=== PATIENT | female | born 1950 | race Caucasian/White ===

== ENCOUNTER → 2021-01-23 22:08 | Outpatient (CLI) | payer MEDICARE, OTHER, SELFPAY | PROVIDERS: PCP Registered Nurse; Referring Provider Registered Nurse; Visit Provider Registered Nurse | DX: G47.33 Obstructive sleep apnea (adult) (pediatric) (principal) | CPT/HCPCS: 95810 ==

== ENCOUNTER 2023-12-13 10:53 | Emergency (ER) | payer MEDICARE, SELFPAY ==
[2023-12-13 10:53] VITALS: BP 133/72; PULSE 76; RESP 14; TEMP 36.8; O2SAT 98
--- NOTE | 2023-12-13 11:37 | RAD_ITS ---
HISTORY: pain fall. TECHNIQUE: XR Foot Min 3 Views. COMPARISON: None. FINDINGS: BONES : Nondisplaced horizontal fracture of the fifth metatarsal base. Nondisplaced comminuted intra-articular fracture at the base of the fifth proximal phalanx with mild sclerosis. Generalized osteopenia. JOINTS: No dislocation. Mild degenerative change. SOFT TISSUES: Soft tissue swelling. RAD/Foot min 3 Views IMPRESSION: Nondisplaced fractures of the right fifth metatarsal base and proximal phalanx of the fifth toe. Electronically Signed: Maya Johnson MD at 12:22 EDT ,
--- NOTE | 2023-12-13 11:38 | RAD_ITS ---
HISTORY: pain fall. TECHNIQUE: XR Chest 2 Views. COMPARISON: None. FINDINGS: CARDIOMEDIASTINAL BORDERS: Cardiac silhouette within normal limits in size. Mediastinal contour unremarkable with calcification of the aortic knob. LUNGS: Minimal linear atelectasis or scarring in the lung bases. PLEURA: No pleural effusion or pneumothorax seen. OTHER: Mild degenerative changes of the osseous structures. Postoperative changes of the left upper quadrant. RAD/Chest PA and Lateral IMPRESSION: No acute cardiopulmonary process identified. Electronically Signed: Maya Johnson MD at 12:20 EDT ,
[2023-12-13 12:53] VITALS: BP 135/74; PULSE 89; RESP 16; O2SAT 99
--- NOTE | 2023-12-13 13:26 | EKG12_ITS ---
Test Reason : FALL Blood Pressure : / mmHG Vent. Rate : 067 BPM Atrial Rate : 067 BPM P-R Int : 190 ms QRS Dur : 096 ms QT Int : 432 ms P-R-T Axes : 041 004 025 degrees QTc Int : 456 ms Normal sinus rhythm Left ventricular hypertrophy with repolarization abnormality ( [place] product ) Abnormal ECG Confirmed by Wade Hanikns ([id number]), supervising editor trailer MASON FRYE ([id number]) on 12/15/2023 9:28:32 AM Referred By: Confirmed By:Wade Hankins
--- NOTE | 2023-12-13 13:38 | EDS_ITS ---
HPI History of Present Illness Chief Complaint: Lower Extremity Injury Narrative Narrative: Patient is a 73-year-old female with past medical history of hypertension, MARIBEL, hypothyroidism, type 2 diabetes who presented to the emergency department with a chief complaint of left foot pain and right rib pain. Patient states that yesterday she was outside letting her dogs out when she rolled her right ankle noted that she had immediate pain in her right foot and states that she fell and landed on her right ribs as well. She states that she not hit her head did not pass out did not lose consciousness she remembers the entire event. Patient denies any blood thinner medications. She states that she did not have chest pain, shortness of breath, lightheadedness, dizziness prior to her fall. Patient states that it hurts for her to bear weight on her right foot. [facility] Medical History Diabetes type 2, controlled Depression Hypothyroid HTN (hypertension) MARIBEL (obstructive sleep apnea) Home Medications ?Medication ?Instructions ?Recorded ?Last Taken ?Type ondansetron 4 mg disintegrating 4 mg PO Q6H PRN nausea and 12/13/23 Unknown Rx tablet vomiting #14 tabs oxycodone-acetaminophen 5 mg-325 1 tab PO Q6H PRN pain 3 days #12 12/13/23 Unknown Rx mg tablet tabs Allergy/AdvReac Type Severity Reaction Status Date / Time No Known Allergies Allergy Verified 12/13/23 10:54 Social History Smoking Status: Never smoker ROS ROS ED ROS Narrative Constitutional: Denies any fevers, chills, headaches, lightness, dizziness Eyes: Denies change in vision double vision blurry vision Cardiovascular: Denies chest pain or palpitations Respiratory: Denies coughing wheezing shortness of breath Abdomen: Denies abdominal pain nausea vomit diarrhea : Denies any urinary symptoms Neurological: Denies numbness, weakness, tingling Musculoskeletal: Complains of right foot pain as well as right rib pain as noted above Skin: States that she does have some bruising noted to her left elbow from a previous fall denies any or other rashes or lesions EXAM Physical Exam Narrative Exam Narrative: General: Patient lying in bed rest comfortably did not appear to be in acute distress Head: Atraumatic, normocephalic Eyes: PERRL bilateral, EOMI bilateral, no conjunctival injection noted Neck: Soft, supple, trachea midline Cardiovascular: Regular rate and rhythm no murmurs gallops rubs noted Respiratory: Clear to auscultation bilaterally no rales rhonchi or wheeze noted Abdomen: Soft, nondistended, nontender to palpation, bowel sounds present #4 Musculoskeletal: Tenderness to palpation over the right lateral foot and right distal pinky toe. Patient has some tenderness palpation of the right rib cage all other bony prominences palpated and joints taken through full range of motion no pain elicited Extremities: DP pulses +2/4 in the bilateral lower extremities, radial pulses +2/4 in the bilateral upper extremities, no pedal edema noted exam Neurological: Patient was following commands knew that she was at [facility] year is 2023. Sensation grossly intact when compared bilaterally throughout her body Skin: Warm, dry, patient has ecchymosis noted of her lateral left elbow from a previous fall a few days ago she has some ecchymosis noted over the right lateral dorsal aspect of her foot. Const Vital Signs: 12/13/23 10:53 12/13/23 12:53 Temperature 98.3 F Temperature Source Temporal Pulse Rate 76 89 Respiratory Rate 14 16 Blood Pressure 133/72 H 135/74 H Blood Pressure Mean 92 94 Pulse Ox 98 99 Oxygen Delivery Method Room Air Room Air MDM MDM MDM Narrative Medical decision making narrative: Patient is a 73-year-old female who presented to the emerged part with a chief complaint of fall and twisting her right foot with right foot pain. Patient will have workup performed here on the differential diagnose includes but not limited to foot fracture, distal tibia fracture, lateral malleolus fracture, rib fractures. Once workup is obtained reviewed she will be reevaluated. Patient's x-ray of her chest showed no acute cardiopulmonary processes which was reviewed by myself and radiology. Patient's x-ray of her right foot was reviewed by myself and by radiology as well which showed a nondisplaced fracture of the right fifth metatarsal base and proximal phalanx of the fifth toe. Patient's EKG reviewed showed sinus rhythm rate of 67 beats per minutes nonspecific ST changes noted. Did discuss results with the patient and she will be given prescription for Percocet and Zofran. She is advised to use these for severe pain and do not operate anything under influence of these drugs. She was advised to take Tylenol for mild to moderate pain and use the narcotic for breakthrough pain. Patient was offered a walking boot she states that she has several leaves at home and states that she will need crutches which she will be ordered. Patient was given follow-up to podiatry and she was encouraged to follow-up with her family physician outpatient setting. She was advised to return with worsening symptoms or other concerns. She is agreeable this plan she would like to go home all question concerns answered discharged home in stable condition. Radiography Diagnostic Testing: Clinical Impression(s) from Imaging Studies Foot X-Ray 12/13/23 11:37 IMPRESSION: Nondisplaced fractures of the right fifth metatarsal base and proximal phalanx of the fifth toe. Electronically Signed: Maya Johnson MD at 12:22 EDT , Chest X-Ray 12/13/23 11:38 IMPRESSION: No acute cardiopulmonary process identified. Electronically Signed: Maya Johnson MD at 12:20 EDT , Discharge Plan Triage Chief Complaint: Lower Extremity Injury ED Provider: Sotero Lowe Dx/Rx/DC Orders Clinical Impression: Foot fracture, Rib pain on right side Prescriptions: New oxycodone-acetaminophen 5-325 mg tablet 1 tab PO Q6H PRN (Reason: pain) 3 Days Qty: 12 0RF ondansetron 4 mg tablet,disintegrating 4 mg PO Q6H PRN (Reason: nausea and vomiting) Qty: 14 0RF Primary Care Provider: Christine Maria NP Referrals: Christine Maria NP, [employer] ADMINISTRATOR-C [Primary Care Provider] - Tim Coffey DPM [Med Staff - Active Staff] - Activity Restrictions/Additional Instructions: When you get home apply boot that you already have. Use crutches to ambulate tolerated. Use Tylenol for mild to moderate pain and use the narcotic for severe pain take the Zofran with this. Follow-up with the case folder that you referred to as well as your primary care physician in the outpatient setting. Return with worsening symptoms or other concerns. Print Language: Bhutanese Disposition Disposition: Home, Self Care
[2023-12-13] MEDS: Ondansetron ODT 4 MG Tablet PO (13:51)
[2023-12-13] MEDS: HYDROcodone Bitartrate/Apap 5/325 Tablet PO (13:51)
[2023-12-13 14:00] VITALS: BP 128/74; PULSE 64; RESP 16; TEMP 36.6; O2SAT 99
== END 2023-12-13 14:02 | disposition home or self-care (01) ==
PROVIDERS: Emergency Provider Emergency Medicine; PCP Registered Nurse; Visit Provider Emergency Medicine
DX: S92.354A Nondisplaced fracture of fifth metatarsal bone, right foot, initial encounter for closed fracture (principal); E11.9 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s; S92.514A Nondisplaced fracture of proximal phalanx of right lesser toe(s), initial encounter for closed fracture; W18.30XA Fall on same level, unspecified, initial encounter; R07.81 Pleurodynia; I10 Essential (primary) hypertension; E03.9 Hypothyroidism, unspecified; G47.33 Obstructive sleep apnea (adult) (pediatric); F32.A Depression, unspecified; Z79.899 Other long term (current) drug therapy
CPT/HCPCS: 71046; 73630; 93005; 99283

== ENCOUNTER 2023-12-14 14:32 | Emergency (ER) | payer MEDICARE, SELFPAY ==
[2023-12-14 14:35] VITALS: BP 110/80; PULSE 95; RESP 18; TEMP 35.8; O2SAT 100
--- NOTE | 2023-12-14 15:38 | ED.VIS.LOWEX ---
HPI History of Present Illness Chief Complaint: Lower Extremity Injury Narrative Narrative: 73-year-old female seen in the emergency department yesterday, diagnosed with foot fracture status post fall presents with worsening foot pain. She states that she was diagnosed with a fracture of her fifth metatarsal, and of her fifth toe. She has been unable to bear weight on it. She thought she had a walking boot at home, but does not have any. Additionally, she has a walker, but has not been able to use it very well. She presents with worsening foot pain and bilateral rib pain. This was from a fall on both Thursday, and Thursday, 2 and 3 days ago. She states she has been unable to follow-up with podiatry or orthopedics, and states that she tried to arrange for orthopedics follow-up through the [facility], but was unable to until December. [facility] Medical History Diabetes type 2, controlled Depression Hypothyroid HTN (hypertension) MARIBEL (obstructive sleep apnea) Home Medications ?Medication ?Instructions ?Recorded ?Last Taken ?Type ondansetron 4 mg disintegrating 4 mg PO Q6H PRN nausea and 12/13/23 Unknown Rx tablet vomiting #14 tabs oxycodone-acetaminophen 5 mg-325 1 tab PO Q6H PRN pain 3 days #12 12/13/23 Unknown Rx mg tablet tabs Allergy/AdvReac Type Severity Reaction Status Date / Time No Known Allergies Allergy Verified 12/14/23 14:35 Social History Smoking Status: Never smoker ROS ROS ED ROS Narrative Constitutional: No fever, no chills. HEENT: No sore throat. No neck pain. No loss of vision. No rhinorrhea. Cardiovascular: Bilateral rib pain/chest pain. No palpitations. Right pedal edema. Respiratory: No cough, no shortness of breath. Abdominal: No abdominal pain. No nausea. No vomiting. Genitourinary: No dysuria. No hematuria. Musculoskeletal: No myalgias. Positive right foot pain. Unable to bear weight. Neurologic: No headaches. No dizziness. No lightheadedness. Skin: No rash. No change in color. Psychiatric: No depression. No anxiety. EXAM Physical Exam Narrative Exam Narrative: GCS 15. ABCs intact. Focused physical examination demonstrates regular rate and rhythm with no sternal tenderness or crepitance. Lungs are clear to auscultation bilaterally. Abdomen soft nontender with normoactive bowel sounds. Mild swelling right foot. No malleoli tenderness. Const Vital Signs: 12/14/23 14:35 Temperature 96.4 F L Temperature Source Temporal Pulse Rate 95 Respiratory Rate 18 Blood Pressure 110/80 Blood Pressure Mean 90 Pulse Ox 100 Oxygen Delivery Method Room Air MDM MDM MDM Narrative Medical decision making narrative: I reviewed the patient's prior ED visit and imaging. She does have nondisplaced fractures of both the base of the fifth metatarsal, and of the proximal phalanx of the fifth digit on her right foot. I did discuss with her dedicated rib x-rays bilaterally, but she had a chest x-ray yesterday which showed no evidence of pneumothorax or displaced rib fracture. Additionally, EKG was performed yesterday, and I have low concern for cardiac contusion. Patient states that her walker is not helpful, but I am hesitant to give her crutches given her fall risk. I will discuss patient with Dr. Calloway with podiatry to arrange follow-up and see if she should be placed in either a walking boot, postoperative shoe, or Ortho-Glass splint. In discussion with podiatry, patient will be placed in a boot arthrosis. She will be made nonweightbearing on her right foot. He agrees that she should continue use of her walker instead of crutches. She will continue ice and elevation at home. She was told that further narcotic pain medication should come from her primary care provider as she has been written for a few tablets/3 days and was last seen yesterday. I feel she can be discharged safely home with follow-up. Return instructions were reviewed. Disposition is discharged home in stable condition. History & Record Review Discussion w/independent historian: Patient Additional record(s) reviewed:: Prior ED visit Management Discussion w/another healthcare provider: Commercial Lending Vice President (Dr. Calloway) Discharge Plan Triage Chief Complaint: Lower Extremity Injury ED Provider: Benny Carr Dx/Rx/DC Orders Clinical Impression: Foot fracture, Rib pain on right side Instructions: ED Chest Wall Contusion, ED Fracture, Foot Prescriptions: No Action oxycodone-acetaminophen 5-325 mg tablet 1 tab PO Q6H PRN (Reason: pain) 3 Days Qty: 12 0RF ondansetron 4 mg tablet,disintegrating 4 mg PO Q6H PRN (Reason: nausea and vomiting) Qty: 14 0RF Primary Care Provider: Christine Maria NP Referrals: Wade Calloway DPM [Med Staff - Active Staff] - 5-7 Days Christine Maria NP, SENIOR DATA ANALYST-C [Primary Care Provider] - 2 Days Activity Restrictions/Additional Instructions: Follow-up with your primary care provider for more narcotic pain medication. Follow-up with podiatry within the next week. Call the office tomorrow for an appointment. Continue ice and elevation of your right foot. Do not bear weight on your right foot. Continue to use your walker. Print Language: Bangladeshi Disposition Disposition: Home, Self Care
[2023-12-14 16:51] VITALS: BP 122/72; PULSE 83; RESP 17; TEMP 36.7; O2SAT 100
== END 2023-12-14 16:58 | disposition home or self-care (01) ==
PROVIDERS: Emergency Provider Emergency Medicine; PCP Registered Nurse; Visit Provider Emergency Medicine
DX: S92.354A Nondisplaced fracture of fifth metatarsal bone, right foot, initial encounter for closed fracture (principal); E11.9 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s; S92.514A Nondisplaced fracture of proximal phalanx of right lesser toe(s), initial encounter for closed fracture; R07.81 Pleurodynia; W19.XXXA Unspecified fall, initial encounter; I10 Essential (primary) hypertension; E03.9 Hypothyroidism, unspecified; G47.33 Obstructive sleep apnea (adult) (pediatric)
CPT/HCPCS: 99282

== ENCOUNTER 2025-01-28 17:16 | Emergency (ER) | payer MEDICARE, SELFPAY ==
[2025-01-28 17:17] VITALS: BP 131/84; PULSE 90; RESP 18; TEMP 36.6; O2SAT 99
--- OUTSIDE RECORDS SUMMARY | 2025-01-28 17:53 | XMS RPT_ITS | CCD ---
Author Organization [facility] CliniSynh Care Team Providers Care Caustic Room Attendant Name Role Phone Aspen Delgado Unavailable Unavailab le Danny, Aspen Solis Unavailable Unavailab le Li, Alpa Ferraro Unavailable Unavailable DANNY, ASPEN R Unavailable Unavailable DANNY, ASPEN R Unavailable Unavailable Ferraro, Alpa Thersa Unavailable Unavailable DANNY, ASPEN R Unavailable Unavailable DANNY, ASPEN R Unavailable Unavailable Ferraro, Alpa Thersa Unavailable Unavailable ADNNY, ASPEN R Unavailable Unavailable DANNY, ASPEN R Unavailable Unavailable *SELF, REFERRED Unavailable Unavailable Ferraro, Alpa Thersa Unavailable Unavailable DANNY, ASPEN R Unavailable Unavailable DANNY, ASPEN R Unavailable Unavailable Ferraro, Alpa Thersa Unavailable Unavailable DANNY, ASPEN R Unavailable Unavailable *SELF, REFERRED Unavailable Unavailable Ferraro, Alap Thersa Unavailable Unavailable Ferraro, Alpa Thersa Unavailable Unavailable DANNY, ASPEN R Unavailable Unavailable Haagen PHOTOGRAPHIC INTELLIGENCE OFFICER.Christine ROCHA Primary Care Provider Haagen PHOTOGRAPHIC INTELLIGENCE OFFICER.Christine ROCHA Primary Care Provider Kaylen Lindsey DO Marie Unavailable Kurt Eli MD Unavailable Mauricio SAUNDERS, Saniya Unavailable [phone] Andrey Douglas RN, Homa Unavailable Rosalia HAHN Qi Unavailable Kurt Eli MD Unavailable Mauricio SAUNDERS, Saniya Unavailable Andrey Douglas RN, Homa Unavailable Haagen PHOTOGRAPHIC INTELLIGENCE OFFICER.Christine ROCHA Primary Care Provider Haagen PHOTOGRAPHIC INTELLIGENCE OFFICER.Christine ROCHA Primary Care Provider Kaylen Lindsey DO Marie Unavailable Sreedhar MCGRATH, Kurt Unavailable Halderman-Douglas PT, Saniya Unavailable ISABELA , DR. KAYLEN CABELLO Attending Un available HAMIRNA, JULI [facility] Primary Care Unavailable [facility], DR. KAYLEN CABELLO Referring Un available Sissen PSS, Boby Unavailable Unavailable Isabela , Kaylen Cabello Unavailable Sissen PSS, Boby Unavailable Unavailable Donavon Patrciia MD Unavailable Grater PHOTOGRAPHIC INTELLIGENCE OFFICER.CD REACTOR OPERATOR, Rafi Unavailable Halderman-Douglas PT, Saniya Unavailable Sissen PSS, Boby Unavailable Unavailable René RN, Jase Unavailable Donavon Patricia MD Unavailable Grater PHOTOGRAPHIC INTELLIGENCE OFFICER.CD REACTOR OPERATOR, Rafi Unavailable Haljinaman-Douglas PT, Saniya Unavailable René EDWARDS, Jase Unavailable Halderman-Douglas PT, Saniya Unavailable HAAGEN PHOTOGRAPHIC INTELLIGENCE OFFICER-[facility], [facility] Primary Care Physician Isabela , Kaylen Cabello Unavailable Sreedhar MCGRATH, Kurt Unavailable Halderman-Douglas PT, Saniya Unavailable Sissen PSS, Boby Unavailable Unavailable Halderman-Douglas PT, Saniya Unavailable Haagen PHOTOGRAPHIC INTELLIGENCE OFFICER.[facility], [facility] Primary Care Provider WESLY FARMER Attending Unavailable WESLY FARMER Admitting Unavailable CATHY CHRISTINE Primary Care Unavailable YAMILEX SANTOS Referring Unavailable Donavon Patricia MD Unavailable Grater PHOTOGRAPHIC INTELLIGENCE OFFICER.CD REACTOR OPERATOR, Rafi Unavailable Halderman-Douglas PT, Saniya Unavailable Benny Carr Attending Unavailable Haagen, Christine Primary Care Unavailable Haagen, Christine Primary Care Unavailable Sotero Lowe Attending Unavailable René EDWARDS, Jase Schneider Unavailable Haagen PHOTOGRAPHIC INTELLIGENCE OFFICER.CD REACTOR OPERATOR, Christine Primary Care Provider Suppan PHOTOGRAPHIC INTELLIGENCE OFFICER.CD REACTOR OPERATOR, Christine A Unavailable [phone] Dao Caraballo MD Unavailable René EDWARDS, aJse Schneider Unavailable Suppan PHOTOGRAPHIC INTELLIGENCE OFFICER.CD REACTOR OPERATOR, Christine A Unavailable Suppan PHOTOGRAPHIC INTELLIGENCE OFFICER.JOSEFINA, Christine A Unavailable Nba EDWARDS, Lory Unavailable Nba EDWARDS, Lory Unavailable ARIADNE GOMEZ Referring Unavailable HAAGEN, CHRISTINE Primary Care Unavailable HAAGEN, CHRISTINE Referring Unavailable HAAGEN, CHRISTINE Primary Care Unavailable DELFIN KERR Referring Unavailable HAAGEN, CHRISTNIE Primary Care Unavailable SURACE, PETER Referring Unavailable HAAGEN, CHRISTINE Primary Care Unavailable SURACE, PETER Referring Unavailable HAAGEN, CHRISTINE Primary Care Unavailable HAAGEN, CHRISTINE Referring Unavailable HAAGEN, CHRISTINE Primary Care Unavailable GANTA, SNOW Referring Unavailable HAAGEN, CHRISTINE Primary Care Unavailable CURTIS FERGUSON Attending Unavailable HAAGEN, CHRISTINE Primary Care Unavailable HAAGEN, CHRISTINE Primary Care Unavailable ISH HIGGINS Referring Unavailabl e HAAGEN, CHRISTINE Referring Unavailable HAAGEN, CHRISTINE Primary Care Unavailable GANTA, SNOW Attending Unavailable HAAGEN, CHRISTINE Primary Care Unavailable HAAGEN, CHRISTINE Primary Care Unavailable DELFIN KERR Referring Unavailable DELFIN KERR Attending Unavailable HAAGEN, CHRISTINE Primary Care Unavailable MARIMAR WILCOX Attending Unavailable LORETA PANDEY Attending Unavailable HAAGEN, CHRISTINE Primary Care Unavailable HAAGEN, CHRISTINE Primary Care Unavailable JUAN JOSE KEYS Attending Unava ilable HAAGEN, CHRISTINE Referring Unavailable AFSANEH MAHAN Attending Unavailable HAAGEN, CHRISTINE Primary Care Unavailable HAAGEN, CHRISTINE Primary Care Unavailable DELFIN KERR Referring Unavailable DELFIN KERR Attending Unavailable HAAGEN, CHRISTINE Primary Care Unavailable GANTA, SNOW Attending Unavailable HAAGEN, CHRISTINE Primary Care Unavailable GANTA, SNOW Attending Unavailable SELF Referring Unavailable HAAGEN, CHRISTINE Primary Care Unavailable HAAGEN, CHRISTINE Referring Unavailable HAAGEN, CHRISTINE Primary Care Unavailable HAAGEN, CHRISTINE Primary Care Unavailable MARIMAR WILCOX Attending Unavailable HAAGEN, CHRISTINE Primary Care Unavailable HAAGEN, CHRISTINE Referring Unavailable HAAGEN, CHRISTINE Primary Care Unavailable HAAGEN, CHRISTINE Attending Unavailable HAAGEN, CHRISTINE Primary Care Unavailable DELFIN KERR Referring Unavailable HAAGEN, CHRISTINE Primary Care Unavailable DELFIN KERR Attending Unavailable HAAGEN, CHRISTINE Primary Care Unavailable DONAVON PATRICIA Attending Unavailable HAAGEN, CHRISTINE Primary Care Unavailable DELFIN KERR Referring Unavailable HAAGEN, CHRISTINE Primary Care Unavailable ANTHONY ABRAHAM Referring Unavailable HAAGEN, CHRISTINE Primary Care Unavailable HAAGEN, CHRISTINE Primary Care Unavailable HAAGEN, CHRISTINE Primary Care Unavailable ISH HIGGINS Attending Unavailabl e ISH HIGGINS Admitting Unavailabl e ISH HIGGINS Attending Unavailabl e HAAGEN, CHRISTINE Primary Care Unavailable ISH HIGGINS Attending Unavailabl e HAAGEN, CHRISTINE Primary Care Unavailable ISH HIGGINS Attending UnavailDELFIN Silva Referring Unavailable HAAGEN, CHRISTINE Primary Care Unavailable KELSIE-LINDSEY YIRKA Referring Unavailable HAAGEN, CHRISTINE Primary Care Unavailable KELSIE-LINDSEY YIRKA Referring Unavailable HAAGEN, CHRISTINE Primary Care Unavailable ISH HIGGINS Attending Unavailabl e HAAGEN, CHRISTINE Primary Care Unavailable Allergies Allergy Classification Reported Allergen(s) Allergy Type Date of Onset Reaction(s) Facility Acetaminophen / HYDROcodone (4 sources) Acetaminophen / HYDROcodone Drug Allergy 0 Itching [facility] (20 sources) Acetaminophen / HYDROcodone; Translations: [acetaminophen-hyd rocodone] Drug Allergy 0 Itching, Itching (finding) [facility] Medications Current Medications Medication Drug Class(es) Dates Sig (Normalized) Sig (Original) acetaminophen 500 mg oral tablet (20 sources) Start: 10-11-2023 End: 10-25-2023 take 2 tablets by mouth every eight hours as needed for pain acetaminophen (TYLENOL EXTRA STRENGTH) 500 mg tablet Indications: Pain of right hip , Rib pain on right side Take 2 tablets by mouth every 8 hours as needed for pain for up to 14 days. 42 tablet 0 10/11/2023 10/25/2023 Active Start: 07-28-2023 End: 08-12-2023 take 2 tablets by mouth every eight hours acetaminophen (TYLENOL) 500 mg tablet Take 2 tablets by mouth every 8 hours. 30 tablet 0 07/28/2023 08/12/2023 Discontinued (Course of therapy completed) Start: 11-04-2022 Tylenol Extra Strength 500 mg oral tablet Dose : 1,000 mg = 2 tab(s), Oral, q6hr, PRN as needed for pain, 0 Refill(s) Start Date: 11/04/22 Status: Ordered Start: 09-16-2022 End: 02-02-2023 take 2 tablets by mouth every eight hours as needed acetaminophen (TYLENOL) 500 mg tablet Take 2 tablets by mouth every 8 hours as needed for pain. 90 tablet 09/16/2022 02/02/2023 Discontinued Start: 07-08-2022 take 2 tablets by mo uth every eight hours as needed acetaminophen (TYLENOL) 500 mg tablet Take 2 tablets by mouth every 8 hours as needed for pain. 90 tablet 0 07/08/2022 Active Start: 11-19-2021 End: 01-29-2022 take 2 tablets by mouth every eight hours as needed acetaminophen (TYLENOL) 500 mg tablet Take 2 tablets by mouth every 8 hours as needed for pain. 90 tablet 0 11/19/2021 01/29/2022 Discontinued Comment on above: Take 2 tablets by mo uth every 8 hours as needed for pain. acetaminophen 325 mg / oxyCODONE hydrochloride 5 mg oral tablet (13 sources) Opioid Agonist Start: 12-15-2023 End: 12-22-2023 take 1 tablet by mouth every six hours as needed for pain oxyCODONE-acetamino phen (PERCOCET) 5-325 mg tablet Indications: Closed fracture of right foot with routine healing, subsequent encounter Take 1 tablet by mouth every 6 hours as needed for pain for up to 7 days. 28 tablet 12/15/2023 12/22/2023 Active Start: 09-12-2023 End: 09-17-2023 take 1 tablet by mouth every eight hours as needed for pain oxyCODONE-acetaminophen (PERCOCET) 5-325 mg tablet Indications: Closed nondisplaced fracture of proximal phalanx of lesser toe of right foot, initial encounter Take 1 tablet by mouth every 8 hours as needed for pain for up to 5 days. 15 tablet 0 09/12/2023 09/17/2023 Active Start: 12-01-2022 End: 12-06-2022 acetaminophen-oxyCODONE 325 mg-5 mg oral tablet Dose = 1 tab(s), Oral, TID, PRN Pain, scale 4-10, X 5 day(s), # 15 tab(s), 0 Refill(s), [facility]acy: [id number], Postoperative pain, 157.5, cm, 11/28/22 3:25:00 EDT, Height, 63.6, kg, 11/28/22 3:25:00 EDT, Dosing Weight Start Date: 12/01/22 Stop Date: 12/06/22 Status: Ordered Start: 11-26-2022 End: 12-03-2022 take 1 tablet by mouth every six hours as needed for pain Percocet 5 mg-325 mg oral tablet Dose = 1 tab(s), Oral, q6h, PRN Pain, X 7 day(s), # 28 tab(s), 0 Refill(s), Pharmacy: [facility], Postoperative pain, 157.5, cm, 11/26/22 9:24:00 EDT, Height, 64.1, kg, 11/26/22 9:24:00 EDT, Dosing Weight Start Date: 11/26/22 Stop Date: 12/03/22 Status: Ordered Start: 03-05-2021 End: 10-11-2021 take 1 tablet by mouth every eight hours as needed for pain oxyCODONE-acetaminophen (PERCOCET) 5-325 mg tablet Indications: Closed fracture of multiple ribs of left side with routine healing, subsequent encounter Take 1 tablet by mouth every 8 hours as needed for pain. 21 tablet 0 03/05/2021 10/11/2021 Discontinued Comment on above: Take 1 tablet by vanessa every 8 hours as needed for pain. albuterol MDI (90 mcg/inh) CFC free inhalation aerosol (5 sources) Start: 11-12-2022 take 1 puff(s) by inhalation every four hours as needed for wheezing albuterol MDI (90 mcg/inh) CFC free inhalation aerosol 1 puff(s), Inhalation, q4h, PRN as needed for wheezing, # 18 gram(s), 0 Refill(s) Start Date: 11/12/22 Status: Ordered Apple Cider Vinegar (20 sources) Start: 11-21-2021 take 1 capsule by mouth once daily APPLE CIDER VINEGAR ORAL Take 1 capsule by mouth once daily. Combined with the tumeric 11/21/2021 Active Start: 11-21-2021 take 1 capsule by mo uth once daily APPLE CIDER VINEGAR ORAL Take 1 capsule by mouth once daily. Combined with the tumeric 0 11/21/2021 Active Start: 11-21-2021 take 1 capsule by mo uth once daily APPLE CIDER VINEGAR ORAL Take 1 capsule by mouth once daily. 450 mg capsule 0 11/21/2021 Suspended Start: 11-21-2021 take 1 capsule by mo uth once daily APPLE CIDER VINEGAR ORAL Take 1 capsule by mouth once daily. 450 mg capsule 0 11/21/2021 Active Comment on above: Take 1 capsule by mo uth once daily. 450 mg capsule atorvastatin 20 mg oral tablet (20 sources) HMG-CoA Reductase Inhibitor Start: 06-09-19 take 1 tablet by mouth once daily at bedtime for hyperlipidemia atorvastatin (LIPITOR) 20 mg tablet Take 1 tablet by mouth daily at bedtime. For cholesterol. 90 tablet 3 06/08/2024 Active Start: 01-08-2022 End: 03-07-2024 take 1 tablet by mouth once daily at bedtime for hyperlipidemia atorvastatin (LIPITOR) 20 mg tablet Take 1 tablet by mouth daily at bedtime. For cholesterol. 90 tablet 1 03/08/2024 Active Start: 04-15-2021 take 1 tablet by vanessa th once daily at bedtime for hyperlipidemia atorvastatin (LIPITOR) 20 mg tablet Take 1 tablet by mouth daily at bedtime. For cholesterol. 90 tablet 1 04/15/2021 Active Start: 12-28-2020 End: 03-28-2021 take 1 tablet by mouth once daily at bedtime for hyperlipidemia atorvastatin (LIPITOR) 20 mg tablet Take 1 tablet by mouth daily at bedtime. For cholesterol. 90 tablet 1 12/28/2020 03/28/2021 Discontinued Comment on above: Take 1 tablet by vanessa th daily at bedtime. For cholesterol. benzonatate 100 mg oral capsule (1 source) Non-narcotic Antitussive Start: 03-21-20 End: 03-28-19 take 1 capsule by mouth every eight hours as needed benzonatate (TESSALON PERLES) 100 mg capsule Take 1 capsule by mouth three times daily as needed for up to 7 days. 21 capsule 0 03/21/2022 03/28/2022 Active Comment on above: Take 1 capsule by mo uth three times daily as needed for up to 7 days. biotin 5 mg oral tablet (11 sources) Start: 09-22-19 take 1 tablet by mouth once daily biotin 5 mg tab Take 1 tablet by mouth once daily. 09/21/2024 Active Blood-Glucose Sensor (FREESTYLE JAUN 3 PLUS SENSOR) guido (20 sources) Start: 05-11-19 Blood-Glucose Sensor (FREESTYLE JAUN 3 PLUS SENSOR) guido 1 Each every 2 weeks. CHANGE sensor every 15 days. USE FOR CONTINUOUS GLUCOSE MONITORING. Dx: E11.9 RISK FOR HYPOGLYCEMIA. 6 Each 3 05/11/2024 Active 24 hr buPROPion hydrochloride 300 mg extended release oral tablet (20 sources) Aminoketone Start: 06-09-19 take 1 tablet by mouth once daily buPROPion XL (WELLBUTRIN XL) 300 mg 24 hr tablet Indications: major depressive disorder Take 1 tablet by mouth once daily. 90 tablet 3 06/08/2024 Active Start: 09-28-2023 take 1 tablet by vanessa th once daily buPROPion XL (WELLBUTRIN XL) 300 mg 24 hr tablet Indications: major depressive disorder Take 1 tablet by mouth once daily. 90 tablet 1 09/28/2023 Active Start: 05-27-2022 take 1 tablet by vanessa th every hour, then take 1 tablet by mouth every twenty-four hours buPROPion 300 mg/24 hours (XL) oral tablet, extended release Dose : 300 mg = 1 tab(s), Oral, q24h, 0 Refill(s) Start Date: 05/27/22 Status: Ordered Start: 01-14-2021 End: 09-26-2023 take 1 tablet by mouth once daily buPROPion XL (WELLBUTRIN XL) 300 mg 24 hr tablet Indications: major depressive disorder Take 1 tablet by mouth once daily. 90 tablet 1 06/04/2022 03/11/2023 Discontinued Comment on above: Take 1 tablet by vanessa th once daily. calcium citrate 1040 mg oral tablet (20 sources) Start: 11-12-2022 calcium (as calcium citrate) 250 mg oral tablet Dose : 250 mg = 1 tab(s), Oral, qAM, # 60 tab(s), 0 Refill(s) Start Date: 11/12/22 Status: Ordered Start: 11-12-2022 End: 10-05-2024 Calcium Citrate 250 mg calci um tab Take 250 mg by mouth. 11/12/2022 10/05/2024 Discontinued (Other) Comment on above: Take 250 mg by mouth . coffee xt/phosphatidyl serine (NEURIVA ORIGINAL ORAL) (20 sources) Start: 07-11-2022 take 2 tablets by mouth once daily coffee xt/phosphatidyl serine (NEURIVA ORIGINAL ORAL) Take 2 tablets by mouth once daily. 07/11/2022 Active Start: 07-11-2022 take 2 tablets by mo uth once daily coffee xt/phosphatidyl serine (NEURIVA ORIGINAL ORAL) Take 2 tablets by mouth once daily. 0 07/11/2022 Suspended Start: 07-11-2022 take 2 tablets by mo uth once daily coffee xt/phosphatidyl serine (NEURIVA ORIGINAL ORAL) Take 2 tablets by mouth once daily. 0 07/11/2022 Active Comment on above: Take 2 tablets by mo uth once daily. cyclobenzaprine hydrochloride 10 mg oral tablet (14 sources) Muscle Relaxant Start: 10-24-19 End: 11-23-19 take 1 tablet by mouth three times daily as needed for muscle spasms cyclobenzaprine (FLEXERIL) 10 mg tablet Indications: Acute muscle stiffness of neck Take 1 tablet by mouth three times daily as needed for muscle spasm. 30 tablet 0 10/23/2021 11/22/2021 Suspended Start: 07-29-2021 End: 10-23-2021 take 1 tablet by mouth twice daily as needed for muscle spasms cyclobenzaprine (FLEXERIL) 10 mg tablet Indications: Chronic right-sided low back pain without sciatica Take 1 tablet by mouth twice daily as needed for muscle spasm. 30 tablet 0 07/29/2021 10/23/2021 Discontinued Comment on above: Take 1 tablet by vanessa th twice daily as needed for muscle spasm. Take 1 tablet by vanessa th three times daily as needed for muscle spasm. 0.5 ml dulaglutide 1.5 mg/ml auto-injector (20 sources) GLP-1 Receptor Agonist Start: 07-28-19 End: 07-28-19 inject 0.75 mg by subcutaneous injection every week, then inject 0.75 mg by subcutaneous injection every week dulaglutide (TRULICITY) 0.75 mg/0.5 mL pen injector Indications: Controlled type 2 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, without long-term current use of insulin (HCC) Inject 0.75 mg subcutaneously one time a week. Inject 0.75 mg once weekly 6 mL 3 07/27/2024 07/27/2025 Active Start: 10-12-2023 End: 05-11-2024 dulaglutide (TRULICITY) 0.75 mg/0.5 mL pen injector Indications: Controlled type 2 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, without long-term current use of insulin (HCC) Inject 0.75 mg once weekly. PT ASST through [employer] 3 mL 3 05/11/2024 Active Start: 10-23-2020 End: 10-09-2023 inject 0.75 mg by subcutaneous injection every week dulaglutide (TRULICITY) 0.75 mg/0.5 mL pen injector Inject 0.75 mg subcutaneously one time a week. Inject dose once per week. Discard Pen After 12 Each 3 10/23/2020 05/12/2022 Discontinued Comment on above: Inject 0.75 mg subcu taneously one time a week. Inject dose once per week. Discard Pen After esomeprazole 40 mg delayed release oral capsule (20 sources) Proton Pump Inhibitor Start: 09-28-19 End: 08-11-19 take 1 capsule by mouth twice daily esomeprazole (NEXIUM) 40 mg capsule Indications: Generalized postprandial abdominal pain TAKE ONE CAPSULE BY MOUTH twice daily. 180 capsule 1 08/10/2024 Active Start: 01-14-2021 End: 09-26-2023 take 1 capsule by mouth twice daily esomeprazole (NEXIUM) 40 mg capsule Indications: Generalized postprandial abdominal pain TAKE ONE CAPSULE BY MOUTH twice daily. 180 capsule 1 06/04/2022 06/14/2023 Discontinued Comment on above: TAKE ONE CAPSULE BY MOUTH twice daily. famotidine 20 mg oral tablet (20 sources) Histamine-2 Receptor Antagonist Start: take 1 tablet by mouth every twelve hours as needed for gastroesophageal reflux disease and gastroesophageal reflux disease famotidine (PEPCID) 20 mg tablet Indications: Gastroesophageal reflux disease, unspecified whether esophagitis present Take 1 tablet by mouth two times a day as needed (GERD). 180 tablet 3 06/08/2024 Active Start: 04-21-2024 take 1 tablet by vanessa th every twelve hours as needed for gastroesophageal reflux disease and gastroesophageal reflux disease famotidine (PEPCID) 20 mg tablet Indications: Gastroesophageal reflux disease, unspecified whether esophagitis present Take 1 tablet by mouth two times a day as needed (GERD). 180 tablet 1 04/21/2024 Active Start: 07-29-2022 End: 04-19-2024 take 1 tablet by mouth every twelve hours as needed for gastroesophageal reflux disease and gastroesophageal reflux disease famotidine (PEPCID) 20 mg tablet Indications: Gastroesophageal reflux disease, unspecified whether esophagitis present Take 1 tablet by mouth two times a day as needed (GERD). 180 tablet 1 08/27/2023 04/19/2024 Discontinued Comment on above: Take 1 tablet by vanessa th twice daily as needed. [The details of the medication are not available because there are pending changes by a home health clinician.] Take 1 tablet by vanessa th twice daily as needed (GERD). Take 1 tablet by vanessa th two times a day as needed (GERD). ferrous sulfate 325 mg oral tablet (13 sources) Start: 07-09-2022 End: 08-08-2022 take 1 tablet by mouth once daily at lunch ferrous sulfate 325 mg (65 mg iron) tablet Take 1 tablet by mouth daily with lunch. 30 tablet 0 07/09/2022 08/08/2022 Active Comment on above: Take 1 tablet by vanessa th daily with lunch. FLUoxetine 40 mg oral capsule (20 sources) Serotonin Reuptake Inhibitor Start: 08-30-2024 take 1 capsule by mouth twice daily FLUoxetine (PROZAC) 40 mg capsule Indications: Moderate episode of recurrent major depressive disorder (HCC) Take 1 capsule by mouth two times a day. 180 capsule 1 08/30/2024 Active Start: 08-19-2024 take 1 capsule by mo uth twice daily FLUoxetine (PROZAC) 40 mg capsule Indications: Moderate episode of recurrent major depressive disorder (HCC) Take 1 capsule by mouth two times a day. 180 capsule 1 08/19/2024 Active Start: 12-15-2023 End: 08-17-2024 take 1 capsule by mouth twice daily FLUoxetine (PROZAC) 40 mg capsule Indications: Moderate episode of recurrent major depressive disorder (HCC) Take 1 capsule by mouth two times a day. 180 capsule 1 12/15/2023 08/17/2024 Discontinued Start: 05-27-2022 FLUoxetine 20 mg oral capsule Dose : 60 mg = 3 cap(s), Oral, qAM, TAKE THREE (3) CAPSULES BY MOUTH EVERY DAY Start Date: 05/27/22 Status: Ordered Start: 05-12-2022 End: 12-15-2023 take 3 capsules by mouth once daily FLUoxetine (PROZAC) 20 mg capsule Take 3 capsules by mouth once daily. 270 capsule 1 06/04/2022 06/24/2022 Discontinued Start: 09-03-2020 End: 05-12-2022 FLUoxetine (PROZAC) 20 mg ca psule Indications: Moderate episode of recurrent major depressive disorder (HCC) [The details of the medication are not available because there are pending changes by a home health clinician.] 270 capsule 1 09/03/2020 05/12/2022 Discontinued Start: 09-03-2020 take 3 capsules by m outh once daily FLUoxetine (PROZAC) 20 mg capsule Indications: Moderate episode of recurrent major depressive disorder (HCC) Take 3 capsules by mouth once daily. 270 capsule 1 09/03/2020 Active Comment on above: Take 3 capsules by m outh once daily. [The details of the medication are not available because there are pending changes by a home health clinician.] levothyroxine sodium 0.1 mg oral tablet (20 sources) l-Thyroxine Start: 08-31-19 take 1 tablet by mouth once daily levothyroxine (SYNTHROID) 100 mcg tablet Indications: Other specified hypothyroidism Take 1 tablet by mouth once daily. 90 tablet 3 08/30/2024 Active Start: 08-19-2024 take 1 tablet by vanessa th once daily levothyroxine (SYNTHROID) 100 mcg tablet Indications: Other specified hypothyroidism Take 1 tablet by mouth once daily. 90 tablet 3 08/19/2024 Active Start: 05-27-2022 levothyroxine 100 mcg (0.1 mg) oral tablet Dose : 100 mcg = 1 tab(s), Oral, qDay, # 30 tab(s), 0 Refill(s) Start Date: 05/27/22 Status: Ordered Start: 01-25-2021 End: 08-17-2024 take 1 tablet by mouth once daily levothyroxine (SYNTHROID) 100 mcg tablet Indications: Other specified hypothyroidism Take 1 tablet by mouth once daily. 90 tablet 3 07/19/2024 08/17/2024 Discontinued Comment on above: Take 1 tablet by vanessa th once daily. lisdexamfetamine dimesylate 10 mg oral capsule (6 sources) Central Nervous System Stimulant Start: End: take 1 capsule by mouth once daily lisdexamfetamine (VYVANSE) 10 mg capsule Indications: Attention deficit hyperactivity disorder (ADHD), combined type Take 1 capsule by mouth once daily for 30 days. 30 capsule 10/13/2024 Active lisinopril 20 mg oral tablet (20 sources) Angiotensin Converting Enzyme Inhibitor Start: take 1 tablet by mouth once daily lisinopril (ZESTRIL) 20 mg tablet Indications: Essential hypertension Take 1 tablet by mouth once daily. 90 tablet 3 06/08/2024 Active Start: 04-21-2024 take 1 tablet by vanessa th once daily lisinopril (ZESTRIL) 20 mg tablet Indications: Essential hypertension Take 1 tablet by mouth once daily. 90 tablet 1 04/21/2024 Active Start: 03-11-2023 End: 04-19-2024 take 1 tablet by mouth once daily lisinopril (ZESTRIL) 20 mg tablet Indications: Essential hypertension Take 1 tablet by mouth once daily. 90 tablet 1 08/27/2023 04/19/2024 Discontinued Start: 07-29-2021 End: 12-29-2022 take 1 tablet by mouth once daily lisinopril (ZESTRIL, PRINIVIL) 10 mg tablet Indications: Essential hypertension Take 1 tablet by mouth once daily. 90 tablet 3 07/29/2021 07/09/2022 Discontinued Start: 01-14-2021 End: 07-29-2021 take 0.5 tablet by mouth once daily lisinopril (ZESTRIL, PRINIVIL) 20 mg tablet Indications: Essential hypertension Take 0.5 tablets by mouth once daily. 90 tablet 1 04/15/2021 07/29/2021 Discontinued Comment on above: Take 1 tablet by vanessa th once daily. Take 0.5 tablets by mouth once daily. 50/50 release 24 hr methylphenidate hydrochloride 20 mg extended release oral capsule (4 sources) Central Nervous System Stimulant Start: 11-24-19 End: 12-24-19 take 1 capsule by mouth once daily methylphenidate LA (RITALIN LA) 20 mg biphasic capsule Indications: Attention deficit Take 1 capsule by mouth once daily for 30 days. 30 capsule 11/23/2024 12/23/2024 Active Start: 11-02-2024 End: 11-23-2024 take 1 tablet by mouth once daily methylphenidate (RITALIN) 10 mg tablet Indications: Attention deficit hyperactivity disorder (ADHD), unspecified ADHD type Take 1 tablet by mouth once daily for 14 days. 14 tablet 11/02/2024 11/23/2024 Discontinued MULTI-VITAMIN ORAL (20 sources) take 1 tablet by vanessa th once daily MULTI-VITAMIN ORAL Take 1 tablet by mouth once daily. Takes bariatric multivitamin daily (contains extra calcium and iron) Active take 1 tablet by mouth once mike y MULTI-VITAMIN ORAL Take 1 tablet by mouth once daily. Takes bariatric multivitamin daily Active take 1 tablet by mouth once mike y MULTI-VITAMIN ORAL Take 1 tablet by mouth once daily. Takes bariatric multivitamin daily 0 Suspended take 1 tablet by mouth once mike y MULTI-VITAMIN ORAL Take 1 tablet by mouth once daily. Takes bariatric multivitamin daily 0 Active Comment on above: Take 1 tablet by vanessa th once daily. Takes bariatric multivitamin daily Multiple Vitamins oral capsule (5 sources) Start: 3 take 1 capsule by mouth once daily Multiple Vitamins oral capsule Dose = 1 cap(s), Oral, Daily, Bariatric formula, 0 Refill(s) Start Date: 11/12/22 Status: Ordered mupirocin 0.02 mg/mg topical ointment (11 sources) RNA Synthetase Inhibitor Antibacterial Start: 3 mupirocin 2% topical ointment Apply 1 manjinder, Topical, BID, Bilateral intranasal application twice daily for 5 days prior to surgery &/or as many days leading up to surgery as possible due to surgical urgency/scheduling. Send to patient's preferred pharmacy., Apply to: nostril, each, # 22 gram(s), 0 Refill(s), Pharmacy: [id number], Ointment, 155.5, cm, 11/12/22 14:04:00 EDT, Height, 65.2, kg, 11/12/22 14:04:00 EDT, Dosing Weight Start Date: 11/12/22 Status: Ordered Start: 05-29-2022 End: 06-20-2022 mupirocin (BACTROBAN) 2 % oi ntment Indications: Preoperative examination Apply 0.5 inch with cotton swab (Q-tip) to each nostril in the morning and evening for 5 days prior to and including day of surgery. 22 g 05/29/2022 06/20/2022 Comment on above: Apply 0.5 inch with cotton swab (Q-tip) to each nostril in the morning and evening for 5 days prior to and including day of surgery. Neuriva Brain performance Plus (3 sources) Start: 3 take 2 tablets by mouth once daily Neuriva Brain performance Plus 2 tab, Oral, qDay, 0 Refill(s) Start Date: 11/04/22 Status: Ordered predniSONE 10 mg oral tablet (1 source) Start: 2 End: 3 predniSONE (DELTASONE) 10 mg tablet Take 4 tabs daily for 3 days, then 2 tabs daily for 3 days, then 1 tab daily for 3 days with food. 21 tablet 0 03/21/2022 03/30/2022 Active Comment on above: Take 4 tabs daily fo r 3 days, then 2 tabs daily for 3 days, then 1 tab daily for 3 days with food. traMADol hydrochloride 50 mg oral tablet (6 sources) Opioid Agonist Start: 4 End: 4 take 1 tablet by mouth every eight hours as needed traMADol (ULTRAM) 50 mg tablet Indications: Post-op pain Take 1 tablet by mouth every 8 hours as needed for up to 10 days. 15 tablet 0 07/28/2023 08/07/2023 Active traZODone hydrochloride 100 mg oral tablet (20 sources) Serotonin Reuptake Inhibitor Start: take 2 tablets by mouth once daily at bedtime traZODone (DESYREL) 100 mg tablet Take 2 tablets by mouth daily at bedtime. 180 tablet 3 06/08/2024 Active Start: 05-27-2022 End: 03-07-2024 take 2 tablets by mouth once daily at bedtime traZODone (DESYREL) 100 mg tablet Take 2 tablets by mouth daily at bedtime. 180 tablet 1 03/07/2024 Active Start: 11-19-2020 End: 04-09-2022 take 2 tablets by mouth once daily at bedtime traZODone (DESYREL) 100 mg tablet Take 2 tablets by mouth daily at bedtime. 180 tablet 1 10/11/2021 04/09/2022 Comment on above: Take 2 tablets by mo uth daily at bedtime. Take 200 mg by mouth daily at bedtime. turmeric extract 500 mg oral capsule (5 sources) Start: 11-05-19 take 4 capsules by mouth once daily in the morning turmeric 500 mg oral capsule 4 cap(s), Oral, qAM, 0 Refill(s) Start Date: 11/04/22 Status: Ordered 24 hr venlafaxine 150 mg extended release oral capsule (18 sources) Serotonin and Norepinephrine Reuptake Inhibitor Start: 06-26-19 End: 11-30-19 take 1 capsule by mouth once daily venlafaxine ER (EFFEXOR XR) 150 mg 24 hr capsule Take 1 capsule by mouth once daily. 06/26/2011 11/30/2023 Discontinued (Course of therapy completed) Completed/Discontinued Medications Medication Drug Class(es) Dates Sig (Normalized) Sig (Original) [id number] 200 actuat albuterol 0.09 mg/actuat metered dose inhaler (20 sources) beta2-Adrenergic Agonist Start: 03-21-2022 End: 05-13-2022 take 2 puff(s) by inhalation every six hours as needed for wheezing albuterol HFA (PROVENTIL HFA, VENTOLIN HFA) 90 mcg/actuation inhaler Inhale 2 Puffs as instructed every 6 hours as needed for wheezing/shortness of breath. 1 Each 03/21/2022 05/13/2022 Discontinued End: 06-24-2022 albuterol HFA (PROVENTIL HFA , VENTOLIN HFA) 90 mcg/actuation inhaler Inhale 2 Puffs as instructed as needed for wheezing/shortness of breath. 06/24/2022 Discontinued Comment on above: Inhale 2 Puffs as instructed every 6 atif rs as needed for wheezing/shortness of breath. Inhale 2 Puffs as in structed as needed for wheezing/shortness of breath. Apple cider (5 sources) Start: 11-13-19 Apple cider Apple cider, 450 ng, Oral, qAM, 0 Refill(s), 70.5 Start Date: 11/12/22 Status: Ordered ascorbic acid 500 mg oral tablet (20 sources) Vitamin C Start: 09-17-19 End: 11-18-19 take 1 tablet by mouth twice daily at mealtime ascorbic acid, vitamin C, (VITAMIN C) 500 mg tablet Take 1 tablet by mouth twice daily with meals for 28 doses. 28 tablet 09/16/2022 11/17/2022 Discontinued Start: 07-08-2022 End: 07-23-2022 take 1 tablet by mouth twice daily at mealtime ascorbic acid, vitamin C, (VITAMIN C) 500 mg tablet Take 1 tablet by mouth twice daily with meals for 28 doses. 28 tablet 0 07/08/2022 Active Start: 11-19-2021 End: 02-12-2022 take 1 tablet by mouth twice daily at mealtime ascorbic acid, vitamin C, (VITAMIN C) 500 mg tablet Take 1 tablet by mouth twice daily with meals for 25 doses. 25 tablet 0 11/19/2021 02/12/2022 Discontinued End: 11-17-2021 take 1000 mg by mouth once daily Ascorbic Acid 500 mg chew Take 1,000 mg by mouth once daily. 11/17/2021 Discontinued take 1 tablet by vanessa th once daily ascorbic acid, vitamin C, (VITAMIN C) 500 mg tablet Take 500 mg by mouth once daily. 0 Active take 1000 mg by mouth once daily Ascorbic Acid (VITAMIN C) chew Take 1,000 mg by mouth once daily. 0 Active Comment on above: Take 1,000 mg by vanessa th once daily. Take 1 tablet by vanessa th twice daily with meals for 25 doses. Take 1 tablet by vanessa th twice daily with meals for 28 doses. Take 500 mg by mouth once daily. aspirin 81 mg delayed release oral tablet (20 sources) Platelet Aggregation Inhibitor, Nonsteroidal Anti-inflammatory Drug Start: 09-16-2022 End: 02-02-2023 take 1 tablet by mouth twice daily aspirin, enteric coated (ASPIRIN, ENTERIC COATED) 81 mg EC tablet Indications: prevention of transient ischemic attack Take 1 tablet by mouth twice daily for 28 days. 56 tablet 09/16/2022 02/02/2023 Discontinued Start: 07-08-2022 End: 08-06-2022 take 1 tablet by mouth twice daily aspirin, enteric coated (ASPIRIN, ENTERIC COATED) 81 mg EC tablet Take 1 tablet by mouth twice daily for 28 days. 56 tablet 0 07/08/2022 Active Comment on above: Take [address] [facility] twice daily for 28 days. betamethasone 3 mg/ml / betamethasone acetate 3 mg/ml injectable suspension (9 sources) Corticosteroid Start: 04-14-2024 End: 04-14-2024 betamethasone acetate-betamethasone sodium phosphate 6 mg injection (CELESTONE) Start: 04-14-2024 End: 04-14-2024 6 mg, Injection - FOR ORTHO USE ONLY, ONCE, 1 dose, Starting on Thu04/14/24 at 1333, Until Thu04/14/24 at 1333 Start: 03-29-2024 End: 03-29-2024 betamethasone acetate-betame thasone sodium phosphate 6 mg injection (CELESTONE) Start: 03-29-2024 End: 03-29-2024 6 mg, Injection - FOR ORTHO USE ONLY, ONCE, 1 dose, Starting on Thu03/29/24 at 1134, Until Thu03/29/24 at 1134 Start: 10-13-2023 End: 10-13-2023 betamethasone acetate-betame thasone sodium phosphate 6 mg injection (CELESTONE) Start: 07-07-2023 End: 07-07-2023 betamethasone acetate-betame thasone sodium phosphate 3 mg injection (CELESTONE) Start: 02-09-2023 End: 02-09-2023 betamethasone acetate-betame thasone sodium phosphate 3 mg injection (CELESTONE) Blood-Glucose Meter monitori ng kit (3 sources) Start: 07-08-2023 End: 07-08-2023 Blood-Glucose Meter monitori ng kit Indications: Type 2 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 with stage 3 chronic kidney disease, without long-term current use of insulin, unspecified whether stage 3a or 3b CKD (HCC) Glucose Meter of Choice - Kit - Dx: Type 2 DM - Controlled E11.9 1 Each 0 07/08/2023 07/08/2023 Discontinued Start: 07-08-2023 End: 07-09-2023 Blood-Glucose Meter monitori ng kit Indications: Type 2 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 with stage 3 chronic kidney disease, without long-term current use of insulin, unspecified whether stage 3a or 3b CKD (HCC) Glucose Meter of Choice - Kit - Dx: Type 2 DM - Controlled E11.9 1 Each 0 07/08/2023 07/09/2023 Blood-Glucose Meter,Continuo us (FREESTYLE JAUN 3 READER) misc (20 sources) Start: 04-14-2024 End: 05-11-2024 Blood-Glucose Meter,Continuo us (FREESTYLE JAUN 3 READER) misc Dispense one reader kit. E11.9 1 Each 04/14/2024 05/11/2024 Discontinued Start: 04-14-2024 Blood-Glucose Meter,Continuous (FREESTYLE JAUN 3 READER) misc Dispense one reader kit. E11.9 1 Each 04/14/2024 Active Start: 04-14-2024 End: 04-14-2024 Blood-Glucose Meter,Continuo us (FREESTYLE JAUN 3 READER) misc Dispense one reader kit. E11.9 1 Each 04/14/2024 04/14/2024 Discontinued Start: 08-26-2023 End: 04-14-2024 Blood-Glucose Meter,Continuo us (FREESTYLE JAUN 3 READER) misc Dispense one reader kit. E11.9 1 Each 08/26/2023 04/14/2024 Discontinued Start: 08-26-2023 Blood-Glucose Meter,Continuous (FREESTYLE JAUN 3 READER) misc Dispense one reader kit. E11.9 1 Each 08/26/2023 Active Start: 08-26-2023 Blood-Glucose Meter,Continuous (FREESTYLE JAUN 3 READER) misc Dispense one reader kit. E11.9 1 Each 0 08/26/2023 Active Blood-Glucose Sensor (FREEST YLE JAUN 3 SENSOR) guido (20 sources) Start: 05-11-2024 End: 05-11-2024 Blood-Glucose Sensor (FREEST YLE JAUN 3 SENSOR) guido 1 Each every 2 weeks. CHANGE sensor every 14 days. USE FOR CONTINUOUS GLUCOSE MONITORING. Dx: E11.9 RISK FOR HYPOGLYCEMIA. 2 Each 3 05/11/2024 05/11/2024 Discontinued Start: 04-14-2024 End: 05-11-2024 Blood-Glucose Sensor (FREEST YLE JAUN 3 SENSOR) guido 1 Each every 2 weeks. CHANGE sensor every 14 days. USE FOR CONTINUOUS GLUCOSE MONITORING. Dx: E11.9 RISK FOR HYPOGLYCEMIA. 2 Each 3 04/14/2024 05/11/2024 Discontinued Start: 04-14-2024 End: 07-13-2024 Blood-Glucose Sensor (FREEST YLE JAUN 3 SENSOR) guido 1 Each every 2 weeks. CHANGE sensor every 14 days. USE FOR CONTINUOUS GLUCOSE MONITORING. Dx: E11.9 RISK FOR HYPOGLYCEMIA. 2 Each 3 04/14/2024 07/13/2024 Active Start: 04-14-2024 End: 04-14-2024 Blood-Glucose Sensor (FREEST YLE JAUN 3 SENSOR) guido 1 Each every 2 weeks. CHANGE sensor every 14 days. USE FOR CONTINUOUS GLUCOSE MONITORING. Dx: E11.9 RISK FOR HYPOGLYCEMIA. 2 Each 3 04/14/2024 04/14/2024 Discontinued Start: 08-26-2023 End: 04-14-2024 Blood-Glucose Sensor (FREEST YLE JAUN 3 SENSOR) guido CHANGE sensor every 14 days. USE FOR CONTINUOUS GLUCOSE MONITORING. E11.9 RISK FOR HYPOGLYCEMIA. 6 Each 3 08/26/2023 04/14/2024 Discontinued Start: 08-26-2023 Blood-Glucose Sensor (FREESTYLE JAUN 3 SENSOR) guido CHANGE sensor every 14 days. USE FOR CONTINUOUS GLUCOSE MONITORING. E11.9 RISK FOR HYPOGLYCEMIA. 6 Each 3 08/26/2023 Active Start: 08-26-2023 End: 08-26-2023 Blood-Glucose Sensor (FREEST YLE JAUN 3 SENSOR) guido CHANGE sensor every 14 days. USE FOR CONTINUOUS GLUCOSE MONITORING. E11.9 6 Each 3 08/26/2023 08/26/2023 Discontinued Start: 07-29-2022 End: 08-12-2023 Blood-Glucose Sensor (FREEST YLE JAUN 3 SENSOR) guido Indications: Type 2 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 with stage 3 chronic kidney disease, without long-term current use of insulin, unspecified whether stage 3a or 3b CKD (HCC) 1 Each as directed. 10 Each 3 07/29/2022 08/12/2023 Discontinued (Not on Formulary) Start: 07-29-2022 Blood-Glucose Sensor (FREESTYLE JAUN 3 SENSOR) guido Indications: Type 2 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 with stage 3 chronic kidney disease, without long-term current use of insulin, unspecified whether stage 3a or 3b CKD (HCC) 1 Each as directed. 10 Each 07/29/2022 Suspended Start: 07-29-2022 Blood-Glucose Sensor (FREESTYLE JAUN 3 SENSOR) guido Indications: Type 2 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 with stage 3 chronic kidney disease, without long-term current use of insulin, unspecified whether stage 3a or 3b CKD (HCC) 1 Each as directed. 10 Each 07/29/2022 Active Comment on above: 1 Each as directed. calcium citrate/vitamin D3 (CALCIUM CITRATE + D ORAL) (20 sources) End: 09-16-2022 take 1 tablet by mouth twice daily calcium citrate/vitamin D3 (CALCIUM CITRATE + D ORAL) Take 1 tablet by mouth twice daily. 09/16/2022 Discontinued End: 09-16-2022 take 1 tablet by mouth twice daily calcium citrate/vitamin D3 (CALCIUM CITRATE + D ORAL) Take 1 tablet by mouth twice daily. 0 09/16/2022 Discontinued take 1 tablet by vanessa th twice daily calcium citrate/vitamin D3 (CALCIUM CITRATE + D ORAL) Take 1 tablet by mouth twice daily. 0 Suspended take 1 tablet by vanessa th twice daily calcium citrate/vitamin D3 (CALCIUM CITRATE + D ORAL) Take 1 tablet by mouth twice daily. 0 Active Comment on above: Take 1 tablet by vanessa th twice daily. cephalexin 500 mg oral capsule (2 sources) Cephalosporin Antibacterial Start: End: take 1 capsule by mouth twice daily cephALEXin (KEFLEX) 500 mg capsule Take 1 capsule by mouth two times a day for 7 days. 14 capsule 0 08/10/2023 08/12/2023 Discontinued (Course of therapy completed) diclofenac sodium 0.01 mg/mg topical gel (20 sources) Nonsteroidal Anti-inflammatory Drug Start: End: apply 4 g topically four times daily diclofenac (VOLTAREN) 1 % topical gel Apply 4 g to affected area four times daily. 500 g 06/10/2022 08/12/2023 Discontinued (Discontinued by Patient) Comment on above: Apply 4 g to affecte d area four times daily. dicyclomine hydrochloride 20 mg oral tablet (20 sources) Anticholinergic Start: End: take 1 tablet by mouth at bedtime dicyclomine (BENTYL) 20 mg tablet Indications: Irritable bowel syndrome with diarrhea Take 1 tablet by mouth before meals and at bedtime. 360 tablet 1 04/15/2021 08/12/2023 Discontinued (Discontinued by Patient) Comment on above: Take 1 tablet by vanessa before meals and at bedtime. [The details of the medication are not available because there are pending changes by a home health clinician.] docusate sodium 100 mg oral capsule (20 sources) Start: End: take 1 capsule by mouth every twelve hours as needed docusate sodium (COLACE) 100 mg capsule Take 1 capsule by mouth twice daily as needed for constipation. 60 capsule 09/16/2022 10/16/2022 Start: 07-08-2022 End: 08-08-2022 take 1 capsule by mouth every twelve hours as needed docusate sodium (COLACE) 100 mg capsule Take 1 capsule by mouth twice daily as needed for constipation. 60 capsule 0 07/08/2022 08/08/2022 Active Start: 11-19-2021 End: 12-19-2021 take 1 capsule by mouth every twelve hours as needed docusate sodium (COLACE) 100 mg capsule Take 1 capsule by mouth twice daily as needed for constipation. 60 capsule 0 11/19/2021 12/19/2021 Comment on above: Take 1 capsule by mo [facility] twice daily as needed for constipation. docusate sodium 50 mg / sennosides, snf 8.6 mg oral tablet (19 sources) Start: End: 06-06-202 4 take 1 tablet by mouth twice daily senna-docusate (SENNA-S) 8.6-50 mg per tablet Take 1 tablet by mouth two times a day. 60 tablet 0 07/28/2023 08/27/2023 doxycycline hyclate 100 mg oral capsule (20 sources) Tetracycline-class Drug Start: 3 End: 3 doxycycline hyclate 100 mg oral capsule Dose : 100 mg = 1 cap(s), Oral, TID, 0 Refill(s), 70.5 Start Date: 11/04/22 Status: Ordered Start: 09-16-2022 End: 10-27-2022 take 1 capsule by mouth every twelve hours doxycycline hyclate (VIBRAMYCIN) 100 mg capsule Indications: Prevention of infection Take 1 capsule by mouth every 12 hours 6am/6pm for 82 doses. 82 capsule 09/16/2022 10/27/2022 Start: 07-08-2022 End: 07-23-2022 take 1 capsule by mouth every twelve hours doxycycline hyclate (VIBRAMYCIN) 100 mg capsule Take 1 capsule by mouth every 12 hours 6am/6pm for 27 doses. 27 capsule 0 07/08/2022 07/23/2022 Active Comment on above: Take 1 capsule by mo uth every 12 hours 6am/6pm for 27 doses. Take 1 capsule by mo uth every 12 hours 6am/6pm for 82 doses. fluconazole 150 mg oral tablet (1 source) Azole Antifungal Start: 08-05-19 End: 08-05-19 fluconazole (DIFLUCAN) 150 mg tablet Take 1 tablet by mouth one time only for 1 dose. Repeat in 3 days as needed. 2 tablet 0 08/05/2023 08/05/2023 fluticasone (20 sources) Corticosteroid Start: 07-12-19 End: 12-06-19 take 1 spray(s) by inhalation once daily as needed FLUTICASONE PROPIONATE NASAL Inhale 1 Gay as instructed once daily as needed (allergies). 07/11/2022 12/05/2022 Discontinued Start: 07-11-2022 End: 12-05-2022 take 1 spray(s) by inhalation once daily as needed FLUTICASONE PROPIONATE NASAL Inhale 1 Gay as instructed once daily as needed (allergies). 0 07/11/2022 12/05/2022 Discontinued Start: 07-11-2022 take 1 spray(s) by i nhalation once daily as needed FLUTICASONE PROPIONATE NASAL Inhale 1 Gay as instructed once daily as needed (allergies). 0 07/11/2022 Suspended Start: 07-11-2022 take 1 spray(s) by i nhalation once daily as needed FLUTICASONE PROPIONATE NASAL Inhale 1 Gay as instructed once daily as needed (allergies). 0 07/11/2022 Active Comment on above: Inhale 1 Gay as in structed once daily as needed (allergies). gabapentin 300 mg oral capsule (2 sources) Anti-epileptic Agent Start: 10-17-19 End: 11-16-19 take 1 capsule by mouth once daily at bedtime gabapentin (NEURONTIN) 300 mg capsule Indications: Allodynia Take 1 capsule by mouth daily at bedtime for 30 days. 30 capsule 0 10/16/2022 10/22/2022 Discontinued (Side Effects) Comment on above: Take 1 capsule by mo [facility] daily at bedtime for 30 days. glimepiride 1 mg oral tablet (20 sources) Sulfonylurea Start: 12-20-19 End: 08-26-19 take 1 tablet by mouth once daily at breakfast glimepiride (AMARYL) 1 mg tablet Take 1 tablet by mouth daily with breakfast. 90 tablet 0 12/19/2022 08/26/2023 Discontinued Start: 11-03-2022 End: 12-19-2022 take 0.5 tablet by mouth once daily at breakfast glimepiride (AMARYL) 2 mg tablet Take 0.5 tablets by mouth daily with breakfast. 90 tablet 1 11/03/2022 12/19/2022 Discontinued Start: 09-03-2020 End: 12-15-2023 take 1 tablet by mouth once daily at breakfast glimepiride (AMARYL) 2 mg tablet Take 1 tablet by mouth daily with breakfast. 90 tablet 1 06/04/2022 11/03/2022 Discontinued (Adjust Sig - Block E-Cancel) Comment on above: Take 2 tablets by mo uth daily with breakfast. Take 1 tablet by vanessa daily with breakfast. Take 0.5 tablets by mouth daily with breakfast. Inhalational Spacing Device (1 source) Start: End: Inhalational Spacing Device 1 Device one time only for 1 dose. 1 Each 0 03/21/2022 03/21/2022 Comment on above: 1 Device one time on ly for 1 dose. irbesartan 150 mg oral tablet (20 sources) Angiotensin 2 Receptor Manny Start: 012 End: 024 take 1 tablet by mouth once daily in the evening irbesartan (AVAPRO) 150 mg tablet Take 1 tablet by mouth every evening. 06/26/2011 12/15/2023 Discontinued (Other) iv contrast (will be provided with radiology test) (8 sources) Start: 025 End: inject 1 dose intravenously once iv contrast (will be provided with radiology test) Indications: Memory loss CT Brain WO/W - No IV access, insert saline lock prior to the sedation, infusion, injection for imaging exam. Discontinue saline lock post exam. If Pt. has a central line or IVAD, may access for administration according to line specific nursing protocol. Once exam is complete flush line and de-access according to line specific nursing protocol in the CT contrast administration guidelines link. 1 each 10/19/2024 10/20/2024 Start: 10-19-2024 End: 10-20-2024 inject 1 dose intravenously once iv contrast (will be provided with radiology test) Indications: Memory loss CT Brain WO/W - No IV access, insert saline lock prior to the sedation, infusion, injection for imaging exam. Discontinue saline lock post exam. If Pt. has a central line or IVAD, may access for administration according to line specific nursing protocol. Once exam is complete flush line and de-access according to line specific nursing protocol in the CT contrast administration guidelines link. 1 each 10/19/2024 10/20/2024 Active Start: 10-13-2024 End: 10-14-2024 inject 1 dose intravenously once iv contrast (will be provided with radiology test) Indications: Memory loss CT Brain W IVCON-No IV access, insert saline lock prior to the sedation, infusion, injection for imaging exam. Discontinue saline lock post exam. If Pt. has a central line or IVAD, may access for administration according to line specific nursing protocol. Once exam is complete flush line and de-access according to line specific nursing protocol in the CT contrast administration guidelines link. 1 each 10/13/2024 10/14/2024 Active Start: 01-08-2024 End: 01-09-2024 iv contrast (will be provide d with radiology test) CT PANCREAS W Inject, intravenously, once for 1 dose.No IV access, insert saline lock prior to the beginning of sedation, infusion, injection of imaging exam. Discontinue saline lock post exam. If Pt. has a central line or IVAD, may access for administration according to line specific nursing protocol. Once exam is complete flush line and de-access according to line specific nursing protocol in the CT contrast administration guidelines link. 1 Each 01/08/2024 01/09/2024 Active Start: 12-15-2023 End: 12-16-2023 iv contrast (will be provide d with radiology test) Indications: Pancreatic cyst CT PANCREAS W Inject, intravenously, once for 1 dose.No IV access, insert saline lock prior to the beginning of sedation, infusion, injection of imaging exam. Discontinue saline lock post exam. If Pt. has a central line or IVAD, may access for administration according to line specific nursing protocol. Once exam is complete flush line and de-access according to line specific nursing protocol in the CT contrast administration guidelines link. 1 Each 12/15/2023 12/16/2023 Active lactose-reduced food (ADULT NUTRITIONAL SUPPLEMENT ORAL) (5 sources) Start: 11-21-2021 End: 11-22-2021 take 1 capsule by mouth once daily lactose-reduced food (ADULT NUTRITIONAL SUPPLEMENT ORAL) Take 1 capsule by mouth once daily. Tumeric - 2000mg capsule 0 11/21/2021 11/22/2021 Discontinued (Erroneous entry) Comment on above: Take 1 capsule by [facility] once daily. Tumeric - 2000mg capsule 10 ml lidocaine hydrochloride 10 mg/ml injection (9 sources) Antiarrhythmic, Amide Local Anesthetic Start: 04-14-2024 End: 04-14-2024 lidocaine (PF) 10 mg/mL (1 %) 0.5 mL injection (XYLOCAINE) Start: 04-14-2024 End: 04-14-2024 0.5 mL, Injection - FOR ORTH O USE ONLY, ONCE, 1 dose, Starting on Alanis 04/14/24 at 1333, Until Alanis 04/14/24 at 1333 Start: 03-29-2024 End: 03-29-2024 lidocaine (PF) 10 mg/mL (1 % ) 5 mL injection (XYLOCAINE) Start: 03-29-2024 End: 03-29-2024 5 mL, Injection - FOR ORTHO USE ONLY, ONCE, 1 dose, Starting on Thu03/29/24 at 1134, Until Thu03/29/24 at 1134 Start: 10-13-2023 End: 10-13-2023 lidocaine (PF) 10 mg/mL (1 % ) 0.5 mL injection (XYLOCAINE) Start: 07-07-2023 End: 07-07-2023 lidocaine (PF) 10 mg/mL (1 % ) 1 mL injection (XYLOCAINE) Start: 02-09-2023 End: 02-09-2023 lidocaine (PF) 10 mg/mL (1 % ) 0.5 mL injection (XYLOCAINE) melatonin 10 mg oral tablet (20 sources) End: 09-21-2024 take 1 tablet by mouth every twenty-four hours as needed melatonin 10 mg tab Take 1 tablet by mouth at bedtime as needed for insomnia. 09/21/2024 Discontinued (Course of therapy completed) methylPREDNISolone (20 sources) Corticosteroid Start: 11-13-2022 End: 02-02-2023 methylPREDNISolone (MEDROL, KONRAD,) 4 mg Dose-Pack As Instructed per package 21 tablet 11/13/2022 02/02/2023 Discontinued Start: 11-13-2022 methylPREDNISo lone (MEDROL, KONRAD,) 4 mg Dose-Pack As Instructed per package 21 tablet 0 11/13/2022 Active Start: 10-16-2022 End: 11-13-2022 methylPREDNISolone (MEDROL, KONRAD,) 4 mg Dose-Pack As Instructed per package 21 tablet 0 10/16/2022 11/13/2022 Discontinued Start: 10-16-2022 methylPREDNISo lone (MEDROL, KONRAD,) 4 mg Dose-Pack As Instructed per package 21 tablet 0 10/16/2022 Active Start: 04-22-2022 End: 04-27-2022 methylPREDNISolone (MEDROL, KONRAD,) 4 mg Dose-Pack Take 1 tablet by mouth as directed for 5 days. As directed on package 21 tablet 0 04/22/2022 04/27/2022 Start: 12-19-2021 End: 01-29-2022 methylPREDNISolone (MEDROL, KONRAD,) 4 mg Dose-Pack Take 1 tablet by mouth as directed. As directed on package 21 tablet 0 12/19/2021 01/29/2022 Discontinued Comment on above: Take 1 tablet by vanessa th as directed. As directed on package Take 1 tablet by vanessa th as directed for 5 days. As directed on package As Instructed per melo aden nitrofurantoin, macrocrystals 25 mg / nitrofurantoin, monohydrate 75 mg oral capsule (4 sources) Nitrofuran Antibacterial Start: End: take 1 capsule by mouth twice daily at mealtime nitrofurantoin monohydrate and macrocrystal (MACROBID) 100 mg capsule Take 1 capsule by mouth two times a day with meals for 7 days. 14 capsule 0 08/05/2023 08/12/2023 Discontinued (Course of therapy completed) ondansetron 8 mg oral tablet (20 sources) Serotonin-3 Receptor Antagonist Start: 023 End: 025 take 1 tablet by mouth every eight hours as needed ondansetron (ZOFRAN) 8 mg tablet Take 1 tablet by mouth every 8 hours as needed for nausea/vomiting. 20 tablet 1 10/31/2022 05/11/2024 Discontinued Start: 01-22-2021 End: 11-19-2021 take 1 tablet by mouth every eight hours as needed ondansetron (ZOFRAN) 8 mg tablet Take 1 tablet by mouth every 8 hours as needed for nausea/vomiting. 20 tablet 1 01/22/2021 11/19/2021 Discontinued Comment on above: Take 1 tablet by vanessa every 8 hours as needed for nausea/vomiting. OTC NUTRITIONAL SUPPLEMENT (20 sources) Start: 11-22-19 End: 12-15-19 take 1 capsule by mouth once daily OTC NUTRITIONAL SUPPLEMENT Take 1 capsule by mouth once daily. Tumeric - 2000 mg capsule 11/21/2021 12/15/2023 Discontinued Start: 11-21-2021 take 1 capsule by mo [facility] once daily OTC NUTRITIONAL SUPPLEMENT Take 1 capsule by mouth once daily. Tumeric - 2000 mg capsule 11/21/2021 Active Start: 11-21-2021 take 1 capsule by [facility] once daily OTC NUTRITIONAL SUPPLEMENT Take 1 capsule by mouth once daily. Tumeric - 2000 mg capsule 0 11/21/2021 Suspended Start: 11-21-2021 take 1 capsule by [facility] once daily OTC NUTRITIONAL SUPPLEMENT Take 1 capsule by mouth once daily. Tumeric - 2000 mg capsule 0 11/21/2021 Active Comment on above: Take 1 capsule by [facility] once daily. Tumeric - 2000 mg capsule oxyCODONE hydrochloride 5 mg oral tablet (20 sources) Opioid Agonist Start: End: take 1 tablet by mouth every six hours as needed oxyCODONE IR (ROXICODONE) 5 mg immediate release tablet Indications: pain Take 1-2 tablets by mouth every 6 hours as needed for pain. 50 tablet 09/16/2022 09/30/2022 Discontinued Start: 05-27-2022 End: 11-20-2022 take 1 tablet by mouth every eight hours as needed for pain oxyCODONE IR (ROXICODONE) 5 mg immediate release tablet Indications: pain Take 1 tablet by mouth every 8 hours as needed for pain for up to 7 days. 21 tablet 0 11/13/2022 11/20/2022 Active Start: 05-13-2022 End: 05-16-2022 take 1 tablet by mouth every eight hours as needed for pain oxyCODONE IR (ROXICODONE) 5 mg immediate release tablet Indications: Full incontinence of feces Take 1 tablet by mouth every 8 hours as needed for pain for up to 3 days. 10 tablet 0 05/13/2022 05/16/2022 Start: 11-19-2021 End: 01-29-2022 take 1 tablet by mouth every six hours as needed oxyCODONE IR (ROXICODONE) 5 mg immediate release tablet Indications: Hip fracture requiring operative repair, right, closed, initial encounter ([facility]) Take 1-2 tablets by mouth every 6 hours as needed for pain. 30 tablet 0 11/19/2021 01/29/2022 Discontinued Comment on above: Take 1-2 tablets by mouth every 6 hours as needed for pain. Take [address] [facility] every 8 hours as needed for pain for up to 3 days. Take 1-2 tablets by mouth every 6 hours as needed for pain. Do not start before October 23, 2022. Take 1 tablet by vanessa th every 8 hours as needed for pain for up to 7 days. pantoprazole 40 mg delayed release oral tablet (9 sources) Proton Pump Inhibitor Start: 4 End: 4 take 1 tablet by mouth once daily in the morning pantoprazole DR (PROTONIX) 40 mg tablet Take 1 tablet by mouth daily at 6 am. 30 tablet 2 07/29/2023 08/12/2023 Discontinued (Duplicate Entry) polyethylene glycol 3350 25962 mg powder for oral solution (20 sources) Osmotic Laxative Start: 3 End: 3 polyethylene glycol 3350 17 gram packet Take 1 Packet by mouth once daily as needed for constipation for up to 10 days. Dissolve dose in 4 - 8 ounces of liquid and take as directed. 10 Packet 0 09/16/2022 09/26/2022 Start: 07-08-2022 End: 07-23-2022 polyethylene glycol 3350 17 gram/dose powder Take 1 capful (17 grams) by mouth once daily as needed for constipation for up to 10 days. Dissolve dose in 4 - 8 ounces of liquid and take as directed. 238 g 0 07/08/2022 07/23/2022 Active Start: 11-19-2021 End: 11-29-2021 polyethylene glycol 3350 (MD RALAX) 17 gram/dose powder [The details of the medication are not available because there are pending changes by a home health clinician.] 170 g 0 11/19/2021 11/22/2021 Discontinued Comment on above: Take 17 g by mouth o nce daily as needed for constipation for up to 10 days. Dissolve dose in 4 - 8 ounces of liquid and take as directed. [The details of the medication are not available because there are pending changes by a home health clinician.] Take 1 capful (17 gr ams) by mouth once daily as needed for constipation for up to 10 days. Dissolve dose in 4 - 8 ounces of liquid and take as directed. Take 1 Packet by vanessa th once daily as needed for constipation for up to 10 days. Dissolve dose in 4 - 8 ounces of liquid and take as directed. pregabalin 75 mg oral capsule (20 sources) Start: 12-03-19 End: 08-12-19 take 1 capsule by mouth once daily at bedtime pregabalin (LYRICA) 75 mg capsule Indications: Radicular pain Take 1 capsule by mouth daily at bedtime for 90 days. 90 capsule 0 01/27/2023 08/12/2023 Discontinued Comment on above: Take 1 capsule by mo [facility] daily at bedtime for 30 days. Take 1 capsule by mo [facility] daily at bedtime for 90 days. rivaroxaban 10 mg oral tablet (3 sources) Factor Xa Inhibitor Start: 11-21-19 End: 12-31-19 rivaroxaban (XARELTO) 10 mg tablet [The details of the medication are not available because there are pending changes by a home health clinician.] 40 tablet 0 11/20/2021 11/22/2021 Discontinued Comment on above: Take 1 tablet by vanessa once daily. [The details of the medication are not available because there are pending changes by a home health clinician.] 72 hr scopolamine 0.0139 mg/hr transdermal system (20 sources) Anticholinergic Start: 04-11-19 End: 06-25-19 scopolamine (TRANSDERM-SCOP) patch 1.5 mg/72 hr (delivers 1 mg over 3 days) Indications: Nausea Apply 1 Patch as directed every 72 hours. Apply one patch behind the ear every 3 days 3 Patch 04/11/2022 06/24/2022 Discontinued Comment on above: Apply 1 Patch as dir ected every 72 hours. Apply one patch behind the ear every 3 days sodium chloride 1000 mg oral tablet (19 sources) Start: 11-20-19 End: 12-20-19 take 1 tablet by mouth twice daily sodium chloride 1 gram tab Take 1 tablet by mouth twice daily. 60 tablet 0 11/19/2021 12/19/2021 Comment on above: Take 1 tablet by vanessa twice daily. tirzepatide (MOUNJARO) 2.5 mg/0.5 mL pen injector (1 source) Start: 08-26-19 End: 08-26-19 tirzepatide (MOUNJARO) 2.5 mg/0.5 mL pen injector Inject 2.5 mg once weekly 4 Each 5 08/26/2023 08/26/2023 Discontinued tiZANidine 4 mg oral tablet (4 sources) Central alpha-2 Adrenergic Agonist Start: 06-11-19 take 1 tablet by mouth once daily tiZANidine (ZANAFLEX) 4 mg tablet Take 1 tablet by mouth once daily. 20 tablet 0 06/10/2022 Active Comment on above: Take 1 tablet by vanessa th once daily. turmeric root extract 500 mg cap (20 sources) Start: 11-05-19 End: 12-15-19 turmeric root extract 500 mg cap Take by mouth. 11/04/2022 12/15/2023 Discontinued (Other) Start: 11-04-2022 turmeric root extract 500 mg cap Take by mouth. 11/04/2022 Active Start: 11-04-2022 turmeric root extract 500 mg cap Take by mouth. 0 11/04/2022 Active Vit B Cmplx 3-FA-Vit C-Bioti n tablet (10 sources) End: 11-17-2021 Vit B Cmplx 3-FA-Vit C-Bioti n tablet Take 1 tablet by mouth once daily. 11/17/2021 Discontinued Vit B Cmplx 3-FA -Vit C-Biotin tablet Take 1 tablet by mouth once daily. 0 Active Comment on above: Take 1 tablet by vanessa th once daily. Problems Active Problems Problem Classification Problem Date Documented Da te Episodic/Chronic Abdominal hernia (1 source) Intra-abdominal hernia; Translations: [Other specified abdominal hernia without obstruction or gangrene] 08-12-2023 Episodic Acquired foot deformities (20 sources) Hammer toe; Translations: [Other hammer toe(s) (acquired), unspecified foot] Onset: 7 11-27-2016 Chronic Acute and unspecified renal failure (1 source) Acute renal failure syndrome; Translations: [Acute kidney failure, unspecified] Episodic Acute posthemorrhagic anemia (1 source) Acute posthemorrhagic anemia; Translations: [Acute posthemorrhagic anemia] Episodic Asthma (20 sources) Asthma; Translations: [Unspecified asthma, uncomplicated] Onset: 9 08-19-2018 Chronic Attention-deficit, conduct, and disruptive behavior disorders (1 source) Attention deficit hyperactivity disorder, combined type; Translations: [Attention-deficit hyperactivity disorder, combined type] 10-13-2024 Chronic Attention-deficit, conduct, and disruptive behavior disorders (1 source) Attention deficit hyperactivity disorder, predominantly inattentive type; Translations: [Attention-deficit hyperactivity disorder, predominantly inattentive type] 11-15-2024 Chronic Attention-deficit, conduct, and disruptive behavior disorders (1 source) Attention-deficit hyperactivity disorder, predominantly inattentive type; Translations: [Attention-deficit hyperactivity disorder, predominantly inattentive type] Onset: 5 Chronic Attention-deficit, conduct, and disruptive behavior disorders (1 source) Attention-deficit hyperactivity disorder, combined type; Translations: [Attention deficit hyperactivity disorder (ADHD), combined type] Onset: 5 Chronic Chronic kidney disease (20 sources) Chronic kidney disease stage 3; Translations: [Stage 3 chronic kidney disease] Onset: 9 08-30-2020 Chronic Chronic kidney disease (1 source) Chronic kidney disease; Translations: [Stage 3 chronic kidney disease, unspecified whether stage 3a or 3b CKD (HCC)] Onset: 2 Complications of surgical procedures or medical care (1 source) Hematoma of surgical wound of skin due to and following surgical procedure; Translations: [Postprocedural hematoma of skin and subcutaneous tissue following other procedure] Episodic Coronary atherosclerosis and other heart disease (20 sources) Coronary arteriosclerosis; Translations: [Atherosclerotic heart disease of [place] coronary artery without angina pectoris] Onset: 8 Resolved: 3 05-02-2022 Chronic Coronary atherosclerosis and other heart disease (1 source) Coronary atherosclerosis and other heart disease Onset: 8 Deficiency and other anemia (5 sources) Anemia; Translations: [Anemia, unspecified] Episodic Diabetes mellitus with complications (20 sources) Type 2 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; Translations: [Type 2 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 with diabetic chronic kidney disease] Onset: 1 Chronic Diabetes mellitus with complications (1 source) Diabetes mellitus with complications Onset: 8 Diabetes 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 (13 sources) 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; Translations: [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s] Onset: 3 Chronic Diseases of mouth; excluding dental (1 source) Cracked lips; Translations: [Diseases of lips] Episodic Disorders of lipid metabolism (20 sources) Mixed hyperlipidemia; Translations: [Mixed hyperlipidemia] Onset: 3 Chronic E Codes: Fall (4 sources) Fall; Translations: [Unspecified fall, initial encounter] Episodic Esophageal disorders (20 sources) Gastroesophageal reflux disease; Translations: [Gastro-esophageal reflux disease without esophagitis] Onset: 7 Chronic Essential hypertension (20 sources) Essential hypertension; Translations: [Essential (primary) hypertension] Onset: 2 Resolved: 5 Chronic Essential hypertension (1 source) Essential hypertension Onset: 8 Fracture of lower limb (5 sources) Closed fracture proximal phalanx, toe ; Translations: [Nondisplaced fracture of proximal phalanx of right lesser toe(s), initial encounter for closed fracture] 09-12-2023 Episodic Gastritis and duodenitis (2 sources) Gastritis; Translations: [Gastritis, unspecified, without bleeding] Episodic Headache; including migraine (5 sources) Headache; Translations: [Headaches] Onset: 5 11-15-2024 Episodic Hypertension with complications and secondary hypertension (20 sources) Chronic kidney disease stage 3 due to hypertension; Translations: [Hypertensive chronic kidney disease with stage 1 through stage 4 chronic kidney disease, or unspecified chronic kidney disease] Onset: 8 08-30-2020 Chronic Malaise and fatigue (1 source) Fatigue; Translations: [Other fatigue] Episodic Mood disorders (20 sources) Recurrent major depressive episodes, moderate ; Translations: [Major depressive disorder, recurrent, moderate] Onset: 5 08-30-2020 Chronic Mood disorders (1 source) Mood disorders Onset: 8 Nausea and vomiting (7 sources) Nausea; Translations: [Nausea] Onset: 5 Episodic Osteoarthritis (20 sources) Osteoarthritis of foot joint; Translations: [Primary osteoarthritis, unspecified ankle and foot] Onset: 7 Resolved: 3 11-27-2016 Chronic Other and unspecified benign neoplasm (3 sources) History of polyp of colon; Translations: [Personal history of colonic polyps] Episodic Other circulatory disease (1 source) Low blood pressure; Translations: [Hypotension, unspecified] Episodic Other connective tissue disease (4 sources) Hip joint prosthesis present; Translations: [Presence of right artificial hip joint] Chronic Other connective tissue disease (1 source) History of repair of hip joint; Translations: [Presence of right artificial hip joint] Chronic Other connective tissue disease (20 sources) History of total replacement of right hip joint; Translations: [Presence of right artificial hip joint] Onset: 3 08-27-2022 Chronic Other connective tissue disease (20 sources) History of left total knee replacement; Translations: [Presence of left artificial knee joint] Onset: 3 08-27-2022 Chronic Other connective tissue disease (1 source) Presence of right artificial knee joint; Translations: [Status post right knee replacement] Onset: 5 Chronic Other connective tissue disease (3 sources) Pain in left hand; Translations: [Pain in left hand] Onset: 8 Episodic Other connective tissue disease (3 sources) Radial styloid tenosynovitis [de Quervain]; Translations: [Radial styloid tenosynovitis [de Quervain]] Onset: 8 Episodic Other connective tissue disease (1 source) Pain in right hand; Translations: [Pain in right hand] Episodic Other connective tissue disease (1 source) Pain of left hand; Translations: [Pain in left hand] Episodic Other connective tissue disease (2 sources) Pain of right calf; Translations: [Pain in right lower leg] 09-26-2022 Episodic Other connective tissue disease (1 source) Pain of bilateral hands; Translations: [Pain in right hand] 01-15-2024 Episodic Other connective tissue disease (3 sources) Pes anserinus bursitis of right knee; Translations: [Other bursitis of knee, right knee] 08-18-2024 Episodic Other connective tissue disease (4 sources) Impingement syndrome of right shoulder region; Translations: [Impingement syndrome of right shoulder] 08-25-2024 Episodic Other connective tissue disease (1 source) Other symptoms and signs involving the musculoskeletal system; Translations: [Impaired strength of lower extremity] Onset: 5 Episodic Other diseases of kidney and ureters (1 source) Renal impairment; Translations: [Disorder of kidney and ureter, unspecified] 05-01-2023 Episodic Other gastrointestinal disorders (20 sources) Irritable bowel syndrome; Translations: [Irritable bowel syndrome without diarrhea] Onset: 4 09-01-2013 Chronic Other gastrointestinal disorders (2 sources) Irritable bowel syndrome with diarrhea; Translations: [Irritable bowel syndrome with diarrhea] Chronic Other gastrointestinal disorders (1 source) Irritable bowel syndrome with diarrhea; Translations: [Irritable bowel syndrome with diarrhea] Onset: 4 Chronic Other gastrointestinal disorders (1 source) History of gastritis; Translations: [Personal history of other diseases of the digestive system] Episodic Other gastrointestinal disorders (4 sources) Sphincter ani incontinence; Translations: [Full incontinence of feces] Episodic Other gastrointestinal disorders (1 source) Personal history of other diseases of the digestive system; Translations: [Personal history of other diseases of digestive system] 08-12-2023 Episodic Other gastrointestinal disorders (3 sources) Fecal incontinence due to anorectal disorder; Translations: [Full incontinence of feces] Onset: 5 11-15-2024 Episodic Other gastrointestinal disorders (1 source) Full incontinence of feces; Translations: [Loss of control of rectal sphincter] Onset: 5 Episodic Other hematologic conditions (3 sources) History of anemia; Translations: [Personal history of diseases of the blood and blood-forming organs and certain disorders involving the immune mechanism] Episodic Other inflammatory condition of skin (2 sources) Intertrigo; Translations: [Erythema intertrigo] Episodic Other injuries and conditions due to external causes (1 source) Unspecified injury of unspecified lower leg, initial encounter; Translations: [Unspecified injury of unspecified lower leg, initial encounter] Onset: 4 Episodic Other liver diseases (3 sources) Elevated liver enzymes level; Translations: [Abnormal levels of other serum enzymes] Episodic Other lower respiratory disease (1 source) Cough; Translations: [Acute cough] Episodic Other lower respiratory disease (2 sources) Rib pain; Translations: [Pleurodynia] 10-11-2023 Episodic Other lower respiratory disease (1 source) Cough; Translations: [Acute cough] 03-21-2022 Episodic Other nervous system disorders (1 source) Disturbance of attention; Translations: [Attention and concentration deficit] 11-23-2024 Chronic Other nervous system disorders (1 source) Attention and concentration deficit; Translations: [Attention deficit] Onset: 5 Chronic Other nervous system disorders (1 source) Allodynia; Translations: [Other disturbances of skin sensation] 10-16-2022 Episodic Other nervous system disorders (1 source) Other acute postprocedural pain; Translations: [Post-op pain] Onset: Episodic Other nervous system disorders (1 source) Other abnormalities of gait and mobility; Translations: [Balance disorder] Onset: Episodic Other non-traumatic joint disorders (3 sources) Pain in right hip joint; Translations: [Pain in right hip] Episodic Other non-traumatic joint disorders (3 sources) Pain of right wrist; Translations: [Pain in right wrist] 02-04-2023 Episodic Other non-traumatic joint disorders (6 sources) Pain in wrist; Translations: [Pain in unspecified wrist] 02-09-2023 Episodic Other non-traumatic joint disorders (1 source) Distal radioulnar joint instability; Translations: [Other instability, right wrist] 02-09-2023 Episodic Other non-traumatic joint disorders (5 sources) Ulnar impaction syndrome of right wrist; Translations: [Other specified joint disorders, right wrist] 08-16-2023 Episodic Other non-traumatic joint disorders (1 source) Hip pain; Translations: [Pain in right hip] 07-22-2022 Episodic Other non-traumatic joint disorders (1 source) Disorder of shoulder; Translations: [Other specified joint disorders, unspecified shoulder] 03-29-2024 Episodic Other non-traumatic joint disorders (1 source) Chronic pain of right upper limb; Translations: [Pain in right shoulder] 03-29-2024 Episodic Other non-traumatic joint disorders (2 sources) Other specified joint disorders, right wrist; Translations: [Ulnar abutment syndrome of right wrist] Onset: 5 Episodic Other nutritional; endocrine; and metabolic disorders (1 source) Weight decreased; Translations: [Abnormal weight loss] 11-23-2024 Episodic Other nutritional; endocrine; and metabolic disorders (1 source) Decrease in appetite; Translations: [Anorexia] 11-23-2024 Episodic Other nutritional; endocrine; and metabolic disorders (1 source) Abnormal weight loss; Translations: [Weight loss] Onset: 5 Episodic Other nutritional; endocrine; and metabolic disorders (1 source) Anorexia; Translations: [Decreased appetite] Onset: 5 Episodic Other skin disorders (1 source) Skin lesion; Translations: [Disorder of the skin and subcutaneous tissue, unspecified] Episodic Other skin disorders (1 source) Excessive skin and subcutaneous tissue; Translations: [Excessive and redundant skin and subcutaneous tissue] 11-17-2022 Episodic Rehabilitation care; fitting of prostheses; and adjustment of devices (1 source) Encounter for fitting and adjustment of other specified devices; Translations: [Cast removal] Onset: 5 Chronic Residual codes; unclassified (20 sources) Obstructive sleep apnea syndrome; Translations: [Obstructive sleep apnea (adult) (pediatric)] Onset: 6 09-17-2015 Chronic Residual codes; unclassified (1 source) Insomnia; Translations: [Other insomnia] 11-23-2024 Chronic Residual codes; unclassified (1 source) Obstructive sleep apnea (adult) (pediatric); Translations: [MARIBEL (obstructive sleep apnea)] Onset: 2 Chronic Residual codes; unclassified (1 source) History of laparoscopy; Translations: [Other specified postprocedural states] 08-12-2023 Episodic Residual codes; unclassified (2 sources) Postmenopausal state; Translations: [Asymptomatic menopausal state] 05-31-2024 Episodic Residual codes; unclassified (5 sources) Amnesia; Translations: [Other amnesia] 09-21-2024 Episodic Residual codes; unclassified (1 source) Insomnia; Translations: [Insomnia, unspecified] 09-21-2024 Episodic Residual codes; unclassified (3 sources) Other specified postprocedural states; Translations: [Post-operative state] Onset: 5 Episodic Spondylosis; intervertebral disc disorders; other back problems (3 sources) Chronic low back pain; Translations: [Chronic right-sided low back pain without sciatica] Episodic Thyroid disorders (20 sources) Hypothyroidism; Translations: [Hypothyroidism, unspecified] Onset: 3 Chronic Thyroid disorders (5 sources) Thyroid dysfunction 11-03-2022 Episodic Transient cerebral ischemia (1 source) Transient cerebral ischemic attack, unspecified; Translations: [Transient cerebral ischemia, unspecified type] Onset: 5 Chronic Unclassified (5 sources) Primary osteoarthritis, left hand / M19.042(ICD-10) Onset: 8 Unclassified (1 source) Hypothyroidism, unspecified / E03.9(ICD-10) Onset: 8 Unclassified (1 source) retirement (current) use of insulin / Z79.4(ICD-10) Onset: 8 Unclassified (1 source) Personal history of nicotine dependence / Z87.891(ICD-10) Onset: 8 Unclassified (1 source) Anxiety disorder, unspecified / F41.9(ICD-10) Onset: 8 Unclassified (1 source) Rheumatoid arthritis, unspecified / M06.9(ICD-10) Onset: 8 Unclassified (1 source) OPENED IN ERROR 07-03-2023 Unclassified (1 source) Rotator cuff strain, right, subsequent encounter 08-25-2024 Unclassified (1 source) Autogenerated Problem Onset: 5 11-03-2024 Unclassified (1 source) Headaches; Translations: [Headaches] Onset: 5 Past or Other Problems Problem Classification Problem Date Documented Date Episodic/Chronic Abdominal pain (20 sources) Generalized abdominal pain; Translations: [Generalized abdominal pain] Onset: 4 09-01-2013 Episodic Fluid and electrolyte disorders (20 sources) Hyponatremia; Translations: [Hypo-osmolality and hyponatremia] Onset: 2 Episodic Fracture of neck of femur (hip) (20 sources) Closed fracture of neck of femur; Translations: [Fracture of unspecified part of neck of right femur, initial encounter for closed fracture] Onset: 2 11-17-2021 Episodic Immunizations and screening for infectious disease (20 sources) Patient encounter status; Translations: [Encounter for immunization] Onset: 7 Resolved: 1 Episodic Intestinal obstruction without hernia (20 sources) Small bowel obstruction; Translations: [Unspecified intestinal obstruction, unspecified as to partial versus complete obstruction] Onset: 4 07-26-2023 Episodic Other connective tissue disease (20 sources) History of total knee arthroplasty; Translations: [Presence of right artificial knee joint] Onset: 3 Resolved: 3 09-16-2022 Chronic Other connective tissue disease (20 sources) Pain in finger of left hand; Translations: [Pain in left finger(s)] Onset: 9 Episodic Other connective tissue disease (20 sources) Osteophyte of bone; Translations: [Enthesopathy, unspecified] Onset: 7 11-27-2016 Episodic Other connective tissue disease (20 sources) Tenosynovitis of left radial styloid; Translations: [Radial styloid tenosynovitis [de Quervain]] Onset: 8 04-13-2018 Episodic Other connective tissue disease (20 sources) Foot pain; Translations: [Pain in unspecified foot] Onset: 7 Resolved: 1 08-30-2020 Episodic Other connective tissue disease (20 sources) Recurrent falls ; Translations: [Repeated falls] Onset: 4 01-15-2024 Episodic Other connective tissue disease (20 sources) Iliotibial band friction syndrome of right knee; Translations: [Iliotibial band syndrome, right leg] Onset: 5 Resolved: 5 08-18-2024 Episodic Other connective tissue disease (20 sources) Muscle weakness of limb; Translations: [Other symptoms and signs involving the musculoskeletal system] Onset: 5 Resolved: 5 08-25-2024 Episodic Other connective tissue disease (2 sources) Impingement syndrome of right shoulder; Translations: [Impingement syndrome of right shoulder] Onset: 5 Episodic Other connective tissue disease (2 sources) Iliotibial band syndrome, right leg; Translations: [Iliotibial band syndrome of right side] Onset: 5 Episodic Other connective tissue disease (1 source) Repeated falls; Translations: [Falls] Onset: 4 Episodic Other connective tissue disease (1 source) Other bursitis of knee, right knee; Translations: [Pes anserinus bursitis of right knee] Onset: 5 Episodic Other diseases of kidney and ureters (20 sources) Kidney lesion; Translations: [Disorder of kidney and ureter, unspecified] Onset: 5 Episodic Other diseases of kidney and ureters (1 source) Disorder of kidney and ureter, unspecified; Translations: [Renal lesion] Onset: 3 Episodic Other eye disorders (20 sources) Blepharochalasis; Translations: [Blepharochalasis unspecified eye, unspecified eyelid] Onset: 1 08-05-2010 Episodic Other gastrointestinal disorders (20 sources) History of bypass of stomach; Translations: [Bariatric surgery status] Onset: 9 12-23-2018 Episodic Other gastrointestinal disorders (20 sources) Diarrhea; Translations: [Diarrhea, unspecified] Onset: 4 Resolved: 1 08-30-2020 Episodic Other gastrointestinal disorders (1 source) Bariatric surgery status; Translations: [H/O gastric bypass] Onset: 4 Episodic Other liver diseases (1 source) Abnormal levels of other serum enzymes; Translations: [Elevated liver enzymes] Onset: 5 Episodic Other nervous system disorders (20 sources) Difficulty walking; Translations: [Difficulty in walking, not elsewhere classified] Onset: 3 Resolved: 3 10-08-2022 Chronic Other nervous system disorders (20 sources) Impaired cognition; Translations: [Other symptoms and signs involving cognitive functions and awareness] Onset: 6 05-05-2018 Episodic Other nervous system disorders (20 sources) Symbolic dysfunction; Translations: [Other symbolic dysfunctions] Onset: 7 04-22-2016 Episodic Other nervous system disorders (20 sources) Impairment of balance; Translations: [Other abnormalities of gait and mobility] Onset: 5 Resolved: 5 08-25-2024 Episodic Other non-traumatic joint disorders (20 sources) Stiffness of joint of left hand; Translations: [Stiffness of left hand, not elsewhere classified] Onset: 9 06-22-2018 Episodic Other non-traumatic joint disorders (20 sources) Metacarpophalangeal joint pain; Translations: [Pain in joints of left hand] Onset: 9 07-20-2018 Episodic Other non-traumatic joint disorders (20 sources) Pain in right knee; Translations: [Pain in joint, lower leg] Onset: 3 Resolved: 3 Episodic Other non-traumatic joint disorders (20 sources) Stiffness of right knee; Translations: [Stiffness of right knee, not elsewhere classified] Onset: 3 Resolved: 3 09-29-2022 Episodic Other non-traumatic joint disorders (3 sources) Pain in right shoulder; Translations: [Pain in joint, shoulder region] Onset: 5 03-15-2024 Episodic Other non-traumatic joint disorders (1 source) Pain in unspecified wrist; Translations: [Pain of ulnar side of wrist] Onset: 5 Episodic Other nutritional; endocrine; and metabolic disorders (20 sources) Severe obesity; Translations: [Morbid (severe) obesity due to excess calories] Onset: 9 Resolved: 1 08-30-2020 Chronic Other nutritional; endocrine; and metabolic disorders (20 sources) Obesity; Translations: [Obesity, unspecified] Onset: 9 Resolved: 1 08-30-2020 Chronic Other nutritional; endocrine; and metabolic disorders (20 sources) Obese class II; Translations: [Obesity, unspecified] Onset: 9 Resolved: 1 08-30-2020 Chronic Other screening for suspected conditions (not mental disorders or infectious disease) (4 sources) Inconclusive mammography finding; Translations: [Inconclusive mammogram] Onset: 5 Episodic Other skin disorders (20 sources) Multiple actinic keratoses; Translations: [Actinic keratosis] Onset: 7 07-30-2016 Episodic Pancreatic disorders (not diabetes) (20 sources) Cyst of pancreas; Translations: [Cyst of pancreas] Onset: 3 Episodic Residual codes; unclassified (3 sources) Pain; Translations: [Pain, unspecified] Onset: 5 Episodic Residual codes; unclassified (20 sources) Localized edema; Translations: [Localized edema] Onset: 3 Resolved: 3 10-08-2022 Episodic Residual codes; unclassified (20 sources) Postoperative state; Translations: [Other specified postprocedural states] Onset: 9 Resolved: 1 08-30-2020 Episodic Residual codes; unclassified (2 sources) Other amnesia; Translations: [Memory loss] Onset: 5 Episodic Residual codes; unclassified (1 source) Insomnia, unspecified; Translations: [Insomnia, unspecified type] Onset: 5 Episodic Residual codes; unclassified (1 source) Pain, unspecified; Translations: [Pain] Onset: 4 Episodic Screening and history of mental health and substance abuse codes (1 source) Encounter for screening examination for other mental health and behavioral disorders; Translations: [Encounter for screening examination for other mental health and behavioral disorders] Onset: 5 Episodic Sprains and strains (20 sources) Strain of muscle(s) and tendon(s) of the rotator cuff of right shoulder, subsequent encounter; Translations: [Other specified aftercare] Onset: 5 Resolved: 5 08-25-2024 Episodic Superficial injury; contusion (20 sources) Contusion of lower limb; Translations: [Contusion of left lower leg, sequela] Onset: 8 Resolved: 1 08-30-2020 Episodic Unclassified (2 sources) Primary osteoarthritis, left hand; Translations: [Primary osteoarthritis, left hand] Onset: 8 Unclassified (1 source) Patient encounter status 08-03-2024 Urinary tract infections (20 sources) Urinary tract infectious disease; Translations: [Urinary tract infection, site not specified] Onset: 3 09-04-2022 Episodic Results Test Name Value Interpretation Reference [facility]/PT/Speech Visit ( DANAOTB) MARY JANE DE PAZ ([id number]) 1950 F Date Time Provider Department 01/27/25 1:45 PM MARVIN MORELOS Date Time Provider Department Center 01/27/2025 1:45 PM [id number], ANAS*[facility]OT[facility] Reason for Visit: Occupational Therapy [504] Primary Visit Diagnosis:Post-operative state [Z98.890] Allergies As of Date: 01/27/2025 (No Known Allergies) Date Reviewed: 01/27/2025 Reviewed by: Lor Ferrell LPN - Fully Assessed Prescriptions as of 01/27/2025 - methylphenidate LA (RITALIN LA) 20 mg biphasic capsule Take 1 capsule by mouth once daily for 30 days. - methylphenidate LA (RITALIN LA) 20 mg biphasic capsule Take 1 capsule by mouth once daily for 60 days. Patient should start on January 28, 2025. - biotin 5 mg tab Take 1 tablet by mouth once daily. - FLUoxetine (PROZAC) 40 mg capsule Take 1 capsule by mouth two times a day. - levothyroxine (SYNTHROID) 100 mcg tablet Take 1 tablet by mouth once daily. - esomeprazole (NEXIUM) 40 mg capsule TAKE ONE CAPSULE BY MOUTH twice daily. - dulaglutide (TRULICITY) 0.75 mg/0.5 mL pen injector Inject 0.75 mg subcutaneously one time a week. Inject 0.75 mg once weekly - lisinopril (ZESTRIL) 20 mg tablet Take 1 tablet by mouth once daily. - atorvastatin (LIPITOR) 20 mg tablet Take 1 tablet by mouth daily at bedtime. For cholesterol. - famotidine (PEPCID) 20 mg tablet Take 1 tablet by mouth two times a day as needed (GERD). - buPROPion XL (WELLBUTRIN XL) 300 mg 24 hr tablet Take 1 tablet by mouth once daily. - traZODone (DESYREL) 100 mg tablet Take 2 tablets by mouth daily at bedtime. - Blood-Glucose Sensor (FREESTYLE JAUN 3 PLUS SENSOR) guido 1 Each every 2 weeks. CHANGE sensor every 15 days. USE FOR CONTINUOUS GLUCOSE MONITORING. Dx: E11.9 RISK FOR HYPOGLYCEMIA. - coffee xt/phosphatidyl serine (NEURIVA ORIGINAL ORAL) Take 2 tablets by mouth once daily. - APPLE CIDER VINEGAR ORAL Take 1 capsule by mouth once daily. Combined with the tumeric - lactose-reduced food (ADULT NUTRITIONAL SUPPLEMENT ORAL) (Discontinued) Take 1 capsule by mouth once daily. Tumeric - 2000mg capsule - MULTI-VITAMIN ORAL Take 1 tablet by mouth once daily. Takes bariatric multivitamin daily (contains extra calcium and iron) Normal [facility] THERAPY NTon 01-26-2025 THERAPY NT HNO ID: [id number] Author: MARVIN MORELOS OTR/L Service: ? Author Type: Occupational Therapist Type: Therapy (PT/OT/Speech/Resp) Filed: 01/26/2025 19:34 Note Text: Program_ID:[id number] Access Code: [email or web address] URL: [email or web address] Date: 01-26-2025 Prepared By: Marvin Morelos Program Notes Apply heating pad or paraffin wax prior to exercises for 10-15 minutes Exercises - Seated Wrist Extension PROM - 1 x daily - 7 x weekly - 1 sets - 5 reps - 20 hold - Seated Wrist Flexion PROM - 3 x daily - 7 x weekly - 1 sets - 3-5 reps - 20 hold - Seated Wrist Ulnar Deviation PROM - 3 x daily - 7 x weekly - 1 sets - 3- 5 reps - 20 hold - Seated Wrist Radial Deviation Stretch - 3 x daily - 7 x weekly - 1 sets - 3-5 reps - Wrist Prayer Stretch at Table - 3 x daily - 7 x weekly - 1 sets - 5 reps - 20 hold - Wrist Extension AROM - 3 x daily - 7 x weekly - 1 sets - 10 reps - Wrist Flexion Extension AROM - Palms Down - 3 x daily - 7 x weekly - 1 sets - 10 reps - Wrist AROM Radial Ulnar Deviation - 3 x daily - 7 x weekly - 1 sets - 10 reps - Seated Forearm Pronation and Supination AROM - 3 x daily - 7 x weekly - 1 sets - 10 reps - Wrist Circumduction AROM - 3 x daily - 7 x weekly - 1 sets - 10 reps Patient Education - Heat Normal [facility] THERAPY NTon 01-25-2025 THERAPY NT HNO ID: [id number] Author: MARVIN MORELOS OTR/Renny Service: ? Author Type: Occupational Therapist Type: Therapy (PT/OT/Speech/Resp) Filed: 01/25/2025 14:34 Note Text: Program_ID:[id number] Access Code: [email or web address] URL: [email or web address] Date: 01-25-2025 Prepared By: Marvin Morelos Program Notes Apply heating pad or paraffin wax prior to exercises for 10-15 minutes Exercises - Seated Wrist Extension PROM - 1 x daily - 7 x weekly - 1 sets - 5 reps - 20 hold - Seated Wrist Flexion PROM - 3 x daily - 7 x weekly - 1 sets - 3-5 reps - 20 hold - Seated Wrist Ulnar Deviation PROM - 3 x daily - 7 x weekly - 1 sets - 3- 5 reps - 20 hold - Seated Wrist Radial Deviation Stretch - 3 x daily - 7 x weekly - 1 sets - 3-5 reps - Wrist Prayer Stretch at Table - 3 x daily - 7 x weekly - 1 sets - 5 reps - 20 hold - Wrist Extension AROM - 3 x daily - 7 x weekly - 1 sets - 10 reps - Wrist Flexion Extension AROM - [place] - 3 x daily - 7 x weekly - 1 sets - 10 reps - Wrist AROM Radial Ulnar Deviation - 3 x daily - 7 x weekly - 1 sets - 10 reps - Seated Forearm Pronation and Supination AROM - 3 x daily - 7 x weekly - 1 sets - 10 reps - Wrist Circumduction AROM - 3 x daily - 7 x weekly - 1 sets - 10 reps Patient Education - Heat Normal [facility] THERAPY NTon 01-24-2025 THERAPY NT HNO ID: [id number] Author: MARVIN MORELOS OTR/Renny Service: ? Author Type: Occupational Therapist Type: Therapy (PT/OT/Speech/Resp) Filed: 01/24/2025 13:27 Note Text: Program_ID:[id number] Access Code: [email or web address] URL: [email or web address] Date: 01-24-2025 Prepared By: Marvin Morelos Program Notes Exercises - Seated Wrist Extension PROM - 1 x daily - 7 x weekly - 1 sets - 5 reps - 20 hold - Seated Wrist Flexion PROM - 3 x daily - 7 x weekly - 1 sets - 3-5 reps - 20 hold - Seated Wrist Ulnar Deviation PROM - 3 x daily - 7 x weekly - 1 sets - 3- 5 reps - 20 hold - Seated Wrist Radial Deviation Stretch - 3 x daily - 7 x weekly - 1 sets - 3-5 reps - Wrist Prayer Stretch at Table - 3 x daily - 7 x weekly - 1 sets - 5 reps - 20 hold - Wrist Extension AROM - 3 x daily - 7 x weekly - 1 sets - 10 reps - Wrist Flexion Extension AROM - [place] - 3 x daily - 7 x weekly - 1 sets - 10 reps - Wrist AROM Radial Ulnar Deviation - 3 x daily - 7 x weekly - 1 sets - 10 reps - Seated Forearm Pronation and Supination AROM - 3 x daily - 7 x weekly - 1 sets - 10 reps - Wrist Circumduction AROM - 3 x daily - 7 x weekly - 1 sets - 10 reps Normal [facility] CNOVon 01-17-2025 CNOV Office Visit (ORMDRG ) MARY JANE DE PAZ ([id number]) 1950 F Date Time Provider Department 01/17/25 11:45 AM LORETA PANDEY ORINRShirley During your visit today, we recorded the following information about you: Loreta Pandey PA-C 01/17/2025 12:01 PM Signed HAND SURGERY POST-OP NOTE Surgical Hx: Spinal cord stimulator (no MRI) Hx L IF DIP arthrodesis and bilat CTR 2014 bilat 2nd and 3rd MCP pyrocarbon arthroplasties, doing well 2018 Haidet-L DeQR 2022 R DRF Tx nonop R ulnar abutment w/ 3 mm positive ulnar variance, small lunate and ulnar head cysts Keys-multiple ulnocarpal inj, last 04/14/24 12/06/24 R Darrach w/ ECU stabilization 12/10/24 fall, R wrist injury, XRs neg 01/05/2025 cast change Interval Hx: Patient is 6 weeks post op. - Cast was removed today. - Reports pain on the dorsal aspect of the wrist and at the base of the fingers. - Noticed a new issue with the little finger popping up when trying to bring fingers together; denies this occurring before or immediately after surgery. - Able to make a fist and perform some wrist movements, but reports stiffness and mild aching. - Expresses concern about the cost of therapy and prefers to minimize visits. Exam: Right wrist Incision is fully healed No signs of infection Neurovascularly intact Able make a full fist Slight hyperextension of ring finger when extending all fingers Able to retropulse all fingers, struggles with small, couldn't quite feel small extensor firing No extension lag noted at any of the fingers No extensor tendon subluxations Able to flex and extend with no pain Almost dull prono-supination with no pain or instability Imaging: Images taken today were personally reviewed and interpreted, these revealed 3 views of right wrist demonstrating stable ulna resection. Assessment/Plan: (Z98.890) Post-operative state (primary encounter diagnosis) 1. Post-operative state (Z98.890) - Begin occupational therapy to address stiffness and improve range of motion; patient advised to attend initial sessions and request home exercises due to cost concerns. - Provided wrist brace to be worn for heavy activities for the next 1-2 weeks only; instructed not to wear it continuously or beyond this period. - Advised to gradually increase use of the wrist, avoiding heavy lifting initially, and to let pain guide activity levels. - will keep an eye on the ring finger concerns, but per patient this has already slighty inproved since 2 days ago. - Follow-up in 6 weeks. Loreta Pandey PA-C Hand Surgery The above reflects my independent exam and review. I saw and examined the patient myself personally. Parts of the HPI, ROS, exam and impression/plan may have been copied from my personal previous clinical note and remain pertinent. Current changes have been made and documented today. Other parts or date were deleted if not relevant for today. Plan as outlined. *This note was produced using speech recognition software and may contain errors related to that system including but not limited to punctuation, spelling, grammar, gender, and words or phrases that may be inappropriate. Allergies As of Date: 01/17/2025 (No Known Allergies) Date Reviewed: 01/17/2025 Reviewed by: Adelaida sHu MA - Fully Assessed Reason for Visit: Pain [78] Post Op [174] Fracture [4131] Primary Visit Diagnosis:Post-operative state [Z98.890] Order(s):XR WRIST GENERAL 3V PA/LAT/OBL RIGHT [[id number]] Order #: [id number]. #:[id number] CONSULT TO DIRECTOR OF PUBLIC HEALTH [[id number]] Order #: [id number]: 1 FUTURE Prescriptions as of 01/17/2025 - methylphenidate LA (RITALIN LA) 20 mg biphasic capsule Take 1 capsule by mouth once daily for 30 days. - methylphenidate LA (RITALIN LA) 20 mg biphasic capsule Take 1 capsule by mouth once daily for 60 days. Patient should start on January 28, 2025. - biotin 5 mg tab Take 1 tablet by mouth once daily. - FLUoxetine (PROZAC) 40 mg capsule Take 1 capsule by mouth two times a day. - levothyroxine (SYNTHROID) 100 mcg tablet Take 1 tablet by mouth once daily. - esomeprazole (NEXIUM) 40 mg capsule TAKE ONE CAPSULE BY MOUTH twice daily. - dulaglutide (TRULICITY) 0.75 mg/0.5 mL pen injector Inject 0.75 mg subcutaneously one time a week. Inject 0.75 mg once weekly - lisinopril (ZESTRIL) 20 mg tablet Take 1 tablet by mouth once daily. - atorvastatin (LIPITOR) 20 mg tablet Take 1 tablet by mouth daily at bedtime. For cholesterol. - famotidine (PEPCID) 20 mg tablet Take 1 tablet by mouth two times a day as needed (GERD). - buPROPion XL (WELLBUTRIN XL) 300 mg 24 hr tablet Take 1 tablet by mouth once daily. - traZODone (DESYREL) 100 mg tablet Take 2 tablets by mouth daily at bedtime. - Blood-Glucose Sensor (FREESTYLE JAUN 3 PLUS SENSOR) guido 1 Each every 2 weeks. CHANGE sen (more content not included)... Normal [facility] Office Visit (ORMDNA ) MARY JANE DE PAZ ([id number]) 1950 F Date Time Provider Department 01/17/25 11:20 AM CAST TECH [facility] ORMDNA During your visit today, we recorded the following information about you: Peyton Montague Timothy Grullon 01/17/2025 11:57 AM Signed PT ASSESSMENT - CASTING ROOM Mary Jane presents for cast removal and Application of a Titan wrist brace. Peyton Montague Timothy Grullon Allergies As of Date: 01/17/2025 (No Known Allergies) Date Reviewed: 01/17/2025 Reviewed by: Adelaida Hsu MA - Fully Assessed Primary Visit Diagnosis:Cast removal [Z46.89] Prescriptions as of 01/17/2025 - methylphenidate LA (RITALIN LA) 20 mg biphasic capsule Take 1 capsule by mouth once daily for 30 days. - methylphenidate LA (RITALIN LA) 20 mg biphasic capsule Take 1 capsule by mouth once daily for 60 days. Patient should start on January 28, 2025. - biotin 5 mg tab Take 1 tablet by mouth once daily. - FLUoxetine (PROZAC) 40 mg capsule Take 1 capsule by mouth two times a day. - levothyroxine (SYNTHROID) 100 mcg tablet Take 1 tablet by mouth once daily. - esomeprazole (NEXIUM) 40 mg capsule TAKE ONE CAPSULE BY MOUTH twice daily. - dulaglutide (TRULICITY) 0.75 mg/0.5 mL pen injector Inject 0.75 mg subcutaneously one time a week. Inject 0.75 mg once weekly - lisinopril (ZESTRIL) 20 mg tablet Take 1 tablet by mouth once daily. - atorvastatin (LIPITOR) 20 mg tablet Take 1 tablet by mouth daily at bedtime. For cholesterol. - famotidine (PEPCID) 20 mg tablet Take 1 tablet by mouth two times a day as needed (GERD). - buPROPion XL (WELLBUTRIN XL) 300 mg 24 hr tablet Take 1 tablet by mouth once daily. - traZODone (DESYREL) 100 mg tablet Take 2 tablets by mouth daily at bedtime. - Blood-Glucose Sensor (FREESTYLE JAUN 3 PLUS SENSOR) guido 1 Each every 2 weeks. CHANGE sensor every 15 days. USE FOR CONTINUOUS GLUCOSE MONITORING. Dx: E11.9 RISK FOR HYPOGLYCEMIA. - coffee xt/phosphatidyl serine (NEURIVA ORIGINAL ORAL) Take 2 tablets by mouth once daily. - APPLE CIDER VINEGAR ORAL Take 1 capsule by mouth once daily. Combined with the tumeric - lactose-reduced food (ADULT NUTRITIONAL SUPPLEMENT ORAL) (Discontinued) Take 1 capsule by mouth once daily. Tumeric - 2000mg capsule - MULTI-VITAMIN ORAL Take 1 tablet by mouth once daily. 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] 08/05/2010 HTN (hypertension) [I10] 12/05/2011 10/14/2014 Hyperlipidemia [E78.5] 08/04/2012 Hypothyroid [E03.9] 11/28/2012 Generalized postprandial abdominal pain [R10.84]09/01/2013 Diarrhea [R19.7] 09/01/2013 08/30/2020 IBS (irritable bowel syndrome) [K58.9] 09/01/2013 Moderate episode of recurrent major depressive *04/28/2014 Essential hypertension [I10] 10/14/2014 MARIBEL (obstructive sleep apnea) [G47.33] 09/17/2015 Cognitive decline [R41.89] 01/10/2016 Other symbolic dysfunction [R48.8] 04/22/2016 Actinic keratoses [L57.0] 07/30/2016 GERD without esophagitis [K21.9] 10/09/2016 Encounter for screening colonoscopy [Z12.11] 10/09/2016 08/30/2020 Pain of foot [M79.673] 11/27/2016 08/30/2020 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9] 11/27/2016 Hypertensive kidney disease with stage 3 chroni*04/13/2017 Contusion of leg, left, sequela [S80.12XS] 04/30/2017 08/30/2020 De Quervain's tenosynovitis, left [M65.4] 01/09/2018 Post-operative state [Z98.890] 05/26/2018 08/30/2020 Joint stiffness of hand, left [M25.642] 06/22/2018 Metacarpophalangeal joint pain of left hand [M2*07/20/2018 Finger pain, left [M79.645] 07/20/2018 Class 3 severe obesity with serious comorbidity*08/19/2018 08/30/2020 Asthma [J45.909] Stage 3 chronic kidney disease (HCC) [N18.30] 11/01/2018 Obesity [E66.9] 12/14/2018 08/30/2020 Obesity, Class II, BMI 35-39.9 [E66.812] 12/17/2018 08/30/2020 H/O gastric bypass [Z98.84] 12/23/2018 Closed displaced fracture of right femoral neck*11/17/2021 Hyponatremia [E87.1] 11/17/2021 Hip fracture requiring operative repair, right,*11/17/2021 Coronary artery disease [I25.10] 10/28/2017 05/12/2022 Type 2 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 (HCC) [E11.9] Renal lesion [N28.9] 01/15/2015 Osteoarthritis of right hip, unspecified osteoa*07/09/2022 07/09/2022 History of total hip replacement, right [Z96.64*08/27/2022 History of total knee replacement, left [Z96.65*08/27/2022 Coronary artery disease involving blackfeet manley*09/04/2022 UTI (urinary tract infection) [N39.0] 09/04/2022 S/P total knee arthroplasty, right [Z96.651] 09/16/2022 01/21/2023 Stiffness of right knee [M25.661] 10/08/2022 01/21/2023 Acute pain of right knee [M25.561] 10/08/2022 01/21/2023 Difficulty walking [R26.2] 10/08/2022 01/21/2023 (more content not included)... Normal [facility] XR WRIST 3V PA/LAT/OBL RTon 01-17-2025 XR WRIST 3V PA/LAT/OBL RT * * *Final Report* * * DATE OF EXAM: Jan 17 2025 11:46AM FINA [id number] - XR WRIST 3V PA/LAT/OBL RT / PROCEDURE REASON: Z98.451-[id number]-qefiqcezu state * * * * Physician Interpretation * * * * EXAMINATION / TECHNIQUE: XR WRIST 3V PA/LAT/OBL RT HISTORY: DISTAL ULNA RESECTION RIGHT WRIST Post-operative state COMPARISON: 12/21/2024. RESULT: See Impression IMPRESSION: The distal ulna has been resected. There is widening of the scapholunate interval. There is mild triscaphe and moderate first CMC joint osteoarthritis. There are partially imaged index and long finger MCP joint arthroplasties. Senior Laboratory Technician: PSCB Transcribe Date/Time: Jan 24 2025 7:02P Dictated by : MAHSA SOLIS MD This examination was interpreted and the report reviewed and electronically signed by: MAHSA SOLIS MD on Jan 24 2025 7:03PM EST [id number] [facility] 01-16-2025 [facility] Telephone (AGPOB1) MARY JANE DE PAZ ([id number]) 1950 F Date Time Provider Department 01/16/25 ISH HIGGINS AGPOB1 During your visit today, we recorded the following information about you: Cali Zhou 01/16/2025 3:53 PM Signed ----- Message from Saima Jain sent at 01/16/2025 3:17 PM EDT ----- Regarding: [id number] op- canceled per office ? Subject Line Format: Orthopedics / [Provider Name or Open AND Body Part] / [Issue] Patient has been identified by name and Date of (Y/N): y Patient: Mary Jane Lawson Baldev Date of : 1950 Previous Provider Seen: ronaldo Body Part(s) Identified: r hand Diagnosis/Reason For Visit: post op Reason for the call/escalation: patient wants to see dr higgins on Thursday 115pm If reason for call/escalation is discharge from ED/ER or Hospital, which facility was the patient seen at: n/a Was an appointment scheduled (Y/N): n/a Person calling if other than patient: n/a Return call to if other than patient: n/a Best contact number: [phone] Thank you, Saima Huitron January 16, 2025 3:18 PM Cali Zhou 01/16/2025 3:54 PM Signed OB, sw patient. Confirmed appt with Dr. Higgins had been canceled as patient was already scheduled with [facility] earlier in the week for same issue. Allergies As of Date: 01/16/2025 (No Known Allergies) Date Reviewed: 12/22/2024 Reviewed by: Ish Higgins MD - Fully Assessed Prescriptions as of 01/16/2025 - methylphenidate LA (RITALIN LA) 20 mg biphasic capsule Take 1 capsule by mouth once daily for 30 days. - methylphenidate LA (RITALIN LA) 20 mg biphasic capsule Take 1 capsule by mouth once daily for 60 days. Patient should start on January 28, 2025. - biotin 5 mg tab Take 1 tablet by mouth once daily. - FLUoxetine (PROZAC) 40 mg capsule Take 1 capsule by mouth two times a day. - levothyroxine (SYNTHROID) 100 mcg tablet Take 1 tablet by mouth once daily. - esomeprazole (NEXIUM) 40 mg capsule TAKE ONE CAPSULE BY MOUTH twice daily. - dulaglutide (TRULICITY) 0.75 mg/0.5 mL pen injector Inject 0.75 mg subcutaneously one time a week. Inject 0.75 mg once weekly - lisinopril (ZESTRIL) 20 mg tablet Take 1 tablet by mouth once daily. - atorvastatin (LIPITOR) 20 mg tablet Take 1 tablet by mouth daily at bedtime. For cholesterol. - famotidine (PEPCID) 20 mg tablet Take 1 tablet by mouth two times a day as needed (GERD). - buPROPion XL (WELLBUTRIN XL) 300 mg 24 hr tablet Take 1 tablet by mouth once daily. - traZODone (DESYREL) 100 mg tablet Take 2 tablets by mouth daily at bedtime. - Blood-Glucose Sensor (FREESTYLE JAUN 3 PLUS SENSOR) guido 1 Each every 2 weeks. CHANGE sensor every 15 days. USE FOR CONTINUOUS GLUCOSE MONITORING. Dx: E11.9 RISK FOR HYPOGLYCEMIA. - coffee xt/phosphatidyl serine (NEURIVA ORIGINAL ORAL) Take 2 tablets by mouth once daily. - APPLE CIDER VINEGAR ORAL Take 1 capsule by mouth once daily. Combined with the tumeric - lactose-reduced food (ADULT NUTRITIONAL SUPPLEMENT ORAL) (Discontinued) Take 1 capsule by mouth once daily. Tumeric - 2000mg capsule - MULTI-VITAMIN ORAL Take 1 tablet by mouth once daily. 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] 08/05/2010 HTN (hypertension) [I10] 12/05/2011 10/14/2014 Hyperlipidemia [E78.5] 08/04/2012 Hypothyroid [E03.9] 11/28/2012 Generalized postprandial abdominal pain [R10.84]09/01/2013 Diarrhea [R19.7] 09/01/2013 08/30/2020 IBS (irritable bowel syndrome) [K58.9] 09/01/2013 Moderate episode of recurrent major depressive *04/28/2014 Essential hypertension [I10] 10/14/2014 MARIBEL (obstructive sleep apnea) [G47.33] 09/17/2015 Cognitive decline [R41.89] 01/10/2016 Other symbolic dysfunction [R48.8] 04/22/2016 Actinic keratoses [L57.0] 07/30/2016 GERD without esophagitis [K21.9] 10/09/2016 Encounter for screening colonoscopy [Z12.11] 10/09/2016 08/30/2020 Pain of foot [M79.673] 11/27/2016 08/30/2020 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9] 11/27/2016 Hypertensive kidney disease with stage 3 chroni*04/13/2017 Contusion of leg, left, sequela [S80.12XS] 04/30/2017 08/30/2020 De Quervain's tenosynovitis, left [M65.4] 01/09/2018 Post-operative state [Z98.890] 05/26/2018 08/30/2020 Joint stiffness of hand, left [M25.642] 06/22/2018 Metacarpophalangeal joint pain of left hand [M2*07/20/2018 Finger pain, left [M79.645] 07/20/2018 Class 3 severe obesity with serious comorbidity*08/19/2018 08/30/2020 Asthma [J45.909] Stage 3 chronic kidney disease (HCC) [N18.30] 11/01/2018 Obesity [E66.9] 12/14/2018 08/30/2020 Obesity, Class II, BMI 35-39.9 [E66.812] 0 (more content not included)... Normal [facility] CNOVon 01-05-2025 CN Office Visit (ORMDNA ) MARY JANE DE PAZ ([id number]) 1950 F Date Time Provider Department 01/05/25 1:00 PM CAST TECH [facility] During your visit today, we recorded the following information about you: Peyton Montague Cast Tech 01/05/2025 1:18 PM Signed PT ASSESSMENT - CASTING ROOM Mary Jane presents for cast removal and Application of cast. Applied short cast: to Right arm Patient has been instructed in Care of cast.. Timothy Piña Allergies As of Date: 01/05/2025 (No Known Allergies) Date Reviewed: 12/22/2024 Reviewed by: Ish Higgins MD - Fully Assessed Primary Visit Diagnosis:Cast removal [Z46.89] Prescriptions as of 01/05/2025 - methylphenidate LA (RITALIN LA) 20 mg biphasic capsule Take 1 capsule by mouth once daily for 30 days. - methylphenidate LA (RITALIN LA) 20 mg biphasic capsule Take 1 capsule by mouth once daily for 60 days. Patient should start on January 28, 2025. - biotin 5 mg tab Take 1 tablet by mouth once daily. - FLUoxetine (PROZAC) 40 mg capsule Take 1 capsule by mouth two times a day. - levothyroxine (SYNTHROID) 100 mcg tablet Take 1 tablet by mouth once daily. - esomeprazole (NEXIUM) 40 mg capsule TAKE ONE CAPSULE BY MOUTH twice daily. - dulaglutide (TRULICITY) 0.75 mg/0.5 mL pen injector Inject 0.75 mg subcutaneously one time a week. Inject 0.75 mg once weekly - lisinopril (ZESTRIL) 20 mg tablet Take 1 tablet by mouth once daily. - atorvastatin (LIPITOR) 20 mg tablet Take 1 tablet by mouth daily at bedtime. For cholesterol. - famotidine (PEPCID) 20 mg tablet Take 1 tablet by mouth two times a day as needed (GERD). - buPROPion XL (WELLBUTRIN XL) 300 mg 24 hr tablet Take 1 tablet by mouth once daily. - traZODone (DESYREL) 100 mg tablet Take 2 tablets by mouth daily at bedtime. - Blood-Glucose Sensor (MobileVedaSTYLE JAUN 3 PLUS SENSOR) guido 1 Each every 2 weeks. CHANGE sensor every 15 days. USE FOR CONTINUOUS GLUCOSE MONITORING. Dx: E11.9 RISK FOR HYPOGLYCEMIA. - coffee xt/phosphatidyl serine (NEURIVA ORIGINAL ORAL) Take 2 tablets by mouth once daily. - APPLE CIDER VINEGAR ORAL Take 1 capsule by mouth once daily. Combined with the tumeric - lactose-reduced food (ADULT NUTRITIONAL SUPPLEMENT ORAL) (Discontinued) Take 1 capsule by mouth once daily. Tumeric - 2000mg capsule - MULTI-VITAMIN ORAL Take 1 tablet by mouth once daily. 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] 08/05/2010 HTN (hypertension) [I10] 12/05/2011 10/14/2014 Hyperlipidemia [E78.5] 08/04/2012 Hypothyroid [E03.9] 11/28/2012 Generalized postprandial abdominal pain [R10.84]09/01/2013 Diarrhea [R19.7] 09/01/2013 08/30/2020 IBS (irritable bowel syndrome) [K58.9] 09/01/2013 Moderate episode of recurrent major depressive *04/28/2014 Essential hypertension [I10] 10/14/2014 MARIBEL (obstructive sleep apnea) [G47.33] 09/17/2015 Cognitive decline [R41.89] 01/10/2016 Other symbolic dysfunction [R48.8] 04/22/2016 Actinic keratoses [L57.0] 07/30/2016 GERD without esophagitis [K21.9] 10/09/2016 Encounter for screening colonoscopy [Z12.11] 10/09/2016 08/30/2020 Pain of foot [M79.673] 11/27/2016 08/30/2020 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9] 11/27/2016 Hypertensive kidney disease with stage 3 chroni*04/13/2017 Contusion of leg, left, sequela [S80.12XS] 04/30/2017 08/30/2020 De Quervain's tenosynovitis, left [M65.4] 01/09/2018 Post-operative state [Z98.890] 05/26/2018 08/30/2020 Joint stiffness of hand, left [M25.642] 06/22/2018 Metacarpophalangeal joint pain of left hand [M2*07/20/2018 Finger pain, left [M79.645] 07/20/2018 Class 3 severe obesity with serious comorbidity*08/19/2018 08/30/2020 Asthma [J45.909] Stage 3 chronic kidney disease (HCC) [N18.30] 11/01/2018 Obesity [E66.9] 12/14/2018 08/30/2020 Obesity, Class II, BMI 35-39.9 [E66.812] 12/17/2018 08/30/2020 H/O gastric bypass [Z98.84] 12/23/2018 Closed displaced fracture of right femoral neck*11/17/2021 Hyponatremia [E87.1] 11/17/2021 Hip fracture requiring operative repair, right,*11/17/2021 Coronary artery disease [I25.10] 10/28/2017 05/12/2022 Type 2 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 (HCC) [E11.9] Renal lesion [N28.9] 01/15/2015 Osteoarthritis of right hip, unspecified osteoa*07/09/2022 07/09/2022 History of total hip replacement, right [Z96.64*08/27/2022 History of total knee replacement, left [Z96.65*08/27/2022 Coronary artery disease involving blackfeet manley*09/04/2022 UTI (urinary tract infection) [N39.0] 09/04/2022 S/P total knee arthroplasty, right [Z96.651] 09/16/2022 01/21/2023 Stiffness of right knee [M25.661] 10/08/2022 01/21/2023 Acute pain of right knee [M25.561] 07 (more content not included)... Normal [facility] CNOVon 12-21-2024 CNOV Office Visit (AGPOB3 ) MARY JANE DE PAZ ([id number]) 1950 F Date Time Provider Department 12/21/24 3:15 PM ISH HIGGINS AGPOB3 During your visit today, we recorded the following information about you: Respiration Weight Height 18/minute 57.2 kg 1.575 m Kim Lynne Tech 12/22/2024 8:24 AM Marco madera for Application of cast. Applied/Re-applied Short Arm Cast to Right wrist The patient and/or family member have been instructed in the following: Do not get cast wet, or place/stick anything inside the cast. The patient was instructed to be NWB. Care of cast. Patient to keep follow up appointment as scheduled. Yadi Zheng Nicholas P, MD 12/22/2024 8:24 AM Signed Hand Clinic Post-op Note Surgical Hx: Spinal cord stimulator (no MRI) Hx L IF DIP arthrodesis and bilat CTR 2015 bilat 2nd and 3rd MCP pyrocarbon arthroplasties, doing well 2018 TirsoebonyKarena DeQR 2022 R DRF Tx nonop R ulnar abutment w/ 3 mm positive ulnar variance, small lunate and ulnar head cysts Keys-multiple ulnocarpal inj, last 04/14/24 12/06/24 R Darrach w/ ECU stabilization 12/10/24 fall, R wrist injury, XRs neg Interval Hx: The patient is a 74-year-old female presenting for evaluation of right wrist pain and cast management following a fall. Wrist Pain: - Recent fall on 01/09, resulting in increased wrist pain. - Pain radiates to the elbow and is present in areas that were not previously painful. - Requests additional pain medication. - Denies significant pain when making a fist or during specific movements. - Reports cold hands consistently. Exam: - Musculoskeletal: - Right Wrist and Hand: - Well-healed ulnar incision; full sensation around the incision and over the dorsal cutaneous branch of the ulnar nerve. - Full fist formation; full retropulsion of the index, long, ring, and small fingers. - Mild tenderness over the volar scaphoid tubercle; no tenderness in the anatomical snuffbox. - Minimal pronation and supination without crepitus. - FPL and APL firing intact. Imaging: R wrist XRs 3 views, no new frx Assessment/Plan: (Z98.890) Post-operative state (primary encounter diagnosis) New and/or prior imaging was reviewed with the pt 1. Post-operative state (Z98.890) - Recent fall on resulted in increased wrist pain; X-rays from reviewed and compared to prior imaging, no new fractures identified. - Exam: well-healed ulnar incision, full sensation around incision and over dorsal cutaneous branch of ulnar nerve, minimal pronation and supination without crepitus, no tenderness in snuffbox, mild tenderness over volar scaphoid tubercle, full retropulsion of index, long, ring, and small fingers. - Explained that increased pain is likely due to recent trauma to a surgically treated area; no evidence of surgical disruption. - Applied new cast. - Advised no heavy lifting and to continue finger movements as tolerated. - Follow-up in [place] in 2 weeks for cast change, then again in 4 weeks. I also sent some pain meds Ish P Satariano, MD Hand Surgery *The above reflects my independent exam and review. I saw and examined the patient myself personally. Parts of the HPI, ROS, exam, and impression/plan may have been copied from my previous clinical note and remain pertinent. Current changes have been made and documented today. Other parts or date were deleted if not relevant for today. Plan as outlined.* *This note was produced using speech recognition software and may contain errors related to that system including but not limited to punctuation, spelling, grammar, gender, and words or phrases that may be inappropriate.* *The patient consented to the use of ambient Unomy software for draft documentation of the visit consistent with [facility] Notice of Privacy Practices.* Allergies As of Date: 12/21/2024 (No Known Allergies) Date Reviewed: 12/21/2024 Reviewed by: Kim Lynne Tech - Fully Assessed Reason for Visit: Post Op [174] Established Patient [175] Primary Visit Diagnosis:Post-operative state [Z98.890] Order(s):XR WRIST GENERAL 3V PA/LAT/OBL RIGHT [[id number]] Order #: [id number] oxyCODONE-acetaminophen (PERCOCET) 5-325 mg tabletTake 1 tablet by mouth every 6 hours as needed for up to 5 days. One to two tablets every four to six hours as needed for pain.Disp: 10 tabletRfl: 0 Prescriptions as of 12/22/2024 - oxyCODONE-acetaminophen (PERCOCET) 5-325 mg tablet Take 1 tablet by mouth every 6 hours as needed for up to 5 days. One to two tablets every four to six hours as needed for pain. - methylphenidate LA (RITALIN LA) 20 mg biphasic capsule Take 1 capsule by mouth once daily for 30 days. - lisdexamfetamine (VYVANSE) 10 mg capsule Take 1 capsule by mouth once daily for 30 days. - biotin 5 mg tab Take 1 ta (more content not included)... Normal [facility] CNOVon 12-15-2024 CNOV Office Visit (AGPOB3 ) MARY JANE DE PAZ ([id number]) 1950 F Date Time Provider Department 12/15/24 1:45 PM ISH HIGGINS AGPOB3 During your visit today, we recorded the following information about you: Respiration Weight Height 18/minute 57.2 kg 1.575 m Loreta Pandey PA-C 12/15/2024 1:34 PM Signed HAND SURGERY POST-OP NOTE Surgical Hx: Spinal cord stimulator (no MRI) Hx L IF DIP arthrodesis and bilat CTR 2014 bilat 2nd and 3rd MCP pyrocarbon arthroplasties, doing well 2018 DonnatNeema DeQR 2022 R DRF Tx nonop 12/06/2024 right direct with ECU stabilization Interval Hx: Patient is 9 days post op. She is doing well. Admits to experiencing some pain but has been taking Percocet as needed as well as Tylenol. Exam: Right wrist Incision healing nicely, no signs of infection. Sutures intact. Dorsal cutaneous nerve intact, median, ulnar and radial nerve distribution intact. Able to make a fist with no pain. Able to very gently flex and extend at the wrist without major discomfort. No instability noted of the ulna. Able to retropulse all 5 fingers of table. Imaging: Images taken today were personally reviewed and interpreted, these revealed 3 views of right wrist demonstrating stable ulna resection. 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 At this point she will transition into a hide short arm cast. She will be in this for total of 6 weeks postop. She will keep the cast dry and clean at all times. Sutures were removed today, she tolerated well. Will be nonweightbearing. Encouraged to work on motion of her fingers and to make a fist. I advised to feel free to request a refill of her pain medication when needed. She is unable to take NSAIDs . She will come back in 2 weeks for tech visit at [facility]. Follow-up in [address] Higgins at [facility] Patient was also evaluated by Dr Ish Pandey PA-C Hand Surgery The above reflects my independent exam and review. I saw and examined the patient myself personally. Parts of the HPI, ROS, exam and impression/plan may have been copied from my personal previous clinical note and remain pertinent. Current changes have been made and documented today. Other parts or date were deleted if not relevant for today. Plan as outlined. *This note was produced using speech recognition software and may contain errors related to that system including but not limited to punctuation, spelling, grammar, gender, and words or phrases that may be inappropriate. Say Blakely Tech 12/15/2024 2:21 PM Signed The patient presents for a cast. Applied a high short arm cast to the patient's right wrist. The patient has been instructed in the following: Do not get cast wet, or place/stick anything inside the cast. The patient was instructed to be NWB and also in the care of cast.. The patient was instructed to keep their follow up appointment as scheduled. Yadi Paredes December 15, 2024 2:21 PM Allergies As of Date: 12/15/2024 (No Known Allergies) Date Reviewed: 12/15/2024 Reviewed by: Say Blakely Tech - Fully Assessed Reason for Visit: Post Op [174] Primary Visit Diagnosis: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] Other Visit Diagnosis:Post-operative state [Z98.890] Order(s):XR WRIST GENERAL 3V PA/LAT/OBL RIGHT [[id number]] Order #: [id number] Prescriptions as of 12/15/2024 - oxyCODONE-acetaminophen (PERCOCET) 5-325 mg tablet Take 1 tablet by mouth every 6 hours as needed for pain for up to 3 days. - methylphenidate LA (RITALIN LA) 20 mg biphasic capsule Take 1 capsule by mouth once daily for 30 days. - lisdexamfetamine (VYVANSE) 10 mg capsule Take 1 capsule by mouth once daily for 30 days. - biotin 5 mg tab Take 1 tablet by mouth once daily. - FLUoxetine (PROZAC) 40 mg capsule Take 1 capsule by mouth two times a day. - levothyroxine (SYNTHROID) 100 mcg tablet Take 1 tablet by mouth once daily. - esomeprazole (NEXIUM) 40 mg capsule TAKE ONE CAPSULE BY MOUTH twice daily. - dulaglutide (TRULICITY) 0.75 mg/0.5 mL pen injector Inject 0.75 mg subcutaneously one time a week. Inject 0.75 mg once weekly - lisinopril (ZESTRIL) 20 mg tablet Take 1 tablet by mouth once daily. - atorvastatin (LIPITOR) 20 mg tablet Take 1 tablet by mouth daily at bedtime. For cholesterol. - famotidine (PEPCID) 20 mg tablet Take 1 tablet by mouth two times a day as needed (GERD). - buPROPion XL (WELLBUTRIN XL) 300 mg 24 hr tablet Take 1 tablet by mouth once daily. - traZODone (DESYREL) 100 mg tablet Take 2 tablets by mouth daily at bedtime. - Blood-Glucose Sensor (MobileVedaSTYLE JAUN 3 PLUS SENSOR) guido 1 Each every 2 weeks. CHANGE sensor every 15 days. USE FOR CONTINUOUS GLUCOSE MONITORING. Dx: E11.9 RISK FOR HYPOGLYCEMIA. - (more content not included)... Normal [facility]07[facility] MARY JANE DE PAZ ([id number]) 1950 F Date Time Provider Department 12/07/24 ISH HIGGINS AGB1 During your visit today, we recorded the following information about you: Cali Zhou 12/07/2024 4:39 PM Signed OB to patient, returning call regarding pain. Advised per Dr. Higgins: Oxy, ibuprofen, tylenol all staggered she may need to do the pain meds every 4 rather than every 6 today is the worst day, will get better strict elevation Allergies As of Date: 12/07/2024 (No Known Allergies) Date Reviewed: 12/06/2024 Reviewed by: Mary Sheriff, RN - Fully Assessed Prescriptions as of 12/07/2024 - oxyCODONE-acetaminophen (PERCOCET) 5-325 mg tablet Take 1 tablet by mouth every 4 hours as needed for pain for up to 5 days. - methylphenidate LA (RITALIN LA) 20 mg biphasic capsule Take 1 capsule by mouth once daily for 30 days. - lisdexamfetamine (VYVANSE) 10 mg capsule Take 1 capsule by mouth once daily for 30 days. - biotin 5 mg tab Take 1 tablet by mouth once daily. - FLUoxetine (PROZAC) 40 mg capsule Take 1 capsule by mouth two times a day. - levothyroxine (SYNTHROID) 100 mcg tablet Take 1 tablet by mouth once daily. - esomeprazole (NEXIUM) 40 mg capsule TAKE ONE CAPSULE BY MOUTH twice daily. - dulaglutide (TRULICITY) 0.75 mg/0.5 mL pen injector Inject 0.75 mg subcutaneously one time a week. Inject 0.75 mg once weekly - lisinopril (ZESTRIL) 20 mg tablet Take 1 tablet by mouth once daily. - atorvastatin (LIPITOR) 20 mg tablet Take 1 tablet by mouth daily at bedtime. For cholesterol. - famotidine (PEPCID) 20 mg tablet Take 1 tablet by mouth two times a day as needed (GERD). - buPROPion XL (WELLBUTRIN XL) 300 mg 24 hr tablet Take 1 tablet by mouth once daily. - traZODone (DESYREL) 100 mg tablet Take 2 tablets by mouth daily at bedtime. - Blood-Glucose Sensor (FREESTYLE JAUN 3 PLUS SENSOR) guido 1 Each every 2 weeks. CHANGE sensor every 15 days. USE FOR CONTINUOUS GLUCOSE MONITORING. Dx: E11.9 RISK FOR HYPOGLYCEMIA. - coffee xt/phosphatidyl serine (NEURIVA ORIGINAL ORAL) Take 2 tablets by mouth once daily. - APPLE CIDER VINEGAR ORAL Take 1 capsule by mouth once daily. Combined with the tumeric - lactose-reduced food (ADULT NUTRITIONAL SUPPLEMENT ORAL) (Discontinued) Take 1 capsule by mouth once daily. Tumeric - 2000mg capsule - MULTI-VITAMIN ORAL Take 1 tablet by mouth once daily. 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] 08/05/2010 HTN (hypertension) [I10] 12/05/2011 10/14/2014 Hyperlipidemia [E78.5] 08/04/2012 Hypothyroid [E03.9] 11/28/2012 Generalized postprandial abdominal pain [R10.84]09/01/2013 Diarrhea [R19.7] 09/01/2013 08/30/2020 IBS (irritable bowel syndrome) [K58.9] 09/01/2013 Moderate episode of recurrent major depressive *04/28/2014 Essential hypertension [I10] 10/14/2014 MARIBEL (obstructive sleep apnea) [G47.33] 09/17/2015 Cognitive decline [R41.89] 01/10/2016 Other symbolic dysfunction [R48.8] 04/22/2016 Actinic keratoses [L57.0] 07/30/2016 GERD without esophagitis [K21.9] 10/09/2016 Encounter for screening colonoscopy [Z12.11] 10/09/2016 08/30/2020 Pain of foot [M79.673] 11/27/2016 08/30/2020 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9] 11/27/2016 Hypertensive kidney disease with stage 3 chroni*04/13/2017 Contusion of leg, left, sequela [S80.12XS] 04/30/2017 08/30/2020 De Quervain's tenosynovitis, left [M65.4] 01/09/2018 Post-operative state [Z98.890] 05/26/2018 08/30/2020 Joint stiffness of hand, left [M25.642] 06/22/2018 Metacarpophalangeal joint pain of left hand [M2*07/20/2018 Finger pain, left [M79.645] 07/20/2018 Class 3 severe obesity with serious comorbidity*08/19/2018 08/30/2020 Asthma [J45.909] Stage 3 chronic kidney disease (HCC) [N18.30] 11/01/2018 Obesity [E66.9] 12/14/2018 08/30/2020 Obesity, Class II, BMI 35-39.9 [E66.812] 12/17/2018 08/30/2020 H/O gastric bypass [Z98.84] 12/23/2018 Closed displaced fracture of right femoral neck*11/17/2021 Hyponatremia [E87.1] 11/17/2021 Hip fracture requiring operative repair, right,*11/17/2021 Coronary artery disease [I25.10] 10/28/2017 05/12/2022 Type 2 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 (HCC) [E11.9] Renal lesion [N28.9] 01/15/2015 Osteoarthritis of right hip, unspecified osteoa*07/09/2022 07/09/2022 History of total hip replacement, right [Z96.64*08/27/2022 History of total knee replacement, left [Z96.65*08/27/2022 Coronary artery disease involving blackfeet manley*09/04/2022 UTI (urinary tract infection) [N39.0] 09/04/2022 S/P total knee arthroplasty, right [Z96.651] 09/16/2022 01/21/2023 Stiffness of right knee [M25.661] 10/08/2022 01/21/2023 (more content not included)... Normal [facility] ANES POSTPROC EVALon 025 ANES POSTPROC EVAL HNO ID: [id number] Author: ISH BERMEO MD Service: Anesthesiology Author Type: Anesthesiologist Type: Anesthesia Postprocedure Evaluation Filed: 12/06/2024 10:19 Note Text: POST ANESTHESIA EVALUATION NOTE : 1950 Procedure Summary Date: 12/06/24 [facility] / [facility] Anesthesia Start: 747 Anesthesia Stop: 945 Procedures: EXCISION DISTAL ULNA, RIGHT (Right: Wrist) TRANSPLANT OR TRANFER TENDON FLEXOR OR EXTENSOR FOREARM AND/OR WRIST SINGLE (Right: Wrist) Diagnosis: Ulnar abutment syndrome of right wrist (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]) Surgeons: Ish Higgins MD Responsible Provider: Ish Bermeo MD Anesthesia Type: MAC ASA Status: 3 Anesthesia Type: MAC Last Vitals Vitals Value Taken Time BP 173/81 12/06/24 10:15 Temp 36.6 ?C (97.9 ?F) 12/06/24 09:55 Pulse 64 12/06/24 10:17 Resp 15 12/06/24 10:17 SpO2 97 % 12/06/24 10:17 Vitals shown include unfiled device data. Post Anesthesia Patient Status Patient Evaluation: bedside. Anticipated Disposition: phase 2 then home. Neurological Status: aware and responsive. Pulmonary Status: breathing comfortably on room air Airway Control: returned to baseline unsupported. Cardiovascular Status: stable. Pain Management: clinically adequate Postoperative Hydration: acceptable. Intraoperative Events: no significant anesthesia events Post Operative Nausea/Vomiting Status: no significant post operative nausea or vomiting Recommendation: continue current plan of care. Anesthesia Observations No Documentation SIGNATURE: Ish Bermeo MD PATIENT NAME: Mary Jane De Paz DATE: December 06, 2024 TIME: 10:19 AM CSN: [id number] [facility] ANES PRE-OPon 12-06-2024 ANES PRE-OP HNO ID: [id number] Author: ISH BERMEO MD Service: Anesthesiology Author Type: Anesthesiologist Type: Anesthesia Preprocedure Evaluation Filed: 12/06/2024 07:31 Note Text: ANESTHESIOLOGY DAY OF SURGERY NOTE : 1950 Procedure Information Date/Time: 12/06/24 0800 Procedures: EXCISION DISTAL ULNA, RIGHT (Right: Wrist) TRANSPLANT OR TRANFER TENDON FLEXOR OR EXTENSOR FOREARM AND/OR WRIST SINGLE (Right: Wrist) [facility]: [facility] Surgeons: Ish Higgins MD Estimated body mass index is 23.79 kg/m? as calculated from the following: Height as of 11/15/24: 157.5 cm (5' 2). Weight as of 11/23/24: 59 kg (130 lb 1.1 oz). Most recent hematocrit and potassium results: Hematocrit 39.5 09/21/2024 Potassium 4.8 09/21/2024 Relevant Problems ANESTHESIA (+) MARIBEL (obstructive sleep apnea) (+) Post-operative nausea and vomiting CARDIO (+) Coronary artery disease involving blackfeet coronary artery of blackfeet heart without angina pectoris (+) Essential hypertension ENDO (+) Hypothyroid (+) Type 2 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 (HCC) (+) Type 2 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 with stage 3 chronic kidney disease, without long-term current use of insulin (HCC) GI (+) GERD without esophagitis -RENAL (+) Hypertensive kidney disease with stage 3 chronic kidney disease (HCC) (+) Renal lesion (+) Stage 3 chronic kidney disease (HCC) NEURO-PSYCH (+) Headaches PULMONARY (+) Asthma (HCC) (+) MARIBEL (obstructive sleep apnea) Other (+) Osteoarthritis of foot I - PHYSICAL EVALUATION AIRWAY Patient intubated: No. Tracheostomy tube not present Mallampati: II. TM distance: >3 FB. Neck ROM: full ROM without neurological symptoms. Mouth openin FB. Short neck: no. Thick neck: no DENTAL Normal dental observations. Dental findings: missing tooth/teeth. Dentures, upper: partial. II - ANESTHESIA PLAN ASA Score: 3 Anesthetic Plan: MAC The patient is not a current smoker. NPO Status: adequate Monitoring Plan Monitoring plan: standard ASA. Post Procedure Analgesic Plan Postoperative analgesic plan: parenteral or oral opioids, multimodal analgesia and peripheral nerve block. Informed Consent Anesthetic risks, benefits, alternatives, personnel and consent discussed: yes. Patient / Responsible Republican agrees to proceed: yes Patient / Surrogate agrees to blood products: blood products not planned DNR status not reviewed with patient and/or family prior to surgery. Significant changes in the patient condition since the History and Physical, not otherwise documented in primary service progress note: no. Potential Anesthesia issues that may suggest increased risk of complications or contraindication to planned procedure: none. Discussed the possibility of lip / dental damage: yes No vitals data found for the desired time range. Facility-Administered Medications as of 12/06/2024 Medication Dose Route Frequency acetaminophen 1,000 mg tab(s) (TYLENOL) 1,000 mg ORAL Pre-Op Once promethazine 12.5 mg tab(s) (PHENERGAN) 12.5 mg ORAL Pre-Op Once scopolamine (delivers 1 mg over 3 days) 1 patch (TRANSDERM-SCOP) 1 patch TRANSDERMAL ONCE scopolamine - VERIFY patch OTHER q 8 H [START ON 12/07/2024] scopolamine - REMOVE PATCH OTHER ONCE famotidine 20 mg injection (PEPCID) 20 mg INTRAVENOUS Pre-Op Once midazolam (PF) 1-2 mg injection (VERSED) 1-2 mg INTRAVENOUS ONCE metoclopramide HCl 10 mg injection (REGLAN) 10 mg INTRAVENOUS ONCE Outpatient Medications as of 12/06/2024 Medication Sig FLUoxetine (PROZAC) 40 mg capsule Take 1 capsule by mouth two times a day. levothyroxine (SYNTHROID) 100 mcg tablet Take 1 tablet by mouth once daily. esomeprazole (NEXIUM) 40 mg capsule TAKE ONE CAPSULE BY MOUTH twice daily. lisinopril (ZESTRIL) 20 mg tablet Take 1 tablet by mouth once daily. atorvastatin (LIPITOR) 20 mg tablet Take 1 tablet by mouth daily at bedtime. For cholesterol. famotidine (PEPCID) 20 mg tablet Take 1 tablet by mouth two times a day as needed (GERD). (Patient taking differently: Take 20 mg by mouth two times a day.) buPROPion XL (WELLBUTRIN XL) 300 mg 24 hr tablet Take 1 tablet by mouth once daily. traZODone (DESYREL) 100 mg tablet Take 2 tablets by mouth daily at bedtime. dulaglutide (TRULICITY) 0.75 mg/0.5 mL pen injector Inject 0.75 mg subcutaneously one time a week. Inject 0.75 mg once weekly Blood-Glucose Sensor (Secure-NOKYLE JAUN 3 PLUS SENSOR) guido 1 Each every 2 weeks. CHANGE sensor every 15 days. USE FOR CONTINUOUS GLUCOSE MONITORING. Dx: E11.9 RISK FOR HYPOGLYCEMIA. (Patient not taking: Reported on 10/05/2024) coffee xt/phosphatidyl serine (NEURIVA ORIGINAL ORAL) Take 2 tablets by mouth once daily. APPLE CIDER VINEGAR ORAL Take 1 capsule by mouth once daily. Combined with the tumeric MULTI-VITAMIN ORAL Take 1 tablet by mouth once daily. Takes bariatric multivitamin daily (contains extra calcium and iron) I have interviewed and examined th (more content not included)... Normal [facility] HISTORY PHYSICALon 5 HISTORY PHYSICAL HNO ID: [id number] Author: ISH HIGGINS MD Service: Orthopaedic Surgery Author Type: Physician Type: H&P Filed: 12/06/2024 07:20 Note Text: Hand Surgery History and Physical Please refer to my/my PA's prior note for full History. I saw and examined the pt HPI: There is no acute change in the pt's health PMH: PAST MEDICAL HISTORY Diagnosis Date Allergic rhinitis Arthritis [facility], knee Asthma (HCC) CKD (chronic kidney disease) 11/01/2018 Class 3 severe obesity with serious comorbidity and body mass index (BMI) of 40.0 to 44.9 in adult ([facility]) 08/19/2018 Coronary artery disease 10/28/[address] Salazar Fracture of right hip ([facility]) GERD (gastroesophageal reflux disease) History of transfusion HTN (hypertension) Hypothyroidism Mixed hyperlipidemia NIDDM (non-insulin dependent 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) MARIBEL on CPAP CPAP 9Cm Osteoarthritis of hip Renal lesion 01/15/2015 Suggest renal US every 1-2 years per PCP or nephro. Snoring Type 2 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 with hyperglycemia, with long-term current use of insulin ([facility]) 2000 ALLERGIES No Known Allergies PAST SURGICAL HISTORY Procedure Laterality Date ABDOMINAL SURGERY HX COLONOSCOPY 11/05/2016 Tammi- divertiuclosis, internal hemorrhoids, repeat in 5 years COLONOSCOPY 04/02/2022 repeat in 5 years due to reported prior history of polyps COSMETIC ASSESSMENT EGD 11/05/2016 Tammi- gastritis EGD 09/08/2018 /Gastritis EGD 04/02/2020 EGD 04/02/2022 EYE SURGERY HX Bilateral cataract extraction 2009' GASTRECTOMY,PART DISTAL;W/GASTRODUODENOSTO GASTRIC BYPASS HX 12/13/2018 Laparoscopic Samina-en-Y gastric bypass HIP SURGERY HX Screws replaced JOINT REPLACEMENT HX LAPAROSCOPY DIAGNOSTIC 07/26/2023 internal hernias and mesenteric adhesion OOPHORECTOMY PARTIAL OR TOTAL PAST SURGICAL HISTORY OF 2009 hemmroidectomy/sphincterectomy - Dr Nichole PAST SURGICAL HISTORY OF 2008 total left knee replacement PAST SURGICAL HISTORY OF 2003 partial right knee replacement PAST SURGICAL HISTORY OF 1990 total hysterectomy PAST SURGICAL HISTORY OF 2010 lDr Mansoor - [place] elbow fracture - traumatic. radial head replacement PAST SURGICAL HISTORY OF Bilateral 2016 hand surgery PAST SURGICAL HISTORY OF Left RELEASE CONTRACTURE DEQUERVAINS S INSERT PINN METAL NTRL HIP Right 11/17/2021 SKIN BIOPSY HX TOTAL HIP REPLACEMENT Right TOTAL KNEE REPLACEMENT Right 09/15/2022 TUBAL LIGATION HX VAGINAL HYSTERECTOMY 1979' SOCIAL HISTORY[1] Review of Systems: A 10-point review of systems was completed and is otherwise non-contributory Objective: Vitals: Current Range 36.8 ?C (98.2 ?F) Temp Min: 36.8 ?C (98.2 ?F) Max: 36.8 ?C (98.2 ?F) 77 Pulse Min: 77 Max: 77 165/88 BP Min: 165/88 Max: 165/88 18 Resp Min: 18 Max: 18 97 % SpO2 Min: 97 % Max: 97 % Exam: GEN: Calm and comfortable PULM: No increased work of breathing, no audible wheezing, clear to auscultation CARDIO: Ext warm and well perfused, regular rate and rhythm on palpation Extremity: Consistent w/ the most recent note in the chart Assessment/Plan: Proceed w/ OR as scheduled Ish Higgins MD Hand Surgery [1] Social History Tobacco Use Smoking status: Former Current packs/day: 0.00 Average packs/day: 1.5 packs/day for 22.0 years (33.0 ttl pk-yrs) Types: Cigarettes Start date: 1967 Quit date: 1989 Years since quittin.7 Passive exposure: Past Smokeless tobacco: Never Vaping Use Vaping status: Never Used Substance Use Topics Alcohol use: Yes Comment: once or twice a month Drug use: No [facility] NURSING PROGon 12-06-2024 NURSING PROG HNO ID: [id number] Author: STEWART CHANG RN Service: Nursing Author Type: Registered Nurse Type: Nursing Progress Note Filed: 12/06/2024 07:32 Note Text: Dr. Bermeo at bedside for Ultrasound guided Right axillary nerve block. RN at bedside, pt monitored throughout, BP 139/73 Pulse 72 Temp 36.8 ?C (98.2 ?F) (Temporal) Resp 10 Ht 157.5 cm (5' 2) Wt 56.7 kg (125 lb) SpO2 93% BMI 22.86 kg/m? . Pt medicated with 2mg IV versed after sign in. Pt tolerated procedure without difficulty. Family called to bedside at completion of procedure. Report to CONSUMER ANALYST [facility] OPERATIVE NOon 12-06-2024 OPERATIVE NO HNO ID: [id number] Author: ISH HIGGINS MD Service: Orthopaedic Surgery Author Type: Physician Type: Operative Report Filed: 12/09/2024 06:47 Note Text: Hand Surgery Operative Note PATIENT: Mary Jane De Paz [id number] DATE OF SURGERY: 12/06/2024 PREOPERATIVE DIAGNOSES: Right ulnar abutment syndrome POSTOPERATIVE DIAGNOSES: Same OPERATION: Excision distal ulna, partial or comlete eg, Darrach type or matched resection Synovectomy, extensor tendon sheath, wrist, single compartment - 6th dorsal compartment synovectomy Tendon transplantation or transfer, flexor or extensor, forearm and/or wrist, single; each tendon - slip of Extensor Carpi Ulnaris for stabilization of the distal ulna stump Application of static forearm to finger splint (short arm splint) ANESTHESIA: Regional and MAC ATTENDING SURGEON: Ish Higgins MD BOOTH OPERATOR SURGEON: There were no qualified residents available to assist in the case Noreen Castillo PA-C was the certified first assistant Under the supervision of the attending surgeon, they assisted during the entire operation and their involvement included: positioning the patient, prepping the surgical site, draping the surgical field, retraction during the approach, assistance during the critical steps of the procedure, wound closure, and application of the dressing. START/END TIMES: Incision/Procedure Start Time: 8:13 AM Incision Close/Procedure End Time: 9:32 AM TOURNIQUET TIME: 60 min EBL: Minimal SPECIMENS: None IMPLANTS: None COMPLICATIONS: None COUNTS: All counts were noted to be correct prior to skin closure. DISPOSITION: To PACU and then home. CLINICAL INDICATIONS: See office notes for complete details. The alternatives, risks, benefits and indications of surgery were discussed with the patient. The patient verbalized understanding of the risks as well as the alternatives to surgery. The patient wished to proceed with operative intervention. A signed and witnessed informed consent was confirmed to be completed. The site was marked by the surgical team and confirmed by the patient. DESCRIPTION OF PROCEDURE: The patient was placed in the supine position on a regular operating table. Anesthesia was established and all body parts were well padded and protected to make sure there were no pressure points. The surgical area was prepped and draped in the appropriate sterile fashion. A timeout was performed confirming the patient, the laterality, and the procedure being performed. Antibiotics were administered. Esmarch and tourniquet were raised. Direct ulnar approach An approximately 8 to 10 cm incision was made longitudinal directly on the ulnar border of the right ulna. We spread down through the subcu to the ECU FCU fascia. Knife was used to split the interval between the ECU and the FCU. We got down to the bone of the ulna. Knife was used to further expose the ulnar neck. Fluoroscopy was brought in to confirm the osteotomy site. Sagittal saw was used to make the osteotomy cut. Once the cut was complete, knife and towel clip were used to carve out the ulnar head while being sure to protect the TFCC. It came out in its entirety. Rongeur was used to smooth out the distal ulnar stump edges. Fluoroscopy confirmed appropriate removal. ECU stabilization Round bur was used to open the IM canal retrograde at the cut edge of the ulna. Round bur was used to make another bone tunnel into the IM canal approximately 2 cm proximal to the cut edge. Rongeur was used to remove any sharp edges. The ECU tendon was exposed 8 cm proximal to the osteotomy site and a synovectomy was performed of the sixth dorsal compartment with scissors to remove pathologic synovium. A distal based graft of approximately one half of the ECU was harvested. The creep was pulled out of the tendon. The tendon was passed retrograde through the osteotomy site and out the proximal bone tunnel. The ECU slip was tensioned with the forearm in neutral, and it was secured to the intact ECU distal to the osteotomy site with Ethibond horizontal mattress and a running locking stitch. This was a solid tendon transfer. The distal ulnar stump was now more stable. Finishing The wound was irrigated. As much of the capsule the DRUJ was closed as possible. The ECU subsheath was closed. The skin was closed with Monocryl deep dermals and nylon for the skin. The wound was dressed with bacitracin, Adaptic, gauze, and placed in a large high ulnar gutter splint to prevent from rotation. Tourniquet was let down, hand was pink. At the conclusion of the procedure, anesthesia was reversed and the patient was transferred to the PACU in stable condition. POST-OP PLAN: NWB Stay in splint until post-op SURGICAL ATTENDANCE: I, the attending surgeon was present/available throughout the entire procedure. [facility] XR FLUOROSCOPYon 12-06-2024 XR FLUOROSCOPY * * *Final Report* * * DATE OF EXAM: Dec 06 2024 9:46AM [facility] [id number] - XR FLUOROSCOPY / PROCEDURE REASON: EXCISION DISTAL ULNA - RIGHT * * * * Physician Interpretation * * * * INDICATION: EXCISION DISTAL ULNA - RIGHT TECHNIQUE: Fluoroscopy with 11 views of the distal right radius/ulna Fluoroscopic Radiation Summary: Plane A, Air Kerma: 7.5 mGy Dose Area Product (DAP): Fluoro time: 0:18 min:sec FINDINGS/ IMPRESSION: Images were obtained in the operating room during resection of the distal end of the right clavicle. . Please refer to the performing LIP's report. Senior Laboratory Technician: PSCB Transcribe Date/Time: Dec 06 2024 1:41P Dictated by : ASPEN PERALES MD This examination was interpreted and the report reviewed and electronically signed by: ASPEN PERALES MD on Dec 06 2024 1:42PM EST [id number] [facility] CNOVon 11-23-2024 CNOV Office Visit (GERIWR ) MARY JANE DE PAZ ([id number]) 1950 F Date Time Provider Department 11/23/24 11:30 AM SNOW STRATTON During your visit today, we recorded the following information about you: Pulse Respiration Blood pressure Weight 85/minute 16/minute 135/71 59 kg Snow Stratton MD 11/23/2024 6:15 PM Signed [facility] Initial Consult Mary Jane De Paz is a 74 year old year old female who comes for Comprehensive Geriatric Assessment. Pt accompanied by: Self. Caregivers involved in care: HPI: Mary Jane De Paz is a 74-year-old female with a history of essential tremor, depression, and insomnia, and a complex past medical history who is presenting with concerns about worsening memory loss. Mary Jane reports a progressive decline in memory over several years, had her first neuropsychological testing in 2016, which has recently worsened, causing significant concern. She notes difficulty recalling words and maintaining the flow of conversation, often losing her train of thought during pauses. She also experiences challenges with driving, frequently needing to overthink familiar routes and occasionally forgetting the correct medical center to visit. Additionally, she reports a short temper, leading to occasional outbursts at her , who is 87 years old. Mary Jane lives with her and describes their relationship as generally good, despite occasional disagreements. She manages her own medications but sometimes confuses morning and evening doses. She also handles the household finances but has had some late payments due to forgetfulness. Most of her bills are automatically deducted, which she finds helpful. She has not had any recent fender benders or citations and denies any issues with stop signs. She performs her own laundry and has a rug cleaner helper who visits every two weeks. She cooks occasionally but sometimes feels overwhelmed by the task. She is able to bathe and dress herself independently. Mary Jane has a history of essential tremor, which she believes may contribute to her frequent dropping of objects and difficulty with fine motor skills, such as buttoning clothes. She has had several falls in the past two years, resulting in injuries including a broken rib, foot, and hip. She attributes these falls to various causes, including losing control of her feet, tripping on a curb, and an incident involving her . She has not had an MRI of her brain due to a metal stimulator in her back, which was implanted to address incontinence following a sphincter injury during hemorrhoid surgery. She reports that the stimulator is not effective and is considering its removal. She has had neuropsychological evaluations and has been taking Noriva and Prevagen, which she believes have provided some cognitive benefits. Mary Jane has a family history of cancer, including pancreatic and kidney cancer. She has a lesion on her pancreas and a possible spot on her kidney, which are being monitored. She underwent gastric bypass surgery, resulting in a weight loss of nearly 100 pounds, and no longer experiences sleep apnea. She takes trazodone for sleep but reports frequent awakenings and occasional afternoon naps. She is socially active but less so since moving to [place] to be closer to her daughter. She expresses feelings of jealousy and isolation due to her daughter's close relationship with her own daughter. Mary Jane is currently taking Prozac and Wellbutrin for depression and is open to adjusting her medication regimen to improve her symptoms. She denies any history of ADHD or use of ADHD medications. She is interested in exploring potential treatments for her cognitive symptoms and is willing to undergo further testing to determine if she has Alzheimer's disease. November 23, 2024 Mary Jane De Paz is a 74-year-old female with a history of essential tremor, depression, insomnia, and declining memory, presenting for follow-up on Ritalin and evaluation of new onset headaches and nausea. Mary Jane was started on Ritalin for suspected attention deficit and has been off the medication for a couple of weeks due to running out. She reports noticing a slight improvement in her ability to recall words and maintain the flow of conversations, stating that it doesn't take as long to remember what she was saying during interrupted conversations. She also notes a little more intention in her actions. However, she has experienced headaches and nausea, which she does not attribute to the medication as she has not taken it for almost a week. The headaches, described as sharp and stabbing, occurred mostly in the past week, with at least three episodes in one week. She denies a history of frequent headaches. Mary Jane also reports weight loss, decreas (more content not included)... Normal [facility] HISTORY PHYSICALon HISTORY PHYSICAL HNO ID: [id number] Author: AMANDA MCCRACKEN APRN.CD REACTOR OPERATOR Service: ? Author Type: Nurse Practitioner Type: H&P Filed: 11/15/2024 13:59 Note Text: [facility] HISTORY AND PHYSICAL EXAMINATION SERVICE DATE: 11/15/2024 SERVICE TIME: 1:59 PM PRIMARY CARE PHYSICIAN: Christine Morgan APRN.CD REACTOR OPERATOR Assessment Patient has the following medical conditions which may affect lazaro-operative course: 1. Mixed hyperlipidemia (E78.2) - On statin therapy. 2. Essential hypertension (I10) - Well-controlled on current medication regimen. 3. Coronary artery disease involving blackfeet coronary artery of blackfeet heart without angina pectoris (I25.10) - Reviewed history of 20% coronary artery stenosis on prior cardiac catheterization. - Reviewed negative stress test from 2020 and normal echocardiogram. 4. MARIBEL (obstructive sleep apnea) (G47.33) - Resolved following gastric bypass in 2019. 5. Mild intermittent asthma 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 (HCC) (J45.20) - No current symptoms; does not use inhaler. 6. Irritable bowel syndrome with diarrhea (K58.0) 7. 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 - Advised patient to bring stimulator remote to surgery. 8. GERD without esophagitis (K21.9) - Managed with Nexium and famotidine; no current burning sensation, but persistent belching. 9. Renal lesion (N28.9) 10. Stage 3 chronic kidney disease, unspecified whether stage 3a or 3b CKD (HCC) (N18.30) - Reviewed CT scan findings of a stable cyst in the upper pole of the right kidney. - Discussed family history of renal disease. 11. 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, unspecified whether longterm insulin use (HCC) (E11.9) - Well-controlled; last HbA1c 5.9% in September. - Managed with Trulicity; advised to hold Trulicity 7 days prior to surgery to reduce aspiration risk. 12. Pancreatic cyst (HCC) (K86.2) - Reviewed CT scan findings of a stable pancreatic lesion. 13. Hypothyroidism, unspecified type (E03.9) - On Synthroid. 14. Moderate episode of recurrent major depressive disorder (HCC) (F33.1) - Chronic, recurrent depression; managed with Wellbutrin, trazodone, and Prozac. - Denies recent suicidal ideation. 15. H/O gastric bypass (Z98.84) 16. Headaches (R51.9) - Likely secondary to recent initiation of Ritalin. - Advised patient to use Tylenol as needed and to discuss with prescribing provider at next week's appointment. 17. Falls (R29.6) - History of falls, including one resulting in hip fracture. - Advised patient to exercise caution to prevent future falls. 18. Post-operative nausea and vomiting (R11.2) - Reports from prior procedures. Requesting antiemetics for control of N/V. 19. Attention-deficit hyperactivity disorder, predominantly inattentive type (F90.0) - Recent diagnosis; managed with Ritalin. - Advised to hold Ritalin on day of surgery. ANESTHESIA FINDINGS: Intubation History: No history of difficult intubation. No abnormal airway history Significant Anesthesia Considerations: Patient reports low BP after procedures, denies admission for this issue. potential postop nausea/vomiting Airway History: No history of difficult airway No abnormal airway history [place] Activity Status Index: METS: Walk indoors, such as around the house (1.75 METs) Do light work around the house, such as dusting or washing dishes (2.70 METs) Take care of self; that is eating, dressing, bathing, using the toilet (2.75 METs) Walk a block or two on level ground (2.75 METs) Do moderate work around the house, such as vacuuming, sweeping floors, or carrying in groceries (3.50 METs) Climb a flight of stairs or walk up a hill (5.50 METs) DASI Score: 18.95 Patient denies any chest pain or undue shortness of breath with the above physical activity. Clinical Frailty Scale: 3. Well, with treated comorbid disease STOP-Bang Score: Has or is being treated for high blood pressure Patient over 50 years old Denies snoring loudly Denies feeling tired, fatigued, or sleepy during the daytime Has not been observed to stop breathing or choking/gasping during sleep BMI less than or equal to 35 kg/m2 Does not have a large neck Non-male patient STOP-Bang Score: 2 I - PHYSICAL EVALUATION AIRWAY Patient intubated: No. Tracheostomy tube not present Mallampati: II. TM distance: >3 FB. Neck ROM: full ROM without neurological symptoms. Mouth openin FB. Short neck: no. Thick neck: no DENTAL Dental findings: implants and caps/crowns. Additional comments: + bridge with implant on front row, as well as some missing teeth. II - ANESTHESIA PLAN Anesthetic plan additional comments: *PACC/TCI - anesthesia choice. Informed Consent Prepared for Surgery: optimally prepared for surgery. CONSULTS: Patient does not require consu (more content not included)... Normal [facility] CT BRAIN WO/W IVCONon 2024 CT BRAIN WO/W IVCON * * *Final Report* * * DATE OF EXAM: Oct 20 2024 2:25PM [facility] [place] BRAIN WO/W IVCON / PROCEDURE REASON: Memory loss * * * * Physician Interpretation * * * * EXAMINATION: CT BRAIN WO/W IVCON Clinical history: As provided by the ordering clinician via order question entries: Memory loss. Stated history: Dementia, vascular etiology suspected. Pt complains of memory loss for past 10 years, progressively getting worse. Diabetic. High BP. No surgery. No cancer. Former smoker. TECHNIQUE: Serial axial images without and with IV contrast were obtained from the vertex to the foramen magnum. MQ: CTBWOW_1 Contrast: 100 mL Omnipaque [address] Radiation dose: Integrated Dose-Length Product (DLP) for this visit = 1590.81 mGy*cm CT Dose Reduction Employed: Automated exposure control (AEC) and iterative recon Comparison: 11/16/[address] and 06/23/2014 brain MRI without and with contrast RESULT: Post-operative change: None. Acute change: No evidence of an acute intracranial process. Hemorrhage: There is no evidence of acute intracranial hemorrhage. ECASS hemorrhagic transformation score: Not Applicable Mass Lesion / Mass Effect: There is no evidence of an intracranial mass or extraaxial fluid collection. No abnormal parenchymal enhancement is appreciated. No significant mass effect. Chronic change: Atherosclerotic calcifications in the carotid siphons and proximal intracranial vertebral arteries. Parenchyma: No significant volume loss for age. The brain parenchyma is otherwise within normal limits for age. Ventricles: Ventricular calibers are commensurate with the parenchymal volume and normal in configuration. Paranasal sinuses: The visualized paranasal sinuses are grossly clear. Other: Bilateral pseudophakia. Otherwise, unremarkable appearance of the orbits. Moderate opacification of the right mastoid air cells, new from the 2021 exam. Similar minimal opacification in the inferior left mastoid air cells. Clear middle ear cavities. Slight sigmoid curvature of the nasal septum with leftward directed nasal septal spur. Hyperostosis frontalis interna. The skull base and imaged soft tissues are unremarkable. Inspector Ball Points (topogram) images: Noncontributory IMPRESSION: No acute intracranial abnormality. New nonspecific moderate opacification of the right mastoid air cells. Senior Laboratory Technician: SEFERINO Transcribe Date/Time: Oct 20 2024 3:06P Dictated by : TYLOR CAMP MD This examination was interpreted and the report reviewed and electronically signed by: TYLOR CAMP MD on Oct 20 2024 3:12PM EST [id number] Normal [facility] CT Head WO and W contrast IV on 10-20-2024 IMPRESSION: No acute intracranial abnormality. New nonspecific moderate opacification of the right mastoid air cells. Senior Laboratory Technician: SEFERINO Transcribe Date/Time: Oct 20 2024 3:06P Dictated by : TYLOR CAMP MD This examination was interpreted and the report reviewed and electronically signed by: TYLOR CAMP MD on Oct 20 2024 3:12PM EST [facility] * * *Final Report* * * DATE OF EXAM: Oct 20 2024 2:25PM [facility] [place] BRAIN WO/W IVCON / PROCEDURE REASON: Memory loss * * * * Physician Interpretation * * * * EXAMINATION: CT BRAIN WO/W IVCON Clinical history: As provided by the ordering clinician via order question entries: Memory loss. Stated history: Dementia, vascular etiology suspected. Pt complains of memory loss for past 10 years, progressively getting worse. Diabetic. High BP. No surgery. No cancer. Former smoker. TECHNIQUE: Serial axial images without and with IV contrast were obtained from the vertex to the foramen magnum. MQ: CTBWOW_1 Contrast: 100 mL Omnipaque [address] Radiation dose: Integrated Dose-Length Product (DLP) for this visit = 1590.81 mGy*cm CT Dose Reduction Employed: Automated exposure control (AEC) and iterative recon Comparison: 11/16/[address] and 06/23/2014 brain MRI without and with contrast RESULT: Post-operative change: None. Acute change: No evidence of an acute intracranial process. Hemorrhage: There is no evidence of acute intracranial hemorrhage. ECASS hemorrhagic transformation score: Not Applicable Mass Lesion / Mass Effect: There is no evidence of an intracranial mass or extraaxial fluid collection. No abnormal parenchymal enhancement is appreciated. No significant mass effect. Chronic change: Atherosclerotic calcifications in the carotid siphons and proximal intracranial vertebral arteries. Parenchyma: No significant volume loss for age. The brain parenchyma is otherwise within normal limits for age. Ventricles: Ventricular calibers are commensurate with the parenchymal volume and normal in configuration. Paranasal sinuses: The visualized paranasal sinuses are grossly clear. Other: Bilateral pseudophakia. Otherwise, unremarkable appearance of the orbits. Moderate opacification of the right mastoid air cells, new from the 2021 exam. Similar minimal opacification in the inferior left mastoid air cells. Clear middle ear cavities. Slight sigmoid curvature of the nasal septum with leftward directed nasal septal spur. Hyperostosis frontalis interna. The skull base and imaged soft tissues are unremarkable. Inspector Ball Points (topogram) images: Noncontributory [facility] Provider, Evelyn Smith - 10/20/2024 * * *Final Report* * * DATE OF EXAM: Oct 20 2024 2:25PM [facility] [place] - [place] BRAIN WO/W IVCON / PROCEDURE REASON: Memory loss * * * * Physician Interpretation * * * * EXAMINATION: CT BRAIN WO/W IVCON Clinical history: As provided by the ordering clinician via order question entries: Memory loss. Stated history: Dementia, vascular etiology suspected. Pt complains of memory loss for past 10 years, progressively getting worse. Diabetic. High BP. No surgery. No cancer. Former smoker. TECHNIQUE: Serial axial images without and with IV contrast were obtained from the vertex to the foramen magnum. MQ: CTBWOW_1 Contrast: 100 mL Omnipaque [address] Radiation dose: Integrated Dose-Length Product (DLP) for this visit = 1590.81 mGy*cm CT Dose Reduction Employed: Automated exposure control (AEC) and iterative recon Comparison: 11/16/[address] and 06/23/2014 brain MRI without and with contrast RESULT: Post-operative change: None. Acute change: No evidence of an acute intracranial process. Hemorrhage: There is no evidence of acute intracranial hemorrhage. ECASS hemorrhagic transformation score: Not Applicable Mass Lesion / Mass Effect: There is no evidence of an intracranial mass or extraaxial fluid collection. No abnormal parenchymal enhancement is appreciated. No significant mass effect. Chronic change: Atherosclerotic calcifications in the carotid siphons and proximal intracranial vertebral arteries. Parenchyma: No significant volume loss for age. The brain parenchyma is otherwise within normal limits for age. Ventricles: Ventricular calibers are commensurate with the parenchymal volume and normal in configuration. Paranasal sinuses: The visualized paranasal sinuses are grossly clear. Other: Bilateral pseudophakia. Otherwise, unremarkable appearance of the orbits. Moderate opacification of the right mastoid air cells, new from the 2021 exam. Similar minimal opacification in the inferior left mastoid air cells. Clear middle ear cavities. Slight sigmoid curvature of the nasal septum with leftward directed nasal septal spur. Hyperostosis frontalis interna. The skull base and imaged soft tissues are unremarkable. Inspector Ball Points (topogram) images: Noncontributory IMPRESSION IMPRESSION: No acute intracranial abnormality. New nonspecific moderate opacification of the right mastoid air cells. Senior Laboratory Technician: SEFERINO Transcribe Date/Time: Oct 20 2024 3:06P Dictated by : TYLOR CAMP MD This examination was interpreted and the report reviewed and electronically signed by: TYLOR CAMP MD on Oct 20 2024 3:12PM EST [facility] Study observation (narrative) [facility] CT Head WO and W contrast IV Ordered By: [facility] Provider on 10-20-2024 [facility] CNPNon 10-19-2024 CNPN Telephone (INTMWS) MARY JANE DE PAZ ([id number]) 1950 F Date Time Provider Department 10/19/24 SNOW STRATTON INTMWS During your visit today, we recorded the following information about you: Yen Kidd LPN 10/19/2024 9:13 AM Signed Milagro from [place] [facility] calling patient is scheduled for CT Brain tomorrow. Asking to have order changed the protocol is to do CT Brain with and without contrast. Please advise Snow Stratton MD 10/19/2024 1:01 PM Signed It is done Snow Swenson MD Allergies As of Date: 10/19/2024 (No Known Allergies) Date Reviewed: 10/13/2024 Reviewed by: Shaunna Drake MA - Fully Assessed Reason for Visit: Orders [681] need order changed [Other] Prescriptions as of 10/19/2024 - iv contrast (will be provided with radiology test) CT Brain WO/W - No IV access, insert saline lock prior to the sedation, infusion, injection for imaging exam. Discontinue saline lock post exam. If Pt. has a central line or IVAD, may access for administration according to line specific nursing protocol. Once exam is complete flush line and de-access according to line specific nursing protocol in the CT contrast administration guidelines link. - lisdexamfetamine (VYVANSE) 10 mg capsule Take 1 capsule by mouth once daily for 30 days. - biotin 5 mg tab Take 1 tablet by mouth once daily. - FLUoxetine (PROZAC) 40 mg capsule Take 1 capsule by mouth two times a day. - levothyroxine (SYNTHROID) 100 mcg tablet Take 1 tablet by mouth once daily. - esomeprazole (NEXIUM) 40 mg capsule TAKE ONE CAPSULE BY MOUTH twice daily. - dulaglutide (TRULICITY) 0.75 mg/0.5 mL pen injector Inject 0.75 mg subcutaneously one time a week. Inject 0.75 mg once weekly - lisinopril (ZESTRIL) 20 mg tablet Take 1 tablet by mouth once daily. - atorvastatin (LIPITOR) 20 mg tablet Take 1 tablet by mouth daily at bedtime. For cholesterol. - famotidine (PEPCID) 20 mg tablet Take 1 tablet by mouth two times a day as needed (GERD). - buPROPion XL (WELLBUTRIN XL) 300 mg 24 hr tablet Take 1 tablet by mouth once daily. - traZODone (DESYREL) 100 mg tablet Take 2 tablets by mouth daily at bedtime. - Blood-Glucose Sensor (FREESTYLE JAUN 3 PLUS SENSOR) guido 1 Each every 2 weeks. CHANGE sensor every 15 days. USE FOR CONTINUOUS GLUCOSE MONITORING. Dx: E11.9 RISK FOR HYPOGLYCEMIA. - coffee xt/phosphatidyl serine (NEURIVA ORIGINAL ORAL) Take 2 tablets by mouth once daily. - APPLE CIDER VINEGAR ORAL Take 1 capsule by mouth once daily. Combined with the tumeric - lactose-reduced food (ADULT NUTRITIONAL SUPPLEMENT ORAL) (Discontinued) Take 1 capsule by mouth once daily. Tumeric - 2000mg capsule - MULTI-VITAMIN ORAL Take 1 tablet by mouth once daily. 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] 08/05/2010 HTN (hypertension) [I10] 12/05/2011 10/14/2014 Hyperlipidemia [E78.5] 08/04/2012 Hypothyroid [E03.9] 11/28/2012 Generalized postprandial abdominal pain [R10.84]09/01/2013 Diarrhea [R19.7] 09/01/2013 08/30/2020 IBS (irritable bowel syndrome) [K58.9] 09/01/2013 Moderate episode of recurrent major depressive *04/28/2014 Essential hypertension [I10] 10/14/2014 MARIBEL (obstructive sleep apnea) [G47.33] 09/17/2015 Cognitive decline [R41.89] 01/10/2016 Other symbolic dysfunction [R48.8] 04/22/2016 Actinic keratoses [L57.0] 07/30/2016 GERD without esophagitis [K21.9] 10/09/2016 Encounter for screening colonoscopy [Z12.11] 10/09/2016 08/30/2020 Pain of foot [M79.673] 11/27/2016 08/30/2020 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9] 11/27/2016 Hypertensive kidney disease with stage 3 chroni*04/13/2017 Contusion of leg, left, sequela [S80.12XS] 04/30/2017 08/30/2020 De Quervain's tenosynovitis, left [M65.4] 01/09/2018 Post-operative state [Z98.890] 05/26/2018 08/30/2020 Joint stiffness of hand, left [M25.642] 06/22/2018 Metacarpophalangeal joint pain of left hand [M2*07/20/2018 Finger pain, left [M79.645] 07/20/2018 Class 3 severe obesity with serious comorbidity*08/19/2018 08/30/2020 Asthma [J45.909] Stage 3 chronic kidney disease (HCC) [N18.30] 11/01/2018 Obesity [E66.9] 12/14/2018 08/30/2020 Obesity, Class II, BMI 35-39.9 [E66.812] 12/17/2018 08/30/2020 H/O gastric bypass [Z98.84] 12/23/2018 Closed displaced fracture of right femoral neck*11/17/2021 Hyponatremia [E87.1] 11/17/2021 Hip fracture requiring operative repair, right,*11/17/2021 Coronary artery disease [I25.10] 10/28/2017 05/12/2022 Type 2 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 (HCC) [E11.9] Renal lesion [N28.9] 01/15/2015 Osteoarthritis of right hip, unspecified osteoa*07/09/2022 07/09/2022 History of total hip replacement, right [Z96.64 (more content not included)... Normal [facility] CNOVon 10-13-2024 CNOV Office Visit (GERPANKAJR ) MARY JANE DE PAZ ([id number]) 1950 F Date Time Provider Department 10/13/24 10:30 AM SNOW STRATTON During your visit today, we recorded the following information about you: Pulse Respiration Blood pressure Weight Normal [facility] CT PANCREAS W IVCONon 2024 CT PANCREAS W IVCON * * *Final Report* * * DATE OF EXAM: Oct 13 2024 3:13PM [facility] [place] PANCREAS W IVCON / PROCEDURE REASON: Pancreatic cyst (HCC) * * * * Physician Interpretation * * * * EXAMINATION: CT ABDOMEN (PANCREAS) WITH IV CONTRAST CLINICAL HISTORY: Six month surveillance of pancreatic cyst TECHNIQUE: CT of the abdomen was performed using pancreas protocol technique, scanning from just above the dome of the diaphragm to the iliac crest. Images were obtained in arterial and portal venous phase. MQ: CTAbdW_4 Contrast: IV: 100 ml of Omnipaque 350 : ml of CT Radiation dose: Integrated Dose-length product (DLP) for this visit = 443.12 mGy*cm. CT Dose Reduction Employed: Automated exposure control(AEC) and iterative recon COMPARISON: Multiple previous CTs, the most recent a pancreas protocol CT of the abdomen dated 12/28/2023. RESULT: Liver: Unchanged 1.6 cm cyst in segment Giovanni, and unchanged subcentimeter low-attenuation foci which are too small to characterize but likely represent cysts as well. No new liver mass. Biliary: No bile duct dilation. Cholelithiasis. The gallbladder is otherwise unremarkable. Spleen: No mass. No splenomegaly. Pancreas: A 2.8 x 1.9 cm cyst at the pancreatic uncinate process on series 2 image 55 measured 2.9 x 1.8 cm at similar locations on the previous CT performed in December 2023, not significantly changed from that study. No enhancing solid component is seen. There is no dilation of the main pancreatic duct. No new pancreatic mass. Adrenals:No mass. Kidneys: An incidental cyst is noted at the upper pole the right kidney. There are subcentimeter low-attenuation foci in the renal cortices which are too small to characterize, these likely represent cysts as well. No evidence of a solid renal cortical mass. GI tract: Postsurgical changes from gastric bypass. The jejunal anastomosis is appropriately located on the left side of the abdomen. No small or large bowel dilation. A small hiatal hernia is present. Colonic diverticulosis is noted, there are no CT findings of diverticulitis. Lymph nodes: No abdominal lymphadenopathy. Mesentery/Peritoneum: No ascites or mass. Retroperitoneum: No mass. Vasculature: - Abdominal aorta: Atherosclerotic calcifications without aneurysm. - Celiac and SMA: Patent without stenosis. - Portal venous system (SMV, splenic vein, portal vein and branches): Patent. - Hepatic veins: Patent. Bones/Soft Tissues: No destructive skeletal lesion is present. Moderate degenerative disc disease noted L4-L5. Sacral nerve stimulator device in place. Lower thorax: Unremarkable. Localizer images: Postsurgical changes from right hip arthroplasty. IMPRESSION: 1. Unchanged 2.8 cm cystic lesion at the pancreatic uncinate process compared to previous CTs dating back to July 2023. No enhancing solid component is seen and there is no dilation of the main pancreatic duct. This warrants subsequent follow-up pancreas protocol CT or MRCP imaging in six months to show continued stability. Senior Laboratory Technician: [facility] Transcribe Date/Time: Oct 24 2024 2:32P Dictated by : KEN BOOTH MD This examination was interpreted and the report reviewed and electronically signed by: KEN BOOTH MD on Oct 24 2024 2:43PM EST [id number] [facility] CNOVon 10-05-2024 CNOV Office Visit (ENWSTR ) MARY JANE DE PAZ ([id number]) 1950 F Date Time Provider Department 10/05/24 12:45 PM MARIMAR WILCOX During your visit today, we recorded the following information about you: Pulse Respiration Blood pressure Weight 82/minute 17/minute 136/80 60.1 kg Height 1.575 m Marimar Wilcox, [email or web address] 10/05/2024 2:12 PM Signed OFFICE VISIT PROGRESS NOTE CC Mary Jane De Paz is a 74 year old who presents today for blood sugar review, thyroid problem. HPI PATIENT OF DR. LOVE, ENDOCRINE Diagnosed with 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 type 2, ~ 2000 Last endocrine OV 05/11/2024 Some elements copied from my note 05/11/2024 which have been updated where appropriate, and all reflect current medical decision making from date of this visit. Sts is doing well Denies palpitation/tremor Weight is stable, a couple pounds down, smaller portions CURRENT DM MEDS TRULICITY 0.75 weekly injection CURRENT THYROID SYNTHROID 100 mcg daily SMBG Type of Monitor: Other Frequency of Monitorin times a day FREESTYLE JAUN 3+ is out of sensors BG Values: No CGM information, patient ran out of sensors Hypoglycemia: no Diet: No specific diet regimen Exercise: DM REVIEW OF SYSTEMS Last Eye Exam : 01/2024 Last Podiatry Exam: Cardiorespiratory: negative, denies chest pain, pressure Claudication: no Dyslipidemia: Yes, controlled on medication High Blood Pressure: Yes, controlled on medication CURRENT LABS Latest Ref Rng 09/21/2024 Hemoglobin A1C 4.3 - 5.6 % 5.9 (H) Estimated Average Glucose mg/dL 123 TSH 0.270 - 4.200 mIU/L 2.990 Free T4 0.9 - 1.7 ng/dL 1.1 Legend: (H) High Recent Labs 01/24/20 0844 01/24/20 0848 09/05/20 1203 10/19/20 1225 07/29/21 1407 07/29/21 1408 01/29/22 1220 04/22/22 1434 07/29/22 1157 08/27/22 1405 04/28/23 1156 07/07/23 1449 07/26/23 0854 07/26/23 1631 07/27/23 0507 07/28/23 0449 12/28/23 1346 01/15/24 1403 07/18/24 1120 ALT 38 -- 31 < > -- < > 38 -- 39* < > 23 -- 52* -- -- -- -- 37 -- AST 36* -- 32 < > -- < > 39* -- 42* < > 32 -- 35 -- -- -- -- 38* -- UCRR -- < > -- < > -- -- 102.9 -- -- -- 69.8 -- -- -- -- -- -- 144.6 -- UALBR -- < > -- < > -- -- 12.2 -- -- -- 13.2 -- -- -- -- -- -- 23.9 -- UALBCR -- < > -- < > -- -- 12 -- -- -- 19 -- -- -- -- -- -- 17 -- TSH 1.700 -- 2.250 < > -- < > 1.610 < > 1.180 -- 0.595 -- -- -- -- -- -- 1.180 2.771 TPROT 7.2 -- 7.0 < > -- < > 6.4 -- 6.9 < > 6.9 -- 7.8 -- -- -- -- 7.2 -- ALB 4.0 -- 4.1 < > -- < > 4.2 -- 3.7* < > 3.9 -- 4.2 -- -- -- -- 3.9 -- CA 9.5 -- 9.1 < > -- < > 10.0 < > 9.5 < > 9.6 < > 9.9 < > 8.5 8.8 -- 9.2 -- TBILI 0.2 -- 0.3 < > -- < > 0.2 -- 0.2 < > 0.2 -- 0.5 -- -- -- -- 0.3 -- ALKPHOS 101 -- 88 < > -- < > 98 -- 120 < > 93 -- 107 -- -- -- -- 114 -- GLUC 73* -- 113* < > -- < > 109* < > 133* < > 93 < > 212* < > 143* 116* -- 81 -- BUN 20 -- 10 < > -- < > 11 < > 13 < > 12 < > 14 < > 14 11 -- 13 -- CREAT 1.15* -- 1.01* < > -- < > 1.10* < > 1.00* < > 1.10* < > 1.19* < > 1.19* 1.19* 1.06* 1.13* -- NA 139 -- 134* < > -- < > 138 < > 130* < > 140 < > 133* < > 133* 136 -- 139 -- K 4.5 -- 4.5 < > -- < > 4.5 < > 4.7 < > 4.0 < > 4.2 < > 4.2 4.8 -- 3.9 -- CHLOR 103 -- 100 < > -- < > 102 < > 96* < > 102 < > 97 < > 99 99 -- 102 -- CO2 27 -- 24 < > -- < > 26 < > 24 < > 28 < > 26 < > 25 28 -- 26 -- ANION 9 -- 10 < > -- < > 10 < > 10 < > 10 < > 10 < > 9 9 -- 11 -- EGFROTH 47 -- 54 < > -- < > 54* < > 60 < > 53* < > 49* < > 49* 49* 56* 52* -- HBA1C 6.3* 6.3* -- 7.4* < > -- < > 5.8* < > 5.5 -- 5.6 -- -- -- -- -- -- 6.2* -- B12 >2,000* -- >2,000* -- >2,000* -- -- -- -- -- -- -- -- -- -- -- -- -- -- < > = values in this interval not displayed. Recent Labs 04/09/17 0819 04/13/17 1714 04/02/18 1102 07/05/18 1803 01/24/20 0844 09/05/20 1203 10/19/20 1225 07/29/21 1407 07/29/21 1408 01/29/22 1220 04/22/22 1434 07/29/22 1157 04/28/23 1156 01/15/24 1403 TG 183* -- 168* < > 107 187* -- -- < > 134 -- 106 -- 122 CHOL 140 -- 225* < > 138 127 -- -- < > 150 -- 132 -- 149 HDL 55 -- 54 < > 53 51 -- -- < > 64 -- 64 -- 61 VLDL 37* -- 34* < > 21 37* -- -- < > 27 -- 21 -- 24 LDL 48 -- 137* < > 64 39 -- -- < > 59 -- 47 -- 64 FASTTIME Unknown -- 12 -- 10 -- -- -- -- -- -- -- -- -- TCHDL 2.55 -- 4.17 < > 2.60 2.49 -- -- < > 2.34 -- 2.06 -- 2.44 LDLHDL 0.87 -- 2.54* < > 1.21 0.76 -- -- < > 0.92 -- 0.73 -- 1.05 NONHDL 85 -- 171* < > 85 76 -- -- < > 86 -- 68 -- 88 HBA1C -- < > 8.1* < > 6.3* 6.3* 7.4* < > -- < > 5.8* < > 5.5 5.6 6.2* HBA0 -- < > 186 < > 134 134 166 < > -- < > 120 < > 111 114 131 B12 -- -- -- < > >2,000* >2,000* -- >2,000* -- -- -- -- -- -- < > = values in this interval not displayed. PAST MEDICAL HISTORY Diagnosis Date Allergic rhinitis [facility], knee Asthma (HCC) (more content not included)... Normal [facility] [address] 10-05-2024 KIRSTEN Telephone (SHAILA) BALDEVMARY JANE ([id number]) 1950 F Date Time Provider Department 10/05/24 RAFAEL TRAYLOR During your visit today, we recorded the following information about you: Rafael Traylor LSW 10/05/2024 2:49 PM Signed Endocrinology AND Metabolism Social Work Progress Note Provider Action / FYI N/A Mary Jane De Paz [id number] Type of Contact: telephone Endocrine ELEVATOR TENDER Referral Reason: Medication Cost Concerns Contact Made?: YES- concession worker confirmed patient's Name, , and Address, Note/Intervention: ELEVATOR TENDER received referral for patient regarding concern for high CGM cost via [employer]. Care team reports patient had applied for [employer] Patient Assistance Program on 09/07/24. Care team sent ELEVATOR TENDER application for [employer]'s PAP. The application's creation date is May 2008, this program is no longer in existence. ELEVATOR TENDER contacted [employer] student services representative who stated there is no patient assistance program. ELEVATOR TENDER contacted [employer] at [phone]. There was an order that was shipped out on June 03. $144. Patient will need to call to re-order. Therapeutic Riding Instructor did confirm that insurance was paying for part of the cost. ELEVATOR TENDER contacted patient, she stated she found this application online. ELEVATOR TENDER informed her this program is no longer in existence and discussed [employer]'s cost. Patient stated she is still paying off the $144 and cannot keep paying this for sensors. ELEVATOR TENDER explained to patient that there is a special program with [employer] called the Diabetes Management Program. ELEVATOR TENDER encouraged patient to call and see if she qualifies as this will help with medication cost. Unfortunately, there are no other patient assistance programs for CGM cost. ELEVATOR TENDER did state she could get a month's supply for $75, however, this will cost more than going through [employer]. Patient stated when she gets home she will call her insurance. [facility] referral placed: n/a Signature: KHUSHBOO Bridges LSW Patient Name: Mary Jane L [place]on Date: 10/05/2024 Time: 1:04 PM Pager/Contact #: [phone] During this patient contact I spent approximately 50 minutes in reviewing the patient's chart and counseling regarding community resources and coordinating care. Allergies As of Date: 10/05/2024 (No Known Allergies) Date Reviewed: 10/05/2024 Reviewed by: Baljinder Solis RN - Fully Assessed Prescriptions as of 10/19/2024 - lisdexamfetamine (VYVANSE) 10 mg capsule Take 1 capsule by mouth once daily for 30 days. - biotin 5 mg tab Take 1 tablet by mouth once daily. - FLUoxetine (PROZAC) 40 mg capsule Take 1 capsule by mouth two times a day. - levothyroxine (SYNTHROID) 100 mcg tablet Take 1 tablet by mouth once daily. - esomeprazole (NEXIUM) 40 mg capsule TAKE ONE CAPSULE BY MOUTH twice daily. - dulaglutide (TRULICITY) 0.75 mg/0.5 mL pen injector Inject 0.75 mg subcutaneously one time a week. Inject 0.75 mg once weekly - lisinopril (ZESTRIL) 20 mg tablet Take 1 tablet by mouth once daily. - atorvastatin (LIPITOR) 20 mg tablet Take 1 tablet by mouth daily at bedtime. For cholesterol. - famotidine (PEPCID) 20 mg tablet Take 1 tablet by mouth two times a day as needed (GERD). - buPROPion XL (WELLBUTRIN XL) 300 mg 24 hr tablet Take 1 tablet by mouth once daily. - traZODone (DESYREL) 100 mg tablet Take 2 tablets by mouth daily at bedtime. - Blood-Glucose Sensor (FREESTYLE JAUN 3 PLUS SENSOR) guido 1 Each every 2 weeks. CHANGE sensor every 15 days. USE FOR CONTINUOUS GLUCOSE MONITORING. Dx: E11.9 RISK FOR HYPOGLYCEMIA. - coffee xt/phosphatidyl serine (NEURIVA ORIGINAL ORAL) Take 2 tablets by mouth once daily. - APPLE CIDER VINEGAR ORAL Take 1 capsule by mouth once daily. Combined with the tumeric - lactose-reduced food (ADULT NUTRITIONAL SUPPLEMENT ORAL) (Discontinued) Take 1 capsule by mouth once daily. Tumeric - 2000mg capsule - MULTI-VITAMIN ORAL Take 1 tablet by mouth once daily. 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] 08/05/2010 HTN (hypertension) [I10] 12/05/2011 10/14/2014 Hyperlipidemia [E78.5] 08/04/2012 Hypothyroid [E03.9] 11/28/2012 Generalized postprandial abdominal pain [R10.84]09/01/2013 Diarrhea [R19.7] 09/01/2013 08/30/2020 IBS (irritable bowel syndrome) [K58.9] 09/01/2013 Moderate episode of recurrent major depressive *04/28/2014 Essential hypertension [I10] 10/14/2014 MARIBEL (obstructive sleep apnea) [G47.33] 09/17/2015 Cognitive decline [R41.89] 01/10/2016 Other symbolic dysfunction [R48.8] 04/22/2016 Actinic keratoses [L57.0] 07/30/2016 GERD without esophagitis [K21.9] 10/09/2016 Encounter for screening colonoscopy [Z12.11] 10/09/2016 08/30/2020 Pain of foot [M79.673] 11/27/2016 (more content not included)... Normal [facility] Hepatic function 2000 panelo n 10-05-2024 Albumin [Mass/Vol] 3.9 g/dL Normal 3.9-4.9 [facility] Comment on above: Order Comment: Speci men Type: BLOOD SPECIMENOrdering Facility: [facility] Address: [address] [place] [address] Performed By: #### 2 4325-3 ####[facility] [id number] [place] [address] [place] ALP [Catalytic activity/Vol] 137 U/L High 34-123 [facility] Comment on above: Order Comment: Speci men Type: BLOOD SPECIMENOrdering Facility: [facility] Address: [address] [place] [address] Performed By: #### 2 4325-3 ####[facility] [id number] [place] [address] [place] ALT [Catalytic activity/Vol] 50 U/L High 7-38 [facility] Comment on above: Order Comment: Speci men Type: BLOOD SPECIMENOrdering Facility: [facility] Address: [address] [place] [address] Performed By: #### 2 4325-3 ####[facility] [id number] [place] [address] [place] AST [Catalytic activity/Vol] 51 U/L High 13-35 [facility] Comment on above: Order Comment: Speci men Type: BLOOD SPECIMENOrdering Facility: [facility] Address: [address] [place] [address] Performed By: #### 2 4325-3 ####[facility] [id number] [place] [address] [place] Bilirubin [Mass/Vol] 0.3 mg/dL Normal 0.2-1.3 [facility] Comment on above: Order Comment: Speci men Type: BLOOD SPECIMENOrdering Facility: [facility] Address: [address] [place] [address] Performed By: #### 2 4325-3 ####[facility] [id number] [place] [address] [place] Bilirubin.conjugat ed [Mass/Vol] 0.1 mg/dL Normal <0.3 [facility] Comment on above: Order Comment: Speci men Type: BLOOD SPECIMENOrdering Facility: [facility] Address: [address] [place], [place] [id number] Performed By: #### 2 4325-3 ####[facility] [id number] [place] [address] [place] Protein [Mass/Vol] 6.7 g/dL Normal 6.3-8.0 [facility] Comment on above: Order Comment: Speci men Type: BLOOD SPECIMENOrdering Facility: [facility] Address: [address] [place] [address] Performed By: #### 2 4325-3 ####[facility] [id number] [place] [address] [place] Bacteria Ur Culton Bacteria identified Cx Nom (U) ORGANISM ID: 1 10,000 -<50,000 CFU/ml Normal urogenital zoe Normal [facility] Comment on above: Performed By: #### 6 30-4 ####[facility] [id number] [place] [address] [place] CBC W Auto Differential pane l (Bld)on 09-21-2024 Basophils (Bld) [#/Vol] 0.09 10*3/uL [facility] Basophils/100 WBC (Bld) 1 % [facility] Differential cell count method Nom (Bld) Auto [facility] Eosinophils (Bld) [#/Vol] 0.28 10*3/uL [facility] Eosinophils/100 WBC (Bld) 3.1 % [facility] Erythrocyte distribution width (RBC) [Ratio] 12.5 % 11.5 - 15.0 % [facility] Hematocrit (Bld) [Volume fraction] 39.5 % 36.0 - 46.0 % [facility] Hemoglobin (Bld) [Mass/Vol] 12.9 g/dL 11.5 - 15.5 g/dL [facility] Immature granulocytes (Bld) [#/Vol] 0.03 10*3/uL [facility] Immature granulocytes/100 WBC (Bld) 0.3 % [facility] Lymphocytes (Bld) [#/Vol] 2.37 10*3/uL [facility] Lymphocytes/100 WBC (Bld) 26.6 % [facility] MCH (RBC) [Entitic mass] 31.5 pg 26.0 - 34.0 pg [facility] MCHC (RBC) [Mass/Vol] 32.7 g/dL 30.5 - 36.0 g/dL [facility] MCV (RBC) [Entitic vol] 96.3 fL 80.0 - 100.0 fL [facility] Monocytes (Bld) [#/Vol] 0.55 10*3/uL NINF [facility] Monocytes/100 WBC (Bld) 6.2 % [facility] Neutrophils (Bld) [#/Vol] 5.58 10*3/uL [facility] Neutrophils/100 WBC (Bld) 62.8 % [facility] Nucleated RBC (Bld) [#/Vol] NINF [facility] Nucleated RBC/100 WBC (Bld) [Ratio] 0 % /100 WBC [facility] Platelet mean volume (Bld) [Entitic vol] 9.9 fL 9.0 - 12.7 fL [facility] Platelets (Bld) [#/Vol] 379 10*3/uL [facility] RBC (Bld) [#/Vol] 4.1 10*6/uL 3.90 - 5.20 m/uL [facility] WBC (Bld) [#/Vol] 8.9 10*3/uL [facility] Basophils (Bld) [#/Vol] 0.09 10*3/uL Normal <0.11 [facility] Comment on above: Order Comment: Speci men Type: BLOOD SPECIMENOrdering Facility: [facility] Address: [address] [place] [address] Performed By: #### 5 7021-8 ####[facility] LABIA [id number] [place] [address] [place] Basophils/100 WBC (Bld) 1.0 % Normal [facility] Comment on above: Order Comment: Speci men Type: BLOOD SPECIMENOrdering Facility: [facility] Address: [address] [place] [address] Performed By: #### 5 7021-8 ####[facility] LABIA [id number] [place] [address] [place] Differential cell count method Nom (Bld) Auto Normal [facility] Comment on above: Order Comment: Speci men Type: BLOOD SPECIMENOrdering Facility: [facility] Address: [address] [place] [address] Performed By: #### 5 7021-8 ####[facility] LABCL[facility] [id number] [address], [place] [address] [place] Eosinophils (Bld) [#/Vol] 0.28 10*3/uL Normal <0.46 [facility] Comment on above: Order Comment: Speci men Type: BLOOD SPECIMENOrdering Facility: [facility] Address: [address] [place] [address] Performed By: #### 5 7021-8 ####[facility] LABCL[facility] [id number] [address], [place] [address] [place] Eosinophils/100 WBC (Bld) 3.1 % Normal [facility] Comment on above: Order Comment: Speci men Type: BLOOD SPECIMENOrdering Facility: [facility] Address: [address] [place] [address] Performed By: #### 5 7021-8 ####[facility] LABCLIA [id number] [address], [place] [address] [place] Erythrocyte distribution width (RBC) [Ratio] 12.5 % Normal 11.5-15.0 [facility] Comment on above: Order Comment: Speci men Type: BLOOD SPECIMENOrdering Facility: [facility] Address: [address] [place] [address] Performed By: #### 5 7021-8 ####[facility] LABCL[facility] [id number] [place] [address] [place] Hematocrit (Bld) [Volume fraction] 39.5 % Normal 36.0-46.0 [facility] Comment on above: Order Comment: Speci men Type: BLOOD SPECIMENOrdering Facility: [facility] Address: [address] [place] [address] Performed By: #### 5 7021-8 ####[facility] LABCLIA [id number] [address], [facility] [place] Hemoglobin (Bld) [Mass/Vol] 12.9 g/dL Normal 11.5-15.5 [facility] Comment on above: Order Comment: Speci men Type: BLOOD SPECIMENOrdering Facility: [facility] Address: [address] [place] [address] Performed By: #### 5 7021-8 ####[facility] LABCLIA [id number] [facility] [place] [address] [place] Immature granulocytes (Bld) [#/Vol] 0.03 10*3/uL Normal <0.10 [facility] Comment on above: Order Comment: Speci men Type: BLOOD SPECIMENOrdering Facility: [facility] Address: [address] [place] [address] Performed By: #### 5 7021-8 ####[facility] LABCLIA [id number] [place] [address] [place] Immature granulocytes/100 WBC (Bld) 0.3 % Normal [facility] Comment on above: Order Comment: Speci men Type: BLOOD SPECIMENOrdering Facility: [facility] Address: [address] [place] [address] Performed By: #### 5 7021-8 ####[facility] LABCL[facility] [id number] [place] [address] [place] Lymphocytes (Bld) [#/Vol] 2.37 10*3/uL Normal 1.00-4.00 [facility] Comment on above: Order Comment: Speci men Type: BLOOD SPECIMENOrdering Facility: [facility] Address: [address] [place] [address] Performed By: #### 5 7021-8 ####[facility] LABCLIA [id number] [place] [address] [place] Lymphocytes/100 WBC (Bld) 26.6 % Normal [facility] Comment on above: Order Comment: Speci men Type: BLOOD SPECIMENOrdering Facility: [facility] Address: [address] [place] [address] Performed By: #### 5 7021-8 ####[facility] LABIA [id number] [place] [address] [place] [facility] MCH (RBC) [Entitic mass] 31.5 pg Normal 26.0-34.0 [facility] Comment on above: Order Comment: Speci men Type: BLOOD SPECIMENOrdering Facility: [facility] Address: [address] [place] [address] Performed By: #### 5 7021-8 ####[facility] LABIA [id number] [place] [address] [place] MCHC (RBC) [Mass/Vol] 32.7 g/dL Normal 30.5-36.0 [facility] Comment on above: Order Comment: Speci men Type: BLOOD SPECIMENOrdering Facility: [facility] Address: [address] [place] [address] Performed By: #### 5 7021-8 ####[facility] [id number] [place] [address] [place] MCV (RBC) [Entitic vol] 96.3 fL Normal 80.0-100.0 [facility] Comment on above: Order Comment: Speci men Type: BLOOD SPECIMENOrdering Facility: [facility] Address: [address] [place] [address] Performed By: #### 5 7021-8 ####[facility] LABIA [id number] [place] [address] [place] Monocytes (Bld) [#/Vol] 0.55 10*3/uL Normal <0.87 [facility] Comment on above: Order Comment: Speci men Type: BLOOD SPECIMENOrdering Facility: [facility] Address: [address] [place] [address] Performed By: #### 5 7021-8 ####[facility] LABIA [id number] [address] [address] [place] Monocytes/100 WBC (Bld) 6.2 % Normal [facility] Comment on above: Order Comment: Speci men Type: BLOOD SPECIMENOrdering Facility: [facility] Address: [address] [place] [address] Performed By: #### 5 7021-8 ####[facility] LABCLIA [id number] [place] [address] [place] Neutrophils (Bld) [#/Vol] 5.58 10*3/uL Normal 1.45-7.50 [facility] Comment on above: Order Comment: Speci men Type: BLOOD SPECIMENOrdering Facility: [facility] Address: [address] [place] [address] Performed By: #### 5 7021-8 ####[facility] LABCL[facility] [id number] [place] [address] [place] Neutrophils/100 WBC (Bld) 62.8 % Normal [facility] Comment on above: Order Comment: Speci men Type: BLOOD SPECIMENOrdering Facility: [facility] Address: [address] [place] [address] Performed By: #### 5 7021-8 ####[facility] LABCLIA [id number] [place] [address] [place] Nucleated RBC (Bld) [#/Vol] 10*3/uL Normal <0.01 [facility] Comment on above: Order Comment: Speci men Type: BLOOD SPECIMENOrdering Facility: [facility] Address: [address] [place] [address] Performed By: #### 5 7021-8 ####[facility] LABCL[facility] [id number] [place] [id number] [place] Nucleated RBC/100 WBC (Bld) [Ratio] 0.0 /100 WBC Normal [facility] Comment on above: Order Comment: Speci men Type: BLOOD SPECIMENOrdering Facility: [facility] Address: [address] [place] [address] Performed By: #### 5 7021-8 ####[facility] LABCL[facility] [id number] [place] [address] [place] Platelet mean volume (Bld) [Entitic vol] 9.9 fL Normal 9.0-12.7 [facility] Comment on above: Order Comment: Speci men Type: BLOOD SPECIMENOrdering Facility: [facility] Address: [address] [place] [address] Performed By: #### 5 7021-8 ####[facility] LABCL[facility] [id number] [place] [address] [place] Platelets (Bld) [#/Vol] 379 10*3/uL Normal 150-400 [facility] Comment on above: Order Comment: Speci men Type: BLOOD SPECIMENOrdering Facility: [facility] Address: [address] [place] [address] Performed By: #### 5 7021-8 ####[facility] LABIA [id number] [place] [address] [place] RBC (Bld) [#/Vol] 4.10 10*6/uL Normal 3.90-5.20 [facility] Comment on above: Order Comment: Speci men Type: BLOOD SPECIMENOrdering Facility: [facility] Address: [address] [place] [address] Performed By: #### 5 7021-8 ####[facility] LABCLIA [id number] [place] [id number] [place] WBC (Bld) [#/Vol] 8.90 10*3/uL Normal 3.70-11.00 [facility] Comment on above: Order Comment: Speci men Type: BLOOD SPECIMENOrdering Facility: [facility] Address: [address] [place] [address] Performed By: #### 5 7021-8 ####[facility] OLGA [id number] [place] [address] [place] CNOVon 09-21-2024 CNOV Office Visit (FAMPWS ) MARY JANE DE PAZ ([id number]) 1950 F Date Time Provider Department 09/21/24 1:40 PM CHRISTINE MORGAN During your visit today, we recorded the following information about you: Pulse Respiration Blood pressure Weight 74/minute 16/minute 146/88 61.2 kg Christine Morgan APRN.CD REACTOR OPERATOR 09/21/2024 5:51 PM Signed This is a 74 year old female who presents today with: Patient presents with: Follow Up HISTORY OF PRESENT ILLNESS: Mary Jane De Paz is a 74 year old female. Patient presents with: Follow Up Pt is here today with complaint of memory issues and poor sleep. Chronic Shoulder pain, neck pain and wrist -US showed bursitis and mild rotator cuff tear Following w/ ortho. Memory Issues -pt states she gets lost when driving causes her anxiety - can't remember peoples name, places and direction -forgetfulness has advanced in the past several months -Can't find words, droppings things, forgets who she had an conversations with or which person she shared information with - pt is concerned it could be dementia or alzheimer, has a family history of dementia (grandparents) Insomnia - Wakes up during the night, twice a night - pt is on max dose of trazodone and started taking OTC pm tylenol to help her with the sleep HTN - taking lisinopril 20 mg as prescribed -does not monitor BP at home -denies sob, palpitation, chest pain, pt does have mild dizziness Depression and anxiety - Pt is on Wellbutrin and Prozac, states still depressed but not serious thoughts of harming self -worries about the future - controlled for now PAST MEDICAL HISTORY: PAST MEDICAL HISTORY Diagnosis Date Allergic rhinitis Arthritis [facility] orthopedics, knee Asthma ([facility]) CKD (chronic kidney disease) 11/01/2018 Class 3 severe obesity with serious comorbidity and body mass index (BMI) of 40.0 to 44.9 in adult ([facility]) 08/19/2018 Coronary artery disease 10/28/[address] Salazar Fracture of right hip ([facility]) GERD (gastroesophageal reflux disease) History of transfusion HTN (hypertension) Hypothyroidism Mixed hyperlipidemia NIDDM (non-insulin dependent 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) MARIBEL on CPAP CPAP 9Cm Osteoarthritis of hip Renal lesion 01/15/2015 Suggest renal US every 1-2 years per PCP or nephro. Snoring Type 2 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 with hyperglycemia, with long-term current use of insulin ([facility]) 1999 PAST SURGICAL HISTORY Procedure Laterality Date ABDOMINAL SURGERY HX COLONOSCOPY 11/05/2016 Tammi- divertiuclosis, internal hemorrhoids, repeat in 5 years COLONOSCOPY 04/02/2022 repeat in 5 years due to reported prior history of polyps COSMETIC ASSESSMENT EGD 11/05/2016 Tammi- gastritis EGD 09/08/2018 /Gastritis EGD 04/02/2020 EGD 04/02/2022 EYE SURGERY HX Bilateral cataract extraction 2009' GASTRECTOMY,PART DISTAL;W/GASTRODUODENOSTO GASTRIC BYPASS HX 12/13/2018 Laparoscopic Samina-en-Y gastric bypass HIP SURGERY HX Screws replaced JOINT REPLACEMENT HX LAPAROSCOPY DIAGNOSTIC 07/26/2023 internal hernias and mesenteric adhesion OOPHORECTOMY PARTIAL OR TOTAL PAST SURGICAL HISTORY OF 2009 hemmroidectomy/sphincterectomy - Dr Nichole PAST SURGICAL HISTORY OF 2008 total left knee replacement PAST SURGICAL HISTORY OF 2003 partial right knee replacement PAST SURGICAL HISTORY OF 1990 total hysterectomy PAST SURGICAL HISTORY OF 2010 lDr Mansoor - [place] elbow fracture - traumatic. radial head replacement PAST SURGICAL HISTORY OF Bilateral 2016 hand surgery PAST SURGICAL HISTORY OF Left RELEASE CONTRACTURE DEQUERVAINS S INSERT PINN METAL NTRL HIP Right 11/17/2021 SKIN BIOPSY HX TOTAL HIP REPLACEMENT Right TOTAL KNEE REPLACEMENT Right 09/15/2022 TUBAL LIGATION HX VAGINAL HYSTERECTOMY ALLERGIES Patient has no known allergies. MEDICATIONS Current Outpatient Medications Medication Sig FLUoxetine (PROZAC) 40 mg capsule Take 1 capsule by mouth two times a day. levothyroxine (SYNTHROID) 100 mcg tablet Take 1 tablet by mouth once daily. esomeprazole (NEXIUM) 40 mg capsule TAKE ONE CAPSULE BY MOUTH twice daily. dulaglutide (TRULICITY) 0.75 mg/0.5 mL pen injector Inject 0.75 mg subcutaneously one time a week. Inject 0.75 mg once weekly lisinopril (ZESTRIL) 20 mg tablet Take 1 tablet by mouth once daily. atorvastatin (LIPITOR) 20 mg tablet Take 1 tablet by mouth daily at bedtime. For cholesterol. famotidine (PEPCID) 20 mg tablet Take 1 tablet by mouth two times a day as needed (GERD). buPROPion XL (WELLBUTRIN XL) 300 mg 24 hr tablet Take 1 tablet by mouth once daily. traZODone (DESYREL) 100 mg tablet Take 2 tablets by mouth daily at bedtime. Blood-Glucose Sensor (MobileVedaSTYLE JAUN 3 PLUS SENSOR) guido 1 Each every 2 weeks. CHANGE sensor every 15 days. USE FOR CONTINUOUS GLUCOSE MONITORING. Dx: E1 (more content not included)... Normal [facility] Comprehensive metabolic 2000 panelon 09-21-2024 Albumin [Mass/Vol] 4.0 g/dL Normal 3.9-4.9 [facility] Comment on above: Order Comment: Speci men Type: BLOOD SPECIMENOrdering Facility: [facility] Address: [address] [place] [address] Performed By: #### 2 43205-28, 2131-11 ####[facility] LABIA [id number] [place] [address] [place] ALP [Catalytic activity/Vol] 138 U/L High 34-123 [facility] Comment on above: Order Comment: Speci men Type: BLOOD SPECIMENOrdering Facility: [facility] Address: [address] [place] [address] Performed By: #### 2 43205-28, 2131-11 ####[facility]IA [id number] [place] [address] [place] ALT [Catalytic activity/Vol] 51 U/L High 7-38 [facility] Comment on above: Order Comment: Speci men Type: BLOOD SPECIMENOrdering Facility: [facility] Address: [address] [place] [address] Performed By: #### 2 4322-10, 2131-11 ####[facility] LABCLIA [id number] [facility] [address] [place] [address] [place] Anion gap [Moles/Vol] 8 mmol/L Normal 8-15 [facility] Comment on above: Order Comment: Speci men Type: BLOOD SPECIMENOrdering Facility: [facility] Address: [address] [place], [place] [id number] Performed By: #### 2 4322-10, 2131-11 ####[facility] LABCLIA [id number] [facility] [address] [place] [address] [place] AST [Catalytic activity/Vol] 55 U/L High 13-35 [facility] Comment on above: Order Comment: Speci men Type: BLOOD SPECIMENOrdering Facility: [facility] Address: [address] [place], [place] [id number] Performed By: #### 2 4322-10, 2131-11 ####[facility] LABCLIA [id number] [facility] [address] [place] [address] [place] Bilirubin [Mass/Vol] mg/dL Low 0.2-1.3 [facility] Comment on above: Order Comment: Speci men Type: BLOOD SPECIMENOrdering Facility: [facility] Address: [address] [place], [place] [address] Performed By: #### 2 4322-10, 2131-11 ####[facility] LABCLIA [id number] [facility] [address] [place] [address] [place] Calcium [Mass/Vol] 9.2 mg/dL Normal 8.5-10.2 [facility] Comment on above: Order Comment: Speci men Type: BLOOD SPECIMENOrdering Facility: [facility] Address: [address] [place], [place] [id number] Performed By: #### 2 43205-28, 2131-11 ####[facility] LABCLIA [id number] [address] [address] [place] Chloride [Moles/Vol] 104 mmol/L Normal 98-107 [facility] Comment on above: Order Comment: Speci men Type: BLOOD SPECIMENOrdering Facility: [facility] Address: [address] [place] [address] Performed By: #### 2 4323-8, 2131-11 ####[facility] LABIA [id number] [place] [id number] [place] CO2 [Moles/Vol] 26 mmol/L Normal 22-30 [facility] Comment on above: Order Comment: Speci men Type: BLOOD SPECIMENOrdering Facility: [facility] Address: [address] [place] [address] Performed By: #### 2 4323-8, 2131-11 ####[facility] [id number] [place] [id number] [place] Creatinine [Mass/Vol] 1.03 mg/dL High 0.58-0.96 [facility] Comment on above: Order Comment: Speci men Type: BLOOD SPECIMENOrdering Facility: [facility] Address: [address] [place] [address] Performed By: #### 2 4323-8, 2131-11 ####[facility] [id number] [place] [id number] [facility] Creatinine and Glomerular filtration rate.predicted panel (S/P/Bld) 58 mL/min/1.73m??? Low >=60 [facility] Comment on above: Order Comment: Speci men Type: BLOOD SPECIMENOrdering Facility: [facility] Address: [address] [place] [address] Result Comment: Melba mated Glomerular Filtration Rate (eGFR) is calculated using the 2020 CKD-EPI creatinine equation. This equation utilizes serum creatinine, sex, and age as parameters. The creatinine assay has traceable calibration to isotope dilution-mass spectrometry. Refer to KDIGO guidelines for clinical interpretation. In patients with unstable renal function, e.g. those with acute kidney injury, the eGFR may not accurately reflect actual GFR. Performed By: #### 2 4328, 2131-11 ####[facility]IA [id number] [address] [address] [place] Glucose [Mass/Vol] 103 mg/dL High 74-99 [facility] Comment on above: Order Comment: Speci men Type: BLOOD SPECIMENOrdering Facility: [facility] Address: [address] [place] [address] Result Comment: The [place] Diabetes Association (ADA) provides guidance for cutoff values for fasting glucose and random glucose. The ADA defines fasting as no caloric intake for at least 8 hours. Fasting plasma glucose results between 100 to 125 mg/dL indicate increased risk for diabetes (prediabetes). Fasting plasma glucose results greater than or equal to 126 mg/dL meet the criteria for diagnosis of diabetes. In the absence of unequivocal hyperglycemia, results should be confirmed by repeat testing. In a patient with classic symptoms of hyperglycemia or hyperglycemic crisis, random plasma glucose results greater than or equal to 200 mg/dL meet the criteria for diagnosis of diabetes. Reference: Standards of Medical Care in Diabetes 2016, [place] Diabetes Association. Diabetes Care. 2016.39(Suppl 1). Performed By: #### 2 43205-28, 2131-11 ####[facility] LABIA [id number] [address] [address] [place] Potassium [Moles/Vol] 4.8 mmol/L Normal 3.7-5.1 [facility] Comment on above: Order Comment: Darrell men Type: BLOOD SPECIMENOrdering Facility: [facility] Address: [address] [place] [address] Performed By: #### 2 43205-28, 2131-11 ####[facility] [id number] [address] [address] [place] Protein [Mass/Vol] 6.6 g/dL Normal 6.3-8.0 [facility] Comment on above: Order Comment: Brigidi men Type: BLOOD SPECIMENOrdering Facility: [facility] Address: [address] [place], [place] [id number] Performed By: #### 2 4323-8, 2131-11 ####[facility] LABCLIA [id number] [address] [address] [place] Sodium [Moles/Vol] 138 mmol/L Normal 136-144 [facility] Comment on above: Order Comment: Speci men Type: BLOOD SPECIMENOrdering Facility: [facility] Address: [address] [place] [address] Performed By: #### 2 4328, 2131-11 ####[facility]IA [id number] [place] [address] [place] Urea nitrogen [Mass/Vol] 12 mg/dL Normal 7-21 [facility] Comment on above: Order Comment: Speci men Type: BLOOD SPECIMENOrdering Facility: [facility] Address: [address] [place] [address] Performed By: #### 2 4323-8, 2131-11 ####[facility] LABIA [id number] [place] [address] [place] HbA1c (Bld)on 09-21-2024 Average glucose Estimated from glycated hemoglobin (Bld) [Mass/Vol] 123 mg/dL Normal [facility] Comment on above: Order Comment: Speci men Type: BLOOD SPECIMENOrdering Facility: [facility] Address: [address] [place] [address] Result Comment: eAG: (Estimated average glucose) is a calculated value from HgbA1c and is student services representative of the average blood glucose level in the last 2-3 month period. Performed By: #### 5 5454-3 ####[facility] [id number] [place] [address] [place] HbA1c (Bld) [Mass fraction] 5.9 % High 4.3-5.6 [facility] Comment on above: Order Comment: Speci men Type: BLOOD SPECIMENOrdering Facility: [facility] Address: [address] [place] [address] Result Comment: [place] Diabetes Association guidelines indicate that patients with HgbA1c in the range 5.7-6.4% are at increased risk for development of diabetes, and intervention by lifestyle modification may be beneficial. HgbA1c greater or equal to 6.5% is considered diagnostic of diabetes. Performed By: #### 5 5454-3 ####[facility] LABCLIA [id number] [place] [address] [place] [facility] [place] LIPID PANEL, NONFASTINGon Cholesterol [Mass/Vol] 133 mg/dL Normal <200 [facility] Comment on above: Order Comment: Darrell men Type: BLOOD SPECIMENOrdering Facility: [facility] Address: [address] [place] [address] Result Comment: <200 mg/dL, Desirable 200-239 mg/dL, Borderline high >239 mg/dL, High Performed By: #### L IPNF, 3016-3, 50205-0, 7 ####[facility] LABCLIA [id number] [place] [id number] [place] HDL CHOLESTEROL, NF 58 mg/dL Normal >39 [facility] Comment on above: Order Comment: Darrell guajardo Type: BLOOD SPECIMENOrdering Facility: [facility] Address: [address] [place] [address] Result Comment: 40-5 9 mg/dL, Acceptable >59 mg/dL, High: Negative risk factor for coronary heart disease <40 mg/dL, Low: Positive risk factor for coronary heart disease Performed By: #### L IPNF, 3016-3, 96528-2, 3023-7 ####[facility] LABCLIA [id number] [place] [id number] [place] LDL CHOLESTEROL CALCULATED, NF 55 mg/dL Normal <100 [facility] Comment on above: Order Comment: Brigidi men Type: BLOOD SPECIMENOrdering Facility: [facility] Address: [address] [place] [address] Result Comment: <100 mg/dL, Optimal 100-129 mg/dL, Near optimal/above optimal 130-159 mg/dL, Borderline high 160-189 mg/dL, High >189 mg/dL, Very high Secondary prevention optimal LDL Cholesterol levels are recommended to be <70 mg/dL LDL cholesterol is calculated using the Tony-NIH equation. Performed By: #### L JUAN, 3015-3, , 3023-09 ####[facility] LABCLIA [id number] [address] [place] LDL/HDL RATIO, NF 0.95 mg/dL Normal <2.54 [facility] Comment on above: Order Comment: Darrell guajardo Type: BLOOD SPECIMENOrdering Facility: [facility] Address: [address] [place] [address] Result Comment: Refe rence: 1. National Cholesterol Education Program ATP III Guideline At-A-Glance Quick Desk Reference: National Heart, Lung, and Blood [place]. National Institutes of Health. 2001: NIH Publication No. 01-3305. 2. An International Atherosclerosis Society position paper: global recommendations for the management of dyslipidemia: executive summary, Atherosclerosis. 2014: 232(2):410-413. Performed By: #### L JUAN, 3015-, , 3023-09 ####[facility] LABCLIA [id number] [address] [place] NON HDL CHOL, NF 75 mg/dL Normal <130 [facility] Comment on above: Order Comment: Darrell guajardo Type: BLOOD SPECIMENOrdering Facility: [facility] Address: [address] [place] [address] Result Comment: <130 mg/dL, Optimal 130-159 mg/dL, Near optimal/above optimal 160-189 mg/dL, Borderline high 190-219 mg/dL, High >219 mg/dL, Very high Secondary prevention optimal non HDL Cholesterol levels are recommended to be <100 mg/dL Performed By: #### L JUAN, 3015-3, , 3023-09 ####[facility] LABCLIA [id number] [address] [place] [address] [place] T CHOL/HDL RATIO NF 2.29 mg/dL Normal <5.10 [facility] Comment on above: Order Comment: Speci men Type: BLOOD SPECIMENOrdering Facility: [facility] Address: [address] [place] [address] Performed By: #### L IPNF, 6-3, , 7 ####[facility] LABCLIA [id number] [address] [place] [address] [place] TRIGLYCERIDES, NF 110 mg/dL Normal <150 [facility] Comment on above: Order Comment: Speci men Type: BLOOD SPECIMENOrdering Facility: [facility] Address: [address] [place] [address] Result Comment: <150 mg/dL, Normal 150-199 mg/dL, Borderline high 200-499 mg/dL, High >499 mg/dL, Very high Performed By: #### L IPNF, 6-3, , 7 ####[facility] LABCLIA [id number] [place] [id number] [place] VLDL CHOLESTEROL, NF 16 mg/dL Normal <30 [facility] Comment on above: Order Comment: Speci men Type: BLOOD SPECIMENOrdering Facility: [facility] Address: [address] [place] [address] Performed By: #### L IPNF, 6-3, , 7 ####[facility] LABCLIA [id number] [address] [place] [address] [place] Magnesium SerPl-mCncon 09-21 Magnesium [Mass/Vol] 2.1 mg/dL Normal 1.7-2.3 [facility] Comment on above: Order Comment: Speci men Type: BLOOD SPECIMENOrdering Facility: [facility] Address: [address] [place] [address] Performed By: #### L IPNF, 6-3, 01767-7, 7 ####[facility] LABCLIA [id number] [place] [address] [place] T4 Free SerPl-mCncon 025 Free T4 [Mass/Vol] 1.1 ng/dL Normal 0.9-1.7 [facility] Comment on above: Order Comment: Speci men Type: BLOOD SPECIMENOrdering Facility: [facility] Address: [address] [place] [address] Performed By: #### L IPAFSANEH, 6-3, , 3023-09 ####[facility] LABCLIA [id number] [place] [address] [place] TSH SerPl-aCncon 09-21-2024 TSH Qn 2.990 m[IU]/L Normal 0.270-4.20 0 [facility] Comment on above: Order Comment: Speci men Type: BLOOD SPECIMENOrdering Facility: [facility] Address: [address] [place] [address] Performed By: #### L IPAFSANEH, 6-3, , 3023-09 ####[facility] LABCLIA [id number] [address] [place] Urinalysis complete panel (U )on 09-21-2024 Bacteria LM.HPF (Urine sed) [#/Area] Negative Negative /HPF [facility] Bilirubin Ql (U) Negative Negative [facility] Clarity (Unsp spec) Clear Clear [facility] Color (U) Yellow Yellow [facility] Epithelial cells LM.HPF (Urine sed) [#/Area] None Seen /HPF [facility] Glucose Test strip (U) [Mass/Vol] Negative Negative [facility] Hemoglobin Ql (U) Negative Negative [facility] Hyaline casts (Urine sed) [#/Area] 0 /[LPF] 0 /LPF [facility] Ketones Ql (U) Negative Negative [facility] Leukocyte esterase Test strip Ql (U) Negative Negative [facility] Nitrite Ql (U) Negative Negative [facility] pH (U) 6 [pH] NINF - 8.5 [facility] Protein (U) [Mass/Vol] Negative Negative [facility] RBC LM.HPF (Urine sed) [#/Area] 0-2 /HPF 0-2 /HPF [facility] Specific gravity (U) [Rel density] 1.014 1.005 - 1.030 [facility] Urobilinogen Ql (U) 0.2 EU/dL 0.2-1.0 EU/dL [facility] WBC LM.HPF (Urine sed) [#/Area] 0-5 /HPF 0-5 /HPF [facility] This test was develo ped and its performance characteristics determined by [facility]'s [facility] Pathology and Laboratory Medicine [place] ([facility]). It has not been cleared or approved by the FDA. -[facility] is regulated under CLIA as qualified to perform high-complexity testing. This test is used for clinical purposes. It should not be regarded as investigational or for research. [facility] Bacteria LM.HPF (Urine sed) [#/Area] Negative Normal Negative [facility] Comment on above: Order Comment: Speci men Type: URINE SPECIMENOrdering Facility: [facility] Address: [address] [place] [address] Performed By: #### 2 4356-8 ####[facility] [id number] [place] [address] [place] Bilirubin Ql (U) Negative Normal Negative [facility] Comment on above: Order Comment: Speci men Type: URINE SPECIMENOrdering Facility: [facility] Address: [address] [place] [address] Performed By: #### 2 4356-8 ####[facility] [id number] [place] [address] [place] Clarity (Unsp spec) Clear Normal Clear [facility] Comment on above: Order Comment: Speci men Type: URINE SPECIMENOrdering Facility: [facility] Address: [address] [place] [address] Performed By: #### 2 4356-8 ####[facility] LABCLIA [id number] [address], [place] [address] [place] Color (U) Yellow Normal Yellow [facility] Comment on above: Order Comment: Speci men Type: URINE SPECIMENOrdering Facility: [facility] Address: [address] [place] [address] Performed By: #### 2 4356-8 ####[facility] LABCLIA [id number] [address] STATES [facility] Epithelial cells LM.HPF (Urine sed) [#/Area] None Seen Normal [facility] Comment on above: Order Comment: Speci men Type: URINE SPECIMENOrdering Facility: [facility] Address: [address] [place] [address] Performed By: #### 2 4356-8 ####[facility] LABCLIA [id number] [address] [place] Glucose Test strip (U) [Mass/Vol] Negative Normal Negative [facility] Comment on above: Order Comment: Speci men Type: URINE SPECIMENOrdering Facility: [facility] Address: [address] [place] [address] Performed By: #### 2 4356-8 ####[facility] LABCLIA [id number] [place] [address] [place] Hemoglobin Ql (U) Negative Normal Negative [facility] Comment on above: Order Comment: Speci men Type: URINE SPECIMENOrdering Facility: [facility] Address: [address] [place], [place] [address] Performed By: #### 2 4356-8 ####[facility] LABCLIA [id number] [place] [id number] [place] Hyaline casts (Urine sed) [#/Area] 0 /[LPF] Normal 0 /LPF [facility] Comment on above: Order Comment: Speci men Type: URINE SPECIMENOrdering Facility: [facility] Address: [address] [place] [address] Performed By: #### 2 4356-8 ####[facility] LABCLIA [id number] [place] [id number] [place] Ketones Ql (U) Negative Normal Negative [facility] Comment on above: Order Comment: Speci men Type: URINE SPECIMENOrdering Facility: [facility] Address: [address] [place] [address] Performed By: #### 2 4356-8 ####[facility] LABCLIA [id number] [place] [address] [place] Leukocyte esterase Test strip Ql (U) Negative Normal Negative [facility] Comment on above: Order Comment: Speci men Type: URINE SPECIMENOrdering Facility: [facility] Address: [address] [place] [address] Performed By: #### 2 4356-8 ####[facility] LABCLIA [id number] [place] [address] [place] Nitrite Ql (U) Negative Normal Negative [facility] Comment on above: Order Comment: Speci men Type: URINE SPECIMENOrdering Facility: [facility] Address: [address] [place] [address] Performed By: #### 2 4356-8 ####[facility] LABCLIA [id number] [place] [id number] [place] pH (U) 6.0 [pH] Normal <8.5 [facility] Comment on above: Order Comment: Speci men Type: URINE SPECIMENOrdering Facility: [facility] Address: [address] [place] [address] Performed By: #### 2 4356-8 ####[facility] LABCLIA [id number] [place] [id number] [place] Protein (U) [Mass/Vol] Negative Normal Negative [facility] Comment on above: Order Comment: Speci men Type: URINE SPECIMENOrdering Facility: [facility] Address: [address] [place] [address] Performed By: #### 2 4356-8 ####[facility] [id number] [place] [address] [place] RBC LM.HPF (Urine sed) [#/Area] 0-2 /HPF Normal 0-2 /HPF [facility] Comment on above: Order Comment: Speci men Type: URINE SPECIMENOrdering Facility: [facility] Address: [address] [place] [address] Performed By: #### 2 4356-8 ####[facility] [id number] [place] [address] [place] Specific gravity (U) [Rel density] 1.014 Normal 1.005-1.03 0 [facility] Comment on above: Order Comment: Speci men Type: URINE SPECIMENOrdering Facility: [facility] Address: [address] [place] [address] Performed By: #### 2 4356-8 ####[facility] [id number] [address] [place] Urobilinogen Ql (U) 0.2 EU/dL Normal 0.2-1.0 EU/dL [facility] Comment on above: Order Comment: Speci men Type: URINE SPECIMENOrdering Facility: [facility] Address: [address] [place] [address] Performed By: #### 2 4356-8 ####[facility] [id number] [place] [address] [place] WBC LM.HPF (Urine sed) [#/Area] 0-5 /HPF Normal 0-5 /HPF [facility] Comment on above: Order Comment: Speci men Type: URINE SPECIMENOrdering Facility: [facility] Address: [address] [place], [place] [address] Performed By: #### 2 4356-8 ####[facility] LABIA [id number] [address] [place] Vit B12 SerPl-mCncon 02-2 025 Cobalamin (Vitamin B12) [Mass/Vol] pg/mL High 232-1245 [facility] Comment on above: Order Comment: Speci men Type: BLOOD SPECIMENOrdering Facility: [facility] Address: [address] [place] [address] Performed By: #### 2 4323-8, 2132-9 ####[facility] LABIA [id number] [address] OF [facility] CNOVon 09-15-2024 CNOV Office Visit (AGPOB3 ) MARY JANE DE PAZ ([id number]) 1950 F Date Time Provider Department 09/15/24 11:00 AM ISH HIGGINS AGPOB3 During your visit today, we recorded the following information about you: Respiration Weight Height 18/minute 59.9 kg 1.575 m Ish Higgins MD 09/23/2024 2:56 PM Addendum Hand Surgery New Pt Note HPI: Spinal cord stimulator (no MRI) Hx L IF DIP arthrodesis and bilat CTR 2015 bilat 2nd and 3rd MCP pyrocarbon arthroplasties, doing well 2018 Freddie King 2022 R ALFONSO nealop Mary Jane Lawson Baldev is a 74-year-old female with a history of right wrist pain, seen today for evaluation. Right Wrist Pain: - Chronic right wrist pain, worsening over the past few months. - Pain described as sharp and hot. - Pain location confirmed on the ulnar side of the wrist. - Aggravated by lifting heavy objects and certain motions. - Pain occurs approximately 5 out of 7 days per week. - Mary Jane has been wearing a wrist brace intermittently. - Mary Jane has received ultrasound-guided wrist injections in the past, with decreasing efficacy. - Denies numbness in the hands. - No significant pain in the left wrist. - History of carpal tunnel release. - Reports difficulty with fine motor skills, such as buttoning buttons. - Mary Jane has a history of falls, including a recent fall during the winter that resulted in a tibia fracture. - Mary Jane has a spinal stimulator in place, which precludes MRI imaging. PMH: PAST MEDICAL HISTORY Diagnosis Date Allergic rhinitis Arthritis [facility] orthopedics, knee Asthma ([facility]) CKD (chronic kidney disease) 11/01/2018 Class 3 severe obesity with serious comorbidity and body mass index (BMI) of 40.0 to 44.9 in adult ([facility]) 08/19/2018 Coronary artery disease 10/28/[address] Salazar Fracture of right hip ([facility]) GERD (gastroesophageal reflux disease) History of transfusion HTN (hypertension) Hypothyroidism Mixed hyperlipidemia NIDDM (non-insulin dependent 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) MARIBEL on CPAP CPAP 9Cm Osteoarthritis of hip Renal lesion 01/15/2015 Suggest renal US every 1-2 years per PCP or nephro. Snoring Type 2 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 with hyperglycemia, with long-term current use of insulin ([facility]) 1999 ALLERGIES No Known Allergies Social History Tobacco Use Smoking status: Former Current packs/day: 0.00 Average packs/day: 1.5 packs/day for 22.0 years (33.0 ttl pk-yrs) Types: Cigarettes Start date: 1967 Quit date: 1989 Years since quittin.5 Passive exposure: Past Smokeless tobacco: Never Vaping Use Vaping status: Never Used Substance Use Topics Alcohol use: Yes Comment: once or twice a month Drug use: No Review of Systems: 12 point review of systems was performed and found to be non-contributory Exam: - Musculoskeletal: - Right Wrist: - Excellent flexion and extension; full pronation and supination. - Tenderness over the ulnar side with ulnar deviation and wrist flexion; no pain with radial deviation or axial load. - Full sensation across all fingers; able to make a tight fist and open hand without difficulty. - No pain over the ECU tendon; ulnar head not significantly prominent. Imaging: Labs: Imagin views Right and Left Wrist X-ray: - Hardware from prior arthroplasty in the metacarpophalangeal joints - Lucency around implants - Positive ulnar variance with degenerative changes, approximately 3 mm on the right side - No evidence of acute fracture The x-ray of the contralateral side was obtained as a comparison view to check for ulnar variance Assessment/Plan: (M25.831) Ulnar abutment syndrome of right wrist (primary encounter diagnosis) New and/or prior imaging was reviewed with the pt 1. Ulnar abutment syndrome of right wrist (M25.831) - Exam reveals tenderness over the ulnar side of the wrist with ulnar deviation, no pain with radial deviation, and a little bit of ulnar side of wrist pain with wrist flexion. Excellent flexion and extension of the wrist, full pronation and supination. Full sensation across all fingers, able to fire FPL and UPL. - X-rays show ulnar positive variance with the ulna appearing to impinge on the lunate. - Discussed surgical options including ulnar shortening osteotomy and distal ulnar resection (DERA). Explained risks and benefits of each procedure, including potential for non-union and hardware irritation with osteotomy, and potential for instability with DERA. - Recommended DERA given patient's age and overall health status. - Scheduled for distal ulnar resection and extensor tendon stabilization on the thursday in November at [facility]. - Patient will be casted for 6 weeks postoperatively to allow for proper healing and stabilization. - Advised patient to continue using wris (more content not included)... Normal [facility] CNTHERAPYon 09-13-2024 CNTHERAPY OT/PT/Speech Visit ( [facility] MARY JANE ED PAZ ([id number]) 1950 F Date Time Provider Department 09/13/24 10:15 AM SARAHI BARKER [facility] Date Time Provider Department Center 09/13/2024 10:15 AM [id number], SARAHI [facility] Reason for Visit: Physical Therapy [503] PT Discharge [752] Primary Visit Diagnosis:Impaired strength of lower extremity [R29.898] Other Visit Diagnoses:Balance disorder [R26.89] Iliotibial band syndrome of right side [M76.31] Allergies As of Date: 09/13/2024 (No Known Allergies) Date Reviewed: 08/30/2024 Reviewed by: Demetrice Charlton MA - Fully Assessed Prescriptions as of 11/14/2024 - methylphenidate (RITALIN) 10 mg tablet Take 1 tablet by mouth once daily for 14 days. - lisdexamfetamine (VYVANSE) 10 mg capsule Take 1 capsule by mouth once daily for 30 days. - biotin 5 mg tab Take 1 tablet by mouth once daily. - FLUoxetine (PROZAC) 40 mg capsule Take 1 capsule by mouth two times a day. - levothyroxine (SYNTHROID) 100 mcg tablet Take 1 tablet by mouth once daily. - esomeprazole (NEXIUM) 40 mg capsule TAKE ONE CAPSULE BY MOUTH twice daily. - dulaglutide (TRULICITY) 0.75 mg/0.5 mL pen injector Inject 0.75 mg subcutaneously one time a week. Inject 0.75 mg once weekly - lisinopril (ZESTRIL) 20 mg tablet Take 1 tablet by mouth once daily. - atorvastatin (LIPITOR) 20 mg tablet Take 1 tablet by mouth daily at bedtime. For cholesterol. - famotidine (PEPCID) 20 mg tablet Take 1 tablet by mouth two times a day as needed (GERD). - buPROPion XL (WELLBUTRIN XL) 300 mg 24 hr tablet Take 1 tablet by mouth once daily. - traZODone (DESYREL) 100 mg tablet Take 2 tablets by mouth daily at bedtime. - Blood-Glucose Sensor (FREESTYLE JAUN 3 PLUS SENSOR) guido 1 Each every 2 weeks. CHANGE sensor every 15 days. USE FOR CONTINUOUS GLUCOSE MONITORING. Dx: E11.9 RISK FOR HYPOGLYCEMIA. - coffee xt/phosphatidyl serine (NEURIVA ORIGINAL ORAL) Take 2 tablets by mouth once daily. - APPLE CIDER VINEGAR ORAL Take 1 capsule by mouth once daily. Combined with the tumeric - lactose-reduced food (ADULT NUTRITIONAL SUPPLEMENT ORAL) (Discontinued) Take 1 capsule by mouth once daily. Tumeric - 2000mg capsule - MULTI-VITAMIN ORAL Take 1 tablet by mouth once daily. Takes bariatric multivitamin daily (contains extra calcium and iron) Breading Machine Tender: Therapy (PT/OT/Speech/Resp) ID: [id number] 09/13/2024 10:54 AM Author: SARAHI BARKER Signed by SARAHI BARKER PT, DPT on 09/13/2024 at 10:54 AM Document text: Program_ID:[id number] Access Code: [email or web address] URL: [email or web address] Date: 09-13-2024 Prepared By: Apple Bender Program Notes Exercises - Supine Figure 4 Piriformis Stretch - 1 x daily - 7 x weekly - 1 sets - 2 reps - Supine Hip Internal and External Rotation - 1 x daily - 7 x weekly - 1 sets - 10 reps - Seated Table Hamstring Stretch - 1 x daily - 7 x weekly - 3 sets - reps - Hooklying Clamshell with Resistance - 1 x daily - 7 x weekly - 2 sets - 10 reps - Hip Extension with Resistance Loop - 1 x daily - 7 x weekly - 2 sets - 10 reps - Standing Hip Flexion March - 1 x daily - 7 x weekly - 2 sets - 10 reps -------- [facility] THERAPY NTon 09-13-2024 THERAPY NT HNO ID: [id number] Author: SARAHI BARKER, PT, DPT Service: Physical Therapy Author Type: Physical Therapist Type: Therapy (PT/OT/Speech/Resp) Filed: 09/13/2024 10:54 Note Text: Program_ID:[id number] Access Code: [email or web address] URL: [email or web address]/ Date: 09-13-2024 Prepared By: Apple Bender Program Notes Exercises - Supine Figure 4 Piriformis Stretch - 1 x daily - 7 x weekly - 1 sets - 2 reps - Supine Hip Internal and External Rotation - 1 x daily - 7 x weekly - 1 sets - 10 reps - Seated Table Hamstring Stretch - 1 x daily - 7 x weekly - 3 sets - reps - Hooklying Clamshell with Resistance - 1 x daily - 7 x weekly - 2 sets - 10 reps - Hip Extension with Resistance Loop - 1 x daily - 7 x weekly - 2 sets - 10 reps - Standing Hip Flexion May - 1 x daily - 7 x weekly - 2 sets - 10 reps [facility] CNPNon 09-07-2024 CNPN Telephone (ENWSTR) MARY JANE DE PAZ ([id number]) 1950 F Date Time Provider Department 09/07/24 MARIMAR WILCOX ENWSTR During your visit today, we recorded the following information about you: Lima Pandya MA 09/07/2024 10:49 AM Signed Application received by interoffice mail. Provider information completed and signed. Faxed to [employer] at [phone] Confirmation received and placed in file. Lima Pandya MA Allergies As of Date: 09/07/2024 (No Known Allergies) Date Reviewed: 08/30/2024 Reviewed by: Demetrice Charlton MA - Fully Assessed Reason for Visit: Chaperon - Other [1429] Cmt: [employer] Patient Assistance application Prescriptions as of 09/07/2024 - FLUoxetine (PROZAC) 40 mg capsule Take 1 capsule by mouth two times a day. - levothyroxine (SYNTHROID) 100 mcg tablet Take 1 tablet by mouth once daily. - esomeprazole (NEXIUM) 40 mg capsule TAKE ONE CAPSULE BY MOUTH twice daily. - dulaglutide (TRULICITY) 0.75 mg/0.5 mL pen injector Inject 0.75 mg subcutaneously one time a week. Inject 0.75 mg once weekly - lisinopril (ZESTRIL) 20 mg tablet Take 1 tablet by mouth once daily. - atorvastatin (LIPITOR) 20 mg tablet Take 1 tablet by mouth daily at bedtime. For cholesterol. - famotidine (PEPCID) 20 mg tablet Take 1 tablet by mouth two times a day as needed (GERD). - buPROPion XL (WELLBUTRIN XL) 300 mg 24 hr tablet Take 1 tablet by mouth once daily. - traZODone (DESYREL) 100 mg tablet Take 2 tablets by mouth daily at bedtime. - Blood-Glucose Sensor (FREESTYLE JAUN 3 PLUS SENSOR) guido 1 Each every 2 weeks. CHANGE sensor every 15 days. USE FOR CONTINUOUS GLUCOSE MONITORING. Dx: E11.9 RISK FOR HYPOGLYCEMIA. - melatonin 10 mg tab Take 1 tablet by mouth at bedtime as needed for insomnia. - Calcium Citrate 250 mg calcium tab Take 250 mg by mouth. - coffee xt/phosphatidyl serine (NEURIVA ORIGINAL ORAL) Take 2 tablets by mouth once daily. - APPLE CIDER VINEGAR ORAL Take 1 capsule by mouth once daily. Combined with the tumeric - lactose-reduced food (ADULT NUTRITIONAL SUPPLEMENT ORAL) (Discontinued) Take 1 capsule by mouth once daily. Tumeric - 2000mg capsule - MULTI-VITAMIN ORAL Take 1 tablet by mouth once daily. 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] 08/05/2010 HTN (hypertension) [I10] 12/05/2011 10/14/2014 Hyperlipidemia [E78.5] 08/04/2012 Hypothyroid [E03.9] 11/28/2012 Generalized postprandial abdominal pain [R10.84]09/01/2013 Diarrhea [R19.7] 09/01/2013 08/30/2020 IBS (irritable bowel syndrome) [K58.9] 09/01/2013 Moderate episode of recurrent major depressive *04/28/2014 Essential hypertension [I10] 10/14/2014 MARIBEL (obstructive sleep apnea) [G47.33] 09/17/2015 Cognitive decline [R41.89] 01/10/2016 Other symbolic dysfunction [R48.8] 04/22/2016 Actinic keratoses [L57.0] 07/30/2016 GERD without esophagitis [K21.9] 10/09/2016 Encounter for screening colonoscopy [Z12.11] 10/09/2016 08/30/2020 Pain of foot [M79.673] 11/27/2016 08/30/2020 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9] 11/27/2016 Hypertensive kidney disease with stage 3 chroni*04/13/2017 Contusion of leg, left, sequela [S80.12XS] 04/30/2017 08/30/2020 De Quervain's tenosynovitis, left [M65.4] 01/09/2018 Post-operative state [Z98.890] 05/26/2018 08/30/2020 Joint stiffness of hand, left [M25.642] 06/22/2018 Metacarpophalangeal joint pain of left hand [M2*07/20/2018 Finger pain, left [M79.645] 07/20/2018 Class 3 severe obesity with serious comorbidity*08/19/2018 08/30/2020 Asthma [J45.909] Stage 3 chronic kidney disease (HCC) [N18.30] 11/01/2018 Obesity [E66.9] 12/14/2018 08/30/2020 Obesity, Class II, BMI 35-39.9 [E66.812] 12/17/2018 08/30/2020 H/O gastric bypass [Z98.84] 12/23/2018 Closed displaced fracture of right femoral neck*11/17/2021 Hyponatremia [E87.1] 11/17/2021 Hip fracture requiring operative repair, right,*11/17/2021 Coronary artery disease [I25.10] 10/28/2017 05/12/2022 Type 2 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 (HCC) [E11.9] Renal lesion [N28.9] 01/15/2015 Osteoarthritis of right hip, unspecified osteoa*07/09/2022 07/09/2022 History of total hip replacement, right [Z96.64*08/27/2022 History of total knee replacement, left [Z96.65*08/27/2022 Coronary artery disease involving blackfeet manley*09/04/2022 UTI (urinary tract infection) [N39.0] 09/04/2022 S/P total knee arthroplasty, right [Z96.651] 09/16/2022 01/21/2023 Stiffness of right knee [M25.661] 10/08/2022 01/21/2023 Acute pain of right knee [M25.561] 10/08/2022 01/21/2023 Difficulty walking [R26.2] 10/08/2022 01/21/2023 Localized edema [R60.0] 10/08/2022 01/21/2023 Pancreatic cyst [K86.2] 01/16/2023 SBO (small bowel obstruction) ([facility]) [ (more content not included)... Normal [facility] CNTHERAPYon 09-07-2024 CNTHERAPY OT/PT/Speech Visit ( [facility]) MARY JANE DE PAZ ([id number]) 1950 F Date Time Provider Department 09/07/24 10:00 AM SARAHI BARKER [facility] Date Time Provider Department Center 09/07/2024 10:00 AM [id number], ANDREW [facility] Reason for Visit: Physical Therapy [503] Primary Visit Diagnosis:Impaired strength of lower extremity [R29.898] Other Visit Diagnoses:Balance disorder [R26.89] Iliotibial band syndrome of right side [M76.31] Allergies As of Date: 09/07/2024 (No Known Allergies) Date Reviewed: 08/30/2024 Reviewed by: Demetrice Charlton MA - Fully Assessed Prescriptions as of 09/07/2024 - FLUoxetine (PROZAC) 40 mg capsule Take 1 capsule by mouth two times a day. - levothyroxine (SYNTHROID) 100 mcg tablet Take 1 tablet by mouth once daily. - esomeprazole (NEXIUM) 40 mg capsule TAKE ONE CAPSULE BY MOUTH twice daily. - dulaglutide (TRULICITY) 0.75 mg/0.5 mL pen injector Inject 0.75 mg subcutaneously one time a week. Inject 0.75 mg once weekly - lisinopril (ZESTRIL) 20 mg tablet Take 1 tablet by mouth once daily. - atorvastatin (LIPITOR) 20 mg tablet Take 1 tablet by mouth daily at bedtime. For cholesterol. - famotidine (PEPCID) 20 mg tablet Take 1 tablet by mouth two times a day as needed (GERD). - buPROPion XL (WELLBUTRIN XL) 300 mg 24 hr tablet Take 1 tablet by mouth once daily. - traZODone (DESYREL) 100 mg tablet Take 2 tablets by mouth daily at bedtime. - Blood-Glucose Sensor (FREESTYLE JAUN 3 PLUS SENSOR) guido 1 Each every 2 weeks. CHANGE sensor every 15 days. USE FOR CONTINUOUS GLUCOSE MONITORING. Dx: E11.9 RISK FOR HYPOGLYCEMIA. - melatonin 10 mg tab Take 1 tablet by mouth at bedtime as needed for insomnia. - Calcium Citrate 250 mg calcium tab Take 250 mg by mouth. - coffee xt/phosphatidyl serine (NEURIVA ORIGINAL ORAL) Take 2 tablets by mouth once daily. - APPLE CIDER VINEGAR ORAL Take 1 capsule by mouth once daily. Combined with the tumeric - lactose-reduced food (ADULT NUTRITIONAL SUPPLEMENT ORAL) (Discontinued) Take 1 capsule by mouth once daily. Tumeric - 2000mg capsule - MULTI-VITAMIN ORAL Take 1 tablet by mouth once daily. Takes bariatric multivitamin daily Breading Machine Tender: Addendum Therapy (PT/OT/Speech/Resp) ID: [id number] 09/07/2024 10:49 AM Author: SARAHI BARKER Signed by SARAHI BARKER PT, DPT on 09/07/2024 at 10:49 AM * * * This document replaces document [id number] * * * Document text: Program_ID:[id number] Access Code: [email or web address] URL: [email or web address] Date: 09-07-2024 Prepared By: Apple Bender Program Notes Exercises - Supine Figure 4 Piriformis Stretch - 1 x daily - 7 x weekly - 1 sets - 2 reps - Supine Hip Internal and External Rotation - 1 x daily - 7 x weekly - 1 sets - 10 reps - Seated Table Hamstring Stretch - 1 x daily - 7 x weekly - 3 sets - reps - Hooklying Clamshell with Resistance - 1 x daily - 7 x weekly - 2 sets - 10 reps -------- [facility] THERAPY NTon 09-07-2024 THERAPY NT HNO ID: [id number] Author: SARAHI BARKER, PT, DPT Service: Physical Therapy Author Type: Physical Therapist Type: Therapy (PT/OT/Speech/Resp) Filed: 09/07/2024 10:49 Note Text: Program_ID:[id number] Access Code: [email or web address] URL: [email or web address] Date: 09-07-2024 Prepared By: Apple Bender Program Notes Exercises - Supine Figure 4 Piriformis Stretch - 1 x daily - 7 x weekly - 1 sets - 2 reps - Supine Hip Internal and External Rotation - 1 x daily - 7 x weekly - 1 sets - 10 reps - Seated Table Hamstring Stretch - 1 x daily - 7 x weekly - 3 sets - reps - Hooklying Clamshell with Resistance - 1 x daily - 7 x weekly - 2 sets - 10 reps [facility] US SHOULDER RTon 09-05-2024 US SHOULDER RT * * *Final Report* * * DATE OF EXAM: Sep 05 2024 4:18PM [facility] 1132 - US SHOULDER RT / PROCEDURE REASON: multiple diagnoses * * * * Physician Interpretation * * * * MSK_US RIGHT SHOULDER ULTRASOUND: CLINICAL INFORMATION: Impingement syndrome of right shoulder Rotator cuff strain, right, subsequent encounter TECHNIQUE: Mendiola-scale real-time ultrasound of the shoulder with dynamic imaging and power Doppler imaging was performed. Images were saved to the permanent image archive. v2-20. COMPARISON: X-ray 03/29/2024. RESULT: PECTORALIS MAJOR TENDON: Intact. BICEPS TENDON: Intact and normally positioned. Normal dynamic exam. Moderate tenosynovitis with fluid and hyperemia. SUBSCAPULARIS TENDON: Tendinosis: Moderate - Diffusely with some interstitial tearing of the inferior fibers. Tearing: None. SUBACROMIAL SUBDELTOID BURSA: Mild thickening. Mild associated hyperemia. Normal dynamic exam. SUPRASPINATUS TENDON: Tendinosis: Moderate - Diffusely. Tearing: Tearing - less than 50 percent thickness articular side, less than half width of the anterior fibers. INFRASPINATUS TENDON: Tendinosis: Mild - Diffusely. Tearing: None. POSTERIOR JOINT SPACE/LABRUM: No joint effusion seen. Joint space is maintained. SST/IST/TERES MINOR MUSCLES: Muscle bulk is maintained. No muscle fatty change. ACROMIOCLAVICULAR JOINT: Moderate degenerative changes. IMPRESSION: Rotator cuff tendinosis with small articular sided supraspinatus tear. Long head of biceps tenosynovitis. Mild subacromial/subdeltoid bursitis. Senior Laboratory Technician: PSCB Transcribe Date/Time: Sep 05 2024 4:19P Dictated by : MAHSA SOLIS MD This examination was interpreted and the report reviewed and electronically signed by: MAHSA SOLIS MD on Sep 06 2024 8:21AM EST [id number] Normal [facility] CNOVon 08-30-2024 CNOV Office Visit (ORMDNA ) MARY JANE DE PAZ ([id number]) 1950 F Date Time Provider Department 08/30/24 11:30 AM DELFIN KERR During your visit today, we recorded the following information about you: Delfin Kerr MD 10/02/2024 5:42 PM Signed Patient presents with: Right Wrist - Pain, New AMB ROOMING INTAKE FLOWSHEET DATA Pain Pain Level: 8 Pain Location: Wrist-Right Description: Burning, Sharp Duration Units: Hours Frequency: Intermittent Intervention/Comfort measure: Estuardo Kerr MD Department of Orthopaedics Orthopaedics [address] [address] Dept: [phone] August 30, 2024 CHIEF COMPLAINT: Pain and New of the Right Wrist HPI Mary Jane De Paz is a 74-year-old female presenting with persistent right wrist pain. Mary Jane reports a burning pain in the right wrist that persists despite previous cortisone injections and the use of a brace. The pain is described as nasty and can occur even when Mary Jane is sitting still. The last cortisone injection was administered by Dr. Keys at the beginning of the year, which provided temporary relief. Mary Jane has been using Voltaren gel, which is the same as diclofenac, but reports that it has not been effective in alleviating the pain. Mary Jane also notes that applying ice provides only temporary relief. She has a history of multiple surgeries, including procedures on her fingers performed by Dr. Delgado. Mary Jane has an upcoming appointment for an ultrasound at [facility] next week but it appears that it is for her shoulder. Mary Jane inquires about the possibility of additional cortisone injections for her shoulder, which has shown improvement since the last injection. She is concerned about the number of cortisone injections she can receive. ASSESSMENT: M25.539 Pain of ulnar side of wrist (primary encounter diagnosis) 1. Pain of ulnar side of wrist (M25.539) Persistent ulnar-sided wrist pain despite previous corticosteroid injection and use of diclofenac topical gel. Pain is described as burning and occurs even at rest. Physical examination and history suggest ulnar positive variance, likely contributing to the pain. - Referred to Dr. Higgins for evaluation and potential surgical intervention, including wrist arthroscopy and ulnar shortening osteotomy. - Dr. Higgins's office will contact the patient to schedule an appointment. - Continue use of diclofenac gel as needed for pain management. OBJECTIVE: Ms. Mary Jane De Paz is a pleasant 74 year old in no apparent distress. Gen:There were no vitals taken for this visit. nl development, non obese, no deformities ENT: Normocephalic, normal hearing, moist mucosa CV: Pulses:Radial= 2+ and symmetric, capillary refill < 2 secs, no peripheral edema/varicosities Skin: no rash, bruising or lesions. Good turgor. Psych: cooperative and appropriate, alert and oriented x 3, good mood and affect. Musculoskeletal: - Musculoskeletal: - Right Wrist: Point tenderness over the ulnar aspect. Slight prominance, but mild. Imaging: Imaging: - X-ray of bilateral wrists: Positive ulnar variance observed, on the right wrist suggestive of impingement. Supporting Subjective Information Below: Past Medical History: PAST MEDICAL HISTORY Diagnosis Date Allergic rhinitis Arth[facility], knee Asthma ([facility]) CKD (chronic kidney disease) 11/01/2018 Class 3 severe obesity with serious comorbidity and body mass index (BMI) of 40.0 to 44.9 in adult ([facility]) 08/19/2018 Coronary artery disease 10/28/[address] Salazar Fracture of right hip ([facility]) GERD (gastroesophageal reflux disease) History of transfusion HTN (hypertension) Hypothyroidism Mixed hyperlipidemia NIDDM (non-insulin dependent 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) MARIBEL on CPAP CPAP 9Cm Osteoarthritis of hip Renal lesion 01/15/2015 Suggest renal US every 1-2 years per PCP or nephro. Snoring Type 2 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 with hyperglycemia, with long-term current use of insulin ([facility]) 1999 Past Surgical History: PAST SURGICAL HISTORY Procedure Laterality Date ABDOMINAL SURGERY HX COLONOSCOPY 11/05/2016 Tammi- divertiuclosis, internal hemorrhoids, repeat in 5 years COLONOSCOPY 04/02/2022 repeat in 5 years due to reported prior history of polyps COSMETIC ASSESSMENT EGD 11/05/2016 Tammi- gastritis EGD 09/08/2018 /Gastritis EGD 04/02/2020 EGD 04/02/2022 EYE SURGERY HX Bilateral cataract extraction 2010's GASTRECTOMY,PART DISTAL;W/GASTRODUODENOSTO GASTRIC BYPASS HX 12/13/2018 Laparoscopic Samina-en-Y gastric bypass HIP SURGERY HX Screws replaced JOINT REPLACEMENT HX LAPAROSCOPY DIAGNOSTIC 07/26/2023 internal hernias and mesenteric adhesion OOPHORECTOMY PARTIAL OR TOTAL PAST SURGIC (more content not included)... Normal [facility] [id number] 08-25-2024 [id number] HNO ID: [id number] Author: APPLE BENDER, PT, DPT Service: ? Author Type: Physical Therapist Type: [id number] Filed: 08/25/2024 09:22 Note Text: [facility] Physical Therapy Plan of Care Certification Patient Name: Mary Jane De Paz : 1950 F #: [id number] Date: 08/24/2024 To: Delfin Kerr MD From Therapist: Apple Bender, PT, DPT RE: Patient Certification/ Recertification Your review, approval and electronic signature are required in order to comply with Payor: MMO MEDICARE / Plan: [employer]MO MEDADVANTAGE HMO / Product Type: HMO / regulations. The identified Physical Therapy PLAN OF CARE for the patient is as follows: R29.898 Impaired strength of lower extremity (primary encounter diagnosis) M75.41 Impingement syndrome of right shoulder S46.011D Rotator cuff strain, right, subsequent encounter R26.89 Balance disorder M76.31 Iliotibial band syndrome of right side PLAN OF CARE: Assessment: Mary Jane De Paz presents with chief complaint of right knee pain that interferes with stair negotiation, rising from a chair, sleeping (right sidelying) . The patient presents with impairments in ADL's, balance, flexibility, gait, strength, symptom management, and tissue tenderness. PROMIS? (Patient-Reported Outcomes Measurement Information System) scores were reviewed and identified as a rehabilitation concern. Prognosis for therapy is Good due to: current objective clinical presentation, good overall health status, positive past response to therapy, good support system/ coping skills, Prognosis may be limited due to chronic nature of impairments . The patient demonstrates increase tenderness to right IT band and medial aspect of right knee near pes anserine/proximal tibia. She has decrease strength in bilateral hips. The patient will benefit from skilled therapy services to meet the goals established for this plan of care as noted below. Goals for Episode of Care: established 08/24/24 Patient reported outcome of physical function will increase T-score by a minimum 5 points. [place] in home exercise program. Patient will decrease pain to 0/10 at rest and with functional activities to allow patient to improve ambulation. Patient will increase active ROM of Right knee to 0-125 degrees to allow pt to to improve gait mechanics / gait pattern . Patient will demonstrate increase in Bilateral lower extremitiystrength to 4+/5 during manual muscle testing in order to improve function for prior functional tasks. Perform rising from a chair with decreased report of symptoms/pain in 8 weeks. Patient will Improve Timed Up and Go to 11.44 seconds to demonstrate decreased risk of falling. Patient will improve 5 time sit to stand to 12.6 seconds to demonstrate improvement in functional lower extremity strength. Patient will ascend and descend 12 6 steps with rail. with no device with modified independence and safe technique demonstrating step over step pattern. The patient will have an abolishment to right IT band and medial aspect of right knee in 8 weeks. Patient Goals: not to hurt all the time Time Frame for Goals and Treatment : 10/20/24 Planned Interventions, Frequency, and Duration: Current Frequency: 1x/week Duration: 8 weeks Total Number of Visits Planned: 8 Planned Treatment Interventions: Therapeutic exercise (77607), Neuromuscular re-education (20711), Manual therapy (71327), Therapeutic activities (47337), Self-intermediate management (17125), Gait Training (85230), Body Mechanics Training, E-Stim Attended/TENS (57571) PLAN FOR NEXT VISIT: Strengthening and pain reduction. Consider bridge, SLR, clams, lateral walk, monster walk, shuttle DL and SL, calf press, step up, sit to stand (start at 22 or 20 inches), right knee flexion stretch on step. Dry needling to right knee with or without TENS. Patient demonstrates good understanding of plan of care and treatment. The above goals and plan of care were discussed and agreed upon by patient/family. For further details regarding this patient refer to the Physical Therapy electronically documented visit dated 08/24/2024. Provider Attestation I have reviewed the treatment plan for Mary Jane De Paz, [facility]# [id number] for the period of 08/24/24 -- , established on 08/24/2024. Signature certifies the need for therapy services. [facility] THERAPY NTon 08-25-2024 THERAPY NT HNO ID: [id number] Author: APPLE BENDER, PT, DPT Service: ? Author Type: Physical Therapist Type: Therapy (PT/OT/Speech/Resp) Filed: 08/25/2024 09:05 Note Text: Program_ID:[id number] Access Code: [email or web address] URL: [email or web address] Date: 08-25-2024 Prepared By: Apple Olarewaju Program Notes Exercises - Supine Figure 4 Piriformis Stretch - 1 x daily - 7 x weekly - 1 sets - 2 reps - Supine Hip Internal and External Rotation - 1 x daily - 7 x weekly - 1 sets - 10 reps [facility] CNTHERAPYon 08-24-2024 CNTHERAPY OT/PT/Speech Visit ( [facility]) MARY JANE DE PAZ ([id number]) 1950 F Date Time Provider Department 08/24/24 4:30 PM APPLE BENDER [facility] Date Time Provider Department Center 08/24/2024 4:30 PM [id number], MICHEL*[facility] M Reason for Visit: PT Eval [747] Primary Visit Diagnosis:Impaired strength of lower extremity [R29.898] Other Visit Diagnoses:Impingement syndrome of right shoulder [M75.41] Rotator cuff strain, right, subsequent encounter [S46.011D] Balance disorder [R26.89] Iliotibial band syndrome of right side [M76.31] Allergies As of Date: 08/24/2024 (No Known Allergies) Date Reviewed: 08/18/2024 Reviewed by: Danuta Chacon LPN - Fully Assessed Prescriptions as of 08/25/2024 - FLUoxetine (PROZAC) 40 mg capsule Take 1 capsule by mouth two times a day. - levothyroxine (SYNTHROID) 100 mcg tablet Take 1 tablet by mouth once daily. - esomeprazole (NEXIUM) 40 mg capsule TAKE ONE CAPSULE BY MOUTH twice daily. - dulaglutide (TRULICITY) 0.75 mg/0.5 mL pen injector Inject 0.75 mg subcutaneously one time a week. Inject 0.75 mg once weekly - lisinopril (ZESTRIL) 20 mg tablet Take 1 tablet by mouth once daily. - atorvastatin (LIPITOR) 20 mg tablet Take 1 tablet by mouth daily at bedtime. For cholesterol. - famotidine (PEPCID) 20 mg tablet Take 1 tablet by mouth two times a day as needed (GERD). - buPROPion XL (WELLBUTRIN XL) 300 mg 24 hr tablet Take 1 tablet by mouth once daily. - traZODone (DESYREL) 100 mg tablet Take 2 tablets by mouth daily at bedtime. - Blood-Glucose Sensor (FREESTYLE JAUN 3 PLUS SENSOR) guido 1 Each every 2 weeks. CHANGE sensor every 15 days. USE FOR CONTINUOUS GLUCOSE MONITORING. Dx: E11.9 RISK FOR HYPOGLYCEMIA. - melatonin 10 mg tab Take 1 tablet by mouth at bedtime as needed for insomnia. - Calcium Citrate 250 mg calcium tab Take 250 mg by mouth. - coffee xt/phosphatidyl serine (NEURIVA ORIGINAL ORAL) Take 2 tablets by mouth once daily. - APPLE CIDER VINEGAR ORAL Take 1 capsule by mouth once daily. Combined with the tumeric - lactose-reduced food (ADULT NUTRITIONAL SUPPLEMENT ORAL) (Discontinued) Take 1 capsule by mouth once daily. Tumeric - 2000mg capsule - MULTI-VITAMIN ORAL Take 1 tablet by mouth once daily. Takes bariatric multivitamin daily Breading Machine Tender: Therapy (PT/OT/Speech/Resp) ID: [id number] 08/25/2024 9:05 AM Author: APPLE BENDER Signed by APPLE BENDER PT, DPT on 08/25/2024 at 9:05 AM Document text: Program_ID:[id number] Access Code: [email or web address] URL: [email or web address]/ Date: 08-25-2024 Prepared By: Apple Bender Program Notes Exercises - Supine Figure 4 Piriformis Stretch - 1 x daily - 7 x weekly - 1 sets - 2 reps - Supine Hip Internal and External Rotation - 1 x daily - 7 x weekly - 1 sets - 10 reps -------- Therapy (PT/OT/Speech/Resp) ID: [id number] 08/24/2024 5:15 PM Author: APPLE BENDER Signed by APPLE BENDER PT, DPT on 08/24/2024 at 5:15 PM Document text: Program_ID:[id number] Access Code: [email or web address] URL: [email or web address]/ Date: 08-24-2024 Prepared By: Apple Bender Program Notes Exercises - Supine Figure 4 Piriformis Stretch - 1 x daily - 7 x weekly - 1 sets - 2 reps - Supine Hip Internal and External Rotation - 1 x daily - 7 x weekly - 1 sets - 10 reps -------- Letter Text [facility] THERAPY NTon 08-24-2024 THERAPY NT HNO ID: [id number] Author: APPLE BENDER, PT, DPT Service: ? Author Type: Physical Therapist Type: Therapy (PT/OT/Speech/Resp) Filed: 08/24/2024 17:15 Note Text: Program_ID:[id number] Access Code: [email or web address] URL: [email or web address] Date: 08-24-2024 Prepared By: Apple Bender Program Notes Exercises - Supine Figure 4 Piriformis Stretch - 1 x daily - 7 x weekly - 1 sets - 2 reps - Supine Hip Internal and External Rotation - 1 x daily - 7 x weekly - 1 sets - 10 reps [facility] CNOVon 08-18-2024 CNOV Office Visit ([facility] ) MARY JANE DE PAZ ([id number]) 1950 F Date Time Provider Department 08/18/24 1:45 PM DONAVON PATRICIA During your visit today, we recorded the following information about you: Donavon Patricia MD 08/18/2024 2:02 PM Signed Orthopaedic Office Note: August 18, 2024 2:01 PM Mary Jane De Paz 74 year old History: Mary Jane is a very nice 24-year-old woman well-known to me. I did a right hip conversion and a right knee conversion for her. She is here for follow-up on the right knee. She is having some pain in the right knee. Subjective: Right knee pain over the distal IT band and over the pes bursa Updated ROS: No changes Updated Exam: Right lower Extremity Well-healed incision No effusion Excellent range of motion Stable ligamentous exam Patella tracks centrally Tender palpation exquisitely over the iliotibial band distal third as well as the pes bursa Hip range of motion intact preserved with no pain Updated Imaging: Well-appearing knee replacement in appropriate position and alignment with no evidence of loosening Assessment and Plan: From a hip replacement and knee replacement standpoint, Mary Jane is doing well. She has soft tissue diagnosis of iliotibial band syndrome and pes bursitis. I have ordered physical therapy for both. I have also discussed Voltaren gel and a knee sleeve. All questions were answered today. If not improving in 6 weeks I would like her to reach out via [employer]. I spent a total of approximately 25 minutes on the date of the service which included preparing to see the patient, [id number] patient care, completing clinical documentation, obtaining and/or reviewing separately obtained history, performing a medically appropriate examination, counseling and educating the patient/family/caregiver, ordering medications, tests, or procedures, independently interpreting results (not separately reported), communicating results to the patient/family/caregiver, and care coordination (not separately reported). Donavon Patricia MD Orthopaedic Surgery Allergies As of Date: 08/18/2024 (No Known Allergies) Date Reviewed: 08/18/2024 Reviewed by: Danuta Chacon LPN - Fully Assessed Reason for Visit: Post Op [174] Knee Replacement [363] Knee Pain [132] Primary Visit Diagnosis:Pes anserinus bursitis of right knee [M70.51] Other Visit Diagnoses:It band syndrome, right [M76.31] Status post right knee replacement [Z96.651] Order(s):CONSULT TO PHYSICAL THERAPY [0445] Order #: [id number]: 1 FUTURE Prescriptions as of 08/18/2024 - esomeprazole (NEXIUM) 40 mg capsule TAKE ONE CAPSULE BY MOUTH twice daily. - dulaglutide (TRULICITY) 0.75 mg/0.5 mL pen injector Inject 0.75 mg subcutaneously one time a week. Inject 0.75 mg once weekly - levothyroxine (SYNTHROID) 100 mcg tablet Take 1 tablet by mouth once daily. - lisinopril (ZESTRIL) 20 mg tablet Take 1 tablet by mouth once daily. - atorvastatin (LIPITOR) 20 mg tablet Take 1 tablet by mouth daily at bedtime. For cholesterol. - famotidine (PEPCID) 20 mg tablet Take 1 tablet by mouth two times a day as needed (GERD). - buPROPion XL (WELLBUTRIN XL) 300 mg 24 hr tablet Take 1 tablet by mouth once daily. - traZODone (DESYREL) 100 mg tablet Take 2 tablets by mouth daily at bedtime. - Blood-Glucose Sensor (MobileVedaSTYLE JAUN 3 PLUS SENSOR) guido 1 Each every 2 weeks. CHANGE sensor every 15 days. USE FOR CONTINUOUS GLUCOSE MONITORING. Dx: E11.9 RISK FOR HYPOGLYCEMIA. - FLUoxetine (PROZAC) 40 mg capsule Take 1 capsule by mouth two times a day. - melatonin 10 mg tab Take 1 tablet by mouth at bedtime as needed for insomnia. - Calcium Citrate 250 mg calcium tab Take 250 mg by mouth. - coffee xt/phosphatidyl serine (NEURIVA ORIGINAL ORAL) Take 2 tablets by mouth once daily. - APPLE CIDER VINEGAR ORAL Take 1 capsule by mouth once daily. Combined with the tumeric - lactose-reduced food (ADULT NUTRITIONAL SUPPLEMENT ORAL) (Discontinued) Take 1 capsule by mouth once daily. Tumeric - 2000mg capsule - MULTI-VITAMIN ORAL Take 1 tablet by mouth once daily. 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 Normal [facility] XR KNEE 3V AP/LAT/MERCHANT R Ton 08-18-2024 XR KNEE 3V AP/LAT/MERCHANT RT * * *Final Report* * * DATE OF EXAM: Aug 18 2024 1:19PM FINA 5209 - XR KNEE 3V AP/LAT/MERCHANT RT / PROCEDURE REASON: M25.561-Right knee pain, unspecified chronicity * * * * Physician Interpretation * * * * PROCEDURE: Right knee INDICATION: Right knee pain, unspecified chronicity .right knee pain in replacement TECHNIQUE: XR KNEE 3V AP/LAT/MERCHANT RT COMPARISON: 12/02/2022 FINDINGS: The total knee arthroplasty remains in satisfactory position. No periprosthetic lucency or fracture. No significant joint effusion. Left TKA is noted. IMPRESSION: Stable TKA Senior Laboratory Technician: SEFERINO Transcribe Date/Time: Aug 20 2024 8:24A Dictated by : ASPEN PERALES MD This examination was interpreted and the report reviewed and electronically signed by: ASPEN PERALES MD on Aug 20 2024 8:25AM EST [id number] [facility] DBT Breast - bilateral scree asher 08-03-2024 IMPRESSION: There is no mammographic evidence of malignancy in either breast. Routine screening mammogram is recommended. Annual mammogram will be due in 1 year. BI-RADS Category 1: Negative RISK: Based on the Tyrer-Cuzick (TC) risk assessment model, this patient has a 1.8% lifetime risk of developing breast cancer, meaning they are at average risk for developing breast cancer. However, this is only an estimate based on available history provided on the patient's questionnaire. We encourage all patients to talk with their providers about these results, further recommendations for managing breast health, and appropriate supplemental screening options if the patient has dense breast tissue. Interpreting Radiologist: Jean Pierre Talbert M.D. Electronically signed on: 08/03/2024 Senior Laboratory Technician: MAIKOL Transcrisander Date/Time: Aug 03 2024 11:05A Dictated by : JEAN PIERRE TALBERT MD This examination was interpreted and the report reviewed and electronically signed by: JEAN PIERRE TALBERT MD on Aug 03 2024 2:36PM EST [facility] * * *Final Report* * * DATE OF EXAM: Aug 03 2024 11:20AM RMW 0582 - TONY SCREENING W PELON / PROCEDURE REASON: 37457, 31843, Z12.31 BILATERAL SCREENING MAMMOGRAM WITH CAD * * * * Physician Interpretation * * * * [facility] [place] [address] [facility] [place] [address] #[id number] - TONY SCREENING W PELON HISTORY: 74 year-old patient seen for screening. Patient is asymptomatic. COMPARISON STUDIES: The present examination has been compared to prior imaging studies dated 01/12/2020 (mammogram), 01/14/2021 (mammogram), 02/05/2022 (mammogram) and 03/19/2022 (mammogram). MAMMOGRAM TECHNIQUE: The study was acquired using full field digital technology and interpreted from soft copy. Digital Breast Tomosynthesis (DBT) images were obtained and used to assist in the interpretation of this examination. MAMMOGRAM FINDINGS: The breasts are almost entirely fatty. No suspicious masses, calcifications or other abnormalities are seen in either breast. There are no significant interval changes. [facility] Provider, Evelyn Smith - 08/03/2024 * * *Final Report* * * DATE OF EXAM: Aug 03 2024 11:20AM RMW 0582 - TONY SCREENING W PELON / PROCEDURE REASON: 63147, 11462, Z12.31 BILATERAL SCREENING MAMMOGRAM WITH CAD * * * * Physician Interpretation * * * * [facility] [address] [place] [address] #[id number] - TONY SCREENING W PELON HISTORY: 74 year-old patient seen for screening. Patient is asymptomatic. COMPARISON STUDIES: The present examination has been compared to prior imaging studies dated 01/12/2020 (mammogram), 01/14/2021 (mammogram), 02/05/2022 (mammogram) and 03/19/2022 (mammogram). MAMMOGRAM TECHNIQUE: The study was acquired using full field digital technology and interpreted from soft copy. Digital Breast Tomosynthesis (DBT) images were obtained and used to assist in the interpretation of this examination. MAMMOGRAM FINDINGS: The breasts are almost entirely fatty. No suspicious masses, calcifications or other abnormalities are seen in either breast. There are no significant interval changes. IMPRESSION IMPRESSION: There is no mammographic evidence of malignancy in either breast. Routine screening mammogram is recommended. Annual mammogram will be due in 1 year. BI-RADS Category 1: Negative RISK: Based on the Tyrer-Cuzick (TC) risk assessment model, this patient has a 1.8% lifetime risk of developing breast cancer, meaning they are at average risk for developing breast cancer. However, this is only an estimate based on available history provided on the patient's questionnaire. We encourage all patients to talk with their providers about these results, further recommendations for managing breast health, and appropriate supplemental screening options if the patient has dense breast tissue. Interpreting Radiologist: Jean Pierre Talbert M.D. Electronically signed on: 08/03/2024 Senior Laboratory Technician: MAIKOL Transcribe Date/Time: Aug 03 2024 11:05A Dictated by : JEAN PIERRE TALBERT MD This examination was interpreted and the report reviewed and electronically signed by: JEAN PIERRE TALBERT MD on Aug 03 2024 2:36PM EST [facility] Radiology Study observation (narrative) [facility] DBT Breast - bilateral scree ningOrdered By: [facility] Provider on 08-03-2024 [facility] SCREENING W TOMOon 08-03 [facility] SCREENING W PELON * * *Final Report* * * DATE OF EXAM: Aug 03 2024 11:20AM RMW 0582 - TONY SCREENING W PELON / PROCEDURE REASON: 54027, 73738, Z12.31 BILATERAL SCREENING MAMMOGRAM WITH CAD * * * * Physician Interpretation * * * * [facility] [address] [place] [facility] [id number] #[id number] - TONY SCREENING W PELON HISTORY: 74 year-old patient seen for screening. Patient is asymptomatic. COMPARISON STUDIES: The present examination has been compared to prior imaging studies dated 01/12/2020 (mammogram), 01/14/2021 (mammogram), 02/05/2022 (mammogram) and 03/19/2022 (mammogram). MAMMOGRAM TECHNIQUE: The study was acquired using full field digital technology and interpreted from soft copy. Digital Breast Tomosynthesis (DBT) images were obtained and used to assist in the interpretation of this examination. MAMMOGRAM FINDINGS: The breasts are almost entirely fatty. No suspicious masses, calcifications or other abnormalities are seen in either breast. There are no significant interval changes. IMPRESSION: There is no mammographic evidence of malignancy in either breast. Routine screening mammogram is recommended. Annual mammogram will be due in 1 year. BI-RADS Category 1: Negative RISK: Based on the Tyrer-Cuzick (TC) risk assessment model, this patient has a 1.8% lifetime risk of developing breast cancer, meaning they are at average risk for developing breast cancer. However, this is only an estimate based on available history provided on the patient's questionnaire. We encourage all patients to talk with their providers about these results, further recommendations for managing breast health, and appropriate supplemental screening options if the patient has dense breast tissue. Interpreting Radiologist: Jean Pierre Talbert M.D. Electronically signed on: 08/03/2024 Senior Laboratory Technician: MAIKOL Transcribe Date/Time: Aug 03 2024 11:05A Dictated by : JEAN PIERRE TALBERT MD This examination was interpreted and the report reviewed and electronically signed by: JEAN PIERRE TALBERT MD on Aug 03 2024 2:36PM EST [id number] [facility] CNOVon 08-02-2024 CNOV Office Visit (ORMDNA ) MARY JANE DE PAZ ([id number]) 1950 F Date Time Provider Department 08/02/24 10:30 AM DELFIN KERR During your visit today, we recorded the following information about you: Delfin Kerr MD 08/25/2024 5:28 PM Signed Delfin Kerr MD Department of Orthopaedics Orthopaedics [address] [place] [id number] Dept: [phone] August 25, 2024 CHIEF COMPLAINT: Established Patient and Pain of the Right Shoulder Patient presents for a follow up right shoulder pain. She states she has intermittent sharp 8/10 pain with movement. Currently she is not taking any oral medications for pain control. Right hand dominant. Last office visit 03/29/2024, she was given a steroid injection; helped approximately one month. HPI: BARBARA Gray is a 74-year-old female with a history of diabetes, presenting for evaluation of right shoulder pain. Mary Jane reports persistent right shoulder pain since a fall in March, which has been variably described as a sharp, hot pain located near the trapezius and extending to the area of the rotator cuff and biceps tendon. The pain is intermittent, with the sharp pain not felt in the past several days. She received a corticosteroid injection in March, which provided relief for approximately one month. She has been applying Voltaren gel to the shoulder area, but not on the top of the shoulder. She denies any recent imaging studies such as an ultrasound. Mary Jane also reports severe, constant knee pain following a knee replacement performed by Dr. Patricia. She is unable to undergo MRI due to a stent. She has a history of multiple falls and expresses concern about a potential rotator cuff tear. She has not engaged in physical therapy for the shoulder but has therapy bands at home. She denies any recent mendez or electrocution injuries. ASSESSMENT: M75.41 Impingement syndrome of right shoulder (primary encounter diagnosis) S46.011D Rotator cuff strain, right, subsequent encounter 1. Impingement syndrome of right shoulder (M75.41) Rotator cuff strain, right, subsequent encounter (S46.011D) Persistent pain in the right shoulder with varying intensity, including sharp, hot pain near the trapezius and discomfort near the rotator cuff and biceps tendon. Previous injection provided temporary relief. X-rays from March were unremarkable, but do not visualize tendons. Differential includes bursitis versus tendon injury. - Ordered ultrasound of the right shoulder to evaluate the rotator cuff and biceps tendon. - Initiated physical therapy referral for shoulder strengthening exercises. - Patient to continue using Voltaren gel topically on the shoulder. - Follow-up after ultrasound results to discuss further management, including potential repeat injection or surgical referral if a significant tear is identified. Will continue to monitor patient for Impingement syndrome of right shoulder (primary encounter diagnosis) Rotator cuff strain, right, subsequent encounter, patient to schedule visit as per follow up discussed. OBJECTIVE: Ms. Mary Jane De Paz is a pleasant 74 year old in no apparent distress. Gen:There were no vitals taken for this visit. nl development, non obese, no deformities ENT: Normocephalic, normal hearing, moist mucosa CV: Pulses:Radial= 2+ and symmetric, capillary refill < 2 secs, no peripheral edema/varicosities Skin: no rash, bruising or lesions. Good turgor. Psych: cooperative and appropriate, alert and oriented x 3, good mood and affect. Musculoskeletal: - Musculoskeletal: - Right Shoulder: Tenderness over rotator cuff and biceps tendon. Limited motion with 170, 50, upper lumbar. Positive Neer, Mullins and Speed's. Imaging: Labs: - Renal function tests: Mildly elevated Imaging: - (March) Shoulder X-ray: No significant abnormalities noted Impression IMPRESSION: Findings as discussed in results portion of report Senior Laboratory Technician: PSCB Transcribe Date/Time: Mar 29 2024 4:16P Dictated by : DESHAUN WHITAKER DO This examination was interpreted and the report reviewed and electronically signed by: DESHAUN WHITAKER DO on Mar 29 2024 4:17PM EST Results-Findings * * *Final Report* * * DATE OF EXAM: Mar 29 2024 11:08AM FINA 5253 - XR SHLDR >/=3V AP/REGINA AP/OTHR RT / PROCEDURE REASON: M25.511-Right shoulder pain, unspecified chronicity * * * * Physician Interpretation * * * * EXAM(s): XR SHLDR >/=3V AP/REGINA AP/OTHR RT..... HISTORY: 74 years old Clinical information: Right shoulder pain, unspecified chronicity Patient states that she has been having right side shoulder pain for some time. TECHNIQUE: Images: XR SHLDR >/=3V AP/REGINA AP/OTHR RT Comparison: None. RESULT: Moderate bony demineralization. Moderate degenerative changes in the spine Findings: Mode (more content not included)... Normal [facility] 08-02-2024 [facility] Telephone ([facility]) MARY JANE DE PAZ ([id number]) 1950 F Date Time Provider Department 08/02/24 RAFAEL T[address]LOR 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 Total Hold Time 5 Minutes. Program reports patient has been approved through 03/22/2025. Medication will be shipped to patient's home within 10-14 business days. Patient has been informed. KHUSHBOO Bridges LSW August 02, 2024 1:30 PM Allergies As of Date: 08/02/2024 (No Known Allergies) Date Reviewed: 08/02/2024 Reviewed by: Danuta Chacon LPN - Fully Assessed Prescriptions as of 08/02/2024 - dulaglutide (TRULICITY) 0.75 mg/0.5 mL pen injector Inject 0.75 mg subcutaneously one time a week. Inject 0.75 mg once weekly - levothyroxine (SYNTHROID) 100 mcg tablet Take 1 tablet by mouth once daily. - lisinopril (ZESTRIL) 20 mg tablet Take 1 tablet by mouth once daily. - atorvastatin (LIPITOR) 20 mg tablet Take 1 tablet by mouth daily at bedtime. For cholesterol. - famotidine (PEPCID) 20 mg tablet Take 1 tablet by mouth two times a day as needed (GERD). - buPROPion XL (WELLBUTRIN XL) 300 mg 24 hr tablet Take 1 tablet by mouth once daily. - traZODone (DESYREL) 100 mg tablet Take 2 tablets by mouth daily at bedtime. - Blood-Glucose Sensor (MobileVedaSTYLE JAUN 3 PLUS SENSOR) guido 1 Each every 2 weeks. CHANGE sensor every 15 days. USE FOR CONTINUOUS GLUCOSE MONITORING. Dx: E11.9 RISK FOR HYPOGLYCEMIA. - esomeprazole (NEXIUM) 40 mg capsule TAKE ONE CAPSULE BY MOUTH twice daily. - FLUoxetine (PROZAC) 40 mg capsule Take 1 capsule by mouth two times a day. - melatonin 10 mg tab Take 1 tablet by mouth at bedtime as needed for insomnia. - Calcium Citrate 250 mg calcium tab Take 250 mg by mouth. - coffee xt/phosphatidyl serine (NEURIVA ORIGINAL ORAL) Take 2 tablets by mouth once daily. - APPLE CIDER VINEGAR ORAL Take 1 capsule by mouth once daily. Combined with the tumeric - lactose-reduced food (ADULT NUTRITIONAL SUPPLEMENT ORAL) (Discontinued) Take 1 capsule by mouth once daily. Tumeric - 2000mg capsule - MULTI-VITAMIN ORAL Take 1 tablet by mouth once daily. 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] 08/05/2010 HTN (hypertension) [I10] 12/05/2011 10/14/2014 Hyperlipidemia [E78.5] 08/04/2012 Hypothyroid [E03.9] 11/28/2012 Generalized postprandial abdominal pain [R10.84]09/01/2013 Diarrhea [R19.7] 09/01/2013 08/30/2020 IBS (irritable bowel syndrome) [K58.9] 09/01/2013 Moderate episode of recurrent major depressive *04/28/2014 Essential hypertension [I10] 10/14/2014 MARIBEL (obstructive sleep apnea) [G47.33] 09/17/2015 Cognitive decline [R41.89] 01/10/2016 Other symbolic dysfunction [R48.8] 04/22/2016 Actinic keratoses [L57.0] 07/30/2016 GERD without esophagitis [K21.9] 10/09/2016 Encounter for screening colonoscopy [Z12.11] 10/09/2016 08/30/2020 Pain of foot [M79.673] 11/27/2016 08/30/2020 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9] 11/27/2016 Hypertensive kidney disease with stage 3 chroni*04/13/2017 Contusion of leg, left, sequela [S80.12XS] 04/30/2017 08/30/2020 De Quervain's tenosynovitis, left [M65.4] 01/09/2018 Post-operative state [Z98.890] 05/26/2018 08/30/2020 Joint stiffness of hand, left [M25.642] 06/22/2018 Metacarpophalangeal joint pain of left hand [M2*07/20/2018 Finger pain, left [M79.645] 07/20/2018 Class 3 severe obesity with serious comorbidity*08/19/2018 08/30/2020 Asthma [J45.909] Stage 3 chronic kidney disease (HCC) [N18.30] 11/01/2018 Obesity [E66.9] 12/14/2018 08/30/2020 Obesity, Class II, BMI 35-39.9 [E66.812] 12/17/2018 08/30/2020 H/O gastric bypass [Z98.84] 12/23/2018 Closed displaced fracture of right femoral neck*11/17/2021 Hyponatremia [E87.1] 11/17/2021 Hip fracture requiring operative repair, right,*11/17/2021 Coronary artery disease [I25.10] 10/28/2017 05/12/2022 Type 2 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 (HCC) [E11.9] Renal lesion [N28.9] 01/15/2015 Osteoarthritis of right hip, unspecified osteoa*07/09/2022 07/09/2022 History of total hip replacement, right [Z96.64*08/27/2022 History of total knee replacement, left [Z96.65*08/27/2022 Coronary artery disease involving blackfeet manley*09/04/2022 UTI (urinary tract infection) [N39.0] 09/04/2022 S/P total knee arthroplasty, right [Z96.651] 09/16/2022 01/21/2023 Stiffness of right knee [M25.661] 10/08/2022 01/21/2023 Acute pain of right knee [M25.561] 10/08/2022 01/21/2023 Difficulty walking (more content not included)... Normal [facility] CNPN Telephone (RULTTB) MARY JANE DE PAZ ([id number]) 1950 F Date Time Provider Department 08/02/24 SARAHI STYLES RUTB During your visit today, we recorded the following information about you: Russell Hood 08/02/2024 11:58 AM Signed Visit Type: ANY MSK Visit Length: 45, 50 OR 60 MINUTES Order Name/Protocol: US SHOULDER RT; EVAL FOR IMPINGEMENT SYNDROME+RTC STRAIN Preferred Provider: N/A Comment: Please ask if the patient has ever had any prior surgery to their RT shoulder. If so, upgrade the visit type to an MSK1 and notate the surgical hx in the Appointment Note. Location: Depending on the surgical hx, this patient can have this exam performed at any of our four locations. Slot held: N/A Russell Hood 08/02/2024 12:07 PM Signed PT scheduled for MSK US on 09/05/24 at 3:45 PM at [facility] Allergies As of Date: 08/02/2024 (No Known Allergies) Date Reviewed: 08/02/2024 Reviewed by: Danuta Chacon LPN - Fully Assessed Reason for Visit: Appointment [186] Prescriptions as of 08/02/2024 - dulaglutide (TRULICITY) 0.75 mg/0.5 mL pen injector Inject 0.75 mg subcutaneously one time a week. Inject 0.75 mg once weekly - levothyroxine (SYNTHROID) 100 mcg tablet Take 1 tablet by mouth once daily. - lisinopril (ZESTRIL) 20 mg tablet Take 1 tablet by mouth once daily. - atorvastatin (LIPITOR) 20 mg tablet Take 1 tablet by mouth daily at bedtime. For cholesterol. - famotidine (PEPCID) 20 mg tablet Take 1 tablet by mouth two times a day as needed (GERD). - buPROPion XL (WELLBUTRIN XL) 300 mg 24 hr tablet Take 1 tablet by mouth once daily. - traZODone (DESYREL) 100 mg tablet Take 2 tablets by mouth daily at bedtime. - Blood-Glucose Sensor (Secure-NOKYLE JAUN 3 PLUS SENSOR) guido 1 Each every 2 weeks. CHANGE sensor every 15 days. USE FOR CONTINUOUS GLUCOSE MONITORING. Dx: E11.9 RISK FOR HYPOGLYCEMIA. - esomeprazole (NEXIUM) 40 mg capsule TAKE ONE CAPSULE BY MOUTH twice daily. - FLUoxetine (PROZAC) 40 mg capsule Take 1 capsule by mouth two times a day. - melatonin 10 mg tab Take 1 tablet by mouth at bedtime as needed for insomnia. - Calcium Citrate 250 mg calcium tab Take 250 mg by mouth. - coffee xt/phosphatidyl serine (NEURIVA ORIGINAL ORAL) Take 2 tablets by mouth once daily. - APPLE CIDER VINEGAR ORAL Take 1 capsule by mouth once daily. Combined with the tumeric - lactose-reduced food (ADULT NUTRITIONAL SUPPLEMENT ORAL) (Discontinued) Take 1 capsule by mouth once daily. Tumeric - 2000mg capsule - MULTI-VITAMIN ORAL Take 1 tablet by mouth once daily. 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] 08/05/2010 HTN (hypertension) [I10] 12/05/2011 10/14/2014 Hyperlipidemia [E78.5] 08/04/2012 Hypothyroid [E03.9] 11/28/2012 Generalized postprandial abdominal pain [R10.84]09/01/2013 Diarrhea [R19.7] 09/01/2013 08/30/2020 IBS (irritable bowel syndrome) [K58.9] 09/01/2013 Moderate episode of recurrent major depressive *04/28/2014 Essential hypertension [I10] 10/14/2014 MARIBEL (obstructive sleep apnea) [G47.33] 09/17/2015 Cognitive decline [R41.89] 01/10/2016 Other symbolic dysfunction [R48.8] 04/22/2016 Actinic keratoses [L57.0] 07/30/2016 GERD without esophagitis [K21.9] 10/09/2016 Encounter for screening colonoscopy [Z12.11] 10/09/2016 08/30/2020 Pain of foot [M79.673] 11/27/2016 08/30/2020 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9] 11/27/2016 Hypertensive kidney disease with stage 3 chroni*04/13/2017 Contusion of leg, left, sequela [S80.12XS] 04/30/2017 08/30/2020 De Quervain's tenosynovitis, left [M65.4] 01/09/2018 Post-operative state [Z98.890] 05/26/2018 08/30/2020 Joint stiffness of hand, left [M25.642] 06/22/2018 Metacarpophalangeal joint pain of left hand [M2*07/20/2018 Finger pain, left [M79.645] 07/20/2018 Class 3 severe obesity with serious comorbidity*08/19/2018 08/30/2020 Asthma [J45.909] Stage 3 chronic kidney disease (HCC) [N18.30] 11/01/2018 Obesity [E66.9] 12/14/2018 08/30/2020 Obesity, Class II, BMI 35-39.9 [E66.812] 12/17/2018 08/30/2020 H/O gastric bypass [Z98.84] 12/23/2018 Closed displaced fracture of right femoral neck*11/17/2021 Hyponatremia [E87.1] 11/17/2021 Hip fracture requiring operative repair, right,*11/17/2021 Coronary artery disease [I25.10] 10/28/2017 05/12/2022 Type 2 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 (HCC) [E11.9] Renal lesion [N28.9] 01/15/2015 Osteoarthritis of right hip, unspecified osteoa*07/09/2022 07/09/2022 History of total hip replacement, right [Z96.64*08/27/2022 History of total knee replacement, left [Z96.65*08/27/2022 Coronary artery disease involving blackfeet manley*09/04/2022 UTI (urinary tract infection) [N39.0] 09/04/2022 S/P total knee arthroplast (more content not included)... Normal [facility] CNPNon 07-26-2024 CNPN Refill ([facility]) MARY JANE DE PAZ ([id number]) 1950 F Date Time Provider Department 07/26/24 RAFAEL [address]RAYLOR [facility] During your visit today, we recorded the following information about you: Rafael Traylor LSW 07/26/2024 7:55 AM Signed Mary Jane De Paz [id number] Received completed Patient Assistance Application through [employer] for the medication(s) Trulicity. Included Patient's Signature Still Needs: Provider's Signature Faxed to # [phone] for provider's signature. FAX OK. Provider will need to send E-Rx to [facility] [place] [address] - [address] [facility] [phone] KHUSHBOO Tomlinson, DUC July 26, 2024 7:53 AM Baljindre Solis RN 07/27/2024 9:40 AM Addendum [employer] Patient Assistance application was faxed to Marimar Wilcox's [facility]. Will route to that pool for notification and completion. Trulicity Rx pended in encounter to go to [facility] and sent to Marimar Wilcox CNP. Baljinder Solis RN July 27, 2024 9:32 AM Baljinder Solis RN 07/27/2024 9:42 AM Signed Addended by: BALJINDER SOLIS on: 07/27/2024 09:42 AM Modules accepted: Le Lester MA 07/27/2024 10:15 AM Signed Faxed 3 pg's of pap received from DUC Bridges [facility] Flow Machine Operator.to the [place] office for completion.conformation received placed in pend file for 15 days to verify completion. LYNDON Newton Brittney, RN 07/27/2024 4:24 PM Signed Prescriber portion of [facility] Patient Assistance application for Trulicity completed by Marimar Wilcox CNP and faxed back to DUC Snyder. Fax confirmation received. Baljinder Solis RN July 27, 2024 4:23 PM Allergies As of Date: 07/26/2024 (No Known Allergies) Date Reviewed: 05/11/2024 Reviewed by: Baljinder Solis RN - Fully Assessed Reason for Visit: PA Manjinder Faxed to [place] Office [Other] Cmt: [facility] Visit Diagnosis:Controlled type 2 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, without long-term current use of insulin (HCC) [E11.9] Order(s):dulaglutide (TRULICITY) 0.75 mg/0.5 mL pen injectorInject 0.75 mg subcutaneously one time a week. Inject 0.75 mg once weeklyDisp: 6 mLRfl: 3 Prescriptions as of 07/27/2024 - dulaglutide (TRULICITY) 0.75 mg/0.5 mL pen injector Inject 0.75 mg subcutaneously one time a week. Inject 0.75 mg once weekly - levothyroxine (SYNTHROID) 100 mcg tablet Take 1 tablet by mouth once daily. - lisinopril (ZESTRIL) 20 mg tablet Take 1 tablet by mouth once daily. - atorvastatin (LIPITOR) 20 mg tablet Take 1 tablet by mouth daily at bedtime. For cholesterol. - famotidine (PEPCID) 20 mg tablet Take 1 tablet by mouth two times a day as needed (GERD). - buPROPion XL (WELLBUTRIN XL) 300 mg 24 hr tablet Take 1 tablet by mouth once daily. - traZODone (DESYREL) 100 mg tablet Take 2 tablets by mouth daily at bedtime. - Blood-Glucose Sensor (FREESTYLE JAUN 3 PLUS SENSOR) guido 1 Each every 2 weeks. CHANGE sensor every 15 days. USE FOR CONTINUOUS GLUCOSE MONITORING. Dx: E11.9 RISK FOR HYPOGLYCEMIA. - esomeprazole (NEXIUM) 40 mg capsule TAKE ONE CAPSULE BY MOUTH twice daily. - FLUoxetine (PROZAC) 40 mg capsule Take 1 capsule by mouth two times a day. - melatonin 10 mg tab Take 1 tablet by mouth at bedtime as needed for insomnia. - Calcium Citrate 250 mg calcium tab Take 250 mg by mouth. - coffee xt/phosphatidyl serine (NEURIVA ORIGINAL ORAL) Take 2 tablets by mouth once daily. - APPLE CIDER VINEGAR ORAL Take 1 capsule by mouth once daily. Combined with the tumeric - lactose-reduced food (ADULT NUTRITIONAL SUPPLEMENT ORAL) (Discontinued) Take 1 capsule by mouth once daily. Tumeric - 2000mg capsule - MULTI-VITAMIN ORAL Take 1 tablet by mouth once daily. 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] 08/05/2010 HTN (hypertension) [I10] 12/05/2011 10/14/2014 Hyperlipidemia [E78.5] 08/04/2012 Hypothyroid [E03.9] 11/28/2012 Generalized postprandial abdominal pain [R10.84]09/01/2013 Diarrhea [R19.7] 09/01/2013 08/30/2020 IBS (irritable bowel syndrome) [K58.9] 09/01/2013 Moderate episode of recurrent major depressive *04/28/2014 Essential hypertension [I10] 10/14/2014 MARIBEL (obstructive sleep apnea) [G47.33] 09/17/2015 Cognitive decline [R41.89] 01/10/2016 Other symbolic dysfunction [R48.8] 04/22/2016 Actinic keratoses [L57.0] 07/30/2016 GERD without esophagitis [K21.9] 10/09/2016 Encounter for screening colonoscopy [Z12.11] 10/09/2016 08/30/2020 Pain of foot [M79.673] 11/27/2016 08/30/2020 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 Normal [facility] TSH SerPl-aCncon 07-18-2024 TSH Qn 2.771 m[IU]/L Normal 0.358-3.74 0 [facility] Comment on above: Order Comment: Speci men Type: BLOOD SPECIMEN Ordering Facility: [facility] Address: [address] [place] [address] Result Comment: 3rd generation ultra sensitive TSH. Performed By: #### 3 [id number] #### [facility] CLIA [id number] [address] [place] [address] [place] CNPMary 07-[facility] MARY JANE DE PAZ ([id number]) 1950 F Date Time Provider Department 07/15/24 RAFAEL TRAYLOR [facility] During your visit today, we recorded the following information about you: Rafael Traylor LSW 07/15/2024 2:39 PM Signed Endocrinology AND Metabolism Social Work Progress Note Provider Action / FYI N/A Mary Jane De Paz [phone] Type of Contact: telephone Endocrine ELEVATOR TENDER Referral Reason: Medication Cost Concerns Contact Made?: YES- Patient could not talk at this moment, unable to verify information.Will follow up and attempt to reach patient. Note/Intervention: Will call back later today as patient stated she is in a business transaction [employer] referral placed: n/a Signature: DUC Bridges Patient Name: Mary Jane Keysfield Date: 07/15/2024 Time: 2:00 PM Pager/Contact #: [phone] During this patient contact I spent approximately 10 minutes in reviewing the patient's chart and counseling regarding community resources and coordinating care. Rafael Traylor LSW 07/15/2024 3:39 PM Signed Mary Jane De Paz [id number] DUC contacted patient at 3:30 PM and discussed PAP. Patient would like the application emailed to her as it would be easiest. She requests it be sent to [email or web address] DUC Bridges Endocrinology concession worker July 15, 2024 3:34 PM Allergies As of Date: 07/15/2024 (No Known Allergies) Date Reviewed: 05/11/2024 Reviewed by: Baljinder Solis, RN - Fully Assessed Prescriptions as of 07/15/2024 - lisinopril (ZESTRIL) 20 mg tablet Take 1 tablet by mouth once daily. - atorvastatin (LIPITOR) 20 mg tablet Take 1 tablet by mouth daily at bedtime. For cholesterol. - famotidine (PEPCID) 20 mg tablet Take 1 tablet by mouth two times a day as needed (GERD). - buPROPion XL (WELLBUTRIN XL) 300 mg 24 hr tablet Take 1 tablet by mouth once daily. - traZODone (DESYREL) 100 mg tablet Take 2 tablets by mouth daily at bedtime. - Blood-Glucose Sensor (FREESTYLE JAUN 3 PLUS SENSOR) guido 1 Each every 2 weeks. CHANGE sensor every 15 days. USE FOR CONTINUOUS GLUCOSE MONITORING. Dx: E11.9 RISK FOR HYPOGLYCEMIA. - dulaglutide (TRULICITY) 0.75 mg/0.5 mL pen injector Inject 0.75 mg once weekly. PT ASST through [employer] - esomeprazole (NEXIUM) 40 mg capsule TAKE ONE CAPSULE BY MOUTH twice daily. - FLUoxetine (PROZAC) 40 mg capsule Take 1 capsule by mouth two times a day. - levothyroxine (SYNTHROID) 100 mcg tablet Take 1 tablet by mouth once daily. - melatonin 10 mg tab Take 1 tablet by mouth at bedtime as needed for insomnia. - Calcium Citrate 250 mg calcium tab Take 250 mg by mouth. - coffee xt/phosphatidyl serine (NEURIVA ORIGINAL ORAL) Take 2 tablets by mouth once daily. - APPLE CIDER VINEGAR ORAL Take 1 capsule by mouth once daily. Combined with the tumeric - lactose-reduced food (ADULT NUTRITIONAL SUPPLEMENT ORAL) (Discontinued) Take 1 capsule by mouth once daily. Tumeric - 2000mg capsule - MULTI-VITAMIN ORAL Take 1 tablet by mouth once daily. 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] 08/05/2010 HTN (hypertension) [I10] 12/05/2011 10/14/2014 Hyperlipidemia [E78.5] 08/04/2012 Hypothyroid [E03.9] 11/28/2012 Generalized postprandial abdominal pain [R10.84]09/01/2013 Diarrhea [R19.7] 09/01/2013 08/30/2020 IBS (irritable bowel syndrome) [K58.9] 09/01/2013 Moderate episode of recurrent major depressive *04/28/2014 Essential hypertension [I10] 10/14/2014 MARIBEL (obstructive sleep apnea) [G47.33] 09/17/2015 Cognitive decline [R41.89] 01/10/2016 Other symbolic dysfunction [R48.8] 04/22/2016 Actinic keratoses [L57.0] 07/30/2016 GERD without esophagitis [K21.9] 10/09/2016 Encounter for screening colonoscopy [Z12.11] 10/09/2016 08/30/2020 Pain of foot [M79.673] 11/27/2016 08/30/2020 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9] 11/27/2016 Hypertensive kidney disease with stage 3 chroni*04/13/2017 Contusion of leg, left, sequela [S80.12XS] 04/30/2017 08/30/2020 De Quervain's tenosynovitis, left [M65.4] 01/09/2018 Post-operative state [Z98.890] 05/26/2018 08/30/2020 Joint stiffness of hand, left [M25.642] 06/22/2018 Metacarpophalangeal joint pain of left hand [M2*07/20/2018 Finger pain, left [M79.645] 07/20/2018 Class 3 severe obesity with serious comorbidity*08/19/2018 08/30/2020 Asthma [J45.909] Stage 3 chronic kidney disease (HCC) [N18.30] 11/01/2018 Obesity [E66.9] 12/14/2018 08/30/2020 Obesity, Class II, BMI 35-39.9 [E66.812] 12/17/2018 08/30/2020 H/O gastric bypass [Z98.84] 12/23/2018 Closed displaced fracture of right femoral neck*11/17/2021 Hyponatremia [E87.1] 11/17/2021 Hip fracture requiring operat (more content not included)... Normal [facility] CNPNon 06-23-2024 CNPN Telephone (LESIAT) MARY JANE DE PAZ ([id number]) 1950 F Date Time Provider Department 06/23/24 ANANYA SANDY During your visit today, we recorded the following information about you: Ananya Sandy MSW 06/23/2024 3:23 PM Signed Sw spoke with patient in regards to transportation and she will call her member services number on card to see about transportation option to medical appts. Patient and Sw also discussed activities in the community. Sw is aware of the community center offering days for card playing, hikes/walking trails, yoga. Patient notes that she has an interest in bingo and playing cards. Sw checking with Saima, [employer], Senior Outreach to see if she has a resource list with above activity options in the community. Allergies As of Date: 06/23/2024 (No Known Allergies) Date Reviewed: 05/11/2024 Reviewed by: Baljinder Solis, GRACE - Fully Assessed Prescriptions as of 06/27/2024 - lisinopril (ZESTRIL) 20 mg tablet Take 1 tablet by mouth once daily. - atorvastatin (LIPITOR) 20 mg tablet Take 1 tablet by mouth daily at bedtime. For cholesterol. - famotidine (PEPCID) 20 mg tablet Take 1 tablet by mouth two times a day as needed (GERD). - buPROPion XL (WELLBUTRIN XL) 300 mg 24 hr tablet Take 1 tablet by mouth once daily. - traZODone (DESYREL) 100 mg tablet Take 2 tablets by mouth daily at bedtime. - Blood-Glucose Sensor (MobileVedaSTYLE JAUN 3 PLUS SENSOR) guido 1 Each every 2 weeks. CHANGE sensor every 15 days. USE FOR CONTINUOUS GLUCOSE MONITORING. Dx: E11.9 RISK FOR HYPOGLYCEMIA. - dulaglutide (TRULICITY) 0.75 mg/0.5 mL pen injector Inject 0.75 mg once weekly. PT ASST through [employer] - esomeprazole (NEXIUM) 40 mg capsule TAKE ONE CAPSULE BY MOUTH twice daily. - FLUoxetine (PROZAC) 40 mg capsule Take 1 capsule by mouth two times a day. - levothyroxine (SYNTHROID) 100 mcg tablet Take 1 tablet by mouth once daily. - melatonin 10 mg tab Take 1 tablet by mouth at bedtime as needed for insomnia. - Calcium Citrate 250 mg calcium tab Take 250 mg by mouth. - coffee xt/phosphatidyl serine (NEURIVA ORIGINAL ORAL) Take 2 tablets by mouth once daily. - APPLE CIDER VINEGAR ORAL Take 1 capsule by mouth once daily. Combined with the tumeric - lactose-reduced food (ADULT NUTRITIONAL SUPPLEMENT ORAL) (Discontinued) Take 1 capsule by mouth once daily. Tumeric - 2000mg capsule - MULTI-VITAMIN ORAL Take 1 tablet by mouth once daily. 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] 08/05/2010 HTN (hypertension) [I10] 12/05/2011 10/14/2014 Hyperlipidemia [E78.5] 08/04/2012 Hypothyroid [E03.9] 11/28/2012 Generalized postprandial abdominal pain [R10.84]09/01/2013 Diarrhea [R19.7] 09/01/2013 08/30/2020 IBS (irritable bowel syndrome) [K58.9] 09/01/2013 Moderate episode of recurrent major depressive *04/28/2014 Essential hypertension [I10] 10/14/2014 MARIBEL (obstructive sleep apnea) [G47.33] 09/17/2015 Cognitive decline [R41.89] 01/10/2016 Other symbolic dysfunction [R48.8] 04/22/2016 Actinic keratoses [L57.0] 07/30/2016 GERD without esophagitis [K21.9] 10/09/2016 Encounter for screening colonoscopy [Z12.11] 10/09/2016 08/30/2020 Pain of foot [M79.673] 11/27/2016 08/30/2020 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9] 11/27/2016 Hypertensive kidney disease with stage 3 chroni*04/13/2017 Contusion of leg, left, sequela [S80.12XS] 04/30/2017 08/30/2020 De Quervain's tenosynovitis, left [M65.4] 01/09/2018 Post-operative state [Z98.890] 05/26/2018 08/30/2020 Joint stiffness of hand, left [M25.642] 06/22/2018 Metacarpophalangeal joint pain of left hand [M2*07/20/2018 Finger pain, left [M79.645] 07/20/2018 Class 3 severe obesity with serious comorbidity*08/19/2018 08/30/2020 Asthma [J45.909] Stage 3 chronic kidney disease (HCC) [N18.30] 11/01/2018 Obesity [E66.9] 12/14/2018 08/30/2020 Obesity, Class II, BMI 35-39.9 [E66.812] 12/17/2018 08/30/2020 H/O gastric bypass [Z98.84] 12/23/2018 Closed displaced fracture of right femoral neck*11/17/2021 Hyponatremia [E87.1] 11/17/2021 Hip fracture requiring operative repair, right,*11/17/2021 Coronary artery disease [I25.10] 10/28/2017 05/12/2022 Type 2 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 (HCC) [E11.9] Renal lesion [N28.9] 01/15/2015 Osteoarthritis of right hip, unspecified osteoa*07/09/2022 07/09/2022 History of total hip replacement, right [Z96.64*08/27/2022 History of total knee replacement, left [Z96.65*08/27/2022 Coronary artery disease involving blackfeet manley*09/04/2022 UTI (urinary tract infection) [N39.0] 09/04/2022 S/P total knee arthroplasty, right [Z96.651] 09/16/2022 01/21/2023 Stiffness of right knee [M25.661] 10/08/2022 01/21/2023 Acute pain (more content not included)... Normal [facility] CNPNon 05-18-2024 CNPN Telephone (ENWSTR) MARY JANE DE PAZ ([id number]) 1950 F Date Time Provider Department 05/18/24 MARIMAR WILCOX ENWSTR During your visit today, we recorded the following information about you: Baljinder Solis RN 05/18/2024 10:51 AM Signed Most recent OV notes faxed to [facility] for existing CGM order. Fax confirmation received. Baljinder Solis RN May 18, 2024 10:51 AM Sera Richardson MA 05/26/2024 11:25 AM Addendum Received DWO for patient's CGM. Once signed, will fax to [place] office where previously signed OV notes will be sent. Faxed to [place] office. Received confirmation and filed in drawer. LYNDON Rajan Brittney, RN 05/26/2024 3:05 PM Signed Signed DWO for CGM faxed to [facility] for Pt's existing Freestyle Jaun 3 PLUS order. Fax confirmation received. Baljinder Solis RN May 26, 2024 3:05 PM Allergies As of Date: 05/18/2024 (No Known Allergies) Date Reviewed: 05/11/2024 Reviewed by: Baljinder Solis RN - Fully Assessed Reason for Visit: Updated OV Notes to DME [Other] DWO to [facility] [Other] Prescriptions as of 05/26/2024 - Blood-Glucose Sensor (FREESTYLE JAUN 3 PLUS SENSOR) ugido 1 Each every 2 weeks. CHANGE sensor every 15 days. USE FOR CONTINUOUS GLUCOSE MONITORING. Dx: E11.9 RISK FOR HYPOGLYCEMIA. - dulaglutide (TRULICITY) 0.75 mg/0.5 mL pen injector Inject 0.75 mg once weekly. PT ASST through [employer] - famotidine (PEPCID) 20 mg tablet Take 1 tablet by mouth two times a day as needed (GERD). - lisinopril (ZESTRIL) 20 mg tablet Take 1 tablet by mouth once daily. - atorvastatin (LIPITOR) 20 mg tablet Take 1 tablet by mouth daily at bedtime. For cholesterol. - traZODone (DESYREL) 100 mg tablet Take 2 tablets by mouth daily at bedtime. - esomeprazole (NEXIUM) 40 mg capsule TAKE ONE CAPSULE BY MOUTH twice daily. - FLUoxetine (PROZAC) 40 mg capsule Take 1 capsule by mouth two times a day. - buPROPion XL (WELLBUTRIN XL) 300 mg 24 hr tablet Take 1 tablet by mouth once daily. - levothyroxine (SYNTHROID) 100 mcg tablet Take 1 tablet by mouth once daily. - melatonin 10 mg tab Take 1 tablet by mouth at bedtime as needed for insomnia. - Calcium Citrate 250 mg calcium tab Take 250 mg by mouth. - coffee xt/phosphatidyl serine (NEURIVA ORIGINAL ORAL) Take 2 tablets by mouth once daily. - APPLE CIDER VINEGAR ORAL Take 1 capsule by mouth once daily. Combined with the tumeric - lactose-reduced food (ADULT NUTRITIONAL SUPPLEMENT ORAL) (Discontinued) Take 1 capsule by mouth once daily. Tumeric - 2000mg capsule - MULTI-VITAMIN ORAL Take 1 tablet by mouth once daily. 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] 08/05/2010 HTN (hypertension) [I10] 12/05/2011 10/14/2014 Hyperlipidemia [E78.5] 08/04/2012 Hypothyroid [E03.9] 11/28/2012 Generalized postprandial abdominal pain [R10.84]09/01/2013 Diarrhea [R19.7] 09/01/2013 08/30/2020 IBS (irritable bowel syndrome) [K58.9] 09/01/2013 Moderate episode of recurrent major depressive *04/28/2014 Essential hypertension [I10] 10/14/2014 MARIBEL (obstructive sleep apnea) [G47.33] 09/17/2015 Cognitive decline [R41.89] 01/10/2016 Other symbolic dysfunction [R48.8] 04/22/2016 Actinic keratoses [L57.0] 07/30/2016 GERD without esophagitis [K21.9] 10/09/2016 Encounter for screening colonoscopy [Z12.11] 10/09/2016 08/30/2020 Pain of foot [M79.673] 11/27/2016 08/30/2020 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9] 11/27/2016 Hypertensive kidney disease with stage 3 chroni*04/13/2017 Contusion of leg, left, sequela [S80.12XS] 04/30/2017 08/30/2020 De Quervain's tenosynovitis, left [M65.4] 01/09/2018 Post-operative state [Z98.890] 05/26/2018 08/30/2020 Joint stiffness of hand, left [M25.642] 06/22/2018 Metacarpophalangeal joint pain of left hand [M2*07/20/2018 Finger pain, left [M79.645] 07/20/2018 Class 3 severe obesity with serious comorbidity*08/19/2018 08/30/2020 Asthma [J45.909] Stage 3 chronic kidney disease (HCC) [N18.30] 11/01/2018 Obesity [E66.9] 12/14/2018 08/30/2020 Obesity, Class II, BMI 35-39.9 [E66.812] 12/17/2018 08/30/2020 H/O gastric bypass [Z98.84] 12/23/2018 Closed displaced fracture of right femoral neck*11/17/2021 Hyponatremia [E87.1] 11/17/2021 Hip fracture requiring operative repair, right,*11/17/2021 Coronary artery disease [I25.10] 10/28/2017 05/12/2022 Type 2 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 (HCC) [E11.9] Renal lesion [N28.9] 01/15/2015 Osteoarthritis of right hip, unspecified osteoa*07/09/2022 07/09/2022 History of total hip replacement, right [Z96.64*08/27/2022 History of total knee replacement, left [Z96.65*08/27/2022 Coronary artery disease involving blackfeet manley*09/04/2022 UTI (urinary tr (more content not included)... Normal [facility] CNOVon 05-11-2024 CNOV Office Visit (ENWSTR ) MARY JANE DE PAZ ([id number]) 1950 F Date Time Provider Department 05/11/24 11:45 AM MARIMAR WILCOX ENWSTR During your visit today, we recorded the following information about you: Pulse Respiration Blood pressure Weight 73/minute 17/minute 158/92 59.9 kg Height 1.575 m Marimar Wilcox, PHOTOGRAPHIC INTELLIGENCE OFFICER.CD REACTOR OPERATOR 05/11/2024 11:53 AM Signed OFFICE VISIT PROGRESS NOTE CC Mary Jane De Paz is a 73 year old female who presents today for blood sugar review hypoglycemia problem HPI PATIENT OF DR. LOVE, ENDOCRINE Diagnosed with 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 type 2, ~ 2000 Last endocrine OV 08/26/2023 Some elements copied from my note 08/26/2023 which have been updated where appropriate, and all reflect current medical decision making from date of this visit. HPI 08/26/2023 Not seen for several years in ENDO Had moved residences HX of full RnY gastric bypass Patient closely monitors both her weight and her nutritional intake Has been following with her PCP for her DM2 since her move. Recently had 'horrible abdominal pain' I threw up all night' Did not go to the ER until the next day when her symptoms worsened Found to have bowel obstruction (secondary to internal hernias and mesenteric adhesion) with subsequent surgery (07/26/2023) discharged to home 07/28/2023 Developed UTI 08/05/2023. Treated with macrobid Had surgery follow up for Laparoscopic reduction and closure of internal hernia.// Laparoscopic lysis of adhesions on August 12, 2023 - is cleared for regular activity barring lifting anything heavier than 10 pounds for several more weeks. Here today for DM follow up Having blood sugar lows overnight and sometimes during the day Sugars have been as low as 54, patient feels shaky and weak when this happens Had been using FREESTYLE JAUN 3 Patient asst for GLP1 through [employer] Has cont w amaryl 1 mg in addt to the GLP1 Very seldom checks BG, as was using a freestyle HPI 05/11/2024 Having sensor issues with FL 3 system Had several replacements over the last year CURRENT DM MEDS TRULICITY 0.75 weekly injection CURRENT THYROID SYNTHROID 100 mcg daily SMBG Type of Monitor: Other Frequency of Monitorin times a day BG Values: Hypoglycemia: yes at night, at times during the day, can feel low less than 70 Diet: Low carbohydrate and small portion Exercise: walking//housework DM REVIEW OF SYSTEMS Last Eye Exam : 01/2024 - normal and new glasses Last Podiatry Exam: none Cardiorespiratory: negative, denies chest pain, pressure Claudication: no Dyslipidemia: Yes, controlled on medication High Blood Pressure: Yes, controlled on medication CURRENT LABS NONE available for review, most recent DEC 2023. Latest Ref Rng 01/15/2024 Glucose 74 - 99 mg/dL 81 BUN 7 - 21 mg/dL 13 Creatinine 0.58 - 0.96 mg/dL 1.13 (H) Sodium 136 - 144 mmol/L 139 Potassium 3.7 - 5.1 mmol/L 3.9 Chloride 98 - 107 mmol/L 102 CO2 22 - 30 mmol/L 26 Anion Gap 8 - 15 mmol/L 11 eGFR >=60 mL/min/1.73m? 52 (L) Total Cholesterol, Nonfasting <200 mg/dL 149 Triglycerides, Nonfasting <150 mg/dL 122 HDL Cholesterol, Nonfasting >39 mg/dL 61 LDL Cholesterol, Nonfasting <100 mg/dL 64 Non HDL Cholesterol, Nonfasting <130 mg/dL 88 VLDL Cholesterol, Nonfasting <30 mg/dL 24 Total Chol/HDL Ratio, Nonfasting <5.10 mg/dL 2.44 LDL/HDL Ratio, Nonfasting <2.54 mg/dL 1.05 Creatinine, Ur Random (UCRR) 20.0 - 300.0 mg/dL 144.6 Albumin, Urine Random mg/L 23.9 Albumin/Creat Ratio <30 mg/g 17 Hemoglobin A1C 4.3 - 5.6 % 6.2 (H) Estimated Average Glucose mg/dL 131 TSH 0.270 - 4.200 mIU/L 1.180 Latest Ref Rng 04/28/2023 07/28/2023 Glucose 74 - 99 mg/dL 116 (H) BUN 7 - 21 mg/dL 11 Creatinine 0.58 - 0.96 mg/dL 1.19 (H) Sodium 136 - 144 mmol/L 136 Potassium 3.7 - 5.1 mmol/L 4.8 Chloride 97 - 105 mmol/L 99 CO2 22 - 30 mmol/L 28 Anion Gap 9 - 18 mmol/L 9 Calcium 8.5 - 10.2 mg/dL 8.8 eGFR >=60 mL/min/1.73m? 49 (L) Hemoglobin A1C 4.3 - 5.6 % 5.6 Estimated Average Glucose mg/dL 114 TSH 0.270 - 4.200 mIU/L 0.595 Free T4 0.9 - 1.7 ng/dL 1.4 Latest Ref Rng 04/28/2023 07/07/2023 Protein, Total 6.3 - 8.0 g/dL 6.9 Albumin 3.9 - 4.9 g/dL 3.9 Calcium 8.5 - 10.2 mg/dL 9.6 9.3 Bilirubin, Total 0.2 - 1.3 mg/dL 0.2 Alkaline Phosphatase 34 - 123 U/L 93 AST 13 - 35 U/L 32 ALT 7 - 38 U/L 23 Glucose 74 - 99 mg/dL 93 112 (H) BUN 7 - 21 mg/dL 12 11 Creatinine 0.58 - 0.96 mg/dL 1.10 (H) 1.08 (H) Sodium 136 - 144 mmol/L 140 139 Potassium 3.7 - 5.1 mmol/L 4.0 3.9 Chloride 97 - 105 mmol/L 102 101 CO2 22 - 30 mmol/L 28 28 Anion Gap 9 - 18 mmol/L 10 10 eGFR >=60 mL/min/1.73m? 53 (L) 55 (L) Creatinine, Ur Random (UCRR) 20.0 - 300.0 mg/dL 69.8 Albumin, Urine Random mg/L 13.2 Albumin/Creat Ratio <30 mg/g 19 Hemoglobin A1C 4.3 - 5.6 % 5.6 Estimated Average Glucose mg/dL 114 TSH 0.270 - 4.200 mIU/L 0.59 (more content not included)... Normal [facility] CNOVon 04-14-2024 CNOV Office Visit (ORTHBR ) MARY JANE DE PAZ ([id number]) 1950 F CPRE Date Time Provider Department 04/14/24 1:00 PM JUAN JOSE KEYS During your visit today, we recorded the following information about you: Height 1.575 m Juan Jose Keys DO 04/14/2024 1:34 PM Signed CHIEF COMPLAINT: Patient presents with: Right Wrist - Wrist Pain PAIN EVALUATION 04/07/2024 1216 Pain Level: 7 Pain Location: Wrist-Right Description: Burning;Tenderness;Throbbing Duration Amount of Time: 15 Duration Units: Minutes Frequency: Continuous Intervention/Comfort measure: Splinting SUBJECTIVE: Mary Jane De Paz is a 74 year old female here for consideration of USG R ulnocarpal CSI, last had in 09/2023 with me. She has had now 3 injections into the ulnar aspect of her wrist - 2 landmark-guided, last one with me USG. Last injection lasted 5 months with complete pain resolution. Cannot have MRI due to spine stimulator. Has tried Tylenol, bracing, topical medications. Last Hgba1c: Hemoglobin A1C (%) Date Value 01/15/2024 6.2 04/28/2023 5.6 02/27/2021 6.6 10/19/2020 7.5 Past medical, surgical, social and family history were reviewed. Allergies and current medications reviewed. REVIEW OF SYSTEMS: GENERAL: no recent illness, unexplained weight loss or weight gain NEUROLOGIC: no numbness, tingling, or weakness except as mentioned in HPI, no known neuro problems or deficits SKIN: No rash or new skin changes and no chronic skin problems MSK: as mentioned in HPI PHYSICAL EXAMINATION: GENERAL APPEARANCE: Well appearing, in no acute distress, alert and oriented x3. R WRIST Swelling of the ulnar aspect of the right wrist TTP over the ulnocarpal joint, primarily at the TFCC No significant tenderness at the ECU, no subluxation Limited wrist extension, flexion, and ulnar movements 4+/5 strength in ulnar deviation + discomfort with TFCC testing IMAGING: Imaging has been recommended and ordered at today's visit. Imaging has not yet been performed. Patient will be contacted regarding imaging results. CLINICAL IMPRESSION: (M25.539) Pain of ulnar side of wrist (primary encounter diagnosis) Seen by Dr. Kerr and team previously, underwent 2 landmark-guided ulnocarpal injections without significant relief, last done by me with USG with 5 months of relief. + ulnar variance, pain over TFCC and ulnar fossa. PLAN: Today, in detail, through a thorough evaluation, we discussed possible etiologies of pain and plan for further diagnostic and therapeutic interventions. We discussed strategies for decreasing pain and improving strength, stability and motion. Specifically, we discussed symptom monitoring, activity modification, oral medications, topical medications, bracing, and surgical intervention as well as diagnostic/therapeutic ultrasound-guided injections. Patient's questions were answered in detailed. Patient verbalizes understanding and agrees with the treatment plan as discussed. Discussed limitations of repeat CSI in this area as we want to avoid tendon rupture. If pain recurs, names of 2 Hand Surgeons to review to see if any surgical intervention is warranted and/or would provide longer term relief of symptoms. Plan for repeat XR today upon completion of visit. In addition to the comprehensive evaluation as outlined above and as a separate element to the visit today, we have made the determination to proceed with an injection to aid in the treatment of the patient's condition. We discussed risks, benefits, alternatives and expected outcomes of this injection in detail and the patient agreed to proceed. The procedure was performed as detailed below. Medium Joint Arthro/Inj: R ulnocarpal Pain Evaluation: Pain Level: 7 Pain Location: Wrist-Right Description: Burning; Tenderness; Throbbing Duration Amount of Time: 15 Duration Units: Minutes Frequency: Continuous Intervention/Comfort measure: Splinting Informed Consent Consent Obtained: Verbal [place] Protocol A moment to CARE was completed. SIGN IN Personnel directly involved with the procedure wore the appropriate PPE. Patient/Surrogate Stated/Verified: Date of , Patient name, Relevant allergies and Intended procedure TIME OUT Relevant labs, photos, and/or imaging studies have been reviewed. Intended patient and procedure match the source document(s). Correct side/site marked and visible. Medications required for procedure verified.04/14/2024 1:33 PM The procedure site was prepped in the usual sterile fashion. Details:Musculoskeletal ultrasound was utilized to successfully localize placement of the injection needle at the appropriate site. Ultrasound images demonstrating local vasculature and demonstrating injection of solution were saved. Medications: 6 mg betamethasone acetate-bet (more content not included)... Normal [facility] [address] 04-14-2024 JOSEFINAN Telephone ([facility]) MARY JANE DE PAZ ([id number]) 1950 F Date Time Provider Department 04/14/24 RAFAEL TRAYLOR [facility] During your visit today, we recorded the following information about you: Rafael Traylor LSW 04/14/2024 2:08 PM Addendum Endocrinology AND Metabolism Social Work Progress Note Provider Action / FYI N/A Mary Jane De Paz [id number] Type of Contact: telephone Endocrine ELEVATOR TENDER Referral Reason: Medication Cost Concerns Contact Made?: YES- Patient could not talk at this moment, unable to verify information.Will follow up and attempt to reach patient. Note/Intervention: ELEVATOR TENDER called patient 20 minutes after initial phone call per patient request, left VM. Original referral placed for [employer], patient believes she is getting them for free from a company, she knows at one point it was [employer], however they were charging her. Previous OV states they were sent to pharmacy. Once pt calls back ELEVATOR TENDER will attempt to get more information. ELEVATOR TENDER did call [facility] and DME company to see if they were servicing the patient. [facility] has a contract with [facility] Medicare through their diabetes management program for CGMs to be covered at 100%. ELEVATOR TENDER called them and they have not serviced this patient since 2022. ELEVATOR TENDER also contacted [employer] who reports patient is not received CGMs through them. [facility] referral placed: n/a Signature: DUC Tomlinson Patient Name: Mary Jane De Paz Date: 04/14/2024 Time: 1:46 PM Pager/Contact #: [phone] During this patient contact I spent approximately 20 minutes in reviewing the patient's chart and counseling regarding community resources and coordinating care. Baljinder Solis RN 04/14/2024 3:38 PM Signed Rxs Freestyle Janu 3 reader and sensors pended to [employer] and sent to Marimar Wilcox CNP. Please review pended Rxs before sending to [facility]. Baljinder Solis RN April 14, 2024 3:38 PM Baljinder Solis RN 04/14/2024 3:38 PM Signed Addended by: BALJINDER SOLIS on: 04/14/2024 03:38 PM Modules accepted: Orders Marimar Wilcox C, PHOTOGRAPHIC INTELLIGENCE OFFICER.CD REACTOR OPERATOR 04/14/2024 5:24 PM Signed Patient's request for medication is as follows Requested Prescriptions Signed Prescriptions Disp Refills Blood-Glucose Meter,Continuous (FREESTYLE JAUN 3 READER) misc 1 Each 0 Sig: Dispense one reader kit. E11.9 Authorizing Provider: MARIMAR WILCOX Blood-Glucose Sensor (FREESTYLE JAUN 3 SENSOR) guido 2 Each 3 Si Each every 2 weeks. CHANGE sensor every 14 days. USE FOR CONTINUOUS GLUCOSE MONITORING. Dx: E11.9 RISK FOR HYPOGLYCEMIA. Authorizing Provider: MARIMAR WILCOX Order entered - please phone pharmacy and notify patient. OLVIN Fernando Dianne C, APRN.CNP 04/14/2024 5:24 PM Signed Addended by: MARIMAR WILCOX on: 04/14/2024 05:24 PM Modules accepted: Sera Barreto MA 04/21/2024 10:13 AM Addendum [facility] is requesting OV notes and DWO. Will send notes from 08/2023. Patient does not have a future appointment scheduled. Order may not be fulfilled. Faxed electronically signed notes and completed DWO and received confirmation. Filed in drawer. LYNDON Rajan Andrew 04/22/2024 12:38 PM Signed [facility] calling stating they received only 1 page of the DWO and is missing the rest of the fax. Please advise and refax when able to fax to Lima Mckee RN 04/22/2024 1:02 PM Signed [facility]ax[facility] DWO [facility] was only one page received. All above faxed previously (see note from yesterday). Allergies As of Date: 04/14/2024 Noted Allergy Reaction VICODIN (HYDROCODONE-ACETAMINOPHE*07/0 11/2009 9 - Itching Comments: Pt not sure if she has an allergy but states she wants it documented. Date Reviewed: 04/14/2024 Reviewed by: Juan Jose Keys DO - Fully Assessed Reason for Visit: Orders [681] Cmt: [facility]/Jaun Patient Update [1234] Order(s):Blood-Glucose Meter,Continuous (FREESTYLE JAUN 3 READER) miscDispense one reader kit. E11.9Disp: 1 EachRfl: 0 Blood-Glucose Sensor (FREESTYLE JAUN 3 SENSOR) devi1 Each every 2 weeks. CHANGE sensor every 14 days. USE FOR CONTINUOUS GLUCOSE MONITORING. Dx: E11.9 RISK FOR HYPOGLYCEMIA.Disp: 2 EachRfl: 3 Prescriptions as of 04/22/2024 - famotidine (PEPCID) 20 mg tablet Take 1 tablet by mouth two times a day as needed (GERD). - lisinopril (ZESTRIL) 20 mg tablet Take 1 tablet by mouth once daily. - Blood-Glucose Meter,Continuous (FREESTYLE JAUN 3 READER) misc Dispense one reader kit. E11.9 - Blood-Glucose Sensor (FREESTYLE JAUN 3 SENSOR) guido 1 Each every 2 weeks. CHANGE sensor every 14 days. USE FOR CONTINUOUS GLUCOSE MONITORING. Dx: E11.9 RISK FOR HYPOGLYCEMIA. - atorvastatin (LIPITOR) 20 mg tablet Take 1 tablet by mouth daily at bedtime. For cholesterol. - traZODone (DESY (more content not included)... Normal [facility] Medium Joint Arthro/Inj: R u lnocarpalon 04-14-2024 Juan Jose Keys DO 04/14/2024 1:34 PM Medium Joint Arthro/Inj: R ulnocarpal Pain Evaluation: Pain Level: 7 Pain Location: Wrist-Right Description: Burning; Tenderness; Throbbing Duration Amount of Time: 15 Duration Units: Minutes Frequency: Continuous Intervention/Comfort measure: Splinting Informed Consent Consent Obtained: Verbal [place] Protocol A moment to CARE was completed. SIGN IN Personnel directly involved with the procedure wore the appropriate PPE. Patient/Surrogate Stated/Verified: Date of , Patient name, Relevant allergies and Intended procedure TIME OUT Relevant labs, photos, and/or imaging studies have been reviewed. Intended patient and procedure match the source document(s). Correct side/site marked and visible. Medications required for procedure verified.04/14/2024 1:33 PM The procedure site was prepped in the usual sterile fashion. Details:Musculoskeletal ultrasound was utilized to successfully localize placement of the injection needle at the appropriate site. Ultrasound images demonstrating local vasculature and demonstrating injection of solution were saved. Medications: 6 mg betamethasone acetate-betamethasone sodium phosphate 6 mg/mL Anesthetics: 0.5 mL lidocaine (PF) 10 mg/mL (1 %) Outcome: tolerated well, no immediate complications Post-injection instructions were reviewed with the patient and the patient voiced understanding of these instructions. SIGN OUT Post-procedure follow-up management communicated and Plan of Care Visit completed when applicable [facility] US WRIST-INJECTION RT (POC) TY USE ONLYon 04-14-2024 [facility] CNOVon 03-29-2024 CNOV Office Visit (ORMDNA ) MARY JANE DE PAZ ([id number]) 1950 F CPRE Date Time Provider Department 03/29/24 11:00 AM DELFIN KERR During your visit today, we recorded the following information about you: Delfin Kerr MD 04/06/2024 8:05 PM Signed Delfin Kerr MD Department of Orthopaedics Orthopaedics [address] [place] [id number] Dept: [phone] March 29, 2024 CHIEF COMPLAINT: Established Patient and Pain of the Right Shoulder HPI Patient here today for right shoulder pain x 6 months. States that she fell recently and landed on the right shoulder, but was having pain before the fall happened. She is right hand dominant. ASSESSMENT: M25.819 Shoulder impingement (primary encounter diagnosis) M25.511, G89.29 Chronic right shoulder pain PLAN: She would like to try a cortisone injection. Will continue to monitor patient for Shoulder impingement (primary encounter diagnosis) Chronic right shoulder pain, patient to schedule visit as per follow up discussed. OBJECTIVE: Ms. Mary Jane De Paz is a pleasant 74 year old in no apparent distress. Gen:There were no vitals taken for this visit. nl development, non obese, no deformities ENT: Normocephalic, normal hearing, moist mucosa CV: Pulses:Radial= 2+ and symmetric, capillary refill < 2 secs, no peripheral edema/varicosities Skin: no rash, bruising or lesions. Good turgor. Psych: cooperative and appropriate, alert and oriented x 3, good mood and affect. Musculoskeletal: Supple range of motion of the cervical spine without pain. Spurling signs are negative. No atrophy of the deltoid and shoulder musculature. Right shoulder is nontender to palpation over the SC joint, clavicle and AC joint. no tenderness to palpation over the posterior shoulder, positive tenderness over the anterior lateral corner of the shoulder and greater tuberosity. Non-tender at the bicipital groove and coracoid. Active range of motion is 150 of forward elevation, 60 external rotation, and internal rotation to the lumbar spine. Passive range of motion is symmetrical,, respectively. No laxity with anterior and posterior stress. positive Neer and Mullins impingement signs. 4+/5 strength with supraspinatus, infraspinatus and subscapularis. Sensation is intact in the axillary, radial, median and ulnar nerve distribution Large Joint Arthro/Inj: R subacromial bursa Informed Consent Consent Obtained: Verbal [place] Protocol A moment to CARE was completed. SIGN IN Sign in communication not applicable due to emergent procedure. Personnel directly involved with the procedure wore the appropriate PPE. Special Equipment: N/A Patient/Surrogate Stated/Verified: Patient name, Date of , Relevant allergies and Intended procedure TIME OUT Relevant labs, photos, and/or imaging studies have been reviewed. Intended patient and procedure match the source document(s). Consent documented and matches the intended procedure. Correct side/site marked and visible. Medications required for procedure verified. No fire risk assessment and interventions applicable. No implant(s) inserted.03/29/2024 11:34 AM The procedure site was prepped in the usual sterile fashion. Site: R subacromial bursa Medications: 6 mg betamethasone acetate-betamethasone sodium phosphate 6 mg/mL Anesthetics: 5 mL lidocaine (PF) 10 mg/mL (1 %) Outcome: Tolerated well, no immediate complications Post-injection instructions were reviewed with the patient and the patient voiced understanding of these instructions. SIGN OUT No specimen collected. No instruments, equipment or retained foreign bodies applicable. Post-procedure follow-up management communicated and Plan of Care Visit completed when applicable Imaging: Impression IMPRESSION: Findings as discussed in results portion of report Senior Laboratory Technician: SEFERINO Transcribe Date/Time: Mar 29 2024 4:16P Dictated by : DESHAUN WHITAKER DO This examination was interpreted and the report reviewed and electronically signed by: DESHAUN WHITAKER DO on Mar 29 2024 4:17PM EST Results-Findings * * *Final Report* * * DATE OF EXAM: Mar 29 2024 11:08AM FINA 5253 - XR SHLDR >/=3V AP/REGINA AP/OTHR RT / PROCEDURE REASON: M25.511-Right shoulder pain, unspecified chronicity * * * * Physician Interpretation * * * * EXAM(s): XR SHLDR >/=3V AP/REGINA AP/OTHR RT..... HISTORY: 74 years old Clinical information: Right shoulder pain, unspecified chronicity Patient states that she has been having right side shoulder pain for some time. TECHNIQUE: Images: XR SHLDR >/=3V AP/REGINA AP/OTHR RT Comparison: None. RESULT: Moderate bony demineralization. Moderate degenerative changes in the spine Findings: Moderate narrowing of the glenohumeral joint. AC joint is unremarkable. Acromiohumeral interval is pres (more content not included)... Normal [facility] Large Joint Arthro/Inj: R cevallos bacromial bursaon 03-29-2024 Delfin Kerr MD 04/06/2024 8:05 PM Large Joint Arthro/Inj: R subacromial bursa Informed Consent Consent Obtained: Verbal [place] Protocol A moment to CARE was completed. SIGN IN Sign in communication not applicable due to emergent procedure. Personnel directly involved with the procedure wore the appropriate PPE. Special Equipment: N/A Patient/Surrogate Stated/Verified: Patient name, Date of , Relevant allergies and Intended procedure TIME OUT Relevant labs, photos, and/or imaging studies have been reviewed. Intended patient and procedure match the source document(s). Consent documented and matches the intended procedure. Correct side/site marked and visible. Medications required for procedure verified. No fire risk assessment and interventions applicable. No implant(s) inserted.03/29/2024 11:34 AM The procedure site was prepped in the usual sterile fashion. Site: R subacromial bursa Medications: 6 mg betamethasone acetate-betamethasone sodium phosphate 6 mg/mL Anesthetics: 5 mL lidocaine (PF) 10 mg/mL (1 %) Outcome: Tolerated well, no immediate complications Post-injection instructions were reviewed with the patient and the patient voiced understanding of these instructions. SIGN OUT No specimen collected. No instruments, equipment or retained foreign bodies applicable. Post-procedure follow-up management communicated and Plan of Care Visit completed when applicable [facility] XR SHLDR >/=3V AP/REGINA AP/OTH R RTon 03-29-2024 XR SHLDR >/=3V AP/REGINA AP/OTHR RT * * *Final Report* * * DATE OF EXAM: Mar 29 2024 11:08AM FINA 5253 - XR SHLDR >/=3V AP/REGINA AP/OTHR RT / PROCEDURE REASON: M25.511-Right shoulder pain, unspecified chronicity * * * * Physician Interpretation * * * * EXAM(s): XR SHLDR >/=3V AP/REGINA AP/OTHR RT..... HISTORY: 74 years old Clinical information: Right shoulder pain, unspecified chronicity Patient states that she has been having right side shoulder pain for some time. TECHNIQUE: Images: XR SHLDR >/=3V AP/REGINA AP/OTHR RT Comparison: None. RESULT: Moderate bony demineralization. Moderate degenerative changes in the spine Findings: Moderate narrowing of the glenohumeral joint. AC joint is unremarkable. Acromiohumeral interval is preserved. No fractures or dislocations are seen. IMPRESSION: Findings as discussed in results portion of report Senior Laboratory Technician: SEFERINO Transcribe Date/Time: Mar 29 2024 4:16P Dictated by : EDSHAUN WHITAKER DO This examination was interpreted and the report reviewed and electronically signed by: DESHAUN WHITAKER DO on Mar 29 2024 4:17PM EST [id number] [facility] XR Shoulder - right 3 Viewso n 03-29-2024 IMPRESSION: Findings as discussed in results portion of report Senior Laboratory Technician: PSCB Transcribe Date/Time: Mar 29 2024 4:16P Dictated by : DESHAUN WHITAKER DO This examination was interpreted and the report reviewed and electronically signed by: DESHAUN WHITAKER DO on Mar 29 2024 4:17PM [facility] * * *Final Report* * * DATE OF EXAM: Mar 29 2024 11:08AM FINA 5253 - XR SHLDR >/=3V AP/REGINA AP/OTHR RT / PROCEDURE REASON: M25.511-Right shoulder pain, unspecified chronicity * * * * Physician Interpretation * * * * EXAM(s): XR SHLDR >/=3V AP/REGINA AP/OTHR RT..... HISTORY: 74 years old Clinical information: Right shoulder pain, unspecified chronicity Patient states that she has been having right side shoulder pain for some time. TECHNIQUE: Images: XR SHLDR >/=3V AP/REGINA AP/OTHR RT Comparison: None. RESULT: Moderate bony demineralization. Moderate degenerative changes in the spine Findings: Moderate narrowing of the glenohumeral joint. AC joint is unremarkable. Acromiohumeral interval is preserved. No fractures or dislocations are seen. [facility] Provider, [facility] - 03/29/2024 * * *Final Report* * * DATE OF EXAM: Mar 29 2024 11:08AM FINA 5253 - XR SHLDR >/=3V AP/REGINA AP/OTHR RT / PROCEDURE REASON: M25.511-Right shoulder pain, unspecified chronicity * * * * Physician Interpretation * * * * EXAM(s): XR SHLDR >/=3V AP/REGINA AP/OTHR RT..... HISTORY: 74 years old Clinical information: Right shoulder pain, unspecified chronicity Patient states that she has been having right side shoulder pain for some time. TECHNIQUE: Images: XR SHLDR >/=3V AP/REGINA AP/OTHR RT Comparison: None. RESULT: Moderate bony demineralization. Moderate degenerative changes in the spine Findings: Moderate narrowing of the glenohumeral joint. AC joint is unremarkable. Acromiohumeral interval is preserved. No fractures or dislocations are seen. IMPRESSION IMPRESSION: Findings as discussed in results portion of report Senior Laboratory Technician: SEFERINO Transcribe Date/Time: Mar 29 2024 4:16P Dictated by : DESHAUN WHITAKER DO This examination was interpreted and the report reviewed and electronically signed by: DESHAUN WHITAKER DO on Mar 29 2024 4:17PM EST [facility] Study observation (narrative) [facility] XR Shoulder - right 3 ViewsO rdered By: [facility] Provider on 03-29-2024 [facility] [id number] 03-21-2024 [id number] HNO ID: [id number] Author: AFSANEH MAHAN PT Service: ? Author Type: Physical Therapist Type: [id number] Filed: 03/21/2024 14:45 Note Text: [facility] Physical Therapy Plan of Care Certification Patient Name: Mary Jane De Paz : 1950 [facility] #: [id number] Date: 03/21/2024 To: Christine Morgan APRN.C* From Therapist: Afsaneh Mahan PT RE: Patient Certification/ Recertification Your review, approval and electronic signature are required in order to comply with Payor: AET MEDICARE / Plan: [employer]ET[employer] MEDICARE HMO / Product Type: HMO / regulations. The identified Physical Therapy PLAN OF CARE for the patient is as follows: R29.6 Falls (primary encounter diagnosis) PLAN OF CARE: Assessment: Mary Jane De Paz presents with diagnosis of falls that interferes with stair negotiation . The patient presents with impairments in ADL's, balance, overall function, and patient reported outcome measures. PROMIS? (Patient-Reported Outcomes Measurement Information System) scores were reviewed and identified as a rehabilitation concern. Prognosis for therapy is Good due to: good support system/ coping skills, within-session changes, positive past response to therapy, acuteness of condition, good overall health status, current objective clinical presentation . The patient will benefit from skilled therapy services to meet the goals established for this plan of care as noted below. Assessment Fall Risk : Complex at risk Goals for Episode of Care: established 03/21/24 Patient will report no falls. Improve score on Timed Up and Go Test to 7 seconds to reflect decreased fall risk. Improve score on 30 Second Chair Stand to 13 repetitions to reflect decreased fall risk. Patient will demonstrate independent and proper use of assisstive device to allow for improved walking quality and safety therefore reducing the risk of falls. Patient Goals: reduce fall risk Time Frame for Goals and Treatment : 05/02/24 Planned Interventions, Frequency, and Duration: Current Frequency: 1x/week Duration: 6 weeks Total Number of Visits Planned: 6 Planned Treatment Interventions: Therapeutic exercise (80738), Self-intermediate management (75603) PLAN FOR NEXT VISIT: FGA Patient demonstrates good understanding of plan of care and treatment. The above goals and plan of care were discussed and agreed upon by patient/family. For further details regarding this patient refer to the Physical Therapy electronically documented visit dated 03/21/2024. Provider Attestation I have reviewed the treatment plan for Mary Jane De Paz, [facility]# [id number] for the period of 03/21/24 -- 05/02/24, established on 03/21/2024. Signature certifies the need for therapy services. [facility] CNTHERAPYon 03-21-2024 CNTHERAPY OT/PT/Speech Visit ( PTWS) MARY JANE DE PAZ ([id number]) 1950 Izabela BARR Date Time Provider Department 03/21/24 2:00 PM AFSANEH MAHAN PTPALMIRA Date Time Provider Department Center 03/21/2024 2:00 PM [id number]-LAFSANEH MAHAN PTPALMIRA Solomon Reason for Visit: PT Eval [747] Primary Visit Diagnosis:Falls [R29.6] Allergies As of Date: 03/21/2024 Noted Allergy Reaction VICODIN (HYDROCODONE-ACETAMINOPHE*07/0 11/2009 9 - Itching Comments: Pt not sure if she has an allergy but states she wants it documented. Date Reviewed: 12/28/2023 Reviewed by: Sonam Arana, RT(R) - Fully Assessed Prescriptions as of 03/21/2024 - atorvastatin (LIPITOR) 20 mg tablet Take 1 tablet by mouth daily at bedtime. For cholesterol. - traZODone (DESYREL) 100 mg tablet Take 2 tablets by mouth daily at bedtime. - esomeprazole (NEXIUM) 40 mg capsule TAKE ONE CAPSULE BY MOUTH twice daily. - FLUoxetine (PROZAC) 40 mg capsule Take 1 capsule by mouth two times a day. - dulaglutide (TRULICITY) 0.75 mg/0.5 mL pen injector Inject 0.75 mg subcutaneously one time a week. E11.9. - buPROPion XL (WELLBUTRIN XL) 300 mg 24 hr tablet Take 1 tablet by mouth once daily. - levothyroxine (SYNTHROID) 100 mcg tablet Take 1 tablet by mouth once daily. - famotidine (PEPCID) 20 mg tablet Take 1 tablet by mouth two times a day as needed (GERD). - lisinopril (ZESTRIL) 20 mg tablet Take 1 tablet by mouth once daily. - Blood-Glucose Meter,Continuous (FREESTYLE JAUN 3 READER) [facility] Dispense one reader kit. E11.9 - Blood-Glucose Sensor (FREESTYLE JAUN 3 SENSOR) guido CHANGE sensor every 14 days. USE FOR CONTINUOUS GLUCOSE MONITORING. E11.9 RISK FOR HYPOGLYCEMIA. - Lancets Test blood sugar(s) 1 times daily and prn symptoms. Dx: Type 2 DM - Controlled E11.9 Insulin: No - melatonin 10 mg tab Take 1 tablet by mouth at bedtime as needed for insomnia. - Calcium Citrate 250 mg calcium tab Take 250 mg by mouth. - ondansetron (ZOFRAN) 8 mg tablet Take 1 tablet by mouth every 8 hours as needed for nausea/vomiting. - coffee xt/phosphatidyl serine (NEURIVA ORIGINAL ORAL) Take 2 tablets by mouth once daily. - APPLE CIDER VINEGAR ORAL Take 1 capsule by mouth once daily. Combined with the tumeric - lactose-reduced food (ADULT NUTRITIONAL SUPPLEMENT ORAL) (Discontinued) Take 1 capsule by mouth once daily. Tumeric - 2000mg capsule - MULTI-VITAMIN ORAL Take 1 tablet by mouth once daily. Takes bariatric multivitamin daily Meds Comments as of 11/22/2021: Severe Interaction - Trazadone and Prozac [facility] CNOVon 02-03-2024 CNOV Office Visit (ORMDNA ) MARY JANE DE PAZ ([id number]) 1950 F CPRE Date Time Provider Department 02/03/24 1:15 PM CURTIS FERGUSON During your visit today, we recorded the following information about you: Curtis Ferguson MD 03/01/2024 10:00 PM Signed DEPARTMENT OF ORTHOPAEDICS HISTORY OF PRESENT ILLNESS: This is a pleasant 73 year old female, who presents today with a chief complaint of right foot pain. She complains of sharp and aching pain about the lateral aspect of approximately 6 weeks duration. This pain is constant. She reports trauma. She complains that the pain is varies in intensity depending on activity. She denies nocturnal pain. The pain is exacerbated by walking and prolonged standing. Previous treatments have included immobilization, ice, elevation she denies distal radiation. She denies numbness, tingling, or electric shocks. She denies popping, clicking, catching, locking, grinding, instability, buckling, or giving way. The patient's walking tolerance is moderate before resting. She reports swelling and/or warmth. PAST MEDICAL HISTORY Diagnosis Date Allergic rhinitis Arthritis [facility] orthopedics, knee Asthma CKD (chronic kidney disease) 11/01/2018 Class 3 severe obesity with serious comorbidity and body mass index (BMI) of 40.0 to 44.9 in adult ([facility]) 08/19/2018 Coronary artery disease 10/28/[address] Salazar Fracture of right hip ([facility]) GERD (gastroesophageal reflux disease) History of transfusion HTN (hypertension) Hypothyroidism Mixed hyperlipidemia NIDDM (non-insulin dependent 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) MARIBEL on CPAP CPAP 9Cm Osteoarthritis of hip Renal lesion 01/15/2015 Suggest renal US every 1-2 years per PCP or nephro. Snoring Type 2 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 with hyperglycemia, with long-term current use of insulin ([facility]) 1999 PAST SURGICAL HISTORY Procedure Laterality Date ABDOMINAL SURGERY HX COLONOSCOPY 11/05/2016 Tammi- divertiuclosis, internal hemorrhoids, repeat in 5 years COLONOSCOPY 04/02/2022 repeat in 5 years due to reported prior history of polyps COSMETIC ASSESSMENT EGD 11/05/2016 Tammi- gastritis EGD 09/08/2018 /Gastritis EGD 04/02/2020 EGD 04/02/2022 EYE SURGERY HX Bilateral cataract extraction 2009' GASTRECTOMY,PART DISTAL;W/GASTRODUODENOSTO GASTRIC BYPASS HX 12/13/2018 Laparoscopic Samina-en-Y gastric bypass HIP SURGERY HX Screws replaced JOINT REPLACEMENT HX LAPAROSCOPY DIAGNOSTIC 07/26/2023 internal hernias and mesenteric adhesion OOPHORECTOMY PARTIAL OR TOTAL PAST SURGICAL HISTORY OF 2009 hemmroidectomy/sphincterectomy - Dr Nichole PAST SURGICAL HISTORY OF 2008 total left knee replacement PAST SURGICAL HISTORY OF 2003 partial right knee replacement PAST SURGICAL HISTORY OF 1990 total hysterectomy PAST SURGICAL HISTORY OF 2010 lDr Mansoor - [place] elbow fracture - traumatic. radial head replacement PAST SURGICAL HISTORY OF Bilateral 2016 hand surgery PAST SURGICAL HISTORY OF Left RELEASE CONTRACTURE DEQUERVAINS S INSERT PINN METAL NTRL HIP Right 11/17/2021 SKIN BIOPSY HX TOTAL HIP REPLACEMENT Right TOTAL KNEE REPLACEMENT Right 09/15/2022 TUBAL LIGATION HX VAGINAL HYSTERECTOMY 1979' Current Outpatient Medications Medication Sig Dispense Refill FLUoxetine (PROZAC) 40 mg capsule Take 1 capsule by mouth two times a day. 180 capsule 1 dulaglutide (TRULICITY) 0.75 mg/0.5 mL pen injector Inject 0.75 mg subcutaneously one time a week. E11.9. 12 Each 3 buPROPion XL (WELLBUTRIN XL) 300 mg 24 hr tablet Take 1 tablet by mouth once daily. 90 tablet 1 esomeprazole (NEXIUM) 40 mg capsule TAKE ONE CAPSULE BY MOUTH twice daily. 180 capsule 1 traZODone (DESYREL) 100 mg tablet Take 2 tablets by mouth daily at bedtime. 180 tablet 1 levothyroxine (SYNTHROID) 100 mcg tablet Take 1 tablet by mouth once daily. 90 tablet 3 atorvastatin (LIPITOR) 20 mg tablet Take 1 tablet by mouth daily at bedtime. For cholesterol. 90 tablet 1 famotidine (PEPCID) 20 mg tablet Take 1 tablet by mouth two times a day as needed (GERD). 180 tablet 1 lisinopril (ZESTRIL) 20 mg tablet Take 1 tablet by mouth once daily. 90 tablet 1 Blood-Glucose Meter,Continuous (FREESTYLE JAUN 3 READER) [facility] Dispense one reader kit. E11.9 1 Each 0 Blood-Glucose Sensor (FREESTYLE JAUN 3 SENSOR) guido CHANGE sensor every 14 days. USE FOR CONTINUOUS GLUCOSE MONITORING. E11.9 RISK FOR HYPOGLYCEMIA. 6 Each 3 Lancets Test blood sugar(s) 1 times daily and prn symptoms. Dx: Type 2 DM - Controlled E11.9 Insulin: No 100 Each 11 melatonin 10 mg tab Take 1 tablet by mouth at bedtime as needed for insomnia. Calcium Citrate 250 mg calcium tab Take 250 mg by mouth. ondansetron (ZOFRAN) 8 mg tablet Take 1 tablet by mouth every 8 hours as needed for nausea/vomiting. 20 tablet 1 coffee xt/cisco (more content not included)... [facility] XR FOOT 3V AP/LAT/OBL RTon 1 04-04-2023 XR FOOT 3V AP/LAT/OBL RT * * *Final Report* * * DATE OF EXAM: Feb 03 2024 1:18PM FINA 5337 - XR FOOT 3V AP/LAT/OBL RT / PROCEDURE REASON: Q25-Pfbp * * * * Physician Interpretation * * * * PROCEDURE: Right foot INDICATION: Pain .right foot pain TECHNIQUE: XR FOOT 3V AP/LAT/OBL RT COMPARISON: Right 5th toe 09/12/2023 FINDINGS: There is a nondisplaced transverse fracture of the base of the 5th metatarsal. There appears to be some healing suggesting a subacute fracture. There is diffuse bone demineralization. Mild midfoot osteoarthrosis. IMPRESSION: Subacute-appearing 5th metatarsal base fracture Senior Laboratory Technician: SEFERINO Transcribe Date/Time: Feb 07 2024 7:55A Dictated by : ASPEN PERALES MD This examination was interpreted and the report reviewed and electronically signed by: ASPEN PERALES MD on Feb 07 2024 7:57AM EST [id number] [facility] Emergency Department Summary on 12-14-2023 Emergency Department Summary [facility] Medical Records Department [address] [place] [address] Emergency Department Summary 12/14/23 MR#: [id number] Acct: [id number] Name: MARY JANE DE PAZ Rep #: [id number] : 1950 73 From: Benny Carr MD PCP: CHAD Gabriel Status:REG ER Location: ED HPI History of Present Illness Chief Complaint: Lower Extremity Injury Narrative Narrative: 73-year-old female seen in the emergency department yesterday, diagnosed with foot fracture status post fall presents with worsening foot pain. She states that she was diagnosed with a fracture of her fifth metatarsal, and of her fifth toe. She has been unable to bear weight on it. She thought she had a walking boot at home, but does not have any. Additionally, she has a walker, but has not been able to use it very well. She presents with worsening foot pain and bilateral rib pain. This was from a fall on both Thursday, and Thursday, 2 and 3 days ago. She states she has been unable to follow-up with podiatry or orthopedics, and states that she tried to arrange for orthopedics follow- up through the [facility], but was unable to until December. [facility] Medical History Diabetes type 2, controlled Depression Hypothyroid HTN (hypertension) MARIBEL (obstructive sleep apnea) Home Medications ???Medication ???Instructions ???Recorded ???Last Taken ???Type ondansetron 4 mg disintegrating 4 mg PO Q6H PRN nausea and 12/13/23 Unknown Rx tablet vomiting #14 tabs oxycodone-acetaminophen 5 mg-325 1 tab PO Q6H PRN pain 3 days #12 12/13/23 Unknown Rx mg tablet tabs Allergy/AdvReac Type Severity Reaction Status Date / Time No Known Allergies Allergy Verified 12/14/23 14:35 Social History Smoking Status: Never smoker ROS ROS ED ROS Narrative Constitutional: No fever, no chills. HEENT: No sore throat. No neck pain. No loss of vision. No rhinorrhea. Cardiovascular: Bilateral rib pain/chest pain. No palpitations. Right pedal edema. Respiratory: No cough, no shortness of breath. Abdominal: No abdominal pain. No nausea. No vomiting. Genitourinary: No dysuria. No hematuria. Musculoskeletal: No myalgias. Positive right foot pain. Unable to bear weight. Neurologic: No headaches. No dizziness. No lightheadedness. Skin: No rash. No change in color. Psychiatric: No depression. No anxiety. EXAM Physical Exam Narrative Exam Narrative: GCS 15. ABCs intact. Focused physical examination demonstrates regular rate and rhythm with no sternal tenderness or crepitance. Lungs are clear to auscultation bilaterally. Abdomen soft nontender with normoactive bowel sounds. Mild swelling right foot. No malleoli tenderness. Const Vital Signs: 12/14/23 14:35 Temperature 96.4 F L Temperature Source Temporal Pulse Rate 95 Respiratory Rate 18 Blood Pressure 110/80 Blood Pressure Mean 90 Pulse Ox 100 Oxygen Delivery Method Room Air MDM MDM MDM Narrative Medical decision making narrative: I reviewed the patient's prior ED visit and imaging. She does have nondisplaced fractures of both the base of the fifth metatarsal, and of the proximal phalanx of the fifth digit on her right foot. I did discuss with her dedicated rib x-rays bilaterally, but she had a chest x-ray yesterday which showed no evidence of pneumothorax or displaced rib fracture. Additionally, EKG was performed yesterday, and I have low concern for cardiac contusion. Patient states that her walker is not helpful, but I am hesitant to give her crutches given her fall risk. I will discuss patient with Dr. Calloway with podiatry to arrange follow-up and see if she should be placed in either a walking boot, postoperative shoe, or Ortho-Glass splint. In discussion with podiatry, patient will be placed in a boot arthrosis. She will be made nonweightbearing on her right foot. He agrees that she should continue use of her walker instead of crutches. She will continue ice and elevation at home. She was told that further narcotic pain medication should come from her primary care provider as she has been written for a few tablets/3 days and was last seen yesterday. I feel she can be discharged safely home with follow-up. Return instructions were reviewed. Disposition is discharged home in stable condition. History Record Review Discussion w/independent historian: Patient Additional record(s) reviewed:: Prior ED visit Management Discussion w/another healthcare provider: Contract Engineer (Dr. Calloway) Discharge Plan Triage Chief Complaint: Lower Extremity Injury ED Provider: Benny Carr Dx/Rx/DC Orders Clinical Impression: Foot fracture, Rib pain on right side Instructions: ED Chest Wall Contusion, ED Fract (more content not included)... Normal [facility] 12 Lead EKGon 12-13-2023 12 Lead EKG [facility] Cardiovascular Services [address] [place] [address] 12 Lead EKG 12/13/23 1338 MR#: [id number] Acct: [id number] Name: MARY JANE DE PAZ Renny Rep #: [id number] : 1950 73 From: Wade Hankins MD Attending Dr: Status: DEP ER Ordering Dr: Sotero Lowe DO Date: 12/13/23 Location: ED Sex: F C Admitted: Test Reason : FALL Blood Pressure : / mmHG Vent. Rate : 067 BPM Atrial Rate : 067 BPM P-R Int : 190 ms QRS Dur : 096 ms QT Int : 432 ms P-R-T Axes : 041 004 025 degrees QTc Int : 456 ms Normal sinus rhythm Left ventricular hypertrophy with repolarization abnormality ( Ackworth product ) Abnormal ECG Confirmed by Wade Hankins ([id number]), editor greeting card MASON FRYE ([id number]) on 12/15/2023 9:28:32 AM Referred By: Confirmed By:Wade Hankins 12/15/23927 Date Wade Hankins MD CC: ALLERGIST IMMUNOLOGIST-C Christine Morgan; Dr. Sotero Lowe DO Signed [facility] Chest PA and Lateralon 12-12 Chest PA and Lateral [facility] Imaging Services [address] [place] [address] Chest PA and Lateral MR#: [id number] Acct: [id number] Name: TOI DE PAZMARGIE Lawson Rep #: [id number] : 1950 F 73 From: Maya jo MD PCP: CHAD Gabriel Status: PRE ER Study: Chest PA and Lateral Date of Exam: 12/13/23 Exam# [id number] Ordering Dr: Sotero Lowe DO -[id number] HISTORY: pain fall. TECHNIQUE: XR Chest 2 Views. COMPARISON: None. FINDINGS: CARDIOMEDIASTINAL BORDERS: Cardiac silhouette within normal limits in size. Mediastinal contour unremarkable with calcification of the aortic knob. LUNGS: Minimal linear atelectasis or scarring in the lung bases. PLEURA: No pleural effusion or pneumothorax seen. OTHER: Mild degenerative changes of the osseous structures. Postoperative changes of the left upper quadrant. RAD/Chest PA and Lateral IMPRESSION: No acute cardiopulmonary process identified. Electronically Signed: Maya Johnson MD at 12:20 EDT , CC: CHAD Morgan; Dr. Sotero Lowe DO Senior Laboratory Technician: Signed [facility] Emergency Department Summary on 12-13-2023 Emergency Department Summary [facility] Medical Records Department [address] [place] [id number] Emergency Department Summary 12/13/23 MR#: [id number] Acct: [id number] Name: MARY JANE DE PAZ Rep #: [id number] : 1950 73 From: Sotero Lowe DO PCP: CHAD Gabriel Status:REG ER Location: ED HPI History of Present Illness Chief Complaint: Lower Extremity Injury Narrative Narrative: Patient is a 73-year-old female with past medical history of hypertension, MARIBEL, hypothyroidism, type 2 diabetes who presented to the emergency department with a chief complaint of left foot pain and right rib pain. Patient states that yesterday she was outside letting her dogs out when she rolled her right ankle noted that she had immediate pain in her right foot and states that she fell and landed on her right ribs as well. She states that she not hit her head did not pass out did not lose consciousness she remembers the entire event. Patient denies any blood thinner medications. She states that she did not have chest pain, shortness of breath, lightheadedness, dizziness prior to her fall. Patient states that it hurts for her to bear weight on her right foot. [facility] Medical History Diabetes type 2, controlled Depression Hypothyroid HTN (hypertension) MARIBEL (obstructive sleep apnea) Home Medications ???Medication ???Instructions ???Recorded ???Last Taken ???Type ondansetron 4 mg disintegrating 4 mg PO Q6H PRN nausea and 12/13/23 Unknown Rx tablet vomiting #14 tabs oxycodone-acetaminophen 5 mg-325 1 tab PO Q6H PRN pain 3 days #12 12/13/23 Unknown Rx mg tablet tabs Allergy/AdvReac Type Severity Reaction Status Date / Time No Known Allergies Allergy Verified 12/13/23 10:54 Social History Smoking Status: Never smoker ROS ROS ED ROS Narrative Constitutional: Denies any fevers, chills, headaches, lightness, dizziness Eyes: Denies change in vision double vision blurry vision Cardiovascular: Denies chest pain or palpitations Respiratory: Denies coughing wheezing shortness of breath Abdomen: Denies abdominal pain nausea vomit diarrhea : Denies any urinary symptoms Neurological: Denies numbness, weakness, tingling Musculoskeletal: Complains of right foot pain as well as right rib pain as noted above Skin: States that she does have some bruising noted to her left elbow from a previous fall denies any or other rashes or lesions EXAM Physical Exam Narrative Exam Narrative: General: Patient lying in bed rest comfortably did not appear to be in acute distress Head: Atraumatic, normocephalic Eyes: PERRL bilateral, EOMI bilateral, no conjunctival injection noted Neck: Soft, supple, trachea midline Cardiovascular: Regular rate and rhythm no murmurs gallops rubs noted Respiratory: Clear to auscultation bilaterally no rales rhonchi or wheeze noted Abdomen: Soft, nondistended, nontender to palpation, bowel sounds present #4 Musculoskeletal: Tenderness to palpation over the right lateral foot and right distal pinky toe. Patient has some tenderness palpation of the right rib cage all other bony prominences palpated and joints taken through full range of motion no pain elicited Extremities: DP pulses +2/4 in the bilateral lower extremities, radial pulses +2/4 in the bilateral upper extremities, no pedal edema noted exam Neurological: Patient was following commands knew that she was at [facility] year is 2023. Sensation grossly intact when compared bilaterally throughout her body Skin: Warm, dry, patient has ecchymosis noted of her lateral left elbow from a previous fall a few days ago she has some ecchymosis noted over the right lateral dorsal aspect of her foot. Const Vital Signs: 12/13/23 10:53 12/13/23 12:53 Temperature 98.3 F Temperature Source Temporal Pulse Rate 76 89 Respiratory Rate 14 16 Blood Pressure 133/72 H 135/74 H Blood Pressure Mean 92 94 Pulse Ox 98 99 Oxygen Delivery Method Room Air Room Air MDM MDM MDM Narrative Medical decision making narrative: Patient is a 73-year-old female who presented to the emerged part with a chief complaint of fall and twisting her right foot with right foot pain. Patient will have workup performed here on the differential diagnose includes but not limited to foot fracture, distal tibia fracture, lateral malleolus fracture, rib fractures. Once workup is obtained reviewed she will be reevaluated. Patient's x-ray of her chest showed no acute cardiopulmonary processes which was reviewed by myself and radiology. Patient's x-ray of her right foot was reviewed by myself and by radiology as well which showed a nondisplaced fracture of the right fifth metatarsal base and proximal phalanx of t (more content not included)... [facility] Foot min 3 Viewson Foot min 3 Views [facility] Imaging Services [address] [place], [place] [address] Foot min 3 Views MR#: [id number] Acct: [id number] Name: MARY JANE DE PAZ Rep #: [id number] : 1950 F 73 From: Maya jo MD PCP: CHAD Gabriel Status: PRE ER Study: Foot min 3 Views Date of Exam: 12/13/23 Exam# [id number] Ordering Dr: Sotero Lowe DO -[id number] HISTORY: pain fall. TECHNIQUE: XR Foot Min 3 Views. COMPARISON: None. FINDINGS: BONES : Nondisplaced horizontal fracture of the fifth metatarsal base. Nondisplaced comminuted intra-articular fracture at the base of the fifth proximal phalanx with mild sclerosis. Generalized osteopenia. JOINTS: No dislocation. Mild degenerative change. SOFT TISSUES: Soft tissue swelling. RAD/Foot min 3 Views IMPRESSION: Nondisplaced fractures of the right fifth metatarsal base and proximal phalanx of the fifth toe. Electronically Signed: Maya Johnson MD at 12:22 EDT , CC: CHAD Morgan; Dr. Sotero Lowe DO Senior Laboratory Technician: Signed [facility] Medium Joint Arthro/Inj: R u lnocarpalon 10-13-2023 Juan Jose Keys DO 10/13/2023 11:12 AM Medium Joint Arthro/Inj: R ulnocarpal Informed Consent Consent Obtained: Verbal [place] Protocol A moment to CARE was completed. SIGN IN Personnel directly involved with the procedure wore the appropriate PPE. Patient/Surrogate Stated/Verified: Patient name, Date of , Relevant allergies and Intended procedure TIME OUT Intended patient and procedure match the source document(s). Relevant labs, photos, and/or imaging studies have been reviewed. Correct side/site marked and visible. Medications required for procedure verified. 10/13/2023 11:11 AM The procedure site was prepped in the usual sterile fashion. Details:Musculoskeletal ultrasound was utilized to successfully localize placement of the injection needle at the appropriate site. Ultrasound images demonstrating local vasculature and demonstrating injection of solution were saved. Medications: 6 mg betamethasone acetate-betamethasone sodium phosphate 6 mg/mL Anesthetics: 0.5 mL lidocaine (PF) 10 mg/mL (1 %) Outcome: tolerated well, no immediate complications Post-injection instructions were reviewed with the patient and the patient voiced understanding of these instructions. [facility] US WRIST-INJECTION RT (POC) TY USE ONLYon 10-13-2023 [facility] XR Pelvis and Hip - right AP and Lateral frogon 10-12-2023 IMPRESSION: No acute fractures identified. Senior Laboratory Technician: PSCCristobal Transcribe Date/Time: Oct 12 2023 7:28A Dictated by : DAO DENG MD This examination was interpreted and the report reviewed and electronically signed by: DAO DENG MD on Oct 12 2023 7:30AM EST [facility] * * *Final Report* * * DATE OF EXAM: Oct 11 2023 5:38PM [id number] 5352 - XR HIP 3V PELV+ AP/LAT RT / PROCEDURE REASON: multiple diagnoses * * * * Physician Interpretation * * * * XR HIP 3V PELV+ AP/LAT RT Ordering Physician: KATERINE RODAS 10/11/2023 5:38 PM RIGHT HIP AND PELVIS Clinical Statement: Patient fell FINDINGS: 2 images of the right hip were obtained with an additional image of the pelvis. The study was compared to a previous examination dated 523. The bones are osteopenic. There is a right hip prosthesis which appears in good position. No acute fractures are identified. The SI joints, left hip and symphysis appear intact. There is a pelvic stimulator. [facility] Provider, [facility] Tristen Smith - 10/12/2023 * * *Final Report* * * DATE OF EXAM: Oct 11 2023 5:38PM [id number] 5352 - XR HIP 3V PELV+ AP/LAT RT / PROCEDURE REASON: multiple diagnoses * * * * Physician Interpretation * * * * XR HIP 3V PELV+ AP/LAT RT Ordering Physician: KATERINE RODAS 10/11/2023 5:38 PM RIGHT HIP AND PELVIS Clinical Statement: Patient fell FINDINGS: 2 images of the right hip were obtained with an additional image of the pelvis. The study was compared to a previous examination dated 523. The bones are osteopenic. There is a right hip prosthesis which appears in good position. No acute fractures are identified. The SI joints, left hip and symphysis appear intact. There is a pelvic stimulator. IMPRESSION IMPRESSION: No acute fractures identified. Senior Laboratory Technician: SEFERINO Transcribe Date/Time: Oct 12 2023 7:28A Dictated by : DAO DENG MD This examination was interpreted and the report reviewed and electronically signed by: DAO DENG MD on Oct 12 2023 7:30AM EST [facility] No Panel Informationon 10-10 Radiology Study observation (narrative) [facility] XR Ribs - right Views and est PAon 10-11-2023 IMPRESSION: No RIGHT rib fracture or pneumothorax. Senior Laboratory Technician: SEFERINO Transcribe Date/Time: Oct 11 2023 7:40P Dictated by : YAMILEX CHAN MD This examination was interpreted and the report reviewed and electronically signed by: YAMILEX CHAN MD on Oct 11 2023 7:42PM [facility] * * *Final Report* * * DATE OF EXAM: Oct 11 2023 5:38PM [id number] [id number] - XR RIB/CHST 3V AP RIB/OBL/CHST R / PROCEDURE REASON: multiple diagnoses * * * * Physician Interpretation * * * * TECHNIQUE: XR RIB/CHST 3V AP RIB/OBL/CHST R, 6 views EXAM DATE: 10/11/2023 5:38 PM CLINICAL HISTORY: 73 years Female with Fall, initial encounter Rib pain on right side ; POST FALL INJURY RT RIBS AND RT HIP. PAIN LATERAL RIBS AT BREAST LINE. HIP PAIN LATERAL ASPECT. HX OF HIP SURGERY. COMPARISON: None RESULT: No focal pulmonary consolidation, significant pleural effusion or pneumothorax. No rib fracture. No other osseous abnormality noted. Incidental note is made of minimal atelectasis in the right lung base. [facility] Provider, Evelyn Smith - 10/11/2023 * * *Final Report* * * DATE OF EXAM: Oct 11 2023 5:38PM [id number] 5244 - XR RIB/CHST 3V AP RIB/OBL/CHST R / PROCEDURE REASON: multiple diagnoses * * * * Physician Interpretation * * * * TECHNIQUE: XR RIB/CHST 3V AP RIB/OBL/CHST R, 6 views EXAM DATE: 10/11/2023 5:38 PM CLINICAL HISTORY: 73 years Female with Fall, initial encounter Rib pain on right side ; POST FALL INJURY RT RIBS AND RT HIP. PAIN LATERAL RIBS AT BREAST LINE. HIP PAIN LATERAL ASPECT. HX OF HIP SURGERY. COMPARISON: None RESULT: No focal pulmonary consolidation, significant pleural effusion or pneumothorax. No rib fracture. No other osseous abnormality noted. Incidental note is made of minimal atelectasis in the right lung base. IMPRESSION IMPRESSION: No RIGHT rib fracture or pneumothorax. Senior Laboratory Technician: PSCB Transcribe Date/Time: Oct 11 2023 7:40P Dictated by : YAMILEX CHAN MD This examination was interpreted and the report reviewed and electronically signed by: YAMILEX CHAN MD on Oct 11 2023 7:42PM EST [facility] XR Ribs - right Views and Ch est PAOrdered By: Ccf Provider on 10-11-2023 [facility] XR Toes - right 3 Viewson IMPRESSION: Nondisplaced fracture fifth proximal phalanx. Senior Laboratory Technician: PSCB Transcribe Date/Time: Sep 15 2023 6:27A Dictated by : CINDA THACKER MD This examination was interpreted and the report reviewed and electronically signed by: CINDA THACKER MD on Sep 15 2023 6:28AM [facility] * * *Final Report* * * DATE OF EXAM: Sep 12 2023 1:41PM [id number] 5269 - XR TOE 3V AP/LAT/OBL RT / PROCEDURE REASON: Contusion of fifth toe * * * * Physician Interpretation * * * * XR TOE 3V AP/LAT/OBL RT Ordering Physician: GELY SANDOVAL Clinical Statement: Contusion of fifth toe. FINDINGS: Nondisplaced fracture through the base of the fifth proximal phalanx with associated soft tissue swelling. No significant angulation. [facility] Provider, Evelyn Ramon [facility] - 09/15/2023 * * *Final Report* * * DATE OF EXAM: Sep 12 2023 1:41PM RMX 5269 - XR TOE 3V AP/LAT/OBL RT / PROCEDURE REASON: Contusion of fifth toe * * * * Physician Interpretation * * * * XR TOE 3V AP/LAT/OBL RT Ordering Physician: GELY SANDOVAL Clinical Statement: Contusion of fifth toe. FINDINGS: Nondisplaced fracture through the base of the fifth proximal phalanx with associated soft tissue swelling. No significant angulation. IMPRESSION IMPRESSION: Nondisplaced fracture fifth proximal phalanx. Senior Laboratory Technician: SEFERINO Transcribe Date/Time: Sep 15 2023 6:27A Dictated by : CINDA THACKER MD This examination was interpreted and the report reviewed and electronically signed by: CINDA THACKER MD on Sep 15 2023 6:28AM EST [facility] XR Toes - right 3 ViewsOrder ed By: Ccf Provider on [facility] Toes - right 3 Viewson Radiology Study observation (narrative) [facility] Urinalysis complete panel (U )on 08-06-2023 Bacteria uL uL High Negative uL [facility] Bilirubin Ql (U) 1+ Abnormal Negative [facility] Comment on above: Suggest correlation with clinical findings and serum bilirubin if clinically indicated. Clarity (Unsp spec) Cloudy Abnormal Clear [facility] Color (U) Dark Yellow Abnormal Yellow [facility] Epithelial cells LM.HPF (Urine sed) [#/Area] None Seen /HPF [facility] Glucose Test strip (U) [Mass/Vol] Negative Negative [facility] Hemoglobin Ql (U) Trace Abnormal Negative [facility] Hyaline casts (Urine sed) [#/Area] 1-3 /LPF Abnormal 0 /LPF [facility] Interpretation and review of laboratory results Abnormal [facility] Ketones Ql (U) Negative Negative [facility] Leukocyte esterase Test strip Ql (U) 3+ Abnormal Negative [facility] Nitrite Ql (U) Positive Abnormal Negative [facility] pH (U) 6.5 [pH] NINF - 8.5 [facility] Protein (U) [Mass/Vol] 1+ Abnormal Negative [facility] RBC LM.HPF (Urine sed) [#/Area] 0-2 /HPF 0-2 /HPF [facility] Specific gravity (U) [Rel density] 1.019 1.005 - 1.030 [facility] Urobilinogen Ql (U) 1.0 EU/dL 0.2-1.0 EU/dL [facility] WBC LM.HPF (Urine sed) [#/Area] /[HPF] Abnormal 0-5 /HPF [facility] Result rechecked This test was developed and its performance characteristics determined by [facility]'s Will [facility] [place] ([facility]). It has not been cleared or approved by the FDA. [facility] is regulated under CLIA as qualified to perform high-complexity testing. This test is used for clinical purposes. It should not be regarded as investigational or for research. [facility] ANES POSTPROC EVALon 024 ANES POSTPROC EVAL HNO ID: [id number] Author: TSERING YOUNG MD Service: Anesthesiology Author Type: Anesthesiologist Type: Anesthesia Postprocedure Evaluation Filed: 07/29/2023 13:43 Note Text: POST ANESTHESIA EVALUATION NOTE : 1950 Procedure Summary Date: 07/26/23 Room / Location: OR / [facility] OR Anesthesia Start: 1933 Anesthesia Stop: 2115 Procedure: LAPAROSCOPIC REDUCTION INTERNAL HERNIA (Abdomen) Diagnosis: SBO (small bowel obstruction) (HCC) (SBO (small bowel obstruction) (HCC) [K56.609]) Surgeons: Wesly Framer MD Responsible Provider: Tsering Young MD Anesthesia Type: general ASA Status: 3 - Emergent Anesthesia Type: general Airway Type: ETT Last Vitals Vitals Value Taken Time BP 140/82 07/28/23 0712 Temp 36.7 ?C (98.1 ?F) 07/28/23 0712 HR SpO2 75 07/26/23 2203 Resp 18 07/28/23 0712 SpO2 95 % 07/28/23 0712 Vitals shown include unfiled device data. Post Anesthesia Patient Status Patient Evaluation: PACU. PACU/ICU Patient Condition: stable. Anticipated Disposition: inpatient floor planned admission. Neurological Status: aware and responsive. Pulmonary Status: breathing comfortably on room air Airway Control: returned to baseline unsupported. Cardiovascular Status: stable. Pain Management: clinically adequate Postoperative Hydration: acceptable. Intraoperative Events: no significant anesthesia events Post Operative Nausea/Vomiting Status: no significant post operative nausea or vomiting Recommendation: continue current plan of care. Anesthesia Observations No Documentation SIGNATURE: Tsering Young MD PATIENT NAME: Mary Jane De Paz DATE: July 29, 2023 TIME: 1:43 PM CSN: [id number] Normal [facility] Basic metabolic 2000 panelon 07-28-2023 Anion gap [Moles/Vol] 9 mmol/L Normal -18 [facility] Comment on above: Order Comment: Speci men Type: BLOOD SPECIMEN Ordering Facility: [facility] Address: [address] [place] [address] Performed By: #### 1 23-9, 47525-1, 2776-03 #### [facility] CLIA [id number] [address] [place] [address] [place] Calcium [Mass/Vol] 8.8 mg/dL Normal 8.5-10.2 [facility] Comment on above: Order Comment: Speci men Type: BLOOD SPECIMEN Ordering Facility: [facility] Address: [address] [place] [address] Performed By: #### 1 23-9, 36268-8, 2776-03 #### [facility] CLIA [id number] [address] [place] [address] [place] Chloride [Moles/Vol] 99 mmol/L Normal 97-105 [facility] Comment on above: Order Comment: Speci men Type: BLOOD SPECIMEN Ordering Facility: [facility] Address: [address] [place] [address] Performed By: #### 1 239, 89748-7, 2776-03 #### [facility] CLIA [id number] [address] [place] [address] [place] CO2 [Moles/Vol] 28 mmol/L Normal 22-30 [facility] Comment on above: Order Comment: Speci men Type: BLOOD SPECIMEN Ordering Facility: [facility] Address: [address] [place] [address] Performed By: #### 1 23-9, 74443-8, 2776-03 #### [facility] CLIA [id number] [address] [place] [address] [place] Creatinine [Mass/Vol] 1.19 mg/dL High 0.58-0.96 [facility] Comment on above: Order Comment: Speci men Type: BLOOD SPECIMEN Ordering Facility: [facility] Address: [address] [place] [address] Performed By: #### 1 23-9, 34873-5, 2777-1 #### [facility] CLIA [id number] [address] [place] [address] [place] Creatinine and Glomerular filtration rate.predicted panel (S/P/Bld) 49 mL/min/1.73m??? Low >=60 [facility] Comment on above: Order Comment: Darrell guajardo Type: BLOOD SPECIMEN Ordering Facility: [facility] Address: [address] [place] [address] Result Comment: Melba mated Glomerular Filtration Rate (eGFR) is calculated using the 2020 CKD-EPI creatinine equation. This equation utilizes serum creatinine, sex, and age as parameters. The creatinine assay has traceable calibration to isotope dilution-mass spectrometry. Refer to KDIGO guidelines for clinical interpretation. In patients with unstable renal function, e.g. those with acute kidney injury, the eGFR may not accurately reflect actual GFR. Performed By: #### 1 9123-9, 07418-0, 2776- #### [facility] CLIA [id number] [address] [place] [address] [place] Glucose [Mass/Vol] 116 mg/dL High 74-99 [facility] Comment on above: Order Comment: Darrell guajardo Type: BLOOD SPECIMEN Ordering Facility: [facility] Address: [address] [place] [address] Result Comment: The [place] [employer] (ADA) provides guidance for cutoff values for fasting glucose and random glucose. The ADA defines fasting as no caloric intake for at least 8 hours. Fasting plasma glucose results between 100 to 125 mg/dL indicate increased risk for diabetes (prediabetes). Fasting plasma glucose results greater than or equal to 126 mg/dL meet the criteria for diagnosis of diabetes. In the absence of unequivocal hyperglycemia, results should be confirmed by repeat testing. In a patient with classic symptoms of hyperglycemia or hyperglycemic crisis, random plasma glucose results greater than or equal to 200 mg/dL meet the criteria for diagnosis of diabetes. Reference: Standards of Medical Care in Diabetes 2016, [place] [employer]. Diabetes Care. 2016.39(Suppl 1). Performed By: #### 1 9123-9, 64719-1, 277- #### [facility] CLIA [id number] [address] [place] [address] [place] Potassium [Moles/Vol] 4.8 mmol/L Normal 3.7-5.1 [facility] Comment on above: Order Comment: Speci men Type: BLOOD SPECIMEN Ordering Facility: [facility] Address: [address] [place] [address] Performed By: #### 1 9123-9, 56938-2, 2776-03 #### [facility] CLIA [id number] [address] [place] [address] [place] Sodium [Moles/Vol] 136 mmol/L Normal 136-144 [facility] Comment on above: Order Comment: Speci men Type: BLOOD SPECIMEN Ordering Facility: [facility] Address: [address] [place] [address] Performed By: #### 1 9123-9, 80465-4, 2776-03 #### [facility] CLIA [id number] [address] [place] [address] [place] Urea nitrogen [Mass/Vol] 11 mg/dL Normal 7-21 [facility] Comment on above: Order Comment: Speci men Type: BLOOD SPECIMEN Ordering Facility: [facility] Address: [address] [place] [address] Performed By: #### 1 9123-9, 40043-3, 2776-03 #### [facility] CLIA [id number] [address] [place] [address] [place] CBC W Auto Differential pane l (Bld)on 07-28-2023 Basophils (Bld) [#/Vol] 0.07 10*3/uL Normal <0.11 [facility] Comment on above: Order Comment: Speci men Type: BLOOD SPECIMENOrdering Facility: [facility] Address: [address] [place] [address] Performed By: #### 5 7021-8 ####[facility] [id number] [place] [address] [place] Basophils/100 WBC (Bld) 0.9 % Normal [facility] Comment on above: Order Comment: Speci men Type: BLOOD SPECIMENOrdering Facility: [facility] Address: [address] [place] [address] Performed By: #### 5 7021-8 ####[facility] [id number] [place] [address] [place] Differential cell count method Nom (Bld) Auto Normal [facility] Comment on above: Order Comment: Speci men Type: BLOOD SPECIMENOrdering Facility: [facility] Address: [address] [place] [address] Performed By: #### 5 7021-8 ####[facility] LABORATORYCLIA [id number] [place] [address] [place] Eosinophils (Bld) [#/Vol] 0.34 10*3/uL Normal <0.46 [facility] Comment on above: Order Comment: Speci men Type: BLOOD SPECIMENOrdering Facility: [facility] Address: [address] [place] [address] Performed By: #### 5 7021-8 ####[facility] LABORATORYCLIA [id number] [place] [address] [place] Eosinophils/100 WBC (Bld) 4.2 % Normal [facility] Comment on above: Order Comment: Speci men Type: BLOOD SPECIMENOrdering Facility: [facility] Address: [address] [place] [address] Performed By: #### 5 7021-8 ####[facility] LABORATORYCLIA [id number] [address] [place] Erythrocyte distribution width (RBC) [Ratio] 12.5 % Normal 11.5-15.0 [facility] Comment on above: Order Comment: Speci men Type: BLOOD SPECIMENOrdering Facility: [facility] Address: [address] [place] [address] Performed By: #### 5 7021-8 ####[facility] LABORATORYCLIA [id number] [address] [place] Hematocrit (Bld) [Volume fraction] 33.0 % Low 36.0-46.0 [facility] Comment on above: Order Comment: Speci men Type: BLOOD SPECIMENOrdering Facility: [facility] Address: [address] [place], [place] [address] Performed By: #### 5 7021-8 ####[facility] LABORATORYCLIA [id number] [place] [id number] [place] Hemoglobin (Bld) [Mass/Vol] 11.2 g/dL Low 11.5-15.5 [facility] Comment on above: Order Comment: Speci men Type: BLOOD SPECIMENOrdering Facility: [facility] Address: [address] [place] [address] Performed By: #### 5 7021-8 ####[facility] LABORATORYCLIA [id number] [place] [address] [place] Immature granulocytes (Bld) [#/Vol] 0.04 10*3/uL Normal <0.10 [facility] Comment on above: Order Comment: Speci men Type: BLOOD SPECIMENOrdering Facility: [facility] Address: [address] [place] [address] Performed By: #### 5 7021-8 ####[facility] LABORATORYCLIA [id number] [place] [address] [place] Immature granulocytes/100 WBC (Bld) 0.5 % Normal [facility] Comment on above: Order Comment: Speci men Type: BLOOD SPECIMENOrdering Facility: [facility] Address: [address] [place] [address] Performed By: #### 5 7021-8 ####[facility] LABORATORYCLIA [id number] [place] [address] [place] Lymphocytes (Bld) [#/Vol] 2.06 10*3/uL Normal 1.00-4.00 [facility] Comment on above: Order Comment: Speci men Type: BLOOD SPECIMENOrdering Facility: [facility] Address: [address] [place] [address] Performed By: #### 5 7021-8 ####[facility] LABORATORYCLIA [id number] [place] [id number] [place] Lymphocytes/100 WBC (Bld) 25.6 % Normal [facility] Comment on above: Order Comment: Speci men Type: BLOOD SPECIMENOrdering Facility: [facility] Address: [address] [place] [address] Performed By: #### 5 7021-8 ####[facility] LABORATORYCLIA [id number] [address] MCH (RBC) [Entitic mass] 31.8 pg Normal 26.0-34.0 [facility] Comment on above: Order Comment: Speci men Type: BLOOD SPECIMENOrdering Facility: [facility] Address: [address] [place] [address] Performed By: #### 5 7021-8 ####[facility] LABORATORYCLIA [id number] [address] STATES [facility] MCHC (RBC) [Mass/Vol] 33.9 g/dL Normal 30.5-36.0 [facility] Comment on above: Order Comment: Speci men Type: BLOOD SPECIMENOrdering Facility: [facility] Address: [address] [place] [address] Performed By: #### 5 7021-8 ####[facility] LABORATORYCLIA [id number] [address] [place] MCV (RBC) [Entitic vol] 93.8 fL Normal 80.0-100.0 [facility] Comment on above: Order Comment: Speci men Type: BLOOD SPECIMENOrdering Facility: [facility] Address: [address] [place] [address] Performed By: #### 5 7021-8 ####M[facility]DA LABORATORYCLIA [id number] [address] Monocytes (Bld) [#/Vol] 0.56 10*3/uL Normal <0.87 [facility] Comment on above: Order Comment: Speci men Type: BLOOD SPECIMENOrdering Facility: [facility] Address: [address] [place] [address] Performed By: #### 5 7021-8 ####[facility] LABORATORYCLIA [id number] [address] [place] Monocytes/100 WBC (Bld) 6.9 % Normal [facility] Comment on above: Order Comment: Speci men Type: BLOOD SPECIMENOrdering Facility: [facility] Address: [address] [place] [address] Performed By: #### 5 7021-8 ####MALINDA LABORATORYCLIA [id number] [place] [id number] [place] Neutrophils (Bld) [#/Vol] 4.99 10*3/uL Normal 1.45-7.50 [facility] Comment on above: Order Comment: Speci men Type: BLOOD SPECIMENOrdering Facility: [facility] Address: [address] [place] [address] Performed By: #### 5 7021-8 ####MALINDA LABORATORYCLIA [id number] [place] [id number] [place] Neutrophils/100 WBC (Bld) 61.9 % Normal [facility] Comment on above: Order Comment: Speci men Type: BLOOD SPECIMENOrdering Facility: [facility] Address: [address] [place] [address] Performed By: #### 5 7021-8 ####MAL[facility]DA LABORATORYCLIA [id number] [place] [id number] [place] Nucleated RBC (Bld) [#/Vol] 10*3/uL Normal <0.01 [facility] Comment on above: Order Comment: Speci men Type: BLOOD SPECIMENOrdering Facility: [facility] Address: [address] [place] [address] Performed By: #### 5 7021-8 ####MAL[facility] LABORATORYCLIA [id number] [place] [id number] [place] Nucleated RBC/100 WBC (Bld) [Ratio] 0.0 /100 WBC Normal [facility] Comment on above: Order Comment: Speci men Type: BLOOD SPECIMENOrdering Facility: [facility] Address: [address] [place] [address] Performed By: #### 5 7021-8 ####MAL[facility] LABORATORYCLIA [id number] [place] [id number] [place] Platelet mean volume (Bld) [Entitic vol] 9.5 fL Normal 9.0-12.7 [facility] Comment on above: Order Comment: Speci men Type: BLOOD SPECIMENOrdering Facility: [facility] Address: [address] [place] [address] Performed By: #### 5 7021-8 ####[facility]ORATORYCLIA [id number] [place] [id number] [place] Platelets (Bld) [#/Vol] 289 10*3/uL Normal 150-400 [facility] Comment on above: Order Comment: Speci men Type: BLOOD SPECIMENOrdering Facility: [facility] Address: [address] [place] [address] Performed By: #### 5 7021-8 ####[facility]ORATORYCLIA [id number] [place] [address] [place] RBC (Bld) [#/Vol] 3.52 10*6/uL Low 3.90-5.20 [facility] Comment on above: Order Comment: Speci men Type: BLOOD SPECIMENOrdering Facility: [facility] Address: [address] [place] [address] Performed By: #### 5 7021-8 ####[facility]ORATORYCLIA [id number] [place] [id number] [place] WBC (Bld) [#/Vol] 8.06 10*3/uL Normal 3.70-11.00 [facility] Comment on above: Order Comment: Speci men Type: BLOOD SPECIMENOrdering Facility: [facility] Address: [address] [place] [address] Performed By: #### 5 7021-8 ####[facility]ORATORYCLIA [id number] [place] [id number] [facility] [place] CNDSon 07-28-2023 CNDS HNO ID: [id number] Author: WESLY FARMER MD Service: General Surgery Author Type: Physician Type: Discharge Summary Filed: 07/28/2023 12:23 Note Text: GENERAL SURGERY DISCHARGE SUMMARY PATIENT NAME: Mary Jane De Paz ADMISSION DATE: 07/26/2023 DISCHARGE DATE: 07/28/2023 ATTENDING PHYSICIAN: Wesly Farmer MD Code Status: Full Code Highest Readmission Risk Score: 17 The 30 day readmissions risk score is derived from an internally validated risk model which evaluates patient level characteristics, utilization history, medication orders and lab results up until the day of discharge. Patients with a score of 40 or above are considered highest risk for readmission. Specific patient level drivers will be listed at the bottom of the summary. REASON FOR HOSPITALIZATION: Abdominal Pain OPERATIONS DURING HOSPITALIZATION: Procedure(s) (LRB): LAPAROSCOPIC REDUCTION INTERNAL HERNIA (N/A) PROCEDURES DURING HOSPITALIZATION: None HOSPITAL COURSE: Patient presented to the hospital with abdominal pain a/w nausea and vomiting. W/u at [facility] demonstrated obstruction Saimna limb at the level of JJ anastomosis came to the hospital underwent laparoscopic internal hernia reduction identified at pseudo-Connor's defect on 07/26/2023. After surgery, she went to the nursing floor for observation and she was started on oral pain medications and a clear liquid diet. You were tolerating full liquid diet, pain was controlled and you were discharged home. DAY OF EXAM PHYSICAL EXAM: VITALS: BP 140/82 Pulse 64 Temp 36.7 ?C (98.1 ?F) (Oral) Resp 18 Ht 157.5 cm (5' 2) Wt 62 kg (136 lb 11 oz) SpO2 95% BMI 25.00 kg/m? General: Alert and oriented, No acute distress Skin: Normal color, no rash, no lesions. HEENT: EOM, pupils equal, round and reactive. Cardiovascular: Pulse regular. Extremities warm and well perfused Lungs: Nonalbored breathing on RA, symmetric chest rise Abdomen: Soft, approp tenderness, incision c/d/i Extremities: No deformity, no edema or tenderness, no joint swelling or clubbing. Neurological: Normal cognition and motor skills. Active Hospital Problems Diagnosis Date Noted SBO (small bowel obstruction) (HCC) 07/26/2023 H/O gastric bypass 12/23/2018 Resolved Hospital Problems No resolved problems to display. Transitions of Care Critical Issues: NEW BASELINE FOR PATIENT: FLD x1 week and then advance to GIS LABS AND PROCEDURES PENDING AT DISCHARGE: No pending results. CONSULTING TEAMS DURING HOSPITALIZATION: None Treatment Team: Attending Provider: Wesly Farmer MD PATIENT CONDITION AT DISCHARGE: Stable DISCHARGE DISPOSITION: Home with Self Care INFORMATION PROVIDED TO PATIENT: See discharge instructions DIET: Full Liquid Diet: Includes clear liquids plus cream soup, puddings, and milk ACTIVITY: Lifting is restricted to: <10 lbs for 2-4 weeks WOUND/SURGICAL SITE CARE: Skin glue on your incision(s) will come off by itself in 1-2 weeks. It is OK to shower tomorrow, and allow water/soap to run over your incision. Do NOT scrub your incisions , gently pat dry your incisions dry afterwards. ALLERGIES Allergen Reactions Vicodin [Hydrocodon* Itching Pt not sure if she has an allergy but states she wants it documented. DISCHARGE MEDICATION: Medication List START taking these medications acetaminophen 500 mg tablet Commonly known as: TYLENOL Take 2 tablets by mouth every [address] 40 mg tablet Commonly known as: PROTONIX Take 1 tablet by mouth daily at 6 am. Start taking on: July 29, 2023 senna-docusate 8.6-50 mg per tablet Commonly known as: SENNA-S Take 1 tablet by mouth two times a day. traMADol 50 mg tablet Commonly known as: ULTRAM Take 1 tablet by mouth every 8 hours as needed for up to 10 days. CONTINUE taking these medications APPLE CIDER VINEGAR ORAL atorvastatin 20 mg tablet Commonly known as: LIPITOR Take 1 tablet by mouth daily at bedtime. For cholesterol. blood sugar diagnostic test strip Commonly known as: BLOOD GLUCOSE TEST Test blood sugar(s) 1 times daily and as needed for symptoms. Dx: Type 2 DM - Controlled E11.9 Insulin: No buPROPion XL 300 mg 24 hr tablet Commonly known as: WELLBUTRIN XL Take 1 tablet by mouth once daily. calcium citrate 250 mg calcium tablet diclofenac 1 % topical gel Commonly known as: VOLTAREN Apply 4 g to affected area four times daily. dicyclomine 20 mg tablet Commonly known as: BENTYL Take 1 tablet by mouth before meals and at bedtime. esomeprazole 40 mg capsule Commonly known as: NexIUM TAKE ONE CAPSULE BY MOUTH twice daily. famotidine 20 mg tablet Commonly known as: PEPCID Take 1 tablet by mouth two times a day as needed (GERD). FLUoxetine 20 mg capsule Commonly known as: PROzac Take 3 capsules by mouth once daily. FREESTYLE JAUN 3 SENSOR Guido Generic drug: Blood-Glucose Sensor 1 Each as directed. glimepiride 1 mg (more content not included)... Normal [facility] Magnesium SerPl-mCncon 07-27 Magnesium [Mass/Vol] 1.7 mg/dL Normal 1.7-2.3 [facility] Comment on above: Order Comment: Speci men Type: BLOOD SPECIMEN [facility] Address: [address] [place] [address] Performed By: #### 1 9123-9, 93486-9, 2776- #### [facility] CLIA [id number] [address] [place] [address] [place] Phosphate SerPl-ncon 07-27 Phosphate [Mass/Vol] 3.5 mg/dL Normal 2.7-4.8 [facility] Comment on above: Order Comment: Speci men Type: BLOOD SPECIMENOrdering Facility: [facility] Address: [address] [place] [address] Performed By: #### 1 9123-9, 01235-1, 2776-03 ####[facility]ORATORYCLIA [id number] [place] [address] [place] Basic metabolic 2000 panelon 07-27-2023 Anion gap [Moles/Vol] 9 mmol/L Normal 9-18 [facility] Comment on above: Order Comment: Speci men Type: BLOOD SPECIMEN [facility] Address: [address] [place] [address] Performed By: #### 2 777-1, , 94764-1 #### [facility] CLIA [id number] [address] [place] [address] [place] Calcium [Mass/Vol] 8.5 mg/dL Normal 8.5-10.2 [facility] Comment on above: Order Comment: Speci men Type: BLOOD SPECIMEN [facility] Address: [address] [place] [address] Performed By: #### 2 777-1, , 62957-0 #### [facility] CLIA [id number] [address] [place] [address] [place] Chloride [Moles/Vol] 99 mmol/L Normal 97-105 [facility] Comment on above: Order Comment: Speci men Type: BLOOD SPECIMEN [facility] Address: [address] [place] [address] Performed By: #### 2 777-1, , #### [facility] CLIA [id number] [address] [place] [address] [place] CO2 [Moles/Vol] 25 mmol/L Normal 22-30 [facility] Comment on above: Order Comment: Speci men Type: BLOOD SPECIMEN [facility] Address: [address] [place] [address] Performed By: #### 2 777-1, , #### [facility] CLIA [id number] [address] [place] [address] [place] Creatinine [Mass/Vol] 1.19 mg/dL High 0.58-0.96 [facility] Comment on above: Order Comment: Speci men Type: BLOOD SPECIMEN [facility] Address: [address] [place] [address] Performed By: #### 2 777-1, , #### [facility] CLIA [id number] [address] [place] [address] [place] Creatinine and Glomerular filtration rate.predicted panel (S/P/Bld) 49 mL/min/1.73m??? Low >=60 [facility] Comment on above: Order Comment: Speci men Type: BLOOD SPECIMEN [facility] Address: [address] [place] [address] Result Comment: Melba mated Glomerular Filtration Rate (eGFR) is calculated using the 2020 CKD-EPI creatinine equation. This equation utilizes serum creatinine, sex, and age as parameters. The creatinine assay has traceable calibration to isotope dilution-mass spectrometry. Refer to KDIGO guidelines for clinical interpretation. In patients with unstable renal function, e.g. those with acute kidney injury, the eGFR may not accurately reflect actual GFR. Performed By: #### 2 777-1, , #### [facility] CLIA [id number] [place] [id number] [place] Glucose [Mass/Vol] 143 mg/dL High 74-99 [facility] Comment on above: Order Comment: Speci men Type: BLOOD SPECIMEN [facility] Address: [address] [place] [address] Result Comment: The [place] [employer] (ADA) provides guidance for cutoff values for fasting glucose and random glucose. The ADA defines fasting as no caloric intake for at least 8 hours. Fasting plasma glucose results between 100 to 125 mg/dL indicate increased risk for diabetes (prediabetes). Fasting plasma glucose results greater than or equal to 126 mg/dL meet the criteria for diagnosis of diabetes. In the absence of unequivocal hyperglycemia, results should be confirmed by repeat testing. In a patient with classic symptoms of hyperglycemia or hyperglycemic crisis, random plasma glucose results greater than or equal to 200 mg/dL meet the criteria for diagnosis of diabetes. Reference: Standards of Medical Care in Diabetes 2016, [place] [employer]. Diabetes Care. 2016.39(Suppl 1). Performed By: #### 2 777-1, , #### [facility] CLIA [id number] [place] [address] [place] Potassium [Moles/Vol] 4.2 mmol/L Normal 3.7-5.1 [facility] Comment on above: Order Comment: Speci men Type: BLOOD SPECIMEN [facility] Address: [address] [place] [address] Performed By: #### 2 777-1, , #### [facility] CLIA [id number] [address] [place] [id number] [place] Sodium [Moles/Vol] 133 mmol/L Low 136-144 [facility] Comment on above: Order Comment: Speci men Type: BLOOD SPECIMEN [facility] Address: [address] [place] [address] Performed By: #### 2 777-1, , #### [facility] CLIA [id number] [address] [place] [address] [place] Urea nitrogen [Mass/Vol] 14 mg/dL Normal 7-21 [facility] Comment on above: Order Comment: Speci men Type: BLOOD SPECIMEN [facility] Address: [address] [place] [address] Performed By: #### 2 777-1, 36478-8, 57467-0 #### [facility] CLIA [id number] [address] [place] [address] [place] CBC W Auto Differential pane l (Bld)on 07-27-2023 Basophils (Bld) [#/Vol] 0.07 10*3/uL Normal <0.11 [facility] Comment on above: Order Comment: Speci men Type: BLOOD SPECIMENOrdering Facility: [facility] Address: [address] [place] [address] Performed By: #### 5 7021-8 ####[facility]ORATORYCLIA [id number] [place] [address] [place] Basophils/100 WBC (Bld) 0.6 % Normal [facility] Comment on above: Order Comment: Speci men Type: BLOOD SPECIMENOrdering Facility: [facility] Address: [address] [place] [address] Performed By: #### 5 7021-8 ####[facility]ATORYCLIA [id number] [address] [place] Differential cell count method Nom (Bld) Auto Normal [facility] Comment on above: Order Comment: Speci men Type: BLOOD SPECIMENOrdering Facility: [facility] Address: [address] [place] [address] Performed By: #### 5 7021-8 ####[facility]ORATORYCLIA [id number] [place] [address] [place] Eosinophils (Bld) [#/Vol] 0.14 10*3/uL Normal <0.46 [facility] Comment on above: Order Comment: Speci men Type: BLOOD SPECIMENOrdering Facility: [facility] Address: [address] [place], [place] [address] Performed By: #### 5 7021-8 ####[facility] LABORATORYCLIA [id number] [place] [address] [place] Eosinophils/100 WBC (Bld) 1.2 % Normal [facility] Comment on above: Order Comment: Speci men Type: BLOOD SPECIMENOrdering Facility: [facility] Address: [address] [place] [address] Performed By: #### 5 7021-8 ####[facility] LABORATORYCLIA [id number] [place] [address] [place] Erythrocyte distribution width (RBC) [Ratio] 12.5 % Normal 11.5-15.0 [facility] Comment on above: Order Comment: Speci men Type: BLOOD SPECIMENOrdering Facility: [facility] Address: [address] [place] [address] Performed By: #### 5 7021-8 ####[facility] LABORATORYCLIA [id number] [place] [address] [place] Hematocrit (Bld) [Volume fraction] 38.8 % Normal 36.0-46.0 [facility] Comment on above: Order Comment: Speci men Type: BLOOD SPECIMENOrdering Facility: [facility] Address: [address] [place] [address] Performed By: #### 5 7021-8 ####[facility] LABORATORYCLIA [id number] [place] [address] [place] Hemoglobin (Bld) [Mass/Vol] 13.2 g/dL Normal 11.5-15.5 [facility] Comment on above: Order Comment: Speci men Type: BLOOD SPECIMENOrdering Facility: [facility] Address: [address] [place] [address] Performed By: #### 5 7021-8 ####[facility] LABORATORYCLIA [id number] [address] [place] Immature granulocytes (Bld) [#/Vol] 0.06 10*3/uL Normal <0.10 [facility] Comment on above: Order Comment: Speci men Type: BLOOD SPECIMENOrdering Facility: [facility] Address: [facility] [place] [address] Performed By: #### 5 7021-8 ####[facility] LABORATORYCLIA [id number] [place] [id number] [facility] [place] Immature granulocytes/100 WBC (Bld) 0.5 % Normal [facility] Comment on above: Order Comment: Speci men Type: BLOOD SPECIMENOrdering Facility: [facility] Address: [address] [place] [address] Performed By: #### 5 7021-8 ####[facility] LABORATORYCLIA [id number] [place] [address] [place] Lymphocytes (Bld) [#/Vol] 2.55 10*3/uL Normal 1.00-4.00 [facility] Comment on above: Order Comment: Speci men Type: BLOOD SPECIMENOrdering Facility: [facility] Address: [address] [place] [address] Performed By: #### 5 7021-8 ####[facility] LABORATORYCLIA [id number] [address] STATES [facility] Lymphocytes/100 WBC (Bld) 22.3 % Normal [facility] Comment on above: Order Comment: Speci men Type: BLOOD SPECIMENOrdering Facility: [facility] Address: [address] [place] [address] Performed By: #### 5 7021-8 ####[facility] LABORATORYCLIA [id number] [place] [id number] [place] MCH (RBC) [Entitic mass] 32.2 pg Normal 26.0-34.0 [facility] Comment on above: Order Comment: Speci men Type: BLOOD SPECIMENOrdering Facility: [facility] Address: [address] [place] [address] Performed By: #### 5 7021-8 ####[facility] LABORATORYCLIA [id number] [address] [place] MCHC (RBC) [Mass/Vol] 34.0 g/dL Normal 30.5-36.0 [facility] Comment on above: Order Comment: Speci men Type: BLOOD SPECIMENOrdering Facility: [facility] Address: [address] [place] [address] Performed By: #### 5 7021-8 ####[facility] LABORATORYCLIA [id number] [place] [id number] [place] MCV (RBC) [Entitic vol] 94.6 fL Normal 80.0-100.0 [facility] Comment on above: Order Comment: Speci men Type: BLOOD SPECIMENOrdering Facility: [facility] Address: [address] [place] [address] Performed By: #### 5 7021-8 ####[facility] LABORATORYCLIA [id number] [place] [id number] [place] Monocytes (Bld) [#/Vol] 0.64 10*3/uL Normal <0.87 [facility] Comment on above: Order Comment: Speci men Type: BLOOD SPECIMENOrdering Facility: [facility] Address: [address] [place] [address] Performed By: #### 5 7021-8 ####[facility] LABORATORYCLIA [id number] [place] [id number] [place] Monocytes/100 WBC (Bld) 5.6 % Normal [facility] Comment on above: Order Comment: Speci men Type: BLOOD SPECIMENOrdering Facility: [facility] Address: [address] [place] [address] Performed By: #### 5 7021-8 ####[facility] LABORATORYCLIA [id number] [place] [id number] [place] Neutrophils (Bld) [#/Vol] 7.95 10*3/uL High 1.45-7.50 [facility] Comment on above: Order Comment: Speci men Type: BLOOD SPECIMENOrdering Facility: [facility] Address: [address] [place] [address] Performed By: #### 5 7021-8 ####[facility] LABORATORYCLIA [id number] [place] [id number] [place] Neutrophils/100 WBC (Bld) 69.8 % Normal [facility] Comment on above: Order Comment: Speci men Type: BLOOD SPECIMENOrdering Facility: [facility] Address: [address] [place] [address] Performed By: #### 5 7021-8 ####[facility] LABORATORYCLIA [id number] [place] [address] [place] Nucleated RBC (Bld) [#/Vol] 10*3/uL Normal <0.01 [facility] Comment on above: Order Comment: Speci men Type: BLOOD SPECIMENOrdering Facility: [facility] Address: [address] [place] [address] Performed By: #### 5 7021-8 ####[facility] LABORATORYCLIA [id number] [address] STATES [facility] Nucleated RBC/100 WBC (Bld) [Ratio] 0.0 /100 WBC Normal [facility] Comment on above: Order Comment: Speci men Type: BLOOD SPECIMENOrdering Facility: [facility] Address: [address] [place] [address] Performed By: #### 5 7021-8 ####[facility] LABORATORYCLIA [id number] [place] [address] [place] Platelet mean volume (Bld) [Entitic vol] 9.1 fL Normal 9.0-12.7 [facility] Comment on above: Order Comment: Speci men Type: BLOOD SPECIMENOrdering Facility: [facility] Address: [address] [place] [address] Performed By: #### 5 7021-8 ####[facility] LABORATORYCLIA [id number] [place] [address] [place] Platelets (Bld) [#/Vol] 382 10*3/uL Normal 150-400 [facility] Comment on above: Order Comment: Speci men Type: BLOOD SPECIMENOrdering Facility: [facility] Address: [address] [place] [address] Performed By: #### 5 7021-8 ####[facility] LABORATORYCLIA [id number] [place] [address] [place] RBC (Bld) [#/Vol] 4.10 10*6/uL Normal 3.90-5.20 [facility] Comment on above: Order Comment: Speci men Type: BLOOD SPECIMENOrdering Facility: [facility] Address: [address] [place] [address] Performed By: #### 5 7021-8 ####[facility]ATORYCLIA [id number] [place] [id number] [place] WBC (Bld) [#/Vol] 11.41 10*3/uL High 3.70-11.00 [facility] Comment on above: Order Comment: Speci men Type: BLOOD SPECIMENOrdering Facility: [facility] Address: [address] [place] [address] Performed By: #### 5 7021-8 ####[facility]ORATORYCLIA [id number] [place] [address] [place] Magnesium SerPl-mCncon 07-26 Magnesium [Mass/Vol] 1.6 mg/dL Low 1.7-2.3 [facility] Comment on above: Order Comment: Speci men Type: BLOOD SPECIMEN [facility] Address: [address] [place] [address] Performed By: #### 2 777-1, , 81723-3 #### [facility] CLIA [id number] [place] [address] [place] Phosphate SerPl-mCncon 07-26 Phosphate [Mass/Vol] 4.4 mg/dL Normal 2.7-4.8 [facility] Comment on above: Order Comment: Speci men Type: BLOOD SPECIMEN [facility] Address: [address] [place] [address] Performed By: #### 2 777-1, , 69284-1 #### [facility] CLIA [id number] [place] [id number] [place] ANES PRE-OPon 07-26-2023 ANES PRE-OP HNO ID: [id number] Author: TSERING YOUNG MD Service: Anesthesiology Author Type: Anesthesiologist Type: Anesthesia Preprocedure Evaluation Filed: 07/26/2023 18:53 Note Text: ANESTHESIOLOGY DAY OF SURGERY NOTE : 1950 Procedure Information Date/Time: 07/26/231829 Procedure: LAPAROSCOPY DIAGNOSTIC (Abdomen) Location: [facility] OR08 / [facility] Surgeons: Wesly Farmer MD Estimated body mass index is 24.56 kg/m? as calculated from the following: Height as of this encounter: 157.5 cm (5' 2). Weight as of this encounter: 60.9 kg (134 lb 4.2 oz). Most recent hematocrit and potassium results: Hematocrit 42.6 07/26/2023 Potassium 4.4 07/26/2023 DM -- on insulin and trulicity (last took over 1 week ago) CKD -- not on HD Asthma -- well controlled Patient endorsing nausea and small emesis before arriving to PACU. Denies any CP or SOB on exertion Relevant Problems ANESTHESIA (+) MARIBEL (obstructive sleep apnea) CARDIO (+) Coronary artery disease involving blackfeet coronary artery of blackfeet heart without angina pectoris (+) Essential hypertension ENDO (+) Hypothyroid (+) Type 2 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 (HCC) (+) Type 2 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 with stage 3 chronic kidney disease, without long-term current use of insulin (HCC) GI (+) GERD without esophagitis -RENAL (+) Hypertensive kidney disease with stage 3 chronic kidney disease (HCC) (+) Renal lesion (+) Stage 3 chronic kidney disease (HCC) PULMONARY (+) Asthma (+) MARIBEL (obstructive sleep apnea) I - PHYSICAL EVALUATION AIRWAY Patient intubated: No. Tracheostomy tube not present Mallampati: II. TM distance: >3 FB. Neck ROM: full ROM without neurological symptoms. Mouth opening: adequate. Short neck: no. Thick neck: no II - ANESTHESIA PLAN ASA Score: 3; emergent. Anesthetic Plan: general Airway type: ETT The patient is not a current smoker. NPO Status: adequate Beta Manny Monitoring Plan Monitoring plan: standard ASA. Post Procedure Analgesic Plan Postoperative analgesic plan: multimodal analgesia. Informed Consent Anesthetic risks, benefits, alternatives, personnel and consent discussed: yes. Patient / Responsible Republican agrees to proceed: yes Patient / Surrogate agrees to blood products: Yes Vitals Value Taken Time BP 150/77 07/26/231836 Pulse 75 07/26/231836 Resp 16 07/26/231836 Temp 36.4 ?C (97.5 ?F) 07/26/231836 SpO2 96 % 07/26/231836 Facility-Administered Medications as of 07/26/2023 Medication Dose Route Frequency [COMPLETED] ondansetron (PF) 4 mg injection (ZOFRAN) 4 mg INTRAVENOUS ONCE [COMPLETED] fentaNYL 50 mcg/mL 50 mcg injection (SUBLIMAZE) 50 mcg INTRAVENOUS ONCE [COMPLETED] NaCl 0.9% 1,000 mL iv bolus 1,000 mL INTRAVENOUS ONCE [COMPLETED] fentaNYL 50 mcg/mL 50 mcg injection (SUBLIMAZE) 50 mcg INTRAVENOUS ONCE [COMPLETED] ondansetron (PF) 4 mg injection (ZOFRAN) 4 mg INTRAVENOUS ONCE [Held on Transfer] atorvastatin 20 mg tab(s) (LIPITOR) 20 mg ORAL AT BEDTIME [Held on Transfer] buPROPion XL 300 mg tab(s) (WELLBUTRIN XL) 300 mg ORAL DAILY [Held on Transfer] FLUoxetine 60 mg cap(s) (PROzac) 60 mg ORAL DAILY [Held on Transfer] levothyroxine 100 mcg tab(s) (SYNTHROID) 100 mcg ORAL DAILY (6 AM) [Held on Transfer] melatonin 9 mg tab(s) 9 mg ORAL AT BEDTIME PRN [Held on Transfer] traZODone 200 mg tab(s) (DESYREL) 200 mg ORAL AT BEDTIME [Held on Transfer] enoxaparin 40 mg injection (LOVENOX) 40 mg SUBCUTANEOUS q 24 HR [Held on Transfer] NaCl 0.9% iv flush bag 20 mL INTRAVENOUS PRN [Held on Transfer] lactated ringers iv infusion 75 mL/hr INTRAVENOUS CONTINUOUS [COMPLETED] piperacillin-tazobactam iv piggyback 3.375 g in dextrose (iso-osmotic) 50 mL (ZOSYN) 3.375 g INTRAVENOUS Pre-Op Once [Held on Transfer] HYDROmorphone 0.2 mg injection (DILAUDID) 0.2 mg INTRAVENOUS q 4 H PRN [Held on Transfer] acetaminophen 650 mg tab(s) (TYLENOL) 650 mg ORAL q 6 H [Held on Transfer] traMADol 50 mg tab(s) (ULTRAM) 50 mg ORAL q 6 H PRN [Held on Transfer] ondansetron (PF) 4 mg injection (ZOFRAN) 4 mg INTRAVENOUS q 6 H PRN Outpatient Medications as of 07/26/2023 Medication Sig APPLE CIDER VINEGAR ORAL Take 1 capsule by mouth once daily. 450 mg capsule blood sugar diagnostic (BLOOD GLUCOSE TEST) test strip Test blood sugar(s) 1 times daily and as needed for symptoms. Dx: Type 2 DM - Controlled E11.9 Insulin: No Lancets Test blood sugar(s) 1 times daily and prn symptoms. Dx: Type 2 DM - Controlled E11.9 Insulin: No melatonin 10 mg tab Take 1 tablet by mouth at bedtime as needed for insomnia. esomeprazole (NEXIUM) 40 mg capsule TAKE ONE CAPSULE BY MOUTH twice daily. traZODone (DESYREL) 100 mg tablet Take 2 tablets by mouth daily at bedtime. buPROPion XL (WELLBUTRIN XL) 300 mg 24 hr tablet Take 1 tablet by mouth once daily. lisinopril (ZESTRIL) 20 mg tablet Take 1 tablet by mouth once daily. Calcium Citrate 250 mg calcium tab Take 250 mg by mouth. pregabalin (LYRICA) 75 m (more content not included)... [facility] BRIEF OP NOTon 07-26-2023 BRIEF OP NOT HNO ID: [id number] Author: WESLY FARMER MD Service: General Surgery Author Type: Physician Type: Brief Op Note Filed: 07/26/2023 21:06 Note Text: GENERAL SURGERY BRIEF OP NOTE LOG ID: [id number] Surgery/Procedure Date: 07/26/2023 Incision/Procedure Start Time: 8:00 PM Incision Close/Procedure End Time: 8:59 PM Surgeon(s) and Industrial/Organizational Psychologist(s): Surgeon(s) and Role: * Wesly Farmer MD - Primary * King Hunt MD - Resident - Assisting No Additional Staff Procedure(s): Procedure(s): LAPAROSCOPIC REDUCTION INTERNAL HERNIA Anesthesia: * No anesthesia type entered * Findings: - Internal hernia identified at pseudo-Connor's defect - 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 (lysed) - Hernia reduced and defect repaired Tubes/Drains: None Estimated Blood Loss: 5 mls Specimens: * No specimens in log * Implants: * No implants in log * Wound Classification: Class 1, operative wound clean, non-traumatic, with no inflammation encountered, no break in technique, gastrointestinal and genitor-urinary tracts not entered Complications: None Pre-Op/Pre-Procedure Diagnosis: Pre-Op Diagnosis Codes: * SBO (small bowel obstruction) ([facility]) [K56.609] Post-Op/Post-Procedure Diagnosis: Same SIGNATURE: Dao William MD PATIENT NAME: Mary Jane De Paz DATE: July 26, 2023 TIME: 8:59 PM PAGER/CONTACT #: [phone] Wesly Farmer MD Normal [facility] Basic metabolic 2000 panelon 07-26-2023 Anion gap [Moles/Vol] 11 mmol/L Normal 9-18 [facility] Comment on above: Order Comment: Speci men Type: BLOOD SPECIMENOrdering Facility: [facility] Address: [address] [place] [address] Performed By: #### 2 4321-2, , 2776-03 ####[facility]ORATORYCLIA [id number] [place] [id number] [place] Calcium [Mass/Vol] 9.3 mg/dL Normal 8.5-10.2 [facility] Comment on above: Order Comment: Speci men Type: BLOOD SPECIMENOrdering Facility: [facility] Address: [address] [place] [address] Performed By: #### 2 4321-2, , 2776-03 ####[facility]ORATORYCLIA [id number] [place] [id number] [place] Chloride [Moles/Vol] 97 mmol/L Normal 97-105 [facility] Comment on above: Order Comment: Speci men Type: BLOOD SPECIMENOrdering Facility: [facility] Address: [address] [place] [address] Performed By: #### 2 4321-2, , 2776-03 ####[facility]ORATORYCLIA [id number] [place] [id number] [place] CO2 [Moles/Vol] 25 mmol/L Normal 22-30 [facility] Comment on above: Order Comment: Speci men Type: BLOOD SPECIMENOrdering Facility: [facility] Address: [address] [place] [address] Performed By: #### 2 4321-2, , 2776-03 ####[facility]ORATORYCLIA [id number] [place] [id number] [place] Creatinine [Mass/Vol] 1.07 mg/dL High 0.58-0.96 [facility] Comment on above: Order Comment: Brigid men Type: BLOOD SPECIMENOrdering Facility: [facility] Address: [address] [place] [address] Performed By: #### 2 4321-2, , 2776-03 ####[facility]ORATORYCLIA [id number] [place] [id number] [place] Creatinine and Glomerular filtration rate.predicted panel (S/P/Bld) 55 mL/min/1.73m??? Low >=60 [facility] Comment on above: Order Comment: [facility] Type: BLOOD SPECIMENOrdering Facility: [facility] Address: [address] [place] [address] Result Comment: Melba mated Glomerular Filtration Rate (eGFR) is calculated using the 2020 CKD-EPI creatinine equation. This equation utilizes serum creatinine, sex, and age as parameters. The creatinine assay has traceable calibration to isotope dilution-mass spectrometry. Refer to KDIGO guidelines for clinical interpretation. In patients with unstable renal function, e.g. those with acute kidney injury, the eGFR may not accurately reflect actual GFR. Performed By: #### 2 4321-2, , 2776-03 ####[facility]ORATORYCLIA [id number] [place] [id number] [place] Glucose [Mass/Vol] 164 mg/dL High 74-99 [facility] Comment on above: Order Comment: [facility] Type: BLOOD SPECIMENOrdering Facility: [facility] Address: [address] [place] [address] Result Comment: The [place] [employer] (ADA) provides guidance for cutoff values for fasting glucose and random glucose. The ADA defines fasting as no caloric intake for at least 8 hours. Fasting plasma glucose results between 100 to 125 mg/dL indicate increased risk for diabetes (prediabetes). Fasting plasma glucose results greater than or equal to 126 mg/dL meet the criteria for diagnosis of diabetes. In the absence of unequivocal hyperglycemia, results should be confirmed by repeat testing. In a patient with classic symptoms of hyperglycemia or hyperglycemic crisis, random plasma glucose results greater than or equal to 200 mg/dL meet the criteria for diagnosis of diabetes. Reference: Standards of Medical Care in Diabetes 2016, [place] [employer]. Diabetes Care. 2016.39(Suppl 1). Performed By: #### 2 4321-2, , 2776-03 ####[facility]ORATORYCLIA [id number] [place] [id number] [place] Potassium [Moles/Vol] 4.4 mmol/L Normal 3.7-5.1 [facility] Comment on above: Order Comment: Darrell guajardo Type: BLOOD SPECIMENOrdering Facility: [facility] Address: [address] [place] [address] Performed By: #### 2 4321-2, , 2776-03 ####[facility]ORATORYCLIA [id number] [place] [id number] [place] Sodium [Moles/Vol] 133 mmol/L Low 136-144 [facility] Comment on above: Order Comment: Darrell guajardo Type: BLOOD SPECIMENOrdering Facility: [facility] Address: [address] [place] [address] Performed By: #### 2 432-2, , 2776-03 ####[facility]ORATORYCLIA [id number] [place] [id number] [place] Urea nitrogen [Mass/Vol] 12 mg/dL Normal 7-21 [facility] Comment on above: Order Comment: Darrell guajardo Type: BLOOD SPECIMENOrdering Facility: [facility] Address: [address] [place] [address] Performed By: #### 2 4321-2, , 2776-03 ####[facility]ORATORYCLIA [id number] [place] [address] [place] CBC panel Auto (Bld)on 07-25 Erythrocyte distribution width (RBC) [Ratio] 12.5 % Normal 11.5-15.0 [facility] Comment on above: Order Comment: Speci men Type: BLOOD SPECIMENOrdering Facility: [facility] Address: [address] [place] [address] Performed By: #### 5 8410-2 ####[facility] LABORATORYCLIA [id number] [address] Hematocrit (Bld) [Volume fraction] 42.6 % Normal 36.0-46.0 [facility] Comment on above: Order Comment: Speci men Type: BLOOD SPECIMENOrdering Facility: [facility] Address: [address] [place] [address] Performed By: #### 5 8410-2 ####[facility] LABORATORYCLIA [id number] [address] Hemoglobin (Bld) [Mass/Vol] 14.8 g/dL Normal 11.5-15.5 [facility] Comment on above: Order Comment: Speci men Type: BLOOD SPECIMENOrdering Facility: [facility] Address: [address] [place] [address] Performed By: #### 5 8410-2 ####[facility] LABORATORYCLIA [id number] [address] MCH (RBC) [Entitic mass] 32.0 pg Normal 26.0-34.0 [facility] Comment on above: Order Comment: Speci men Type: BLOOD SPECIMENOrdering Facility: [facility] Address: [address] [place] [address] Performed By: #### 5 8410-2 ####[facility] LABORATORYCLIA [id number] [address] MCHC (RBC) [Mass/Vol] 34.7 g/dL Normal 30.5-36.0 [facility] Comment on above: Order Comment: Speci men Type: BLOOD SPECIMENOrdering Facility: [facility] Address: [address] [place] [address] Performed By: #### 5 8410-2 ####[facility]ORATORYCLIA [id number] [place] [id number] [facility] [place] MCV (RBC) [Entitic vol] 92.0 fL Normal 80.0-100.0 [facility] Comment on above: Order Comment: Speci men Type: BLOOD SPECIMENOrdering Facility: [facility] Address: [address] [place] [address] Performed By: #### 5 8410-2 ####[facility]ORATORYCLIA [id number] [address] [place] Nucleated RBC (Bld) [#/Vol] 10*3/uL Normal <0.01 [facility] Comment on above: Order Comment: Speci men Type: BLOOD SPECIMENOrdering Facility: [facility] Address: [address] [place] [address] Performed By: #### 5 8410-2 ####[facility]ORATORYCLIA [id number] [address] [place] Platelet mean volume (Bld) [Entitic vol] 9.0 fL Normal 9.0-12.7 [facility] Comment on above: Order Comment: Speci men Type: BLOOD SPECIMENOrdering Facility: [facility] Address: [address] [place] [address] Performed By: #### 5 8410-2 ####[facility]ORATORYCLIA [id number] [address] [place] Platelets (Bld) [#/Vol] 461 10*3/uL High 150-400 [facility] Comment on above: Order Comment: Speci men Type: BLOOD SPECIMENOrdering Facility: [facility] Address: [address] [place] [address] Performed By: #### 5 8410-2 ####[facility]ORATORYCLIA [id number] [address] [place] RBC (Bld) [#/Vol] 4.63 10*6/uL Normal 3.90-5.20 [facility] Comment on above: Order Comment: Speci men Type: BLOOD SPECIMENOrdering Facility: [facility] Address: [address] [place] [id number] Performed By: #### 5 8410-2 ####[facility] LABORATORYCLIA [id number] [place] [id number] [facility] WBC (Bld) [#/Vol] 16.65 10*3/uL High 3.70-11.00 [facility] Comment on above: Order Comment: Speci men Type: BLOOD SPECIMENOrdering Facility: 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 On arrival, she is afebrile and vital signs are stable. Her abdomen is soft, tender in the periumbilical area without rebound or guarding, and distended. Her labs are notable for WBC 15. CTAP revealed obstructed Samina limb at the level of JJ anastomosis with small bowel measuring 4 cm. - Plan for diagnostic laparoscopy, possible open, possible small bowel resection today - NPO, mIVF - Will obtain consent - Risks and benefits have been discussed Discussed with Dr. Farmer (staff) Wade Chaudhry MD General Surgery PGY-1 Green patients: [place] Patients: Blue Patients: Red Patients: [phone] New patients (AND nights/weekends): [phone] HPI: This is a 73 year old female, with history of allergic rhinitis, asthma, CKD, morbid obesity s/p laparoscopic samina-en-y gastric bypass (), coronary artery disease, depression, diarrhea, right hip fracture, GERD, hypertension, hypothyroidism, T2DM, fecal incontinence s/p SNS placement (most recent exchange 04/2022), panniculectomy (11/2022) who presents with as a transfer from [facility] after 1 day of abdominal pain with nausea and vomiting. She started to have epigastric pain yesterday afternoon with bilious emesis. She also endorses intermittent diarrhea. On arrival, she is afebrile and vital signs are stable. Her abdomen is soft, tender in the periumbilical area without rebound or guarding, and distended. Her labs are notable for WBC 15. CTAP revealed obstructed Samina limb at the level of JJ anastomosis with small bowel measuring 4 cm. PAST MEDICAL HISTORY: PAST MEDICAL HISTORY Diagnosis Date Allergic rhinitis Arthritis [facility] orthopedics, knee Asthma CKD (chronic kidney disease) 11/01/2018 Class 3 severe obesity with serious comorbidity and body mass index (BMI) of 40.0 to 44.9 in adult ([facility]) 08/19/2018 Coronary artery disease 10/28/[address] Salazar Fracture of right hip ([facility]) GERD (gastroesophageal reflux disease) History of transfusion HTN (hypertension) Hypothyroidism Mixed hyperlipidemia NIDDM (non-insulin dependent 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) MARIBEL on CPAP CPAP 9Cm Osteoarthritis of hip Renal lesion 01/15/2015 Suggest renal US every 1-2 years per PCP or nephro. Snoring Type 2 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 with hyperglycemia, with long-term current use of insulin ([facility]) 1999 PAST SURGICAL HISTORY: PAST SURGICAL HISTORY Procedure Laterality Date ABDOMINAL SURGERY HX COLONOSCOPY 11/05/2016 Tammi- divertiuclosis, internal hemorrhoids, repeat in 5 years COLONOSCOPY 04/02/2022 repeat in 5 years due to reported prior history of polyps COSMETIC ASSESSMENT EGD 11/05/2016 Tammi- gastritis EGD 09/08/2018 /Gastritis EGD 04/02/2020 EGD 04/02/2022 EYE SURGERY HX Bilateral cataract extraction 2009's GASTRECTOMY,PART DISTAL;W/GASTRODUODENOSTO GASTRIC BYPASS HX 12/13/2018 Laparoscopic Samina-en-Y gastric bypass HIP SURGERY HX Screws replaced JOINT REPLACEMENT HX OOPHORECTOMY PARTIAL OR TOTAL PAST SURGICAL HISTORY OF 2009 hemmroidectomy/sphincterectomy - Dr Nichole PAST SURGICAL HISTORY OF 2008 total left knee replacement PAST SURGICAL HISTORY OF 2003 partial right knee replacement PAST SURGICAL HISTORY OF 1990 total hysterectomy PAST SURGICAL HISTORY OF 2010 lDr Mansoor - [place] elbow fracture - traumatic. radial head replacement PAST SURGICAL HISTORY OF Bilateral 2016 hand surgery PAST SURGICAL HISTORY OF Left RELEASE CONTRACTURE DEQUERVAINS S INSERT PINN METAL NTRL HIP Right 11/17/2021 SKIN BIOPSY HX TOTAL HIP REPLACEMENT Right TOTAL KNEE REPLACEMENT Right 09/15/2022 TUBAL LIGATION HX VAGINAL HYSTERECTOMY FAMILY HISTORY: FAMILY HISTORY Problem Relation Age of Onset other (polio) Mother Diabetes Father other (Squamous cell ca) Father other (renal cell ca) Father 1999 other (htn) Father other (Thyroid Cancer) Sister other (thyroid disease) Sister ca other (renal cell ca) Brother 2010 Obesity Paternal Grandmother Obesity Daughter Thyroid Daughter Diabetes Daughter Anesthesia Problems No Family History SOCIAL HISTORY: Social History Tobacco Use Smoking status: Former Packs/day: 1.50 (more content not included)... Normal [facility] Magnesium SerPl-mCncon 07-25 Magnesium [Mass/Vol] 1.7 mg/dL Normal 1.7-2.3 [facility] Comment on above: Order Comment: Speci men Type: BLOOD SPECIMENOrdering Facility: [facility] Address: [address] [place] [address] Performed By: #### 2 4321-2, 73249-2, 2777-1 ####[place] [facility]ORYCLIA [id number] [place] [address] [place] NURSING PROGon 07-26-2023 NURSING PROG HNO ID: [id number] Author: MATTEO AGUILAR RN Service: Nursing Author Type: Registered Nurse Type: Nursing Progress Note Filed: 07/26/2023 18:43 Note Text: READINESS TO LEARN COGNITIVE ABILITY: Alert and oriented MOTIVATION TO LEARN: Interested FAMILY SUPPORT: Unable to assess - Family not present INSTRUCTION PROVIDED TO: Patient PATIENT LEARNS BEST BY: Individual Instruction FACTORS AFFECTING LEARNING: None PHYSICAL LIMITATIONS AFFECTING LEARNING: None LEARNING RESPONSE DIAGNOSIS: ADULT: Well Adult PATIENT/FAMILY RESPONSE: Verbalizes understanding of: PRE-OPERATIVE INSTRUCTIONS-Correct action to take to follow pre-operative instructions METHOD OF INSTRUCTION: Individual instruction FOLLOW-UP PLAN: Patient instructed to call with any further issues INSTRUCTIONAL AIDS USED: NA SUPPLEMENTAL MATERIAL PROVIDED TO PATIENT: None REFERRAL (RECOMMENDATION): None Electronically Signed By: Matteo Aguilar [facility] NURSING PROG HNO ID: [id number] Author: AURY LOVE RN Service: Nursing Author Type: Registered Nurse Type: Nursing Progress Note Filed: 07/26/2023 16:19 Note Text: Transfer Note: PATIENT NAME: Mary Jane De Paz Patient Location: [place] [address] [address] Room: [place] [address] Patient transferred into room/unit [place] [address] in stable condition. Actions taken: No futher actions taken at this time. Will continue to monitor and check with patient. [facility] OPERATIVE NOon 07-26-2023 OPERATIVE NO HNO ID: [id number] Author: WESLY FARMER MD Service: General Surgery Author Type: Physician Type: Operative Report Filed: 07/27/2023 15:46 Note Text: [facility] - Operative Report MARY JANE DE PAZ : 1950 AGE: 73. SEX: F PATIENT TYPE: I HOSP SVC: Surgical LOCATION: [facility] ATTENDING PHYSICIAN: Wesly Farmer M.D. CSN NUMBER: [id number] DATE OF SURGERY/PROCEDURE: 07/26/2023 INCISION/PROCEDURE START TIME: 8:00 PM INCISION CLOSE/PROCEDURE END TIME: 8:55 PM PREOPERATIVE DIAGNOSIS: Small-bowel obstruction. POSTOPERATIVE DIAGNOSIS: Small bowel obstruction due to both internal hernias and a mesenteric adhesion. SURGEON: Wesly Farmer M.D. BOOTH OPERATOR: King Hunt M.D. SURGERY/PROCEDURE: 1. Laparoscopic reduction and closure of internal hernia. 2. Laparoscopic lysis of adhesions. ANESTHESIA: General DESCRIPTION OF PROCEDURE: The patient was positioned supine with her arms out. The abdomen was prepped and draped. The abdomen was insufflated with Veress needle in the left subcostal space. The abdomen was entered with a 5 mm 0 degree laparoscope and a 5 mm optical trocar in the left periumbilical space. There was no trauma from the Veress needle and that was removed. After pre-injection with local anesthesia, 5 mm port was placed in the right upper quadrant, 8 mm port in the right periumbilical space, 5 mm port in the left lateral subcostal space. Samina limb was grossly dilated, jejunojejunostomy was identified and it had some multiple omental adhesions to it, which were divided with LigaSure device. The jejunojejunal mesenteric defect was then inspected and was closed. The Samina limb to transverse mesocolic defect was, also pseudo-Oneil defect, was widely open and had small bowel herniated through it. I placed an additional 5 mm port in the left lower quadrant, identified the distal decompressed small bowel and began running it proximally. I came up to an omental adhesion to the base of the mesentery which was trapped in the small intestine, this was divided with the LigaSure and was able to additionally run up to the jejunojejunostomy and this had decompressed the entire pseudo-Oneil space and reduced it. Then, the pseudo-Oneil space was closed with a 3-0 Ethibond suture with a pursestring at the basement and was run up to the Samina limb to completely close this defect. Final inspection was made along the small intestine. Hemostasis was complete. All the small intestine was viable. The abdomen was desufflated, the ports were removed. The skin was injected with local anesthesia. The skin was closed with 4-0 Monocryl. Dressing of Steri-Strips were applied. DRAINS: None. COMPLICATIONS: None. SPECIMENS: None. ESTIMATED BLOOD LOSS: 5 mL ATTESTATION: I performed the procedure with assistance. Wesly Farmer M.D. MARCUS:[id number] /[id number] Normal [facility] Phosphate SerPl-mCncon 07-25 Phosphate [Mass/Vol] 3.2 mg/dL Normal 2.7-4.8 [facility] Comment on above: Order Comment: Speci men Type: BLOOD SPECIMENOrdering Facility: [facility] Address: [address] [place] [address] Performed By: #### 2 4321-2, 79964-1, 2777-1 ####[place] [facility]ORATORYCLIA [id number] [place] [id number] [facility] [place] TYPE + SCREENon 07-26-2023 ABO O [facility] Comment on above: Order Comment: Speci men Type: BLOOD SPECIMENOrdering Facility: [facility] Address: [address] [place] [address] Performed By: #### T SCR ####[place] [facility]ANKCL[facility] [id number] [address] HISTORICAL AB SCR STATUS Negative [facility] Comment on above: Order Comment: Speci men Type: BLOOD SPECIMENOrdering Facility: [facility] Address: [address] [place] [address] Performed By: #### T SCR ####[place] [facility]ANKCLIA [id number] [address] Rh Nom (Bld) Positive [facility] Comment on above: Order Comment: Speci men Type: BLOOD SPECIMENOrdering Facility: [facility] Address: [address] [place] [address] Performed By: #### T SCR ####[place] [facility] BANKCLIA [id number] [place] [id number] [facility] TYPE AND SCREEN EXPIRATION 07/29/2023 23:59 [facility] Comment on above: Order Comment: Speci men Type: BLOOD SPECIMENOrdering Facility: [facility] Address: [address] [place] [address] Performed By: #### T SCR ####[place] [facility]LO[facility] BANKCLIA [id number] [place] [id number] [place] Medium Joint Arthro/Inj: R u lnocarpalon 07-07-2023 Delfin Kerr MD 08/03/2023 11:52 AM Medium Joint Arthro/Inj: R ulnocarpal Informed Consent Consent Obtained: Verbal [place] Protocol A moment to CARE was completed. SIGN IN Personnel directly involved with the procedure wore the appropriate PPE. Special Equipment: Yes Patient/Surrogate Stated/Verified: Patient name, Date of , Relevant allergies and Intended procedure TIME OUT Intended patient and procedure match the source document(s). Consent documented and matches the intended procedure. Relevant labs, photos, and/or imaging studies have been reviewed. Correct side/site marked and visible. Medications required for procedure verified. No fire risk assessment and interventions applicable. No implant(s) inserted. 07/07/2023 4:12 PM The procedure site was prepped in the usual sterile fashion. Medications: 3 mg betamethasone acetate-betamethasone sodium phosphate 6 mg/mL Anesthetics: 1 mL lidocaine (PF) 10 mg/mL (1 %) Outcome: tolerated well, no immediate complications Post-injection instructions were reviewed with the patient and the patient voiced understanding of these instructions. SIGN OUT No specimen collected. All instruments, equipment, possible retained foreign bodies accounted for. Post-procedure follow-up management communicated and Plan of Care Visit completed when applicable [facility] XR Knee AP and Lateral and tye 12-04-2022 IMPRESSION: No acute abnormality Senior Laboratory Technician: SEFERINO Transcribe Date/Time: Dec 04 2022 8:06A Dictated by : ASPEN PERALES MD This examination was interpreted and the report reviewed and electronically signed by: ASPEN PERALES MD on Dec 04 2022 8:10AM EST [facility] * * *Final Report* * * DATE OF EXAM: Dec 02 2022 1:17PM FINA 5209 - XR KNEE 3V AP/LAT/MERCHANT RT / PROCEDURE REASON: multiple diagnoses * * * * Physician Interpretation * * * * PROCEDURE: Right knee INDICATION: Chronic pain of right knee .FOLLOW-UP FOR RIGHT KNEE TECHNIQUE: XR KNEE 3V AP/LAT/MERCHANT RT COMPARISON: 09/30/2022 FINDINGS: The total knee arthroplasty remains in satisfactory position without evidence for loosening. Improving soft tissue swelling. Stable joint effusion. No periprosthetic fracture. Left TKA is evident. [facility] Provider, Evelyn Smith - 12/04/2022 * * *Final Report* * * DATE OF EXAM: Dec 02 2022 1:17PM FINA 5209 - XR KNEE 3V AP/LAT/MERCHANT RT / PROCEDURE REASON: multiple diagnoses * * * * Physician Interpretation * * * * PROCEDURE: Right knee INDICATION: Chronic pain of right knee .FOLLOW-UP FOR RIGHT KNEE TECHNIQUE: XR KNEE 3V AP/LAT/MERCHANT RT COMPARISON: 09/30/2022 FINDINGS: The total knee arthroplasty remains in satisfactory position without evidence for loosening. Improving soft tissue swelling. Stable joint effusion. No periprosthetic fracture. Left TKA is evident. IMPRESSION IMPRESSION: No acute abnormality Senior Laboratory Technician: PSCB Transcribe Date/Time: Dec 04 2022 8:06A Dictated by : ASPEN PERALES MD This examination was interpreted and the report reviewed and electronically signed by: ASPEN PERALES MD on Dec 04 2022 8:10AM EST [facility] XR Knee AP and Lateral and M erchantsOrdered By: Ccf Provider on 12-04-2022 [facility] XR Knee AP and Lateral and M erchantson 12-02-2022 Radiology Study observation (narrative) [facility] LABORATORYOrdered By: Harshal Acosta on 12-01-2022 Blood Glucose Testing Reason Routine (12/01/22 12:03 PM) [facility] Work Phone: Glucose [Mass/Vol] 151 mg/dL Invalid Interpretation Code 82 - 115 mg/dL [facility] Work Phone: LABORATORYOrdered By: Anna Mohan on 12-01-2022 Glucose [Mass/Vol] 251 mg/dL Invalid Interpretation Code 82 - 115 mg/dL [facility] Work Phone: Glucose [Mass/Vol] 110 mg/dL Invalid Interpretation Code 82 - 115 mg/dL [facility] Work Phone: LABORATORYOrdered By: SYSTEM SYSTEM on 12-01-2022 Basophils (Bld) [#/Vol] 0.0 103/mcL Invalid Interpretation Code 0.0 - 0.3 10^3/mcL AH Workflow SS Basophils/100 WBC (Bld) 0.6 % Invalid Interpretation Code 0.0 - 2.5 % AH Workflow SS Calcium [Mass/Vol] 8.1 mg/dL Invalid Interpretation Code 8.7 - 10.4 mg/dL AH ADM SS Chloride [Moles/Vol] 106 mmol/L Invalid Interpretation Code 98 - 110 mEq/L ADM SS CO2 [Moles/Vol] 26 mmol/L Invalid Interpretation Code 22 - 32 mEq/L ADM SS Creatinine [Mass/Vol] 0.86 mg/dL Invalid Interpretation Code 0.50 - 1.20 mg/dL ADM SS Electrolyte Balance 8.0 mEq/L Invalid Interpretation Code 4.0 - 15.0 mEq/L ADM SS Eosinophils (Bld) [#/Vol] 0.3 103/mcL Invalid Interpretation Code 0.0 - 0.7 10^3/mcL Workflow SS Eosinophils/100 WBC (Bld) 4.6 % Invalid Interpretation Code 0.0 - 6.0 % Workflow SS Erythrocyte distribution width (RBC) [Ratio] 14.5 % Invalid Interpretation Code 11.5 - 15.5 % Workflow SS GFR/1.73 sq M.predicted among blacks MDRD (S/P/Bld) [Vol rate/Area] ml/min/1.73sqm Invalid Interpretation Code [employer] S Comment on above: Interpretive Data: GFR Population mean for , Non- Americans Ages 20-29 = 116 mL/min/1.73 sq.m. Ages 30-39 = 107 mL/min/1.73 sq.m. Ages 40-49 = 99 mL/min/1.73 sq.m. Ages 50-59 = 93 mL/min/1.73 sq.m. Ages 60-69 = 85 mL/min/1.73 sq.m. Ages 70+ = 75 mL/min/1.73 sq.m. Chronic Kidney Disease: Less than 60 mL/min/1.73 square meters End Stage Renal Disease: Less than 15 mL/min/1.73 square meters GFR/1.73 sq M.predicted among non-blacks MDRD (S/P/Bld) [Vol rate/Area] ml/min/1.73sqm Invalid Interpretation Code [employer] Chemistry S Comment on above: Interpretive Data: GFR Population mean for , Non- Americans Ages 20-29 = 116 mL/min/1.73 sq.m. Ages 30-39 = 107 mL/min/1.73 sq.m. Ages 40-49 = 99 mL/min/1.73 sq.m. Ages 50-59 = 93 mL/min/1.73 sq.m. Ages 60-69 = 85 mL/min/1.73 sq.m. Ages 70+ = 75 mL/min/1.73 sq.m. Chronic Kidney Disease: Less than 60 mL/min/1.73 square meters End Stage Renal Disease: Less than 15 mL/min/1.73 square meters Glucose [Mass/Vol] 127 mg/dL Invalid Interpretation Code 82 - 115 mg/dL ADM SS Hematocrit (Bld) [Volume fraction] 24.0 % Invalid Interpretation Code 34.0 - 46.0 % AH Workflow SS Hemoglobin (Bld) [Mass/Vol] 8.2 G/dL Invalid Interpretation Code 12.0 - 16.0 G/dL AH Workflow SS Lymphocytes (Bld) [#/Vol] 1.9 103/mcL Invalid Interpretation Code 0.9 - 4.3 10^3/mcL AH Workflow SS Lymphocytes/100 WBC (Bld) 25.8 % Invalid Interpretation Code 20.0 - 40.0 % AH Workflow SS MCH (RBC) [Entitic mass] 31.3 pg Invalid Interpretation Code 27.0 - 33.0 pg AH Workflow SS MCHC 34.3 G/dL Invalid Interpretation Code 32.0 - 36.0 G/dL AH Workflow SS MCV (RBC) [Entitic vol] 91.2 fL Invalid Interpretation Code 80.0 - 99.0 fL AH Workflow SS Monocytes (Bld) [#/Vol] 0.6 103/mcL Invalid Interpretation Code 0.1 - 1.4 10^3/mcL AH Workflow SS Monocytes/100 WBC (Bld) 7.6 % Invalid Interpretation Code 2.0 - 13.0 % AH Workflow SS Neutrophils (Bld) [#/Vol] 4.6 103/mcL Invalid Interpretation Code 2.3 - 8.1 10^3/mcL AH Workflow SS Neutrophils/100 WBC (Bld) 61.4 % Invalid Interpretation Code 50.0 - 75.0 % AH Workflow SS Platelet mean volume (Bld) [Entitic vol] 6.8 fL Invalid Interpretation Code 6.6 - 10.5 fL AH Workflow SS Platelets (Bld) [#/Vol] 310 103/mcL Invalid Interpretation Code 150 - 450 10^3/mcL AH Workflow SS Potassium [Moles/Vol] 4.0 mmol/L Invalid Interpretation Code 3.5 - 5.0 mEq/L ADM SS RBC (Bld) [#/Vol] 2.63 106/mcL Invalid Interpretation Code 4.10 - 5.30 10^6/mcL Workflow SS Sodium [Moles/Vol] 140 mmol/L Invalid Interpretation Code 136 - 145 mEq/L AH ADM SS Urea nitrogen [Mass/Vol] 10.0 mg/dL Invalid Interpretation Code 8.0 - 22.0 mg/dL AH ADM SS Urea nitrogen/Creatinin e [Mass ratio] 11.6 ratio Invalid Interpretation Code 10.0 - 22.0 ratio AH ADM SS WBC (Bld) [#/Vol] 7.5 103/mcL Invalid Interpretation Code 4.5 - 10.8 10^3/mcL Workflow SS LABORATORYOrdered By: Danuta Cedeno on 12-01-2022 Calcium.ionized (Bld) [Mass/Vol] 1.09 mmol/L Invalid Interpretation Code 1.12 - 1.32 mmol/L Auto Chem SS LABORATORYOrdered By: Buzz Drew on 11-30-2022 Blood Glucose Interventions Administered food/juice (11/30/22 4:37 PM) [facility] Work Phone: LABORATORYOrdered By: Arianna Veloz on 11-30-2022 Blood Glucose Testing Reason Routine (11/30/22 4:37 PM) [facility] Work Phone: LABORATORYOrdered By: SYSTEM SYSTEM on 11-30-2022 Basophils (Bld) [#/Vol] 0.0 103/mcL Invalid Interpretation Code 0.0 - 0.3 10^3/mcL Workflow SS Basophils/100 WBC (Bld) 0.4 % Invalid Interpretation Code 0.0 - 2.5 % Workflow SS Calcium [Mass/Vol] 8.1 mg/dL Invalid Interpretation Code 8.7 - 10.4 mg/dL ADM SS Chloride [Moles/Vol] 107 mmol/L Invalid Interpretation Code 98 - 110 mEq/L ADM SS CO2 [Moles/Vol] 28 mmol/L Invalid Interpretation Code 22 - 32 mEq/L ADM SS Creatinine [Mass/Vol] 0.91 mg/dL Invalid Interpretation Code 0.50 - 1.20 mg/dL AH ADM SS Electrolyte Balance 5.0 mEq/L Invalid Interpretation Code 4.0 - 15.0 mEq/L ADM SS Eosinophils (Bld) [#/Vol] 0.4 103/mcL Invalid Interpretation Code 0.0 - 0.7 10^3/mcL Workflow SS Eosinophils/100 WBC (Bld) 4.7 % Invalid Interpretation Code 0.0 - 6.0 % Workflow SS Erythrocyte distribution width (RBC) [Ratio] 14.8 % Invalid Interpretation Code 11.5 - 15.5 % Workflow SS GFR/1.73 sq M.predicted among blacks MDRD (S/P/Bld) [Vol rate/Area] ml/min/1.73sqm Invalid Interpretation Code Chemistry S Comment on above: Interpretive Data: GFR Population mean for , Non- Americans Ages 20-29 = 116 mL/min/1.73 sq.m. Ages 30-39 = 107 mL/min/1.73 sq.m. Ages 40-49 = 99 mL/min/1.73 sq.m. Ages 50-59 = 93 mL/min/1.73 sq.m. Ages 60-69 = 85 mL/min/1.73 sq.m. Ages 70+ = 75 mL/min/1.73 sq.m. Chronic Kidney Disease: Less than 60 mL/min/1.73 square meters End Stage Renal Disease: Less than 15 mL/min/1.73 square meters GFR/1.73 sq M.predicted among non-blacks MDRD (S/P/Bld) [Vol rate/Area] ml/min/1.73sqm Invalid Interpretation Code Chemistry S Comment on above: Interpretive Data: GFR Population mean for , Non- Americans Ages 20-29 = 116 mL/min/1.73 sq.m. Ages 30-39 = 107 mL/min/1.73 sq.m. Ages 40-49 = 99 mL/min/1.73 sq.m. Ages 50-59 = 93 mL/min/1.73 sq.m. Ages 60-69 = 85 mL/min/1.73 sq.m. Ages 70+ = 75 mL/min/1.73 sq.m. Chronic Kidney Disease: Less than 60 mL/min/1.73 square meters End Stage Renal Disease: Less than 15 mL/min/1.73 square meters Glucose [Mass/Vol] 86 mg/dL Invalid Interpretation Code 82 - 115 mg/dL ADM SS Hematocrit (Bld) [Volume fraction] 25.0 % Invalid Interpretation Code 34.0 - 46.0 % AH Workflow SS Hemoglobin (Bld) [Mass/Vol] 8.6 G/dL Invalid Interpretation Code 12.0 - 16.0 G/dL AH Workflow SS Lymphocytes (Bld) [#/Vol] 1.8 103/mcL Invalid Interpretation Code 0.9 - 4.3 10^3/mcL AH Workflow SS Lymphocytes/100 WBC (Bld) 20.6 % Invalid Interpretation Code 20.0 - 40.0 % AH Workflow SS MCH (RBC) [Entitic mass] 31.5 pg Invalid Interpretation Code 27.0 - 33.0 pg AH Workflow SS MCHC 34.4 G/dL Invalid Interpretation Code 32.0 - 36.0 G/dL AH Workflow SS MCV (RBC) [Entitic vol] 91.6 fL Invalid Interpretation Code 80.0 - 99.0 fL AH Workflow SS Monocytes (Bld) [#/Vol] 0.6 103/mcL Invalid Interpretation Code 0.1 - 1.4 10^3/mcL AH Workflow SS Monocytes/100 WBC (Bld) 7.1 % Invalid Interpretation Code 2.0 - 13.0 % AH Workflow SS Neutrophils (Bld) [#/Vol] 5.9 103/mcL Invalid Interpretation Code 2.3 - 8.1 10^3/mcL AH Workflow SS Neutrophils/100 WBC (Bld) 67.2 % Invalid Interpretation Code 50.0 - 75.0 % AH Workflow SS Platelet mean volume (Bld) [Entitic vol] 6.9 fL Invalid Interpretation Code 6.6 - 10.5 fL AH Workflow SS Platelets (Bld) [#/Vol] 271 103/mcL Invalid Interpretation Code 150 - 450 10^3/mcL AH Workflow SS Potassium [Moles/Vol] 4.4 mmol/L Invalid Interpretation Code 3.5 - 5.0 mEq/L AH ADM SS RBC (Bld) [#/Vol] 2.73 106/mcL Invalid Interpretation Code 4.10 - 5.30 10^6/mcL AH Workflow SS Sodium [Moles/Vol] 140 mmol/L Invalid Interpretation Code 136 - 145 mEq/L AH ADM SS Urea nitrogen [Mass/Vol] 11.0 mg/dL Invalid Interpretation Code 8.0 - 22.0 mg/dL AH ADM SS Urea nitrogen/Creatinin e [Mass ratio] 12.1 ratio Invalid Interpretation Code 10.0 - 22.0 ratio ADM SS WBC (Bld) [#/Vol] 8.8 103/mcL Invalid Interpretation Code 4.5 - 10.8 10^3/mcL Workflow SS LABORATORYOrdered By: Cindy Michaels on 11-30-2022 Calcium.ionized (Bld) [Mass/Vol] 1.09 mmol/L Invalid Interpretation Code 1.12 - 1.32 mmol/L Auto Chem SS LABORATORYOrdered By: Charity Shepherd on 11-29-2022 Blood Glucose Testing Reason Routine (11/29/22 4:13 PM) [facility] Work Phone: LABORATORYOrdered By: SYSTEM SYSTEM on 11-29-2022 Basophils (Bld) [#/Vol] 0.0 103/mcL Invalid Interpretation Code 0.0 - 0.3 10^3/mcL Workflow SS Basophils/100 WBC (Bld) 0.2 % Invalid Interpretation Code 0.0 - 2.5 % Workflow SS Calcium [Mass/Vol] 7.6 mg/dL Invalid Interpretation Code 8.7 - 10.4 mg/dL ADM SS Chloride [Moles/Vol] 106 mmol/L Invalid Interpretation Code 98 - 110 mEq/L ADM SS CO2 [Moles/Vol] 26 mmol/L Invalid Interpretation Code 22 - 32 mEq/L ADM SS Creatinine [Mass/Vol] 0.81 mg/dL Invalid Interpretation Code 0.50 - 1.20 mg/dL ADM SS Electrolyte Balance 5.0 mEq/L Invalid Interpretation Code 4.0 - 15.0 mEq/L ADM SS Eosinophils (Bld) [#/Vol] 0.3 103/mcL Invalid Interpretation Code 0.0 - 0.7 10^3/mcL Workflow SS Eosinophils/100 WBC (Bld) 2.9 % Invalid Interpretation Code 0.0 - 6.0 % Workflow SS Erythrocyte distribution width (RBC) [Ratio] 15.3 % Invalid Interpretation Code 11.5 - 15.5 % Workflow SS GFR/1.73 sq M.predicted among blacks MDRD (S/P/Bld) [Vol rate/Area] ml/min/1.73sqm Invalid Interpretation Code Chemistry S Comment on above: Interpretive Data: GFR Population mean for , Non- Americans Ages 20-29 = 116 mL/min/1.73 sq.m. Ages 30-39 = 107 mL/min/1.73 sq.m. Ages 40-49 = 99 mL/min/1.73 sq.m. Ages 50-59 = 93 mL/min/1.73 sq.m. Ages 60-69 = 85 mL/min/1.73 sq.m. Ages 70+ = 75 mL/min/1.73 sq.m. Chronic Kidney Disease: Less than 60 mL/min/1.73 square meters End Stage Renal Disease: Less than 15 mL/min/1.73 square meters GFR/1.73 sq M.predicted among non-blacks MDRD (S/P/Bld) [Vol rate/Area] ml/min/1.73sqm Invalid Interpretation Code Chemistry S Comment on above: Interpretive Data: GFR Population mean for , Non- Americans Ages 20-29 = 116 mL/min/1.73 sq.m. Ages 30-39 = 107 mL/min/1.73 sq.m. Ages 40-49 = 99 mL/min/1.73 sq.m. Ages 50-59 = 93 mL/min/1.73 sq.m. Ages 60-69 = 85 mL/min/1.73 sq.m. Ages 70+ = 75 mL/min/1.73 sq.m. Chronic Kidney Disease: Less than 60 mL/min/1.73 square meters End Stage Renal Disease: Less than 15 mL/min/1.73 square meters Glucose [Mass/Vol] 149 mg/dL Invalid Interpretation Code 82 - 115 mg/dL ADM SS Hematocrit (Bld) [Volume fraction] 24.6 % Invalid Interpretation Code 34.0 - 46.0 % Workflow SS Hemoglobin (Bld) [Mass/Vol] 8.6 G/dL Invalid Interpretation Code 12.0 - 16.0 G/dL Workflow SS Lymphocytes (Bld) [#/Vol] 1.7 103/mcL Invalid Interpretation Code 0.9 - 4.3 10^3/mcL Workflow SS Lymphocytes/100 WBC (Bld) 16.3 % Invalid Interpretation Code 20.0 - 40.0 % Workflow SS MCH (RBC) [Entitic mass] 31.5 pg Invalid Interpretation Code 27.0 - 33.0 pg Workflow SS MCHC 35.0 G/dL Invalid Interpretation Code 32.0 - 36.0 G/dL AH Workflow SS MCV (RBC) [Entitic vol] 90.2 fL Invalid Interpretation Code 80.0 - 99.0 fL AH Workflow SS Monocytes (Bld) [#/Vol] 0.7 103/mcL Invalid Interpretation Code 0.1 - 1.4 10^3/mcL AH Workflow SS Monocytes/100 WBC (Bld) 7.1 % Invalid Interpretation Code 2.0 - 13.0 % AH Workflow SS Neutrophils (Bld) [#/Vol] 7.7 103/mcL Invalid Interpretation Code 2.3 - 8.1 10^3/mcL AH Workflow SS Neutrophils/100 WBC (Bld) 73.5 % Invalid Interpretation Code 50.0 - 75.0 % AH Workflow SS Platelet mean volume (Bld) [Entitic vol] 6.8 fL Invalid Interpretation Code 6.6 - 10.5 fL AH Workflow SS Platelets (Bld) [#/Vol] 235 103/mcL Invalid Interpretation Code 150 - 450 10^3/mcL AH Workflow SS Potassium [Moles/Vol] 4.1 mmol/L Invalid Interpretation Code 3.5 - 5.0 mEq/L ADM SS RBC (Bld) [#/Vol] 2.73 106/mcL Invalid Interpretation Code 4.10 - 5.30 10^6/mcL AH Workflow SS Sodium [Moles/Vol] 137 mmol/L Invalid Interpretation Code 136 - 145 mEq/L ADM SS Troponin I.cardiac DL <= 0.01 ng/mL [Mass/Vol] 12.22 ng/L Invalid Interpretation Code 0.00 - 34.00 ng/L ADM SS Comment on above: Interpretive Data: I f the High Sensitive Troponin result is below the 99th percentile value (<45 ng/L) at the first blood draw, at least two additional blood samples should be drawn before results are interpreted as negative for AMI. Urea nitrogen [Mass/Vol] 12.0 mg/dL Invalid Interpretation Code 8.0 - 22.0 mg/dL ADM SS Urea nitrogen/Creatinin e [Mass ratio] 14.8 ratio Invalid Interpretation Code 10.0 - 22.0 ratio AH ADM SS WBC (Bld) [#/Vol] 10.5 103/mcL Invalid Interpretation Code 4.5 - 10.8 10^3/mcL Workflow SS LABORATORYOrdered By: Gene Goodwin on 11-28-2022 Osmolality (U) [Osmolality] 519 mosm/kg Invalid Interpretation Code 390 - 1090 mOsm/kg AH Manual Chem SS Sodium (U) [Moles/Vol] 140 mmol/L Invalid Interpretation Code AH ADM SS LABORATORYOrdered By: yMrna Woodall on 11-28-2022 RBC Product Ready RBC Ready for Pickup (11/28/22 10:04 AM) Invalid Interpretation Code AH BB Manual SS ABO and Rh group Nom (Bld) Blood group O Rh(D) positive Invalid Interpretation Code AH BB Auto SS Blood group antibody screen Ql Negative ABSC (11/28/22 5:44 AM) Invalid Interpretation Code AH BB Auto SS LABORATORYOrdered By: Shabnam Gonzalez on 11-28-2022 Lactate [Moles/Vol] 0.8 mmol/L Invalid Interpretation Code 0.2 - 2.0 mmol/L AH Auto Chem SS LABORATORYOrdered By: Kati Petit on 11-27-2022 RBC Product Ready RBC Ready for Pickup (11/27/22 7:06 PM) Invalid Interpretation Code AO BB SS aPTT Coag (PPP) [Time] 24.5 s Invalid Interpretation Code 25.0 - 35.0 seconds AO [facility] SS Comment on above: Interpretive Data: F or Heparin anticoagulation therapy, the recommended therapeutic range is: 50.6-87.4 seconds. Patients on heparin therapy may have an extreme result. Fibrin D-dimer DDU (PPP) [Mass/Vol] 607 ng/mL D-DU Invalid Interpretation Code 0 - 230 ng/mL D-DU AO [facility] SS Comment on above: Result Comment: Resu lts reported in D-DU ng/mL. Positive for D-dimer. A positive D-Dimer may occur in the following: DVT, PE, DIC, Trauma, Cancer, Sepsis, , Rheumatoid arthritis, Myocardial infarction and Cirrhosis. The presence of Rheumatoid Factor and HAMA (human mouse antibody) produces an overestimation of test results. Interpretive Data: T he result of the D-Dimer test should be evaluated in the context of all the clinical and laboratory data available. In those instances where the laboratory result does not agree with the clinical evaluation, additional tests should be performed accordingly. If the D-Dimer result is used to exclude DVT or PE, the recommended cutoff value is less than 230 ng/mL. The D-Dimer result should not be used alone to rule in DVT/PE, but should be used in conjunction with a clinical pretest probability (PTP)assessment model to exclude venous thromboembolism (VTE) in outpatients suspected of deep venous thrombosis (DVT) and pulmonary embolism (PE). Heparin dose (APTT) Unknown (11/27/22 1:25 PM) Invalid Interpretation Code AO Coagulation S INR Coag (PPP) [Relative time] 1.2 {INR} Invalid Interpretation Code AO [facility] SS Comment on above: Interpretive Data: Jame rodriguez [employer] (CHEST, 1992, [id number]) recommended therapeutic range for oral anticoagulant therapy is: LOW RISK: Prophylaxis of venous thrombosis INR: 2.0-3.0 Treatment of pulmonary embolism 2.0-3.0 Prevention of systemic embolism 2.0-3.0 HIGH RISK: Mechanical prosthetic valves 2.5-3.5 PT Coag (PPP) [Time] 13.4 s Invalid Interpretation Code 9.0 - 14.2 seconds AO [facility] SS LABORATORYOrdered By: Nilsa Ariza on 11-27-2022 Appearance (U) Clear (11/27/22 6:30 PM) Invalid Interpretation Code Clear AO Auto Urine SS Bilirubin Ql (U) Negative (11/27/22 6:30 PM) Invalid Interpretation Code Negative AO Auto Urine SS Color (U) Yellow (11/27/22 6:30 PM) Invalid Interpretation Code AO Auto Urine SS Glucose Test strip (U) [Mass/Vol] Negative Invalid Interpretation Code Negative AO Auto Urine SS Hemoglobin Auto test strip (U) [Mass/Vol] Negative (11/27/22 6:30 PM) Invalid Interpretation Code Negative AO Auto Urine SS Ketones Ql (U) Negative Invalid Interpretation Code Negative AO Auto Urine SS UA Leuk Est Negative (11/27/22 6:30 PM) Invalid Interpretation Code Negative AO Auto Urine SS UA Nitrite Negative (11/27/22 6:30 PM) Invalid Interpretation Code Negative AO Auto Urine SS UA pH 5.0 (11/27/22 6:30 PM) Invalid Interpretation Code 5.0 - 8.0 AO Auto Urine SS UA Protein Negative Invalid Interpretation Code Negative AO Auto Urine SS UA Spec Grav 1.010 *ABN* (11/27/22 6:30 PM) Invalid Interpretation Code 1.015-1.02 5 AO Auto Urine SS UA Specimen Type Void (11/27/22 6:30 PM) Invalid Interpretation Code AO Auto Urine SS UA Urobilinogen 0.2 E.U./dL Invalid Interpretation Code 0.2-1.0 AO Auto Urine SS LABORATORYOrdered By: SYSTEM SYSTEM on 11-27-2022 Hematocrit (Bld) [Volume fraction] 20.1 % Invalid Interpretation Code 37.0 - 47.0 % AO Workflow SS Hemoglobin (Bld) [Mass/Vol] 6.8 G/dL Invalid Interpretation Code 12.0 - 16.0 G/dL AO Workflow SS Lactate [Moles/Vol] 0.7 mmol/L Invalid Interpretation Code 0.4 - 2.0 mmol/L AO ADM SS Basophil, Absolute 0.0 103/mcL Invalid Interpretation Code 0.0 - 0.2 10^3/mcL AO Workflow SS Basophils/100 WBC (Bld) 0.2 % Invalid Interpretation Code 0.0 - 2.5 % AO Workflow SS Calcium [Mass/Vol] 8.6 mg/dL Invalid Interpretation Code 8.4 - 10.2 mg/dL AO ADM SS Chloride [Moles/Vol] 96 mmol/L Invalid Interpretation Code 98 - 107 mmol/L AO ADM SS CO2 [Moles/Vol] 24 mmol/L Invalid Interpretation Code 23 - 31 mmol/L AO ADM SS Creatinine [Mass/Vol] 1.92 mg/dL Invalid Interpretation Code 0.55 - 1.02 mg/dL AO ADM SS Electrolyte Balance 7.0 mEq/L Invalid Interpretation Code 4.0 - 15.0 mEq/L AO ADM SS Eosinophil, Absolute 0.0 103/mcL Invalid Interpretation Code 0.0 - 0.4 10^3/mcL AO Workflow SS Eosinophils/100 WBC (Bld) 0.0 % Invalid Interpretation Code 0.0 - 7.0 % AO Workflow SS Erythrocyte distribution width (RBC) [Ratio] 14.2 % Invalid Interpretation Code 11.5 - 14.5 % AO Workflow SS GFR/1.73 sq M.predicted among blacks MDRD (S/P/Bld) [Vol rate/Area] 31 ml/min/1.73sqm Invalid Interpretation Code AO Chemistry S Comment on above: Interpretive Data: GFR Population mean for , Non- Americans Ages 20-29 = 116 mL/min/1.73 sq.m. Ages 30-39 = 107 mL/min/1.73 sq.m. Ages 40-49 = 99 mL/min/1.73 sq.m. Ages 50-59 = 93 mL/min/1.73 sq.m. Ages 60-69 = 85 mL/min/1.73 sq.m. Ages 70+ = 75 mL/min/1.73 sq.m. Chronic Kidney Disease: Less than 60 mL/min/1.73 square meters End Stage Renal Disease: Less than 15 mL/min/1.73 square meters GFR/1.73 sq M.predicted among non-blacks MDRD (S/P/Bld) [Vol rate/Area] 26 ml/min/1.73sqm Invalid Interpretation Code AO Chemistry S Comment on above: Interpretive Data: GFR Population mean for , Non- Americans Ages 20-29 = 116 mL/min/1.73 sq.m. Ages 30-39 = 107 mL/min/1.73 sq.m. Ages 40-49 = 99 mL/min/1.73 sq.m. Ages 50-59 = 93 mL/min/1.73 sq.m. Ages 60-69 = 85 mL/min/1.73 sq.m. Ages 70+ = 75 mL/min/1.73 sq.m. Chronic Kidney Disease: Less than 60 mL/min/1.73 square meters End Stage Renal Disease: Less than 15 mL/min/1.73 square meters Glucose [Mass/Vol] 270 mg/dL Invalid Interpretation Code 83 - 110 mg/dL AO ADM SS Hematocrit (Bld) [Volume fraction] 25.4 % Invalid Interpretation Code 37.0 - 47.0 % AO Workflow SS Hemoglobin (Bld) [Mass/Vol] 8.4 G/dL Invalid Interpretation Code 12.0 - 16.0 G/dL AO Workflow SS Lactate [Moles/Vol] 2.1 mmol/L Invalid Interpretation Code 0.4 - 2.0 mmol/L AO ADM SS Lymphocyte, Absolute 2.6 103/mcL Invalid Interpretation Code 0.8 - 3.9 10^3/mcL AO Workflow SS Lymphocytes/100 WBC (Bld) 11.4 % Invalid Interpretation Code 10.0 - 50.0 % AO Workflow SS MCH (RBC) [Entitic mass] 30.6 pg Invalid Interpretation Code 27.0 - 31.2 pg AO Workflow SS MCHC 33.2 G/dL Invalid Interpretation Code 33.0 - 37.0 G/dL AO Workflow SS MCV (RBC) [Entitic vol] 92.0 fL Invalid Interpretation Code 80.0 - 94.0 fL AO Workflow SS Monocyte distribution width Auto (Bld) [Entitic vol] 23.93 1 Invalid Interpretation Code 0.00 - 20.00 AO Workflow SS Comment on above: Result Comment: For adults in ED, MDW>20.0 may be associated with a higher risk of sepsis during the first 12hrs of hospital admission Monocyte, Absolute 1.3 103/mcL Invalid Interpretation Code 0.2 - 1.0 10^3/mcL AO Workflow SS Monocytes/100 WBC (Bld) 5.8 % Invalid Interpretation Code 1.7 - 13.0 % AO Workflow SS Neutrophil, Absolute 18.8 103/mcL Invalid Interpretation Code 2.9 - 6.2 10^3/mcL AO Workflow SS Neutrophils/100 WBC (Bld) 82.6 % Invalid Interpretation Code 37.0 - 80.0 % AO Workflow SS Platelet mean volume (Bld) [Entitic vol] 7.2 fL Invalid Interpretation Code 7.4 - 10.4 fL AO Workflow SS Platelets (Bld) [#/Vol] 457 103/mcL Invalid Interpretation Code 130 - 400 10^3/mcL AO Workflow SS Potassium [Moles/Vol] 4.6 mmol/L Invalid Interpretation Code 3.5 - 5.1 mmol/L AO ADM SS RBC (Bld) [#/Vol] 2.76 106/mcL Invalid Interpretation Code 4.20 - 5.40 10^6/mcL AO Workflow SS Sodium [Moles/Vol] 127 mmol/L Invalid Interpretation Code 136 - 145 mmol/L AO ADM SS Urea nitrogen [Mass/Vol] 37 mg/dL Invalid Interpretation Code 7 - 18 mg/dL AO ADM SS Urea nitrogen/Creatinin e [Mass ratio] 19 ratio Invalid Interpretation Code 7 - 27 ratio AO ADM SS WBC (Bld) [#/Vol] 22.8 103/mcL Invalid Interpretation Code 4.6 - 10.8 10^3/mcL AO Workflow SS LABORATORYOrdered By: Mao Salinas on 11-27-2022 ABO/Rh Interp Positive Invalid Interpretation Code AO BB SS Antibody Screen Gel Negative ABSC (11/27/22 12:26 PM) Invalid Interpretation Code AO BB SS LABORATORYOrdered By: Toi Caicedo on 11-26-2022 Glucose [Mass/Vol] 132 mg/dL Invalid Interpretation Code 82 - 115 mg/dL [facility] Work Phone: LABORATORYOrdered By: SYSTEM SYSTEM on 11-12-2022 Basophils (Bld) [#/Vol] 0.1 103/mcL Invalid Interpretation Code 0.0 - 0.3 10^3/mcL Workflow SS Basophils/100 WBC (Bld) 0.8 % Invalid Interpretation Code 0.0 - 2.5 % Workflow SS Calcium [Mass/Vol] 9.5 mg/dL Invalid Interpretation Code 8.7 - 10.4 mg/dL ADM SS Chloride [Moles/Vol] 102 mmol/L Invalid Interpretation Code 98 - 110 mEq/L ADM SS CO2 [Moles/Vol] 28 mmol/L Invalid Interpretation Code 22 - 32 mEq/L ADM SS Creatinine [Mass/Vol] 0.94 mg/dL Invalid Interpretation Code 0.50 - 1.20 mg/dL ADM SS Electrolyte Balance 5.0 mEq/L Invalid Interpretation Code 4.0 - 15.0 mEq/L ADM SS Eosinophils (Bld) [#/Vol] 0.2 103/mcL Invalid Interpretation Code 0.0 - 0.7 10^3/mcL Workflow SS Eosinophils/100 WBC (Bld) 3.2 % Invalid Interpretation Code 0.0 - 6.0 % Workflow SS Erythrocyte distribution width (RBC) [Ratio] 14.0 % Invalid Interpretation Code 11.5 - 15.5 % Workflow SS GFR/1.73 sq M.predicted among blacks MDRD (S/P/Bld) [Vol rate/Area] ml/min/1.73sqm Invalid Interpretation Code Chemistry S Comment on above: Interpretive Data: GFR Population mean for , Non- Americans Ages 20-29 = 116 mL/min/1.73 sq.m. Ages 30-39 = 107 mL/min/1.73 sq.m. Ages 40-49 = 99 mL/min/1.73 sq.m. Ages 50-59 = 93 mL/min/1.73 sq.m. Ages 60-69 = 85 mL/min/1.73 sq.m. Ages 70+ = 75 mL/min/1.73 sq.m. Chronic Kidney Disease: Less than 60 mL/min/1.73 square meters End Stage Renal Disease: Less than 15 mL/min/1.73 square meters GFR/1.73 sq M.predicted among non-blacks MDRD (S/P/Bld) [Vol rate/Area] 59 ml/min/1.73sqm Invalid Interpretation Code Chemistry S Comment on above: Interpretive Data: GFR Population mean for , Non- Americans Ages 20-29 = 116 mL/min/1.73 sq.m. Ages 30-39 = 107 mL/min/1.73 sq.m. Ages 40-49 = 99 mL/min/1.73 sq.m. Ages 50-59 = 93 mL/min/1.73 sq.m. Ages 60-69 = 85 mL/min/1.73 sq.m. Ages 70+ = 75 mL/min/1.73 sq.m. Chronic Kidney Disease: Less than 60 mL/min/1.73 square meters End Stage Renal Disease: Less than 15 mL/min/1.73 square meters Glucose [Mass/Vol] 76 mg/dL Invalid Interpretation Code 82 - 115 mg/dL ADM SS Hematocrit (Bld) [Volume fraction] 37.6 % Invalid Interpretation Code 34.0 - 46.0 % Workflow SS Hemoglobin (Bld) [Mass/Vol] 12.6 G/dL Invalid Interpretation Code 12.0 - 16.0 G/dL Workflow SS Lymphocytes (Bld) [#/Vol] 2.1 103/mcL Invalid Interpretation Code 0.9 - 4.3 10^3/mcL Workflow SS Lymphocytes/100 WBC (Bld) 27.2 % Invalid Interpretation Code 20.0 - 40.0 % Workflow SS MCH (RBC) [Entitic mass] 31.0 pg Invalid Interpretation Code 27.0 - 33.0 pg Workflow SS MCHC 33.6 G/dL Invalid Interpretation Code 32.0 - 36.0 G/dL Workflow SS MCV (RBC) [Entitic vol] 92.2 fL Invalid Interpretation Code 80.0 - 99.0 fL Workflow SS Monocytes (Bld) [#/Vol] 0.5 103/mcL Invalid Interpretation Code 0.1 - 1.4 10^3/mcL Workflow SS Monocytes/100 WBC (Bld) 6.3 % Invalid Interpretation Code 2.0 - 13.0 % AH Workflow SS Neutrophils (Bld) [#/Vol] 4.8 103/mcL Invalid Interpretation Code 2.3 - 8.1 10^3/mcL AH Workflow SS Neutrophils/100 WBC (Bld) 62.5 % Invalid Interpretation Code 50.0 - 75.0 % AH Workflow SS Platelet mean volume (Bld) [Entitic vol] 6.7 fL Invalid Interpretation Code 6.6 - 10.5 fL AH Workflow SS Platelets (Bld) [#/Vol] 441 103/mcL Invalid Interpretation Code 150 - 450 10^3/mcL AH Workflow SS Potassium [Moles/Vol] 4.4 mmol/L Invalid Interpretation Code 3.5 - 5.0 mEq/L AH ADM SS RBC (Bld) [#/Vol] 4.07 106/mcL Invalid Interpretation Code 4.10 - 5.30 10^6/mcL AH Workflow SS Sodium [Moles/Vol] 135 mmol/L Invalid Interpretation Code 136 - 145 mEq/L AH ADM SS Urea nitrogen [Mass/Vol] 10.0 mg/dL Invalid Interpretation Code 8.0 - 22.0 mg/dL AH ADM SS Urea nitrogen/Creatinin e [Mass ratio] 10.6 ratio Invalid Interpretation Code 10.0 - 22.0 ratio AH ADM SS WBC (Bld) [#/Vol] 7.7 103/mcL Invalid Interpretation Code 4.5 - 10.8 10^3/mcL AH Workflow SS XR Knee [facility] IMPRESSION: Interval right total knee arthroplasty 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. IMPRESSION: Senior Laboratory Technician: SEFERINO Transcribe Date/Time: Oct 03 2022 1:26P Dictated by : ELI WINTERS DO This examination was interpreted and the report reviewed and electronically signed by: ELI WINTERS DO on Oct 03 2022 1:27PM [facility] * * *Final Report* * * DATE OF EXAM: Sep 30 2022 2:11PM FINA [id number] - XR KNEE 3V AP/LAT/MERCHANT RT / PROCEDURE REASON: multiple diagnoses * * * * Physician Interpretation * * * * EXAMINATION: XR KNEE 3V AP/LAT/MERCHANT RT CLINICAL HISTORY: 1ST POST OP FOLLOW-UP FOR RIGHT KNEE ; SURGERY 09/15 Chronic pain of right knee Chronic pain of right knee Technique: XR KNEE 3V AP/LAT/MERCHANT RT -- RIGHT with 3 views on 3 images Comparison: 12/04/2021 RESULT: Interval right total knee arthroplasty with satisfactory alignment. No evidence of hardware failure or loosening. No fracture or dislocation. Moderate knee effusion. Anterior knee soft tissue swelling. [facility] Provider, Evelyn knowles Bostwick - 10/03/2022 * * *Final Report* * * DATE OF EXAM: Sep 30 2022 2:11PM FINA 5209 - XR KNEE 3V AP/LAT/MERCHANT RT / PROCEDURE REASON: multiple diagnoses * * * * Physician Interpretation * * * * EXAMINATION: XR KNEE 3V AP/LAT/MERCHANT RT CLINICAL HISTORY: 1ST POST OP FOLLOW-UP FOR RIGHT KNEE ; SURGERY 09/15 Chronic pain of right knee Chronic pain of right knee Technique: XR KNEE 3V AP/LAT/MERCHANT RT -- RIGHT with 3 views on 3 images Comparison: 12/04/2021 RESULT: Interval right total knee arthroplasty with satisfactory alignment. No evidence of hardware failure or loosening. No fracture or dislocation. Moderate knee effusion. Anterior knee soft tissue swelling. IMPRESSION IMPRESSION: Interval right total knee arthroplasty 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. IMPRESSION: Senior Laboratory Technician: PSCB Transcribe Date/Time: Oct 03 2022 1:26P Dictated by : ELI WINTERS DO This examination was interpreted and the report reviewed and electronically signed by: ELI WINTERS DO on Oct 03 2022 1:27PM EST [facility] XR Knee AP and Lateral and M erchantsOrdered By: Ccf Provider on 10-03-2022 [facility] XR Knee AP and Lateral and M erchantson 09-30-2022 Radiology Study observation (narrative) [facility] No Panel Informationon 09-[address] [facility] [address] KNEE WO IVCON RTon 2022 [facility] CBC W Auto Differential pane l (Bld)on 07-29-2022 Basophils (Bld) [#/Vol] 0.11 10*3/uL High <0.11 k/uL [facility] Basophils/100 WBC (Bld) 1.4 % [facility] Differential cell count method Nom (Bld) Auto [facility] Eosinophils (Bld) [#/Vol] 0.36 10*3/uL <0.46 k/uL [facility] Eosinophils/100 WBC (Bld) 4.5 % [facility] Erythrocyte distribution width (RBC) [Ratio] 13.2 % 11.5 - 15.0 % [facility] Hematocrit (Bld) [Volume fraction] 35.9 % Low 36.0 - 46.0 % [facility] Hemoglobin (Bld) [Mass/Vol] 11.4 g/dL Low 11.5 - 15.5 g/dL [facility] Immature granulocytes (Bld) [#/Vol] 0.05 10*3/uL <0.10 k/uL [facility] Immature granulocytes/100 WBC (Bld) 0.6 % [facility] Lymphocytes (Bld) [#/Vol] 2.24 10*3/uL 1.00 - 4.00 k/uL [facility] Lymphocytes/100 WBC (Bld) 28.0 % [facility] MCH (RBC) [Entitic mass] 31.7 pg 26.0 - 34.0 pg [facility] MCHC (RBC) [Mass/Vol] 31.8 g/dL 30.5 - 36.0 g/dL [facility] MCV (RBC) [Entitic vol] 99.7 fL 80.0 - 100.0 fL [facility] Monocytes (Bld) [#/Vol] 0.62 10*3/uL <0.87 k/uL [facility] Monocytes/100 WBC (Bld) 7.8 % [facility] Neutrophils (Bld) [#/Vol] 4.62 10*3/uL 1.45 - 7.50 k/uL [facility] Neutrophils/100 WBC (Bld) 57.7 % [facility] Nucleated RBC (Bld) [#/Vol] <0.01 k/uL [facility] Nucleated RBC/100 WBC (Bld) [Ratio] 0.0 /100 WBC [facility] Platelet mean volume (Bld) [Entitic vol] 8.4 fL Low 9.0 - 12.7 fL [facility] Platelets (Bld) [#/Vol] 687 10*3/uL High 150 - 400 k/uL [facility] RBC (Bld) [#/Vol] 3.60 10*6/uL Low 3.90 - 5.20 m/uL [facility] WBC (Bld) [#/Vol] 8.00 10*3/uL 3.70 - 11.00 k/uL [facility] HbA1c (Bld)on 07-29-2022 Average glucose Estimated from glycated hemoglobin (Bld) [Mass/Vol] 111 mg/dL [facility] HbA1c (Bld) [Mass fraction] 5.5 % 4.3 - 5.6 % [facility] XR Hip - right AP and Latera jose miguel 07-23-2022 IMPRESSION: Stable right total hip arthroplasty Senior Laboratory Technician: SEFERINO Transcribe Date/Time: Jul 23 2022 8:13A Dictated by : DESHAUN WHITAKER DO This examination was interpreted and the report reviewed and electronically signed by: DESHAUN WHITAKER DO on Jul 23 2022 8:16AM [facility] * * *Final Report* * * DATE OF EXAM: Jul 22 2022 1:47PM FINA 5280 - XR HIP 2V AP/LAT RT / PROCEDURE REASON: M25.551-Pain in right hip * * * * Physician Interpretation * * * * EXAM(s): XR HIP 2V AP/LAT RT EXAM DATE/TIME: 07/22/2022 1:47 PM HISTORY: 72 years old Clinical information: Pain in right hip post op eval AP pelvis, weightbearing when possible, crosstable TECHNIQUE: Images: XR HIP 2V AP/LAT RT Comparison: Portable pelvis 07/07/2022. RESULT: Findings: The components of the RIGHT total hip arthroplasty are in good alignment with the respective bones and each other. There is no evidence of loosening of the components. Generator for an neurostimulator overlies the area medial to the RIGHT acetabulum.. Tip of the neural stimulating lead terminates projecting over the RIGHT side of the sacrum/coccyx Bone density appears well-preserved. No fractures or dislocations are seen. [facility] Provider, Evelyn Smith - 07/23/2022 * * *Final Report* * * DATE OF EXAM: Jul 22 2022 1:47PM FINA 5280 - XR HIP 2V AP/LAT RT / PROCEDURE REASON: M25.551-Pain in right hip * * * * Physician Interpretation * * * * EXAM(s): XR HIP 2V AP/LAT RT EXAM DATE/TIME: 07/22/2022 1:47 PM HISTORY: 72 years old Clinical information: Pain in right hip post op eval AP pelvis, weightbearing when possible, crosstable TECHNIQUE: Images: XR HIP 2V AP/LAT RT Comparison: Portable pelvis 07/07/2022. RESULT: Findings: The components of the RIGHT total hip arthroplasty are in good alignment with the respective bones and each other. There is no evidence of loosening of the components. Generator for an neurostimulator overlies the area medial to the RIGHT acetabulum.. Tip of the neural stimulating lead terminates projecting over the RIGHT side of the sacrum/coccyx Bone density appears well-preserved. No fractures or dislocations are seen. IMPRESSION IMPRESSION: Stable right total hip arthroplasty Senior Laboratory Technician: SEFERINO Transcribe Date/Time: Jul 23 2022 8:13A Dictated by : DESHAUN WHITAKER DO This examination was interpreted and the report reviewed and electronically signed by: DESHAUN WHITAKER DO on Jul 23 2022 8:16AM EST [facility] XR Hip - right AP and Latera lOrdered By: Ccf Provider on 07-23-2022 [facility] XR Hip - right AP and Latera jose miguel 07-22-2022 Radiology Study observation (narrative) [facility] CT HIP WO IVCON RIGHTon 05-22 [facility] XR SHOULDER GENERAL 3V OR MO RE AP/TRUE AP/OTHER RIGHTon 06-09-2022 [facility] XR Shoulder - right 3 Viewso n 06-09-2022 IMPRESSION: Question able subluxation of the acromioclavicular joint. No acute fracture seen. Degenerative changes as described above. Senior Laboratory Technician: [facility]ING[facility]ristobal Transcribe Date/Time: Jun 09 2022 4:55P Dictated by : DONA DOHERTY MD This examination was interpreted and the report reviewed and electronically signed by: DONA DOHERTY MD on Jun 09 2022 4:58PM [facility] * * *Final Report* * * DATE OF EXAM: Jun 09 2022 4:48PM WOX 5253 - XR SHLDR >/=3V AP/REGINA AP/OTHR RT / PROCEDURE REASON: Fall, initial encounter * * * * Physician Interpretation * * * * EXAM TITLE: XR SHLDR >/=3V AP/REGINA AP/OTHR RT EXAM DATE/TIME: 06/09/2022 4:48 PM COMPARISON: None. CLINICAL INDICATION/HISTORY: Fall. TECHNIQUE: AP, true AP and axillary views of the right shoulder are presented FINDINGS: No acute fractures seen. There is questionable subluxation of the acromioclavicular joint, with osteophyte formation. The glenohumeral joint space is maintained, with minimal osteophyte formation. Normal acromiohumeral interval. The mineralization of the bones is normal. There is no significant soft tissue swelling. DIVISION OF RADIOLOGY Provider, [facility] - 06/09/2022 * * *Final Report* * * DATE OF EXAM: Jun 09 2022 4:48PM WOX 5253 - XR SHLDR >/=3V AP/REGINA AP/OTHR RT / PROCEDURE REASON: Fall, initial encounter * * * * Physician Interpretation * * * * EXAM TITLE: XR SHLDR >/=3V AP/REGINA AP/OTHR RT EXAM DATE/TIME: 06/09/2022 4:48 PM COMPARISON: None. CLINICAL INDICATION/HISTORY: Fall. TECHNIQUE: AP, true AP and axillary views of the right shoulder are presented FINDINGS: No acute fractures seen. There is questionable subluxation of the acromioclavicular joint, with osteophyte formation. The glenohumeral joint space is maintained, with minimal osteophyte formation. Normal acromiohumeral interval. The mineralization of the bones is normal. There is no significant soft tissue swelling. IMPRESSION IMPRESSION: Questionable subluxation of the acromioclavicular joint. No acute fracture seen. Degenerative changes as described above. Senior Laboratory Technician: PSCB Transcribe Date/Time: Jun 09 2022 4:55P Dictated by : DONA DOHERTY MD This examination was interpreted and the report reviewed and electronically signed by: DONA DOHERTY MD on Jun 09 2022 4:58PM EST [facility] Radiology Study observation (narrative) [facility] XR Shoulder - right 3 ViewsO rdered By: Ccf Provider on 06-09-2022 [facility] Basic metabolic 2000 panelon 05-29-2022 Anion gap [Moles/Vol] 10 mmol/L 9 - 18 mmol/L [facility] Calcium [Mass/Vol] 9.6 mg/dL 8.5 - 10. 2 mg/dL [facility] Chloride [Moles/Vol] 100 mmol/L 97 - 105 mmol/L [facility] CO2 [Moles/Vol] 26 mmol/L 22 - 30 mmol/L [facility] Creatinine [Mass/Vol] 1.07 mg/dL High 0.58 - 0.96 mg/dL [facility] Estimated Glomerular Filtration Rate 56 mL/min/1.73m Low >=60 mL/min/1.7 3m [facility] Glucose [Mass/Vol] 86 mg/dL 74 - 99 mg/dL [facility] Potassium [Moles/Vol] 4.5 mmol/L 3.7 - 5.1 mmol/L [facility] Sodium [Moles/Vol] 136 mmol/L 136 - 144 mmol/L [facility] Urea nitrogen [Mass/Vol] 12 mg/dL 7 - 21 mg/dL [facility] CBC W Auto Differential pane l (Bld)on 05-29-2022 Basophils (Bld) [#/Vol] 0.10 10*3/uL <0.11 k/uL [facility] Basophils/100 WBC (Bld) 1.2 % [facility] Differential cell count method Nom (Bld) Auto [facility] Eosinophils (Bld) [#/Vol] 0.32 10*3/uL <0.46 k/uL [facility] Eosinophils/100 WBC (Bld) 3.9 % [facility] Erythrocyte distribution width (RBC) [Ratio] 13.3 % 11.5 - 15.0 % [facility] Hematocrit (Bld) [Volume fraction] 38.8 % 36.0 - 46.0 % [facility] Hemoglobin (Bld) [Mass/Vol] 13.0 g/dL 11.5 - 15.5 g/dL [facility] Immature granulocytes (Bld) [#/Vol] <0.10 k/uL [facility] Immature granulocytes/100 WBC (Bld) 0.2 % [facility] Lymphocytes (Bld) [#/Vol] 2.48 10*3/uL 1.00 - 4.00 k/uL [facility] Lymphocytes/100 WBC (Bld) 30.6 % [facility] MCH (RBC) [Entitic mass] 31.9 pg 26.0 - 34.0 pg [facility] MCHC (RBC) [Mass/Vol] 33.5 g/dL 30.5 - 36.0 g/dL [facility] MCV (RBC) [Entitic vol] 95.3 fL 80.0 - 100.0 fL [facility] Monocytes (Bld) [#/Vol] 0.47 10*3/uL <0.87 k/uL [facility] Monocytes/100 WBC (Bld) 5.8 % [facility] Neutrophils (Bld) [#/Vol] 4.72 10*3/uL 1.45 - 7.50 k/uL [facility] Neutrophils/100 WBC (Bld) 58.3 % [facility] Nucleated RBC (Bld) [#/Vol] <0.01 k/uL [facility] Nucleated RBC/100 WBC (Bld) [Ratio] 0.0 /100 WBC [facility] Platelet mean volume (Bld) [Entitic vol] 9.4 fL 9.0 - 12.7 fL [facility] Platelets (Bld) [#/Vol] 413 10*3/uL High 150 - 400 k/uL [facility] RBC (Bld) [#/Vol] 4.07 10*6/uL 3.90 - 5.20 m/uL [facility] WBC (Bld) [#/Vol] 8.11 10*3/uL 3.70 - 11.00 k/uL [facility] No Panel Informationon 05-29 [facility] TYPE AND SCREEN,30 DAYon ABO O [facility] HIstorical Ab Scr Status Negative [facility] Rh Nom (Bld) Positive [facility] XR Pelvis and Hip - right AP and Lateral frogon 04-25-2022 IMPRESSION: Stable i nternally fixated femoral neck fracture. Senior Laboratory Technician: PSCB Transcribe Date/Time: Apr 25 2022 1:15P Dictated by : ASPEN PERALES MD This examination was interpreted and the report reviewed and electronically signed by: ASPEN PERALES MD on Apr 25 2022 1:17PM [facility] * * *Final Report* * * DATE OF EXAM: Apr 22 2022 4:19PM FINA [id number] - XR HIP 3V PELV+ AP/LAT RT / PROCEDURE REASON: S72.001A-Hip fracture requiring operative repair, right, closed, initial encount * * * * Physician Interpretation * * * * PROCEDURE: Pelvis and right hip INDICATION: Hip fracture requiring operative repair, right, closed, initial encounter (HCC) .pain in right hip TECHNIQUE: XR HIP 3V PELV+ AP/LAT RT COMPARISON: 01/02/2022 FINDINGS: Stable 3 partially threaded screws in the right femoral head and neck. Stable near anatomically aligned femoral neck fracture with mild impaction. Fracture line is not clearly evident. Bilateral hip osteoarthrosis, right greater than left and degenerative change in the lower lumbar spine. Spinal stimulator device overlies the right pelvis. No acute fracture. [facility] Provider, [facility] - 04/25/2022 * * *Final Report* * * DATE OF EXAM: Apr 22 2022 4:19PM FINA [id number] - XR HIP 3V PELV+ AP/LAT RT / PROCEDURE REASON: S72.001A-Hip fracture requiring operative repair, right, closed, initial encount * * * * Physician Interpretation * * * * PROCEDURE: Pelvis and right hip INDICATION: Hip fracture requiring operative repair, right, closed, initial encounter (HCC) .pain in right hip TECHNIQUE: XR HIP 3V PELV+ AP/LAT RT COMPARISON: 01/02/2022 FINDINGS: Stable 3 partially threaded screws in the right femoral head and neck. Stable near anatomically aligned femoral neck fracture with mild impaction. Fracture line is not clearly evident. Bilateral hip osteoarthrosis, right greater than left and degenerative change in the lower lumbar spine. Spinal stimulator device overlies the right pelvis. No acute fracture. IMPRESSION IMPRESSION: Stable internally fixated femoral neck fracture. Senior Laboratory Technician: PSCB Transcribe Date/Time: Apr 25 2022 1:15P Dictated by : ASPEN PERALES MD This examination was interpreted and the report reviewed and electronically signed by: ASPEN PERALES MD on Apr 25 2022 1:17PM [facility] XR Pelvis and Hip - right AP and Lateral frogOrdered By: Ccf Provider on 04-25-2022 [facility] XR Pelvis and Hip - right AP and Lateral frogon 04-22-2022 Radiology Study observation (narrative) [facility] SURGICAL PATHOLOGYon 023 Case Report Surgical Pathology R eport Case: [id number] Authorizing Provider: Keke Toscano MD Collected: 04/02/2022 07:45 AM Ordering Location: Ambulatory Surgery Received: 04/02/2022 03:45 PM Pathologist: Michaelle Lewis MD Specimens: A) - ANTRUM (STOMACH) BIOPSY, Stomach pouch bx for h/h B) - ESOPHAGOGASTRIC JUNCTION BIOPSY, GE junction bx [facility] FINAL DIAGNOSIS A. Stomach, antrum, biopsy: - Gastric oxyntic mucosa with changes consistent with proton pump inhibitor effect. - No morphological evidence of Helicobacter pylori organisms. B. Esophagogastric junction, biopsy: - Squamous epithelium with no significant diagnostic alteration. - Inflamed gastric cardia-type mucosa. - No evidence of intestinal metaplasia or dysplasia. [facility] Gross Description A. ANTRUM (STOMACH) BIOPSY Received in formalin is one piece of , soft tissue measuring 0.7 x 0.2 x 0.2 cm. Totally submitted in one cassette. B. ESOPHAGOGASTRIC JUNCTION BIOPSY Received in formalin are two pieces of , soft tissue aggregating to 0.8 x 0.2 x 0.2 cm. Totally submitted in one cassette. Gross examination performed at [facility], [facility] [place] [address] TTN 04/02/2022 10:56 PM [facility] Performing Lab Diagnostic interpret ation performed at [facility], [facility] [place] [id number] CLIA# [id number] Tongue Lining Stitcher: Jorge Stevenson M.D. [facility] COLONOSCOPY (THERAPEUTIC)on 04-02-2022 [facility] EGD DIAGNOSTICon 04-02-2022 [facility] XR CHEST 2V FRONTAL/LATon [facility] XR Chest PA and Lateralon IMPRESSION: No acute radiographic abnormality. Senior Laboratory Technician: PSCB Transcribe Date/Time: Mar 21 2022 9:33A Dictated by : SAIMA BARROSO MD This examination was interpreted and the report reviewed and electronically signed by: SAIMA BARROSO MD on Mar 21 2022 9:36AM [facility] DIVISION OF RADIOLOGY * * *Final Report* * * DATE OF EXAM: Dec 30 2022 9:23AM WOX [id number] - XR CHEST 2V FRONTAL/LAT / PROCEDURE REASON: Acute cough * * * * Physician Interpretation * * * * EXAMINATION: CHEST RADIOGRAPH (2 VIEW FRONTAL & LATERAL) CLINICAL HISTORY: Acute cough MQ: XC2_6 EXAM DATE/TIME: 03/21/2022 9:23 AM COMPARISON: Chest x-ray 11/17/2021 RESULT: Lines, tubes, and devices: None. Lungs and pleura: No consolidation. No lung mass. No pleural effusion. No pneumothorax. Cardiomediastinal silhouette: Normal cardiomediastinal silhouette. Bones and soft tissues: Unremarkable. [facility]OLOG[facility] Provider, [facility] - 03/21/2022 * * *Final Report* * * DATE OF EXAM: Mar 21 2022 9:23AM WOX [id number] - XR CHEST 2V FRONTAL/LAT / PROCEDURE REASON: Acute cough * * * * Physician Interpretation * * * * EXAMINATION: CHEST RADIOGRAPH (2 VIEW FRONTAL & LATERAL) CLINICAL HISTORY: Acute cough MQ: XC2_6 EXAM DATE/TIME: 03/21/2022 9:23 AM COMPARISON: Chest x-ray 11/17/2021 RESULT: Lines, tubes, and devices: None. Lungs and pleura: No consolidation. No lung mass. No pleural effusion. No pneumothorax. Cardiomediastinal silhouette: Normal cardiomediastinal silhouette. Bones and soft tissues: Unremarkable. IMPRESSION IMPRESSION: No acute radiographic abnormality. Senior Laboratory Technician: PSCB Transcribe Date/Time: Mar 21 2022 9:33A Dictated by : SAIMA BARROSO MD This examination was interpreted and the report reviewed and electronically signed by: SAIMA BARROSO MD on Mar 21 2022 9:36AM EST [facility] Radiology Study observation (narrative) [facility] XR Chest PA and LateralOrder ed By: Ccf Provider on 03-21-2022 [facility] TONY DIAG W PELON LTon 022 [facility] TONY SCREENINGon 02-05-2022 [facility] No Panel Informationon 12-04 [facility] XR HIP GENERAL 3V PELV/AP/LA T RIGHTon 12-04-2021 [facility] XR KNEE GENERAL 4V AP BOTH/P A BOTH/LAT/MERC RIGHTon 10-17-2021 [facility] No Panel Informationon 08-01 [facility] CBC W Auto Differential pane l (Bld)on 07-29-2021 Abs Immature Gran 0.04 k/uL <0.10 k/uL [facility] Basophils (Bld) [#/Vol] 0.08 10*3/uL <0.11 k/uL [facility] Basophils/100 WBC (Bld) 0.9 % [facility] Differential cell count method Nom (Bld) Auto [facility] Eosinophils (Bld) [#/Vol] 0.22 10*3/uL <0.46 k/uL [facility] Eosinophils/100 WBC (Bld) 2.6 % [facility] Erythrocyte distribution width (RBC) [Ratio] 12.5 % 11.5 - 15.0 % [facility] Hematocrit (Bld) [Volume fraction] 41.5 % 36.0 - 46.0 % [facility] Hemoglobin (Bld) [Mass/Vol] 13.7 g/dL 11.5 - 15.5 g/dL [facility] Immature Gran % 0.5 % [facility] Lymphocytes (Bld) [#/Vol] 2.55 10*3/uL 1.00 - 4.00 k/uL [facility] Lymphocytes/100 WBC (Bld) 29.7 % [facility] MCH (RBC) [Entitic mass] 31.1 pg 26.0 - 34.0 pg [facility] MCHC (RBC) [Mass/Vol] 33.0 g/dL 30.5 - 36.0 g/dL [facility] MCV (RBC) [Entitic vol] 94.1 fL 80.0 - 100.0 fL [facility] Monocytes (Bld) [#/Vol] 0.61 10*3/uL <0.87 k/uL [facility] Monocytes/100 WBC (Bld) 7.1 % [facility] Neutrophils (Bld) [#/Vol] 5.10 10*3/uL 1.45 - 7.50 k/uL [facility] Neutrophils/100 WBC (Bld) 59.2 % [facility] Nucleated RBC (Bld) [#/Vol] 10*3/uL <0.01 k/uL [facility] Nucleated RBC/100 WBC (Bld) [Ratio] 0.0 /100 WBC [facility] Platelet mean volume (Bld) [Entitic vol] 9.2 fL 9.0 - 12.7 fL [facility] Platelets (Bld) [#/Vol] 418 10*3/uL High 150 - 400 k/uL [facility] RBC (Bld) [#/Vol] 4.41 10*6/uL 3.90 - 5.20 m/uL [facility] WBC (Bld) [#/Vol] 8.60 10*3/uL 3.70 - 11.00 k/uL [facility] XR Ribs - left Views and Sallie st PAon 02-04-2021 IMPRESSION: No acute chest entrance guard: SEFERINO Transcribe Date/Time: Feb 04 2021 1:06P Dictated by : SAIMA BARROSO MD This examination was interpreted and the report reviewed and electronically signed by: SAIMA BARROSO MD on Feb 04 2021 1:09PM [facility] DIVISION OF RADIOLOGY * * *Final Report* * * DATE OF EXAM: Feb 04 2021 1:01PM WOX 5243 - XR RIB/CHST 3V AP RIB/OBL/CHST L / PROCEDURE REASON: multiple diagnoses * * * * Physician Interpretation * * * * X-ray left ribs with PA chest Indication: Left-sided chest pain Comparison: Chest x-ray 08/27/2018 The heart is normal in size. There is no widening of the mediastinum. The lungs are clear and well expanded. No rib fractures are visualized. There are no acute osseous abnormalities. [facility]OLOG[facility] Provider, [facility] - 02/04/2021 * * *Final Report* * * DATE OF EXAM: Feb 04 2021 1:01PM WOX 5243 - XR RIB/CHST 3V AP RIB/OBL/CHST L / PROCEDURE REASON: multiple diagnoses * * * * Physician Interpretation * * * * X-ray left ribs with PA chest Indication: Left-sided chest pain Comparison: Chest x-ray 08/27/2018 The heart is normal in size. There is no widening of the mediastinum. The lungs are clear and well expanded. No rib fractures are visualized. There are no acute osseous abnormalities. IMPRESSION IMPRESSION: No acute chest entrance guard: SEFERINO Transcribe Date/Time: Feb 04 2021 1:06P Dictated by : SAIMA BARROSO MD This examination was interpreted and the report reviewed and electronically signed by: SAIMA BARROSO MD on Feb 04 2021 1:09PM EST [facility] Radiology Study observation (narrative) [facility] XR Ribs - left Views and Sallie st PAOrdered By: Ccf Provider on 02-04-2021 [facility] ED NOTEon 12-22-2018 ED NOTE HNO ID: [id number] Author: Charline Alvarez Service: ? Author Type: Physician Industrial/Organizational Psychologist Type: ED Notes Filed: 12/22/2018 4:15 PM Note Text: Emergency Services: ED Call Back Questionnaire SERVICE DATE: 12/21/2018 Are you feeling better? No patient feels same but just got her antibiotics filled this morning, no fevers, no worse than in ed, has follow up with doctor tomorrow Any questions about discharge instructions and follow-up care? No Were you able to make a follow up appointment? Yes Do you have any further questions? No Is there anything that we could have done differently to improve your ED visit? No SIGNATURE: Charline Alvarez PA-C PATIENT NAME: Mary Jane De Paz DATE: December 22, 2018 TIME: 4:12 PM Normal [facility] ED NOTE HNO ID: [id number] Author: Juana (Rn) GRACE Berkowitz Service: ? Author Type: Registered Nurse Type: ED Notes Filed: 12/21/2018 11:27 PM Note Text: Patient wants to leave; patient able to get into wheelchair with minimal assistance. Patients left to pull car up and they are ready to leave. Normal [facility] CBC and Differentialon 12-21 Abs Baso 0.05 k/uL Normal <0.11 [facility] Abs Bates 1.02 k/uL High <0.87 [facility] Abs Neut 8.71 k/uL High 1.45-7.50 [facility] Absolute nRBC <0.01 Normal <0.01 [facility] Basophils/100 WBC (Bld) 0.4 % Normal [facility] DTYPE Auto Diff Normal [facility] Eosinophils (Bld) [#/Vol] 0.19 10*3/uL Normal <0.46 [facility] Eosinophils/100 WBC (Bld) 1.7 % Normal [facility] Erythrocyte distribution width (RBC) [Ratio] 15.1 % High 11.5-15.0 [facility] Hematocrit (Bld) [Volume fraction] 30.7 % Low 36.0-46.0 [facility] Hemoglobin (Bld) [Mass/Vol] 9.9 g/dL Low 11.5-15.5 [facility] Lymphocytes (Bld) [#/Vol] 1.29 10*3/uL Normal 1.00-4.00 [facility] Lymphocytes/100 WBC (Bld) 11.5 % Normal [facility] MCH (RBC) [Entitic mass] 30.7 pG Normal 26.0-34.0 [facility] MCHC (RBC) [Mass/Vol] 32.2 g/dL Normal 30.5-36.0 [facility] MCV (RBC) [Entitic vol] 95.0 fL Normal 80.0-100.0 [facility] Monocytes/100 WBC (Bld) 9.1 % Normal [facility] Neutrophils/100 WBC (Bld) 77.3 % Normal [facility] NRBCs 0.0 /100 WBC Normal 0 [facility] Platelet mean volume (Bld) [Entitic vol] 8.7 fL Low 9.0-12.7 [facility] Platelets (Bld) [#/Vol] 424 10*3/uL High 150-400 [facility] RBC (Bld) [#/Vol] 3.23 10*6/uL Low 3.90-5.20 [facility] WBC (Bld) [#/Vol] 11.26 10*3/uL High 3.70-11.[address] [facility] [address] ABD/PEL W IVCONon 019 CT ABD/PEL W IVCON * * *Final Report* * * DATE OF EXAM: Dec 21 2018 7:59PM [facility] 0530 - CT ABD/PEL W IVCON / PROCEDURE REASON: Abd pain, unspecified * * * * Physician Interpretation * * * * EXAMINATION: CT ABDOMEN AND PELVIS WITH IV CONTRAST CLINICAL HISTORY: Abd pain, unspecified lt sided lower back pain x2-3 days TECHNIQUE: CT of the abdomen and pelvis was performed using standard technique, scanning from just above the dome of the diaphragm to the symphysis pubis. MQ: CTAP_3 Contrast: IV: 150 ml of Omnipaque 300 : ml of CT Radiation dose: Integrated Dose-length product (DLP) for this visit = 1022 mGy*cm. CT Dose Reduction Employed: Automated exposure control(AEC) and iterative recon COMPARISON: None RESULT: Liver: 1.4 cm hypodense lesion in hepatic segment 4B (image 22, 2) attenuation higher than simple fluid. Few other tiny subcentimeter hypodensities in the liver are too small to characterize. Biliary: Sludge in the gallbladder. No intrahepatic or extrahepatic biliary dilatation. Spleen: No mass. No splenomegaly. Pancreas: No mass or duct dilation. Adrenals: No mass. Kidneys: Kidneys enhance symmetrically without hydronephrosis or renal stones. Chronic appearing stranding surrounding the kidneys bilaterally. Subcentimeter hypodensity in the upper pole of the right kidney likely a cyst. GI tract: Patient status post gastric bypass. Diffuse diverticulosis of the sigmoid and descending colon. Possible minimal inflammation surrounding the mid to distal descending colon (image 82, 2). Appendix is normal. Small bowel is normal in caliber without obstruction. Small bowel anastomosis in the mid abdomen. Possible mild inflammation surrounding a loop of bowel in the midabdomen (image 65, 2). Lymph nodes: No abdominal or pelvic lymphadenopathy. Mesentery/Peritoneum: Small amount of mesenteric stranding. Trace fluid in the pelvis. Retroperitoneum: No mass. Vasculature: The celiac axis and SMA are patent. The portal vein and branches, splenic vein, SMV, and hepatic veins are patent. Arterial atherosclerotic disease without aneurysm. Pelvis: Bladder is unremarkable. Uterus is absent. 3.2 cm right ovarian cyst. No pelvic lymphadenopathy. Bones/Soft Tissues: Stimulator device in the right posterior back. No suspicious osseous lesions. Lower thorax: Atelectasis in the lung bases bilaterally. IMPRESSION: 1. Questionable inflammation surrounding the mid to distal descending colon, could be seen with very mild diverticulitis 2. Mild inflammation surrounding a single loop of small bowel in the midabdomen, could reflect mild enteritis. 3. Trace free fluid in the pelvis. 4. 3.2 cm right ovarian cyst. 5. 1.4 cm hypodensity in the liver, attenuation slightly higher than simple fluid. Indeterminant but could reflect a complex cyst or hemangioma. A nonemergent MRI of the liver could be obtained. Senior Laboratory Technician: SEFERINO Transcribe Date/Time: Dec 21 2018 8:49P Dictated by : DOMINGO PAEZ MD This examination was interpreted and the report reviewed and electronically signed by: DOMINGO PAEZ MD on Dec 21 2018 9:02PM EST [id number] Normal [facility] Comp Metabolic Panelon 12-21 Albumin [Mass/Vol] 3.3 g/dL Low 3.9-4.9 [facility] ALP [Catalytic activity/Vol] 69 U/L Normal 34-123 [facility] ALT [Catalytic activity/Vol] 18 U/L Normal 7-38 [facility] Anion gap [Moles/Vol] 13 mmol/L Normal 9-18 [facility] AST [Catalytic activity/Vol] 23 U/L Normal 13-35 [facility] Bilirubin [Mass/Vol] 0.4 mg/dL Normal 0.2-1.3 [facility] Calcium [Mass/Vol] 8.6 mg/dL Normal 8.5-10.2 [facility] Chloride [Moles/Vol] 91 mmol/L Low 97-105 [facility] CO2 [Moles/Vol] 25 mmol/L Normal 22-30 [facility] Creatinine [Mass/Vol] 1.08 mg/dL High 0.58-0.96 [facility] eGFR- Amer. >60 Normal [facility] GFR/1.73 sq M predicted among non-blacks MDRD (S/P/Bld) [Vol rate/Area] 51 . Normal [facility] Comment on above: Result Comment: eGFR (Estimated GFR) Units of measure: mL/min/1.73 meters squared eGFR is derived from the reexpressed MDRD Study equation using the following parameters: serum creatinine, age, gender and race. The creatinine assay has been calibrated to be traceable to IDMS. An eGFR <60 mL/min/1.73m2 for >3 months is consistent with chronic kidney disease. Refer to KDOQI guidelines for clinical interpretation. In patients with unstable renal function, e.g. those with acute kidney injury, the eGFR may not accurately reflect actual GFR. Glucose [Mass/Vol] 98 mg/dL Normal 74-99 [facility] Comment on above: Result Comment: The [place] [employer] (ADA) provides guidance for cutoff values for fasting glucose and random glucose. The ADA defines fasting as no caloric intake for at least 8 hours. Fasting plasma glucose results between 100 to 125 mg/dL indicate increased risk for diabetes (prediabetes). Fasting plasma glucose results greater than or equal to 126 mg/dL meet the criteria for diagnosis of diabetes. In the absence of unequivocal hyperglycemia, results should be confirmed by repeat testing. In a patient with classic symptoms of hyperglycemia or hyperglycemic crisis, random plasma glucose results greater than or equal to 200 mg/dL meet the criteria for diagnosis of diabetes. Reference: Standards of Medical Care in Diabetes 2016, [place] [employer]. Diabetes Care. 2016.39(Suppl 1). Potassium [Moles/Vol] 4.0 mmol/L Normal 3.7-5.1 [facility] Protein [Mass/Vol] 6.6 g/dL Normal 6.3-8.0 [facility] Sodium [Moles/Vol] 129 mmol/L Low 136-144 [facility] Urea nitrogen [Mass/Vol] 18 mg/dL Normal 7-21 [facility] ED NOTEon 12-21-2018 ED NOTE HNO ID: [id number] Author: Juana (Rn) GRACE Berkowitz Service: ? Author Type: Registered Nurse Type: ED Notes Filed: 12/21/2018 11:30 PM Note Text: Patient discharged per MD orders, RN at bedside to explain and review s/sx of worsening condition and to return to ED if worsening s/sx develop. Follow up care and questions answered with pt and family. [facility] ED NOTE HNO ID: [id number] Author: Juana Calderon) GRACE Berkowitz Service: ? Author Type: Registered Nurse Type: ED Notes Filed: 12/21/2018 11:30 PM Note Text: Patient escorted to restroom in wheelchair. [facility] ED NOTE HNO ID: [id number] Author: Gino (Medic) Alyssa Service: ? Author Type: Housekeeping/Laundry Supervisor and Child Welfare Consultant Type: ED Notes Filed: 12/21/2018 5:04 PM Note Text: PT c/o lt sided lower back pain x2-3 days. Denies any known injury. States the pain radiates up into her waist. Pain increases with movement. Denies any urinary symptoms. [facility] ED PROV NOTEon 12-21-2018 ED PROV NOTE HNO ID: [id number] Author: Julieth Chadwick MD Service: Emergency Medicine Author Type: Physician Type: ED Provider Notes Filed: 12/21/2018 11:51 PM Note Text: ED Provider Note Patient Name: Mary Jane De Paz SERVICE DATE: 12/21/18 History Patient presents with: Back Pain: lt sided lower x2 days 68-year-old female status post gastric bypass one week ago presents to the emergency department with left flank pain that is been ongoing for the past 2 days. She describes the pain as a sharp pain, worse with movement. She has never had pain like this before. She denies any difficulty urinating including dysuria, hematuria, changes in urinary frequency. No nausea or vomiting. She has not had a bowel movement in the past 2 days. She denies any numbness or paresthesias, no saddle anesthesia. No loss of bowel or bladder function. No fevers or chills. No chest pain or shortness of breath. No cough or hemoptysis. PAST MEDICAL HISTORY Diagnosis Date - Allergic rhinitis - Arthritis [facility] orthopedics, knee - Asthma - CKD (chronic kidney disease) 11/01/2018 - Class 3 severe obesity with serious comorbidity and body mass index (BMI) of 40.0 to 44.9 in adult ([facility]) 08/19/2018 - Depression - Diarrhea GI Dr Salazar - Environmental allergies - GERD (gastroesophageal reflux disease) - HTN (hypertension) - Hypothyroidism - Mixed hyperlipidemia - NIDDM (non-insulin dependent 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) - MARIBEL on CPAP CPAP 9Cm - Renal lesion 01/15/15 Suggest renal US every 1-2 years per PCP or nephro. - Snoring PAST SURGICAL HISTORY Procedure Laterality Date - COLONOSCOPY 11/05/2016 Tammi- divertiuclosis, internal hemorrhoids, repeat in 5 years - EGD 11/05/2016 Tammi- gastritis - EGD 09/08/2018 /Bola - GASTRIC BYPASS HX 12/13/2018 - HYSTERECTOMY - OOPHORECTOMY PARTIAL OR TOTAL - PAST SURGICAL HISTORY OF 2009 hemmroidectomy/sphincterectomy - Dr Nichole - PAST SURGICAL HISTORY OF 2008 total left knee replacement - PAST SURGICAL HISTORY OF 2003 partial right knee replacement - PAST SURGICAL HISTORY OF 1990 total hysterectomy - PAST SURGICAL HISTORY OF 2010 lDr Mansoor - [place] elbow fracture - traumatic. radial head replacement - PAST SURGICAL HISTORY OF Bilateral 2016 hand surgery - PAST SURGICAL HISTORY OF Left RELEASE CONTRACTURE DEQUERVAINS - TUBAL LIGATION HX FAMILY HISTORY Problem Relation Age of Onset - other (polio) Mother - Diabetes Father - other (Squamous cell ca) Father - other (renal cell ca) Father 1999 - other (htn) Father - other (renal cell ca) Brother 2010 - other (Thyroid Cancer) Sister - other (thyroid disease) Sister ca - Obesity Paternal Grandmother - Obesity Daughter Social History Tobacco Use - Smoking status: Former Smoker Packs/day: 1.50 Years: 22.00 Pack years: 33.00 Types: Cigarettes Last attempt to quit: 1990 Years since quittin.7 - Smokeless tobacco: Never Used Substance and Sexual Activity - Alcohol use: Yes Comment: few times a year. mixed drinls/marcelino. 3 in sitting. - Drug use: No Comment: denies tx for drug/alcohol abuse in the past. - Sexual activity: Yes Partners: Male ALLERGIES Allergen Reactions - Vicodin [Hydrocodon* Itching Pt not sure if she has an allergy but states she wants it documented. Review of Systems Constitutional: Negative for chills, fatigue and fever. Respiratory: Negative for cough and shortness of breath. Cardiovascular: Negative for chest pain, palpitations and leg swelling. Gastrointestinal: Negative for abdominal pain, constipation, diarrhea, nausea and vomiting. Genitourinary: Negative for decreased urine volume, difficulty urinating, dysuria, flank pain, frequency, hematuria and urgency. Musculoskeletal: Positive for back pain. Skin: Negative for pallor. Allergic/Immunologic: Negative for immunocompromised state. Neurological: Negative for weakness, numbness and headaches. Hematological: Negative for adenopathy. Psychiatric/Behavioral: Negative for confusion. Physical Exam BP 117/47 Pulse 79 Temp (Src) 99.1 (Oral) Resp 18 Ht 5' 2 (1.58m) Wt 210 lb (95.3kg) SpO2 94% BMI 38.40 kg/(m2). O2 Therapy: Room Air Physical Exam Constitutional: She is oriented to person, place, and time. She appears well-developed and well-nourished. No distress. HENT: Head: Normocephalic and atraumatic. Mouth/Throat: Oropharynx is clear and moist. Eyes: Conjunctivae are normal. Neck: Normal range of motion. Cardiovascular: Normal rate, regular rhythm, normal heart sounds and intact distal pulses. Pulmonary/Chest: Effort normal and breath sounds normal. No stridor. No respiratory distress. She has no wheezes. She has no rales. Abdominal: Soft. Normal appearance. She exhibits no distension. There is no tenderness. There is no rigidity, no guarding and no CVA tenderness. Vision sites clean dry and intact with no wound dehiscence or purulent drainage. No erythema or warmth. Musculoskeletal: Right hip: Normal. Left hip: Normal. Thoracic back: Normal. Lumbar back: She exhibits decreased range of motion (pain with movement), tenderness and pain. She exhibits no bony tenderness, no swelling, no edema, no deformity and no spasm. Back: Neurological: She is alert and oriented to person, place, and time. She has normal strength. No sensory deficit. Skin: Skin is warm and dry. She is not diaphoretic. No pallor. Nursing note and vitals reviewed. Diagnostic Testing ED Labs Ordered and Reviewed CBC + AUTO DIFF (AK,AV,EU,FV,HL,NYA,MM,SP) - Abnormal; Notable for the following components: Result Value Ref Range WBC 11.26 (*) 3.70 - 11.00 k/uL RBC 3.23 (*) 3.90 - 5.20 m/uL Hemoglobin 9.9 (*) 11.5 - 15.5 g/dL Hematocrit 30.7 (*) 36.0 - 46.0 % RDW-CV 15.1 (*) 11.5 - 15.0 % Platelet Count 424 (*) 150 - 400 k/uL MPV 8.7 (*) 9.0 - 12.7 fL Abs Neut (ANC) 8.71 (*) 1.45 - 7.50 k/uL Abs Bates 1.02 (*) <0.87 k/uL All other components within normal limits COMPREHENSIVE METABOLIC PANEL (AK,AV,EU,FV,HL,NYA,MM,SP) - Abnormal; Notable for the following components: Albumin 3.3 (*) 3.9 - 4.9 g/dL Creatinine 1.08 (*) 0.58 - 0.96 mg/dL Sodium 129 (*) 136 - 144 mmol/L Chloride 91 (*) 97 - 105 mmol/L All other components within normal limits UA DIP,URINE (ED-POC) - Abnormal; Notable for the following components: KETONE UA (POCT) 15 (*) Negative mg/dL All other components within normal limits CT ABD/PEL W IVCON Final Result IMPRESSION: 1. Questionable inflammation surrounding the mid to distal descending colon, could be seen with very mild diverticulitis 2. Mild inflammation surrounding a single loop of small bowel in the midabdomen, could reflect mild enteritis. 3. Trace free fluid in the pelvis. 4. 3.2 cm right ovarian cyst. 5. 1.4 cm hypodensity in the liver, attenuation slightly higher than simple fluid. Indeterminant but could reflect a complex cyst or hemangioma. A nonemergent MRI of the liver could be obtained. Senior Laboratory Technician: PSCB Transcribe Date/Time: Dec 21 2018 8:49P Dictated by : DOMINGO PAEZ MD This examination was interpreted and the report reviewed and electronically signed by: DOMINGO PAEZ MD on Dec 21 2018 9:02PM EST Procedures ED Course / Clinical Impression Clinical Impressions as of Dec 21 2328 Diverticulitis MDM / Disposition / Plan MDM 68-year-old female presents the emergency department with left flank pain. She is one week postoperative gastric bypass. Abdomen is soft and nontender however she does have left flank tenderness. Medicated with a dose of morphine for pain control. Labs show white count of 11, sodium of 129, chloride of 91. Otherwise normal. Given a normal saline bolus. CT abdomen and pelvis as above which shows questionable diverticulitis as well as some mild enteritis. Discussed above findings with patient's bariatric surgeon Dr. Wong who recommended treatment with oral antibiotics at home. Placed on Omnicef and Flagyl. First dose is given an ENT. A repeat evaluation she reported minimal improvement of pain from morphine. She states that now she does feel as though this is more muscular in nature and is requesting a muscle relaxant. Given a dose of Valium. She then is requesting to go home. I did discuss inpatient hospitalization with her should should her pain not improve however she advised to progressing physician that she would like to go home. She was able to transfer out of bed per nursing staff. She would not like to wait and see if the medications at home prior to discharge. I advised her of signs and symptoms to watch out for reasons to return to ED. I will discharge her home with a prescription for Robaxin to help with any muscular type pain per her request. I advised her of signs and symptoms to watch out for recommended follow-up with surgeon tomorrow. The patient was DISCHARGED: Counseled patient regarding lab results AND radiology results AND suspected diagnosis AND need for follow-up. Discharged home with verbal and written instructions. They were instructed to return as needed for persistent or worsening symptoms or any new concerns. Condition at time of disposition: stable SIGNATURE: DERECK Elizondo (Pa) 12/21/18 4991 Attending Note I have personally performed a face to face assessment of the patient and have reviewed the PA/SUPERVISOR [employer] note. My borges findings include: History is 68 yo F w/ recent gastric bypass here w/ left flank pain. Exam VSS Well-appearing and in no apparent distress Cardiac: RRR, no murmur Pulm: CTA bl Abd: surgical incisions well-healing, soft, nondistended, no significant tenderness Assessment/Plan CT w/ mild diverticulitis Dr. Wong ok for patient to go home w/ PO abx and follow up with him tomorrow She also requested muscle relaxer as she feels that her pain may be musculoskeletal. Offered admission for symptomatic management but patient requested d/c Patient was discharged home in stable condition. Discussed warning signs of when to RTED. They were given opportunity to ask questions. They understood and agreed to the plan. Signature: Julieth Chadwick MD Date: 12/21/2018 Time: 11:49 PM Julieth Chadwick MD 12/21/18 2351 [facility] PROGRESSon 12-21-2018 PROGRESS HNO ID: [id number] Author: ANGELA Atwood (Ct) Service: Radiology Author Type: Child Welfare Consultant Type: Progress Notes Filed: 12/21/2018 7:47 PM Note Text: Radiology Service Progress Note PATIENT NAME: Mary Jane De Paz DATE OF SERVICE: December 21, 2018 TIME: 7:47 PM PATIENT IDENTITY VERIFICATION COMPLETED USING TWO (2) METHODS: Name and Date of confirmed by patient verbally and Name and Date of confirmed by identification band. PATIENT GENDER DATA: Female. status: : No status: NO. PATIENT RELEVANT IMPLANT DATA REVIEWED: Not Applicable RADIOLOGY DEPARTMENT: CT; Exam(s) Completed: Abdomen/Pelvis PERIPHERAL IV DATA: Inpatient: see LDA documentation SIGNED BY: ANGELA Atwood December 21, 2018 7:47 PM [facility] PROGRESSon 08-27-2018 PROGRESS HNO ID: [id number] Author: Noreen Dash Service: Radiology Author Type: Stoker Installation Mechanic Type: Progress Notes Filed: 08/27/2018 12:25 PM Note Text: Radiology Service Progress Note PATIENT NAME: Mary Jane De Paz DATE OF SERVICE: August 27, 2018 TIME: 12:03 PM PATIENT IDENTITY VERIFICATION COMPLETED USING TWO (2) METHODS: Patient confirmed name verbally and Date of . PATIENT GENDER DATA: Male PATIENT RELEVANT IMPLANT DATA REVIEWED: Not Applicable RADIOLOGY DEPARTMENT: Ultrasound PERIPHERAL IV DATA: Not applicable SIGNED BY: NOREEN DASH RDMS Jame August 27, 2018 12:03 PM [facility] PROGRESS HNO ID: [id number] Author: Violet Morse (Rt) Service: Radiology Author Type: Child Welfare Consultant Type: Progress Notes Filed: 08/27/2018 12:00 PM Note Text: Radiology Service Progress Note PATIENT NAME: Mary Jane De Paz DATE OF SERVICE: August 27, 2018 TIME: 11:59 AM PATIENT IDENTITY VERIFICATION COMPLETED USING TWO (2) METHODS: Patient confirmed name verbally and Date of . PATIENT GENDER DATA: Female. status: : No status: NO. PATIENT RELEVANT IMPLANT DATA REVIEWED: Not Applicable RADIOLOGY DEPARTMENT: General X-ray: Exam(s) Completed: Chest X-Ray PERIPHERAL IV DATA: Not applicable SIGNED BY: ERICA Gandara August 27, 2018 11:59 AM [facility] US ABD RIGHT UPPER QUADRANTo n 08-27-2018 US ABD RIGHT UPPER QUADRANT * * *Final Report* * * DATE OF EXAM: Aug 27 2018 12:24PM [facility] 1032 - US ABD RIGHT UPPER QUADRANT / PROCEDURE REASON: multiple diagnoses * * * * Physician Interpretation * * * * EXAMINATION: RIGHT UPPER QUADRANT AND SPLEEN ULTRASOUND CLINICAL HISTORY: Preoperative testing. TECHNIQUE: Sonography of the right upper quadrant and spleen was performed. Images were obtained and stored in a permanent archive. MQ: URUQ_1 COMPARISON: None. RESULT: Pancreas: Normal sonographic appearance. Portions obscured: tail Liver: Echotexture: Normal, homogeneous. Echogenicity: Increased Surface contour: Smooth Lesions: None. Biliary: No intrahepatic biliary duct dilation. CBD: 0.4 cm at the hilum. Gallbladder: Normal caliber -Contents: No cholelithiasis -Wall: Normal -Other: No pericholecystic fluid. Spleen: 10.4 cm in length, normal. Right Kidney: 9.7 cm. No hydronephrosis. Left kidney: 9.2 cm. No hydronephrosis Ascites: None. IMPRESSION: HEPATIC STEATOSIS. Senior Laboratory Technician: SEFERINO Transcribe Date/Time: Aug 27 2018 12:57P Dictated by : JULIETH CHILDERS MD This examination was interpreted and the report reviewed and electronically signed by: JULIETH CHILDERS MD on Aug 27 2018 12:58PM EST [id number] [facility] US ABD SPLEEN -NBon 08-28-19 19 US ABD SPLEEN -NB * * *Final Report* * * DATE OF EXAM: Aug 27 2018 12:24PM [facility] 1232 - US ABD SPLEEN -NB / PROCEDURE REASON: multiple diagnoses * * * * Physician Interpretation * * * * EXAMINATION: RIGHT UPPER QUADRANT AND SPLEEN ULTRASOUND CLINICAL HISTORY: Preoperative testing. TECHNIQUE: Sonography of the right upper quadrant and spleen was performed. Images were obtained and stored in a permanent archive. MQ: URUQ_1 COMPARISON: None. RESULT: Pancreas: Normal sonographic appearance. Portions obscured: tail Liver: Echotexture: Normal, homogeneous. Echogenicity: Increased Surface contour: Smooth Lesions: None. Biliary: No intrahepatic biliary duct dilation. CBD: 0.4 cm at the hilum. Gallbladder: Normal caliber -Contents: No cholelithiasis -Wall: Normal -Other: No pericholecystic fluid. Spleen: 10.4 cm in length, normal. Right Kidney: 9.7 cm. No hydronephrosis. Left kidney: 9.2 cm. No hydronephrosis Ascites: None. IMPRESSION: HEPATIC STEATOSIS. Senior Laboratory Technician: [facility] STERLINGCristobal Transcribe Date/Time: Aug 27 2018 12:57P Dictated by : JULIETH CHLIDERS MD This examination was interpreted and the report reviewed and electronically signed by: JULIETH CHILDERS MD on Aug 27 2018 12:58PM EST [id number] [facility] XR CHEST 2V FRONTAL/LATon XR CHEST 2V FRONTAL/LAT * * *Final Report* * * DATE OF EXAM: Aug 27 2018 12:07PM [facility] [id number] - XR CHEST 2V FRONTAL/LAT / PROCEDURE REASON: multiple diagnoses * * * * Physician Interpretation * * * * EXAMINATION: CHEST RADIOGRAPH (2 VIEW FRONTAL and LATERAL) CLINICAL HISTORY: Class 3 severe obesity with serious comorbidity and body mass index (BMI) of 40.0 to 44.9 in adult, unspecified obesity type (HCC) Class 3 severe obesity with serious comorbidity and body mass index (BMI) of 40.0 to 44.9 in adult, unspecified obesity type (HCC) MQ: XC2_5 Comparison: 05/07/2018 RESULT: Lines, tubes, and devices: None. Lungs and pleura: No consolidation. No lung mass. No pleural effusion. Cardiomediastinal silhouette: Normal cardiomediastinal silhouette. Other: . IMPRESSION: No acute radiographic abnormality. Senior Laboratory Technician: SEFERINO Transcribe Date/Time: Aug 27 2018 12:57P Dictated by : JULIETH CHILDERS MD This examination was interpreted and the report reviewed and electronically signed by: JULITEH CHILDERS MD on Aug 27 2018 3:54PM EST [id number] [facility] ANES Rebekah 06-29-2018 ANES POST HNO ID: [id number] Author: Sebastian Gardner Service: Anesthesiology Author Type: Physician Type: Anesthesia PostOp Filed: 06/29/2018 9:59 AM Note Text: POST ANESTHESIA EVALUATION NOTE SERVICE DATE: 06/29/2018 SERVICE TIME: 09:58 : 1950 Vitals: 06/29/18925 Temp: 36.2 ?C (97.2 ?F) 06/29/1892506/29/1892906/29/18943 BP: 124/50 90/65 129/78 06/29/1892506/29/1892906/29/18943 Pulse: 80 73 71 06/29/1892506/29/1892906/29/18943 Resp: 18 16 16 06/29/1892506/29/1892906/29/18943 SpO2: 99% 95% 96% Validated Vital Signs: Yes POST ANES STATUS: No apparent anesthetic complications. The patient is appropriately hydrated with stable respiratory and cardiovascular status. Patient has safe and adequate airway control. The patient has appropriate pain relief and no significant post operative nausea or vomiting. The patient has achieved baseline mental status. Intra-Operative Events: No Significant Anesthesia Events Further assessment by Anesthesia Service: None Other Remarks: SIGNATURE: Sebastian Gardner MD PATIENT NAME: Mary Jane De Paz DATE: June 29, 2018 TIME: 9:58 AM PAGER/CONTACT #: [facility] ANES PREOPon 06-29-2018 ANES PREOP HNO ID: [id number] Author: Sebastian Gardner Service: Anesthesiology Author Type: Physician Type: Anesthesia PreOp Filed: 06/29/2018 8:08 AM Note Text: ANESTHESIOLOGY DAY OF SURGERY NOTE SERVICE DATE: 06/29/2018 SERVICE TIME: 08:05 : 1950 Procedure(s) (LRB): INSERTION STIMULATOR GENERATOR BLADDER (N/A) ELECTRONIC ANALYSIS IMPLANTED NEUROSTIMULATOR SIMPLE SPINAL CORD OR PERIPHERAL NERVE W/PROGRAMMING (N/A) Surgeon(s): Tylor Mesa Estimated body mass index is 37.92 kg/m? as calculated from the following: Height as of 06/15/18: 160 cm (5' 2.99). Weight as of 06/15/18: 97.1 kg (214 lb). Most recent hematocrit and potassium results: Hematocrit 36.6 04/02/2018 Potassium 4.7 04/02/2018 ANES DOS/PREOP NOTE: Vitals: There were no vitals filed for this visit. 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 - Snoring PAST SURGICAL HISTORY Procedure Laterality Date - COLONOSCOPY 11/05/2016 Tammi- divertiuclosis, internal hemorrhoids, repeat in 5 years - EGD 11/05/2016 Tammi- gastritis - HYSTERECTOMY - OOPHORECTOMY PARTIAL OR TOTAL - PAST SURGICAL HISTORY OF 2009 hemmroidectomy/sphincterectomy - Dr Nichole - PAST SURGICAL HISTORY OF 2008 total left knee replacement - PAST SURGICAL HISTORY OF 2003 partial right knee replacement - PAST SURGICAL HISTORY OF 1990 total hysterectomy - PAST SURGICAL HISTORY OF 2010 lDr Mansoor - [place] elbow fracture - traumatic. radial head replacement - PAST SURGICAL HISTORY OF Bilateral 2016 hand surgery - PAST SURGICAL HISTORY OF Left RELEASE CONTRACTURE DEQUERVAINS - TUBAL LIGATION HX FAMILY HISTORY Problem Relation Age of Onset - other (polio) Mother - Diabetes Father - other (Squamous cell ca) Father - other (renal cell ca) Father 1999 - other (htn) Father - other (renal cell ca) Brother 2010 - other (Thyroid Cancer) Sister - other (thyroid disease) Sister ca Social History: Social History Tobacco Use - Smoking status: Former Smoker Packs/day: 1.50 Years: 22.00 Pack years: 33.00 Types: Cigarettes Last attempt to quit: 1990 Years since quittin.2 - Smokeless tobacco: Never Used Substance Use Topics - Alcohol use: Yes Comment: few times a year. mixed drinls/marcelino. 3 in sitting. - Drug use: No Comment: denies tx for drug/alcohol abuse in the past. No current facility-administered medications on file prior to encounter. Current Outpatient Medications on File Prior to Encounter: esomeprazole (NEXIUM) 40 mg capsule TAKE ONE CAPSULE BY MOUTH TWICE DAILY BEFORE MEALS KLOR-CON M20 20 mEq tablet Take 1 tablet by mouth once daily. verapamil ER 180 mg 24 hr capsule Take 1 capsule by mouth once daily. buPROPion XL (WELLBUTRIN XL) 150 mg 24 hr tablet Take 1 tablet by mouth once daily. In morning FLUoxetine (PROZAC) 20 mg capsule Take 3 capsules by mouth once daily. traZODone (DESYREL) 100 mg tablet Take 1 tablet by mouth daily at bedtime. As needed for sleep folic acid 800 mcg tablet Take 1 tablet by mouth once daily. levothyroxine (SYNTHROID) 100 mcg tablet Take 1 tablet by mouth once daily. lisinopril (ZESTRIL, PRINIVIL) 20 mg tablet Take 1 tablet by mouth once daily. atorvastatin (LIPITOR) 40 mg tablet Take 1 tablet by mouth once daily. pioglitazone (ACTOS) 30 mg tablet Take 1 tablet by mouth once daily. glimepiride (AMARYL) 4 mg tablet Take 1 tablet by mouth twice daily with meals. Cholecalciferol, Vitamin D3, (VITAMIN D) 1,000 unit cap Take 1,000 Units by mouth once daily. turmeric 400 mg cap Take 1 capsule by mouth once daily. Apple Cider Vinegar 300 mg tab Take 300 mg by mouth once daily. albuterol HFA (PROAIR HFA) 90 mcg/actuation inhaler Inhale 2 Puffs as instructed every 6 hours as needed (for cough and wheeze). insulin 70/30 NPH/regular units/mL (NOVOLIN 70/30 U-100 INSULIN) Inject 26 Units subcutaneously before breakfast and 18 Units before dinner. methotrexate 2.5 mg tablet Take 1 tablet by mouth every Thursday. (Patient taking differently: Take 10 mg by mouth every Thursday. ) CPAP Auto CPAP 4-16 CM H2O WITH A 20 MINUTE RAMP, CHIN STRAP, HUMIDITY. LIFETIME SUPPLIES. ascorbic acid (VITAMIN C) 500 mg tablet Take 1 tablet by mouth once daily. cephALEXin (KEFLEX) 500 mg capsule Take 1 capsule by mouth four times daily. guaiFENesin (MUCINEX) 1,200 mg Ta12 Take 1 tablet by mouth as needed. albuterol HFA (PROVENTIL HFA, VENTOLIN HFA) 90 mcg/actuation inhaler Inhale 2 Puffs as instructed every 4 hours as needed for Wheezing/Shortness of Breath. Insulin Syringe-Needle U-100 (BD INSULIN SYRINGE ULTRAFINE) 0.3 mL 31 gauge x 5/16 syrg Inject insulin twice a day naproxen (NAPROSYN) 375 mg tablet Take 1 tablet by mouth twice daily with meals. Current Facility-Administered Medications: lidocaine 10 mg/mL (1 %) 1-2 mg injection (XYLOCAINE) 0.1-0.2 mL INTRADERMAL PRN Tylor Mesa lactated ringers infusion 5-30 mL/hr INTRAVENOUS CONTINUOUS Tylor Mesa meloxicam 7.5 mg tab(s) (MOBIC) 7.5 mg ORAL ONCE Tylor Mesa ceFAZolin iv piggyback 2 g in D5W (iso-osmotic) 100 mL (ANCEF) 2 g INTRAVENOUS ONCE Tylor Mesa Allergies: ALLERGIES No Known Allergies DOS EXAM: Adequate NPO Status: Yes Anesthetic Risks, Benefits, Alternatives, Personnel and Consent Discussed: Yes Patient agrees to proceed: Yes Previous Anesthesia: No history of adverse event Airway Assessment: MP 2; Neck ROM: Full ROM without neurologic symptoms; Airway Evaluation: No significant abnormalities Symptoms of Sleep Apnea: Hypertension and Age over 50 (68 year old) Dentition: Teeth intact Additional Physical Exam: Lungs: Patient health status unchanged since recent history and physical. See history and physical for exam findings. Cardiac: Patient health status unchanged since recent history and physical. See history and physical for exam findings. Additional Pertinent Findings: N/A Blood Products: Not anticipated for this procedure Anesthetic Plan: MAC with general as back up Anesthetic Monitoring: Standard ASA Monitors Pain Management Plan: Parenteral or Oral ASA Class: 3 Other Medical Problems: None Chronic Beta Manny medication administered within 24 hours: N/A I have interviewed and examined the patient. I have reviewed the medical record and/or the pre-anesthesia evaluation, pertinent labs, and test results. Significant changes in the patient's condition since the History and Physical, not otherwise documented in primary service progress notes: No This contains updated information obtained within 48 hours of Surgery/Procedure. SIGNATURE: Sebastian Gardner MD PATIENT NAME: Mary Jane De Paz DATE: June 29, 2018 TIME: 8:07 AM CSN: [id number] [facility] HISTORY PHYSICALon HISTORY PHYSICAL HNO ID: [id number] Author: Ashly June (Fel) Service: Colorectal Author Type: Fellow Type: HANDP Filed: 06/29/2018 8:30 AM Note Text: UPDATED HISTORY AND PHYSICAL EXAMINATION SERVICE DATE: 06/29/2018 SERVICE TIME: 8:30 AM PHYSICAL EXAM MUST BE COMPLETED ON ADMISSION The History and Physical (completed in the past 30 days) has been reviewed and the patient has been examined. The contents accurately reflect the patient's condition with the following additions or revisions since the HANDP was completed. Examination indicates no changes. This HANDP can be found in the Electronic Medical Record dated 06/03/18. SIGNATURE: Ashly June MD PATIENT NAME: Mary Jane De Paz DATE: June 29, 2018 TIME: 8:30 AM PAGER: [facility] OPERATIVE NOon 06-29-2018 OPERATIVE NO HNO ID: [id number] Author: Tylor Mesa Service: Colorectal Author Type: Physician Type: Operative Report Filed: 06/29/2018 9:24 AM Note Text: COLON AND RECTAL SURGERY OPERATIVE REPORT PATIENT NAME: Mary Jane De Paz ADMISSION DATE: 06/29/2018 LOG ID: [id number] SURGERY/PROCEDURE DATE: 06/29/2018 INCISION/PROCEDURE START TIME: 8:55 AM INCISION CLOSE/PROCEDURE END TIME: 9:14 AM AGE: [age] year old SEX: female SURGEON(S)/PROCEDURALIST(S) AND BOOTH OPERATOR(S): Surgeon(s) and Role: * Tylor Mesa - Primary No Additional Staff ANESTHESIA: Monitored Anesthesia Care PREOPERATIVE DIAGNOSIS (ES): Fecal incontinence POSTOPERATIVE DIAGNOSIS (ES): Fecal incontinence NAME OF OPERATION: Sacral nerve stimulator insertion stage 2 INDICATIONS FOR PROCEDURE: Successful sacral nerve stimulator stage 1 for fecal incontinence OPERATIVE FINDINGS: Pocket created, battery inserted DESCRIPTION OF PROCEDURE: The patient was brought to the operating room, placed under MAC anesthesia in the prone position. A surgical time-out was performed. Two grams of IV Ancef were given. The area for incision was prepped and draped in normal sterile fashion and anesthetized with 30 mL of 0.25% Marcaine. The previously created pocket was opened with a scalpel, careful not to damage the underlying boot and lead/wire. Once the pocket was completely opened the percutaneous wire was cut and removed. The boot was then removed and passed off the field. The lead was then secured to the battery and placed within an antibiotic envelope. Hemostasis was assured. The battery and envelope were placed in the pocket and laid nicely without any tension or twists. The incision was then closed in layers with 3-0 Vicryl and 4-0 Monocryl. Skin glue was applied. ESTIMATED BLOOD LOSS: 5 cc SPECIMENS: None INTRAOPERATIVE FLUIDS: See anesthesia record. SPONGE/INSTRUMENT/NEEDLE COUNTS: Correct x2. PRESENCE STATEMENT: I was present for the entire procedure as I have dictated above. Tylor Mesa M.D. Department of Surgery Division of Colon and Rectal Surgery [facility] PT EDon 06-29-2018 PT ED HNO ID: [id number] Author: Maximino Orozco (Rn) Arsen RN Service: Nursing Author Type: Registered Nurse Type: Patient Education Filed: 06/29/2018 7:34 AM Note Text: PRE OP LEARNING ASSESSMENT PROCEDURE/SURGERY: SURGERY: implant stimulater bladder READINESS TO LEARN COGNITIVE ABILITY: Alert and oriented MOTIVATION TO LEARN: Eager FAMILY SUPPORT: High - Very involved in pt care PATIENT LEARNS BEST BY: Individual Instruction Written Instruction - Hand-outs Verbal Instruction FACTORS AFFECTING LEARNING: None PHYSICAL LIMITATIONS AFFECTING LEARNING: None Electronically Signed By: Maximino Leger RN In Department: [facility] Normal [facility] ANES Rebekah 06-15-2018 ANES POST HNO ID: [id number] Author: Reyes Lisa Service: Anesthesiology Author Type: Anesthesiologist Type: Anesthesia PostOp Filed: 06/15/2018 3:52 PM Note Text: POST ANESTHESIA EVALUATION NOTE SERVICE DATE: 06/15/2018 SERVICE TIME: 1300 : 1950 Vitals: 06/15/18 1115 06/15/18 1310 Temp: 36.5 ?C (97.7 ?F) 36.2 ?C (97.1 ?F) 06/15/18 1115 06/15/18 1310 06/15/18 1320 06/15/18 1330 BP: 141/76 (!) 97/38 81/67 139/78 06/15/18 1115 06/15/18 1310 06/15/18 1320 06/15/18 1330 Pulse: 79 78 75 75 06/15/18 1115 06/15/18 1310 06/15/18 1320 06/15/18 1330 Resp: 16 16 13 20 06/15/18 1115 06/15/18 1310 06/15/18 1320 06/15/18 1330 SpO2: 97% 98% 96% 97% Validated Vital Signs: Yes No apparent anesthetic complications. The patient is appropriately hydrated with stable respiratory and cardiovascular status. Patient has safe and adequate airway control. The patient has appropriate pain relief and no significant post operative nausea or vomiting. The patient has achieved baseline mental status. Further assessment by Anesthesia Service: None Other Remarks: SIGNATURE: Reyes Lisa MD PATIENT NAME: Mary Jane De Paz DATE: June 15, 2018 PAGER/CONTACT #: [phone] [facility] ANES PREOPon 06-15-2018 ANES PREOP HNO ID: [id number] Author: Reyes Lisa Service: Anesthesiology Author Type: Anesthesiologist Type: Anesthesia PreOp Filed: 06/15/2018 12:17 PM Note Text: REGIONAL ANESTHESIOLOGY DAY OF SURGERY NOTE PATIENT NAME: Mary Jane De Paz : 1950 Procedure(s) (LRB): TRANSFORAMINAL PLCMNT VIA INCISION NEUROSTIM ELECTRODES SACRAL (N/A) FLUOROSCOPY UP TO 1 HOUR PHYSCIAN OR OTHER QUAL PROF TIME,SEPARATE PROCEDURE (N/A) Surgeon(s): Tylor Limon (Elmer) Slade Estimated body mass index is 37.92 kg/m? as calculated from the following: Height as of this encounter: 160 cm (5' 2.99). Weight as of this encounter: 97.1 kg (214 lb). ASA Class: 3 Adequate NPO status: Yes Allergies: ALLERGIES No Known Allergies Airway Assessment: MP 2; Neck ROM: Full ROM without neurologic symptoms; Airway Evaluation: No significant abnormalities Dentition: Teeth intact Symptoms of Sleep Apnea: Formally diagnosed and compliant with therapy Most recent lab results: Hemoglobin 11.8 04/02/2018 Hematocrit 36.6 04/02/2018 Potassium 4.7 04/02/2018 Platelet Count 417 04/02/2018 PT Sec 9.6 01/06/2013 APTT 25.2 01/06/2013 PT INR 0.9 01/06/2013 Creatinine 1.06 04/02/2018 EKG: Not indicated Vitals: 06/15/18 1115 BP: 141/76 Pulse: 79 Resp: 16 Temp: 36.5 ?C (97.7 ?F) TempSrc: Temporal Artery SpO2: 97% Weight: 97.1 kg (214 lb) Height: 160 cm (5' 2.99) Previous Anesthesia: No history of adverse event Family history of anesthetic problems: None Additional Physical Exam: Lungs: Lungs clear to auscultation. Good diaphragmatic excursion. Cardiac: Normal S1 and S2; no rubs, no murmurs and no gallops Additional pertinent findings: N/A Other Medical Problems/ Important Considerations: Denies chest pain and SOB with exertion. Denies change in functional capacity. Denies GERD. MARIBEL Asthma, controlled Hypothyroid HTN Depression Chronic Beta Manny medication administered within 24 hours: N/A Anesthetic risks, benefits, alternatives, personnel and consent discussed: Yes Patient agrees to proceed: Yes Blood Products: Not anticipated for this procedure Anesthetic Plan: MAC with GA as back up; Standard ASA Monitors Pain Management Plan: Parenteral or Oral EPIC Chart Review ACTIVE PROBLEM LIST Type 2 Diabetes Mellitus With Hyperglycemia, With Long-Term Current Use of Insulin (Hcc) Blepharochalasis Hyperlipidemia Hypothyroid Generalized Postprandial Abdominal Pain Diarrhea Ibs (Irritable Bowel Syndrome) Depression Essential Hypertension Maribel (Obstructive Sleep Apnea) Cognitive Decline Other Symbolic Dysfunction Actinic Keratoses Gerd Without Esophagitis Encounter for Screening Colonoscopy Pain of Foot 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 Hypertension Associated With Diabetes (Hcc) Contusion of Leg, Left, Sequela De Quervain's Tenosynovitis, Left Post-Operative State PAST MEDICAL HISTORY Diagnosis Date - Allergic rhinitis - Arthritis [facility] orthopedics, knee - Asthma - Depression - Diarrhea GI Dr Salazar - Environmental allergies - GERD (gastroesophageal reflux disease) - HTN (hypertension) - Hypothyroidism - Mixed hyperlipidemia - NIDDM (non-insulin dependent 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) - MARIBEL on CPAP CPAP 9Cm - Renal lesion 01/15/15 Suggest renal US every 1-2 years per PCP or nephro. - Snoring PAST SURGICAL HISTORY Procedure Laterality Date - COLONOSCOPY 11/05/2016 Tammi- divertiuclosis, internal hemorrhoids, repeat in 5 years - EGD 11/05/2016 Tammi- gastritis - HYSTERECTOMY - OOPHORECTOMY PARTIAL OR TOTAL - PAST SURGICAL HISTORY OF 2009 hemmroidectomy/sphincterectomy - Dr Nichole - PAST SURGICAL HISTORY OF 2008 total left knee replacement - PAST SURGICAL HISTORY OF 2003 partial right knee replacement - PAST SURGICAL HISTORY OF 1990 total hysterectomy - PAST SURGICAL HISTORY OF 2010 lDr Mansoor - [place] elbow fracture - traumatic. radial head replacement - PAST SURGICAL HISTORY OF Bilateral 2016 hand surgery - PAST SURGICAL HISTORY OF Left RELEASE CONTRACTURE DEQUERVAINS - TUBAL LIGATION HX FAMILY HISTORY Problem Relation Age of Onset - other (polio) Mother - Diabetes Father - other (Squamous cell ca) Father - other (renal cell ca) Father 1999 - other (htn) Father - other (renal cell ca) Brother 2010 - other (Thyroid Cancer) Sister - other (thyroid disease) Sister ca Social History: Social History Tobacco Use - Smoking status: Former Smoker Packs/day: 1.50 Years: 22.00 Pack years: 33.00 Types: Cigarettes Last attempt to quit: 1989 Years since quittin.2 - Smokeless tobacco: Never Used Substance Use Topics - Alcohol use: Yes Comment: few times a year. mixed drinls/marcelino. 3 in sitting. - Drug use: No Comment: denies tx for drug/alcohol abuse in the past. No current facility-administered medications on file prior to encounter. Current Outpatient Medications on File Prior to Encounter: KLOR-CON M20 20 mEq tablet Take 1 tablet by mouth once daily. verapamil ER 180 mg 24 hr capsule Take 1 capsule by mouth once daily. buPROPion XL (WELLBUTRIN XL) 150 mg 24 hr tablet Take 1 tablet by mouth once daily. In morning FLUoxetine (PROZAC) 20 mg capsule Take 3 capsules by mouth once daily. traZODone (DESYREL) 100 mg tablet Take 1 tablet by mouth daily at bedtime. As needed for sleep folic acid 800 mcg tablet Take 1 tablet by mouth once daily. levothyroxine (SYNTHROID) 100 mcg tablet Take 1 tablet by mouth once daily. lisinopril (ZESTRIL, PRINIVIL) 20 mg tablet Take 1 tablet by mouth once daily. atorvastatin (LIPITOR) 40 mg tablet Take 1 tablet by mouth once daily. pioglitazone (ACTOS) 30 mg tablet Take 1 tablet by mouth once daily. glimepiride (AMARYL) 4 mg tablet Take 1 tablet by mouth twice daily with meals. Cholecalciferol, Vitamin D3, (VITAMIN D) 1,000 unit cap Take 1,000 Units by mouth once daily. turmeric 400 mg cap Take 1 capsule by mouth once daily. Apple Cider Vinegar 300 mg tab Take 300 mg by mouth once daily. insulin 70/30 NPH/regular units/mL (NOVOLIN 70/30 U-100 INSULIN) Inject 26 Units subcutaneously before breakfast and 18 Units before dinner. naproxen (NAPROSYN) 375 mg tablet Take 1 tablet by mouth twice daily with meals. ascorbic acid (VITAMIN C) 500 mg tablet Take 1 tablet by mouth once daily. guaiFENesin (MUCINEX) 1,200 mg Ta12 Take 1 tablet by mouth as needed. albuterol HFA (PROVENTIL HFA, VENTOLIN HFA) 90 mcg/actuation inhaler Inhale 2 Puffs as instructed every 4 hours as needed for Wheezing/Shortness of Breath. albuterol HFA (PROAIR HFA) 90 mcg/actuation inhaler Inhale 2 Puffs as instructed every 6 hours as needed (for cough and wheeze). Insulin Syringe-Needle U-100 (BD INSULIN SYRINGE ULTRAFINE) 0.3 mL 31 gauge x 5/16 syrg Inject insulin twice a day methotrexate 2.5 mg tablet Take 1 tablet by mouth every Thursday. (Patient taking differently: Take 10 mg by mouth every Thursday. ) CPAP Auto CPAP 4-16 CM H2O WITH A 20 MINUTE RAMP, CHIN STRAP, HUMIDITY. LIFETIME SUPPLIES. Inpatient medications reviewed in [facility]. I have interviewed and examined the patient. I have reviewed the medical record and/or the pre-anesthesia evaluation, pertinent labs, and test results. Significant changes in the patient's condition since the History and Physical, not otherwise documented in primary service progress notes: No This contains updated information obtained within 48 hours of Surgery/Procedure. SIGNATURE: Reyes Lisa MD PATIENT NAME: Mary Jane De Paz DATE: June 15, 2018 TIME: 1145 PAGER/CONTACT #: [phone] (pager) [facility] HISTORY PHYSICALon 9 HISTORY PHYSICAL HNO ID: [id number] Author: Ashly June (Fel) Service: Colorectal Author Type: Fellow Type: HANDP Filed: 06/15/2018 11:24 AM Note Text: UPDATED HISTORY AND PHYSICAL EXAMINATION SERVICE DATE: 06/15/2018 SERVICE TIME: 11:24 AM PHYSICAL EXAM MUST BE COMPLETED ON ADMISSION The History and Physical (completed in the past 30 days) has been reviewed and the patient has been examined. The contents accurately reflect the patient's condition with the following additions or revisions since the HANDP was completed. Examination indicates no changes. This HANDP can be found in the Electronic Medical Record dated 06/03/2018. SIGNATURE: Ashly June MD PATIENT NAME: Mary Jane De Paz DATE: June 15, 2018 TIME: 11:24 AM PAGER: [facility] OPERATIVE NOon 06-15-2018 OPERATIVE NO HNO ID: [id number] Author: Tylor Mesa Service: Colorectal Author Type: Physician Type: Operative Report Filed: 06/15/2018 1:23 PM Note Text: COLON AND RECTAL SURGERY OPERATIVE REPORT PATIENT NAME: Mary Jane De Paz ADMISSION DATE: 06/15/2018 LOG ID: [id number] SURGERY/PROCEDURE DATE: 06/15/2018 INCISION/PROCEDURE START TIME: 12:20 PM INCISION CLOSE/PROCEDURE END TIME: 1:03 PM AGE: [age] year old SEX: female SURGEON(S)/PROCEDURALIST(S) AND BOOTH OPERATOR(S): Surgeon(s) and Role: * Tylor Mesa - Primary * Ashly June (Fel) - Fellow No Additional Staff ANESTHESIA: Monitored Anesthesia Care PREOPERATIVE DIAGNOSIS (ES): Fecal incontinence POSTOPERATIVE DIAGNOSIS (ES): Fecal incontinence NAME OF OPERATION: Sacral nerve stimulator insertion stage I INDICATIONS FOR PROCEDURE: Fecal incontinence OPERATIVE FINDINGS: Sacral nerve stimulator placed into S3 foramen DESCRIPTION OF PROCEDURE: The patient was brought to the operating room, placed under MAC anesthesia in the prone-jackknife position. A surgical time-out was performed. The lower back was prepped and draped in normal sterile fashion. Preoperative antibiotics were given. Utilizing fluoroscopic guidance, the left and right S3 foramen were accessed with the needle included in the sacral nerve stimulator (SNS) kit. After testing the needle locations, it was found that the right sided needle placement yielded better results. The stimulator wire was threaded into the right sided S3 foramen and subsequently tunneled laterally into the subcutaneous pocket that was created in the superior portion of the gluteus. The stimulator was laid in the pocket and the wire tunneled further laterally out of the skin. The incisions were irrigated and closed in layers with 3-0 Vicryl and 4-0 Monocryl and skin glue. The wire was attached to the external battery. Dressing was applied. ESTIMATED BLOOD LOSS: 5 cc SPECIMENS: None INTRAOPERATIVE FLUIDS: See anesthesia record. SPONGE/INSTRUMENT/NEEDLE COUNTS: Correct x2. PRESENCE STATEMENT: I was present for the entire procedure as I have dictated above. Tylor Mesa M.D. Department of Surgery Division of Colon and Rectal Surgery [facility] PT EDon 06-15-2018 PT ED HNO ID: [id number] Author: Mariana HirschRn) GRACE Simmons Service: Nursing Author Type: Registered Nurse Type: Patient Education Filed: 06/15/2018 2:17 PM Note Text: PATIENT ATTENDANT HOMEGOING INSTRUCTIONS C O N F I D E N T I A L I N F O R M A T I O N The checked information below will help you return to normal function as soon as possible after your surgery. Please read it carefully and save for future reference. PATIENT NAME: Mary Jane De Paz ADMISSION DATE: 06/15/2018 DISCHARGE DATE: ACTIVITY: We recommend not staying alone for [address] before 24 hours or you are no longer taking narcotic pain medication, or when instructed by your doctor. Go home and rest. Resume normal activity after 24 hours or when instructed by your doctor. Do not use power tools or machinery for 24 hours. Do not make important personal or business decisions. DIET: Your stomach may be sensitive: begin slowly by drinking water, then clear liquids, and then a light meal. PAIN CONTROL: Follow your doctor's instruction. If your pain relief is ineffective, contact your doctor. CALL DOCTOR IF: If any signs of infection develops: redness, swelling, pus or drainage from wound, fever, swollen glands or light headedness, fainting, cold and clammy skin, and confusion should also be reported at once. If you have shortness of breath or difficulty swallowing. Your temperature is greater than 101 degrees Farenheit. You are having difficulty voiding. You have questions or concern specific to your procedure or surgery. MISCELLANEOUS INSTRUCTIONS: Please follow any additional instructions given to you. Electronically SIGNED by Mariana Simmons RN June 15, 2018 2:16 PM [facility] PT ED HNO ID: [id number] Author: Julieth HirschRnBowen Ramirez RN Service: ? Author Type: Registered Nurse Type: Patient Education Filed: 06/15/2018 11:06 AM Note Text: PRE OP LEARNING ASSESSMENT PROCEDURE/SURGERY: SURGERY: sacral neurostimulator placement READINESS TO LEARN COGNITIVE ABILITY: Alert and oriented MOTIVATION TO LEARN: Eager FAMILY SUPPORT: High - Very involved in pt care PATIENT LEARNS BEST BY: Individual Instruction FACTORS AFFECTING LEARNING: None PHYSICAL LIMITATIONS AFFECTING LEARNING: None Electronically Signed By: Julieth Ramirez RN In Department: [facility] NURSING PROGon 06-14-2018 NURSING PROG HNO ID: [id number] Author: Gladis Doty RN Service: Neurosurgery Author Type: Registered Nurse Type: Nursing Progress Note Filed: 06/14/2018 9:38 AM Note Text: PACC Nurse Progress Note History AND Physical: PACC Visit Date: 06-03-18 Original HANDP Date: N/A ED visit Date: N/A Outside HANDP Scanned Date: N/A Labs Within Last 6 Months: N/A Imaging Within Last 12 Months: N/A Cardiac Testing: N/A BMI Percentile (PEDS): N/A Risk Assessment: N/A Anesthesia Review: N/A Narrative: N/A Pre-op Considerations: diabetic Chart Check: COMPLETED Gladis Doty RN June 14, 2018 9:37 AM [facility] NURSING PROGon 06-03-2018 NURSING PROG HNO ID: [id number] Author: Chantell (Rn) GRACE Demarco Service: ? Author Type: Registered Nurse Type: Nursing Progress Note Filed: 06/03/2018 2:17 PM Note Text: PACC Nurse Progress Note History AND Physical: PACC Visit Date: 06/03/18 Original HANDP Date: N/A ED visit Date: N/A Outside HANDP Scanned Date: N/A Labs Within Last 6 Months: CBC: Date 04/02/18 BMP/CMP: Date 04/02/18 HBA1C: Date 04/02/18 available in epic Imaging Within Last 12 Months: Chest X-ray Date of test: 05/07/18 Cardiac Testing: N/A Last Menstrual Period: LMP Date: N/A Postmenopausal >1yr: N/A, S/P Hysterectomy: Yes BMI Percentile (PEDS): N/A Risk Assessment: N/A Anesthesia Review: N/A Narrative: N/A Pre-op Considerations: DM IBS Chart Check: COMPLETED Chantell Demarco RN June 03, 2018 2:16 PM [facility] HOSPon 05-28-2018 HOSP Patient:Cristobal De Paz MRN: Height:5' 3(1.6 m) Weight:214 lb (97.07 kg) Outpatient Medications as of 06/29/18: dicyclomine (BENTYL) 20 mg tablet cephALEXin (KEFLEX) 500 mg capsule esomeprazole (NEXIUM) 40 mg capsule KLOR-CON M20 20 mEq tablet verapamil ER 180 mg 24 hr capsule buPROPion XL (WELLBUTRIN XL) 150 mg 24 hr tablet guaiFENesin (MUCINEX) 1,200 mg Ta12 albuterol HFA (PROVENTIL HFA, VENTOLIN HFA) 90 mcg/actuation inhaler FLUoxetine (PROZAC) 20 mg capsule traZODone (DESYREL) 100 mg tablet folic acid 800 mcg tablet levothyroxine (SYNTHROID) 100 mcg tablet lisinopril (ZESTRIL, PRINIVIL) 20 mg tablet atorvastatin (LIPITOR) 40 mg tablet pioglitazone (ACTOS) 30 mg tablet glimepiride (AMARYL) 4 mg tablet Cholecalciferol, Vitamin D3, (VITAMIN D) 1,000 unit cap turmeric 400 mg cap Apple Cider Vinegar 300 mg tab albuterol HFA (PROAIR HFA) 90 mcg/actuation inhaler insulin 70/30 NPH/regular units/mL (NOVOLIN 70/30 U-100 INSULIN) Insulin Syringe-Needle U-100 (BD INSULIN SYRINGE ULTRAFINE) 0.3 mL 31 gauge x 5/16 syrg naproxen (NAPROSYN) 375 mg tablet methotrexate 2.5 mg tablet CPAP ascorbic acid (VITAMIN C) 500 mg tablet Admission/Clinic Administered Medications as of 06/29/18: lidocaine 10 mg/mL (1 %) 1-2 mg injection (XYLOCAINE) lactated ringers infusion ceFAZolin iv piggyback 2 g in D5W (iso-osmotic) 100 mL (ANCEF) Problem List: Type 2 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 with hyperglycemia, with long-term current use of insulin (HCC) [E11.65, Z79.4] 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] Hyperlipidemia [E78.5] Hypothyroid [E03.9] Generalized postprandial abdominal pain [R10.84] Diarrhea [R19.7] IBS (irritable bowel syndrome) [K58.9] Depression [F32.9] Essential hypertension [I10] MARIBEL (obstructive sleep apnea) [G47.33] Cognitive decline [R41.89] Other symbolic dysfunction [R48.8] Actinic keratoses [L57.0] GERD without esophagitis [K21.9] Encounter for screening colonoscopy [Z12.11] Pain of foot [M79.673] 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] Hammer toe [M20.40] Bone spur [M77.9] Hypertension associated with diabetes (HCC) [E11.59, I10] Contusion of leg, left, sequela [S80.12XS] De Quervain's tenosynovitis, left [M65.4] Post-operative state [Z98.890] Joint stiffness of hand, left [M25.642] Allergies: No Known Allergies Date Verified:06/29/18 Lab Values No results within the last 30 days for the following basenames: K,HCT Progress Notes ([facility]): Nazanin Sang Pss 06/23/2018 2:11 PM Signed Reason for call Medical Advice Patient calling with concerns about UTI Symptoms. Patient had surgery,trial a week ago with Colorectal. She was given etcephALEXin (KEFLEX) 500 mg after surgery. Now having UTI symptoms for the past four days, but worsening today. Patient questions if antibiotics can be sent to [facility] in [place] [address]? Patient prefers not to come for a visit today. Patient would like a r capsuleurn call from clinical staff. Please call patient back at [phone] (confirmed best phone number) Best time to call Today anytime Libby Amaya, RN, RN 06/24/2018 9:22 AM Signed Call returned. Advised patient to contact PCP regarding UTI. May need possible urine culture sent. Discussed with patient SNS recovery. Patient stated [employer] rep out to see patient yesterday. Patient reporting great improvement with device until a few days ago. Rep examined device and concluded that leads had broken. Dressing reapplied and patient is anticipating second stage procedure next week due to great results. Patient verbalized understanding and will call office with any additional questions or concerns. Progress Notes ([facility]): Loreta Kennedy PA-C 06/22/2018 1:30 PM Signed OPERATIVE REPORT: PROCEDURE: Left first dorsal compartment release DATE: 05/21/2018 SURGICAL PATHOLOGY: none She is 4 weeks postop. She states that she is feeling great, and she mentions that the pain she used to have prior to the surgery is completely gone. He continues to have slight numbness over the superficial radial nerve distribution. She states that she has not been wearing her brace because she doesn't need to. She does complain of pain at the MP joints she had replaced last year in October; she states that she would like to be seen for this. PHYSICAL EXAM: On examination of the left wrist incision is well-healed with no signs of infection. Sensation on the ulnar, median, radial nerve distributions are intact. Sensation on the superficial radial nerve distribution is slightly decreased. AIN, PIN, ulnar motor are intact. Able to make a full fist. Negative tenderness in the first dorsal compartment. Negative Marci's. Negative tenderness with extension of the thumb against resistance. Able to fully flex and extend at the left index and middle MP joints but with some stiffness due to swelling and pain. There is smooth passive range of motion at the left index and middle MP joints without irritability. There is swelling noted about the MP joints of the middle and index fingers. Sensation on both sides of the fingers as well as a distal ends are intact. PLAN: At this point patient is feeling great and is not wearing the brace. I advised her to wear the brace for heavy activities only. She understood. As far as the numbness on the superficial radial nerve distribution and explained to her that this is not uncommon and he will progressively get better. As far as the pain of her left index and middle MP joints, I advised her to make the next follow-up appointment with Dr. Vinson and then they could discussed this problem. She agreed. Follow up in 4 weeks. Loreta Kennedy PA-C [facility] HOSPon 05-24-2018 HOSP Patient:Cristobal De Paz MRN: Height:5' 3(1.6 m) Weight:214 lb (97.07 kg) Outpatient Medications as of 06/15/18: esomeprazole (NEXIUM) 40 mg capsule KLOR-CON M20 20 mEq tablet verapamil ER 180 mg 24 hr capsule buPROPion XL (WELLBUTRIN XL) 150 mg 24 hr tablet guaiFENesin (MUCINEX) 1,200 mg Ta12 albuterol HFA (PROVENTIL HFA, VENTOLIN HFA) 90 mcg/actuation inhaler FLUoxetine (PROZAC) 20 mg capsule traZODone (DESYREL) 100 mg tablet folic acid 800 mcg tablet levothyroxine (SYNTHROID) 100 mcg tablet lisinopril (ZESTRIL, PRINIVIL) 20 mg tablet atorvastatin (LIPITOR) 40 mg tablet pioglitazone (ACTOS) 30 mg tablet glimepiride (AMARYL) 4 mg tablet Cholecalciferol, Vitamin D3, (VITAMIN D) 1,000 unit cap turmeric 400 mg cap Apple Cider Vinegar 300 mg tab albuterol HFA (PROAIR HFA) 90 mcg/actuation inhaler insulin 70/30 NPH/regular units/mL (NOVOLIN 70/30 U-100 INSULIN) Insulin Syringe-Needle U-100 (BD INSULIN SYRINGE ULTRAFINE) 0.3 mL 31 gauge x 5/16 syrg naproxen (NAPROSYN) 375 mg tablet methotrexate 2.5 mg tablet CPAP ascorbic acid (VITAMIN C) 500 mg tablet Admission/Clinic Administered Medications as of 06/15/18: lidocaine 10 mg/mL (1 %) 1-2 mg injection (XYLOCAINE) lactated ringers infusion cefTRIAXone 2 g in D5W 100 mL MB+ (ROCEPHIN) clindamycin iv piggyback 300 mg in D5W 50 mL (CLEOCIN) Problem List: Type 2 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 with hyperglycemia, with long-term current use of insulin (HCC) [E11.65, Z79.4] 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] Hyperlipidemia [E78.5] Hypothyroid [E03.9] Generalized postprandial abdominal pain [R10.84] Diarrhea [R19.7] IBS (irritable bowel syndrome) [K58.9] Depression [F32.9] Essential hypertension [I10] MARIBEL (obstructive sleep apnea) [G47.33] Cognitive decline [R41.89] Other symbolic dysfunction [R48.8] Actinic keratoses [L57.0] GERD without esophagitis [K21.9] Encounter for screening colonoscopy [Z12.11] Pain of foot [M79.673] 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 She will f/u as scheduled/prn.Chucho Rodrigues,RT,ROT,OBT Progress Notes ([facility] [place]): Loreta Kennedy PA-C 06/04/2018 10:20 AM Signed OPERATIVE REPORT: ? PROCEDURE: Left first dorsal compartment release ? DATE: 05/21/2018 ? SURGICAL PATHOLOGY: none ? Patient is 14 days post op. She states she is feeling better now that the splint has been removed, she has been using the hand lightly and states that the pain she used to have before is completely gone. In addition to this, she complains of some numbness on the fingers with the median nerve distribution. PHYSICAL EXAM: On examination of the left wrist incision is healing well with no signs of infection. Surgical glue is still intact. Sensation in the ulnar and radial, superficial radial nerve distributions are intact. Sensation in the median nerve distribution is slightly decreased when compared to the right hand. Able to make a full fist without difficulty. AIN, PIN, ulnar motor are intact. All carpal tunnel tests were negative. negative ulnar compression. Negative Spurling's. Radial pulse 2+. PLAN: Patient is doing great. At this point she will be placed into a carpal tunnel brace which she will wear for heavy activities for 2 more weeks, after this, she may wear the brace at night only for 4 more weeks. At the 6 week jasmin, she may be activities as tolerated. As far as the numbness and tingling I explained to her that this may be due to the splint and now that she is out of it, it shoulder get better, if this is not the case we will re-evaluate her during her next office visit. Patient agreed with the plan. Follow up in 2 weeks. Loreta Kennedy PA-C [facility] ANES Rebekah 05-21-2018 ANES POST HNO ID: [id number] Author: Reyes Lisa Service: Anesthesiology Author Type: Anesthesiologist Type: Anesthesia PostOp Filed: 05/21/2018 10:47 AM Note Text: POST ANESTHESIA EVALUATION NOTE SERVICE DATE: 05/21/2018 SERVICE TIME: 10:47 AM : 1950 Vitals: 05/21/18 0813 05/21/18 1010 Temp: 36.2 ?C (97.2 ?F) 36.4 ?C (97.6 ?F) 05/21/18 0813 05/21/18 1010 05/21/18 1020 05/21/18 1030 BP: 121/67 140/54 121/66 (!) 112/49 05/21/18 0813 05/21/18 1010 05/21/18 1020 05/21/18 1030 Pulse: 88 89 86 84 05/21/18 0813 05/21/18 1010 05/21/18 1020 05/21/18 1030 Resp: 16 11 10 10 05/21/18 0813 05/21/18 1010 05/21/18 1020 05/21/18 1030 SpO2: 97% 98% 99% 98% Validated Vital Signs: Yes No apparent anesthetic complications. The patient is appropriately hydrated with stable respiratory and cardiovascular status. Patient has safe and adequate airway control. The patient has appropriate pain relief and no significant post operative nausea or vomiting. The patient has achieved baseline mental status. Further assessment by Anesthesia Service: None Other Remarks: SIGNATURE: Reyes Lisa MD PATIENT NAME: Mary Jane De Paz DATE: May 21, 2018 PAGER/CONTACT #: [phone] pager [facility] ANES PREOPon 05-21-2018 ANES PREOP HNO ID: [id number] Author: Reyes Lisa Service: Anesthesiology Author Type: Anesthesiologist Type: Anesthesia PreOp Filed: 05/21/2018 8:47 AM Note Text: REGIONAL ANESTHESIOLOGY DAY OF SURGERY NOTE PATIENT NAME: Mary Jane De Paz : 1950 Procedure(s) (LRB): RELEASE CONTRACTURE DEQUERVAINS (Left) Surgeon(s): Beto Khan Estimated body mass index is 37.38 kg/m? as calculated from the following: Height as of this encounter: 160 cm (5' 3). Weight as of this encounter: 95.7 kg (211 lb). ASA Class: 3 Adequate NPO status: Yes Allergies: ALLERGIES No Known Allergies Airway Assessment: MP 2; Neck ROM: Full ROM without neurologic symptoms; Airway Evaluation: No significant abnormalities Dentition: Teeth intact Symptoms of Sleep Apnea: Formally diagnosed but non-compliant with therapy Most recent lab results: Hemoglobin 11.8 04/02/2018 Hematocrit 36.6 04/02/2018 Potassium 4.7 04/02/2018 Platelet Count 417 04/02/2018 PT Sec 9.6 01/06/2013 APTT 25.2 01/06/2013 PT INR 0.9 01/06/2013 Creatinine 1.06 04/02/2018 EKG: Not indicated Vitals: 05/21/18 0813 BP: 121/67 Pulse: 88 Resp: 16 Temp: 36.2 ?C (97.2 ?F) TempSrc: Temporal Artery SpO2: 97% Weight: 95.7 kg (211 lb) Height: 160 cm (5' 3) Previous Anesthesia: No history of adverse event Family history of anesthetic problems: None Additional Physical Exam: Lungs: Lungs clear to auscultation. Good diaphragmatic excursion. Cardiac: Normal S1 and S2; no rubs, no murmurs and no gallops Additional pertinent findings: N/A Other Medical Problems/ Important Considerations: Denies chest pain and SOB with exertion. Denies change in functional capacity. GERD well controlled with no positional symptoms. Mild CAD Hypothyroid IDDM MARIBEL, no CPAP use Chronic Beta Manny medication administered within 24 hours: N/A Anesthetic risks, benefits, alternatives, personnel and consent discussed: Yes Patient agrees to proceed: Yes Blood Products: Not anticipated for this procedure Anesthetic Plan: General LMA; Standard ASA Monitors Pain Management Plan: Parenteral or Oral EPIC Chart Review ACTIVE PROBLEM LIST Type 2 Diabetes Mellitus With Hyperglycemia, With Long-Term Current Use of Insulin (Hcc) Blepharochalasis Hyperlipidemia Hypothyroid Generalized Postprandial Abdominal Pain Diarrhea Ibs (Irritable Bowel Syndrome) Depression Essential Hypertension Maribel (Obstructive Sleep Apnea) Cognitive Decline Other Symbolic Dysfunction Actinic Keratoses Gerd Without Esophagitis Encounter for Screening Colonoscopy Pain of Foot 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 Hypertension Associated With Diabetes (Hcc) Contusion of Leg, Left, Sequela De Quervain's Tenosynovitis, Left PAST MEDICAL HISTORY Diagnosis Date - Allergic rhinitis - Arthritis [facility] orthopedics, knee - Asthma - Depression - Diarrhea GI Dr Salazar - Environmental allergies - GERD (gastroesophageal reflux disease) - HTN (hypertension) - Hypothyroidism - Mixed hyperlipidemia - NIDDM (non-insulin dependent 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) - MARIBEL on CPAP CPAP 9Cm - Renal lesion 01/15/15 Suggest renal US every 1-2 years per PCP or nephro. - Snoring PAST SURGICAL HISTORY Procedure Laterality Date - COLONOSCOPY 11/05/2016 Tammi- divertiuclosis, internal hemorrhoids, repeat in 5 years - EGD 11/05/2016 Tammi- gastritis - HYSTERECTOMY - OOPHORECTOMY PARTIAL OR TOTAL - PAST SURGICAL HISTORY OF 2009 hemmroidectomy/sphincterectomy - Dr Nichole - PAST SURGICAL HISTORY OF 2008 total left knee replacement - PAST SURGICAL HISTORY OF 2003 partial right knee replacement - PAST SURGICAL HISTORY OF 1990 total hysterectomy - PAST SURGICAL HISTORY OF 2010 lDr Mansoor - [place] elbow fracture - traumatic. radial head replacement - PAST SURGICAL HISTORY OF Bilateral 2016 hand surgery - TUBAL LIGATION HX FAMILY HISTORY Problem Relation Age of Onset - other (polio) Mother - Diabetes Father - other (Squamous cell ca) Father - other (renal cell ca) Father 1999 - other (htn) Father - other (renal cell ca) Brother 2010 - other (Thyroid Cancer) Sister - other (thyroid disease) Sister ca Social History: Social History Substance Use Topics - Smoking status: Former Smoker Packs/day: 1.50 Years: 22.00 Types: Cigarettes Quit date: 1989 - Smokeless tobacco: Never Used - Alcohol use Yes Comment: few times a year. mixed drinls/marcelino. 3 in sitting. No current facility-administered medications on file prior to encounter. Current Outpatient Prescriptions on File Prior to Encounter: FLUoxetine (PROZAC) 20 mg capsule Take 3 capsules by mouth once daily. traZODone (DESYREL) 100 mg tablet Take 1 tablet by mouth daily at bedtime. As needed for sleep levothyroxine (SYNTHROID) 100 mcg tablet Take 1 tablet by mouth once daily. lisinopril (ZESTRIL, PRINIVIL) 20 mg tablet Take 1 tablet by mouth once daily. atorvastatin (LIPITOR) 40 mg tablet Take 1 tablet by mouth once daily. pioglitazone (ACTOS) 30 mg tablet Take 1 tablet by mouth once daily. glimepiride (AMARYL) 4 mg tablet Take 1 tablet by mouth twice daily with meals. albuterol HFA (PROAIR HFA) 90 mcg/actuation inhaler Inhale 2 Puffs as instructed every 6 hours as needed (for cough and wheeze). KLOR-CON M20 20 mEq tablet Take 1 tablet by mouth once daily. insulin 70/30 NPH/regular units/mL (NOVOLIN 70/30 U-100 INSULIN) Inject 26 Units subcutaneously before breakfast and 18 Units before dinner. folic acid 800 mcg tablet Take 1 tablet by mouth once daily. dicyclomine (BENTYL) 20 mg tablet Take 1 tablet by mouth before meals and at bedtime. Cholecalciferol, Vitamin D3, (VITAMIN D) 1,000 unit cap Take 1,000 Units by mouth once daily. turmeric 400 mg cap Take 1 capsule by mouth once daily. Apple Cider Vinegar 300 mg tab Take 300 mg by mouth once daily. esomeprazole (NEXIUM) 40 mg capsule Take 1 capsule by mouth twice daily before meals. Insulin Syringe-Needle U-100 (BD INSULIN SYRINGE ULTRAFINE) 0.3 mL 31 gauge x 5/16 syrg Inject insulin twice a day naproxen (NAPROSYN) 375 mg tablet Take 1 tablet by mouth twice daily with meals. methotrexate 2.5 mg tablet Take 1 tablet by mouth every Thursday. (Patient taking differently: Take 10 mg by mouth every Thursday. ) CPAP Auto CPAP 4-16 CM H2O WITH A 20 MINUTE RAMP, CHIN STRAP, HUMIDITY. LIFETIME SUPPLIES. ascorbic acid (VITAMIN C) 500 mg tablet Take 1 tablet by mouth once daily. Inpatient medications reviewed in [facility]. I have interviewed and examined the patient. I have reviewed the medical record and/or the pre-anesthesia evaluation, pertinent labs, and test results. Significant changes in the patient's condition since the History and Physical, not otherwise documented in primary service progress notes: No This contains updated information obtained within 48 hours of Surgery/Procedure. SIGNATURE: Reyes Lisa MD PATIENT NAME: Mary Jane De Paz DATE: May 21, 2018 TIME: 8:46 AM PAGER/CONTACT #: [phone] (pager) [facility] PT EDon 05-21-2018 PT ED HNO ID: [id number] Author: Mariana (Rn) GRACE Simmons Service: Nursing Author Type: Registered Nurse Type: Patient Education Filed: 05/21/2018 11:15 AM Note Text: PATIENT ATTENDANT HOMEGOING INSTRUCTIONS C O N F I D E N T I A L I N F O R M A T I O N The checked information below will help you return to normal function as soon as possible after your surgery. Please read it carefully and save for future reference. PATIENT NAME: Mary Jane De Paz ADMISSION DATE: 05/21/2018 DISCHARGE DATE: ACTIVITY: We recommend not staying alone for [address] before 24 hours or you are no longer taking narcotic pain medication, or when instructed by your doctor. Go home and rest. Resume normal activity after 24 hours or when instructed by your doctor. Do not use power tools or machinery for 24 hours. Do not make important personal or business decisions. DIET: Your stomach may be sensitive: begin slowly by drinking water, then clear liquids, and then a light meal. PAIN CONTROL: Follow your doctor's instruction. If your pain relief is ineffective, contact your doctor. CALL DOCTOR IF: If any signs of infection develops: redness, swelling, pus or drainage from wound, fever, swollen glands or light headedness, fainting, cold and clammy skin, and confusion should also be reported at once. If you have shortness of breath or difficulty swallowing. Your temperature is greater than 101 degrees Farenheit. You are having difficulty voiding. You have questions or concern specific to your procedure or surgery. MISCELLANEOUS INSTRUCTIONS: Please follow any additional instructions given to you. Electronically SIGNED by Mariana Simmons RN May 21, 2018 11:15 AM [facility] PT ED HNO ID: [id number] Author: Shanita HirschRn) GRACE Mello Service: Nursing Author Type: Registered Nurse Type: Patient Education Filed: 05/21/2018 8:13 AM Note Text: PRE OP LEARNING ASSESSMENT PROCEDURE/SURGERY: SURGERY READINESS TO LEARN COGNITIVE ABILITY: Alert and oriented MOTIVATION TO LEARN: Interested FAMILY SUPPORT: Unable to assess - Family not present PATIENT LEARNS BEST BY: Individual Instruction Verbal Instruction FACTORS AFFECTING LEARNING: None PHYSICAL LIMITATIONS AFFECTING LEARNING: None [facility] NURSING PROGon 05-12-2018 NURSING PROG HNO ID: [id number] Author: Saniya HirschRn) GRACE Roy Service: General Surgery Author Type: Registered Nurse Type: Nursing Progress Note Filed: 05/12/2018 1:40 PM Note Text: PACC Nurse Progress Note History AND Physical: PACC Visit Date: 05-07-18 Original HANDP Date: N/A ED visit Date: N/A Outside HANDP Scanned Date: N/A Labs Within Last 6 Months: CBC: Date 04-02-18 BMP/CMP: Date 04-02-18 HBA1C: Date 04-02-18 Within acceptable limits, results in EPIC Imaging Within Last 12 Months: Chest X-ray 05-07-18 Results in [facility] Cardiac Testing: N/A Last Menstrual Period: LMP Date: Not recorded Postmenopausal >1yr: Yes, S/P Hysterectomy: Yes BMI Percentile (PEDS): N/A Risk Assessment: N/A Anesthesia Review: N/A Narrative: N/A Pre-op Considerations: Per HANDP: Diabetes - Last a1c 8.1 HTN - Well controlled Hyperlipidemia Morbid Obesity MARIBEL - Patient is not able to use CPAP/BIPAP- waiting on equipment/ BMI 37.39 Asthma- PRN inhaler use Diarrhea Recent cold symptoms- coughing, dyspnea with exertion- used inhaler last night. At appointment lungs clear, Sp02- 100%- Advised to call if symptoms get worse - went express care 05/07- viral URI- CXR negative Chart Check: COMPLETED Saniya Roy RN May 12, 2018 1:38 PM [facility] ED NOTEon 04-18-2018 ED NOTE HNO ID: [id number] Author: Ernst Campbell (Medic) Service: (none) Author Type: Housekeeping/Laundry Supervisor and Child Welfare Consultant Type: ED Notes Filed: 04/21/2018 9:35 AM Note Text: Emergency Services: ED Call Back Questionnaire SERVICE DATE: 04/18/2018 Are you feeling better? Yes Any questions about discharge instructions and follow-up care? No Were you able to make a follow up appointment? Yes Do you have any further questions? No Is there anything that we could have done differently to improve your ED visit? No SIGNATURE: Noreen Pavon PATIENT NAME: Mary Jane De Paz DATE: April 21, 2018 TIME: 9:35 AM [facility] ED NOTE HNO ID: [id number] Author: Juana Calderon) GRACE Berkowitz Service: (none) Author Type: Registered Nurse Type: ED Notes Filed: 04/18/2018 1:48 PM Note Text: Patient discharged per MD orders, RN at bedside to explain and review s/sx of worsening condition and to return to ED if worsening s/sx develop. Follow up care and questions answered with pt and family, and [facility] My Chart access code and instructions for use provided and encouraged. Pt ambulatory with steady gait on discharge. [facility] ED NOTE HNO ID: [id number] Author: Juana Calderon) GRACE Berkowitz Service: (none) Author Type: Registered Nurse Type: ED Notes Filed: 04/18/2018 12:50 PM Note Text: Wound cleansed and sterile gauze applied. [facility] ED NOTE HNO ID: [id number] Author: Juana (Rn) GRACE Berkowitz Service: (none) Author Type: Registered Nurse Type: ED Notes Filed: 04/18/2018 12:37 PM Note Text: Patient arrived to ED with complaints of right ankle laceration after crockpot fell and shattered, piece of ceramic liner cut the ankle. Plan of care: -Monitor Patient's Vital Signs for changes in condition -Monitor patient for changes in pain -Maintain patient safety and privacy -Provide comfort measures -Call light in place -Siderails up, bed in locked and low position [facility] ED PROV NOTEon 04-18-2018 ED PROV NOTE HNO ID: [id number] Author: MELO Jacobson Pa-C Service: Emergency Medicine Author Type: Physician Industrial/Organizational Psychologist Type: ED Provider Notes Filed: 04/18/2018 1:59 PM Note Text: ED Provider Note Patient Name: Mary Jane De Paz SERVICE DATE: 04/18/18 History Patient presents with: Laceration: Right ankle Patient is a 68-year-old female history of diabetes, depression, hypertension presents the ED today with concern of right ankle wound. She admits that she dropped a crock pot when the liner shattered and cut the outside of her right ankle. She had difficulty controlling the bleeding and presented here to the ED. She is not on blood thinners. PAST MEDICAL HISTORY Diagnosis Date - Allergic rhinitis - Arthritis [facility] orthopedics, knee - Asthma - Depression - Diarrhea GI Dr Salazar - Environmental allergies - GERD (gastroesophageal reflux disease) - HTN (hypertension) - Hypothyroidism - Mixed hyperlipidemia - NIDDM (non-insulin dependent 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) - MARIBEL on CPAP CPAP 9Cm - Renal lesion 01/15/15 Suggest renal US every 1-2 years per PCP or nephro. - Snoring PAST SURGICAL HISTORY Procedure Laterality Date - COLONOSCOPY 11/05/2016 Tammi- divertiuclosis, internal hemorrhoids, repeat in 5 years - EGD 11/05/2016 Tammi- gastritis - PAST SURGICAL HISTORY OF 2009 hemmroidectomy/sphincterectomy - Dr Nichole - PAST SURGICAL HISTORY OF 2008 total left knee replacement - PAST SURGICAL HISTORY OF 2003 partial right knee replacement - PAST SURGICAL HISTORY OF 1990 total hysterectomy - PAST SURGICAL HISTORY OF 2010 lDr Mansoor - [place] elbow fracture - traumatic. radial head replacement - PAST SURGICAL HISTORY OF Right 2016 hand surgery FAMILY HISTORY Problem Relation Age of Onset - other (polio) Mother - Diabetes Father - other (Squamous cell ca) Father - other (renal cell ca) Father 1999 - other (htn) Father - other (renal cell ca) Brother 2010 - other (Thyroid Cancer) Sister - other (thyroid disease) Sister ca Social History Social History Main Topics - Smoking status: Former Smoker Packs/day: 1.50 Years: 22.00 Types: Cigarettes Quit date: 1989 - Smokeless tobacco: Never Used - Alcohol use Yes Comment: occassionally - Drug use: No - Sexual activity: Yes Partners: Male ALLERGIES No Known Allergies Review of Systems Constitutional: Negative for chills and fever. HENT: Negative for sore throat and voice change. Eyes: Negative for visual disturbance. Respiratory: Negative for cough and shortness of breath. Cardiovascular: Negative for chest pain and palpitations. Gastrointestinal: Negative for abdominal pain, diarrhea, nausea and vomiting. Genitourinary: Negative for dysuria and urgency. Musculoskeletal: Negative for back pain. Skin: Positive for wound. Negative for color change. Neurological: Negative for weakness, light-headedness and headaches. Psychiatric/Behavioral: Negative for agitation. Physical Exam BP 151/62 Pulse 80 Temp (Src) 97.6 (Oral) Resp 16 Ht 5' 3 (1.60m) Wt 211 lb (95.7kg) SpO2 97% BMI 37.39 kg/(m2). Physical Exam Constitutional: She is oriented to person, place, and time. She appears well-developed and well-nourished. No distress. HENT: Head: Normocephalic. Eyes: Pupils are equal, round, and reactive to light. Neck: Normal range of motion. Cardiovascular: Normal rate. Dorsalis pedis 2+ bilaterally Neurological: She is alert and oriented to person, place, and time. Plantar dorsiflexion normal, left ankle Cutaneous sensitivity intact lower extremity bilaterally. Skin: Skin is warm. Capillary refill takes less than 2 seconds. She is not diaphoretic. 2 cm wound noted to the lateral malleolus region, bleedings controlled with direct pressure Nursing note and vitals reviewed. Diagnostic Testing ED Labs Ordered and Reviewed - No data to display LAC REPAIR Date/Time: 04/18/2018 1:57 PM Performed by: DIONNA BRAND) Authorized by: DIONNA BRAND (DERECK) Consent: Consent obtained: Verbal Consent given by: Patient Risks discussed: Pain, infection, need for additional repair, nerve damage, poor cosmetic result and poor wound healing Alternatives discussed: No treatment Anesthesia (see MAR for exact dosages): Anesthesia method: Local infiltration and topical application Topical anesthetic: LET Local anesthetic: Lidocaine 1% w/o epi Laceration details: Location: Leg Leg location: R lower leg Length (cm): 3 Depth (mm): 3 Repair type: Repair type: Simple Pre-procedure details: Preparation: Patient was prepped and draped in usual sterile fashion Exploration: Hemostasis achieved with: Direct pressure Wound extent: no fascia violation noted, no foreign bodies/material noted, no nerve damage noted, no tendon damage noted and no vascular damage noted Contaminated: no Treatment: Area cleansed with: Saline Amount of cleaning: Standard Irrigation solution: Sterile saline Irrigation volume: 250 Irrigation method: Pressure wash Visualized foreign bodies/material removed: no Skin repair: Repair method: Sutures Suture size: 5-0 Suture material: Nylon Suture technique: Simple interrupted Number of sutures: 4 Approximation: Approximation: Close Vermilion border: well-aligned Post-procedure details: Dressing: Non-adherent dressing ED Course / Clinical Impression Clinical Impressions as of Apr 18 1358 Laceration of right lower extremity, initial encounter MDM / Disposition / Plan Patient is a 68-year-old female history of diabetes, depression, hypertension presents the ED today with concern of right ankle wound Vitals: Stable on arrival Labs: None needed Imaging: None needed Please see procedure note above. Tetanus is up-to-date. She was given strict return precautions. Low concern for retained foreign body. Wound was irrigated, visualized in bloodless field through full range of motion. At this time is to discharge home and to have follow-up to remove sutures in one week. She is okay with this plan, all questions answered. SIGNATURE: DERECK Jacobson (Dereck) MELO Brand 04/18/18 1359 [facility] HOSPon 04-13-2018 HOSP Patient:Cristobal De Paz MRN: Height:5' 3(1.6 m) Weight:211 lb (95.709 kg) Outpatient Medications as of 05/21/18: verapamil ER 180 mg 24 hr capsule buPROPion XL (WELLBUTRIN XL) 150 mg 24 hr tablet guaiFENesin (MUCINEX) 1,200 mg Ta12 albuterol HFA (PROVENTIL HFA, VENTOLIN HFA) 90 mcg/actuation inhaler FLUoxetine (PROZAC) 20 mg capsule traZODone (DESYREL) 100 mg tablet folic acid 800 mcg tablet levothyroxine (SYNTHROID) 100 mcg tablet dicyclomine (BENTYL) 20 mg tablet lisinopril (ZESTRIL, PRINIVIL) 20 mg tablet atorvastatin (LIPITOR) 40 mg tablet pioglitazone (ACTOS) 30 mg tablet glimepiride (AMARYL) 4 mg tablet Cholecalciferol, Vitamin D3, (VITAMIN D) 1,000 unit cap turmeric 400 mg cap Apple Cider Vinegar 300 mg tab esomeprazole (NEXIUM) 40 mg capsule albuterol HFA (PROAIR HFA) 90 mcg/actuation inhaler KLOR-CON M20 20 mEq tablet insulin 70/30 NPH/regular units/mL (NOVOLIN 70/30 U-100 INSULIN) Insulin Syringe-Needle U-100 (BD INSULIN SYRINGE ULTRAFINE) 0.3 mL 31 gauge x 5/16 syrg naproxen (NAPROSYN) 375 mg tablet methotrexate 2.5 mg tablet CPAP ascorbic acid (VITAMIN C) 500 mg tablet Admission/Clinic Administered Medications as of 05/21/18: lidocaine 10 mg/mL (1 %) 1-2 mg injection (XYLOCAINE) lactated ringers infusion ceFAZolin iv piggyback 2 g in D5W (iso-osmotic) 100 mL (ANCEF) Problem List: Type 2 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 with hyperglycemia, with long-term current use of insulin (HCC) [E11.65, Z79.4] 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] Hyperlipidemia [E78.5] Hypothyroid [E03.9] Generalized postprandial abdominal pain [R10.84] Diarrhea [R19.7] IBS (irritable bowel syndrome) [K58.9] Depression [F32.9] Essential hypertension [I10] MARIBEL (obstructive sleep apnea) [G47.33] Cognitive decline [R41.89] Other symbolic dysfunction [R48.8] Actinic keratoses [L57.0] GERD without esophagitis [K21.9] Encounter for screening colonoscopy [Z12.11] Pain of foot [M79.673] 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] Hammer toe [M20.40] Bone spur [M77.9] Hypertension associated with diabetes (HCC) [E11.59, I10] Contusion of leg, left, sequela [S80.12XS] De Quervain's tenosynovitis, left [M65.4] Allergies: No Known Allergies Date Verified:05/21/18 Lab Values No results within the last 30 days for the following basenames: K,HCT Progress Notes ([facility] REJ): Tylor Mesa MD 05/20/2018 3:00 PM Signed New Patient Consult REASON FOR VISIT Mary Jane De Paz is a 68 year old female who is scheduled for a consult at the request of Julieth Lemus) Kathy for No chief complaint on file.. My final recommendations will be communicated back to the requesting physician by the way of the shared medical record, fax, or via US Mail History of Present Illness: Complaint of fecal incontinence, chronic diarrhea. Patient reports hemorrhoidectomy in 2009 in [place] and was told anal sphincter was cut. Issues with incontinence and diarrhea since then. Patient has been treated by Dr. Nichole in the past for repair. Patient unsure of details. 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 She had a procedure in [address] Nichole that sounds like a sphincteroplasty. She not have any relief from this. She reports daily leakage as well as one very bad episode every week. She has tried medication such as fiber and Imodium without improvement in symptoms. FUNCTIONAL STATUS: Participate in moderate recreational activities, such as golf, bowling, dancing, doubles tennis, or throwing a baseball or football (6.00 METs) PAST MEDICAL HISTORY Diagnosis Date - Allergic rhinitis - Arthritis [facility], knee - Asthma - Depression - Diarrhea GI Dr Salazar - Environmental allergies - GERD (gastroesophageal reflux disease) - HTN (hypertension) - Hypothyroidism - Mixed hyperlipidemia - NIDDM (non-insulin dependent 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) - MARIBEL on CPAP CPAP 9Cm - Renal lesion 01/15/15 Suggest renal US every 1-2 years per PCP or nephro. - Snoring PAST SURGICAL HISTORY Procedure Laterality Date - COLONOSCOPY 11/05/2016 Tammi- divertiuclosis, internal hemorrhoids, repeat in 5 years - EGD 11/05/2016 Tammi- gastritis - HYSTERECTOMY - OOPHORECTOMY PARTIAL OR TOTAL - PAST SURGICAL HISTORY OF 2009 hemmroidectomy/sphincterectomy - Dr Nichole - PAST SURGICAL HISTORY OF 2008 total left knee replacement - PAST SURGICAL HISTORY OF 2003 partial right knee replacement - PAST SURGICAL HISTORY OF 1990 total hysterectomy - PAST SURGICAL HISTORY OF 2010 lDr Mansoor - [place] elbow fracture - traumatic. radial head replacement - PAST SURGICAL HISTORY OF Bilateral 2016 hand surgery - TUBAL LIGATION HX FAMILY HISTORY Problem Relation Age of Onset - other (polio) Mother - Diabetes Father - other (Squamous cell ca) Father - other (renal cell ca) Father 1999 - other (htn) Father - other (renal cell ca) Brother 2010 - other (Thyroid Cancer) Sister - other (thyroid disease) Sister ca Social History Substance Use Topics - Smoking status: Former Smoker Packs/day: 1.50 Years: 22.00 Types: Cigarettes Quit date: 1989 - Smokeless tobacco: Never Used - Alcohol use Yes Comment: few times a year. mixed drinls/marcelino. 3 in sitting. The patient has the following: Problem List Noted Noted By Resolved Resolved By De Quervain's tenosynovitis, left 01/09/2018 Beto Khan No Contusion of leg, left, sequela 04/30/2017 Anthony Andrews) Connie No Hypertension associated with diabetes (HCC) 04/13/2017 Alpa Hanson No Pain of foot 11/27/2016 Maddie Carla Debarr No Osteoarthritis of foot 11/27/2016 Maddie Carla Debarr No Hammer toe 11/27/2016 Maddie Carla Debarr No Bone spur 11/27/2016 Maddie Carla Saraharr No GERD without esophagitis 10/09/2016 Tarah Fitch No Overview Signed 10/09/2016 10:53 AM by Tarah Fitch Coord Added automatically from request for surgery [id number] Encounter for screening colonoscopy 10/09/2016 Tarah Fitch No Overview Signed 10/09/2016 10:53 AM by Tarah Fitch Coord Added automatically from request for surgery [id number] Actinic keratoses 07/30/2016 Shaunna (Automatic Edger) Nevaeh No Other symbolic dysfunction 04/22/2016 Rosario (Tubing Oiler) SETH Marmolejo/GEODUCK DIVER No Cognitive decline 01/10/2016 Dionna (Ot/L) Andre No MARIBEL (obstructive sleep apnea) 09/17/2015 Alpa Hanson No Essential hypertension 10/14/2014 Alpa Hanson No Depression 04/28/2014 Alpa Hanson No Generalized postprandial abdominal pain 09/01/2013 Sonam (Automatic Edger Folliett Vranic No Diarrhea 09/01/2013 Sonam (Automatic Edger Folliett Vranic No IBS (irritable bowel syndrome) 09/01/2013 Sonam (Automatic Edger Folliett Vranic No Hypothyroid 11/28/2012 Alpa Hanson No Hyperlipidemia 08/04/2012 Adrian Mcfarland (Melo) Bella No Blepharochalasis 08/05/2010 Naty Gill LPN No Type 2 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 with hyperglycemia, with long-term current use of insulin (HCC) 02/27/2001 Donavon Page [facility] No HTN (hypertension) 12/05/2011 Donavon Page [facility] 10/14/2014 Alpa Hanson MEDICATIONS Current Outpatient Prescriptions: verapamil ER 180 mg 24 hr capsule Take 1 capsule by mouth once daily. Disp: 90 capsule Rfl: 3 buPROPion XL (WELLBUTRIN XL) 150 mg 24 hr tablet Take 1 tablet by mouth once daily. In morning Disp: 90 tablet Rfl: 1 guaiFENesin (MUCINEX) 1,200 mg Ta12 Take 1 tablet by mouth as needed. Disp: Rfl: albuterol HFA (PROVENTIL HFA, VENTOLIN HFA) 90 mcg/actuation inhaler Inhale 2 Puffs as instructed every 4 hours as needed for Wheezing/Shortness of Breath. Disp: 1 Inhaler Rfl: 0 FLUoxetine (PROZAC) 20 mg capsule Take 3 capsules by mouth once daily. Disp: 270 capsule Rfl: 3 traZODone (DESYREL) 100 mg tablet Take 1 tablet by mouth daily at bedtime. As needed for sleep Disp: 90 tablet Rfl: 3 folic acid 800 mcg tablet Take 1 tablet by mouth once daily. Disp: 90 tablet Rfl: 3 levothyroxine (SYNTHROID) 100 mcg tablet Take 1 tablet by mouth once daily. Disp: 90 tablet Rfl: 3 dicyclomine (BENTYL) 20 mg tablet Take 1 tablet by mouth before meals and at bedtime. Disp: 360 tablet Rfl: 1 lisinopril (ZESTRIL, PRINIVIL) 20 mg tablet Take 1 tablet by mouth once daily. Disp: 90 tablet Rfl: 3 atorvastatin (LIPITOR) 40 mg tablet Take 1 tablet by mouth once daily. Disp: 90 tablet Rfl: 3 pioglitazone (ACTOS) 30 mg tablet Take 1 tablet by mouth once daily. Disp: 90 tablet Rfl: 2 glimepiride (AMARYL) 4 mg tablet Take 1 tablet by mouth twice daily with meals. Disp: 180 tablet Rfl: 2 Cholecalciferol, Vitamin D3, (VITAMIN D) 1,000 unit cap Take 1,000 Units by mouth once daily. Disp: Rfl: turmeric 400 mg cap Take 1 capsule by mouth once daily. Disp: Rfl: Apple Cider Vinegar 300 mg tab Take 300 mg by mouth once daily. Disp: Rfl: esomeprazole (NEXIUM) 40 mg capsule Take 1 capsule by mouth twice daily before meals. Disp: 180 capsule Rfl: 0 albuterol HFA (PROAIR HFA) 90 mcg/actuation inhaler Inhale 2 Puffs as instructed every 6 hours as needed (for cough and wheeze). Disp: 1 Inhaler Rfl: 0 KLOR-CON M20 20 mEq tablet Take 1 tablet by mouth once daily. Disp: 90 tablet Rfl: 3 insulin 70/30 NPH/regular units/mL (NOVOLIN 70/30 U-100 INSULIN) Inject 26 Units subcutaneously before breakfast and 18 Units before dinner. Disp: 1 Vial Rfl: 3 Insulin Syringe-Needle U-100 (BD INSULIN SYRINGE ULTRAFINE) 0.3 mL 31 gauge x 5/16 syrg Inject insulin twice a day Disp: 100 Syringe Rfl: 3 naproxen (NAPROSYN) 375 mg tablet Take 1 tablet by mouth twice daily with meals. Disp: 60 tablet Rfl: 6 methotrexate 2.5 mg tablet Take 1 tablet by mouth every Thursday. (Patient taking differently: Take 10 mg by mouth every Thursday. ) Disp: 12 tablet Rfl: 1 CPAP Auto CPAP 4-16 CM H2O WITH A 20 MINUTE RAMP, CHIN STRAP, HUMIDITY. LIFETIME SUPPLIES. Disp: 1 Device Rfl: 0 ascorbic acid (VITAMIN C) 500 mg tablet Take 1 tablet by mouth once daily. Disp: Rfl: 0 No current facility-administered medications for this visit. CURRENT ALLERGIES ALLERGIES No Known Allergies REVIEW OF SYSTEMS PAIN ASSESSMENT: General: No weight loss, malaise or fevers. Neuro: negative Respiratory: Asthma, MARIBEL CPAP Cardiovascular: Positive for: HLD, Hypertension GI: See HPI : No history of UTI in past 6 weeks. No history of renal failure. Not currently on or requiring dialysis. No history of symptoms or problems. 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 : N/A Endocrine: Diabetes Mellitus on oral agent Hematology: No history of bleeding or clotting disorder. Pt is not taking anti-coagulation or platelet medications. No history of hematological symptoms or problems. Oncology: No history of CA metastasis, chemo within 30 days, or radiotherapy within 90 days. Has not lost 10% of body wt in 6 months. No history of oncological symptoms or problems. Psych: Depression Musculoskeletal: Negative for joint pain or swelling, back pain or muscle pain. Skin: Negative for lesions, rash and itching. PHYSICAL EXAMINATION BP 102/62 Pulse 85 General Appearance: Well appearing, alert, in no acute distress, well-hydrated, well nourished. Skin: Skin color, texture, turgor normal, no suspicious rashes or lesions Head: Normocephalic, no masses, lesions, tenderness or abnormalities Oropharynx: Lips, mucosa, and tongue normal, teeth and gums normal, oropharynx normal Neck: Supple, no adenopathy; thyroid symmetric, normal size, no bruits Extremities: No deformities, edema, skin discoloration, clubbing or cyanosis. Good capillary refill. Neuro: Gait normal. Reflexes normal and symmetric. Sensation grossly intact. Abdomen: Normal abdominal exam, Negative CVA tenderness Anorectal: External exam reveals anterior scar consistent with sphincteroplasty. Digital rectal exam and bimanual exam reveals very thin rectovaginal septum, weak squeeze Newborn Photographer present: Yes, Lissett Amaya Anoscopy: The patient was placed in chest-knee position. After digital exam with a lubricated finger, the scope was easily inserted. 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 We discussed physical therapy which she is nondistended and. He also discussed sacral nerve stimulation which she is excited to try. We will set this up for the near future. Tylor Mesa MD DATE: 05/20/18 Previous Version Progress Notes ([facility] JENN): Marcela Richard LYNDON 05/14/2018 8:22 AM Signed Order pended please file. Yamilex Whitfield MD, MD 05/14/2018 8:47 AM Signed The following approved medication requests have been filed: Signed Prescriptions Disp Refills verapamil ER 180 mg 24 hr capsule 90 capsule 3 Sig: Take 1 capsule by mouth once daily. BEVERLEY: No Yamilex Whitfield MD Thank you. Any questions/concerns? Normal [facility] Established Visit (Orthopaed ic Surgery)on 03-07-2018 Established Visit (Orthopaedic Surgery) Chief ComplaintPatient returns FUV s/p left index and long MP joint arthroplasties, with index finger DIP fusion. RL History of Present IllnessASSESSMENT + PLAN :Probable synovitis flare at left index and long MP arthroplastiesThe range of motion is good. Clinically there does not appear to be an infection. The x-rays do not show any evidence of loosening. We discussed the options for management. Given that anti-inflammatories are not doing the job, we agreed on a trial of a Medrol Dosepak.I reviewed the risks of oral steroids, including GI upset, adrenal suppression, and bone thinning, though these risks are minimal for a short course like a Dosepak. The transient elevation of blood glucose measurement was also reviewed. A prescription for Medrol Dosepak was electronically transmitted to their pharmacy of choice.Contact my office if there is any clinical worsening, or with any additional concerns. HI STORY :Patient returns 3 months after last visit. She was doing well after the left hand surgery. Over the last week or so she has developed increasing discomfort in both the index and long MP knuckles. She otherwise feels constitutional well. Pain is only with motion, not significant at rest. No change in the range of motion. No numbness or tingling. No squeaking. 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) (M19.042) Primary osteoarthritis of right hand (715.14) (M19.041) Trigger middle finger of right hand (727.03) (M65.331) Family History Family history of 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 (V18.0) (Z83.3) Family history of hypertension (V17.49) (Z82.49) Family history of malignant neoplasm (V16.9) (Z80.9) Social History Non-smoker (V49.89) (Z78.9) Social alcohol use (Z78.9) Allergies No Known Drug Allergies Recorded By: Ruth Driscoll; 10/26/2015 2:33:30 PM Current Meds MethylPREDNISolone 4 MG Oral Tablet Therapy Pack; Take as directed;Therapy: 21Jan2017 to (Last Rx:21Jan2017) Requested for: 24Jan2017 Ordered Rx By: Bruna Delgado; Dispense: 0 Days ; #:1 Tablet Therapy Pack; Refill: 0;For: Pain of left hand, Pain of right hand; BEVERLEY = N; Verified Transmission to [facility] Ciprofloxacin HCl - 500 MG Oral Tablet; TAKE 1 TABLET TWICE DAILY;Therapy: 14Jan2017 to (Evaluate:24Jan2017) Requested for: 14Jan2017; LastRx:14Jan2017 Ordered Rx By: Bruna Delgado; Dispense: 10 Days ; #:20 Tablet; Refill: 0;For: Periprosthetic osteolysis of internal prosthetic joint, sequela; BEVERLEY = N; Verified Transmission to [facility] Oxycodone-Acetaminophen 5-325 MG Oral Tablet; TAKE 1 TABLET EVERY 6 HOURSAS NEEDED FOR PAIN;Therapy: 01Jan2017 to (Evaluate:11Jan2017); Last Rx:01Jan2017 Ordered Rx By: Ham Davis; Dispense: 10 Days ; #:40 Tablet; Refill: 0;For: Periprosthetic osteolysis of internal prosthetic joint, sequela; BEVERLEY = N; Print Rx Oxycodone-Acetaminophen 5-325 MG Oral Tablet; TAKE 2 TABLETS EVERY 6 HOURSAS NEEDED FOR PAIN;Therapy: 06Nov2017 to (Evaluate:30Ias7041); Last Rx:06Nov2017 Ordered Rx By: Bruna Delgado; Dispense: 2 Days ; #:15 Tablet; Refill: 0;For: Primary osteoarthritis of left hand; BEVERLEY = N; Print Rx; Msg to Pharmacy: AT BEDTIME Atorvastatin Calcium 40 MG Oral Tablet;Therapy: 28Oct2016 to Recorded Dispense: 90 Days ; #:90; Refill: 0; BEVERLEY = N; Record; Last Updated By: Carol Anders; 12/17/2016 9:06:23 AM Celecoxib 200 MG Oral Capsule;Therapy: 21May2016 to Recorded Dispense: 28 Days ; #:28; Refill: 0; BEVERLEY = N; Record; Last Updated By: Carol Anders; 12/17/2016 9:06:23 AM Dicyclomine HCl - 20 MG Oral Tablet;Therapy: [id number] to Recorded Dispense: 90 Days ; #:180; Refill: 0; BEVERLEY = N; Record; Last Updated By: Carol Anders; 12/17/2016 9:06:23 AM Glimepiride 4 MG Oral Tablet;Therapy: [id number] to Recorded Dispense: 30 Days ; #:30; Refill: 0; BEVERLEY = N; Record; Last Updated By: Carol Anders; 12/17/2016 9:06:23 AM Hydrocodone-Acetaminophen 5-300 MG Oral Tablet;Therapy: 18Apr2016 to Recorded Dispense: 3 Days ; #:20; Refill: 0; BEVERLEY = N; Record; Last Updated By: Carol Anders; 12/17/2016 9:06:23 AM Hydrocodone-Acetaminophen 5-325 MG Oral Tablet; take 1 tablet by mouth every 6hours if needed for pain;Therapy: 03Dec2015 to Recorded Rx By: MART; Dispense: 7 Days ; #:30; Refill: 0; BEVERLEY = N; Record; Last Updated By: Carol Anders; 12/19/2015 10:33:43 AM Hydrocortisone 2.5 % External Ointment;Therapy: [id number] to Recorded Dispense: 15 Days ; #:28; Refill: 0; BEVERLEY = N; Record; Last Updated By: Carol Anders; 12/17/2016 9:06:23 AM Hydroxychloroquine Sulfate 200 MG Oral Tablet;Therapy: 26Oct2015 to Recorded Rx By: ARTURO; Dispense: 30 Days ; #:45; Refill: 0; BEVERLEY = N; Record; Last Updated By: Carol Anders; 12/19/2015 10:33:43 AM Invokana 100 MG Oral Tablet; take 1 tablet by mouth once daily BEFORE BREAKFAST;Therapy: 19Nov2015 to Recorded Rx By: IVAN; Dispense: 30 Days ; #:30; Refill: 0; BEVERLEY = N; Record; Last Updated By: Carol Anders; 12/19/2015 10:33:43 AM Invokana 300 MG Oral Tablet;Therapy: 21Apr2016 to Recorded Dispense: 28 Days ; #:28; Refill: 0; BEVERLEY = N; Record; Last Updated By: Carol Anders; 12/17/2016 9:06:23 AM Lantus SoloStar 100 UNIT/ML Subcutaneous Solution Pen-injector;Therapy: 08Apr2016 to Recorded Dispense: 30 Days ; #:15; Refill: 0; EBVERLEY = N; Record; Last Updated By: Carol Anders; 12/17/2016 9:06:23 AM Levothyroxine Sodium 100 MCG Oral Tablet;Therapy: 14Jan2017 to Recorded Dispense: 90 Days ; #:90; Refill: 0; BEVERLEY = N; Record; Last Updated By: Gorge Keen; 01/21/2017 12:12:08 PM Levothyroxine Sodium 88 MCG Oral Tablet;Therapy: [id number] to Recorded Dispense: 90 Days ; #:90; Refill: 0; BEVERLEY = N; Record; Last Updated By: Carol Anders; 12/17/2016 9:06:23 AM Lisinopril 20 MG Oral Tablet;Therapy: 66Iza4288 to Recorded Dispense: 90 Days ; #:90; Refill: 0; BEVERLEY = N; Record; Last Updated By: Carol Anders; 12/17/2016 9:06:23 AM Meloxicam 15 MG Oral Tablet;Therapy: [id number] to Recorded Dispense: 30 Days ; #:30; Refill: 0; BEVERLEY = N; Record; Last Updated By: Carol Anders; 12/17/2016 9:06:23 AM MetFORMIN HCl - 500 MG Oral Tablet;Therapy: 60Arm4453 to Recorded Dispense: 30 Days ; #:60; Refill: 0; BEVERLEY = N; Record; Last Updated By: Carol Anders; 12/17/2016 9:06:23 AM MetFORMIN HCl ER 500 MG Oral Tablet Extended Release 24 Hour;Therapy: 66Muv9329 to Recorded Dispense: 90 Days ; #:180; Refill: 0; BEVERLEY = N; Record; Last Updated By: Gorge Keen; 01/21/2017 12:12:08 PM Methotrexate 2.5 MG Oral Tablet;Therapy: [id number] to Recorded Dispense: 28 Days ; #:16; Refill: 0; BEVERLEY = N; Record; Last Updated By: Carol Anders; 12/17/2016 9:06:23 AM PROzac 20 MG Oral Capsule;Therapy: [id number] to Recorded Dispense: 0 Days ; #: Sufficient Capsule; Refill: 0; BEVERLEY = N; Record; Last Updated By: Carol Anders; 12/19/2015 10:40:21 AM PROzac 40 MG Oral Capsule;Therapy: [id number] to Recorded Dispense: 0 Days ; #: Sufficient Capsule; Refill: 0; BEVERLEY = N; Record; Last Updated By: Carol Anders; 12/19/2015 10:40:21 AM SulfaSALAzine 500 MG Oral Tablet;Therapy: [id number] to Recorded Dispense: 30 Days ; #:120; Refill: 0; BEVERLEY = N; Record; Last Updated By: Carol Anders; 12/17/2016 9:06:23 AM Verapamil HCl ER 180 MG Oral Capsule Extended Release 24 Hour;Therapy: 42Mro8009 to Recorded Dispense: 28 Days ; #:28; Refill: 0; BEVERLEY = N; Record; Last Updated By: Carol Anders; 12/17/2016 9:06:23 AM Physical ExamIncisions are well-healed and nontender. There is a little swelling separately around each but no erythema, fluctuance, increased skin temperature, or expressible fluid. MP motion is 0-70 at each, limited by the swelling. The index DIP fusion is stable. PIP motion has normalized at 0-90. No squeak. Sensation intact to light touch in all distributions. Capillary refill less than 2 seconds. Results/DataX-rays left hand ordered and independently interpreted by me today shows maintenance of good seating of both of the implants with no surrounding lucencies. Good bridging at the DIP fusion site. No acute fractures. Normal bone density. Diagnoses/Problems Primary osteoarthritis of left hand (715.14) (M19.042) OrdersDe Quervain's tenosynovitis, left, Pain of left hand Xray Hand Min 3 View; Status:Complete; Done: [id number] 05:39PM Performed:[facility]; Due:01Jun2018;Ordered; For:De Quervain's tenosynovitis, left, Pain of left hand; Ordered By:Bruna Delgado;Reason: Unspecified for Xray Hand Min 3 ViewLaterality : LeftRadiologist to Determine Optimal Study : YWhat are the patient's signs and symptoms? : left knuckle painPain of left hand, Pain of right hand Renew: MethylPREDNISolone 4 MG Oral Tablet Therapy Pack; Take as directed Rx By: Bruna Delgado; Dispense: 0 Days ; #:1 X 21 Tablet Pack; Refill: 0;For: Pain of left hand, Pain of right hand; BEVERLEY = N; [facility] Signatures Electronically signed by : Bruna Delgado MD,; Mar 07 2018 4:36PM EST (Author) Normal [employer] HAND MIN 3 VIEWSon 8 HAND MIN 3 VIEWS Name: MARY JANE DE PAZ STUDY:HAND; MIN 3 VIEWS; 03/03/2018 5:39 pm INDICATION:Signs/Symptoms: left knuckle pain. COMPARISON:November 06 ORDERING CLINICIAN:ASPEN DELGADO FINDINGS:Status post 2nd and 3rd metacarpophalangeal arthroplasty unchanged.2nd left distal interphalangeal joint effusion unchanged. No acute findings. IMPRESSION:Status post 2nd and 3rd metacarpophalangeal arthroplasty, unchangedfrom prior exam.Electronically signed by: DONAVON MARRUFO MD [facility] Post Op (Orthopaedic Surgery )on 12-06-2017 Post Op (Orthopaedic Surgery) Chief ComplaintPatient returns POV #2 s/p left index and long MP arthroplasties, along with an index DIP fusion. RL History of Present IllnessASSESSMENT + PLAN :About 5 weeks postop from left index and long MP pyrocarbon arthroplasties and index DIP fusionThe incisions are healing normally. The motion is good. The fusion appears stable. You may continue to advance activity with no restrictions. Continue to work on the stretching exercises for the index PIP, as there is significant further progress to be made.Follow-up with me with any additional concerns. HI STORY :Patient returns as directed, about 4 weeks after last visit and now almost 6 weeks from left index and long MP pyrocarbon arthroplasties and index DIP fusion. Pain has resolved. A little swelling remains at the index MP. She has been working on range of motion and feels her progress has been a little slower on this side. No interval trauma. No other new concerns. 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) (M19.042) Primary osteoarthritis of right hand (715.14) (M19.041) Trigger middle finger of right hand (727.03) (M65.331) Family History Family history of 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 (V18.0) (Z83.3) Family history of hypertension (V17.49) (Z82.49) Family history of malignant neoplasm (V16.9) (Z80.9) Social History Non-smoker (V49.89) (Z78.9) Social alcohol use (Z78.9) Allergies No Known Drug Allergies Recorded By: Ruth Driscoll; 10/26/2015 2:33:30 PM Current Meds MethylPREDNISolone 4 MG Oral Tablet Therapy Pack; Take as directed;Therapy: 21Jan2017 to (Last Rx:21Jan2017) Requested for: 24Jan2017 Ordered Rx By: Bruna Delgado; Dispense: 0 Days ; #:1 Tablet Therapy Pack; Refill: 0;For: Pain of left hand, Pain of right hand; BEVERLEY = N; Verified Transmission to [facility] Ciprofloxacin HCl - 500 MG Oral Tablet; TAKE 1 TABLET TWICE DAILY;Therapy: 14Jan2017 to (Evaluate:24Jan2017) Requested for: 14Jan2017; LastRx:14Jan2017 Ordered Rx By: Bruna Delgado; Dispense: 10 Days ; #:20 Tablet; Refill: 0;For: Periprosthetic osteolysis of internal prosthetic joint, sequela; BEVERLEY = N; Verified Transmission to [facility] Oxycodone-Acetaminophen 5-325 MG Oral Tablet; TAKE 1 TABLET EVERY 6 HOURSAS NEEDED FOR PAIN;Therapy: 01Jan2017 to (Evaluate:11Jan2017); Last Rx:01Jan2017 Ordered Rx By: Ham Davis; Dispense: 10 Days ; #:40 Tablet; Refill: 0;For: Periprosthetic osteolysis of internal prosthetic joint, sequela; BEVERLEY = N; Print Rx Oxycodone-Acetaminophen 5-325 MG Oral Tablet; TAKE 2 TABLETS EVERY 6 HOURSAS NEEDED FOR PAIN;Therapy: 06Nov2017 to (Evaluate:08Nov2017); Last Rx:06Nov2017 Ordered Rx By: Bruna Delgado; Dispense: 2 Days ; #:15 Tablet; Refill: 0;For: Primary osteoarthritis of left hand; BEVERLEY = N; Print Rx; Msg to Pharmacy: AT BEDTIME Atorvastatin Calcium 40 MG Oral Tablet;Therapy: 52Uqh6697 to Recorded Dispense: 90 Days ; #:90 TABS; Refill: 0; BEVERLEY = N; Record; Last Updated By: Carol Anders; 12/17/2016 9:06:23 AM Celecoxib 200 MG Oral Capsule;Therapy: 21May2016 to Recorded Dispense: 28 Days ; #:28 CAPS; Refill: 0; BEVERLEY = N; Record; Last Updated By: Carol Anders; 12/17/2016 9:06:23 AM Dicyclomine HCl - 20 MG Oral Tablet;Therapy: 08Nau2821 to Recorded Dispense: 90 Days ; #:180 TABS; Refill: 0; BEVERLEY = N; Record; Last Updated By: Carlo Anders; 12/17/2016 9:06:23 AM Glimepiride 4 MG Oral Tablet;Therapy: 73Eoa5862 to Recorded Dispense: 30 Days ; #:30 TABS; Refill: 0; BEVERLEY = N; Record; Last Updated By: Carol Anders; 12/17/2016 9:06:23 AM Hydrocodone-Acetaminophen 5-300 MG Oral Tablet;Therapy: 18Apr2016 to Recorded Dispense: 3 Days ; #:20 TABS; Refill: 0; BEVERLEY = N; Record; Last Updated By: Carol Anders; 12/17/2016 9:06:23 AM Hydrocodone-Acetaminophen 5-325 MG Oral Tablet; take 1 tablet by mouth every 6hours if needed for pain;Therapy: 83Ipf4870 to Recorded Rx By: MART; Dispense: 7 Days ; #:30 TABS; Refill: 0; BEVERLEY = N; Record; Last Updated By: Carol Anders; 12/19/2015 10:33:43 AM Hydrocortisone 2.5 % External Ointment;Therapy: 69Dkm2069 to Recorded Dispense: 15 Days ; #:28 OINT; Refill: 0; BEVERLEY = N; Record; Last Updated By: Carol Anders; 12/17/2016 9:06:23 AM Hydroxychloroquine Sulfate 200 MG Oral Tablet;Therapy: 91Nau1715 to Recorded Rx By: ARTURO; Dispense: 30 Days ; #:45 TABS; Refill: 0; BEVERLEY = N; Record; Last Updated By: Carol Anders; 12/19/2015 10:33:43 AM Invokana 100 MG Oral Tablet; take 1 tablet by mouth once daily BEFORE BREAKFAST;Therapy: 19Nov2015 to Recorded Rx By: IVAN; Dispense: 30 Days ; #:30 TABS; Refill: 0; BEVERLEY = N; Record; Last Updated By: Carol Anders; 12/19/2015 10:33:43 AM Invokana 300 MG Oral Tablet;Therapy: 21Apr2016 to Recorded Dispense: 28 Days ; #:28 TABS; Refill: 0; BEVERLEY = N; Record; Last Updated By: Carol Anders; 12/17/2016 9:06:23 AM Lantus SoloStar 100 UNIT/ML Subcutaneous Solution Pen-injector;Therapy: 08Apr2016 to Recorded Dispense: 30 Days ; #:15 SOPN; Refill: 0; BEVRELEY = N; Record; Last Updated By: Carol Anders; 12/17/2016 9:06:23 AM Levothyroxine Sodium 100 MCG Oral Tablet;Therapy: 14Jan2017 to Recorded Dispense: 90 Days ; #:90 TABS; Refill: 0; BEVERLEY = N; Record; Last Updated By: Gorge Keen; 01/21/2017 12:12:08 PM Levothyroxine Sodium 88 MCG Oral Tablet;Therapy: 07Gdo0599 to Recorded Dispense: 90 Days ; #:90 TABS; Refill: 0; BEVERLEY = N; Record; Last Updated By: Carol Anders; 12/17/2016 9:06:23 AM Lisinopril 20 MG Oral Tablet;Therapy: 92Rqf6541 to Recorded Dispense: 90 Days ; #:90 TABS; Refill: 0; BEVERLEY = N; Record; Last Updated By: Carol Anders; 12/17/2016 9:06:23 AM Meloxicam 15 MG Oral Tablet;Therapy: 02Qii3562 to Recorded Dispense: 30 Days ; #:30 TABS; Refill: 0; BEVERLEY = N; Record; Last Updated By: Carol Anders; 12/17/2016 9:06:23 AM MetFORMIN HCl - 500 MG Oral Tablet;Therapy: 67Fdp5226 to Recorded Dispense: 30 Days ; #:60 TABS; Refill: 0; BEVERLEY = N; Record; Last Updated By: Carol Anders; 12/17/2016 9:06:23 AM MetFORMIN HCl ER 500 MG Oral Tablet Extended Release 24 Hour;Therapy: 50Gzt2241 to Recorded Dispense: 90 Days ; #:180 TB24; Refill: 0; BEVERLEY = N; Record; Last Updated By: Gorge Keen; 01/21/2017 12:12:08 PM Methotrexate 2.5 MG Oral Tablet;Therapy: 84Oeu0056 to Recorded Dispense: 28 Days ; #:16 TABS; Refill: 0; BEVERLEY = N; Record; Last Updated By: Carol Anders; 12/17/2016 9:06:23 AM PROzac 20 MG Oral Capsule;Therapy: 69Hqi4357 to Recorded Dispense: 0 Days ; #: Sufficient Capsule; Refill: 0; BEVERLEY = N; Record; Last Updated By: Carol Anders; 12/19/2015 10:40:21 AM PROzac 40 MG Oral Capsule;Therapy: 44Pav2602 to Recorded Dispense: 0 Days ; #: Sufficient Capsule; Refill: 0; BEVERLEY = N; Record; Last Updated By: Carol Anders; 12/19/2015 10:40:21 AM SulfaSALAzine 500 MG Oral Tablet;Therapy: 66Cbv5593 to Recorded Dispense: 30 Days ; #:120 TABS; Refill: 0; BEVERLEY = N; Record; Last Updated By: Carol Anders; 12/17/2016 9:06:23 AM Verapamil HCl ER 180 MG Oral Capsule Extended Release 24 Hour;Therapy: 49Pbm4644 to Recorded Dispense: 28 Days ; #:28 CP24; Refill: 0; BEVERLEY = N; Record; Last Updated By: Carol Anders; 12/17/2016 9:06:23 AM Physical ExamIncisions are well-healed and nontender. There is a little soft swelling at the index, but no discrete fluctuance. The long is benign. No erythema, expressible fluid, or increased skin temperature to suggest infection. MP motion 0-90 at both digits, with no squeak. One remaining absorbable suture at the index incision was removed. Long finger PIP 0-90 but index just 0-45. DIP fusion is stable in all 4 directions. Sensation intact to light touch in all distributions. Capillary refill less than 2 seconds. Diagnoses/Problems Primary osteoarthritis of left hand (715.14) (M19.042) Signatures Electronically signed by : Bruna Delgado MD,; Dec 06 2017 8:03PM EST (Author) Normal Touchmaryjane Darling 11-09-2017 ALT enzyme act/vol 20 U/L Normal 7 - 45 [facility] Comment on above: Result Comment: Carolina ents treated with Sulfasalazine may generate falsely decreased results for ALT. Performed By: #### E SRWS ####[facility] [place] [address] Isabela 11-09-2017 AST enzyme act/vol 20 U/L Normal 9 - 39 [facility] Comment on above: Performed By: #### E SRWS ####[facility])[address] [place] [address] CBC AND DIFFERENTIALon 11-09 % AUTOMATED IMMATURE GRAN 0.5 % Normal 0.0 - 0.9 [facility] Comment on above: Result Comment: Perc ent differential counts (%) should be interpreted in the context of the absolute cell counts (cells/L). Performed By: #### E SRWS ####[facility])[address] [place] [address] % NEUTROPHIL 71.5 % Normal 40.0 - 80.0 [facility] Comment on above: Performed By: #### E SRWS ####[facility])[address] [place] [address] Basophils/100 WBC Auto (Bld) 0.09 x10E9/L Normal 0.00 - 0.10 [facility] Comment on above: Performed By: #### E SRWS ####[facility])[address] [place] [address] Basophils/100 WBC Auto (Bld) 1.0 % Normal 0.0 - 2.0 [facility] Comment on above: Performed By: #### E SRWS ####[facility])[address] [place] [address] Eosinophils Auto #/vol (Bld) 0.33 10*3/uL Normal 0.00 - 0.70 [facility] Comment on above: Performed By: #### E SRWS ####[facility])[address] [place] [address] Eosinophils/100 WBC Auto (Bld) 3.6 % Normal 0.0 - 6.0 [facility] Comment on above: Performed By: #### E SRWS ####[facility])[address] [place] [address] Erythrocyte distribution width Auto Ratio (RBC) 14.8 % High 11.5 - 14.5 [facility] Comment on above: Performed By: #### E SRWS ####[facility])[address] [place] [address] Hematocrit Auto Volume Fraction (Bld) 35.6 % Low 36.0 - 46.0 [facility] Comment on above: Performed By: #### E SRWS ####[facility])[address] [place] [address] Hemoglobin mass conc (Bld) 11.3 g/dL Low 12.0 - 16.0 [facility] Comment on above: Performed By: #### E SRWS ####[facility])[address] [place] [address] Lymphocytes Auto #/vol (Bld) 1.67 10*3/uL Normal 1.20 - 4.80 [facility] Comment on above: Performed By: #### E SRWS ####[facility])[address] [place] [address] Lymphocytes/100 WBC Auto (Bld) 18.2 % Normal 13.0 - 44.0 [facility] Comment on above: Performed By: #### E SRWS ####[facility])[address] [place] [address] MCHC Auto mass conc (RBC) 31.7 g/dL Low 32.0 - 36.0 [facility] Comment on above: Performed By: #### E SRWS ####[facility])[address] [place] [address] MCV Auto Entitic volume (RBC) 98 fL Normal 80 - 100 [facility] Comment on above: Performed By: #### E SRWS ####[facility])[address] [place] [address] Monocytes Auto #/vol (Bld) 0.48 10*3/uL Normal 0.10 - 1.00 [facility] Comment on above: Performed By: #### E SRWS ####[facility])[address] [place] [address] Monocytes/100 WBC Auto (Bld) 5.2 % Normal 2.0 - 10.0 [facility] Comment on above: Performed By: #### E SRWS ####[facility])[address] [place] [address] Neutrophils Auto #/vol (Bld) 6.55 10*3/uL Normal 1.20 - 7.70 [facility] Comment on above: Performed By: #### E SRWS ####[facility])[address] [place] [address] Nucleated RBC/100 WBC Ratio (Bld) 0.0 /100 WBC Normal 0.0-0.0 [facility] Comment on above: Performed By: #### E SRWS ####[facility] [place] [address] Platelets Auto #/vol (Bld) 446 10*3/uL Normal 150 - 450 [facility] Comment on above: Performed By: #### E SRWS ####[facility] [place] [address] RBC Auto #/vol (Bld) 3.63 x10E12/L Low 4.00 - 5.20 [facility] Comment on above: Performed By: #### E SRWS ####[facility] [place] [address] WBC Auto #/vol (Bld) 9.2 10*3/uL Normal 4.4 - 11.3 [facility] Comment on above: Performed By: #### E SRWS ####[facility] [place] [address] CREATININEon 11-09-2017 Creatinine mass conc 1.04 mg/dL Normal 0.50 - 1.05 [facility] Comment on above: Performed By: #### E SRWS ####[facility] [place] [address] GFR- AM. 64 mL/min/1.73m2 Normal >60 [facility] Comment on above: Result Comment: CALC ULATIONS OF ESTIMATED GFR ARE PERFORMED USING THE MDRD STUDY EQUATION FOR THE IDMS-TRACEABLE CREATININE METHODS. CLIN CHEM 2007;53:766-72 Performed By: #### E SRWS ####[facility] [place] [address] GFR-NON AM. 53 mL/min/1.73m2 Abnormal >60 [facility] Comment on above: Performed By: #### E SRWS ####[facility] [place] [address] SEDIMENTATION RATE, ERYTHROC YTEon 11-09-2017 SEDIMENTATION RATE, ERYTHROCYTE 22 mm/h Normal 0 - 30 [facility] Comment on above: Performed By: #### E SRWS ####[facility] [place] [address] Post Op (Orthopaedic Surgery )on 11-08-2017 Post Op (Orthopaedic Surgery) Chief ComplaintPatient is here today for a clinical check of her left hand.YA History of Present IllnessASSESSMENT + PLAN :Postop day 9 from left index and long MP pyrocarbon arthroplasties and index DIP fusionToday's x-rays look good. The incisions are healing normally. The sutures are absorbable. These may get wet, but should not be soaked for 2 more weeks. You may begin advancing activity as pain allows out of the brace. Work on the stretching exercises from the previous surgeries. Contact my office if you would like a formal occupational therapy referral.A refill of 15 Percocet was given today.Follow up in 3 or 4 weeks for clinical check, or certainly sooner with any concerns. HI STORY :Patient returns early, postop day 9 from pyrocarbon arthroplasty of index and long MP joints and left index DIP fusion. Pain has been decreasing appropriately. No numbness or tingling. No new concerns. 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) (M19.042) Primary osteoarthritis of right hand (715.14) (M19.041) Trigger middle finger of right hand (727.03) (M65.331) Family History Family history of 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 (V18.0) (Z83.3) Family history of hypertension (V17.49) (Z82.49) Family history of malignant neoplasm (V16.9) (Z80.9) Social History Non-smoker (V49.89) (Z78.9) Social alcohol use (Z78.9) Allergies No Known Drug Allergies Recorded By: Ruth Driscoll; 10/26/2015 2:33:30 PM Current Meds MethylPREDNISolone 4 MG Oral Tablet Therapy Pack; Take as directed;Therapy: 21Jan2017 to (Last Rx:21Jan2017) Requested for: 24Jan2017 Ordered Rx By: Bruna Delgado; Dispense: 0 Days ; #:1 Tablet Therapy Pack; Refill: 0;For: Pain of left hand, Pain of right hand; BEVERLEY = N; Verified Transmission to [facility]38 Ciprofloxacin HCl - 500 MG Oral Tablet; TAKE 1 TABLET TWICE DAILY;Therapy: 14Jan2017 to (Evaluate:24Jan2017) Requested for: 14Jan2017; LastRx:14Jan2017 Ordered Rx By: Bruna Delgado; Dispense: 10 Days ; #:20 Tablet; Refill: 0;For: Periprosthetic osteolysis of internal prosthetic joint, sequela; BEVERLEY = N; Verified Transmission to [facility] 183 Oxycodone-Acetaminophen 5-325 MG Oral Tablet; TAKE 1 TABLET EVERY 6 HOURSAS NEEDED FOR PAIN;Therapy: 01Jan2017 to (Evaluate:11Jan2017); Last Rx:01Jan2017 Ordered Rx By: Ham Davis; Dispense: 10 Days ; #:40 Tablet; Refill: 0;For: Periprosthetic osteolysis of internal prosthetic joint, sequela; BEVERLEY = N; Print Rx Atorvastatin Calcium 40 MG Oral Tablet;Therapy: 28Oct2016 to Recorded Dispense: 90 Days ; #:90 TABS; Refill: 0; BEVERLEY = N; Record; Last Updated By: Carol Anders; 12/17/2016 9:06:23 AM Celecoxib 200 MG Oral Capsule;Therapy: 21May2016 to Recorded Dispense: 28 Days ; #:28 CAPS; Refill: 0; BEVERLEY = N; Record; Last Updated By: Carol Anders; 12/17/2016 9:06:23 AM Dicyclomine HCl - 20 MG Oral Tablet;Therapy: 30Sep2016 to Recorded Dispense: 90 Days ; #:180 TABS; Refill: 0; BEVERLEY = N; Record; Last Updated By: Carol Anders; 12/17/2016 9:06:23 AM Glimepiride 4 MG Oral Tablet;Therapy: 26Nhy0338 to Recorded Dispense: 30 Days ; #:30 TABS; Refill: 0; BEVERLEY = N; Record; Last Updated By: Carol Anders; 12/17/2016 9:06:23 AM Hydrocodone-Acetaminophen 5-300 MG Oral Tablet;Therapy: 18Apr2016 to Recorded Dispense: 3 Days ; #:20 TABS; Refill: 0; BEVERLEY = N; Record; Last Updated By: Carol Anders; 12/17/2016 9:06:23 AM Hydrocodone-Acetaminophen 5-325 MG Oral Tablet; take 1 tablet by mouth every 6hours if needed for pain;Therapy: 71Dhv6988 to Recorded Rx By: MART; Dispense: 7 Days ; #:30 TABS; Refill: 0; BEVERLEY = N; Record; Last Updated By: Carol Anders; 12/19/2015 10:33:43 AM Hydrocortisone 2.5 % External Ointment;Therapy: 31Jul2016 to Recorded Dispense: 15 Days ; #:28 OINT; Refill: 0; BEVERLEY = N; Record; Last Updated By: Carol Anders; 12/17/2016 9:06:23 AM Hydroxychloroquine Sulfate 200 MG Oral Tablet;Therapy: 26Oct2015 to Recorded Rx By: ARTURO; Dispense: 30 Days ; #:45 TABS; Refill: 0; BEVERLEY = N; Record; Last Updated By: Carol Anders; 12/19/2015 10:33:43 AM Invokana 100 MG Oral Tablet; take 1 tablet by mouth once daily BEFORE BREAKFAST;Therapy: 19Nov2015 to Recorded Rx By: NYJUANPABLO; Dispense: 30 Days ; #:30 TABS; Refill: 0; BEVERLEY = N; Record; Last Updated By: Carol Anders; 12/19/2015 10:33:43 AM Invokana 300 MG Oral Tablet;Therapy: 21Apr2016 to Recorded Dispense: 28 Days ; #:28 TABS; Refill: 0; BEVERLEY = N; Record; Last Updated By: Carol Anders; 12/17/2016 9:06:23 AM Lantus SoloStar 100 UNIT/ML Subcutaneous Solution Pen-injector;Therapy: 08Apr2016 to Recorded Dispense: 30 Days ; #:15 SOPN; Refill: 0; BEVERLEY = N; Record; Last Updated By: Carol Anders; 12/17/2016 9:06:23 AM Levothyroxine Sodium 100 MCG Oral Tablet;Therapy: 14Jan2017 to Recorded Dispense: 90 Days ; #:90 TABS; Refill: 0; BEVERLEY = N; Record; Last Updated By: Gorge Keen; 01/21/2017 12:12:08 PM Levothyroxine Sodium 88 MCG Oral Tablet;Therapy: 28Oct2016 to Recorded Dispense: 90 Days ; #:90 TABS; Refill: 0; BEVERLEY = N; Record; Last Updated By: Carol Anders; 12/17/2016 9:06:23 AM Lisinopril 20 MG Oral Tablet;Therapy: 74Lbt0050 to Recorded Dispense: 90 Days ; #:90 TABS; Refill: 0; BEVERLEY = N; Record; Last Updated By: Carol Anders; 12/17/2016 9:06:23 AM Meloxicam 15 MG Oral Tablet;Therapy: 30See2838 to Recorded Dispense: 30 Days ; #:30 TABS; Refill: 0; BEVERLEY = N; Record; Last Updated By: Carol Anders; 12/17/2016 9:06:23 AM MetFORMIN HCl - 500 MG Oral Tablet;Therapy: 26Lgr5020 to Recorded Dispense: 30 Days ; #:60 TABS; Refill: 0; BEVERLEY = N; Record; Last Updated By: Carol Anders; 12/17/2016 9:06:23 AM MetFORMIN HCl ER 500 MG Oral Tablet Extended Release 24 Hour;Therapy: 14Jan2017 to Recorded Dispense: 90 Days ; #:180 TB24; Refill: 0; BEVERLEY = N; Record; Last Updated By: Gorge Keen; 01/21/2017 12:12:08 PM Methotrexate 2.5 MG Oral Tablet;Therapy: 64Ojf7461 to Recorded Dispense: 28 Days ; #:16 TABS; Refill: 0; BEVERLEY = N; Record; Last Updated By: Carol Anders; 12/17/2016 9:06:23 AM PROzac 20 MG Oral Capsule;Therapy: 63Inz5037 to Recorded Dispense: 0 Days ; #: Sufficient Capsule; Refill: 0; BEVERLEY = N; Record; Last Updated By: Carol Anders; 12/19/2015 10:40:21 AM PROzac 40 MG Oral Capsule;Therapy: 95Lab5494 to Recorded Dispense: 0 Days ; #: Sufficient Capsule; Refill: 0; BEVERLEY = N; Record; Last Updated By: Carol Anders; 12/19/2015 10:40:21 AM SulfaSALAzine 500 MG Oral Tablet;Therapy: 75Ypd4557 to Recorded Dispense: 30 Days ; #:120 TABS; Refill: 0; BEVERLEY = N; Record; Last Updated By: Carol Anders; 12/17/2016 9:06:23 AM Verapamil HCl ER 180 MG Oral Capsule Extended Release 24 Hour;Therapy: 59Cyg3265 to Recorded Dispense: 28 Days ; #:28 CP24; Refill: 0; BEVERLEY = N; Record; Last Updated By: Carol Anders; 12/17/2016 9:06:23 AM Physical ExamPostop splint and dressing removed. All 3 incisions are clean, dry, intact with Biosyn suture in place. Clinically well aligned. Normal rotation with no scissoring on partial flexion. DIP is stably fixed. Sensation intact to light touch in all distributions. Capillary refill less than 2 seconds. 2+ radial and ulnar pulses. Results/Data Xray Hand Min 3 [id number] 12:00Bruna Cunningham[Nov 06, 2017 11:09AM Bruna Delgado] Reason: Unspecified for Xray Hand Min 3 View Test NameResultFlagReferenceXray Hand Min 3 ViewPlease click on the link to view the study images X-rays left hand ordered and independently interpreted by me today shows proper hardware position and length with good alignment of the pyrocarbon implants, and proper seating of the DIP fusion screw with countersinking. No changes from the intraoperative views. Diagnoses/Problems Primary osteoarthritis of left hand (715.14) (M19.042) OrdersPrimary osteoarthritis of left hand Start: Oxycodone-Acetaminophen 5-325 MG Oral Tablet; TAKE 2 TABLETS EVERY 6HOURS NEEDED FOR PAIN Rx By: Bruna Delgado; Dispense: 2 Days ; #:15 Tablet; Refill: 0;For: Primary osteoarthritis of left hand; BEVERLEY = N; Print Rx; Msg to Pharmacy: AT BEDTIME Occupational Therapy Referral Evaluation and Treatment ROM / Evaluate AND Treat Status:Hold For - Scheduling Requested for: 06Nov2017 Ordered;For: Primary osteoarthritis of left hand; Ordered By: Bruna Delgado Performed: Due: 76Yfv1686 Xray Hand Min 3 View; Status:Resulted - Preliminary,Retrospective Authorization; Done:06Nov2017 12:00AM Due:04Feb2018;Ordered; For:Primary osteoarthritis of left hand; Ordered By:Bruna Delgado;Reason: Unspecified for Xray Hand Min 3 ViewLaterality : LeftRadiologist to Determine Optimal Study : YWhat are the patient's signs and symptoms? : hand pain End of Encounter MedsAtorvastatin Calcium 40 MG Oral Tablet;Therapy: 68Dcx9593 to RecordedCelecoxib 200 MG Oral Capsule;Therapy: 21May2016 to RecordedCiprofloxacin HCl - 500 MG Oral Tablet; TAKE 1 TABLET TWICE DAILY;Therapy: 14Jan2017 to (Evaluate:24Jan2017) Requested for: 14Jan2017; LastRx:14Jan2017 OrderedDicyclomine HCl - 20 MG Oral Tablet;Therapy: 09Xoj8725 to RecordedGlimepiride 4 MG Oral Tablet;Therapy: 91Ycx5587 to RecordedHydrocodone-Acetaminop hen 5-300 MG Oral Tablet;Therapy: 18Apr2016 to RecordedHydrocodone-Acetaminop hen 5-325 MG Oral Tablet; take 1 tablet by mouth every 6hours if needed for pain;Therapy: 85Dxu2113 to RecordedHydrocortisone 2.5 % External Ointment;Therapy: 24Pma5983 to RecordedHydroxychloroquine Sulfate 200 MG Oral Tablet;Therapy: 31Bsm1188 to RecordedInvokana 100 MG Oral Tablet; take 1 tablet by mouth once daily BEFORE BREAKFAST;Therapy: 53Dfq2539 to RecordedInvokana 300 MG Oral Tablet;Therapy: 21Apr2016 to RecordedLantus SoloStar 100 UNIT/ML Subcutaneous Solution Pen-injector;Therapy: 08Apr2016 to RecordedLevothyroxine Sodium 100 MCG Oral Tablet;Therapy: 14Jan2017 to RecordedLevothyroxine Sodium 88 MCG Oral Tablet;Therapy: 44Qru5653 to RecordedLisinopril 20 MG Oral Tablet;Therapy: 28Oct2016 to RecordedMeloxicam 15 MG Oral Tablet;Therapy: 26Sep2016 to RecordedMetFORMIN HCl - 500 MG Oral Tablet;Therapy: 08Ekh5604 to RecordedMetFORMIN HCl ER 500 MG Oral Tablet Extended Release 24 Hour;Therapy: 14Jan2017 to RecordedMethotrexate 2.5 MG Oral Tablet;Therapy: 22Wyg9536 to RecordedMethylPREDNISolone 4 MG Oral Tablet Therapy Pack; Take as directed;Therapy: 21Jan2017 to (Last Rx:21Jan2017) Requested for: 24Jan2017 OrderedOxycodone-Acetaminophen 5-325 MG Oral Tablet (Percocet); TAKE 1 TABLET EVERY 6HOURS NEEDED FOR PAIN;Therapy: 01Jan2017 to (Evaluate:11Jan2017); Last Rx:01Jan2017 OrderedOxycodone-Acetaminophen 5-325 MG Oral Tablet; TAKE 2 TABLETS EVERY 6 HOURSAS NEEDED FOR PAIN;Therapy: 06Nov2017 to (Evaluate:51Nly5435); Last Rx:06Nov2017 OrderedPROzac 20 MG Oral Capsule (FLUoxetine HCl);Therapy: 93Khh3394 to RecordedPROzac 40 MG Oral Capsule (FLUoxetine HCl);Therapy: 41Gdm8518 to RecordedSulfaSALAzine 500 MG Oral Tablet;Therapy: 43Uib7616 to RecordedVerapamil HCl ER 180 MG Oral Capsule Extended Release 24 Hour;Therapy: 77Dqh3902 to Recorded Signatures Electronically signed by : Bruna Delgado MD,; Nov 08 2017 7:38PM EST (Author) Normal [facility] FLUOROSCO PYon 11-06-2017 AMBULATORY SURGERY FLUOROSCOPY Name: MARY JANE DE PAZ STUDY:AMBULATORY SURGERY FLUOROSCOPY; 11/06/2017 11:59 am INDICATION:left hand orif. COMPARISON:None. ORDERING CLINICIAN:ASPEN DELGADO FINDINGS:Intraoperative fluoroscopy was utilized for localization during ORIFwith hardware fixation of the distal interphalangeal joint left indexfinger. Total fluoroscopy time was 21 sec.Multiple intraoperative spot fluoroscopic images were obtained.Recommend correlation with real-time interoperative fluoroscopicfindings and procedure note. IMPRESSION:Intraoperative fluoroscopy for localization. Recommend correlationwith real-time fluoroscopic findings and procedure note.Electronically signed by: MARIZA WASHINGTON MD Normal [facility] HAND; MIN 3 VIEWSon 11-07-19 18 HAND; MIN 3 VIEWS Name: MARY JANE DE PAZ STUDY:BN HAND; MIN 3 VIEWS; 11/06/2017 11:35 am INDICATION:Signs/Symptoms: hand pain. COMPARISON:None. ORDERING CLINICIAN:ASPEN DELGADO FINDINGS:The patient is status post 2nd and 3rd metacarpophalangeal jointsarthroplasties. The patient is status post fusion of the 1st distalinterphalangeal joint. Moderate degenerative changes in the 1stthrough 5th interphalangeal joints present as well, worse at the 1stinterphalangeal and 3rd distal interphalangeal joints. There ispositive ulnar variance. Mild 1st carpometacarpal joint spacenarrowing and osteophytosis present no fracture or dislocation seen.Dorsal soft tissue swelling at the wrist. IMPRESSION:2nd and 3rd MCP arthroplasties. 1st DIP fusion.Moderate multifocal degenerative changes throughout the wrist andhand.Electronically signed by: KAMRYN LAMAS MD Normal [facility] History and Physical - Surgi brandee Update < 30 dayson 10-28-2017 History and Physical - Surgical Update < 30 days History & Physical Reviewed:I have reviewed the History and Physical dated: [id number] and Physical reviewed and relevant findings noted. Patient examined toreview pertinent physical findings.: No significant changes patient presentingfor left index and middle finger MCP pyrocarbon arthroplasty and left indexfinger DIP fusion for long-standing arthritisHome Medications Reviewed: no changes notedAllergies Reviewed: no changes notedThis patient has been seen and discussed with the attending physicianresponsible for performing the procedure: yes Signatures/Attestation/Certifi cation:Attending AttestationI saw and evaluated the patient. I personally obtainedthe borges and critical portions of the history and physical exam or wasphysically present for borges and critical portions performed by theresident/fellow. I reviewed the resident/fellow?s documentation and discussedthe patient with the resident/fellow. I agree with the resident/fellow?smedical decision making as documented in the resident?s note.I personally evaluated the patient (as noted in the above attestation) [id number] Provider ? Inpatient Certification StatementN/A - observationpatient/other outpatient visits Electronic Signatures:Aspen Delgado) (Signed 28-Oct-2017 20:30)Authored: Signatures/Attestation/Certifi cationCo-Signer: History & Physical Reviewed, Signatures/Attestation/Certifi cationJen Machado (Resident)) (Signed 28-Oct-2017 08:47)Authored: History & Physical Reviewed, Signatures/Attestation/Certifi cation Last Updated: 28-Oct-2017 20:30 by Aspen Delgado) [facility] OPERATIVE REPORTon 8 OPERATIVE REPORT [facility] [place], [place] [address]Patient Name: ALISON DE PAZN: [id number]: 1950Encounter Number: [id number] of Service: 10/28/2017Patient Location: Patient Type: OSurgeon: Aspen Delgado MDReport Type: Operative ReportsPREOPERATIVE DIAGNOSIS: 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 Left index metacarpophalangeal pyrocarbon arthroplasty.2. Left long metacarpophalangeal pyrocarbon arthroplasty.3. Left index distal interphalangeal arthrodesis.SURGEON: NIKOS OcampoISTANT(S): Jen Machado MDANESTHESIA: General LMA.INDICATION: Ms. De Paz is a 67-year-old, right-hand dominant woman with pain and intermittent swelling of the MP joints of the left index and long fingers, and significant deforming osteoarthritis of the index DIP. She has failed conservative measures and is here for elective MP arthroplasties and index DIP fusion. She had good success with similar arthroplasty on the right index and long. I reminded her of surgical risks of infection; scarring; damage to nerves, tendons, or vessels; stiffness; wound healing problems; nonunion; malunion; hardware breakage; implant migration; squeaking implants; and need for further surgery. She wished to proceed with all portions.NARRATIVE: Following identification of the patient and confirmation of correct sites of surgery and signed operative consent, she was brought to the operating room and a hand table affixed to the cart. A general anesthetic was administered via LMA along with IV antibiotic dose by Anesthesia. A pneumatic tourniquet was placed high on the left arm, and the limb was prepped from fingertip to cuff with chlorhexidine, and draped free in the usual sterile fashion. Radial sensory, palmar cutaneous, and median nerve blocks were performed at the wrist with a total of 9 mL of a mix of 0.5% Marcaine and 1% lidocaine plain. The limb was exsanguinated with an Esmarch, and the tourniquet inflated.Separate 2 cm longitudinal incisions were made over the index and long MP joints, directly over the extensor tendons. Each was taken down to the extensor mechanism, and the ulnar sagittal band was identified. Each ulnar sagittal band was released from the common extensor, including a small strip of longitudinal fibers. Tendon and bands were elevated from the underlying joint capsule, and longitudinal T-capsulotomies were performed. Both metacarpal heads were quite eburnated. A provisional cut was made in the metacarpal neck just distal to the collateral origins and perpendicular to the long axis of the shaft. The metacarpal heads were extracted. Using the SOL ELIXIRS Pyrocarbon Arthroplasty System, the canal finder was used to open the metacarpal canals. Each was sequentially reamed and broached in turn to accept a #30 implant. Attention was then turned distally in each joint, where the canal finder was used to open the proximal phalanx subchondral plate and canal. These were similarly reamed and broached to accept #30 implants. Trials were placed, and the joints reduced. They had excellent tracking and no squeak. There was good collateral stability. The trials were removed, and joints were copiously irrigated. The actual implants were then press-fit and impacted in standard fashion. The joints were reduced and again, motion and stability were verified and accepted. After copious irrigation, the capsules were repaired with 5-0 Prolene, and the sagittal bands were repaired to the extensor mechanism with interrupted buried 5-0 Prolene.Attention was then turned to the index DIP, where a transverse dorsal incision was made over the joint and taken bluntly down. Crossing veins were treated with bipolar and divided, and the extensor tendon was released. A transverse capsulotomy was made and extended radial and ulnar to release the collateral origins. The joint was shotgunned, and the articular surfaces were in poor condition. Small rongeur was used to remove the remaining cartilage and subchondral plates, taking care to minimally disturb the overall bone architecture. A small stab incision was made at the finger tip, and a guidewire from the Synthes 2.4 headless set was placed percutaneously and advanced under power up the DIP shaft. After verifying proper alignment, joint was held reduced in 15 degrees flexion as the wire was driven up to the isthmus of the middle phalanx canal. After pre-drilling, a 22 mm short-thread Synthes 2.4 headless screw was advanced over the guidewire in standard fashion, compressing the fusion surfaces. This gave excellent, stable construct. Proper hardware position and length was verified with the C-arm.Tourniquet was deflated, and pink color rapidly returned to all digits. Hemostasis was achieved in all 3 incisions with bipolar. After final copious irrigation, each incision was closed with 4-0 Biosyn interrupted skin stitch. Soft dressing was applied, followed by a volar plaster splint maintaining the fingers fully extended and the wrist in neutral. The patient was then awakened, extubated, and transferred to Recovery in stable condition.ESTIMATED BLOOD LOSS: 5 cc.TOTAL FLUIDS: 500 mL LR.TOURNIQUET TIME: 105 minutes at 250 mmHg.INTRAOPERATIVE COMPLICATIONS: None.Aspen Delgado MD ESTTT: 10/29/2017 03:04 AM ESTDICTATION NUMBER: [id number] JOB NUMBER: [id number]:ALPA HANSONEdited by Aspen Delgado 10/30/2017 09:23:[address] S[address] Dr[address] Aspen Delgado 10/30/2017 09:23:17 AM Normal [facility] Patient Profile - Preop v2on 10-28-2017 Protein mass conc Profile:Initial Info :How to be AddressedChrisSpoken Language PreferredEnglishSource of InformationpatientAre you currently using the Personal Electronic Health Record or [facility] Reason for Admissionright-hand surgeryPrimary Contact Name and NumberElaine [phone] on Visitors/Phone CallsnonePatient BelongingsnoneMedications Brought to Hospitalno General Health:Weight in kg86.1 kilogram(s)Weight in dmx879.8 pound(s)Weight MethodstatedPatient or Family Member Reaction to Anesthesiapatient reactionPatient Reaction to AnesthesiahypotensionBlood Avoidance/RestrictionsnonePrev ious Transfusion Reactionno Health Mgmt:Symptoms/Conditions Managed at Homecancer; cardiovascularCancer Symptoms/ConditionsskinCardiov ascular Symptoms/Conditionshypertensio nBarriers to Managing Healthnone Relationship/Environ:Lives WithspouseLiving ArrangementshouseResource/Envi ronmental ConcernsnoneAnticipated Transition TohomeServices Anticipated at Transitionnone Substance:Current or Former Substance Use YES: Alcohol Alcohol Use Statuscurrent alcoholAlcohol Amount1-2 drinksAlcohol Frequencymonthly or less Risk Screens:Advance Directive MedicalyesAdvance Directive typeLiving Will, Durable Power of Scoop Operator for HealthcareLiving Will AvailabilityLiving Will not available nowDurable Power of Scoop Operator AvailabilityDPOA not available nowDuring the past month, have you often been bothered by feeling down, depressedor hopeless?noDuring the past month, have you often had little interest or pleasure in doingthings?noHave you had any thoughts of harming yourself?noHave you had any thoughts of harming anyone else?noPatient is Able to be Assessed for LearningyesFactors Influencing Readiness to LearnnoneFactors that Impact Ability to LearnnoneDevices/Methods Used to CommunicatenoneLearning Preferencesverbal instructionCultural ConsiderationsnoneDevelopmenta l ConsiderationsnoneReligious ConsiderationsnoneOther learner availablenoFalls RiskPatient location auto qualifies him/her for HIGH RISK.Are there any cultural, spiritual, zoroastrianism practices/values/needs that areimportant for us to know?noPain Scalenumerical 0-10Pain Scale Educationteaching providedCurrent Pain Level5 = ModerateAcceptable Pain Level0 = NoneChronic Painno Information Review:? Allergies, Home Meds and Significant Events have been Reviewed and Verifiedwith Patient/Familyyes Allergy, Intolerance, Adverse Event: Allergies:? No Known Allergies: Active Electronic Signatures:Erica Hines (FREEDOM) (Signed 28-Oct-2017 08:32)Authored: Profile, Additional Information Last Updated: 28-Oct-2017 08:32 by Erica Hines (FREEDOM) [facility] Preop Checkliston 10-28-2017 Preop Checklist Preop Checklist:Preo p Checklist:? Arrival [id number]? Arrival Time08:22? Procedure Typeleft index and long MP pyrocarbon arthroplasty, left indexdip fusion? NPO [id number]? ID Band Onyes? Allergy Bandno known allergies? Consent Signedpending? H&P Completepending? Anesthesia Assessment Completedpending? EKG Performednot ordered? Chest X-Ray Performednot ordered? Chlorhexadine Bath Givennot applicable? Soap and water bath with hair shampoo the night before surgerynot applicable? SCD's Appliednot applicable? ANGELICA Hose Appliednot ordered? Denturesnot applicable? Prostheticsnot applicable? Hearing Aidsnot applicable? Valuables Securedunder bed? Glasses / Contactsunder bed? Bowel Prepno Cardiovascular Assessment:? Radial Pulsespalpable? Extremitieswarm Respiratory Assessment:? Respirationsunlabored? Air Exchangegood Neurological Assessment:? Level of Consciousnessalert, oriented? Able to Express Selfyes? Age Appropriateyes? Emotional Statuscalm Preop Education:? Surgical Site Infection Preventionyes? Pain Scales and Managementyes Language / Communication:? Language / CommunicationEnglish Electronic Signatures:Erica Hines (FREEDOM) (Signed 28-Oct-2017 08:36)Authored: Preop Checklist Last Updated: 28-Oct-2017 08:36 by Erica Hines (FREEDOM) Normal [facility] Initial Visit (Orthopaedic S urgery)on 10-20-2017 Initial Visit (Orthopaedic Surgery) Chief ComplaintLeft hand arthritis History of Present IllnessASSESSMENT + PLAN :Left index and long MP osteoarthritisI reviewed this is equivalent to the previous problem in the right hand. The same options of observation, conservative measures, cortisone, or surgical joint replacement are available. You have already scheduled pyrocarbon joint replacement for the coming weeks. I reviewed your rehabilitation questions. Contact my office in the interim with any other concerns.The DIP joint of the left index finger also has significant arthritis. There is no replacement available for this joint. The only option effusion. You were interested in proceeding with that at the same time as the above procedures. HISTORY :8 months after last visit with Jasmin and improvement on her right hand. The index and long pyrocarbon implants are doing well. She is now having significantly more pain from the left index and long MP joints, and is interested in setting up pyrocarbon arthroplasty for those joints as well. Pain is aching at baseline and become sharper with grasp. No popping, catching, or instability. No recalled direct trauma to the joints. No other bothersome MP joints in the hand. She is having difficulty with the left index DIP joint, which is painful with attempted motion despite anti-inflammatories. 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 hand (715.14) (M19.041) Trigger middle finger of right hand (727.03) (M65.331) Family History Family history of 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 (V18.0) (Z83.3) Family history of hypertension (V17.49) (Z82.49) Family history of malignant neoplasm (V16.9) (Z80.9) Social History Non-smoker (V49.89) (Z78.9) Social alcohol use (Z78.9) Allergies No Known Drug Allergies Recorded By: Ruth Driscoll; 10/26/2015 2:33:30 PM Current Meds MethylPREDNISolone 4 MG Oral Tablet Therapy Pack; Take as directed;Therapy: 21Jan2017 to (Last Rx:21Jan2017) Requested for: 24Jan2017 Ordered Rx By: Bruna Delgado; Dispense: 0 Days ; #:1 Tablet Therapy Pack; Refill: 0;For: Pain of left hand, Pain of right hand; BEVERLEY = N; Verified Transmission to [facility] Ciprofloxacin HCl - 500 MG Oral Tablet; TAKE 1 TABLET TWICE DAILY;Therapy: 14Jan2017 to (Evaluate:24Jan2017) Requested for: 14Jan2017; LastRx:14Jan2017 Ordered Rx By: Bruna Delgado; Dispense: 10 Days ; #:20 Tablet; Refill: 0;For: Periprosthetic osteolysis of internal prosthetic joint, sequela; BEVERLEY = N; Verified Transmission to [facility] Oxycodone-Acetaminophen 5-325 MG Oral Tablet; TAKE 1 TABLET EVERY 6 HOURSAS NEEDED FOR PAIN;Therapy: 01Jan2017 to (Evaluate:11Jan2017); Last Rx:01Jan2017 Ordered Rx By: Ham Davis; Dispense: 10 Days ; #:40 Tablet; Refill: 0;For: Periprosthetic osteolysis of internal prosthetic joint, sequela; BEVERLEY = N; Print Rx Atorvastatin Calcium 40 MG Oral Tablet;Therapy: [id number] to Recorded Dispense: 90 Days ; #:90 TABS; Refill: 0; BEVERLEY = N; Record; Last Updated By: Carol Anders; 12/17/2016 9:06:23 AM Celecoxib 200 MG Oral Capsule;Therapy: 21May2016 to Recorded Dispense: 28 Days ; #:28 CAPS; Refill: 0; BEVERLEY = N; Record; Last Updated By: Carol Anders; 12/17/2016 9:06:23 AM Dicyclomine HCl - 20 MG Oral Tablet;Therapy: 30Sep2016 to Recorded Dispense: 90 Days ; #:180 TABS; Refill: 0; BEVERLEY = N; Record; Last Updated By: Carol Anders; 12/17/2016 9:06:23 AM Glimepiride 4 MG Oral Tablet;Therapy: 20Gfk5025 to Recorded Dispense: 30 Days ; #:30 TABS; Refill: 0; BEVERLEY = N; Record; Last Updated By: Carol Anders; 12/17/2016 9:06:23 AM Hydrocodone-Acetaminophen 5-300 MG Oral Tablet;Therapy: 18Apr2016 to Recorded Dispense: 3 Days ; #:20 TABS; Refill: 0; BEVERLEY = N; Record; Last Updated By: Carol Anders; 12/17/2016 9:06:23 AM Hydrocodone-Acetaminophen 5-325 MG Oral Tablet; take 1 tablet by mouth every 6hours if needed for pain;Therapy: 33Srp4513 to Recorded Rx By: CEVALLOS; Dispense: 7 Days ; #:30 TABS; Refill: 0; BEVERLEY = N; Record; Last Updated By: Carol Anders; 12/19/2015 10:33:43 AM Hydrocortisone 2.5 % External Ointment;Therapy: 30Kqg3991 to Recorded Dispense: 15 Days ; #:28 OINT; Refill: 0; BEVERLEY = N; Record; Last Updated By: Carol Anders; 12/17/2016 9:06:23 AM Hydroxychloroquine Sulfate 200 MG Oral Tablet;Therapy: 23Rhm8543 to Recorded Rx By: ARTURO; Dispense: 30 Days ; #:45 TABS; Refill: 0; BEVERLEY = N; Record; Last Updated By: Carol Anders; 12/19/2015 10:33:43 AM Invokana 100 MG Oral Tablet; take 1 tablet by mouth once daily BEFORE BREAKFAST;Therapy: 76Qrf0358 to Recorded Rx By: IVAN; Dispense: 30 Days ; #:30 TABS; Refill: 0; BEVERLEY = N; Record; Last Updated By: Carol Anders; 12/19/2015 10:33:43 AM Invokana 300 MG Oral Tablet;Therapy: 21Apr2016 to Recorded Dispense: 28 Days ; #:28 TABS; Refill: 0; BEVERLEY = N; Record; Last Updated By: Carol Anders; 12/17/2016 9:06:23 AM Lantus SoloStar 100 UNIT/ML Subcutaneous Solution Pen-injector;Therapy: 08Apr2016 to Recorded Dispense: 30 Days ; #:15 SOPN; Refill: 0; BEVERLEY = N; Record; Last Updated By: Carol Anders; 12/17/2016 9:06:23 AM Levothyroxine Sodium 100 MCG Oral Tablet;Therapy: 14Jan2017 to Recorded Dispense: 90 Days ; #:90 TABS; Refill: 0; BEVERLEY = N; Record; Last Updated By: Gorge Keen; 01/21/2017 12:12:08 PM Levothyroxine Sodium 88 MCG Oral Tablet;Therapy: 78Mro3413 to Recorded Dispense: 90 Days ; #:90 TABS; Refill: 0; BEVERLEY = N; Record; Last Updated By: Carol Anders; 12/17/2016 9:06:23 AM Lisinopril 20 MG Oral Tablet;Therapy: 52Jvw2959 to Recorded Dispense: 90 Days ; #:90 TABS; Refill: 0; BEVERLEY = N; Record; Last Updated By: Carol Anders; 12/17/2016 9:06:23 AM Meloxicam 15 MG Oral Tablet;Therapy: 31Gkj1463 to Recorded Dispense: 30 Days ; #:30 TABS; Refill: 0; BEVERLEY = N; Record; Last Updated By: Carol Anders; 12/17/2016 9:06:23 AM MetFORMIN HCl - 500 MG Oral Tablet;Therapy: 78Zfo2436 to Recorded Dispense: 30 Days ; #:60 TABS; Refill: 0; BEVERLEY = N; Record; Last Updated By: Carol Anders; 12/17/2016 9:06:23 AM MetFORMIN HCl ER 500 MG Oral Tablet Extended Release 24 Hour;Therapy: 66Ihe5187 to Recorded Dispense: 90 Days ; #:180 TB24; Refill: 0; BEVERLEY = N; Record; Last Updated By: Gorge Keen; 01/21/2017 12:12:08 PM Methotrexate 2.5 MG Oral Tablet;Therapy: 84Rzn9980 to Recorded Dispense: 28 Days ; #:16 TABS; Refill: 0; BEVERLEY = N; Record; Last Updated By: Carol Anders; 12/17/2016 9:06:23 AM PROzac 20 MG Oral Capsule;Therapy: 81Nzz5839 to Recorded Dispense: 0 Days ; #: Sufficient Capsule; Refill: 0; BEVERLEY = N; Record; Last Updated By: Carol Anders; 12/19/2015 10:40:21 AM PROzac 40 MG Oral Capsule;Therapy: 10Baw1317 to Recorded Dispense: 0 Days ; #: Sufficient Capsule; Refill: 0; BEVERLEY = N; Record; Last Updated By: Carol Anders; 12/19/2015 10:40:21 AM SulfaSALAzine 500 MG Oral Tablet;Therapy: 80Qqb7616 to Recorded Dispense: 30 Days ; #:120 TABS; Refill: 0; BEVERLEY = N; Record; Last Updated By: Carol Anders; 12/17/2016 9:06:23 AM Verapamil HCl ER 180 MG Oral Capsule Extended Release 24 Hour;Therapy: 08Kcg0573 to Recorded Dispense: 28 Days ; #:28 CP24; Refill: 0; BEVERLEY = N; Record; Last Updated By: Carol Anders; 12/17/2016 9:06:23 AM Physical ExamShe remains well-developed, well-nourished white female in no acute distress. She appears her stated age and has a pleasant affect. Skin of the right hand has well-healed incisions with no sign of infection. MP motion is 0-75 at index and long MP full 0-90. No squeak. Good stability.Left hand has mild swelling at index and long MP joints. Motion 0-60 with discomfort through the arc. Full PIP motion. Index DIP has just a 10 arc. Long finger about 50. Normal rotation with no scissoring. Tendons intact by individual testing. MP joints stable to varus and valgus stress. Sensation intact to light touch in all distributions. Capillary refill less than 2 seconds. Diagnoses/Problems Primary osteoarthritis of left hand (715.14) (M19.042) Provider ImpressionsI reviewed the options for further management of this condition and the likely success rates of each. The patient feels that they have maximized the benefits of conservative care, and they do want to go on to surgery.I reviewed the major risks of surgery including infection; scarring; damage to nerves, tendons, or vessels; stiffness; failure to relieve symptoms, recurrent symptoms, nonunion, malunion, hardware issues, replacement joint squeaking, and wound healing problems, as well as anesthesia risks. I answered their questions to their satisfaction. They were given my contact information and will contact the office when they are ready to schedule an exact surgical date. Surgery will be posted as follows :Dx : Left index and long MP osteoarthritis, index DIP osteoarthritisICD-10 : M19.042Procedure : Left index and long MP pyrocarbon arthroplasty, left index DIP fusionCPT : Anesth : GeneralLocation : Patient ChoiceDuration : 2 hoursSpecials : Mini C-arm, Integra pyrocarbon MP system, Synthes 3.0 headless screwsPAT : NoPost-Op Visit : 10-15 days Signatures Electronically signed by : Bruna Delgado MD,; Oct 20 2017 10:54AM EST (Author) Normal [employer] [facility] 05-07-2017 ALT enzyme act/vol 20 U/L Normal 7 - 45 [facility] Comment on above: Result Comment: Carolina ents treated with Sulfasalazine may generate falsely decreased results for ALT. Performed By: #### A LT ####[facility] [place] [address] Isablea 05-07-2017 AST enzyme act/vol 14 U/L Normal 9 - 39 [facility] Comment on above: Performed By: #### A ST ####[facility] [place] [address] CBC AND DIFFERENTIALon 05-07 % AUTOMATED IMMATURE GRAN 0.8 % Normal 0.0 - 0.9 [facility] Comment on above: Result Comment: Perc ent differential counts (%) should be interpreted in the context of the absolute cell counts (cells/L). Performed By: #### C BCDF ####[facility])[address] [place] [address] % NEUTROPHIL 69.1 % Normal 40.0 - 80.0 [facility] Comment on above: Performed By: #### C BCDF ####[facility])[address] [place] [address] Basophils/100 WBC Auto (Bld) 0.10 x10E9/L Normal 0.00 - 0.10 [facility] Comment on above: Performed By: #### C BCDF ####[facility] [place] [address] Basophils/100 WBC Auto (Bld) 1.1 % Normal 0.0 - 2.0 [facility] [facility] Comment on above: Performed By: #### C BCDF ####[facility])[address] [place] [address] Eosinophils Auto #/vol (Bld) 0.32 10*3/uL Normal 0.00 - 0.70 [facility] Comment on above: Performed By: #### C BCDF ####[facility])[address] [place] [address] Eosinophils/100 WBC Auto (Bld) 3.5 % Normal 0.0 - 6.0 [facility] Comment on above: Performed By: #### C BCDF ####[facility])[address] [place] [address] Erythrocyte distribution width Auto Ratio (RBC) 14.0 % Normal 11.5 - 14.5 [facility] Comment on above: Performed By: #### C BCDF ####[facility])[address] [place] [address] Hematocrit Auto Volume Fraction (Bld) 35.9 % Low 36.0 - 46.0 [facility] Comment on above: Performed By: #### C BCDF ####[facility])[address] [place] [address] Hemoglobin mass conc (Bld) 11.4 g/dL Low 12.0 - 16.0 [facility] Comment on above: Performed By: #### C BCDF ####[facility])[address] [place] [address] Lymphocytes Auto #/vol (Bld) 1.87 10*3/uL Normal 1.20 - 4.80 [facility] Comment on above: Performed By: #### C BCDF ####[facility])[address] [place] [address] Lymphocytes/100 WBC Auto (Bld) 20.3 % Normal 13.0 - 44.0 [facility] Comment on above: Performed By: #### C BCDF ####[facility])[address] [place] [address] MCHC Auto mass conc (RBC) 31.8 g/dL Low 32.0 - 36.0 [facility] Comment on above: Performed By: #### C BCDF ####[facility])[address] [place] [address] MCV Auto Entitic volume (RBC) 98 fL Normal 80 - 100 [facility] Comment on above: Performed By: #### C BCDF ####[facility])[address] [place] [address] Monocytes Auto #/vol (Bld) 0.48 10*3/uL Normal 0.10 - 1.00 [facility] Comment on above: Performed By: #### C BCDF ####[facility])[address] [place] [address] Monocytes/100 WBC Auto (Bld) 5.2 % Normal 2.0 - 10.0 [facility] Comment on above: Performed By: #### C BCDF ####[facility])[address] [place] [address] Neutrophils Auto #/vol (Bld) 6.39 10*3/uL Normal 1.20 - 7.70 [facility] Comment on above: Performed By: #### C BCDF ####[facility])[address] [place] [address] Nucleated RBC/100 WBC Ratio (Bld) 0.0 /100 WBC Normal 0.0-0.0 [facility] Comment on above: Performed By: #### C BCDF ####[facility])[address] [place] [address] Platelets Auto #/vol (Bld) 371 10*3/uL Normal 150 - 450 [facility] Comment on above: Performed By: #### C BCDF ####[facility])[address] [place] [address] RBC Auto #/vol (Bld) 3.65 x10E12/L Low 4.00 - 5.20 [facility] Comment on above: Performed By: #### C BCDF ####[facility])[address] [place] [address] WBC Auto #/vol (Bld) 9.2 10*3/uL Normal 4.4 - 11.3 [facility] Comment on above: Performed By: #### C BCDF ####[facility])[address] [place] [address] CREATININEon 05-07-2017 Creatinine mass conc 0.83 mg/dL Normal 0.50 - 1.05 [facility] Comment on above: Performed By: #### C REAT ####[facility])[address] [place] [address] GFR- AM. >60 Normal >60 [facility] Comment on above: Result Comment: CALC ULATIONS OF ESTIMATED GFR ARE PERFORMED USING THE MDRD STUDY EQUATION FOR THE IDMS-TRACEABLE CREATININE METHODS. CLIN CHEM 2007;53:[id number] Performed By: #### C REAT ####[facility])[address] [place] [address] GFR-NON AM. >60 Normal >60 [facility] Comment on above: Performed By: #### C REAT ####[facility])[address] [place] [address] SEDIMENTATION RATE, ERYTHROC YTEon 05-07-2017 SEDIMENTATION RATE, ERYTHROCYTE 13 mm/h Normal 0 - 30 [facility] Comment on above: Result Comment: Note new reference range (males age 17-50) and new methodology as of 04/02/2017. Performed By: #### E SRWS ####[facility])[address] [place] [address] Medium Joint Arthro/Inj: R u lnocarpal [facility] Vital Signs Date Time Vital Sign Value Performing Clinician Facility 11-23-2024 11:48-0400 Body mass index (BMI) [Ratio] 23.79 kg/m2 Snow Stratton MD Work Phone: [facility] 11-23-2024 11:48-0400 Body weight 59 kg Snow Stratton MD Work Phone: [facility] 11-23-2024 11:48-0400 Diastolic blood pressure 71 mm[Hg] Snow Stratton MD Work Phone: [facility] 11-23-2024 11:48-0400 Heart rate 85 /min Snow Stratton MD Work Phone: [facility] 11-23-2024 11:48-0400 Respiratory rate 16 /min Snow Stratton MD Work Phone: [facility] 11-23-2024 11:48-0400 Systolic blood pressure 135 mm[Hg] nSow Stratton MD Work Phone: [facility] 11-15-2024 13:07-0400 Body height 157.5 cm Pac 1 Work Phone: [facility] 11-15-2024 13:07-0400 Body mass index (BMI) [Ratio] 23.78 kg/m2 Pac 1 Work Phone: [facility] 11-15-2024 13:07-0400 Body temperature 99.1 [degF] Pacc 1 Work Phone: [facility] 11-15-2024 13:07-0400 Body weight 58.97 kg Pacc 1 Work Phone: [facility] 11-15-2024 13:07-0400 Diastolic blood pressure 68 mm[Hg] Pacc 1 Work Phone: [facility] 11-15-2024 13:07-0400 Heart rate 86 /min Pacc 1 Work Phone: [facility] 11-15-2024 13:07-0400 Respiratory rate 12 /min Pacc 1 Work Phone: [facility] 11-15-2024 13:07-0400 SaO2% (BldA) [Mass fraction] 97 % Pacc 1 Work Phone: [facility] 11-15-2024 13:07-0400 Systolic blood pressure 122 mm[Hg] Pacc 1 Work Phone: [facility] 10-13-2024 11:02-0400 Body mass index (BMI) [Ratio] 24.14 kg/m2 Snow Stratton MD Work Phone: [facility] 10-13-2024 11:02-0400 Body weight 59.88 kg Snow Stratton MD Work Phone: [facility] 10-13-2024 11:02-0400 Diastolic blood pressure 66 mm[Hg] Snow Stratton MD Work Phone: [facility] 10-13-2024 11:02-0400 Heart rate 80 /min Snow Stratton MD Work Phone: [facility] 10-13-2024 11:02-0400 Respiratory rate 16 /min Snow Stratton MD Work Phone: [facility] 10-13-2024 11:02-0400 Systolic blood pressure 120 mm[Hg] Snow Stratton MD Work Phone: [facility] 10-05-2024 12:37-0400 Body height 157.5 cm Marimar Cioce PHOTOGRAPHIC INTELLIGENCE OFFICER.CD REACTOR OPERATOR Work Phone: [facility] 10-05-2024 12:37-0400 Body mass index (BMI) [Ratio] 24.25 kg/m2 Marimar Cioce PHOTOGRAPHIC INTELLIGENCE OFFICER.CD REACTOR OPERATOR Work Phone: [facility] 10-05-2024 12:37-0400 Body weight 60.15 kg Marimar Cioce PHOTOGRAPHIC INTELLIGENCE OFFICER.CD REACTOR OPERATOR Work Phone: [facility] 10-05-2024 12:37-0400 Diastolic blood pressure 80 mm[Hg] Marimar Cioce PHOTOGRAPHIC INTELLIGENCE OFFICER.CD REACTOR OPERATOR Work Phone: [facility] 10-05-2024 12:37-0400 Heart rate 82 /min Marimar Cioce PHOTOGRAPHIC INTELLIGENCE OFFICER.CD REACTOR OPERATOR Work Phone: [facility] 10-05-2024 12:37-0400 Respiratory rate 17 /min Marimar Cioce PHOTOGRAPHIC INTELLIGENCE OFFICER.CD REACTOR OPERATOR Work Phone: [facility] 10-05-2024 12:37-0400 SaO2% (BldA) [Mass fraction] 97 % Marimar Cioce PHOTOGRAPHIC INTELLIGENCE OFFICER.CD REACTOR OPERATOR Work Phone: [facility] 10-05-2024 12:37-0400 Systolic blood pressure 136 mm[Hg] Marimar Cioce PHOTOGRAPHIC INTELLIGENCE OFFICER.CD REACTOR OPERATOR Work Phone: [facility] 09-21-2024 13:35-0400 Body mass index (BMI) [Ratio] 24.69 kg/m2 Christine Haagen PHOTOGRAPHIC INTELLIGENCE OFFICER.CD REACTOR OPERATOR Work Phone: [facility] 09-21-2024 13:35-0400 Body weight 61.24 kg Christine Haagen PHOTOGRAPHIC INTELLIGENCE OFFICER.CD REACTOR OPERATOR Work Phone: [facility] 09-21-2024 13:35-0400 Diastolic blood pressure 88 mm[Hg] Christine Haagen PHOTOGRAPHIC INTELLIGENCE OFFICER.CD REACTOR OPERATOR Work Phone: [facility] 09-21-2024 13:35-0400 Heart rate 74 /min Christine Haagen PHOTOGRAPHIC INTELLIGENCE OFFICER.CD REACTOR OPERATOR Work Phone: [facility] 09-21-2024 13:35-0400 Respiratory rate 16 /min Christine Santoyoagen PHOTOGRAPHIC INTELLIGENCE OFFICER.CD REACTOR OPERATOR Work Phone: [facility] 09-21-2024 13:35-0400 SaO2% (BldA) [Mass fraction] 100 % Christine Haagen PHOTOGRAPHIC INTELLIGENCE OFFICER.CD REACTOR OPERATOR Work Phone: [facility] 09-21-2024 13:35-0400 Systolic blood pressure 146 mm[Hg] Christine Haagen PHOTOGRAPHIC INTELLIGENCE OFFICER.CD REACTOR OPERATOR Work Phone: [facility] 09-15-2024 11:18-0400 Body height 157.5 cm Ish Higgins MD Work Phone: [facility] 09-15-2024 11:18-0400 Body mass index (BMI) [Ratio] 24.14 kg/m2 Ish Higgins MD Work Phone: [facility] 09-15-2024 11:18-0400 Body weight 59.88 kg Ish Higgins MD Work Phone: [facility] 09-15-2024 11:18-0400 Respiratory rate 18 /min Ish Higgins MD Work Phone: [facility] 05-11-2024 11:30-0500 Body height 157.5 cm Marimar Cioce PHOTOGRAPHIC INTELLIGENCE OFFICER.CD REACTOR OPERATOR Work Phone: [facility] 05-11-2024 11:30-0500 Body mass index (BMI) [Ratio] 24.14 kg/m2 Marimar Cioce PHOTOGRAPHIC INTELLIGENCE OFFICER.CD REACTOR OPERATOR Work Phone: [facility] 05-11-2024 11:30-0500 Body weight 59.88 kg Marimar Cioce PHOTOGRAPHIC INTELLIGENCE OFFICER.CD REACTOR OPERATOR Work Phone: [facility] 05-11-2024 11:30-0500 Diastolic blood pressure 92 mm[Hg] Marimar Cioce PHOTOGRAPHIC INTELLIGENCE OFFICER.CD REACTOR OPERATOR Work Phone: [facility] 05-11-2024 11:30-0500 Heart rate 73 /min Marimar Cioce PHOTOGRAPHIC INTELLIGENCE OFFICER.CD REACTOR OPERATOR Work Phone: [facility] 05-11-2024 11:30-0500 Respiratory rate 17 /min Marimar Cioce PHOTOGRAPHIC INTELLIGENCE OFFICER.CD REACTOR OPERATOR Work Phone: [facility] 05-11-2024 11:30-0500 SaO2% (BldA) [Mass fraction] 97 % Marimar Cioce PHOTOGRAPHIC INTELLIGENCE OFFICER.CD REACTOR OPERATOR Work Phone: [facility] 05-11-2024 11:30-0500 Systolic blood pressure 158 mm[Hg] Marimar Cioce PHOTOGRAPHIC INTELLIGENCE OFFICER.CD REACTOR OPERATOR Work Phone: [facility] 04-14-2024 12:56-0500 Body height 157.5 cm Juan Jose Keys DO Work Phone: [facility] 01-15-2024 13:04-0400 Diastolic blood pressure 88 mm[Hg] Christine Haagen PHOTOGRAPHIC INTELLIGENCE OFFICER.CD REACTOR OPERATOR Work Phone: [facility] 01-15-2024 13:04-0400 Heart rate 81 /min Christine Haagen PHOTOGRAPHIC INTELLIGENCE OFFICER.CD REACTOR OPERATOR Work Phone: [facility] 01-15-2024 13:04-0400 Respiratory rate 16 /min Christine Haagen PHOTOGRAPHIC INTELLIGENCE OFFICER.CD REACTOR OPERATOR Work Phone: [facility] 01-15-2024 13:04-0400 SaO2% (BldA) [Mass fraction] 95 % Christine Haagen PHOTOGRAPHIC INTELLIGENCE OFFICER.CD REACTOR OPERATOR Work Phone: [facility] 01-15-2024 13:04-0400 Systolic blood pressure 140 mm[Hg] Christine Haagen PHOTOGRAPHIC INTELLIGENCE OFFICER.CD REACTOR OPERATOR Work Phone: [facility] 12-15-2023 14:05-0400 Diastolic blood pressure 82 mm[Hg] Christine Haagen PHOTOGRAPHIC INTELLIGENCE OFFICER.CD REACTOR OPERATOR Work Phone: [facility] 12-15-2023 14:05-0400 Heart rate 95 /min Christine Haagen PHOTOGRAPHIC INTELLIGENCE OFFICER.CD REACTOR OPERATOR Work Phone: [facility] 12-15-2023 14:05-0400 Respiratory rate 16 /min Christine Haagen PHOTOGRAPHIC INTELLIGENCE OFFICER.CD REACTOR OPERATOR Work Phone: [facility] 12-15-2023 14:05-0400 Systolic blood pressure 122 mm[Hg] Christine Morgan PHOTOGRAPHIC INTELLIGENCE OFFICER.CD REACTOR OPERATOR Work Phone: [facility] 10-13-2023 10:41-0400 Body height 157.5 cm Juan Jose Keys DO Work Phone: [facility] 10-13-2023 10:41-0400 Body mass index (BMI) [Ratio] 24.69 kg/m2 Juan Jose Keys DO Work Phone: [facility] 10-13-2023 10:41-0400 Body weight 61.24 kg Juan Jose Keys DO Work Phone: [facility] 10-11-2023 17:08-0400 Body mass index (BMI) [Ratio] 25.06 kg/m2 Katerine Rodas Jr., PHOTOGRAPHIC INTELLIGENCE OFFICER.CD REACTOR OPERATOR Work Phone: [facility] 10-11-2023 17:08-0400 Body temperature 98.29 [degF] Katerine Rodas Jr., PHOTOGRAPHIC INTELLIGENCE OFFICER.CD REACTOR OPERATOR Work Phone: [facility] 10-11-2023 17:08-0400 Body weight 62.14 kg Katerine Rodas Jr., PHOTOGRAPHIC INTELLIGENCE OFFICER.CD REACTOR OPERATOR Work Phone: [facility] 10-11-2023 17:08-0400 Diastolic blood pressure 76 mm[Hg] Katerine Rodas Jr., PHOTOGRAPHIC INTELLIGENCE OFFICER.CD REACTOR OPERATOR Work Phone: [facility] 10-11-2023 17:08-0400 Heart rate 84 /min Katerine Rodas Jr., PHOTOGRAPHIC INTELLIGENCE OFFICER.CD REACTOR OPERATOR Work Phone: [facility] 10-11-2023 17:08-0400 Respiratory rate 16 /min Katerine Rodas Jr., PHOTOGRAPHIC INTELLIGENCE OFFICER.CD REACTOR OPERATOR Work Phone: [facility] 10-11-2023 17:08-0400 SaO2% (BldA) [Mass fraction] 95 % Katerine Rodas Jr., PHOTOGRAPHIC INTELLIGENCE OFFICER.CD REACTOR OPERATOR Work Phone: [facility] 10-11-2023 17:08-0400 Systolic blood pressure 140 mm[Hg] Katerine Rdoas Jr., APRN.CNP Work Phone: [facility] 10-06-2023 14:15-0400 Body height 157.5 cm Sindy Mcgregor MD Work Phone: [facility] 10-06-2023 14:15-0400 Body mass index (BMI) [Ratio] 24.87 kg/m2 Sindy Mcgregor MD Work Phone: [facility] 10-06-2023 14:15-0400 Body weight 61.69 kg Sindy Mcgregor MD Work Phone: [facility] 09-12-2023 12:39-0400 Body mass index (BMI) [Ratio] 25.42 kg/m2 Gely Sandoval DO Work Phone: [facility] 09-12-2023 12:39-0400 Body temperature 98.29 [degF] Gely Sandoval DO Work Phone: [facility] 09-12-2023 12:39-0400 Body weight 63.05 kg Gely Sandoval DO Work Phone: [facility] 09-12-2023 12:39-0400 Diastolic blood pressure 78 mm[Hg] Gely Sandoval DO Work Phone: [facility] 09-12-2023 12:39-0400 Heart rate 78 /min Gely Sandoval DO Work Phone: [facility] 09-12-2023 12:39-0400 Respiratory rate 17 /min Gely Sandoval DO Work Phone: [facility] 09-12-2023 12:39-0400 SaO2% (BldA) [Mass fraction] 98 % Gely Sandoval DO Work Phone: [facility] 09-12-2023 12:39-0400 Systolic blood pressure 124 mm[Hg] Gely Sandoval DO Work Phone: [facility] 08-26-2023 13:14-0400 Body height 157.5 cm Marimar Cioce PHOTOGRAPHIC INTELLIGENCE OFFICER.CD REACTOR OPERATOR Work Phone: [facility] 08-26-2023 13:14-0400 Body mass index (BMI) [Ratio] 25.46 kg/m2 Marimar Cioce PHOTOGRAPHIC INTELLIGENCE OFFICER.CD REACTOR OPERATOR Work Phone: [facility] 08-26-2023 13:14-0400 Body temperature 98.91 [degF] Marimar Cioce PHOTOGRAPHIC INTELLIGENCE OFFICER.CD REACTOR OPERATOR Work Phone: [facility] 08-26-2023 13:14-0400 Body weight 63.14 kg Marimar Cioce PHOTOGRAPHIC INTELLIGENCE OFFICER.CD REACTOR OPERATOR Work Phone: [facility] 08-26-2023 13:14-0400 Diastolic blood pressure 72 mm[Hg] Marimar Cioce PHOTOGRAPHIC INTELLIGENCE OFFICER.CD REACTOR OPERATOR Work Phone: [facility] 08-26-2023 13:14-0400 Heart rate 81 /min Marimar Cioce PHOTOGRAPHIC INTELLIGENCE OFFICER.CD REACTOR OPERATOR Work Phone: [facility] 08-26-2023 13:14-0400 SaO2% (BldA) [Mass fraction] 96 % Marimar Cioce PHOTOGRAPHIC INTELLIGENCE OFFICER.CD REACTOR OPERATOR Work Phone: [facility] 08-26-2023 13:14-0400 Systolic blood pressure 136 mm[Hg] Marimar Cioce PHOTOGRAPHIC INTELLIGENCE OFFICER.CD REACTOR OPERATOR Work Phone: [facility] 08-12-2023 11:03-0400 Body height 157.5 cm Ani Madrid PHOTOGRAPHIC INTELLIGENCE OFFICER.CD REACTOR OPERATOR Work Phone: [facility] 08-12-2023 11:03-0400 Body mass index (BMI) [Ratio] 25.6 kg/m2 Ani Madrid PHOTOGRAPHIC INTELLIGENCE OFFICER.CD REACTOR OPERATOR Work Phone: [facility] 08-12-2023 11:03-0400 Body temperature 97.39 [degF] Ani Madrid PHOTOGRAPHIC INTELLIGENCE OFFICER.CD REACTOR OPERATOR Work Phone: [facility] 08-12-2023 11:03-0400 Body weight 63.5 kg Ani Madrid PHOTOGRAPHIC INTELLIGENCE OFFICER.CD REACTOR OPERATOR Work Phone: [facility] 08-12-2023 11:03-0400 Diastolic blood pressure 71 mm[Hg] Ani Madrid PHOTOGRAPHIC INTELLIGENCE OFFICER.CD REACTOR OPERATOR Work Phone: [facility] 08-12-2023 11:03-0400 Heart rate 72 /min Ani Madrid PHOTOGRAPHIC INTELLIGENCE OFFICER.CD REACTOR OPERATOR Work Phone: [facility] 08-12-2023 11:03-0400 SaO2% (BldA) [Mass fraction] 98 % Ani Madrid PHOTOGRAPHIC INTELLIGENCE OFFICER.CD REACTOR OPERATOR Work Phone: [facility] 08-12-2023 11:03-0400 Systolic blood pressure 138 mm[Hg] Ani Madrid PHOTOGRAPHIC INTELLIGENCE OFFICER.CD REACTOR OPERATOR Work Phone: [facility] 08-05-2023 13:58-0400 Diastolic blood pressure 84 mm[Hg] Christine Haagen PHOTOGRAPHIC INTELLIGENCE OFFICER.CD REACTOR OPERATOR Work Phone: [facility] 08-05-2023 13:58-0400 Heart rate 79 /min Christine Haagen PHOTOGRAPHIC INTELLIGENCE OFFICER.CD REACTOR OPERATOR Work Phone: [facility] 08-05-2023 13:58-0400 Respiratory rate 16 /min Christine Haagen PHOTOGRAPHIC INTELLIGENCE OFFICER.CD REACTOR OPERATOR Work Phone: [facility] 08-05-2023 13:58-0400 SaO2% (BldA) [Mass fraction] 94 % Christine Morgan PHOTOGRAPHIC INTELLIGENCE OFFICER.CD REACTOR OPERATOR Work Phone: [facility] 08-05-2023 13:58-0400 Systolic blood pressure 128 mm[Hg] Christine Haagen PHOTOGRAPHIC INTELLIGENCE OFFICER.CD REACTOR OPERATOR Work Phone: [facility] 12-01-2022 14:52-0400 Blood Pressure Location VIVIANE JOHNSON MD [facility] 12-01-2022 14:52-0400 Blood Pressure Method VIVIANE JOHNSON MD [facility] 12-01-2022 14:52-0400 Body temperature 98.42 [degF] VIVIANE JOHNSON MD [facility] 12-01-2022 14:52-0400 Diastolic Blood Pressure Non-Invasive 51 [address] [facility] 12-01-2022 14:52-0400 Heart rate 75 /min VIVIANE JOHNSON MD [address] [place] [id number] 12-01-2022 14:52-0400 Reason For Taking VItal Signs VIVIANE JOHNSON MD [facility] 12-01-2022 14:52-0400 Respiratory rate 20 /min VIVIANE JOHNSON MD [address] [place] [id number] 12-01-2022 14:52-0400 Systolic Blood Pressure Non-Invasive 125 1 VIVIANE JOHNSON MD [address] [place] [id number] 12-01-2022 13:56-0400 Diastolic Blood Pressure Non-Invasive 59 1 VIVIANE JOHNSON MD [address] [place] [id number] 12-01-2022 13:56-0400 Systolic Blood Pressure Non-Invasive 122 [address] [facility] 12-01-2022 10:17-0400 Body temperature 98.06 [degF] VIVIANE JOHNSON MD [facility] 12-01-2022 10:17-0400 Diastolic Blood Pressure Non-Invasive 83 [address] [facility] 12-01-2022 10:17-0400 Heart rate 94 /min VIVIANE JOHNSON MD [facility] 12-01-2022 10:17-0400 Reason For Taking VItal Signs VIVIANE JOHNSON MD [facility] 12-01-2022 10:17-0400 Respiratory rate 18 /min VIVIANE JOHNSON MD [facility] 12-01-2022 10:17-0400 Systolic Blood Pressure Non-Invasive 172 [address] [facility] 12-01-2022 07:11-0400 Heart rate 67 /min VIVIANE JOHNSON MD [facility] 12-01-2022 07:11-0400 Respiratory rate 18 /min VIVIANE JOHNSON MD [facility] 12-01-2022 06:39-0400 Blood Pressure Cuff Size VIVIANE JOHNSON MD [facility] 12-01-2022 06:39-0400 Blood Pressure Location VIVIANE JOHNSON MD [address] [place] [id number] 12-01-2022 06:39-0400 Blood Pressure Method VIVIANE JOHNSON MD [facility] 12-01-2022 06:39-0400 Body temperature 98.06 [degF] VIVIANE JOHNSON MD [facility] 12-01-2022 06:39-0400 Heart rate 81 /min VIVIANE JOHNSON MD [address] [place] [id number] 12-01-2022 06:39-0400 Reason For Taking VItal Signs VIVIANE JOHNSON MD [facility] 12-01-2022 02:36-0400 Blood Pressure Cuff Size VIVIANE JOHNSON MD [facility] 12-01-2022 02:36-0400 Blood Pressure Location VIVIANE JOHNSON MD [facility] 12-01-2022 02:36-0400 Blood Pressure Method VIVIANE JOHNSON MD [facility] 12-01-2022 02:36-0400 Heart rate 86 /min VIVIANE JOHNSON MD [facility] 11-30-2022 23:52-0400 Blood Pressure Cuff Size VIVIANE JOHNSON MD [facility] 11-30-2022 23:52-0400 Heart rate 84 /min VIVIANE JOHNSON MD [facility] 11-30-2022 12:05-0400 Mean blood pressure 98 mm[Hg] VIVIANE JOHNSON MD [address] [place] [id number] 11-30-2022 06:52-0400 Heart rate 77 /min VIVIANE JOHNSON MD [address] [place] [id number] 11-29-2022 14:41-0400 Mean blood pressure 79 mm[Hg] VIVIANE JOHNSON MD [address] [place] [id number] 11-29-2022 10:31-0400 Mean blood pressure 85 mm[Hg] VIVIANE JOHNSON MD [address] [place] [id number] 11-29-2022 02:53-0400 Heart rate 82 /min VIVIANE JOHNSON MD [address] [place] [id number] 11-28-2022 13:51-0400 Diastolic blood pressure 81 mm[Hg] VIVIANE JOHNSON MD [address] [place] [id number] 11-28-2022 13:51-0400 Signs/Symptoms Transfusion Reaction No VIVIANE JOHNSON MD [address] [place] [id number] 11-28-2022 13:51-0400 Systolic blood pressure 134 mm[Hg] VIVIANE JOHNSON MD [address] [place] [id number] 11-28-2022 13:51-0400 Transfusion Documentation Ended/Paper VIVIANE JOHNSON MD [address] [place] [id number] 11-28-2022 13:45-0400 Signs/Symptoms Transfusion Reaction VIVIANE JOHNSON MD [address] [place] [id number] 11-28-2022 13:15-0400 Signs/Symptoms Transfusion Reaction VIVIANE JOHNSON MD [address] [place] [id number] 11-28-2022 12:15-0400 Diastolic blood pressure 74 mm[Hg] VIVIANE JOHNSON MD [address] [place] [id number] 11-28-2022 12:15-0400 Systolic blood pressure 147 mm[Hg] VIVIANE JOHNSON MD [address] [place] [id number] 11-28-2022 12:00-0400 Inspected Blood Donor Unit Appearance VIVIANE JOHNSON MD [facility] 11-28-2022 12:00-0400 Transfusion Documentation Started/Paper VIVIANE JOHNSON MD [facility] 11-28-2022 11:45-0400 Heart rate 96 /min VIVIANE JOHNSON MD [facility] 11-28-2022 03:25-0400 Body height 157.5 cm VIVIANE JOHNSON MD [address] [place] [id number] 11-28-2022 03:25-0400 Body weight 63.6 kg VIVIANE JOHNSON MD [facility] 11-28-2022 03:25-0400 Body weight 25.64 kg/m2 VIVIANE JOHNSON MD [facility] 11-28-2022 01:30-0400 Diastolic Blood Pressure Non-Invasive [address] SEKOU WALKER MD [facility] 11-28-2022 01:30-0400 Heart rate 88 /min DR SEKOU WALKER MD [facility] 11-28-2022 01:30-0400 Respiratory rate 16 /min DR SEKOU WALKER MD [facility] 11-28-2022 01:30-0400 Systolic Blood Pressure Non-Invasive [address] WALKER MD [facility] 11-28-2022 00:00-0400 Diastolic Blood Pressure Non-Invasive [address]OU WALKER MD [facility] 11-28-2022 00:00-0400 Heart rate 92 /min DR SEKOU WALKER MD [facility] 11-28-2022 00:00-0400 Systolic Blood Pressure Non-Invasive [address] WALKER MD [facility] 11-27-2022 22:38-0400 Body temperature 98.24 [degF] DR SEKOU WALKER MD [facility] 11-27-2022 22:38-0400 Diastolic Blood Pressure Non-Invasive [address] W[address] [facility] 11-27-2022 22:38-0400 Heart rate 97 /min DR SEKOU WALKER MD [facility] 11-27-2022 22:38-0400 Reason For Taking VItal Signs DR SEOKU WALKER MD [facility] 11-27-2022 22:38-0400 Respiratory rate 18 /min DR SEKOU WALKER MD [facility] 11-27-2022 22:38-0400 Signs/Symptoms Transfusion Reaction DR SEKOU WALKER MD [facility] 11-27-2022 22:38-0400 Systolic Blood Pressure Non-Invasive [address] W[address] [facility] 11-27-2022 21:39-0400 Signs/Symptoms Transfusion Reaction No DR SEKOU WALKER MD [facility] 11-27-2022 21:38-0400 Body temperature 99.68 [degF] DR SEKOU WALKER MD [facility] 11-27-2022 21:38-0400 Diastolic blood pressure 57 mm[Hg] DR SEKOU WALKER MD [facility] 11-27-2022 21:38-0400 Heart rate 94 /min DR SEKOU WALKER MD [facility] 11-27-2022 21:38-0400 Systolic blood pressure 93 mm[Hg] DR SEKOU WALKER MD [facility] 11-27-2022 21:15-0400 Signs/Symptoms Transfusion Reaction DR SEKOU WALKER MD [facility] 11-27-2022 20:45-0400 Reason For Taking VItal Signs DR SEKOU WALKER MD [facility] 11-27-2022 20:29-0400 Inspected Blood Donor Unit Appearance DR SEKOU WALKER MD [facility] 11-27-2022 20:22-0400 Reason For Taking VItal Signs DR SEKOU WALKER MD [facility] 11-27-2022 12:39-0400 Heart rate 87 /min DR SEKOU WALKER MD [facility] 11-27-2022 11:50-0400 Body temperature 97.52 [degF] DR SEKOU WALKER MD [facility] 11-27-2022 11:50-0400 Body weight 64.[address] SEKOU WALKER MD [facility] 11-27-2022 11:50-0400 Heart rate 106 /min DR SEKOU WALKER MD [facility] 11-26-2022 17:52-0400 Body temperature 97.52 [degF] RAFI EGAN MD [facility] 11-26-2022 17:52-0400 Diastolic Blood Pressure Non-Invasive 71 [address] [facility] 11-26-2022 17:52-0400 Heart rate 87 /min RAFI EGAN MD [facility] 11-26-2022 17:52-0400 Respiratory rate 16 /min RAFI EGAN MD [facility] 11-26-2022 17:52-0400 Systolic Blood Pressure Non-Invasive [address] [facility] 11-26-2022 15:35-0400 Body temperature 96.98 [degF] RAFI EGAN MD [facility] 11-26-2022 15:35-0400 Diastolic Blood Pressure Non-Invasive 61 [address] [facility] 11-26-2022 15:35-0400 Heart rate 76 /min RAFI EGAN MD [facility] 11-26-2022 15:35-0400 Reason For Taking VItal Signs RAFI EGAN MD [facility] 11-26-2022 15:35-0400 Respiratory rate 16 /min RAFI EGAN MD [facility] 11-26-2022 15:35-0400 Systolic Blood Pressure Non-Invasive [address] [facility] 11-26-2022 15:23-0400 Diastolic Blood Pressure Non-Invasive 79 [address] [facility] 11-26-2022 15:23-0400 Heart rate 76 /min RAFI EGAN MD [facility] 11-26-2022 15:23-0400 Mean blood pressure 95 mm[Hg] RAFI EGAN MD [facility] 11-26-2022 15:23-0400 Respiratory rate 20 /min RAFI EGAN MD [facility] 11-26-2022 15:23-0400 Systolic Blood Pressure Non-Invasive 124 [address] [facility] 11-26-2022 15:08-0400 Body temperature 96.98 [degF] RAFI EGAN MD [facility] 11-26-2022 15:08-0400 Heart rate 70 /min RAFI EGAN MD [facility] 11-26-2022 15:08-0400 Mean blood pressure 88 mm[Hg] RAFI EGAN MD [facility] 11-26-2022 14:53-0400 Mean blood pressure 88 mm[Hg] RAFI EGAN MD [facility] 11-26-2022 14:08-0400 Body temperature 96.26 [degF] RAFI EGAN MD [facility] 11-26-2022 14:05-0400 Respiratory Rate - Anes 0 br/min RAFI EGAN MD [facility] 11-26-2022 13:55-0400 Respiratory Rate - Anes 9 br/min RAFI EGAN MD [facility] 11-26-2022 13:45-0400 Body temperature 95.25 [degF] RAFI EGAN MD [facility] 11-26-2022 13:40-0400 Body temperature 95.36 [degF] RAFI EGAN MD [facility] 11-26-2022 13:35-0400 Body temperature 95.27 [degF] RAFI EGAN MD [facility] 11-26-2022 09:21-0400 Body height 157.5 cm [address]FI EGAN [address] [facility] 11-26-2022 09:21-0400 Body weight 64.1 kg RAFI EGAN MD [facility] 11-26-2022 09:21-0400 Heart rate 77 /min RAFI EGAN MD [facility] 11-17-2022 15:18-0400 Diastolic blood pressure 84 mm[Hg] Christine Haagen PHOTOGRAPHIC INTELLIGENCE OFFICER.CD REACTOR OPERATOR Work Phone: [facility] 11-17-2022 15:18-0400 Heart rate 85 /min Christine Haagen PHOTOGRAPHIC INTELLIGENCE OFFICER.CD REACTOR OPERATOR Work Phone: [facility] 11-17-2022 15:18-0400 Systolic blood pressure 129 mm[Hg] Christine Haagen PHOTOGRAPHIC INTELLIGENCE OFFICER.CD REACTOR OPERATOR Work Phone: [facility] 11-17-2022 14:09-0400 Body weight 65.32 kg Christine Haagen PHOTOGRAPHIC INTELLIGENCE OFFICER.CD REACTOR OPERATOR Work Phone: [facility] 11-17-2022 14:09-0400 Respiratory rate 16 /min Christine Haagen PHOTOGRAPHIC INTELLIGENCE OFFICER.CD REACTOR OPERATOR Work Phone: [facility] 11-17-2022 14:09-0400 SaO2% (BldA) [Mass fraction] 95 % Christine Haagen PHOTOGRAPHIC INTELLIGENCE OFFICER.CD REACTOR OPERATOR Work Phone: [facility] 11-12-2022 14:04-0400 Body height 155.5 [address] [facility] 11-12-2022 14:04-0400 Body temperature 97.88 [degF] RAFI EGAN MD [facility] 11-12-2022 14:04-0400 Body weight 65.[address]AN [address] [facility] 11-12-2022 14:04-0400 Body weight 26.96 kg/m2 RAFI EGAN MD [facility] 11-12-2022 14:04-0400 Diastolic Blood Pressure Non-Invasive [address] [facility] 11-12-2022 14:04-0400 Heart rate 88 /min RAFI EGAN MD [facility] 11-12-2022 14:04-0400 Systolic Blood Pressure Non-Invasive [address] [facility] 10-02-2022 15:54-0400 Body temperature 98.2 [degF] Saniya Halderman-Douglas PT Work Phone: [facility] 10-02-2022 15:54-0400 Diastolic blood pressure 70 mm[Hg] Saniya Halderman-Douglas PT Work Phone: [facility] 10-02-2022 15:54-0400 Heart rate 79 /min Saniya Halderman-Douglas PT Work Phone: [facility] 10-02-2022 15:54-0400 Respiratory rate 18 /min Saniya Halderman-Douglas PT Work Phone: [facility] 10-02-2022 15:54-0400 SaO2% (BldA) [Mass fraction] 96 % Saniya Halderman-Douglas PT Work Phone: [facility] 10-02-2022 15:54-0400 Systolic blood pressure 138 mm[Hg] Saniya Halderman-Douglas PT Work Phone: [facility] 09-29-2022 13:32-0400 Body temperature 98.1 [degF] Saniya Halderman-Douglas PT Work Phone: [facility] 09-29-2022 13:32-0400 Diastolic blood pressure 58 mm[Hg] Saniya Halderman-Douglas PT Work Phone: [facility] 09-29-2022 13:32-0400 Heart rate 78 /min Saniya Halderman-Douglas PT Work Phone: [facility] 09-29-2022 13:32-0400 Respiratory rate 18 /min Saniya Halderman-Douglas PT Work Phone: [facility] 09-29-2022 13:32-0400 SaO2% (BldA) [Mass fraction] 96 % Saniya Halderman-Douglas PT Work Phone: [facility] 09-29-2022 13:32-0400 Systolic blood pressure 140 mm[Hg] Saniya Halderman-Douglas PT Work Phone: [facility] 09-27-2022 12:31-0400 Diastolic blood pressure 78 mm[Hg] Mary Jane Montgomery BIZTALK CONSULTANT Work Phone: [facility] 09-27-2022 12:31-0400 Heart rate 82 /min Mary Jane Montgomery BIZTALK CONSULTANT Work Phone: [facility] 09-27-2022 12:31-0400 SaO2% (BldA) [Mass fraction] 98 % Mary Jane Montgomery BIZTALK CONSULTANT Work Phone: [facility] 09-27-2022 12:31-0400 Systolic blood pressure 128 mm[Hg] Mary Jane Montgomery BIZTALK CONSULTANT Work Phone: [facility] 09-27-2022 11:57-0400 Body temperature 98.49 [degF] Mary Janemargie Montgomery BIZTALK CONSULTANT Work Phone: [facility] 09-24-2022 15:58-0400 Body temperature 98.29 [degF] Saniya Halderman-Douglas PT Work Phone: [facility] 09-24-2022 15:58-0400 Diastolic blood pressure 80 mm[Hg] Saniya Halderman-Douglas PT Work Phone: [facility] 09-24-2022 15:58-0400 Heart rate 92 /min Saniya Halderman-Douglas PT Work Phone: [facility] 09-24-2022 15:58-0400 Respiratory rate 18 /min Saniya Halderman-Douglas PT Work Phone: [facility] 09-24-2022 15:58-0400 SaO2% (BldA) [Mass fraction] 95 % Saniya Halderman-Douglas PT Work Phone: [facility] 09-24-2022 15:58-0400 Systolic blood pressure 142 mm[Hg] Saniya Halderman-Douglas PT Work Phone: [facility] 09-22-2022 12:05-0400 Body temperature 98.29 [degF] King [place] PT Work Phone: [facility] 09-22-2022 12:05-0400 Diastolic blood pressure 80 mm[Hg] King [place] PT Work Phone: [facility] 09-22-2022 12:05-0400 Heart rate 64 /min King [place] PT Work Phone: [facility] 09-22-2022 12:05-0400 Respiratory rate 16 /min King [place] PT Work Phone: [facility] 09-22-2022 12:05-0400 SaO2% (BldA) [Mass fraction] 98 % King [place] PT Work Phone: [facility] 09-22-2022 12:05-0400 Systolic blood pressure 130 mm[Hg] King [place] PT Work Phone: [facility] 09-20-2022 12:00-0400 Diastolic blood pressure 84 mm[Hg] Mari Buzzi BIZTALK CONSULTANT Work Phone: [facility] 09-20-2022 12:00-0400 Heart rate 92 /min Mari Buzzi BIZTALK CONSULTANT Work Phone: [facility] 09-20-2022 12:00-0400 Respiratory rate 20 /min Mari Buzzi BIZTALK CONSULTANT Work Phone: [facility] 09-20-2022 12:00-0400 SaO2% (BldA) [Mass fraction] 96 % Mari Buzzi BIZTALK CONSULTANT Work Phone: [facility] 09-20-2022 12:00-0400 Systolic blood pressure 138 mm[Hg] Mari Buzzi BIZTALK CONSULTANT Work Phone: [facility] 09-20-2022 11:20-0400 Body temperature 97.39 [degF] Mari Buzzi BIZTALK CONSULTANT Work Phone: [facility] 09-18-2022 12:46-0400 Diastolic blood pressure 89 mm[Hg] Rangel Giffels PT Work Phone: [facility] 09-18-2022 12:46-0400 Heart rate 74 /min Rangel Giffels PT Work Phone: [facility] 09-18-2022 12:46-0400 Respiratory rate 20 /min Rangel Giffels PT Work Phone: [facility] 09-18-2022 12:46-0400 SaO2% (BldA) [Mass fraction] 97 % Rangel Giffels PT Work Phone: [facility] 09-18-2022 12:46-0400 Systolic blood pressure 148 mm[Hg] Rangel Giffels PT Work Phone: [facility] 09-18-2022 11:51-0400 Body temperature 98.1 [degF] Rangel Giffels PT Work Phone: [facility] 07-31-2022 11:43-0400 Body temperature 97.7 [degF] Saniya Halderman-Douglas PT Work Phone: [facility] 07-31-2022 11:43-0400 Diastolic blood pressure 74 mm[Hg] Saniya Halderman-Douglas PT Work Phone: [facility] 07-31-2022 11:43-0400 Heart rate 68 /min Saniya Halderman-Douglas PT Work Phone: [facility] 07-31-2022 11:43-0400 Respiratory rate 18 /min Saniya Halderman-Douglas PT Work Phone: [facility] 07-31-2022 11:43-0400 SaO2% (BldA) [Mass fraction] 99 % Saniya Halderman-Douglas PT Work Phone: [facility] 07-31-2022 11:43-0400 Systolic blood pressure 134 mm[Hg] Saniya Halderman-Douglas PT Work Phone: [facility] 07-29-2022 10:58-0400 Body weight 69.85 kg Christine Hamirna PHOTOGRAPHIC INTELLIGENCE OFFICER.CD REACTOR OPERATOR Work Phone: [facility] 07-29-2022 10:58-0400 Diastolic blood pressure 76 mm[Hg] Christine Haagen PHOTOGRAPHIC INTELLIGENCE OFFICER.CD REACTOR OPERATOR Work Phone: [facility] 07-29-2022 10:58-0400 Heart rate 91 /min Christine Haagen PHOTOGRAPHIC INTELLIGENCE OFFICER.CD REACTOR OPERATOR Work Phone: [facility] 07-29-2022 10:58-0400 Respiratory rate 18 /min Christine Haagen PHOTOGRAPHIC INTELLIGENCE OFFICER.CD REACTOR OPERATOR Work Phone: [facility] 07-29-2022 10:58-0400 SaO2% (BldA) [Mass fraction] 97 % Christine Haagen PHOTOGRAPHIC INTELLIGENCE OFFICER.CD REACTOR OPERATOR Work Phone: [facility] 07-29-2022 10:58-0400 Systolic blood pressure 118 mm[Hg] Christine Haagen PHOTOGRAPHIC INTELLIGENCE OFFICER.CD REACTOR OPERATOR Work Phone: [facility] 07-28-2022 15:44-0400 Body temperature 97.59 [degF] Esperanza Sherine BIZTALK CONSULTANT Work Phone: [facility] 07-28-2022 15:44-0400 Diastolic blood pressure 86 mm[Hg] Esperanza Sherine BIZTALK CONSULTANT Work Phone: [facility] 07-28-2022 15:44-0400 Heart rate 76 /min Esperanza Sherine BIZTALK CONSULTANT Work Phone: [facility] 07-28-2022 15:44-0400 Respiratory rate 18 /min Esperanza Sherine BIZTALK CONSULTANT Work Phone: [facility] 07-28-2022 15:44-0400 SaO2% (BldA) [Mass fraction] 96 % Esperanza Sherine BIZTALK CONSULTANT Work Phone: [facility] 07-28-2022 15:44-0400 Systolic blood pressure 136 mm[Hg] Esperanza Sherine BIZTALK CONSULTANT Work Phone: [facility] 07-24-2022 14:26-0400 Body temperature 98.91 [degF] Esperanza Sherine BIZTALK CONSULTANT Work Phone: [facility] 07-24-2022 14:26-0400 Diastolic blood pressure 86 mm[Hg] Esperanza Sherine BIZTALK CONSULTANT Work Phone: [facility] 07-24-2022 14:26-0400 Heart rate 72 /min Esperanza Sherine BIZTALK CONSULTANT Work Phone: [facility] 07-24-2022 14:26-0400 Respiratory rate 18 /min Esperanza Sherine BIZTALK CONSULTANT Work Phone: [facility] 07-24-2022 14:26-0400 SaO2% (BldA) [Mass fraction] 92 % Esperanza Sherine BIZTALK CONSULTANT Work Phone: [facility] 07-24-2022 14:26-0400 Systolic blood pressure 122 mm[Hg] Esperanza Sherine BIZTALK CONSULTANT Work Phone: [facility] 07-21-2022 13:22-0400 Body temperature 98.71 [degF] Esperanza Sherine BIZTALK CONSULTANT Work Phone: [facility] 07-21-2022 13:22-0400 Diastolic blood pressure 74 mm[Hg] Esperanza Sherine BIZTALK CONSULTANT Work Phone: [facility] 07-21-2022 13:22-0400 Heart rate 77 /min Esperanza Sherine BIZTALK CONSULTANT Work Phone: [facility] 07-21-2022 13:22-0400 Respiratory rate 18 /min Esperanza Sherine BIZTALK CONSULTANT Work Phone: [facility] 07-21-2022 13:22-0400 SaO2% (BldA) [Mass fraction] 98 % Esperanza Sherine BIZTALK CONSULTANT Work Phone: [facility] 07-21-2022 13:22-0400 Systolic blood pressure 116 mm[Hg] Esperanza Sherine BIZTALK CONSULTANT Work Phone: [facility] 07-17-2022 11:53-0400 Body temperature 97.59 [degF] Esperanza Sherine BIZTALK CONSULTANT Work Phone: [facility] 07-17-2022 11:53-0400 Diastolic blood pressure 88 mm[Hg] Esperanza Sherine BIZTALK CONSULTANT Work Phone: [facility] 07-17-2022 11:53-0400 Heart rate 77 /min Esperanza Sherine BIZTALK CONSULTANT Work Phone: [facility] 07-17-2022 11:53-0400 Respiratory rate 18 /min Esperanza Sherine BIZTALK CONSULTANT Work Phone: [facility] 07-17-2022 11:53-0400 SaO2% (BldA) [Mass fraction] 98 % Esperanza Sherine BIZTALK CONSULTANT Work Phone: [facility] 07-17-2022 11:53-0400 Systolic blood pressure 138 mm[Hg] Esperanza Sherine BIZTALK CONSULTANT Work Phone: [facility] 07-14-2022 15:23-0400 Body temperature 98.6 [degF] Esperanza Sherine BIZTALK CONSULTANT Work Phone: [facility] 07-14-2022 15:23-0400 Diastolic blood pressure 76 mm[Hg] Esperanza Sherine BIZTALK CONSULTANT Work Phone: [facility] 07-14-2022 15:23-0400 Heart rate 88 /min Esperanza Sherine BIZTALK CONSULTANT Work Phone: [facility] 07-14-2022 15:23-0400 Respiratory rate 18 /min Esperanza Sherine BIZTALK CONSULTANT Work Phone: [facility] 07-14-2022 15:23-0400 SaO2% (BldA) [Mass fraction] 95 % Esperanza Sherine BIZTALK CONSULTANT Work Phone: [facility] 07-14-2022 15:23-0400 Systolic blood pressure 118 mm[Hg] Esperanza Sherine BIZTALK CONSULTANT Work Phone: [facility] 07-11-2022 12:25-0400 Diastolic blood pressure 70 mm[Hg] Saniya Martínez PT Work Phone: [facility] 07-11-2022 12:25-0400 Heart rate 90 /min Saniya Martínez PT Work Phone: [facility] 07-11-2022 12:25-0400 Respiratory rate 16 /min Saniya Martínez PT Work Phone: [facility] 07-11-2022 12:25-0400 SaO2% (BldA) [Mass fraction] 98 % Saniya Martínez PT Work Phone: [facility] 07-11-2022 12:25-0400 Systolic blood pressure 128 mm[Hg] Saniya Martínez PT Work Phone: [facility] 07-11-2022 11:58-0400 Body temperature 98.29 [degF] Saniya Martínez PT Work Phone: [facility] 06-24-2022 19:41-0400 Body height 157.5 cm [facility] 2 [facility] 06-24-2022 19:41-0400 Body weight 72.58 kg [facility] 2 [facility] 06-09-2022 16:24-0400 Body temperature 99.1 [degF] Willow Resendiz APRN.CD REACTOR OPERATOR Work Phone: [facility] 06-09-2022 16:24-0400 Body weight 72.58 kg Willow Resendiz APRN.CD REACTOR OPERATOR Work Phone: [facility] 06-09-2022 16:24-0400 Diastolic blood pressure 72 mm[Hg] Willow Resendiz APRN.CD REACTOR OPERATOR Work Phone: [facility] 06-09-2022 16:24-0400 Heart rate 74 /min Willow Resendiz APRN.CD REACTOR OPERATOR Work Phone: [facility] 06-09-2022 16:24-0400 Respiratory rate 16 /min Willow Resendiz APRN.CD REACTOR OPERATOR Work Phone: [facility] 06-09-2022 16:24-0400 SaO2% (BldA) [Mass fraction] 96 % Willow Resendiz APRN.CD REACTOR OPERATOR Work Phone: [facility] 06-09-2022 16:24-0400 Systolic blood pressure 122 mm[Hg] Willow Resendiz CD REACTOR OPERATOR Work Phone: [facility] 05-29-2022 13:59-0500 Body height 158.8 cm [facility] 2 Work Phone: [facility] 05-29-2022 13:59-0500 Body temperature 98.2 [degF] Pacc 2 Work Phone: [facility] 05-29-2022 13:59-0500 Body weight 71.67 kg Pacc 2 Work Phone: [facility] 05-29-2022 13:59-0500 Diastolic blood pressure 69 mm[Hg] Pacc 2 Work Phone: [facility] 05-29-2022 13:59-0500 Heart rate 77 /min Pacc 2 Work Phone: [facility] 05-29-2022 13:59-0500 Respiratory rate 16 /min Pacc 2 Work Phone: [facility] 05-29-2022 13:59-0500 SaO2% (BldA) [Mass fraction] 98 % Pacc 2 Work Phone: [facility] 05-29-2022 13:59-0500 Systolic blood pressure 115 mm[Hg] Pacc 2 Work Phone: [facility] 05-12-2022 14:08-0500 Body height 157.5 cm Pacc 1 Work Phone: [facility] 05-12-2022 14:08-0500 Body weight 70.31 kg Pacc 1 Work Phone: [facility] 04-02-2022 08:51-0500 Diastolic blood pressure 78 mm[Hg] Keke Toscano MD Work Phone: [facility] 04-02-2022 08:51-0500 Heart rate 70 /min Keke Toscano MD Work Phone: [facility] 04-02-2022 08:51-0500 Respiratory rate 16 /min Keke Toscano MD Work Phone: [facility] 04-02-2022 08:51-0500 SaO2% (BldA) [Mass fraction] 100 % Keke Toscano MD Work Phone: [facility] 04-02-2022 08:51-0500 Systolic blood pressure 160 mm[Hg] Keke Toscano MD Work Phone: [facility] 04-02-2022 07:12-0500 Body temperature 97.9 [degF] Keke Toscano MD Work Phone: [facility] 03-21-2022 08:30-0500 Body temperature 98.6 [degF] Willow Resendiz APRN.CD REACTOR OPERATOR Work Phone: [facility] 03-21-2022 08:30-0500 Body weight 73.21 kg Willow Resendiz APRN.CD REACTOR OPERATOR Work Phone: [facility] 03-21-2022 08:30-0500 Diastolic blood pressure 82 mm[Hg] Willow Resendiz APRN.CD REACTOR OPERATOR Work Phone: [facility] 03-21-2022 08:30-0500 Heart rate 89 /min Willow Resendiz APRN.CD REACTOR OPERATOR Work Phone: [facility] 03-21-2022 08:30-0500 Respiratory rate 18 /min Willow Resendiz APRN.CD REACTOR OPERATOR Work Phone: [facility] 03-21-2022 08:30-0500 SaO2% (BldA) [Mass fraction] 98 % Willow Resendiz APRN.CD REACTOR OPERATOR Work Phone: [facility] 03-21-2022 08:30-0500 Systolic blood pressure 118 mm[Hg] Willow Resendiz APRN.CD REACTOR OPERATOR Work Phone: [facility] 02-25-2022 10:48-0500 Body height 157.5 cm Sindy Mcgregor MD Work Phone: [facility] 02-25-2022 10:48-0500 Body temperature 97.81 [degF] Sindy Mcgregor MD Work Phone: [facility] 02-25-2022 10:48-0500 Body weight 73.85 kg Sindy Mcgregor MD Work Phone: [facility] 02-25-2022 10:48-0500 Diastolic blood pressure 73 mm[Hg] Sindy Mcgregor MD Work Phone: [facility] 02-25-2022 10:48-0500 Heart rate 84 /min Sindy Mcgregor MD Work Phone: [facility] 02-25-2022 10:48-0500 SaO2% (BldA) [Mass fraction] 98 % Sindy Mcgregor MD Work Phone: [facility] 02-25-2022 10:48-0500 Systolic blood pressure 147 mm[Hg] Sindy Mcgregor MD Work Phone: [facility] 02-12-2022 13:02-0500 Body height 157.5 cm Dionna Hetal PA-C Work Phone: [facility] 02-12-2022 13:02-0500 Body temperature 97.39 [degF] Dionna [place] PA-C Work Phone: [facility] 02-12-2022 13:02-0500 Body weight 73.57 kg Dionna Hetal PA-C Work Phone: [facility] 02-12-2022 13:02-0500 Diastolic blood pressure 78 mm[Hg] Dionna Hetal PA-C Work Phone: [facility] 02-12-2022 13:02-0500 Heart rate 105 /min Dionna [place] PA-C Work Phone: [facility] 02-12-2022 13:02-0500 SaO2% (BldA) [Mass fraction] 96 % Dionna Hetal PA-C Work Phone: [facility] 02-12-2022 13:02-0500 Systolic blood pressure 128 mm[Hg] Dionna [place] PA-C Work Phone: [facility] 01-29-2022 11:09-0500 Body weight 73.48 kg Christine Morgan PHOTOGRAPHIC INTELLIGENCE OFFICER.CD REACTOR OPERATOR Work Phone: [facility] 01-29-2022 11:09-0500 Diastolic blood pressure 88 mm[Hg] Christine Morgan PHOTOGRAPHIC INTELLIGENCE OFFICER.CD REACTOR OPERATOR Work Phone: [facility] 01-29-2022 11:09-0500 Heart rate 85 /min Christine Haagen PHOTOGRAPHIC INTELLIGENCE OFFICER.CD REACTOR OPERATOR Work Phone: [facility] 01-29-2022 11:09-0500 Respiratory rate 18 /min Christine Morgan PHOTOGRAPHIC INTELLIGENCE OFFICER.CD REACTOR OPERATOR Work Phone: [facility] 01-29-2022 11:09-0500 SaO2% (BldA) [Mass fraction] 97 % Christine Morgan PHOTOGRAPHIC INTELLIGENCE OFFICER.CD REACTOR OPERATOR Work Phone: [facility] 01-29-2022 11:09-0500 Systolic blood pressure 128 mm[Hg] Christine Morgan PHOTOGRAPHIC INTELLIGENCE OFFICER.CD REACTOR OPERATOR Work Phone: [facility] 12-05-2021 03:05-0400 Body temperature 98.2 [degF] Saniya Pate-Misael PT Work Phone: [facility] 12-05-2021 03:05-0400 Diastolic blood pressure 70 mm[Hg] Saniya Roman-Misael PT Work Phone: [facility] 12-05-2021 03:05-0400 Heart rate 78 /min Saniya Pate-Misael PT Work Phone: [facility] 12-05-2021 03:05-0400 Respiratory rate 16 /min Saniya Palaciosderpraful-Douglas PT Work Phone: [facility] 12-05-2021 03:05-0400 SaO2% (BldA) [Mass fraction] 98 % Saniya Pate-Misael PT Work Phone: [facility] 12-05-2021 03:05-0400 Systolic blood pressure 128 mm[Hg] Saniya Halderman-Douglas PT Work Phone: [facility] 12-03-2021 15:59-0400 Body temperature 98.29 [degF] Esperanza Sherine BIZTALK CONSULTANT Work Phone: [facility] 12-03-2021 15:59-0400 Diastolic blood pressure 78 mm[Hg] Esperanza Sherine BIZTALK CONSULTANT Work Phone: [facility] 12-03-2021 15:59-0400 Heart rate 76 /min Esperanza Sherine BIZTALK CONSULTANT Work Phone: [facility] 12-03-2021 15:59-0400 Respiratory rate 18 /min Esperanza Sherine BIZTALK CONSULTANT Work Phone: [facility] 12-03-2021 15:59-0400 SaO2% (BldA) [Mass fraction] 98 % Esperanza Sherine BIZTALK CONSULTANT Work Phone: [facility] 12-03-2021 15:59-0400 Systolic blood pressure 122 mm[Hg] Esperanza Sherine BIZTALK CONSULTANT Work Phone: [facility] 11-28-2021 16:07-0400 Body temperature 97.3 [degF] Esperanza Sherine BIZTALK CONSULTANT Work Phone: [facility] 11-28-2021 16:07-0400 Diastolic blood pressure 74 mm[Hg] Esperanza Sherine BIZTALK CONSULTANT Work Phone: [facility] 11-28-2021 16:07-0400 Heart rate 82 /min Esperanza Sherine BIZTALK CONSULTANT Work Phone: [facility] 11-28-2021 16:07-0400 Respiratory rate 18 /min Esperanza Sherine BIZTALK CONSULTANT Work Phone: [facility] 11-28-2021 16:07-0400 SaO2% (BldA) [Mass fraction] 95 % Esperanza Sherine BIZTALK CONSULTANT Work Phone: [facility] 11-28-2021 16:07-0400 Systolic blood pressure 118 mm[Hg] Esperanza Sherine BIZTALK CONSULTANT Work Phone: [facility] 11-26-2021 15:59-0400 Body temperature 98.2 [degF] Saniya Pate-Douglas PT Work Phone: [facility] 11-26-2021 15:59-0400 Diastolic blood pressure 74 mm[Hg] Saniya Pate-Douglas PT Work Phone: [facility] 11-26-2021 15:59-0400 Heart rate 78 /min Saniya Pate-Douglas PT Work Phone: [facility] 11-26-2021 15:59-0400 Respiratory rate 18 /min Saniya Pate-Douglas PT Work Phone: [facility] 11-26-2021 15:59-0400 SaO2% (BldA) [Mass fraction] 98 % Saniya Pate-Douglas PT Work Phone: [facility] 11-26-2021 15:59-0400 Systolic blood pressure 146 mm[Hg] Saniya Pate-Douglas PT Work Phone: [facility] 11-21-2021 14:39-0400 Diastolic blood pressure 74 mm[Hg] Uzma Merlin PT Work Phone: [facility] 11-21-2021 14:39-0400 Heart rate 76 /min Uzma Mrelin PT Work Phone: [facility] 11-21-2021 14:39-0400 Respiratory rate 16 /min Uzma Merlin PT Work Phone: [facility] 11-21-2021 14:39-0400 SaO2% (BldA) [Mass fraction] 97 % Uzma Merlin PT Work Phone: [facility] 11-21-2021 14:39-0400 Systolic blood pressure 124 mm[Hg] Uzma Merlin PT Work Phone: [facility] 11-21-2021 13:41-0400 Body temperature 98.4 [degF] Uzma Merlin PT Work Phone: [facility] 10-23-2021 13:46-0400 Body temperature 98.01 [degF] Ham Wu MD Work Phone: [facility] 10-23-2021 13:46-0400 Body weight 73.94 kg Ham Wu MD Work Phone: [facility] 10-23-2021 13:46-0400 Diastolic blood pressure 92 mm[Hg] Ham Wu MD Work Phone: [facility] 10-23-2021 13:46-0400 Heart rate 82 /min Ham Wu MD Work Phone: [facility] 10-23-2021 13:46-0400 Respiratory rate 18 /min Ham Wu MD Work Phone: [facility] 10-23-2021 13:46-0400 SaO2% (BldA) [Mass fraction] 96 % Ham Wu MD Work Phone: [facility] 10-23-2021 13:46-0400 Systolic blood pressure 168 mm[Hg] Ham Wu MD Work Phone: [facility] 10-11-2021 10:27-0400 Body height 157.5 cm Christine Haagen PHOTOGRAPHIC INTELLIGENCE OFFICER.CD REACTOR OPERATOR Work Phone: [facility] 10-11-2021 10:27-0400 Body temperature 97.9 [degF] Christine Haagen PHOTOGRAPHIC INTELLIGENCE OFFICER.CD REACTOR OPERATOR Work Phone: [facility] 10-11-2021 10:27-0400 Body weight 73.03 kg Christine Haagen PHOTOGRAPHIC INTELLIGENCE OFFICER.CD REACTOR OPERATOR Work Phone: [facility] 10-11-2021 10:27-0400 Diastolic blood pressure 68 mm[Hg] Christine Haagen PHOTOGRAPHIC INTELLIGENCE OFFICER.CD REACTOR OPERATOR Work Phone: [facility] 10-11-2021 10:27-0400 Heart rate 73 /min Christine Haagen PHOTOGRAPHIC INTELLIGENCE OFFICER.CD REACTOR OPERATOR Work Phone: [facility] 10-11-2021 10:27-0400 Respiratory rate 12 /min Christine Haagen PHOTOGRAPHIC INTELLIGENCE OFFICER.CD REACTOR OPERATOR Work Phone: [facility] 10-11-2021 10:27-0400 SaO2% (BldA) [Mass fraction] 98 % Christine Haagen PHOTOGRAPHIC INTELLIGENCE OFFICER.CD REACTOR OPERATOR Work Phone: [facility] 10-11-2021 10:27-0400 Systolic blood pressure 124 mm[Hg] Christine Haagen PHOTOGRAPHIC INTELLIGENCE OFFICER.CD REACTOR OPERATOR Work Phone: [facility] 07-29-2021 13:13-0400 Body weight 73.94 kg Christine Haagen PHOTOGRAPHIC INTELLIGENCE OFFICER.CD REACTOR OPERATOR Work Phone: [facility] 07-29-2021 13:13-0400 Diastolic blood pressure 80 mm[Hg] Christine Haagen PHOTOGRAPHIC INTELLIGENCE OFFICER.CD REACTOR OPERATOR Work Phone: [facility] 07-29-2021 13:13-0400 Heart rate 75 /min Christine Haagen PHOTOGRAPHIC INTELLIGENCE OFFICER.CD REACTOR OPERATOR Work Phone: [facility] 07-29-2021 13:13-0400 Respiratory rate 18 /min Christine Haagen PHOTOGRAPHIC INTELLIGENCE OFFICER.CD REACTOR OPERATOR Work Phone: [facility] 07-29-2021 13:13-0400 SaO2% (BldA) [Mass fraction] 98 % Christine Haagen PHOTOGRAPHIC INTELLIGENCE OFFICER.CD REACTOR OPERATOR Work Phone: [facility] 07-29-2021 13:13-0400 Systolic blood pressure 126 mm[Hg] Christine Haagen PHOTOGRAPHIC INTELLIGENCE OFFICER.CD REACTOR OPERATOR Work Phone: [facility] Encounters Encounter Date Encounter Type Care Provider Facility Start: 01-27-2025 End: 01-27-2025 ambulatory LORETA PANDEY Facility:[facility] Start: 01-24-2025 End: 01-24-2025 ambulatory LORETA KENNEDYLINDSEY Facility:[facility] Start: 01-17-2025 End: 01-17-2025 ambulatory [facility] Facility:[facility] Start: 01-05-2025 End: 01-05-2025 ambulatory [facility] Facility:[facility] Start: 12-28-2024 End: 12-28-2024 ambulatory SNOW STRATTON Facility:[facility] Start: 12-21-2024 End: 12-21-2024 ambulatory ISH Ventura SATBANDAR Facility:[facility] Start: 12-15-2024 End: 12-15-2024 ambulatory [facility] Facility:[facility] Start: 12-06-2024 End: 12-06-2024 ambulatory [facility] Facility:[facility] Start: 11-23-2024 End: 11-23-2024 Office outpatient visit 25 minutes Snow Stratton MD Work Phone: Geriatrics Comment on above: Weight loss (Primary Dx); Nausea; Other complicated headache syndrome; Attention deficit; Decreased appetite; Other insomnia Start: 11-23-2024 End: 11-23-2024 ambulatory SNOW STRATTON Facility:[facility] Start: 11-15-2024 End: 11-15-2024 [facility] [place] [facility] Work Phone: Pre Anesthesia Comment on above: Mixed hyperlipidemia (Primary Dx); Essential hypertension; Coronary artery disease involving blackfeet coronary artery of blackfeet heart without angina pectoris; MARIBEL (obstructive sleep apnea); Mild intermittent asthma 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 (HCC); Irritable bowel syndrome with diarrhea; GERD without esophagitis; Renal lesion; Stage 3 chronic kidney disease, unspecified whether stage 3a or 3b CKD (HCC); 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, 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 Start: 10-19-2024 End: 10-19-2024 Telephone encounter Snow Stratton MD Work Phone: Internal Medicine [place] Comment on above: Orders; need order c hanged Start: 10-13-[address] [facility] Facility :[id number] Start: 10-13-2024 End: 10-13-2024 Subsequent hospital visit by physician [facility] [place] Work Phone: [facility] Comment on above: Pancreatic cyst (HCC ) [K86.2] Start: 10-13-2024 End: 10-13-2024 ambulatory [facility] Facility:[facility] Start: 10-13-2024 End: 10-13-2024 Patient encounter procedure Snow Stratton MD Work Phone: Geriatrics Comment on above: Attention deficit hy peractivity disorder (ADHD), combined type (Primary Dx); Memory loss; Major depressive disorder, remission status unspecified, unspecified whether recurrent Start: 10-05-2024 End: 10-05-2024 Telephone encounter Rafael XAVIER Work Phone: Endocrinology Start: 10-05-2024 End: 10-05-2024 Patient encounter procedure Marimar Wilcox APRN.CD REACTOR OPERATOR Work Phone: Endocrinology Comment on above: Controlled type 2 di abetes 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, without long-term current use of insulin (HCC) (Primary Dx) Start: 10-05-2024 End: 10-05-2024 ambulatory [facility] Facility:[facility] Start: 09-28-2024 End: 09-30-2024 Follow-up encounter Christine Morgan APRN.CNP Work Phone: Family Medicine [place] Comment on above: Results Start: 09-27-2024 End: 09-27-2024 ambulatory Lory Chan RN Work Phone: [facility] Attendant Management Comment on above: Bi-Weekly Outreach ( Recurring) for Chronic Disease Management, Bi-Weekly Outreach (Recurring) for Chronic Disease Management Start: 09-21-2024 End: 09-21-2024 ambulatory [facility] Start: 09-21-2024 End: 09-21-2024 Office outpatient visit 25 minutes Christine Morgan APRN.CNP Work Phone: [facility] [place] Comment on above: Memory loss (Primary Dx); Essential hypertension; Mixed hyperlipidemia; 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, unspecified whether longterm insulin use (HCC); Insomnia, unspecified type; GERD without esophagitis Start: 09-21-2024 End: 09-21-2024 ambulatory [facility] Facility:[facility] Start: 09-15-2024 End: 09-15-2024 Orders Only Ish Higgins MD Work Phone: [facility] Orthopedics Comment on above: 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) Start: 09-14-2024 End: 09-14-2024 ambulatory Lory Chan RN Work Phone: [facility] Att[facility] Comment on above: Bi-Weekly Outreach ( Recurring) for Chronic Disease Management Start: 09-13-2024 End: 09-13-2024 OT/PT/Speech Visit Sarahi Barker PT, [place] [facility] [place] Comment on above: Impaired strength of lower extremity (Primary Dx); Balance disorder; Iliotibial band syndrome of right side Start: 09-07-2024 End: 09-07-2024 ambulatory [place] Thompson PT [facility] [place] Start: 09-07-2024 End: 09-07-2024 Telephone encounter Marimar Wilcox APRN.CNP Work Phone: Endocrinology Comment on above: Chaperon - O ther ([place] Patient Assistance application) Impaired strength of lower extremity (Primary Dx); Balance disorder; Iliotibial band syndrome of right side Start: 09-05-2024 End: 09-05-2024 Subsequent hospital visit by physician [employer] [address] Radiology Comment on above: Impingement syndrome of right shoulder [M75.41] Start: 09-05-2024 End: 09-08-2024 ambulatory Delfin Kerr MD Work Phone: Orthopaedics Start: 09-05-2024 End: 09-08-2024 Patient encounter procedure Delfin Kerr MD Work Phone: Orthopaedics Comment on above: Wrist referral Start: 08-30-2024 End: 08-30-2024 Patient encounter procedure Delfin Kerr MD Work Phone: Orthopaedics Comment on above: Pain of ulnar side o f wrist (Primary Dx) Start: 08-30-2024 End: 08-30-2024 ambulatory [facility] Facility:[facility] Start: 08-25-2024 End: 08-25-2024 ambulatory Lory Chan RN Work Phone: [facility] [employer] Comment on above: Bi-Weekly Outreach ( Recurring) for Chronic Disease Management Start: 08-24-2024 End: 08-25-2024 OT/PT/Speech Visit Apple Bender PT, DPT Work Phone: [facility] [place] Comment on above: Impaired strength of lower extremity (Primary Dx); Impingement syndrome of right shoulder; Rotator cuff strain, right, subsequent encounter; Balance disorder; Iliotibial band syndrome of right side Start: 08-18-2024 End: 08-18-2024 Patient encounter procedure Donavon Patricia MD Work Phone: Orthopaedics Comment on above: Pes anserinus bursit is of right knee (Primary Dx); It band syndrome, right; Status post right knee replacement Start: 08-18-2024 End: 08-18-2024 ambulatory [facility] Facility:[facility] Start: 08-18-2024 End: 08-18-2024 Subsequent hospital visit by physician Radio General Jacki Mckeon Work Phone: Radiology Comment on above: Right knee pain, uns pecified chronicity [M25.561] Start: 08-17-2024 End: 08-19-2024 Refill Christine Morgan APRN.CNP Work Phone: [facility] [place] Comment on above: Refill Request Start: 08-08-2024 End: 10-08-2024 Follow-up encounter Christine Morgan APRN.CNP Work Phone: [facility] [place] Start: 08-03-2024 ambulatory [facility] Facility :[id number] Start: 08-03-2024 End: 08-03-2024 Subsequent hospital visit by physician [facility] Comment on above: Encounter for screen ing mammogram for breast cancer [Z12.31] Start: 08-02-2024 End: 08-02-2024 Telephone encounter Sarahi Styles Radiology Comment on above: Appointment Start: 08-02-2024 End: 08-02-2024 Patient encounter procedure Delfin Kerr MD Work Phone: Orthopaedics Comment on above: Impingement syndrome of right shoulder (Primary Dx); Rotator cuff strain, right, subsequent encounter Start: 08-02-2024 End: 08-02-2024 ambulatory [facility] Facility:[facility] Start: 07-27-2024 End: 07-27-2024 ambulatory Lory Chan RN Work Phone: [facility] Start: 07-27-2024 End: 07-27-2024 Coordination of care plan Lory Chan RN Work Phone: [facility] Att[facility] Management Comment on above: Care Coordination (C DM Care Path Telephonic Outreach) Bi- Weekly Outreach (Recurring) for Chronic Disease Management Start: 07-26-2024 End: 07-26-2024 Telephone encounter Rafael Traylor ELEVATOR TENDER Work Phone: Endocrinology Start: 07-20-2024 End: 07-20-2024 ambulatory Rafael Traylor ELEVATOR TENDER Work Phone: Endocrinology Comment on above: [employer] Form Bi-Weekly Outreach ( Recurring) for Chronic Disease Management Start: 07-20-2024 End: 07-20-2024 E-mail encounter from caregiver Rafael Traylor ELEVATOR TENDER Work Phone: Endocrinology Start: 07-19-2024 End: 07-19-2024 Follow-up encounter Ariadne Gomez APRN.CD REACTOR OPERATOR Work Phone: [facility] Comment on above: Results Start: 07-18-2024 End: 07-18-2024 ambulatory ARIADNE GOMEZ Facility:[id number] Start: 07-12-2024 End: 07-20-2024 ambulatory Marimar Betty Cioce PHOTOGRAPHIC INTELLIGENCE OFFICER.CD REACTOR OPERATOR Work Phone: Endocrinology Comment on above: Trulicity Start: 06-27-2024 End: 06-27-2024 ambulatory Marimar C Cioce PHOTOGRAPHIC INTELLIGENCE OFFICER.CD REACTOR OPERATOR Work Phone: Endocrinology Comment on above: Truelicity Start: 06-27-2024 End: 06-27-2024 Patient encounter procedure Ariadne Herndon MA [facility] Comment on above: Population Health Na vigation Outreach (Micheal DEL REAL) Start: 06-23-2024 End: 06-23-2024 ambulatory Lory Chan RN Work Phone: [facility] Comment on above: Initial enrollment o bam for Chronic Disease Management Start: 06-23-2024 End: 06-27-2024 Telephone encounter Ananya Sandy MAIL TRUCK DRIVER Navigation Start: 05-31-2024 End: 05-31-2024 ambulatory [facility] PHOTOGRAPHIC INTELLIGENCE OFFICER.CD REACTOR OPERATOR Work Phone: [facility] Comment on above: Bone scan Start: 05-18-2024 End: 05-18-2024 Telephone encounter Marimar Wilcox PHOTOGRAPHIC INTELLIGENCE OFFICER.CD REACTOR OPERATOR Work Phone: Endocrinology Comment on above: Updated OV Notes to DME Refill Request Start: 05-11-2024 End: 05-11-[address] [facility] Facility:[facility] Start: 05-11-2024 End: 05-11-2024 Patient encounter procedure Marimar Wilcox PHOTOGRAPHIC INTELLIGENCE OFFICER.CD REACTOR OPERATOR Work Phone: Endocrinology Comment on above: Controlled type 2 di abetes 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, without long-term current use of insulin (HCC) (Primary Dx) Start: 05-05-2024 End: 05-05-2024 Refill Christine Black PHOTOGRAPHIC INTELLIGENCE OFFICER.CD REACTOR OPERATOR Work Phone: [facility] Comment on above: Refill Request Start: 04-14-2024 End: 04-14-2024 Telephone encounter Rafael Traylor ELEVATOR TENDER Work Phone: Endocrinology Start: 04-14-2024 End: 04-14-2024 ambulatory [facility] Facility:[facility] Start: 04-14-2024 End: 04-14-2024 Office outpatient visit 15 minutes Juan Jose Keys DO Work Phone: Orthopaedics Comment on above: Pain of ulnar side o f wrist (Primary Dx) Start: 04-08-2024 End: 04-26-2024 ambulatory Marimar Hernández Cioce PHOTOGRAPHIC INTELLIGENCE OFFICER.CD REACTOR OPERATOR Work Phone: Endocrinology Comment on above: Esther Castellanos sens ors Start: 03-29-2024 End: 03-29-2024 Patient encounter procedure Delfin Kerr MD Work Phone: Orthopaedics Comment on above: Shoulder impingement (Primary Dx); Chronic right shoulder pain Start: 03-29-2024 End: 03-29-2024 ambulatory CHRISTINE HAAGEN Facility:[facility] Start: 03-29-2024 End: 03-29-2024 Subsequent hospital visit by physician Radio General Jacki Mckeon Work Phone: Radiology Comment on above: Right shoulder pain, unspecified chronicity [M25.511] Start: 03-21-2024 End: 03-21-2024 ambulatory Afsaneh Mahan PT [place] [facility] Physical Therapy Comment on above: Falls (Primary Dx) Start: 03-15-2024 End: 03-15-2024 Orders Only Delfin Kerr MD Work Phone: Orthopaedics Comment on above: Right shoulder pain, unspecified chronicity (Primary Dx) Start: 03-07-2024 End: 03-08-2024 Refill Christine Haagen PHOTOGRAPHIC INTELLIGENCE OFFICER.CD REACTOR OPERATOR Work Phone: [facility] Comment on above: Refill Request Start: 03-03-2024 End: 03-03-2024 Refill Christine Haagen PHOTOGRAPHIC INTELLIGENCE OFFICER.CD REACTOR OPERATOR Work Phone: [facility] Comment on above: Refill Request Start: 02-24-2024 End: 02-29-2024 ambulatory Christine Haagen PHOTOGRAPHIC INTELLIGENCE OFFICER.CD REACTOR OPERATOR Work Phone: Internal Medicine [facility] [place] Start: 02-23-2024 End: 02-23-2024 ambulatory Jase Dumont RN Work Phone: [facility] Comment on above: community monitoring outreach (Monthly cdm call) Start: 02-03-2024 End: 02-03-2024 Patient encounter procedure Curtis Ferguson MD Work Phone: Orthopaedics Comment on above: Closed fracture of b ase of fifth metatarsal bone of right foot, initial encounter (Primary Dx) Start: 02-03-2024 End: 02-03-2024 ambulatory CURTIS Toby JEANUNA Facility:[facility] Start: 02-03-2024 End: 02-03-2024 Subsequent hospital visit by physician Radio General Jacki Mckeon Work Phone: Radiology Comment on above: Pain [R52] Start: 01-25-2024 End: 01-25-2024 ambulatory Aston Rodriguez RN Work Phone: [facility] Start: 01-18-2024 End: 01-18-2024 Telephone encounter Ariadne Gomez APRN.CNP Work Phone: Family [facility] [place] Comment on above: Results Start: 01-15-2024 End: 01-15-2024 Office outpatient visit 25 minutes Christine Morgan APRN.CNP Work Phone: [facility] [place] Comment on above: Moderate episode of recurrent major depressive disorder (HCC) (Primary Dx); Encounter for immunization; Pain in both hands; Falls Start: 01-08-2024 End: 01-09-2024 Telephone encounter Christine Morgan APRN.CNP Work Phone: [facility] [place] Comment on above: Results Start: 12-28-2023 End: 12-28-2023 Subsequent hospital visit by physician [facility] (I-Stat) Work Phone: Cat Scan Comment on above: Pancreatic cyst [K86 .2] Start: 12-25-2023 End: 12-25-2023 ambulatory Jase Dumont RN Work Phone: [facility] Comment on above: community monitoring outreach (Monthly cdm call) Start: 12-16-2023 End: 12-16-2023 Telephone encounter Christine Morgan APRN.CNP Work Phone: [facility] [place] Comment on above: fax order to [facility] Start: 12-15-2023 End: 12-15-2023 Office outpatient visit 25 minutes Christine Morgan APRN.CNP Work Phone: [facility] Comment on above: Closed fracture of r ight foot with routine healing, subsequent encounter (Primary Dx); Hypothyroidism, unspecified type; Encounter for immunization; Moderate episode of recurrent major depressive disorder (HCC); Pancreatic cyst; Essential hypertension; Mixed hyperlipidemia; 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, 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) Start: 12-15-2023 End: 12-15-2023 Telephone encounter Christine Morgan APRN.CNP Work Phone: [facility] [place] Comment on above: Orders Start: 12-14-2023 End: 12-14-2023 Emergency department patient visit Benny Lilly Facility:[facility] Start: 12-13-2023 End: 12-13-2023 Emergency department patient visit Christine Morgan Facility:[facility] Start: 12-01-2023 End: 12-01-2023 ambulatory Jase Dumont RN Work Phone: [facility] Comment on above: community monitoring outreach (Monthly cdm call) Start: 11-27-2023 End: 11-30-2023 ambulatory [facility] [place] Comment on above: Medication Question Start: 11-27-2023 End: 11-30-2023 E-mail encounter from caregiver [facility] Provider [facility] Start: 11-25-2023 End: 11-26-2023 ambulatory Christine Morgan APRN.CNP Work Phone: [facility] [place] Comment on above: Proazac/fluoxitine Start: 11-23-2023 End: 11-23-2023 ambulatory Aminta Rodrigues RN Work Phone: [facility] Start: 11-03-2023 ambulatory Jase Dumont RN Work Phone: [facility] Comment on above: community monitoring outreach (Monthly cdm call) Start: 10-13-2023 End: 10-13-2023 Patient encounter procedure Juan Jose Keys DO Work Phone: Orthopaedics Comment on above: Pain of ulnar side o f wrist (Primary Dx) Start: 10-12-2023 E-mail encounter fro m caregiver [facility] Provider [address] [place] [address] Start: 10-12-2023 Patient encounter procedure [facility] Provider [address] [place] [address] Comment on above: Appointment Reschedu le Needed - 02/05/2024 Start: 10-12-2023 Telephone encounter Katerine ryder PHOTOGRAPHIC INTELLIGENCE OFFICER.CD REACTOR OPERATOR Work Phone: [facility] Comment on above: Results Start: 10-11-2023 End: 10-11-2023 Patient encounter procedure Katerine Rodas PHOTOGRAPHIC INTELLIGENCE OFFICER.CD REACTOR OPERATOR Work Phone: [facility] Comment on above: Fall, initial encoun ter (Primary Dx); Pain of right hip; Rib pain on right side Start: 10-11-2023 End: 10-11-2023 Subsequent hospital visit by physician [facility] Work Phone: [facility] Comment on above: Fall, initial encoun ter [W19.XXXA] Start: 10-09-2023 Refill Christine bashir APRN.CD REACTOR OPERATOR Work Phone: [facility] [place] Comment on above: Refill Request Start: 10-07-2023 Chart abstracting Eugenia palmer PHOTOGRAPHIC INTELLIGENCE OFFICER.CD REACTOR OPERATOR Work Phone: Colorectal Surgery Start: 10-06-2023 End: 10-09-2023 Patient encounter procedure Sindy Mcgregor MD Work Phone: Colorectal Surgery Comment on above: Anal sphincter incon tinence (Primary Dx); Pelvic pain Start: 10-05-2023 ambulatory Jase Dumont RN Work Phone: [facility] Comment on above: community monitoring outreach (Monthly cdm call) Start: 09-26-2023 Get Medical Advice Christine Morgan APRN.CD REACTOR OPERATOR Work Phone: Family [place] Comment on above: Refills Refill Request Start: 09-12-2023 End: 09-12-2023 Subsequent hospital visit by physician [facility] Work Phone: [facility] Comment on above: Contusion of fifth t oe [S90.129A] Start: 09-12-2023 End: 09-12-2023 Patient encounter procedure Gely Sandoval DO Work Phone: [facility] [place] Comment on above: Closed nondisplaced fracture of proximal phalanx of lesser toe of right foot, initial encounter (Primary Dx); Contusion of fifth toe Start: 09-08-2023 ambulatory Jase Dumont RN Work Phone: [facility] Comment on above: community monitoring outreach (Monthly cdm call) Start: 08-31-2023 ambulatory Delfin Kerr MD Work Phone: Orthopaedics Comment on above: Mri Start: 08-31-2023 Telephone encounter Marimar foster PHOTOGRAPHIC INTELLIGENCE OFFICER.CD REACTOR OPERATOR Work Phone: Endocrinology Comment on above: Patient Update (Lill y Cares application) Radiology MRI Start: 08-27-2023 Refill Christine Morgan PHOTOGRAPHIC INTELLIGENCE OFFICER.CD REACTOR OPERATOR Work Phone: [facility] Comment on above: Refill Request Start: 08-26-2023 Telephone encounter Marimar Hernández ioce PHOTOGRAPHIC INTELLIGENCE OFFICER.CD REACTOR OPERATOR Work Phone: Endocrinology Comment on above: Insurance Authorizat ion (Trulicity) Start: 08-26-2023 End: 08-26-2023 Patient encounter procedure Marimar Mccauleyoctoby PHOTOGRAPHIC INTELLIGENCE OFFICER.CD REACTOR OPERATOR Work Phone: Endocrinology Comment on above: Controlled type 2 di abetes 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, without long-term current use of insulin (HCC) (Primary Dx); Type 2 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 with stage 3 chronic kidney disease, without long-term current use of insulin, unspecified whether stage 3a or 3b CKD (HCC) Start: 08-24-2023 Telephone encounter Ann Coyne [facility] Comment on above: Fabric Transition of Care Start: 08-18-2023 ambulatory Lucy Schwartz RN Amb ulatory Care Management Comment on above: MAIDA TINAJERO RN ( E.D. Utilization Review per Payer Request.) Start: 08-16-2023 Orders Only Delfin Kerr MD Work Phone: Orthopaedics Comment on above: Right wrist pain (Pr imary Dx); Ulnar impaction syndrome, right Start: 08-15-2023 Admission to [facility] Sindy Mcgregor MD Work Phone: Colorectal Surgery Comment on above: Stim implant Start: 08-15-2023 ambulatory Sidny neil MD Work Phone: Colorectal Surgery Start: 08-13-2023 ambulatory Delfin Kerr MD Work Phone: Orthopaedics Comment on above: Wrist injection Start: 08-12-2023 ambulatory Nicole barroso PA-C Work Phone: Orthopaedics Comment on above: Wrist pain Start: 08-12-2023 End: 08-12-2023 Patient encounter procedure Ani Madrid APRN.CD REACTOR OPERATOR Work Phone: General Surgery Comment on above: S/P laparoscopy with lysis of adhesions (Primary Dx); Internal hernia; Hx SBO Start: 08-10-2023 ambulatory Christine Morgan APRN.CNP Work Phone: [facility] Comment on above: Uti Start: 08-10-2023 Telephone encounter Ann Coyne [facility] Comment on above: PostOp Follow-up Start: 08-05-2023 End: 08-05-2023 Office outpatient visit 25 minutes Christine Morgan APRN.CNP Work Phone: [facility] Comment on above: SBO (small bowel obs truction) (HCC) (Primary Dx); Acute cystitis without hematuria; Pancreatic cyst; Moderate episode of recurrent major depressive disorder (HCC); Type 2 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 with stage 3 chronic kidney disease, without long-term current use of insulin, unspecified whether stage 3a or 3b CKD (HCC) Start: 08-03-2023 ambulatory Patt L Plaso [facility] Start: 08-03-2023 Patient encounter procedure Patt L Plaso [facility] Comment on above: Transition Of Care ( TCM) Start: 08-03-2023 Telephone encounter Ann Coyne [facility] Comment on above: PostOp Follow-up Start: 07-29-2023 Telephone encounter Ann Coyne [facility] Comment on above: PostOp Follow-up Start: 07-26-2023 End: 07-28-2023 Evaluation and management of inpatient WESLY FARMER Facility:[facility] Start: 07-14-2023 ambulatory Jase Dumont RN Work Phone: [facility] Attendant Management Comment on above: community monitoring outreach (Monthly cdm call) Start: 07-07-2023 End: 07-07-2023 Patient encounter procedure Delfin Kerr MD Work Phone: Orthopaedics Comment on above: Pain of ulnar side o f wrist (Primary Dx) Start: 07-02-2023 ambulatory Christine Morgan APRN.CD REACTOR OPERATOR Work Phone: [facility] [place] Comment on above: Freestyle sensors Start: 07-02-2023 End: 07-02-2023 Patient encounter procedure Nicole Coronado PA-C Work Phone: Orthopaedics Comment on above: OPENED IN ERROR (Isaias maximino Dx) Start: 06-15-2023 ambulatory Jase Dumont RN Work Phone: [facility] Comment on above: community monitoring outreach (Monthly cdm call) Start: 06-14-2023 Refill Christine Morgan APRN.CD REACTOR OPERATOR Work Phone: [facility] [place] Comment on above: Refill Request Start: 05-20-2023 Telephone encounter Christine bradley APRN.CD REACTOR OPERATOR Work Phone: [facility] [place] Comment on above: CGM Start: 05-19-2023 ambulatory Jase Dumont RN Work Phone: [facility] Att[facility] Comment on above: community monitoring outreach (Monthly cdm call) Start: 05-01-2023 Telephone encounter Dao Caraballo MD Work Phone: [facility] [place] Comment on above: Results Start: 03-31-2023 End: 03-31-2023 Admission to same day surgery center RAFI EGAN MD [facility] Plastic Surgery Start: 03-11-2023 ambulatory Christine Morgan APRN.CD REACTOR OPERATOR Work Phone: Internal Medicine [facility] Start: 02-09-2023 End: 02-09-2023 Patient encounter procedure Nicole Lathamlonnie PA-C Work Phone: Orthopaedics Comment on above: Pain of ulnar side o f wrist (Primary Dx); 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 Start: 02-09-2023 End: 02-09-2023 Subsequent hospital visit by physician [facility] Mckeon Work Phone: Radiology Comment on above: Pain in right wrist [M25.531] Start: 02-04-2023 Orders Only Nicole Castrejonmellisa barroso PA-C Work Phone: Orthopaedics Comment on above: Pain in right wrist (Primary Dx) Start: 01-24-2023 ambulatory Rafi Fox APRN.CNP Work Phone: Orthopaedics Comment on above: Pregabalin Start: 01-21-2023 ambulatory Christine Morgan APRN.CNP Work Phone: [facility] Comment on above: Pepsid Start: 01-15-2023 End: 01-15-2023 ambulatory Erum Copeland PT, DPT [facility] [place] Comment on above: Acute pain of right knee (Primary Dx); Stiffness of right knee; Difficulty walking; Localized edema Start: 01-14-2023 ambulatory Jase Dumont RN Work Phone: [facility] Att[facility] Management Comment on above: community monitoring outreach (Bimonthly cdm call) Start: 01-11-2023 ambulatory Christine Morgan APRN.CNP Work Phone: [facility] Comment on above: Atorvastin Start: 01-08-2023 End: 01-08-2023 Patient encounter procedure Rafi Fox APRN.CNP Work Phone: Orthopaedics Comment on above: Stiffness of right k nee (Primary Dx); Status post right knee replacement Start: 01-05-2023 Refill Christine Morgan APRN.CNP Work Phone: [facility] Comment on above: Refill Request Start: 12-30-2022 ambulatory Jase Dumont RN Work Phone: [facility] Management Comment on above: communiyt monitoring outreach (Monthly cdm call) Refill Request Start: 12-30-2022 Telephone encounter Christine Santoyo mirna PHOTOGRAPHIC INTELLIGENCE OFFICER.CD REACTOR OPERATOR Work Phone: [facility] [place] Comment on above: Forms Start: 12-28-2022 ambulatory Christine Santoyoagen PHOTOGRAPHIC INTELLIGENCE OFFICER.CD REACTOR OPERATOR Work Phone: [facility] [place] Comment on above: Lisinopril Start: 12-22-2022 Telephone encounter Christine riverasandro PHOTOGRAPHIC INTELLIGENCE OFFICER.CD REACTOR OPERATOR Work Phone: [facility] [place] Comment on above: Forms Start: 12-19-2022 ambulatory Christine Morgan PHOTOGRAPHIC INTELLIGENCE OFFICER.CD REACTOR OPERATOR Work Phone: [facility] [place] Comment on above: Glimeperide Start: 12-04-2022 Telephone encounter Christine Santoyo mirna PHOTOGRAPHIC INTELLIGENCE OFFICER.CD REACTOR OPERATOR Work Phone: [facility] [place] Comment on above: OT Plan of Care Start: 12-02-2022 Telephone encounter Christine riverasandro PHOTOGRAPHIC INTELLIGENCE OFFICER.CD REACTOR OPERATOR Work Phone: Internal Medicine [place] Comment on above: Orders Start: 12-02-2022 End: 12-02-2022 Subsequent hospital visit by physician Radio General Jacki Mckeon Work Phone: Radiology Comment on above: Chronic pain of righ t knee [M25.561, G89.29] Start: 11-28-2022 End: 12-01-2022 Evaluation and management of inpatient VIVIANE JOHNSON MD [facility] Start: 11-27-2022 End: 11-28-2022 Emergency department patient visit DR SEKOU WALKER MD [facility] Start: 11-26-2022 End: 11-26-2022 SAME DAY STAY RAFI EGAN MD [facility] Start: 11-25-2022 End: 11-25-2022 ambulatory Radha M Jaramillo BIZTALK CONSULTANT [facility] [place] Comment on above: Acute pain of right knee (Primary Dx); Stiffness of right knee; Difficulty walking; Localized edema Start: 11-21-2022 End: 11-21-2022 ambulatory Radha Méndez Physical [facility] [place] Comment on above: Acute pain of right knee (Primary Dx); Stiffness of right knee; Difficulty walking; Localized edema Start: 11-19-2022 End: 11-19-2022 ambulatory Erum Copeland PT, DPT [facility] [place] Comment on above: Acute pain of right knee (Primary Dx); Stiffness of right knee; Difficulty walking; Localized edema Start: 11-17-2022 End: 11-17-2022 Preoperative state Christine Morgan APRN.CD REACTOR OPERATOR Work Phone: [facility] Work Phone: Start: 11-17-2022 End: 11-17-2022 Patient encounter procedure Christine Morgan APRN.CD REACTOR OPERATOR Work Phone: [facility] Comment on above: Preoperative clearan ce (Primary Dx); Excessive skin and subcutaneous tissue Chronic pain of righ t knee (Primary Dx) Start: 11-13-2022 End: 11-13-2022 ambulatory Radha Jaramillo PTA [facility] [place] Comment on above: Acute pain of right knee (Primary Dx); Stiffness of right knee; Difficulty walking; Localized edema Start: 11-12-2022 End: 11-12-2022 ambulatory Nurse Intm/Famp Triage [facility] Work Phone: Nurse Phone Triage Comment on above: Dizziness Nurse Triage Call Pain in surgical rt knee Start: 11-12-2022 End: 11-12-2022 Admission to establishment RAFI EGAN MD [facility] Start: 11-03-2022 ambulatory Jase Dumont RN Work Phone: [facility] Comment on above: community monitoring outreach (Monthly cdm call) Start: 10-30-2022 End: 10-30-2022 Patient encounter procedure Donavon Patricia MD Work Phone: Orthopaedics Comment on above: S/P total knee arthr oplasty, right (Primary Dx) Start: 10-28-2022 End: 10-28-2022 ambulatory Radha Dozier [facility] Comment on above: Acute pain of right knee (Primary Dx); Stiffness of right knee; Difficulty walking; Localized edema Start: 10-22-2022 End: 10-22-2022 ambulatory Radha Dozier Ella MARQUIS [facility] Comment on above: Acute pain of right knee (Primary Dx); Stiffness of right knee; Difficulty walking; Localized edema Start: 10-16-2022 Telephone encounter Donavon reddy MD Work Phone: Orthopaedics Comment on above: Patient Question Start: 10-08-2022 End: 10-08-2022 ambulatory Erum Copeland PT [facility] Comment on above: Acute pain of right knee (Primary Dx); Stiffness of right knee; Difficulty walking; Localized edema community monitoring outreach (Monthly cdm call) Start: 10-02-2022 End: 10-02-2022 Home visit Saniya Martínez PT Work Phone: [facility] Comment on above: PT AGENCY DC W VISIT Start: 09-30-2022 End: 09-30-2022 Patient encounter procedure Rafi Fox APRN.CD REACTOR OPERATOR Work Phone: Orthopaedics Comment on above: S/P total knee arthr oplasty, right Start: 09-30-2022 End: 09-30-2022 Subsequent hospital visit by physician Radio General Jacki Mckeon Work Phone: Radiology Comment on above: Chronic pain of righ t knee [M25.561, G89.29] Start: 09-29-2022 Telephone encounter Saniya Martínez PT Work Phone: [facility] Comment on above: Home Care (OP PT ord ers) Patient Update Start: 09-29-2022 End: 09-29-2022 Home visit Saniya Martínez PT Work Phone: [facility] Comment on above: PT ROUTINE Start: 09-27-2022 End: 09-27-2022 Home visit Mary Jane Montgomery BIZTALK CONSULTANT Work Phone: [facility] Comment on above: BIZTALK CONSULTANT ROUTINE Start: 09-26-2022 End: 09-26-2022 Orders Only Rafi Grater PHOTOGRAPHIC INTELLIGENCE OFFICER.CD REACTOR OPERATOR Work Phone: Orthopaedics Comment on above: PT UNMADE VISIT Patient Update Right calf pain [M79 .661] Start: 09-25-2022 Orders Only Rafi Grater PHOTOGRAPHIC INTELLIGENCE OFFICER.CD REACTOR OPERATOR Work Phone: Orthopaedics Comment on above: Chronic pain of righ t knee (Primary Dx) Start: 09-24-2022 End: 09-24-2022 Home visit Saniya Martínez PT Work Phone: [facility] Comment on above: PT ROUTINE Start: 09-22-2022 End: 09-22-2022 Home visit King Byrd PT Work Phone: [facility] Comment on above: PT ROUTINE Start: 09-20-2022 End: 09-20-2022 Home visit Mari Vlad BIZTALK CONSULTANT Work Phone: [facility] Comment on above: BIZTALK CONSULTANT ROUTINE Start: 09-19-2022 End: 09-19-2022 Home visit Bertin Dickinson RN Work Phone: [facility] Comment on above: CARE COORDINATION Start: 09-18-2022 End: 09-18-2022 Home visit Rangel Barajas PT Work Phone: [facility] Comment on above: PT SOC Start: 09-16-2022 Telephone encounter Radha MEADOWS S [facility] Comment on above: Home Care (Confirmat ion call) Start: 08-21-2022 Telephone encounter Donavon reddy MD Work Phone: [address] Comment on above: Pre-Op Teaching Start: 08-19-2022 ambulatory Bere Ferrer RN Work Phone: [facility] Management Comment on above: cdm (enrollment) Start: 08-19-2022 End: 08-19-2022 Subsequent hospital visit by physician [facility] Radiology Comment on above: History of partial k nee replacement [Z96.659] Start: 07-31-2022 End: 07-31-2022 Home visit Saniya Martínez PT Work Phone: [facility] Comment on above: PT AGENCY DC W VISIT Start: 07-30-2022 Telephone encounter Christine bradley APRN.CD REACTOR OPERATOR Work Phone: [facility] Comment on above: Results Start: 07-29-2022 End: 07-29-2022 Office outpatient visit 25 minutes Christine Morgan APRN.CD REACTOR OPERATOR Work Phone: [facility] [place] Comment on above: Type 2 diabetes eileen itus with stage 3 chronic kidney disease, without long-term current use of insulin, unspecified whether stage 3a or 3b CKD (HCC) (Primary Dx); Anemia, unspecified type; Hyponatremia; Mixed hyperlipidemia; Hypothyroidism, unspecified type; Gastroesophageal reflux disease, unspecified whether esophagitis present; Moderate episode of recurrent major depressive disorder (HCC); Hypertensive kidney disease with stage 3a chronic kidney disease (HCC) Start: 07-28-2022 End: 07-28-2022 Home visit Esperanza Basurto BIZTALK CONSULTANT Work Phone: [facility] Comment on above: BIZTALK CONSULTANT ROUTINE Start: 07-24-2022 End: 07-24-2022 Home visit Esperanza Basurto BIZTALK CONSULTANT Work Phone: [facility] Comment on above: BIZTALK CONSULTANT ROUTINE Start: 07-22-2022 End: 07-22-2022 Patient encounter procedure Rafi Fox PHOTOGRAPHIC INTELLIGENCE OFFICER.CD REACTOR OPERATOR Work Phone: Orthopaedics Comment on above: Status post right hi p replacement (Primary Dx) Start: 07-22-2022 End: 07-22-2022 Subsequent hospital visit by physician Radio General Echeverria [facility] Work Phone: Radiology Comment on above: Pain in right hip [M 25.551] Start: 07-21-2022 End: 07-21-2022 Home visit Esperanza Basurto BIZTALK CONSULTANT Work Phone: [facility] Comment on above: BIZTALK CONSULTANT ROUTINE Start: 07-17-2022 End: 07-17-2022 Home visit Esperanza Basurto BIZTALK CONSULTANT Work Phone: [facility] Comment on above: BIZTALK CONSULTANT ROUTINE Start: 07-14-2022 End: 07-14-2022 Home visit Esperanza Basurto BIZTALK CONSULTANT Work Phone: [facility] Comment on above: BIZTALK CONSULTANT ROUTINE Pain in right hip (P rimary Dx) Start: 07-14-2022 Telephone encounter Esperanza Hough on BIZTALK CONSULTANT Work Phone: [facility] Comment on above: Home Care (Bandage r emoval) Start: 07-11-2022 Telephone encounter Saniya Martínez PT Work Phone: [facility] Comment on above: Home Care (Medicatio n interaction) Start: 07-11-2022 End: 07-11-2022 Home visit Saniya Martínez PT Work Phone: [facility] Comment on above: PT SOC Start: 06-24-2022 End: 06-24-2022 PAT Pacc [place] 1 Virtual 2 Pre Anesthesia Comment on above: Preoperative examina tion (Primary Dx); 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, 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); Essential hypertension; Mixed hyperlipidemia; Mild intermittent asthma 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; MARIBEL (obstructive sleep apnea); Irritable bowel syndrome with diarrhea; GERD without esophagitis; S/P gastric bypass; Stage 3 chronic kidney disease, unspecified whether stage 3a or 3b CKD (HCC); Renal lesion; Hypothyroidism, unspecified type; Moderate episode of recurrent major depressive disorder (HCC) Start: 06-24-2022 End: 06-24-2022 Preprocedural examination done Pacc 2 Pre Anesthesia Start: 06-21-2022 Admission to [facility] Donavon Patricia MD Work Phone: Orthopaedics Comment on above: Rescheduled surgery Start: 06-21-2022 ambulatory Donavon Coyne Work Phone: [facility] Start: 06-17-2022 End: 06-17-2022 Subsequent hospital visit by physician [facility] Radiology Comment on above: Presence of right ar tificial hip joint [Z96.641] Start: 06-12-2022 Telephone encounter Donavon reddy MD Work Phone: Orthopaedics Comment on above: Orders; Appointment Start: 06-09-2022 End: 06-09-2022 Subsequent hospital visit by physician Xr [facility] Work Phone: Radiology Comment on above: Fall, initial encoun ter [W19.XXXA] Start: 06-09-2022 End: 06-09-2022 Patient encounter procedure Willow Resendiz PHOTOGRAPHIC INTELLIGENCE OFFICER.CD REACTOR OPERATOR Work Phone: [facility] Comment on above: Fall, initial encoun ter (Primary Dx) Start: 06-05-2022 Telephone encounter Ananya MORILLO Navigation Comment on above: Patient Assistance Start: 05-29-2022 End: 05-29-2022 [place] [id number] Work Phone: Pre Anesthesia Comment on above: Preoperative examina tion (Primary Dx); Essential hypertension; Mixed hyperlipidemia; MARIBEL (obstructive sleep apnea); Mild intermittent asthma 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; GERD without esophagitis; S/P gastric bypass; Stage 3 chronic kidney disease, unspecified whether stage 3a or 3b CKD (HCC); Hypothyroidism, unspecified type; Type 2 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 with stage 3 chronic kidney disease, without long-term current use of insulin, unspecified whether stage 3a or 3b CKD (HCC); Moderate episode of recurrent major depressive disorder (HCC) Start: 05-29-2022 End: 05-29-2022 Preprocedural examination done [facility] 2 Work Phone: Pre Anesthesia Start: 05-29-2022 End: 05-29-2022 Subsequent hospital visit by physician [facility] Radiology Comment on above: Presence of right ar tificial hip joint [Z96.641] Start: 05-27-2022 Telephone encounter Ananya Goodman Comment on above: Patient Assistance Start: 05-20-2022 Telephone encounter Donavon reddy MD Work Phone: [address] Comment on above: Pre-Op Teaching Start: 05-14-2022 Admission to [facility] surgery center Donavon Patricia MD Work Phone: Orthopaedics Comment on above: Knee surgery 06/20/22 Start: 05-14-2022 ambulatory Donavon Coyne Work Phone: [facility] Start: 05-12-2022 End: 05-12-2022 Admission to [facility] Work Phone: [facility] Start: 05-12-2022 End: 05-12-2022 Preprocedural examination done Pacc [facility] 1 Work Phone: Pre Anesthesia Start: 05-12-2022 End: 05-12-2022 ambulatory [address] 1 Work Phone: Pre Anesthesia Comment on above: Preop examination (P rimary Dx); Essential hypertension; MARIBEL (obstructive sleep apnea); Mild intermittent asthma 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; Hypothyroidism, unspecified type; Type 2 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 with stage 3 chronic kidney disease, without long-term current use of insulin, unspecified whether stage 3a or 3b CKD (HCC); Stage 3 chronic kidney disease, unspecified whether stage 3a or 3b CKD (HCC) [facility] applicat ion for 2022 Start: 05-12-2022 Telephone encounter Sindy sam MD Work Phone: Colorectal Surgery Comment on above: Chaperon - O ther Patient Assistance Start: 05-02-2022 Telephone encounter Estela escobar APRN.CNP Work Phone: Pre Anesthesia Comment on above: No Show Start: 04-23-2022 Orders Only Donavon Coyne Work Phone: Orthopaedics Comment on above: Chronic pain of righ t knee (Primary Dx); History of partial knee replacement Start: 04-22-2022 End: 04-22-2022 Subsequent hospital visit by physician Radio General Jacki Mckeon Work Phone: Radiology Comment on above: Hip fracture requiri ng operative repair, right, closed, initial encounter ([facility]) [S72.001A] Start: 04-22-2022 End: 04-22-2022 Patient encounter procedure Donavon Patricia MD Work Phone: Orthopaedics Comment on above: Hip fracture requiri ng operative repair, right, closed, initial encounter (HCC) (Primary Dx); History of partial knee replacement Start: 04-22-2022 Telephone encounter Christine bradley APRN.CD REACTOR OPERATOR Work Phone: [facility] Comment on above: Forms Start: 04-17-2022 ambulatory Christine Morgan APRN.CD REACTOR OPERATOR Work Phone: [facility] [place] Comment on above: Iron deficiency Start: 04-15-2022 End: 04-15-2022 ambulatory Dionna Fong PA-C Work Phone: General Surgery Comment on above: History of colonic p olyps (Primary Dx); GERD without esophagitis Start: 04-15-2022 End: 04-15-2022 Telemedicine consultation with patient Dionna Fong PA-C Work Phone: [facility] Start: 04-10-2022 Refill Christine Morgan APRN.CD REACTOR OPERATOR Work Phone: [facility] Comment on above: Refill Request Start: 04-02-2022 End: 04-02-2022 Subsequent hospital visit by physician Keke Toscano MD Work Phone: Ambulatory Surgery Comment on above: History of anemia [Z 86.2] Start: 03-21-2022 End: 03-21-2022 Subsequent hospital visit by physician [facility] [place] Work Phone: Radiology Comment on above: Acute cough [R05.1] Start: 03-21-2022 End: 03-21-2022 Patient encounter procedure Willow Resendiz APRN.CD REACTOR OPERATOR Work Phone: [place] [facility] Comment on above: Acute cough (Primary Dx) Start: 03-19-2022 End: 03-19-2022 Subsequent hospital visit by physician Diagnostic Mammo [facility] Mammogram Start: 02-27-2022 ambulatory Sindy neil MD Work Phone: Colorectal Surgery Start: 02-25-2022 End: 02-25-2022 Patient encounter procedure Sindy Mcgregor MD Work Phone: Colorectal Surgery Comment on above: Anal sphincter incon tinence (Primary Dx); H/O gastric bypass Start: 02-19-2022 Telephone encounter Christine bradley APRN.CNP Work Phone: [facility] [place] Comment on above: Forms Start: 02-18-2022 Telephone encounter Ananya Goodman Comment on above: Patient Assistance Start: 02-12-2022 Telephone encounter Dionna flores PA-C Work Phone: General Surgery Comment on above: 04/02/22 EGD and [facility] noscopy Dr. Toscano Start: 02-12-2022 End: 02-12-2022 Patient encounter procedure Dionna Fong PA-C Work Phone: General Surgery Comment on above: History of anemia (P rimary Dx); Screening for colon cancer; History of gastritis; Anal sphincter incontinence Start: 02-11-2022 Refill Christine Morgan APRN.CNP Work Phone: [facility] [place] Comment on above: Refill Request Start: 02-07-2022 Telephone encounter Christine bradley APRN.CNP Work Phone: [facility] Comment on above: Order Request Start: 02-05-2022 Documentation procedure Mammography Coordinator [facility] [facility] Start: 02-05-2022 Letter encounter Mammography Coordin ator [facility] Department Start: 02-05-2022 End: 02-05-2022 Subsequent hospital visit by physician Screen Mammo [facility] Comment on above: Encounter for screen ing mammogram for breast cancer [Z12.31] Start: 01-29-2022 End: 01-29-2022 Office outpatient visit 25 minutes Christine Morgan APRN.CNP Work Phone: [facility] Comment on above: Type 2 diabetes eileen itus with stage 3 chronic kidney disease, without long-term current use of insulin, unspecified whether stage 3a or 3b CKD (HCC) (Primary Dx); Skin lesion; Encounter for immunization; Anemia, unspecified type; Hyponatremia; Hypothyroidism, unspecified type; Mixed hyperlipidemia; Encounter for screening mammogram for breast cancer; Screening for colon cancer; Intertrigo Start: 01-02-2022 End: 01-02-2022 Patient encounter procedure Kaylen Lindsey DO Work Phone: Orthopaedics Comment on above: Closed displaced fra cture of right femoral neck (HCC) (Primary Dx); Hip fracture requiring operative repair, right, closed, initial encounter (HCC) Start: 01-02-2022 End: 01-02-2022 Subsequent hospital visit by physician Armen [facility] Mckeon Work Phone: Radiology Comment on above: Hip fracture requiri ng operative repair, right, closed, initial encounter (HCC) [S72.001A] Start: 12-20-2021 ambulatory Donavon Coyne Work Phone: Orthopaedics Comment on above: Knee brace. Start: 12-20-2021 Telephone encounter Kaylen Lindsey DO Work Phone: Orthopaedics Comment on above: Patient Question Start: 12-19-2021 End: 12-19-2021 Patient encounter procedure Donavon Patricia MD Work Phone: Orthopaedics Comment on above: History of partial k nee replacement (Primary Dx) Start: 12-19-2021 End: 03-23-[address] KAYLEN LINDSEY DO Facility:B Start: 12-17-2021 ambulatory Homa Douglas RN Work Phone: [employer] Start: 12-17-2021 Follow-up encounter Homa Douglas RN Work Phone: [employer] Comment on above: Transition Of Care ( TCM Follow Up/) Start: 12-16-2021 Telephone encounter Donavon reddy MD Work Phone: Orthopaedics Comment on above: Appointment Start: 12-11-2021 ambulatory Homa Douglas RN Work Phone: [facility] Start: 12-11-2021 Follow-up encounter Homa Douglas RN Work Phone: [employer] Comment on above: Transition Of Care ( TCM Follow Up/) Start: 12-09-2021 ambulatory Kaylen sigala DO Work Phone: [facility] Start: 12-09-2021 Patient encounter procedure Kaylen Lindsey DO Work Phone: Orthopaedics Comment on above: Consult to your charmaine eague regarding your recommendation Start: 12-07-2021 ambulatory Delfin Kerr MD Work Phone: Orthopaedics Comment on above: Knee pain Start: 12-05-2021 End: 12-05-2021 Home visit Saniya Martínez PT Work Phone: [facility] Comment on above: PT AGENCY DC W VISIT Start: 12-04-2021 End: 12-04-2021 Patient encounter procedure Kaylen Lindsey DO Work Phone: Orthopaedics Comment on above: Chronic pain of righ t knee (Primary Dx); Hip fracture requiring operative repair, right, closed, initial encounter (HCC); Closed displaced fracture of right femoral neck (HCC) Start: 12-04-2021 End: 12-04-2021 Subsequent hospital visit by physician [facility] Jacki Mckeon Work Phone: Radiology Comment on above: Pain [R52] Start: 12-03-2021 End: 12-03-2021 Home visit sEperanza Basurto BIZTALK CONSULTANT Work Phone: [facility] Comment on above: BIZTALK CONSULTANT ROUTINE Start: 12-03-2021 ambulatory Homa Douglas RN Work Phone: [facility] Start: 12-03-2021 Follow-up encounter Homa Douglas RN Work Phone: [employer] Comment on above: Transition Of Care ( TCM Follow Up/) Start: 11-28-2021 End: 11-28-2021 Home visit Esperanza Basurto BIZTALK CONSULTANT Work Phone: [facility] Comment on above: BIZTALK CONSULTANT ROUTINE Start: 11-27-2021 End: 11-27-2021 ambulatory Christine Morgan APRN.CD REACTOR OPERATOR Work Phone: [facility] Comment on above: Hip fracture requiri ng operative repair, right, sequela (Primary Dx); Anemia, unspecified type; Hyponatremia Start: 11-27-2021 End: 11-27-2021 Telemedicine consultation with patient Christine Morgan APRN.CD REACTOR OPERATOR Work Phone: [facility] Start: 11-26-2021 End: 11-26-2021 Home visit Saniya Martínez PT Work Phone: [facility] Comment on above: PT ROUTINE Start: 11-24-2021 Telephone encounter Saniya Martínez PT Work Phone: [facility] Comment on above: Home Care Start: 11-22-2021 Telephone encounter Uzma latham PT Work Phone: [facility] Comment on above: Home Care (PT SOC-ne eds follow-up) Start: 11-21-2021 End: 11-21-2021 Home visit Uzma Boyer PT Work Phone: [facility] Comment on above: PT SOC Start: 11-20-2021 Patient Outreach Homa Douglas RN Work Phone: [employer] Comment on above: Transition Of Care ( TCM Initial Hospital Discharge 11/19/2021) Transition Of Care ( TCM Pharmacy-Hospital discharge 11/19/21) Start: 11-18-2021 Telephone encounter Dania Merida PSS [facility] Comment on above: Home Care Arrangemen ts (Request for physician to follow for home care) Home Care (CONFIRMAT ION CALL) Orders Start: 11-17-2021 ambulatory Halle Vences RT(R) Rad iology Comment on above: Radio Gen RMP Start: 11-17-2021 Patient encounter procedure Halle Vences RT(R) [facility] Start: 10-23-2021 End: 10-23-2021 Patient encounter procedure Ham Wu MD Work Phone: [facility] Comment on above: Acute muscle stiffne ss of neck (Primary Dx) Start: 10-17-2021 End: 10-17-2021 Subsequent hospital visit by physician Armen [facility] Mob Work Phone: Radiology Comment on above: Ann Hand Start: 10-17-2021 End: 10-17-2021 Patient encounter procedure Delfin Kerr MD Work Phone: Orthopaedics Comment on above: Chronic pain of righ t knee (Primary Dx); Other secondary osteoarthritis of both hands; Pain of right hand; Pain of left hand Start: 10-11-2021 End: 10-11-2021 Office outpatient visit 15 minutes Christine Morgan APRN.CD REACTOR OPERATOR Work Phone: Family Medicine [facility] Comment on above: Intertrigo (Primary Dx); Generalized postprandial abdominal pain; Other specified hypothyroidism; Moderate episode of recurrent major depressive disorder (HCC) Start: 09-06-2021 Telephone encounter Delfin ren MD Work Phone: [facility] Comment on above: appointment prep Start: 08-05-2021 Telephone encounter Christine bradley APRN.CD REACTOR OPERATOR Work Phone: [facility] Comment on above: Results Start: 08-01-2021 End: 08-01-2021 Subsequent hospital visit by physician [facility] Work Phone: Radiology Comment on above: Elevated liver enzym es [R74.8] Start: 07-30-2021 Telephone encounter Christine bradley APRN.CD REACTOR OPERATOR Work Phone: [facility] Comment on above: Results Start: 07-29-2021 End: 07-29-2021 Patient encounter procedure Christine Morgan APRN.CD REACTOR OPERATOR Work Phone: [facility] Comment on above: Essential hypertensi on (Primary Dx); Type 2 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 with stage 3 chronic kidney disease, without long-term current use of insulin, unspecified whether stage 3a or 3b CKD (HCC); Hypothyroidism, unspecified type; Mixed hyperlipidemia; Pain of finger of left hand; Cracked lips; Gastroesophageal reflux disease, unspecified whether esophagitis present; Anemia, unspecified type; Chronic right-sided low back pain without sciatica Start: 02-04-2021 End: 02-04-2021 Subsequent hospital visit by physician Armen [facility] Work Phone: Radiology Comment on above: Rib pain on left karen e [R07.81] Start: 03-03-2018 Patient encounter procedure Alpa Ferraro Facility:[facility] Start: 03-03-2018 Patient encounter procedure ASPEN DELGADO Facility:[id number] Start: 12-02-2017 Patient encounter procedure ASPEN DELGADO Facility:[id number] Start: 11-06-2017 Patient encounter Aspen talbert Facility[facility] Start: 10-28-2017 End: 10-28-2017 Patient encounter procedure ASPEN DELGADO Facility:[facility] Start: 09-30-2017 Patient encounter procedure ASPEN DELGADO Facility:[id number] Procedures Date Procedure Procedure Detail Performing Clinician Start: 10-20-2024 Ct head/brain w/o & w/contrast material Snow Stratton MD Work Phone: Start: 08-03-2024 Screening digital breast tomosynthesis bi Bulk Order Provider Start: 04-14-2024 End: 04-14-2024 Arthrocentesis aspir&/inj interm jt/burs w/us Juan Jose Keys DO Work Phone: Start: 03-29-2024 Arthrocentesis aspir&/inj major jt/bursa w/o us Delfin Kerr MD Work Phone: Start: 03-29-2024 Radex shoulder complete minimum 2 views Delfin Kerr MD Work Phone: Start: 01-15-2024 [employer] COVID-19 VACCINE AGE 12+ YR (COMIRNATY) Christine Morgan PHOTOGRAPHIC INTELLIGENCE OFFICER.CD REACTOR OPERATOR Work Phone: Start: 10-13-2023 End: 10-13-2023 Arthrocentesis aspir&/inj interm jt/burs w/us Juan Jose Keys DO Work Phone: Start: 10-11-2023 Radex hip unilateral with pelvis 2-3 views Katerine Rodas PHOTOGRAPHIC INTELLIGENCE OFFICER.CD REACTOR OPERATOR Work Phone: Start: 09-12-2023 Radex toe minimum 2 views Gely Jones hn DO Work Phone: Start: 08-05-2023 Urnls dip stick/tablet reagent auto microscopy Chrsitine Morgan PHOTOGRAPHIC INTELLIGENCE OFFICER.CD REACTOR OPERATOR Work Phone: Start: 07-26-2023 Antibody screen [employer] Comment on above: Order Comment: Specimen Type: BLOOD SPEC IMENOrdering Facility: [facility] Address: [address] [place] [address] Performed By: #### T SCR ####MALINDA BLOOD BANKCLIA [id number] [address] [place] Start: 07-07-2023 Arthrocentesis aspir&/inj interm jt/burs w/o us Delfin Kerr MD Work Phone: Start: 02-09-2023 Arthrocentesis aspir&/inj interm jt/burs w/o us Nicole Coronado PA-C Work Phone: Start: 12-02-2022 Radiologic examination knee 3 views Rafi Fox APRN.CD REACTOR OPERATOR Work Phone: Start: 09-30-2022 Radiologic examination knee 3 views Rafi Fox APRN.CD REACTOR OPERATOR Work Phone: Start: 09-26-2022 Dup-scan xtr veins unilateral/limited study Rafi Fox APRN.CD REACTOR OPERATOR Work Phone: Start: 08-21-2022 Arthroplasty of knee RAFI EGAN MD Start: 08-19-2022 Ct lower extremity w/o contrast material Donavon Patricia MD Work Phone: Start: 07-22-2022 Radex hip unilateral with pelvis 2-3 views Rafi Fox APRN.CD REACTOR OPERATOR Work Phone: Start: 06-21-2022 Insertion of hip prosthesis RAFI Barroso MD Start: 06-17-2022 Ct lower extremity w/o contrast material Rafi Fox APRN.CD REACTOR OPERATOR Work Phone: Start: 06-09-2022 Radex shoulder complete minimum 2 views Willow Resendiz APRN.CD REACTOR OPERATOR Work Phone: Start: 05-29-2022 Antibody screen Pacc 2 Work Phone: Start: 05-29-2022 Ct lower extremity w/o contrast material Rafi Fox PHOTOGRAPHIC INTELLIGENCE OFFICER.CD REACTOR OPERATOR Work Phone: Start: 04-22-2022 Radex hip unilateral with pelvis 2-3 views Donavon Patricia MD Work Phone: Start: 04-02-2022 Colonoscopy flx dx w/collj spec when pfrmd Christine Morgan PHOTOGRAPHIC INTELLIGENCE OFFICER.CD REACTOR OPERATOR Work Phone: Start: 04-02-2022 Esophagogastroduodenoscopy transoral diagnostic Dionna Fong PA-C Work Phone: Start: 04-02-2022 Level iv surg pathology gross&microscopic exam Keke Toscano MD Work Phone: Start: 04-02-2022 Colonoscopy Christine Morgan PHOTOGRAPHIC INTELLIGENCE OFFICER.CD REACTOR OPERATOR Work Phone: Start: 03-23-2022 Colonoscopy RAFI EGAN MD Start: 03-23-2022 Esophagogastroduodenoscopy and closure of duodenal fistula RAFI EGAN MD Start: 03-21-2022 Radiologic exam chest 2 views Willow Resendiz PHOTOGRAPHIC INTELLIGENCE OFFICER.CD REACTOR OPERATOR Work Phone: Start: 03-19-2022 TONY DIAG W PELON LEFT Christine Morgan PHOTOGRAPHIC INTELLIGENCE OFFICER.CD REACTOR OPERATOR Work Phone: Start: 02-05-2022 End: 02-05-2022 Mammography Christine Morgan PHOTOGRAPHIC INTELLIGENCE OFFICER.CD REACTOR OPERATOR Work Phone: Start: 01-29-2022 [employer] COVID-19 BIVALENT BOOSTER VACCINE, AGE 12+ YR Christine Morgan PHOTOGRAPHIC INTELLIGENCE OFFICER.CD REACTOR OPERATOR Work Phone: Start: 01-29-2022 INFLUENZA SEASONAL QUADRIVALENT HIGH DOSE AGE 65+ Christine Morgan PHOTOGRAPHIC INTELLIGENCE OFFICER.CD REACTOR OPERATOR Work Phone: Start: 12-04-2021 Radiologic exam knee complete 4/more views Kaylen Lindsey DO Work Phone: Start: 12-04-2021 Radex hip unilateral with pelvis 2-3 views Kaylen Lindsey DO Work Phone: Start: 10-17-2021 Radiologic exam knee complete 4/more views Delfin Kerr MD Work Phone: Start: 08-01-2021 Us abdominal real time w/image limited Christine Morgan PHOTOGRAPHIC INTELLIGENCE OFFICER.CD REACTOR OPERATOR Work Phone: Start: 02-04-2021 Radex ribs uni w/posteroant ch minimum 3 views Jada Patrick PA-C Work Phone: Start: 01-14-2021 Mammography Christine Morgan PHOTOGRAPHIC INTELLIGENCE OFFICER.CD REACTOR OPERATOR Work Phone: Start: 03-23-2018 Bypass of stomach RAFI EGAN MD Start: 10-28-2017 Anes arthrs/endscpy dstl radius ulna/wrist/hand ASPEN DELGADO Start: 10-28-2017 Arthrodesis interphalangeal jt w/wo int fixj ASPEN DELGADO Start: 10-28-2017 Arthrp mtcarphlngl jt w/prostc implt ea jt ASPEN DELGADO Start: 11-05-2016 Colonoscopy Christine Morgan PHOTOGRAPHIC INTELLIGENCE OFFICER.CD REACTOR OPERATOR Work Phone: Start: 03-23-2012 Total knee replacement RAFI EGAN MD Comment on above: left Start: 03-23-2010 Open reduction of fracture with internal fixation RAFI EGAN MD Comment on above: left Start: 03-23-1989 Hysterectomy RAFI EGAN MD Finger structure (body structure) RAFI EGAN MD Comment on above: pins in first two fingers both hands History of operative procedure on knee History of partial knee replacement Donavon Patricia MD Work Phone: History of operative procedure on knee History of partial knee replacement Donavon Patricia MD Work Phone: History of operative procedure on knee History of partial knee replacement Donavon Patricia MD Work Phone: History of operative procedure on knee History of partial knee replacement Ct Hospital Plan of Treatment Date Care Activity Detail Author Start: 02-19-2028 Urine microalbumin profile [facility] Start: 04-02-2027 Colonoscopy COLONOSCOPY [facility] Start: 04-02-2027 COLORECTAL CANCER SCREENING COLORECTAL CANCER SCREENING [facility] Start: 04-02-2027 Screening for malign ant neoplasm of colon [facility] Start: 09-21-2025 Annual PCP Team Ice Seller kapil Disease Visit Annual PCP Team Chronic Disease Visit [facility] Start: 09-21-2025 Complete blood count Hemoglobin/Param tocrit [facility] Start: 09-21-2025 Creatinine measurement Serum Creatin ine [facility] Start: 09-21-2025 Hepatitis B surface antibody level LDL Cholesterol [facility] Start: 08-03-2025 Screening for malign ant neoplasm of breast Mammogram Screening [facility] Start: 05-04-2025 End: 05-04-2025 Patient encounter procedure 05/04/2025 11:40 AM EST Appointment RADIO [facility] [address] [place], [place] [id number] Pancreas cyst (HCC) [K86.2] [facility]IO [facility] Comment on above: Pancreas cyst (HCC) [K86.2] Start: 03-28-2025 End: 03-28-2025 Patient encounter procedure 03/28/2025 1:00 PM EST Office Visit Family [facility] [address] [address] [place] [id number] Christine Morgan APRN.CD REACTOR OPERATOR [address] [place], [place] [address] annual Family Medicine [facility] Comment on above: annual Start: 2025 Hemoglobin A1c measurement HbA1C [facility] Start: 01-14-2025 Annual PCP Team Ice Seller kapil Disease Visit Annual PCP Team Chronic Disease Visit [facility] Start: 01-14-2025 Creatinine measurement Serum Creatin ine [facility] Start: 01-14-2025 Hepatitis B screening Urine Albumin:Creatinine Ratio [facility] Start: 01-14-2025 Hepatitis B surface antibody level LDL Cholesterol [facility] Start: 12-28-2024 End: 12-28-2024 Patient encounter procedure 12/28/2024 11:30 AM EDT Office Visit Geriatrics [address] [place] [address] Snow Stratton MD [address] [place] [address] 1 month follow up Geriatrics Comment on above: 1 month follow up Start: 12-27-2024 Creatinine measurement Serum Creatin ine [facility] Start: 12-15-2024 End: 12-15-2024 Patient encounter procedure 12/15/2024 1:45 PM EDT Office Visit [facility] [address] [place] [address] Ish Higgins MD [address] [place] [address] PO 12/06 RT DISTAL ULNA RESECTION; RT EXTENSOR TENDON TRANSFER [facility] Comment on above: PO 12/06 RT DISTAL UL NA RESECTION; RT EXTENSOR TENDON TRANSFER Start: 12-14-2024 Annual PCP Team Ice Seller kapil Disease Visit Annual PCP Team Chronic Disease Visit [facility] Start: 12-06-2024 End: 12-06-2024 Admission to same day surgery center 12/06/2024 8:40 AM EDT - 12/06/2024 11:15 AM EDT Surgery [facility] [address] [place] [address] Ish Higgins MD [address] [place] [id number] EXCISION DISTAL ULNA, RIGHT [facility] Comment on above: EXCISION DISTAL ULNA , RIGHT Start: 12-06-2024 End: 12-06-2024 Excision distal ulna partial/complete EXCISION DISTAL ULNA Ulnar abutment syndrome of right wrist 12/06/2024 8:40 AM EDT ME OR Start: 12-06-2024 Subsequent hospital visit by physician 12/06/2024 8:40 AM EDT Hospital Encounter [facility] [address] [place] [address] Ish Higgins MD [address] [place] [address] 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] [facility] Comment on above: Ulnar abutment syndr ome of right wrist [M25.831] Start: 12-06-2024 End: 12-06-2024 Tdn trnsplj/tr flxr/xtnsr f/arm&/wrst 1 ea tdn TRANSPLANT OR TRANFER TENDON FLEXOR OR EXTENSOR FOREARM AND/OR WRIST SINGLE Ulnar abutment syndrome of right wrist 12/06/2024 8:40 AM EDT ME OR Start: 12-06-2024 End: 12-06-2024 Admission to same day surgery center [facility] Comment on above: EXCISION DISTAL ULNA , RIGHT Start: 12-06-2024 End: 12-06-2024 Excision distal ulna partial/complete ME OR Start: 12-06-2024 Subsequent hospital visit by physician [facility] Comment on above: Ulnar abutment syndr ome of right wrist [M25.831] Start: 12-06-2024 End: 12-06-2024 Tdn trnsplj/tr flxr/xtnsr f/arm&/wrst 1 ea tdn [facility] OR Start: 11-23-2024 End: 11-23-2024 Patient encounter procedure 11/23/2024 11:30 AM EDT Office Visit Geriatrics [address] [place], [place] [phone] Snow Stratton MD [address] [place] [address] CT follow up Geriatrics Comment on above: CT follow up Start: 11-21-2024 Influenza vaccination Influenza Vacc ine (#1) [facility] Start: 11-09-2024 End: 11-09-2024 Patient encounter procedure 11/09/2024 11:45 AM EDT Office Visit Endocrinology [address] [place], [place] [id number] Marimar Wilcox, PHOTOGRAPHIC INTELLIGENCE OFFICER.CD REACTOR OPERATOR [address] [place] [address] 6 month follow up Endocrinology Comment on above: 6 month follow up Start: 10-27-2024 End: 10-27-2024 Patient encounter procedure 10/27/2024 11:30 AM EDT Office Visit Geriatrics [address] [facility] [place] [address] Snow Stratton MD [address] [facility] [place] [address] CT follow up Geriatrics Comment on above: CT follow up Start: 10-20-2024 End: 10-20-2024 Patient encounter procedure 10/20/2024 1:20 PM EDT Appointment RADIO CT SCAN [facility] [address] [place] [address] Memory loss [R41.3] RADIO CT SCAN [facility] Comment on above: Memory loss [R41.3] Start: 10-13-2024 End: 10-13-2024 Patient encounter procedure 10/13/2024 10:30 AM EDT Office Visit Geriatrics [address] [place] [address] Snow Stratton MD [address] [place] [address] Dx: Memory loss [R41.3] Geriatrics Comment on above: Dx: Memory loss [R41 .3] Start: 10-05-2024 End: 10-05-2024 Patient encounter procedure 10/05/2024 12:45 PM EDT Office Visit Endocrinology [address] [place] [address] Marimar Wilcox, PHOTOGRAPHIC INTELLIGENCE OFFICER.CD REACTOR OPERATOR [address] [place] [address] 6 month follow up Endocrinology Comment on above: 6 month follow up Start: 10-04-2024 End: 10-04-2024 ambulatory 10/04/2024 1:00 PM EDT Results Only [facility] [address] [place] [address] [facility] Start: 09-28-2024 End: 12-28-2024 Hepatic function 2000 panel - Serum or Plasma HEPATIC FUNCTION [facility] Lab Routine Elevated liver enzymes Expected: 09/28/2024, Expires: 12/28/2024 [facility] Work Phone: Comment on above: Expected: 09/28/2024 , Expires: 12/28/2024 Start: 09-21-2024 End: 12-21-2024 Bacteria identified in Urine by Culture [facility] Comment on above: Expected: 09/21/2024 , Expires: 12/21/2024 Start: 09-21-2024 End: 12-21-2024 Cobalamin (Vitamin B12) [Mass/volume] in Serum or Plasma [facility] Comment on above: Expected: 09/21/2024 , Expires: 12/21/2024 Start: 09-21-2024 End: 12-21-2024 Comprehensive metabolic 2000 panel - Serum or Plasma [facility] Comment on above: Expected: 09/21/2024 , Expires: 12/21/2024 Start: 09-21-2024 End: 12-21-2024 Hemoglobin A1c in Blood [facility] Work Phone: Comment on above: Expected: 09/21/2024 , Expires: 12/21/2024 Start: 09-21-2024 End: 12-21-2024 LIPID PANEL, NONFASTING [facility] Comment on above: Expected: 09/21/2024 , Expires: 12/21/2024 Start: 09-21-2024 End: 12-21-2024 Magnesium [Mass/volume] in Serum or Plasma [facility] Comment on above: Expected: 09/21/2024 , Expires: 12/21/2024 Start: 09-21-2024 End: 12-21-2024 Thyrotropin [Units/volume] in Serum or Plasma [facility] Comment on above: Expected: 09/21/2024 , Expires: 12/21/2024 Start: 09-21-2024 End: 12-21-2024 Thyroxine (T4) free [Mass/volume] in Serum or Plasma [facility] Comment on above: Expected: 09/21/2024 , Expires: 12/21/2024 Start: 09-21-2024 End: 09-21-2024 Patient encounter procedure 09/21/2024 1:40 PM EDT Office Visit [facility] [place] [address] [place] [address] Christine Morgan APRN.CD REACTOR OPERATOR [address] [place], [place] [id number] annual [facility] Comment on above: annual Start: 09-15-2024 End: 09-15-2024 Patient encounter procedure 09/15/2024 11:00 AM EDT Office Visit [facility] [address] [place] [address] Ish Higgins MD [address] [address] rt wrist pain---ref by Dr. Kerr---dmk [facility] Comment on above: rt wrist pain---ref by Dr. Kerr---dmk Start: 09-13-2024 End: 09-13-2024 ambulatory 09/13/2024 10:15 AM EDT OT/PT/Speech Visit [facility] [address] [place] [address] Sarahi Barker, PT, DPT right knee [facility] Comment on above: right knee Start: 09-11-2024 BP Controlled (<130/80) BP Controlle d (<130/80) [facility] Start: 09-07-2024 End: 09-07-2024 ambulatory 09/07/2024 10:00 AM EDT OT/PT/Speech Visit [facility] [address] [place] [address] Sarahi Barker, PT, DPT right knee [facility] Comment on above: right knee Start: 09-05-2024 End: 09-05-2024 Patient encounter procedure 09/05/2024 3:45 PM EDT Appointment Radiology [address] [place] [address] US SHOULDER RT; EVAL FOR IMPINGEMENT SYNDROME+RTC STRAIN Radiology Comment on above: US SHOULDER RT; EVAL FOR IMPINGEMENT SYNDROME+RTC STRAIN Start: 08-30-2024 End: 08-30-2024 Patient encounter procedure 08/30/2024 11:30 AM EDT Office Visit Orthopaedics [address] [address] Delfin Kerr MD [address] [place] [address] Right wrist pain Orthopaedics Comment on above: Right wrist pain Start: 08-24-2024 End: 08-24-2024 ambulatory 08/24/2024 4:30 PM EDT OT/PT/Speech Visit [facility] [address] [place] [address] Apple Bender, PT, DPT [address] [place] [address] Impingement syndrome of right shoulder [M75.41] [facility] Physical Therapy [place] Comment on above: Impingement syndrome of right shoulder [M75.41] Start: 08-18-2024 End: 08-18-2024 Patient encounter procedure 08/18/2024 1:45 PM EDT Office Visit Orthopaedics [address] [address] Donavon Patricia MD [address] [place] [address] R-TKA 09/15/22, pain in R knee Orthopaedics Comment on above: R-TKA 09/15/22, pain in R knee Start: 08-04-2024 Annual PCP Team Ice Seller kapil Disease Visit Annual PCP Team Chronic Disease Visit [facility] Start: 08-03-2024 End: 08-03-2024 Patient encounter procedure 08/03/2024 11:00 AM EDT Appointment RADIO MAMMO [facility] [address] [place] [address] RADIO MAMMO [facility] Start: 08-02-2024 End: 08-02-2024 Patient encounter procedure 08/02/2024 10:30 AM EDT Office Visit Orthopaedics [address] [address] Delfin Kerr MD [address] [place] [address] Rt Shoulder F/U Orthopaedics Comment on above: Rt Shoulder F/U Start: 07-27-2024 Complete blood count Hemoglobin/Param tocrit [facility] Start: 07-27-2024 Creatinine measurement Serum Creatin ine [facility] Start: 07-18-2024 End: 10-17-2024 Thyrotropin [Units/volume] in Serum or Plasma THYROID STIMULATING HORMONE Lab Routine Hypothyroidism, unspecified type Expected: 07/18/2024, Expires: 10/17/2024 [facility] Work Phone: Comment on above: Expected: 07/18/2024 , Expires: 10/17/2024 Start: 07-18-2024 End: 07-18-2024 ambulatory 07/18/2024 11:00 AM EDT Results Only [facility] [address] [place] [address] [facility] Start: 07-15-2024 Covid-19 Vaccine () Covid-19 Vaccine () [facility] Start: 07-15-2024 Hemoglobin A1c measurement HbA1C [facility] Start: 07-08-2024 End: 02-06-2025 CT Pancreas W contrast IV CT PANCREAS W IVCON Radiology Routine Pancreatic cyst Expected: 07/08/2024, Expires: 02/06/2025 [facility] Work Phone: Comment on above: Expected: 07/08/2024 , Expires: 02/06/2025 Start: 07-06-2024 Creatinine measurement Serum Creatin ine [facility] Start: 06-22-2024 End: 06-22-2024 Patient encounter procedure 06/22/2024 12:15 PM EDT Office Visit Endocrinology [address] [place] [address] Marimar Wilcox APRN.CD REACTOR OPERATOR [address] [place] [address] Freestyle Jaun 3. Need 6 mo follow up Endocrinology Comment on above: Freestyle Jaun 3. N eed 6 mo follow up Start: 05-11-2024 End: 05-11-2024 Patient encounter procedure 05/11/2024 11:45 AM EST Office Visit Endocrinology [address] [place] [address] Marimar Wilcox APRN.CD REACTOR OPERATOR [address] [place] [address] Freestyle Jaun 3. Need 6 mo follow up Endocrinology Comment on above: Freestyle Jaun 3. N eed 6 mo follow up Start: 05-06-2024 End: 05-06-2024 Patient encounter procedure 05/06/2024 11:15 AM EST Office Visit Orthopaedics [address] [id number] Curtis Ferguson MD [address] [id number] FU right foot fx of 5th metarcal, and another fx by toes. Orthopaedics Comment on above: FU right foot fx of 5th metarcal, and another fx by toes. Start: 04-28-2024 Complete blood count Hemoglobin/Param tocrit [facility] Start: 04-28-2024 Creatinine measurement Serum Creatin ine [facility] Start: 04-28-2024 Hepatitis B screening Urine Albumin:Creatinine Ratio [facility] Start: 04-14-2024 End: 04-14-2024 Patient encounter procedure 04/14/2024 1:00 PM EST Office Visit Orthopaedics [address] [place] [address] [place] [address] [place] [address] right wrist US guided injection- Orthopaedics Comment on above: right wrist US guide d injection- Start: 03-29-2024 End: 03-29-2024 Patient encounter procedure Orthopaedics Comment on above: Shoulder pain right shoulder Right shoulder pain Start: 03-23-2024 Advance Directive Discussion Advance Directive Discussion [facility] Start: 03-23-2024 Medicare Advantage Annual Wellness Visit Medicare Advantage Annual Wellness Visit [facility] Start: 03-21-2024 End: 03-21-2024 ambulatory 03/21/2024 2:00 PM EST OT/PT/Speech Visit [facility] Physical Therapy [address] [place] [address] Afsaneh Mahan, PT Falls [R29.6] [facility] Physical Therapy Comment on above: Falls [R29.6] Start: 03-11-2024 Annual PCP Team Ice Seller kapil Disease Visit Annual PCP Team Chronic Disease Visit [facility] Start: 02-10-2024 End: 02-10-2024 Patient encounter procedure 02/10/2024 11:00 AM EST Office Visit [facility] [place] [address] [place] [address] Christine Morgan APRN.CD REACTOR OPERATOR [address] [place] [address] [address] [facility] Comment on above: 6 month follow up Start: 02-05-2024 End: 02-05-2024 Patient encounter procedure [facility] [place] Comment on above: 6 month folow up Start: 02-03-2024 Annual PCP Team Ice Seller kapil Disease Visit Annual PCP Team Chronic Disease Visit [facility] Start: 02-03-2024 End: 02-03-2024 Patient encounter procedure Orthopaedics Comment on above: ER FU right foot fx of 5th metarcal, and another fx by toes. Prescription given and is not working, cannot sleep, cannot walk. Patient fell 2x in one day. Seen at [facility] no imaging available. would need xrays taken again foot pain Start: 01-31-2024 Glaucoma screening Dilated Retinal E xam [facility] Start: 01-31-2024 Hepatitis C antibody , confirmatory test Dilated Retinal Exam [facility] Start: 01-22-2024 End: 01-22-2024 ambulatory 01/22/2024 11:00 AM EDT Results Only [facility] Draw Station [address] [place] [address] [facility] Start: 01-15-2024 End: 01-15-2024 Patient encounter procedure 01/15/2024 1:00 PM EDT Office Visit Family [facility] [place] [address] [place] [address] Christine Morgan, PHOTOGRAPHIC INTELLIGENCE OFFICER.CD REACTOR OPERATOR [address] [place] [address] 1 month follow up Family [facility] Comment on above: 1 month follow up Start: 01-14-2024 Creatinine measurement Serum Creatin ine [facility] Start: 01-14-2024 Serum Creatinine Serum Creatinine Cl [facility] Start: 12-28-2023 End: 12-28-2023 Patient encounter procedure 12/28/2023 1:40 PM EDT Appointment Cat Scan [address] [place] [address] Pancreatic cyst [K86.2] [facility] Comment on above: Pancreatic cyst [K86 .2] Start: 12-19-2023 Serum Creatinine Serum Creatinine Cl [facility] Start: 12-15-2023 End: 03-15-2024 CREATININE BLD CREATININE BLD Lab Routine Pancreatic cyst Expected: 12/15/2023, Expires: 03/15/2024 [facility] Comment on above: Expected: 12/15/2023 , Expires: 03/15/2024 Start: 12-15-2023 End: 12-15-2023 Patient encounter procedure 12/15/2023 2:00 PM EDT Office Visit Family Medicine [place] [address] [place] [address] Christine Morgan, PHOTOGRAPHIC INTELLIGENCE OFFICER.CD REACTOR OPERATOR [address] [place] [address] 6 month follow up Family [facility] Comment on above: 6 month follow up Start: 12-15-2023 End: 06-13-2024 Thyrotropin [Units/volume] in Serum or Plasma THYROID STIMULATING HORMONE Lab Routine Hypothyroidism, unspecified type Expected: 12/15/2023, Expires: 06/13/2024 [facility] Work Phone: Comment on above: Expected: 12/15/2023 , Expires: 06/13/2024 Start: 11-22-2023 Covid-19 Vaccine () Covid-19 Vaccine () [facility] Start: 11-22-2023 Covid-19 Vaccine () Covid-19 Vaccine () [facility] Start: 11-22-2023 Influenza vaccination Influenza Vacc ine (#1) [facility] Start: 11-18-2023 ANNUAL PCP TEAM CRUCIBLE PACKER KAPIL DISEASE VISIT ANNUAL PCP TEAM CHRONIC DISEASE VISIT [facility] Start: 10-27-2023 Hemoglobin A1c measurement HbA1C [facility] Start: 10-13-2023 End: 10-13-2023 Patient encounter procedure 10/13/2023 10:30 AM EDT Office Visit Orthopaedics [address] [place] [address] [place] [address] [place] [address] RIGHT WRIST US GUIDED INJECTION Orthopaedics Comment on above: RIGHT WRIST US GUIDE D INJECTION Start: 10-06-2023 End: 10-06-2023 Patient encounter procedure 10/06/2023 2:20 PM EDT Office Visit Colorectal Surgery [address] [address] Sindy Mcgregor MD [address] [place] [address] : Anal sphincter 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]--INTERSTIM PLACED 2018 Colorectal Surgery Comment on above: : Anal sphincter inc ontinence [R15.9]--INTERSTIM PLACED 2018 Start: 09-28-2023 BP CONTROLLED (<130/80) BP CONTROLLE D (<130/80) [facility] Start: 09-17-2023 HEMOGLOBIN/HEMATOCRIT HEMOGLOBIN/HEM ATOCRIT [facility] Start: 09-17-2023 SERUM CREATININE SERUM CREATININE Cl [facility] Start: 09-03-2023 End: 09-03-2023 Patient encounter procedure 09/03/2023 3:00 PM EDT Appointment Radiology [address] [place] [address] Pancreatic cyst [K86.2] Radiology Comment on above: Pancreatic cyst [K86 .2] Start: 08-28-2023 BP CONTROLLED (<130/80) BP CONTROLLE D (<130/80) [facility] Start: 08-26-2023 End: 08-26-2023 Patient encounter procedure Endocrinology Comment on above: Type 2 diabetes eileen itus with stage 3 chronic kidney disease, without long-term current use of insulin, unspecified whether stage 3a or 3b CKD (HCC) [E11.22, N18.30] type 2 diabetes with frequent hypoglycemic episodes Start: 08-12-2023 End: 08-12-2023 Patient encounter procedure 08/12/2023 11:00 AM EDT Office Visit General Surgery [address] [place] [address] Ani Madrid APRN.CD REACTOR OPERATOR [address] [place] [address] post-operative follow up- scheduled with ALLERGIST IMMUNOLOGIST due to avail- confirmed with requesting provider General Surgery Comment on above: post-operative follo w up- scheduled with ALLERGIST IMMUNOLOGIST due to avail- confirmed with requesting provider Start: 08-05-2023 End: 08-05-2023 Patient encounter procedure Family [facility] Comment on above: 6 month follow up Type 2 diabetes eileen itus with stage 3 chronic kidney disease, without long-term current use of insulin, unspecified whether stage 3a or 3b CKD (HCC) [E11.22, N18.30] [facility] f/u dc 'd 07/28/23 dx: SBO/ 6 month follow up Start: 07-30-2023 ANNUAL PCP TEAM CRUCIBLE PACKER KAPIL DISEASE VISIT ANNUAL PCP TEAM CHRONIC DISEASE VISIT [facility] Start: 07-30-2023 BP CONTROLLED (<130/80) BP CONTROLLE D (<130/80) [facility] Start: 07-30-2023 HEMOGLOBIN/HEMATOCRIT HEMOGLOBIN/HEM ATOCRIT [facility] Start: 07-30-2023 Hepatitis B surface antibody level LDL CHOLESTEROL [facility] Start: 07-30-2023 SERUM CREATININE SERUM CREATININE [facility] Start: 07-22-2023 BP CONTROLLED (<130/80) BP CONTROLLE D (<130/80) [facility] Start: 07-15-2023 BP CONTROLLED (<130/80) BP CONTROLLE D (<130/80) [facility] Start: 07-12-2023 BP CONTROLLED (<130/80) BP CONTROLLE D (<130/80) [facility] Start: 07-10-2023 HEMOGLOBIN/HEMATOCRIT [facility] Start: 07-10-2023 SERUM CREATININE SERUM CREATININE [facility] Start: 06-10-2023 BP CONTROLLED (<130/80) BP CONTROLLE D (<130/80) [facility] Start: 05-30-2023 BP CONTROLLED (<130/80) BP CONTROLLE D (<130/80) [facility] Start: 05-30-2023 HEMOGLOBIN/HEMATOCRIT HEMOGLOBIN/HEM [facility] Start: 05-30-2023 SERUM CREATININE SERUM CREATININE [facility] Start: 05-05-2023 Covid-19 Vaccine () Covid-19 Vaccine () [facility] Start: 05-01-2023 End: 07-31-2023 Basic metabolic 2000 panel - Serum or Plasma BASIC METABOLIC PNL Lab Routine Renal insufficiency Expected: 05/01/2023, Expires: 07/31/2023 [facility] Work Phone: Comment on above: Expected: 05/01/2023 , Expires: 07/31/2023 Start: 04-22-2023 HEMOGLOBIN/HEMATOCRIT HEMOGLOBIN/HEM ATOCRIT [facility] Start: 03-23-2023 Advance Directive Discussion Advance Directive Discussion [facility] Start: 02-12-2023 BP CONTROLLED (<130/80) BP CONTROLLE D (<130/80) [facility] Start: 02-05-2023 Mammography [facility] Start: 02-05-2023 Screening for malign ant neoplasm of breast Mammogram Screening [facility] Start: 01-29-2023 3 comp foot exam completed DIABETIC FOOT EXAM [facility] Start: 01-29-2023 ANNUAL PCP TEAM CRUCIBLE PACKER KAPIL DISEASE VISIT ANNUAL PCP TEAM CHRONIC DISEASE VISIT [facility] Start: 01-29-2023 Diabetic foot examination Diabetic Foot Exam [facility] Start: 01-29-2023 Hemoglobin A1c measurement HbA1C [facility] Start: 01-29-2023 Hemoglobin A1c/Hemoglobin.total in Blood HBA1C [facility] Start: 01-29-2023 HEMOGLOBIN/HEMATOCRIT HEMOGLOBIN/HEM ATOCRIT [facility] Start: 01-29-2023 Hepatitis B screening URINE ALBUMIN:CREATININE RATIO [facility] Start: 01-29-2023 Hepatitis B surface antibody level LDL CHOLESTEROL [facility] Start: 01-29-2023 SERUM CREATININE SERUM CREATININE Cl [facility] Start: 12-19-2022 End: 02-18-2023 Basic metabolic 2000 panel - Serum or Plasma BASIC METABOLIC PNL Lab Routine Hyponatremia Expected: 12/19/2022, Expires: 02/18/2023 [facility] Work Phone: Comment on above: Expected: 12/19/2022 , Expires: 02/18/2023 Start: 12-19-2022 End: 02-18-2023 CBC W Auto Differential panel - Blood CBC + DIFF Lab Routine Anemia, unspecified type Expected: 12/19/2022, Expires: 02/18/2023 [facility] Work Phone: Comment on above: Expected: 12/19/2022 , Expires: 02/18/2023 Start: 12-05-2022 BP CONTROLLED (<130/80) BP CONTROLLE D (<130/80) [facility] Start: 12-03-2022 BP CONTROLLED (<130/80) BP CONTROLLE D (<130/80) [facility] Start: 11-28-2022 BP CONTROLLED (<130/80) BP CONTROLLE D (<130/80) [facility] Start: 11-27-2022 ANNUAL PCP TEAM CRUCIBLE PACKER KAPIL DISEASE VISIT ANNUAL PCP TEAM CHRONIC DISEASE VISIT [facility] Start: 11-21-2022 BP CONTROLLED (<130/80) BP CONTROLLE D (<130/80) [facility] Start: 09-01-2023 Covid-19 Vaccine ( season) Covid-19 Vaccine () [facility] Start: 11-21-2022 Influenza vaccination [facility] Start: 11-19-2022 SERUM CREATININE SERUM CREATININE [facility] Start: 11-18-2022 SERUM CREATININE SERUM CREATININE [facility] Start: 11-17-2022 HEMOGLOBIN/HEMATOCRIT HEMOGLOBIN/HEM ATOCRIT [facility] Start: 11-17-2022 SERUM CREATININE SERUM CREATININE [facility] Start: 10-20-2022 Hemoglobin A1c/Hemoglobin.total in Blood HBA1C [facility] Start: 10-11-2022 ANNUAL PCP TEAM CRUCIBLE PACKER KAPIL DISEASE VISIT ANNUAL PCP TEAM CHRONIC DISEASE VISIT [facility] Start: 10-11-2022 BP CONTROLLED (<130/80) BP CONTROLLE D (<130/80) [facility] Start: 08-01-2022 SERUM CREATININE SERUM CREATININE [facility] Start: 07-30-2022 End: 09-29-2022 CBC W Auto Differential panel - Blood CBC + DIFF Lab Routine Elevated platelet count Expected: 07/30/2022, Expires: 09/29/2022 [facility] Work Phone: Comment on above: Expected: 07/30/2022 , Expires: 09/29/2022 Start: 07-29-2022 ANNUAL PCP TEAM CRUCIBLE PACKER KAPIL DISEASE VISIT ANNUAL PCP TEAM CHRONIC DISEASE VISIT [facility] Start: 07-29-2022 End: 09-28-2022 Comprehensive metabolic 2000 panel - Serum or Plasma [facility] Work Phone: Comment on above: Expected: 07/29/2022 , Expires: 09/28/2022 Start: 07-29-2022 Hemoglobin A1c/Hemoglobin.total in Blood HBA1C [facility] Start: 07-29-2022 HEMOGLOBIN/HEMATOCRIT HEMOGLOBIN/HEM ATOCRIT [facility] Start: 07-29-2022 Hepatitis B surface antibody level LDL CHOLESTEROL [facility] Start: 07-29-2022 End: 09-28-2022 LIPID PANEL, NONFASTING [facility] Work Phone: Comment on above: Expected: 07/29/2022 , Expires: 09/28/2022 Start: 07-29-2022 End: 09-28-2022 Magnesium [Mass/volume] in Serum or Plasma [facility] Work Phone: Comment on above: Expected: 07/29/2022 , Expires: 09/28/2022 Start: 07-29-2022 SERUM CREATININE SERUM CREATININE Cl [facility] Start: 07-29-2022 End: 09-28-2022 Thyrotropin [Units/volume] in Serum or Plasma [facility] Work Phone: Comment on above: Expected: 07/29/2022 , Expires: 09/28/2022 Start: 07-29-2022 End: 09-28-2022 Thyroxine (T4) free [Mass/volume] in Serum or Plasma [facility] Work Phone: Comment on above: Expected: 07/29/2022 , Expires: 09/28/2022 Start: 07-01-2022 End: 08-31-2022 TYPE AND SCREEN,30 DAY TYPE AND SCREEN,30 DAY Blood Bank Routine Preoperative examination Expected: 07/01/2022, Expires: 08/31/2022 [facility] Work Phone: Comment on above: Expected: 07/01/2022 , Expires: 08/31/2022 Start: 05-29-2022 COVID-19 VACCINE (6 - Pfizer series) COVID-19 VACCINE (6 - Pfizer series) [facility] Start: 04-18-2022 End: 06-18-2022 25-hydroxyvitamin D3 [Mass/volume] in Serum or Plasma VITAMIN D 25 HYDROXY Lab Routine Fatigue, unspecified type Expected: 04/18/2022, Expires: 06/18/2022 [facility] Work Phone: Comment on above: Expected: 04/18/2022 , Expires: 06/18/2022 Start: 04-18-2022 End: 06-18-2022 CBC W Auto Differential panel - Blood CBC + DIFF Lab Routine Fatigue, unspecified type Expected: 04/18/2022, Expires: 06/18/2022 [facility] Work Phone: Comment on above: Expected: 04/18/2022 , Expires: 06/18/2022 Start: 04-18-2022 End: 06-18-2022 Ferritin [Mass/volume] in Serum or Plasma FERRITIN BLD Lab Routine Fatigue, unspecified type Expected: 04/18/2022, Expires: 06/18/2022 [facility] Work Phone: Comment on above: Expected: 04/18/2022 , Expires: 06/18/2022 Start: 04-18-2022 End: 06-18-2022 Hemoglobin A1c in Blood HGB A1C Lab Routine Fatigue, unspecified type Expected: 04/18/2022, Expires: 06/18/2022 [facility] Work Phone: Comment on above: Expected: 04/18/2022 , Expires: 06/18/2022 Start: 04-18-2022 End: 06-18-2022 Iron and Iron binding capacity panel - Serum or Plasma IRON + TIBC Lab Routine Fatigue, unspecified type Expected: 04/18/2022, Expires: 06/18/2022 [facility] Work Phone: Comment on above: Expected: 04/18/2022 , Expires: 06/18/2022 Start: 04-18-2022 End: 06-18-2022 Thyrotropin [Units/volume] in Serum or Plasma TSH BLD Lab Routine Fatigue, unspecified type Expected: 04/18/2022, Expires: 06/18/2022 [facility] Work Phone: Comment on above: Expected: 04/18/2022 , Expires: 06/18/2022 Start: 04-02-2022 Hemoglobin A1c/Hemoglobin.total in Blood HBA1C [facility] Start: 03-23-2022 ADVANCE DIRECTIVE DISCUSSION ADVANCE DIRECTIVE DISCUSSION [facility] Start: 02-27-2022 End: 04-29-2022 CBC panel - Blood by Automated count CBC Lab Routine Anal sphincter incontinence Expected: 02/27/2022 (Approximate), Expires: 04/29/2022 [facility] Work Phone: Comment on above: Expected: 02/27/2022 (Approximate), Expires: 04/29/2022 Start: 02-27-2022 End: 04-29-2022 Comprehensive metabolic 2000 panel - Serum or Plasma COMP METABOLIC PANEL Lab Routine Anal sphincter incontinence Expected: 02/27/2022 (Approximate), Expires: 04/29/2022 [facility] Work Phone: Comment on above: Expected: 02/27/2022 (Approximate), Expires: 04/29/2022 Start: 02-27-2022 Hepatitis B screening URINE ALBUMIN:CREATININE RATIO [facility] Start: 02-27-2022 SERUM CREATININE SERUM CREATININE Cl [facility] Start: 01-29-2022 End: 03-31-2022 ALBUMIN/CREAT RATIO RND UR [facility] Work Phone: Comment on above: Expected: 01/29/2022 , Expires: 03/31/2022 Start: 01-29-2022 End: 03-31-2022 CBC W Auto Differential panel - Blood [facility] Work Phone: Comment on above: Expected: 01/29/2022 , Expires: 03/31/2022 Start: 01-29-2022 End: 03-31-2022 Comprehensive metabolic 2000 panel - Serum or Plasma [facility] Work Phone: Comment on above: Expected: 01/29/2022 , Expires: 03/31/2022 Start: 01-29-2022 End: 03-31-2022 Hemoglobin A1c in Blood [facility] Work Phone: Comment on above: Expected: 01/29/2022 , Expires: 03/31/2022 Start: 01-29-2022 Hemoglobin A1c/Hemoglobin.total in Blood HBA1C [facility] Start: 01-29-2022 End: 03-31-2022 LIPID PANEL, NONFASTING [facility] Work Phone: Comment on above: Expected: 01/29/2022 , Expires: 03/31/2022 Start: 01-29-2022 End: 03-31-2022 Thyrotropin [Units/volume] in Serum or Plasma [facility] Work Phone: Comment on above: Expected: 01/29/2022 , Expires: 03/31/2022 Start: 01-14-2022 Mammography MAMMOGRAM [facility] Start: 11-27-2021 End: 01-27-2022 CBC W Auto Differential panel - Blood CBC + DIFF Lab Routine Anemia, unspecified type Expected: 11/27/2021, Expires: 01/27/2022 [facility] Work Phone: Comment on above: Expected: 11/27/2021 , Expires: 01/27/2022 Start: 11-22-2021 End: 01-22-2022 Basic metabolic 2000 panel - Serum or Plasma BASIC METABOLIC PNL Lab Routine Hyponatremia Expected: 11/22/2021, Expires: 01/22/2022 [facility] Work Phone: Comment on above: Expected: 11/22/2021 , Expires: 01/22/2022 Start: 11-21-2021 Influenza vaccination INFLUENZA (#1) [facility] Start: 11-05-2021 Colonoscopy COLONOSCOPY [facility] Start: 11-05-2021 COLORECTAL CANCER SCREENING COLORECTAL CANCER SCREENING [facility] Start: 10-05-2021 End: 12-05-2021 Hemoglobin A1c/Hemoglobin.total in Blood HGB A1C Lab Routine Type 2 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 with stage 3 chronic kidney disease, without long-term current use of insulin, unspecified whether stage 3a or 3b CKD (HCC) Expected: 10/05/2021, Expires: 12/05/2021 [facility] Work Phone: Comment on above: Expected: 10/05/2021 , Expires: 12/05/2021 Start: 10-03-2021 COVID-19 VACCINE (5 - Booster for Pfizer series) COVID-19 VACCINE (5 - Booster for Pfizer series) [facility] Start: 09-05-2021 Hepatitis B surface antibody level LDL CHOLESTEROL [facility] Start: 08-28-2021 Hemoglobin A1c/Hemoglobin.total in Blood HBA1C [facility] Start: 07-30-2021 End: 09-29-2021 Bacteria identified in Urine by Culture URINE CULTURE Microbiology Routine Hyponatremia Expected: 07/30/2021, Expires: 09/29/2021 [facility] Work Phone: Comment on above: Expected: 07/30/2021 , Expires: 09/29/2021 Start: 07-30-2021 End: 09-29-2021 Osmolality of Urine OSMOLALITY URINE Lab Routine Hyponatremia Expected: 07/30/2021, Expires: 09/29/2021 [facility] Work Phone: Comment on above: Expected: 07/30/2021 , Expires: 09/29/2021 Start: 07-30-2021 End: 09-29-2021 Renal function 2000 panel - Serum or Plasma RENAL FUNCTION PANEL Lab Routine Hyponatremia Expected: 07/30/2021, Expires: 09/29/2021 [facility] Work Phone: Comment on above: Expected: 07/30/2021 , Expires: 09/29/2021 Start: 07-30-2021 End: 09-29-2021 Sodium [Moles/volume] in Urine collected for unspecified duration SODIUM RANDOM URINE Lab Routine Hyponatremia Expected: 07/30/2021, Expires: 09/29/2021 [facility] Work Phone: Comment on above: Expected: 07/30/2021 , Expires: 09/29/2021 Start: 07-29-2021 End: 09-28-2021 LIPID PANEL, NONFASTING [facility] Work Phone: Comment on above: Expected: 07/29/2021 , Expires: 09/28/2021 Start: 07-29-2021 End: 09-28-2021 Magnesium [Mass/volume] in Serum or Plasma [facility] Work Phone: Comment on above: Expected: 07/29/2021 , Expires: 09/28/2021 Start: 07-29-2021 End: 09-28-2021 T4 FREE/FREE THYROX [facility] Work Phone: Comment on above: Expected: 07/29/2021 , Expires: 09/28/2021 Start: 07-29-2021 End: 09-28-2021 Urinalysis complete panel - Urine [facility] Work Phone: Comment on above: Expected: 07/29/2021 , Expires: 09/28/2021 Start: 07-09-2021 COVID-19 VACCINE (4 - Booster for Pfizer series) COVID-19 VACCINE (4 - Booster for Pfizer series) [facility] Start: 03-23-2021 ADVANCE DIRECTIVE DISCUSSION ADVANCE DIRECTIVE DISCUSSION [facility] Start: 02-07-2021 3 comp foot exam completed DIABETIC FOOT EXAM [facility] Start: 10-09-2020 Hepatitis C antibody , confirmatory test DILATED RETINAL EXAM [facility] Start: 01-20-2019 SHINGRIX VACCINE (3 of 3) SHINGRIX VACCINE (3 of 3) [facility] Start: 05-22-2014 Screening for osteoporosis Bone Density Screening [facility] Start: 2011 Hepatitis B Vaccine (1 of 3 - Risk 3-dose series) Hepatitis B Vaccine (1 of 3 - Risk 3-dose series) [facility] Start: 2011 RSV Vaccine (1 - 1-d ose 60+ series) RSV Vaccine (1 - 1-dose 60+ series) [facility] Start: 1996 COLOGUARD (FIT-DNA) COLOGUARD (FIT-D NA) [facility] Start: [address] COLONOGRAPHY [facility] Start: 1996 FECAL OCCULT BLOOD FECAL OCCULT BLOO D [facility] Start: 1996 Screening for malign ant neoplasm of colon [facility] Start: 1996 SIGMOIDOSCOPY SIGMOIDOSCOPY [facility] Start: 1969 Anxiety Screening Anxiety Screening [facility] Start: 1969 BP CONTROLLED (<130/80) BP CONTROLLE D (<130/80) [facility] Bacteria identified in Urine by Culture URINE CULTURE Microbiology Routine Acute cystitis without hematuria 08/05/2023 2:53 PM EDT [facility] Work Phone: End: 06-30-2025 BD DXA TRABECULAR BONE SCORE (TBS) BD DXA TRABECULAR BONE SCORE (TBS) Radiology Routine Asymptomatic postmenopausal state Closed fracture of right foot with routine healing, subsequent encounter 1 Occurrences starting 05/31/2024 until 06/30/2025 [facility] Comment on above: 1 Occurrences starti ng 05/31/2024 until 06/30/2025 End: 11-12-2025 CT Head W contrast IV CT BRAIN W IVCON Radiology Routine Memory loss 1 Occurrences starting 10/13/2024 until 11/12/2025 [facility] Work Phone: Comment on above: 1 Occurrences starti ng 10/13/2024 until 11/12/2025 End: 07-13-2023 CT HIP WO IVCON RIGHT CT HIP WO IVCON RIGHT Radiology Routine Presence of right artificial hip joint 1 Occurrences starting 06/13/2022 until 07/13/2023 [facility] Work Phone: Comment on above: 1 Occurrences starti ng 06/13/2022 until 07/13/2023 End: 05-22-2023 Ct lower extremity w/o contrast material CT KNEE WO IVCON RT Radiology Routine History of partial knee replacement 1 Occurrences starting 04/22/2022 until 05/22/2023 [facility] Work Phone: Comment on above: 1 Occurrences starti ng 04/22/2022 until 05/22/2023 End: 01-13-2025 CT Pancreas W contrast IV CT PANCREAS W IVCON Radiology Routine Pancreatic cyst 1 Occurrences starting 12/15/2023 until 01/13/2025 [facility] Comment on above: 1 Occurrences starti ng 12/15/2023 until 01/13/2025 CT Pancreas W contra st IV CT PANCREAS W IVCON Radiology Routine Pancreatic cyst 12/28/2023 3:06 PM EDT [facility] Work Phone: CT Pancreas W contra st IV CT PANCREAS W IVCON Radiology Routine Pancreatic cyst (HCC) 10/13/2024 3:13 PM EDT [facility] Work Phone: End: 03-25-2025 DBT Breast - bilateral screening TONY SCREENING W PELON Radiology Routine Encounter for screening mammogram for breast cancer 1 Occurrences starting 02/24/2024 until 03/25/2025 [facility] Work Phone: Comment on above: 1 Occurrences starti ng 02/24/2024 until 03/25/2025 End: 03-09-2023 Diagnostic mammography computer-aided detcj uni TONY DIAGNOSTIC LT Radiology Routine Inconclusive mammogram 1 Occurrences starting 02/07/2022 until 03/09/2023 [facility] Work Phone: Comment on above: 1 Occurrences starti ng 02/07/2022 until 03/09/2023 End: 06-30-2025 DXA Skeletal system.axial Views for bone density DXA-AXIAL SKELETON Radiology Routine Asymptomatic postmenopausal state Closed fracture of right foot with routine healing, subsequent encounter 1 Occurrences starting 05/31/2024 until 06/30/2025 [facility] Work Phone: Comment on above: 1 Occurrences starti ng 05/31/2024 until 06/30/2025 End: 02-27-2023 ECG COMPLETE ECG COMPLETE ECG Routine Anal sphincter incontinence 1 Occurrences starting 02/27/2022 until 02/27/2023 [facility] Work Phone: Comment on above: 1 Occurrences starti ng 02/27/2022 until 02/27/2023 End: 02-12-2023 EGD DIAGNOSTIC EGD DIAGNOSTIC Endoscopy Routine History of anemia Gastritis without bleeding, unspecified chronicity, unspecified gastritis type 1 Occurrences starting 02/12/2022 until 02/12/2023 [facility] Work Phone: Comment on above: 1 Occurrences starti ng 02/12/2022 until 02/12/2023 End: 04-09-2024 TONY SCREENING TONY SCREENING Radiology Routine Encounter for screening mammogram for breast cancer 1 Occurrences starting 03/11/2023 until 04/09/2024 [facility] Work Phone: Comment on above: 1 Occurrences starti ng 03/11/2023 until 04/09/2024 End: 09-14-2024 MR Wrist - right WO contrast MRI WRIST WO IVCON RIGHT Radiology Routine Right wrist pain Ulnar impaction syndrome, right 1 Occurrences starting 08/16/2023 until 09/14/2024 [facility] Work Phone: Comment on above: 1 Occurrences starti ng 08/16/2023 until 09/14/2024 PT PLAN OF CARE CERTIFICATION PT PLAN OF CARE CERTIFICATION Procedures Routine Stiffness of right knee Ordered: 10/08/2022 [facility] Comment on above: Ordered: 10/08/2022 End: 02-12-2023 Screening colonoscopy COLONOSCOPY SCREENING Endoscopy Routine History of colonic polyps 1 Occurrences starting 02/12/2022 until 02/12/2023 [facility] Work Phone: Comment on above: 1 Occurrences starti ng 02/12/2022 until 02/12/2023 End: 02-28-2023 Screening mammography bi 2-view breast inc cad TONY SCREENING Radiology Routine Encounter for screening mammogram for breast cancer 1 Occurrences starting 01/29/2022 until 02/28/2023 [facility] Work Phone: Comment on above: 1 Occurrences starti ng 01/29/2022 until 02/28/2023 End: 08-29-2022 Us abdominal real time w/image limited US ABD RT UPPER QUADRANT Radiology Routine Elevated liver enzymes 1 Occurrences starting 07/30/2021 until 08/29/2022 [facility] Work Phone: Comment on above: 1 Occurrences starti ng 07/30/2021 until 08/29/2022 End: 03-09-2023 Us breast uni real time with image limited US BREAST LTD RT Radiology Routine Inconclusive mammogram 1 Occurrences starting 02/07/2022 until 03/09/2023 [facility] Work Phone: Comment on above: 1 Occurrences starti ng 02/07/2022 until 03/09/2023 End: 09-01-2025 US Shoulder - right US SHOULDER RIGHT Radiology Routine Impingement syndrome of right shoulder Rotator cuff strain, right, subsequent encounter 1 Occurrences starting 08/02/2024 until 09/01/2025 [facility] Work Phone: Comment on above: 1 Occurrences starti ng 08/02/2024 until 09/01/2025 US Shoulder - right US SHOULDER RIGHT Radiology Routine Impingement syndrome of right shoulder Rotator cuff strain, right, subsequent encounter 09/05/2024 4:18 PM EDT [facility] Work Phone: XR Foot - right AP a nd Lateral and oblique XR FOOT GENERAL 3V AP/LAT/OBL RIGHT Radiology Routine Pain 02/03/2024 1:21 PM EST [facility] Work Phone: End: 08-13-2023 XR HIP 2V AP/LAT RIGHT (AK,FL,ME) XR HIP 2V AP/LAT RIGHT (AK,FL,ME) Radiology Routine Pain in right hip 1 Occurrences starting 07/15/2022 until 08/13/2023 [facility] Work Phone: Comment on above: 1 Occurrences starti ng 07/15/2022 until 08/13/2023 End: 01-02-2022 XR HIP GENERAL 3V PELV/AP/LAT RIGHT [facility] Work Phone: Comment on above: 1 Occurrences starti ng 01/02/2022 until 01/02/2022 End: 05-22-2023 XR HIP GENERAL 3V PELV/AP/LAT RIGHT XR HIP GENERAL 3V PELV/AP/LAT RIGHT Radiology Routine Hip fracture requiring operative repair, right, closed, initial encounter (HCC) 1 Occurrences starting 04/22/2022 until 05/22/2023 [facility] Work Phone: Comment on above: 1 Occurrences starti ng 04/22/2022 until 05/22/2023 XR HIP GENERAL 3V PELV/AP/LAT RIGHT XR HIP GENERAL 3V PELV/AP/LAT RIGHT Radiology Routine Hip fracture requiring operative repair, right, closed, initial encounter (HCC) 04/22/2022 4:19 PM [facility] Work Phone: XR Knee AP and Later al and Merch[employer] XR KNEE POST OP 3V AP/LAT/MERCHANT RIGHT Radiology Routine Right knee pain, unspecified chronicity 08/18/2024 1:19 PM EDT [facility] Work Phone: XR KNEE GENERAL 4V A P BOTH/PA BOTH/LAT/MERC RIGHT XR KNEE GENERAL 4V AP BOTH/PA BOTH/LAT/MERC RIGHT Radiology Routine Chronic pain of right knee 10/17/2021 4:28 PM EDT [facility] Work Phone: End: 10-27-2023 XR KNEE POST OP 3V AP/LAT/MERCHANT RIGHT XR KNEE POST OP 3V AP/LAT/MERCHANT RIGHT Radiology Routine Chronic pain of right knee 1 Occurrences starting 09/25/2022 until 10/27/2023 [facility] Work Phone: Comment on above: 1 Occurrences starti ng 09/25/2022 until 10/27/2023 End: 12-19-2023 XR KNEE POST OP 3V AP/LAT/MERCHANT RIGHT XR KNEE POST OP 3V AP/LAT/MERCHANT RIGHT Radiology Routine Chronic pain of right knee 1 Occurrences starting 11/17/2022 until 12/19/2023 [facility] Work Phone: Comment on above: 1 Occurrences starti ng 11/17/2022 until 12/19/2023 End: 11-09-2024 XR Pelvis and Hip - right AP and Lateral frog XR HIP GENERAL 3V PELV/AP/LAT RIGHT Radiology Routine Fall, initial encounter Pain of right hip 1 Occurrences starting 10/11/2023 until 11/09/2024 [facility] Work Phone: Comment on above: 1 Occurrences starti ng 10/11/2023 until 11/09/2024 XR Pelvis and Hip - right AP and Lateral frog XR HIP GENERAL 3V PELV/AP/LAT RIGHT Radiology Routine Fall, initial encounter Pain of right hip 10/11/2023 5:38 PM EDT [facility] End: 11-04-2024 XR Pelvis AP XR PELVIS 1V AP Radiology Routine Pelvic pain 1 Occurrences starting 10/06/2023 until 11/04/2024 [facility] Work Phone: Comment on above: 1 Occurrences starti ng 10/06/2023 until 11/04/2024 End: 11-04-2024 XR Pelvis Lateral XR PELVIS 1V LATERAL Radiology Routine Pelvic pain 1 Occurrences starting 10/06/2023 until 11/04/2024 [facility] Comment on above: 1 Occurrences starti ng 10/06/2023 until 11/04/2024 End: 04-14-2025 XR Shoulder - right 3 Views XR SHOULDER GENERAL 3V OR MORE AP/TRUE AP/OTHER RIGHT Radiology Routine Right shoulder pain, unspecified chronicity 1 Occurrences starting 03/15/2024 until 04/14/2025 [facility] Work Phone: Comment on above: 1 Occurrences starti ng 03/15/2024 until 04/14/2025 End: 10-11-2024 XR Toes - right 3 Views XR TOE AP/LAT/OBL RIGHT Radiology Routine Contusion of fifth toe 1 Occurrences starting 09/12/2023 until 10/11/2024 [facility] Work Phone: Comment on above: 1 Occurrences starti ng 09/12/2023 until 10/11/2024 XR Toes - right 3 Views XR TOE A P/LAT/OBL RIGHT Radiology Routine Contusion of fifth toe 09/12/2023 1:41 PM EDT [facility] XR Wrist - left PA a nd Lateral and Oblique XR WRIST GENERAL 3V PA/LAT/OBL LEFT Radiology Routine Ulnar abutment syndrome of right wrist Ordered: 09/14/2024 [facility] Work Phone: Comment on above: Ordered: 09/14/2024 End: 05-14-2025 XR Wrist - right PA and Lateral and Oblique XR WRIST GENERAL 3V PA/LAT/OBL RIGHT Radiology Routine Pain of ulnar side of wrist 1 Occurrences starting 04/14/2024 until 05/14/2025 [facility] Work Phone: Comment on above: 1 Occurrences starti ng 04/14/2024 until 05/14/2025 XR Wrist - right PA and Lateral and Oblique XR WRIST GENERAL 3V PA/LAT/OBL RIGHT Radiology Routine Ulnar abutment syndrome of right wrist Ordered: 09/14/2024 [facility] Comment on above: Ordered: 09/14/2024 End: 03-05-2024 XR WRIST GENERAL 3V PA/LAT/OBL RIGHT XR WRIST GENERAL 3V PA/LAT/OBL RIGHT Radiology Routine Pain in right wrist 1 Occurrences starting 02/04/2023 until 03/05/2024 [facility] Work Phone: Comment on above: 1 Occurrences starti ng 02/04/2023 until 03/05/2024 XR WRIST GENERAL 3V PA/LAT/OBL RIGHT XR WRIST GENERAL 3V PA/LAT/OBL RIGHT Radiology Routine Pain in right wrist 02/09/2023 1:08 PM EST [facility] Work Phone: [facility] Immunizations Immunization Date Immunization Notes Care Provider Diallo chaudhari 01-15-2024 COVID-19 vaccine, ag e 12+ yr (PFIZER-BIONTECH COMIRNATY) Christine Morgan PHOTOGRAPHIC INTELLIGENCE OFFICER.CD REACTOR OPERATOR Work Phone: [facility] 12-15-2023 influenza, high dose seasonal, preservative-free Christine Morgan PHOTOGRAPHIC INTELLIGENCE OFFICER.CD REACTOR OPERATOR Work Phone: [facility] 12-15-2023 influenza virus vacc ine, unspecified formulation Christine Morgan PHOTOGRAPHIC INTELLIGENCE OFFICER.CD REACTOR OPERATOR Work Phone: [facility] 01-02-2023 influenza virus vacc ine, unspecified formulation Christine Morgan PHOTOGRAPHIC INTELLIGENCE OFFICER.CD REACTOR OPERATOR Work Phone: [facility] 01-29-2022 COVID-19 booster vac cine, age 12+ yr, bivalent (PFIZER-BIONTECH) Chritsine Morgan APRN.CD REACTOR OPERATOR Work Phone: [facility] 01-29-2022 influenza virus vacc ine, unspecified formulation RAFI EGAN MD [facility] 01-29-2022 influenza, high-dose , quadrivalent vaccine (FLUZONE HIGH DOSE QUADRIVALENT) Christine Morgan APRN.CD REACTOR OPERATOR Work Phone: [facility] 08-08-2021 SARS-CoV-2 mRNA ([id number] ) vaccine RAFI EGAN MD [facility] 08-08-2021 zoster vaccine recombinant Christine Morgan APRN.CD REACTOR OPERATOR Work Phone: [facility] Work Phone: 03-10-2021 SARS-CoV-2 mRNA (tozinameran) vaccine RAFI EGAN MD [facility] 01-14-2021 influenza virus vacc ine, unspecified formulation RAFI EGAN MD [facility] 01-14-2021 influenza, high-dose , quadrivalent vaccine (FLUZONE HIGH DOSE QUADRIVALENT) Christine Morgan APRN.CD REACTOR OPERATOR Work Phone: [facility] 06-22-2020 COVID-19 vaccine, ag e 12+ yr (PFIZER-BIONTECH - PURPLE TOP) Christine Morgan APRN.CD REACTOR OPERATOR Work Phone: [facility] Comment on above: Result Comment: 2022: [id number] 06-01-2020 COVID-19 vaccine, ag e 12+ yr (PFIZER-BIONTECH - PURPLE TOP) Christine Morgan APRN.CD REACTOR OPERATOR Work Phone: [facility] Comment on above: Result Comment: 2022: [id number] 02-08-2020 influenza virus vacc ine, unspecified formulation RAFI EGAN MD [facility] 02-08-2020 influenza, high-dose , quadrivalent vaccine (FLUZONE HIGH DOSE QUADRIVALENT) Christine Haagen PHOTOGRAPHIC INTELLIGENCE OFFICER.CD REACTOR OPERATOR Work Phone: [facility] 01-30-2020 zoster vaccine, recombinant, adjuvanted, (SHINGRIX, PF,) 50 mcg/0.5 mL injection Christine Haagen PHOTOGRAPHIC INTELLIGENCE OFFICER.CD REACTOR OPERATOR Work Phone: [facility] Work Phone: Comment on above: Inject 0.5 mL intram uscularly now and repeat 2nd dose in 2-6 months 01-27-2019 pneumococcal polysaccharide vaccine, 23 valent Christine Haagen PHOTOGRAPHIC INTELLIGENCE OFFICER.CD REACTOR OPERATOR Work Phone: [facility] 12-15-2018 influenza virus vacc ine, unspecified formulation RAFI EGAN MD [facility] 12-15-2018 influenza, high dose seasonal, preservative-free Christine Haagen PHOTOGRAPHIC INTELLIGENCE OFFICER.CD REACTOR OPERATOR Work Phone: [facility] 11-25-2018 zoster vaccine recombinant Christine Haagen PHOTOGRAPHIC INTELLIGENCE OFFICER.CD REACTOR OPERATOR Work Phone: [facility] 02-18-2018 tetanus toxoid, redu jakub diphtheria toxoid, and acellular pertussis vaccine, adsorbed Christine Haagen PHOTOGRAPHIC INTELLIGENCE OFFICER.CD REACTOR OPERATOR Work Phone: [facility] 01-16-2018 influenza virus vacc ine, unspecified formulation Christine Haagen PHOTOGRAPHIC INTELLIGENCE OFFICER.CD REACTOR OPERATOR Work Phone: [facility] 01-20-2017 influenza virus vacc ine, unspecified formulation RAFI EGAN MD [facility] 01-20-2017 influenza, high dose seasonal, preservative-free Christine Haagen PHOTOGRAPHIC INTELLIGENCE OFFICER.CD REACTOR OPERATOR Work Phone: [facility] 06-05-2016 pneumococcal conjuga te vaccine, 13 valent Christine Haagen PHOTOGRAPHIC INTELLIGENCE OFFICER.CD REACTOR OPERATOR Work Phone: [facility] 12-25-2015 influenza virus vacc ine, unspecified formulation RAFI EGAN MD [facility] 12-25-2015 influenza, injectabl e, quadrivalent, contains preservative Christine Haagen PHOTOGRAPHIC INTELLIGENCE OFFICER.CD REACTOR OPERATOR Work Phone: [facility] 12-25-2015 influenza, seasonal, injectable Christine Haagen PHOTOGRAPHIC INTELLIGENCE OFFICER.CD REACTOR OPERATOR Work Phone: [facility] Work Phone: 01-22-2015 influenza virus vacc ine, unspecified formulation RAFI EGAN MD [facility] 01-22-2015 influenza, seasonal, injectable Christine Haagen PHOTOGRAPHIC INTELLIGENCE OFFICER.CD REACTOR OPERATOR Work Phone: [facility] 03-25-2014 zoster vaccine, live Christine Haagen PHOTOGRAPHIC INTELLIGENCE OFFICER.CD REACTOR OPERATOR Work Phone: [facility] Work Phone: 01-27-2014 pneumococcal polysaccharide vaccine, 23 valent Christine Haagen PHOTOGRAPHIC INTELLIGENCE OFFICER.CD REACTOR OPERATOR Work Phone: [facility] 01-07-2014 influenza virus vacc ine, unspecified formulation RAFI EGAN MD [facility] 01-07-2014 influenza, seasonal, injectable Christine Haagen PHOTOGRAPHIC INTELLIGENCE OFFICER.CD REACTOR OPERATOR Work Phone: [facility] 01-07-2013 influenza virus vacc ine, unspecified formulation Christine Haagen PHOTOGRAPHIC INTELLIGENCE OFFICER.CD REACTOR OPERATOR Work Phone: [facility] 12-17-2011 influenza virus vacc ine, unspecified formulation Christine Haagen PHOTOGRAPHIC INTELLIGENCE OFFICER.CD REACTOR OPERATOR Work Phone: [facility] 12-26-2010 influenza virus vacc ine, whole virus Christine Haagen PHOTOGRAPHIC INTELLIGENCE OFFICER.CD REACTOR OPERATOR Work Phone: [facility] Work Phone: 12-21-2010 pneumococcal polysaccharide vaccine, 23 valent Christine Haagen PHOTOGRAPHIC INTELLIGENCE OFFICER.CD REACTOR OPERATOR Work Phone: [facility] 03-06-2009 novel influenza-H1N1 -09, preservative-free, injectable Christine Haagen PHOTOGRAPHIC INTELLIGENCE OFFICER.CD REACTOR OPERATOR Work Phone: [facility] Work Phone: Payers Date Payer Category Payer Medicare (Managed Care) MMO [employer] HMO [id number] 2023 Self-pay 2022 Medicare [id number] 2021 Unknown [id number] 2021 Medicare MMO MEDICARE MMO [employer] HMO [id number] 2021-Present [phone] [address] [place] [address] O [id number] 2016 Private Health Insurance [id number] 2000 Medicare [id number] 1951 Unknown [id number] 1950 Unknown [id number] 1951 Unknown [id number] 1950 Unknown [id number] 1950 Unknown [id number] 1950 Unknown [id number] 1950 Unknown [id number] Medicare [id number] Medicare [id number] Private Health Insurance [id number] Unknown [id number] Unknown [id number] Social History Date Type Detail Facility Start: 02-14-2013 End: 12-15-2023 Tobacco smoking status NHIS Ex-smoker [facility] Start: 03-23-1967 End: 03-23-1989 History of tobacco use Current smoker [facility] Start: 03-23-1967 End: 03-23-1989 History of tobacco use Cigarette Smoker [facility] Start: 02-14-2013 End: 03-11-2023 Cigarettes smoked current (pack per day) - Reported 1.5 [facility] Work Phone: Start: 02-14-2013 End: 12-15-2023 Tobacco use and exposure Smokeless tobacco non-user [facility] Start: 07-29-2021 End: 11-23-2024 Alcohol intake Current drinker of alcohol (finding) [facility] Start: 09-28-2019 End: 02-08-2020 History SDOH Alcohol Frequency 3 [facility] Start: 04-24-2019 End: 01-12-2021 History SDOH Alcohol Std Drinks 1 [facility] Start: 05-07-2018 History SDOH Alcohol Comment few times a year. mixed drinls/marcelino. 3 in sitting. [facility] Start: 02-08-2020 End: 01-12-2021 History SDOH Social Connections Get Together 2 [facility] Start: 02-08-2020 History SDOH Stress 4 [facility] Start: 02-08-2020 Education 19 [facility] Start: 1950 Sex Assigned At Female [facility] Start: 12-24-2020 End: 02-12-2022 Exposure to SARS-CoV-2 (event) Not sure [facility] Work Phone: Start: 09-04-2022 End: 03-11-2023 Tobacco use panel [facility] Work Phone: (I/We) worried haley er (my/our) food would run out before (I/we) got money to buy more. Never true [facility] Work Phone: Start: 02-22-2012 In the past 12 months, has lack of transportation kept you from medical appointments or from getting medications? No [facility] Work Phone: Start: 07-09-2018 Gender identity Identifies as female gender (finding) [facility] Start: 07-09-2018 Sexual orientation Heterosexual (finding) [facility] How often to you hav e a drink containing alcohol? 2-4 times a month [facility] How hard is it for y ou to pay for the very basics like food, housing, medical care, and heating Somewhat hard [facility] Do you feel stress - tense, restless, nervous, or anxious, or unable to sleep at night because your mind is troubled all the time - these days [OSQ] Rather much [facility] In the past 12 month s, was there a time when you were not able to pay the mortgage or rent on time? No [facility] Are you now , , , , never or living with a partner? [facility] How often to you hav e a drink containing alcohol? Monthly or less [facility] How many standard dr inks containing alcohol do you have on a typical day? 1 or 2 [facility] How often do you hav e 6 or more drinks on 1 occasion? Never [facility] How hard is it for y ou to pay for the very basics like food, housing, medical care, and heating Not very hard [facility] Do you feel stress - tense, restless, nervous, or anxious, or unable to sleep at night because your mind is troubled all the time - these days [OSQ] To some extent [facility] History of tobacco use Passive smoker [facility] Start: 09-12-2023 Alcohol Comment once or twice a month [facility] Medical Equipment Procedure Code Equipment Code Equipment Original Text Equipment Identifier Dates Lead Interstim 2 8cm Neurostimulator Quadripolar - [id number] Start: 06-15-2018 Neurostimulator Interstim Ii 10-14hz 0-4v Thk.3in 2inx1.7in Implantable 4 - [id number] Start: 06-29-2018 Screw 6.5mm 7.9m m 2.9mm Hemisphere Reverse Cut Flute Stainless Steel 80mm - [id number] Start: 11-17-2021 Envelope Tyrx Me dium Polyarylate Minocycline Rifampin 2.7x2.5in Absorbable - [id number] Start: 05-13-2022 Interstim X Rech arge Free Neurostimulator - [id number] Start: 05-13-2022 Kit Bioprep Bone Cement Preparation Plug Plumbing Warehouse Helper Wingate Curette Suction - [id number] Start: 07-07-2022 Mdm Liner X3 Ins ert 36mm X 22.2mm [id number] Start: 07-07-2022 Cable Dall-Miles 2mm Vitallium Orthopedic Set Sleeve Bead Hip - [id number] Start: 07-07-2022 Screw Trident Ii 6.5mm 25mm Bone Low Profile Hexagonal Sterile - [id number] Start: 07-07-2022 Cement Simplex P Bone Radiopaque Full Dose Sterile - [id number] Start: 09-15-2022 Insert Triathlon 2 11mm Tibial Bearing Condylar Stabilize Sterile Knee [id number] Start: 09-15-2022 Component Triath jose miguel 3 Femoral Cruciate Retain Cemented Knee Right - [id number] Start: 09-15-2022 Component Triath jose miguel 29mm X3 9mm Patellar Asymmetric Knee - [id number] Start: 09-15-2022 Panniculectomy U nknown 11/26/22 Unknown Unknown FDA Start: 11-26-2022 Panniculectomy U nknown 11/26/22 Unknown Unknown FDA Start: 11-26-2022 Panniculectomy U nknown 11/26/22 Unknown Unknown FDA Start: 11-26-2022 Panniculectomy U nknown 11/26/22 Unknown Unknown FDA Start: 11-26-2022 Cement Simplex P Bone Radiopaque Full Dose Sterile - [id number] Start: 07-07-2022 Cement Simplex P Bone Radiopaque Full Dose Sterile - [id number] Start: 07-07-2022 Cement Simplex P Bone Radiopaque Full Dose Sterile - [id number] Start: 09-15-2022 [place] Femoral S tem Hip V40 Sz1 44mm X125mm [id number] Start: 07-07-2022 Shell Trident Ii 46mm C Tritanium Acetabular 3 Screw Hole Cluster Sterile - [id number] Start: 07-07-2022 Liner Mdm 36mm C Cocr Acetabular 2 Mobility Modular Hip - [id number] Start: 07-07-2022 Baseplate Triath jose miguel 2 [place] Cocr Tibial Total Stabilize Cemented Knee - [id number] Start: 09-15-2022 Screw 6.5mm 4.8m m 4mm Reverse Cut Flute Stainless Steel 75mm 16mm Bone Self - [id number] Start: 11-17-2021 Test blood sugar (s) 1 times daily and as needed for symptoms. Dx: Type 2 DM - Controlled E11.9 Insulin: No [id number] Start: 07-08-2023 End: 08-12-2023 Test blood sugar (s) 1 times daily and prn symptoms. Dx: Type 2 DM - Controlled E11.9 Insulin: No [id number] Start: 07-08-2023 End: 05-11-2024 Test blood sugar (s) 1 times daily and as needed for symptoms. Dx: Type 2 DM - Controlled E11.9 Insulin: Yes [id number] Start: 07-08-2023 End: 07-08-2023 Test blood sugar (s) 1 times daily and as needed for symptoms. Dx: Type 2 DM - Controlled E11.9 Insulin: Yes [id number] Start: 07-08-2023 End: 07-08-2023 Test blood sugar (s) 1 times daily and prn symptoms. Dx: Type 2 DM - Controlled E11.9 Insulin: Yes [id number] Start: 07-08-2023 End: 07-08-2023 Test blood sugar (s) 1 times daily and prn symptoms. Dx: Type 2 DM - Controlled E11.9 Insulin: Yes [id number] Start: 07-08-2023 End: 07-08-2023 Goals Date Patient Goal Desired Activity /State Personal health goal Personal health goal Comment on above: Formatting of this n ote might be different from the original. Get billing/insurance claims cleared up for previous hip surgery in June 2022 Personal health goal Comment on above: Formatting of this n ote might be different from the original. This patient has the following Chronic Kidney Disease Health Maintenance goals: Two PCP visits annually This patient has the following education goals: CKD Zones Patient will meet these goals by: 03/22/2024 (describe interventions done by PCC) Personal health goal Comment on above: Formatting of this n ote might be different from the original. Get billing/insurance claims cleared up for previous hip surgery in June 2022 Functional Status Date Assessment Result Facility 09-14-2024 Total score [AUDIT-C] 1 09/15/19 5:52 PM EDT User, Sk[facility] 09-14-2024 How often to you hav e a drink containing alcohol? Monthly or less 09/14/2024 5:52 PM EDT User, Mychart Monthly or less [facility] 09-14-[address] inks containing alcohol do you have on a typical day? 1 or 2 09/14/2024 5:52 PM EDT [facility] 09-14-2024 How often do you hav e 6 or more drinks on 1 occasion? Never 09/14/2024 5:52 PM EDT User, Mycmaydat Never [facility] 07-28-2023 Are you deaf, or do you have serious difficulty hearing No 07/28/2023 9:41 AM Dionna Galindo RN No [facility] 07-28-2023 Are you blind, or do you have serious difficulty seeing, even when wearing glasses No 07/28/2023 9:41 AM Dionna Galindo RN No [facility] 07-28-2023 Do you have serious difficulty walking or climbing stairs No 07/28/2023 9:41 AM Dionna Galindo RN No [facility] 07-28-2023 Do you have difficul ty dressing or bathing No 07/28/2023 9:41 AM Dionna Galindo RN No [facility] 07-28-2023 Because of a physica l, mental, or emotional condition, do you have difficulty doing errands alone such as visiting a physician's office or shopping Yes 07/28/2023 9:41 AM Dionna Galindo RN Yes [facility] 12-01-2022 Functional Status 4 [facility] 12-01-2022 Functional Status [facility] 12-01-2022 Functional Status [facility] 12-01-2022 Functional Status [facility] 12-01-2022 Functional Status [facility] 12-01-2022 Functional Status Skin Care Prev entative Intervention(s) heel(s)s elevated [facility] 11-30-2022 Functional Status [facility] 11-30-2022 Functional Status [facility] 11-30-2022 Functional Status [facility] 11-30-2022 Functional Status Pt's i s unavailable to assist her physically as he is [address] [facility] 11-29-2022 Functional Status Hospital bed [facility] 11-29-2022 Functional Status [facility] 11-28-2022 Functional Status [facility] 11-28-2022 Functional Status Single level home [facility] 11-28-2022 Functional Status Sensory Deficits None [facility] 11-27-2022 Functional Status Standard Safet y ID band on, Allergy Band on, Call device within reach, Bed in low position, Wheels locked, Safety level maintained [facility] 11-26-2022 Functional Status Awake [facility] 11-26-2022 Functional Status abdominal binder on [facility] 11-26-2022 Functional Status [facility] 11-26-2022 Functional Status [facility] 11-12-2022 Functional Status Sensory Deficits None [facility] Mental Status Date Assessment Result Facility 07-28-2023 Because of a physica l, mental, or emotional condition, do you have serious difficulty concentrating, remembering, or making decisions No 07/28/2023 9:41 AM Dionna Galindo RN [facility] 12-01-2022 Mental Status [facility] 12-01-2022 Mental Status Orientation Oriented x 4 [facility] 12-01-2022 Mental Status [facility] 11-30-2022 Mental Status [facility] 11-27-2022 Mental Status Orientation Oriented x 4 [facility] 11-26-2022 Mental Status Orientation Oriented x 4 [facility] 11-26-2022 Mental Status [facility] 11-26-2022 Mental Status Orientation Asse ssment Oriented x 4 [facility] Clinical Notes 12-17-2018 to 01-27-2025 Patient InstructionsSnow Stratton MD - 11/23/2024 12:02 PM Amanda Calle APRN.[facility] - 11/15/2024 1:20 PM EDAmanda De Dios APRN.[facility] - 11/15/2024 1:20 PM EDTPatient Instructions Note Date & Type Note Facility 01-27-2025 Note HNO ID: [id number] Author: MARVIN MORELOS OTR/Renny Service: ? Author Type: Occupational Therapist Type: Progress Notes Filed: 01/27/2025 14:40 Note Text: Episode Visit Count: 2 Therapist That Will Accept/Oversee The Plan Of Care: Chani Morelos Start of Care Date: 01/24/25 Onset Date: 12/15/24 Plan of Care Certification Date: 01/24/25 Next Certification Due Date: 04/24/25 Patient Identified by Name and Date of : Yes REHABILITATION AND SPORTS THERAPY OCCUPATIONAL THERAPY TREATMENT NOTE ASSESSMENT: Mary Jane De Paz tolerated the session with decreased symptoms of pain. She demonstrated good understanding of precautions. At this time, patient instructed to use orthosis time study statistician except for brief hygiene, or sitting on the couch when not active. Defer range of motion exercises until next session. The patient will continue to benefit from ongoing skilled occupational therapy to progress toward set goals. Current Frequency: 1x/week Duration: 12 weeks Total Number of Visits Planned: 12 Planned Treatment Interventions: Therapeutic exercise (32387), Therapeutic activities (45115), Manual therapy (71598), Neuromuscular re-education (15580), Self-intermediate management (35338), Patient/Family/Caregiver Education PLAN FOR NEXT VISIT: Patient to contact OT for orthosis modifications as needed. To see OT after next appointment with Dr. Higgins. SUBJECTIVE: Followed up with Dr. Higgins prior to OT today. Finger extensors intact. Referred for high volar resting splint to limit pronation/ supination. Wrist is very sore. Functional Limitations: lifting, twisting, carrying, gripping, cooking Pain: Pain Pain Level: 5 Pain Location: Wrist - Right Description: Radiating, Sharp, Sore Frequency: Continuous Best Pain Level: 0 Post Treatment Pain Post Treatment Pain Level: Better OBJECTIVE MEASURES WITH LEVEL OF FUNCTION: Hand Skin / Wound: Scar Scar: Non-tender Edema Location: Right wrist Edema Description: Mild Elbow AROM: WFL Wrist AROM: Right Limitation Right Hand AROM: WFL Left Hand AROM: WFL Strength: (Testing not indicated) Sensation: Denies tingling or numbness Dexterity/Coordination: Observed to be functional Clinical Presentation: Ulnar Drift (mild right hand: extensor tendon lag of right index, middle and little fingers with wrist in extension.) UE AROM Right Hand AROM: WFL Left Hand AROM: WFL TREATMENT: Self-Senior Living Management: 1: Skilled instruction provide re: diagnosis/ precautions. The importance of minimizing forearm rotation was reinforced to patient. Recommended holding arm with forearm in neutral position. 2: Skilled instruction re: ROM of uninvolved joints - shoulder, elbow , IP's within confines of orthosis 3: Skilled instruction provided re: symptom management including use of modalities and use of mini vibrating ball to provide vibration and deep pressure input to support muscle relaxation , Patient reported decreased pain. OT provided information for patient to obtain online. Skilled Intervention: Reviewed patient specific diagnosis in relation to activities of daily living/home management. Activity progression based on professional judgement. Custom orthosis: L 3808 WHFO w/out joints (long opponens, thumb spica, intrinsic gutter, resting, anti-spasticity, EXOS, dorsal block) (MP/wrist extending to just proximal to elbow) Custom orthosis to provide immobilization, protection and support of left wrist/ metacarpal phalangeal's to promote healing, OT provided patient with education/ written instructions for orthosis care and precautions., and Pt practiced orthosis application, donning on/off while under OT's supervision.. Patient was instructed in care of orthosis and wearing schedule time study technician except bathing.. Skilled Intervention: Clinical knowledge and skills required for custom orthotic fabrication and wearing schedule Patient/caregiver was educated in correct method for donning/doffing orthosis as well as wear and care of orthosis. Patient/Family/Caregiver Education: Precautions, purpose and use of orthosis Discussed management of any symptoms related to wearing the orthosis Billing Self-Care/Home Management Treatment Minutes: 10 * L 3808 WHFO w/out joints (long opponens, thumb spica, intrinsic gutter, resting, anti-spasticity, EXOS, dorsal block) Quantity: 1 Fabrication time for custom splint (minutes): 20 Skilled Treatment Time Minutes (timed and untimed codes): 30 Total Session Time (minutes): 30 Session Start Time : 1150 Session Stop Time : 1220 SHAKA Benedict/Renny,T [facility] 01-17-2025 Note HNO ID: [id number] Author: PEYTON MONTAGUE Cast Tech Service: ? Author Type: Synthetic Staple Extruder Type: Progress Notes Filed: 01/17/2025 11:57 Note Text: PT ASSESSMENT - CASTING ROOM Mary Jane presents for cast removal and Application of a Titan wrist brace. Timothy Piña [facility] 01-17-2025 Note HNO ID: [id number] Author: LORETA PANDEY PA-C Service: ? Author Type: Physician Industrial/Organizational Psychologist Type: Progress Notes Filed: 01/17/2025 12:01 Note Text: HAND SURGERY POST-OP NOTE Surgical Hx: Spinal cord stimulator (no MRI) Hx L IF DIP arthrodesis and bilat CTR 2015 bilat 2nd and 3rd MCP pyrocarbon arthroplasties, doing well 2018 Haidet-L DeQR 2022 R DRF Tx nonop R ulnar abutment w/ 3 mm positive ulnar variance, small lunate and ulnar head cysts Keys-multiple ulnocarpal inj, last 04/14/24 12/06/24 R Michelle w/ ECU stabilization 12/10/24 fall, R wrist injury, XRs neg 01/05/2025 cast change Interval Hx: Patient is 6 weeks post op. - Cast was removed today. - Reports pain on the dorsal aspect of the wrist and at the base of the fingers. - Noticed a new issue with the little finger popping up when trying to bring fingers together; denies this occurring before or immediately after surgery. - Able to make a fist and perform some wrist movements, but reports stiffness and mild aching. - Expresses concern about the cost of therapy and prefers to minimize visits. Exam: Right wrist Incision is fully healed No signs of infection Neurovascularly intact Able make a full fist Slight hyperextension of ring finger when extending all fingers Able to retropulse all fingers, struggles with small, couldn't quite feel small extensor firing No extension lag noted at any of the fingers No extensor tendon subluxations Able to flex and extend with no pain Almost dull prono-supination with no pain or instability Imaging: Images taken today were personally reviewed and interpreted, these revealed 3 views of right wrist demonstrating stable ulna resection. Assessment/Plan: (Z98.890) Post-operative state (primary encounter diagnosis) 1. Post-operative state (Z98.890) - Begin occupational therapy to address stiffness and improve range of motion; patient advised to attend initial sessions and request home exercises due to cost concerns. - Provided wrist brace to be worn for heavy activities for the next 1-2 weeks only; instructed not to wear it continuously or beyond this period. - Advised to gradually increase use of the wrist, avoiding heavy lifting initially, and to let pain guide activity levels. - will keep an eye on the ring finger concerns, but per patient this has already slighty inproved since 2 days ago. - Follow-up in 6 weeks. Loreta Pandey PA-C Hand Surgery The above reflects my independent exam and review. I saw and examined the patient myself personally. Parts of the HPI, ROS, exam and impression/plan may have been copied from my personal previous clinical note and remain pertinent. Current changes have been made and documented today. Other parts or date were deleted if not relevant for today. Plan as outlined. *This note was produced using speech recognition software and may contain errors related to that system including but not limited to punctuation, spelling, grammar, gender, and words or phrases that may be inappropriate. [facility] 01-05-2025 Note HNO ID: [id number] Author: PEYTON MONTAGUE Cast Tech Service: ? Author Type: Synthetic Staple Extruder Type: Progress Notes Filed: 01/05/2025 13:18 Note Text: PT ASSESSMENT - CASTING ROOM Mary Jane presents for cast removal and Application of cast. Applied short cast: to Right arm Patient has been instructed in Care of cast.. Peyton Montague, Timothy Tech [facility] 12-28-2024 Note HNO ID: [id number] Author: SNOW STRATTON MD Service: ? Author Type: Physician Type: Progress Notes Filed: 12/28/2024 12:38 Note Text: Chief Complaint Patient presents with: Blood Pressure Check Behavioral Problem I have communicated my name and active licensure. The patient's identity and physical location were verified at the time of this visit. Either the patient or their legal student services representative has been informed of the risks and benefits of -- and alternatives to -- treatment through a remote evaluation and consents to proceed with the evaluation remotely. BARBARA De Paz is a 74 year old female who is contacted today for a virtual/telemedicine visit. This is an established patient of Dr. Christine Morgan, KULWANT.CD REACTOR OPERATOR. States Patient notes feeling better on Ritalin for 2 reasons. She has better balance , although she cannot explain the reasoning And she has been able to focus better. Over all ritalin has been helping and she would like to continue it. Had a surgery of the elbow in the past. Past medical history, appointments, medications, allergies reviewed 12/28/2024 Previous Medical History PAST MEDICAL HISTORY Diagnosis Date Allergic rhinitis Arthritis [facility] orthopedics, knee Asthma ([facility]) CKD (chronic kidney disease) 11/01/2018 Class 3 severe obesity with serious comorbidity and body mass index (BMI) of 40.0 to 44.9 in adult ([facility]) 08/19/2018 Coronary artery disease 10/28/[address] Salazar Fracture of right hip ([facility]) GERD (gastroesophageal reflux disease) History of transfusion HTN (hypertension) Hypothyroidism Mixed hyperlipidemia NIDDM (non-insulin dependent 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) MARIBEL on CPAP CPAP 9Cm Osteoarthritis of hip Renal lesion 01/15/2015 Suggest renal US every 1-2 years per PCP or nephro. Snoring Type 2 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 with hyperglycemia, with long-term current use of insulin ([facility]) 1999 Previous Surgical History PAST SURGICAL HISTORY Procedure Laterality Date ABDOMINAL SURGERY HX COLONOSCOPY 11/05/2016 Tammi- divertiuclosis, internal hemorrhoids, repeat in 5 years COLONOSCOPY 04/02/2022 repeat in 5 years due to reported prior history of polyps COSMETIC ASSESSMENT EGD 11/05/2016 Tammi- gastritis EGD 09/08/2018 /Gastritis EGD 04/02/2020 EGD 04/02/2022 EYE SURGERY HX Bilateral cataract extraction 2009' GASTRECTOMY,PART DISTAL;W/GASTRODUODENOSTO GASTRIC BYPASS HX 12/13/2018 Laparoscopic Samina-en-Y gastric bypass HIP SURGERY HX Screws replaced JOINT REPLACEMENT HX LAPAROSCOPY DIAGNOSTIC 07/26/2023 internal hernias and mesenteric adhesion OOPHORECTOMY PARTIAL OR TOTAL PAST SURGICAL HISTORY OF 2009 hemmroidectomy/sphincterectomy - Dr Nichole PAST SURGICAL HISTORY OF 2008 total left knee replacement PAST SURGICAL HISTORY OF 2003 partial right knee replacement PAST SURGICAL HISTORY OF 1990 total hysterectomy PAST SURGICAL HISTORY OF 2010 lDr Mansoor - Par[place]eft elbow fracture - traumatic. radial head replacement PAST SURGICAL HISTORY OF Bilateral 2016 hand surgery PAST SURGICAL HISTORY OF Left RELEASE CONTRACTURE DEQUERVAINS S INSERT PINN METAL NTRL HIP Right 11/17/2021 SKIN BIOPSY HX TOTAL HIP REPLACEMENT Right TOTAL KNEE REPLACEMENT Right 09/15/2022 TUBAL LIGATION HX VAGINAL HYSTERECTOMY Family History FAMILY HISTORY Problem Relation Age of Onset other (polio) Mother Diabetes Father other (Squamous cell ca) Father other (renal cell ca) Father 1999 other (htn) Father other (Thyroid Cancer) Sister other (thyroid disease) Sister ca other (renal cell ca) Brother 2010 Obesity Paternal Grandmother Obesity Daughter Thyroid Daughter Diabetes Daughter Anesthesia Problems No Family History Patient Allergies ALLERGIES No Known Allergies Current Medications Current Outpatient Medications on File Prior to Visit Medication Sig biotin 5 mg tab Take 1 tablet by mouth once daily. FLUoxetine (PROZAC) 40 mg capsule Take 1 capsule by mouth two times a day. levothyroxine (SYNTHROID) 100 mcg tablet Take 1 tablet by mouth once daily. esomeprazole (NEXIUM) 40 mg capsule TAKE ONE CAPSULE BY MOUTH twice daily. dulaglutide (TRULICITY) 0.75 mg/0.5 mL pen injector Inject 0.75 mg subcutaneously one time a week. Inject 0.75 mg once weekly lisinopril (ZESTRIL) 20 mg tablet Take 1 tablet by mouth once daily. atorvastatin (LIPITOR) 20 mg tablet Take 1 tablet by mouth daily at bedtime. For cholesterol. famotidine (PEPCID) 20 mg tablet Take 1 tablet by mouth two times a day as needed (GERD). (Patient taking differently: Take 20 mg by mouth two times a day.) buPROPion XL (WELLBUTRIN XL) 300 mg 24 hr tablet Take 1 tablet by mouth once daily. traZODone (DESYREL) 100 mg tablet Take 2 tablets by mouth daily at bedtime. Blood-Glucose Sensor (FREESTYLE JAUN 3 PLUS SENSOR) guido 1 Each every 2 weeks. CHANGE sensor every 1 (more content not included)... [facility] 12-22-2024 Note HNO ID: [id number] Author: ISH HIGGINS MD Service: ? Author Type: Physician Type: Progress Notes Filed: 12/22/2024 08:24 Note Text: Hand Clinic Post-op Note Surgical Hx: Spinal cord stimulator (no MRI) Hx L IF DIP arthrodesis and bilat CTR 2014 bilat 2nd and 3rd MCP pyrocarbon arthroplasties, doing well 2018 Haidet-L DeQR 2022 R DRF Tx nonop R ulnar abutment w/ 3 mm positive ulnar variance, small lunate and ulnar head cysts Keys-multiple ulnocarpal inj, last 04/14/24 12/06/24 R Darrach w/ [facility]U stabilization 12/10/24 fall, R wrist injury, XRs neg Interval Hx: The patient is a 74-year-old female presenting for evaluation of right wrist pain and cast management following a fall. Wrist Pain: - Recent fall on 01/09, resulting in increased wrist pain. - Pain radiates to the elbow and is present in areas that were not previously painful. - Requests additional pain medication. - Denies significant pain when making a fist or during specific movements. - Reports cold hands consistently. Exam: - Musculoskeletal: - Right Wrist and Hand: - Well-healed ulnar incision; full sensation around the incision and over the dorsal cutaneous branch of the ulnar nerve. - Full fist formation; full retropulsion of the index, long, ring, and small fingers. - Mild tenderness over the volar scaphoid tubercle; no tenderness in the anatomical snuffbox. - Minimal pronation and supination without crepitus. - FPL and APL firing intact. Imaging: R wrist XRs 3 views, no new frx Assessment/Plan: (Z98.890) Post-operative state (primary encounter diagnosis) New and/or prior imaging was reviewed with the pt 1. Post-operative state (Z98.890) - Recent fall on resulted in increased wrist pain; X-rays from reviewed and compared to prior imaging, no new fractures identified. - Exam: well-healed ulnar incision, full sensation around incision and over dorsal cutaneous branch of ulnar nerve, minimal pronation and supination without crepitus, no tenderness in snuffbox, mild tenderness over volar scaphoid tubercle, full retropulsion of index, long, ring, and small fingers. - Explained that increased pain is likely due to recent trauma to a surgically treated area; no evidence of surgical disruption. - Applied new cast. - Advised no heavy lifting and to continue finger movements as tolerated. - Follow-up in [place] in 2 weeks for cast change, then again in 4 weeks. I also sent some pain meds Ish Higgins MD Hand Surgery *The above reflects my independent exam and review. I saw and examined the patient myself personally. Parts of the HPI, ROS, exam, and impression/plan may have been copied from my previous clinical note and remain pertinent. Current changes have been made and documented today. Other parts or date were deleted if not relevant for today. Plan as outlined.* *This note was produced using speech recognition software and may contain errors related to that system including but not limited to punctuation, spelling, grammar, gender, and words or phrases that may be inappropriate.* *The patient consented to the use of ambient AI software for draft documentation of the visit consistent with [facility]?s Notice of Privacy Practices.* [facility] 12-21-2024 Note HNO ID: [id number] Author: KIM LYNNE Tech Service: ? Author Type: Child Welfare Consultant Type: Progress Notes Filed: 12/22/2024 08:24 Note Text: Mary Jane presents for Application of cast. Applied/Re-applied Short Arm Cast to Right wrist The patient and/or family member have been instructed in the following: Do not get cast wet, or place/stick anything inside the cast. The patient was instructed to be NWB. Care of cast. Patient to keep follow up appointment as scheduled. Yadi Zheng [facility] 12-15-2024 Note HNO ID: [id number] Author: SAY BLAKELY Tech Service: ? Author Type: Child Welfare Consultant Type: Progress Notes Filed: 12/15/2024 14:21 Note Text: The patient presents for a cast. Applied a high short arm cast to the patient's right wrist. The patient has been instructed in the following: Do not get cast wet, or place/stick anything inside the cast. The patient was instructed to be NWB and also in the care of cast.. The patient was instructed to keep their follow up appointment as scheduled. Say Blakely Yadi December 15, 2024 2:21 PM [facility] 12-15-2024 Note HNO ID: [id number] Author: LORETA PANDEY PA-C Service: ? Author Type: Physician Industrial/Organizational Psychologist Type: Progress Notes Filed: 12/15/2024 13:34 Note Text: HAND SURGERY POST-OP NOTE Surgical Hx: Spinal cord stimulator (no MRI) Hx L IF DIP arthrodesis and bilat CTR 2015 bilat 2nd and 3rd MCP pyrocarbon arthroplasties, doing well 2018 Haidet-L DeQR 2022 R DRF Tx nonop 12/06/2024 right direct with ECU stabilization Interval Hx: Patient is 9 days post op. She is doing well. Admits to experiencing some pain but has been taking Percocet as needed as well as Tylenol. Exam: Right wrist Incision healing nicely, no signs of infection. Sutures intact. Dorsal cutaneous nerve intact, median, ulnar and radial nerve distribution intact. Able to make a fist with no pain. Able to very gently flex and extend at the wrist without major discomfort. No instability noted of the ulna. Able to retropulse all 5 fingers of table. Imaging: Images taken today were personally reviewed and interpreted, these revealed 3 views of right wrist demonstrating stable ulna resection. 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 At this point she will transition into a hide short arm cast. She will be in this for total of 6 weeks postop. She will keep the cast dry and clean at all times. Sutures were removed today, she tolerated well. Will be nonweightbearing. Encouraged to work on motion of her fingers and to make a fist. I advised to feel free to request a refill of her pain medication when needed. She is unable to take NSAIDs . She will come back in 2 weeks for tech visit at [facility]. Follow-up in [address] Higgins at [facility] Patient was also evaluated by Dr Ish Pandey PA-C Hand Surgery The above reflects my independent exam and review. I saw and examined the patient myself personally. Parts of the HPI, ROS, exam and impression/plan may have been copied from my personal previous clinical note and remain pertinent. Current changes have been made and documented today. Other parts or date were deleted if not relevant for today. Plan as outlined. *This note was produced using speech recognition software and may contain errors related to that system including but not limited to punctuation, spelling, grammar, gender, and words or phrases that may be inappropriate. [facility] 12-06-2024 Note HNO ID: [id number] Author: ISH BERMEO MD Service: Anesthesiology Author Type: Anesthesiologist Type: Anesthesia Procedure Notes Filed: 12/06/2024 07:32 Note Text: ANESTHESIOLOGY PROCEDURE NOTE Peripheral Nerve Block General Information Procedure Start Time/Medication Administration: 12/06/2024 7:27 AM Procedure End time: 12/06/2024 7:30 AM Patient location during procedure: induction room Timeout Performed Pre-procedure: timeout performed Consent Obtained: Yes Patient identity confirmed: arm band and patient Reason for block: post-op pain management/at surgeon's request Staffing Anesthesiologist: Ish Bermeo MD Performed by: anesthesiologist Preparation Sterility Preparation: hand hygiene performed prior to procedure, sterile gloves, drapes, and procedure tray, surgical cap used, mask used, sterile drape used during line insertion, skin prep agent completely dried prior to procedure Site Prep: Chloraprep Pre-Procedure Neuro Exam Location: RUE Sensory: intact Motor: intact Procedure Details Block Type Patient Position: supine Monitoring: Pulse OX, EKG and NIBP Upper Extremity: axillary Laterality: right Injection Technique: single-shot Ultrasound Guided: Yes Image in Chart: Yes Local Infiltration: Yes Needle Needle Gauge: 21 G Needle Length: 51 mm Needle Localization: ultrasound Assessment Injection assessment: negative aspiration, no paresthesia on injection, incremental injection and local visualized surrounding nerve on ultrasound Paresthesia: none Post-Procedure Neuro Exam Expected Regional Anesthesia: Yes Medications Administered dexamethasone sodium phosphate injection (DECADRON) - peripheral nerve block 10 mg - 12/06/2024 7:27:00 AM ropivacaine (PF) 5 mg/mL (0.5 %) injection (NAROPIN) - peripheral nerve block 30 mL - 12/06/2024 7:27:00 AM SIGNATURE: Ish Bermeo MD PATIENT NAME: Mary Jane De Paz DATE: December 06, 2024 TIME: 7:31 AM CSN: [id number] [facility] 11-23-2024 Instructions Snow Stratton MD - 11/23/2024 12:15 PM EDT We discussed your memory concerns and related symptoms: - You reported some improvement in memory and focus with Ritalin (Vyvanse), including better recall during interrupted conversations. However, you also experienced headaches and nausea. - We decided to increase your Ritalin dose to 20 mg daily to see if it provides further benefit. This prescription has been sent to your [facility] pharmacy in [facility]. - We will monitor for any side effects, including worsening headaches or nausea. If these occur, please let me know, and we will reassess your treatment plan. We discussed starting Aricept (donepezil): - Aricept is a medication used to help with memory and focus in Alzheimer s-type dementia. - You agreed to try Aricept, and I have sent the prescription to your [facility] pharmacy in [facility]. - Be aware that Aricept may cause decreased appetite. Please monitor your symptoms and let me know if this becomes a concern. We discussed your nausea, weight loss, and appetite changes: - Your nausea and weight loss are likely related to Trulicity, which you are taking for diabetes. These are known side effects of the medication. - You mentioned that your appetite is reduced, but you are not unhappy with your weight loss. - If your nausea worsens or persists, I recommend seeing a educational institution president for further evaluation. We discussed your family history of Alzheimer s disease: - You reported a family history of Alzheimer s on your father s side. - A new blood test for Alzheimer s markers is expected to become available in the coming months. We will revisit this option when it is accessible. Follow-up plan: - I will see you in one month to assess how you are responding to the increased Ritalin dose and Aricept. - Please contact me sooner if you experience worsening symptoms, significant side effects, or if you have any concerns. documented in this encounter [facility] 11-23-2024 Note HNO ID: [id number] Author: SNOW STRATTON MD Service: ? Author Type: Physician Type: Progress Notes Filed: 11/23/2024 18:15 Note Text: [facility] Initial Consult Mary Jane De Paz is a 74 year old year old female who comes for Comprehensive Geriatric Assessment. Pt accompanied by: Self. Caregivers involved in care: HPI: Mary Jane De Paz is a 74-year-old female with a history of essential tremor, depression, and insomnia, and a complex past medical history who is presenting with concerns about worsening memory loss. Mary Jane reports a progressive decline in memory over several years, had her first neuropsychological testing in 2016, which has recently worsened, causing significant concern. She notes difficulty recalling words and maintaining the flow of conversation, often losing her train of thought during pauses. She also experiences challenges with driving, frequently needing to overthink familiar routes and occasionally forgetting the correct medical center to visit. Additionally, she reports a short temper, leading to occasional outbursts at her , who is 87 years old. Mary aJne lives with her and describes their relationship as generally good, despite occasional disagreements. She manages her own medications but sometimes confuses morning and evening doses. She also handles the household finances but has had some late payments due to forgetfulness. Most of her bills are automatically deducted, which she finds helpful. She has not had any recent fender benders or citations and denies any issues with stop signs. She performs her own laundry and has a rug cleaner helper who visits every two weeks. She cooks occasionally but sometimes feels overwhelmed by the task. She is able to bathe and dress herself independently. Mary Jane has a history of essential tremor, which she believes may contribute to her frequent dropping of objects and difficulty with fine motor skills, such as buttoning clothes. She has had several falls in the past two years, resulting in injuries including a broken rib, foot, and hip. She attributes these falls to various causes, including losing control of her feet, tripping on a curb, and an incident involving her . She has not had an MRI of her brain due to a metal stimulator in her back, which was implanted to address incontinence following a sphincter injury during hemorrhoid surgery. She reports that the stimulator is not effective and is considering its removal. She has had neuropsychological evaluations and has been taking Noriva and Prevagen, which she believes have provided some cognitive benefits. Mary Jane has a family history of cancer, including pancreatic and kidney cancer. She has a lesion on her pancreas and a possible spot on her kidney, which are being monitored. She underwent gastric bypass surgery, resulting in a weight loss of nearly 100 pounds, and no longer experiences sleep apnea. She takes trazodone for sleep but reports frequent awakenings and occasional afternoon naps. She is socially active but less so since moving to [place] to be closer to her daughter. She expresses feelings of jealousy and isolation due to her daughter's close relationship with her own daughter. Mary Jane is currently taking Prozac and Wellbutrin for depression and is open to adjusting her medication regimen to improve her symptoms. She denies any history of ADHD or use of ADHD medications. She is interested in exploring potential treatments for her cognitive symptoms and is willing to undergo further testing to determine if she has Alzheimer's disease. November 23, 2024 Mary Jane De Paz is a 74-year-old female with a history of essential tremor, depression, insomnia, and declining memory, presenting for follow-up on Ritalin and evaluation of new onset headaches and nausea. Mary Jane was started on Ritalin for suspected attention deficit and has been off the medication for a couple of weeks due to running out. She reports noticing a slight improvement in her ability to recall words and maintain the flow of conversations, stating that it doesn't take as long to remember what she was saying during interrupted conversations. She also notes a little more intention in her actions. However, she has experienced headaches and nausea, which she does not attribute to the medication as she has not taken it for almost a week. The headaches, described as sharp and stabbing, occurred mostly in the past week, with at least three episodes in one week. She denies a history of frequent headaches. Mary Jane also reports weight loss, decreased appetite, and early satiety. She is currently taking Trulicity for diabetes management, which she believes may be contributing to her nausea and weight loss. She was off Trulicity for a week due to a delay in receiving her medication but resumed it a few days ago. (more content not included)... [facility] 11-23-2024 History of Present illness Narrative [facility] Initial Consult Mary Jane De Paz is a 74 year old year old female who comes for Comprehensive Geriatric Assessment. Pt accompanied by: Self. Caregivers involved in care: HPI: Mary Jane De Paz is a 74-year-old female with a history of essential tremor, depression, and insomnia, and a complex past medical history who is presenting with concerns about worsening memory loss. Mary Jane reports a progressive decline in memory over several years, had her first neuropsychological testing in 2015, which has recently worsened, causing significant concern. She notes difficulty recalling words and maintaining the flow of conversation, often losing her train of thought during pauses. She also experiences challenges with driving, frequently needing to overthink familiar routes and occasionally forgetting the correct medical center to visit. Additionally, she reports a short temper, leading to occasional outbursts at her , who is 87 years old. Mary Jane lives with her and describes their relationship as generally good, despite occasional disagreements. She manages her own medications but sometimes confuses morning and evening doses. She also handles the household finances but has had some late payments due to forgetfulness. Most of her bills are automatically deducted, which she finds helpful. She has not had any recent fender benders or citations and denies any issues with stop signs. She performs her own laundry and has a rug cleaner helper who visits every two weeks. She cooks occasionally but sometimes feels overwhelmed by the task. She is able to bathe and dress herself independently. Mary Jane has a history of essential tremor, which she believes may contribute to her frequent dropping of objects and difficulty with fine motor skills, such as buttoning clothes. She has had several falls in the past two years, resulting in injuries including a broken rib, foot, and hip. She attributes these falls to various causes, including losing control of her feet, tripping on a curb, and an incident involving her . She has not had an MRI of her brain due to a metal stimulator in her back, which was implanted to address incontinence following a sphincter injury during hemorrhoid surgery. She reports that the stimulator is not effective and is considering its removal. She has had neuropsychological evaluations and has been taking Noriva and Prevagen, which she believes have provided some cognitive benefits. Mary Jane has a family history of cancer, including pancreatic and kidney cancer. She has a lesion on her pancreas and a possible spot on her kidney, which are being monitored. She underwent gastric bypass surgery, resulting in a weight loss of nearly 100 pounds, and no longer experiences sleep apnea. She takes trazodone for sleep but reports frequent awakenings and occasional afternoon naps. She is socially active but less so since moving to [place] to be closer to her daughter. She expresses feelings of jealousy and isolation due to her daughter's close relationship with her own daughter. Mary Jane is currently taking Prozac and Wellbutrin for depression and is open to adjusting her medication regimen to improve her symptoms. She denies any history of ADHD or use of ADHD medications. She is interested in exploring potential treatments for her cognitive symptoms and is willing to undergo further testing to determine if she has Alzheimer's disease. November 23, 2024 Mary Jane De Paz is a 74-year-old female with a history of essential tremor, depression, insomnia, and declining memory, presenting for follow-up on Ritalin and evaluation of new onset headaches and nausea. Mary Jane was started on Ritalin for suspected attention deficit and has been off the medication for a couple of weeks due to running out. She reports noticing a slight improvement in her ability to recall words and maintain the flow of conversations, stating that it doesn't take as long to remember what she was saying during interrupted conversations. She also notes a little more intention in her actions. However, she has experienced headaches and nausea, which she does not attribute to the medication as she has not taken it for almost a week. The headaches, described as sharp and stabbing, occurred mostly in the past week, with at least three episodes in one week. She denies a history of frequent headaches. Mary Jane also reports weight loss, decreased appetite, and early satiety. She is currently taking Trulicity for diabetes management, which she believes may be contributing to her nausea and weight loss. She was off Trulicity for a week due to a delay in receiving her medication but resumed it a few days ago. She notes that the nausea started before resuming Trulicity but has been persistent. She has been on Trulicity for over a year and is not unhappy with her weight loss, stating that she could use a little more. Mary Jane has a family history of Alzheimer's disease, with her grandfather having been diagnosed. She expresses willingness to try new treatments, including Aricept, if it could provide relief from her symptoms. She is also under the care of an front office java developer and sees her primary care physician regularly. She has not been evaluated by a educational institution president for her nausea and weight loss. Any Family History of dementia? Yes Are you or your spouse a ? No Long-term Memory: Difficulty remembering distant events from the past like childhood, previous employment, wedding: NO Behavioral/personality: Withdrawn/Depressed: NO Crying spells: NO Anxious: NO History of aggression: NO History of irritability: NO Apathy:NO Recent changes in weight or appetite: NO Alcohol or Drug use: NO Smoking? NO Sleep: Do you snore loudly (louder than talking or loud enough to be heard through closed doors)? Since weight loss she has not needed the medication Are you restless when you sleep at night? NO Do you have problems falling a sleep? NO Do you have problems staying a sleep? NO Social History: Primary language: Icelandic Marital Status: Living situation: Home w/ Spouse Socially engaged? (participates in activities such as clubs, nondenominational, community center, sports, games, visiting friends/relatives, etc?): YES Caregiver [place] and Stress Are your feeling overwhelmed? NO Do you have concerns about your own health? NO Are you neglecting your own needs? NO Do you have financial concerns? NO Do your fear loss of employment? NO Do you have concerns about verbal/physical abuse? NO Do you feel that you are still capable of taking care of your relative? NO Are you willing to continue being in the caregiver role? NO B-ADLs: (I=independent,A=assistance,D=depe ndent) ?Bathing: I, Dressing: I, Toileting: I, Transferring:I, Continence: I, Feeding: I, I-ADLs: Ability to use phone: I, Shopping: I, Cooking: I, Housekeeping: I, Laundry: I, Transportation:I, beginning to have issues with directions. Forgetting to drive. Medications: {I, screwed up a few times. Handle Finances: I. She has had late payments as she forgot them PMHx: PAST MEDICAL HISTORY Diagnosis Date Allergic rhinitis Arthritis [facility], knee Asthma ([facility]) CKD (chronic kidney disease) 11/01/2018 Class 3 severe obesity with serious comorbidity and body mass index (BMI) of 40.0 to 44.9 in adult ([facility]) 08/19/2018 Coronary artery disease 10/28/[address] Salazar Fracture of right hip ([facility]) GERD (gastroesophageal reflux disease) History of transfusion HTN (hypertension) Hypothyroidism Mixed hyperlipidemia NIDDM (non-insulin dependent 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) MARIBEL on CPAP CPAP 9Cm Osteoarthritis of hip Renal lesion 01/15/2015 Suggest renal US every 1-2 years per PCP or nephro. Snoring Type 2 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 with hyperglycemia, with long-term current use of insulin ([facility]) 1999 PSHx: PAST SURGICAL HISTORY Procedure Laterality Date ABDOMINAL SURGERY HX COLONOSCOPY 11/05/2016 Tammi- divertiuclosis, internal hemorrhoids, repeat in 5 years COLONOSCOPY 04/02/2022 repeat in 5 years due to reported prior history of polyps COSMETIC ASSESSMENT EGD 11/05/2016 Tammi- gastritis EGD 09/08/2018 /Gastritis EGD 04/02/2020 EGD 04/02/2022 EYE SURGERY HX Bilateral cataract extraction 2009's GASTRECTOMY,PART DISTAL;W/GASTRODUODENOSTO GASTRIC BYPASS HX 12/13/2018 Laparoscopic Samina-en-Y gastric bypass HIP SURGERY HX Screws replaced JOINT REPLACEMENT HX LAPAROSCOPY DIAGNOSTIC 07/26/2023 internal hernias and mesenteric adhesion OOPHORECTOMY PARTIAL OR TOTAL PAST SURGICAL HISTORY OF 2009 hemmroidectomy/sphincterectomy - Dr Nichole PAST SURGICAL HISTORY OF 2008 total left knee replacement PAST SURGICAL HISTORY OF 2003 partial right knee replacement PAST SURGICAL HISTORY OF 1990 total hysterectomy PAST SURGICAL HISTORY OF 2010 lDr Mansoor - [place] elbow fracture - traumatic. radial head replacement PAST SURGICAL HISTORY OF Bilateral 2016 hand surgery PAST SURGICAL HISTORY OF Left RELEASE CONTRACTURE DEQUERVAINS S INSERT PINN METAL NTRL HIP Right 11/17/2021 SKIN BIOPSY HX TOTAL HIP REPLACEMENT Right TOTAL KNEE REPLACEMENT Right 09/15/2022 TUBAL LIGATION HX VAGINAL HYSTERECTOMY Home Meds: Prior to Admission medications : Medication biotin 5 mg tab, Sig Take 1 tablet by mouth once daily., Start Date 09/21/24, End Date , Taking? , Authorizing Provider Christine Morgan APRN.CD REACTOR OPERATOR Medication FLUoxetine (PROZAC) 40 mg capsule, Sig Take 1 capsule by mouth two times a day., Start Date 08/30/24, End Date , Taking? , Authorizing Provider Christine Morgan APRN.CD REACTOR OPERATOR Medication levothyroxine (SYNTHROID) 100 mcg tablet, Sig Take 1 tablet by mouth once daily., Start Date 08/30/24, End Date , Taking? , Authorizing Provider Christine Morgan APRN.CD REACTOR OPERATOR Medication esomeprazole (NEXIUM) 40 mg capsule, Sig TAKE ONE CAPSULE BY MOUTH twice daily., Start Date 08/10/24, End Date , Taking? , Authorizing Provider Christine Morgan APRN.CD REACTOR OPERATOR Medication dulaglutide (TRULICITY) 0.75 mg/0.5 mL pen injector, Sig Inject 0.75 mg subcutaneously one time a week. Inject 0.75 mg once weekly, Start Date 07/27/24, End Date 07/27/25, Taking? , Authorizing Provider Marimar Wilcox APRN.CD REACTOR OPERATOR Medication lisinopril (ZESTRIL) 20 mg tablet, Sig Take 1 tablet by mouth once daily., Start Date 06/08/24, End Date , Taking? , Authorizing Provider Christine Morgan APRN.CD REACTOR OPERATOR Medication atorvastatin (LIPITOR) 20 mg tablet, Sig Take 1 tablet by mouth daily at bedtime. For cholesterol., Start Date 06/08/24, End Date , Taking? , Authorizing Provider Christine Morgan APRN.CD REACTOR OPERATOR Medication famotidine (PEPCID) 20 mg tablet, Sig Take 1 tablet by mouth two times a day as needed (GERD). Patient taking differently: Take 20 mg by mouth two times a day., Start Date 06/08/24, End Date , Taking? , Authorizing Provider Christine Morgan APRN.CD REACTOR OPERATOR Medication buPROPion XL (WELLBUTRIN XL) 300 mg 24 hr tablet, Sig Take 1 tablet by mouth once daily., Start Date 06/08/24, End Date , Taking? , Authorizing Provider Christine Morgan APRN.CD REACTOR OPERATOR Medication traZODone (DESYREL) 100 mg tablet, Sig Take 2 tablets by mouth daily at bedtime., Start Date 06/08/24, End Date , Taking? , Authorizing Provider Christine Morgan APRN.CD REACTOR OPERATOR Medication Blood-Glucose Sensor (FREESTYLE JAUN 3 PLUS SENSOR) guido, Sig 1 Each every 2 weeks. CHANGE sensor every 15 days. USE FOR CONTINUOUS GLUCOSE MONITORING. Dx: E11.9 RISK FOR HYPOGLYCEMIA. Patient not taking: Reported on 10/05/2024, Start Date 05/11/24, End Date , Taking? , Authorizing Provider Marimar Wilcox APRN.CD REACTOR OPERATOR Medication coffee xt/phosphatidyl serine (NEURIVA ORIGINAL ORAL), Sig Take 2 tablets by mouth once daily., Start Date 07/11/22, End Date , Taking? , Authorizing Provider Donavon Patricia MD Medication APPLE CIDER VINEGAR ORAL, Sig Take 1 capsule by mouth once daily. Combined with the tumeric, Start Date 11/21/21, End Date , Taking? , Authorizing Provider Kaylen Lindsey, DO Medication lactose-reduced food (ADULT NUTRITIONAL SUPPLEMENT ORAL), Sig Take 1 capsule by mouth once daily. Tumeric - 2000mg capsule Patient not taking: No sig reported, Start Date 11/21/21, End Date 11/22/21, Taking? , Authorizing Provider Kaylen Lindsey, DO Medication MULTI-VITAMIN ORAL, Sig Take 1 tablet by mouth once daily. Takes bariatric multivitamin daily (contains extra calcium and iron), Start Date , End Date , Taking? , Authorizing Provider Evelyn Edouard Other OTC med/supplements: None Medication Review: - ANY HIGH RISK MEDICATIONS (STOPP CRITERIA): NO ALLERGIES No Known Allergies Review of Systems Difficulty chew/swallow: No Pain: none Tremor: yes essential Incontinence - During the last 3 months did you leak urine? 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 No deformities, edema, or skin discoloration. Musculoskeletal: Normal Gait Comfrey Cognitive Exam (MOCA): 30 CDR Dementia Scale 1) Subjective Memory Loss: YES 2) Measurable Memory Loss: NO 3) IADLs: NO 4) BADLs: NO Driving Safely: Yes > 50% 6) Medications: No. Level: CDR 0.5 Depression Screening/Evaluation: GDS- 9/15 1. Memory loss (R41.3) Progressive memory loss over the past 10 years, with recent worsening. MOCA score decreased from 29/30 in 2020 to 26/30 currently, still within normal range. Neuropsychological evaluation suggests depression as a contributing factor. No significant thought dysfunction or behavioral issues noted. Patient expresses concerns about potential Alzheimer's disease. - Working out to order PET amyloid scan to evaluate for Alzheimer's disease; to be performed at [facility] as MRI is not possible due to stimulator. She is invested in knowing what she has so that she can plan for her future. Past evals dont specifically note a neurodegenerative condition but she does think she is getting worse, she wants a more concrete answer so she can work on her future. we did discuss ADHD as a confounder and trial of treatment for it till we get the amyloid pet and possible start on aricpet. - Discussed potential treatments for Alzheimer's, including Aricept and Namenda, if PET scan is positive. - Follow-up appointment scheduled after CT scan results are available to discuss further management. 2. Attention deficit hyperactivity disorder (ADHD), combined type (F90.2) Symptoms of losing train of thought and difficulty focusing. No previous diagnosis of ADHD. - Prescribed Vyvanse 10 mg capsule to be taken once daily; patient advised to try a small dose and monitor for improvement in symptoms. - Discussed potential cost of medication and advised patient to check with pharmacy for pricing. 3. Major depressive disorder, remission status unspecified, unspecified whether recurrent (F32.9) Currently on Prozac and Wellbutrin. Neuropsychological evaluation suggests depression as a contributing factor to memory loss. GDS score indicates significant depression. - Continue current antidepressant medications. Spent more than 60 mins in direct care of patient and 20 more mins in co ordination additional care Snow Stratton MD [facility] documented in this encounter [facility] 11-15-2024 History and physical note Images from the original note were not included. [facility] HISTORY AND PHYSICAL EXAMINATION SERVICE DATE: 11/15/2024 SERVICE TIME: 1:59 PM PRIMARY CARE PHYSICIAN: Christine Morgan APRN.CD REACTOR OPERATOR Assessment Patient has the following medical conditions which may affect lazaro-operative course: 1. Mixed hyperlipidemia (E78.2) - On statin therapy. 2. Essential hypertension (I10) - Well-controlled on current medication regimen. 3. Coronary artery disease involving blackfeet coronary artery of blackfeet heart without angina pectoris (I25.10) - Reviewed history of 20% coronary artery stenosis on prior cardiac catheterization. - Reviewed negative stress test from 2020 and normal echocardiogram. 4. MARIBEL (obstructive sleep apnea) (G47.33) - Resolved following gastric bypass in 2018. 5. Mild intermittent asthma 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 ([facility]) (J45.20) - No current symptoms; does not use inhaler. 6. Irritable bowel syndrome with diarrhea (K58.0) 7. 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 - Advised patient to bring stimulator remote to surgery. 8. GERD without esophagitis (K21.9) - Managed with Nexium and famotidine; no current burning sensation, but persistent belching. 9. Renal lesion (N28.9) 10. Stage 3 chronic kidney disease, unspecified whether stage 3a or 3b CKD ([facility]) (N18.30) - Reviewed CT scan findings of a stable cyst in the upper pole of the right kidney. - Discussed family history of renal disease. 11. 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 - Managed with Trulicity; advised to hold Trulicity 7 days prior to surgery to reduce aspiration risk. 12. Pancreatic cyst ([facility]) (K86.2) - Reviewed CT scan findings of a stable pancreatic lesion. 13. Hypothyroidism, unspecified type (E03.9) - On Synthroid. 14. Moderate episode of recurrent major depressive disorder (HCC) (F33.1) - Chronic, recurrent depression; managed with Wellbutrin, trazodone, and Prozac. - Denies recent suicidal ideation. 15. H/O gastric bypass (Z98.84) 16. Headaches (R51.9) - Likely secondary to recent initiation of Ritalin. - Advised patient to use Tylenol as needed and to discuss with prescribing provider at next week's appointment. 17. Falls (R29.6) - History of falls, including one resulting in hip fracture. - Advised patient to exercise caution to prevent future falls. 18. Post-operative nausea and vomiting (R11.2) - Reports from prior procedures. Requesting antiemetics for control of N/V. 19. Attention-deficit hyperactivity disorder, predominantly inattentive type (F90.0) - Recent diagnosis; managed with Ritalin. - Advised to hold Ritalin on day of surgery. ANESTHESIA FINDINGS: Intubation History: No history of difficult intubation. No abnormal airway history Significant Anesthesia Considerations: Patient reports low BP after procedures, denies admission for this issue. potential postop nausea/vomiting Airway History: No history of difficult airway No abnormal airway history [place] Activity Status Index: METS: Walk indoors, such as around the house (1.75 METs) Do light work around the house, such as dusting or washing dishes (2.70 METs) Take care of self; that is eating, dressing, bathing, using the toilet (2.75 METs) Walk a block or two on level ground (2.75 METs) Do moderate work around the house, such as vacuuming, sweeping floors, or carrying in groceries (3.50 METs) Climb a flight of stairs or walk up a hill (5.50 METs) DASI Score: 18.95 Patient denies any chest pain or undue shortness of breath with the above physical activity. Clinical Frailty Scale: 3. Well, with treated comorbid disease STOP-Bang Score: Has or is being treated for high blood pressure Patient over 50 years old Denies snoring loudly Denies feeling tired, fatigued, or sleepy during the daytime Has not been observed to stop breathing or choking/gasping during sleep BMI less than or equal to 35 kg/m^2 Does not have a large neck Non-male patient STOP-Bang Score: 2 I - PHYSICAL EVALUATION AIRWAY Patient intubated: No. Tracheostomy tube not present Mallampati: II. TM distance: >3 FB. Neck ROM: full ROM without neurological symptoms. Mouth openin FB. Short neck: no. Thick neck: no DENTAL Dental findings: implants and caps/crowns. Additional comments: + bridge with implant on front row, as well as some missing teeth. II - ANESTHESIA PLAN Anesthetic plan additional comments: *PACC/TCI - anesthesia choice. Informed Consent Prepared for Surgery: optimally prepared for surgery. CONSULTS: Patient does not require consults for optimization at this time Planned Anesthetic: anesthesia choice The Following Tests/Procedures Have Been Initiated: No orders of the defined types were placed in this encounter. REASON FOR VISIT: Mary Jane De Paz is a 74 year old female who is scheduled for Procedure(s): EXCISION DISTAL ULNA, RIGHT (Right) TRANSPLANT OR TRANFER TENDON FLEXOR OR EXTENSOR FOREARM AND/OR WRIST SINGLE, RIGHT (Right) at the request of Dr. Ish Higgins for consultation. My final recommendation will be communicated back to the requesting physician by way of shared medical record or letter. Subjective The patient has the following: COVID-19 Immunization Status This patient has no relevant Health Maintenance data. CHIEF COMPLAINT: pre op HPI: Mary Jane De Paz is a 74-year-old female with a history of ulnar abutment syndrome, depression, and obstructive sleep apnea, presenting with right wrist pain, headaches, and sleep disturbances. Mary Jane reports intermittent pain in the ulnar portion of the right wrist, described as hot fire, exacerbated by activities such as using her iPad or lifting objects. The pain is alleviated by rest. She denies any numbness or tingling in the fingers. REVIEW OF SYSTEMS: General: No weight loss, malaise or fevers. Neurological: Positive for: headaches. Negative for: delirium, dementia, impaired sensorium, peripheral neuropathy, seizures, TIA and strokes. Respiratory: Positive for: asthma, obstructive sleep apnea and CPAP/BiPAP noncompliant. Negative for: bronchitis, COPD, current cough, bronchodilator used daily for the last 3 months, dyspnea, home oxygen, orthopnea, pneumonia within 6 weeks, tobacco use and URI < 2 weeks. Cardiovascular: Denies any heart palpitations, edema, chest pain, shortness of breath, syncope, activity intolerance, or dizziness. Positive for: CAD, hyperlipidemia and hypertension Patient's last office visit The following tests and/or procedures were performed: cardiac catheterization, cardiac stress test and echocardiogram. The following tests and/or procedures were not performed: cardiac stents. Negative for: abdominal aortic aneurysm, AICD/PPM, angina, anticoagulation therapy, arrhythmia, atrial fibrillation, chest pain, CHF, congenital heart defect, DVT/PE, recent MD, murmur/valvular heart disease, PTCA, PVD, open heart surgery and valve surgery. GI: Positive for: GERD and irritable bowel syndrome Negative for: abdominal pain, GI bleed <30 days, hepatitis, liver disease, nausea, vomiting and ETOH >2 drinks/day. : + stage 3a CKD Negative for: on dialysis, dysuria, flank pain, frequent urination, hematuria, renal failure and urinary tract infection. Endocrine: + pancreatic cyst Positive for: 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 and hypothyroidism. Patient's 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 is controlled by + trulicity. Negative for: hyperthyroidism. Hematology: Negative for: anemia, bruises/bleeds easily, factor V Leiden, hemophilia, thrombocytopenia, von Willebrand disease, transfusion of at least 4 units within 72 hours prior to surgery and chronic anti-coagulation/platelet meds. Oncology: Negative for: CA metastasis, chemo within 30 days, disseminated cancer and radiotherapy within 90 days. Psych: Positive for: depression. Musculoskeletal: See HPI. Skin: Negative for lesions, rash and itching. Implanted Devices: Has implanted device Implants: Rectal Stimulator. PAST MEDICAL HISTORY Diagnosis Date Allergic rhinitis Arthritis [facility] orthopedics, knee Asthma ([facility]) CKD (chronic kidney disease) 11/01/2018 Class 3 severe obesity with serious comorbidity and body mass index (BMI) of 40.0 to 44.9 in adult ([facility]) 08/19/2018 Coronary artery disease 10/28/[address] Salazar Fracture of right hip ([facility]) GERD (gastroesophageal reflux disease) History of transfusion HTN (hypertension) Hypothyroidism Mixed hyperlipidemia NIDDM (non-insulin dependent 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) MARIBEL on CPAP CPAP 9Cm Osteoarthritis of hip Renal lesion 01/15/2015 Suggest renal US every 1-2 years per PCP or nephro. Snoring Type 2 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 with hyperglycemia, with long-term current use of insulin ([facility]) 1999 PAST SURGICAL HISTORY Procedure Laterality Date ABDOMINAL SURGERY HX COLONOSCOPY 11/05/2016 Tammi- divertiuclosis, internal hemorrhoids, repeat in 5 years COLONOSCOPY 04/02/2022 repeat in 5 years due to reported prior history of polyps COSMETIC ASSESSMENT EGD 11/05/2016 Tammi- gastritis EGD 09/08/2018 /Gastritis EGD 04/02/2020 EGD 04/02/2022 EYE SURGERY HX Bilateral cataract extraction 2009's GASTRECTOMY,PART DISTAL;W/GASTRODUODENOSTO GASTRIC BYPASS HX 12/13/2018 Laparoscopic Samina-en-Y gastric bypass HIP SURGERY HX Screws replaced JOINT REPLACEMENT HX LAPAROSCOPY DIAGNOSTIC 07/26/2023 internal hernias and mesenteric adhesion OOPHORECTOMY PARTIAL OR TOTAL PAST SURGICAL HISTORY OF 2009 hemmroidectomy/sphincterectomy - Dr Nichole PAST SURGICAL HISTORY OF 2008 total left knee replacement PAST SURGICAL HISTORY OF 2003 partial right knee replacement PAST SURGICAL HISTORY OF 1990 total hysterectomy PAST SURGICAL HISTORY OF 2010 lDr Mansoor - [place] elbow fracture - traumatic. radial head replacement PAST SURGICAL HISTORY OF Bilateral 2016 hand surgery PAST SURGICAL HISTORY OF Left RELEASE CONTRACTURE DEQUERVAINS S INSERT PINN METAL NTRL HIP Right 11/17/2021 SKIN BIOPSY HX TOTAL HIP REPLACEMENT Right TOTAL KNEE REPLACEMENT Right 09/15/2022 TUBAL LIGATION HX VAGINAL HYSTERECTOMY 1979' FAMILY HISTORY Problem Relation Age of Onset other (polio) Mother Diabetes Father other (Squamous cell ca) Father other (renal cell ca) Father 1999 other (htn) Father other (Thyroid Cancer) Sister other (thyroid disease) Sister ca other (renal cell ca) Brother 2010 Obesity Paternal Grandmother Obesity Daughter Thyroid Daughter Diabetes Daughter Anesthesia Problems No Family History SOCIAL HISTORY[1] Prior to Admission medications as of 11/15/24 1323 Medication Sig Last Dose Taking methylphenidate (RITALIN) 10 mg tablet Take 1 tablet by mouth once daily for 14 days. Yes biotin 5 mg tab Take 1 tablet by mouth once daily. Yes esomeprazole (NEXIUM) 40 mg capsule TAKE ONE CAPSULE BY MOUTH twice daily. Yes dulaglutide (TRULICITY) 0.75 mg/0.5 mL pen injector Inject 0.75 mg subcutaneously one time a week. Inject 0.75 mg once weekly Yes lisinopril (ZESTRIL) 20 mg tablet Take 1 tablet by mouth once daily. Yes atorvastatin (LIPITOR) 20 mg tablet Take 1 tablet by mouth daily at bedtime. For cholesterol. Yes famotidine (PEPCID) 20 mg tablet Take 1 tablet by mouth two times a day as needed (GERD). Patient taking differently: Take 20 mg by mouth two times a day. Yes buPROPion XL (WELLBUTRIN XL) 300 mg 24 hr tablet Take 1 tablet by mouth once daily. Yes traZODone (DESYREL) 100 mg tablet Take 2 tablets by mouth daily at bedtime. Yes coffee xt/phosphatidyl serine (NEURIVA ORIGINAL ORAL) Take 2 tablets by mouth once daily. Yes APPLE CIDER VINEGAR ORAL Take 1 capsule by mouth once daily. Combined with the tumeric Yes MULTI-VITAMIN ORAL Take 1 tablet by mouth once daily. Takes bariatric multivitamin daily (contains extra calcium and iron) Yes lisdexamfetamine (VYVANSE) 10 mg capsule Take 1 capsule by mouth once daily for 30 days. FLUoxetine (PROZAC) 40 mg capsule Take 1 capsule by mouth two times a day. levothyroxine (SYNTHROID) 100 mcg tablet Take 1 tablet by mouth once daily. Blood-Glucose Sensor (FREESTYLE JAUN 3 PLUS SENSOR) guido 1 Each every 2 weeks. CHANGE sensor every 15 days. USE FOR CONTINUOUS GLUCOSE MONITORING. Dx: E11.9 RISK FOR HYPOGLYCEMIA. Patient not taking: Reported on 10/05/2024 lactose-reduced food (ADULT NUTRITIONAL SUPPLEMENT ORAL) Take 1 capsule by mouth once daily. Tumeric - 2000mg capsule Patient not taking: No sig reported No medication comments found. ALLERGIES No Known Allergies Objective PHYSICAL EXAM: General: alert and oriented and healthy appearance. Pertinent negatives noted - not distressed. Skin: normal color, no rash or lesions. HEENT: EOM intact, pupils equal round and pupils reactive to light. Pertinent negatives noted - no carotid bruit. Cardiovascular: regular rate and rhythm, normal S1 and S2, no rub, murmurs, or gallop. Respiratory: normal breath sounds, no wheezes or crackles. No chest wall deformity or tenderness. Abdomen: bowel sounds present and soft. Pertinent negatives noted - not tender. Extremities: no deformity, no edema or tenderness, no joint swelling or clubbing. Neurological: normal cognition and motor skills. Gait normal. No weakness or sensory deficit. PAIN ASSESSMENT: VITALS: BP 122/68 Pulse 86 Temp (Src) 99.1 (Temporal) Resp 12 Ht 5' 2 (1.58m) Wt 130 lb (59.0kg) SpO2 97% BMI 23.77 kg/(m^2). Diagnostic tests reviewed for today's visit: Lab Value Units Date High Low HB 12.9 g/dL 09/21/2024 15.5 11.5 HCT 39.5 % 09/21/2024 46.0 36.0 WBC 8.90 k/uL 09/21/2024 11.00 3.70 PLT 379 k/uL 09/21/2024 400 150 NA 138 mmol/L 09/21/2024 144 136 K 4.8 mmol/L 09/21/2024 5.1 3.7 GLUC 103 mg/dL 09/21/2024 99 74 BUN 12 mg/dL 09/21/2024 21 7 CREAT 1.03 mg/dL 09/21/2024 0.96 0.58 PTSEC No results within date range. INR No results within date range. APTT No results within date range. ALT 50 U/L 10/05/2024 38 7 AST 51 U/L 10/05/2024 35 13 TBILI 0.3 mg/dL 10/05/2024 1.3 0.2 TSH 2.990 mIU/L 09/21/2024 4.200 0.270 Lab Value Units Date High Low HCGQT No results within date range. UHCG No results within date range. HCG, BODY* No results within date range. Lab Value Units Date High Low ABORHD No results within date range. ABSCREEN No results within date range. Hemoglobin A1C (%) Date Value 09/21/2024 5.9 01/15/2024 6.2 04/28/2023 5.6 07/29/2022 5.5 04/22/2022 6.0 02/27/2021 6.6 10/19/2020 7.5 09/05/2020 7.4 01/24/2020 6.3 01/24/2020 6.3 No results found for this or any previous visit (from the past 8760 hours). No results found for this or any previous visit (from the past 55653 hours). Instructions Given to Patient: Instructions located in the after visit summary. Patient given verbal and written preop instructions and voices comprehension and compliance. Recording using ambient Unomy software for draft documentation of the visit was discussed with the patient/authorized student services representative; all questions welcomed and answered. Patient/authorized student services representative agreed to proceed SIGNATURE: Amanda Mccracken APRN.CNP PATIENT NAME: Mary Jane De Paz DATE: November 15, 2024 TIME: 1:20 PM PAGER/CONTACT #: [1] Social History Tobacco Use Smoking status: Former Current packs/day: 0.00 Average packs/day: 1.5 packs/day for 22.0 years (33.0 ttl pk-yrs) Types: Cigarettes Start date: 1967 Quit date: 1989 Years since quittin.6 Passive exposure: Past Smokeless tobacco: Never Vaping Use Vaping status: Never Used Substance Use Topics Alcohol use: Yes Comment: once or twice a month Drug use: No [facility] 11-15-2024 History and physical note Images from the original note were not included. [facility] HISTORY AND PHYSICAL EXAMINATION SERVICE DATE: 11/15/2024 SERVICE TIME: 1:59 PM PRIMARY CARE PHYSICIAN: Christine Morgan APRN.CNP Assessment Patient has the following medical conditions which may affect lazaro-operative course: 1. Mixed hyperlipidemia (E78.2) - On statin therapy. 2. Essential hypertension (I10) - Well-controlled on current medication regimen. 3. Coronary artery disease involving blackfeet coronary artery of blackfeet heart without angina pectoris (I25.10) - Reviewed history of 20% coronary artery stenosis on prior cardiac catheterization. - Reviewed negative stress test from 2020 and normal echocardiogram. 4. MARIBEL (obstructive sleep apnea) (G47.33) - Resolved following gastric bypass in 2018. 5. Mild intermittent asthma 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 (HCC) (J45.20) - No current symptoms; does not use inhaler. 6. Irritable bowel syndrome with diarrhea (K58.0) 7. 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 - Advised patient to bring stimulator remote to surgery. 8. GERD without esophagitis (K21.9) - Managed with Nexium and famotidine; no current burning sensation, but persistent belching. 9. Renal lesion (N28.9) 10. Stage 3 chronic kidney disease, unspecified whether stage 3a or 3b CKD (HCC) (N18.30) - Reviewed CT scan findings of a stable cyst in the upper pole of the right kidney. - Discussed family history of renal disease. 11. 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 - Managed with Trulicity; advised to hold Trulicity 7 days prior to surgery to reduce aspiration risk. 12. Pancreatic cyst (HCC) (K86.2) - Reviewed CT scan findings of a stable pancreatic lesion. 13. Hypothyroidism, unspecified type (E03.9) - On Synthroid. 14. Moderate episode of recurrent major depressive disorder (HCC) (F33.1) - Chronic, recurrent depression; managed with Wellbutrin, trazodone, and Prozac. - Denies recent suicidal ideation. 15. H/O gastric bypass (Z98.84) 16. Headaches (R51.9) - Likely secondary to recent initiation of Ritalin. - Advised patient to use Tylenol as needed and to discuss with prescribing provider at next week's appointment. 17. Falls (R29.6) - History of falls, including one resulting in hip fracture. - Advised patient to exercise caution to prevent future falls. 18. Post-operative nausea and vomiting (R11.2) - Reports from prior procedures. Requesting antiemetics for control of N/V. 19. Attention-deficit hyperactivity disorder, predominantly inattentive type (F90.0) - Recent diagnosis; managed with Ritalin. - Advised to hold Ritalin on day of surgery. ANESTHESIA FINDINGS: Intubation History: No history of difficult intubation. No abnormal airway history Significant Anesthesia Considerations: Patient reports low BP after procedures, denies admission for this issue. potential postop nausea/vomiting Airway History: No history of difficult airway No abnormal airway history [place] Activity Status Index: METS: Walk indoors, such as around the house (1.75 METs) Do light work around the house, such as dusting or washing dishes (2.70 METs) Take care of self; that is eating, dressing, bathing, using the toilet (2.75 METs) Walk a block or two on level ground (2.75 METs) Do moderate work around the house, such as vacuuming, sweeping floors, or carrying in groceries (3.50 METs) Climb a flight of stairs or walk up a hill (5.50 METs) DASI Score: 18.95 Patient denies any chest pain or undue shortness of breath with the above physical activity. Clinical Frailty Scale: 3. Well, with treated comorbid disease STOP-Bang Score: Has or is being treated for high blood pressure Patient over 50 years old Denies snoring loudly Denies feeling tired, fatigued, or sleepy during the daytime Has not been observed to stop breathing or choking/gasping during sleep BMI less than or equal to 35 kg/m^2 Does not have a large neck Non-male patient STOP-Bang Score: 2 I - PHYSICAL EVALUATION AIRWAY Patient intubated: No. Tracheostomy tube not present Mallampati: II. TM distance: >3 FB. Neck ROM: full ROM without neurological symptoms. Mouth openin FB. Short neck: no. Thick neck: no DENTAL Dental findings: implants and caps/crowns. Additional comments: + bridge with implant on front row, as well as some missing teeth. II - ANESTHESIA PLAN Anesthetic plan additional comments: *PACC/TCI - anesthesia choice. Informed Consent Prepared for Surgery: optimally prepared for surgery. CONSULTS: Patient does not require consults for optimization at this time Planned Anesthetic: anesthesia choice The Following Tests/Procedures Have Been Initiated: No orders of the defined types were placed in this encounter. REASON FOR VISIT: Mary Jane De Paz is a 74 year old female who is scheduled for Procedure(s): EXCISION DISTAL ULNA, RIGHT (Right) TRANSPLANT OR TRANFER TENDON FLEXOR OR EXTENSOR FOREARM AND/OR WRIST SINGLE, RIGHT (Right) at the request of Dr. Ish Higgins for consultation. My final recommendation will be communicated back to the requesting physician by way of shared medical record or letter. Subjective The patient has the following: COVID-19 Immunization Status This patient has no relevant Health Maintenance data. CHIEF COMPLAINT: pre op HPI: Mary Jane De Paz is a 74-year-old female with a history of ulnar abutment syndrome, depression, and obstructive sleep apnea, presenting with right wrist pain, headaches, and sleep disturbances. Mary Jane reports intermittent pain in the ulnar portion of the right wrist, described as hot fire, exacerbated by activities such as using her iPad or lifting objects. The pain is alleviated by rest. She denies any numbness or tingling in the fingers. REVIEW OF SYSTEMS: General: No weight loss, malaise or fevers. Neurological: Positive for: headaches. Negative for: delirium, dementia, impaired sensorium, peripheral neuropathy, seizures, TIA and strokes. Respiratory: Positive for: asthma, obstructive sleep apnea and CPAP/BiPAP noncompliant. Negative for: bronchitis, COPD, current cough, bronchodilator used daily for the last 3 months, dyspnea, home oxygen, orthopnea, pneumonia within 6 weeks, tobacco use and URI < 2 weeks. Cardiovascular: Denies any heart palpitations, edema, chest pain, shortness of breath, syncope, activity intolerance, or dizziness. Positive for: CAD, hyperlipidemia and hypertension Patient's last office visit The following tests and/or procedures were performed: cardiac catheterization, cardiac stress test and echocardiogram. The following tests and/or procedures were not performed: cardiac stents. Negative for: abdominal aortic aneurysm, AICD/PPM, angina, anticoagulation therapy, arrhythmia, atrial fibrillation, chest pain, CHF, congenital heart defect, DVT/PE, recent MD, murmur/valvular heart disease, PTCA, PVD, open heart surgery and valve surgery. GI: Positive for: GERD and irritable bowel syndrome Negative for: abdominal pain, GI bleed <30 days, hepatitis, liver disease, nausea, vomiting and ETOH >2 drinks/day. : + stage 3a CKD Negative for: on dialysis, dysuria, flank pain, frequent urination, hematuria, renal failure and urinary tract infection. Endocrine: + pancreatic cyst Positive for: 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 and hypothyroidism. Patient's 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 is controlled by + trulicity. Negative for: hyperthyroidism. Hematology: Negative for: anemia, bruises/bleeds easily, factor V Leiden, hemophilia, thrombocytopenia, von Willebrand disease, transfusion of at least 4 units within 72 hours prior to surgery and chronic anti-coagulation/platelet meds. Oncology: Negative for: CA metastasis, chemo within 30 days, disseminated cancer and radiotherapy within 90 days. Psych: Positive for: depression. Musculoskeletal: See HPI. Skin: Negative for lesions, rash and itching. Implanted Devices: Has implanted device Implants: Rectal Stimulator. PAST MEDICAL HISTORY Diagnosis Date Allergic rhinitis Arthritis [facility] orthopedics, knee Asthma ([facility]) CKD (chronic kidney disease) 11/01/2018 Class 3 severe obesity with serious comorbidity and body mass index (BMI) of 40.0 to 44.9 in adult ([facility]) 08/19/2018 Coronary artery disease 10/28/[address] Salazar Fracture of right hip ([facility]) GERD (gastroesophageal reflux disease) History of transfusion HTN (hypertension) Hypothyroidism Mixed hyperlipidemia NIDDM (non-insulin dependent 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) MARIBEL on CPAP CPAP 9Cm Osteoarthritis of hip Renal lesion 01/15/2015 Suggest renal US every 1-2 years per PCP or nephro. Snoring Type 2 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 with hyperglycemia, with long-term current use of insulin ([facility]) 1999 PAST SURGICAL HISTORY Procedure Laterality Date ABDOMINAL SURGERY HX COLONOSCOPY 11/05/2016 Tammi- divertiuclosis, internal hemorrhoids, repeat in 5 years COLONOSCOPY 04/02/2022 repeat in 5 years due to reported prior history of polyps COSMETIC ASSESSMENT EGD 11/05/2016 Tammi- gastritis EGD 09/08/2018 /Gastritis EGD 04/02/2020 EGD 04/02/2022 EYE SURGERY HX Bilateral cataract extraction 2009' GASTRECTOMY,PART DISTAL;W/GASTRODUODENOSTO GASTRIC BYPASS HX 12/13/2018 Laparoscopic Samina-en-Y gastric bypass HIP SURGERY HX Screws replaced JOINT REPLACEMENT HX LAPAROSCOPY DIAGNOSTIC 07/26/2023 internal hernias and mesenteric adhesion OOPHORECTOMY PARTIAL OR TOTAL PAST SURGICAL HISTORY OF 2009 hemmroidectomy/sphincterectomy - Dr Nichole PAST SURGICAL HISTORY OF 2008 total left knee replacement PAST SURGICAL HISTORY OF 2003 partial right knee replacement PAST SURGICAL HISTORY OF 1990 total hysterectomy PAST SURGICAL HISTORY OF 2010 lDr Mansoor - [place] elbow fracture - traumatic. radial head replacement PAST SURGICAL HISTORY OF Bilateral 2016 hand surgery PAST SURGICAL HISTORY OF Left RELEASE CONTRACTURE DEQUERVAINS S INSERT PINN METAL NTRL HIP Right 11/17/2021 SKIN BIOPSY HX TOTAL HIP REPLACEMENT Right TOTAL KNEE REPLACEMENT Right 09/15/2022 TUBAL LIGATION HX VAGINAL HYSTERECTOMY 1979' FAMILY HISTORY Problem Relation Age of Onset other (polio) Mother Diabetes Father other (Squamous cell ca) Father other (renal cell ca) Father 1999 other (htn) Father other (Thyroid Cancer) Sister other (thyroid disease) Sister ca other (renal cell ca) Brother 2010 Obesity Paternal Grandmother Obesity Daughter Thyroid Daughter Diabetes Daughter Anesthesia Problems No Family History SOCIAL HISTORY[1] Prior to Admission medications as of 11/15/24 1323 Medication Sig Last Dose Taking methylphenidate (RITALIN) 10 mg tablet Take 1 tablet by mouth once daily for 14 days. Yes biotin 5 mg tab Take 1 tablet by mouth once daily. Yes esomeprazole (NEXIUM) 40 mg capsule TAKE ONE CAPSULE BY MOUTH twice daily. Yes dulaglutide (TRULICITY) 0.75 mg/0.5 mL pen injector Inject 0.75 mg subcutaneously one time a week. Inject 0.75 mg once weekly Yes lisinopril (ZESTRIL) 20 mg tablet Take 1 tablet by mouth once daily. Yes atorvastatin (LIPITOR) 20 mg tablet Take 1 tablet by mouth daily at bedtime. For cholesterol. Yes famotidine (PEPCID) 20 mg tablet Take 1 tablet by mouth two times a day as needed (GERD). Patient taking differently: Take 20 mg by mouth two times a day. Yes buPROPion XL (WELLBUTRIN XL) 300 mg 24 hr tablet Take 1 tablet by mouth once daily. Yes traZODone (DESYREL) 100 mg tablet Take 2 tablets by mouth daily at bedtime. Yes coffee xt/phosphatidyl serine (NEURIVA ORIGINAL ORAL) Take 2 tablets by mouth once daily. Yes APPLE CIDER VINEGAR ORAL Take 1 capsule by mouth once daily. Combined with the tumeric Yes MULTI-VITAMIN ORAL Take 1 tablet by mouth once daily. Takes bariatric multivitamin daily (contains extra calcium and iron) Yes lisdexamfetamine (VYVANSE) 10 mg capsule Take 1 capsule by mouth once daily for 30 days. FLUoxetine (PROZAC) 40 mg capsule Take 1 capsule by mouth two times a day. levothyroxine (SYNTHROID) 100 mcg tablet Take 1 tablet by mouth once daily. Blood-Glucose Sensor (FREESTYLE JAUN 3 PLUS SENSOR) guido 1 Each every 2 weeks. CHANGE sensor every 15 days. USE FOR CONTINUOUS GLUCOSE MONITORING. Dx: E11.9 RISK FOR HYPOGLYCEMIA. Patient not taking: Reported on 10/05/2024 lactose-reduced food (ADULT NUTRITIONAL SUPPLEMENT ORAL) Take 1 capsule by mouth once daily. Tumeric - 2000mg capsule Patient not taking: No sig reported No medication comments found. ALLERGIES No Known Allergies Objective PHYSICAL EXAM: General: alert and oriented and healthy appearance. Pertinent negatives noted - not distressed. Skin: normal color, no rash or lesions. HEENT: EOM intact, pupils equal round and pupils reactive to light. Pertinent negatives noted - no carotid bruit. Cardiovascular: regular rate and rhythm, normal S1 and S2, no rub, murmurs, or gallop. Respiratory: normal breath sounds, no wheezes or crackles. No chest wall deformity or tenderness. Abdomen: bowel sounds present and soft. Pertinent negatives noted - not tender. Extremities: no deformity, no edema or tenderness, no joint swelling or clubbing. Neurological: normal cognition and motor skills. Gait normal. No weakness or sensory deficit. PAIN ASSESSMENT: VITALS: BP 122/68 Pulse 86 Temp (Src) 99.1 (Temporal) Resp 12 Ht 5' 2 (1.58m) Wt 130 lb (59.0kg) SpO2 97% BMI 23.77 kg/(m^2). Diagnostic tests reviewed for today's visit: Lab Value Units Date High Low HB 12.9 g/dL 09/21/2024 15.5 11.5 HCT 39.5 % 09/21/2024 46.0 36.0 WBC 8.90 k/uL 09/21/2024 11.00 3.70 PLT 379 k/uL 09/21/2024 400 150 NA 138 mmol/L 09/21/2024 144 136 K 4.8 mmol/L 09/21/2024 5.1 3.7 GLUC 103 mg/dL 09/21/2024 99 74 BUN 12 mg/dL 09/21/2024 21 7 CREAT 1.03 mg/dL 09/21/2024 0.96 0.58 PTSEC No results within date range. INR No results within date range. APTT No results within date range. ALT 50 U/L 10/05/2024 38 7 AST 51 U/L 10/05/2024 35 13 TBILI 0.3 mg/dL 10/05/2024 1.3 0.2 TSH 2.990 mIU/L 09/21/2024 4.200 0.270 Lab Value Units Date High Low HCGQT No results within date range. UHCG No results within date range. HCG, BODY* No results within date range. Lab Value Units Date High Low ABORHD No results within date range. ABSCREEN No results within date range. Hemoglobin A1C (%) Date Value 09/21/2024 5.9 01/15/2024 6.2 04/28/2023 5.6 07/29/2022 5.5 04/22/2022 6.0 02/27/2021 6.6 10/19/2020 7.5 09/05/2020 7.4 01/24/2020 6.3 01/24/2020 6.3 No results found for this or any previous visit (from the past 8760 hours). No results found for this or any previous visit (from the past 69185 hours). Instructions Given to Patient: Instructions located in the after visit summary. Patient given verbal and written preop instructions and voices comprehension and compliance. Recording using [employer] software for draft documentation of the visit was discussed with the patient/authorized student services representative; all questions welcomed and answered. Patient/authorized student services representative agreed to proceed SIGNATURE: Amanda Mccracken APRN.CNP PATIENT NAME: Mary Jane De Paz DATE: November 15, 2024 TIME: 1:20 PM PAGER/CONTACT #: [1] Social History Tobacco Use Smoking status: Former Current packs/day: 0.00 Average packs/day: 1.5 packs/day for 22.0 years (33.0 ttl pk-yrs) Types: Cigarettes Start date: 1967 Quit date: 1989 Years since quittin.6 Passive exposure: Past Smokeless tobacco: Never Vaping Use Vaping status: Never Used Substance Use Topics Alcohol use: Yes Comment: once or twice a month Drug use: No documented in this encounter [facility] 11-14-2024 Instructions Amanda Mccracken APRN.CNP - 11/14/2024 3:57 PM EDT Images from the original note were not included. [facility] PATIENT PREOPERATIVE INSTRUCTIONS Bring rectal stimulator phone with you the day of surgery!! Ish Higgins, * has scheduled you for your procedure at this surgery center: [facility]: [phone] -- [address] [facility] [address]. Please read below carefully for your personalized instructions. Arrival Time for Surgery: - The Surgery Center or hospital where you are having surgery will call the afternoon before surgery (or Thursday for Thursday surgery) with a scheduled arrival time. - If you have not heard by 4 pm, please contact the surgery center above. Dietary Restrictions: - No solid food after midnight. - You may have 12 ounces of clear liquids (water, clear juices such as apple juice or gatorade, carbonated beverages, clear tea, black coffee, jello) until 2 hours before scheduled arrival at facility. - Do not drink any alcohol after midnight the night before your surgery. - no milk/creamer or other additives like honey - no pulp juices Medications: Unless instructed differently below, stay on all of your medications until your surgery. If you start any new medications after today's visit, please contact your surgeon. Pre-Surgery Med Instructions Medication Instructions methylphenidate (RITALIN) 10 mg tablet Do not take the day of surgery biotin 5 mg tab Do not take the day of surgery esomeprazole (NEXIUM) 40 mg capsule If you normally take this medication in the morning, take the morning of surgery. dulaglutide (TRULICITY) 0.75 mg/0.5 mL pen injector Hold 7 days before surgery. Last dose 11/25/24. lisinopril (ZESTRIL) 20 mg tablet If you normally take this medication in the morning, take the morning of surgery. atorvastatin (LIPITOR) 20 mg tablet If you normally take this medication in the morning, take the morning of surgery. famotidine (PEPCID) 20 mg tablet If you normally take this medication in the morning, take the morning of surgery. buPROPion XL (WELLBUTRIN XL) 300 mg 24 hr tablet If you normally take this medication in the morning, take the morning of surgery. traZODone (DESYREL) 100 mg tablet Please take night before surgery as directed. coffee xt/phosphatidyl serine (NEURIVA ORIGINAL ORAL) Do not take the day of surgery APPLE CIDER VINEGAR ORAL Do not take the day of surgery MULTI-VITAMIN ORAL Do not take the day of surgery Fluoxetine (Prozac) If you normally take this medication in the morning, take the morning of surgery. Synthroid If you normally take this medication in the morning, take the morning of surgery. If you are currently using a jpze-nvm-entn injectable or oral medication for diabetes or weight loss such as Dulaglutide (Trulicity), Exenatide (Byetta, Bydureon), Liraglutide (Victoza, Saxenda), Semaglutide (Ozempic, Wegovy, Rybelsus), or Tirzepatide (Mounjaro), the medicine should be stopped at least 7 days before surgery. These medicines can cause food to remain in your stomach for a very long time and increase the risks from surgery and anesthesia. Not stopping the medication for a long enough time may result in your surgery being rescheduled. If you start any new medications after today's visit, please contact the surgeon's office. Blood Thinning Medications: - Stop NSAIDS (Ibuprofen, Advil, Aleve, Motrin, Celebrex, Mobic, etc.) 7 days before surgery, as directed by your surgeon. - Stop Aspirin 7 days before surgery, as directed by your surgeon. - Stop herbal supplements 7 days before surgery. - You may take Tylenol (Acetaminophen) or any of your pain medications that do not contain aspirin or NSAIDS as needed. Important Reminders: - If you use CPAP/BIPAP, bring the machine with you to the surgery center. - If you are prescribed inhalers for breathing, continue using them. -Please be sure to brush your teeth and you can use mouth wash or rinse your mouth if dry. - Candy, mints, and tobacco products are NOT permitted the morning of surgery. - Hearing aids, dentures and glasses may be worn the morning of surgery. - If you have dentures or partials, please have a case to place them in or leave at home day of surgery. - NO jewelry, body piercings, makeup, hairpins or contacts are to be worn the day of surgery. If you develop symptoms such as a fever, cold, or flu, or have other changes to your health within TWO DAYS of scheduled surgery or the morning of surgery, please contact the surgery center above. Personal Belongings: -Please have photo ID and insurance cards. -If you do not have a copy of advance directives on file with us, please bring a copy with you on the day of surgery. - Leave ALL valuables and money at home or with family members. Please be aware that emergency situations arise, which may delay or change your surgical time. If this happens, we will notify you as soon as possible and regret any inconvenience. If you already have an Advance Directive, please fax a copy to [phone] or email to for it to be added to your chart. If you do not have an Advance Directive, you can find the appropriate form and more information at [email or web address]. We recommend that you complete the Advance Directive form found on the website and bring it with you the day of your surgery. It can be witnessed and scanned into your chart that day. Amanda Mccracken APRN.CD REACTOR OPERATOR documented in this encounter [facility] 11-14-2024 Note HNO ID: [id number] Author: SARAHI BARKER PT, DPT Service: ? Author Type: Physical Therapist Type: Progress Notes Filed: 11/14/2024 08:07 Note Text: 11/14/2024 [facility] PHYSICAL THERAPY DISCONTINUANCE OF CARE Plan of Care Period: Start of Care Date: 08/24/24 Last Visit Date: 09/13/2024 Therapy Program: The following is a summary of the interventions provided for this episode of care; Therapeutic exercise, Neuromuscular re-education, Manual therapy, and Self-intermediate management Assessment: Based on most recent visit, patient was progressing as expected toward functional goals based on home exercise program compliance, pain levels, and documented subjective information on progress. Unable to formally assess goal achievement, as patient has not returned to therapy or scheduled additional follow-up appointments. Reason for Discontinuation of Care: Patient has not returned to therapy or scheduled additional follow-up appointments. Sarahi Barker, PT, DPT [facility] 10-20-2024 History of Present illness Narrative Radiology Service Progress Note DATE OF SERVICE: October 20, 2024 TIME: 1:28 PM PATIENT IDENTITY VERIFICATION COMPLETED USING TWO (2) STANDARD IDENTIFIERS: Name and Date of confirmed by patient verbally. FALL SCREENING: Has the patient had 2 falls in the last year or 1 fall with injury or currently using an Ambulatory Assistive Device (Walker, Cane, Wheelchair, Crutches, etc.)? No PATIENT GENDER DATA: Assigned female at . status: : No status: NO. PATIENT RELEVANT IMPLANT DATA REVIEWED: Not Applicable PATIENT PRESENTS WITH AN IMPLANTABLE OR ATTACHED DEAF/HARD OF HEARING SPECIALIST: N/A ALLERGIES: Reviewed and unchanged CONTRAST ALLERGY: NO. EXAM: CT -CONTRAST INDUCED NEPHROPATHY RISK FACTORS: Patient age > 60 years CREATININE: Creatinine Date Value Ref Range Status 09/21/2024 1.03 (H) 0.58 - 0.96 mg/dL Final 01/15/2024 1.13 (H) 0.58 - 0.96 mg/dL Final 12/28/2023 1.06 (H) 0.58 - 0.96 mg/dL Final Estimated Glomerular Filtration Rate Date Value Ref Range Status 09/21/2024 58 (L) >=60 mL/min/1.73m Final Comment: Estimated Glomerular Filtration Rate (eGFR) is calculated using the 2020 CKD-EPI creatinine equation. This equation utilizes serum creatinine, sex, and age as parameters. The creatinine assay has traceable calibration to isotope dilution-mass spectrometry. Refer to KDIGO guidelines for clinical interpretation. In patients with unstable renal function, e.g. those with acute kidney injury, the eGFR may not accurately reflect actual GFR. eGFR- Date Value Ref Range Status 02/27/2021 60 Final P.O.C.T. RESULTS: POC done: Yes, See Lab Tab October 20, 2024 TREATMENT: N/A PERIPHERAL IV DATA: Ambulatory: A peripheral IV was started in the Left antecubital site with a Angio cath: 22 gauge. RADIOLOGY DEPARTMENT: CT; Exam(s) Completed: Brain SIGNATURE: RT Nils(Juliocesar) PATIENT NAME: Mary Jane De Paz DATE: October 20, 2024 TIME: 1:28 PM documented in this encounter [facility] 10-20-2024 Note HNO ID: [id number] Author: EMEKA COCHRAN RT(R) Service: ? Author Type: Technologist Type: Progress Notes Filed: 10/20/2024 13:28 Note Text: Radiology Service Progress Note DATE OF SERVICE: October 20, 2024 TIME: 1:28 PM PATIENT IDENTITY VERIFICATION COMPLETED USING TWO (2) STANDARD IDENTIFIERS: Name and Date of confirmed by patient verbally. FALL SCREENING: Has the patient had 2 falls in the last year or 1 fall with injury or currently using an Ambulatory Assistive Device (Walker, Cane, Wheelchair, Crutches, etc.)? No PATIENT GENDER DATA: Assigned female at . status: : No status: NO. PATIENT RELEVANT IMPLANT DATA REVIEWED: Not Applicable PATIENT PRESENTS WITH AN IMPLANTABLE OR ATTACHED DEAF/HARD OF HEARING SPECIALIST: N/A ALLERGIES: Reviewed and unchanged CONTRAST ALLERGY: NO. EXAM: CT -CONTRAST INDUCED NEPHROPATHY RISK FACTORS: Patient age > 60 years CREATININE: Creatinine Date Value Ref Range Status 09/21/2024 1.03 (H) 0.58 - 0.96 mg/dL Final 01/15/2024 1.13 (H) 0.58 - 0.96 mg/dL Final 12/28/2023 1.06 (H) 0.58 - 0.96 mg/dL Final Estimated Glomerular Filtration Rate Date Value Ref Range Status 09/21/2024 58 (L) >=60 mL/min/1.73m? Final Comment: Estimated Glomerular Filtration Rate (eGFR) is calculated using the 2020 CKD-EPI creatinine equation. This equation utilizes serum creatinine, sex, and age as parameters. The creatinine assay has traceable calibration to isotope dilution-mass spectrometry. Refer to KDIGO guidelines for clinical interpretation. In patients with unstable renal function, e.g. those with acute kidney injury, the eGFR may not accurately reflect actual GFR. eGFR- Date Value Ref Range Status 02/27/2021 60 Final P.O.C.T. RESULTS: POC done: Yes, See Lab Tab October 20, 2024 TREATMENT: N/A PERIPHERAL IV DATA: Ambulatory: A peripheral IV was started in the Left antecubital site with a Angio cath: 22 gauge. RADIOLOGY DEPARTMENT: CT; Exam(s) Completed: Brain SIGNATURE: Emeka [place], RT(R) PATIENT NAME: Mary Jane De Paz DATE: October 20, 2024 TIME: 1:28 PM [facility] 10-19-2024 Telephone encounter Note It is done Snow Swenson MD [facility] 10-19-2024 Miscellaneous Notes It is done Snow Swenson MD Milagro from [place] [facility] calling patient is scheduled for CT Brain tomorrow. Asking to have order changed the protocol is to do CT Brain with and without contrast. Please advise documented in this encounter [facility] 10-19-2024 Telephone encounter Note Milagro from [place] [facility] calling patient is scheduled for CT Brain tomorrow. Asking to have order changed the protocol is to do CT Brain with and without contrast. Please advise [facility] 10-13-2024 History of Present illness Narrative Radiology Service Progress Note DATE OF SERVICE: October 13, 2024 TIME: 3:06 PM PATIENT IDENTITY VERIFICATION COMPLETED USING TWO (2) STANDARD IDENTIFIERS: Name and Date of confirmed by patient verbally. FALL SCREENING: Has the patient had 2 falls in the last year or 1 fall with injury or currently using an Ambulatory Assistive Device (Walker, Cane, Wheelchair, Crutches, etc.)? No PATIENT GENDER DATA: Assigned female at . status: : No status: NO. PATIENT RELEVANT IMPLANT DATA REVIEWED: Not Applicable PATIENT PRESENTS WITH AN IMPLANTABLE OR ATTACHED DEAF/HARD OF HEARING SPECIALIST: N/A ALLERGIES: Reviewed and unchanged CONTRAST ALLERGY: NO. EXAM: CT -CONTRAST INDUCED NEPHROPATHY RISK FACTORS: Patient age > 60 years CREATININE: Creatinine Date Value Ref Range Status 09/21/2024 1.03 (H) 0.58 - 0.96 mg/dL Final 01/15/2024 1.13 (H) 0.58 - 0.96 mg/dL Final 12/28/2023 1.06 (H) 0.58 - 0.96 mg/dL Final Estimated Glomerular Filtration Rate Date Value Ref Range Status 09/21/2024 58 (L) >=60 mL/min/1.73m Final Comment: Estimated Glomerular Filtration Rate (eGFR) is calculated using the 2020 CKD-EPI creatinine equation. This equation utilizes serum creatinine, sex, and age as parameters. The creatinine assay has traceable calibration to isotope dilution-mass spectrometry. Refer to KDIGO guidelines for clinical interpretation. In patients with unstable renal function, e.g. those with acute kidney injury, the eGFR may not accurately reflect actual GFR. eGFR- Date Value Ref Range Status 02/27/2021 60 Final P.O.C.T. RESULTS: POC done: Yes, See Lab Tab October 13, 2024 TREATMENT: N/A PERIPHERAL IV DATA: Ambulatory: A peripheral IV was started in the Right antecubital site with a Angio cath: 20 gauge. RADIOLOGY DEPARTMENT: CT; Exam(s) Completed: Pancreas SIGNATURE: RT Nils(Juliocesar) PATIENT NAME: Mary Jane De Paz DATE: October 13, 2024 TIME: 3:06 PM documented in this encounter [facility] 10-13-2024 Note HNO ID: [id number] Author: EMEKA COCHRAN RT(R) Service: ? Author Type: Technologist Type: Progress Notes Filed: 10/13/2024 15:07 Note Text: Radiology Service Progress Note DATE OF SERVICE: October 13, 2024 TIME: 3:06 PM PATIENT IDENTITY VERIFICATION COMPLETED USING TWO (2) STANDARD IDENTIFIERS: Name and Date of confirmed by patient verbally. FALL SCREENING: Has the patient had 2 falls in the last year or 1 fall with injury or currently using an Ambulatory Assistive Device (Walker, Cane, Wheelchair, Crutches, etc.)? No PATIENT GENDER DATA: Assigned female at . status: : No status: NO. PATIENT RELEVANT IMPLANT DATA REVIEWED: Not Applicable PATIENT PRESENTS WITH AN IMPLANTABLE OR ATTACHED DEAF/HARD OF HEARING SPECIALIST: N/A ALLERGIES: Reviewed and unchanged CONTRAST ALLERGY: NO. EXAM: CT -CONTRAST INDUCED NEPHROPATHY RISK FACTORS: Patient age > 60 years CREATININE: Creatinine Date Value Ref Range Status 09/21/2024 1.03 (H) 0.58 - 0.96 mg/dL Final 01/15/2024 1.13 (H) 0.58 - 0.96 mg/dL Final 12/28/2023 1.06 (H) 0.58 - 0.96 mg/dL Final Estimated Glomerular Filtration Rate Date Value Ref Range Status 09/21/2024 58 (L) >=60 mL/min/1.73m? Final Comment: Estimated Glomerular Filtration Rate (eGFR) is calculated using the 2020 CKD-EPI creatinine equation. This equation utilizes serum creatinine, sex, and age as parameters. The creatinine assay has traceable calibration to isotope dilution-mass spectrometry. Refer to KDIGO guidelines for clinical interpretation. In patients with unstable renal function, e.g. those with acute kidney injury, the eGFR may not accurately reflect actual GFR. eGFR- Date Value Ref Range Status 02/27/2021 60 Final P.O.C.T. RESULTS: POC done: Yes, See Lab Tab October 13, 2024 TREATMENT: N/A PERIPHERAL IV DATA: Ambulatory: A peripheral IV was started in the Right antecubital site with a Angio cath: 20 gauge. RADIOLOGY DEPARTMENT: CT; Exam(s) Completed: Pancreas SIGNATURE: RT Nils(R) PATIENT NAME: Mary Jane De Paz DATE: October 13, 2024 TIME: 3:06 PM [facility] 10-13-2024 Instructions Snow Stratton MD - 10/13/2024 12:04 PM EDT We discussed your memory concerns: - Your MOCA score today was 26/30, which is a slight decline from your 2021 score of 29/30. This score is still within the normal range, but I understand your concerns about memory loss and its impact on daily life. - You expressed interest in determining whether your symptoms could be related to Alzheimer s disease. I will order a PET amyloid scan to evaluate this further. This test will need to be done at the [facility]. - If the PET amyloid scan confirms Alzheimer s, we can consider starting you on Aricept, which may help with cognitive function. - I prescribed Vyvanse (10 mg capsule) to see if it helps with your focus and memory. This medication is not covered by insurance and may cost approximately $79 per month. You can purchase a small quantity to see if it is effective for you. If Vyvanse is not affordable or effective, we can explore other options, such as Ritalin or Aricept. - Your neuropsychological evaluations in the past suggested that depression and anxiety may be contributing to your symptoms. Continue taking Prozac and Wellbutrin as prescribed. If you feel these medications are not helping, we can discuss adjusting the dosages. We discussed your driving and daily activities: - You are still driving independently but have noted difficulty remembering routes and increased anxiety while driving. Please consider limiting driving to familiar routes and times when you feel most alert. If concerns about driving safety persist, we can discuss further options. - You are managing your medications and finances independently but have experienced occasional errors. Continue using your pill organizer and automatic bill payments to minimize mistakes. Let me know if you need additional support in these areas. We discussed your history of falls and balance issues: - You have had several falls in the past two years, resulting in injuries such as broken bones. You also noted difficulty with balance and gait. I will perform a CT scan of your brain with contrast to evaluate for any contributing factors. - Please take precautions to prevent falls, such as wearing supportive footwear, using assistive devices if needed, and avoiding uneven surfaces. We discussed your gastrointestinal concerns: - You have ongoing issues with incontinence, which you attribute to a prior surgical complication. You mentioned that the stimulator in your back is not providing sufficient relief. If you decide to pursue further evaluation or treatment options, such as Botox or other interventions, let me know. - You are scheduled for a CT scan of your pancreas today to evaluate a lesion. We will review the results at your next visit. We discussed your mental health and social concerns: - Your GDS score indicates significant depression. You mentioned feeling embarrassed and frustrated by memory lapses and social interactions. Continue with therapy and counseling as these may help address your emotional distress. - You expressed concerns about your relationship with your daughter and feelings of isolation. Consider engaging in social activities or hobbies that bring you antony, such as making greeting cards, to help improve your mood. Next steps: - Complete the CT scan of your brain and pancreas as scheduled. - Follow up with me after the CT scan results are available to discuss next steps, including the PET amyloid scan and medication options. - Try Vyvanse as prescribed and monitor for any improvement in focus or memory. Let me know if you experience any side effects or if the cost is prohibitive. - Continue taking Prozac and Wellbutrin as prescribed. Notify me if you feel your depression or anxiety is not well-controlled. Please contact our office if you have any new or worsening symptoms, or if you have questions about your care plan. documented in this encounter [facility] 10-13-2024 Note HNO ID: [id number] Author: SNOW STRATTON MD Service: ? Author Type: Physician Type: Progress Notes Filed: 10/13/2024 13:20 Note Text: [facility] Initial Consult Mary Jane De Paz is a 74 year old year old female who comes for Comprehensive Geriatric Assessment. Pt accompanied by: Self. Caregivers involved in care: HPI: Mary Jane De Paz is a 74-year-old female with a history of essential tremor, depression, and insomnia, and a complex past medical history who is presenting with concerns about worsening memory loss. Mary Jane reports a progressive decline in memory over several years, had her first neuropsychological testing in 2016, which has recently worsened, causing significant concern. She notes difficulty recalling words and maintaining the flow of conversation, often losing her train of thought during pauses. She also experiences challenges with driving, frequently needing to overthink familiar routes and occasionally forgetting the correct medical center to visit. Additionally, she reports a short temper, leading to occasional outbursts at her , who is 87 years old. Mary Jane lives with her and describes their relationship as generally good, despite occasional disagreements. She manages her own medications but sometimes confuses morning and evening doses. She also handles the household finances but has had some late payments due to forgetfulness. Most of her bills are automatically deducted, which she finds helpful. She has not had any recent fender benders or citations and denies any issues with stop signs. She performs her own laundry and has a rug cleaner helper who visits every two weeks. She cooks occasionally but sometimes feels overwhelmed by the task. She is able to bathe and dress herself independently. Mary Jane has a history of essential tremor, which she believes may contribute to her frequent dropping of objects and difficulty with fine motor skills, such as buttoning clothes. She has had several falls in the past two years, resulting in injuries including a broken rib, foot, and hip. She attributes these falls to various causes, including losing control of her feet, tripping on a curb, and an incident involving her . She has not had an MRI of her brain due to a metal stimulator in her back, which was implanted to address incontinence following a sphincter injury during hemorrhoid surgery. She reports that the stimulator is not effective and is considering its removal. She has had neuropsychological evaluations and has been taking Noriva and Prevagen, which she believes have provided some cognitive benefits. Mary Jane has a family history of cancer, including pancreatic and kidney cancer. She has a lesion on her pancreas and a possible spot on her kidney, which are being monitored. She underwent gastric bypass surgery, resulting in a weight loss of nearly 100 pounds, and no longer experiences sleep apnea. She takes trazodone for sleep but reports frequent awakenings and occasional afternoon naps. She is socially active but less so since moving to [place] to be closer to her daughter. She expresses feelings of jealousy and isolation due to her daughter's close relationship with her own daughter. Mary Jane is currently taking Prozac and Wellbutrin for depression and is open to adjusting her medication regimen to improve her symptoms. She denies any history of ADHD or use of ADHD medications. She is interested in exploring potential treatments for her cognitive symptoms and is willing to undergo further testing to determine if she has Alzheimer's disease. Any Family History of dementia? Yes Long-term Memory: Difficulty remembering distant events from the past like childhood, previous employment, wedding: NO Behavioral/personality: Withdrawn/Depressed: NO Crying spells: NO Anxious: NO History of aggression: NO History of irritability: NO Apathy:NO Recent changes in weight or appetite: NO Alcohol or Drug use: NO Smoking? NO Sleep: Do you snore loudly (louder than talking or loud enough to be heard through closed doors)? Since weight loss she has not needed the medication Are you restless when you sleep at night? NO Do you have problems falling a sleep? NO Do you have problems staying a sleep? NO Social History: Primary language: Icelandic Marital Status: Living situation: Home w/ Spouse Socially engaged? (participates in activities such as clubs, nondenominational, community center, sports, games, visiting friends/relatives, etc?): YES Caregiver [place] and Stress Are your feeling overwhelmed? NO Do you have concerns about your own health? NO Are you neglecting your own needs? NO Do you have financial concerns? NO Do your fear loss of employment? NO Do you have concerns about verbal/physical abuse? NO Do you feel that you are still capable of taking care of (more content not included)... [facility] 10-13-2024 History of Present illness Narrative [facility] Initial Consult Mary Jane De Paz is a 74 year old year old female who comes for Comprehensive Geriatric Assessment. Pt accompanied by: Self. Caregivers involved in care: HPI: Mary Jane De Paz is a 74-year-old female with a history of essential tremor, depression, and insomnia, and a complex past medical history who is presenting with concerns about worsening memory loss. Mary Jane reports a progressive decline in memory over several years, had her first neuropsychological testing in 2016, which has recently worsened, causing significant concern. She notes difficulty recalling words and maintaining the flow of conversation, often losing her train of thought during pauses. She also experiences challenges with driving, frequently needing to overthink familiar routes and occasionally forgetting the correct medical center to visit. Additionally, she reports a short temper, leading to occasional outbursts at her , who is 87 years old. Mary Jane lives with her and describes their relationship as generally good, despite occasional disagreements. She manages her own medications but sometimes confuses morning and evening doses. She also handles the household finances but has had some late payments due to forgetfulness. Most of her bills are automatically deducted, which she finds helpful. She has not had any recent fender benders or citations and denies any issues with stop signs. She performs her own laundry and has a rug cleaner helper who visits every two weeks. She cooks occasionally but sometimes feels overwhelmed by the task. She is able to bathe and dress herself independently. Mary Jane has a history of essential tremor, which she believes may contribute to her frequent dropping of objects and difficulty with fine motor skills, such as buttoning clothes. She has had several falls in the past two years, resulting in injuries including a broken rib, foot, and hip. She attributes these falls to various causes, including losing control of her feet, tripping on a curb, and an incident involving her . She has not had an MRI of her brain due to a metal stimulator in her back, which was implanted to address incontinence following a sphincter injury during hemorrhoid surgery. She reports that the stimulator is not effective and is considering its removal. She has had neuropsychological evaluations and has been taking Noriva and Prevagen, which she believes have provided some cognitive benefits. Mary Jane has a family history of cancer, including pancreatic and kidney cancer. She has a lesion on her pancreas and a possible spot on her kidney, which are being monitored. She underwent gastric bypass surgery, resulting in a weight loss of nearly 100 pounds, and no longer experiences sleep apnea. She takes trazodone for sleep but reports frequent awakenings and occasional afternoon naps. She is socially active but less so since moving to [place] to be closer to her daughter. She expresses feelings of jealousy and isolation due to her daughter's close relationship with her own daughter. Mary Jane is currently taking Prozac and Wellbutrin for depression and is open to adjusting her medication regimen to improve her symptoms. She denies any history of ADHD or use of ADHD medications. She is interested in exploring potential treatments for her cognitive symptoms and is willing to undergo further testing to determine if she has Alzheimer's disease. Any Family History of dementia? Yes Long-term Memory: Difficulty remembering distant events from the past like childhood, previous employment, wedding: NO Behavioral/personality: Withdrawn/Depressed: NO Crying spells: NO Anxious: NO History of aggression: NO History of irritability: NO Apathy:NO Recent changes in weight or appetite: NO Alcohol or Drug use: NO Smoking? NO Sleep: Do you snore loudly (louder than talking or loud enough to be heard through closed doors)? Since weight loss she has not needed the medication Are you restless when you sleep at night? NO Do you have problems falling a sleep? NO Do you have problems staying a sleep? NO Social History: Primary language: Icelandic Marital Status: Living situation: Home w/ Spouse Socially engaged? (participates in activities such as clubs, nondenominational, community center, sports, games, visiting friends/relatives, etc?): YES Caregiver [place] and Stress Are your feeling overwhelmed? NO Do you have concerns about your own health? NO Are you neglecting your own needs? NO Do you have financial concerns? NO Do your fear loss of employment? NO Do you have concerns about verbal/physical abuse? NO Do you feel that you are still capable of taking care of your relative? NO Are you willing to continue being in the caregiver role? NO B-ADLs: (I=independent,A=assistance,D=depe ndent) ?Bathing: I, Dressing: I, Toileting: I, Transferring:I, Continence: I, Feeding: I, I-ADLs: Ability to use phone: I, Shopping: I, Cooking: I, Housekeeping: I, Laundry: I, Transportation:I, beginning to have issues with directions. Forgetting to drive. Medications: {I, screwed up a few times. Handle Finances: I. She has had late payments as she forgot them PMHx: PAST MEDICAL HISTORY Diagnosis Date Allergic rhinitis Arthritis [facility] orthopedics, knee Asthma ([facility]) CKD (chronic kidney disease) 11/01/2018 Class 3 severe obesity with serious comorbidity and body mass index (BMI) of 40.0 to 44.9 in adult ([facility]) 08/19/2018 Coronary artery disease 10/28/[address] Salazar Fracture of right hip ([facility]) GERD (gastroesophageal reflux disease) History of transfusion HTN (hypertension) Hypothyroidism Mixed hyperlipidemia NIDDM (non-insulin dependent 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) MARIBEL on CPAP CPAP 9Cm Osteoarthritis of hip Renal lesion 01/15/2015 Suggest renal US every 1-2 years per PCP or nephro. Snoring Type 2 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 with hyperglycemia, with long-term current use of insulin ([facility]) 1999 PSHx: PAST SURGICAL HISTORY Procedure Laterality Date ABDOMINAL SURGERY HX COLONOSCOPY 11/05/2016 Tammi- divertiuclosis, internal hemorrhoids, repeat in 5 years COLONOSCOPY 04/02/2022 repeat in 5 years due to reported prior history of polyps COSMETIC ASSESSMENT EGD 11/05/2016 Tammi- gastritis EGD 09/08/2018 /Gastritis EGD 04/02/2020 EGD 04/02/2022 EYE SURGERY HX Bilateral cataract extraction 2009' GASTRECTOMY,PART DISTAL;W/GASTRODUODENOSTO GASTRIC BYPASS HX 12/13/2018 Laparoscopic Samina-en-Y gastric bypass HIP SURGERY HX Screws replaced JOINT REPLACEMENT HX LAPAROSCOPY DIAGNOSTIC 07/26/2023 internal hernias and mesenteric adhesion OOPHORECTOMY PARTIAL OR TOTAL PAST SURGICAL HISTORY OF 2009 hemmroidectomy/sphincterectomy - Dr Nichole PAST SURGICAL HISTORY OF 2008 total left knee replacement PAST SURGICAL HISTORY OF 2003 partial right knee replacement PAST SURGICAL HISTORY OF 1990 total hysterectomy PAST SURGICAL HISTORY OF 2010 lDr Mansoor - [place] elbow fracture - traumatic. radial head replacement PAST SURGICAL HISTORY OF Bilateral 2016 hand surgery PAST SURGICAL HISTORY OF Left RELEASE CONTRACTURE DEQUERVAINS S INSERT PINN METAL NTRL HIP Right 11/17/2021 SKIN BIOPSY HX TOTAL HIP REPLACEMENT Right TOTAL KNEE REPLACEMENT Right 09/15/2022 TUBAL LIGATION HX VAGINAL HYSTERECTOMY Home Meds: Prior to Admission medications : Medication biotin 5 mg tab, Sig Take 1 tablet by mouth once daily., Start Date 09/21/24, End Date , Taking? , Authorizing Provider Christine Morgan APRN.CD REACTOR OPERATOR Medication FLUoxetine (PROZAC) 40 mg capsule, Sig Take 1 capsule by mouth two times a day., Start Date 08/30/24, End Date , Taking? , Authorizing Provider Christine Morgan APRN.CD REACTOR OPERATOR Medication levothyroxine (SYNTHROID) 100 mcg tablet, Sig Take 1 tablet by mouth once daily., Start Date 08/30/24, End Date , Taking? , Authorizing Provider Christine Morgan APRN.CD REACTOR OPERATOR Medication esomeprazole (NEXIUM) 40 mg capsule, Sig TAKE ONE CAPSULE BY MOUTH twice daily., Start Date 08/10/24, End Date , Taking? , Authorizing Provider Christine Morgan APRN.CD REACTOR OPERATOR Medication dulaglutide (TRULICITY) 0.75 mg/0.5 mL pen injector, Sig Inject 0.75 mg subcutaneously one time a week. Inject 0.75 mg once weekly, Start Date 07/27/24, End Date 07/27/25, Taking? , Authorizing Provider Marimar Wilcox APRN.CD REACTOR OPERATOR Medication lisinopril (ZESTRIL) 20 mg tablet, Sig Take 1 tablet by mouth once daily., Start Date 06/08/24, End Date , Taking? , Authorizing Provider Christine Morgan APRN.CD REACTOR OPERATOR Medication atorvastatin (LIPITOR) 20 mg tablet, Sig Take 1 tablet by mouth daily at bedtime. For cholesterol., Start Date 06/08/24, End Date , Taking? , Authorizing Provider Christine Morgan APRN.CD REACTOR OPERATOR Medication famotidine (PEPCID) 20 mg tablet, Sig Take 1 tablet by mouth two times a day as needed (GERD). Patient taking differently: Take 20 mg by mouth two times a day., Start Date 06/08/24, End Date , Taking? , Authorizing Provider Christine Morgan APRN.CD REACTOR OPERATOR Medication buPROPion XL (WELLBUTRIN XL) 300 mg 24 hr tablet, Sig Take 1 tablet by mouth once daily., Start Date 06/08/24, End Date , Taking? , Authorizing Provider Christine Morgan APRN.CD REACTOR OPERATOR Medication traZODone (DESYREL) 100 mg tablet, Sig Take 2 tablets by mouth daily at bedtime., Start Date 06/08/24, End Date , Taking? , Authorizing Provider Christine Morgan APRN.CD REACTOR OPERATOR Medication Blood-Glucose Sensor (FREESTYLE JAUN 3 PLUS SENSOR) guido, Sig 1 Each every 2 weeks. CHANGE sensor every 15 days. USE FOR CONTINUOUS GLUCOSE MONITORING. Dx: E11.9 RISK FOR HYPOGLYCEMIA. Patient not taking: Reported on 10/05/2024, Start Date 05/11/24, End Date , Taking? , Authorizing Provider Marimar Wilcox APRN.CD REACTOR OPERATOR Medication coffee xt/phosphatidyl serine (NEURIVA ORIGINAL ORAL), Sig Take 2 tablets by mouth once daily., Start Date 07/11/22, End Date , Taking? , Authorizing Provider Donavon Patricia MD Medication APPLE CIDER VINEGAR ORAL, Sig Take 1 capsule by mouth once daily. Combined with the tumeric, Start Date 11/21/21, End Date , Taking? , Authorizing Provider Kaylen Lindsey, DO Medication lactose-reduced food (ADULT NUTRITIONAL SUPPLEMENT ORAL), Sig Take 1 capsule by mouth once daily. Tumeric - 2000mg capsule Patient not taking: No sig reported, Start Date 11/21/21, End Date 11/22/21, Taking? , Authorizing Provider Kaylen Lindsey, DO Medication MULTI-VITAMIN ORAL, Sig Take 1 tablet by mouth once daily. Takes bariatric multivitamin daily (contains extra calcium and iron), Start Date , End Date , Taking? , Authorizing Provider Provider, Ccizabela Other OTC med/supplements: None Medication Review: - ANY HIGH RISK MEDICATIONS (STOPP CRITERIA): NO ALLERGIES No Known Allergies Review of Systems Difficulty chew/swallow: No Pain: none Tremor: yes essential Incontinence - During the last 3 months did you leak urine? 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 No deformities, edema, or skin discoloration. Musculoskeletal: Normal Gait Titi Cognitive Exam (MOCA): 26/30 CDR Dementia Scale 1) Subjective Memory Loss: YES 2) Measurable Memory Loss: NO 3) IADLs: NO 4) BADLs: NO Driving Safely: Yes > 50% 6) Medications: No. Level: CDR 0.5 Depression Screening/Evaluation: GDS- 9/15 1. Memory loss (R41.3) Progressive memory loss over the past 10 years, with recent worsening. MOCA score decreased from 29/30 in 2020 to 26/30 currently, still within normal range. Neuropsychological evaluation suggests depression as a contributing factor. No significant thought dysfunction or behavioral issues noted. Patient expresses concerns about potential Alzheimer's disease. - Working out to order PET amyloid scan to evaluate for Alzheimer's disease; to be performed at [facility] as MRI is not possible due to stimulator. She is invested in knowing what she has so that she can plan for her future. Past evals dont specifically note a neurodegenerative condition but she does think she is getting worse, she wants a more concrete answer so she can work on her future. we did discuss ADHD as a confounder and trial of treatment for it till we get the amyloid pet and possible start on aricpet. - Discussed potential treatments for Alzheimer's, including Aricept and Namenda, if PET scan is positive. - Follow-up appointment scheduled after CT scan results are available to discuss further management. 2. Attention deficit hyperactivity disorder (ADHD), combined type (F90.2) Symptoms of losing train of thought and difficulty focusing. No previous diagnosis of ADHD. - Prescribed Vyvanse 10 mg capsule to be taken once daily; patient advised to try a small dose and monitor for improvement in symptoms. - Discussed potential cost of medication and advised patient to check with pharmacy for pricing. 3. Major depressive disorder, remission status unspecified, unspecified whether recurrent (F32.9) Currently on Prozac and Wellbutrin. Neuropsychological evaluation suggests depression as a contributing factor to memory loss. GDS score indicates significant depression. - Continue current antidepressant medications. Spent more than 60 mins in direct care of patient and 20 more mins in co ordination additional care Snow Stratton MD [facility] documented in this encounter [facility] 10-05-2024 Telephone encounter Note Endocrinology & Metabolism Social Work Progress Note Provider Action / FYI N/A Mary Jane De Paz [phone] Type of Contact: telephone Endocrine ELEVATOR TENDER Referral Reason: Medication Cost Concerns Contact Made?: YES- concession worker confirmed patient's Name, , and Address, Note/Intervention: ELEVATOR TENDER received referral for patient regarding concern for high CGM cost via [employer]. Care team reports patient had applied for [employer] Patient Assistance Program on 09/07/24. Care team sent ELEVATOR TENDER application for [employer]'s PAP. The application's creation date is May 2008, this program is no longer in existence. ELEVATOR TENDER contacted [employer] student services representative who stated there is no patient assistance program. ELEVATOR TENDER contacted [employer] at [phone]. There was an order that was shipped out on June 03. $144. Patient will need to call to re-order. Therapeutic Riding Instructor did confirm that insurance was paying for part of the cost. ELEVATOR TENDER contacted patient, she stated she found this application online. ELEVATOR TENDER informed her this program is no longer in existence and discussed [employer]'s cost. Patient stated she is still paying off the $144 and cannot keep paying this for sensors. ELEVATOR TENDER explained to patient that there is a special program with [facility] [place] called the Diabetes Management Program. ELEVATOR TENDER encouraged patient to call and see if she qualifies as this will help with medication cost. Unfortunately, there are no other patient assistance programs for CGM cost. ELEVATOR TENDER did state she could get a month's supply for $75, however, this will cost more than going through [employer]. Patient stated when she gets home she will call her insurance. [facility] referral placed: n/a Signature: KHUSHBOO Bridges LSW Patient Name: Mary Jane Lawson Baldev Date: 10/05/2024 Time: 1:04 PM Pager/Contact #: [phone] During this patient contact I spent approximately 50 minutes in reviewing the patient's chart and counseling regarding community resources and coordinating care. [facility] Work Phone: 10-05-2024 Miscellaneous Notes Endocrinology & Metabolism Social Work Progress Note Provider Action / FYI N/A Mary Jane De Paz [phone] Type of Contact: telephone Endocrine ELEVATOR TENDER Referral Reason: Medication Cost Concerns Contact Made?: YES- concession worker confirmed patient's Name, , and Address, Note/Intervention: ELEVATOR TENDER received referral for patient regarding concern for high CGM cost via [employer]. Care team reports patient had applied for [employer] Patient Assistance Program on 09/07/24. Care team sent ELEVATOR TENDER application for [employer]'s PAP. The application's creation date is May 2008, this program is no longer in existence. ELEVATOR TENDER contacted [employer] student services representative who stated there is no patient assistance program. ELEVATOR TENDER contacted [employer] at [phone]. There was an order that was shipped out on June 03. $144. Patient will need to call to re-order. Therapeutic Riding Instructor did confirm that insurance was paying for part of the cost. ELEVATOR TENDER contacted patient, she stated she found this application online. ELEVATOR TENDER informed her this program is no longer in existence and discussed [employer]'s cost. Patient stated she is still paying off the $144 and cannot keep paying this for sensors. ELEVATOR TENDER explained to patient that there is a special program with [employer] called the Diabetes Management Program. ELEVATOR TENDER encouraged patient to call and see if she qualifies as this will help with medication cost. Unfortunately, there are no other patient assistance programs for CGM cost. ELEVATOR TENDER did state she could get a month's supply for $75, however, this will cost more than going through [employer]. Patient stated when she gets home she will call her insurance. [facility] referral placed: n/a Signature: KHUSHBOO Bridges LSW Patient Name: Mary Jane De Paz Date: 10/05/2024 Time: 1:04 PM Pager/Contact #: [phone] During this patient contact I spent approximately 50 minutes in reviewing the patient's chart and counseling regarding community resources and coordinating care. documented in this encounter [facility] 10-05-2024 History of Present illness Narrative OFFICE VISIT PROGRESS NOTE CC Mary Jane De Paz is a 74 year old who presents today for blood sugar review, thyroid problem. HPI PATIENT OF DR. LOVE, ENDOCRINE Diagnosed with 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 type 2, ~ 2000 Last endocrine OV 05/11/2024 Some elements copied from my note 05/11/2024 which have been updated where appropriate, and all reflect current medical decision making from date of this visit. Sts is doing well Denies palpitation/tremor Weight is stable, a couple pounds down, smaller portions CURRENT DM MEDS TRULICITY 0.75 weekly injection CURRENT THYROID SYNTHROID 100 mcg daily SMBG Type of Monitor: Other Frequency of Monitorin times a day FREESTYLE JAUN 3+ is out of sensors BG Values: No CGM information, patient ran out of sensors Hypoglycemia: no Diet: No specific diet regimen Exercise: DM REVIEW OF SYSTEMS Last Eye Exam : 01/2024 Last Podiatry Exam: Cardiorespiratory: negative, denies chest pain, pressure Claudication: no Dyslipidemia: Yes, controlled on medication High Blood Pressure: Yes, controlled on medication CURRENT LABS Latest Ref Rng 09/21/2024 Hemoglobin A1C 4.3 - 5.6 % 5.9 (H) Estimated Average Glucose mg/dL 123 TSH 0.270 - 4.200 mIU/L 2.990 Free T4 0.9 - 1.7 ng/dL 1.1 Legend: (H) High Recent Labs 01/24/20 0844 01/24/20 0848 09/05/20 1203 10/19/20 1225 07/29/21 1407 07/29/21 1408 01/29/22 1220 04/22/22 1434 07/29/22 1157 08/27/22 1405 04/28/23 1156 07/07/23 1449 07/26/23 0854 07/26/23 1631 07/27/23 0507 07/28/23 0449 12/28/23 1346 01/15/24 1403 07/18/24 1120 ALT 38 -- 31 < > -- < > 38 -- 39* < > 23 -- 52* -- -- -- -- 37 -- AST 36* -- 32 < > -- < > 39* -- 42* < > 32 -- 35 -- -- -- -- 38* -- UCRR -- < > -- < > -- -- 102.9 -- -- -- 69.8 -- -- -- -- -- -- 144.6 -- UALBR -- < > -- < > -- -- 12.2 -- -- -- 13.2 -- -- -- -- -- -- 23.9 -- UALBCR -- < > -- < > -- -- 12 -- -- -- 19 -- -- -- -- -- -- 17 -- TSH 1.700 -- 2.250 < > -- < > 1.610 < > 1.180 -- 0.595 -- -- -- -- -- -- 1.180 2.771 TPROT 7.2 -- 7.0 < > -- < > 6.4 -- 6.9 < > 6.9 -- 7.8 -- -- -- -- 7.2 -- ALB 4.0 -- 4.1 < > -- < > 4.2 -- 3.7* < > 3.9 -- 4.2 -- -- -- -- 3.9 -- CA 9.5 -- 9.1 < > -- < > 10.0 < > 9.5 < > 9.6 < > 9.9 < > 8.5 8.8 -- 9.2 -- TBILI 0.2 -- 0.3 < > -- < > 0.2 -- 0.2 < > 0.2 -- 0.5 -- -- -- -- 0.3 -- ALKPHOS 101 -- 88 < > -- < > 98 -- 120 < > 93 -- 107 -- -- -- -- 114 -- GLUC 73* -- 113* < > -- < > 109* < > 133* < > 93 < > 212* < > 143* 116* -- 81 -- BUN 20 -- 10 < > -- < > 11 < > 13 < > 12 < > 14 < > 14 11 -- 13 -- CREAT 1.15* -- 1.01* < > -- < > 1.10* < > 1.00* < > 1.10* < > 1.19* < > 1.19* 1.19* 1.06* 1.13* -- NA 139 -- 134* < > -- < > 138 < > 130* < > 140 < > 133* < > 133* 136 -- 139 -- K 4.5 -- 4.5 < > -- < > 4.5 < > 4.7 < > 4.0 < > 4.2 < > 4.2 4.8 -- 3.9 -- CHLOR 103 -- 100 < > -- < > 102 < > 96* < > 102 < > 97 < > 99 99 -- 102 -- CO2 27 -- 24 < > -- < > 26 < > 24 < > 28 < > 26 < > 25 28 -- 26 -- ANION 9 -- 10 < > -- < > 10 < > 10 < > 10 < > 10 < > 9 9 -- 11 -- EGFROTH 47 -- 54 < > -- < > 54* < > 60 < > 53* < > 49* < > 49* 49* 56* 52* -- HBA1C 6.3* 6.3* -- 7.4* < > -- < > 5.8* < > 5.5 -- 5.6 -- -- -- -- -- -- 6.2* -- B12 >2,000* -- >2,000* -- >2,000* -- -- -- -- -- -- -- -- -- -- -- -- -- -- < > = values in this interval not displayed. Recent Labs 04/09/17 0819 04/13/17 1714 04/02/18 1102 07/05/18 1803 01/24/20 0844 09/05/20 1203 10/19/20 1225 07/29/21 1407 07/29/21 1408 01/29/22 1220 04/22/22 1434 07/29/22 1157 04/28/23 1156 01/15/24 1403 TG 183* -- 168* < > 107 187* -- -- < > 134 -- 106 -- 122 CHOL 140 -- 225* < > 138 127 -- -- < > 150 -- 132 -- 149 HDL 55 -- 54 < > 53 51 -- -- < > 64 -- 64 -- 61 VLDL 37* -- 34* < > 21 37* -- -- < > 27 -- 21 -- 24 LDL 48 -- 137* < > 64 39 -- -- < > 59 -- 47 -- 64 FASTTIME Unknown -- 12 -- 10 -- -- -- -- -- -- -- -- -- TCHDL 2.55 -- 4.17 < > 2.60 2.49 -- -- < > 2.34 -- 2.06 -- 2.44 LDLHDL 0.87 -- 2.54* < > 1.21 0.76 -- -- < > 0.92 -- 0.73 -- 1.05 NONHDL 85 -- 171* < > 85 76 -- -- < > 86 -- 68 -- 88 HBA1C -- < > 8.1* < > 6.3* 6.3* 7.4* < > -- < > 5.8* < > 5.5 5.6 6.2* HBA0 -- < > 186 < > 134 134 166 < > -- < > 120 < > 111 114 131 B12 -- -- -- < > >2,000* >2,000* -- >2,000* -- -- -- -- -- -- < > = values in this interval not displayed. PAST MEDICAL HISTORY Diagnosis Date Allergic rhinitis Arthritis [facility] orthopedics, knee Asthma ([facility]) CKD (chronic kidney disease) 11/01/2018 Class 3 severe obesity with serious comorbidity and body mass index (BMI) of 40.0 to 44.9 in adult ([facility]) 08/19/2018 Coronary artery disease 10/28/[address] Salazar Fracture of right hip ([facility]) GERD (gastroesophageal reflux disease) History of transfusion HTN (hypertension) Hypothyroidism Mixed hyperlipidemia NIDDM (non-insulin dependent 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) MARIBEL on CPAP CPAP 9Cm Osteoarthritis of hip Renal lesion 01/15/2015 Suggest renal US every 1-2 years per PCP or nephro. Snoring Type 2 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 with hyperglycemia, with long-term current use of insulin ([facility]) 1999 PAST SURGICAL HISTORY Procedure Laterality Date ABDOMINAL SURGERY HX COLONOSCOPY 11/05/2016 Tammi- divertiuclosis, internal hemorrhoids, repeat in 5 years COLONOSCOPY 04/02/2022 repeat in 5 years due to reported prior history of polyps COSMETIC ASSESSMENT EGD 11/05/2016 Tammi- gastritis EGD 09/08/2018 /Gastritis EGD 04/02/2020 EGD 04/02/2022 EYE SURGERY HX Bilateral cataract extraction 2009's GASTRECTOMY,PART DISTAL;W/GASTRODUODENOSTO GASTRIC BYPASS HX 12/13/2018 Laparoscopic Samina-en-Y gastric bypass HIP SURGERY HX Screws replaced JOINT REPLACEMENT HX LAPAROSCOPY DIAGNOSTIC 07/26/2023 internal hernias and mesenteric adhesion OOPHORECTOMY PARTIAL OR TOTAL PAST SURGICAL HISTORY OF 2009 hemmroidectomy/sphincterectomy - Dr Nichole PAST SURGICAL HISTORY OF 2008 total left knee replacement PAST SURGICAL HISTORY OF 2003 partial right knee replacement PAST SURGICAL HISTORY OF 1990 total hysterectomy PAST SURGICAL HISTORY OF 2010 lDr Mansoor - [place] elbow fracture - traumatic. radial head replacement PAST SURGICAL HISTORY OF Bilateral 2016 hand surgery PAST SURGICAL HISTORY OF Left RELEASE CONTRACTURE DEQUERVAINS S INSERT PINN METAL NTRL HIP Right 11/17/2021 SKIN BIOPSY HX TOTAL HIP REPLACEMENT Right TOTAL KNEE REPLACEMENT Right 09/15/2022 TUBAL LIGATION HX VAGINAL HYSTERECTOMY FAMILY HISTORY Problem Relation Age of Onset other (polio) Mother Diabetes Father other (Squamous cell ca) Father other (renal cell ca) Father 1999 other (htn) Father other (Thyroid Cancer) Sister other (thyroid disease) Sister ca other (renal cell ca) Brother 2010 Obesity Paternal Grandmother Obesity Daughter Thyroid Daughter Diabetes Daughter Anesthesia Problems No Family History Social History Tobacco Use Smoking status: Former Current packs/day: 0.00 Average packs/day: 1.5 packs/day for 22.0 years (33.0 ttl pk-yrs) Types: Cigarettes Start date: 1967 Quit date: 1989 Years since quittin.5 Passive exposure: Past Smokeless tobacco: Never Vaping Use Vaping status: Never Used Substance Use Topics Alcohol use: Yes Comment: once or twice a month Drug use: No Current Outpatient Medications Medication Sig FLUoxetine (PROZAC) 40 mg capsule Take 1 capsule by mouth two times a day. levothyroxine (SYNTHROID) 100 mcg tablet Take 1 tablet by mouth once daily. esomeprazole (NEXIUM) 40 mg capsule TAKE ONE CAPSULE BY MOUTH twice daily. dulaglutide (TRULICITY) 0.75 mg/0.5 mL pen injector Inject 0.75 mg subcutaneously one time a week. Inject 0.75 mg once weekly lisinopril (ZESTRIL) 20 mg tablet Take 1 tablet by mouth once daily. atorvastatin (LIPITOR) 20 mg tablet Take 1 tablet by mouth daily at bedtime. For cholesterol. famotidine (PEPCID) 20 mg tablet Take 1 tablet by mouth two times a day as needed (GERD). buPROPion XL (WELLBUTRIN XL) 300 mg 24 hr tablet Take 1 tablet by mouth once daily. traZODone (DESYREL) 100 mg tablet Take 2 tablets by mouth daily at bedtime. Blood-Glucose Sensor (FREESTYLE JAUN 3 PLUS SENSOR) guido 1 Each every 2 weeks. CHANGE sensor every 15 days. USE FOR CONTINUOUS GLUCOSE MONITORING. Dx: E11.9 RISK FOR HYPOGLYCEMIA. melatonin 10 mg tab Take 1 tablet by mouth at bedtime as needed for insomnia. (Patient not taking: Reported on 09/15/2024) Calcium Citrate 250 mg calcium tab Take 250 mg by mouth. coffee xt/phosphatidyl serine (NEURIVA ORIGINAL ORAL) Take 2 tablets by mouth once daily. APPLE CIDER VINEGAR ORAL Take 1 capsule by mouth once daily. Combined with the tumeric MULTI-VITAMIN ORAL Take 1 tablet by mouth once daily. Takes bariatric multivitamin daily No current facility-administered medications for this visit. ALLERGIES No Known Allergies REVIEW OF SYSTEMS - POSITIVES IN BOLD GENERAL:No weight loss, malaise or fevers HEENT:Negative for frequent or significant headaches, No changes in hearing or vision, no nose bleeds or other nasal problems NECK:Negative for lumps, goiter, pain and significant neck swelling RESPIRATORY: Negative for cough, hemoptysis, wheezing, COPD, dyspnea or shortness of breath CARDIOVASCULAR: Negative for chest pain, leg swelling, hypertension, CHF or palpitations PHYSICAL EXAMINATION: BP 136/80 (BP Site: Right Arm, BP Position: Sitting, BP Cuff Size: Regular Adult) Pulse 82 Resp 17 Ht 157.5 cm (5' 2) Wt 60.1 kg (132 lb 9.6 oz) SpO2 97% BMI 24.25 kg/m GENERAL: alert and appropriate, in no distress and well-hydrated, well nourished SKIN: no rash noted HEAD: normocephalic, no abnormality or lesion noted EYES: pupil sizes are equal NECK: no obvious neck swelling or mass ACANTHOSIS: none noted EXTREMITIES: normal NEUROLOGIC: no facial droop, speech is clear and fluent and no obvious deficit ASSESSMENT/PLAN (E11.9) Controlled type 2 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, without long-term current use of insulin ([facility]) (primary encounter diagnosis) Comment: Well controlled per current TRULICITY dosing. No changes at this time Recommended diet: Low carbohydrate and Low saturated fat, low simple sugar, high fiber diet Exercise minimally 150 minutes per week, increase as tolerated. Adequate hydration - 1/2 body wgt in oz of water daily, unless fluid restriction applies. I instructed the patient to monitor blood sugars 4 times per day If blood sugars are persistently high or low, to call our office. Patient to continue to follow up with her PCP and with other consultants regarding her other medical problems. Plan: Marimar Wilcox CNP documented in this encounter [facility] 10-05-2024 Note HNO ID: [id number] Author: MARIMAR WILCOX APRN.CNP Service: ? Author Type: Nurse Practitioner Type: Progress Notes Filed: 10/05/2024 14:12 Note Text: OFFICE VISIT PROGRESS NOTE CC Mary Jane De Paz is a 74 year old who presents today for blood sugar review, thyroid problem. HPI PATIENT OF DR. LOVE, ENDOCRINE Diagnosed with 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 type 2, ~ 2000 Last endocrine OV 05/11/2024 Some elements copied from my note 05/11/2024 which have been updated where appropriate, and all reflect current medical decision making from date of this visit. Sts is doing well Denies palpitation/tremor Weight is stable, a couple pounds down, smaller portions CURRENT DM MEDS TRULICITY 0.75 weekly injection CURRENT THYROID SYNTHROID 100 mcg daily SMBG Type of Monitor: Other Frequency of Monitorin times a day FREESTYLE JAUN 3+ is out of sensors BG Values: No CGM information, patient ran out of sensors Hypoglycemia: no Diet: No specific diet regimen Exercise: DM REVIEW OF SYSTEMS Last Eye Exam : 01/2024 Last Podiatry Exam: Cardiorespiratory: negative, denies chest pain, pressure Claudication: no Dyslipidemia: Yes, controlled on medication High Blood Pressure: Yes, controlled on medication CURRENT LABS Latest Ref Rng 09/21/2024 Hemoglobin A1C 4.3 - 5.6 % 5.9 (H) Estimated Average Glucose mg/dL 123 TSH 0.270 - 4.200 mIU/L 2.990 Free T4 0.9 - 1.7 ng/dL 1.1 Legend: (H) High Recent Labs 01/24/20 0844 01/24/20 0848 09/05/20 1203 10/19/20 1225 07/29/21 1407 07/29/21 1408 01/29/22 1220 04/22/22 1434 07/29/22 1157 08/27/22 1405 04/28/23 1156 07/07/23 1449 07/26/23 0854 07/26/23 1631 07/27/23 0507 07/28/23 0449 12/28/23 1346 01/15/24 1403 07/18/24 1120 ALT 38 -- 31 < > -- < > 38 -- 39* < > 23 -- 52* -- -- -- -- 37 -- AST 36* -- 32 < > -- < > 39* -- 42* < > 32 -- 35 -- -- -- -- 38* -- UCRR -- < > -- < > -- -- 102.9 -- -- -- 69.8 -- -- -- -- -- -- 144.6 -- UALBR -- < > -- < > -- -- 12.2 -- -- -- 13.2 -- -- -- -- -- -- 23.9 -- UALBCR -- < > -- < > -- -- 12 -- -- -- 19 -- -- -- -- -- -- 17 -- TSH 1.700 -- 2.250 < > -- < > 1.610 < > 1.180 -- 0.595 -- -- -- -- -- -- 1.180 2.771 TPROT 7.2 -- 7.0 < > -- < > 6.4 -- 6.9 < > 6.9 -- 7.8 -- -- -- -- 7.2 -- ALB 4.0 -- 4.1 < > -- < > 4.2 -- 3.7* < > 3.9 -- 4.2 -- -- -- -- 3.9 -- CA 9.5 -- 9.1 < > -- < > 10.0 < > 9.5 < > 9.6 < > 9.9 < > 8.5 8.8 -- 9.2 -- TBILI 0.2 -- 0.3 < > -- < > 0.2 -- 0.2 < > 0.2 -- 0.5 -- -- -- -- 0.3 -- ALKPHOS 101 -- 88 < > -- < > 98 -- 120 < > 93 -- 107 -- -- -- -- 114 -- GLUC 73* -- 113* < > -- < > 109* < > 133* < > 93 < > 212* < > 143* 116* -- 81 -- BUN 20 -- 10 < > -- < > 11 < > 13 < > 12 < > 14 < > 14 11 -- 13 -- CREAT 1.15* -- 1.01* < > -- < > 1.10* < > 1.00* < > 1.10* < > 1.19* < > 1.19* 1.19* 1.06* 1.13* -- NA 139 -- 134* < > -- < > 138 < > 130* < > 140 < > 133* < > 133* 136 -- 139 -- K 4.5 -- 4.5 < > -- < > 4.5 < > 4.7 < > 4.0 < > 4.2 < > 4.2 4.8 -- 3.9 -- CHLOR 103 -- 100 < > -- < > 102 < > 96* < > 102 < > 97 < > 99 99 -- 102 -- CO2 27 -- 24 < > -- < > 26 < > 24 < > 28 < > 26 < > 25 28 -- 26 -- ANION 9 -- 10 < > -- < > 10 < > 10 < > 10 < > 10 < > 9 9 -- 11 -- EGFROTH 47 -- 54 < > -- < > 54* < > 60 < > 53* < > 49* < > 49* 49* 56* 52* -- HBA1C 6.3* 6.3* -- 7.4* < > -- < > 5.8* < > 5.5 -- 5.6 -- -- -- -- -- -- 6.2* -- B12 >2,000* -- >2,000* -- >2,000* -- -- -- -- -- -- -- -- -- -- -- -- -- -- < > = values in this interval not displayed. Recent Labs 04/09/17 0819 04/13/17 1714 04/02/18 1102 07/05/18 1803 01/24/20 0844 09/05/20 1203 10/19/20 1225 07/29/21 1407 07/29/21 1408 01/29/22 1220 04/22/22 1434 07/29/22 1157 04/28/23 1156 01/15/24 1403 TG 183* -- 168* < > 107 187* -- -- < > 134 -- 106 -- 122 CHOL 140 -- 225* < > 138 127 -- -- < > 150 -- 132 -- 149 HDL 55 -- 54 < > 53 51 -- -- < > 64 -- 64 -- 61 VLDL 37* -- 34* < > 21 37* -- -- < > 27 -- 21 -- 24 LDL 48 -- 137* < > 64 39 -- -- < > 59 -- 47 -- 64 FASTTIME Unknown -- 12 -- 10 -- -- -- -- -- -- -- -- -- TCHDL 2.55 -- 4.17 < > 2.60 2.49 -- -- < > 2.34 -- 2.06 -- 2.44 LDLHDL 0.87 -- 2.54* < > 1.21 0.76 -- -- < > 0.92 -- 0.73 -- 1.05 NONHDL 85 -- 171* < > 85 76 -- -- < > 86 -- 68 -- 88 HBA1C -- < > 8.1* < > 6.3* 6.3* 7.4* < > -- < > 5.8* < > 5.5 5.6 6.2* HBA0 -- < > 186 < > 134 134 166 < > -- < > 120 < > 111 114 131 B12 -- -- -- < > >2,000* >2,000* -- >2,000* -- -- -- -- -- -- < > = values in this interval not displayed. PAST MEDICAL HISTORY Diagnosis Date Allergic rhinitis [facility], knee Asthma ([facility]) CKD (chronic kidney disease) 11/01/2018 Class 3 severe obesity with serious comorbidity and body mass index (BMI) of 40.0 to 44.9 in adult ([facility]) 08/19/2018 Coronary artery disease 10/28/[address] Salazar Fracture of right hip ([facility]) GERD (gastroesophageal refl (more content not included)... [facility]-30[facility]24 Telephone encounter Note Pt notified of results/provider instructions. She verbalized understanding. Pt states she does not use Tylenol and drinks alcohol minimally. Ramo Russo LPN [facility] 09-30-2024 Miscellaneous Notes Pt notified of results/provider instructions. She verbalized understanding. Pt states she does not use Tylenol and drinks alcohol minimally. Ramo Russo LPN Can please let patient know that I received her labs. Everything looked okay, except her liver enzymes were just mildly elevated. Any recent alcohol or tylenol use. I would like to have her repeat this in a couple of weeks. The order is in. Christine Morgan APRN.JOSEFINA documented in this encounter [facility] 09-28-2024 Telephone encounter Note Can please let patient know that I received her labs. Everything looked okay, except her liver enzymes were just mildly elevated. Any recent alcohol or tylenol use. I would like to have her repeat this in a couple of weeks. The order is in. Christine Morgan APRN.JOSEFINA [facility] 09-27-2024 Note HNO ID: [id number] Author: LORY CHAN RN Service: ? Author Type: Registered Nurse Type: Progress Notes Filed: 09/27/2024 16:02 Note Text: [facility] Care Path Telephonic Outreach Provider Action/FYI She reports that she dose not understand why she is getting the calls. She feels she has no need for any additional information about her chronic diseases and asks for no additional calls.Will discharge from Care Coordination. Patient identified by Name and Date of . Discussed care with patient. Program Details Chronic Disease Management Status: Enrolled Effective Dates: 06/23/2024 - present Responsible Staff: Lory Chan RN Support and Services: Chronic Obstructive Pulmonary Disease (COPD), Hypertension, Chronic Kidney Disease (CKD), Diabetes Program Goals Targets Target Due Completed Completed By Outcome General education provided (managing stress, where to go/how to contact, etc.) 07/25/2024 -- -- -- Annual Medicare Wellness visit addressed 09/22/2024 -- -- -- Annual Nephrology visit addressed 09/22/2024 -- -- -- Annual Pulmonology visit addressed 09/22/2024 -- -- -- Biannual PCP visit addressed 09/22/2024 -- -- -- CKD lab care gaps addressed 09/22/2024 -- -- -- Comprehensive CKD education provided 09/22/2024 -- -- -- Comprehensive COPD education provided 09/22/2024 -- -- -- Patient-stated goal addressed (add comment) 09/22/2024 -- -- -- More energy, more social life, Comprehensive Diabetes education provided 09/22/2024 08/25/2024 Lory Chan RN Complete Diabetes lab care gaps addressed 09/22/2024 08/25/2024 Lory Chan RN Complete/Scheduled Comprehensive HTN education provided 09/22/2024 08/10/2024 Lory Chan RN Complete HTN lab care gaps addressed 09/22/2024 08/10/2024 Lory Chan RN Complete/Scheduled Intake assessments completed: ADLs, Fall Risk, SDOH 07/25/2024 06/23/2024 Lory Chan RN Complete Assessments No documentation this encounter Interventions No checklist tasks for this episode were completed during this visit, and no tasks for this episode are pending completion. Lory Chan RN September 27, 2024 3:58 PM [facility] 09-27-2024 History of Present illness Narrative Images from the original note were not included. [facility] Telephonic Outreach Provider Action/FYI She reports that she dose not understand why she is getting the calls. She feels she has no need for any additional information about her chronic diseases and asks for no additional calls.Will discharge from Care Coordination. Patient identified by Name and Date of . Discussed care with patient. Program Details Chronic Disease Management Status: Enrolled Effective Dates: 06/23/2024 - present Responsible Staff: Lory Chan RN Support and Services: Chronic Obstructive Pulmonary Disease (COPD), Hypertension, Chronic Kidney Disease (CKD), Diabetes Program Goals Targets Target Due Completed Completed By Outcome General education provided (managing stress, where to go/how to contact, etc.) 07/25/2024 -- -- -- Annual Medicare Wellness visit addressed 09/22/2024 -- -- -- Annual Nephrology visit addressed 09/22/2024 -- -- -- Annual Pulmonology visit addressed 09/22/2024 -- -- -- Biannual PCP visit addressed 09/22/2024 -- -- -- CKD lab care gaps addressed 09/22/2024 -- -- -- Comprehensive CKD education provided 09/22/2024 -- -- -- Comprehensive COPD education provided 09/22/2024 -- -- -- Patient-stated goal addressed (add comment) 09/22/2024 -- -- -- More energy, more social life, Comprehensive Diabetes education provided 09/22/2024 08/25/2024 Lory Chan RN Complete Diabetes lab care gaps addressed 09/22/2024 08/25/2024 Lory Chan RN Complete/Scheduled Comprehensive HTN education provided 09/22/2024 08/10/2024 Lory Chan RN Complete HTN lab care gaps addressed 09/22/2024 08/10/2024 Lory Chan RN Complete/Scheduled Intake assessments completed: ADLs, Fall Risk, SDOH 07/25/2024 06/23/2024 Lory Chan RN Complete Assessments No documentation this encounter Interventions No checklist tasks for this episode were completed during this visit, and no tasks for this episode are pending completion. Lory Chan RN September 27, 2024 3:58 PM documented in this encounter [facility] 09-27-2024 Note Patient Outreach (AM [facility]) BALDEVMARY JANE ([id number]) 1950 F Date Time Provider Department 09/27/24 LORY CHAN During your visit today, we recorded the following information about you: Lory Chan RN 09/27/2024 4:02 PM Signed [facility] Telephonic Outreach Provider / She reports that she dose not understand why she is getting the calls. She feels she has no need for any additional information about her chronic diseases and asks for no additional calls.Will discharge from Care Coordination. Patient identified by Name and Date of . Discussed care with patient. Program Details Chronic Disease Management Status: Enrolled Effective Dates: 06/23/2024 - present Responsible Staff: Lory Chan RN Support and Services: Chronic Obstructive Pulmonary Disease (COPD), Hypertension, Chronic Kidney Disease (CKD), Diabetes Program Goals Targets Target Due Completed Completed By Outcome General education provided (managing stress, where to go/how to contact, etc.) 07/25/2024 -- -- -- Annual Medicare Wellness visit addressed 09/22/2024 -- -- -- Annual Nephrology visit addressed 09/22/2024 -- -- -- Annual Pulmonology visit addressed 09/22/2024 -- -- -- Biannual PCP visit addressed 09/22/2024 -- -- -- CKD lab care gaps addressed 09/22/2024 -- -- -- Comprehensive CKD education provided 09/22/2024 -- -- -- Comprehensive COPD education provided 09/22/2024 -- -- -- Patient-stated goal addressed (add comment) 09/22/2024 -- -- -- More energy, more social life, Comprehensive Diabetes education provided 09/22/2024 08/25/2024 Lory Chan RN Complete Diabetes lab care gaps addressed 09/22/2024 08/25/2024 Lory Chan RN Complete/Scheduled Comprehensive HTN education provided 09/22/2024 08/10/2024 Lory Chan RN Complete HTN lab care gaps addressed 09/22/2024 08/10/2024 Lory Chan RN Complete/Scheduled Intake assessments completed: ADLs, Fall Risk, SDOH 07/25/2024 06/23/2024 Lory Chan RN Complete Assessments No documentation this encounter Interventions No checklist tasks for this episode were completed during this visit, and no tasks for this episode are pending completion. Lory Chan RN September 27, 2024 3:58 PM Allergies As of Date: 09/27/2024 (No Known Allergies) Date Reviewed: 09/21/2024 Reviewed by: Ramo Russo LPN - Fully Assessed Prescriptions as of 09/27/2024 - biotin 5 mg tab Take 1 tablet by mouth once daily. - FLUoxetine (PROZAC) 40 mg capsule Take 1 capsule by mouth two times a day. - levothyroxine (SYNTHROID) 100 mcg tablet Take 1 tablet by mouth once daily. - esomeprazole (NEXIUM) 40 mg capsule TAKE ONE CAPSULE BY MOUTH twice daily. - dulaglutide (TRULICITY) 0.75 mg/0.5 mL pen injector Inject 0.75 mg subcutaneously one time a week. Inject 0.75 mg once weekly - lisinopril (ZESTRIL) 20 mg tablet Take 1 tablet by mouth once daily. - atorvastatin (LIPITOR) 20 mg tablet Take 1 tablet by mouth daily at bedtime. For cholesterol. - famotidine (PEPCID) 20 mg tablet Take 1 tablet by mouth two times a day as needed (GERD). - buPROPion XL (WELLBUTRIN XL) 300 mg 24 hr tablet Take 1 tablet by mouth once daily. - traZODone (DESYREL) 100 mg tablet Take 2 tablets by mouth daily at bedtime. - Blood-Glucose Sensor (FREESTYLE JAUN 3 PLUS SENSOR) guido 1 Each every 2 weeks. CHANGE sensor every 15 days. USE FOR CONTINUOUS GLUCOSE MONITORING. Dx: E11.9 RISK FOR HYPOGLYCEMIA. - Calcium Citrate 250 mg calcium tab Take 250 mg by mouth. - coffee xt/phosphatidyl serine (NEURIVA ORIGINAL ORAL) Take 2 tablets by mouth once daily. - APPLE CIDER VINEGAR ORAL Take 1 capsule by mouth once daily. Combined with the tumeric - lactose-reduced food (ADULT NUTRITIONAL SUPPLEMENT ORAL) (Discontinued) Take 1 capsule by mouth once daily. Tumeric - 2000mg capsule - MULTI-VITAMIN ORAL Take 1 tablet by mouth once daily. 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] 08/05/2010 HTN (hypertension) [I10] 12/05/2011 10/14/2014 Hyperlipidemia [E78.5] 08/04/2012 Hypothyroid [E03.9] 11/28/2012 Generalized postprandial abdominal pain [R10.84]09/01/2013 Diarrhea [R19.7] 09/01/2013 08/30/2020 IBS (irritable bowel syndrome) [K58.9] 09/01/2013 Moderate episode of recurrent major depressive *04/28/2014 Essential hypertension [I10] 10/14/2014 MARIBEL (obstructive sleep apnea) [G47.33] 09/17/2015 Cognitive decline [R41.89] 01/10/2016 Other symbolic dysfunction [R48.8] 04/22/2016 Actinic keratoses [L57.0] 07/30/2016 GERD without esophagitis [K21.9] 10/09/2016 Encounter for screening colonoscopy [Z12.11] 10/09/2016 08/30/2020 Pain of foot [M79.673] 11/27/2016 08/30/2020 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 (more content not included)... [facility] 09-21-2024 Instructions Christine Morgan APRN.CNP - 09/21/2024 3:07 PM EDT Follow up in 6 months Referred to Gerontology- insomnia and memory loss Lab works documented in this encounter [facility] 09-21-2024 Note HNO ID: [id number] Author: CHRISTINE MORGAN APRN.CNP Service: ? Author Type: Nurse Practitioner Type: Progress Notes Filed: 09/21/2024 17:51 Note Text: This is a 74 year old female who presents today with: Patient presents with: Follow Up HISTORY OF PRESENT ILLNESS: Mary Jane De Paz is a 74 year old female. Patient presents with: Follow Up Pt is here today with complaint of memory issues and poor sleep. Chronic Shoulder pain, neck pain and wrist -US showed bursitis and mild rotator cuff tear Following w/ ortho. Memory Issues -pt states she gets lost when driving causes her anxiety - can't remember peoples name, places and direction -forgetfulness has advanced in the past several months -Can't find words, droppings things, forgets who she had an conversations with or which person she shared information with - pt is concerned it could be dementia or alzheimer, has a family history of dementia (grandparents) Insomnia - Wakes up during the night, twice a night - pt is on max dose of trazodone and started taking OTC pm tylenol to help her with the sleep HTN - taking lisinopril 20 mg as prescribed -does not monitor BP at home -denies sob, palpitation, chest pain, pt does have mild dizziness Depression and anxiety - Pt is on Wellbutrin and Prozac, states still depressed but not serious thoughts of harming self -worries about the future - controlled for now PAST MEDICAL HISTORY: PAST MEDICAL HISTORY Diagnosis Date Allergic rhinitis Arthritis [facility] orthopedics, knee Asthma ([facility]) CKD (chronic kidney disease) 11/01/2018 Class 3 severe obesity with serious comorbidity and body mass index (BMI) of 40.0 to 44.9 in adult ([facility]) 08/19/2018 Coronary artery disease 10/28/[address] Salazar Fracture of right hip ([facility]) GERD (gastroesophageal reflux disease) History of transfusion HTN (hypertension) Hypothyroidism Mixed hyperlipidemia NIDDM (non-insulin dependent 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) MARIBEL on CPAP CPAP 9Cm Osteoarthritis of hip Renal lesion 01/15/2015 Suggest renal US every 1-2 years per PCP or nephro. Snoring Type 2 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 with hyperglycemia, with long-term current use of insulin ([facility]) 1999 PAST SURGICAL HISTORY Procedure Laterality Date ABDOMINAL SURGERY HX COLONOSCOPY 11/05/2016 Tammi- divertiuclosis, internal hemorrhoids, repeat in 5 years COLONOSCOPY 04/02/2022 repeat in 5 years due to reported prior history of polyps COSMETIC ASSESSMENT EGD 11/05/2016 Tammi- gastritis EGD 09/08/2018 /Gastritis EGD 04/02/2020 EGD 04/02/2022 EYE SURGERY HX Bilateral cataract extraction 2009' GASTRECTOMY,PART DISTAL;W/GASTRODUODENOSTO GASTRIC BYPASS HX 12/13/2018 Laparoscopic Samina-en-Y gastric bypass HIP SURGERY HX Screws replaced JOINT REPLACEMENT HX LAPAROSCOPY DIAGNOSTIC 07/26/2023 internal hernias and mesenteric adhesion OOPHORECTOMY PARTIAL OR TOTAL PAST SURGICAL HISTORY OF 2009 hemmroidectomy/sphincterectomy - Dr Nichole PAST SURGICAL HISTORY OF 2008 total left knee replacement PAST SURGICAL HISTORY OF 2003 partial right knee replacement PAST SURGICAL HISTORY OF 1990 total hysterectomy PAST SURGICAL HISTORY OF 2010 lDr Mansoor - [place] elbow fracture - traumatic. radial head replacement PAST SURGICAL HISTORY OF Bilateral 2016 hand surgery PAST SURGICAL HISTORY OF Left RELEASE CONTRACTURE DEQUERVAINS S INSERT PINN METAL NTRL HIP Right 11/17/2021 SKIN BIOPSY HX TOTAL HIP REPLACEMENT Right TOTAL KNEE REPLACEMENT Right 09/15/2022 TUBAL LIGATION HX VAGINAL HYSTERECTOMY 1979' ALLERGIES Patient has no known allergies. MEDICATIONS Current Outpatient Medications Medication Sig FLUoxetine (PROZAC) 40 mg capsule Take 1 capsule by mouth two times a day. levothyroxine (SYNTHROID) 100 mcg tablet Take 1 tablet by mouth once daily. esomeprazole (NEXIUM) 40 mg capsule TAKE ONE CAPSULE BY MOUTH twice daily. dulaglutide (TRULICITY) 0.75 mg/0.5 mL pen injector Inject 0.75 mg subcutaneously one time a week. Inject 0.75 mg once weekly lisinopril (ZESTRIL) 20 mg tablet Take 1 tablet by mouth once daily. atorvastatin (LIPITOR) 20 mg tablet Take 1 tablet by mouth daily at bedtime. For cholesterol. famotidine (PEPCID) 20 mg tablet Take 1 tablet by mouth two times a day as needed (GERD). buPROPion XL (WELLBUTRIN XL) 300 mg 24 hr tablet Take 1 tablet by mouth once daily. traZODone (DESYREL) 100 mg tablet Take 2 tablets by mouth daily at bedtime. Blood-Glucose Sensor (FREESTYLE JAUN 3 PLUS SENSOR) guido 1 Each every 2 weeks. CHANGE sensor every 15 days. USE FOR CONTINUOUS GLUCOSE MONITORING. Dx: E11.9 RISK FOR HYPOGLYCEMIA. Calcium Citrate 250 mg calcium tab Take 250 mg by mouth. coffee xt/phosphatidyl serine (NEURIVA ORIGINAL ORAL) Take 2 tablets by mouth once daily. APPLE CIDER VINEGAR ORAL Take 1 capsule by mouth once daily. Combined with the tume (more content not included)... [facility] 09-21-2024 History of Present illness Narrative This is a 74 year old female who presents today with: Patient presents with: Follow Up HISTORY OF PRESENT ILLNESS: Mary Jane De Paz is a 74 year old female. Patient presents with: Follow Up Pt is here today with complaint of memory issues and poor sleep. Chronic Shoulder pain, neck pain and wrist -US showed bursitis and mild rotator cuff tear Following w/ ortho. Memory Issues -pt states she gets lost when driving causes her anxiety - can't remember peoples name, places and direction -forgetfulness has advanced in the past several months -Can't find words, droppings things, forgets who she had an conversations with or which person she shared information with - pt is concerned it could be dementia or alzheimer, has a family history of dementia (grandparents) Insomnia - Wakes up during the night, twice a night - pt is on max dose of trazodone and started taking OTC pm tylenol to help her with the sleep HTN - taking lisinopril 20 mg as prescribed -does not monitor BP at home -denies sob, palpitation, chest pain, pt does have mild dizziness Depression and anxiety - Pt is on Wellbutrin and Prozac, states still depressed but not serious thoughts of harming self -worries about the future - controlled for now PAST MEDICAL HISTORY: PAST MEDICAL HISTORY Diagnosis Date Allergic rhinitis Arthritis [facility] orthopedics, knee Asthma ([facility]) CKD (chronic kidney disease) 11/01/2018 Class 3 severe obesity with serious comorbidity and body mass index (BMI) of 40.0 to 44.9 in adult ([facility]) 08/19/2018 Coronary artery disease 10/28/[address] Salazar Fracture of right hip ([facility]) GERD (gastroesophageal reflux disease) History of transfusion HTN (hypertension) Hypothyroidism Mixed hyperlipidemia NIDDM (non-insulin dependent 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) MARIBEL on CPAP CPAP 9Cm Osteoarthritis of hip Renal lesion 01/15/2015 Suggest renal US every 1-2 years per PCP or nephro. Snoring Type 2 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 with hyperglycemia, with long-term current use of insulin ([facility]) 1999 PAST SURGICAL HISTORY Procedure Laterality Date ABDOMINAL SURGERY HX COLONOSCOPY 11/05/2016 Tammi- divertiuclosis, internal hemorrhoids, repeat in 5 years COLONOSCOPY 04/02/2022 repeat in 5 years due to reported prior history of polyps COSMETIC ASSESSMENT EGD 11/05/2016 Tammi- gastritis EGD 09/08/2018 /Gastritis EGD 04/02/2020 EGD 04/02/2022 EYE SURGERY HX Bilateral cataract extraction 2009' GASTRECTOMY,PART DISTAL;W/GASTRODUODENOSTO GASTRIC BYPASS HX 12/13/2018 Laparoscopic Samina-en-Y gastric bypass HIP SURGERY HX Screws replaced JOINT REPLACEMENT HX LAPAROSCOPY DIAGNOSTIC 07/26/2023 internal hernias and mesenteric adhesion OOPHORECTOMY PARTIAL OR TOTAL PAST SURGICAL HISTORY OF 2009 hemmroidectomy/sphincterectomy - Dr Nichole PAST SURGICAL HISTORY OF 2008 total left knee replacement PAST SURGICAL HISTORY OF 2003 partial right knee replacement PAST SURGICAL HISTORY OF 1990 total hysterectomy PAST SURGICAL HISTORY OF 2010 lDr Mansoor - [place] elbow fracture - traumatic. radial head replacement PAST SURGICAL HISTORY OF Bilateral 2016 hand surgery PAST SURGICAL HISTORY OF Left RELEASE CONTRACTURE DEQUERVAINS S INSERT PINN METAL NTRL HIP Right 11/17/2021 SKIN BIOPSY HX TOTAL HIP REPLACEMENT Right TOTAL KNEE REPLACEMENT Right 09/15/2022 TUBAL LIGATION HX VAGINAL HYSTERECTOMY 1979' ALLERGIES Patient has no known allergies. MEDICATIONS Current Outpatient Medications Medication Sig FLUoxetine (PROZAC) 40 mg capsule Take 1 capsule by mouth two times a day. levothyroxine (SYNTHROID) 100 mcg tablet Take 1 tablet by mouth once daily. esomeprazole (NEXIUM) 40 mg capsule TAKE ONE CAPSULE BY MOUTH twice daily. dulaglutide (TRULICITY) 0.75 mg/0.5 mL pen injector Inject 0.75 mg subcutaneously one time a week. Inject 0.75 mg once weekly lisinopril (ZESTRIL) 20 mg tablet Take 1 tablet by mouth once daily. atorvastatin (LIPITOR) 20 mg tablet Take 1 tablet by mouth daily at bedtime. For cholesterol. famotidine (PEPCID) 20 mg tablet Take 1 tablet by mouth two times a day as needed (GERD). buPROPion XL (WELLBUTRIN XL) 300 mg 24 hr tablet Take 1 tablet by mouth once daily. traZODone (DESYREL) 100 mg tablet Take 2 tablets by mouth daily at bedtime. Blood-Glucose Sensor (Mobi-Moto JAUN 3 PLUS SENSOR) guido 1 Each every 2 weeks. CHANGE sensor every 15 days. USE FOR CONTINUOUS GLUCOSE MONITORING. Dx: E11.9 RISK FOR HYPOGLYCEMIA. Calcium Citrate 250 mg calcium tab Take 250 mg by mouth. coffee xt/phosphatidyl serine (NEURIVA ORIGINAL ORAL) Take 2 tablets by mouth once daily. APPLE CIDER VINEGAR ORAL Take 1 capsule by mouth once daily. Combined with the tumeric MULTI-VITAMIN ORAL Take 1 tablet by mouth once daily. Takes bariatric multivitamin daily No current facility-administered medications for this visit. FAMILY HISTORY Problem Relation Age of Onset other (polio) Mother Diabetes Father other (Squamous cell ca) Father other (renal cell ca) Father 1999 other (htn) Father other (Thyroid Cancer) Sister other (thyroid disease) Sister ca other (renal cell ca) Brother 2010 Obesity Paternal Grandmother Obesity Daughter Thyroid Daughter Diabetes Daughter Anesthesia Problems No Family History Social History Tobacco Use Smoking status: Former Current packs/day: 0.00 Average packs/day: 1.5 packs/day for 22.0 years (33.0 ttl pk-yrs) Types: Cigarettes Start date: 1967 Quit date: 1989 Years since quittin.5 Passive exposure: Past Smokeless tobacco: Never Vaping Use Vaping status: Never Used Substance Use Topics Alcohol use: Yes Comment: once or twice a month Drug use: No REVIEW OF SYSTEMS PAIN ASSESSMENT: HISTORY OF CHRONIC PAIN OR CURRENTLY BEING TREATED FOR A CHRONIC PAIN CONDITION: No GENERAL: No weight loss, malaise or fevers HEENT: Negative for frequent or significant headaches, No changes in hearing or vision, no nose bleeds or other nasal problems NECK: Negative for lumps, goiter, pain and significant neck swelling RESPIRATORY: Negative for cough, hemoptysis, wheezing, COPD, dyspnea or shortness of breath CARDIOVASCULAR: Negative for chest pain, leg swelling, CHF or palpitations GI: No nausea, vomiting, or diarrhea PSYCH: Negative for sleep disturbance, mood disorder and recent psychosocial stressors, Positive for depression: sleep disturbance: and anxiety: NEURO: No history of headaches, syncope, paralysis, seizures. Positive for central tremors All other reviewed and negative other than HPI. EXAM: BP 146/88 Pulse 74 Resp 16 Wt 61.2 kg (135 lb) SpO2 100% BMI 24.69 kg/m PHYSICAL EXAM: General Appearance: Well appearing, alert, in no acute distress, well-hydrated, well nourished.. Skin: Skin color, texture, turgor normal, no suspicious rashes or lesions. Head: Normocephalic, no masses, lesions, tenderness or abnormalities. Eyes: Anicteric sclera. Pupils are equally round and reactive to light. Extraocular movements are intact. . Ears: External ears normal, canals clear. Nose/Sinuses: Nares normal, septum midline, mucosa normal, no drainage or sinus tenderness. Neck: Supple, no adenopathy; thyroid symmetric, normal size, no bruits. Lungs: Lungs clear to auscultation. No wheezing, rhonchi, rales.. Heart: RRR without murmur, gallop, or rubs. No ectopy. Abdomen: Abdomen soft, non-tender. Bowel sounds normal. No masses, organomegaly. Musculoskeletal: No joint swelling, deformity, or tenderness. Neurologic: Gait normal. Sensation grossly intact. ASSESSMENT/PLAN: 1. Memory loss - ICD9: 780.93, ICD10: R41.3 (primary diagnosis) -pt has been progressively losing memory -labs, B12, -Referred to the Gerontology for further evaluation/treatment. May be a component of anxiety and/or polypharmacy. 2. Essential hypertension - ICD9: 401.9, ICD10: I10 - Uncontrolled -- continue to monitor. - Continue current medications - Recommend home blood pressure monitoring, to bring results to next visit - Encouraged sodium restriction, DASH or Mediterranean diet - Recommend regular aerobic exercise 3. Mixed hyperlipidemia - ICD9: 272.2, ICD10: E78.2 - Control undetermined, due for labs - Counseled on healthy diet and regular exercise -Lipids panel 4. 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, unspecified whether longterm insulin use (HCC) - ICD9: 250.00, ICD10: E11.9 - Control undetermined, due for labs - Continue current medications - Counseled on healthy diet and regular exercise -A1C 5. Insomnia, unspecified type - ICD9: 780.52, ICD10: G47.00 -Trazodone max dose - taking OCT PM tylenol for sleep, not controlled Follow-up with gerontology, as suggested. Discussed treatment plan and patient voices understanding. Patient's questions answered appropriately. Medications and potential side effects were discussed and patient voices understanding. Return to the office as scheduled or as needed for worsening/no improvement. Christine Morgan APRN.CD REACTOR OPERATOR documented in this encounter [facility] 09-18-2024 Note HNO ID: [id number] Author: ISH HIGGINS MD Service: ? Author Type: Physician Type: Progress Notes Filed: 09/23/2024 14:56 Note Text: Hand Surgery New Pt Note HPI: Spinal cord stimulator (no MRI) Hx L IF DIP arthrodesis and bilat CTR 2015 bilat 2nd and 3rd MCP pyrocarbon arthroplasties, doing well 2018 Freddie DeQR 2022 R DRF Tx nonop Mary Jane De Paz is a 74-year-old female with a history of right wrist pain, seen today for evaluation. Right Wrist Pain: - Chronic right wrist pain, worsening over the past few months. - Pain described as sharp and hot. - Pain location confirmed on the ulnar side of the wrist. - Aggravated by lifting heavy objects and certain motions. - Pain occurs approximately 5 out of 7 days per week. - Mary Jane has been wearing a wrist brace intermittently. - Mary Jane has received ultrasound-guided wrist injections in the past, with decreasing efficacy. - Denies numbness in the hands. - No significant pain in the left wrist. - History of carpal tunnel release. - Reports difficulty with fine motor skills, such as buttoning buttons. - Mary Jane has a history of falls, including a recent fall during the winter that resulted in a tibia fracture. - Mary Jane has a spinal stimulator in place, which precludes MRI imaging. PMH: PAST MEDICAL HISTORY Diagnosis Date Allergic rhinitis Arthritis [facility] orthopedics, knee Asthma ([facility]) CKD (chronic kidney disease) 11/01/2018 Class 3 severe obesity with serious comorbidity and body mass index (BMI) of 40.0 to 44.9 in adult ([facility]) 08/19/2018 Coronary artery disease 10/28/[address] Salazar Fracture of right hip ([facility]) GERD (gastroesophageal reflux disease) History of transfusion HTN (hypertension) Hypothyroidism Mixed hyperlipidemia NIDDM (non-insulin dependent 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) MARIBEL on CPAP CPAP 9Cm Osteoarthritis of hip Renal lesion 01/15/2015 Suggest renal US every 1-2 years per PCP or nephro. Snoring Type 2 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 with hyperglycemia, with long-term current use of insulin (HCC) 2000 ALLERGIES No Known Allergies Social History Tobacco Use Smoking status: Former Current packs/day: 0.00 Average packs/day: 1.5 packs/day for 22.0 years (33.0 ttl pk-yrs) Types: Cigarettes Start date: 1967 Quit date: 1989 Years since quittin.5 Passive exposure: Past Smokeless tobacco: Never Vaping Use Vaping status: Never Used Substance Use Topics Alcohol use: Yes Comment: once or twice a month Drug use: No Review of Systems: 12 point review of systems was performed and found to be non-contributory Exam: - Musculoskeletal: - Right Wrist: - Excellent flexion and extension; full pronation and supination. - Tenderness over the ulnar side with ulnar deviation and wrist flexion; no pain with radial deviation or axial load. - Full sensation across all fingers; able to make a tight fist and open hand without difficulty. - No pain over the ECU tendon; ulnar head not significantly prominent. Imaging: Labs: Imagin views Right and Left Wrist X-ray: - Hardware from prior arthroplasty in the metacarpophalangeal joints - Lucency around implants - Positive ulnar variance with degenerative changes, approximately 3 mm on the right side - No evidence of acute fracture The x-ray of the contralateral side was obtained as a comparison view to check for ulnar variance Assessment/Plan: (M25.831) Ulnar abutment syndrome of right wrist (primary encounter diagnosis) New and/or prior imaging was reviewed with the pt 1. Ulnar abutment syndrome of right wrist (M25.831) - Exam reveals tenderness over the ulnar side of the wrist with ulnar deviation, no pain with radial deviation, and a little bit of ulnar side of wrist pain with wrist flexion. Excellent flexion and extension of the wrist, full pronation and supination. Full sensation across all fingers, able to fire FPL and UPL. - X-rays show ulnar positive variance with the ulna appearing to impinge on the lunate. - Discussed surgical options including ulnar shortening osteotomy and distal ulnar resection (DERA). Explained risks and benefits of each procedure, including potential for non-union and hardware irritation with osteotomy, and potential for instability with DERA. - Recommended DERA given patient's age and overall health status. - Scheduled for distal ulnar resection and extensor tendon stabilization on the thursday in November at [facility]. - Patient will be casted for 6 weeks postoperatively to allow for proper healing and stabilization. - Advised patient to continue using wrist brace as needed for support and to avoid activities that exacerbate pain until surgery. - Patient understands and agrees with the treatment plan. I had a long discussion with the patient. She has had this ulnar-sided pain for years now, it does sound like (more content not included)... [facility] 09-18-2024 History of Present illness Narrative Hand Surgery New Pt Note HPI: Spinal cord stimulator (no MRI) Hx L IF DIP arthrodesis and bilat CTR 2014 bilat 2nd and 3rd MCP pyrocarbon arthroplasties, doing well 2018 Freddie DeQR 2022 R ALFONSO ferris Mary Jane De Paz is a 74-year-old female with a history of right wrist pain, seen today for evaluation. Right Wrist Pain: - Chronic right wrist pain, worsening over the past few months. - Pain described as sharp and hot. - Pain location confirmed on the ulnar side of the wrist. - Aggravated by lifting heavy objects and certain motions. - Pain occurs approximately 5 out of 7 days per week. - Mary Jane has been wearing a wrist brace intermittently. - Mary Jane has received ultrasound-guided wrist injections in the past, with decreasing efficacy. - Denies numbness in the hands. - No significant pain in the left wrist. - History of carpal tunnel release. - Reports difficulty with fine motor skills, such as buttoning buttons. - Mary Jane has a history of falls, including a recent fall during the winter that resulted in a tibia fracture. - Mary Jane has a spinal stimulator in place, which precludes MRI imaging. PMH: PAST MEDICAL HISTORY Diagnosis Date Allergic rhinitis Arthritis [facility] orthopedics, knee Asthma ([facility]) CKD (chronic kidney disease) 11/01/2018 Class 3 severe obesity with serious comorbidity and body mass index (BMI) of 40.0 to 44.9 in adult ([facility]) 08/19/2018 Coronary artery disease 10/28/[address] Salazar Fracture of right hip ([facility]) GERD (gastroesophageal reflux disease) History of transfusion HTN (hypertension) Hypothyroidism Mixed hyperlipidemia NIDDM (non-insulin dependent 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) MARIBEL on CPAP CPAP 9Cm Osteoarthritis of hip Renal lesion 01/15/2015 Suggest renal US every 1-2 years per PCP or nephro. Snoring Type 2 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 with hyperglycemia, with long-term current use of insulin ([facility]) 2000 ALLERGIES No Known Allergies Social History Tobacco Use Smoking status: Former Current packs/day: 0.00 Average packs/day: 1.5 packs/day for 22.0 years (33.0 ttl pk-yrs) Types: Cigarettes Start date: 1967 Quit date: 1989 Years since quittin.5 Passive exposure: Past Smokeless tobacco: Never Vaping Use Vaping status: Never Used Substance Use Topics Alcohol use: Yes Comment: once or twice a month Drug use: No Review of Systems: 12 point review of systems was performed and found to be non-contributory Exam: - Musculoskeletal: - Right Wrist: - Excellent flexion and extension; full pronation and supination. - Tenderness over the ulnar side with ulnar deviation and wrist flexion; no pain with radial deviation or axial load. - Full sensation across all fingers; able to make a tight fist and open hand without difficulty. - No pain over the ECU tendon; ulnar head not significantly prominent. Imaging: Labs: Imagin views Right and Left Wrist X-ray: - Hardware from prior arthroplasty in the metacarpophalangeal joints - Lucency around implants - Positive ulnar variance with degenerative changes, approximately 3 mm on the right side - No evidence of acute fracture Assessment/Plan: (M25.831) Ulnar abutment syndrome of right wrist (primary encounter diagnosis) New and/or prior imaging was reviewed with the pt 1. Ulnar abutment syndrome of right wrist (M25.831) - Exam reveals tenderness over the ulnar side of the wrist with ulnar deviation, no pain with radial deviation, and a little bit of ulnar side of wrist pain with wrist flexion. Excellent flexion and extension of the wrist, full pronation and supination. Full sensation across all fingers, able to fire FPL and UPL. - X-rays show ulnar positive variance with the ulna appearing to impinge on the lunate. - Discussed surgical options including ulnar shortening osteotomy and distal ulnar resection (DERA). Explained risks and benefits of each procedure, including potential for non-union and hardware irritation with osteotomy, and potential for instability with DERA. - Recommended DERA given patient's age and overall health status. - Scheduled for distal ulnar resection and extensor tendon stabilization on the thursday in November at [facility]. - Patient will be casted for 6 weeks postoperatively to allow for proper healing and stabilization. - Advised patient to continue using wrist brace as needed for support and to avoid activities that exacerbate pain until surgery. - Patient understands and agrees with the treatment plan. I had a long discussion with the patient. She has had this ulnar-sided pain for years now, it does sound like it started after a non-op distal radius fracture based on 2022 notes, she has had several injections and they no longer seem to help her, she is otherwise healthy and active, she would like a surgical intervention which I do think is reasonable given how much it limits her and affect the injections of failed I did explain that normally I would like to get an MRI to confirm the diagnosis of ulnar involvement and also look at the TFCC, however she has a spinal cord stimulator and so she cannot get an MRI While scrutinizing the x-rays, she is definitely ulnar positive, looks like about 3 mm, I do see a small cyst in the ulnar side of the lunate and I see a cyst in the ulnar head, these point towards ulnar abutment On exam, she does have pain with ulnar deviation and not radial deviation, she has no pain with pronation or supination which sometimes that can be painful with ulnar abutment, I think the more important thing with that is I do not think this is a TFCC only injury because she does not have pain at the extremes of pronation and supination I can typically see the TFCC so I do not think only addressing a TFCC will work and because she is ulnar positive-I just addressed the TFCC, it will continue to be damaged based on the positive ulnar variance After all of this discussion, the patient did want to treat this like ulnar abutment to think is reasonable. We discussed an ulnar shortening osteotomy versus a Derra and at her age and activity level, I think that a Derra has less risk of complication than an ulnar shortening. Patient was agreement with this. I did tell her there is a risk of impingement, she understands this and instability, she understands this I also explained she may have some numbness in the dorsal tendons branch of the ulnar nerve distribution and she was okay with this Consent signed, regional MAC, Derra with ECU stabilization Postop is in 9 days in POB Non-operative and operative interventions were thoroughly discussed with the patient. After explaining the risks and benefits of each route, the patient elected to proceed with operative intervention. I explained the specific risks, benefits, and goals of the procedure. These risks include, but are not limited to: infection, wound healing problems, neurovascular injury, weakness, stiffness, scarring, Complex regional pain syndrome, and even loss of digit or limb. If hardware is used, there is a risk of hardware irritation or failure with possible need for revision. I stated the possibility of no improvement, worsening of the pre-op symptoms, and the need for further surgery. No guarantees were stated or implied. All the patient's questions were answered to their satisfaction. The patient expressed understanding of the risks, benefits, and possible outcomes. We have made the decision to move forward with a major orthopaedic surgery today, and this represents the highest form of medical decision-making complexity. The patient's diagnosis of (M25.831) Ulnar abutment syndrome of right wrist (primary encounter diagnosis) represents a chronic pathology/diagnosis/injury that represents a current or possible direct threat to bodily function. Will continue to monitor patient for (M25.831) Ulnar abutment syndrome of right wrist (primary encounter diagnosis), patient to schedule visit as per follow up discussed. Ish Higgins MD Hand Surgery *The above reflects my independent exam and review. I saw and examined the patient myself personally. Parts of the HPI, ROS, exam, and impression/plan may have been copied from my previous clinical note and remain pertinent. Current changes have been made and documented today. Other parts or date were deleted if not relevant for today. Plan as outlined.* *This note was produced using an AI scribe and speech recognition software and may contain errors related to that system including but not limited to punctuation, spelling, grammar, gender, and words or phrases that may be inappropriate.* *The patient consented to the use of ambient AI software for draft documentation of the visit consistent with [facility] s Notice of Privacy Practices.* documented in this encounter [facility] 09-14-2024 Note HNO ID: [id number] Author: LORY CHAN RN Service: ? Author Type: Registered Nurse Type: Progress Notes Filed: 09/14/2024 12:43 Note Text: [facility] Telephonic Outreach Provider Action/KRISTOFERI She is getting her hair cut, requests a call again in two weeks because. We speak too soon Discussed care with patient. Lory Chan RN September 14, 2024 12:41 PM [facility] 09-14-2024 History of Present illness Narrative [facility] Care Path Telephonic Outreach Provider Action/KRISTOFERI She is getting her hair cut, requests a call again in two weeks because. We speak too soon Discussed care with patient. Lory Chan RN September 14, 2024 12:41 PM documented in this encounter [facility] 09-14-2024 Note Patient Outreach (AM [facility] [place]) MARY JANE DE PAZ ([id number]) 1950 F Date Time Provider Department 09/14/24 [place]AN [facility] [place] visit today, we recorded the following information about you: Lory Chan RN 09/14/2024 12:43 PM Signed [facility] Path Telephonic Outreach Provider Action/KRISTOFERI She is getting her hair cut, requests a call again in two weeks because. We speak too soon Discussed care with patient. Lory Chan RN September 14, 2024 12:41 PM Allergies As of Date: 09/14/2024 (No Known Allergies) Date Reviewed: 08/30/2024 Reviewed by: Demetrice Charlton MA - Fully Assessed Prescriptions as of 09/14/2024 - FLUoxetine (PROZAC) 40 mg capsule Take 1 capsule by mouth two times a day. - levothyroxine (SYNTHROID) 100 mcg tablet Take 1 tablet by mouth once daily. - esomeprazole (NEXIUM) 40 mg capsule TAKE ONE CAPSULE BY MOUTH twice daily. - dulaglutide (TRULICITY) 0.75 mg/0.5 mL pen injector Inject 0.75 mg subcutaneously one time a week. Inject 0.75 mg once weekly - lisinopril (ZESTRIL) 20 mg tablet Take 1 tablet by mouth once daily. - atorvastatin (LIPITOR) 20 mg tablet Take 1 tablet by mouth daily at bedtime. For cholesterol. - famotidine (PEPCID) 20 mg tablet Take 1 tablet by mouth two times a day as needed (GERD). - buPROPion XL (WELLBUTRIN XL) 300 mg 24 hr tablet Take 1 tablet by mouth once daily. - traZODone (DESYREL) 100 mg tablet Take 2 tablets by mouth daily at bedtime. - Blood-Glucose Sensor (MobileVedaSTYLE JAUN 3 PLUS SENSOR) guido 1 Each every 2 weeks. CHANGE sensor every 15 days. USE FOR CONTINUOUS GLUCOSE MONITORING. Dx: E11.9 RISK FOR HYPOGLYCEMIA. - melatonin 10 mg tab Take 1 tablet by mouth at bedtime as needed for insomnia. - Calcium Citrate 250 mg calcium tab Take 250 mg by mouth. - coffee xt/phosphatidyl serine (NEURIVA ORIGINAL ORAL) Take 2 tablets by mouth once daily. - APPLE CIDER VINEGAR ORAL Take 1 capsule by mouth once daily. Combined with the tumeric - lactose-reduced food (ADULT NUTRITIONAL SUPPLEMENT ORAL) (Discontinued) Take 1 capsule by mouth once daily. Tumeric - 2000mg capsule - MULTI-VITAMIN ORAL Take 1 tablet by mouth once daily. 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] 08/05/2010 HTN (hypertension) [I10] 12/05/2011 10/14/2014 Hyperlipidemia [E78.5] 08/04/2012 Hypothyroid [E03.9] 11/28/2012 Generalized postprandial abdominal pain [R10.84]09/01/2013 Diarrhea [R19.7] 09/01/2013 08/30/2020 IBS (irritable bowel syndrome) [K58.9] 09/01/2013 Moderate episode of recurrent major depressive *04/28/2014 Essential hypertension [I10] 10/14/2014 MARIBEL (obstructive sleep apnea) [G47.33] 09/17/2015 Cognitive decline [R41.89] 01/10/2016 Other symbolic dysfunction [R48.8] 04/22/2016 Actinic keratoses [L57.0] 07/30/2016 GERD without esophagitis [K21.9] 10/09/2016 Encounter for screening colonoscopy [Z12.11] 10/09/2016 08/30/2020 Pain of foot [M79.673] 11/27/2016 08/30/2020 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9] 11/27/2016 Hypertensive kidney disease with stage 3 chroni*04/13/2017 Contusion of leg, left, sequela [S80.12XS] 04/30/2017 08/30/2020 De Quervain's tenosynovitis, left [M65.4] 01/09/2018 Post-operative state [Z98.890] 05/26/2018 08/30/2020 Joint stiffness of hand, left [M25.642] 06/22/2018 Metacarpophalangeal joint pain of left hand [M2*07/20/2018 Finger pain, left [M79.645] 07/20/2018 Class 3 severe obesity with serious comorbidity*08/19/2018 08/30/2020 Asthma [J45.909] Stage 3 chronic kidney disease (HCC) [N18.30] 11/01/2018 Obesity [E66.9] 12/14/2018 08/30/2020 Obesity, Class II, BMI 35-39.9 [E66.812] 12/17/2018 08/30/2020 H/O gastric bypass [Z98.84] 12/23/2018 Closed displaced fracture of right femoral neck*11/17/2021 Hyponatremia [E87.1] 11/17/2021 Hip fracture requiring operative repair, right,*11/17/2021 Coronary artery disease [I25.10] 10/28/2017 05/12/2022 Type 2 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 (HCC) [E11.9] Renal lesion [N28.9] 01/15/2015 Osteoarthritis of right hip, unspecified osteoa*07/09/2022 07/09/2022 History of total hip replacement, right [Z96.64*08/27/2022 History of total knee replacement, left [Z96.65*08/27/2022 Coronary artery disease involving blackfeet manley*09/04/2022 UTI (urinary tract infection) [N39.0] 09/04/2022 S/P total knee arthroplasty, right [Z96.651] 09/16/2022 01/21/2023 Stiffness of right knee [M25.661] 10/08/2022 01/21/2023 Acute pain of right knee [M25.561] 10/08/2022 01/21/2023 Difficulty walking [R26.2] 10/08/2022 01/21/2023 Localized edema [R60.0] 10/08/2022 01/21/2023 Pancreatic cyst [K86.2] 01/16/2023 SBO (small bowel obstruction) ([facility]) [K56.609] 07/26/2023 Falls [R29.6] 03/21/2024 Balance (more content not included)... [facility] 09-13-2024 History of Present illness Narrative Program_ID:[id number] Access Code: [email or web address] URL: [email or web address] Date: 09-13-2024 Prepared By: Apple Bender Program Notes Exercises - Supine Figure 4 Piriformis Stretch - 1 x daily - 7 x weekly - 1 sets - 2 reps - Supine Hip Internal and External Rotation - 1 x daily - 7 x weekly - 1 sets - 10 reps - Seated Table Hamstring Stretch - 1 x daily - 7 x weekly - 3 sets - reps - Hooklying Clamshell with Resistance - 1 x daily - 7 x weekly - 2 sets - 10 reps - Hip Extension with Resistance Loop - 1 x daily - 7 x weekly - 2 sets - 10 reps - Standing Hip Flexion May - 1 x daily - 7 x weekly - 2 sets - 10 reps Episode Visit Count: 3 Therapist That Will Accept/Oversee The Plan Of Care: Sarahi Barker Start of Care Date: 08/24/24 Onset Date: 08/25/23 Plan of Care Certification Date: 08/24/24 Next Certification Due Date: 05/02/24 Patient Identified by Name and Date of : Yes REHABILITATION AND SPORTS THERAPY PHYSICAL THERAPY TREATMENT NOTE ASSESSMENT: Mary Jane De Paz tolerated the session with expected muscle soreness and no issues. She demonstrated difficulty with balance exercises requiring CGA and good tolerance to addition of all HEP . The patient will continue to benefit from ongoing skilled physical therapy to progress toward set goals. PLAN FOR NEXT VISIT: Strengthening and pain reduction. Consider bridge, SLR, clams, lateral walk, monster walk, shuttle DL and SL, calf press, step up, sit to stand (start at 22 or 20 inches), right knee flexion stretch on step. Dry needling to right knee with or without TENS. balance training SUBJECTIVE: Patient reports she was camping this weekend. She notes her knee is very sore. She notes increased pain on lateral side of right knee Pain: Pain Pain Level: 4 Pain Location: Knee - Right Description: Aching Post Treatment Pain Post Treatment Pain Level: Better Post Treatment Pain Location: Knee - Right OBJECTIVE MEASURES WITH LEVEL OF FUNCTION: Gait Gait Observation: Patient ambulates TREATMENT: Therapeutic Exercise: 5: long stting hamstring stretch 3x20 6: knee flexion stretch 10x5 7: step up 6in 2x10 RLE 9: Shuttle w/ wedge bilateral 31# 2 x 10 reps 10: shuttle press w/ wedge bilateral calf press 2x10 31# 11: shuttle press w/ wedge SL R 18# 2x10 12: side steps with blue band 2 laps at // bars 13: *blue band hip extenstion 10x each LE 14: *blue band hip flexion 10x BLE Skilled Intervention: Patient was educated in proper exercise technique and purpose for exercises. Reviewed and educated patient on additions/changes for home exercise program as above (*). Skilled judgment was used in selection of appropriate interventions. Patient education as noted. Neuromuscular Re-Education: 1: FT EO on airex 2x30 2: FT EC on ground 2x30 3: mod tandem on airex 2x30 4: SL stance 2x10 sec each LE Skilled Intervention: Skilled judgment used to assess appropriate program for balance and coordination activity. Ensured patient safety with use of CGA Patient education as noted. Billing Therapeutic Exercise Treatment Minutes: 34 Manual TherapyTreatment Minutes: 8 Skilled Treatment Time Minutes (timed and untimed codes): 42 Total Session Time (minutes): 42 Session Start Time : 1015 Session Stop Time : 1057 Sarahi Barker PT DPJame documented in this encounter [facility] 09-13-2024 Note HNO ID: [id number] Author: SARAHI BARKER PT, DPT Service: ? Author Type: Physical Therapist Type: Progress Notes Filed: 11/14/2024 08:06 Note Text: Episode Visit Count: 3 Therapist That Will Accept/Oversee The Plan Of Care: Sarahi Barker Start of Care Date: 08/24/24 Onset Date: 08/25/23 Plan of Care Certification Date: 08/24/24 Next Certification Due Date: 05/02/24 Patient Identified by Name and Date of : Yes REHABILITATION AND SPORTS THERAPY PHYSICAL THERAPY TREATMENT NOTE ASSESSMENT: Mary Jane De Paz tolerated the session with expected muscle soreness and no issues. She demonstrated difficulty with balance exercises requiring CGA and good tolerance to addition of all HEP . The patient will continue to benefit from ongoing skilled physical therapy to progress toward set goals. PLAN FOR NEXT VISIT: Strengthening and pain reduction. Consider bridge, SLR, clams, lateral walk, monster walk, shuttle DL and SL, calf press, step up, sit to stand (start at 22 or 20 inches), right knee flexion stretch on step. Dry needling to right knee with or without TENS. balance training SUBJECTIVE: Patient reports she was camping this weekend. She notes her knee is very sore. She notes increased pain on lateral side of right knee Pain: Pain Pain Level: 4 Pain Location: Knee - Right Description: Aching Post Treatment Pain Post Treatment Pain Level: Better Post Treatment Pain Location: Knee - Right OBJECTIVE MEASURES WITH LEVEL OF FUNCTION: Gait Gait Observation: Patient ambulates TREATMENT: Therapeutic Exercise: 5: long stting hamstring stretch 3x20 6: knee flexion stretch 10x5 7: step up 6in 2x10 RLE 9: Shuttle w/ wedge bilateral 31# 2 x 10 reps 10: shuttle press w/ wedge bilateral calf press 2x10 31# 11: shuttle press w/ wedge SL R 18# 2x10 12: side steps with blue band 2 laps at // bars 13: *blue band hip extenstion 10x each LE 14: *blue band hip flexion 10x BLE Skilled Intervention: Patient was educated in proper exercise technique and purpose for exercises. Reviewed and educated patient on additions/changes for home exercise program as above (*). Skilled judgment was used in selection of appropriate interventions. Patient education as noted. Neuromuscular Re-Education: 1: FT EO on airex 2x30 2: FT EC on ground 2x30 3: mod tandem on airex 2x30 4: SL stance 2x10 sec each LE Skilled Intervention: Skilled judgment used to assess appropriate program for balance and coordination activity. Ensured patient safety with use of CGA Patient education as noted. Billing Therapeutic Exercise Treatment Minutes: 34 Manual TherapyTreatment Minutes: 8 Skilled Treatment Time Minutes (timed and untimed codes): 42 Total Session Time (minutes): 42 Session Start Time : 1015 Session Stop Time : 1057 Sarahi Barker PT, DPT [facility] 09-07-2024 History of Present illness Narrative Program_ID:[id number] Access Code: [email or web address] URL: [email or web address] Date: 09-07-2024 Prepared By: Apple Bender Program Notes Exercises - Supine Figure 4 Piriformis Stretch - 1 x daily - 7 x weekly - 1 sets - 2 reps - Supine Hip Internal and External Rotation - 1 x daily - 7 x weekly - 1 sets - 10 reps - Seated Table Hamstring Stretch - 1 x daily - 7 x weekly - 3 sets - reps - Hooklying Clamshell with Resistance - 1 x daily - 7 x weekly - 2 sets - 10 reps Episode Visit Count: 2 Therapist That Will Accept/Oversee The Plan Of Care: Sarahi Barker Start of Care Date: 08/24/24 Onset Date: 08/25/23 Plan of Care Certification Date: 08/24/24 Next Certification Due Date: 05/02/24 Patient Identified by Name and Date of : Yes REHABILITATION AND SPORTS THERAPY PHYSICAL THERAPY TREATMENT NOTE ASSESSMENT: Mary Jane De Paz tolerated the session with expected muscle soreness and no issues. She demonstrated difficulty with bridges secondary to low back tightness but demos improved ROM with increased reps. Decrease pain with IDN to right knee with patient in supine The patient will continue to benefit from ongoing skilled physical therapy to progress toward set goals. PLAN FOR NEXT VISIT: Strengthening and pain reduction. Consider bridge, SLR, clams, lateral walk, monster walk, shuttle DL and SL, calf press, step up, sit to stand (start at 22 or 20 inches), right knee flexion stretch on step. Dry needling to right knee with or without TENS. balance training SUBJECTIVE: Patient reports she is feeling good. She notes good benefit from the dry needling. She reports she has not performed her HEP. Pain: Pain Pain Level: 2 Pain Location: Knee - Right Description: Aching Frequency: Continuous Post Treatment Pain Post Treatment Pain Level: 0 Post Treatment Pain Location: Knee - Right OBJECTIVE MEASURES WITH LEVEL OF FUNCTION: No objective measures taken this date TREATMENT: Therapeutic Exercise: 1: Piriformis stretch 3 x 10 seconds each 2: Supine hip internal and external rotation x 10 each 3: bridges 2x10 4: *SLR 2x10 5: *long sitting hamstring stretch 3x20 6: *supine hip abduction 2x10 Skilled Intervention: Patient was educated in proper exercise technique and purpose for exercises. Skilled judgment was used in selection of appropriate interventions. Patient education as noted.Therapeutic Exercise: Skilled Intervention: Reviewed and educated patient on additions/changes for home exercise program as above (*). Manual Therapy: Dry Needling: Dry needling to following Trigger points: R distal quad and medial/ lateral calf and Homeostatic points: Iliotibial , Common fibular , and Saphenous Needle length: 30mm 1.2 in. [place] used 9, needles removed 9. Dry needling technique used: Superficial techniques . Patient education on purpose, precautions, safety, risks, and other treatment options regarding dry needling. Verbal consent received.Dry needling to following Trigger points: R distal quad and medial/ lateral calf and Homeostatic points: Iliotibial , Common fibular , and Saphenous Needle length: 30mm 1.2 in. [place] used 9, needles removed 9. Dry needling technique used: Superficial techniques . Patient education on purpose, precautions, safety, risks, and other treatment options regarding dry needling. Verbal consent received. Skilled Intervention: Manual skills to improve joint mobility, ROM, and decrease pain. Utilized anatomy knowledge of the clinician, and assessment of patient's response to intervention. Billing Therapeutic Exercise Treatment Minutes: 36 Manual TherapyTreatment Minutes: 8 Skilled Treatment Time Minutes (timed and untimed codes): 44 Total Session Time (minutes): 44 Session Start Time : 1002 Session Stop Time : 1046 Sarahi Barker PT, DPT documented in this encounter [facility] 09-07-2024 Telephone encounter Note Application received by interoffice mail. Provider information completed and signed. Faxed to [employer] at [phone] Confirmation received and placed in file. Lima Pandya MA [facility] 09-07-2024 Miscellaneous Notes Application received by interoffice mail. Provider information completed and signed. Faxed to [employer] at [phone] Confirmation received and placed in file. Lima Pandya MA documented in this encounter [facility] 09-07-2024 Note HNO ID: [id number] Author: SARAHI BARKER PT, DPT Service: ? Author Type: Physical Therapist Type: Progress Notes Filed: 09/07/2024 10:50 Note Text: Episode Visit Count: 2 Therapist That Will Accept/Oversee The Plan Of Care: Sarahi Barker Start of Care Date: 08/24/24 Onset Date: 08/25/23 Plan of Care Certification Date: 08/24/24 Next Certification Due Date: 05/02/24 Patient Identified by Name and Date of : Yes REHABILITATION AND SPORTS THERAPY PHYSICAL THERAPY TREATMENT NOTE ASSESSMENT: Mary Jane De Paz tolerated the session with expected muscle soreness and no issues. She demonstrated difficulty with bridges secondary to low back tightness but demos improved ROM with increased reps. Decrease pain with IDN to right knee with patient in supine The patient will continue to benefit from ongoing skilled physical therapy to progress toward set goals. PLAN FOR NEXT VISIT: Strengthening and pain reduction. Consider bridge, SLR, clams, lateral walk, monster walk, shuttle DL and SL, calf press, step up, sit to stand (start at 22 or 20 inches), right knee flexion stretch on step. Dry needling to right knee with or without TENS. balance training SUBJECTIVE: Patient reports she is feeling good. She notes good benefit from the dry needling. She reports she has not performed her HEP. Pain: Pain Pain Level: 2 Pain Location: Knee - Right Description: Aching Frequency: Continuous Post Treatment Pain Post Treatment Pain Level: 0 Post Treatment Pain Location: Knee - Right OBJECTIVE MEASURES WITH LEVEL OF FUNCTION: No objective measures taken this date TREATMENT: Therapeutic Exercise: 1: Piriformis stretch 3 x 10 seconds each 2: Supine hip internal and external rotation x 10 each 3: bridges 2x10 4: *SLR 2x10 5: *long sitting hamstring stretch 3x20 6: *supine hip abduction 2x10 Skilled Intervention: Patient was educated in proper exercise technique and purpose for exercises. Skilled judgment was used in selection of appropriate interventions. Patient education as noted.Therapeutic Exercise: Skilled Intervention: Reviewed and educated patient on additions/changes for home exercise program as above (*). Manual Therapy: Dry Needling: Dry needling to following Trigger points: R distal quad and medial/ lateral calf and Homeostatic points: Iliotibial , Common fibular , and Saphenous Needle length: 30mm 1.2 in. [place] used 9, needles removed 9. Dry needling technique used: Superficial techniques . Patient education on purpose, precautions, safety, risks, and other treatment options regarding dry needling. Verbal consent received.Dry needling to following Trigger points: R distal quad and medial/ lateral calf and Homeostatic points: Iliotibial , Common fibular , and Saphenous Needle length: 30mm 1.2 in. [place] used 9, needles removed 9. Dry needling technique used: Superficial techniques . Patient education on purpose, precautions, safety, risks, and other treatment options regarding dry needling. Verbal consent received. Skilled Intervention: Manual skills to improve joint mobility, ROM, and decrease pain. Utilized anatomy knowledge of the clinician, and assessment of patient's response to intervention. Billing Therapeutic Exercise Treatment Minutes: 36 Manual TherapyTreatment Minutes: 8 Skilled Treatment Time Minutes (timed and untimed codes): 44 Total Session Time (minutes): 44 Session Start Time : 1002 Session Stop Time : 1046 Sarahi Barker, PT, DPT [facility] 08-30-2024 Note HNO ID: [id number] Author: DELFIN KERR MD Service: ? Author Type: Physician Type: Progress Notes Filed: 10/02/2024 17:42 Note Text: Patient presents with: Right Wrist - Pain, New AMB ROOMING INTAKE FLOWSHEET DATA Pain Pain Level: 8 Pain Location: Wrist-Right Description: Burning, Sharp Duration Units: Hours Frequency: Intermittent Intervention/Comfort measure: Cold Delfin Kerr MD Department of Orthopaedics Orthopaedics [address] [address] Dept: [phone] August 30, 2024 CHIEF COMPLAINT: Pain and New of the Right Wrist HPI Mary Jane De Paz is a 74-year-old female presenting with persistent right wrist pain. Mary Jane reports a burning pain in the right wrist that persists despite previous cortisone injections and the use of a brace. The pain is described as nasty and can occur even when Mary Jane is sitting still. The last cortisone injection was administered by Dr. Keys at the beginning of the year, which provided temporary relief. Mary Jane has been using Voltaren gel, which is the same as diclofenac, but reports that it has not been effective in alleviating the pain. Mary Jane also notes that applying ice provides only temporary relief. She has a history of multiple surgeries, including procedures on her fingers performed by Dr. Delgado. Mary Jane has an upcoming appointment for an ultrasound at [facility] next week but it appears that it is for her shoulder. Mary Jane inquires about the possibility of additional cortisone injections for her shoulder, which has shown improvement since the last injection. She is concerned about the number of cortisone injections she can receive. ASSESSMENT: M25.539 Pain of ulnar side of wrist (primary encounter diagnosis) 1. Pain of ulnar side of wrist (M25.539) Persistent ulnar-sided wrist pain despite previous corticosteroid injection and use of diclofenac topical gel. Pain is described as burning and occurs even at rest. Physical examination and history suggest ulnar positive variance, likely contributing to the pain. - Referred to Dr. Higgins for evaluation and potential surgical intervention, including wrist arthroscopy and ulnar shortening osteotomy. - Dr. Higgins's office will contact the patient to schedule an appointment. - Continue use of diclofenac gel as needed for pain management. OBJECTIVE: Ms. Mary Jane De Paz is a pleasant 74 year old in no apparent distress. Gen:There were no vitals taken for this visit. nl development, non obese, no deformities ENT: Normocephalic, normal hearing, moist mucosa CV: Pulses:Radial= 2+ and symmetric, capillary refill < 2 secs, no peripheral edema/varicosities Skin: no rash, bruising or lesions. Good turgor. Psych: cooperative and appropriate, alert and oriented x 3, good mood and affect. Musculoskeletal: - Musculoskeletal: - Right Wrist: Point tenderness over the ulnar aspect. Slight prominance, but mild. Imaging: Imaging: - X-ray of bilateral wrists: Positive ulnar variance observed, on the right wrist suggestive of impingement. Supporting Subjective Information Below: Past Medical History: PAST MEDICAL HISTORY Diagnosis Date Allergic rhinitis Arthritis [facility] orthopedics, knee Asthma ([facility]) CKD (chronic kidney disease) 11/01/2018 Class 3 severe obesity with serious comorbidity and body mass index (BMI) of 40.0 to 44.9 in adult ([facility]) 08/19/2018 Coronary artery disease 10/28/[address] Salazar Fracture of right hip ([facility]) GERD (gastroesophageal reflux disease) History of transfusion HTN (hypertension) Hypothyroidism Mixed hyperlipidemia NIDDM (non-insulin dependent 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) MARIBEL on CPAP CPAP 9Cm Osteoarthritis of hip Renal lesion 01/15/2015 Suggest renal US every 1-2 years per PCP or nephro. Snoring Type 2 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 with hyperglycemia, with long-term current use of insulin ([facility]) 1999 Past Surgical History: PAST SURGICAL HISTORY Procedure Laterality Date ABDOMINAL SURGERY HX COLONOSCOPY 11/05/2016 Tammi- divertiuclosis, internal hemorrhoids, repeat in 5 years COLONOSCOPY 04/02/2022 repeat in 5 years due to reported prior history of polyps COSMETIC ASSESSMENT EGD 11/05/2016 Tammi- gastritis EGD 09/08/2018 /Gastritis EGD 04/02/2020 EGD 04/02/2022 EYE SURGERY HX Bilateral cataract extraction 2009's GASTRECTOMY,PART DISTAL;W/GASTRODUODENOSTO GASTRIC BYPASS HX 12/13/2018 Laparoscopic Samina-en-Y gastric bypass HIP SURGERY HX Screws replaced JOINT REPLACEMENT HX LAPAROSCOPY DIAGNOSTIC 07/26/2023 internal hernias and mesenteric adhesion OOPHORECTOMY PARTIAL OR TOTAL PAST SURGICAL HISTORY OF 2009 hemmroidectomy/sphincterectomy - Dr Nichole PAST SURGICAL HISTORY OF 2008 total left knee replacement PAST SURGICAL HISTORY OF 2003 partial right knee replacement PAST AVI (more content not included)... [facility] 08-30-2024 History of Present illness Narrative Patient presents with: Right Wrist - Pain, New AMB ROOMING INTAKE FLOWSHEET DATA Pain Pain Level: 8 Pain Location: Wrist-Right Description: Burning, Sharp Duration Units: Hours Frequency: Intermittent Intervention/Comfort measure: Estuardo Kerr MD Department of Orthopaedics Orthopaedics [address] [address] Dept: [phone] August 30, 2024 CHIEF COMPLAINT: Pain and New of the Right Wrist HPI Mary Jane De Paz is a 74-year-old female presenting with persistent right wrist pain. Mary Jane reports a burning pain in the right wrist that persists despite previous cortisone injections and the use of a brace. The pain is described as nasty and can occur even when Mary Jane is sitting still. The last cortisone injection was administered by Dr. Keys at the beginning of the year, which provided temporary relief. Mary Jane has been using Voltaren gel, which is the same as diclofenac, but reports that it has not been effective in alleviating the pain. Mary Jane also notes that applying ice provides only temporary relief. She has a history of multiple surgeries, including procedures on her fingers performed by Dr. Delgado. Mary Jane has an upcoming appointment for an ultrasound at [facility] next week but it appears that it is for her shoulder. Mary Jane inquires about the possibility of additional cortisone injections for her shoulder, which has shown improvement since the last injection. She is concerned about the number of cortisone injections she can receive. ASSESSMENT: M25.539 Pain of ulnar side of wrist (primary encounter diagnosis) 1. Pain of ulnar side of wrist (M25.539) Persistent ulnar-sided wrist pain despite previous corticosteroid injection and use of diclofenac topical gel. Pain is described as burning and occurs even at rest. Physical examination and history suggest ulnar positive variance, likely contributing to the pain. - Referred to Dr. Higgins for evaluation and potential surgical intervention, including wrist arthroscopy and ulnar shortening osteotomy. - Dr. Higgins's office will contact the patient to schedule an appointment. - Continue use of diclofenac gel as needed for pain management. OBJECTIVE: Ms. Mary Jane De Paz is a pleasant 74 year old in no apparent distress. Gen:There were no vitals taken for this visit. nl development, non obese, no deformities ENT: Normocephalic, normal hearing, moist mucosa CV: Pulses:Radial= 2+ and symmetric, capillary refill < 2 secs, no peripheral edema/varicosities Skin: no rash, bruising or lesions. Good turgor. Psych: cooperative and appropriate, alert and oriented x 3, good mood and affect. Musculoskeletal: - Musculoskeletal: - Right Wrist: Point tenderness over the ulnar aspect. Slight prominance, but mild. Imaging: Imaging: - X-ray of bilateral wrists: Positive ulnar variance observed, on the right wrist suggestive of impingement. Supporting Subjective Information Below: Past Medical History: PAST MEDICAL HISTORY Diagnosis Date Allergic rhinitis Arthritis [facility] orthopedics, knee Asthma ([facility]) CKD (chronic kidney disease) 11/01/2018 Class 3 severe obesity with serious comorbidity and body mass index (BMI) of 40.0 to 44.9 in adult ([facility]) 08/19/2018 Coronary artery disease 10/28/[address] Salazar Fracture of right hip ([facility]) GERD (gastroesophageal reflux disease) History of transfusion HTN (hypertension) Hypothyroidism Mixed hyperlipidemia NIDDM (non-insulin dependent 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) MARIBEL on CPAP CPAP 9Cm Osteoarthritis of hip Renal lesion 01/15/2015 Suggest renal US every 1-2 years per PCP or nephro. Snoring Type 2 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 with hyperglycemia, with long-term current use of insulin ([facility]) 1999 Past Surgical History: PAST SURGICAL HISTORY Procedure Laterality Date ABDOMINAL SURGERY HX COLONOSCOPY 11/05/2016 Tammi- divertiuclosis, internal hemorrhoids, repeat in 5 years COLONOSCOPY 04/02/2022 repeat in 5 years due to reported prior history of polyps COSMETIC ASSESSMENT EGD 11/05/2016 Tammi- gastritis EGD 09/08/2018 /Gastritis EGD 04/02/2020 EGD 04/02/2022 EYE SURGERY HX Bilateral cataract extraction 2009's GASTRECTOMY,PART DISTAL;W/GASTRODUODENOSTO GASTRIC BYPASS HX 12/13/2018 Laparoscopic Samina-en-Y gastric bypass HIP SURGERY HX Screws replaced JOINT REPLACEMENT HX LAPAROSCOPY DIAGNOSTIC 07/26/2023 internal hernias and mesenteric adhesion OOPHORECTOMY PARTIAL OR TOTAL PAST SURGICAL HISTORY OF 2009 hemmroidectomy/sphincterectomy - Dr Nichole PAST SURGICAL HISTORY OF 2008 total left knee replacement PAST SURGICAL HISTORY OF 2003 partial right knee replacement PAST SURGICAL HISTORY OF 1990 total hysterectomy PAST SURGICAL HISTORY OF 2010 lDr Mansoor - [place] elbow fracture - traumatic. radial head replacement PAST SURGICAL HISTORY OF Bilateral 2016 hand surgery PAST SURGICAL HISTORY OF Left RELEASE CONTRACTURE DEQUERVAINS S INSERT PINN METAL NTRL HIP Right 11/17/2021 SKIN BIOPSY HX TOTAL HIP REPLACEMENT Right TOTAL KNEE REPLACEMENT Right 09/15/2022 TUBAL LIGATION HX VAGINAL HYSTERECTOMY Medications: Current Outpatient Medications Medication Sig FLUoxetine (PROZAC) 40 mg capsule Take 1 capsule by mouth two times a day. levothyroxine (SYNTHROID) 100 mcg tablet Take 1 tablet by mouth once daily. esomeprazole (NEXIUM) 40 mg capsule TAKE ONE CAPSULE BY MOUTH twice daily. dulaglutide (TRULICITY) 0.75 mg/0.5 mL pen injector Inject 0.75 mg subcutaneously one time a week. Inject 0.75 mg once weekly lisinopril (ZESTRIL) 20 mg tablet Take 1 tablet by mouth once daily. atorvastatin (LIPITOR) 20 mg tablet Take 1 tablet by mouth daily at bedtime. For cholesterol. famotidine (PEPCID) 20 mg tablet Take 1 tablet by mouth two times a day as needed (GERD). buPROPion XL (WELLBUTRIN XL) 300 mg 24 hr tablet Take 1 tablet by mouth once daily. traZODone (DESYREL) 100 mg tablet Take 2 tablets by mouth daily at bedtime. Blood-Glucose Sensor (FREESTYLE JAUN 3 PLUS SENSOR) guido 1 Each every 2 weeks. CHANGE sensor every 15 days. USE FOR CONTINUOUS GLUCOSE MONITORING. Dx: E11.9 RISK FOR HYPOGLYCEMIA. melatonin 10 mg tab Take 1 tablet by mouth at bedtime as needed for insomnia. Calcium Citrate 250 mg calcium tab Take 250 mg by mouth. coffee xt/phosphatidyl serine (NEURIVA ORIGINAL ORAL) Take 2 tablets by mouth once daily. APPLE CIDER VINEGAR ORAL Take 1 capsule by mouth once daily. Combined with the tumeric MULTI-VITAMIN ORAL Take 1 tablet by mouth once daily. Takes bariatric multivitamin daily No current facility-administered medications for this visit. Allergies: Patient has no known allergies. ROS: General (negative for fatigue, malaise, weight loss/gain) HEENT (negative for headache, earache, recent vision changes, sinus pain, sore throat) Respiratory (no recent shortness of breath, hemoptysis) CV (negative for chest tightness, palpitations) Musculoskeletal (see HPI) Psych (no depression, anxiety) Musculoskeletal: (+) right wrist burning pain Recording using ambient AI software for draft documentation of the visit was discussed with the patient/authorized student services representative; all questions welcomed and answered. Patient/authorized student services representative agreed to proceed Delfin Kerr MD documented in this encounter [facility] 08-26-2024 Note HNO ID: [id number] Author: CHRISTINE MORGAN APRN.JOSEFINA Service: ? Author Type: Nurse Practitioner Type: Progress Notes Filed: 08/26/2024 15:23 Note Text: We made multiple attempts to try to get this covered early in 2023. As it was covered initially and then in 2023 it was no longer covered (see notes below). Spoke with Ab. He states that the guidelines changed 07/06/22 and pt was approved by accident. He thought she was not having hypoglycemic episodes under 54. I noted on her 02/02/23 visit, it notes that her blood sugars range from 50's-200's. He thinks this will be sufficient. Last office visit he has is from 07/2022. Office visit faxed to Ab's personal fax number for review. 05/26/23 We spoke with ADS. The reason you are now required to pay for supplies is because you are not using injectable insulin. Medicare requires 1 of 2 things when dispensing CGM supplies for non insulin diabetics. Those requirements are: Patient has had recurring level 2 hypoglycemic (low blood sugar) events that persist despite at least 2 attempts to adjust medications and/or modify diabetes treatment plan. OR Patient had a level 3 hypoglycemic event with characterized mental or physical state which require 3rd alliance party assistance to treat. [facility] 08-25-2024 Note HNO ID: [id number] Author: LORY CHAN RN Service: ? Author Type: Registered Nurse Type: Progress Notes Filed: 08/25/2024 15:06 Note Text: CDM [facility] Telephonic Outreach Provider Maggi/FYI Provider Seng, patient is using a continuous glucose monitor. However, she used to get them for free but now is being charged a copay. She would like to get financial assistance for these. Please has staff follow up if any assistance can be given. Thank you Provider Cathy, Per CD protocol , patients with DM should have HgA1c every 6 months. Please order if needed. Thank you Requests a call in a month. She is busy for the next few weeks and would like to avoid calls during this time. Patient identified by Name and Date of . Discussed care with patient. Program Details Chronic Disease Management Status: Enrolled Effective Dates: 06/23/2024 - present Responsible Staff: Lory Chan RN Support and Services: Chronic Obstructive Pulmonary Disease (COPD), Hypertension, Chronic Kidney Disease (CKD), Diabetes Program Goals Targets Target Due Completed Completed By Outcome General education provided (managing stress, where to go/how to contact, etc.) 07/25/2024 -- -- -- Annual Medicare Wellness visit addressed 09/22/2024 -- -- -- Annual Nephrology visit addressed 09/22/2024 -- -- -- Annual Pulmonology visit addressed 09/22/2024 -- -- -- Biannual PCP visit addressed 09/22/2024 -- -- -- CKD lab care gaps addressed 09/22/2024 -- -- -- Comprehensive CKD education provided 09/22/2024 -- -- -- Comprehensive COPD education provided 09/22/2024 -- -- -- Patient-stated goal addressed (add comment) 09/22/2024 -- -- -- More energy, more social life, Comprehensive Diabetes education provided 09/22/2024 08/25/2024 Lory Chan RN Complete Diabetes lab care gaps addressed 09/22/2024 08/25/2024 Lory Chan RN Complete/Scheduled Comprehensive HTN education provided 09/22/2024 08/10/2024 Lory Chan RN Complete HTN lab care gaps addressed 09/22/2024 08/10/2024 Lory Chan RN Complete/Scheduled Intake assessments completed: ADLs, Fall Risk, SDOH 07/25/2024 06/23/2024 Lory Chan RN Complete Assessments CDM Assessment Medications: Do you have any questions about taking your medications or which medications you should be taking?: No Do you need any medication refills at this time, including any of the medication you might take only when needed?: No Social: It can be normal to feel anxious or down during a time like this. Would you like to talk to a mental health professional about how you have been feeling?: No Symptoms: Are you experiencing any new or worsening symptoms that you need to talk about today?: No ADLs No documentation this encounter Fall Risk No documentation this encounter SDOH No documentation this encounter Interventions The following were addressed during this visit: - Comprehensive Diabetes education provided - Diabetes lab care gaps addressed - Month 1: Schedule/Order Lipid Panel Lab - Month 1: Schedule Diabetes Eye Exam - Month 1: Provide Diabetes Education: How to: Blood Sugar Monitoring - Month 1: Provide Diabetes Education: Importance of Blood Sugar Monitoring - Month 1: Provide Diabetes Education: Signs and Symptoms of Low Blood Sugar - Month 1: Provide Diabetes Education: How to Manage Blood Sugar - Month 2: Provide Diabetes Education: Diet Modification: Plate Method - Month 2: Provide Diabetes Education: Diet Modification: Added Sugars in Drinks - Month 3: Provide Diabetes Education: Medication Adherence/Compliance - Month 3: Provide Diabetes Education: Understanding Medication - Month 3: Schedule/Order Urine Albumin Creatinine lab - Bi-Weekly Outreach (Recurring) Disposition Based on payroll director, the following disposition is advised: No action needed Lory Chan RN August 25, 2024 2:58 PM [facility] 08-25-2024 History of Present illness Narrative Images from the original note were not included. [facility] Care Path Telephonic Outreach Provider Action/FYI Provider Seng, patient is using a continuous glucose monitor. However, she used to get them for free but now is being charged a copay. She would like to get financial assistance for these. Please has staff follow up if any assistance can be given. Thank you Provider Cathy, Per [facility] protocol , patients with DM should have HgA1c every 6 months. Please order if needed. Thank you Requests a call in a month. She is busy for the next few weeks and would like to avoid calls during this time. Patient identified by Name and Date of . Discussed care with patient. Program Details Chronic Disease Management Status: Enrolled Effective Dates: 06/23/2024 - present Responsible Staff: Lory Chan, GRACE Support and Services: Chronic Obstructive Pulmonary Disease (COPD), Hypertension, Chronic Kidney Disease (CKD), Diabetes Program Goals Targets Target Due Completed Completed By Outcome General education provided (managing stress, where to go/how to contact, etc.) 07/25/2024 -- -- -- Annual Medicare Wellness visit addressed 09/22/2024 -- -- -- Annual Nephrology visit addressed 09/22/2024 -- -- -- Annual Pulmonology visit addressed 09/22/2024 -- -- -- Biannual PCP visit addressed 09/22/2024 -- -- -- CKD lab care gaps addressed 09/22/2024 -- -- -- Comprehensive CKD education provided 09/22/2024 -- -- -- Comprehensive COPD education provided 09/22/2024 -- -- -- Patient-stated goal addressed (add comment) 09/22/2024 -- -- -- More energy, more social life, Comprehensive Diabetes education provided 09/22/2024 08/25/2024 Lory Chan RN Complete Diabetes lab care gaps addressed 09/22/2024 08/25/2024 Lory Chan RN Complete/Scheduled Comprehensive HTN education provided 09/22/2024 08/10/2024 Lory Chan RN Complete HTN lab care gaps addressed 09/22/2024 08/10/2024 Lory Chan RN Complete/Scheduled Intake assessments completed: ADLs, Fall Risk, SDOH 07/25/2024 06/23/2024 Lory Chan RN Complete Assessments CDM Assessment Medications: Do you have any questions about taking your medications or which medications you should be taking?: No Do you need any medication refills at this time, including any of the medication you might take only when needed?: No Social: It can be normal to feel anxious or down during a time like this. Would you like to talk to a mental health professional about how you have been feeling?: No Symptoms: Are you experiencing any new or worsening symptoms that you need to talk about today?: No ADLs No documentation this encounter Fall Risk No documentation this encounter SDOH No documentation this encounter Interventions The following were addressed during this visit: - Comprehensive Diabetes education provided - Diabetes lab care gaps addressed - Month 1: Schedule/Order Lipid Panel Lab - Month 1: Schedule Diabetes Eye Exam - Month 1: Provide Diabetes Education: How to: Blood Sugar Monitoring - Month 1: Provide Diabetes Education: Importance of Blood Sugar Monitoring - Month 1: Provide Diabetes Education: Signs and Symptoms of Low Blood Sugar - Month 1: Provide Diabetes Education: How to Manage Blood Sugar - Month 2: Provide Diabetes Education: Diet Modification: Plate Method - Month 2: Provide Diabetes Education: Diet Modification: Added Sugars in Drinks - Month 3: Provide Diabetes Education: Medication Adherence/Compliance - Month 3: Provide Diabetes Education: Understanding Medication - Month 3: Schedule/Order Urine Albumin Creatinine lab - Bi-Weekly Outreach (Recurring) Disposition Based on payroll director, the following disposition is advised: No action needed Lory Chan RN August 25, 2024 2:58 PM documented in this encounter [facility] 08-25-2024 History of Present illness Narrative Program_ID:[id number] Access Code: [email or web address] URL: [email or web address] Date: 08-25-2024 Prepared By: Apple Bender Program Notes Exercises - Supine Figure 4 Piriformis Stretch - 1 x daily - 7 x weekly - 1 sets - 2 reps - Supine Hip Internal and External Rotation - 1 x daily - 7 x weekly - 1 sets - 10 reps Program_ID:[id number] Access Code: [email or web address] URL: [email or web address] Date: 08-24-2024 Prepared By: Apple Bender Program Notes Exercises - Supine Figure 4 Piriformis Stretch - 1 x daily - 7 x weekly - 1 sets - 2 reps - Supine Hip Internal and External Rotation - 1 x daily - 7 x weekly - 1 sets - 10 reps Images from the original note were not included. Episode Visit Count: 1 Therapist That Will Accept/Oversee The Plan Of Care: Apple Bender PT, DPT Start of Care Date: 08/24/24 Onset Date: 08/25/23 Plan of Care Certification Date: 08/24/24 Next Certification Due Date: 05/02/24 Patient Identified by Name and Date of : Yes REHABILITATION AND SPORTS THERAPY PHYSICAL THERAPY EVALUATION PLAN OF CARE: Assessment: Mary Jane De Paz presents with chief complaint of right knee pain that interferes with stair negotiation, rising from a chair, sleeping (right sidelying) . The patient presents with impairments in ADL's, balance, flexibility, gait, strength, symptom management, and tissue tenderness. PROMIS (Patient-Reported Outcomes Measurement Information System) scores were reviewed and identified as a rehabilitation concern. Prognosis for therapy is Good due to: current objective clinical presentation, good overall health status, positive past response to therapy, good support system/ coping skills, Prognosis may be limited due to chronic nature of impairments . The patient demonstrates increase tenderness to right IT band and medial aspect of right knee near pes anserine/proximal tibia. She has decrease strength in bilateral hips. The patient will benefit from skilled therapy services to meet the goals established for this plan of care as noted below. Goals for Episode of Care: established 08/24/24 Patient reported outcome of physical function will increase T-score by a minimum 5 points. [place] in home exercise program. Patient will decrease pain to 0/10 at rest and with functional activities to allow patient to improve ambulation. Patient will increase active ROM of Right knee to 0-125 degrees to allow pt to to improve gait mechanics / gait pattern . Patient will demonstrate increase in Bilateral lower extremitiystrength to 4+/5 during manual muscle testing in order to improve function for prior functional tasks. Perform rising from a chair with decreased report of symptoms/pain in 8 weeks. Patient will Improve Timed Up and Go to 11.44 seconds to demonstrate decreased risk of falling. Patient will improve 5 time sit to stand to 12.6 seconds to demonstrate improvement in functional lower extremity strength. Patient will ascend and descend 12 6 steps with rail. with no device with modified independence and safe technique demonstrating step over step pattern. The patient will have an abolishment to right IT band and medial aspect of right knee in 8 weeks. Patient Goals: not to hurt all the time Time Frame for Goals and Treatment : 10/20/24 Planned Interventions, Frequency, and Duration: Current Frequency: 1x/week Duration: 8 weeks Total Number of Visits Planned: 8 Planned Treatment Interventions: Therapeutic exercise (86987), Neuromuscular re-education (59709), Manual therapy (04152), Therapeutic activities (74431), Self-intermediate management (58497), Gait Training (93303), Body Mechanics Training, E-Stim Attended/TENS (75473) PLAN FOR NEXT VISIT: Strengthening and pain reduction. Consider bridge, SLR, clams, lateral walk, monster walk, shuttle DL and SL, calf press, step up, sit to stand (start at 22 or 20 inches), right knee flexion stretch on step. Dry needling to right knee with or without TENS. Patient demonstrates good understanding of plan of care and treatment. The above goals and plan of care were discussed and agreed upon by patient/family. SUBJECTIVE: The patient reports she has right knee pain. She has difficulty with balance. She has fallen a lot. She fell in [employer] parking lot, bleachers, and other ocassionals. She is aggrevated with sit to stand, stairs, and sleeping. Patient Goals: not to hurt all the time Functional Limitations: stair negotiation, rising from a chair, sleeping (right sidelying) Prior Level of Function: Independent without limitations Relevant History Past Relevant Medical Conditions: Diabetes, Hypertension, Thyroid Disease Past Relevant Surgical Conditions: Total Knee Replacement-Right, Total Knee Replacement-Left, Total Hip Replacement-Right Employment: Retired Recreation / Current Exercise: none Hobbies / Interests: crafting (patient makes Greeting cards) Home Environment Patient Lives With: Spouse Assistance Available: 24-Hour Home Type: Ranch Entry To Home: Stairs, Without Rail Number Of Stairs Into Home: 1 Tub/Shower Type: walk in shower Laundry: main level Equipment Owned: Sock Aid, Shower Chair, Walker- Wheeled, Commode- Raised, Human Services Manager, Elevated Toilet Seat, Grab Bars- Toilet, Lift Chair, Walker Bag/Basket Intake Information: Prescription present Previous Treatment: Surgery , Physical Therapy , Home Therapy , Pain meds , Ice , Topicals Falls Interview: Two or more falls in the last year Pain: Pain Pain Level: 2 Pain Location: Knee - Right Description: Aching Frequency: Continuous PROMIS Scales 08/23/2024 08/02/2024 03/19/2024 Higher is Better Phys Func - T Score 40 (mild dysfunction) 39 (moderate dysfunction) Phys Func - Percentile 16 14 Self-Eff Symptom - T Score 30 (Low) 38 (Low) Self-Eff Symptom - Percentile 2 12 T-scores: mean of general population = 50. 5 points is clinically meaningfully difference Percentiles provide an indication of how the patient's score ranks in relation to the general population. Higher percentile rankings indicate better function/quality of life. 50th percentile is the average of the general population and indicates half of respondents had a worse score. OBJECTIVE MEASURES WITH LEVEL OF FUNCTION: Knee Observations R Knee Palpation Tenderness: Iliotibial band, Pes anserinus (bursa medial knee) Knee Brace: Patellar sleeve LE PROM R Knee Extension: 0 Degrees R Knee Flexion: 120 Degrees R Ankle Dorsiflexion: 10 Degrees L Knee Extension: 0 Degrees L Knee Flexion: 125 Degrees L Ankle Dorsiflexion: 10 Degrees LE Flexibility Flexibility: Hamstring Flexibility R Hamstring Flexibility: WNL L Hamstring Flexibility: WNL LE Strength Trunk Strength: hip extension endurance test: 1 minute 18 seconds R Hip Extension: 4/5 R Hip Flexion (L2): 4/5 R Hip ABduction: 4/5 R Hip ADduction: 4/5 R Hip Internal Rotation: 4+/5 R Hip External Rotation: 4+/5 R Knee Extension (L3): 4+/5 R Knee Flexion: 4+/5 R Ankle Dorsiflexion (L4): 4+/5 L Hip Extension: 4/5 L Hip Flexion (L2): 4/5 L Hip ABduction: 4/5 L Hip ADduction: 4/5 L Hip Internal Rotation: 4+/5 L Hip External Rotation: 4+/5 L Knee Extension (L3): 4+/5 L Knee Flexion: 4+/5 L Ankle Dorsiflexion (L4): 4+/5 Special Tests - Hip and Spine Hip and Spine Special Tests: DIALLO Test, FADDIR Test DIALLO Test: Right Positive, Left Negative FADDIR Test: Right Negative, Left Negative Gait Gait: Independent Gait Observation: The patient demonstrates reciprocal gait pattern with minimal trendelenburg on right LE. Functional Performance Test Results 5 Times Sit to Stand Test : 13.5 sec Timed Up and Go (sec): 13.44 sec Education: Education Learning Preferences: Demonstration, Explanation, Performance, Printed Materials Barriers: None Learning/educational needs: Plan of Care, Home exercise program, Health promotion Education Provided: Yes, see treatment interventions for education provided Education Provided To: Patient Education Mode/Type: Demonstration, Explanation/Discussion, Literature/Printed Materials, Performance Response to Education/Teach Back: States/Identifies, Return Demonstration TREATMENT: PT Treatment Interventions: Manual Therapy, Therapeutic Exercise, Self-Senior Living Management Evaluation Therapeutic Exercise: 1: * Piriformis stretch 3 x 10 seconds each 2: * Supine hip internal and external rotation x 10 each Skilled Intervention: Patient was educated in proper exercise technique and purpose for exercises. Reviewed and educated patient on additions/changes for home exercise program as above (*). Skilled judgment was used in selection of appropriate interventions. Correct performance of therapeutic exercises was facilitated with verbal and visual cuing. Manual Therapy: Dry Needling: Dry needling to following Homeostatic points: Iliotibial , Common fibular , and Saphenous Needle length: 30mm 1.2 in. [place] used 3, needles removed 3. Dry needling technique used: Superficial techniques . Patient education on purpose, precautions, safety, risks, and other treatment options regarding dry needling. Verbal consent received. Skilled Intervention: Manual skills to improve joint mobility, ROM, and decrease pain. Utilized anatomy knowledge of the clinician, and assessment of patient's response to intervention. Self-Senior Living Management (74251): 1:1 time: 2 minutes (no charge) Dry needling: Therapeutic treatment that involves a monofilament needle to symptomatic points, neurogenic inflammation along a nerve, and globally to homeostatic points. You may feel cramping sensation locally or referred pain. Typically positive results occur within 2-4 sessions, but can vary depending on the cause and duration of symptoms. Use of heat and avoid NSAIDS is recommended unless MD suggests otherwise. Contraindications: extreme fear of needles, lymphedema in the site, infection, metal allergy, unstable INR, unstable epilepsy, and first trimester of . Reviewed possible adverse events from serious risks of pneumothorax, syncope; significant risk: hematoma, nerve injury, skin irritation; mild risk: bleeding, bruising, sweating, dizziness, fatigue, drowsiness, temporary symptom increase, pain during/after, soreness. Verbal constent provided from patient. Handout provided. Billing * Evaluation Moderate Complexity: 1 Unit Therapeutic Exercise Treatment Minutes: 7 Manual TherapyTreatment Minutes: 4 Self-Care/Home Management Treatment Minutes: 2 Skilled Treatment Time Minutes (timed and untimed codes): 40 Total Session Time (minutes): 40 Session Start Time : 1638 Session Stop Time : 1718 Apple Bender PT, DPT documented in this encounter [facility] 08-25-2024 Note Patient Outreach ([facility]) MARY JANE DE PAZ ([id number]) 1950 F Date Time Provider [facility] [facility] [place] your visit today, we recorded the following information about you: Lory Chan RN 08/25/2024 3:06 PM Signed [facility] Care Path Telephonic Outreach Provider Action/[facility] Provider Seng, patient is using a continuous glucose monitor. However, she used to get them for free but now is being charged a copay. She would like to get financial assistance for these. Please has staff follow up if any assistance can be given. Thank you Provider Cathy, Per [facility] protocol , patients with DM should have HgA1c every 6 months. Please order if needed. Thank you Requests a call in a month. She is busy for the next few weeks and would like to avoid calls during this time. Patient identified by Name and Date of . Discussed care with patient. Program Details Chronic Disease Management Status: Enrolled Effective Dates: 06/23/2024 - present Responsible Staff: Lory Chan, GRACE Support and Services: Chronic Obstructive Pulmonary Disease (COPD), Hypertension, Chronic Kidney Disease (CKD), Diabetes Program Goals Targets Target Due Completed Completed By Outcome General education provided (managing stress, where to go/how to contact, etc.) 07/25/2024 -- -- -- Annual Medicare Wellness visit addressed 09/22/2024 -- -- -- Annual Nephrology visit addressed 09/22/2024 -- -- -- Annual Pulmonology visit addressed 09/22/2024 -- -- -- Biannual PCP visit addressed 09/22/2024 -- -- -- CKD lab care gaps addressed 09/22/2024 -- -- -- Comprehensive CKD education provided 09/22/2024 -- -- -- Comprehensive COPD education provided 09/22/2024 -- -- -- Patient-stated goal addressed (add comment) 09/22/2024 -- -- -- More energy, more social life, Comprehensive Diabetes education provided 09/22/2024 08/25/2024 Lory Chan RN Complete Diabetes lab care gaps addressed 09/22/2024 08/25/2024 Lory Chan RN Complete/Scheduled Comprehensive HTN education provided 09/22/2024 08/10/2024 Lory Chan RN Complete HTN lab care gaps addressed 09/22/2024 08/10/2024 Lory Chan RN Complete/Scheduled Intake assessments completed: ADLs, Fall Risk, SDOH 07/25/2024 06/23/2024 Lory Chan RN Complete Assessments CDM Assessment Medications: Do you have any questions about taking your medications or which medications you should be taking?: No Do you need any medication refills at this time, including any of the medication you might take only when needed?: No Social: It can be normal to feel anxious or down during a time like this. Would you like to talk to a mental health professional about how you have been feeling?: No Symptoms: Are you experiencing any new or worsening symptoms that you need to talk about today?: No ADLs No documentation this encounter Fall Risk No documentation this encounter SDOH No documentation this encounter Interventions The following were addressed during this visit: - Comprehensive Diabetes education provided - Diabetes lab care gaps addressed - Month 1: Schedule/Order Lipid Panel Lab - Month 1: Schedule Diabetes Eye Exam - Month 1: Provide Diabetes Education: How to: Blood Sugar Monitoring - Month 1: Provide Diabetes Education: Importance of Blood Sugar Monitoring - Month 1: Provide Diabetes Education: Signs and Symptoms of Low Blood Sugar - Month 1: Provide Diabetes Education: How to Manage Blood Sugar - Month 2: Provide Diabetes Education: Diet Modification: Plate Method - Month 2: Provide Diabetes Education: Diet Modification: Added Sugars in Drinks - Month 3: Provide Diabetes Education: Medication Adherence/Compliance - Month 3: Provide Diabetes Education: Understanding Medication - Month 3: Schedule/Order Urine Albumin Creatinine lab - Bi-Weekly Outreach (Recurring) Disposition Based on payroll director, the following disposition is advised: No action needed Lory Chan RN August 25, 2024 2:58 PM Christine Morgan APRN.CNP 08/26/2024 3:23 PM Signed We made multiple attempts to try to get this covered early in 2023. As it was covered initially and then in 2023 it was no longer covered (see notes below). Spoke with Ab. He states that the guidelines changed 07/06/22 and pt was approved by accident. He thought she was not having hypoglycemic episodes under 54. I noted on her 02/02/23 visit, it notes that her blood sugars range from 50's-200's. He thinks this will be sufficient. Last office visit he has is from 07/2022. Office visit faxed to Ab's personal fax number for review. 05/26/23 We spoke with ADS. The reason you are now required to pay for supplies is because you are not using injectable insulin. Medicare requires 1 of 2 things when dispensing CGM supplies for non insulin diabetics. Those requirements are: Patient has had recurring level 2 hypoglycemic (more content not included)... [facility] 08-24-2024 Note HNO ID: [id number] Author: APPLE BENDER PT DPJame Service: ? Author Type: Physical Therapist Type: Progress Notes Filed: 08/25/2024 09:22 Note Text: Episode Visit Count: 1 Therapist That Will Accept/Oversee The Plan Of Care: Apple Bender PT DPT Start of Care Date: 08/24/24 Onset Date: 08/25/23 Plan of Care Certification Date: 08/24/24 Next Certification Due Date: 05/02/24 Patient Identified by Name and Date of : Yes REHABILITATION AND SPORTS THERAPY PHYSICAL THERAPY EVALUATION PLAN OF CARE: Assessment: Mary Jane De Paz presents with chief complaint of right knee pain that interferes with stair negotiation, rising from a chair, sleeping (right sidelying) . The patient presents with impairments in ADL's, balance, flexibility, gait, strength, symptom management, and tissue tenderness. PROMIS? (Patient-Reported Outcomes Measurement Information System) scores were reviewed and identified as a rehabilitation concern. Prognosis for therapy is Good due to: current objective clinical presentation, good overall health status, positive past response to therapy, good support system/ coping skills, Prognosis may be limited due to chronic nature of impairments . The patient demonstrates increase tenderness to right IT band and medial aspect of right knee near pes anserine/proximal tibia. She has decrease strength in bilateral hips. The patient will benefit from skilled therapy services to meet the goals established for this plan of care as noted below. Goals for Episode of Care: established 08/24/24 Patient reported outcome of physical function will increase T-score by a minimum 5 points. [place] in home exercise program. Patient will decrease pain to 0/10 at rest and with functional activities to allow patient to improve ambulation. Patient will increase active ROM of Right knee to 0-125 degrees to allow pt to to improve gait mechanics / gait pattern . Patient will demonstrate increase in Bilateral lower extremitiystrength to 4+/5 during manual muscle testing in order to improve function for prior functional tasks. Perform rising from a chair with decreased report of symptoms/pain in 8 weeks. Patient will Improve Timed Up and Go to 11.44 seconds to demonstrate decreased risk of falling. Patient will improve 5 time sit to stand to 12.6 seconds to demonstrate improvement in functional lower extremity strength. Patient will ascend and descend 12 6 steps with rail. with no device with modified independence and safe technique demonstrating step over step pattern. The patient will have an abolishment to right IT band and medial aspect of right knee in 8 weeks. Patient Goals: not to hurt all the time Time Frame for Goals and Treatment : 10/20/24 Planned Interventions, Frequency, and Duration: Current Frequency: 1x/week Duration: 8 weeks Total Number of Visits Planned: 8 Planned Treatment Interventions: Therapeutic exercise (68258), Neuromuscular re-education (36005), Manual therapy (10135), Therapeutic activities (39764), Self-intermediate management (20371), Gait Training (18103), Body Mechanics Training, E-Stim Attended/TENS (30297) PLAN FOR NEXT VISIT: Strengthening and pain reduction. Consider bridge, SLR, clams, lateral walk, monster walk, shuttle DL and SL, calf press, step up, sit to stand (start at 22 or 20 inches), right knee flexion stretch on step. Dry needling to right knee with or without TENS. Patient demonstrates good understanding of plan of care and treatment. The above goals and plan of care were discussed and agreed upon by patient/family. SUBJECTIVE: The patient reports she has right knee pain. She has difficulty with balance. She has fallen a lot. She fell in [employer] parking lot, bleachers, and other ocassionals. She is aggrevated with sit to stand, stairs, and sleeping. Patient Goals: not to hurt all the time Functional Limitations: stair negotiation, rising from a chair, sleeping (right sidelying) Prior Level of Function: Independent without limitations Relevant History Past Relevant Medical Conditions: Diabetes, Hypertension, Thyroid Disease Past Relevant Surgical Conditions: Total Knee Replacement-Right, Total Knee Replacement-Left, Total Hip Replacement-Right Employment: Retired Recreation / Current Exercise: none Hobbies / Interests: crafting (patient makes Greeting cards) Home Environment Patient Lives With: Spouse Assistance Available: 24-Hour Home Type: Ranch Entry To Home: Stairs, Without Rail Number Of Stairs Into Home: 1 Tub/Shower Type: walk in shower Laundry: main level Equipment Owned: Sock Aid, Shower Chair, Walker- Wheeled, Commode- Raised, Human Services Manager, Elevated Toilet Seat, Grab Bars- Toilet, Lift Chair, Walker Bag/Basket Intake Information: Prescription present Previous Treatment: Surgery , Physical Therapy , Home Therapy , Pain meds , Ice , Topicals Falls Interview: Two or more fa (more content not included)... [facility] 08-19-2024 Telephone encounter Note Prescription Refill Information The patient has been identified by name and date of : Yes Caregiver verified no other encounters exist for this prescription request: Yes Caregiver confirmed with patient/requestor that no other refills are due, in the near future, with this provider at this time: Yes The last office visit in the department: 01/15/24 Does the patient have a future office visit with this provider/department: No Requested Prescriptions Pending Prescriptions Disp Refills levothyroxine (SYNTHROID) 100 mcg tablet 90 tablet 3 Sig: Take 1 tablet by mouth once daily. *Pt requesting rx to go to [facility]. Ramo Russo LPN August 19, 2024 8:58 AM [facility] 08-19-2024 Miscellaneous Notes Prescription Refill Information The patient has been identified by name and date of : Yes Caregiver verified no other encounters exist for this prescription request: Yes Caregiver confirmed with patient/requestor that no other refills are due, in the near future, with this provider at this time: Yes The last office visit in the department: 01/15/24 Does the patient have a future office visit with this provider/department: No Requested Prescriptions Pending Prescriptions Disp Refills levothyroxine (SYNTHROID) 100 mcg tablet 90 tablet 3 Sig: Take 1 tablet by mouth once daily. *Pt requesting rx to go to [facility]. Ramo Russo LPN August 19, 2024 8:58 AM documented in this encounter [facility] 08-19-2024 Telephone encounter Note Prescription Refill Information The patient has been identified by name and date of : Yes Caregiver verified no other encounters exist for this prescription request: Yes Caregiver confirmed with patient/requestor that no other refills are due, in the near future, with this provider at this time: Yes The last office visit in the department: 01/15/24 Does the patient have a future office visit with this provider/department: No Requested Prescriptions Pending Prescriptions Disp Refills FLUoxetine (PROZAC) 40 mg capsule 180 capsule 1 Sig: Take 1 capsule by mouth two times a day. Ramo Russo LPN August 19, 2024 8:57 AM [facility] 08-19-2024 Miscellaneous Notes Prescription Refill Information The patient has been identified by name and date of : Yes Caregiver verified no other encounters exist for this prescription request: Yes Caregiver confirmed with patient/requestor that no other refills are due, in the near future, with this provider at this time: Yes The last office visit in the department: 01/15/24 Does the patient have a future office visit with this provider/department: No Requested Prescriptions Pending Prescriptions Disp Refills FLUoxetine (PROZAC) 40 mg capsule 180 capsule 1 Sig: Take 1 capsule by mouth two times a day. Raom Russo LPN August 19, 2024 8:57 AM documented in this encounter [facility] 08-18-2024 Note HNO ID: [id number] Author: DONAVON PATRICIA MD Service: ? Author Type: Physician Type: Progress Notes Filed: 08/18/2024 14:02 Note Text: Orthopaedic Office Note: August 18, 2024 2:01 PM Mary Jane De Paz 74 year old History: Mary Jane is a very nice 24-year-old woman well-known to me. I did a right hip conversion and a right knee conversion for her. She is here for follow-up on the right knee. She is having some pain in the right knee. Subjective: Right knee pain over the distal IT band and over the pes bursa Updated ROS: No changes Updated Exam: Right lower Extremity Well-healed incision No effusion Excellent range of motion Stable ligamentous exam Patella tracks centrally Tender palpation exquisitely over the iliotibial band distal third as well as the pes bursa Hip range of motion intact preserved with no pain Updated Imaging: Well-appearing knee replacement in appropriate position and alignment with no evidence of loosening Assessment and Plan: From a hip replacement and knee replacement standpoint, Mary Jane is doing well. She has soft tissue diagnosis of iliotibial band syndrome and pes bursitis. I have ordered physical therapy for both. I have also discussed Voltaren gel and a knee sleeve. All questions were answered today. If not improving in 6 weeks I would like her to reach out via [employer]. I spent a total of approximately 25 minutes on the date of the service which included preparing to see the patient, [id number] patient care, completing clinical documentation, obtaining and/or reviewing separately obtained history, performing a medically appropriate examination, counseling and educating the patient/family/caregiver, ordering medications, tests, or procedures, independently interpreting results (not separately reported), communicating results to the patient/family/caregiver, and care coordination (not separately reported). Donavon Patricia MD Orthopaedic Surgery [facility] 08-18-2024 History of Present illness Narrative Orthopaedic Office Note: August 18, 2024 2:01 PM Mary Jane De Paz 74 year old History: Mary Jane is a very nice 24-year-old woman well-known to me. I did a right hip conversion and a right knee conversion for her. She is here for follow-up on the right knee. She is having some pain in the right knee. Subjective: Right knee pain over the distal IT band and over the pes bursa Updated ROS: No changes Updated Exam: Right lower Extremity Well-healed incision No effusion Excellent range of motion Stable ligamentous exam Patella tracks centrally Tender palpation exquisitely over the iliotibial band distal third as well as the pes bursa Hip range of motion intact preserved with no pain Updated Imaging: Well-appearing knee replacement in appropriate position and alignment with no evidence of loosening Assessment and Plan: From a hip replacement and knee replacement standpoint, Mary Jane is doing well. She has soft tissue diagnosis of iliotibial band syndrome and pes bursitis. I have ordered physical therapy for both. I have also discussed Voltaren gel and a knee sleeve. All questions were answered today. If not improving in 6 weeks I would like her to reach out via [employer]. I spent a total of approximately 25 minutes on the date of the service which included preparing to see the patient, [id number] patient care, completing clinical documentation, obtaining and/or reviewing separately obtained history, performing a medically appropriate examination, counseling and educating the patient/family/caregiver, ordering medications, tests, or procedures, independently interpreting results (not separately reported), communicating results to the patient/family/caregiver, and care coordination (not separately reported). Donavon Patricia MD Orthopaedic Surgery documented in this encounter [facility] 08-18-2024 History of Present illness Narrative Radiology Service Progress Note PATIENT NAME: Mary Jane De Paz DATE OF SERVICE: August 18, 2024 TIME: 1:16 PM PATIENT IDENTITY VERIFICATION COMPLETED USING TWO (2) IDENTIFIERS: Name and Date of confirmed by patient verbally. FALL SCREENING: Has the patient had 2 falls in the last year or 1 fall with injury or currently using an Ambulatory Assistive Device (Walker, Cane, Wheelchair, Crutches, etc.)? No PATIENT GENDER DATA: Assigned female at . status: : No status: NO. PATIENT RELEVANT IMPLANT DATA REVIEWED: Not Applicable PATIENT PRESENTS WITH AN IMPLANTABLE OR ATTACHED DEAF/HARD OF HEARING SPECIALIST: No RADIOLOGY DEPARTMENT: General X-ray: Exam(s) Completed: Lower Extremity X-Ray(s): Knee, AP / Lat / Merchant Right and Wt. Bearing PERIPHERAL IV DATA: Not applicable SIGNED BY: Yaid Rodriguez August 18, 2024 1:16 PM documented in this encounter [facility] 08-18-2024 Note HNO ID: [id number] Author: FOX RAINEY Tech Service: ? Author Type: Child Welfare Consultant Type: Progress Notes Filed: 08/18/2024 13:18 Note Text: Radiology Service Progress Note PATIENT NAME: Mary Jane De Paz DATE OF SERVICE: August 18, 2024 TIME: 1:16 PM PATIENT IDENTITY VERIFICATION COMPLETED USING TWO (2) IDENTIFIERS: Name and Date of confirmed by patient verbally. FALL SCREENING: Has the patient had 2 falls in the last year or 1 fall with injury or currently using an Ambulatory Assistive Device (Walker, Cane, Wheelchair, Crutches, etc.)? No PATIENT GENDER DATA: Assigned female at . status: : No status: NO. PATIENT RELEVANT IMPLANT DATA REVIEWED: Not Applicable PATIENT PRESENTS WITH AN IMPLANTABLE OR ATTACHED DEAF/HARD OF HEARING SPECIALIST: No RADIOLOGY DEPARTMENT: General X-ray: Exam(s) Completed: Lower Extremity X-Ray(s): Knee, AP / Lat / Merchant Right and Wt. Bearing PERIPHERAL IV DATA: Not applicable SIGNED BY: Yadi Rodriguez August 18, 2024 1:16 PM [facility] 08-10-2024 Note HNO ID: [id number] Author: LORY CHAN RN Service: ? Author Type: Registered Nurse Type: Progress Notes Filed: 08/10/2024 15:04 Note Text: [facility] Path Telephonic Outreach Provider Action/FYI Refill sent for Nexium to pharmacy in [place]. Patient identified by Name and Date of . Discussed care with patient. Program Details Chronic Disease Management Status: Enrolled Effective Dates: 06/23/2024 - present Responsible Staff: Lory Chan RN Support and Services: Chronic Obstructive Pulmonary Disease (COPD), Hypertension, Chronic Kidney Disease (CKD), Diabetes Program Goals Targets Target Due Completed Completed By Outcome General education provided (managing stress, where to go/how to contact, etc.) 07/25/2024 -- -- -- Annual Medicare Wellness visit addressed 09/22/2024 -- -- -- Annual Nephrology visit addressed 09/22/2024 -- -- -- Annual Pulmonology visit addressed 09/22/2024 -- -- -- Biannual PCP visit addressed 09/22/2024 -- -- -- CKD lab care gaps addressed 09/22/2024 -- -- -- Comprehensive CKD education provided 09/22/2024 -- -- -- Comprehensive COPD education provided 09/22/2024 -- -- -- Comprehensive Diabetes education provided 09/22/2024 -- -- -- Diabetes lab care gaps addressed 09/22/2024 -- -- -- Patient-stated goal addressed (add comment) 09/22/2024 -- -- -- More energy, more social life, Comprehensive HTN education provided 09/22/2024 08/10/2024 Lory Chan RN Complete HTN lab care gaps addressed 09/22/2024 08/10/2024 Lory Chan RN Complete/Scheduled Intake assessments completed: ADLs, Fall Risk, SDOH 07/25/2024 06/23/2024 Lory Chan RN Complete Assessments CDM Assessment Medications: Do you have any questions about taking your medications or which medications you should be taking?: No Do you need any medication refills at this time, including any of the medication you might take only when needed?: Yes (sent in seperate encounter) Social: It can be normal to feel anxious or down during a time like this. Would you like to talk to a mental health professional about how you have been feeling?: No Symptoms: Are you experiencing any new or worsening symptoms that you need to talk about today?: No ADLs No documentation this encounter Fall Risk No documentation this encounter SDOH No documentation this encounter Interventions The following were addressed during this visit: - HTN lab care gaps addressed - Comprehensive HTN education provided - Month 1: Review Individual Blood Pressure Target (If established by provider) - Month 1: Provide HTN Education: What is High Blood Pressure - Month 1: Provide HTN Education: When to call your Doctor, When to seek Emergency Care - Month 2: Provide HTN Education: Sodium Controlled Diets - Month 2: Provide HTN Education: High Blood Pressure AND Nutrition - Month 3: Provide HTN Education: Understanding Medications - Month 3: Provide HTN Education: Medication Compliance - Month 3: Schedule/Order BMP Lab - Bi-Weekly Outreach (Recurring) Disposition Based on payroll director, the following disposition is advised: No action needed Lory Chan RN August 10, 2024 3:03 PM [facility] 08-10-2024 Note Patient Outreach (AM BC) MARY JANE DE PAZ ([id number]) 1950 F Date Time Provider [facility] [place] your visit today, we recorded the following information about you: Lory Chan RN 08/10/2024 3:04 PM Signed [facility] Path Telephonic Outreach Provider Action/ Refill sent for Nexium to pharmacy in [place]. Patient identified by Name and Date of . Discussed care with patient. Program Details Chronic Disease Management Status: Enrolled Effective Dates: 06/23/2024 - present Responsible Staff: Lory Chan, RN Support and Services: Chronic Obstructive Pulmonary Disease (COPD), Hypertension, Chronic Kidney Disease (CKD), Diabetes Program Goals Targets Target Due Completed Completed By Outcome General education provided (managing stress, where to go/how to contact, etc.) 07/25/2024 -- -- -- Annual Medicare Wellness visit addressed 09/22/2024 -- -- -- Annual Nephrology visit addressed 09/22/2024 -- -- -- Annual Pulmonology visit addressed 09/22/2024 -- -- -- Biannual PCP visit addressed 09/22/2024 -- -- -- CKD lab care gaps addressed 09/22/2024 -- -- -- Comprehensive CKD education provided 09/22/2024 -- -- -- Comprehensive COPD education provided 09/22/2024 -- -- -- Comprehensive Diabetes education provided 09/22/2024 -- -- -- Diabetes lab care gaps addressed 09/22/2024 -- -- -- Patient-stated goal addressed (add comment) 09/22/2024 -- -- -- More energy, more social life, Comprehensive HTN education provided 09/22/2024 08/10/2024 Lory Chan RN Complete HTN lab care gaps addressed 09/22/2024 08/10/2024 Lory Chan RN Complete/Scheduled Intake assessments completed: ADLs, Fall Risk, SDOH 07/25/2024 06/23/2024 Lory Chan RN Complete Assessments CDM Assessment Medications: Do you have any questions about taking your medications or which medications you should be taking?: No Do you need any medication refills at this time, including any of the medication you might take only when needed?: Yes (sent in seperate encounter) Social: It can be normal to feel anxious or down during a time like this. Would you like to talk to a mental health professional about how you have been feeling?: No Symptoms: Are you experiencing any new or worsening symptoms that you need to talk about today?: No ADLs No documentation this encounter Fall Risk No documentation this encounter SDOH No documentation this encounter Interventions The following were addressed during this visit: - HTN lab care gaps addressed - Comprehensive HTN education provided - Month 1: Review Individual Blood Pressure Target (If established by provider) - Month 1: Provide HTN Education: What is High Blood Pressure - Month 1: Provide HTN Education: When to call your Doctor, When to seek Emergency Care - Month 2: Provide HTN Education: Sodium Controlled Diets - Month 2: Provide HTN Education: High Blood Pressure AND Nutrition - Month 3: Provide HTN Education: Understanding Medications - Month 3: Provide HTN Education: Medication Compliance - Month 3: Schedule/Order BMP Lab - Bi-Weekly Outreach (Recurring) Disposition Based on payroll director, the following disposition is advised: No action needed Lory Chan RN August 10, 2024 3:03 PM Allergies As of Date: 08/10/2024 (No Known Allergies) Date Reviewed: 08/02/2024 Reviewed by: Danuta Chacon LPN - Fully Assessed Prescriptions as of 08/10/2024 - dulaglutide (TRULICITY) 0.75 mg/0.5 mL pen injector Inject 0.75 mg subcutaneously one time a week. Inject 0.75 mg once weekly - levothyroxine (SYNTHROID) 100 mcg tablet Take 1 tablet by mouth once daily. - lisinopril (ZESTRIL) 20 mg tablet Take 1 tablet by mouth once daily. - atorvastatin (LIPITOR) 20 mg tablet Take 1 tablet by mouth daily at bedtime. For cholesterol. - famotidine (PEPCID) 20 mg tablet Take 1 tablet by mouth two times a day as needed (GERD). - buPROPion XL (WELLBUTRIN XL) 300 mg 24 hr tablet Take 1 tablet by mouth once daily. - traZODone (DESYREL) 100 mg tablet Take 2 tablets by mouth daily at bedtime. - Blood-Glucose Sensor (Secure-NOKYLE JAUN 3 PLUS SENSOR) guido 1 Each every 2 weeks. CHANGE sensor every 15 days. USE FOR CONTINUOUS GLUCOSE MONITORING. Dx: E11.9 RISK FOR HYPOGLYCEMIA. - esomeprazole (NEXIUM) 40 mg capsule TAKE ONE CAPSULE BY MOUTH twice daily. - FLUoxetine (PROZAC) 40 mg capsule Take 1 capsule by mouth two times a day. - melatonin 10 mg tab Take 1 tablet by mouth at bedtime as needed for insomnia. - Calcium Citrate 250 mg calcium tab Take 250 mg by mouth. - coffee xt/phosphatidyl serine (NEURIVA ORIGINAL ORAL) Take 2 tablets by mouth once daily. - APPLE CIDER VINEGAR ORAL Take 1 capsule by mouth once daily. Combined with the tumeric - lactose-reduced food (ADULT NUTRITIONAL SUPPLEMENT ORAL) (Discontinued) Take 1 capsule by mouth on (more content not included)... [facility] 08-03-2024 History of Present illness Narrative Radiology Service Progress Note PATIENT NAME: Mary Jane De Paz DATE OF SERVICE: August 03, 2024 TIME: 11:20 AM PATIENT IDENTITY VERIFICATION COMPLETED USING TWO (2) IDENTIFIERS: Name and Date of confirmed by patient verbally. FALL SCREENING: Has the patient had 2 falls in the last year or 1 fall with injury or currently using an Ambulatory Assistive Device (Walker, Cane, Wheelchair, Crutches, etc.)? No PATIENT GENDER DATA: Assigned female at . status: : No status: NO. PATIENT RELEVANT IMPLANT DATA REVIEWED: Not Applicable PATIENT PRESENTS WITH AN IMPLANTABLE OR ATTACHED DEAF/HARD OF HEARING SPECIALIST: No RADIOLOGY DEPARTMENT: Mammography PERIPHERAL IV DATA: Not applicable SIGNED BY: RT Lamberto(Juliocesar) August 03, 2024 11:20 AM documented in this encounter [facility] 08-03-2024 Note HNO ID: [id number] Author: MARIA ALEJANDRA AVILA RT (R) Service: ? Author Type: Technologist Type: Progress Notes Filed: 08/03/2024 11:20 Note Text: Radiology Service Progress Note PATIENT NAME: Mary Jane De Paz DATE OF SERVICE: August 03, 2024 TIME: 11:20 AM PATIENT IDENTITY VERIFICATION COMPLETED USING TWO (2) IDENTIFIERS: Name and Date of confirmed by patient verbally. FALL SCREENING: Has the patient had 2 falls in the last year or 1 fall with injury or currently using an Ambulatory Assistive Device (Walker, Cane, Wheelchair, Crutches, etc.)? No PATIENT GENDER DATA: Assigned female at . status: : No status: NO. PATIENT RELEVANT IMPLANT DATA REVIEWED: Not Applicable PATIENT PRESENTS WITH AN IMPLANTABLE OR ATTACHED DEAF/HARD OF HEARING SPECIALIST: No RADIOLOGY DEPARTMENT: Mammography PERIPHERAL IV DATA: Not applicable SIGNED BY: RT Lamberto(Juliocesar) August 03, 2024 11:20 AM [facility] 08-02-2024 Telephone encounter Note Mary Jane De Paz [id number] concession worker contacted [facility] (Phone # ) to check on the status of medication assistance application for the medication(s) Trulicity 0.75 mg . Total Hold Time 5 Minutes. Program reports patient has been approved through 03/22/2025. Medication will be shipped to patient's home within 10-14 business days. Patient has been informed. KHUSHBOO Bridges, DUC August 02, 2024 1:30 PM [facility] Work Phone: 08-02-2024 Miscellaneous Notes Mary Jane De Paz [phone] concession worker contacted [facility] (Phone # ) to check on the status of medication assistance application for the medication(s) Trulicity 0.75 mg . Total Hold Time 5 Minutes. Program reports patient has been approved through 03/22/2025. Medication will be shipped to patient's home within 10-14 business days. Patient has been informed. KHUSHBOO Bridges LSW August 02, 2024 1:30 PM documented in this encounter [facility] 08-02-2024 Telephone encounter Note PT scheduled for MSK US on 09/05/24 at 3:45 PM at Sports [facility] 08-02-2024 Miscellaneous Notes PT scheduled for MSK US on 09/05/24 at 3:45 PM at Sports Visit Type: ANY MSK Visit Length: 45, 50 OR 60 MINUTES Order Name/Protocol: US SHOULDER RT; EVAL FOR IMPINGEMENT SYNDROME+RTC STRAIN Preferred Provider: N/A Comment: Please ask if the patient has ever had any prior surgery to their RT shoulder. If so, upgrade the visit type to an MSK1 and notate the surgical hx in the Appointment Note. Location: Depending on the surgical hx, this patient can have this exam performed at any of our four locations. Slot held: N/A documented in this encounter [facility] 08-02-2024 Telephone encounter Note Visit Type: ANY MSK Visit Length: 45, 50 OR 60 MINUTES Order Name/Protocol: US SHOULDER RT; EVAL FOR IMPINGEMENT SYNDROME+RTC STRAIN Preferred Provider: N/A Comment: Please ask if the patient has ever had any prior surgery to their RT shoulder. If so, upgrade the visit type to an MSK1 and notate the surgical hx in the Appointment Note. Location: Depending on the surgical hx, this patient can have this exam performed at any of our four locations. Slot held: N/A [facility] 08-02-2024 Note HNO ID: [id number] Author: DELFIN KERR MD Service: ? Author Type: Physician Type: Progress Notes Filed: 08/25/2024 17:28 Note Text: Delfin Kerr MD Department of Orthopaedics Orthopaedics [address] [place], [place] [id number] Dept: [phone] August 25, 2024 CHIEF COMPLAINT: Established Patient and Pain of the Right Shoulder Patient presents for a follow up right shoulder pain. She states she has intermittent sharp 8/10 pain with movement. Currently she is not taking any oral medications for pain control. Right hand dominant. Last office visit 03/29/2024, she was given a steroid injection; helped approximately one month. HPI: BARBARA Gray is a 74-year-old female with a history of diabetes, presenting for evaluation of right shoulder pain. Mary Jane reports persistent right shoulder pain since a fall in March, which has been variably described as a sharp, hot pain located near the trapezius and extending to the area of the rotator cuff and biceps tendon. The pain is intermittent, with the sharp pain not felt in the past several days. She received a corticosteroid injection in March, which provided relief for approximately one month. She has been applying Voltaren gel to the shoulder area, but not on the top of the shoulder. She denies any recent imaging studies such as an ultrasound. Mary Jane also reports severe, constant knee pain following a knee replacement performed by Dr. Patricia. She is unable to undergo MRI due to a stent. She has a history of multiple falls and expresses concern about a potential rotator cuff tear. She has not engaged in physical therapy for the shoulder but has therapy bands at home. She denies any recent mendez or electrocution injuries. ASSESSMENT: M75.41 Impingement syndrome of right shoulder (primary encounter diagnosis) S46.011D Rotator cuff strain, right, subsequent encounter 1. Impingement syndrome of right shoulder (M75.41) Rotator cuff strain, right, subsequent encounter (S46.011D) Persistent pain in the right shoulder with varying intensity, including sharp, hot pain near the trapezius and discomfort near the rotator cuff and biceps tendon. Previous injection provided temporary relief. X-rays from March were unremarkable, but do not visualize tendons. Differential includes bursitis versus tendon injury. - Ordered ultrasound of the right shoulder to evaluate the rotator cuff and biceps tendon. - Initiated physical therapy referral for shoulder strengthening exercises. - Patient to continue using Voltaren gel topically on the shoulder. - Follow-up after ultrasound results to discuss further management, including potential repeat injection or surgical referral if a significant tear is identified. Will continue to monitor patient for Impingement syndrome of right shoulder (primary encounter diagnosis) Rotator cuff strain, right, subsequent encounter, patient to schedule visit as per follow up discussed. OBJECTIVE: Ms. Mary Jane De Paz is a pleasant 74 year old in no apparent distress. Gen:There were no vitals taken for this visit. nl development, non obese, no deformities ENT: Normocephalic, normal hearing, moist mucosa CV: Pulses:Radial= 2+ and symmetric, capillary refill < 2 secs, no peripheral edema/varicosities Skin: no rash, bruising or lesions. Good turgor. Psych: cooperative and appropriate, alert and oriented x 3, good mood and affect. Musculoskeletal: - Musculoskeletal: - Right Shoulder: Tenderness over rotator cuff and biceps tendon. Limited motion with 170, 50, upper lumbar. Positive Neer, Mullins and Speed's. Imaging: Labs: - Renal function tests: Mildly elevated Imaging: - (March) Shoulder X-ray: No significant abnormalities noted Impression IMPRESSION: Findings as discussed in results portion of report Senior Laboratory Technician: SEFERINO Transcribe Date/Time: Mar 29 2024 4:16P Dictated by : DESHAUN WHITAKER DO This examination was interpreted and the report reviewed and electronically signed by: DESHAUN WHITAKER DO on Mar 29 2024 4:17PM EST Results-Findings * * *Final Report* * * DATE OF EXAM: Mar 29 2024 11:LUANA HARDEN 5253 - XR SHLDR >/=3V AP/REGINA AP/OTHR RT / PROCEDURE REASON: M25.511-Right shoulder pain, unspecified chronicity * * * * Physician Interpretation * * * * EXAM(s): XR SHLDR >/=3V AP/REGINA AP/OTHR RT..... HISTORY: 74 years old Clinical information: Right shoulder pain, unspecified chronicity Patient states that she has been having right side shoulder pain for some time. TECHNIQUE: Images: XR SHLDR >/=3V AP/REGINA AP/OTHR RT Comparison: None. RESULT: Moderate bony demineralization. Moderate degenerative changes in the spine Findings: Moderate narrowing of the glenohumeral joint. AC joint is unremarkable. Acromiohumeral interval is preserved. No fractures or dislocations are seen. Supporting Subjective Information Below: Past Me (more content not included)... [facility] 08-02-2024 History of Present illness Narrative Delfin Kerr MD Department of Orthopaedics Orthopaedics [address] [place] [id number] Dept: [phone] August 25, 2024 CHIEF COMPLAINT: Established Patient and Pain of the Right Shoulder Patient presents for a follow up right shoulder pain. She states she has intermittent sharp 8/10 pain with movement. Currently she is not taking any oral medications for pain control. Right hand dominant. Last office visit 03/29/2024, she was given a steroid injection; helped approximately one month. HPI: BARBARA Gray is a 74-year-old female with a history of diabetes, presenting for evaluation of right shoulder pain. Mary Jane reports persistent right shoulder pain since a fall in March, which has been variably described as a sharp, hot pain located near the trapezius and extending to the area of the rotator cuff and biceps tendon. The pain is intermittent, with the sharp pain not felt in the past several days. She received a corticosteroid injection in March, which provided relief for approximately one month. She has been applying Voltaren gel to the shoulder area, but not on the top of the shoulder. She denies any recent imaging studies such as an ultrasound. Mary Jane also reports severe, constant knee pain following a knee replacement performed by Dr. Patricia. She is unable to undergo MRI due to a stent. She has a history of multiple falls and expresses concern about a potential rotator cuff tear. She has not engaged in physical therapy for the shoulder but has therapy bands at home. She denies any recent mendez or electrocution injuries. ASSESSMENT: M75.41 Impingement syndrome of right shoulder (primary encounter diagnosis) S46.011D Rotator cuff strain, right, subsequent encounter 1. Impingement syndrome of right shoulder (M75.41) Rotator cuff strain, right, subsequent encounter (S46.011D) Persistent pain in the right shoulder with varying intensity, including sharp, hot pain near the trapezius and discomfort near the rotator cuff and biceps tendon. Previous injection provided temporary relief. X-rays from March were unremarkable, but do not visualize tendons. Differential includes bursitis versus tendon injury. - Ordered ultrasound of the right shoulder to evaluate the rotator cuff and biceps tendon. - Initiated physical therapy referral for shoulder strengthening exercises. - Patient to continue using Voltaren gel topically on the shoulder. - Follow-up after ultrasound results to discuss further management, including potential repeat injection or surgical referral if a significant tear is identified. Will continue to monitor patient for Impingement syndrome of right shoulder (primary encounter diagnosis) Rotator cuff strain, right, subsequent encounter, patient to schedule visit as per follow up discussed. OBJECTIVE: Ms. Mary Jane De Paz is a pleasant 74 year old in no apparent distress. Gen:There were no vitals taken for this visit. nl development, non obese, no deformities ENT: Normocephalic, normal hearing, moist mucosa CV: Pulses:Radial= 2+ and symmetric, capillary refill < 2 secs, no peripheral edema/varicosities Skin: no rash, bruising or lesions. Good turgor. Psych: cooperative and appropriate, alert and oriented x 3, good mood and affect. Musculoskeletal: - Musculoskeletal: - Right Shoulder: Tenderness over rotator cuff and biceps tendon. Limited motion with 170, 50, upper lumbar. Positive Neer, Mullins and Speed's. Imaging: Labs: - Renal function tests: Mildly elevated Imaging: - (March) Shoulder X-ray: No significant abnormalities noted Impression IMPRESSION: Findings as discussed in results portion of report Senior Laboratory Technician: SEFERINO Transcribe Date/Time: Mar 29 2024 4:16P Dictated by : DESHAUN WHITAKER, DO This examination was interpreted and the report reviewed and electronically signed by: DESHAUN WHITAKER DO on Mar 29 2024 4:17PM EST Results-Findings * * *Final Report* * * DATE OF EXAM: Mar 29 2024 11:08AM FINA 5253 - XR SHLDR >/=3V AP/REGINA AP/OTHR RT / PROCEDURE REASON: M25.511-Right shoulder pain, unspecified chronicity * * * * Physician Interpretation * * * * EXAM(s): XR SHLDR >/=3V AP/REGINA AP/OTHR RT..... HISTORY: 74 years old Clinical information: Right shoulder pain, unspecified chronicity Patient states that she has been having right side shoulder pain for some time. TECHNIQUE: Images: XR SHLDR >/=3V AP/REGINA AP/OTHR RT Comparison: None. RESULT: Moderate bony demineralization. Moderate degenerative changes in the spine Findings: Moderate narrowing of the glenohumeral joint. AC joint is unremarkable. Acromiohumeral interval is preserved. No fractures or dislocations are seen. Supporting Subjective Information Below: Past Medical History: PAST MEDICAL HISTORY Diagnosis Date Allergic rhinitis Arthritis [facility], knee Asthma ([facility]) CKD (chronic kidney disease) 11/01/2018 Class 3 severe obesity with serious comorbidity and body mass index (BMI) of 40.0 to 44.9 in adult ([facility]) 08/19/2018 Coronary artery disease 10/28/[address] Salazar Fracture of right hip ([facility]) GERD (gastroesophageal reflux disease) History of transfusion HTN (hypertension) Hypothyroidism Mixed hyperlipidemia NIDDM (non-insulin dependent 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) MARIBEL on CPAP CPAP 9Cm Osteoarthritis of hip Renal lesion 01/15/2015 Suggest renal US every 1-2 years per PCP or nephro. Snoring Type 2 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 with hyperglycemia, with long-term current use of insulin ([facility]) 1999 Past Surgical History: PAST SURGICAL HISTORY Procedure Laterality Date ABDOMINAL SURGERY HX COLONOSCOPY 11/05/2016 Tammi- divertiuclosis, internal hemorrhoids, repeat in 5 years COLONOSCOPY 04/02/2022 repeat in 5 years due to reported prior history of polyps COSMETIC ASSESSMENT EGD 11/05/2016 Tammi- gastritis EGD 09/08/2018 /Gastritis EGD 04/02/2020 EGD 04/02/2022 EYE SURGERY HX Bilateral cataract extraction 2010's GASTRECTOMY,PART DISTAL;W/GASTRODUODENOSTO GASTRIC BYPASS HX 12/13/2018 Laparoscopic Samina-en-Y gastric bypass HIP SURGERY HX Screws replaced JOINT REPLACEMENT HX LAPAROSCOPY DIAGNOSTIC 07/26/2023 internal hernias and mesenteric adhesion OOPHORECTOMY PARTIAL OR TOTAL PAST SURGICAL HISTORY OF 2009 hemmroidectomy/sphincterectomy - Dr Nichole PAST SURGICAL HISTORY OF 2008 total left knee replacement PAST SURGICAL HISTORY OF 2003 partial right knee replacement PAST SURGICAL HISTORY OF 1990 total hysterectomy PAST SURGICAL HISTORY OF 2010 lDr Mansoor - [place] elbow fracture - traumatic. radial head replacement PAST SURGICAL HISTORY OF Bilateral 2016 hand surgery PAST SURGICAL HISTORY OF Left RELEASE CONTRACTURE DEQUERVAINS S INSERT PINN METAL NTRL HIP Right 11/17/2021 SKIN BIOPSY HX TOTAL HIP REPLACEMENT Right TOTAL KNEE REPLACEMENT Right 09/15/2022 TUBAL LIGATION HX VAGINAL HYSTERECTOMY Medications: Current Outpatient Medications Medication Sig dulaglutide (TRULICITY) 0.75 mg/0.5 mL pen injector Inject 0.75 mg subcutaneously one time a week. Inject 0.75 mg once weekly lisinopril (ZESTRIL) 20 mg tablet Take 1 tablet by mouth once daily. atorvastatin (LIPITOR) 20 mg tablet Take 1 tablet by mouth daily at bedtime. For cholesterol. famotidine (PEPCID) 20 mg tablet Take 1 tablet by mouth two times a day as needed (GERD). buPROPion XL (WELLBUTRIN XL) 300 mg 24 hr tablet Take 1 tablet by mouth once daily. traZODone (DESYREL) 100 mg tablet Take 2 tablets by mouth daily at bedtime. Blood-Glucose Sensor (FREESTYLE JAUN 3 PLUS SENSOR) guido 1 Each every 2 weeks. CHANGE sensor every 15 days. USE FOR CONTINUOUS GLUCOSE MONITORING. Dx: E11.9 RISK FOR HYPOGLYCEMIA. Calcium Citrate 250 mg calcium tab Take 250 mg by mouth. coffee xt/phosphatidyl serine (NEURIVA ORIGINAL ORAL) Take 2 tablets by mouth once daily. APPLE CIDER VINEGAR ORAL Take 1 capsule by mouth once daily. Combined with the tumeric MULTI-VITAMIN ORAL Take 1 tablet by mouth once daily. Takes bariatric multivitamin daily FLUoxetine (PROZAC) 40 mg capsule Take 1 capsule by mouth two times a day. levothyroxine (SYNTHROID) 100 mcg tablet Take 1 tablet by mouth once daily. esomeprazole (NEXIUM) 40 mg capsule TAKE ONE CAPSULE BY MOUTH twice daily. melatonin 10 mg tab Take 1 tablet by mouth at bedtime as needed for insomnia. No current facility-administered medications for this visit. Allergies: Patient has no known allergies. ROS: General (negative for fatigue, malaise, weight loss/gain) HEENT (negative for headache, earache, recent vision changes, sinus pain, sore throat) Respiratory (no recent shortness of breath, hemoptysis) CV (negative for chest tightness, palpitations) Musculoskeletal (see HPI) Psych (no depression, anxiety) Musculoskeletal: (+) right shoulder pain, (+) knee pain Recording using [employer] software for draft documentation of the visit was discussed with the patient/authorized student services representative; all questions welcomed and answered. Patient/authorized student services representative agreed to proceed Delfin Kerr MD documented in this encounter [facility] 07-29-2024 Note HNO ID: [id number] Author: LIMA LOPEZ MA Service: ? Author Type: Synthetic Staple Extruder Type: Progress Notes Filed: 07/29/2024 08:33 Note Text: POPULATION HEALTH NAVIGATION OUTREACH Action/FYI Community Monitoring Navigation Pool/CDM Discuss/Due for: Follow Up Memory Concerns HM Due: Medicare Wellness, Dilated Retinal Exam, KED, Hgb a1c [facility] team, please call for sooner PCP appointment, feels she is having memory problems. Outcome: 1st attempt - Left Message Final Attempt completed Reason for Outreach Community Monitoring/Network Navigator Pools AND Phone Line: Pool Care Gaps due: Medicare Annual Wellness Visit Follow-up Appointment Diabetic Eye Exam HBA1C KED Patient Contacted: Unable or unnecessary to reach patient: Left message Navigation Signature: Lima Lopez MA July 29, 2024 8:31 AM [facility] 07-27-2024 Note HNO ID: [id number] Author: LIMA LOPEZ MA Service: ? Author Type: Synthetic Staple Extruder Type: Progress Notes Filed: 07/27/2024 15:20 Note Text: POPULATION HEALTH NAVIGATION OUTREACH Action/FYI Community Monitoring Navigation Pool/CDM Discuss/Due for: Follow Up Memory Concerns HM Due: Medicare Wellness, Dilated Retinal Exam, KED, Hgb a1c [facility] team, please call for sooner PCP appointment, feels she is having memory problems. Outcome: 1st attempt - Left Message 2nd attempt - MyChart message sent Postpone x2 days Reason for Outreach Community Monitoring/Network Navigator Pools AND Phone Line: CM Pool Care Gaps due: Medicare Annual Wellness Visit Follow-up Appointment Diabetic Eye Exam HBA1C KED Patient Contacted: Unable or unnecessary to reach patient: Left message MyChart message sent Navigation Signature: Lima Lopez MA July 27, 2024 3:14 PM [facility] 07-27-2024 History of Present illness Narrative POPULATION HEALTH NAVIGATION OUTREACH Action/FYI Community Monitoring Navigation Pool/CDM Discuss/Due for: Follow Up Memory Concerns HM Due: Medicare Wellness, Dilated Retinal Exam, KED, Hgb a1c [facility] team, please call for sooner PCP appointment, feels she is having memory problems. Outcome: 1st attempt - Left Message 2nd attempt - MyChart message sent Postpone x2 days Reason for Outreach Community Monitoring/Network Navigator Pools & Phone Line: CM Pool Care Gaps due: Medicare Annual Wellness Visit Follow-up Appointment Diabetic Eye Exam HBA1C KED Patient Contacted: Unable or unnecessary to reach patient: Left message Maxim Athlet[employer] message sent Navigation Signature: Lima Lopez MA July 27, 2024 3:14 PM Images from the original note were not included. CDM Care Path Telephonic Outreach Provider Action/FYI [facility] team, please call for sooner PCP appointment, feels she is having memory problems. Feels she is having memory problems and are getting worse. She would like to discuss with PCP. She has had evaluations in the past has not had any treatment. Agrees to call from [facility] team to assist in getting an appointments. She feels she is lonely but they have lots of things this May for graduation and plan to camp in the summer. Given information on recent alzheimer association speakers in [place] Instructed to check online for additional classes. Notified that [facility] in [place] has Bingo for the community the last Fri of the month from 2:00-3:30 pm she will think about going to that in Nov. She placed the call on hold for several min, unable to do any additional education. Patient identified by Name and Date of . Discussed care with patient. Program Details Chronic Disease Management Status: Enrolled Effective Dates: 06/23/2024 - present Responsible Staff: Lory Chan RN Support and Services: Chronic Obstructive Pulmonary Disease (COPD), Hypertension, Chronic Kidney Disease (CKD), Diabetes Program Goals Targets Target Due Completed Completed By Outcome General education provided (managing stress, where to go/how to contact, etc.) 07/25/2024 -- -- -- Annual Medicare Wellness visit addressed 09/22/2024 -- -- -- Annual Nephrology visit addressed 09/22/2024 -- -- -- Annual Pulmonology visit addressed 09/22/2024 -- -- -- Biannual PCP visit addressed 09/22/2024 -- -- -- CKD lab care gaps addressed 09/22/2024 -- -- -- Comprehensive CKD education provided 09/22/2024 -- -- -- Comprehensive COPD education provided 09/22/2024 -- -- -- Comprehensive Diabetes education provided 09/22/2024 -- -- -- Comprehensive HTN education provided 09/22/2024 -- -- -- Diabetes lab care gaps addressed 09/22/2024 -- -- -- HTN lab care gaps addressed 09/22/2024 -- -- -- Patient-stated goal addressed (add comment) 09/22/2024 -- -- -- More energy, more social life, Intake assessments completed: ADLs, Fall Risk, SDOH 07/25/2024 06/23/2024 Lory Chan RN Complete Assessments CDM Assessment Medications: Do you have any questions about taking your medications or which medications you should be taking?: No Do you need any medication refills at this time, including any of the medication you might take only when needed?: No Social: It can be normal to feel anxious or down during a time like this. Would you like to talk to a mental health professional about how you have been feeling?: No Symptoms: Are you experiencing any new or worsening symptoms that you need to talk about today?: No ADLs No documentation this encounter Fall Risk No documentation this encounter SDOH No documentation this encounter Interventions No checklist tasks for this episode were completed during this visit, and no tasks for this episode are pending completion. Disposition Based on payroll director, the following disposition is advised: No action needed Lory Chan RN July 27, 2024 2:29 PM documented in this encounter [facility] 07-27-2024 Note HNO ID: [id number] Author: LORY CHAN RN Service: ? Author Type: Registered Nurse Type: Progress Notes Filed: 07/27/2024 14:54 Note Text: CDM Care Path Telephonic Outreach Provider Action/FYI [facility] team, please call for sooner PCP appointment, feels she is having memory problems. Feels she is having memory problems and are getting worse. She would like to discuss with PCP. She has had evaluations in the past has not had any treatment. Agrees to call from [facility] team to assist in getting an appointments. She feels she is lonely but they have lots of things this May for graduation and plan to camp in the summer. Given information on recent alzheimer association speakers in [place]. Instructed to check online for additional classes. Notified that [facility] in [place] has Bingo for the community the last Thu of the month from 2:00-3:30 pm she will think about going to that in Nov. She placed the call on hold for several min, unable to do any additional education. Patient identified by Name and Date of . Discussed care with patient. Program Details Chronic Disease Management Status: Enrolled Effective Dates: 06/23/2024 - present Responsible Staff: Lory Chan RN Support and Services: Chronic Obstructive Pulmonary Disease (COPD), Hypertension, Chronic Kidney Disease (CKD), Diabetes Program Goals Targets Target Due Completed Completed By Outcome General education provided (managing stress, where to go/how to contact, etc.) 07/25/2024 -- -- -- Annual Medicare Wellness visit addressed 09/22/2024 -- -- -- Annual Nephrology visit addressed 09/22/2024 -- -- -- Annual Pulmonology visit addressed 09/22/2024 -- -- -- Biannual PCP visit addressed 09/22/2024 -- -- -- CKD lab care gaps addressed 09/22/2024 -- -- -- Comprehensive CKD education provided 09/22/2024 -- -- -- Comprehensive COPD education provided 09/22/2024 -- -- -- Comprehensive Diabetes education provided 09/22/2024 -- -- -- Comprehensive HTN education provided 09/22/2024 -- -- -- Diabetes lab care gaps addressed 09/22/2024 -- -- -- HTN lab care gaps addressed 09/22/2024 -- -- -- Patient-stated goal addressed (add comment) 09/22/2024 -- -- -- More energy, more social life, Intake assessments completed: ADLs, Fall Risk, SDOH 07/25/2024 06/23/2024 Lory Chan RN Complete Assessments CDM Assessment Medications: Do you have any questions about taking your medications or which medications you should be taking?: No Do you need any medication refills at this time, including any of the medication you might take only when needed?: No Social: It can be normal to feel anxious or down during a time like this. Would you like to talk to a mental health professional about how you have been feeling?: No Symptoms: Are you experiencing any new or worsening symptoms that you need to talk about today?: No ADLs No documentation this encounter Fall Risk No documentation this encounter SDOH No documentation this encounter Interventions No checklist tasks for this episode were completed during this visit, and no tasks for this episode are pending completion. Disposition Based on payroll director, the following disposition is advised: No action needed Lory Chan RN July 27, 2024 2:29 PM [facility] 07-27-2024 Note Patient Outreach (AM [facility]) MARY JANE DE PAZ ([id number]) 1950 F Date Time Provider Department 07/27/24 LORY CHAN During your visit today, we recorded the following information about you: Lory Chan RN 07/27/2024 2:54 PM Signed CDM Care Path Telephonic Outreach Provider Maggi/[facility] team, please call for sooner PCP appointment, feels she is having memory problems. Feels she is having memory problems and are getting worse. She would like to discuss with PCP. She has had evaluations in the past has not had any treatment. Agrees to call from [facility] team to assist in getting an appointments. She feels she is lonely but they have lots of things this May for graduation and plan to camp in the summer. Given information on recent alzheimer association speakers in [place]. Instructed to check online for additional classes. Notified that [facility] in [place] has Bingo for the community the last Thu of the month from 2:00-3:30 pm she will think about going to that in Nov. She placed the call on hold for several min, unable to do any additional education. Patient identified by Name and Date of . Discussed care with patient. Program Details Chronic Disease Management Status: Enrolled Effective Dates: 06/23/2024 - present Responsible Staff: Lory Chan RN Support and Services: Chronic Obstructive Pulmonary Disease (COPD), Hypertension, Chronic Kidney Disease (CKD), Diabetes Program Goals Targets Target Due Completed Completed By Outcome General education provided (managing stress, where to go/how to contact, etc.) 07/25/2024 -- -- -- Annual Medicare Wellness visit addressed 09/22/2024 -- -- -- Annual Nephrology visit addressed 09/22/2024 -- -- -- Annual Pulmonology visit addressed 09/22/2024 -- -- -- Biannual PCP visit addressed 09/22/2024 -- -- -- CKD lab care gaps addressed 09/22/2024 -- -- -- Comprehensive CKD education provided 09/22/2024 -- -- -- Comprehensive COPD education provided 09/22/2024 -- -- -- Comprehensive Diabetes education provided 09/22/2024 -- -- -- Comprehensive HTN education provided 09/22/2024 -- -- -- Diabetes lab care gaps addressed 09/22/2024 -- -- -- HTN lab care gaps addressed 09/22/2024 -- -- -- Patient-stated goal addressed (add comment) 09/22/2024 -- -- -- More energy, more social life, Intake assessments completed: ADLs, Fall Risk, SDOH 07/25/2024 06/23/2024 Lory Chan RN Complete Assessments CDM Assessment Medications: Do you have any questions about taking your medications or which medications you should be taking?: No Do you need any medication refills at this time, including any of the medication you might take only when needed?: No Social: It can be normal to feel anxious or down during a time like this. Would you like to talk to a mental health professional about how you have been feeling?: No Symptoms: Are you experiencing any new or worsening symptoms that you need to talk about today?: No ADLs No documentation this encounter Fall Risk No documentation this encounter SDOH No documentation this encounter Interventions No checklist tasks for this episode were completed during this visit, and no tasks for this episode are pending completion. Disposition Based on payroll director, the following disposition is advised: No action needed Lory Chan RN July 27, 2024 2:29 PM Lima Lopez MA 07/27/2024 3:20 PM Addendum POPULATION HEALTH NAVIGATION OUTREACH Action/FYI Community Monitoring Navigation Pool/CDM Discuss/Due for: Follow Up Memory Concerns HM Due: Medicare Wellness, Dilated Retinal Exam, KED, Hgb a1c [facility] team, please call for sooner PCP appointment, feels she is having memory problems. Outcome: 1st attempt - Left Message 2nd attempt - Maxim Athletichart message sent Postpone x2 days Reason for Outreach Community Monitoring/Network Navigator Pools AND Phone Line: CM Pool Care Gaps due: Medicare Annual Wellness Visit Follow-up Appointment Diabetic Eye Exam HBA1C KED Patient Contacted: Unable or unnecessary to reach patient: Left message MyChart message sent Navigation Signature: Lima Lopez MA July 27, 2024 3:14 PM Lima Lopez MA 07/29/2024 8:33 AM Signed POPULATION HEALTH NAVIGATION OUTREACH Action/FYI Community Monitoring Navigation Pool/CDM Discuss/Due for: Follow Up Memory Concerns HM Due: Medicare Wellness, Dilated Retinal Exam, KED, Hgb a1c Oscar team, please call for sooner PCP appointment, feels she is having memory problems. Outcome: 1st attempt - Left Message Final Attempt completed Reason for Outreach Community Monitoring/Network Navigator Pools AND Phone Line: CM Pool Care Gaps due: Medicare Annual Wellness Visit Follow-up Appointment Diabetic Eye Exam HBA1C KED Patient Contacted: Unable or unnecessary to reach patient: Left message (more content not included)... [facility] 07-26-2024 Telephone encounter Note Mary Jane De Paz [id number] Received completed Patient Assistance Application through [employer] for the medication(s) Trulicity. Included Patient's Signature Still Needs: Provider's Signature Faxed to # [phone] for provider's signature. FAX OK. Provider will need to send E-Rx to [facility] [place] [address] - [address] [employer] [phone] KHUSHBOO Tomlinson LSW July 26, 2024 7:53 AM [facility] Work Phone: 07-26-2024 Miscellaneous Notes Mary Jane De Paz [id number] Received completed Patient Assistance Application through [employer] for the medication(s) Trulicity. Included Patient's Signature Still Needs: Provider's Signature Faxed to # [phone] for provider's signature. FAX OK. Provider will need to send E-Rx [place] [address] - [address] [facility] [phone] KHUSHBOO Tomlinson LSW July 26, 2024 7:53 AM documented in this encounter [facility] 07-20-2024 Note HNO ID: [id number] Author: LORY CHAN RN Service: ? Author Type: Registered Nurse Type: Progress Notes Filed: 07/20/2024 15:06 Note Text: CDM Care Path Telephonic Outreach Provider Action/FYI She is unable to talk today, agrees to a call next week Patient identified by Name and Date of . Discussed care with patient. Program Details Chronic Disease Management Status: Enrolled Effective Dates: 06/23/2024 - present Responsible Staff: Lory Chan RN Support and Services: Chronic Obstructive Pulmonary Disease (COPD), Hypertension, Chronic Kidney Disease (CKD), Diabetes Program Goals Targets Target Due Completed Completed By Outcome General education provided (managing stress, where to go/how to contact, etc.) 07/25/2024 -- -- -- Annual Medicare Wellness visit addressed 09/22/2024 -- -- -- Annual Nephrology visit addressed 09/22/2024 -- -- -- Annual Pulmonology visit addressed 09/22/2024 -- -- -- Biannual PCP visit addressed 09/22/2024 -- -- -- CKD lab care gaps addressed 09/22/2024 -- -- -- Comprehensive CKD education provided 09/22/2024 -- -- -- Comprehensive COPD education provided 09/22/2024 -- -- -- Comprehensive Diabetes education provided 09/22/2024 -- -- -- Comprehensive HTN education provided 09/22/2024 -- -- -- Diabetes lab care gaps addressed 09/22/2024 -- -- -- HTN lab care gaps addressed 09/22/2024 -- -- -- Patient-stated goal addressed (add comment) 09/22/2024 -- -- -- More energy, more social life, Intake assessments completed: ADLs, Fall Risk, SDOH 07/25/2024 06/23/2024 Lory Chan RN Complete Assessments No documentation this encounter Interventions No checklist tasks for this episode were completed during this visit, and no tasks for this episode are pending completion. Lory Chan RN July 20, 2024 3:05 PM [facility] 07-20-2024 History of Present illness Narrative Images from the original note were not included. [facility] Care Path Telephonic Outreach Provider Action/FYI She is unable to talk today, agrees to a call next week Patient identified by Name and Date of . Discussed care with patient. Program Details Chronic Disease Management Status: Enrolled Effective Dates: 06/23/2024 - present Responsible Staff: Lory Chan, RN Support and Services: Chronic Obstructive Pulmonary Disease (COPD), Hypertension, Chronic Kidney Disease (CKD), Diabetes Program Goals Targets Target Due Completed Completed By Outcome General education provided (managing stress, where to go/how to contact, etc.) 07/25/2024 -- -- -- Annual Medicare Wellness visit addressed 09/22/2024 -- -- -- Annual Nephrology visit addressed 09/22/2024 -- -- -- Annual Pulmonology visit addressed 09/22/2024 -- -- -- Biannual PCP visit addressed 09/22/2024 -- -- -- CKD lab care gaps addressed 09/22/2024 -- -- -- Comprehensive CKD education provided 09/22/2024 -- -- -- Comprehensive COPD education provided 09/22/2024 -- -- -- Comprehensive Diabetes education provided 09/22/2024 -- -- -- Comprehensive HTN education provided 09/22/2024 -- -- -- Diabetes lab care gaps addressed 09/22/2024 -- -- -- HTN lab care gaps addressed 09/22/2024 -- -- -- Patient-stated goal addressed (add comment) 09/22/2024 -- -- -- More energy, more social life, Intake assessments completed: ADLs, Fall Risk, SDOH 07/25/2024 06/23/2024 Lory Chan RN Complete Assessments No documentation this encounter Interventions No checklist tasks for this episode were completed during this visit, and no tasks for this episode are pending completion. Lory Chan RN July 20, 2024 3:05 PM documented in this encounter [facility] 07-20-2024 Telephone encounter Note Endocrinology & Metabolism Social Work Progress Note Provider Action / FYI N/A Mary Jane De Paz [id number] Type of Contact: telephone Endocrine ELEVATOR TENDER Referral Reason: Medication Cost Concerns Contact Made?: No- concession worker left a voicemail with her name, number, and requesting a return phone call. Note/Intervention: Unite referral placed: n/a Signature: DUC Bridges Patient Name: Mary Jane Keysfield Date: 07/20/2024 Time: 9:08 AM Pager/Contact #: [phone] During this patient contact I spent approximately 15 minutes in reviewing the patient's chart and counseling regarding community resources and coordinating care. [facility] Work Phone: 07-20-2024 Miscellaneous Notes Endocrinology & Metabolism Social Work Progress Note Provider Action / FYI N/A Mary Jane De Paz [id number] Type of Contact: telephone Endocrine ELEVATOR TENDER Referral Reason: Medication Cost Concerns Contact Made?: No- concession worker left a voicemail with her name, number, and requesting a return phone call. [facility] Signature: DUC Bridges Patient Name: Mary Jane De Paz Date: 07/20/2024 Time: 9:08 AM Pager/Contact #: [phone] During this patient contact I spent approximately 15 minutes in reviewing the patient's chart and counseling regarding community resources and coordinating care. documented in this encounter [facility] 07-20-2024 Note Patient Outreach (AM BC) MARY JANE DE PAZ ([id number]) 1950 F Date Time Provider Department 07/20/24 LORY CHAN During your visit today, we recorded the following information about you: Lory Chan, RN 07/20/2024 3:06 PM Signed CDM Care Path Telephonic Outreach Provider Action/FYI She is unable to talk today, agrees to a call next week Patient identified by Name and Date of . Discussed care with patient. Program Details Chronic Disease Management Status: Enrolled Effective Dates: 06/23/2024 - present Responsible Staff: Lory Chan RN Support and Services: Chronic Obstructive Pulmonary Disease (COPD), Hypertension, Chronic Kidney Disease (CKD), Diabetes Program Goals Targets Target Due Completed Completed By Outcome General education provided (managing stress, where to go/how to contact, etc.) 07/25/2024 -- -- -- Annual Medicare Wellness visit addressed 09/22/2024 -- -- -- Annual Nephrology visit addressed 09/22/2024 -- -- -- Annual Pulmonology visit addressed 09/22/2024 -- -- -- Biannual PCP visit addressed 09/22/2024 -- -- -- CKD lab care gaps addressed 09/22/2024 -- -- -- Comprehensive CKD education provided 09/22/2024 -- -- -- Comprehensive COPD education provided 09/22/2024 -- -- -- Comprehensive Diabetes education provided 09/22/2024 -- -- -- Comprehensive HTN education provided 09/22/2024 -- -- -- Diabetes lab care gaps addressed 09/22/2024 -- -- -- HTN lab care gaps addressed 09/22/2024 -- -- -- Patient-stated goal addressed (add comment) 09/22/2024 -- -- -- More energy, more social life, Intake assessments completed: ADLs, Fall Risk, SDOH 07/25/2024 06/23/2024 Lory Chan RN Complete Assessments No documentation this encounter Interventions No checklist tasks for this episode were completed during this visit, and no tasks for this episode are pending completion. Lory Chan RN July 20, 2024 3:05 PM Allergies As of Date: 07/20/2024 (No Known Allergies) Date Reviewed: 05/11/2024 Reviewed by: Baljinder Solis RN - Fully Assessed Prescriptions as of 07/20/2024 - levothyroxine (SYNTHROID) 100 mcg tablet Take 1 tablet by mouth once daily. - lisinopril (ZESTRIL) 20 mg tablet Take 1 tablet by mouth once daily. - atorvastatin (LIPITOR) 20 mg tablet Take 1 tablet by mouth daily at bedtime. For cholesterol. - famotidine (PEPCID) 20 mg tablet Take 1 tablet by mouth two times a day as needed (GERD). - buPROPion XL (WELLBUTRIN XL) 300 mg 24 hr tablet Take 1 tablet by mouth once daily. - traZODone (DESYREL) 100 mg tablet Take 2 tablets by mouth daily at bedtime. - Blood-Glucose Sensor (FREESTYLE JAUN 3 PLUS SENSOR) guido 1 Each every 2 weeks. CHANGE sensor every 15 days. USE FOR CONTINUOUS GLUCOSE MONITORING. Dx: E11.9 RISK FOR HYPOGLYCEMIA. - dulaglutide (TRULICITY) 0.75 mg/0.5 mL pen injector Inject 0.75 mg once weekly. PT ASST through [employer] - esomeprazole (NEXIUM) 40 mg capsule TAKE ONE CAPSULE BY MOUTH twice daily. - FLUoxetine (PROZAC) 40 mg capsule Take 1 capsule by mouth two times a day. - melatonin 10 mg tab Take 1 tablet by mouth at bedtime as needed for insomnia. - Calcium Citrate 250 mg calcium tab Take 250 mg by mouth. - coffee xt/phosphatidyl serine (NEURIVA ORIGINAL ORAL) Take 2 tablets by mouth once daily. - APPLE CIDER VINEGAR ORAL Take 1 capsule by mouth once daily. Combined with the tumeric - lactose-reduced food (ADULT NUTRITIONAL SUPPLEMENT ORAL) (Discontinued) Take 1 capsule by mouth once daily. Tumeric - 2000mg capsule - MULTI-VITAMIN ORAL Take 1 tablet by mouth once daily. 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] 08/05/2010 HTN (hypertension) [I10] 12/05/2011 10/14/2014 Hyperlipidemia [E78.5] 08/04/2012 Hypothyroid [E03.9] 11/28/2012 Generalized postprandial abdominal pain [R10.84]09/01/2013 Diarrhea [R19.7] 09/01/2013 08/30/2020 IBS (irritable bowel syndrome) [K58.9] 09/01/2013 Moderate episode of recurrent major depressive *04/28/2014 Essential hypertension [I10] 10/14/2014 MARIBEL (obstructive sleep apnea) [G47.33] 09/17/2015 Cognitive decline [R41.89] 01/10/2016 Other symbolic dysfunction [R48.8] 04/22/2016 Actinic keratoses [L57.0] 07/30/2016 GERD without esophagitis [K21.9] 10/09/2016 Encounter for screening colonoscopy [Z12.11] 10/09/2016 08/30/2020 Pain of foot [M79.673] 11/27/2016 08/30/2020 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 [facility] 07-19-2024 Telephone encounter Note Patient returned call,provider message relayed as stated below. Patient reports understanding and has no further questions. Lima Pandya MA [facility] 07-19-2024 Miscellaneous Notes Patient returned call,provider message relayed as stated below. Patient reports understanding and has no further questions. Lima Pandya MA Left message for patient to return call to office Erum Wakefield MA Please let patient know their labs are normal.continue current dose of levothyroxine. documented in this encounter [facility] 07-19-2024 Telephone encounter Note Left message for patient to return call to office Erum Wakefield MA [facility] 07-19-2024 Telephone encounter Note Please let patient know their labs are normal.continue current dose of levothyroxine. [facility] 06-27-2024 Note HNO ID: [id number] Author: ARIADNE HERNDON MA Service: ? Author Type: Synthetic Staple Extruder Type: Progress Notes Filed: 06/27/2024 14:03 Note Text: POPULATION HEALTH NAVIGATION OUTREACH Action/FYI Patient is on [employer] Work[employer] list for below and needs appointment to address: Anxiety Screening BP Controlled (<130/80) Bone Density Screening Diabetic Foot Exam Mammogram Screening Dilated Retinal Exam Advance Directive Discussion Hemoglobin A1C (%) Date Value 01/15/2024 6.2 02/27/2021 6.6 Patient due for: Medicare Annual Wellness Visit Follow up Appointment - Recheck in 6 months. Breast Cancer Screening Controlling Blood Pressure Diabetic Eye Exam EDITA Thomas Active: Yes Attempted to reach patient, phone picked up then disconnected unable to leave message. Sent [employer] message. HCC: Yes Reason for Outreach Care Gap/HCC or Scheduling Wellness Visits Care Gaps due: Medicare Annual Wellness Visit Follow-up Appointment Breast Cancer Screening Controlling Blood Pressure Diabetic Eye Exam EDITA Patient Contacted: Unable or unnecessary to reach patient: Unable to leave message MyChart message sent HCC related Navigation Signature: Ariadne Herndon MA June 27, 2024 2:00 PM [facility] 06-27-2024 History of Present illness Narrative POPULATION HEALTH NAVIGATION OUTREACH Action/FYI Patient is on [employer] Work[employer] list for below and needs appointment to address: Anxiety Screening BP Controlled (<130/80) Bone Density Screening Diabetic Foot Exam Mammogram Screening Dilated Retinal Exam Advance Directive Discussion Hemoglobin A1C (%) Date Value 01/15/2024 6.2 02/27/2021 6.6 Patient due for: Medicare Annual Wellness Visit Follow up Appointment - Recheck in 6 months. Breast Cancer Screening Controlling Blood Pressure Diabetic Eye Exam EDITA Thomas Active: Yes Attempted to reach patient, phone picked up then disconnected unable to leave message. Sent [employer] message. HCC: Yes Reason for Outreach Care Gap/HCC or Scheduling Wellness Visits Care Gaps due: Medicare Annual Wellness Visit Follow-up Appointment Breast Cancer Screening Controlling Blood Pressure Diabetic Eye Exam EDITA Patient Contacted: Unable or unnecessary to reach patient: Unable to leave message MyChart message sent HCC related Navigation Signature: Ariadne Herndon MA June 27, 2024 2:00 PM documented in this encounter [facility] 06-27-2024 Note Patient Outreach ([place]) MARY JANE DE PAZ ([id number]) 1950 F Date Time Provider Department 06/27/24 ARIADNE HERNDON During your visit today, we recorded the following information about you: Ariadne Herndon MA 06/27/2024 2:03 PM Signed POPULATION HEALTH NAVIGATION OUTREACH Action/ Patient is on [employer] Work[employer] list for below and needs appointment to address: Anxiety Screening BP Controlled (<130/80) Bone Density Screening Diabetic Foot Exam Mammogram Screening Dilated Retinal Exam Advance Directive Discussion Hemoglobin A1C (%) Date Value 01/15/2024 6.2 02/27/2021 6.6 Patient due for: Medicare Annual Wellness Visit Follow up Appointment - Recheck in 6 months. Breast Cancer Screening Controlling Blood Pressure Diabetic Eye Exam EDITA Thomas Active: Yes Attempted to reach patient, phone picked up then disconnected unable to leave message. Sent [employer] message. HCC: Yes Reason for Outreach Care Gap/HCC or Scheduling Wellness Visits Care Gaps due: Medicare Annual Wellness Visit Follow-up Appointment Breast Cancer Screening Controlling Blood Pressure Diabetic Eye Exam KED Patient Contacted: Unable or unnecessary to reach patient: Unable to leave message [employer] message sent HCC related Navigation Signature: Ariadne Herndon MA June 27, 2024 2:00 PM Allergies As of Date: 06/27/2024 (No Known Allergies) Date Reviewed: 05/11/2024 Reviewed by: Baljinder Solis RN - Fully Assessed Reason for Visit: Population Health Navigation Outreach [3910] Cmt: Micheal Daniel - Feroz PCSA Prescriptions as of 06/27/2024 - lisinopril (ZESTRIL) 20 mg tablet Take 1 tablet by mouth once daily. - atorvastatin (LIPITOR) 20 mg tablet Take 1 tablet by mouth daily at bedtime. For cholesterol. - famotidine (PEPCID) 20 mg tablet Take 1 tablet by mouth two times a day as needed (GERD). - buPROPion XL (WELLBUTRIN XL) 300 mg 24 hr tablet Take 1 tablet by mouth once daily. - traZODone (DESYREL) 100 mg tablet Take 2 tablets by mouth daily at bedtime. - Blood-Glucose Sensor (FREESTYLE JAUN 3 PLUS SENSOR) guido 1 Each every 2 weeks. CHANGE sensor every 15 days. USE FOR CONTINUOUS GLUCOSE MONITORING. Dx: E11.9 RISK FOR HYPOGLYCEMIA. - dulaglutide (TRULICITY) 0.75 mg/0.5 mL pen injector Inject 0.75 mg once weekly. PT ASST through [employer] - esomeprazole (NEXIUM) 40 mg capsule TAKE ONE CAPSULE BY MOUTH twice daily. - FLUoxetine (PROZAC) 40 mg capsule Take 1 capsule by mouth two times a day. - levothyroxine (SYNTHROID) 100 mcg tablet Take 1 tablet by mouth once daily. - melatonin 10 mg tab Take 1 tablet by mouth at bedtime as needed for insomnia. - Calcium Citrate 250 mg calcium tab Take 250 mg by mouth. - coffee xt/phosphatidyl serine (NEURIVA ORIGINAL ORAL) Take 2 tablets by mouth once daily. - APPLE CIDER VINEGAR ORAL Take 1 capsule by mouth once daily. Combined with the tumeric - lactose-reduced food (ADULT NUTRITIONAL SUPPLEMENT ORAL) (Discontinued) Take 1 capsule by mouth once daily. Tumeric - 2000mg capsule - MULTI-VITAMIN ORAL Take 1 tablet by mouth once daily. 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] 08/05/2010 HTN (hypertension) [I10] 12/05/2011 10/14/2014 Hyperlipidemia [E78.5] 08/04/2012 Hypothyroid [E03.9] 11/28/2012 Generalized postprandial abdominal pain [R10.84]09/01/2013 Diarrhea [R19.7] 09/01/2013 08/30/2020 IBS (irritable bowel syndrome) [K58.9] 09/01/2013 Moderate episode of recurrent major depressive *04/28/2014 Essential hypertension [I10] 10/14/2014 MARIBEL (obstructive sleep apnea) [G47.33] 09/17/2015 Cognitive decline [R41.89] 01/10/2016 Other symbolic dysfunction [R48.8] 04/22/2016 Actinic keratoses [L57.0] 07/30/2016 GERD without esophagitis [K21.9] 10/09/2016 Encounter for screening colonoscopy [Z12.11] 10/09/2016 08/30/2020 Pain of foot [M79.673] 11/27/2016 08/30/2020 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9] 11/27/2016 Hypertensive kidney disease with stage 3 chroni*04/13/2017 Contusion of leg, left, sequela [S80.12XS] 04/30/2017 08/30/2020 De Quervain's tenosynovitis, left [M65.4] 01/09/2018 Post-operative state [Z98.890] 05/26/2018 08/30/2020 Joint stiffness of hand, left [M25.642] 06/22/2018 Metacarpophalangeal joint pain of left hand [M2*07/20/2018 Finger pain, left [M79.645] 07/20/2018 Class 3 severe obesity with serious comorbidity*08/19/2018 08/30/2020 Asthma [J45.909] Stage 3 chronic kidney disease (HCC) [N18.30] 11/01/2018 Obesity [E66.9] 12/14/2018 08/30/2020 Obesity, Class II, BMI 35-39.9 [E66.812] 12/17/2018 08/30/2020 H/O gastric bypass [Z98.84] 12/23/2018 Closed displaced fracture of ri (more content not included)... [facility] 06-23-2024 Telephone encounter Note Sw spoke with patient in regards to transportation and she will call her member services number on card to see about transportation option to medical appts. Patient and Sw also discussed activities in the community. Sw is aware of the community center offering days for card playing, hikes/walking trails, yoga. Patient notes that she has an interest in bingo and playing cards. Sw checking with Yaritza Landaverde, Senior Outreach to see if she has a resource list with above activity options in the community. [facility] 06-23-2024 Miscellaneous Notes Sw spoke with patient in regards to transportation and she will call her member services number on card to see about transportation option to medical appts. Patient and Sw also discussed activities in the community. Sw is aware of the community center offering days for card playing, hikes/walking trails, yoga. Patient notes that she has an interest in bingo and playing cards. Sw checking with Yaritza Landaverde, Senior Outreach to see if she has a resource list with above activity options in the community. documented in this encounter [facility] 06-23-2024 Note HNO ID: [id number] Author: LORY CHAN RN Service: ? Author Type: Registered Nurse Type: Progress Notes Filed: 06/23/2024 13:22 Note Text: CDM ENROLLMENT Provider Action / FYI: Provider Seng, please have office follow up on the cost of her sensors for her blood sugar monitor. The delgadillo has gone up since they changed suppliers. Thank you concession worker, please assist in transportation to medical appointments and low cost social events in her area if possible. She is feeling isolated and they have a limited budget. Thank you Patient identified by name and date of . Discussed care with patient. Program Details Chronic Disease Management Status: Enrolled Effective Dates: 06/23/2024 - present Responsible Staff: Lory Chan RN Support and Services: Chronic Obstructive Pulmonary Disease (COPD), Hypertension, Chronic Kidney Disease (CKD), Diabetes Assessments CDM Assessment Medications: Do you have any questions about taking your medications or which medications you should be taking?: No Do you need any medication refills at this time, including any of the medication you might take only when needed?: No Social: It can be normal to feel anxious or down during a time like this. Would you like to talk to a mental health professional about how you have been feeling?: No Symptoms: Are you experiencing any new or worsening symptoms that you need to talk about today?: No ADLs Patients can perform the following activities without help: Dressing: Yes Bathing: Yes Doing laundry: Yes Climbing a flight of stairs: Yes Walking briskly: Yes Instrumental activities of daily living Do you drive a car?: Yes Do you need help from others to take care of things inside the house, for example: laundry, house cleaning, preparing meals?: No Do you need help from others with errands outside the house, for example: shopping for groceries or clothes, going medical appointments?: No Fall Risk One or more falls in the last year:: Yes Any near falls in the last year?: Yes Advised to use a cane or walker to get around safely:: No Feels unsteady when walking:: Yes Steadies self on furniture while walking at home:: Yes Worried about falling:: Yes Needs to push with hands when rising from a chair:: Yes Has trouble stepping up onto a curb:: Yes Often has to bridges to the toilet:: No Has lost some feeling in feet:: No Takes medicine that makes him/her feel lightheaded or more tired than usual:: No Takes medicine to sleep or improve mood:: No Fall risk factors:: Foot problems, Depression SDOH Financial Resource Strain How hard is it for you to pay for the very basics like food, housing, medical care, and heating?: Somewhat hard Housing Stability In the last 12 months, was there a time when you were not able to pay the mortgage or rent on time?: No In the past 12 months, how many times have you moved where you were living?: 0 At any time in the past 12 months, were you homeless or living in a retirement (including now)?: No Transportation Needs In the past 12 months, has lack of transportation kept you from medical appointments or from getting medications?: No In the past 12 months, has lack of transportation kept you from meetings, work, or from getting things needed for daily living?: No Food Insecurity Within the past 12 months, you worried that your food would run out before you got the money to buy more.: Never true Within the past 12 months, the food you bought just didn't last and you didn't have money to get more.: Never true Utilities In the past 12 months has the electric, gas, oil, or water company threatened to shut off services in your home?: No Tobacco Use Patient reports that she quit smoking about 35 years ago. Her smoking use included cigarettes. She started smoking about 57 years ago. She has a 33 pack-year smoking history. She has been exposed to tobacco smoke. She has never used smokeless tobacco. Interventions The following were addressed during this visit: - Intake assessments completed: ADLs, Fall Risk, SDOH Disposition Based on payroll director, the following disposition is advised: No action needed Lory Chan RN June 23, 2024 10:31 AM [facility] 06-23-2024 History of Present illness Narrative CDM ENROLLMENT Provider Action / FYI: Provider Seng, please have office follow up on the cost of her sensors for her blood sugar monitor. The delgadillo has gone up since they changed suppliers. Thank you concession worker, please assist in transportation to medical appointments and low cost social events in her area if possible. She is feeling isolated and they have a limited budget. Thank you Patient identified by name and date of . Discussed care with patient. Program Details Chronic Disease Management Status: Enrolled Effective Dates: 06/23/2024 - present Responsible Staff: Lory Chan, RN Support and Services: Chronic Obstructive Pulmonary Disease (COPD), Hypertension, Chronic Kidney Disease (CKD), Diabetes Assessments CDM Assessment Medications: Do you have any questions about taking your medications or which medications you should be taking?: No Do you need any medication refills at this time, including any of the medication you might take only when needed?: No Social: It can be normal to feel anxious or down during a time like this. Would you like to talk to a mental health professional about how you have been feeling?: No Symptoms: Are you experiencing any new or worsening symptoms that you need to talk about today?: No ADLs Patients can perform the following activities without help: Dressing: Yes Bathing: Yes Doing laundry: Yes Climbing a flight of stairs: Yes Walking briskly: Yes Instrumental activities of daily living Do you drive a car?: Yes Do you need help from others to take care of things inside the house, for example: laundry, house cleaning, preparing meals?: No Do you need help from others with errands outside the house, for example: shopping for groceries or clothes, going medical appointments?: No Fall Risk One or more falls in the last year:: Yes Any near falls in the last year?: Yes Advised to use a cane or walker to get around safely:: No Feels unsteady when walking:: Yes Steadies self on furniture while walking at home:: Yes Worried about falling:: Yes Needs to push with hands when rising from a chair:: Yes Has trouble stepping up onto a curb:: Yes Often has to bridges to the toilet:: No Has lost some feeling in feet:: No Takes medicine that makes him/her feel lightheaded or more tired than usual:: No Takes medicine to sleep or improve mood:: No Fall risk factors:: Foot problems, Depression SDOH Financial Resource Strain How hard is it for you to pay for the very basics like food, housing, medical care, and heating?: Somewhat hard Housing Stability In the last 12 months, was there a time when you were not able to pay the mortgage or rent on time?: No In the past 12 months, how many times have you moved where you were living?: 0 At any time in the past 12 months, were you homeless or living in a retirement (including now)?: No Transportation Needs In the past 12 months, has lack of transportation kept you from medical appointments or from getting medications?: No In the past 12 months, has lack of transportation kept you from meetings, work, or from getting things needed for daily living?: No Food Insecurity Within the past 12 months, you worried that your food would run out before you got the money to buy more.: Never true Within the past 12 months, the food you bought just didn't last and you didn't have money to get more.: Never true Utilities In the past 12 months has the electric, gas, oil, or water company threatened to shut off services in your home?: No Tobacco Use Patient reports that she quit smoking about 35 years ago. Her smoking use included cigarettes. She started smoking about 57 years ago. She has a 33 pack-year smoking history. She has been exposed to tobacco smoke. She has never used smokeless tobacco. Interventions The following were addressed during this visit: - Intake assessments completed: ADLs, Fall Risk, SDOH Disposition Based on payroll director, the following disposition is advised: No action needed Lory Chan RN June 23, 2024 10:31 AM documented in this encounter [facility] 06-23-2024 Note Patient Outreach (AM [facility] [place]) MARY JANE DE PAZ ([id number]) 1950 F Date Time Provider Department 06/23/24 [place] CHAN [facility] [place] visit today, we recorded the following information about you: Lory Chan RN 06/23/2024 1:22 PM Signed CDM ENROLLMENT Provider Action / FYI: Provider Seng, please have office follow up on the cost of her sensors for her blood sugar monitor. The delgadillo has gone up since they changed suppliers. Thank you concession worker, please assist in transportation to medical appointments and low cost social events in her area if possible. She is feeling isolated and they have a limited budget. Thank you Patient identified by name and date of . Discussed care with patient. Program Details Chronic Disease Management Status: Enrolled Effective Dates: 06/23/2024 - present Responsible Staff: Lory Chan RN Support and Services: Chronic Obstructive Pulmonary Disease (COPD), Hypertension, Chronic Kidney Disease (CKD), Diabetes Assessments CDM Assessment Medications: Do you have any questions about taking your medications or which medications you should be taking?: No Do you need any medication refills at this time, including any of the medication you might take only when needed?: No Social: It can be normal to feel anxious or down during a time like this. Would you like to talk to a mental health professional about how you have been feeling?: No Symptoms: Are you experiencing any new or worsening symptoms that you need to talk about today?: No ADLs Patients can perform the following activities without help: Dressing: Yes Bathing: Yes Doing laundry: Yes Climbing a flight of stairs: Yes Walking briskly: Yes Instrumental activities of daily living Do you drive a car?: Yes Do you need help from others to take care of things inside the house, for example: laundry, house cleaning, preparing meals?: No Do you need help from others with errands outside the house, for example: shopping for groceries or clothes, going medical appointments?: No Fall Risk One or more falls in the last year:: Yes Any near falls in the last year?: Yes Advised to use a cane or walker to get around safely:: No Feels unsteady when walking:: Yes Steadies self on furniture while walking at home:: Yes Worried about falling:: Yes Needs to push with hands when rising from a chair:: Yes Has trouble stepping up onto a curb:: Yes Often has to bridges to the toilet:: No Has lost some feeling in feet:: No Takes medicine that makes him/her feel lightheaded or more tired than usual:: No Takes medicine to sleep or improve mood:: No Fall risk factors:: Foot problems, Depression SDOH Financial Resource Strain How hard is it for you to pay for the very basics like food, housing, medical care, and heating?: Somewhat hard Housing Stability In the last 12 months, was there a time when you were not able to pay the mortgage or rent on time?: No In the past 12 months, how many times have you moved where you were living?: 0 At any time in the past 12 months, were you homeless or living in a retirement (including now)?: No Transportation Needs In the past 12 months, has lack of transportation kept you from medical appointments or from getting medications?: No In the past 12 months, has lack of transportation kept you from meetings, work, or from getting things needed for daily living?: No Food Insecurity Within the past 12 months, you worried that your food would run out before you got the money to buy more.: Never true Within the past 12 months, the food you bought just didn't last and you didn't have money to get more.: Never true Utilities In the past 12 months has the electric, gas, oil, or water [employer] threatened to shut off services in your home?: No Tobacco Use Patient reports that she quit smoking about 35 years ago. Her smoking use included cigarettes. She started smoking about 57 years ago. She has a 33 pack-year smoking history. She has been exposed to tobacco smoke. She has never used smokeless tobacco. Interventions The following were addressed during this visit: - Intake assessments completed: ADLs, Fall Risk, SDOH Disposition Based on payroll director, the following disposition is advised: No action needed Lory Chan RN June 23, 2024 10:31 AM Allergies As of Date: 06/23/2024 (No Known Allergies) Date Reviewed: 05/11/2024 Reviewed by: Baljinder Solis RN - Fully Assessed Prescriptions as of 06/23/2024 - lisinopril (ZESTRIL) 20 mg tablet Take 1 tablet by mouth once daily. - atorvastatin (LIPITOR) 20 mg tablet Take 1 tablet by mouth daily at bedtime. For cholesterol. - famotidine (PEPCID) 20 mg tablet Take 1 tablet by mouth two times a day as needed (GERD). - buPROPion XL (WELLBUTRIN XL) 300 mg 24 hr tablet Take 1 tablet by mouth onc (more content not included)... [facility] 05-18-2024 Telephone encounter Note Most recent OV notes faxed to [employer] for existing CGM order. Fax confirmation received. Baljinder Solis RN May 18, 2024 10:51 AM [facility] 05-18-2024 Miscellaneous Notes Most recent OV notes faxed to [employer] for existing CGM order. Fax confirmation received. Baljinder Solis RN May 18, 2024 10:51 AM documented in this encounter [facility] 05-11-2024 Note HNO ID: [id number] Author: BALJINDER SOLIS RN Service: ? Author Type: Registered Nurse Type: Progress Notes Filed: 05/11/2024 11:53 Note Text: [facility] 05-11-2024 History of Present illness Narrative Images from the original note were not included. Images from the original note were not included. OFFICE VISIT PROGRESS NOTE CC Mary Jane De Paz is a 73 year old female who presents today for blood sugar review hypoglycemia problem HPI PATIENT OF DR. LOVE, ENDOCRINE Diagnosed with 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 type 2, ~ 2000 Last endocrine OV 08/26/2023 Some elements copied from my note 08/26/2023 which have been updated where appropriate, and all reflect current medical decision making from date of this visit. HPI 08/26/2023 Not seen for several years in ENDO Had moved residences HX of full RnY gastric bypass Patient closely monitors both her weight and her nutritional intake Has been following with her PCP for her DM2 since her move. Recently had 'horrible abdominal pain' I threw up all night' Did not go to the ER until the next day when her symptoms worsened Found to have bowel obstruction (secondary to internal hernias and mesenteric adhesion) with subsequent surgery (07/26/2023) discharged to home 07/28/2023 Developed UTI 08/05/2023. Treated with macrobid Had surgery follow up for Laparoscopic reduction and closure of internal hernia.// Laparoscopic lysis of adhesions on August 12, 2023 - is cleared for regular activity barring lifting anything heavier than 10 pounds for several more weeks. Here today for DM follow up Having blood sugar lows overnight and sometimes during the day Sugars have been as low as 54, patient feels shaky and weak when this happens Had been using FREESTYLE JAUN 3 Patient asst for GLP1 through [employer] Has cont w amaryl 1 mg in addt to the GLP1 Very seldom checks BG, as was using a freestyle HPI 05/11/2024 Having sensor issues with FL 3 system Had several replacements over the last year CURRENT DM MEDS TRULICITY 0.75 weekly injection CURRENT THYROID SYNTHROID 100 mcg daily SMBG Type of Monitor: Other Frequency of Monitorin times a day BG Values: Hypoglycemia: yes at night, at times during the day, can feel low less than 70 Diet: Low carbohydrate and small portion Exercise: walking//housework DM REVIEW OF SYSTEMS Last Eye Exam : 01/2024 - normal and new glasses Last Podiatry Exam: none Cardiorespiratory: negative, denies chest pain, pressure Claudication: no Dyslipidemia: Yes, controlled on medication High Blood Pressure: Yes, controlled on medication CURRENT LABS NONE available for review, most recent DEC 2023. Latest Ref Rng 01/15/2024 Glucose 74 - 99 mg/dL 81 BUN 7 - 21 mg/dL 13 Creatinine 0.58 - 0.96 mg/dL 1.13 (H) Sodium 136 - 144 mmol/L 139 Potassium 3.7 - 5.1 mmol/L 3.9 Chloride 98 - 107 mmol/L 102 CO2 22 - 30 mmol/L 26 Anion Gap 8 - 15 mmol/L 11 eGFR >=60 mL/min/1.73m 52 (L) Total Cholesterol, Nonfasting <200 mg/dL 149 Triglycerides, Nonfasting <150 mg/dL 122 HDL Cholesterol, Nonfasting >39 mg/dL 61 LDL Cholesterol, Nonfasting <100 mg/dL 64 Non HDL Cholesterol, Nonfasting <130 mg/dL 88 VLDL Cholesterol, Nonfasting <30 mg/dL 24 Total Chol/HDL Ratio, Nonfasting <5.10 mg/dL 2.44 LDL/HDL Ratio, Nonfasting <2.54 mg/dL 1.05 Creatinine, Ur Random (UCRR) 20.0 - 300.0 mg/dL 144.6 Albumin, Urine Random mg/L 23.9 Albumin/Creat Ratio <30 mg/g 17 Hemoglobin A1C 4.3 - 5.6 % 6.2 (H) Estimated Average Glucose mg/dL 131 TSH 0.270 - 4.200 mIU/L 1.180 Latest Ref Rng 04/28/2023 07/28/2023 Glucose 74 - 99 mg/dL 116 (H) BUN 7 - 21 mg/dL 11 Creatinine 0.58 - 0.96 mg/dL 1.19 (H) Sodium 136 - 144 mmol/L 136 Potassium 3.7 - 5.1 mmol/L 4.8 Chloride 97 - 105 mmol/L 99 CO2 22 - 30 mmol/L 28 Anion Gap 9 - 18 mmol/L 9 Calcium 8.5 - 10.2 mg/dL 8.8 eGFR >=60 mL/min/1.73m 49 (L) Hemoglobin A1C 4.3 - 5.6 % 5.6 Estimated Average Glucose mg/dL 114 TSH 0.270 - 4.200 mIU/L 0.595 Free T4 0.9 - 1.7 ng/dL 1.4 Latest Ref Rng 04/28/2023 07/07/2023 Protein, Total 6.3 - 8.0 g/dL 6.9 Albumin 3.9 - 4.9 g/dL 3.9 Calcium 8.5 - 10.2 mg/dL 9.6 9.3 Bilirubin, Total 0.2 - 1.3 mg/dL 0.2 Alkaline Phosphatase 34 - 123 U/L 93 AST 13 - 35 U/L 32 ALT 7 - 38 U/L 23 Glucose 74 - 99 mg/dL 93 112 (H) BUN 7 - 21 mg/dL 12 11 Creatinine 0.58 - 0.96 mg/dL 1.10 (H) 1.08 (H) Sodium 136 - 144 mmol/L 140 139 Potassium 3.7 - 5.1 mmol/L 4.0 3.9 Chloride 97 - 105 mmol/L 102 101 CO2 22 - 30 mmol/L 28 28 Anion Gap 9 - 18 mmol/L 10 10 eGFR >=60 mL/min/1.73m 53 (L) 55 (L) Creatinine, Ur Random (UCRR) 20.0 - 300.0 mg/dL 69.8 Albumin, Urine Random mg/L 13.2 Albumin/Creat Ratio <30 mg/g 19 Hemoglobin A1C 4.3 - 5.6 % 5.6 Estimated Average Glucose mg/dL 114 TSH 0.270 - 4.200 mIU/L 0.595 Free T4 0.9 - 1.7 ng/dL 1.4 PAST MEDICAL HISTORY Diagnosis Date Allergic rhinitis Arthritis [facility] orthopedics, knee Asthma CKD (chronic kidney disease) 11/01/2018 Class 3 severe obesity with serious comorbidity and body mass index (BMI) of 40.0 to 44.9 in adult ([facility]) 08/19/2018 Coronary artery disease 10/28/[address] Salazar Fracture of right hip ([facility]) GERD (gastroesophageal reflux disease) History of transfusion HTN (hypertension) Hypothyroidism Mixed hyperlipidemia NIDDM (non-insulin dependent 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) MARIBEL on CPAP CPAP 9Cm Osteoarthritis of hip Renal lesion 01/15/2015 Suggest renal US every 1-2 years per PCP or nephro. Snoring Type 2 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 with hyperglycemia, with long-term current use of insulin ([facility]) 1999 PAST SURGICAL HISTORY Procedure Laterality Date ABDOMINAL SURGERY HX COLONOSCOPY 11/05/2016 Tammi- divertiuclosis, internal hemorrhoids, repeat in 5 years COLONOSCOPY 04/02/2022 repeat in 5 years due to reported prior history of polyps COSMETIC ASSESSMENT EGD 11/05/2016 Tammi- gastritis EGD 09/08/2018 /Gastritis EGD 04/02/2020 EGD 04/02/2022 EYE SURGERY HX Bilateral cataract extraction 2009's GASTRECTOMY,PART DISTAL;W/GASTRODUODENOSTO GASTRIC BYPASS HX 12/13/2018 Laparoscopic Samina-en-Y gastric bypass HIP SURGERY HX Screws replaced JOINT REPLACEMENT HX LAPAROSCOPY DIAGNOSTIC 07/26/2023 internal hernias and mesenteric adhesion OOPHORECTOMY PARTIAL OR TOTAL PAST SURGICAL HISTORY OF 2009 hemmroidectomy/sphincterectomy - Dr Nichole PAST SURGICAL HISTORY OF 2008 total left knee replacement PAST SURGICAL HISTORY OF 2003 partial right knee replacement PAST SURGICAL HISTORY OF 1990 total hysterectomy PAST SURGICAL HISTORY OF 2010 lDr Mansoor - [place] elbow fracture - traumatic. radial head replacement PAST SURGICAL HISTORY OF Bilateral 2016 hand surgery PAST SURGICAL HISTORY OF Left RELEASE CONTRACTURE DEQUERVAINS S INSERT PINN METAL NTRL HIP Right 11/17/2021 SKIN BIOPSY HX TOTAL HIP REPLACEMENT Right TOTAL KNEE REPLACEMENT Right 09/15/2022 TUBAL LIGATION HX VAGINAL HYSTERECTOMY 1979' FAMILY HISTORY Problem Relation Age of Onset other (polio) Mother Diabetes Father other (Squamous cell ca) Father other (renal cell ca) Father 1999 other (htn) Father other (Thyroid Cancer) Sister other (thyroid disease) Sister ca other (renal cell ca) Brother 2010 Obesity Paternal Grandmother Obesity Daughter Thyroid Daughter Diabetes Daughter Anesthesia Problems No Family History Social History Tobacco Use Smoking status: Former Current packs/day: 0.00 Average packs/day: 1.5 packs/day for 22.0 years (33.0 ttl pk-yrs) Types: Cigarettes Start date: 1967 Quit date: 1989 Years since quittin.1 Passive exposure: Past Smokeless tobacco: Never Vaping Use Vaping status: Never Used Substance Use Topics Alcohol use: Yes Comment: once or twice a month Drug use: No Current Outpatient Medications Medication Sig famotidine (PEPCID) 20 mg tablet Take 1 tablet by mouth two times a day as needed (GERD). lisinopril (ZESTRIL) 20 mg tablet Take 1 tablet by mouth once daily. Blood-Glucose Meter,Continuous (FREESTYLE JAUN 3 READER) [facility] Dispense one reader kit. E11.9 Blood-Glucose Sensor (FREESTYLE JAUN 3 SENSOR) guido 1 Each every 2 weeks. CHANGE sensor every 14 days. USE FOR CONTINUOUS GLUCOSE MONITORING. Dx: E11.9 RISK FOR HYPOGLYCEMIA. atorvastatin (LIPITOR) 20 mg tablet Take 1 tablet by mouth daily at bedtime. For cholesterol. traZODone (DESYREL) 100 mg tablet Take 2 tablets by mouth daily at bedtime. esomeprazole (NEXIUM) 40 mg capsule TAKE ONE CAPSULE BY MOUTH twice daily. FLUoxetine (PROZAC) 40 mg capsule Take 1 capsule by mouth two times a day. dulaglutide (TRULICITY) 0.75 mg/0.5 mL pen injector Inject 0.75 mg subcutaneously one time a week. E11.9. buPROPion XL (WELLBUTRIN XL) 300 mg 24 hr tablet Take 1 tablet by mouth once daily. levothyroxine (SYNTHROID) 100 mcg tablet Take 1 tablet by mouth once daily. Lancets Test blood sugar(s) 1 times daily and prn symptoms. Dx: Type 2 DM - Controlled E11.9 Insulin: No melatonin 10 mg tab Take 1 tablet by mouth at bedtime as needed for insomnia. Calcium Citrate 250 mg calcium tab Take 250 mg by mouth. ondansetron (ZOFRAN) 8 mg tablet Take 1 tablet by mouth every 8 hours as needed for nausea/vomiting. coffee xt/phosphatidyl serine (NEURIVA ORIGINAL ORAL) Take 2 tablets by mouth once daily. APPLE CIDER VINEGAR ORAL Take 1 capsule by mouth once daily. Combined with the tumeric MULTI-VITAMIN ORAL Take 1 tablet by mouth once daily. Takes bariatric multivitamin daily No current facility-administered medications for this visit. ALLERGIES Allergen Reactions Vicodin [Hydrocodon* Itching Pt not sure if she has an allergy but states she wants it documented. REVIEW OF SYSTEMS - POSITIVES IN BOLD GENERAL:No weight loss, malaise or fevers HEENT:Negative for frequent or significant headaches, No changes in hearing or vision, no nose bleeds or other nasal problems NECK:Negative for lumps, goiter, pain and significant neck swelling RESPIRATORY: Negative for cough, hemoptysis, wheezing, COPD, dyspnea or shortness of breath CARDIOVASCULAR: Negative for chest pain, leg swelling, hypertension, CHF or palpitations PHYSICAL EXAMINATION: BP 158/92 (BP Site: Right Arm, BP Position: Sitting, BP Cuff Size: Regular Adult) Pulse 73 Resp 17 Ht 157.5 cm (5' 2) Wt 59.9 kg (132 lb) SpO2 97% BMI 24.14 kg/m GENERAL: alert and appropriate, in no distress and well-hydrated, well nourished SKIN: no rash noted HEAD: normocephalic, no abnormality or lesion noted EYES: PERRL NECK: full ROM, no cervical LNs noted ACANTHOSIS: none noted EXTREMITIES: normal NEUROLOGIC: no obvious deficit ASSESSMENT: (E11.9) Controlled type 2 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, without long-term current use of insulin (HCC) (primary encounter diagnosis) Comment: CGM DOWNLOADED AND REVIEWED FOR OV RECOMMENDATIONS PER REVIEW FOLLOWS: Patient is compliant with CGM use and is benefiting from sensor use. EXCELLENT control per current, no changes to GLP1 dosing at this time, will cont w 0.75 mg weekly injection INCREASE FLUIDS to 1/2 body wgt in oz daily (water) F/U in office w labs OCT Recommended diet: Low carbohydrate and Low saturated fat, low simple sugar, high fiber diet Exercise minimally 150 minutes per week, increase as tolerated. Adequate hydration - 1/2 body wgt in oz of water daily, unless fluid restriction applies. I instructed the patient to monitor blood sugars 4 times per day If blood sugars are persistently high or low, to call our office. Patient to continue to follow up with her PCP and with other consultants regarding her other medical problems. Plan: COMPREHENSIVE METABOLIC PANEL, LIPID PANEL, NONFASTING, ALBUMIN/CREATININE RATIO, URINE, HEMOGLOBIN A1C Marimar Wilcox CNP documented in this encounter [facility] 05-11-2024 Note HNO ID: [id number] Author: MARIMAR WILCOX APRN.CNP Service: ? Author Type: Nurse Practitioner Type: Progress Notes Filed: 05/11/2024 11:53 Note Text: OFFICE VISIT PROGRESS NOTE CC Mary Jane De Paz is a 73 year old female who presents today for blood sugar review hypoglycemia problem HPI PATIENT OF DR. LOVE, ENDOCRINE Diagnosed with 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 type 2, ~ 2000 Last endocrine OV 08/26/2023 Some elements copied from my note 08/26/2023 which have been updated where appropriate, and all reflect current medical decision making from date of this visit. HPI 08/26/2023 Not seen for several years in ENDO Had moved residences HX of full RnY gastric bypass Patient closely monitors both her weight and her nutritional intake Has been following with her PCP for her DM2 since her move. Recently had 'horrible abdominal pain' I threw up all night' Did not go to the ER until the next day when her symptoms worsened Found to have bowel obstruction (secondary to internal hernias and mesenteric adhesion) with subsequent surgery (07/26/2023) discharged to home 07/28/2023 Developed UTI 08/05/2023. Treated with macrobid Had surgery follow up for Laparoscopic reduction and closure of internal hernia.// Laparoscopic lysis of adhesions on August 12, 2023 - is cleared for regular activity barring lifting anything heavier than 10 pounds for several more weeks. Here today for DM follow up Having blood sugar lows overnight and sometimes during the day Sugars have been as low as 54, patient feels shaky and weak when this happens Had been using FREESTYLE JAUN 3 Patient asst for GLP1 through [employer] Has cont w amaryl 1 mg in addt to the GLP1 Very seldom checks BG, as was using a freestyle HPI 05/11/2024 Having sensor issues with FL 3 system Had several replacements over the last year CURRENT DM MEDS TRULICITY 0.75 weekly injection CURRENT THYROID SYNTHROID 100 mcg daily SMBG Type of Monitor: Other Frequency of Monitorin times a day BG Values: Hypoglycemia: yes at night, at times during the day, can feel low less than 70 Diet: Low carbohydrate and small portion Exercise: walking//housework DM REVIEW OF SYSTEMS Last Eye Exam : 01/2024 - normal and new glasses Last Podiatry Exam: none Cardiorespiratory: negative, denies chest pain, pressure Claudication: no Dyslipidemia: Yes, controlled on medication High Blood Pressure: Yes, controlled on medication CURRENT LABS NONE available for review, most recent DEC 2023. Latest Ref Rng 01/15/2024 Glucose 74 - 99 mg/dL 81 BUN 7 - 21 mg/dL 13 Creatinine 0.58 - 0.96 mg/dL 1.13 (H) Sodium 136 - 144 mmol/L 139 Potassium 3.7 - 5.1 mmol/L 3.9 Chloride 98 - 107 mmol/L 102 CO2 22 - 30 mmol/L 26 Anion Gap 8 - 15 mmol/L 11 eGFR >=60 mL/min/1.73m? 52 (L) Total Cholesterol, Nonfasting <200 mg/dL 149 Triglycerides, Nonfasting <150 mg/dL 122 HDL Cholesterol, Nonfasting >39 mg/dL 61 LDL Cholesterol, Nonfasting <100 mg/dL 64 Non HDL Cholesterol, Nonfasting <130 mg/dL 88 VLDL Cholesterol, Nonfasting <30 mg/dL 24 Total Chol/HDL Ratio, Nonfasting <5.10 mg/dL 2.44 LDL/HDL Ratio, Nonfasting <2.54 mg/dL 1.05 Creatinine, Ur Random (UCRR) 20.0 - 300.0 mg/dL 144.6 Albumin, Urine Random mg/L 23.9 Albumin/Creat Ratio <30 mg/g 17 Hemoglobin A1C 4.3 - 5.6 % 6.2 (H) Estimated Average Glucose mg/dL 131 TSH 0.270 - 4.200 mIU/L 1.180 Latest Ref Rng 04/28/2023 07/28/2023 Glucose 74 - 99 mg/dL 116 (H) BUN 7 - 21 mg/dL 11 Creatinine 0.58 - 0.96 mg/dL 1.19 (H) Sodium 136 - 144 mmol/L 136 Potassium 3.7 - 5.1 mmol/L 4.8 Chloride 97 - 105 mmol/L 99 CO2 22 - 30 mmol/L 28 Anion Gap 9 - 18 mmol/L 9 Calcium 8.5 - 10.2 mg/dL 8.8 eGFR >=60 mL/min/1.73m? 49 (L) Hemoglobin A1C 4.3 - 5.6 % 5.6 Estimated Average Glucose mg/dL 114 TSH 0.270 - 4.200 mIU/L 0.595 Free T4 0.9 - 1.7 ng/dL 1.4 Latest Ref Rng 04/28/2023 07/07/2023 Protein, Total 6.3 - 8.0 g/dL 6.9 Albumin 3.9 - 4.9 g/dL 3.9 Calcium 8.5 - 10.2 mg/dL 9.6 9.3 Bilirubin, Total 0.2 - 1.3 mg/dL 0.2 Alkaline Phosphatase 34 - 123 U/L 93 AST 13 - 35 U/L 32 ALT 7 - 38 U/L 23 Glucose 74 - 99 mg/dL 93 112 (H) BUN 7 - 21 mg/dL 12 11 Creatinine 0.58 - 0.96 mg/dL 1.10 (H) 1.08 (H) Sodium 136 - 144 mmol/L 140 139 Potassium 3.7 - 5.1 mmol/L 4.0 3.9 Chloride 97 - 105 mmol/L 102 101 CO2 22 - 30 mmol/L 28 28 Anion Gap 9 - 18 mmol/L 10 10 eGFR >=60 mL/min/1.73m? 53 (L) 55 (L) Creatinine, Ur Random (UCRR) 20.0 - 300.0 mg/dL 69.8 Albumin, Urine Random mg/L 13.2 Albumin/Creat Ratio <30 mg/g 19 Hemoglobin A1C 4.3 - 5.6 % 5.6 Estimated Average Glucose mg/dL 114 TSH 0.270 - 4.200 mIU/L 0.595 Free T4 0.9 - 1.7 ng/dL 1.4 PAST MEDICAL HISTORY Diagnosis Date Allergic rhinitis Arthritis [facility], knee Asthma CKD (chronic kidney disease) 11/01/2018 Class 3 severe obesity with serious comorbidity and body mass index (BMI) of 40.0 to 44.9 in adult (HCC (more content not included)... [facility] 04-14-2024 Note Addended by: MARIMAR WILCOX on: 04/14/2024 05:24 PM Modules accepted: Orders [facility] 04-14-2024 Telephone encounter Note Patient's request for medication is as follows Requested Prescriptions Signed Prescriptions Disp Refills Blood-Glucose Meter,Continuous (FREESTYLE JAUN 3 READER) misc 1 Each 0 Sig: Dispense one reader kit. E11.9 Authorizing Provider: MARIMAR WILCOX Blood-Glucose Sensor (FREESTYLE JAUN 3 SENSOR) guido 2 Each 3 Si Each every 2 weeks. CHANGE sensor every 14 days. USE FOR CONTINUOUS GLUCOSE MONITORING. Dx: E11.9 RISK FOR HYPOGLYCEMIA. Authorizing Provider: MARIMAR WILCOX Order entered - please phone pharmacy and notify patient. Marimar Wilcox APRN.CD REACTOR OPERATOR [facility] 04-14-2024 Miscellaneous Notes Addended by: MARIMAR WILCOX on: 04/14/2024 05:24 PM Modules accepted: Orders Patient's request for medication is as follows Requested Prescriptions Signed Prescriptions Disp Refills Blood-Glucose Meter,Continuous (FREESTYLE JAUN 3 READER) misc 1 Each 0 Sig: Dispense one reader kit. E11.9 Authorizing Provider: MARIMAR WILCOX Blood-Glucose Sensor (FREESTYLE JAUN 3 SENSOR) guido 2 Each 3 Si Each every 2 weeks. CHANGE sensor every 14 days. USE FOR CONTINUOUS GLUCOSE MONITORING. Dx: E11.9 RISK FOR HYPOGLYCEMIA. Authorizing Provider: MARIMAR WILCOX Order entered - please phone pharmacy and notify patient. Marimar Wilcox APRN.CD REACTOR OPERATOR Addended by: BALJINDER SOLIS on: 04/14/2024 03:38 PM Modules accepted: Orders Rxs Freestyle Jaun 3 reader and sensors pended to [facility] and sent to Marimar Wilcox CNP. Please review pended Rxs before sending to DME. Baljinder Solis RN April 14, 2024 3:38 PM Endocrinology & Metabolism Social Work Progress Note Provider Action / FYI N/A Mary Jane De Paz [id number] Type of Contact: telephone Endocrine ELEVATOR TENDER Referral Reason: Medication Cost Concerns Contact Made?: YES- Patient could not talk at this moment, unable to verify information.Will follow up and attempt to reach patient. Note/Intervention: ELEVATOR TENDER called patient 20 minutes after initial phone call per patient request, left VM. Original referral placed for Jaun Sensors, patient believes she is getting them for free from a company, she knows at one point it was [employer], however they were charging her. Previous OV states they were sent to pharmacy. Once pt calls back ELEVATOR TENDER will attempt to get more information. ELEVATOR TENDER did call [facility] and DME company to see if they were servicing the patient. [facility] has a contract with [facility] Medicare through their diabetes management program for CGMs to be covered at 100%. ELEVATOR TENDER called them and they have not serviced this patient since 2022. ELEVATOR TENDER also contacted [facility] who reports patient is not received CGMs through them. [facility] referral placed: n/a Signature: DUC Tomlinson Patient Name: Mary Jane De Paz Date: 04/14/2024 Time: 1:46 PM Pager/Contact #: [phone] During this patient contact I spent approximately 20 minutes in reviewing the patient's chart and counseling regarding community resources and coordinating care. documented in this encounter [facility] 04-14-2024 Note Addended by: BALJINDER SOLIS on: 04/14/2024 03:38 PM Modules accepted: Orders [facility] 04-14-2024 Telephone encounter Note Rxs Freestyle Jaun 3 reader and sensors [facility] and sent to Marimar Wilcox CNP. Please review pended Rxs before sending to DME. Baljinder Solis RN April 14, 2024 3:38 PM [facility] 04-14-2024 Telephone encounter Note Endocrinology & Metabolism Social Work Progress Note Provider Action / FYI N/A Mary Jane De Paz [id number] Type of Contact: telephone Endocrine ELEVATOR TENDER Referral Reason: Medication Cost Concerns Contact Made?: YES- Patient could not talk at this moment, unable to verify information.Will follow up and attempt to reach patient. Note/Intervention: ELEVATOR TENDER called patient 20 minutes after initial phone call per patient request, left VM. Original referral placed for [employer], patient believes she is getting them for free from a company, she knows at one point it was [employer], however they were charging her. Previous OV states they were sent to pharmacy. Once pt calls back ELEVATOR TENDER will attempt to get more information. ELEVATOR TENDER did call [facility] and DME company to see if they were servicing the patient. [facility] has a contract with [facility] Medicare through their diabetes management program for CGMs to be covered at 100%. ELEVATOR TENDER called them and they have not serviced this patient since 2022. ELEVATOR TENDER also contacted [facility] who reports patient is not received CGMs through them. [facility] referral placed: n/a Signature: DUC Tomlinson Patient Name: Mary Jane De Paz Date: 04/14/2024 Time: 1:46 PM Pager/Contact #: [phone] During this patient contact I spent approximately 20 minutes in reviewing the patient's chart and counseling regarding community resources and coordinating care. [facility] Work Phone: 04-14-2024 Instructions Juan Jose Keys DO - 04/14/2024 1:16 PM EST Post injection Instructions: You received a steroid injection today. Please keep any physical therapy appointments and schedule a follow-up appointment as recommended. Benefits: Injections help with PAIN and allow you to better participate in daily activities and exercise/therapy. Injections do NOT cause healing of arthritis or injuries. As pain is better controlled, this will reduce the need to use anti-inflammatories by mouth and/or if you are not able to take an anti-inflammatory due to other reasons (you have been advised to avoid or they are contra-indicated). Activity recommendations: For the first 24 hours after the injection, keep the area clean and dry. It is okay to shower but no soaking in a tub or swimming. Schedule the injection when you have 1-2 days to rest afterwards. Ideally, no strenuous or vigorous activities (such as running or heavy lifting) for 3 days after the injection. Therefore, plan ahead to have any exercise or errands completed before the injection so you can relax afterwards. After the first week, you can gradually resume normal activities. If you do experience a significant decrease in pain, be careful not to do too much too soon. The borges is gradual resumption of activities. What to expect: The injection contains lidocaine (which numbs the joint) and a steroid (which decreases inflammation). You may have pain relief within hours (sometimes immediate) due to the lidocaine. The steroid can take a few days, up to a few weeks, to reach the full effect, so please be patient! The numbing medicine you received will wear off in 4-6 hours. It is also possible to have a slight increase in symptoms over the first few days. In order to prevent that, please take some anti-inflammatory (prescription strength, or Ibuprofen, or naprosyn) for the next three to five days. You may also need to ice the injected area at LEAST three times a day as instructed below. How long will an injection last? The length of response to an injection is variable. Patients have experienced relief anywhere from a few weeks to a few years. The injection will decrease the inflammation and the pain will return if/when the inflammation returns. Side effects: - There is a risk of bleeding and infection with any injection (including vaccinations). Precautions are taken to reduce this risk greatly. - If you have diabetes, the steroid component may raise your blood sugars significantly. Your doctor may postpone or recommend other therapies based on your blood sugar control. - Allergic reactions to the lidocaine or steroid can occur. If you have a known allergy to lidocaine or any steroid, please notify your doctor. PLEASE CALL YOUR DOCTOR OR PROCEED TO EMERGENCY ROOM IF: - You develop fevers/chills, redness or warmth at area of injection - You develop rash, difficulty breathing - You have significant worsening of your pain that is not controlled with the above suggestions ICING INSTRUCTIONS For an ice bag, apply for 15-20 minutes at least three times a day, more if needed. Ice in a Ziplog/plastic bag or even a bag of frozen peas/corn will work (and is reusable). You can also use Yael dish liquid frozen in a ziploc bag. Use a large bottle, dump it in a gallon ziploc bag, zip that and place it inside another ziploc bag. Place in freezer and let it harden to a Play-mehreen like consistency. Mold it around the part to be iced and use an lor wrap or towel to keep in place. Refreeze and use when needed. For ice massage, fill an empty paper or styrofoam cup nearly full with water, place them in the freezer and let them freeze completely. Tear the top off of the cup leaving the bottom part of the cup intact so you can hold onto it. Rub the ice over the affected area for about [address] to do this is in the shower or the bath (with affected area out of the water) for the contrast of hot water, but it can be done outside of the shower. MEDICATION INSTRUCTIONS Tylenol (acetaminophen), three 325mg pills, or two 500mg pills, up to four times a day, for 5-10 days, then as needed thereafter. Do not take this if you have liver problems or have been advised to not take Tylenol in the past. Be careful when combining with other pain relievers as several pain relievers have acetaminophen in them. Should you have any questions, you may want to ask your pharmacist or give our office a call. documented in this encounter [facility] 04-14-2024 History of Present illness Narrative Associated Order(s): Medium Joint Arthro/Inj: R ulnocarpal Post-Procedure Diagnose(s): Pain of ulnar side of wrist Images from the original note were not included. CHIEF COMPLAINT: Patient presents with: Right Wrist - Wrist Pain PAIN EVALUATION 04/07/2024 1216 Pain Level: 7 Pain Location: Wrist-Right Description: Burning;Tenderness;Throbbing Duration Amount of Time: 15 Duration Units: Minutes Frequency: Continuous Intervention/Comfort measure: Splinting SUBJECTIVE: Mary Jane De Paz is a 74 year old female here for consideration of USG R ulnocarpal CSI, last had in 09/2023 with me. She has had now 3 injections into the ulnar aspect of her wrist - 2 landmark-guided, last one with me USG. Last injection lasted 5 months with complete pain resolution. Cannot have MRI due to spine stimulator. Has tried Tylenol, bracing, topical medications. Last Hgba1c: Hemoglobin A1C (%) Date Value 01/15/2024 6.2 04/28/2023 5.6 02/27/2021 6.6 10/19/2020 7.5 Past medical, surgical, social and family history were reviewed. Allergies and current medications reviewed. REVIEW OF SYSTEMS: GENERAL: no recent illness, unexplained weight loss or weight gain NEUROLOGIC: no numbness, tingling, or weakness except as mentioned in HPI, no known neuro problems or deficits SKIN: No rash or new skin changes and no chronic skin problems MSK: as mentioned in HPI PHYSICAL EXAMINATION: GENERAL APPEARANCE: Well appearing, in no acute distress, alert and oriented x3. R WRIST Swelling of the ulnar aspect of the right wrist TTP over the ulnocarpal joint, primarily at the TFCC No significant tenderness at the ECU, no subluxation Limited wrist extension, flexion, and ulnar movements 4+/5 strength in ulnar deviation + discomfort with TFCC testing IMAGING: Imaging has been recommended and ordered at today's visit. Imaging has not yet been performed. Patient will be contacted regarding imaging results. CLINICAL IMPRESSION: (M25.539) Pain of ulnar side of wrist (primary encounter diagnosis) Seen by Dr. Kerr and team previously, underwent 2 landmark-guided ulnocarpal injections without significant relief, last done by me with USG with 5 months of relief. + ulnar variance, pain over TFCC and ulnar fossa. PLAN: Today, in detail, through a thorough evaluation, we discussed possible etiologies of pain and plan for further diagnostic and therapeutic interventions. We discussed strategies for decreasing pain and improving strength, stability and motion. Specifically, we discussed symptom monitoring, activity modification, oral medications, topical medications, bracing, and surgical intervention as well as diagnostic/therapeutic ultrasound-guided injections. Patient's questions were answered in detailed. Patient verbalizes understanding and agrees with the treatment plan as discussed. Discussed limitations of repeat CSI in this area as we want to avoid tendon rupture. If pain recurs, names of 2 Hand Surgeons to review to see if any surgical intervention is warranted and/or would provide longer term relief of symptoms. Plan for repeat XR today upon completion of visit. In addition to the comprehensive evaluation as outlined above and as a separate element to the visit today, we have made the determination to proceed with an injection to aid in the treatment of the patient's condition. We discussed risks, benefits, alternatives and expected outcomes of this injection in detail and the patient agreed to proceed. The procedure was performed as detailed below. Medium Joint Arthro/Inj: R ulnocarpal Pain Evaluation: Pain Level: 7 Pain Location: Wrist-Right Description: Burning; Tenderness; Throbbing Duration Amount of Time: 15 Duration Units: Minutes Frequency: Continuous Intervention/Comfort measure: Splinting Informed Consent Consent Obtained: Verbal [place] Protocol A moment to CARE was completed. SIGN IN Personnel directly involved with the procedure wore the appropriate PPE. Patient/Surrogate Stated/Verified: Date of , Patient name, Relevant allergies and Intended procedure TIME OUT Relevant labs, photos, and/or imaging studies have been reviewed. Intended patient and procedure match the source document(s). Correct side/site marked and visible. Medications required for procedure verified.04/14/2024 1:33 PM The procedure site was prepped in the usual sterile fashion. Details:Musculoskeletal ultrasound was utilized to successfully localize placement of the injection needle at the appropriate site. Ultrasound images demonstrating local vasculature and demonstrating injection of solution were saved. Medications: 6 mg betamethasone acetate-betamethasone sodium phosphate 6 mg/mL Anesthetics: 0.5 mL lidocaine (PF) 10 mg/mL (1 %) Outcome: tolerated well, no immediate complications Post-injection instructions were reviewed with the patient and the patient voiced understanding of these instructions. SIGN OUT Post-procedure follow-up management communicated and Plan of Care Visit completed when applicable Follow-up: as needed Written instructions (see patient instructions) and verbal health teaching given to patient, patient verbalizes understanding and agrees with treatment plan. Electronically Signed: Juan Jose Keys DO Sports Medicine Physician documented in this encounter [facility] 04-14-2024 Note HNO ID: [id number] Author: JUAN JOSE KEYS DO Service: ? Author Type: Physician Type: Progress Notes Filed: 04/14/2024 13:34 Note Text: CHIEF COMPLAINT: Patient presents with: Right Wrist - Wrist Pain PAIN EVALUATION 04/07/2024 1216 Pain Level: 7 Pain Location: Wrist-Right Description: Burning;Tenderness;Throbbing Duration Amount of Time: 15 Duration Units: Minutes Frequency: Continuous Intervention/Comfort measure: Splinting SUBJECTIVE: Mary Jane De Paz is a 74 year old female here for consideration of USG R ulnocarpal CSI, last had in 09/2023 with me. She has had now 3 injections into the ulnar aspect of her wrist - 2 landmark-guided, last one with me USG. Last injection lasted 5 months with complete pain resolution. Cannot have MRI due to spine stimulator. Has tried Tylenol, bracing, topical medications. Last Hgba1c: Hemoglobin A1C (%) Date Value 01/15/2024 6.2 04/28/2023 5.6 02/27/2021 6.6 10/19/2020 7.5 Past medical, surgical, social and family history were reviewed. Allergies and current medications reviewed. REVIEW OF SYSTEMS: GENERAL: no recent illness, unexplained weight loss or weight gain NEUROLOGIC: no numbness, tingling, or weakness except as mentioned in HPI, no known neuro problems or deficits SKIN: No rash or new skin changes and no chronic skin problems MSK: as mentioned in HPI PHYSICAL EXAMINATION: GENERAL APPEARANCE: Well appearing, in no acute distress, alert and oriented x3. R WRIST Swelling of the ulnar aspect of the right wrist TTP over the ulnocarpal joint, primarily at the TFCC No significant tenderness at the ECU, no subluxation Limited wrist extension, flexion, and ulnar movements 4+/5 strength in ulnar deviation + discomfort with TFCC testing IMAGING: Imaging has been recommended and ordered at today's visit. Imaging has not yet been performed. Patient will be contacted regarding imaging results. CLINICAL IMPRESSION: (M25.539) Pain of ulnar side of wrist (primary encounter diagnosis) Seen by Dr. Kerr and team previously, underwent 2 landmark-guided ulnocarpal injections without significant relief, last done by me with USG with 5 months of relief. + ulnar variance, pain over TFCC and ulnar fossa. PLAN: Today, in detail, through a thorough evaluation, we discussed possible etiologies of pain and plan for further diagnostic and therapeutic interventions. We discussed strategies for decreasing pain and improving strength, stability and motion. Specifically, we discussed symptom monitoring, activity modification, oral medications, topical medications, bracing, and surgical intervention as well as diagnostic/therapeutic ultrasound-guided injections. Patient's questions were answered in detailed. Patient verbalizes understanding and agrees with the treatment plan as discussed. Discussed limitations of repeat CSI in this area as we want to avoid tendon rupture. If pain recurs, names of 2 Hand Surgeons to review to see if any surgical intervention is warranted and/or would provide longer term relief of symptoms. Plan for repeat XR today upon completion of visit. In addition to the comprehensive evaluation as outlined above and as a separate element to the visit today, we have made the determination to proceed with an injection to aid in the treatment of the patient's condition. We discussed risks, benefits, alternatives and expected outcomes of this injection in detail and the patient agreed to proceed. The procedure was performed as detailed below. Medium Joint Arthro/Inj: R ulnocarpal Pain Evaluation: Pain Level: 7 Pain Location: Wrist-Right Description: Burning; Tenderness; Throbbing Duration Amount of Time: 15 Duration Units: Minutes Frequency: Continuous Intervention/Comfort measure: Splinting Informed Consent Consent Obtained: Verbal [place] Protocol A moment to CARE was completed. SIGN IN Personnel directly involved with the procedure wore the appropriate PPE. Patient/Surrogate Stated/Verified: Date of , Patient name, Relevant allergies and Intended procedure TIME OUT Relevant labs, photos, and/or imaging studies have been reviewed. Intended patient and procedure match the source document(s). Correct side/site marked and visible. Medications required for procedure verified.04/14/2024 1:33 PM The procedure site was prepped in the usual sterile fashion. Details:Musculoskeletal ultrasound was utilized to successfully localize placement of the injection needle at the appropriate site. Ultrasound images demonstrating local vasculature and demonstrating injection of solution were saved. Medications: 6 mg betamethasone acetate-betamethasone sodium phosphate 6 mg/mL Anesthetics: 0.5 mL lidocaine (PF) 10 mg/mL (1 %) Outcome: tolerated well, no immediate complications Post-injection instructions were reviewed with the patient and the patient voiced understanding of (more content not included)... [facility] 03-30-2024 Note HNO ID: [id number] Author: CHANTELL DAVIS RN Service: ? Author Type: Registered Nurse Type: Progress Notes Filed: 04/11/2024 08:31 Note Text: Summary: Chart review completed for the HEDIS measure: Osteoporosis Management in Women Who Had a Fracture (OMW) [facility] LIOR RN Patient identified by name and date of . FYI: Reason for review or outreach: Chart Review Chart Review Details: Lior Priority Chart review completed for the HEDIS measure: Osteoporosis Management in Women Who Had a Fracture (OMW) Summary / Findings: No order for Dexa Scan noted. No exclusionary criteria clearly identified REQUEST: We are bringing this patient to your attention to request your assessment and consideration for a New bone density order (BMD) and/or a prescription for a medication to treat or prevent osteoporosis, if appropriate. BMD would need to be scheduled on or before 06/10/24 Last BMD at [facility], however patient now resides in [place], [place], and will likely wish to schedule closer to home) The HEDIS Measure, Osteoporosis Management in Women Who Had a Fracture (OMW) recommends assessing female patients 67 to 85 years of age who suffered a fracture and had either a bone mineral density (BMD) test or prescription for a drug to treat osteoporosis in the six months after the fracture. Patient Attributed To: QAE Payer: Micheal HANEY Summary / Findings: As per above Fracture Date: 12/13/23 Also note: Epic note 02/22 per patient, additional fracture of two lower bones in leg Last BMD Result: 05/22/12 indicated osteopenia Active Prescription to treat or prevent osteoporosis? NO (12 months prior to the fracture date up to 6 months after the fracture date) Palliative care or Hospice in last measurement year? NO Action Taken: Encounter routed to provider Contact made with patient: No, Chart review only. Chantell Davis RN [facility] 03-30-2024 Note Patient Outreach (NE TNAV) MARY JANE DE PAZ ([id number]) 1950 F CPRE Date Time Provider Department 03/30/24 CHANTELL DAVIS During your visit today, we recorded the following information about you: Chantell Davis RN 04/11/2024 8:31 AM Signed ACM LIOR RN Patient identified by name and date of . FYI: Reason for review or outreach: Chart Review Chart Review Details: Lior Priority Chart review completed for the HEDIS measure: Osteoporosis Management in Women Who Had a Fracture (OMW) Summary / Findings: No order for Dexa Scan noted. No exclusionary criteria clearly identified REQUEST: We are bringing this patient to your attention to request your assessment and consideration for a New bone density order (BMD) and/or a prescription for a medication to treat or prevent osteoporosis, if appropriate. BMD would need to be scheduled on or before 06/10/24 Last BMD at [facility], however patient now resides in [place], [place], and will likely wish to schedule closer to home) The HEDIS Measure, Osteoporosis Management in Women Who Had a Fracture (OMW) recommends assessing female patients 67 to 85 years of age who suffered a fracture and had either a bone mineral density (BMD) test or prescription for a drug to treat osteoporosis in the six months after the fracture. Patient Attributed To: QAE Payer: Micheal HANEY Summary / Findings: As per above Fracture Date: 12/13/23 Also note: Epic note 02/22 per patient, additional fracture of two lower bones in leg Last BMD Result: 05/22/12 indicated osteopenia Active Prescription to treat or prevent osteoporosis? NO (12 months prior to the fracture date up to 6 months after the fracture date) Palliative care or Hospice in last measurement year? NO Action Taken: Encounter routed to provider Contact made with patient: No, Chart review only. Chantell Davis RN Allergies As of Date: 03/30/2024 Noted Allergy Reaction VICODIN (HYDROCODONE-ACETAMINOPHE*09/29/19 10 9 - Itching Comments: Pt not sure if she has an allergy but states she wants it documented. Date Reviewed: 03/29/2024 Reviewed by: Violet Tomlinson MA - Fully Assessed Reason for Visit: ACTasia LIOR RN [[id number]] Cmt: Chart review completed for the HEDIS measure: Osteoporosis Management in Women Who Had a Fracture (OMW) Prescriptions as of 04/11/2024 - atorvastatin (LIPITOR) 20 mg tablet Take 1 tablet by mouth daily at bedtime. For cholesterol. - traZODone (DESYREL) 100 mg tablet Take 2 tablets by mouth daily at bedtime. - esomeprazole (NEXIUM) 40 mg capsule TAKE ONE CAPSULE BY MOUTH twice daily. - FLUoxetine (PROZAC) 40 mg capsule Take 1 capsule by mouth two times a day. - dulaglutide (TRULICITY) 0.75 mg/0.5 mL pen injector Inject 0.75 mg subcutaneously one time a week. E11.9. - buPROPion XL (WELLBUTRIN XL) 300 mg 24 hr tablet Take 1 tablet by mouth once daily. - levothyroxine (SYNTHROID) 100 mcg tablet Take 1 tablet by mouth once daily. - famotidine (PEPCID) 20 mg tablet Take 1 tablet by mouth two times a day as needed (GERD). - lisinopril (ZESTRIL) 20 mg tablet Take 1 tablet by mouth once daily. - Blood-Glucose Meter,Continuous (FREESTYLE JAUN 3 READER) [facility] Dispense one reader kit. E11.9 - Blood-Glucose Sensor (FREESTYLE JAUN 3 SENSOR) guido CHANGE sensor every 14 days. USE FOR CONTINUOUS GLUCOSE MONITORING. E11.9 RISK FOR HYPOGLYCEMIA. - Lancets Test blood sugar(s) 1 times daily and prn symptoms. Dx: Type 2 DM - Controlled E11.9 Insulin: No - melatonin 10 mg tab Take 1 tablet by mouth at bedtime as needed for insomnia. - Calcium Citrate 250 mg calcium tab Take 250 mg by mouth. - ondansetron (ZOFRAN) 8 mg tablet Take 1 tablet by mouth every 8 hours as needed for nausea/vomiting. - coffee xt/phosphatidyl serine (NEURIVA ORIGINAL ORAL) Take 2 tablets by mouth once daily. - APPLE CIDER VINEGAR ORAL Take 1 capsule by mouth once daily. Combined with the tumeric - lactose-reduced food (ADULT NUTRITIONAL SUPPLEMENT ORAL) (Discontinued) Take 1 capsule by mouth once daily. Tumeric - 2000mg capsule - MULTI-VITAMIN ORAL Take 1 tablet by mouth once daily. 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 [facility] 03-29-2024 Note HNO ID: [id number] Author: DELFIN KERR MD Service: ? Author Type: Physician Type: Progress Notes Filed: 04/06/2024 20:05 Note Text: Delfin Kerr MD Department of Orthopaedics Orthopaedics [address] [place] [id number] Dept: [phone] March 29, 2024 CHIEF COMPLAINT: Established Patient and Pain of the Right Shoulder HPI Patient here today for right shoulder pain x 6 months. States that she fell recently and landed on the right shoulder, but was having pain before the fall happened. She is right hand dominant. ASSESSMENT: M25.819 Shoulder impingement (primary encounter diagnosis) M25.511, G89.29 Chronic right shoulder pain PLAN: She would like to try a cortisone injection. Will continue to monitor patient for Shoulder impingement (primary encounter diagnosis) Chronic right shoulder pain, patient to schedule visit as per follow up discussed. OBJECTIVE: Ms. Mary Jane De Paz is a pleasant 74 year old in no apparent distress. Gen:There were no vitals taken for this visit. nl development, non obese, no deformities ENT: Normocephalic, normal hearing, moist mucosa CV: Pulses:Radial= 2+ and symmetric, capillary refill < 2 secs, no peripheral edema/varicosities Skin: no rash, bruising or lesions. Good turgor. Psych: cooperative and appropriate, alert and oriented x 3, good mood and affect. Musculoskeletal: Supple range of motion of the cervical spine without pain. Spurling signs are negative. No atrophy of the deltoid and shoulder musculature. Right shoulder is nontender to palpation over the SC joint, clavicle and AC joint. no tenderness to palpation over the posterior shoulder, positive tenderness over the anterior lateral corner of the shoulder and greater tuberosity. Non-tender at the bicipital groove and coracoid. Active range of motion is 150 of forward elevation, 60 external rotation, and internal rotation to the lumbar spine. Passive range of motion is symmetrical,, respectively. No laxity with anterior and posterior stress. positive Neer and Mullins impingement signs. 4+/5 strength with supraspinatus, infraspinatus and subscapularis. Sensation is intact in the axillary, radial, median and ulnar nerve distribution Large Joint Arthro/Inj: R subacromial bursa Informed Consent Consent Obtained: Verbal [place] Protocol A moment to CARE was completed. SIGN IN Sign in communication not applicable due to emergent procedure. Personnel directly involved with the procedure wore the appropriate PPE. Special Equipment: N/A Patient/Surrogate Stated/Verified: Patient name, Date of , Relevant allergies and Intended procedure TIME OUT Relevant labs, photos, and/or imaging studies have been reviewed. Intended patient and procedure match the source document(s). Consent documented and matches the intended procedure. Correct side/site marked and visible. Medications required for procedure verified. No fire risk assessment and interventions applicable. No implant(s) inserted.03/29/2024 11:34 AM The procedure site was prepped in the usual sterile fashion. Site: R subacromial bursa Medications: 6 mg betamethasone acetate-betamethasone sodium phosphate 6 mg/mL Anesthetics: 5 mL lidocaine (PF) 10 mg/mL (1 %) Outcome: Tolerated well, no immediate complications Post-injection instructions were reviewed with the patient and the patient voiced understanding of these instructions. SIGN OUT No specimen collected. No instruments, equipment or retained foreign bodies applicable. Post-procedure follow-up management communicated and Plan of Care Visit completed when applicable Imaging: Impression IMPRESSION: Findings as discussed in results portion of report Senior Laboratory Technician: SEFERINO Transcribe Date/Time: Mar 29 2024 4:16P Dictated by : DESHAUN WHITAKER DO This examination was interpreted and the report reviewed and electronically signed by: DESHAUN WHITAKER DO on Mar 29 2024 4:17PM EST Results-Findings * * *Final Report* * * DATE OF EXAM: Mar 29 2024 11:08AM FINA [id number] - XR SHLDR >/=3V AP/REGINA AP/OTHR RT / PROCEDURE REASON: M25.511-Right shoulder pain, unspecified chronicity * * * * Physician Interpretation * * * * EXAM(s): XR SHLDR >/=3V AP/REGINA AP/OTHR RT..... HISTORY: 74 years old Clinical information: Right shoulder pain, unspecified chronicity Patient states that she has been having right side shoulder pain for some time. TECHNIQUE: Images: XR SHLDR >/=3V AP/REGINA AP/OTHR RT Comparison: None. RESULT: Moderate bony demineralization. Moderate degenerative changes in the spine Findings: Moderate narrowing of the glenohumeral joint. AC joint is unremarkable. Acromiohumeral interval is preserved. No fractures or dislocations are seen. Supporting Subjective Information Below: Past Surgical History: PAST SURGICAL HISTORY Procedure Laterality Date ABDOMINAL SURGERY HX COLONOSCOPY 0 (more content not included)... [facility] 03-29-2024 History of Present illness Narrative Associated Order(s): Large Joint Arthro/Inj: R subacromial bursa Post-Procedure Diagnose(s): Shoulder impingement; Chronic right shoulder pain Delfin Kerr MD Department of Orthopaedics Orthopaedics [address] [place] [address] Dept: [phone] March 29, 2024 CHIEF COMPLAINT: Established Patient and Pain of the Right Shoulder HPI Patient here today for right shoulder pain x 6 months. States that she fell recently and landed on the right shoulder, but was having pain before the fall happened. She is right hand dominant. ASSESSMENT: M25.819 Shoulder impingement (primary encounter diagnosis) M25.511, G89.29 Chronic right shoulder pain PLAN: She would like to try a cortisone injection. Will continue to monitor patient for Shoulder impingement (primary encounter diagnosis) Chronic right shoulder pain, patient to schedule visit as per follow up discussed. OBJECTIVE: Ms. Mary Jane De Paz is a pleasant 74 year old in no apparent distress. Gen:There were no vitals taken for this visit. nl development, non obese, no deformities ENT: Normocephalic, normal hearing, moist mucosa CV: Pulses:Radial= 2+ and symmetric, capillary refill < 2 secs, no peripheral edema/varicosities Skin: no rash, bruising or lesions. Good turgor. Psych: cooperative and appropriate, alert and oriented x 3, good mood and affect. Musculoskeletal: Supple range of motion of the cervical spine without pain. Spurling signs are negative. No atrophy of the deltoid and shoulder musculature. Right shoulder is nontender to palpation over the SC joint, clavicle and AC joint. no tenderness to palpation over the posterior shoulder, positive tenderness over the anterior lateral corner of the shoulder and greater tuberosity. Non-tender at the bicipital groove and coracoid. Active range of motion is 150 of forward elevation, 60 external rotation, and internal rotation to the lumbar spine. Passive range of motion is symmetrical,, respectively. No laxity with anterior and posterior stress. positive Neer and Mullins impingement signs. 4+/5 strength with supraspinatus, infraspinatus and subscapularis. Sensation is intact in the axillary, radial, median and ulnar nerve distribution Large Joint Arthro/Inj: R subacromial bursa Informed Consent Consent Obtained: Verbal Alton Protocol A moment to CARE was completed. SIGN IN Sign in communication not applicable due to emergent procedure. Personnel directly involved with the procedure wore the appropriate PPE. Special Equipment: N/A Patient/Surrogate Stated/Verified: Patient name, Date of , Relevant allergies and Intended procedure TIME OUT Relevant labs, photos, and/or imaging studies have been reviewed. Intended patient and procedure match the source document(s). Consent documented and matches the intended procedure. Correct side/site marked and visible. Medications required for procedure verified. No fire risk assessment and interventions applicable. No implant(s) inserted.03/29/2024 11:34 AM The procedure site was prepped in the usual sterile fashion. Site: R subacromial bursa Medications: 6 mg betamethasone acetate-betamethasone sodium phosphate 6 mg/mL Anesthetics: 5 mL lidocaine (PF) 10 mg/mL (1 %) Outcome: Tolerated well, no immediate complications Post-injection instructions were reviewed with the patient and the patient voiced understanding of these instructions. SIGN OUT No specimen collected. No instruments, equipment or retained foreign bodies applicable. Post-procedure follow-up management communicated and Plan of Care Visit completed when applicable Imaging: Impression IMPRESSION: Findings as discussed in results portion of report Senior Laboratory Technician: SEFERINO Transcribe Date/Time: Mar 29 2024 4:16P Dictated by : DESHAUN WHITAKER DO This examination was interpreted and the report reviewed and electronically signed by: DESHAUN WHITAKER DO on Mar 29 2024 4:17PM EST Results-Findings * * *Final Report* * * DATE OF EXAM: Mar 29 2024 11:08AM FINA 5253 - XR SHLDR >/=3V AP/REGINA AP/OTHR RT / PROCEDURE REASON: M25.511-Right shoulder pain, unspecified chronicity * * * * Physician Interpretation * * * * EXAM(s): XR SHLDR >/=3V AP/REGINA AP/OTHR RT..... HISTORY: 74 years old Clinical information: Right shoulder pain, unspecified chronicity Patient states that she has been having right side shoulder pain for some time. TECHNIQUE: Images: XR SHLDR >/=3V AP/REGINA AP/OTHR RT Comparison: None. RESULT: Moderate bony demineralization. Moderate degenerative changes in the spine Findings: Moderate narrowing of the glenohumeral joint. AC joint is unremarkable. Acromiohumeral interval is preserved. No fractures or dislocations are seen. Supporting Subjective Information Below: Past Surgical History: PAST SURGICAL HISTORY Procedure Laterality Date ABDOMINAL SURGERY HX COLONOSCOPY 11/05/2016 Tammi- divertiuclosis, internal hemorrhoids, repeat in 5 years COLONOSCOPY 04/02/2022 repeat in 5 years due to reported prior history of polyps COSMETIC ASSESSMENT EGD 11/05/2016 Tammi- gastritis EGD 09/08/2018 /Gastritis EGD 04/02/2020 EGD 04/02/2022 EYE SURGERY HX Bilateral cataract extraction 2009' GASTRECTOMY,PART DISTAL;W/GASTRODUODENOSTO GASTRIC BYPASS HX 12/13/2018 Laparoscopic Samina-en-Y gastric bypass HIP SURGERY HX Screws replaced JOINT REPLACEMENT HX LAPAROSCOPY DIAGNOSTIC 07/26/2023 internal hernias and mesenteric adhesion OOPHORECTOMY PARTIAL OR TOTAL PAST SURGICAL HISTORY OF 2009 hemmroidectomy/sphincterectomy - Dr Nichole PAST SURGICAL HISTORY OF 2008 total left knee replacement PAST SURGICAL HISTORY OF 2003 partial right knee replacement PAST SURGICAL HISTORY OF 1990 total hysterectomy PAST SURGICAL HISTORY OF 2010 lDr Mansoor - [place] elbow fracture - traumatic. radial head replacement PAST SURGICAL HISTORY OF Bilateral 2016 hand surgery PAST SURGICAL HISTORY OF Left RELEASE CONTRACTURE DEQUERVAINS S INSERT PINN METAL NTRL HIP Right 11/17/2021 SKIN BIOPSY HX TOTAL HIP REPLACEMENT Right TOTAL KNEE REPLACEMENT Right 09/15/2022 TUBAL LIGATION HX VAGINAL HYSTERECTOMY 1979' Medications: Current Outpatient Medications Medication Sig atorvastatin (LIPITOR) 20 mg tablet Take 1 tablet by mouth daily at bedtime. For cholesterol. traZODone (DESYREL) 100 mg tablet Take 2 tablets by mouth daily at bedtime. esomeprazole (NEXIUM) 40 mg capsule TAKE ONE CAPSULE BY MOUTH twice daily. FLUoxetine (PROZAC) 40 mg capsule Take 1 capsule by mouth two times a day. dulaglutide (TRULICITY) 0.75 mg/0.5 mL pen injector Inject 0.75 mg subcutaneously one time a week. E11.9. buPROPion XL (WELLBUTRIN XL) 300 mg 24 hr tablet Take 1 tablet by mouth once daily. levothyroxine (SYNTHROID) 100 mcg tablet Take 1 tablet by mouth once daily. famotidine (PEPCID) 20 mg tablet Take 1 tablet by mouth two times a day as needed (GERD). lisinopril (ZESTRIL) 20 mg tablet Take 1 tablet by mouth once daily. melatonin 10 mg tab Take 1 tablet by mouth at bedtime as needed for insomnia. Calcium Citrate 250 mg calcium tab Take 250 mg by mouth. coffee xt/phosphatidyl serine (NEURIVA ORIGINAL ORAL) Take 2 tablets by mouth once daily. APPLE CIDER VINEGAR ORAL Take 1 capsule by mouth once daily. Combined with the tumeric MULTI-VITAMIN ORAL Take 1 tablet by mouth once daily. Takes bariatric multivitamin daily Blood-Glucose Meter,Continuous (FREESTYLE JAUN 3 READER) [facility] Dispense one reader kit. E11.9 Blood-Glucose Sensor (FREESTYLE JAUN 3 SENSOR) guido CHANGE sensor every 14 days. USE FOR CONTINUOUS GLUCOSE MONITORING. E11.9 RISK FOR HYPOGLYCEMIA. Lancets Test blood sugar(s) 1 times daily and prn symptoms. Dx: Type 2 DM - Controlled E11.9 Insulin: No ondansetron (ZOFRAN) 8 mg tablet Take 1 tablet by mouth every 8 hours as needed for nausea/vomiting. No current facility-administered medications for this visit. Allergies: Vicodin [Hydrocodone-Acetaminophen] ROS: General (negative for fatigue, malaise, weight loss/gain) HEENT (negative for headache, earache, recent vision changes, sinus pain, sore throat) Respiratory (no recent shortness of breath, hemoptysis) CV (negative for chest tightness, palpitations) Musculoskeletal (see HPI) Psych (no depression, anxiety) Delfin Kerr MD documented in this encounter [facility] 03-21-2024 Note HNO ID: [id number] Author: AFSANEH MAHAN, PT Service: ? Author Type: Physical Therapist Type: Progress Notes Filed: 03/21/2024 14:45 Note Text: Episode Visit Count: 1 Therapist That Will Accept/Oversee The Plan Of Care: Afsaneh Mahan Start of Care Date: 03/21/24 Onset Date: 03/21/22 Plan of Care Certification Date: 03/21/24 Next Certification Due Date: 05/02/24 Patient Identified by Name and Date of : Yes REHABILITATION AND SPORTS THERAPY PHYSICAL THERAPY EVALUATION PLAN OF CARE: Assessment: Mary Jane De Paz presents with diagnosis of falls that interferes with stair negotiation . The patient presents with impairments in ADL's, balance, overall function, and patient reported outcome measures. PROMIS? (Patient-Reported Outcomes Measurement Information System) scores were reviewed and identified as a rehabilitation concern. Prognosis for therapy is Good due to: good support system/ coping skills, within-session changes, positive past response to therapy, acuteness of condition, good overall health status, current objective clinical presentation . The patient will benefit from skilled therapy services to meet the goals established for this plan of care as noted below. Assessment Fall Risk : Complex at risk Goals for Episode of Care: established 03/21/24 Patient will report no falls. Improve score on Timed Up and Go Test to 7 seconds to reflect decreased fall risk. Improve score on 30 Second Chair Stand to 13 repetitions to reflect decreased fall risk. Patient will demonstrate independent and proper use of assisstive device to allow for improved walking quality and safety therefore reducing the risk of falls. Patient Goals: reduce fall risk Time Frame for Goals and Treatment : 05/02/24 Planned Interventions, Frequency, and Duration: Current Frequency: 1x/week Duration: 6 weeks Total Number of Visits Planned: 6 Planned Treatment Interventions: Therapeutic exercise (31575), Self-intermediate management (36559) PLAN FOR NEXT VISIT: FGA Patient demonstrates good understanding of plan of care and treatment. The above goals and plan of care were discussed and agreed upon by patient/family. SUBJECTIVE: for falls without dizziness or other warning. Pt. reports onset about 1.5-2 years ago. Falls occur inside and outside, most often involving steps. Pt. fx her foot in November. Pt. was in a boot and had just dc boot when she fell again down the last step of her daughter's basement. Pt. does not correlate dizziness with falls but she does have momentary dizziness with turning and standing up quickly. Pt. gets split vision and double vision with watching TV and she has told the eye about this. Patient Goals: reduce fall risk Functional Limitations: stair negotiation Prior Level of Function: Independent without limitations Relevant History Past Relevant Surgical Conditions: Total Knee Replacement-Right, Total Knee Replacement-Left, Total Hip Replacement-Right Employment: Retired Intake Information: Prescription present Falls Interview: Two or more falls in the last year Falls Intervention: Instructed patient on safety and use of assistive device and awareness in regards to falls prevention. Falls History # of falls in past year: 6 # of falls resulting in an injury in past year: 3 Pain: Pain Pain Level: 0 Post Treatment Pain Post Treatment Pain Level: No Change PROMIS Scales 03/19/2024 02/01/2024 07/01/2023 Higher is Better Phys Func - Score 39 (moderate dysfunction) 41 (mild dysfunction) 41 (mild dysfunction) Phys Func - Percentile 14 18 18 Self-Eff Symptom - Score 38 (Low) Self-Eff Symptom - Percentile 12 T-scores: mean of general population = 50. 5 points is clinically meaningfully difference Percentiles provide an indication of how the patient's score ranks in relation to the general population. Higher percentile rankings indicate better function/quality of life. 50th percentile is the average of the general population and indicates half of respondents had a worse score. OBJECTIVE MEASURES WITH LEVEL OF FUNCTION: Posture / Alignment Posture: Forward head, Increased thoracic kyphosis Oculomotor Testing Fixation Present Head Thrusts: Negative Cervical Spine ROM Cervical ROM : Limitation AROM Cervical Flexion AROM: Normal Cervical Extension AROM: Normal Cervical Side-Bend Right AROM: Normal Cervical Side-Bend Left AROM: Normal Cervical Rotation Right AROM: Normal Cervical Rotation Left AROM: Normal Additional AROM: (denies dizziness with head movement grossly) Mobility Sit To Stand: Independent Stand To Sit: Independent Gait Gait: Independent Gait Observation: unremarkable Functional Performance Test Results Assistive Device: None 30 Second Chair Stand Test: 12 reps (without use of armrests) Timed Up and Go (sec): 8 sec 4 Stage Balance Test Narrow base of support (sec): 30 sec Semi-t (more content not included)... [facility] 03-21-2024 History of Present illness Narrative Images from the original note were not included. Episode Visit Count: 1 Therapist That Will Accept/Oversee The Plan Of Care: Afsaneh Mahan Start of Care Date: 03/21/24 Onset Date: 03/21/22 Plan of Care Certification Date: 03/21/24 Next Certification Due Date: 05/02/24 Patient Identified by Name and Date of : Yes REHABILITATION AND SPORTS THERAPY PHYSICAL THERAPY EVALUATION PLAN OF CARE: Assessment: Mary Jane De Paz presents with diagnosis of falls that interferes with stair negotiation . The patient presents with impairments in ADL's, balance, overall function, and patient reported outcome measures. PROMIS (Patient-Reported Outcomes Measurement Information System) scores were reviewed and identified as a rehabilitation concern. Prognosis for therapy is Good due to: good support system/ coping skills, within-session changes, positive past response to therapy, acuteness of condition, good overall health status, current objective clinical presentation . The patient will benefit from skilled therapy services to meet the goals established for this plan of care as noted below. Assessment Fall Risk : Complex at risk Goals for Episode of Care: established 03/21/24 Patient will report no falls. Improve score on Timed Up and Go Test to 7 seconds to reflect decreased fall risk. Improve score on 30 Second Chair Stand to 13 repetitions to reflect decreased fall risk. Patient will demonstrate independent and proper use of assisstive device to allow for improved walking quality and safety therefore reducing the risk of falls. Patient Goals: reduce fall risk Time Frame for Goals and Treatment : 05/02/24 Planned Interventions, Frequency, and Duration: Current Frequency: 1x/week Duration: 6 weeks Total Number of Visits Planned: 6 Planned Treatment Interventions: Therapeutic exercise (13597), Self-intermediate management (42978) PLAN FOR NEXT VISIT: FGA Patient demonstrates good understanding of plan of care and treatment. The above goals and plan of care were discussed and agreed upon by patient/family. SUBJECTIVE: for falls without dizziness or other warning. Pt. reports onset about 1.5-2 years ago. Falls occur inside and outside, most often involving steps. Pt. fx her foot in November. Pt. was in a boot and had just dc boot when she fell again down the last step of her daughter's basement. Pt. does not correlate dizziness with falls but she does have momentary dizziness with turning and standing up quickly. Pt. gets split vision and double vision with watching TV and she has told the eye about this. Patient Goals: reduce fall risk Functional Limitations: stair negotiation Prior Level of Function: Independent without limitations Relevant History Past Relevant Surgical Conditions: Total Knee Replacement-Right, Total Knee Replacement-Left, Total Hip Replacement-Right Employment: Retired Intake Information: Prescription present Falls Interview: Two or more falls in the last year Falls Intervention: Instructed patient on safety and use of assistive device and awareness in regards to falls prevention. Falls History # of falls in past year: 6 # of falls resulting in an injury in past year: 3 Pain: Pain Pain Level: 0 Post Treatment Pain Post Treatment Pain Level: No Change PROMIS Scales 03/19/2024 02/01/2024 07/01/2023 Higher is Better Phys Func - Score 39 (moderate dysfunction) 41 (mild dysfunction) 41 (mild dysfunction) Phys Func - Percentile 14 18 18 Self-Eff Symptom - Score 38 (Low) Self-Eff Symptom - Percentile 12 T-scores: mean of general population = 50. 5 points is clinically meaningfully difference Percentiles provide an indication of how the patient's score ranks in relation to the general population. Higher percentile rankings indicate better function/quality of life. 50th percentile is the average of the general population and indicates half of respondents had a worse score. OBJECTIVE MEASURES WITH LEVEL OF FUNCTION: Posture / Alignment Posture: Forward head, Increased thoracic kyphosis Oculomotor Testing Fixation Present Head Thrusts: Negative Cervical Spine ROM Cervical ROM : Limitation AROM Cervical Flexion AROM: Normal Cervical Extension AROM: Normal Cervical Side-Bend Right AROM: Normal Cervical Side-Bend Left AROM: Normal Cervical Rotation Right AROM: Normal Cervical Rotation Left AROM: Normal Additional AROM: (denies dizziness with head movement grossly) Mobility Sit To Stand: Independent Stand To Sit: Independent Gait Gait: Independent Gait Observation: unremarkable Functional Performance Test Results Assistive Device: None 30 Second Chair Stand Test: 12 reps (without use of armrests) Timed Up and Go (sec): 8 sec 4 Stage Balance Test Narrow base of support (sec): 30 sec Semi-tandem base of support (sec): 30 sec Education: Education Learning Preferences: Demonstration, Explanation, Performance, Printed Materials Barriers: Emotions Learning/educational needs: Plan of Care, Home exercise program, Gait Training Education Provided: Yes, see treatment interventions for education provided Education Provided To: Patient Education Mode/Type: Demonstration, Explanation/Discussion Response to Education/Teach Back: States/Identifies, Return Demonstration TREATMENT: PT Treatment Interventions: Therapeutic Exercise, Self-Senior Living Management Evaluation Self-Senior Living Management: 1: strongly advised use of SC 2: discussed considering automatic lights and declutter hallways 3: discussed following up with eye Dr concerning her vision concerns - this makes up much of the balance system Skilled Intervention: Skilled judgment in the selection of proper modification for activity of daily living/home management based on clinical presentation, deficits, and needs. Reviewed patient specific diagnosis in relation to activities of daily living/home management. Activity progression based on professional judgement. Billing * Evaluation Low Complexity: 1 Unit Self-Care/Home Management Treatment Minutes: 10 Skilled Treatment Time Minutes (timed and untimed codes): 30 Total Session Time (minutes): 30 Session Start Time : 1408 Session Stop Time : 1438 Afsaneh Mahan PT documented in this encounter [facility] 03-08-2024 Telephone encounter Note Prescription Refill Information The patient has been identified by name and date of : Yes Caregiver verified no other encounters exist for this prescription request: Yes Caregiver confirmed with patient/requestor that no other refills are due, in the near future, with this provider at this time: Yes The last office visit in the department: 01/15/2024 Does the patient have a future office visit with this provider/department: No Requested Prescriptions Pending Prescriptions Disp Refills atorvastatin (LIPITOR) 20 mg tablet 90 tablet 1 Sig: Take 1 tablet by mouth daily at bedtime. For cholesterol. Christine Boo LPN March 08, 2024 8:38 AM [facility] 03-08-2024 Miscellaneous Notes Prescription Refill Information The patient has been identified by name and date of : Yes Caregiver verified no other encounters exist for this prescription request: Yes Caregiver confirmed with patient/requestor that no other refills are due, in the near future, with this provider at this time: Yes The last office visit in the department: 01/15/2024 Does the patient have a future office visit with this provider/department: No Requested Prescriptions Pending Prescriptions Disp Refills atorvastatin (LIPITOR) 20 mg tablet 90 tablet 1 Sig: Take 1 tablet by mouth daily at bedtime. For cholesterol. Christine Boo LPN March 08, 2024 8:38 AM documented in this encounter [facility] 03-07-2024 Telephone encounter Note The patient has been identified by name and date of : Yes pharmacy Caregiver verified no other encounters exist for this prescription request: Yes Caregiver confirmed with patient/requestor that no other refills are due, in the near future, with this provider at this time: Yes The last office visit in the department: 01/15/2024 Does the patient have a future office visit with this provider/department: No no future appt scheduled Requested Prescriptions Pending Prescriptions Disp Refills traZODone (DESYREL) 100 mg tablet 180 tablet 1 Sig: Take 2 tablets by mouth daily at bedtime. Yen Kidd LPN March 07, 2024 10:02 AM [facility] 03-07-2024 Miscellaneous Notes The patient has been identified by name and date of : Yes pharmacy Caregiver verified no other encounters exist for this prescription request: Yes Caregiver confirmed with patient/requestor that no other refills are due, in the near future, with this provider at this time: Yes The last office visit in the department: 01/15/2024 Does the patient have a future office visit with this provider/department: No no future appt scheduled Requested Prescriptions Pending Prescriptions Disp Refills traZODone (DESYREL) 100 mg tablet 180 tablet 1 Sig: Take 2 tablets by mouth daily at bedtime. Yen Kidd LPN March 07, 2024 10:02 AM documented in this encounter [facility] 03-03-2024 Telephone encounter Note The patient has been identified by name and date of : Yes Caregiver verified no other encounters exist for this prescription request: Yes Caregiver confirmed with patient/requestor that no other refills are due, in the near future, with this provider at this time: Yes The last office visit in the department: 01/15/2024 Does the patient have a future office visit with this provider/department: no due 6 month FU June 2024 Requested Prescriptions Pending Prescriptions Disp Refills esomeprazole (NEXIUM) 40 mg capsule 180 capsule 1 Sig: TAKE ONE CAPSULE BY MOUTH twice daily. Mary Braxton LPN March 03, 2024 9:22 AM [facility] 03-03-2024 Miscellaneous Notes The patient has been identified by name and date of : Yes Caregiver verified no other encounters exist for this prescription request: Yes Caregiver confirmed with patient/requestor that no other refills are due, in the near future, with this provider at this time: Yes The last office visit in the department: 01/15/2024 Does the patient have a future office visit with this provider/department: no due 6 month FU June 2024 Requested Prescriptions Pending Prescriptions Disp Refills esomeprazole (NEXIUM) 40 mg capsule 180 capsule 1 Sig: TAKE ONE CAPSULE BY MOUTH twice daily. Mary Braxton LPN March 03, 2024 9:22 AM documented in this encounter [facility] 02-24-2024 Note Patient Outreach (IN [facility]) MARY JANE DE PAZ ([id number]) 1950 F CPRE Date Time Provider Department 02/24/24 CHRISTINE MORGAN During your visit today, we recorded the following information about you: Allergies As of Date: 02/24/2024 Noted Allergy Reaction VICODIN (HYDROCODONE-ACETAMINOPHE*09/29/19 10 9 - Itching Comments: Pt not sure if she has an allergy but states she wants it documented. Date Reviewed: 12/28/2023 Reviewed by: Sonam Arana, RT(R) - Fully Assessed Visit Diagnosis:Encounter for screening mammogram for breast cancer [Z12.31] Order(s):[facility] SCREENING [facility] [[id number]] Order #: [id number] FUTURE Prescriptions as of 02/29/2024 - FLUoxetine (PROZAC) 40 mg capsule Take 1 capsule by mouth two times a day. - dulaglutide (TRULICITY) 0.75 mg/0.5 mL pen injector Inject 0.75 mg subcutaneously one time a week. E11.9. - buPROPion XL (WELLBUTRIN XL) 300 mg 24 hr tablet Take 1 tablet by mouth once daily. - esomeprazole (NEXIUM) 40 mg capsule TAKE ONE CAPSULE BY MOUTH twice daily. - traZODone (DESYREL) 100 mg tablet Take 2 tablets by mouth daily at bedtime. - levothyroxine (SYNTHROID) 100 mcg tablet Take 1 tablet by mouth once daily. - atorvastatin (LIPITOR) 20 mg tablet Take 1 tablet by mouth daily at bedtime. For cholesterol. - famotidine (PEPCID) 20 mg tablet Take 1 tablet by mouth two times a day as needed (GERD). - lisinopril (ZESTRIL) 20 mg tablet Take 1 tablet by mouth once daily. - Blood-Glucose Meter,Continuous (FREESTYLE JAUN 3 READER) [facility] Dispense one reader kit. E11.9 - Blood-Glucose Sensor (FREESTYLE JAUN 3 SENSOR) guido CHANGE sensor every 14 days. USE FOR CONTINUOUS GLUCOSE MONITORING. E11.9 RISK FOR HYPOGLYCEMIA. - Lancets Test blood sugar(s) 1 times daily and prn symptoms. Dx: Type 2 DM - Controlled E11.9 Insulin: No - melatonin 10 mg tab Take 1 tablet by mouth at bedtime as needed for insomnia. - Calcium Citrate 250 mg calcium tab Take 250 mg by mouth. - ondansetron (ZOFRAN) 8 mg tablet Take 1 tablet by mouth every 8 hours as needed for nausea/vomiting. - coffee xt/phosphatidyl serine (NEURIVA ORIGINAL ORAL) Take 2 tablets by mouth once daily. - APPLE CIDER VINEGAR ORAL Take 1 capsule by mouth once daily. Combined with the tumeric - lactose-reduced food (ADULT NUTRITIONAL SUPPLEMENT ORAL) (Discontinued) Take 1 capsule by mouth once daily. Tumeric - 2000mg capsule - MULTI-VITAMIN ORAL Take 1 tablet by mouth once daily. 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] 08/05/2010 HTN (hypertension) [I10] 12/05/2011 10/14/2014 Hyperlipidemia [E78.5] 08/04/2012 Hypothyroid [E03.9] 11/28/2012 Generalized postprandial abdominal pain [R10.84]09/01/2013 Diarrhea [R19.7] 09/01/2013 08/30/2020 IBS (irritable bowel syndrome) [K58.9] 09/01/2013 Moderate episode of recurrent major depressive *04/28/2014 Essential hypertension [I10] 10/14/2014 MARIBEL (obstructive sleep apnea) [G47.33] 09/17/2015 Cognitive decline [R41.89] 01/10/2016 Other symbolic dysfunction [R48.8] 04/22/2016 Actinic keratoses [L57.0] 07/30/2016 GERD without esophagitis [K21.9] 10/09/2016 Encounter for screening colonoscopy [Z12.11] 10/09/2016 08/30/2020 Pain of foot [M79.673] 11/27/2016 08/30/2020 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9] 11/27/2016 Hypertensive kidney disease with stage 3 chroni*04/13/2017 Contusion of leg, left, sequela [S80.12XS] 04/30/2017 08/30/2020 De Quervain's tenosynovitis, left [M65.4] 01/09/2018 Post-operative state [Z98.890] 05/26/2018 08/30/2020 Joint stiffness of hand, left [M25.642] 06/22/2018 Metacarpophalangeal joint pain of left hand [M2*07/20/2018 Finger pain, left [M79.645] 07/20/2018 Class 3 severe obesity with serious comorbidity*08/19/2018 08/30/2020 Asthma [J45.909] Stage 3 chronic kidney disease (HCC) [N18.30] 11/01/2018 Obesity [E66.9] 12/14/2018 08/30/2020 Obesity, Class II, BMI 35-39.9 [E66.812] 12/17/2018 08/30/2020 H/O gastric bypass [Z98.84] 12/23/2018 Closed displaced fracture of right femoral neck*11/17/2021 Hyponatremia [E87.1] 11/17/2021 Hip fracture requiring operative repair, right,*11/17/2021 Coronary artery disease [I25.10] 10/28/2017 05/12/2022 Type 2 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 (HCC) [E11.9] Renal lesion [N28.9] 01/15/2015 Osteoarthritis of right hip, unspecified osteoa*07/09/2022 07/09/2022 History of total hip replacement, right [Z96.64*08/27/2022 History of total knee replacement, left [Z96.65*08/27/2022 Coronary artery disease involving blackfeet manley*09/04/2022 UTI (urinary tract infection) [N39.0] 09/04/2022 S/P total knee arthroplasty, right [Z96 (more content not included)... [facility] 02-23-2024 Note HNO ID: [id number] Author: JASE DUMONT RN Service: ? Author Type: Registered Nurse Type: Progress Notes Filed: 02/23/2024 14:02 Note Text: CDM Telephonic Outreach Provider Action/FYI -ckd, dm, htn Contacted for: Routine Telephonic Outreach Contact made with patient: Yes Patient identified by name and date of . Discussed care with patient Are you experiencing any new or worsening symptoms you need to talk about today? Yes Pt had previous walking boot removed, that same day walked down stairs, missed the last step and fell breaking 2 lower bones in leg, now back in a walking boot; no other cdm concerns at this time; Fall risk updated Based on payroll director, the following disposition is advised: No symptoms or symptoms present, not severe. Routed to: No Action Needed VIDA Education Provided this Outreach: No Jase Dumont RN February 23, 2024 1:59 PM [facility] 02-23-2024 History of Present illness Narrative CDM Telephonic Outreach Provider Action/JACE -ckd, dm, htn Contacted for: Routine Telephonic Outreach Contact made with patient: Yes Patient identified by name and date of . Discussed care with patient Are you experiencing any new or worsening symptoms you need to talk about today? Yes Pt had previous walking boot removed, that same day walked down stairs, missed the last step and fell breaking 2 lower bones in leg, now back in a walking boot; no other cdm concerns at this time; Fall risk updated Based on payroll director, the following disposition is advised: No symptoms or symptoms present, not severe. Routed to: No Action Needed VIDA Education Provided this Outreach: No Jase Dumont RN February 23, 2024 1:59 PM documented in this encounter [facility] 02-23-2024 Note Patient Outreach (AM BC) MARY JANE DE PAZ ([id number]) 1950 F CPRE Date Time Provider Department 02/23/24 JASE DUMONT During your visit today, we recorded the following information about you: Jase Dumont RN 02/23/2024 2:02 PM Signed [facility] Telephonic Outreach Provider Maggi/JACE -ckd, dm, htn Contacted for: Routine Telephonic Outreach Contact made with patient: Yes Patient identified by name and date of . Discussed care with patient Are you experiencing any new or worsening symptoms you need to talk about today? Yes Pt had previous walking boot removed, that same day walked down stairs, missed the last step and fell breaking 2 lower bones in leg, now back in a walking boot; no other cdm concerns at this time; Fall risk updated Based on payroll director, the following disposition is advised: No symptoms or symptoms present, not severe. Routed to: No Action Needed VIDA Education Provided this Outreach: No Jase Dumont RN February 23, 2024 1:59 PM Allergies As of Date: 02/23/2024 Noted Allergy Reaction VICODIN (HYDROCODONE-ACETAMINOPHE*09/29/19 10 9 - Itching Comments: Pt not sure if she has an allergy but states she wants it documented. Date Reviewed: 12/28/2023 Reviewed by: Sonam Arana, RT(R) - Fully Assessed Reason for Visit: community monitoring outreach [Other] Cmt: Monthly cdm call Prescriptions as of 02/23/2024 - FLUoxetine (PROZAC) 40 mg capsule Take 1 capsule by mouth two times a day. - dulaglutide (TRULICITY) 0.75 mg/0.5 mL pen injector Inject 0.75 mg subcutaneously one time a week. E11.9. - buPROPion XL (WELLBUTRIN XL) 300 mg 24 hr tablet Take 1 tablet by mouth once daily. - esomeprazole (NEXIUM) 40 mg capsule TAKE ONE CAPSULE BY MOUTH twice daily. - traZODone (DESYREL) 100 mg tablet Take 2 tablets by mouth daily at bedtime. - levothyroxine (SYNTHROID) 100 mcg tablet Take 1 tablet by mouth once daily. - atorvastatin (LIPITOR) 20 mg tablet Take 1 tablet by mouth daily at bedtime. For cholesterol. - famotidine (PEPCID) 20 mg tablet Take 1 tablet by mouth two times a day as needed (GERD). - lisinopril (ZESTRIL) 20 mg tablet Take 1 tablet by mouth once daily. - Blood-Glucose Meter,Continuous (FREESTYLE JAUN 3 READER) [facility] Dispense one reader kit. E11.9 - Blood-Glucose Sensor (FREESTYLE JAUN 3 SENSOR) guido CHANGE sensor every 14 days. USE FOR CONTINUOUS GLUCOSE MONITORING. E11.9 RISK FOR HYPOGLYCEMIA. - Lancets Test blood sugar(s) 1 times daily and prn symptoms. Dx: Type 2 DM - Controlled E11.9 Insulin: No - melatonin 10 mg tab Take 1 tablet by mouth at bedtime as needed for insomnia. - Calcium Citrate 250 mg calcium tab Take 250 mg by mouth. - ondansetron (ZOFRAN) 8 mg tablet Take 1 tablet by mouth every 8 hours as needed for nausea/vomiting. - coffee xt/phosphatidyl serine (NEURIVA ORIGINAL ORAL) Take 2 tablets by mouth once daily. - APPLE CIDER VINEGAR ORAL Take 1 capsule by mouth once daily. Combined with the tumeric - lactose-reduced food (ADULT NUTRITIONAL SUPPLEMENT ORAL) (Discontinued) Take 1 capsule by mouth once daily. Tumeric - 2000mg capsule - MULTI-VITAMIN ORAL Take 1 tablet by mouth once daily. 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] 08/05/2010 HTN (hypertension) [I10] 12/05/2011 10/14/2014 Hyperlipidemia [E78.5] 08/04/2012 Hypothyroid [E03.9] 11/28/2012 Generalized postprandial abdominal pain [R10.84]09/01/2013 Diarrhea [R19.7] 09/01/2013 08/30/2020 IBS (irritable bowel syndrome) [K58.9] 09/01/2013 Moderate episode of recurrent major depressive *04/28/2014 Essential hypertension [I10] 10/14/2014 MARIBEL (obstructive sleep apnea) [G47.33] 09/17/2015 Cognitive decline [R41.89] 01/10/2016 Other symbolic dysfunction [R48.8] 04/22/2016 Actinic keratoses [L57.0] 07/30/2016 GERD without esophagitis [K21.9] 10/09/2016 Encounter for screening colonoscopy [Z12.11] 10/09/2016 08/30/2020 Pain of foot [M79.673] 11/27/2016 08/30/2020 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9] 11/27/2016 Hypertensive kidney disease with stage 3 chroni*04/13/2017 Contusion of leg, left, sequela [S80.12XS] 04/30/2017 08/30/2020 De Quervain's tenosynovitis, left [M65.4] 01/09/2018 Post-operative state [Z98.890] 05/26/2018 08/30/2020 Joint stiffness of hand, left [M25.642] 06/22/2018 Metacarpophalangeal joint pain of left hand [M2*07/20/2018 Finger pain, left [M79.645] 07/20/2018 Class 3 severe obesity with serious comorbidity*08/19/2018 08/30/2020 Asthma [J45.909] Stage 3 chronic kidney disease (HCC) [N18.30] 11/01/2018 Obesity [E66.9] 12/14/2018 (more content not included)... [facility] 02-03-2024 Note HNO ID: [id number] Author: CURTIS FERGUSON MD Service: ? Author Type: Physician Type: Progress Notes Filed: 03/01/2024 22:00 Note Text: DEPARTMENT OF ORTHOPAEDICS HISTORY OF PRESENT ILLNESS: This is a pleasant 73 year old female, who presents today with a chief complaint of right foot pain. She complains of sharp and aching pain about the lateral aspect of approximately 6 weeks duration. This pain is constant. She reports trauma. She complains that the pain is varies in intensity depending on activity. She denies nocturnal pain. The pain is exacerbated by walking and prolonged standing. Previous treatments have included immobilization, ice, elevation she denies distal radiation. She denies numbness, tingling, or electric shocks. She denies popping, clicking, catching, locking, grinding, instability, buckling, or giving way. The patient's walking tolerance is moderate before resting. She reports swelling and/or warmth. PAST MEDICAL HISTORY Diagnosis Date Allergic rhinitis Arthritis [facility], knee Asthma CKD (chronic kidney disease) 11/01/2018 Class 3 severe obesity with serious comorbidity and body mass index (BMI) of 40.0 to 44.9 in adult ([facility]) 08/19/2018 Coronary artery disease 10/28/[address] Salazar Fracture of right hip ([facility]) GERD (gastroesophageal reflux disease) History of transfusion HTN (hypertension) Hypothyroidism Mixed hyperlipidemia NIDDM (non-insulin dependent 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) MARIBEL on CPAP CPAP 9Cm Osteoarthritis of hip Renal lesion 01/15/2015 Suggest renal US every 1-2 years per PCP or nephro. Snoring Type 2 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 with hyperglycemia, with long-term current use of insulin ([facility]) 1999 PAST SURGICAL HISTORY Procedure Laterality Date ABDOMINAL SURGERY HX COLONOSCOPY 11/05/2016 Tammi- divertiuclosis, internal hemorrhoids, repeat in 5 years COLONOSCOPY 04/02/2022 repeat in 5 years due to reported prior history of polyps COSMETIC ASSESSMENT EGD 11/05/2016 Tammi- gastritis EGD 09/08/2018 /Gastritis EGD 04/02/2020 EGD 04/02/2022 EYE SURGERY HX Bilateral cataract extraction 2009' GASTRECTOMY,PART DISTAL;W/GASTRODUODENOSTO GASTRIC BYPASS HX 12/13/2018 Laparoscopic Samina-en-Y gastric bypass HIP SURGERY HX Screws replaced JOINT REPLACEMENT HX LAPAROSCOPY DIAGNOSTIC 07/26/2023 internal hernias and mesenteric adhesion OOPHORECTOMY PARTIAL OR TOTAL PAST SURGICAL HISTORY OF 2009 hemmroidectomy/sphincterectomy - Dr Nichole PAST SURGICAL HISTORY OF 2008 total left knee replacement PAST SURGICAL HISTORY OF 2003 partial right knee replacement PAST SURGICAL HISTORY OF 1990 total hysterectomy PAST SURGICAL HISTORY OF 2010 lDr Mansoor - [place] elbow fracture - traumatic. radial head replacement PAST SURGICAL HISTORY OF Bilateral 2016 hand surgery PAST SURGICAL HISTORY OF Left RELEASE CONTRACTURE DEQUERVAINS S INSERT PINN METAL NTRL HIP Right 11/17/2021 SKIN BIOPSY HX TOTAL HIP REPLACEMENT Right TOTAL KNEE REPLACEMENT Right 09/15/2022 TUBAL LIGATION HX VAGINAL HYSTERECTOMY 1979' Current Outpatient Medications Medication Sig Dispense Refill FLUoxetine (PROZAC) 40 mg capsule Take 1 capsule by mouth two times a day. 180 capsule 1 dulaglutide (TRULICITY) 0.75 mg/0.5 mL pen injector Inject 0.75 mg subcutaneously one time a week. E11.9. 12 Each 3 buPROPion XL (WELLBUTRIN XL) 300 mg 24 hr tablet Take 1 tablet by mouth once daily. 90 tablet 1 esomeprazole (NEXIUM) 40 mg capsule TAKE ONE CAPSULE BY MOUTH twice daily. 180 capsule 1 traZODone (DESYREL) 100 mg tablet Take 2 tablets by mouth daily at bedtime. 180 tablet 1 levothyroxine (SYNTHROID) 100 mcg tablet Take 1 tablet by mouth once daily. 90 tablet 3 atorvastatin (LIPITOR) 20 mg tablet Take 1 tablet by mouth daily at bedtime. For cholesterol. 90 tablet 1 famotidine (PEPCID) 20 mg tablet Take 1 tablet by mouth two times a day as needed (GERD). 180 tablet 1 lisinopril (ZESTRIL) 20 mg tablet Take 1 tablet by mouth once daily. 90 tablet 1 Blood-Glucose Meter,Continuous (FREESTYLE JAUN 3 READER) [facility] Dispense one reader kit. E11.9 1 Each 0 Blood-Glucose Sensor (FREESTYLE JAUN 3 SENSOR) guido CHANGE sensor every 14 days. USE FOR CONTINUOUS GLUCOSE MONITORING. E11.9 RISK FOR HYPOGLYCEMIA. 6 Each 3 Lancets Test blood sugar(s) 1 times daily and prn symptoms. Dx: Type 2 DM - Controlled E11.9 Insulin: No 100 Each 11 melatonin 10 mg tab Take 1 tablet by mouth at bedtime as needed for insomnia. Calcium Citrate 250 mg calcium tab Take 250 mg by mouth. ondansetron (ZOFRAN) 8 mg tablet Take 1 tablet by mouth every 8 hours as needed for nausea/vomiting. 20 tablet 1 coffee xt/phosphatidyl serine (NEURIVA ORIGINAL ORAL) Take 2 tablets by mouth once daily. APPLE CIDER VINEGAR ORAL Take 1 capsule by mouth once daily. Combined with the tumeric MULTI-VITAMIN ORAL Take 1 tablet by mout (more content not included)... [facility] 02-03-2024 History of Present illness Narrative Images from the original note were not included. DEPARTMENT OF ORTHOPAEDICS HISTORY OF PRESENT ILLNESS: This is a pleasant 73 year old female, who presents today with a chief complaint of right foot pain. She complains of sharp and aching pain about the lateral aspect of approximately 6 weeks duration. This pain is constant. She reports trauma. She complains that the pain is varies in intensity depending on activity. She denies nocturnal pain. The pain is exacerbated by walking and prolonged standing. Previous treatments have included immobilization, ice, elevation she denies distal radiation. She denies numbness, tingling, or electric shocks. She denies popping, clicking, catching, locking, grinding, instability, buckling, or giving way. The patient's walking tolerance is moderate before resting. She reports swelling and/or warmth. PAST MEDICAL HISTORY Diagnosis Date Allergic rhinitis Arthritis [facility] orthopedics, knee Asthma CKD (chronic kidney disease) 11/01/2018 Class 3 severe obesity with serious comorbidity and body mass index (BMI) of 40.0 to 44.9 in adult ([facility]) 08/19/2018 Coronary artery disease 10/28/[address] Salazar Fracture of right hip ([facility]) GERD (gastroesophageal reflux disease) History of transfusion HTN (hypertension) Hypothyroidism Mixed hyperlipidemia NIDDM (non-insulin dependent 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) MARIBEL on CPAP CPAP 9Cm Osteoarthritis of hip Renal lesion 01/15/2015 Suggest renal US every 1-2 years per PCP or nephro. Snoring Type 2 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 with hyperglycemia, with long-term current use of insulin ([facility]) 1999 PAST SURGICAL HISTORY Procedure Laterality Date ABDOMINAL SURGERY HX COLONOSCOPY 11/05/2016 Tammi- divertiuclosis, internal hemorrhoids, repeat in 5 years COLONOSCOPY 04/02/2022 repeat in 5 years due to reported prior history of polyps COSMETIC ASSESSMENT EGD 11/05/2016 Tammi- gastritis EGD 09/08/2018 /Gastritis EGD 04/02/2020 EGD 04/02/2022 EYE SURGERY HX Bilateral cataract extraction 2009' GASTRECTOMY,PART DISTAL;W/GASTRODUODENOSTO GASTRIC BYPASS HX 12/13/2018 Laparoscopic Samina-en-Y gastric bypass HIP SURGERY HX Screws replaced JOINT REPLACEMENT HX LAPAROSCOPY DIAGNOSTIC 07/26/2023 internal hernias and mesenteric adhesion OOPHORECTOMY PARTIAL OR TOTAL PAST SURGICAL HISTORY OF 2009 hemmroidectomy/sphincterectomy - Dr Nichole PAST SURGICAL HISTORY OF 2008 total left knee replacement PAST SURGICAL HISTORY OF 2003 partial right knee replacement PAST SURGICAL HISTORY OF 1990 total hysterectomy PAST SURGICAL HISTORY OF 2010 lDr Mansoor - Parmaeft elbow fracture - traumatic. radial head replacement PAST SURGICAL HISTORY OF Bilateral 2016 hand surgery PAST SURGICAL HISTORY OF Left RELEASE CONTRACTURE DEQUERVAINS S INSERT PINN METAL NTRL HIP Right 11/17/2021 SKIN BIOPSY HX TOTAL HIP REPLACEMENT Right TOTAL KNEE REPLACEMENT Right 09/15/2022 TUBAL LIGATION HX VAGINAL HYSTERECTOMY 1979' Current Outpatient Medications Medication Sig Dispense Refill FLUoxetine (PROZAC) 40 mg capsule Take 1 capsule by mouth two times a day. 180 capsule 1 dulaglutide (TRULICITY) 0.75 mg/0.5 mL pen injector Inject 0.75 mg subcutaneously one time a week. E11.9. 12 Each 3 buPROPion XL (WELLBUTRIN XL) 300 mg 24 hr tablet Take 1 tablet by mouth once daily. 90 tablet 1 esomeprazole (NEXIUM) 40 mg capsule TAKE ONE CAPSULE BY MOUTH twice daily. 180 capsule 1 traZODone (DESYREL) 100 mg tablet Take 2 tablets by mouth daily at bedtime. 180 tablet 1 levothyroxine (SYNTHROID) 100 mcg tablet Take 1 tablet by mouth once daily. 90 tablet 3 atorvastatin (LIPITOR) 20 mg tablet Take 1 tablet by mouth daily at bedtime. For cholesterol. 90 tablet 1 famotidine (PEPCID) 20 mg tablet Take 1 tablet by mouth two times a day as needed (GERD). 180 tablet 1 lisinopril (ZESTRIL) 20 mg tablet Take 1 tablet by mouth once daily. 90 tablet 1 Blood-Glucose Meter,Continuous (FREESTYLE JAUN 3 READER) [facility] Dispense one reader kit. E11.9 1 Each 0 Blood-Glucose Sensor (FREESTYLE JAUN 3 SENSOR) guido CHANGE sensor every 14 days. USE FOR CONTINUOUS GLUCOSE MONITORING. E11.9 RISK FOR HYPOGLYCEMIA. 6 Each 3 Lancets Test blood sugar(s) 1 times daily and prn symptoms. Dx: Type 2 DM - Controlled E11.9 Insulin: No 100 Each 11 melatonin 10 mg tab Take 1 tablet by mouth at bedtime as needed for insomnia. Calcium Citrate 250 mg calcium tab Take 250 mg by mouth. ondansetron (ZOFRAN) 8 mg tablet Take 1 tablet by mouth every 8 hours as needed for nausea/vomiting. 20 tablet 1 coffee xt/phosphatidyl serine (NEURIVA ORIGINAL ORAL) Take 2 tablets by mouth once daily. APPLE CIDER VINEGAR ORAL Take 1 capsule by mouth once daily. Combined with the tumeric MULTI-VITAMIN ORAL Take 1 tablet by mouth once daily. Takes bariatric multivitamin daily No current facility-administered medications for this visit. ALLERGIES Allergen Reactions Vicodin [Hydrocodon* Itching Pt not sure if she has an allergy but states she wants it documented. FAMILY HISTORY Problem Relation Age of Onset other (polio) Mother Diabetes Father other (Squamous cell ca) Father other (renal cell ca) Father 1999 other (htn) Father other (Thyroid Cancer) Sister other (thyroid disease) Sister ca other (renal cell ca) Brother 2010 Obesity Paternal Grandmother Obesity Daughter Thyroid Daughter Diabetes Daughter Anesthesia Problems No Family History Social History Tobacco Use Smoking status: Former Current packs/day: 0.00 Average packs/day: 1.5 packs/day for 22.0 years (33.0 ttl pk-yrs) Types: Cigarettes Start date: 1967 Quit date: 1989 Years since quittin.9 Passive exposure: Past Smokeless tobacco: Never Vaping Use Vaping status: Never Used Substance Use Topics Alcohol use: Yes Comment: once or twice a month Drug use: No 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 MUSCULOSKELETAL: See HPI. PSYCH: Negative for sleep disturbance, mood disorder and recent psychosocial stressors. HEMATOLOGY Negative for prolonged bleeding, bruising easily, and swollen nodes. ENDOCRINE: Negative for cold or heat intolerance, polyuria, polydipsia and goiter. NEURO: negative for lightheadedness, dizziness, tremor, gait imbalance, syncope and seizures. RADIOGRAPHS: XR FOOT GENERAL 3V AP/LAT/OBL RIGHT Narrative: * * *Final Report* * * DATE OF EXAM: Feb 03 2024 1:18PM FINA [id number] - XR FOOT 3V AP/LAT/OBL RT / PROCEDURE REASON: [id number] * * * * Physician Interpretation * * * * PROCEDURE: Right foot INDICATION: Pain .right foot pain TECHNIQUE: XR FOOT 3V AP/LAT/OBL RT COMPARISON: Right 5th toe 09/12/2023 FINDINGS: There is a nondisplaced transverse fracture of the base of the 5th metatarsal. There appears to be some healing suggesting a subacute fracture. There is diffuse bone demineralization. Mild midfoot osteoarthrosis. Impression: IMPRESSION: Subacute-appearing 5th metatarsal base fracture Senior Laboratory Technician: [facility] Transcribe Date/Time: Feb 07 2024 7:55A Dictated by : ASPEN PERALES MD This examination was interpreted and the report reviewed and electronically signed by: ASPEN PERALES MD on Feb 07 2024 7:57AM EST OTHER STUDIES: Not applicable. PHYSICAL EXAM: There were no vitals taken for this visit. General: Appears stated age, well built, in no apparent distress. Psychiatric: Mood and affect appropriate. Alert and oriented x3. Musculoskeletal Exam: Gait and Station mild limp referrable to right foot particularly when first rising from a seated position. RIGHT FOOT & ANKLE EXAM: Inspection: No evidence of eythema, warmth, bruising, abrasions, scars, swelling, atrophy,masses or deformity about bilateral lower extremities. No evidence of surgical incisions. Range of Motion: Dorsiflexion/Plantarflexion WNL. Decreased eversion, inversion, and midfoot motion. Palpation: Positive tenderness to palpation: base of 5th MTT. Stability: Negative: Anterior drawer test, Talar tilt, Stress external rotation test, and Squeeze test. Negative Emma's, calf tenderness or palpable cords. Bilateral lower extremities show equal motion of the hips and knees. Normal strength, tone, and stability of the remainder of both lower extremities distally. Neurologic Exam: Intact sensation and reflexes in both lower extremities. Vascular: 2+ pedal pulses of both lower extremities. PROCEDURE: Not applicable IMPRESSION: 1. right foot fifth metatarsal base fracture in the metaphysis. She reports improvement in her symptoms since the time of her injury. She also states that she has seen a fiscal manager for this but would like to continue following here in [place]. PLAN: 1. Medication: Continue current medications. 2. Test(s)/Imaging/Referral(s): None. 3. Intervention: Continue weightbearing as tolerated in stiff soled shoe or cam walker 4. Follow-up for repeat clinical evaluation. . Curtis Ferguson MD I would like to thank you for the kind referral of . I appreciate the opportunity to be involved in her care. Please do not hesitate to call upon me if I may be of further assistance. documented in this encounter [facility] 02-03-2024 History of Present illness Narrative Radiology Service Progress Note PATIENT NAME: Mary Jane De Paz DATE OF SERVICE: February 03, 2024 TIME: 1:21 PM PATIENT IDENTITY VERIFICATION COMPLETED USING TWO (2) IDENTIFIERS: Name and Date of confirmed by patient verbally. FALL SCREENING: Has the patient had 2 falls in the last year or 1 fall with injury or currently using an Ambulatory Assistive Device (Walker, Cane, Wheelchair, Crutches, etc.)? No PATIENT GENDER DATA: Female. status: : No status: NO. PATIENT RELEVANT IMPLANT DATA REVIEWED: Not Applicable PATIENT PRESENTS WITH AN IMPLANTABLE OR ATTACHED DEAF/HARD OF HEARING SPECIALIST: No RADIOLOGY DEPARTMENT: General X-ray: Exam(s) Completed: Lower Extremity X-Ray(s): Foot, Right and Wt. Bearing PERIPHERAL IV DATA: Not applicable SIGNED BY: Yadi Rodriguez February 03, 2024 1:21 PM documented in this encounter [facility] 02-03-2024 Note HNO ID: [id number] Author: FOX RAINEY Tech Service: ? Author Type: Child Welfare Consultant Type: Progress Notes Filed: 02/03/2024 13:22 Note Text: Radiology Service Progress Note PATIENT NAME: Mary Jane De Paz DATE OF SERVICE: February 03, 2024 TIME: 1:21 PM PATIENT IDENTITY VERIFICATION COMPLETED USING TWO (2) IDENTIFIERS: Name and Date of confirmed by patient verbally. FALL SCREENING: Has the patient had 2 falls in the last year or 1 fall with injury or currently using an Ambulatory Assistive Device (Walker, Cane, Wheelchair, Crutches, etc.)? No PATIENT GENDER DATA: Female. status: : No status: NO. PATIENT RELEVANT IMPLANT DATA REVIEWED: Not Applicable PATIENT PRESENTS WITH AN IMPLANTABLE OR ATTACHED DEAF/HARD OF HEARING SPECIALIST: No RADIOLOGY DEPARTMENT: General X-ray: Exam(s) Completed: Lower Extremity X-Ray(s): Foot, Right and Wt. Bearing PERIPHERAL IV DATA: Not applicable SIGNED BY: Yadi Rodriguez February 03, 2024 1:[address] PM [address]04-2024 Note HNO ID: [id number] Author: ASTON RODRIGUEZ RN Service: ? Author Type: Registered Nurse Type: Progress Notes Filed: 01/25/2024 15:59 Note Text: [facility] NURSE - CHART REVIEW Provider [facility] Action Chart review 07/26/23 [facility] ED for nausea and vomiting with abdominal pain. Past h/o gastric bypass in 2019. IV Zofran, Fentanyl and IVF given. CT abd/pelvis. CBC showed a leukocytosis of 15.81 with anemia of 15.6. Her CMP showed baseline creatinine of 1.19 with a GFR 49. CT abdomen and pelvis showed status post Samina-en-Y procedure with obstruction of the Samina limb at the level of the JJ anastomosis indicative of small bowel obstruction. Patient did require multiple doses of pain medication however had no episodes of vomiting. Pt TT [facility] after bariatric surgery consulted. Pt identified by name and . Reason for Review: Payor request Patient Attributed To: QAE Payer: [employer] Chart Review For: Utilization: ED Total Patient High CostTotal Patient High Cost {HIGH COST:974616) Quality measure review Payor request for assistance Action Taken: Data submitted to payor Aston Rodriguez RN January 25, 2024 3:49 PM [facility] 01-25-2024 History of Present illness Narrative [facility] NURSE - CHART REVIEW Provider [facility] Action Chart review 07/26/23 [facility] ED for nausea and vomiting with abdominal pain. Past h/o gastric bypass in 2019. IV Zofran, Fentanyl and IVF given. CT abd/pelvis. CBC showed a leukocytosis of 15.81 with anemia of 15.6. Her CMP showed baseline creatinine of 1.19 with a GFR 49. CT abdomen and pelvis showed status post Samina-en-Y procedure with obstruction of the Samina limb at the level of the JJ anastomosis indicative of small bowel obstruction. Patient did require multiple doses of pain medication however had no episodes of vomiting. Pt TT [facility] after bariatric surgery consulted. Pt identified by name and . Reason for Review: Payor request Patient Attributed To: QAE Payer: [employer] Chart Review For: Utilization: ED Total Patient High CostTotal Patient High Cost {HIGH COST:098808) Quality measure review Payor request for assistance Action Taken: Data submitted to payor Aston Rodriguez RN January 25, 2024 3:49 PM documented in this encounter [facility] 01-25-2024 Note Patient Outreach ([facility]) MARY JANE DE PAZ ([id number]) 1950 F CPRE Date Time Provider Department 01/25/24 ASTON RODRIGUEZ [facility] During your visit today, we recorded the following information about you: Aston Rodriguez RN 01/25/2024 3:59 PM Signed [facility] [place] [facility] NURSE - CHART REVIEW Provider [facility] Action Chart review 07/26/23 [facility] ED for nausea and vomiting with abdominal pain. Past h/o gastric bypass in 2019. IV Zofran, Fentanyl and IVF given. CT abd/pelvis. CBC showed a leukocytosis of 15.81 with anemia of 15.6. Her CMP showed baseline creatinine of 1.19 with a GFR 49. CT abdomen and pelvis showed status post Samina-en-Y procedure with obstruction of the Samina limb at the level of the JJ anastomosis indicative of small bowel obstruction. Patient did require multiple doses of pain medication however had no episodes of vomiting. Pt TT [facility] after bariatric surgery consulted. Pt identified by name and . Reason for Review: Payor request Patient Attributed To: QAE Payer: [employer] Chart Review For: Utilization: ED Total Patient High CostTotal Patient High Cost {HIGH COST:408843) Quality measure review Payor request for assistance Action Taken: Data submitted to payor Aston Rodriguez RN January 25, 2024 3:49 PM Allergies As of Date: 01/25/2024 Noted Allergy Reaction VICODIN (HYDROCODONE-ACETAMINOPHE*09/29/19 10 9 - Itching Comments: Pt not sure if she has an allergy but states she wants it documented. Date Reviewed: 12/28/2023 Reviewed by: Sonam Arana, RT(R) - Fully Assessed Prescriptions as of 01/25/2024 - FLUoxetine (PROZAC) 40 mg capsule Take 1 capsule by mouth two times a day. - dulaglutide (TRULICITY) 0.75 mg/0.5 mL pen injector Inject 0.75 mg subcutaneously one time a week. E11.9. - buPROPion XL (WELLBUTRIN XL) 300 mg 24 hr tablet Take 1 tablet by mouth once daily. - esomeprazole (NEXIUM) 40 mg capsule TAKE ONE CAPSULE BY MOUTH twice daily. - traZODone (DESYREL) 100 mg tablet Take 2 tablets by mouth daily at bedtime. - levothyroxine (SYNTHROID) 100 mcg tablet Take 1 tablet by mouth once daily. - atorvastatin (LIPITOR) 20 mg tablet Take 1 tablet by mouth daily at bedtime. For cholesterol. - famotidine (PEPCID) 20 mg tablet Take 1 tablet by mouth two times a day as needed (GERD). - lisinopril (ZESTRIL) 20 mg tablet Take 1 tablet by mouth once daily. - Blood-Glucose Meter,Continuous (FREESTYLE JAUN 3 READER) [facility] Dispense one reader kit. E11.9 - Blood-Glucose Sensor (FREESTYLE JAUN 3 SENSOR) guido CHANGE sensor every 14 days. USE FOR CONTINUOUS GLUCOSE MONITORING. E11.9 RISK FOR HYPOGLYCEMIA. - Lancets Test blood sugar(s) 1 times daily and prn symptoms. Dx: Type 2 DM - Controlled E11.9 Insulin: No - melatonin 10 mg tab Take 1 tablet by mouth at bedtime as needed for insomnia. - Calcium Citrate 250 mg calcium tab Take 250 mg by mouth. - ondansetron (ZOFRAN) 8 mg tablet Take 1 tablet by mouth every 8 hours as needed for nausea/vomiting. - coffee xt/phosphatidyl serine (NEURIVA ORIGINAL ORAL) Take 2 tablets by mouth once daily. - APPLE CIDER VINEGAR ORAL Take 1 capsule by mouth once daily. Combined with the tumeric - lactose-reduced food (ADULT NUTRITIONAL SUPPLEMENT ORAL) (Discontinued) Take 1 capsule by mouth once daily. Tumeric - 2000mg capsule - MULTI-VITAMIN ORAL Take 1 tablet by mouth once daily. 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/05/2010 HTN (hypertension) [I10] 12/05/2011 10/14/2014 Hyperlipidemia [E78.5] 08/04/2012 Hypothyroid [E03.9] 11/28/2012 Generalized postprandial abdominal pain [R10.84]09/01/2013 Diarrhea [R19.7] 09/01/2013 08/30/2020 IBS (irritable bowel syndrome) [K58.9] 09/01/2013 Moderate episode of recurrent major depressive *04/28/2014 Essential hypertension [I10] 10/14/2014 MARIBEL (obstructive sleep apnea) [G47.33] 09/17/2015 Cognitive decline [R41.89] 01/10/2016 Other symbolic dysfunction [R48.8] 04/22/2016 Actinic keratoses [L57.0] 07/30/2016 GERD without esophagitis [K21.9] 10/09/2016 Encounter for screening colonoscopy [Z12.11] 10/09/2016 08/30/2020 Pain of foot [M79.673] 11/27/2016 08/30/2020 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9] 11/27/2016 Hypertensive kidney disease with stage 3 chroni*04/13/2017 Contusion of leg, left, sequela [S80.12XS] 04/30/2017 08/30/2020 De Quervain's tenosynovitis, left [M65.4] 01/09/2018 Post-operative state [Z98.890] 05/26/2018 08/30/2020 Joint stiffness of hand, left [M25.642] 06/22/2018 Metacarpophalangeal joint pain of left hand [M2*07/20/2018 Finge (more content not included)... [facility] 01-18-2024 Telephone encounter Note Patient active MyChart (last login 01/16). Patient notified via YouWeb message. Erum Rose MA [facility] 01-18-2024 Miscellaneous Notes Patient active YouWeb (last login 01/16). Patient notified via YouWeb message. Erum Rose MA Please let patient know her TSH is normal. Continue current synthyroid dose. documented in this encounter [facility] 01-18-2024 Telephone encounter Note Please let patient know her TSH is normal. Continue current synthyroid dose. [facility] 01-15-2024 Instructions Christine Morgan APRN.CNP - 01/15/2024 1:35 PM EDT Continue the same medications. Recheck in 6 months. documented in this encounter [facility] 01-15-2024 History of Present illness Narrative This is a 73 year old female who presents today with: Patient presents with: Recheck: 1 month follow up HISTORY OF PRESENT ILLNESS: Mary Jane De Paz is a 73 year old female. Patient presents with: Recheck: 1 month follow up Pt presents today to follow-up. At last visit, we increased the prozac. She was having some situational stress. She broke her foot. Daughter with some marriage issues. She thinks that the dosage change has helped. She would like to continue on this dose. She refers that her hands have been bothering her. Questions if she needs some therapy on her hands. Hard time with opening things and buttons. She also reports that she is concerned about the number of falls. Doesn't seem to be related to lightheadedness or dizziness. Will just fall (ie fell on bleachers). Currently has a broken foot and in a boot. PAST MEDICAL HISTORY: PAST MEDICAL HISTORY Diagnosis Date Allergic rhinitis Arthritis [facility] orthopedics, knee Asthma CKD (chronic kidney disease) 11/01/2018 Class 3 severe obesity with serious comorbidity and body mass index (BMI) of 40.0 to 44.9 in adult ([facility]) 08/19/2018 Coronary artery disease 10/28/[address] Salazar Fracture of right hip ([facility]) GERD (gastroesophageal reflux disease) History of transfusion HTN (hypertension) Hypothyroidism Mixed hyperlipidemia NIDDM (non-insulin dependent 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) MARIBEL on CPAP CPAP 9Cm Osteoarthritis of hip Renal lesion 01/15/2015 Suggest renal US every 1-2 years per PCP or nephro. Snoring Type 2 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 with hyperglycemia, with long-term current use of insulin ([facility]) 1999 PAST SURGICAL HISTORY Procedure Laterality Date ABDOMINAL SURGERY HX COLONOSCOPY 11/05/2016 Tammi- divertiuclosis, internal hemorrhoids, repeat in 5 years COLONOSCOPY 04/02/2022 repeat in 5 years due to reported prior history of polyps COSMETIC ASSESSMENT EGD 11/05/2016 Tammi- gastritis EGD 09/08/2018 /Gastritis EGD 04/02/2020 EGD 04/02/2022 EYE SURGERY HX Bilateral cataract extraction 2010's GASTRECTOMY,PART DISTAL;W/GASTRODUODENOSTO GASTRIC BYPASS HX 12/13/2018 Laparoscopic Samina-en-Y gastric bypass HIP SURGERY HX Screws replaced JOINT REPLACEMENT HX LAPAROSCOPY DIAGNOSTIC 07/26/2023 internal hernias and mesenteric adhesion OOPHORECTOMY PARTIAL OR TOTAL PAST SURGICAL HISTORY OF 2009 hemmroidectomy/sphincterectomy - Dr Nichole PAST SURGICAL HISTORY OF 2008 total left knee replacement PAST SURGICAL HISTORY OF 2003 partial right knee replacement PAST SURGICAL HISTORY OF 1990 total hysterectomy PAST SURGICAL HISTORY OF 2010 lDr Mansoor - Parmaeft elbow fracture - traumatic. radial head replacement PAST SURGICAL HISTORY OF Bilateral 2016 hand surgery PAST SURGICAL HISTORY OF Left RELEASE CONTRACTURE DEQUERVAINS S INSERT PINN METAL NTRL HIP Right 11/17/2021 SKIN BIOPSY HX TOTAL HIP REPLACEMENT Right TOTAL KNEE REPLACEMENT Right 09/15/2022 TUBAL LIGATION HX VAGINAL HYSTERECTOMY ALLERGIES Vicodin [Hydrocodone-Acetaminophen] MEDICATIONS Current Outpatient Medications Medication Sig FLUoxetine (PROZAC) 40 mg capsule Take 1 capsule by mouth two times a day. dulaglutide (TRULICITY) 0.75 mg/0.5 mL pen injector Inject 0.75 mg subcutaneously one time a week. E11.9. buPROPion XL (WELLBUTRIN XL) 300 mg 24 hr tablet Take 1 tablet by mouth once daily. esomeprazole (NEXIUM) 40 mg capsule TAKE ONE CAPSULE BY MOUTH twice daily. traZODone (DESYREL) 100 mg tablet Take 2 tablets by mouth daily at bedtime. levothyroxine (SYNTHROID) 100 mcg tablet Take 1 tablet by mouth once daily. atorvastatin (LIPITOR) 20 mg tablet Take 1 tablet by mouth daily at bedtime. For cholesterol. famotidine (PEPCID) 20 mg tablet Take 1 tablet by mouth two times a day as needed (GERD). lisinopril (ZESTRIL) 20 mg tablet Take 1 tablet by mouth once daily. Blood-Glucose Meter,Continuous (FREESTYLE JAUN 3 READER) [facility] Dispense one reader kit. E11.9 Blood-Glucose Sensor (FREESTYLE JAUN 3 SENSOR) guido CHANGE sensor every 14 days. USE FOR CONTINUOUS GLUCOSE MONITORING. E11.9 RISK FOR HYPOGLYCEMIA. Lancets Test blood sugar(s) 1 times daily and prn symptoms. Dx: Type 2 DM - Controlled E11.9 Insulin: No melatonin 10 mg tab Take 1 tablet by mouth at bedtime as needed for insomnia. Calcium Citrate 250 mg calcium tab Take 250 mg by mouth. ondansetron (ZOFRAN) 8 mg tablet Take 1 tablet by mouth every 8 hours as needed for nausea/vomiting. coffee xt/phosphatidyl serine (NEURIVA ORIGINAL ORAL) Take 2 tablets by mouth once daily. APPLE CIDER VINEGAR ORAL Take 1 capsule by mouth once daily. Combined with the tumeric MULTI-VITAMIN ORAL Take 1 tablet by mouth once daily. Takes bariatric multivitamin daily No current facility-administered medications for this visit. FAMILY HISTORY Problem Relation Age of Onset other (polio) Mother Diabetes Father other (Squamous cell ca) Father other (renal cell ca) Father 1999 other (htn) Father other (Thyroid Cancer) Sister other (thyroid disease) Sister ca other (renal cell ca) Brother 2011 Obesity Paternal Grandmother Obesity Daughter Thyroid Daughter Diabetes Daughter Anesthesia Problems No Family History Social History Tobacco Use Smoking status: Former Current packs/day: 0.00 Average packs/day: 1.5 packs/day for 22.0 years (33.0 ttl pk-yrs) Types: Cigarettes Start date: 1967 Quit date: 1989 Years since quittin.8 Passive exposure: Past Smokeless tobacco: Never Vaping Use Vaping status: Never Used Substance Use Topics Alcohol use: Yes Comment: once or twice a month Drug use: No EXAM: BP 140/88 Pulse 81 Resp 16 SpO2 95% PHYSICAL EXAM: General Appearance: Well appearing, alert, in no acute distress, well-hydrated, well nourished.. Skin: Skin color, texture, turgor normal, no suspicious rashes or lesions. Head: Normocephalic, no masses, lesions, tenderness or abnormalities. Lungs: Lungs clear to auscultation. No wheezing, rhonchi, rales.. Heart: RRR without murmur, gallop, or rubs. No ectopy. Neurologic: Gait normal. ASSESSMENT/PLAN: 1. Moderate episode of recurrent major depressive disorder (HCC) - ICD9: 296.32, ICD10: F33.1 (primary diagnosis) Improved with the increased dose of prozac. If no continued improvement/worsening, may need to consider adding adjunct, or changing to an snri. 2. Encounter for immunization - ICD9: V03.89, ICD10: Z23 - PFIZER-BIONTECH COVID-19 VACCINE AGE 12+ YR (COMIRNATY) 3. Pain in both hands - ICD9: 729.5, ICD10: M79.641, M79.642 Will refer to OT to help with hand pain and dexterity. - CONSULT TO DIRECTOR OF PUBLIC HEALTH 4. Falls - ICD9: V15.88, ICD10: R29.6 Agreeable to PT to eval/treat for balance/gait/safety. - CONSULT TO PHYSICAL THERAPY Discussed treatment plan and patient voices understanding. Patient's questions answered appropriately. Medications and potential side effects were discussed and patient voices understanding. Return to the office as scheduled or as needed for worsening/no improvement. Christine Morgan APRN.CD REACTOR OPERATOR documented in this encounter [facility] 01-09-2024 Telephone encounter Note Pt called and is notified of providers results and instructions. Pt voices understanding. Pt asked if she wanted to be put through to scheduling, but she said she would set up appointment. Dionna Vicente RN [facility] 01-09-2024 Miscellaneous Notes Pt called and is notified of providers results and instructions. Pt voices understanding. Pt asked if she wanted to be put through to scheduling, but she said she would set up appointment. Dionna Vicente RN Can please let patient know that I received her CT scan. There was no change in the pancreatic cyst. She will need to repeat the imaging in 6 months. The order is in -- it just needs to be scheduled. Christine Morgan APRN.CNP documented in this encounter [facility] 01-08-2024 Telephone encounter Note Can please let patient know that I received her CT scan. There was no change in the pancreatic cyst. She will need to repeat the imaging in 6 months. The order is in -- it just needs to be scheduled. Christine Morgan APRN.CNP [facility] 12-28-2023 History of Present illness Narrative Radiology Service Progress Note DATE OF SERVICE: December 28, 2023 TIME: 3:18 PM PATIENT IDENTITY VERIFICATION COMPLETED USING TWO (2) STANDARD IDENTIFIERS: Name and Date of confirmed by patient verbally. FALL SCREENING: Has the patient had 2 falls in the last year or 1 fall with injury or currently using an Ambulatory Assistive Device (Walker, Cane, Wheelchair, Crutches, etc.)? No PATIENT GENDER DATA: Female. status: : No status: NO. PATIENT RELEVANT IMPLANT DATA REVIEWED: Yes PATIENT PRESENTS WITH AN IMPLANTABLE OR ATTACHED DEAF/HARD OF HEARING SPECIALIST: No ALLERGIES: Reviewed and unchanged CONTRAST ALLERGY: NO. EXAM: CT -CONTRAST INDUCED NEPHROPATHY RISK FACTORS: Patient age > 60 years CREATININE: Creatinine Date Value Ref Range Status 12/28/2023 1.06 (H) 0.58 - 0.96 mg/dL Final 07/28/2023 1.19 (H) 0.58 - 0.96 mg/dL Final 07/27/2023 1.19 (H) 0.58 - 0.96 mg/dL Final Estimated Glomerular Filtration Rate Date Value Ref Range Status 12/28/2023 56 (L) >=60 mL/min/1.73m Final Comment: Estimated Glomerular Filtration Rate (eGFR) is calculated using the 2020 CKD-EPI creatinine equation. This equation utilizes serum creatinine, sex, and age as parameters. The creatinine assay has traceable calibration to isotope dilution-mass spectrometry. Refer to KDIGO guidelines for clinical interpretation. In patients with unstable renal function, e.g. those with acute kidney injury, the eGFR may not accurately reflect actual GFR. eGFR- Date Value Ref Range Status 02/27/2021 60 Final P.O.C.T. RESULTS: POC done: Yes, See Lab Tab December 28, 2023 TREATMENT: N/A PERIPHERAL IV DATA: Ambulatory: A peripheral IV was started in the Left antecubital site with a Angio cath: 18 gauge. RADIOLOGY DEPARTMENT: CT; Exam(s) Completed: Pancreas SIGNATURE: RT Imelda(R) PATIENT NAME: Mary Jane De Paz DATE: December 28, 2023 TIME: 3:18 PM documented in this encounter [facility] 12-25-2023 History of Present illness Narrative CDM Telephonic Outreach Provider Action/FYI -ckd, dm, htn Contacted for: Routine Telephonic Outreach Contact made with patient: Yes Patient identified by name and date of . Discussed care with patient Are you experiencing any new or worsening symptoms you need to talk about today? No Disease Specific Pt dealing w/ multiple stressors at the present time w/ various family members having multiple health issues; no CDM concerns for pt; continues to have bilateral rib pain for recent falls and using a cane and wearing walking boot for fractured foot following her second fall (1st fall: Missed step coming up step, fell and hurt her left ribs; 2md fall: Next day, walked the dogs, and rolled her ankle/fell and broke her foot/hurt her right ribs) Was seen by pcp on 12/15/23 w/ next f/u appt 01/15/24 Based on payroll director, the following disposition is advised: No symptoms or symptoms present, not severe. Routed to: No Action Needed VIDA Education Provided this Outreach: No Jase Dumont RN December 25, 2023 1:40 PM documented in this encounter [facility] 12-16-2023 Miscellaneous Notes Patient calling asking to have wheel chair order, office notes, insurance card, face sheet faxed to [facility] at [phone]. Printed items and faxed as requested. documented in this encounter [facility] 12-16-2023 Telephone encounter Note Patient calling asking to have wheel chair order, office notes, insurance card, face sheet faxed to [facility] at [phone]. Printed items and faxed as requested. [facility] 12-15-2023 Telephone encounter Note Called patient and scheduled as directed [facility] 12-15-2023 Miscellaneous Notes Called patient and scheduled as directed Call to pt and notified her of message below. Pt declined being transferred as she was on the phone with [employer] and needed to get off the phone. Asking for someone to call her tomorrow to help assist in scheduling. Jeannie Ulloa MA Can please let patient know that I put an order in for a CT to follow-up on the pancreatic cyst. (Since she cannot have an MRI). Please help schedule. Christine Morgan APRN.CNP documented in this encounter [facility] 12-15-2023 Telephone encounter Note Call to pt and notified her of message below. Pt declined being transferred as she was on the phone with [employer] and needed to get off the phone. Asking for someone to call her tomorrow to help assist in scheduling. Jeannie Ulloa MA [facility] 12-15-2023 Telephone encounter Note Can please let patient know that I put an order in for a CT to follow-up on the pancreatic cyst. (Since she cannot have an MRI). Please help schedule. Christine Morgan APRN.CNP [facility] 12-15-2023 Instructions Christine Morgan APRN.CNP - 12/15/2023 2:38 PM EDT Take the wheelchair order to the [facility]. Schedule w/ podiatry. Get the labwork, as planned. Increase the prozac to 40 mg twice daily. Recheck in 1 month. documented in this encounter [facility] 12-15-2023 History of Present illness Narrative This is a 73 year old female who presents today with: Patient presents with: 6 Month Exam ER F/U: [facility] 12/13 dx: foot pain HISTORY OF PRESENT ILLNESS: Mary Jane De Paz is a 73 year old female. Patient presents with: 6 Month Exam ER F/U: [facility] 12/13 dx: foot pain Pt presents today for 6 month follow-up. Incidentally, she was also in the ER on 12/12 and 12/13 with a foot fracture. She has a fx of her 5th metatarsal and of her 5th toe. Wasn't able to bear weight on it. In the emergency room, case was discussed with podiatry and patient was put in a boot arthrosis. She was made nonweightbearing on her right foot. She should continue to use her walker instead of crutches. She can continue ice and elevation. She was to contact podiatry to schedule follow-up. Refers that she has fallen three times in the past week. No syncope. Sometimes feet just go faster than her brain. Tripped at least once. Fell down walking down a grassy incline once. HTN: Patient is compliant with meds Yes Monitors bp at home: No. Denies side effects: No. Chest pain: No. Dyspnea: a little bit. Currently with rib pain. Edema: currently w/ fx foot. . Palpitations: No. Syncope: No. Headache: last week had some headaches. Dizziness: No. HYPERLIPIDEMIA: Patient is taking medications: Yes. Patient is watching diet: No. Patient denies myalgias: gets some body/back aches. Patient denies gi upset: No HYPOTHYROID: Patient is compliant with medications: Yes Patient has changes in energy: hasn't been doing anything. Patient has changes in hair or skin: No. Taking biotin. Patient has temperature intolerance: more cold than hot. Patient has weight changes: No DM: Reports overall feeling well. Medication side effects: no Home sugar checks: once in a while. Hypoglycemic spells: Yes. During the night or before a meal if eating later. Refers sugars are either 235 or 54. Watching diet: No. Unexpected weight loss: No. Polyuria, polydipsia: Yes. Has been getting real dry the last week or so. Vision Changes: Yes -- just got new glasses. Foot lesions or numbness or pain: Yes -- has a recently broken foot. Wakes up a lot overnight. Refers that she is taking trazodone. Feels like depression medication needs increased. Will have days in a row that she feels sad. Now more depressed and frustrated because of breaking her foot. PAST MEDICAL HISTORY: PAST MEDICAL HISTORY Diagnosis Date Allergic rhinitis Arthritis [facility] orthopedics, knee Asthma CKD (chronic kidney disease) 11/01/2018 Class 3 severe obesity with serious comorbidity and body mass index (BMI) of 40.0 to 44.9 in adult ([facility]) 08/19/2018 Coronary artery disease 10/28/[address] Salazar Fracture of right hip ([facility]) GERD (gastroesophageal reflux disease) History of transfusion HTN (hypertension) Hypothyroidism Mixed hyperlipidemia NIDDM (non-insulin dependent 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) MARIBEL on CPAP CPAP 9Cm Osteoarthritis of hip Renal lesion 01/15/2015 Suggest renal US every 1-2 years per PCP or nephro. Snoring Type 2 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 with hyperglycemia, with long-term current use of insulin ([facility]) 1999 PAST SURGICAL HISTORY Procedure Laterality Date ABDOMINAL SURGERY HX COLONOSCOPY 11/05/2016 Tammi- divertiuclosis, internal hemorrhoids, repeat in 5 years COLONOSCOPY 04/02/2022 repeat in 5 years due to reported prior history of polyps COSMETIC ASSESSMENT EGD 11/05/2016 Tammi- gastritis EGD 09/08/2018 /Gastritis EGD 04/02/2020 EGD 04/02/2022 EYE SURGERY HX Bilateral cataract extraction 2010's GASTRECTOMY,PART DISTAL;W/GASTRODUODENOSTO GASTRIC BYPASS HX 12/13/2018 Laparoscopic Samina-en-Y gastric bypass HIP SURGERY HX Screws replaced JOINT REPLACEMENT HX LAPAROSCOPY DIAGNOSTIC 07/26/2023 internal hernias and mesenteric adhesion OOPHORECTOMY PARTIAL OR TOTAL PAST SURGICAL HISTORY OF 2009 hemmroidectomy/sphincterectomy - Dr Nichole PAST SURGICAL HISTORY OF 2008 total left knee replacement PAST SURGICAL HISTORY OF 2003 partial right knee replacement PAST SURGICAL HISTORY OF 1990 total hysterectomy PAST SURGICAL HISTORY OF 2010 lDr Mansoor - [place] elbow fracture - traumatic. radial head replacement PAST SURGICAL HISTORY OF Bilateral 2016 hand surgery PAST SURGICAL HISTORY OF Left RELEASE CONTRACTURE DEQUERVAINS S INSERT PINN METAL NTRL HIP Right 11/17/2021 SKIN BIOPSY HX TOTAL HIP REPLACEMENT Right TOTAL KNEE REPLACEMENT Right 09/15/2022 TUBAL LIGATION HX VAGINAL HYSTERECTOMY ALLERGIES Vicodin [Hydrocodone-Acetaminophen] MEDICATIONS Current Outpatient Medications Medication Sig FLUoxetine (PROZAC) 20 mg capsule Take 3 capsules by mouth once daily. dulaglutide (TRULICITY) 0.75 mg/0.5 mL pen injector Inject 0.75 mg subcutaneously one time a week. E11.9. buPROPion XL (WELLBUTRIN XL) 300 mg 24 hr tablet Take 1 tablet by mouth once daily. esomeprazole (NEXIUM) 40 mg capsule TAKE ONE CAPSULE BY MOUTH twice daily. glimepiride (AMARYL) 2 mg tablet Take 1 mg by mouth. irbesartan (AVAPRO) 150 mg tablet Take 1 tablet by mouth every evening. (Patient not taking: Reported on 10/13/2023) turmeric root extract 500 mg cap Take by mouth. traZODone (DESYREL) 100 mg tablet Take 2 tablets by mouth daily at bedtime. levothyroxine (SYNTHROID) 100 mcg tablet Take 1 tablet by mouth once daily. atorvastatin (LIPITOR) 20 mg tablet Take 1 tablet by mouth daily at bedtime. For cholesterol. famotidine (PEPCID) 20 mg tablet Take 1 tablet by mouth two times a day as needed (GERD). lisinopril (ZESTRIL) 20 mg tablet Take 1 tablet by mouth once daily. Blood-Glucose Meter,Continuous (FREESTYLE JAUN 3 READER) [facility] Dispense one reader kit. E11.9 Blood-Glucose Sensor (FREESTYLE JAUN 3 SENSOR) guido CHANGE sensor every 14 days. USE FOR CONTINUOUS GLUCOSE MONITORING. E11.9 RISK FOR HYPOGLYCEMIA. Lancets Test blood sugar(s) 1 times daily and prn symptoms. Dx: Type 2 DM - Controlled E11.9 Insulin: No melatonin 10 mg tab Take 1 tablet by mouth at bedtime as needed for insomnia. Calcium Citrate 250 mg calcium tab Take 250 mg by mouth. ondansetron (ZOFRAN) 8 mg tablet Take 1 tablet by mouth every 8 hours as needed for nausea/vomiting. coffee xt/phosphatidyl serine (NEURIVA ORIGINAL ORAL) Take 2 tablets by mouth once daily. APPLE CIDER VINEGAR ORAL Take 1 capsule by mouth once daily. Combined with the tumeric OTC NUTRITIONAL SUPPLEMENT Take 1 capsule by mouth once daily. Tumeric - 2000 mg capsule MULTI-VITAMIN ORAL Take 1 tablet by mouth once daily. Takes bariatric multivitamin daily No current facility-administered medications for this visit. FAMILY HISTORY Problem Relation Age of Onset other (polio) Mother Diabetes Father other (Squamous cell ca) Father other (renal cell ca) Father 1999 other (htn) Father other (Thyroid Cancer) Sister other (thyroid disease) Sister ca other (renal cell ca) Brother 2010 Obesity Paternal Grandmother Obesity Daughter Thyroid Daughter Diabetes Daughter Anesthesia Problems No Family History Social History Tobacco Use Smoking status: Former Current packs/day: 0.00 Average packs/day: 1.5 packs/day for 22.0 years (33.0 ttl pk-yrs) Types: Cigarettes Start date: 1967 Quit date: 1989 Years since quittin.7 Passive exposure: Past Smokeless tobacco: Never Vaping Use Vaping status: Never Used Substance Use Topics Alcohol use: Yes Comment: once or twice a month Drug use: No EXAM: BP 122/82 Pulse 95 Resp 16 PHYSICAL EXAM: General Appearance: Well appearing, alert, in no acute distress, well-hydrated, well nourished.. Skin: Skin color, texture, turgor normal, no suspicious rashes or lesions. Head: Normocephalic, no masses, lesions, tenderness or abnormalities. Eyes: Anicteric sclera. Extraocular movements are intact. . Lungs: Lungs clear to auscultation. No wheezing, rhonchi, rales.. Heart: RRR without murmur, gallop, or rubs. No ectopy. Neurologic: Alert and oriented x 3. ASSESSMENT/PLAN: 1. Closed fracture of right foot with routine healing, subsequent encounter - ICD9: V54.16, ICD10: S92.901D (primary diagnosis) Encouraged follow-up with podiatry. Prescription for wheelchair given. Patient is currently nonweightbearing. Elderly and is trying to roll her around the home and in office chair that has no arms or brakes. She has been using the Percocet. She cannot use NSAIDs due to gastric bypass history. Will go ahead and refill Percocet for pain management. Continue to ice and prop. - STANDARD WHEELCHAIR - CONSULT TO PODIATRY - OXYCODONE-ACETAMINOPHEN 5 MG-325 MG TABLET 2. Hypothyroidism, unspecified type - ICD9: 244.9, ICD10: E03.9 Recheck with next lab draw. - THYROID STIMULATING HORMONE 3. Encounter for immunization - ICD9: V03.89, ICD10: Z23 - INFLUENZA VACCINE, PRSV FREE, AGE 65+ YR, HIGH DOSE, TRIVALENT (FLUZONE HIGH-DOSE) 4. Moderate episode of recurrent major depressive disorder (HCC) - ICD9: 296.32, ICD10: F33.1 Will go ahead and increase to 40 mg twice daily. - FLUOXETINE 40 MG CAPSULE 5. Pancreatic cyst - ICD9: 577.2, ICD10: K86.2 Patient previously was ordered an MRI. However subsequent to that MRI, she was ordered an MRI from Ortho. Upon further research, MRI is not able to be completed safely except on patient's head due to spine stimulator. Therefore follow-up imaging was never completed of the pancreatic cyst. Will go ahead and get CT to follow-up. - CT PANCREAS W IVCON - IV CONTRAST (RADIOLOGY PROCEDURE) - CREATININE BLD 6. Essential hypertension - ICD9: 401.9, ICD10: I10 - Controlled - Continue current medications - Recommend home blood pressure monitoring, to bring results to next visit - Encouraged sodium restriction, DASH or Mediterranean diet - Recommend regular aerobic exercise 7. Mixed hyperlipidemia - ICD9: 272.2, ICD10: E78.2 - Controlled - Continue current medications 8. 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, unspecified whether longterm insulin use (HCC) - ICD9: 250.00, ICD10: E11.9 - Controlled -Continue per endocrinology. Discussed treatment plan and patient voices understanding. Patient's questions answered appropriately. Medications and potential side effects were discussed and patient voices understanding. Return to the office as scheduled or as needed for worsening/no improvement. Christine Morgan APRN.JOSEFINA documented in this encounter [facility] 12-01-2023 History of Present illness Narrative [facility] Telephonic Outreach Provider Action/FYI -ckd, dm, htn Contacted for: Routine Telephonic Outreach Contact made with patient: Yes Patient identified by name and date of . Discussed care with patient Are you experiencing any new or worsening symptoms you need to talk about today? No Disease Specific Do you have new or worsening shortness of breath with activity? No No concerns, still gets some vertigo as mentioned in last outreach call, but overall feels there has been some improvement. Still okay waiting until January appt w/ pcp to discuss if sx still present at that time Based on payroll director, the following disposition is advised: No symptoms or symptoms present, not severe. Routed to: No Action Needed VIDA Education Provided this Outreach: No Jase Dumont RN December 01, 2023 2:24 PM documented in this encounter [facility] 11-30-2023 Telephone encounter Note Updated medication list. [facility] 11-30-2023 Miscellaneous Notes Updated medication list. documented in this encounter [facility] 11-26-2023 Note Addended by: CHRISTINE BLACK on: 11/26/2023 04:18 PM Modules accepted: Orders [facility] 11-26-2023 Miscellaneous Notes Addended by: CHRISTINE BLACK on: 11/26/2023 04:18 PM Modules accepted: Orders RX for Prozac sent. Is she still taking venlafaxine that is on her list? The two medications are quite similar? Addended by: JEANNIE ULLOA on: 11/26/2023 03:23 PM Modules accepted: Orders Pt's Rx was sent to [facility] and not [facility]. Can we cancel the Rx for [facility] and send into correct Pharmacy. Jeannie Ulloa MA Prozac renewed documented in this encounter [facility] 11-26-2023 Telephone encounter Note RX for Prozac sent. Is she still taking venlafaxine that is on her list? The two medications are quite similar? [facility] 11-26-2023 Note Addended by: JEANNIE ULLOA on: 11/26/2023 03:23 PM Modules accepted: Orders [facility] 11-26-2023 Telephone encounter Note Pt's Rx was sent to [facility] and not [facility]. Can we cancel the Rx for [facility] and send into correct Pharmacy. Jeannie Ulloa MA [facility] 11-26-2023 Telephone encounter Note Prozac renewed [facility] 11-23-2023 History of Present illness Narrative [facility] N[facility]SE - CHART REVIEW Provider FYI PCC Action presented to non [facility] ED following near syncopal episode. Documentation of encounter indicates post surgical hematoma with blood loss anemia and acute kidney injury. Transfused 1 unit blood in ED then transferred to [facility]. Continued treatment for blood loss and CHAVEZ. 4 day LOS Pt identified by name and . Reason for Review: Payor request Patient Attributed To: PATSY Payer: MICHEAL Chart Review For: Utilization: ED Admission Total Patient High CostTotal Patient High Cost {HIGH COST:197819) Quality measure review Payor request for assistance Action Taken: Data submitted to payor Aminta Rodrigues RN November 23, 2023 10:04 AM documented in this encounter [facility] 11-03-2023 History of Present illness Narrative CDM Telephonic Outreach Provider Action/FYI -ckd, dm, htn ADLs/fall risk/SDOH updated 11/03/23 Pt has noticed some vertigo when turning her head quickly or change in position; feels her balance is off; plans to discuss w/ pcp; did not wish to try to be seen prior to her January appt; will reassess at next outreach call and look to have pt seen sooner if sx worsen. Pt in agreement Contacted for: Routine Telephonic Outreach Contact made with patient: Yes Patient identified by name and date of . Discussed care with patient Are you experiencing any new or worsening symptoms you need to talk about today? No Disease Specific Do you check your blood pressure at home? No Do you have new or worsening shortness of breath with activity? No Do you feel like you are dehydrated for any reason, including not being able to eat or drink normally, or having less urine/much darker urine than normal for you? No Do you check your daily weight at home? Yes, Have you noticed a sudden gain in weight greater than three pounds in a day or three pounds in a week? No Based on payroll director, the following disposition is advised: No symptoms or symptoms present, not severe. Routed to: No Action Needed VIDA Education Provided this Outreach: No Jase Dumont RN November 03, 2023 12:01 PM documented in this encounter [facility] 10-13-2023 Instructions Juan Jose Keys DO - 10/13/2023 10:55 AM EDT Post injection Instructions: You received a steroid injection today. Please keep any physical therapy appointments and schedule a follow-up appointment as recommended. Benefits: Injections help with PAIN and allow you to better participate in daily activities and exercise/therapy. Injections do NOT cause healing of arthritis or injuries. As pain is better controlled, this will reduce the need to use anti-inflammatories by mouth and/or if you are not able to take an anti-inflammatory due to other reasons (you have been advised to avoid or they are contra-indicated). Activity recommendations: For the first 24 hours after the injection, keep the area clean and dry. It is okay to shower but no soaking in a tub or swimming. Schedule the injection when you have 1-2 days to rest afterwards. Ideally, no strenuous or vigorous activities (such as running or heavy lifting) for 3 days after the injection. Therefore, plan ahead to have any exercise or errands completed before the injection so you can relax afterwards. After the first week, you can gradually resume normal activities. If you do experience a significant decrease in pain, be careful not to do too much too soon. The borges is gradual resumption of activities. What to expect: The injection contains lidocaine (which numbs the joint) and a steroid (which decreases inflammation). You may have pain relief within hours (sometimes immediate) due to the lidocaine. The steroid can take a few days, up to a few weeks, to reach the full effect, so please be patient! The numbing medicine you received will wear off in 4-6 hours. It is also possible to have a slight increase in symptoms over the first few days. In order to prevent that, please take some anti-inflammatory (prescription strength, or Ibuprofen, or naprosyn) for the next three to five days. You may also need to ice the injected area at LEAST three times a day as instructed below. How long will an injection last? The length of response to an injection is variable. Patients have experienced relief anywhere from a few weeks to a few years. The injection will decrease the inflammation and the pain will return if/when the inflammation returns. Side effects: - There is a risk of bleeding and infection with any injection (including vaccinations). Precautions are taken to reduce this risk greatly. - If you have diabetes, the steroid component may raise your blood sugars significantly. Your doctor may postpone or recommend other therapies based on your blood sugar control. - Allergic reactions to the lidocaine or steroid can occur. If you have a known allergy to lidocaine or any steroid, please notify your doctor. PLEASE CALL YOUR DOCTOR OR PROCEED TO EMERGENCY ROOM IF: - You develop fevers/chills, redness or warmth at area of injection - You develop rash, difficulty breathing - You have significant worsening of your pain that is not controlled with the above suggestions ICING INSTRUCTIONS For an ice bag, apply for 15-20 minutes at least three times a day, more if needed. Ice in a Ziplog/plastic bag or even a bag of frozen peas/corn will work (and is reusable). You can also use Yael dish liquid frozen in a ziploc bag. Use a large bottle, dump it in a gallon ziploc bag, zip that and place it inside another ziploc bag. Place in freezer and let it harden to a Play-mehreen like consistency. Mold it around the part to be iced and use an lor wrap or towel to keep in place. Refreeze and use when needed. For ice massage, fill an empty paper or styrofoam cup nearly full with water, place them in the freezer and let them freeze completely. Tear the top off of the cup leaving the bottom part of the cup intact so you can hold onto it. Rub the ice over the affected area for about [address] to do this is in the shower or the bath (with affected area out of the water) for the contrast of hot water, but it can be done outside of the shower. MEDICATION INSTRUCTIONS Aleve (Naproxen sodium), 1-2 pills, up to twice a day, with food, for 5-10 days, then as needed thereafter. OR Ibuprofen (Motrin), 3-4 pills, up to three times a day, with food, for 5-10 days, then as needed thereafter. Do not take these medications if you have been instructed not to in the past or if you are taking another anti-inflammatory (such as Celebrex, Naprosyn, Relafen, Voltaren, Mobic, Anaprox, etc). Do not take if you have a history of bleeding ulcers in your stomach. If this should start to upset your stomach, stop taking it. Should you have any questions, you may want to ask your pharmacist or give our office a call. AND/OR Tylenol (acetaminophen), three 325mg pills, or two 500mg pills, up to four times a day, for 5-10 days, then as needed thereafter. Do not take this if you have liver problems or have been advised to not take Tylenol in the past. Be careful when combining with other pain relievers as several pain relievers have acetaminophen in them. Should you have any questions, you may want to ask your pharmacist or give our office a call. documented in this encounter [facility] 10-13-2023 History of Present illness Narrative Associated Order(s): Medium Joint Arthro/Inj: R ulnocarpal Post-Procedure Diagnose(s): Pain of ulnar side of wrist Mary Jane De Paz is here today at request of Dr.Bradley Kerr specifically for consultation of my opinion in regards to the chief complaint listed below. Correspondence will be shared today via the [employer] electronic health record or through regular mail, where applicable. CHIEF COMPLAINT: Mary Jane De Paz is a 73 year old female who presents today for new evaluation of right wrist pain, referral for injection therapy. HISTORY OF PRESENT ILLNESS: PAIN EVALUATION 10/13/2023 1041 Pain Level: 6 Pain Location: Wrist-Right Description: Aching Duration Amount of Time: 1 Duration Units: Years Frequency: Intermittent Intervention/Comfort measure: Reposition I personally reviewed previous notes by the referring physician regarding this complaint. Ongoing for 1 year without known injury. She did have a fracture in the past to this wrist. She has had landmark-guided injections previously with Dr. Kerr and his team. SOCIAL HISTORY: Tobacco Use: 1.5 packs/day, for 22 years. Quit 03/23/1989. Types: Cigarettes PHYSICAL EXAMINATION: Vitals: Ht 5' 2 (1.58m) Wt 135 lb (61.2kg) BMI 24.69 kg/(m^2). Body Habitus:well nourished and no acute distress Orientation: Normal: Oriented to person, place and time Psych: normal Skin: Color, texture, turgor normal. No rashes or lesions MSK Specific Exam: Swelling of the ulnar aspect of the right wrist TTP over the ulnocarpal joint, primarily at the TFCC No significant tenderness at the ECU, no subluxation Limited wrist extension, flexion, and ulnar movements 4+/5 strength in ulnar deviation + discomfort with TFCC testing CLINICAL IMPRESSION / ASSESSMENT: (M25.539) Pain of ulnar side of wrist (primary encounter diagnosis) RECOMMENDATION / PLAN: Injection performed as detailed below in PROCEDURE NOTE. Post-injection instructions provided. Follow up: Per consulting physician. Medium Joint Arthro/Inj: R ulnocarpal Informed Consent Consent Obtained: Verbal [place] Protocol A moment to CARE was completed. SIGN IN Personnel directly involved with the procedure wore the appropriate PPE. Patient/Surrogate Stated/Verified: Patient name, Date of , Relevant allergies and Intended procedure TIME OUT Intended patient and procedure match the source document(s). Relevant labs, photos, and/or imaging studies have been reviewed. Correct side/site marked and visible. Medications required for procedure verified. 10/13/2023 11:11 AM The procedure site was prepped in the usual sterile fashion. Details:Musculoskeletal ultrasound was utilized to successfully localize placement of the injection needle at the appropriate site. Ultrasound images demonstrating local vasculature and demonstrating injection of solution were saved. Medications: 6 mg betamethasone acetate-betamethasone sodium phosphate 6 mg/mL Anesthetics: 0.5 mL lidocaine (PF) 10 mg/mL (1 %) Outcome: tolerated well, no immediate complications Post-injection instructions were reviewed with the patient and the patient voiced understanding of these instructions. Juan Jose Keys DO Sports Medicine Physician documented in this encounter [facility] 10-12-2023 Telephone encounter Note Pt returned the call and rescheduled to 02/09 with Christine. [facility] 10-12-2023 Miscellaneous Notes Pt returned the call and rescheduled to 02/09 with Christine. documented in this encounter [facility] 10-12-2023 Telephone encounter Note PT aware of x-ray results states understanding of all. Homa Locke LPN [facility] 10-12-2023 Miscellaneous Notes PT aware of x-ray results states understanding of all. Homa Locke LPN ----- Message from Katerine Rodas Jr., APRN.CD REACTOR OPERATOR sent at 10/12/2023 8:51 AM EDT ----- RADIOLOGY IMPRESSION: No acute fractures identified. Patient called, no answer, message left to return call. documented in this encounter [facility] 10-12-2023 Telephone encounter Note ----- Message from Katerine Rodas Jr., APRN.CD REACTOR OPERATOR sent at 10/12/2023 8:51 AM EDT ----- RADIOLOGY IMPRESSION: No acute fractures identified. Patient called, no answer, message left to return call. [facility] 10-11-2023 Instructions Katerine Rodas Jr., APRN.CNP - 10/11/2023 5:51 PM EDT Follow up with PCP if needed. Got to emergency department for severe pain or further symptoms documented in this encounter [facility] 10-11-2023 History of Present illness Narrative Mary Jane De Paz is a 73 year old female who presents with Fall (Fell yesterday rt hp pain - had a hip replacement 03/2022//Rt rib pain) 73-year-old female presents today with complaint of right rib pain and right hip pain. Patient relates she fell yesterday at 1 PM. She states she was walking outside on the sidewalk and fell. Patient is unsure how she fell. Patient denies hitting her head or any loss of consciousness. She presents today for further evaluation. Patient able to ambulate without using an social research assistant device such as a cane, crutches, or wheelchair. Patient adds that she has occasional dizziness. She is unsure if this contributed to her falling. The history is provided by the patient. Fall Pertinent negatives include no fever and no headaches. PAST MEDICAL HISTORY Diagnosis Date Allergic rhinitis Arthritis [facility], knee Asthma CKD (chronic kidney disease) 11/01/2018 Class 3 severe obesity with serious comorbidity and body mass index (BMI) of 40.0 to 44.9 in adult ([facility]) 08/19/2018 Coronary artery disease 10/28/[address] Salazar Fracture of right hip ([facility]) GERD (gastroesophageal reflux disease) History of transfusion HTN (hypertension) Hypothyroidism Mixed hyperlipidemia NIDDM (non-insulin dependent 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) MARIBEL on CPAP CPAP 9Cm Osteoarthritis of hip Renal lesion 01/15/2015 Suggest renal US every 1-2 years per PCP or nephro. Snoring Type 2 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 with hyperglycemia, with long-term current use of insulin ([facility]) 1999 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 Hypertensive kidney disease with stage 3 chronic kidney disease ([facility]) De Quervain's Tenosynovitis, Left Joint Stiffness of Hand, Left Metacarpophalangeal Joint Pain of Left Hand Finger Pain, Left Asthma Stage 3 Chronic Kidney Disease ([facility]) H/O Gastric Bypass Closed Displaced Fracture of Right Femoral Neck ([facility]) Hyponatremia Hip Fracture Requiring Operative Repair, Right, Closed, Initial Encounter ([facility]) Type 2 Diabetes Mellitus ([facility]) Renal Lesion History of Total Hip Replacement, Right History of Total Knee Replacement, Left Coronary Artery Disease Involving [place] Coronary Artery of [place] Heart Without Angina Pectoris Uti (Urinary Tract Infection) Pancreatic Cyst Sbo (Small Bowel Obstruction) ([facility]) Current Outpatient Medications Medication Sig Dispense Refill buPROPion XL (WELLBUTRIN XL) 300 mg 24 hr tablet Take 1 tablet by mouth once daily. 90 tablet 1 esomeprazole (NEXIUM) 40 mg capsule TAKE ONE CAPSULE BY MOUTH twice daily. 180 capsule 1 irbesartan (AVAPRO) 150 mg tablet Take 1 tablet by mouth every evening. turmeric root extract 500 mg cap Take by mouth. venlafaxine ER (EFFEXOR XR) 150 mg 24 hr capsule Take 1 capsule by mouth once daily. traZODone (DESYREL) 100 mg tablet Take 2 tablets by mouth daily at bedtime. 180 tablet 1 levothyroxine (SYNTHROID) 100 mcg tablet Take 1 tablet by mouth once daily. 90 tablet 3 atorvastatin (LIPITOR) 20 mg tablet Take 1 tablet by mouth daily at bedtime. For cholesterol. 90 tablet 1 famotidine (PEPCID) 20 mg tablet Take 1 tablet by mouth two times a day as needed (GERD). 180 tablet 1 lisinopril (ZESTRIL) 20 mg tablet Take 1 tablet by mouth once daily. 90 tablet 1 Blood-Glucose Meter,Continuous (FREESTYLE JAUN 3 READER) [facility] Dispense one reader kit. E11.9 1 Each 0 Blood-Glucose Sensor (FREESTYLE JAUN 3 SENSOR) guido CHANGE sensor every 14 days. USE FOR CONTINUOUS GLUCOSE MONITORING. E11.9 RISK FOR HYPOGLYCEMIA. 6 Each 3 dulaglutide (TRULICITY) 0.75 mg/0.5 mL pen injector Inject 0.75 mg subcutaneously one time a week. 12 Each 3 melatonin 10 mg tab Take 1 tablet by mouth at bedtime as needed for insomnia. Calcium Citrate 250 mg calcium tab Take 250 mg by mouth. ondansetron (ZOFRAN) 8 mg tablet Take 1 tablet by mouth every 8 hours as needed for nausea/vomiting. 20 tablet 1 coffee xt/phosphatidyl serine (NEURIVA ORIGINAL ORAL) Take 2 tablets by mouth once daily. FLUoxetine (PROZAC) 20 mg capsule Take 3 capsules by mouth once daily. 270 capsule 3 APPLE CIDER VINEGAR ORAL Take 1 capsule by mouth once daily. Combined with the tumeric OTC NUTRITIONAL SUPPLEMENT Take 1 capsule by mouth once daily. Tumeric - 2000 mg capsule MULTI-VITAMIN ORAL Take 1 tablet by mouth once daily. Takes bariatric multivitamin daily glimepiride (AMARYL) 2 mg tablet Take 1 mg by mouth. Lancets Test blood sugar(s) 1 times daily and prn symptoms. Dx: Type 2 DM - Controlled E11.9 Insulin: No 100 Each 11 No current facility-administered medications for this visit. Social History Tobacco Use Smoking status: Former Packs/day: 1.50 Years: 22.00 Additional pack years: 0.00 Total pack years: 33.00 Types: Cigarettes Quit date: 1989 Years since quittin.5 Passive exposure: Past Smokeless tobacco: Never Vaping Use Vaping Use: Never used Substance Use Topics Alcohol use: Yes Comment: once or twice a month Drug use: No Alcohol Use: Yes (once or twice a month) Tobacco Use: 1.5 packs/day, for 22 years. Quit 03/23/1989. Types: Cigarettes FAMILY HISTORY Problem Relation Age of Onset other (polio) Mother Diabetes Father other (Squamous cell ca) Father other (renal cell ca) Father 1999 other (htn) Father other (Thyroid Cancer) Sister other (thyroid disease) Sister ca other (renal cell ca) Brother 2010 Obesity Paternal Grandmother Obesity Daughter Thyroid Daughter Diabetes Daughter Anesthesia Problems No Family History Review of Systems Constitutional: Negative for fever. HENT: Negative for sore throat. Respiratory: Negative for cough. Cardiovascular: Negative for chest pain. Musculoskeletal: Positive for joint pain. Skin: Negative for rash. Neurological: Negative for headaches. BP 140/76 Pulse 84 Temp 98.3 Resp 16 Wt 137 lb (62.1kg) SpO2 95% Physical Exam Vitals and nursing note reviewed. Constitutional: Appearance: Normal appearance. HENT: Head: Normocephalic and atraumatic. Eyes: Conjunctiva/sclera: Conjunctivae normal. Cardiovascular: Rate and Rhythm: Normal rate and regular rhythm. Heart sounds: Normal heart sounds. Pulmonary: Effort: Pulmonary effort is normal. Breath sounds: Normal breath sounds. Abdominal: General: Bowel sounds are normal. Palpations: Abdomen is soft. Musculoskeletal: General: Tenderness present. Comments: Right hip tenderness to palpation no ecchymosis noted no obvious deformity. Right inferior ribs around the breast area tenderness to palpation no obvious deformity. Patient able to ambulate without difficulty. Skin: General: Skin is warm and dry. Neurological: General: No focal deficit present. Mental Status: She is alert and oriented to person, place, and time. Comments: Romberg's test was negative. Cranial nerves III, IV, motor V, , , XI intact. Psychiatric: Behavior: Behavior normal. X-ray examination of the patient's right hip and right ribs ordered: Right hip x-rays noted prosthesis appears to be intact and in alignment. There is no obvious fractures noted. Right rib x-rays there is a radiopacity of unknown origin on the lateral aspect of rib #10. No acute fractures noted. Stat x-ray read ordered. ASSESSMENT/PLAN: 1. Fall, initial encounter - ICD9: E888.9, ICD10: W19.XXXA (primary diagnosis) - XR RIBS/CHEST 3V AP RIB/OBLS/CXR RIGHT - XR HIP GENERAL 3V PELV/AP/LAT RIGHT 2. Pain of right hip - ICD9: 719.45, ICD10: M25.551 - XR HIP GENERAL 3V PELV/AP/LAT RIGHT 3. Rib pain on right side - ICD9: 786.50, ICD10: R07.81 - XR RIBS/CHEST 3V AP RIB/OBLS/CXR RIGHT Adult female presented today with a complaint of right hip and right rib pain secondary to fall that occurred yesterday. There is tenderness of the right lateral hip and the right inferior ribs in the anterior lateral aspect around rib #10. Radiographic examination did not note any problems in the right hip, there were some radiographic abnormalities noted by the provider and a stat read was ordered. Patient was prescribed acetaminophen. Patient informed to go to the emergency room for any severe pain and follow-up with her primary care physician if problems develop. Katerine Rodas Jr Electronically signed by Katerine Rodas Jr., PHOTOGRAPHIC INTELLIGENCE OFFICER.CD REACTOR OPERATOR at 10/11/2023 5:59 PM EDT documented in this encounter [facility] 10-11-2023 History of Present illness Narrative Radiology Service Progress Note PATIENT NAME: Mary Jane De Paz DATE OF SERVICE: October 11, 2023 TIME: 5:39 PM PATIENT IDENTITY VERIFICATION COMPLETED USING TWO (2) IDENTIFIERS: Name and Date of confirmed by patient verbally. FALL SCREENING: Has the patient had 2 falls in the last year or 1 fall with injury or currently using an Ambulatory Assistive Device (Walker, Cane, Wheelchair, Crutches, etc.)? No PATIENT GENDER DATA: Female. status: : No status: NO. PATIENT RELEVANT IMPLANT DATA REVIEWED: Not Applicable PATIENT PRESENTS WITH AN IMPLANTABLE OR ATTACHED DEAF/HARD OF HEARING SPECIALIST: No RADIOLOGY DEPARTMENT: General X-ray: Exam(s) Completed: Rib X-Ray: Right Pelvis X-Ray: Pelvis with Hip Right PERIPHERAL IV DATA: Not applicable SIGNED BY: RT Chad(R) October 11, 2023 5:39 PM documented in this encounter [facility] 10-09-2023 Telephone encounter Note Requester: Patient Patients last Endocrinology visit occurred 08/26/2023. Follow-up evaluation has been established none. Upcoming Endocrinology Appointments - Next 365 Days No appointments to display . Requested Prescriptions Pending Prescriptions Disp Refills dulaglutide (TRULICITY) 0.75 mg/0.5 mL pen injector 12 Each 3 Sig: Inject 0.75 mg subcutaneously one time a week. Please advise. [facility] 10-09-2023 Miscellaneous Notes Requester: Patient Patients last Endocrinology visit occurred 08/26/2023. Follow-up evaluation has been established none. Upcoming Endocrinology Appointments - Next 365 Days No appointments to display . Requested Prescriptions Pending Prescriptions Disp Refills dulaglutide (TRULICITY) 0.75 mg/0.5 mL pen injector 12 Each 3 Sig: Inject 0.75 mg subcutaneously one time a week. Please advise. documented in this encounter [facility] 10-07-2023 History of Present illness Narrative Provider interogated device. No impedance on all leads. Patient was on program 7 at 3.7 amp. Patient was feeling pain in vaginal area. Changed to program 4 in which she felt in the rectum, she was only on 0.9 amp. Patient told to try for 2 weeks. As for needing new hand held device patient told to call [phone] number on card to order a new one or contact [employer] student services representative for assistance. Eugenia Mullen APRN.CD REACTOR OPERATOR documented in this encounter [facility] 10-06-2023 History of Present illness Narrative COLORECTAL SURGERY Follow-up October 06, 2023 Chief complaint: anal sphincter incontinence HPI: Mary Jane De Paz is a 73 year old year old female with a history of asthma, CKD, GERD, HTN, hypothyroidism, HLD, NIDDM, MARIBEL on CPAP (resolved since RYGB in 2018) who presented to my clinic on 02/25/22 with fecal incontinence. I took her to the OR on 05/13/22 for an Interstim battery exchange. She did feel like the device helped, but she continued to have episodes of incontinence. She is here today due to vaginal pain stinging when bearing down. It would happen a few times throughout the day over a few months. Now the controller has , and she is no longer having this issue. She did have an episode of incontinence of solid stool since the controller . She fell in October 2022. The stinging started about 6 months ago and it's in the vagina. It happens when she bears down and when she turns certain ways. 07/26/23 Dr. Farmer: SURGERY/PROCEDURE: 1. Laparoscopic reduction and closure of internal hernia. 2. Laparoscopic lysis of adhesions. 07/26/23 CT A/P: IMPRESSION: Status post Samina-en-Y reconstruction. Obstruction of the Samina limb at the level of the JJ anastomosis, with small bowel measuring up to 4 cm. Enlarging low-density lesion in the uncinate process of the pancreas measuring 2.7 cm, previously measured 1.[address] from December 2018. Additional evaluation with MRI is recommended. 05/13/22 SURGERY/PROCEDURE: InterStim battery exchange. INDICATION FOR SURGERY: The patient is a 72-year-old female with a history of asthma, CKD, GERD, hypothyroidism, diabetes, MARIBEL, and was presented to my clinic with fecal incontinence. She had previously undergone an SNS InterStim placement; however, more recently she has started having worsening incontinence episodes. We interrogated the InterStim and found the battery was . We discussed battery change and she consented to proceed with surgery. OPERATIVE FINDINGS: Uncomplicated InterStim battery exchange. 04/02/22 Colonoscopy: Findings: The perianal exam findings include scar tissue anteriorly. Multiple small and large-mouthed diverticula were found in the entire colon. Non-bleeding internal hemorrhoids were found. 02/25/22 Dr. Mcgregor: Treatment plan: - Request all colorectal clinic notes and operative reports (Dr. Nichole) - Start a fiber supplement - start with 1 tsp daily for 1 week then increase to 1 tbs daily - Drink 64 oz water (try flavor added - True Lemon, cirkul) - Avoid fake sugars - Will confirm function of interstim - Squatty potty - Follow up in 4 weeks (can be virtual) 12.21.18 CT A/P: IMPRESSION: 1. Questionable inflammation surrounding the mid to distal descending colon, could be seen with very mild diverticulitis 2. Mild inflammation surrounding a single loop of small bowel in the midabdomen, could reflect mild enteritis. 3. Trace free fluid in the pelvis. 4. 3.2 cm right ovarian cyst. 5. 1.4 cm hypodensity in the liver, attenuation slightly higher than simple fluid. Indeterminant but could reflect a complex cyst or hemangioma. A nonemergent MRI of the liver could be obtained. 12.14.18 Surgery: 1. Laparoscopic Samina-en-Y gastric bypass. 2. Intraoperative EGD and provoked leak test. 3. Bilateral TAP block. 06.15.18 Surgery: Interstim Stage 1 06.29.18 Surgery: Interstim Stage [address] Tylor Mesa ([facility]): 68-year-old female status post rectum surgery and that resulted in fecal incontinence due to sphincter being cut. She had a procedure in [address] Nichole that sounds like a sphincteroplasty. She not have any relief from this. She reports daily leakage as well as one very bad episode every week. She has tried medication such as fiber and Imodium without improvement in symptoms. Anorectal: External exam reveals anterior scar consistent with sphincteroplasty. Digital rectal exam and bimanual exam reveals very thin rectovaginal septum, weak squeeze 8.16.17 Colonoscopy: Findings: The perianal and digital rectal examinations were normal. Multiple small and large-mouthed diverticula were found in the sigmoid colon and descending colon, with scattered diverticulosis in the ascending and transverse colon. Internal hemorrhoids were found during retroflexion. The hemorrhoids were mild and Grade I (internal hemorrhoids that do not prolapse). The exam was otherwise without abnormality. Physical Exam: Ht 157.5 cm (5' 2) Wt 61.7 kg (136 lb) BMI 24.87 kg/m General - awake, alert, no acute distress Abdominal - Soft, nondistended Anorectal: There are no palpable lesions in the right inguinal/vaginal region. Right back battery placement Digital Rectal Exam:Deferred Newborn Photographer present: Yes Assessment Medical Decision Making: Assessment & Diagnosis: Mary Jane De Paz is a 73 year old year old female with a history of asthma, CKD, GERD, HTN, hypothyroidism, HLD, NIDDM, MARIBEL on CPAP (resolved since RYGB in 2019) who presented to my clinic on 02/25/22 with fecal incontinence. I took her to the OR on 05/13/22 for an Interstim battery exchange. She did feel like the device helped, but she continued to have episodes of incontinence. She is here today due to vaginal pain stinging when bearing down. It would happen a few times throughout the day over a few months. Now the controller has , and she is no longer having this issue. An appointment we explained that when the controller dies the battery is not necessarily and that we are concerned it is possible the settings have changed. We will plan to obtain an x-ray to check for orientation. We have also requested that Eugenia Mullen, and interrogate the stimulator to see if we need to change settings. Alternatively she can reach out to [facility]. She is in agreement with this plan. Data Reviewed: Tests & Documents Reviewed/ordered: Review of prior notes from clinic Review of prior operative reports I have independently interpreted: N/A I have discussed Mary Jane De Paz's treatment plan and/or results with the patient. Treatment plan: - Planning on pelvic XR to check orientation - Assuming it's functioning, she will reach out to [facility] to adjust the programs Sindy Mcgregor MD I spent a total of 30 minutes on the date of the service which included preparing to see the patient, [id number] patient care, completing clinical documentation, performing a medically appropriate examination, counseling and educating the patient/family/caregiver, and care coordination (not separately reported). documented in this encounter [facility] 10-06-2023 History of Present illness Narrative [facility] Telephonic Outreach Provider Action/FYI -ckd, dm, htn Contacted for: Routine Telephonic Outreach Contact made with patient: Yes Patient identified by name and date of . Discussed care with patient Are you experiencing any new or worsening symptoms you need to talk about today? No Disease Specific Pt on her way at time of call to see [facility] for stim implant evaluation as this has recently been causing pt some pain/issues; unable to talk at length. No current cdm concerns. Breathing has been fine; urinating w/o issues; recent office BP check 124/78 Based on payroll director, the following disposition is advised: No symptoms or symptoms present, not severe. Routed to: No Action Needed VIDA Education Provided this Outreach: No Jase Dumont RN October 06, 2023 1:28 PM [facility] Telephonic Outreach Provider Maggi/JACE -ckd, dm, htn Contacted for: Routine Telephonic Outreach Contact made with patient: No, left message. Jase Dumont RN October 05, 2023 2:24 PM documented in this encounter [facility] 09-28-2023 Telephone encounter Note Prescription Refill Information The patient has been identified by name and date of : Yes Caregiver verified no other encounters exist for this prescription request: Yes Caregiver confirmed with patient/requestor that no other refills are due, in the near future, with this provider at this time: Yes The last office visit in the department: 08/05/23 Does the patient have a future office visit with this provider/department: Yes, 02/05/24 Requested Prescriptions Pending Prescriptions Disp Refills buPROPion XL (WELLBUTRIN XL) 300 mg 24 hr tablet 90 tablet 1 Sig: Take 1 tablet by mouth once daily. esomeprazole (NEXIUM) 40 mg capsule 180 capsule 1 Sig: TAKE ONE CAPSULE BY MOUTH twice daily. Ramo Russo LPN September 28, 2023 8:49 AM [facility] 09-28-2023 Telephone encounter Note See rx request. Ramo Russo LPN [facility] 09-28-2023 Miscellaneous Notes See rx request. Ramo Russo LPN documented in this encounter [facility] 09-28-2023 Miscellaneous Notes Prescription Refill Information The patient has been identified by name and date of : Yes Caregiver verified no other encounters exist for this prescription request: Yes Caregiver confirmed with patient/requestor that no other refills are due, in the near future, with this provider at this time: Yes The last office visit in the department: 08/05/23 Does the patient have a future office visit with this provider/department: Yes, 02/05/24 Requested Prescriptions Pending Prescriptions Disp Refills buPROPion XL (WELLBUTRIN XL) 300 mg 24 hr tablet 90 tablet 1 Sig: Take 1 tablet by mouth once daily. esomeprazole (NEXIUM) 40 mg capsule 180 capsule 1 Sig: TAKE ONE CAPSULE BY MOUTH twice daily. Ramo Russo LPN September 28, 2023 8:49 AM documented in this encounter [facility] 09-12-2023 History of Present illness Narrative Mary Jane De Paz is a 73 year old FEMALE who presents with Pain (foot) (Right /Yesterday 5pm /Patient states she jammed her foot into some furniture (love seat) patient states she was walking to fast and wasn't paying attention //At home. /) HPI PAST MEDICAL HISTORY Diagnosis Date Allergic rhinitis Arthritis [facility], knee Asthma CKD (chronic kidney disease) 11/01/2018 Class 3 severe obesity with serious comorbidity and body mass index (BMI) of 40.0 to 44.9 in adult ([facility]) 08/19/2018 Coronary artery disease 10/28/[address] Salazar Fracture of right hip ([facility]) GERD (gastroesophageal reflux disease) History of transfusion HTN (hypertension) Hypothyroidism Mixed hyperlipidemia NIDDM (non-insulin dependent 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) MARIBEL on CPAP CPAP 9Cm Osteoarthritis of hip Renal lesion 01/15/2015 Suggest renal US every 1-2 years per PCP or nephro. Snoring Type 2 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 with hyperglycemia, with long-term current use of insulin ([facility]) 1999 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 Hypertensive kidney disease with stage 3 chronic kidney disease ([facility]) De Quervain's Tenosynovitis, Left Joint Stiffness of Hand, Left Metacarpophalangeal Joint Pain of Left Hand Finger Pain, Left Asthma Stage 3 Chronic Kidney Disease ([facility]) H/O Gastric Bypass Closed Displaced Fracture of Right Femoral Neck ([facility]) Hyponatremia Hip Fracture Requiring Operative Repair, Right, Closed, Initial Encounter ([facility]) Type 2 Diabetes Mellitus ([facility]) Renal Lesion History of Total Hip Replacement, Right History of Total Knee Replacement, Left Coronary Artery Disease Involving [place] Coronary Artery of [place] Heart Without Angina Pectoris Uti (Urinary Tract Infection) Pancreatic Cyst Sbo (Small Bowel Obstruction) ([facility]) Current Outpatient Medications Medication Sig Dispense Refill glimepiride (AMARYL) 2 mg tablet Take 1 mg by mouth. irbesartan (AVAPRO) 150 mg tablet Take 1 tablet by mouth every evening. turmeric root extract 500 mg cap Take by mouth. venlafaxine ER (EFFEXOR XR) 150 mg 24 hr capsule Take 1 capsule by mouth once daily. traZODone (DESYREL) 100 mg tablet Take 2 tablets by mouth daily at bedtime. 180 tablet 1 levothyroxine (SYNTHROID) 100 mcg tablet Take 1 tablet by mouth once daily. 90 tablet 3 atorvastatin (LIPITOR) 20 mg tablet Take 1 tablet by mouth daily at bedtime. For cholesterol. 90 tablet 1 famotidine (PEPCID) 20 mg tablet Take 1 tablet by mouth two times a day as needed (GERD). 180 tablet 1 lisinopril (ZESTRIL) 20 mg tablet Take 1 tablet by mouth once daily. 90 tablet 1 Blood-Glucose Meter,Continuous (FREESTYLE JAUN 3 READER) [facility] Dispense one reader kit. E11.9 1 Each 0 Blood-Glucose Sensor (FREESTYLE JAUN 3 SENSOR) guido CHANGE sensor every 14 days. USE FOR CONTINUOUS GLUCOSE MONITORING. E11.9 RISK FOR HYPOGLYCEMIA. 6 Each 3 dulaglutide (TRULICITY) 0.75 mg/0.5 mL pen injector Inject 0.75 mg subcutaneously one time a week. 12 Each 3 Lancets Test blood sugar(s) 1 times daily and prn symptoms. Dx: Type 2 DM - Controlled E11.9 Insulin: No 100 Each 11 melatonin 10 mg tab Take 1 tablet by mouth at bedtime as needed for insomnia. esomeprazole (NEXIUM) 40 mg capsule TAKE ONE CAPSULE BY MOUTH twice daily. 180 capsule 1 buPROPion XL (WELLBUTRIN XL) 300 mg 24 hr tablet Take 1 tablet by mouth once daily. 90 tablet 1 Calcium Citrate 250 mg calcium tab Take 250 mg by mouth. coffee xt/phosphatidyl serine (NEURIVA ORIGINAL ORAL) Take 2 tablets by mouth once daily. FLUoxetine (PROZAC) 20 mg capsule Take 3 capsules by mouth once daily. 270 capsule 3 APPLE CIDER VINEGAR ORAL Take 1 capsule by mouth once daily. Combined with the tumeric MULTI-VITAMIN ORAL Take 1 tablet by mouth once daily. Takes bariatric multivitamin daily ondansetron (ZOFRAN) 8 mg tablet Take 1 tablet by mouth every 8 hours as needed for nausea/vomiting. (Patient not taking: Reported on 09/12/2023) 20 tablet 1 OTC NUTRITIONAL SUPPLEMENT Take 1 capsule by mouth once daily. Tumeric - 2000 mg capsule (Patient not taking: Reported on 09/12/2023) No current facility-administered medications for this visit. Social History Tobacco Use Smoking status: Former Packs/day: 1.50 Years: 22.00 Additional pack years: 0.00 Total pack years: 33.00 Types: Cigarettes Quit date: 1989 Years since quittin.4 Passive exposure: Past Smokeless tobacco: Never Vaping Use Vaping Use: Never used Substance Use Topics Alcohol use: Yes Comment: once or twice a month Drug use: No Alcohol Use: Yes (once or twice a month) Tobacco Use: 1.5 packs/day, for 22 years. Quit 03/23/1989. Types: Cigarettes FAMILY HISTORY Problem Relation Age of Onset other (polio) Mother Diabetes Father other (Squamous cell ca) Father other (renal cell ca) Father 1999 other (htn) Father other (Thyroid Cancer) Sister other (thyroid disease) Sister ca other (renal cell ca) Brother 2010 Obesity Paternal Grandmother Obesity Daughter Thyroid Daughter Diabetes Daughter Anesthesia Problems No Family History Review of Systems Musculoskeletal: Positive for joint pain. Patient was walking quickly and did not realize but hit the end of a bed frame with her foot and it split her fifth toe from her fourth toe and she has intense pain now at the base of that fifth toe. BP 124/78 Pulse 78 Temp (Src) 98.3 (Temporal) Resp 17 Wt 139 lb (63.1kg) SpO2 98% Physical Exam Vitals and nursing note reviewed. Exam conducted with a house wrecker present. Constitutional: Appearance: Normal appearance. HENT: Head: Normocephalic. Cardiovascular: Rate and Rhythm: Normal rate and regular rhythm. Pulses: Normal pulses. Heart sounds: Normal heart sounds. Pulmonary: Effort: Pulmonary effort is normal. Breath sounds: Normal breath sounds. Musculoskeletal: General: Swelling, tenderness and signs of injury present. Normal range of motion. Comments: Examination of the right foot shows that there is bruising on the fifth toe and at the base of the fifth toe onto the dorsum of the foot. She has tenderness to palpation there pulses are +2/4 and capillary refill less than 3 seconds normal motor neurovascular and sensory to the digits. X-ray is reviewed and is positive for a nondisplaced fracture of the proximal portion of the proximal phalanx of the fifth toe. It is not displaced. The patient will be placed in a postop shoe she is to ice and elevate when possible. And is given medication to help with the pain. She is given Percocet. She states she has been able to take that in the past. She was advised that Percocet is a narcotic do not drive operate heavy machinery sign legal papers or operate a firearm while using and patient states she understands. Skin: General: Skin is warm. Capillary Refill: Capillary refill takes 2 to 3 seconds. Neurological: General: No focal deficit present. Mental Status: She is alert. Psychiatric: Mood and Affect: Mood normal. ASSESSMENT/PLAN: 1. Closed nondisplaced fracture of proximal phalanx of lesser toe of right foot, initial encounter - ICD9: 826.0, ICD10: S92.514A (primary diagnosis) - OXYCODONE-ACETAMINOPHEN 5 MG-325 MG TABLET 2. Contusion of fifth toe - ICD9: 924.3, ICD10: S90.129A - XR TOE AP/LAT/OBL RIGHT Gely Sandoval Post op shoe applied to right foot patient tolerated well patient voices no other concerns at this time. Lor Ferrell LPN documented in this encounter [facility] 09-12-2023 History of Present illness Narrative Radiology Service Progress Note PATIENT NAME: Mary Jane De Paz DATE OF SERVICE: September 12, 2023 TIME: 4:41 PM PATIENT IDENTITY VERIFICATION COMPLETED USING TWO (2) IDENTIFIERS: Name and Date of confirmed by patient verbally. FALL SCREENING: Has the patient had 2 falls in the last year or 1 fall with injury or currently using an Ambulatory Assistive Device (Walker, Cane, Wheelchair, Crutches, etc.)? Yes, Patient High Risk for Falls What interventions were put in place to prevent falls during this visit? Offered Assistance with Transfers/Clothing PATIENT GENDER DATA: Female. status: : No status: NO. PATIENT RELEVANT IMPLANT DATA REVIEWED: Not Applicable PATIENT PRESENTS WITH AN IMPLANTABLE OR ATTACHED DEAF/HARD OF HEARING SPECIALIST: No RADIOLOGY DEPARTMENT: General X-ray: Exam(s) Completed: Lower Extremity X-Ray(s): Toes, Right PERIPHERAL IV DATA: Not applicable SIGNED BY: RT Chad(R) September 12, 2023 4:41 PM documented in this encounter [facility] 09-09-2023 History of Present illness Narrative [facility] Telephonic Outreach Provider Action/FYI -ckid, dm, htn Contacted for: Routine Telephonic Outreach Contact made with patient: No, left message. Jase Dumont RN September 09, 2023 10:37 AM [facility] Telephonic Outreach Provider Action/FYI -ckd, htn, dm Contacted for: Routine Telephonic Outreach Contact made with patient: No, left message. Jase Dumont RN September 08, 2023 3:09 PM documented in this encounter [facility] 09-04-2023 Telephone encounter Note Patient called regarding previous recommendation from Dr. Kerr. Patient is wanting to explore other pain management options prior to consultation with surgeon. She is willing to have care transferred to other specialties that Dr. Kerr could recommend. Patient advised that [facility] does have a pain management practice and is willing to consult with their team. If Dr. Kerr still advises her to speak with surgeon, she requests to be referred to a more local provider, even if they are non-[facility]. Patient is requesting to continue cortisone injections with MANJINDER until she is able to receive care under another specialty. Patient is also wanting to know how to move forward with appropriate imaging to accommodate her stimulator. Please contact patient to advise. [facility] 09-04-2023 Miscellaneous Notes Patient called regarding previous recommendation from Dr. Kerr. Patient is wanting to explore other pain management options prior to consultation with surgeon. She is willing to have care transferred to other specialties that Dr. Kerr could recommend. Patient advised that [facility] does have a pain management practice and is willing to consult with their team. If Dr. Kerr still advises her to speak with surgeon, she requests to be referred to a more local provider, even if they are non-[facility]. Patient is requesting to continue cortisone injections with MANJINDER until she is able to receive care under another specialty. Patient is also wanting to know how to move forward with appropriate imaging to accommodate her stimulator. Please contact patient to advise. I called and spoke with the patient. Explained that her MRI was cancelled d/t her implanted nerve stimulator. Patient would like to know what to do in place of the wrist MRI? Information that was found in the chart from radiology. This patient has an implanted spinal cord stimulator that is only approved for an MRI exams of the head. documented in this encounter [facility] 09-03-2023 Telephone encounter Note I called and spoke with the patient. Explained that her MRI was cancelled d/t her implanted nerve stimulator. Patient would like to know what to do in place of the wrist MRI? [facility] 09-02-2023 Telephone encounter Note Sent another staff message to Dr. Keys's office. [facility] 09-02-2023 Miscellaneous Notes Sent another staff message to Dr. Keys's office. Called and spoke with patient. She would like to try an US guided injection. Staff message sent to Dr. Juan Jose Keys's office to contact the patient. She can some in for a repeat injection. Can also try an US guided if she'd like. That would have to be a contact to the provider as the standard EPIC order does not include ulnar fossa injections. BP The patient sent a 24tidyt message in on Thursday to Nicole and Nicole told her to schedule a follow up. documented in this encounter [facility] 09-02-2023 Telephone encounter Note Information that was found in the chart from radiology. This patient has an implanted spinal cord stimulator that is only approved for an MRI exams of the head. [facility] 08-31-2023 Telephone encounter Note Hello, This patient has an implanted spinal cord stimulator that is only approved for an MRI exams of the head.. Thanks, Heather Root RT(R)(MR)(BD) MR Imaging Education/ MRI Safety Team [facility] 08-31-2023 Miscellaneous Notes Hello, This patient has an implanted spinal cord stimulator that is only approved for an MRI exams of the head.. Thanks, Heather Root RT(R)(MR)(BD) MR Imaging Education/ MRI Safety Team documented in this encounter [facility] 08-31-2023 Telephone encounter Note Patient dropped off application but did not include proof of income. Patient will bring to office. Application in files awaiting information. Lima Pandya MA [facility] 08-31-2023 Miscellaneous Notes Patient dropped off application but did not include proof of income. Patient will bring to office. Application in files awaiting information. Lima Pandya MA documented in this encounter [facility] 08-27-2023 Telephone encounter Note Called and spoke with patient. She would like to try an US guided injection. Staff message sent to Dr. Juan Jose Keys's office to contact the patient. [facility] 08-27-2023 Telephone encounter Note The following approved medication requests have been transmitted electronically. Requested Prescriptions Pending Prescriptions Disp Refills traZODone (DESYREL) 100 mg tablet 180 tablet 1 Sig: Take 2 tablets by mouth daily at bedtime. Christine Black APRN.[facility] 08-27-2023 Miscellaneous Notes The following approved medication requests have been transmitted electronically. Requested Prescriptions Pending Prescriptions Disp Refills traZODone (DESYREL) 100 mg tablet 180 tablet 1 Sig: Take 2 tablets by mouth daily at bedtime. Christine Black APRN.[facility]-08/05/23 Labs-07/28/23 NOV-02/05/24 Jannette Lemus LPN documented in this encounter [facility] 08-27-2023 Telephone encounter Note The following approved medication requests have been transmitted electronically. Requested Prescriptions Pending Prescriptions Disp Refills levothyroxine (SYNTHROID) 100 mcg tablet 90 tablet 3 Sig: Take 1 tablet by mouth once daily. atorvastatin (LIPITOR) 20 mg tablet 90 tablet 1 Sig: Take 1 tablet by mouth daily at bedtime. For cholesterol. famotidine (PEPCID) 20 mg tablet 180 tablet 1 Sig: Take 1 tablet by mouth two times a day as needed (GERD). lisinopril (ZESTRIL) 20 mg tablet 90 tablet 1 Sig: Take 1 tablet by mouth once daily. Christine Black APRN.[facility]NS [facility] 08-27-2023 Miscellaneous Notes The following approved medication requests have been transmitted electronically. Requested Prescriptions Pending Prescriptions Disp Refills levothyroxine (SYNTHROID) 100 mcg tablet 90 tablet 3 Sig: Take 1 tablet by mouth once daily. atorvastatin (LIPITOR) 20 mg tablet 90 tablet 1 Sig: Take 1 tablet by mouth daily at bedtime. For cholesterol. famotidine (PEPCID) 20 mg tablet 180 tablet 1 Sig: Take 1 tablet by mouth two times a day as needed (GERD). lisinopril (ZESTRIL) 20 mg tablet 90 tablet 1 Sig: Take 1 tablet by mouth once daily. Christine Black APRN.[employer] [facility]-08/05/23 Labs-07/28/23 NOV-02/05/24 Jannette Lemus LPN documented in this encounter [facility] 08-27-2023 Telephone encounter Note [facility]-08/05/23 Labs-07/28/23Jan-02/05/24 Jannette Lemus LPN [facility] 08-27-2023 Telephone encounter Note [facility]-08/05/23 Labs-07/28/23Jan-02/05/24 Jannette Lemus LPN [facility] 08-27-2023 Telephone encounter Note She can some in for a repeat injection. Can also try an US guided if she'd like. That would have to be a contact to the provider as the standard EPIC order does not include ulnar fossa injections. BP [facility] Work Phone: 08-26-2023 Telephone encounter Note Micheal sent an approval letter patient's Trul[employer] from 03/23/2023-03/22/2025. Sent to scanning. Sera Richardson MA [facility] 08-26-2023 Miscellaneous Notes Micheal sent an approval letter patient's Trulicity from 03/23/2023-03/22/2025. Sent to scanning. Sera Richardson MA documented in this encounter [facility] 08-26-2023 History of Present illness Narrative OFFICE VISIT PROGRESS NOTE CC Mary Jane De Paz is a 73 year old female who presents today for blood sugar review hypoglycemia problem HPI PATIENT OF DR. LOVE, ENDOCRINE Diagnosed with 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 type 2, ~ 2000 Last endocrine OV 07/28/2018 Some elements copied from my note 07/28/2018 which have been updated where appropriate, and all reflect current medical decision making from date of this visit. HPI 08/26/2023 Not seen for several years in ENDO Had moved residences HX of full RnY gastric bypass Patient closely monitors both her weight and her nutritional intake Has been following with her PCP for her DM2 since her move. Recently had 'horrible abdominal pain' I threw up all night' Did not go to the ER until the next day when her symptoms worsened Found to have bowel obstruction (secondary to internal hernias and mesenteric adhesion) with subsequent surgery (07/26/2023) discharged to home 07/28/2023 Developed UTI 08/05/2023. Treated with macrobid Had surgery follow up for Laparoscopic reduction and closure of internal hernia.// Laparoscopic lysis of adhesions on August 12, 2023 - is cleared for regular activity barring lifting anything heavier than 10 pounds for several more weeks. Here today for DM follow up Having blood sugar lows overnight and sometimes during the day Sugars have been as low as 54, patient feels shaky and weak when this happens Had been using FREESTYLE JAUN 3 Patient asst for GLP1 through [employer] Has cont w amaryl 1 mg in addt to the GLP1 Very seldom checks BG, as was using a freestyle CURRENT DM MEDS TRULICITY 0.75 weekly injection GLIMEPIRIDE 1 mg daily SMBG Type of Monitor: Other Frequency of Monitorin times a day BG Values: 56-246 variable Hypoglycemia: yes at night, at times during the day, can feel low less than 70 Diet: Low carbohydrate and small portion Exercise: walking//housework DM REVIEW OF SYSTEMS Last Eye Exam : 01/2023 Last Podiatry Exam: none Cardiorespiratory: negative, denies chest pain, pressure Claudication: no Dyslipidemia: Yes, controlled on medication High Blood Pressure: Yes, controlled on medication CURRENT LABS Latest Ref Rng 04/28/2023 07/28/2023 Glucose 74 - 99 mg/dL 116 (H) BUN 7 - 21 mg/dL 11 Creatinine 0.58 - 0.96 mg/dL 1.19 (H) Sodium 136 - 144 mmol/L 136 Potassium 3.7 - 5.1 mmol/L 4.8 Chloride 97 - 105 mmol/L 99 CO2 22 - 30 mmol/L 28 Anion Gap 9 - 18 mmol/L 9 Calcium 8.5 - 10.2 mg/dL 8.8 eGFR >=60 mL/min/1.73m 49 (L) Hemoglobin A1C 4.3 - 5.6 % 5.6 Estimated Average Glucose mg/dL 114 TSH 0.270 - 4.200 mIU/L 0.595 Free T4 0.9 - 1.7 ng/dL 1.4 Legend: (H) High (L) Low Latest Ref Rng 04/28/2023 07/07/2023 Protein, Total 6.3 - 8.0 g/dL 6.9 Albumin 3.9 - 4.9 g/dL 3.9 Calcium 8.5 - 10.2 mg/dL 9.6 9.3 Bilirubin, Total 0.2 - 1.3 mg/dL 0.2 Alkaline Phosphatase 34 - 123 U/L 93 AST 13 - 35 U/L 32 ALT 7 - 38 U/L 23 Glucose 74 - 99 mg/dL 93 112 (H) BUN 7 - 21 mg/dL 12 11 Creatinine 0.58 - 0.96 mg/dL 1.10 (H) 1.08 (H) Sodium 136 - 144 mmol/L 140 139 Potassium 3.7 - 5.1 mmol/L 4.0 3.9 Chloride 97 - 105 mmol/L 102 101 CO2 22 - 30 mmol/L 28 28 Anion Gap 9 - 18 mmol/L 10 10 eGFR >=60 mL/min/1.73m 53 (L) 55 (L) Creatinine, Ur Random (UCRR) 20.0 - 300.0 mg/dL 69.8 Albumin, Urine Random mg/L 13.2 Albumin/Creat Ratio <30 mg/g 19 Hemoglobin A1C 4.3 - 5.6 % 5.6 Estimated Average Glucose mg/dL 114 TSH 0.270 - 4.200 mIU/L 0.595 Free T4 0.9 - 1.7 ng/dL 1.4 Legend: (H) High (L) Low PAST MEDICAL HISTORY Diagnosis Date Allergic rhinitis [facility], knee Asthma CKD (chronic kidney disease) 11/01/2018 Class 3 severe obesity with serious comorbidity and body mass index (BMI) of 40.0 to 44.9 in adult (HCC) 08/19/2018 Coronary artery disease 10/28/[address] Salazar Fracture of right hip (HCC) GERD (gastroesophageal reflux disease) History of transfusion HTN (hypertension) Hypothyroidism Mixed hyperlipidemia NIDDM (non-insulin dependent 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) MARIBEL on CPAP CPAP 9Cm Osteoarthritis of hip Renal lesion 01/15/2015 Suggest renal US every 1-2 years per PCP or nephro. Snoring Type 2 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 with hyperglycemia, with long-term current use of insulin ([facility]) 1999 PAST SURGICAL HISTORY Procedure Laterality Date ABDOMINAL SURGERY HX COLONOSCOPY 11/05/2016 Tammi- divertiuclosis, internal hemorrhoids, repeat in 5 years COLONOSCOPY 04/02/2022 repeat in 5 years due to reported prior history of polyps COSMETIC ASSESSMENT EGD 11/05/2016 Tammi- gastritis EGD 09/08/2018 /Gastritis EGD 04/02/2020 EGD 04/02/2022 EYE SURGERY HX Bilateral cataract extraction 2009' GASTRECTOMY,PART DISTAL;W/GASTRODUODENOSTO GASTRIC BYPASS HX 12/13/2018 Laparoscopic Samina-en-Y gastric bypass HIP SURGERY HX Screws replaced JOINT REPLACEMENT HX OOPHORECTOMY PARTIAL OR TOTAL PAST SURGICAL HISTORY OF 2009 hemmroidectomy/sphincterectomy - Dr Nichole PAST SURGICAL HISTORY OF 2008 total left knee replacement PAST SURGICAL HISTORY OF 2003 partial right knee replacement PAST SURGICAL HISTORY OF 1990 total hysterectomy PAST SURGICAL HISTORY OF 2010 lDr Mansoor - [place] elbow fracture - traumatic. radial head replacement PAST SURGICAL HISTORY OF Bilateral 2016 hand surgery PAST SURGICAL HISTORY OF Left RELEASE CONTRACTURE DEQUERVAINS S INSERT PINN METAL NTRL HIP Right 11/17/2021 SKIN BIOPSY HX TOTAL HIP REPLACEMENT Right TOTAL KNEE REPLACEMENT Right 09/15/2022 TUBAL LIGATION HX VAGINAL HYSTERECTOMY 1979' FAMILY HISTORY Problem Relation Age of Onset other (polio) Mother Diabetes Father other (Squamous cell ca) Father other (renal cell ca) Father 1999 other (htn) Father other (Thyroid Cancer) Sister other (thyroid disease) Sister ca other (renal cell ca) Brother 2010 Obesity Paternal Grandmother Obesity Daughter Thyroid Daughter Diabetes Daughter Anesthesia Problems No Family History Social History Tobacco Use Smoking status: Former Packs/day: 1.50 Years: 22.00 Additional pack years: 0.00 Total pack years: 33.00 Types: Cigarettes Quit date: 1989 Years since quittin.3 Smokeless tobacco: Never Vaping Use Vaping Use: Never used Substance Use Topics Alcohol use: Yes Comment: few times a year. mixed drinls/marcelino. 3 in sitting. Drug use: No Current Outpatient Medications Medication Sig acetaminophen (TYLENOL) 500 mg tablet Take 2 tablets by mouth every [address] (PROTONIX) 40 mg tablet Take 1 tablet by mouth daily at 6 am. senna-docusate (SENNA-S) 8.6-50 mg per tablet Take 1 tablet by mouth two times a day. traMADol (ULTRAM) 50 mg tablet Take 1 tablet by mouth every 8 hours as needed for up to 10 days. blood sugar diagnostic (BLOOD GLUCOSE TEST) test strip Test blood sugar(s) 1 times daily and as needed for symptoms. Dx: Type 2 DM - Controlled E11.9 Insulin: No Lancets Test blood sugar(s) 1 times daily and prn symptoms. Dx: Type 2 DM - Controlled E11.9 Insulin: No melatonin 10 mg tab Take 1 tablet by mouth at bedtime as needed for insomnia. esomeprazole (NEXIUM) 40 mg capsule TAKE ONE CAPSULE BY MOUTH twice daily. traZODone (DESYREL) 100 mg tablet Take 2 tablets by mouth daily at bedtime. buPROPion XL (WELLBUTRIN XL) 300 mg 24 hr tablet Take 1 tablet by mouth once daily. lisinopril (ZESTRIL) 20 mg tablet Take 1 tablet by mouth once daily. Calcium Citrate 250 mg calcium tab Take 250 mg by mouth. pregabalin (LYRICA) 75 mg capsule Take 1 capsule by mouth daily at bedtime for 90 days. famotidine (PEPCID) 20 mg tablet Take 1 tablet by mouth two times a day as needed (GERD). atorvastatin (LIPITOR) 20 mg tablet Take 1 tablet by mouth daily at bedtime. For cholesterol. glimepiride (AMARYL) 1 mg tablet Take 1 tablet by mouth daily with breakfast. ondansetron (ZOFRAN) 8 mg tablet Take 1 tablet by mouth every 8 hours as needed for nausea/vomiting. Blood-Glucose Sensor (FREESTYLE JAUN 3 SENSOR) guido 1 Each as directed. coffee xt/phosphatidyl serine (NEURIVA ORIGINAL ORAL) Take 2 tablets by mouth once daily. diclofenac (VOLTAREN) 1 % topical gel Apply 4 g to affected area four times daily. levothyroxine (SYNTHROID) 100 mcg tablet Take 1 tablet by mouth once daily. dulaglutide (TRULICITY) 0.75 mg/0.5 mL pen injector Inject 0.75 mg subcutaneously one time a week. Inject dose once per week. Discard Pen After FLUoxetine (PROZAC) 20 mg capsule Take 3 capsules by mouth once daily. APPLE CIDER VINEGAR ORAL Take 1 capsule by mouth once daily. 450 mg capsule OTC NUTRITIONAL SUPPLEMENT Take 1 capsule by mouth once daily. Tumeric - 2000 mg capsule dicyclomine (BENTYL) 20 mg tablet Take 1 tablet by mouth before meals and at bedtime. MULTI-VITAMIN ORAL Take 1 tablet by mouth once daily. Takes bariatric multivitamin daily No current facility-administered medications for this visit. ALLERGIES Allergen Reactions Vicodin [Hydrocodon* Itching Pt not sure if she has an allergy but states she wants it documented. REVIEW OF SYSTEMS - POSITIVES IN BOLD GENERAL:No weight loss, malaise or fevers HEENT:Negative for frequent or significant headaches, No changes in hearing or vision, no nose bleeds or other nasal problems NECK:Negative for lumps, goiter, pain and significant neck swelling RESPIRATORY: Negative for cough, hemoptysis, wheezing, COPD, dyspnea or shortness of breath CARDIOVASCULAR: Negative for chest pain, leg swelling, hypertension, CHF or palpitations PHYSICAL EXAMINATION: BP 136/72 Pulse 81 Temp 37.2 C (98.9 F) (Temporal Artery) Ht 157.5 cm (5' 2) Wt 63.1 kg (139 lb 3.2 oz) SpO2 96% BMI 25.46 kg/m GENERAL: alert and appropriate, in no distress and well-hydrated, well nourished SKIN: no rash noted HEAD: normocephalic, no abnormality or lesion noted EYES: PERRL NECK: full ROM, no cervical LNs noted ACANTHOSIS: none noted EXTREMITIES: normal NEUROLOGIC: no obvious deficit ASSESSMENT: (E11.9) Controlled type 2 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, without long-term current use of insulin (HCC) (primary encounter diagnosis) Comment: Patient with re current hypoglycemia//hx of gastric bypass Last A1C Apr, 5.6% Will redo pt asst for GLP1 Given hypoglycemia, STOP AMARYL 1 mg Will cont with GLP1 (TRULICITY at low dose 0.75 mg weekly injection) SENT [employer] 3 to pt local pharmacy STRONGLY recommend use of CGM for this patient given hx of Samina n Y gastric bypass and recurring bouts of hypoglycemia. Recommended diet: Low carbohydrate and Low saturated fat, low simple sugar, high fiber diet Exercise minimally 150 minutes per week, increase as tolerated. Adequate hydration - 1/2 body wgt in oz of water daily, unless fluid restriction applies. I instructed the patient to monitor blood sugars 4 times per day If blood sugars are persistently high or low, to call our office. Patient to continue to follow up with her PCP and with other consultants regarding her other medical problems. Plan: COMPREHENSIVE METABOLIC PANEL, LIPID PANEL, NONFASTING, ALBUMIN/CREATININE RATIO, URINE, HEMOGLOBIN A1C Marimar Wilcox CNP documented in this encounter [facility] 08-24-2023 Telephone encounter Note Record ID: [id number] Patient name: Mary Jane De Paz Date: August 24, 2023 - 08:19 Administered by: ANN Protocol: -> Great! Now we are in a secure chat environment. Protecting your health information is important to us. Ok, let's get started. Please verify your name and date of . Please click on the button with your first name. -> Mary Jane Got it. On to the next question... Select the button with your last name. -> Baldev Got it, thank you. Please enter your date of in MM/DD/YYYY format:(e.g., 04/10/1968 for Apr [birth year], 1968) -> 1950 Thank you for verifying your information. I'd like to ask you a few questions about how your recovery is going. One final check: have you experienced any new or worsening symptoms since your last response? -> No I'm glad to hear that. Thank you for your time and for allowing us to care for you. Please be sure to reach out to your provider for any further symptoms or needs. Please rate your satisfaction with the care and support you have received from us since you have been home: (scale 1-5; 1 worst and 5 best) -> 5 Please tell me what you liked best about your experience: -> nurses were terrific! Please tell me what you liked least about your experience: -> call button [facility] 08-24-2023 Miscellaneous Notes Record ID: [id number] Patient name: Mary Jane De Paz Date: August 24, 2023 - 08:19 Administered by: ANN Protocol: -> Great! Now we are in a secure chat environment. Protecting your health information is important to us. Ok, let's get started. Please verify your name and date of . Please click on the button with your first name. -> Mary Jane Got it. On to the next question... Select the button with your last name. -> Baldev Got it, thank you. Please enter your date of in MM/DD/YYYY format:(e.g., 04/10/1968 for Apr [birth year], 1968) -> 1950 Thank you for verifying your information. I'd like to ask you a few questions about how your recovery is going. One final check: have you experienced any new or worsening symptoms since your last response? -> No I'm glad to hear that. Thank you for your time and for allowing us to care for you. Please be sure to reach out to your provider for any further symptoms or needs. Please rate your satisfaction with the care and support you have received from us since you have been home: (scale 1-5; 1 worst and 5 best) -> 5 Please tell me what you liked best about your experience: -> nurses were terrific! Please tell me what you liked least about your experience: -> call button documented in this encounter [facility] 08-18-2023 History of Present illness Narrative ACM LIOR RN Patient identified by name and date of . Reason for review or outreach: Chart Review Lior Priority Utilization in past 6 months: # Occurrences Date Last Occurrence Hospital Admission 1 5-5-24 Hospital Observation ED SNF / Acute Rehab / LTAC ED DIAGNOSES/REASON(S) FOR ED USE: OTHER FINDINGS/SUMMARY:E.D. visit transitioned to Inpatient Hospital Admisssion. No Action Needed Patient Attributed To: PATSY Payer: Micheal HANEY Action Taken: No action needed Contact made with patient: No, Chart review only. Signature: Lucy Schwartz RN documented in this encounter [facility] 08-14-2023 Telephone encounter Note The patient sent a You[employer] message in on Thursday to Nicole and Nicole told her to schedule a follow up. [facility] 08-13-2023 Telephone encounter Note Verified with [facility] that rx was cancelled out at appointment yesterday with general surg provider. Recalled rx back in and left detailed vm for patient Jean Pierre Joy MA [facility] 08-13-2023 Miscellaneous Notes Verified with [facility] that rx was cancelled out at appointment yesterday with general surg provider. Recalled rx back in and left detailed vm for patient Jean Pierre LYNDON Joy See [employer] message. Isa Packer MA documented in this encounter [facility] 08-12-2023 Nurse Note What is the reason for your visit today? Post op 07/26/23 SBO Who is your referring physician? ER Are you having poor oral intake? NO Have you had unintentional weight loss of 15 lbs/7 Kg in the last 3-6 months? NO Bowels: erratic, diarrhea first thing in morning Wound: clean & dry Temperature: No Drains: No [facility] 08-12-2023 Nurse Note What is the reason for your visit today? Post op 07/26/23 SBO Who is your referring physician? ER Are you having poor oral intake? NO Have you had unintentional weight loss of 15 lbs/7 Kg in the last 3-6 months? NO Bowels: erratic, diarrhea first thing in morning Wound: clean & dry Temperature: No Drains: No documented in this encounter [facility] 08-12-2023 History of Present illness Narrative Assessment Postoperative Visit Date of Surgery: 07/26/23 Surgery: Laparoscopic reduction and closure of internal hernia. 2. Laparoscopic lysis of adhesions Post Op Diagnosis: Small bowel obstruction due to both internal hernias and a mesenteric adhesion. Surgical Pathology: n/a Subjective: - feels great - no pain, nausea or constipation - eating OK , no regurgitations Physical examination: BP 138/71 Pulse 72 Temp (Src) 97.4 (Temporal) Ht 5' 2.008 (1.58m) Wt 140 lb (63.5kg) SpO2 98% BMI 25.60 kg/(m^2). A&O, pleasant, no distress Abdomen: soft, no tenderness or distention Incisions: healing very well, no drainage, swelling, erythema or tenderness Impression and plan: Mary Jane De Paz is a 73 year old yo woman, s/p Laparoscopic reduction and closure of internal hernia, Laparoscopic lysis of adhesions - doing well from the surgical perspective - feeling much better Patient can go back to a regular routine at this time. I have asked the patient to continue weight lifting restrictions up to 10 pounds for a total of 4 weeks. Follow up: TUCKER Madrid APRN.CNP documented in this encounter [facility] 08-10-2023 Telephone encounter Note See [employer] message. Isa Packer MA [facility] 08-10-2023 Telephone encounter Note Record ID: [id number] Patient name: Mary Jane De Paz Date: August 10, 2023 - 08:12 Administered by: ANN Protocol: -> Great! Now we are in a secure chat environment. Protecting your health information is important to us. Ok, let's get started. Please verify your name and date of . Please click on the button with your first name. -> Mary Jane Got it. On to the next question... Select the button with your last name. -> Baldev Got it, thank you. Please enter your date of in MM/DD/YYYY format:(e.g., [birth year]/10/1969 for Apr 10, 1968) -> 1950 Thank you for verifying your information. I'd like to ask you a few questions about how your recovery is going. Have there been any new or worsening symptoms since your last response? -> No I'm glad to hear that. Have you had a hospital follow-up appointment yet since your discharge? -> Yes We would like to make sure you have what you need so that your basic needs are met including your personal safety, food, and housing. Would you like to speak to a social work team guide to help give you the support for any of these needs? -> No [facility] 08-10-2023 Miscellaneous Notes Record ID: [id number] Patient name: Mary Jane De Paz Date: August 10, 2023 - 08:12 Administered by: ANN Protocol: -> Great! Now we are in a secure chat environment. Protecting your health information is important to us. Ok, let's get started. Please verify your name and date of . Please click on the button with your first name. -> Mary Jane Got it. On to the next question... Select the button with your last name. -> Baldev Got it, thank you. Please enter your date of in MM/DD/YYYY format:(e.g., 04/10/1968 for Apr 10, 1968) -> 1950 Thank you for verifying your information. I'd like to ask you a few questions about how your recovery is going. Have there been any new or worsening symptoms since your last response? -> No I'm glad to hear that. Have you had a hospital follow-up appointment yet since your discharge? -> Yes We would like to make sure you have what you need so that your basic needs are met including your personal safety, food, and housing. Would you like to speak to a social work team guide to help give you the support for any of these needs? -> No documented in this encounter [facility] 08-05-2023 Instructions Christine Morgan APRN.CNP - 08/05/2023 2:43 PM EDT Start the macrobid. Start the fluconazole. Schedule the MRI. Let us know if no better/worsening. documented in this encounter [facility] 08-05-2023 History of Present illness Narrative This is a 73 year old female who presents today with: Patient presents with: Recheck: Follow up Hospital Follow Up: [facility] dx:SBO HISTORY OF PRESENT ILLNESS: Mary Jane De Paz is a 73 year old female. Patient presents with: Recheck: Follow up Hospital Follow Up: [facility] dx:SBO Pt presents today for hospital follow-up. Pt went to the ER on 07/26/23 -- [facility]. Went to the ER with complaint of vomiting and pain in the abdomen that started the previous day. Had CT. Transferred to [place]. Got to [place] and had surgery that day. Refers she immediately felt better after surgery. Pain and nausea was much better. Copied from discharge summary. HOSPITAL COURSE: Patient presented to the hospital with abdominal pain a/w nausea and vomiting. W/u at [facility] demonstrated obstruction Samina limb at the level of JJ anastomosis came to the hospital underwent laparoscopic internal hernia reduction identified at pseudo-Connor's defect on 07/26/2023. After surgery, she went to the nursing floor for observation and she was started on oral pain medications and a clear liquid diet. You were tolerating full liquid diet, pain was controlled and you were discharged home. Discharged on 07/28/23. Since being home, she is doing well. Thinks that she has a UTI and a yeast infection. Having urinary frequency. Urine is very yellow. Having burning/itching. No discharge. Since being home, doing well. Getting around okay. Appetite has been okay. Fluids could improve. No n/v. Some diarrhea, and some constipation. PAST MEDICAL HISTORY: PAST MEDICAL HISTORY Diagnosis Date Allergic rhinitis Arthritis [facility], knee Asthma CKD (chronic kidney disease) 11/01/2018 Class 3 severe obesity with serious comorbidity and body mass index (BMI) of 40.0 to 44.9 in adult ([facility]) 08/19/2018 Coronary artery disease 10/28/[address] Salazar Fracture of right hip ([facility]) GERD (gastroesophageal reflux disease) History of transfusion HTN (hypertension) Hypothyroidism Mixed hyperlipidemia NIDDM (non-insulin dependent 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) MARIBEL on CPAP CPAP 9Cm Osteoarthritis of hip Renal lesion 01/15/2015 Suggest renal US every 1-2 years per PCP or nephro. Snoring Type 2 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 with hyperglycemia, with long-term current use of insulin ([facility]) 1999 PAST SURGICAL HISTORY Procedure Laterality Date ABDOMINAL SURGERY HX COLONOSCOPY 11/05/2016 Tammi- divertiuclosis, internal hemorrhoids, repeat in 5 years COLONOSCOPY 04/02/2022 repeat in 5 years due to reported prior history of polyps COSMETIC ASSESSMENT EGD 11/05/2016 Tammi- gastritis EGD 09/08/2018 /Gastritis EGD 04/02/2020 EGD 04/02/2022 EYE SURGERY HX Bilateral cataract extraction 2010's GASTRECTOMY,PART DISTAL;W/GASTRODUODENOSTO GASTRIC BYPASS HX 12/13/2018 Laparoscopic Samina-en-Y gastric bypass HIP SURGERY HX Screws replaced JOINT REPLACEMENT HX OOPHORECTOMY PARTIAL OR TOTAL PAST SURGICAL HISTORY OF 2009 hemmroidectomy/sphincterectomy - Dr Nichole PAST SURGICAL HISTORY OF 2008 total left knee replacement PAST SURGICAL HISTORY OF 2003 partial right knee replacement PAST SURGICAL HISTORY OF 1990 total hysterectomy PAST SURGICAL HISTORY OF 2010 lDr Mansoor - [place] elbow fracture - traumatic. radial head replacement PAST SURGICAL HISTORY OF Bilateral 2016 hand surgery PAST SURGICAL HISTORY OF Left RELEASE CONTRACTURE DEQUERVAINS S INSERT PINN METAL NTRL HIP Right 11/17/2021 SKIN BIOPSY HX TOTAL HIP REPLACEMENT Right TOTAL KNEE REPLACEMENT Right 09/15/2022 TUBAL LIGATION HX VAGINAL HYSTERECTOMY ALLERGIES Vicodin [Hydrocodone-Acetaminophen] MEDICATIONS Current Outpatient Medications Medication Sig acetaminophen (TYLENOL) 500 mg tablet Take 2 tablets by mouth every [address] (PROTONIX) 40 mg tablet Take 1 tablet by mouth daily at 6 am. senna-docusate (SENNA-S) 8.6-50 mg per tablet Take 1 tablet by mouth two times a day. traMADol (ULTRAM) 50 mg tablet Take 1 tablet by mouth every 8 hours as needed for up to 10 days. blood sugar diagnostic (BLOOD GLUCOSE TEST) test strip Test blood sugar(s) 1 times daily and as needed for symptoms. Dx: Type 2 DM - Controlled E11.9 Insulin: No Lancets Test blood sugar(s) 1 times daily and prn symptoms. Dx: Type 2 DM - Controlled E11.9 Insulin: No melatonin 10 mg tab Take 1 tablet by mouth at bedtime as needed for insomnia. esomeprazole (NEXIUM) 40 mg capsule TAKE ONE CAPSULE BY MOUTH twice daily. traZODone (DESYREL) 100 mg tablet Take 2 tablets by mouth daily at bedtime. buPROPion XL (WELLBUTRIN XL) 300 mg 24 hr tablet Take 1 tablet by mouth once daily. lisinopril (ZESTRIL) 20 mg tablet Take 1 tablet by mouth once daily. Calcium Citrate 250 mg calcium tab Take 250 mg by mouth. pregabalin (LYRICA) 75 mg capsule Take 1 capsule by mouth daily at bedtime for 90 days. famotidine (PEPCID) 20 mg tablet Take 1 tablet by mouth two times a day as needed (GERD). atorvastatin (LIPITOR) 20 mg tablet Take 1 tablet by mouth daily at bedtime. For cholesterol. glimepiride (AMARYL) 1 mg tablet Take 1 tablet by mouth daily with breakfast. ondansetron (ZOFRAN) 8 mg tablet Take 1 tablet by mouth every 8 hours as needed for nausea/vomiting. Blood-Glucose Sensor (FREESTYLE JAUN 3 SENSOR) guido 1 Each as directed. coffee xt/phosphatidyl serine (NEURIVA ORIGINAL ORAL) Take 2 tablets by mouth once daily. diclofenac (VOLTAREN) 1 % topical gel Apply 4 g to affected area four times daily. levothyroxine (SYNTHROID) 100 mcg tablet Take 1 tablet by mouth once daily. dulaglutide (TRULICITY) 0.75 mg/0.5 mL pen injector Inject 0.75 mg subcutaneously one time a week. Inject dose once per week. Discard Pen After FLUoxetine (PROZAC) 20 mg capsule Take 3 capsules by mouth once daily. APPLE CIDER VINEGAR ORAL Take 1 capsule by mouth once daily. 450 mg capsule OTC NUTRITIONAL SUPPLEMENT Take 1 capsule by mouth once daily. Tumeric - 2000 mg capsule dicyclomine (BENTYL) 20 mg tablet Take 1 tablet by mouth before meals and at bedtime. MULTI-VITAMIN ORAL Take 1 tablet by mouth once daily. Takes bariatric multivitamin daily No current facility-administered medications for this visit. FAMILY HISTORY Problem Relation Age of Onset other (polio) Mother Diabetes Father other (Squamous cell ca) Father other (renal cell ca) Father 1999 other (htn) Father other (Thyroid Cancer) Sister other (thyroid disease) Sister ca other (renal cell ca) Brother 2010 Obesity Paternal Grandmother Obesity Daughter Thyroid Daughter Diabetes Daughter Anesthesia Problems No Family History Social History Tobacco Use Smoking status: Former Packs/day: 1.50 Years: 22.00 Additional pack years: 0.00 Total pack years: 33.00 Types: Cigarettes Quit date: 1989 Years since quittin.3 Smokeless tobacco: Never Vaping Use Vaping Use: Never used Substance Use Topics Alcohol use: Yes Comment: few times a year. mixed drinls/marcelino. 3 in sitting. Drug use: No EXAM: BP 128/84 Pulse 79 Resp 16 SpO2 94% PHYSICAL EXAM: General Appearance: Well appearing, alert, in no acute distress, well-hydrated, well nourished.. Skin: Skin color, texture, turgor normal, no suspicious rashes or lesions. Head: Normocephalic, no masses, lesions, tenderness or abnormalities. Eyes: Anicteric sclera. Extraocular movements are intact. . Lungs: Lungs clear to auscultation. No wheezing, rhonchi, rales.. Heart: RRR without murmur, gallop, or rubs. No ectopy. Abdomen: Abdomen soft, non-tender. Bowel sounds normal. No masses, organomegaly. Incisions well healed. Extremities: No deformities, edema, skin discoloration, clubbing or cyanosis. Good capillary refill. . Neurologic: Gait normal. ASSESSMENT/PLAN: 1. SBO (small bowel obstruction) (HCC) - ICD9: 560.9, ICD10: K56.609 (primary diagnosis) Doing well post-op. Tolerating food/fluids No pain. Moving bowels. Skin well healed. No fever/chills. 2. Acute cystitis without hematuria - ICD9: 595.0, ICD10: N30.00 Start macrobid. Fluconazole for yeast. - URINALYSIS, WITH MICROSCOPIC - URINE CULTURE 3. Pancreatic cyst - ICD9: 577.2, ICD10: K86.2 Due for surveillance. Order is in. Encouraged to schedule. Discussed treatment plan and patient voices understanding. Patient's questions answered appropriately. Medications and potential side effects were discussed and patient voices understanding. Return to the office as scheduled or as needed for worsening/no improvement. Christine Morgan APRN.CD REACTOR OPERATOR documented in this encounter [facility] 08-03-2023 Telephone encounter Note Record ID: [id number] Patient name: Mary Jane De Paz Date: August 03, 2023 - 10:34 Administered by: ANN Protocol: -> Great! Now we are in a secure chat environment. Protecting your health information is important to us. Ok, let's get started. Please verify your name and date of . Please click on the button with your first name. -> Mary Jane Got it. On to the next question... Select the button with your last name. -> Baldev Got it, thank you. Please enter your date of in MM/DD/YYYY format:(e.g., 04/10/1969 for Apr 10, 1969) -> 1950 Thank you for verifying your information. I'd like to ask you a few questions about how your recovery is going. Have you experienced any new or worsening symptoms since returning home? -> No I'm glad to hear that. Have you had a hospital follow-up appointment yet since your discharge? -> No Why do you think you will not be able to attend? -> Appointment scheduled for a future date Excellent. Many patients have concerns about their medication once they are home. Do you have any questions about taking your medications or which medications you should be on? -> No Good! When you were discharged from the hospital were you discharged home with home health care services? -> No Ok thanks for confirming. When you were discharged from the hospital were you given orders to obtain medical equipment? -> No Ok. Thank you for your time and allowing us to care for you. We will check in on you over the next four weeks to ensure you continue to recover and support your needs. In the meantime, please reach out to your PCP for any questions or concerns.Thank you for choosing [facility]! -> When you were discharged from the hospital were you given orders to obtain medical equipment? -> No Ok. Thank you for your time and allowing us to care for you. We will check in on you over the next four weeks to ensure you continue to recover and support your needs. In the meantime, please reach out to your PCP for any questions or concerns.Thank you for choosing [facility]! -> When you were discharged from the hospital were you given orders to obtain medical equipment? -> No [facility] 08-03-2023 Miscellaneous Notes Record ID: [id number] Patient name: Mary Jane De Paz Date: August 03, 2023 - 10:34 Administered by: ANN Protocol: -> Great! Now we are in a secure chat environment. Protecting your health information is important to us. Ok, let's get started. Please verify your name and date of . Please click on the button with your first name. -> Mary Jane Got it. On to the next question... Select the button with your last name. -> Baldev Got it, thank you. Please enter your date of in MM/DD/YYYY format:(e.g., 04/10/1969 for Apr 10, 1969) -> 1950 Thank you for verifying your information. I'd like to ask you a few questions about how your recovery is going. Have you experienced any new or worsening symptoms since returning home? -> No I'm glad to hear that. Have you had a hospital follow-up appointment yet since your discharge? -> No Why do you think you will not be able to attend? -> Appointment scheduled for a future date Excellent. Many patients have concerns about their medication once they are home. Do you have any questions about taking your medications or which medications you should be on? -> No Good! When you were discharged from the hospital were you discharged home with home health care services? -> No Ok thanks for confirming. When you were discharged from the hospital were you given orders to obtain medical equipment? -> No Ok. Thank you for your time and allowing us to care for you. We will check in on you over the next four weeks to ensure you continue to recover and support your needs. In the meantime, please reach out to your PCP for any questions or concerns.Thank you for choosing [facility]! -> When you were discharged from the hospital were you given orders to obtain medical equipment? -> No Ok. Thank you for your time and allowing us to care for you. We will check in on you over the next four weeks to ensure you continue to recover and support your needs. In the meantime, please reach out to your PCP for any questions or concerns.Thank you for choosing [facility]! -> When you were discharged from the hospital were you given orders to obtain medical equipment? -> No documented in this encounter [facility] 08-03-2023 Telephone encounter Note Record ID: [id number] Patient name: Mary Jane De Paz Date: August 03, 2023 - 08:44 Administered by: ANN Protocol: -> Great! Now we are in a secure chat environment. Protecting your health information is important to us. Ok, let's get started. Please verify your name and date of . Please click on the button with your first name. -> Mary Jane Got it. On to the next question... Select the button with your last name. -> Baldev Got it, thank you. Please enter your date of in MM/DD/YYYY format:(e.g., 04/10/1969 for Apr 10, 1969) -> 1950 Thank you for verifying your information. I'd like to ask you a few questions about how your recovery is going. Have you experienced any new or worsening symptoms since returning home? -> No I'm glad to hear that. Have you had a hospital follow-up appointment yet since your discharge? -> No Why do you think you will not be able to attend? -> Appointment scheduled for a future date Excellent. Many patients have concerns about their medication once they are home. Do you have any questions about taking your medications or which medications you should be on? -> No Good! When you were discharged from the hospital were you discharged home with home health care services? -> No Ok thanks for confirming. When you were discharged from the hospital were you given orders to obtain medical equipment? -> No Ok. Thank you for your time and allowing us to care for you. We will check in on you over the next four weeks to ensure you continue to recover and support your needs. In the meantime, please reach out to your PCP for any questions or concerns.Thank you for choosing [facility]! -> When you were discharged from the hospital were you given orders to obtain medical equipment? -> No [facility] 08-03-2023 Miscellaneous Notes Record ID: [id number] Patient name: Mary Jane De Paz Date: August 03, 2023 - 08:44 Administered by: ANN Protocol: -> Great! Now we are in a secure chat environment. Protecting your health information is important to us. Ok, let's get started. Please verify your name and date of . Please click on the button with your first name. -> Mary Jane Got it. On to the next question... Select the button with your last name. -> Baldev Got it, thank you. Please enter your date of in MM/DD/YYYY format:(e.g., 04/10/1969 for Apr 10, 1969) -> 1950 Thank you for verifying your information. I'd like to ask you a few questions about how your recovery is going. Have you experienced any new or worsening symptoms since returning home? -> No I'm glad to hear that. Have you had a hospital follow-up appointment yet since your discharge? -> No Why do you think you will not be able to attend? -> Appointment scheduled for a future date Excellent. Many patients have concerns about their medication once they are home. Do you have any questions about taking your medications or which medications you should be on? -> No Good! When you were discharged from the hospital were you discharged home with home health care services? -> No Ok thanks for confirming. When you were discharged from the hospital were you given orders to obtain medical equipment? -> No Ok. Thank you for your time and allowing us to care for you. We will check in on you over the next four weeks to ensure you continue to recover and support your needs. In the meantime, please reach out to your PCP for any questions or concerns.Thank you for choosing [facility]! -> When you were discharged from the hospital were you given orders to obtain medical equipment? -> No documented in this encounter [facility] 08-03-2023 Telephone encounter Note Record ID: [id number] Patient name: Mary Jane De Paz Date: August 03, 2023 - 08:43 Administered by: ANN Protocol: -> Great! Now we are in a secure chat environment. Protecting your health information is important to us. Ok, let's get started. Please verify your name and date of . Please click on the button with your first name. -> Mary Jane Got it. On to the next question... Select the button with your last name. -> Baldev Got it, thank you. Please enter your date of in MM/DD/YYYY format:(e.g., 04/10/1969 for Apr 10, 1969) -> 1950 Thank you for verifying your information. I'd like to ask you a few questions about how your recovery is going. Have you experienced any new or worsening symptoms since returning home? -> No I'm glad to hear that. Have you had a hospital follow-up appointment yet since your discharge? -> No Why do you think you will not be able to attend? -> Appointment scheduled for a future date Excellent. Many patients have concerns about their medication once they are home. Do you have any questions about taking your medications or which medications you should be on? -> No Good! When you were discharged from the hospital were you discharged home with home health care services? -> No Ok thanks for confirming. When you were discharged from the hospital were you given orders to obtain medical equipment? -> No [facility] 08-03-2023 Miscellaneous Notes Record ID: [id number] Patient name: Mary Jane De Paz Date: August 03, 2023 - 08:43 Administered by: ANN Protocol: -> Great! Now we are in a secure chat environment. Protecting your health information is important to us. Ok, let's get started. Please verify your name and date of . Please click on the button with your first name. -> Mary Jane Got it. On to the next question... Select the button with your last name. -> Baldev Got it, thank you. Please enter your date of in MM/DD/YYYY format:(e.g., 04/10/1969 for Apr 10, 1969) -> 1950 Thank you for verifying your information. I'd like to ask you a few questions about how your recovery is going. Have you experienced any new or worsening symptoms since returning home? -> No I'm glad to hear that. Have you had a hospital follow-up appointment yet since your discharge? -> No Why do you think you will not be able to attend? -> Appointment scheduled for a future date Excellent. Many patients have concerns about their medication once they are home. Do you have any questions about taking your medications or which medications you should be on? -> No Good! When you were discharged from the hospital were you discharged home with home health care services? -> No Ok thanks for confirming. When you were discharged from the hospital were you given orders to obtain medical equipment? -> No documented in this encounter [facility] 08-03-2023 History of Present illness Narrative POPULATION HEALTH NAVIGATION OUTREACH Action/FYI Received message from ANN to schedule hospital follow up. Patient is already scheduled. Patt Martin Population Health Navigator August 03, 2023 10:11 AM documented in this encounter [facility] 07-29-2023 Telephone encounter Note Record ID: [id number] Patient name: Mary Jane De Paz Date: July 29, 2023 - 10:12 Administered by: ANN Protocol: -> Great! Now we are in a secure chat environment. Protecting your health information is important to us. Ok, let's get started. Please verify your name and date of . Please click on the button with your first name. -> Mary Jane Got it. On to the next question... Select the button with your last name. -> Baldev Got it, thank you. Please enter your date of in MM/DD/YYYY format:(e.g., 04/10/1969 for Apr 10, 1969) -> 1950 Thank you for verifying your information. I'd like to ask you a few questions about how your recovery is going. Since leaving the hospital, do you have any new or worsening symptoms? -> No I'm glad to hear that. We encourage a follow-up appointment with a physician to oversee your recovery. It seems that you already have a follow-up appointment for CHRISTINE MORGAN on August 05, 2023. Are you able to attend? -> Yes Many patients have concerns about their medication once they are home. Do you have any questions about taking your medications or which medications you should be on? -> No [facility] 07-29-2023 Miscellaneous Notes Record ID: [id number] Patient name: Mary Jane De Paz Date: July 29, 2023 - 10:12 Administered by: ANN Protocol: -> Great! Now we are in a secure chat environment. Protecting your health information is important to us. Ok, let's get started. Please verify your name and date of . Please click on the button with your first name. -> Mary Jane Got it. On to the next question... Select the button with your last name. -> Baldev Got it, thank you. Please enter your date of in MM/DD/YYYY format:(e.g., 04/10/1969 for Apr 10, 1969) -> 1950 Thank you for verifying your information. I'd like to ask you a few questions about how your recovery is going. Since leaving the hospital, do you have any new or worsening symptoms? -> No I'm glad to hear that. We encourage a follow-up appointment with a physician to oversee your recovery. It seems that you already have a follow-up appointment for CHRISTINE MORGAN on August 05, 2023. Are you able to attend? -> Yes Many patients have concerns about their medication once they are home. Do you have any questions about taking your medications or which medications you should be on? -> No documented in this encounter [facility] 07-28-2023 Note HNO ID: [id number] Author: ?, ?, ? Service: ? Author Type: ? Type: Plan of Care Filed: 07/29/2023 11:56 Note Text: PHARMACY BEDSIDE DELIVERY SERVICE Patient Name: Mary Jane De Paz The marked outpatient medications were Filled at: [place] and delivered to the patient's bedside to [facility]-27 Medication List START taking these medications acetaminophen 500 mg tablet Commonly known as: TYLENOL Take 2 tablets by mouth every [address] 40 mg tablet Commonly known as: PROTONIX Take 1 tablet by mouth daily at 6 am. senna-docusate 8.6-50 mg per tablet Commonly known as: SENNA-S Take 1 tablet by mouth two times a day. traMADol 50 mg tablet Commonly known as: ULTRAM Take 1 tablet by mouth every 8 hours as needed for up to 10 days. CONTINUE taking these medications APPLE CIDER VINEGAR ORAL atorvastatin 20 mg tablet Commonly known as: LIPITOR Take 1 tablet by mouth daily at bedtime. For cholesterol. blood sugar diagnostic test strip Commonly known as: BLOOD GLUCOSE TEST Test blood sugar(s) 1 times daily and as needed for symptoms. Dx: Type 2 DM - Controlled E11.9 Insulin: No buPROPion XL 300 mg 24 hr tablet Commonly known as: WELLBUTRIN XL Take 1 tablet by mouth once daily. calcium citrate 250 mg calcium tablet diclofenac 1 % topical gel Commonly known as: VOLTAREN Apply 4 g to affected area four times daily. dicyclomine 20 mg tablet Commonly known as: BENTYL Take 1 tablet by mouth before meals and at bedtime. esomeprazole 40 mg capsule Commonly known as: NexIUM TAKE ONE CAPSULE BY MOUTH twice daily. famotidine 20 mg tablet Commonly known as: PEPCID Take 1 tablet by mouth two times a day as needed (GERD). FLUoxetine 20 mg capsule Commonly known as: PROzac Take 3 capsules by mouth once daily. FREESTYLE JAUN 3 SENSOR Guido Generic drug: Blood-Glucose Sensor 1 Each as directed. glimepiride 1 mg tablet Commonly known as: AmaryL Take 1 tablet by mouth daily with breakfast. Lancets Test blood sugar(s) 1 times daily and prn symptoms. Dx: Type 2 DM - Controlled E11.9 Insulin: No levothyroxine 100 mcg tablet Commonly known as: SYNTHROID Take 1 tablet by mouth once daily. lisinopril 20 mg tablet Commonly known as: ZESTRIL Take 1 tablet by mouth once daily. melatonin 10 mg Tab MULTI-VITAMIN ORAL NEURIVA ORIGINAL ORAL ondansetron 8 mg tablet Commonly known as: ZOFRAN Take 1 tablet by mouth every 8 hours as needed for nausea/vomiting. OTC NUTRITIONAL SUPPLEMENT pregabalin 75 mg capsule Commonly known as: LYRICA Take 1 capsule by mouth daily at bedtime for 90 days. traZODone 100 mg tablet Commonly known as: DESYREL Take 2 tablets by mouth daily at bedtime. TRULICITY 0.75 mg/0.5 mL pen injector Generic drug: dulaglutide Inject 0.75 mg subcutaneously one time a week. Inject dose once per week. Discard Pen After You might also be taking other medications not listed above. If you have questions about any of your other medications, talk to the person who prescribed them or your Primary Care Provider. Ananya Farias PAGER: [phone] July 29, 2023 11:55 AM [facility] 07-27-2023 Note HNO ID: [id number] Author: OCTAVIO GARDNER MD Service: General Surgery Author Type: Resident Type: Progress Notes Filed: 07/27/2023 07:58 Note Text: GENERAL SURGERY PROGRESS NOTE PATIENT NAME: Mary Jane De Paz AGE: [age] year old : 1950 SEX: female POD#1: Laparoscopic Internal hernia reduction identified at pseudo-Connor's defect Subjective No adverse events overnight Pain is well controlled No nausea or vomiting Not passing flatus No BM yet Bloated Objective VITAL SIGNS: BP 140/76 Pulse 73 Temp (Src) 97.9 (Oral) Resp 16 Ht 5' 2 (1.58m) Wt 136 lb 11 oz (62.0kg) SpO2 95% BMI 24.99 kg/(m2). O2 Therapy: Room Air, Liters: 2.00 PHYSICAL EXAM: GENERAL: Resting comfortably, not in acute distress. CARDIOVASCULAR: Regular rate and rhythm. LUNG: Nonlabored respirations on room air, no accessory muscle use, good respiratory effort. ABDOMEN: Soft, non-tender, distended. WOUND: clean, dry and intact. LABS: CBC, Coags, BMP, Mg, Phos Recent Labs 07/27/23 0507 07/26/23 1631 07/26/23 0854 WBC 11.41* 16.65* 15.81* HB 13.2 14.8 15.6* HCT 38.8 42.6 45.2 PLT 382 461* 512* NA 133* 133* 133* K 4.2 4.4 4.2 CHLOR 99 97 97 CO2 25 25 26 BUN 14 12 14 CREAT 1.19* 1.07* 1.19* GLUC 143* 164* 212* CA 8.5 9.3 9.9 MG 1.6* 1.7 -- P 4.4 3.2 -- Liver Function, Amylase, AND Lipase Recent Labs 07/26/23 0854 TPROT 7.8 ALB 4.2 ALT 52* AST 35 ALKPHOS 107 TBILI 0.5 LIPASE 17 I/O PAST 24HRS: Intake/Output Summary (Last 24 hours) at 07/27/2023 0752 Last data filed at 07/26/2023 2200 Gross per 24 hour Intake 1350 ml Output -- Net 1350 ml LINE, DRAINS AND AIRWAY: Lines, Drains, and Airways Line Duration Peripheral 07/26/23 1836 Left Antecubital 20 Gauge <1 day SURGERY/PROCEDURE: Procedure(s) and Anesthesia Type: * LAPAROSCOPIC REDUCTION INTERNAL HERNIA - General Assessment/Plan 73 year old female with history of allergic rhinitis, asthma, CKD, morbid obesity s/p laparoscopic samina-en-y gastric bypass (), coronary artery disease, depression, right hip fracture, GERD, hypertension, hypothyroidism, T2DM, fecal incontinence, panniculectomy (11/2022) s/p Laparoscopic Internal hernia reduction identified at pseudo-Connor's defect 07/26/2023 after CTAP revealed obstructed Samina limb at the level of JJ anastomosis with small bowel measuring 4 cm. NEURO/PAIN: Continue current pain regimen. (Tylenol, tramadol) RESP: Incentive spirometer 10 breaths/hr while awake. CARDIAC: None. FEN/GI: CLD. mIVF. Check BMP daily and daily electrolytes repletion. : Monitor UOP. HEM/ID: Daily CBC. PPY: Encourage mobilization, ambulation, and out of bed. SCD while in bed or sitting in a chair. SQH. LINES/TUBES: Appreciate Strict Ins AND Outs. CONSULTS: Evaluation OT/PT. DISPO: RNF. Plan to be discussed with Staff, Wesly Farmer MD. Octavio Gardner MD General Surgery, PGY-1 Personal Pager/Phone: [phone] Service Pager: [phone] ([facility] [place]) For weekday evenings (6PM-6AM) or weekends/holidays, please page [phone] ([facility] weekends/nights) Principal Problem: SBO (small bowel obstruction) (HCC) Active Problems: H/O gastric bypass [facility] 07-26-2023 Note HNO ID: [id number] Author: JACQUES DIAZ AA Service: Anesthesiology Author Type: Software Developer Manager Type: Anesthesia Procedure Notes Filed: 07/26/2023 20:01 Note Text: ANESTHESIOLOGY PROCEDURE NOTE Airway General Information Procedure Start Time/Medication Administration: 07/26/2023 7:40 PM Procedure End Time: 07/26/2023 7:40 PM Patient location during procedure: OR Staffing Anesthesiologist: Tsering Young MD CAA: Jacques Diaz AA Performed by: LIBERTY Indications and Patient Condition Indications for airway management: anesthesia Preoxygenated: yes anesthesia circuit Method: rapid sequence Cricoid Pressure: Yes Final Airway Details Final airway type: endotracheal airway Final Endotracheal Airway: ETT Cuffed: yes Successful intubation technique: direct laryngoscopy Devices used: intubating stylet Endotracheal tube insertion site: oral Blade: Shaylee Blade size: #4 ETT size (mm): 7.0 Measurement (cm): 21 Placement verified by: capnometry Cormack-Lehane Classification: grade I - full view of glottis Number of attempts at approach: 1 Airway not difficult SIGNATURE: GLADYS Millan PATIENT NAME: Mary Jane De Paz DATE: July 26, 2023 TIME: 8:00 PM CSN: [id number] [facility] 07-17-2023 Evaluation note Diagnosis Type 2 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 with stage 3 chronic kidney disease, without long-term current use of insulin, unspecified whether stage 3a or 3b CKD (HCC)- Primary documented in this encounter [facility] History of Present illness Narrative* Jase Dumont RN - 07/15/2023 10:30 AM EDT [facility] Telephonic Outreach Provider Action/FYI -ckd, dm, htn Contacted for: Routine Telephonic Outreach Contact made with patient: No, left message. Pt has upcoming appt w/ pcp 08/05/23; will postpone next outreach call to August; message left w/ this info as well Jase Dumont RN July 15, 2023 10:31 AM * Jase Dumont RN - 07/14/2023 3:57 PM EDT [facility] Telephonic Outreach Provider Action/KRISTOFERI -ckd, dm, htn Contacted for: Routine Telephonic Outreach Contact made with patient: No, left message. Jase Dumont RN July 14, 2023 3:58 PM [facility] Telephone encounter Note * Telephone Encounter - Apple Person - 07/09/2023 10:51 AM EDT Called patient and scheduled for August 04 [facility]04-18-2024 Miscellaneous Notes* Telephone Encounter - Apple Person - 07/09/2023 10:51 AM EDT Called patient and scheduled for August 04 * Telephone Encounter - Ramo Russo LPN - 07/08/2023 2:41 PM EDT Schedulers please assist pt with scheduling appt with Endocrinology. Ramo Russo LPN * Telephone Encounter - Ramo Russo LPN - 07/08/2023 2:40 PM EDT Phoned pt, she states she gets more than 2, but less than 5 low readings a day. Pt also states she mistakenly stopped the glimepiride for a few months, then restarted a couple weeks ago. Pt will stop glimepiride and continue with Trulicity. Ramo Russo LPN * Telephone Encounter - Christine Morgan APRN.CNP - 07/08/2023 12:31 PM EDT Scripts sent for glucometer and supplies. How often is she getting lows, as we may want to stop theglimepiride. I went ahead and put the referral in for endocrinology. Please help schedule. Christine Morgan APRN.JOSEFINA * Telephone Encounter - Ramo Russo LPN - 07/08/2023 11:36 AM EDT Phoned pt for more information. Pt confirms that she is still taking glimepiride 1mg daily but might have missed a few doses in the last week. (Last rx was written 12/19/22 #90 with 0 refills.) Pt also confirms that she is still using Trulicity every Thursday and receiving from [facility]. (Last rx waswritten 05/12/22 #12 with 3 refills.) Ramo Russo LPN * Telephone Encounter - Christine Morgan APRN.CNP - 07/08/2023 11:23 AM EDT See previous message. Is she taking the medications? * Telephone Encounter - Cecily Jama LPN - 07/08/2023 11:19 AM EDT Patient called back, states that at the very least she needs a new meter and strips sent to the pharmacy. States that everything she has is old and . Would like it sent to [facility] [place]. Patient would also like referral to endocrinology. Please advise. * Telephone Encounter - Ramo Russo LPN - 07/06/2023 1:18 PM EDT Per insurance pt's records MUST reflect: -recurrent level 2 hypoglycemic events (glucose <54) that persists despite multiple (2 or more) attempts to adjust medications and/or modify DM tx plan. *last medication adjustment was decreasing glimepiride which was over 7 months ago. -hx of 1 level 3 hypoglycemic event (glucose <54) characterized by altered mental state and/or physical state requiring 3rd alliance party assistance (ER/Hospital) for tx. *pt has not received tx at an ER/hospital for a level 3 hypoglycemic episode per chart notes. Phone call to pt, LM to return call to office. Please notify of above info. Also, see questions below: Questions for pt: Is she still using glimepiride 1mg daily? Is she still using Trulicity? [facility] Telephone encounter Note * Telephone Encounter - Ramo Russo LPN - 07/08/2023 2:41 PM EDT Schedulers please assist pt with scheduling appt with Endocrinology. Ramo Russo LPN [facility]04-17-2024 Telephone encounter Note* Telephone Encounter - Ramo Russo LPN - 07/08/2023 2:40 PM EDT Phoned pt, she states she gets more than 2, but less than 5 low readings a day. Pt also states she mistakenly stopped the glimepiride for a few months, then restarted a couple weeks ago. Pt will stop glimepiride and continue with Trulicity. Ramo Russo LPN [facility]04-17-2024 Telephone encounter Note* Telephone Encounter - Christine Morgan APRN.CNP - 07/08/2023 12:31 PM EDT Scripts sent for glucometer and supplies. How often is she getting lows, as we may want to stop theglimepiride. I went ahead and put the referral in for endocrinology. Please help schedule. Christine Morgan APRN.JOSEFINA [facility]-17-20[facility] Telephone encounter Note* Telephone Encounter - Ramo Russo LPN - 07/08/2023 11:36 AM EDT Phoned pt for more information. Pt confirms that she is still taking glimepiride 1mg daily but might have missed a few doses in the last week. (Last rx was written 12/19/22 #90 with 0 refills.) Pt also confirms that she is still using Trulicity every Thursday and receiving from [facility]. (Last rx waswritten 05/12/22 #12 with 3 refills.) Ramo Russo LPN [facility]04-17-2024 Telephone encounter Note* Telephone Encounter - Christine Morgan APRN.CNP - 07/08/2023 11:23 AM EDT See previous message. Is she taking the medications? [facility]04-17-2024 Telephone encounter Note* Telephone Encounter - Cecily Jama LPN - 07/08/2023 11:19 AM EDT Patient called back, states that at the very least she needs a new meter and strips sent to the pharmacy. States that everything she has is old and . Would like it sent to [facility] [place]. Patient would also like referral to endocrinology. Please advise. [facility] History of Present illness Narrative* Delfin Kerr MD - 07/07/2023 4:06 PM EDTAssociated Order(s): Medium Joint Arthro/Inj: R ulnocarpal Post-Procedure Diagnose(s): Pain of ulnar side of wrist Delfin Kerr MD Department of Orthopaedics Orthopaedics [address] [place] [id number] Dept: [phone] July 07, 2023 CHIEF COMPLAINT: Established Patient and Pain of the Right Wrist HPI Been having troubles with the right wrist for quite some time now. She denies any specific injury but does report a fracture to that wrist many years ago. Sometimes can be as painful as 9 out of 10. Prior injection did seem to have helped a bit. She does take some anti-inflammatories, but more recently has been using some turmeric etc. 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 ASSESSMENT: M25.539 Pain of ulnar side of wrist (primary encounter diagnosis) PLAN: She would like to try repeat injection today. Ms. Mary Jane De Paz was advised as to contrast therapies and/or to take analgesics/anti-inflammatories as needed and all contraindications were reviewed. OBJECTIVE: Ms. Mary Jane De Paz is a pleasant 73 year old in no apparent distress. Gen:There were no vitals taken for this visit. nl development, non obese, no deformities ENT: Normocephalic, normal hearing, moist mucosa CV: Pulses:Radial= 2+ and symmetric, capillary refill < 2 secs, no peripheral edema/varicosities Skin: no rash, bruising or lesions. Good turgor. Psych: cooperative and appropriate, alert and oriented x 3, good mood and affect. Musculoskeletal: Mild swelling over the ulnar carpal joint. Nontender to palpation in this location as well. Tenderness in the fossa. Pain with stressing the DRUJ. Flexion is approximately 40 degrees extension of 40 degrees. Medium Joint Arthro/Inj: R ulnocarpal Informed Consent Consent Obtained: Verbal [place] Protocol A moment to CARE was completed. SIGN IN Personnel directly involved with the procedure wore the appropriate PPE. Special Equipment: Yes Patient/Surrogate Stated/Verified: Patient name, Date of , Relevant allergies and Intended procedure TIME OUT Intended patient and procedure match the source document(s). Consent documented and matches the intended procedure. Relevant labs, photos, and/or imaging studies have been reviewed. Correct side/site marked and visible. Medications required for procedure verified. No fire risk assessment and interventions applicable. No implant(s) inserted. 07/07/2023 4:12 PM The procedure site was prepped in the usual sterile fashion. Medications: 3 mg betamethasone acetate-betamethasone sodium phosphate 6 mg/mL Anesthetics: 1 mL lidocaine (PF) 10 mg/mL (1 %) Outcome: tolerated well, no immediate complications Post-injection instructions were reviewed with the patient and the patient voiced understanding of these instructions. SIGN OUT No specimen collected. All instruments, equipment, possible retained foreign bodies accounted for. Post-procedure follow-up management communicated and Plan of Care Visit completed when applicable Imaging: Impression IMPRESSION: No acute fracture. Degenerative disease of the right wrist. Senior Laboratory Technician: SEFERINO Transcribe Date/Time: Feb 13 2023 9:07A Dictated by : SAIMA BARROSO MD This examination was interpreted and the report reviewed and electronically signed by: SAIMA BARROSO MD on Feb 13 2023 9:13AM EST Results-Findings * * *Final Report* * * DATE OF EXAM: Feb 09 2023 1:08PM [id number] [id number] - XR WRIST 3V PA/LAT/OBL RT / PROCEDURE REASON: Pain in right wrist * * * * Physician Interpretation * * * * EXAMINATION: XR WRIST 3V PA/LAT/OBL RT CLINICAL HISTORY: Right wrist pain Technique: XR WRIST 3V PA/LAT/OBL RT -- RIGHT with 3 views on 3 images Comparison: None RESULT: No acute fracture or dislocation. Narrowing of the triscaphe joint and first carpometacarpal joint with marginal osteophytes. Partially visualized hardware at the right second and third metacarpophalangeal joints. Positive ulnar variance. Supporting Subjective Information Below: Past Surgical History: PAST SURGICAL HISTORY Procedure Laterality Date ABDOMINAL SURGERY HX COLONOSCOPY 11/05/2016 Tammi- divertiuclosis, internal hemorrhoids, repeat in 5 years COLONOSCOPY 04/02/2022 repeat in 5 years due to reported prior history of polyps COSMETIC ASSESSMENT EGD 11/05/2016 Tammi- gastritis EGD 09/08/2018 /Gastritis EGD 04/02/2020 EGD 04/02/2022 EYE SURGERY HX Bilateral cataract extraction 2009' GASTRECTOMY,PART DISTAL;W/GASTRODUODENOSTO GASTRIC BYPASS HX 12/13/2018 Laparoscopic Samina-en-Y gastric bypass HIP SURGERY HX Screws replaced JOINT REPLACEMENT HX OOPHORECTOMY PARTIAL OR TOTAL PAST SURGICAL HISTORY OF 2009 hemmroidectomy/sphincterectomy - Dr Nichole PAST SURGICAL HISTORY OF 2008 total left knee replacement PAST SURGICAL HISTORY OF 2003 partial right knee replacement PAST SURGICAL HISTORY OF 1990 total hysterectomy PAST SURGICAL HISTORY OF 2010 lDr Mansoor - [place] elbow fracture - traumatic. radial head replacement PAST SURGICAL HISTORY OF Bilateral 2016 hand surgery PAST SURGICAL HISTORY OF Left RELEASE CONTRACTURE DEQUERVAINS S INSERT PINN METAL NTRL HIP Right 11/17/2021 SKIN BIOPSY HX TOTAL HIP REPLACEMENT Right TOTAL KNEE REPLACEMENT Right 09/15/2022 TUBAL LIGATION HX VAGINAL HYSTERECTOMY Medications: Current Outpatient Medications Medication Sig melatonin 10 mg tab Take 1 tablet by mouth at bedtime as needed for insomnia. esomeprazole (NEXIUM) 40 mg capsule TAKE ONE CAPSULE BY MOUTH twice daily. traZODone (DESYREL) 100 mg tablet Take 2 tablets by mouth daily at bedtime. buPROPion XL (WELLBUTRIN XL) 300 mg 24 hr tablet Take 1 tablet by mouth once daily. lisinopril (ZESTRIL) 20 mg tablet Take 1 tablet by mouth once daily. Calcium Citrate 250 mg calcium tab Take 250 mg by mouth. famotidine (PEPCID) 20 mg tablet Take 1 tablet by mouth two times a day as needed (GERD). atorvastatin (LIPITOR) 20 mg tablet Take 1 tablet by mouth daily at bedtime. For cholesterol. glimepiride (AMARYL) 1 mg tablet Take 1 tablet by mouth daily with breakfast. coffee xt/phosphatidyl serine (NEURIVA ORIGINAL ORAL) Take 2 tablets by mouth once daily. levothyroxine (SYNTHROID) 100 mcg tablet Take 1 tablet by mouth once daily. dulaglutide (TRULICITY) 0.75 mg/0.5 mL pen injector Inject 0.75 mg subcutaneously one time a week. Inject dose once per week. Discard Pen After FLUoxetine (PROZAC) 20 mg capsule Take 3 capsules by mouth once daily. APPLE CIDER VINEGAR ORAL Take 1 capsule by mouth once daily. 450 mg capsule OTC NUTRITIONAL SUPPLEMENT Take 1 capsule by mouth once daily. Tumeric - 2000 mg capsule MULTI-VITAMIN ORAL Take 1 tablet by mouth once daily. Takes bariatric multivitamin daily pregabalin (LYRICA) 75 mg capsule Take 1 capsule by mouth daily at bedtime for 90 days. ondansetron (ZOFRAN) 8 mg tablet Take 1 tablet by mouth every 8 hours as needed for nausea/vomiting. Blood-Glucose Sensor (MobileVedaSTYLE JAUN 3 SENSOR) guido 1 Each as directed. diclofenac (VOLTAREN) 1 % topical gel Apply 4 g to affected area four times daily. dicyclomine (BENTYL) 20 mg tablet Take 1 tablet by mouth before meals and at bedtime. No current facility-administered medications for this visit. Allergies: Vicodin [Hydrocodone-Acetaminophen] ROS: General (negative for fatigue, malaise, weight loss/gain) HEENT (negative for headache, earache, recent vision changes, sinus pain, sore throat) Respiratory (no recent shortness of breath, hemoptysis) CV (negative for chest tightness, palpitations) Musculoskeletal (see HPI) Psych (no depression, anxiety) Delfin Kerr MD [facility] Telephone encounter Note * Telephone Encounter - Ramo Russo LPN - 07/06/2023 1:18 PM EDT Per insurance pt's records MUST reflect: -recurrent level 2 hypoglycemic events (glucose <54) that persists despite multiple (2 or more) attempts to adjust medications and/or modify DM tx plan. *last medication adjustment was decreasing glimepiride which was over 7 months ago. -hx of 1 level 3 hypoglycemic event (glucose <54) characterized by altered mental state and/or physical state requiring 3rd alliance party assistance (ER/Hospital) for tx. *pt has not received tx at an ER/hospital for a level 3 hypoglycemic episode per chart notes. Phone call to pt, LM to return call to office. Please notify of above info. Also, see questions below: Questions for pt: Is she still using glimepiride 1mg daily? Is she still using Trulicity? [facility]04-12-[facility] History of Present illness Narrative* Nicole Coronado PA-C - 07/03/2023 7:59 AM EDT Opened in error. Patient checked in at wrong location. [facility] Miscellaneous Notes* Telephone Encounter - Ramo Russo LPN - 06/22/2023 2:27 PM EDT Pt read MC message on 06/19/23 at 12:38pm without response. Encounter closed. Ramo Russo LPN * Telephone Encounter - Ramo Russo LPN - 06/19/2023 12:38 PM EDT MC message sent. Ramo Russo LPN * Telephone Encounter - Christine Morgan APRN.JOSEFINA - 06/19/2023 12:27 PM EDT Can please let patient know that we received a denial for the CGM. She likely will need to start using a glucometer to check blood sugars. Does she still have a glucometer/supplies? * Telephone Encounter - Mary Braxton LPN - 06/18/2023 3:54 PM EDT Patient has been identified by name and date of : Yes, Provider Christine Huang CNP Date 06/18/23 Time 3:55 pm Type of form: Medical Necessity [facility] form Form received via: Fax When form is completed, fax form to fax number provided. Form has been forwarded to: [phone] Nurse Mary Braxton LPN * Telephone Encounter - Mary Braxton LPN - 06/18/2023 2:18 PM EDT Spoke with Jaqueline at [facility] and the problem below is still not worked out. She is faxingback form with information needed. Mary Braxton LPN * Telephone Encounter - Gely Gonzalez MA - 06/01/2023 12:17 PM EDT Spoke with Ab. He states that the guidelines changed 07/06/22 and pt was approved [facility] under 54. I noted on her 02/02/23 visit, it notes that her blood sugars range from 50's-200's. He thinks this will be sufficient. Last office visit alcira is from 07/2022. Office visit faxed to Ab's personal fax number for review. * Telephone Encounter - Isa Packer MA - 06/01/2023 9:41 AM EDT Tried to reach company but was on hold for 10 minutes. Will need to try again later. Isa Packer MA * Telephone Encounter - Christine Morgan APRN.JOSEFINA - 05/29/2023 4:34 PM EST Can we please check with Ab Hinton (phone number on form). 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 Is that not the case? * Telephone Encounter - Ramo Russo LPN - 05/26/2023 9:16 AM EST Form received and placed on provider desk. Based on Medicare requirements, pt is non insulin DM anddoes not meet Medicare requirements for CGM. See form for requirements. Will hold for PCP to address upon return. * Telephone Encounter - Ramo Russo LPN - 05/25/2023 2:31 PM EST Provider has been out of the office since 05/07 and we have not received fax from [facility]. Phoned [facility], notified of the same. They will re fax form. Ramo Russo LPN * Telephone Encounter - Mary Braxton LPN - 05/25/2023 2:20 PM EST Checking to see if fax was received. Mary Braxton LPN * Telephone Encounter - Mary Braxton LPN - 05/20/2023 2:33 PM EST Nila with [facility]. She is calling to see if you received their request for office notes they faxed today 05-20-23. She is requesting the 2 most recent charts notes. FAX: [phone]. Mary Braxton LPN documented in [facility] History of Present illness Narrative* Jase Dumont RN - 06/15/2023 3:45 PM EDT [facility] Telephonic Outreach Provider Action/FYI -ckd, dm, htn Pt forgot to get blood work drawn for kidney function recheck, states she has been keeping herself well hydrated as mentioned in last outreach call; she declined having schedulers reach out to her for a lab appt; she plans to stop in on her own to have drawn Contacted for: Routine Telephonic Outreach Contact made with patient: Yes Patient identified by name and date of . Discussed care with patient Are you experiencing any new or worsening symptoms you need to talk about today? No Disease Specific Do you check your blood pressure at home? Yes, Enter readings: 120s-130s Do you have new or worsening shortness of breath with activity? No Do you feel like you are dehydrated for any reason, including not being able to eat or drink normally, or having less urine/much darker urine than normal for you? No Based on payroll director, the following disposition is advised: No symptoms or symptoms present, not severe. Routed to: No Action Needed VIDA Education Provided this Outreach: No Jase Dumont RN June 15, 2023 3:47 PM documented in this encounterK[facility]03[facility]-2024 Miscellaneous Notes* Telephone Encounter - Ramo Russo LPN - 06/15/2023 8:37 AM EDT Patient has been identified by name and date of : Yes Patient phones for refill(s): Requested Prescriptions Pending Prescriptions Disp Refills esomeprazole (NEXIUM) 40 mg capsule 180 capsule 1 Sig: TAKE ONE CAPSULE BY MOUTH twice daily. traZODone (DESYREL) 100 mg tablet 180 tablet 1 Sig: Take 2 tablets by mouth daily at bedtime. Date of last office visit in primary care: 03/11/2023 Date of next office visit in primary care: 08/05/2023 Please advise. Thank you. Ramo Russo LPN. documented in this encounterK[facility] History of Present illness Narrative* Jase Dumont, GRACE - 05/19/2023 2:23 PM EST [facility] Telephonic Outreach Provider Action/FYI -ckd, dm, htn Contacted for: Routine Telephonic Outreach Contact made with patient: Yes Patient identified by name and date of . Discussed care with patient Are you experiencing any new or worsening symptoms you need to talk about today? No Disease Specific Do you check your blood pressure at home? Yes, Enter readings: 120-130/70-80 Do you have new or worsening shortness of breath with activity? No Do you feel like you are dehydrated for any reason, including not being able to eat or drink normally, or having less urine/much darker urine than normal for you? No Pt reminded to keep herself well hydrated as mentioned in phone encounter 05/01/[address] Caraballo, pt will focus on that this week and have blood drawn next week as instructed. She did not recall receiving the above info from the 05/01 call however admits that she could have easily forgotten about speaking w/ someone Based on payroll director, the following disposition is advised: No symptoms or symptoms present, not severe. Routed to: No Action Needed VIDA Education Provided this Outreach: No Jase Dumont RN May 19, 2023 2:26 PM documented in this encounterK[facility]2024 Miscellaneous Notes* Telephone Encounter - Adelaida Douglas - 05/01/2023 1:10 PM EST Patient informed and verbalized understanding. Adelaida Douglas * Telephone Encounter - Dao Caraballo MD - 05/01/2023 12:19 PM EST Labs are stable, except kidney function is slightly lower. 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 Christine Morgan CD REACTOR OPERATOR for an opinion regarding right wrist pain. My final recommendations will be communicated back to the requesting physician by way of shared Medical record or letter to requesting physician via US mail. CHIEF COMPLAINT: Established Patient and Pain of the Right Wrist and Last seen 10/17/21 by BP chronic right knee (and hand pain) Ms. Mary Jane De Paz is a 72 year old female who presents with pain in her right wrist which started bothering her 2 weeks ago. No known injury though she reports that she did break her right wrist maybe 10 years ago. Pain is mainly along the ulnar side of the wrist and is a 9 out of 10 constant throbbing that is worse if she bumps the area. She has had several surgeries this year including a hip replacement, knee replacement and some type of a bariatric procedure, she currently has a abdominal drain in place. She used to take oral anti-inflammatories including Vioxx and Celebrex, she istrying to be more holistic and instead relies on tumeric and apple cider vinegar remedies. She has had a several knuckles replaced in the past, denies any type of known autoimmune condition. 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 We will provide her with a brace to wear during activity. She is not interested in any type ofa oral medication and instead is requesting a corticosteroid injection, we will proceed with injection today. Ms. Mary Jane De Paz was advised as to contrast therapies and/or to take analgesics/anti-inflammatories as needed and all contraindications were reviewed. OBJECTIVE: Ms. Mary Jane De Paz is a pleasant 72 year old in no apparent distress. Gen:There were no vitals taken for this visit. nl development, non obese, no deformities ENT: Normocephalic, normal hearing, moist mucosa CV: Pulses:Radial= 2+ and symmetric, capillary refill < 2 secs, no peripheral edema/varicosities Skin: no rash, bruising or lesions. Good turgor. Psych: cooperative and appropriate, alert and oriented x 3, good mood and affect. Musculoskeletal: Inspection: No evidence of eythema, warmth, bruising, abrasions, scars, deformity or drooping about bilateral upper extremities. No evidence of surgical incisions. No evidence of muscular atrophy. Range of Motion: Elbow flexion/extension WNL. Forearm pronation/supination WNL. Wrist flexion/wrist extension 40-35 degrees. Radial deviation/ulnar deviation WNL. MCP flexion/extension WNL. IP flexion/extension WNL. Palpation: Positive tenderness to palpation: DRUJ and ulna styloid. Stability: DRUJ: positive. In addition to the comprehensive evaluation, assessment and plan outlined above, and as a distinct and separate element to the visit today, separate from a DME order of compression brace , we have made the determination to proceed with an injection to aid in the management of the patient's condition. We discussed the risks, benefits, alternatives and expected outcomes of this injection in detail, and the patient agreed to proceed. The procedure was performed as detailed below. Medium Joint Arthro/Inj: R ulnocarpal Informed Consent Consent Obtained: Verbal [place] Protocol A moment to CARE was completed. SIGN IN Sign in communication not applicable due to emergent procedure. Personnel directly involved with the procedure wore the appropriate PPE. Special Equipment: Yes Patient/Surrogate Stated/Verified: Patient name, Date of , Intended procedure and Relevant allergies TIME OUT Intended patient and procedure match the source document(s). Consent documented and matches the intended procedure. Relevant labs, photos, and/or imaging studies have been reviewed. Correct side/site marked and visible. Medications required for procedure verified. No fire risk assessment and interventions applicable. No implant(s) inserted. 02/09/2023 2:19 PM The procedure site was prepped in the usual sterile fashion. Medications: 3 mg betamethasone acetate-betamethasone sodium phosphate 6 mg/mL Anesthetics: 0.5 mL lidocaine (PF) 10 mg/mL (1 %) Outcome: tolerated well, no immediate complications Post-injection instructions were reviewed with the patient and the patient voiced understanding of these instructions. SIGN OUT All instruments, equipment, possible retained foreign bodies accounted for. Imaging: See Epic Supporting Subjective Information Below: Past Surgical History: PAST SURGICAL HISTORY Procedure Laterality Date ABDOMINAL SURGERY HX COLONOSCOPY 11/05/2016 Tammi- divertiuclosis, internal hemorrhoids, repeat in 5 years COLONOSCOPY 04/02/2022 repeat in 5 years due to reported prior history of polyps COSMETIC ASSESSMENT EGD 11/05/2016 Tammi- gastritis EGD 09/08/2018 /Gastritis EGD 04/02/2020 EGD 04/02/2022 EYE SURGERY HX Bilateral cataract extraction 2009' GASTRECTOMY,PART DISTAL;W/GASTRODUODENOSTO GASTRIC BYPASS HX 12/13/2018 Laparoscopic Samina-en-Y gastric bypass HIP SURGERY HX Screws replaced JOINT REPLACEMENT HX OOPHORECTOMY PARTIAL OR TOTAL PAST SURGICAL HISTORY OF 2009 hemmroidectomy/sphincterectomy - Dr Nichole PAST SURGICAL HISTORY OF 2008 total left knee replacement PAST SURGICAL HISTORY OF 2003 partial right knee replacement PAST SURGICAL HISTORY OF 1990 total hysterectomy PAST SURGICAL HISTORY OF 2010 lDr Mansoor - [place] elbow fracture - traumatic. radial head replacement PAST SURGICAL HISTORY OF Bilateral 2016 hand surgery PAST SURGICAL HISTORY OF Left RELEASE CONTRACTURE DEQUERVAINS S INSERT PINN METAL NTRL HIP Right 11/17/2021 SKIN BIOPSY HX TOTAL HIP REPLACEMENT Right TOTAL KNEE REPLACEMENT Right 09/15/2022 TUBAL LIGATION HX VAGINAL HYSTERECTOMY 1979' Medications: Current Outpatient Medications Medication Sig Calcium Citrate 250 mg calcium tab Take 250 mg by mouth. pregabalin (LYRICA) 75 mg capsule Take 1 capsule by mouth daily at bedtime for 90 days. famotidine (PEPCID) 20 mg tablet Take 1 tablet by mouth two times a day as needed (GERD). atorvastatin (LIPITOR) 20 mg tablet Take 1 tablet by mouth daily at bedtime. For cholesterol. traZODone (DESYREL) 100 mg tablet Take 2 tablets by mouth daily at bedtime. lisinopril (ZESTRIL) 10 mg tablet Take 1 tablet by mouth once daily. glimepiride (AMARYL) 1 mg tablet Take 1 tablet by mouth daily with breakfast. ondansetron (ZOFRAN) 8 mg tablet Take 1 tablet by mouth every 8 hours as needed for nausea/vomiting. Blood-Glucose Sensor (FREESTYLE JAUN 3 SENSOR) guido 1 Each as directed. coffee xt/phosphatidyl serine (NEURIVA ORIGINAL ORAL) Take 2 tablets by mouth once daily. diclofenac (VOLTAREN) 1 % topical gel Apply 4 g to affected area four times daily. levothyroxine (SYNTHROID) 100 mcg tablet Take 1 tablet by mouth once daily. esomeprazole (NEXIUM) 40 mg capsule TAKE ONE CAPSULE BY MOUTH twice daily. buPROPion XL (WELLBUTRIN XL) 300 mg 24 hr tablet Take 1 tablet by mouth once daily. dulaglutide (TRULICITY) 0.75 mg/0.5 mL pen injector Inject 0.75 mg subcutaneously one time a week. Inject dose once per week. Discard Pen After FLUoxetine (PROZAC) 20 mg capsule Take 3 capsules by mouth once daily. APPLE CIDER VINEGAR ORAL Take 1 capsule by mouth once daily. 450 mg capsule OTC NUTRITIONAL SUPPLEMENT Take 1 capsule by mouth once daily. Tumeric - 2000 mg capsule dicyclomine (BENTYL) 20 mg tablet Take 1 tablet by mouth before meals and at bedtime. MULTI-VITAMIN ORAL Take 1 tablet by mouth once daily. Takes bariatric multivitamin daily No current facility-administered medications for this visit. Allergies: Vicodin [Hydrocodone-Acetaminophen] ROS: General (negative for fatigue, malaise, weight loss/gain) HEENT (negative for headache, earache, recent vision changes, sinus pain, sore throat) Respiratory (no recent shortness of breath, hemoptysis) CV (negative for chest tightness, palpitations) Musculoskeletal (see HPI) Psych (no depression, anxiety) This note was partially generated using Quik.io voice recognition system, and there may be some incorrect words, spellings, and punctuation that were not noted in checking the note before saving. Nicole Coronado PA-C * Keke Montague Ma - 02/09/2023 1:10 PM EST Patient presents with: Right Wrist - Established Patient, Pain Last seen 10/17/21 by BP chronic right knee : and hand pain AMB ROOMING INTAKE FLOWSHEET DATA Pain Pain Level: 9 Pain Location: Wrist-Right Description: Sharp Duration Amount of Time: 2 Duration Units: Weeks Frequency: Intermittent Intervention/Comfort measure: (None) Patient states she is having pain in her right wrist that started about 2 weeks ago. No specific injury but she did fracture both of her wrist and left elbow 10 years ago and required a pin in her elbow.She is having difficulty opening jars and with lifting. Patient is right hand dominant. X-rays done today. Taking no med's for the pain. documented in this encounterK[facility]11-20-2023 History of Present illness Narrative* Abi Paez RT(R) - 02/09/2023 1:00 PM EST Radiology Service Progress Note PATIENT NAME: Mary Jane De Paz DATE OF SERVICE: February 09, 2023 TIME: 1:09 PM PATIENT IDENTITY VERIFICATION COMPLETED USING TWO (2) IDENTIFIERS: Name and Date of confirmedby patient verbally. FALL SCREENING: Has the patient had 2 falls in the last year or 1 fall with injury or currently using an Ambulatory Assistive Device (Walker, Cane, Wheelchair, Crutches, etc.)? Yes, Patient High Riskfor Falls What interventions were put in place to prevent falls during this visit? Increased Observations by Caregivers PATIENT GENDER DATA: Female. status: : No status: NO. PATIENT RELEVANT IMPLANT DATA REVIEWED: Not Applicable RADIOLOGY DEPARTMENT: General X-ray: Exam(s) Completed: Upper Extremity X- Ray(s): Wrist, right PERIPHERAL IV DATA: Not applicable SIGNED BY: RT Adolfo(R) February 09, 2023 1:09 PM documented in this encounterKettering [facility]10-26-2023 History of Present illness Narrative* Erum Copeland PT, DPT - 01/15/2023 12:25 PM EDT Episode Visit Count: 10 Therapist That Will Accept/Oversee The Plan Of Care: Erum copeland PT, DPT Start of Care Date: 10/08/22 Onset Date: 09/15/22 Plan of Care Certification Date: 01/15/23 Next Certification Due Date: 02/26/23 Patient Identified by Name and Date of : Yes REHABILITATION AND SPORTS THERAPY PHYSICAL THERAPY PROGRESS REPORT PLAN OF CARE UPDATE: Assessment: Mary Jane De Paz demonstrates moderate improvement in rising from a chair, standing, walking, stair negotiation, and sleeping. She has progressed toward goals. Patient continues to present with impairments in strength that interfere with standing, walking, rising from a chair (patient reports stairs are a piece of cake but she still at times goes up and down non-reciprocally) . Current prognosis is Excellent due to: current objective clinical presentation, good overall health status, acuteness of condition, good support system/ coping skills . She will benefit from continued skilled therapy services to meet the updated goals for this plan of care as noted below. Goals updated on 01/15/2023. [place] in home exercise program. -- Progressing toward. Patient will decrease pain to 0/10 at rest and with functional activities to allow patient to improve ambulation, transfers, and standing tolerance for ADLs. -- Progressing toward Patient will increase active ROM of right knee to 0 to 120 degrees to allow pt to to improve gait mechanics / gait pattern. -- Progressing toward Patient will demonstrate increase in bilateral lower extremity strength to 5/5 during manual muscle testing in order to improve function for prior functional tasks. -- Progressing toward Normal gait. -- Ongoing. Reciprocal stair negotiation. -- Ongoing Patient Goals: Return to my PLOF Planned Interventions, Frequency, and Duration: 1x/week, 6 weeks Total Number of Visits Planned: 12 (patient has completed /12 sessions) Patient to be seen for Therapeutic exercise (74548), Neuromuscular re-education (63821), Manual therapy (52987), Therapeutic activities (60647), Self-intermediate management (83952), Gait Training (17500) (hot and cold modalities) PLAN FOR NEXT VISIT: Progress as tolerated SUBJECTIVE: Patient currently ambulating without a device, she denies pain in her knee. She does note an occasional twinge with activity. Patient follows up with the surgeon on 01/20. Functional Limitations: standing, walking, rising from a chair (patient reports stairs are a piece of cake but she still at times goes up and down non-reciprocally) Pain: Pain Pain Level: 0 Pain Location: Knee - Right Post Treatment Pain Post Treatment Pain Level: No Change PROMIS Scales Higher is Better 01/12/2023 12/30/2022 11/02/2022 Phys Func - Score - 35 (moderate dysfunction) 40 (mild dysfunction) Phys Func - Percentile - 7 % 16 % Self-Eff Symptom - Score 54 (Average) - 43 (Average) Self-Eff Symptom - Percentile 66 % - 24 % T-scores: mean of general population = 50. 5 points is clinically meaningfully difference Percentiles provide an indication of how the patient's score ranks in relation to the general population. Higher percentile rankings indicate better function/quality of life. 50th percentile is the average of the general population and indicates half of respondents had a worse score. OBJECTIVE MEASURES WITH LEVEL OF FUNCTION: LE AROM R Knee Extension: 0 Degrees R Knee Flexion: 115 Degrees LE Strength R Hip Flexion (L2): 4/5 R Hip ABduction: 4/5 R Hip ADduction: 4+/5 R Knee Extension (L3): 5/5 R Knee Flexion: 5/5 R Ankle Dorsiflexion (L4): 5/5 L Hip Flexion (L2): 4+/5 L Hip ABduction: 4+/5 L Hip ADduction: 4+/5 L Knee Extension (L3): 5/5 L Knee Flexion: 5/5 L Ankle Dorsiflexion (L4): 5/5 TREATMENT: Therapeutic Exercise: 8: MMT, ROM measurements and review of goals for progress summary 9: Shuttle w/ wedge bilateral 43# 2 x 15 reps (increased resistance) 10: Shuttle w/ wedge right LE 12# 2 x 10 reps 11: Spirit stepper manual L1 x10 minutes (not billed) Skilled Intervention: Patient was educated in proper exercise technique and purpose for exercises. Skilled judgment was used in selection of appropriate interventions. Correct performance of therapeutic exercises was facilitated with verbal, visual, and tactile cuing. Billing Therapeutic Exercise Treatment Minutes: 34 Skilled Treatment Time Minutes (timed and untimed codes): 34 Total Session Time (minutes): 44 Session Start Time : 1106 Session Stop Time : 1150 Time spent on recumbent bike not included in billed treatment time. Erum Copeland PT, DPT documented in this encounterKet[facility]10-25-2023 History of Present illness Narrative* Jase Dumont RN - 01/14/2023 3:34 PM EDT [facility] Telephonic Outreach Provider Action/FYI -ckd, dm, htn Now has Wound vac as of 01/09/23 & home care nurse to house 3 times a week; outside wound clinic would not take pt yet as she was still within 90 days of her surgery. Pt now notices more pinkish/red coloring in wound and feels it is starting to show some improvement Contacted for: Routine Telephonic Outreach Contact made with patient: Yes Patient identified by name and date of . Discussed care with patient Are you experiencing any new or worsening symptoms you need to talk about today? No Disease Specific Do you check your blood pressure at home? Yes, Enter readings: 120/70 average glucose Do you have new or worsening shortness of breath with activity? No Do you feel like you are dehydrated for any reason, including not being able to eat or drink normally, or having less urine/much darker urine than normal for you? No Do you check your daily weight at home? Yes, Have you noticed a sudden gain in weight greater than three pounds in a day or three pounds in a week? No Based on payroll director, the following disposition is advised: No symptoms or symptoms present, not severe. Routed to: No Action Needed VIDA Education Provided this Outreach: No Jase Dumont RN January 14, 2023 3:39 PM documented in this encounterCleveland [id number] History of Present illness Narrative* Rafi Fox APRN.CD REACTOR OPERATOR - 01/13/2023 7:59 AM EDT Orthopaedic Office Note: January 08, 2023 7:59 AM Mary Jane De Paz 72 year old History: Mary Jane presents today for follow up. She was last seen on 12/02/22 for right knee pain. She underwent a R TKA (conversion uni to total) with Dr. Patricia on 09/12/22. Please see previous note for fullhistory. In short, she underwent an elective procedure on 11/27/22. She fell when getting out of her car at home. She saw me at that time for increased right knee pain. X-rays showed stable total knee arthroplasty with no acute findings. She was noted to have an LCL sprain as well as persistent allodynia. She was prescribed lyrica and medrol dose pack as well as hinged knee brace. She is here for follow up. Subjective: Significantly improved pain. Still wearing the brace occasionally but coming out of it more frequently. Has not taken the lyrica due to previous side effects with gabapentin. Unfortunately, has developed complication from elective panniculectomy. She is dealing with non-healing open wound on abdomen. She is due to have a wound vac placed soon. No S/S of infection however. Updated ROS: No changes Updated Exam: Right Lower Extremity: KNEE EXAM: Right: Incision well healed. No swelling, erythema or warmth. Range of motion is 0 degrees in extension and 120 degrees of flexion. Pain with ROM: No Effusion: None Tender to the palpation of minimally over LCL, still with some allodynia along lateral aspect of thigh knee, lujan Pain with patellar compression: No Stability: Anterior/Posterior stable and Varus/Valgus stable Hip Exam: flexion to 100+ degrees, full extension, internal/external rotation adequate and no pain with log roll Neurovascular Status: Sensation Intact and Moves foot and ankle up & down Updated Imaging: None today Assessment and Plan: Status post right knee replacement Right knee pain Mary Jane and I discussed her right knee today. Physical exam remains stable. She has had improvement in symptoms. She is coming out of her brace more frequently but reports she still does not trust the knee since her fall. She would like to pursue outpatient PT which I think is reasonable and has been ordered. She can continue with OTC analgesics as needed. I still recommend she start Lyrica which I think will help with nerve pain. She reports she is going to try it and update me if she would like a refill. She will follow up in 6 months. Happy to see sooner if needed. All questions answered. Rafi Fox APRN.CNP Orthopaedic Surgery I spent a total of approximately 25 minutes on the date of the service which included preparing to see the patient, [id number] patient care, completing clinical documentation, obtaining and/or reviewing separately obtained history, performing a medically appropriate examination, counseling and educating the patient/family/caregiver, ordering medications, tests, or procedures, independently interpreting results (not separately reported), communicating results to the patient/family/caregiver, and care coordination (not separately reported). documented in this encounterKettering [facility]10-23-2023 Miscellaneous Notes* Telephone Encounter - Jeannie Ulloa Ma - 01/12/2023 10:05 AM EDT Pt notified via Deol[employer]. Jeannie Ulloa Ma * Telephone Encounter - Christine Morgan APRN.CNP - 01/12/2023 9:42 AM EDT Script sent to [facility]. Christine Morgan APRN.CNP documented in this encounterKettering [facility]10-17-2023 Miscellaneous Notes* Telephone Encounter - Ramo Russo LPN - 01/06/2023 2:25 PM EDT Forms completed and faxed. Ramo Russo LPN * Telephone Encounter - Ramo Russo LPN - 12/22/2022 1:17 PM EDT Type of form: Home Health Care Orders Form received via fax When form is completed, Fax form to [phone] Form has been forwarded to Nurse Practitioner: Savana Russo LPN documented in this encounterKettering [facility]10-16-2023 Miscellaneous Notes* Telephone Encounter - Bria Rowe - 01/05/2023 5:44 PM EDT Patient reviewed for Population Health Medication Adherence Pended the following prescription(s) for review. Requested Prescriptions Pending Prescriptions Disp Refills atorvastatin (LIPITOR) 20 mg tablet 90 tablet 1 Sig: Take 1 tablet by mouth daily at bedtime. For cholesterol. Future Appointments Date Time Provider Department Center 01/08/2023 2:30 PM Rafi Fox APRN.CNP [facility] 01/13/2023 9:45 AM LAB [facility] 02/02/2023 1:00 PM Christine Morgan APRN.CNP [facility] Please review and refill if appropriate. Thank you. Bria Chang Pharm-T January 05, 2023 5:44 PM documented in this encounterKettering [facility]10-11-2023 Miscellaneous Notes* Telephone Encounter - Ramo Russo LPN - 12/31/2022 3:45 PM EDT Form faxed. Ramo Russo LPN * Telephone Encounter - Christine Morgan APRN.CNP - 12/31/2022 3:27 PM EDT Form signed. Can fax back, as requested. Christine Morgan APRN.CNP * Telephone Encounter - Ramo Russo LPN - 12/30/2022 10:59 AM EDT Type of form: Home Health Care Orders (discontinuation of OT d/t insurance denial) Form received via fax When form is completed, Fax form to [phone] Form has been forwarded to Nurse Practitioner: JOSEFINA Gabriel LPN documented in this encounterKettering [facility]10-11-2023 Miscellaneous Notes* Telephone Encounter - Ramo Russo LPN - 12/31/2022 10:19 AM EDT Patient phones requesting refills as follows: Requested Prescriptions Pending Prescriptions Disp Refills traZODone (DESYREL) 100 mg tablet 180 tablet 1 Sig: Take 2 tablets by mouth daily at bedtime. Please review and advise. Ramo Russo LPN documented in this encounterKettering Health Troy10-10-2023 History of Present illness Narrative* Ramo Russo LPN - 12/30/2022 4:48 PM EDT Phoned pt, advised to contact surgeons office to update them and to request referral to wound care for a post op wound. Ramo Russo LPN * Christine Morgan APRN.CNP - 12/30/2022 4:39 PM EDT Has she seen the surgeon for the problem with her wound/incision? Did they request a referral to wound care from her surgeon? If she is having problems with her surgical wound, this should be being evaluated/ordered by the surgeon? * Jase Dumont RN - 12/30/2022 1:23 PM EDT [facility] Telephonic Outreach Provider Action/FYI -ckd, dm, htn Christine Morgan APRN.JOSEFINA Pt had panniculectomy at OSH 11/26/22. Currently has home care nurse visiting weekly. States she continues to have an open wound that is not healing. Has clear drainage, no pus, no odor, no fevers. Home care nurse w/ pt at time of call & had given pt number to wound clinic in [place]. Pt unsure if consult order is needed so is asking for one from pcp. Post op appt w/ OSH surgeon is not until next week. Pt concerned that no one has asked for a picture of the wound. Pt would like to know if pcpwants to see her sooner than the 02/02/23 appt and if she wants a picture of wound sent to her via [employer]. PLEASE HAVE YOUR STAFF REACH OUT TO THE PATIENT WITH FURTHER ORDERS/INSTRUCTIONS. Thank you, Jase Dumont RN [place] Clerk Contacted for: Routine Telephonic Outreach Contact made with patient: Yes Patient identified by name and date of . Discussed care with patient Are you experiencing any new or worsening symptoms you need to talk about today? Yes Based on payroll director, the following disposition is advised: No symptoms or symptoms present, not severe. Routed to: No Action Needed VIDA Education Provided this Outreach: No Jase Dumont RN December 30, 2022 1:28 PM documented in this encounterKettering [facility]09-29-2023 Miscellaneous Notes* Telephone Encounter - Christine Morgan APRN.JOSEFINA - 12/19/2022 3:16 PM EDT I went ahead and sent her glimeperide to her mail order pharmacy. Does she have enough to last until this arrives? Can please let her know that I received her labs. Blood count is a little low, but appears stable. I would just recheck this in a couple of weeks to make sure that it is moving the right direction. Her platelets were a little elevated, but could be from recently having surgery. Her sodium was a little low, so we'll recheck this at the same time. Orders are in. Christine Morgan APRN.CD REACTOR OPERATOR documented in this encounterKettering Health Troy09-14-2023 Miscellaneous Notes* Telephone Encounter - Eugenia oCnrad RN - 12/04/2022 2:05 PM EDT Loulou VICKERS calling from [facility] to report plan of care for patient and occupational therapy will visit patient 2 times a week for 3 weeks and 1 time a week for 1 week. No Call back needed. Eugenia Conrad RN documented in this encounterKettering Health Troy09-13-2023 Miscellaneous Notes* Telephone Encounter - Ramo Russo LPN - 12/03/2022 3:00 PM EDT TC to [facility], left message with Frank sims to follow. Ramo Russo LPN * Telephone Encounter - Christine Boo LPN - 12/02/2022 5:00 PM EDT Left message for Kathya to return call * Telephone Encounter - Dao Caraballo MD - 12/02/2022 4:55 PM EDT ok * Telephone Encounter - Jayashree Carreno LPN - 12/02/2022 2:40 PM EDT 12/01/2022 DC from [place], post surgical complications after baractic procedure.. Gave Kathya office fax number, she is going to fax Discharge Summary. HH is wanting to go out to the home tomorrow if the can get a confirm that PCP will follow & sign orders. Jayashree Carreno LPN documented in this encounterKettering Health Troy09-12-2023 History of Present illness Narrative* Afsaneh Fuentes Tech - 12/02/2022 1:10 PM EDT Radiology Service Progress Note PATIENT NAME: Mary Jane De Paz DATE OF SERVICE: December 02, 2022 TIME: 1:18 PM PATIENT IDENTITY VERIFICATION COMPLETED USING TWO (2) IDENTIFIERS: Name and Date of confirmedby patient verbally. FALL SCREENING: Has the patient had 2 falls in the last year or 1 fall with injury or currently using an Ambulatory Assistive Device (Walker, Cane, Wheelchair, Crutches, etc.)? No PATIENT GENDER DATA: Female. status: : No status: NO. PATIENT RELEVANT IMPLANT DATA REVIEWED: Not Applicable RADIOLOGY DEPARTMENT: General X-ray: Exam(s) Completed: Lower Extremity X- Ray(s): Knee, AP / Lat / Merchant Right and Wt. Bearing PERIPHERAL IV DATA: Not applicable SIGNED BY: Yadi Burrows December 02, 2022 1:18 PM [facility] Discharge summary Date of Service 12/01/2022 Discharge Diagnosis 1. Lightheadedness and presyncopal episode 2. Acute blood loss anemia 3. Postsurgical abdominal wall hematoma 4. Acute kidney injury 5. Hypotension 6. Hyponatremia 7. History of hypertension 8. 2.4 cm cystic pancreatic lesion on CT abdomen 9. Hypothyroidism 10. Type 2 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 11. Hypocalcemia Hospital Course 72-year-old female with a past medical history consistent with DM2, GERD, hypertension, hypothyroidism who recently underwent panniculectomy and diastasis recti repair on November [address] [facility] as a transfer from [facility] due to lightheadedness and presyncopal episode. Blood pressure was 87/55 in ED, improved with fluids. Sodium was 127 on admission, which also improved with IV fluid hydration CT of chest did not show any acute pulmonary embolism. CT abdomen showed right lower abdominal wall hematoma. Had hemoglobin of 6.8, received 2 PRBC. She had acute kidney injury with creatinine of 1.92 on admission, which resolved. Patient's lightheadedness and presyncope is mostly from hematoma and hypotension. Echocardiogram showed normal systolic function, normal wall motion, grade 1 diastolic dysfunction. Plastic surgery was consulted, followed patient in hospital, As patient's hemoglobin was stable, recommended she can be discharged with outpatient follow- up in 1 week. 2.4 cm cystic pancreatic lesion on CT abdomen, Presumably low-grade or benign cystic neoplasm. 6-month follow-up dedicated pancreas MRI study recommended to reassess. This needs to be arranged by PCP as outpatient As her blood pressure is elevated, lisinopril was resumed today. Patient seen and examined today, her hemoglobin is stable, stable to be discharged home. Allergies Vicodin (Itching) Consults Consult to Physician (Physician Consult) - Ordered -- 11/29/22 15:33:00 EDT, MD LYNDSEY MALIN, Routine, Post surgical hematoma, anemia Physical Exam Vitals and Measurements T: 36.9 C (Oral) TMIN: 36.7 C (Oral) TMAX: 37.4 C (Oral) HR: 75 RR: 20 BP: 125/51 SpO2: 98% Weight Dosing Weight: 63.6 kg (11/28/22) General Appearance: Patient appears healthy, well-developed, not in any acute distress. Cardiac: Normal rate and rhythm, S1-S2 heard, no murmurs heard. Lungs: Clear on auscultation bilaterally, no wheezes or rales. Abdomen: Abdominal dressings intact, mild tenderness on palpation of lower abdomen wall Extremities: No pedal edema. Neurological: Alert ,oriented, no focal deficits. Psychiatric: Not anxious or depressed. Code Status No qualifying data available. Admission Date 11/28/2022 Discharge Date 12/01/2022 Patient Instructions Follow the postsurgical instructions given by Dr. Egan after surgery. Medications Changed acetaminophen-oxyCODONE (acetaminophen-oxyCODONE 325 mg-5 mg oral tablet)1 tab(s) by mouth three (3) times a day as needed Pain, scale 4-10 for 5 Days. Refills: 0. doxycycline (doxycycline hyclate 100 mg oral capsule)1 cap by mouth three (3) times a day. multivitamin (Multiple Vitamins oral capsule)1 cap by mouth every day. Bariatric formula. Unchanged acetaminophen (Tylenol Extra Strength 500 mg oral tablet)2 tab(s) by mouth every 6 hours as needed as needed for pain. albuterol (albuterol MDI (90 mcg/inh) CFC free inhalation aerosol)1 puff(s) by inhalation every 4 hours as needed as needed for wheezing. atorvastatin (atorvastatin 20 mg oral tablet)1 tab(s) by mouth daily at bedtime. buPROPion (buPROPion 300 mg/24 hours (XL) oral tablet, extended release)1 tab(s) by mouth every 24 hours. calcium citrate (calcium (as calcium citrate) 250 mg oral tablet)1 tab(s) by mouth once a day (in the morning). dulaglutide (Trulicity Pen 0.75 mg/0.5 mL subcutaneous solution)0.75 Milligram Subcutaneous every Thursday. esomeprazole (esomeprazole 40 mg oral delayed release capsule)1 cap by mouth two (2) times a day. famotidine (famotidine 20 mg oral tablet)1 tab(s) by mouth two (2) times a day as needed Heartburn. FLUoxetine (FLUoxetine 20 mg oral capsule)3 cap by mouth once a day (in the morning). TAKE THREE (3) CAPSULES BY MOUTH EVERY DAY. glimepiride (glimepiride 2 mg oral tablet)0.5 tab(s) by mouth once a day (in the morning). TAKE TWOTABLETS BY MOUTH DAILY with breakfast. herbal/nutritional product (turmeric 500 mg oral capsule)4 cap by mouth once a day (in the morning). levothyroxine (levothyroxine 100 mcg (0.1 mg) oral tablet)1 tab(s) by mouth once a day. lisinopril (lisinopril 10 mg oral tablet)1 tab(s) by mouth daily at bedtime. Misc Medication (Apple cider)450 Nanograms by mouth once a day (in the morning). mupirocin topical (mupirocin 2% topical ointment)1 application Topical two (2) times a day. Bilateral intranasal application twice daily for 5 days prior to surgery &/or as many days leading up to surgery as possible due to surgical urgency/scheduling. Send to patient's preferred pharmacy.. Refills: 0. ondansetron (ondansetron 8 mg oral tablet)1 tab(s) by mouth every 8 hours as needed Nausea/Vomiting. traZODone (traZODone 100 mg oral tablet)2 tab by mouth daily at bedtime. TAKE TWO TABLETS BY MOUTH EVERY DAY AT BEDTIME. Discontinued oxyCODONE (oxyCODONE 5 mg oral tablet ( IMMEDIATE release ))1 tab(s) by mouth every 6 hours as needed as needed for pain. take 1 tablet by mouth every 8 hours if needed for pain. Follow Up Follow Up with RAFI EGAN MD, [facility] When Why: Follow-up in 1 week Where: [address] [facility] [place] [address]- [phone] Follow Up with CHRISTINE MORGAN APRN-[facility] When Within 1-2 days Where: [address] [place] [address]- [phone] Follow Up with [facility] has been arranged for you. Please call them at [phone] if you do not hear from them in 1-2 days. When Within 1-2 days Where: Follow Up Appointments No qualifying data available. Follow Up Labs/Studies Discharge Labs No Follow-up Labs Discharge Studies No Follow-up Studies Discharge Diet Discharge Diet - Ordered -- Type of Diet: Regular, Calories Permitted: 1800 kcal, 12/01/22 15:44:00 EDT Discharge Activity Discharge Activity - Ordered -- As instructed by therapy, 12/01/22 15:44:00 EDT Condition on Discharge Stable Discharge Disposition Home Time Spent More than 30 minutes spent in discharge planning Digitally Signed by JUSTIN LONG MD on 12/01/2022 07:[address] [id number] Discharge instructions Patient Education 12/01/2022 16:27:39 Pain Relief Before and After Surgery Pain Relief Before and After Surgery Pain relief is an important part of your overall care before, during, and after surgery. You and your health care provider will work together to make a plan to manage pain that you have before surgery (preoperative) and after surgery (postoperative). Addressing pain before surgery lessens the pain that you will have after surgery. Make sure that you fully understand and agree with your pain relief plan. If you have questions or concerns, it is important to discuss them with your health care provider. If you have pain that is not controlled by medicine, tell your health care provider. Severe pain after surgery may: Prevent sleep. Decrease your ability to breathe deeply and to cough. This can result in pneumonia or upper airway infections. Cause your heart to beat more quickly. Cause your blood pressure to be higher. Increase your risk for stomach and digestive problems. Slow down wound healing. Lead to depression, anxiety, and feelings of helplessness. Your health care provider may use more than one method at a time to help relieve your pain. Using this approach may allow you to eat, move around, and possibly leave the hospital sooner. What are options for managing pain before and after surgery? Oral pain medicines Pain medicines taken by mouth (orally) include: Non-narcotic medicines: ?Acetaminophen. ?NSAIDs, such as ibuprofen and naproxen. Muscle relaxants. These may relieve pain caused by muscle spasms. Anticonvulsants. These medicines are usually used to treat seizures. They may help to lessen nerve pain. Opioids. These medicines relieve pain by binding to pain receptors in the brain and spinal cord (narcotic pain medicines). Opioids may help relieve short-term (acute) postoperative pain that is moderate to moderately severe. ?Opioids are often combined with non-narcotic medicines to improve pain relief, lower the risk of side effects, and lower the chance of addiction. ?To help prevent addiction, opioids are given for short periods of time in careful doses. If you follow instructions from your health care provider and you do not have a history of substance abuse, your risk of becoming addicted to opioids is low. Some of these medicines may be available in injectable form. They may be given through an IV if youare unable to eat or drink. As-needed pain control You can receive pain medicine when you need it, through an IV or as a pill or liquid. When you tellyour health care provider that you are having pain, he or she will give you the proper pain medicine. Medicine that numbs an area You may be given pain medicine that numbs an area (local anesthetic): As an injection near your painful area (local infiltration). As an injection near the nerve that provides feeling to a specific part of your body (peripheral nerve block). As an injection in your spine (spinal block). Through a local anesthetic reservoir pump. For this method, one or more catheters are inserted intoyour incision at the end of your procedure. These catheters are connected to a device that is filled with a non-narcotic pain medicine. Medicine gradually empties into your incision area over the next several days. Continuous epidural pain control With this method, you receive pain medicine through a small, thin tube (catheter) that is inserted into your back, near your spinal cord. Medicine flows through the catheter to lessen pain in areas of your body that are below the catheter. The catheter is usually put into the back shortly before surgery. It may be left in until you can eat, take medicine by mouth, pass urine, and have a bowel movement. This method may be recommended if you are having surgery on your abdomen, hip area, or legs. This method of pain relief may help you heal faster because you may be able to do these things sooner: Regain normal bowel and bladder function. Return to eating. Get up and walk. IV patient-controlled analgesia (SUPPRESSION CREW LEADER) pump With this method, you receive pain medicine through an IV that is connected to a SUPPRESSION CREW LEADER pump. The SUPPRESSION CREW LEADER pump gives you a specific amount of medicine when you push a button. This lets you control how much medicine you receive. You are the only person who should push this button. The pump is set up so that you cannot accidentally give yourself too much medicine. You will be able to start using your SUPPRESSION CREW LEADER pump in the recovery room after your procedure. Tell your health care provider: If you are having too much pain. If you cannot push the button. If you are feeling too sleepy or nauseous. Other pain control methods Other methods of pain relief after surgery include: Heat and cold therapy. Massage. Topical analgesics. These are patches, creams, and gels that can be applied on the skin. Steroid medicines. These medicines may be given to lessen swelling. Physical therapy. A physical therapist will work with you to meet goals, such as feeling and functioning better. Physical therapy usually includes specific exercises that are tailored to your needs. Transcutaneous electrical nerve stimulation (TENS). This method sends electrical signals through the skin to interrupt pain signals. Cognitive behavioral therapy (CBT). This therapy helps you learn coping skills for dealing with pain. What are some questions to ask my health care provider? What pain relief options would be best for me? What are the risks of each option? What are the benefits of each option? How long will I need pain relief after surgery? Summary A plan to manage pain that you may have before surgery (preoperative) and after surgery (postoperative) is an important part of your overall care. Pain management options include medicines and non-medical therapies, such as physical therapy, massage, and heat or cold therapy. Pain management medicines include opioids and non-narcotic medicines such as NSAIDs, steroids, or local anesthetics. Pain medicines can have side effects. Side effects of opioids include constipation, nausea, excessive sleepiness, and risk of addiction. Your health care provider will work with you to prevent or manage these side effects and risks. This information is not intended to replace advice given to you by your health care provider. Make sure you discuss any questions you have with your health care provider. Document Released: 05/30/2003 Document Revised: 03/12/2018 Document Reviewed: 06/19/2017 [employer] Patient Education 2020 [employer]. 12/01/2022 16:27:22 Syncope, Kygb-eb-Oonp Syncope Syncope is when you pass out (faint) for a short time. It is caused by a sudden decrease in blood flow to the brain. Signs that you may be about to pass out include: Feeling dizzy or light-headed. Feeling sick to your stomach (nauseous). Seeing all white or all black. Having cold, clammy skin. If you pass out, get help right away. Call your local emergency services (911 in the [place] Do not drive yourself to the hospital. Follow these instructions at home: Watch for any changes in your symptoms. Take these actions to stay safe and help with your symptoms: Lifestyle Do not drive, use machinery, or play sports until your doctor says it is okay. Do not drink alcohol. Do not use any products that contain nicotine or tobacco, such as cigarettes and e-cigarettes. If you need help quitting, ask your doctor. Drink enough fluid to keep your pee (urine) pale yellow. General instructions Take weio-mmz-grflkyu and prescription medicines only as told by your doctor. If you are taking blood pressure or heart medicine, sit up and stand up slowly. Spend a few minutesgetting ready to sit and then stand. This can help you feel less dizzy. Have someone stay with you until you feel stable. If you start to feel like you might pass out, lie down right away and raise (elevate) your feet above the level of your heart. Breathe deeply and steadily. Wait until all of the symptoms are gone. Keep all follow-up visits as told by your doctor. This is important. Get help right away if: You have a very bad headache. You pass out once or more than once. You have pain in your chest, belly, or back. You have a very fast or uneven heartbeat (palpitations). It hurts to breathe. You are bleeding from your mouth or your bottom (rectum). You have black or tarry poop (stool). You have jerky movements that you cannot control (seizure). You are confused. You have trouble walking. You are very weak. You have vision problems. These symptoms may be an emergency. Do not wait to see if the symptoms will go away. Get medical help right away. Call your local emergency services (911 in the [place] Do not drive yourself to the hospital. Summary Syncope is when you pass out (faint) for a short time. It is caused by a sudden decrease in blood flow to the brain. Signs that you may be about to faint include feeling dizzy, light-headed, or sick to your stomach, seeing all white or all black, or having cold, clammy skin. If you start to feel like you might pass out, lie down right away and raise (elevate) your feet above the level of your heart. Breathe deeply and steadily. Wait until all of the symptoms are gone. This information is not intended to replace advice given to you by your health care provider. Make sure you discuss any questions you have with your health care provider. Document Released: 08/25/2008 Document Revised: 04/21/2018 Document Reviewed: 04/21/2018 [employer] Patient Education 2020 [employer] Follow Up Care 11/28/2022 03:12:45 With:RAFI EGAN MD, [facility] Address: [address] [facility] [place] [address]- [phone] When: Unknown Comments:Follow-up in 1 week With:CHRISTINE MORGAN APRN-[facility] Address: [address] [place] [address]- [phone] When:1-2 days With:[facility] has been arranged for you. Please call them at [phone] if you do nothear from them in 1-2 days. Address: When:1-[address] [facility] 09-11-2023 Plastic surgery Progress note Date of Service 12/01/2022 Chief Complaint Patient had a presyncopal episode status post surgery noted to be severely dehydrated Subjective Patient seems to be improving patient states that she is doing well not quite as well as she did yesterday she felt really well yesterday but almost as of today. She has not been evaluated by physical therapy at least at the time that I am seeing her. But otherwise seems to be improving. Objective Vitals and Measurements T: 36.9 C (Oral) TMIN: 36.7 C (Oral) TMAX: 37.4 C (Oral) HR: 75 RR: 20 BP: 125/51 SpO2: 98% Intake and Output 7AM Yesterday to 7AM Today Intake and Output (Last 24 hours) Intake Oral Intake 400.00 Output Surgical Drain, Tube Output: 100.00 Urinary Catheter Output: 1900.00 Total Summary Total Intake 400.00 Total Output 2000.00 Fluid Balance -1600.00 Physical Exam Abdomen soft probably tender. JPs are serosanguineous fluid. Incisions are with Steri-Strips no evidence of any erythema cellulitis. No evidence of any significant ecchymosis on the abdomen. Weight Dosing Weight: 63.6 kg (11/28/22) Medications Medications (18) Active Scheduled: (14) albuterol 0.083% Soln UD (2.5mg/3 mL) 2.5 mg 3 mL, Inhalation, TIDRT atorvastatin 20 mg tablet 20 mg 1 tab(s), Oral, qHS bupropion 300 mg/24 hours ER tablet 300 mg 1 tab(s), Oral, q24h calcium-vitamin D 500 mg-200 units tablet 1 tab(s), Oral, qDayM docusate sodium 100 mg Capsule 100 mg 1 cap(s), Oral, BID doxycycline hyclate 100 mg Capsule 100 mg 1 cap(s), Oral, BID fluoxetine 20 mg Capsule 60 mg 3 cap(s), Oral, qAM glimepiride 1 mg Tablet 1 mg 1 tab(s), Oral, qAM insulin lispro 100 units/mL Soln (3 mL) Give 0-5 units/dose, Subcutaneous, TIDAC levothyroxine 100 mcg tablet 100 mcg 1 tab(s), Oral, qDay lisinopril 10 mg tablet 10 mg 1 tab(s), Oral, qDay multivitamin (Nephrocaps) Vitamin B Complex with C and Folic Acid Capsule 1 cap(s), Oral, Daily pantoprazole 40 mg EC tablet 40 mg 1 tab(s), Oral, qDayAC traZODONE 100 mg Tablet 200 mg 2 tab(s), Oral, qHS Continuous: (0) PRN: (4) acetaminophen-OXYcodone 325 mg-5 mg Tablet 1 tab(s), Oral, q6h albuterol - ipratropium 2.5 mg-0.5 mg/3 mL Inhal Sole UD 3 mL, Inhalation, q4hRT famotidine 20 mg tablet 20 mg 1 tab(s), Oral, BID polyethylene glycol 3350 - UD packet 17 gram(s) 15 mL, Oral, qDay Lab Results 12/01 04:39 WBC: 7.5 Hgb: 8.2 L Hct: 24.0 L Platelet: 310 Neutrophil %: 61.4 Glucose Level: 127 H Sodium Level: 140 Potassium Level: 4.0 BUN: 10.0 Creatinine Lvl (s): 0.86 11/30 06:26 WBC: 8.8 Hgb: 8.6 L Hct: 25.0 L Platelet: 271 Neutrophil %: 67.2 Glucose Level: 86 Sodium Level: 140 Potassium Level: 4.4 BUN: 11.0 Creatinine Lvl (s): 0.91 EKG No qualifying data available. Assessment/Plan Postoperative pain Patient may be discharged from my standpoint as she seems fairly resuscitated and her H&H is stable. The symptoms have resolved. Patient is worried about going home secondary to functional statusbeing able to ambulate without difficulty transitioning from the bed. I did discuss with her that it be prudent for physical therapy to assess and potentially rehab may be indicated for several days versus if they feel she just needs some assistance in terms of a walker etc. Once again she may follow-up with me in about 7 to 10 days after discharge. She will continue to follow the postoperative discharge instructions given to her the day of surgery. And of course she is to call if is any questio ns or concerns day or night the office number. Digitally Signed by RAFI EGAN MD on 12/01/2022 04:[address] [id number] Note Discharge Instructions Thank you for allowing [facility] to assist you with your healthcare needs. The following is importantdischarge information regarding your hospital visit. Your Care Team CHRISTINE MORGAN Your Diagnosis Postoperative pain What to do next Instructions From Your Doctor Follow the postsurgical instructions given by Dr. Egan after surgery. Follow Up Appointments Follow Up with RAFI EGAN MD, [facility] When Why: Follow-up in 1 week Where: [address] [facility] [address]- [phone] Follow Up with CHRISTINE MORGAN When Within 1-2 days Where: [address] [place] [address]- [phone] Follow Up with [facility] has been arranged for you. Please call them at [phone] if you do not hear from them in 1-2 days. When Within 1-2 days Where: The Following Activity and Diet Have Been Ordered for You Discharge Activity - Ordered -- As instructed by therapy, 12/01/22 15:44:00 EDT Discharge Diet - Ordered -- Type of Diet: Regular, Calories Permitted: 1800 kcal, 12/01/22 15:44:00 EDT The Following Equipment Has Been Ordered for You No qualifying data available. The Following Treatments Have Been Ordered for You Discharge Labs No qualifying data available. Discharge Radiology No qualifying data available. Other Therapies No qualifying data available. Post Acute Orders No qualifying data available. Someone Will Contact You Regarding These Home Health Referrals No home referrals have been ordered for you. No one will call you. Allergies Vicodin (Itching) Medications Please ask your primary doctor or pharmacist before taking any other medication not listed, including over the counter drugs, herbal medications, vitamins and or supplements as they may interact withyour home medications. What How Much When Why Instructions Last Dose Changed acetaminophen-oxyCODONE (acetaminophen-oxyCODONE 325 mg-5 mg oral tablet) 1 tab(s) by mouth Three (3) times a day as needed for Pain, scale 4-10 Postoperative pain Duration: 5 Days Pickup at [id number] Changed doxycycline (doxycycline hyclate 100 mg oral capsule) 1 cap by mouth Three (3) times a day Changed multivitamin (Multiple Vitamins oral capsule) 1 cap by mouth Every day Bariatric formula Unchanged acetaminophen (Tylenol Extra Strength 500 mg oral tablet) 2 tab(s) by mouth Every 6 hours as needed for as needed for pain Unchanged albuterol (albuterol MDI (90 mcg/ inh) CFC free inhalation aerosol) 1 puff(s) by inhalation Every 4 hours as needed for as needed for wheezing Unchanged atorvastatin (atorvastatin 20 mg oral tablet) 1 tab(s) by mouth Daily at bedtime Unchanged buPROPion (buPROPion 300 mg/ 24 hours (XL) oral tablet, extended release) 1 tab(s) by mouth Every 24 hours Unchanged calcium citrate (calcium (as calcium citrate) 250 mg oral tablet) 1 tab(s) by mouth Once a day (in the morning) Unchanged dulaglutide (Trulicity Pen 0.75 mg/ 0.5 mL subcutaneous solution) 0.75 Milligram Subcutaneous Every Thursday Unchanged esomeprazole (esomeprazole 40 mg oral delayed release capsule) 1 cap by mouth Two (2) times a day Unchanged famotidine (famotidine 20 mg oral tablet) 1 tab(s) by mouth Two (2) times a day as needed for Heartburn Unchanged FLUoxetine (FLUoxetine 20 mg oral capsule) 3 cap by mouth Once a day (in the morning) TAKE THREE (3) CAPSULES BY MOUTH EVERY DAY Unchanged glimepiride (glimepiride 2 mg oral tablet) 0.5 tab(s) by mouth Once a day (in the morning) TAKE TWO TABLETS BY MOUTH DAILY with breakfast Unchanged herbal/ nutritional product (turmeric 500 mg oral capsule) 4 cap by mouth Once a day (in the morning) Unchanged levothyroxine (levothyroxine 100 mcg (0.1 mg) oral tablet) 1 tab(s) by mouth Once a day Unchanged lisinopril (lisinopril 10 mg oral tablet) 1 tab(s) by mouth Daily at bedtime Unchanged Misc Medication (Apple cider) 450 Nanograms by mouth Once a day (in the morning) Unchanged mupirocin topical (mupirocin 2% topical ointment) 1 application Topical Two (2) times a day Bilateral intranasal application twice daily for 5 days prior to surgery &/ or as many days leading up to surgery as possible due to surgical urgency/ scheduling. Send to patient's preferred pharmacy. Unchanged ondansetron (ondansetron 8 mg oral tablet) 1 tab(s) by mouth Every 8 hours as needed for Nausea/Vomiting Unchanged traZODone (traZODone 100 mg oral tablet) 2 tab by mouth Daily at bedtime TAKE TWO TABLETS BY MOUTH EVERY DAY AT BEDTIME Pharmacy Information [id number]: [address], [place] [id number] [phone] What How Much When Comments Stop Taking oxyCODONE (oxyCODONE 5 mg oral tablet ( IMMEDIATE release )) 1 tab(s) by mouth Every 6 hours as needed for as needed for pain take 1 tablet by mouth every 8 hours if needed for pain Please take this list to your next doctor s visit. Bring all medications you take, including over the counter medications, herbals and other supplements with you to your doctor s visit. Patients and families are reminded to discard old lists and to update any records with all medication providers or retail pharmacies. Education Materials Pain Relief Before and After Surgery Pain relief is an important part of your overall care before, during, and after surgery. You and your health care provider will work together to make a plan to manage pain that you have before surgery (preoperative) and after surgery (postoperative). Addressing pain before surgery lessens the pain that you will have after surgery. Make sure that you fully understand and agree with your pain relief plan. If you have questions or concerns, it is important to discuss them with your health care provider. If you have pain that is not controlled by medicine, tell your health care provider. Severe pain after surgery may: Prevent sleep. Decrease your ability to breathe deeply and to cough. This can result in pneumonia or upper airway infections. Cause your heart to beat more quickly. Cause your blood pressure to be higher. Increase your risk for stomach and digestive problems. Slow down wound healing. Lead to depression, anxiety, and feelings of helplessness. Your health care provider may use more than one method at a time to help relieve your pain. Using this approach may allow you to eat, move around, and possibly leave the hospital sooner. What are options for managing pain before and after surgery? Oral pain medicines Pain medicines taken by mouth (orally) include: Non-narcotic medicines: ? Acetaminophen. ? NSAIDs, such as ibuprofen and naproxen. Muscle relaxants. These may relieve pain caused by muscle spasms. Anticonvulsants. These medicines are usually used to treat seizures. They may help to lessen nerve pain. Opioids. These medicines relieve pain by binding to pain receptors in the brain and spinal cord (narcotic pain medicines). Opioids may help relieve short-term (acute) postoperative pain that is moderate to moderately severe. ? Opioids are often combined with non-narcotic medicines to improve pain relief, lower the risk of side effects, and lower the chance of addiction. ? To help prevent addiction, opioids are given for short periods of time in careful doses. If you follow instructions from your health care provider and you do not have a history of substance abuse, your risk of becoming addicted to opioids is low. Some of these medicines may be available in injectable form. They may be given through an IV if youare unable to eat or drink. As-needed pain control You can receive pain medicine when you need it, through an IV or as a pill or liquid. When you tellyour health care provider that you are having pain, he or she will give you the proper pain medicine. Medicine that numbs an area You may be given pain medicine that numbs an area (local anesthetic): As an injection near your painful area (local infiltration). As an injection near the nerve that provides feeling to a specific part of your body (peripheral nerve block). As an injection in your spine (spinal block). Through a local anesthetic reservoir pump. For this method, one or more catheters are inserted intoyour incision at the end of your procedure. These catheters are connected to a device that is filled with a non-narcotic pain medicine. Medicine gradually empties into your incision area over the next several days. Continuous epidural pain control With this method, you receive pain medicine through a small, thin tube (catheter) that is inserted into your back, near your spinal cord. Medicine flows through the catheter to lessen pain in areas of your body that are below the catheter. The catheter is usually put into the back shortly before surgery. It may be left in until you can eat, take medicine by mouth, pass urine, and have a bowel movement. This method may be recommended if you are having surgery on your abdomen, hip area, or legs. This method of pain relief may help you heal faster because you may be able to do these things sooner: Regain normal bowel and bladder function. Return to eating. Get up and walk. IV patient-controlled analgesia (SUPPRESSION CREW LEADER) pump With this method, you receive pain medicine through an IV that is connected to a SUPPRESSION CREW LEADER pump. The SUPPRESSION CREW LEADER pump gives you a specific amount of medicine when you push a button. This lets you control how much medicine you receive. You are the only person who should push this button. The pump is set up so that you cannot accidentally give yourself too much medicine. You will be able to start using your SUPPRESSION CREW LEADER pump in the recovery room after your procedure. Tell your health care provider: If you are having too much pain. If you cannot push the button. If you are feeling too sleepy or nauseous. Other pain control methods Other methods of pain relief after surgery include: Heat and cold therapy. Massage. Topical analgesics. These are patches, creams, and gels that can be applied on the skin. Steroid medicines. These medicines may be given to lessen swelling. Physical therapy. A physical therapist will work with you to meet goals, such as feeling and functioning better. Physical therapy usually includes specific exercises that are tailored to your needs. Transcutaneous electrical nerve stimulation (TENS). This method sends electrical signals through the skin to interrupt pain signals. Cognitive behavioral therapy (CBT). This therapy helps you learn coping skills for dealing with pain. What are some questions to ask my health care provider? What pain relief options would be best for me? What are the risks of each option? What are the benefits of each option? How long will I need pain relief after surgery? Summary A plan to manage pain that you may have before surgery (preoperative) and after surgery (postoperative) is an important part of your overall care. Pain management options include medicines and non-medical therapies, such as physical therapy, massage, and heat or cold therapy. Pain management medicines include opioids and non-narcotic medicines such as NSAIDs, steroids, or local anesthetics. Pain medicines can have side effects. Side effects of opioids include constipation, nausea, excessive sleepiness, and risk of addiction. Your health care provider will work with you to prevent or manage these side effects and risks. This information is not intended to replace advice given to you by your health care provider. Make sure you discuss any questions you have with your health care provider. Document Released: 05/30/2003 Document Revised: 03/12/2018 Document Reviewed: 06/19/2017 [employer] Patient Education 2020 [employer]. Syncope Syncope is when you pass out (faint) for a short time. It is caused by a sudden decrease in blood flow to the brain. Signs that you may be about to pass out include: Feeling dizzy or light-headed. Feeling sick to your stomach (nauseous). Seeing all white or all black. Having cold, clammy skin. If you pass out, get help right away. Call your local emergency services (911 in the [place] Do not drive yourself to the hospital. Follow these instructions at home: Watch for any changes in your symptoms. Take these actions to stay safe and help with your symptoms: Lifestyle Do not drive, use machinery, or play sports until your doctor says it is okay. Do not drink alcohol. Do not use any products that contain nicotine or tobacco, such as cigarettes and e-cigarettes. If you need help quitting, ask your doctor. Drink enough fluid to keep your pee (urine) pale yellow. General instructions Take urmk-mid-ywqpgrm and prescription medicines only as told by your doctor. If you are taking blood pressure or heart medicine, sit up and stand up slowly. Spend a few minutesgetting ready to sit and then stand. This can help you feel less dizzy. Have someone stay with you until you feel stable. If you start to feel like you might pass out, lie down right away and raise (elevate) your feet above the level of your heart. Breathe deeply and steadily. Wait until all of the symptoms are gone. Keep all follow-up visits as told by your doctor. This is important. Get help right away if: You have a very bad headache. You pass out once or more than once. You have pain in your chest, belly, or back. You have a very fast or uneven heartbeat (palpitations). It hurts to breathe. You are bleeding from your mouth or your bottom (rectum). You have black or tarry poop (stool). You have jerky movements that you cannot control (seizure). You are confused. You have trouble walking. You are very weak. You have vision problems. These symptoms may be an emergency. Do not wait to see if the symptoms will go away. Get medical help right away. Call your local emergency services (911 in the [place] Do not drive yourself to the hospital. Summary Syncope is when you pass out (faint) for a short time. It is caused by a sudden decrease in blood flow to the brain. Signs that you may be about to faint include feeling dizzy, light-headed, or sick to your stomach, seeing all white or all black, or having cold, clammy skin. If you start to feel like you might pass out, lie down right away and raise (elevate) your feet above the level of your heart. Breathe deeply and steadily. Wait until all of the symptoms are gone. This information is not intended to replace advice given to you by your health care provider. Make sure you discuss any questions you have with your health care provider. Document Released: 08/25/2008 Document Revised: 04/21/2018 Document Reviewed: 04/21/2018 [employer] Patient Education 2020 [employer]. Additional Information VACCINATE! IT SAVES LIVES! Members of the community who have not yet received the COVID-19 vaccine and would like to receive it can visit one of [facility] vaccine clinics. There are many vaccine clinic locations within the [facility]. For locations and available times, please visit https://gettheshot.coronavirus.[place].gov/. It is important to note that some COVID mobile vaccine clinics are held outdoors and may be canceled in rainy or stormy conditions. To learn more about pediatric vaccinations (ages 5-11), we invite you to visit the [facility] webpage. [email or web address]/[email or web address] learn more about the COVID-19 vaccine, we invite you to visit the CDC website for a list of frequently asked questions.https://www.cdc.gov/coronavirus/2019-ncov/vaccines/faq.html [employer] Patient Portal Access Instructions: Stay connected with your healthcare team and access your personal medical information anytime with the [employer] Patient Portal. Please follow the directions below to create your [employer] account: 1.Access the email account you provided upon registration to the hospital/physician office.2.Look for an invitation email from [facility].3.Open the email and access the invitation link: [facility]itation to [facility].4.Fill in the required carlton to create your account. To access your account, visit [email or web address]. Click the blue button labeled Access Patient Portal and then log in with the username and password that you created in the steps above. You will be able to view your test results, lab results, a summary of your visits, upcoming appointments and more. There is also a convenient messaging option where you can send secure messages to your p rovider. In addition, you will have the ability to download any documents or summaries to your computer and/or send the information securely to a physician. Remember that your healthcare information is confidential, so carefully consider who you will allowto register on the [facility] [employer] Patient Portal for access to your information. You can also access the [facility] Patient Portal on the [facility] manjinder. Simply click on Patient Portal and then log into your account. If you would like to receive a full copy of your medical records, please contact the [facility] Medical Records Department by calling [phone], Thursday through Thursday between 8 a.m. and 4:30 p.m. HOW TO SAFELY DISPOSE OF PRESCRIPTION MEDICATIONS Please use one of the following methods to safely dispose of your unused medications. 1.Use a drug disposal kit: the drug disposal pouch allows you to safely discard your old and unuseddrugs. Ask your nurse to give you one when you are discharged.2.Visit a local take-back location: Many local pharmacies and police departments have programs that collect old and unwanted prescriptiondrugs. Call your local pharmacy or go to http://bit.ly/4B3Br6k to find one close to you.3.Make use of household items: Use cat litter or old coffee grounds to dispose medications if other options arenot available. Mix your drugs with these household products, seal them in an airtight container andthrow it into the garbage. Call [facility]: [phone] to be sure your drugs can be disposed of in this way. Some medicines may require a different approach.4.Never flush your medications down the toilet. IF YOU HAVE BEEN PRESCRIBED AN OPIOID FOR PAIN If you have been prescribed an opioid (such as hydrocodone, oxycodone or morphine), it is critical to understand the possible side effects and risks of opioid pain medications. Even when taken as directed, opioids can have several side effects including: Tolerance, meaning you might need to take more of a medication for the same pain relief. Nausea, vomiting and/or constipation. Sleepiness, dizziness, dry mouth, confusion, depression or itching. Physical dependence, meaning you have withdrawal symptoms when a medication is stopped, can develop within a few days. KNOW YOUR RESPONSIBILITIES It is important to know exactly how much and how often to take the opioid pain medications you are prescribed. Never take opioids in higher amounts or more often than prescribed. Do not combine opioids with alcohol or other drugs that cause drowsiness, such as benzodiazepines, also known as benzos, including diazepam and alprazolam, muscle relaxants or sleep aids. Never sell or share prescription opioids. This is illegal. Store opioids in a secure place and out of reach of others (including children, family, friends and visitors). The last page of this document has been signed and retained as a CHART COPY. Signatures Patient Education Materials Pain Relief Before and After Surgery Syncope, Cbxe-mv-Bmmy Medication Leaflets My discharge plan and instructions have been reviewed and explained to me and I,MARY JANE DE PAZ understand my current condition and have read and understand these discharge instructions. I have received a written copy of the plan/instructions. If I have questions, I am aware that I should contact my doctor. 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 Note Date of Service 11/30/2022 Chief Complaint Patient seen and examined today for presyncopal episode, hypotension, acute blood loss anemia, postsurgical hematoma, acute kidney injury, hyponatremia Subjective Patient seen today, her at bedside. She feels significantly improved. Denied any lightheadedness. Objective Vitals and Measurements T: 36.9 C (Oral) TMIN: 36.6 C (Oral) TMAX: 37.3 C (Oral) HR: 82 RR: 18 BP: 141/60 SpO2: 98% Intake and Output 7AM Yesterday to 7AM Today Intake and Output (Last 24 hours) Intake Administration Information 1200.00 Oral Intake 600.00 Output Surgical Drain, Tube Output: 95.50 Urinary Catheter Output: 950.00 Stool Count 0.00 Emesis Count 0.00 Total Summary Total Intake 1800.00 Total Output 1045.50 Fluid Balance 754.50 Physical Exam General Appearance: Patient appears healthy, well-developed, not in any acute distress. Cardiac: Normal rate and rhythm, S1-S2 heard, no murmurs heard. Lungs: Clear on auscultation bilaterally, no wheezes or rales. Abdomen: Abdominal dressings intact, mild tenderness on palpation of lower abdomen wall Extremities: No pedal edema. Neurological: Alert ,oriented, no focal deficits. Psychiatric: Not anxious or depressed. Weight Dosing Weight: 63.6 kg (11/28/22) Medications Medications (18) Active Scheduled: (13) albuterol 0.083% Soln UD (2.5mg/3 mL) 2.5 mg 3 mL, Inhalation, TIDRT atorvastatin 20 mg tablet 20 mg 1 tab(s), Oral, qHS bupropion 300 mg/24 hours ER tablet 300 mg 1 tab(s), Oral, q24h calcium-vitamin D 500 mg-200 units tablet 1 tab(s), Oral, qDayM docusate sodium 100 mg Capsule 100 mg 1 cap(s), Oral, BID doxycycline hyclate 100 mg Capsule 100 mg 1 cap(s), Oral, BID fluoxetine 20 mg Capsule 60 mg 3 cap(s), Oral, qAM glimepiride 1 mg Tablet 1 mg 1 tab(s), Oral, qAM insulin lispro 100 units/mL Soln (3 mL) Give 0-5 units/dose, Subcutaneous, TIDAC levothyroxine 100 mcg tablet 100 mcg 1 tab(s), Oral, qDay multivitamin (Nephrocaps) Vitamin B Complex with C and Folic Acid Capsule 1 cap(s), Oral, Daily pantoprazole 40 mg EC tablet 40 mg 1 tab(s), Oral, qDayAC traZODONE 100 mg Tablet 200 mg 2 tab(s), Oral, qHS Continuous: (1) NS (0.9% nacl) 1,000 mL 1,000 mL, Intravenous, 50 mL/hr PRN: (4) acetaminophen-OXYcodone 325 mg-5 mg Tablet 1 tab(s), Oral, q6h albuterol - ipratropium 2.5 mg-0.5 mg/3 mL Inhal Sole UD 3 mL, Inhalation, q4hRT famotidine 20 mg tablet 20 mg 1 tab(s), Oral, BID polyethylene glycol 3350 - UD packet 17 gram(s) 15 mL, Oral, qDay Lab Results 11/30 06:26 WBC: 8.8 Hgb: 8.6 L Hct: 25.0 L Platelet: 271 Neutrophil %: 67.2 Glucose Level: 86 Sodium Level: 140 Potassium Level: 4.4 BUN: 11.0 Creatinine Lvl (s): 0.91 EKG No qualifying data available. Assessment/Plan Postoperative pain Orders: Basic Metabolic Panel Calcium Level Ionized Complete Blood Count Time Spent 1. Lightheadedness and presyncopal episode: Mostly due to low blood pressure and hemorrhage -Blood pressure was 87/55 in ED, improved with fluids. -Echocardiogram showed normal systolic function, normal wall motion, grade 1 diastolic dysfunction.No valvular abnormality. -CTA negative for pulmonary embolism. 2. Acute blood loss anemia: Due to poor surgical hematoma -CT abdomen showed right lower flank deep subcutaneous hemorrhage/hematoma about 14.8 cm in length and roughly 2 cm in thickness., With some extension to more central and anterior pelvic wall -Patient s/p 2 PRBC 3. Acute kidney injury, creatinine 1.92 on admission, resolved, mostly prerenal from hypotension 4. Hyponatremia, sodium was 127 on admission, resolved, could be from dehydration. 5. Hypertension: Hold lisinopril as blood pressure is borderline 6. Hypotension on admission resolved 7. Postsurgical hematoma: Patient had panniculectomy and diastases recti repair on November 26 -plastic surgery was consulted, patient can be discharged tomorrow if hemoglobin stable -Need to find out from plastic surgery when to follow-up as outpatient and about dressing recommendation. 8. 2.4 cm cystic pancreatic lesion on CT abdomen, Presumably low-grade or benign cystic neoplasm. 6-month follow-up dedicated pancreas MRI study recommended to reassess. patient needs MRI of pancreas as outpatient for follow-up. 9. Hypothyroidism on levothyroxine 10. . Type 2 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, continue insulin sliding scale , glimepiride 11. Hypocalcemia, calcium replaced DVT prophylaxis on SCDs Digitally Signed by JUSTIN LONG MD on 11/30/2022 06:[address] [id number] Plastic surgery Consult note Date of Service 11/30/2022 Reason for Consultation Presyncope post [id number]-[id number] panniculectomy Referring Physician Primary team History of Present Illness Patient is a 72-year-old female who is roughly 4 days from pqtpq-hm-ybr panniculectomy. Postoperatively patient stated that she felt lightheaded upon returning home. She did almost fall in the [place] to presyncopal episode. She did not lose any consciousness. She was then taken and [place] where she continued to feel dizzy. She did not eat or drink anything over the subsequent hours. She was then taken to [place] ER for evaluation. She is noted to be severely dehydrated as her creatinine numbers bumped up just slightly. She is a transfer [place] to [facility] after discussion with me in regards to the fluid resuscitation and evaluation for serial H&H's. CT scan was performed showing a small little fluid collection postoperatively which was normal surgical changes. Review of Systems Review of systems: See HPI for pertinent ROS, all other systems were reviewed and negative. Physical Exam Vitals and Measurements T: 36.8 C (Oral) TMIN: 36.6 C (Oral) TMAX: 37.3 C (Oral) HR: 77(Apical) RR: 18 BP: 115/60 SpO2: 96% Weight Dosing Weight: 63.6 kg (11/28/22) Physical exam: General: Patient is in NAD/nontoxic HEENT: Head was normocephalic atraumatic, extraocular muscles intact. No cervical and submental lymphadenopathy. CVS: Heart was regular rate and rhythm no murmurs appreciated. Pulmonary: CTA B Abdomen: Soft nontender nondistended Extremity: Patient has full range of motion in all extremities. Integumentary: On examination abdomen is soft appropriately tender incisions are all covered with series JPs are serosanguineous fluid. No evidence of any significant ecchymosis erythema or cellulitis no evidence of dehiscence or drainage from the incision sites. No palpable fluid waves noted on exam especially over the right lower quadrant on CT scan where this was demonstrated. Psych: Oriented x 3 Lab Results 11/30 06:26 WBC: 8.8 Hgb: 8.6 L Hct: 25.0 L Platelet: 271 Neutrophil %: 67.2 Glucose Level: 86 Sodium Level: 140 Potassium Level: 4.4 BUN: 11.0 Creatinine Lvl (s): 0.91 11/29 05:05 WBC: 10.5 Hgb: 8.6 L Hct: 24.6 L Platelet: 235 Neutrophil %: 73.5 Glucose Level: 149 H Sodium Level: 137 Potassium Level: 4.1 BUN: 12.0 Creatinine Lvl (s): 0.81 11/28 21:58 Hgb: 8.5 L Assessment/Plan Postoperative pain Patient had some slight postoperative anemia secondary to blood loss as well as compounded with significant dehydration for lack of p.o. intake postoperatively. Recommended transfer here to [place] for admission for fluid resuscitation patient did receive 2 PRBCs. Patient states that she feels muchimproved. She is concerned about going home as her states he is elderly and may have difficulty assisting her. In my consultation initially I always direct the patient's to make sure that after surgery there is help when choosing a surgical date. At this time I also fear she may may not quite have the mobility I recommend assessment by physical therapy for evaluation prior to discharge. Once again appreciate primary team. I will check another H&H either this evening or tomorrow morning make sure it stable. There may be a little bit of hemodilution secondary to IV fluid resuscitation this should be expected. Her D-dimers can be high secondary to her postoperative status. Once thepatient's H&H is stable and she is evaluated by physical therapy okay for discharge from my standpoint no surgical intervention needed. We will continue to follow. Problem List/Past Medical History Ongoing Diabetes mellitus GERD - Gastro-esophageal reflux disease Hypertension Thyroid Historical No qualifying data Procedure/Surgical History Knee replacement: 08/2022 Hip replacement: 06/2022 EGD (esophagogastroduodenoscopy) and closure of duodenal fistula: 2022 Colonoscopy: 2022 Gastric bypass: 2018 Total knee replacement: 2012 ORIF - Open reduction and internal fixation of fracture: 2010 Hysterectomy: 1989 Finger Medications Inpatient acetaminophen-oxyCODONE 325 mg-5 mg oral tablet, 1 tab(s), Oral, q6h, PRN albuterol 2.5 mg/3 mL (0.083%) inhalation solution, 2.5 mg= 3 mL, Inhalation, TIDRT atorvastatin, 20 mg= 1 tab(s), Oral, qHS buPROPion 300 mg/24 hours (XL) oral tablet, extended release, 300 mg= 1 tab(s), Oral, q24h Calcium Gluconate IVPB calcium-vitamin D, 1 tab(s), Oral, qDayM docusate, 100 mg= 1 cap(s), Oral, BID doxycycline, 100 mg= 1 cap(s), Oral, BID DuoNeb, 3 mL, Inhalation, q4hRT, PRN famotidine, 20 mg= 1 tab(s), Oral, BID, PRN FLUoxetine, 60 mg= 3 cap(s), Oral, qAM glimepiride, 1 mg= 1 tab(s), Oral, qAM HumaLOG 100 units/mL subcutaneous solution, Give 0-5 units/dose, Subcutaneous, TIDAC levothyroxine, 100 mcg= 1 tab(s), Oral, qDay Miralax Powder Packet, 17 gram(s)= 15 mL, Oral, qDay, PRN Multiple Vitamins oral capsule, 1 cap(s), Oral, Daily NS 1,000 mL, 1000 mL, Intravenous Protonix Ther Interch for Nexium 40 mg, 40 mg= 1 tab(s), Oral, qDayAC traZODone, 200 mg= 2 tab(s), Oral, qHS Home albuterol MDI (90 mcg/inh) CFC free inhalation aerosol, 1 puff(s), Inhalation, q4h, PRN Apple cider, 450 ng, Oral, qAM atorvastatin 20 mg oral tablet, 20 mg= 1 tab(s), Oral, qHS buPROPion 300 mg/24 hours (XL) oral tablet, extended release, 300 mg= 1 tab(s), Oral, q24h calcium (as calcium citrate) 250 mg oral tablet, 250 mg= 1 tab(s), Oral, qAM, On hold for Surgery doxycycline hyclate 100 mg oral capsule, 100 mg= 1 cap(s), Oral, BID doxycycline hyclate 100 mg oral capsule, 100 mg= 1 cap(s), Oral, TID esomeprazole 40 mg oral delayed release capsule, 40 mg= 1 cap(s), Oral, BID famotidine 20 mg oral tablet, 20 mg= 1 tab(s), Oral, BID, PRN FLUoxetine 20 mg oral capsule, 60 mg= 3 cap(s), Oral, qAM glimepiride 2 mg oral tablet, 1 mg= 0.5 tab(s), Oral, qAM levothyroxine 100 mcg (0.1 mg) oral tablet, 100 mcg= 1 tab(s), Oral, qDay lisinopril 10 mg oral tablet, 10 mg= 1 tab(s), Oral, qHS Multiple Vitamins oral capsule, 1 cap(s), Oral, Daily mupirocin 2% topical ointment, 1 manjinder, Topical, BID Neuriva Brain performance Plus, 2 tab, Oral, qDay ondansetron 8 mg oral tablet, 8 mg= 1 tab(s), Oral, q8h, PRN oxyCODONE 5 mg oral tablet ( IMMEDIATE release ), 5 mg= 1 tab(s), Oral, q6hr, PRN Percocet 5 mg-325 mg oral tablet, 1 tab(s), Oral, q6h, PRN traZODone 100 mg oral tablet, 2 tab, Oral, qHS Trulicity Pen 0.75 mg/0.5 mL subcutaneous solution, 0.75 mg, Subcutaneous, Thursday, On hold for Surgery turmeric 500 mg oral capsule, 4 cap(s), Oral, qAM Tylenol Extra Strength 500 mg oral tablet, 1000 mg= 2 tab(s), Oral, q6hr, PRN Allergies Vicodin (Itching) Social History Alcohol Use: Current. Type: Liquor. Frequency: 1-2 times per month., 11/12/2022 Home/Environment Domestic Concerns: None. Living situation: Home with assistance. Lives In: Single level home. Current Home Treatments ice machine for knee. Professional Skilled Services or Special Community Resources None. Marital Status: ., 11/12/2022 Nutrition/Health Type of diet: Regular., 11/26/2022 Sexual Sexually active: Yes., 11/26/2022 Substance Abuse Use: Never., 11/12/2022 Tobacco Nicotine Use: Former smoker, quit more than 30 days ago. Started at age: 16 Years. Stopped at age: 46 Years., 11/12/2022 Family History Cancer: Father. Malignant tumor of kidney: Brother. Malignant tumor of pancreas: Brother. Polio: Mother. Thyroid cancer: Sister. Immunizations pneumococcal 13-valent conjugate vaccine: 0 unknown unit (06/05/16) pneumococcal 23-valent vaccine(Pneumovax: 0.5 unknown unit (01/27/19) pneumococcal 23-valent vaccine(Pneumovax: 0 unknown unit (01/27/14) SARS-CoV-2 mRNA (tozinameran) vaccine: 0.3 unknown unit (03/10/21) SARS-CoV-2 mRNA (tozinameran) vaccine: 0.3 unknown unit (06/22/20) SARS-CoV-2 mRNA (tozinameran) vaccine: 0.3 unknown unit (06/01/20) tetanus/diphth/pertuss (Tdap) adult/adol: 0.5 unknown unit (02/18/18) zoster vaccine live: 0 unknown unit (03/25/14) zoster vaccine, inactivated: 1 unknown unit (08/08/21) zoster vaccine, inactivated: 0.5 unknown unit (11/25/18) Digitally Signed by RAFI EGAN MD on 11/30/2022 09:23 AM Digitally Signed by RAFI EGAN MD on 11/30/2022 09:[address] [id number]* Exam Date Time Procedure Performing Provider Status 11/30/22 7:40 AM Echocardiogram, Adult - CV Auth (Verified) [facility] 09-09-2023 Note Date of Service 11/29/2022 Chief Complaint Patient seen and examined today for presyncopal episode, hypotension, acute blood loss anemia, postsurgical hematoma, acute kidney injury, hyponatremia Subjective Patient seen today, denied any lightheadedness or dizziness today. She has some pain over lower abdominal surgical site Objective Vitals and Measurements T: 36.9 C (Oral) TMIN: 36.7 C (Oral) TMAX: 36.9 C (Oral) HR: 87 RR: 18 BP: 132/60 BP: 103/62(Sitting) BP: 121/55(Standing) BP: 122/65(Supine) SpO2: 97% Intake and Output 7AM Yesterday to 7AM Today Intake and Output (Last 24 hours) Intake Administration Information 1200.00 Oral Intake 1000.00 Output Surgical Drain, Tube Output: 45.00 Urinary Catheter Output: 1150.00 Stool Count 0.00 Total Summary Total Intake 2200.00 Total Output 1195.00 Fluid Balance 1005.00 Physical Exam General Appearance: Patient appears healthy, well-developed, not in any acute distress. Cardiac: Normal rate and rhythm, S1-S2 heard, no murmurs heard. Lungs: Clear on auscultation bilaterally, no wheezes or rales. Abdomen: Abdominal dressings intact, mild tenderness on palpation of lower abdomen wall Extremities: No pedal edema. Neurological: Alert ,oriented, no focal deficits. Psychiatric: Not anxious or depressed. Weight Dosing Weight: 63.6 kg (11/28/22) Medications Medications (18) Active Scheduled: (13) albuterol 0.083% Soln UD (2.5mg/3 mL) 2.5 mg 3 mL, Inhalation, TIDRT atorvastatin 20 mg tablet 20 mg 1 tab(s), Oral, qHS bupropion 300 mg/24 hours ER tablet 300 mg 1 tab(s), Oral, q24h calcium-vitamin D 500 mg-200 units tablet 1 tab(s), Oral, qDayM docusate sodium 100 mg Capsule 100 mg 1 cap(s), Oral, BID doxycycline hyclate 100 mg Capsule 100 mg 1 cap(s), Oral, BID fluoxetine 20 mg Capsule 60 mg 3 cap(s), Oral, qAM glimepiride 1 mg Tablet 1 mg 1 tab(s), Oral, qAM insulin lispro 100 units/mL Soln (3 mL) Give 0-5 units/dose, Subcutaneous, TIDAC levothyroxine 100 mcg tablet 100 mcg 1 tab(s), Oral, qDay multivitamin (Nephrocaps) Vitamin B Complex with C and Folic Acid Capsule 1 cap(s), Oral, Daily pantoprazole 40 mg EC tablet 40 mg 1 tab(s), Oral, qDayAC traZODONE 100 mg Tablet 200 mg 2 tab(s), Oral, qHS Continuous: (1) NS (0.9% nacl) 1,000 mL 1,000 mL, Intravenous, 50 mL/hr PRN: (4) acetaminophen-OXYcodone 325 mg-5 mg Tablet 1 tab(s), Oral, q6h albuterol - ipratropium 2.5 mg-0.5 mg/3 mL Inhal Sole UD 3 mL, Inhalation, q4hRT famotidine 20 mg tablet 20 mg 1 tab(s), Oral, BID polyethylene glycol 3350 - UD packet 17 gram(s) 15 mL, Oral, qDay Lab Results 11/29 05:05 WBC: 10.5 Hgb: 8.6 L Hct: 24.6 L Platelet: 235 Neutrophil %: 73.5 Glucose Level: 149 H Sodium Level: 137 Potassium Level: 4.1 BUN: 12.0 Creatinine Lvl (s): 0.81 11/28 21:58 Hgb: 8.5 L 11/28 15:59 Hgb: 8.5 L 11/28 14:47 Hgb: 8.6 L 11/28 09:08 Hgb: 7.4 L 11/28 05:44 WBC: 15.6 H Hgb: 7.8 L Hct: 23.1 L Platelet: 257 Neutrophil %: 82.1 H Glucose Level: 174 H Sodium Level: 135 L Potassium Level: 4.2 BUN: 18.0 Creatinine Lvl (s): 0.96 EKG No qualifying data available. Assessment/Plan Postoperative pain Orders: docusate, Start: 11/29/22 9:19:00 EDT, Dose = 100 mg, = 1 cap(s), Oral, BID, 11/29/22 9:19:00 EDT glimepiride, Start: 11/29/22 14:39:00 EDT, Dose = 1 mg, = 1 tab(s), Oral, qAM, 0, 11/29/22 11:12:00EDT polyethylene glycol 3350, Start: 11/29/22 9:19:00 EDT, Dose = 17 gram(s), = 15 mL, Oral, qDay, PRN,Constipation, 11/29/22 9:19:00 EDT Basic Metabolic Panel Calcium Level Ionized Complete Blood Count Consult to Occupational Therapy Consult to Physical Therapy Consult to Physician 1. Lightheadedness and presyncopal episode: Mostly due to low blood pressure and hemorrhage -Blood pressure was 87/55 in ED, improved with fluids. -Check echocardiogram to rule out any other cardiac etiology. -CTA negative for pulmonary embolism. 2. Acute blood loss anemia: Due to poor surgical hematoma -CT abdomen showed right lower flank deep subcutaneous hemorrhage/hematoma about 14.8 cm in length and roughly 2 cm in thickness., With some extension to more central and anterior pelvic wall -Patient s/p 2 PRBC 3. Acute kidney injury, creatinine 1.92 on admission, resolved, mostly prerenal from hypotension 4. Hyponatremia, sodium was 127 on admission, resolved, could be from dehydration. 5. Hypertension: Hold lisinopril as blood pressure is borderline 6. Hypotension on admission resolved 7. Postsurgical hematoma: Plastic surgery consulted for further evaluation and recommendation Patient had panniculectomy and diastases recti repair on November 26 8. 2.4 cm cystic pancreatic lesion on CT abdomen, Presumably low-grade or benign cystic neoplasm. 6-month follow-up dedicated pancreas MRI study recommended to reassess. patient needs MRI of pancreas as outpatient for follow-up. 9. Hypothyroidism on levothyroxine 10. . Type 2 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, continue insulin sliding scale , glimepiride DVT prophylaxis on SCDs Digitally Signed by JUSTIN LONG MD on 11/29/2022 04:[address] [id number] Note Date of Service 11/28/2022 Chief Complaint Patient seen and examined today for presyncopal episode, acute blood loss anemia, postsurgical hematoma, acute kidney injury, hyponatremia Subjective Patient seen today, complains of fatigue. She denied any loss of consciousness. Confirmed with patient's . She had lightheadedness and she was about to fall, family member helped her. Denies any chest pain or shortness of breath. Objective Vitals and Measurements T: 36.9 C (Oral) TMIN: 36.5 C (Oral) TMAX: 37.0 C (Oral) HR: 82 RR: 18 BP: 126/63 SpO2: 98% HT: 157.5 cm WT: 63.6 kg BMI: 25.64 Intake and Output 7AM Yesterday to 7AM Today Intake and Output (Last 24 hours) Intake Red Blood Cells Amount Transfused 400.00 Administration Information 500.00 Oral Intake 500.00 Output Surgical Drain, Tube Output: 115.00 Urinary Catheter Output: 500.00 Stool Count 0.00 Urine Count 2.00 Total Summary Total Intake 1400.00 Total Output 615.00 Fluid Balance 785.00 Physical Exam General Appearance: Patient appears healthy, well-developed, not in any acute distress. Cardiac: Normal rate and rhythm, S1-S2 heard, no murmurs heard. Lungs: Clear on auscultation bilaterally, no wheezes or rales. Abdomen: Abdominal dressings intact, mild tenderness on palpation of lower abdomen wall Extremities: No pedal edema. Neurological: Alert ,oriented, no focal deficits. Psychiatric: Not anxious or depressed. Weight Dosing Weight: 63.6 kg (11/28/22) Medications Medications (15) Active Scheduled: (11) albuterol 0.083% Soln UD (2.5mg/3 mL) 2.5 mg 3 mL, Inhalation, TIDRT atorvastatin 20 mg tablet 20 mg 1 tab(s), Oral, qHS bupropion 300 mg/24 hours ER tablet 300 mg 1 tab(s), Oral, q24h calcium-vitamin D 500 mg-200 units tablet 1 tab(s), Oral, qDayM doxycycline hyclate 100 mg Capsule 100 mg 1 cap(s), Oral, BID fluoxetine 20 mg Capsule 60 mg 3 cap(s), Oral, qAM insulin lispro 100 units/mL Soln (3 mL) Give 0-5 units/dose, Subcutaneous, TIDAC levothyroxine 100 mcg tablet 100 mcg 1 tab(s), Oral, qDay multivitamin (Nephrocaps) Vitamin B Complex with C and Folic Acid Capsule 1 cap(s), Oral, Daily pantoprazole 40 mg EC tablet 40 mg 1 tab(s), Oral, qDayAC traZODONE 100 mg Tablet 200 mg 2 tab(s), Oral, qHS Continuous: (1) NS (0.9% nacl) 1,000 mL 1,000 mL, Intravenous, 50 mL/hr PRN: (3) acetaminophen-OXYcodone 325 mg-5 mg Tablet 1 tab(s), Oral, q6h albuterol - ipratropium 2.5 mg-0.5 mg/3 mL Inhal Sole UD 3 mL, Inhalation, q4hRT famotidine 20 mg tablet 20 mg 1 tab(s), Oral, BID Lab Results 11/28 15:59 Hgb: 8.5 L 11/28 14:47 Hgb: 8.6 L 11/28 09:08 Hgb: 7.4 L 11/28 05:44 WBC: 15.6 H Hgb: 7.8 L Hct: 23.1 L Platelet: 257 Neutrophil %: 82.1 H Glucose Level: 174 H Sodium Level: 135 L Potassium Level: 4.2 BUN: 18.0 Creatinine Lvl (s): 0.96 EKG No qualifying data available. Assessment/Plan Postoperative pain Ordered: acetaminophen-oxyCODONE, Start: 11/28/22 10:15:00 EDT, Dose = 1 tab(s), Tab, Oral, q6h, PRN, Pain, 11/28/22 10:15:00 EDT 1. Lightheadedness and presyncopal episode: Mostly due to low blood pressure and hemorrhage -Blood pressure was 87/55 in ED, improved with fluids. -Check echocardiogram to rule out any other cardiac etiology. -CTA negative for pulmonary embolism. 2. Acute blood loss anemia: Due to poor surgical hematoma -CT abdomen showed right lower flank deep subcutaneous hemorrhage/hematoma about 14.8 cm in length and roughly 2 cm in thickness., With some extension to more central and anterior pelvic wall -Patient s/p 2 PRBC 3. Acute kidney injury, creatinine 1.92 on admission, resolved 4. Hyponatremia, sodium was 127 on admission, currently 135, could be from dehydration. 5. Hypertension: Hold lisinopril as blood pressure on the lower side 6. Hypotension on admission resolved 7. Postsurgical hematoma: Plastic surgery consulted for further evaluation and recommendation Patient had panniculectomy and diastases recti repair on November 26 8. 2.4 cm cystic pancreatic lesion on CT abdomen, patient needs MRI of pancreas as outpatient. 9. Hypothyroidism on levothyroxine 10. . Type 2 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, continue insulin sliding scale DVT prophylaxis on SCDs Digitally Signed by JUSTIN LONG MD on 11/28/2022 05:34 PM Digitally Signed by JUSTIN LONG MD on 11/28/2022 05:[address] [id number] Evaluation + Plan noteExtracted from: Title:History and Physical Author:KATERINE MERCER Date:11/28/22 Lightheadedness Acute blood loss anemia Post surgical hematoma Acute dehydration CHAVEZ DM2 Hypertension Hypothyroidism GERD Admit patient for management of her surgical hematoma and subsequent acute blood loss anemia. This explains partially the patient's lightheadedness, near syncope. Additionally patient has not been tolerating p.o. This is evident and that the patient has an CHAVEZ. -Dr. Egan service, surgery consulted -Abdominal drain in place with serosanguineous drainage, maintain abdominal binder. -CBC ordered daily transfuse if hemoglobin less than 7. Received 1 unit packed red blood cells and Sven. -75 cc an hour lactated Ringer's maintenance IVF. Repeat BMP in morning to ensure improvement in CHAVEZ. Hyponatremia likely secondary to pain and SIADH versus low solute intake. Urine studies ordered. -Limit nephrotoxins in setting of CHAVEZ Continue patient's home chronic medications pending pharmacy verification. [facility] 09-08-2023 Respiratory therapy Hospital Progress note Respiratory Therapy Evaluation Entered On: 11/28/2022 8:05 EDT Performed On: 11/28/2022 8:04 EDT by Dao Lenz RRT Respiratory Therapy Evaluation Pulmonary Status : Pulmonary disorder Surgical Status : Lower abdominal surgery Chest X-Ray : Clear/not ordered Breath Sounds (RT) : Clear Respiratory Pattern (RT) : Regular RR=12-20 Cough (RT) : Strong, non-productive Respiratory Therapy Evaluation Score : 6 Level of Activity : Ambulatory with assistance Mental Status : Alert, oriented Respiratory Evaluation Triage Score : 4 - (6-10) Freq: TIDRT & Albuterol Q2hRT prn RT Assessment [Frequency/Schedule] : TID Dao Eli GEAR GRINDER - 11/28/2022 8:04 EDT Digitally Signed by Dao Lenz GEAR GRINDER on 11/28/2022 08:[address] [id number] History and physical note Date of Service November 28, 2022 Chief Complaint Dizziness History of Present Illness 72-year-old female with a past medical history consistent with DM2, GERD, hypertension, hypothyroidism who recently underwent panniculectomy and diastasis recti repair on November [address] [facility] as a transfer from [facility] given concern for syncope. The patient was discharged home same day and she states that she was dizzy as early as the ride home. . Per report, patient found to have blood pressure of 87/55. After 2 L normal saline bolus, systolic BP improved to the 100s. Dr. Egan performed the surgery on November 26. In [facility], Hgb found to be 6.8 on CBC. WBC on CBC was 22.8. Sodium was 127 on BMP, creatinine 1.92. Lactic acid was 2.1. EKG in NSR. The patient was transfused 1 unit PRBC in the [facility] ED. Repeat BMP and CBC pending. CT abdomen and pelvis revealed right lower anterior flank hematoma with extension to the anterior pelvic wall. Upon arrival, patient in no acute distress. The patient denies active hematuria, hematochezia, melena, hemoptysis. Vital signs stable upon evaluation. The patient states that she feels much improved after 1 unit of packed red blood cells and the 2 L of normal saline bolus. She longer feels lightheaded. Review of Systems Complete detailed review of systems obtained and all pertinent positives and negatives are noted inthe history of present illness. Physical Exam Vitals and Measurements T: 36.6 C (Oral) HR: 88(Apical) RR: 16 BP: 147/69 SpO2: 94% HT: 157.5 cm WT: 63.6 kg BMI: 25.64 Weight Dosing Weight: 63.6 kg (11/28/22) Physical Examination General: No apparent distress. Alert and appropriate. HEENT: NCAT EOMI Neck: Supple. No appreciable elevation in JVP. Cardiovascular: S1 S2 normal. No extra-audible heart tones. Respiratory: Bilaterally clear breath sounds with no crepitation or wheeze. Abdominal: Soft, nontender and nonrigid. No guarding. Bowel sounds present. Extremities: No edema. Adequate peripheral circulation. Neurological: Grossly intact without focal deficit. Cerebellar function preserved. Skin: Intact. Dry. No rash. Drain in place in abdomen with serosanguineous drainage Lab Results No 36 Hour Lab Data Imaging Results and Diagnostics IMPRESSION: CT abdomen pelvis, reviewed 1. Postoperative changes at the lower anterior abdominal and pelvic wall with drains in place. 2. Right lower anterolateral flank deep subcutaneous hemorrhage/hematoma, with some extension to the more central and anterior pelvic wall. No other fluid collection seen, no definite evidence for abscess. 3. Diverticulosis without diverticulitis. 4. Cystic pancreatic head lesion, presumably low-grade or benign cystic neoplasm. Six-month follow-up dedicated pancreas MRI study recommended to reassess. EKG NSR, reviewed Assessment/Plan Lightheadedness Acute blood loss anemia Post surgical hematoma Acute dehydration CHAVEZ DM2 Hypertension Hypothyroidism GERD Admit patient for management of her surgical hematoma and subsequent acute blood loss anemia. This explains partially the patient's lightheadedness, near syncope. Additionally patient has not been tolerating p.o. This is evident and that the patient has an CHAVEZ. -Dr. Egan service, surgery consulted -Abdominal drain in place with serosanguineous drainage, maintain abdominal binder. -CBC ordered daily transfuse if hemoglobin less than 7. Received 1 unit packed red blood cells and Sven. -75 cc an hour lactated Ringer's maintenance IVF. Repeat BMP in morning to ensure improvement in CHAVEZ. Hyponatremia likely secondary to pain and SIADH versus low solute intake. Urine studies ordered. -Limit nephrotoxins in setting of CHAVEZ Continue patient's home chronic medications pending pharmacy verification. Problem List/Past Medical History Ongoing Diabetes mellitus GERD - Gastro-esophageal reflux disease Hypertension Thyroid Historical No qualifying data Procedure/Surgical History Knee replacement: 08/2022 Hip replacement: 06/2022 EGD (esophagogastroduodenoscopy) and closure of duodenal fistula: 2022 Colonoscopy: 2022 Gastric bypass: 2019 Total knee replacement: 2012 ORIF - Open reduction and internal fixation of fracture: 2010 Hysterectomy: 1989 Finger Medications Home Medications (23) Active albuterol MDI (90 mcg/inh) CFC free inhalation aerosol 1 puff(s), PRN, Inhalation, q4h Apple cider 450 ng, Oral, qAM atorvastatin 20 mg oral tablet 20 mg = 1 tab(s), Oral, qHS buPROPion 300 mg/24 hours (XL) oral tablet, extended release 300 mg = 1 tab(s), Oral, q24h calcium (as calcium citrate) 250 mg oral tablet 250 mg = 1 tab(s), Oral, qAM doxycycline hyclate 100 mg oral capsule 100 mg = 1 cap(s), Oral, TID doxycycline hyclate 100 mg oral capsule 100 mg = 1 cap(s), Oral, BID esomeprazole 40 mg oral delayed release capsule 40 mg = 1 cap(s), Oral, BID famotidine 20 mg oral tablet 20 mg = 1 tab(s), PRN, Oral, BID FLUoxetine 20 mg oral capsule 60 mg = 3 cap(s), Oral, qAM glimepiride 2 mg oral tablet 1 mg = 0.5 tab(s), Oral, qAM levothyroxine 100 mcg (0.1 mg) oral tablet 100 mcg = 1 tab(s), Oral, qDay lisinopril 10 mg oral tablet 10 mg = 1 tab(s), Oral, qHS Multiple Vitamins oral capsule 1 cap(s), Oral, Daily mupirocin 2% topical ointment 1 manjinder, Topical, BID Neuriva Brain performance Plus 2 tab, Oral, qDay ondansetron 8 mg oral tablet 8 mg = 1 tab(s), PRN, Oral, q8h oxyCODONE 5 mg oral tablet ( IMMEDIATE release ) 5 mg = 1 tab(s), PRN, Oral, q6hr Percocet 5 mg-325 mg oral tablet 1 tab(s), PRN, Oral, q6h traZODone 100 mg oral tablet 2 tab, Oral, qHS Trulicity Pen 0.75 mg/0.5 mL subcutaneous solution 0.75 mg, Subcutaneous, Thursday turmeric 500 mg oral capsule 4 cap(s), Oral, qAM Tylenol Extra Strength 500 mg oral tablet 1,000 mg = 2 tab(s), PRN, Oral, q6hr Allergies Vicodin (Itching) Social History Alcohol Use: Current. Type: Liquor. Frequency: 1-2 times per month., 11/12/2022 Home/Environment Domestic Concerns: None. Living situation: Home with assistance. Lives In: Single level home. Current Home Treatments ice machine for knee. Professional Skilled Services or Special Community Resources None. Marital Status: ., 11/12/2022 Nutrition/Health Type of diet: Regular., 11/26/2022 Sexual Sexually active: Yes., 11/26/2022 Substance Abuse Use: Never., 11/12/2022 Tobacco Nicotine Use: Former smoker, quit more than 30 days ago. Started at age: 16 Years. Stopped at age: 46 Years., 11/12/2022 Family History Cancer: Father. Malignant tumor of kidney: Brother. Malignant tumor of pancreas: Brother. Polio: Mother. Thyroid cancer: Sister. Immunizations pneumococcal 13-valent conjugate vaccine: 0 unknown unit (06/05/16) pneumococcal 23-valent vaccine(Pneumovax: 0.5 unknown unit (01/27/19) pneumococcal 23-valent vaccine(Pneumovax: 0 unknown unit (01/27/14) SARS-CoV-2 mRNA (tozinameran) vaccine: 0.3 unknown unit (03/10/21) SARS-CoV-2 mRNA (tozinameran) vaccine: 0.3 unknown unit (06/22/20) SARS-CoV-2 mRNA (tozinameran) vaccine: 0.3 unknown unit (06/01/20) tetanus/diphth/pertuss (Tdap) adult/adol: 0.5 unknown unit (02/18/18) zoster vaccine live: 0 unknown unit (03/25/14) zoster vaccine, inactivated: 1 unknown unit (08/08/21) zoster vaccine, inactivated: 0.5 unknown unit (11/25/18) Code Status Code Status - Ordered -- 11/28/22 3:50:00 EDT, Full Code, Constant Order Digitally Signed by KATERINE MERCER DO on 11/28/2022 04:50 AM Digitally Signed by KATERINE MERCER DO on 11/28/2022 06:[address] [id number] Note ORIGINAL EXAMINATION: CTA OF THE CHEST11/27/2022 3:15 pm CTA CHEST WITH CONTRAST TECHNIQUE: CTA of the chest was performed after the administration of intravenous contrast. Multiplanar reformatted images are provided for review. MIP images are provided for review. Automated exposure control, iterative reconstruction, and/or weight based adjustment of the mA/kV was utilized to reduce the radiation dose to as low as reasonably achievable. CTA of the thorax was acquired in the axial plane. Coronal and sagittal reformatted images were reviewed. Three dimensional reconstructions were created on a separate workstation. COMPARISON: Portable chest 11/27/2022. HISTORY: ORDERING SYSTEM PROVIDED HISTORY: Reason for Exam: chest pain; suspect PE FINDINGS: There is satisfactory pulmonary arterial contrast opacification with no evidence of pulmonary embolic disease. Thoracic aortic caliber is normal. There are no enlarged mediastinal or hilar lymph nodes. There are coronary artery calcifications. There are no pleural or pericardial effusions. Gastric bypass surgical changes are noted. The adrenal glands are normal. There are no calcified gallstones. In the lateral upper pole of the right kidney there is a simple fluid containing 2.5 cm exophytic cortical cyst. There is a simple fluid containing cyst measuring 1.4 cm in the superior right lobe of the liver. Lung window images: Right lung: There is posterior right basilar pleuroparenchymal scarring. There is no evidence of pneumonia or gross mass or nodules or interstitial lung disease or bronchiectasis. Left lung: Unremarkable. There are no lytic or blastic osseous lesions. IMPRESSION: 1. No evidence of pulmonary embolic disease or acute intrathoracic process. Interpreted by: Uvaldo Gutierrez Preliminary Report By: Uvaldo Gutierrez Electronically signed By Uvaldo Gutierrez Dictated Date: 11/27/2022 3:27:43 PM Prelim Date: 11/27/2022 3:33:39 PM Sign Date: 11/27/2022 3:33:39 PM Ordering Provider: [facility]09-07-2023 Note ORIGINAL EXAMINATION: CT OF THE ABDOMEN AND PELVIS WITH CONTRAST 11/27/2022 3:11 pm TECHNIQUE: CT of the abdomen and pelvis was performed with the administration of intravenous contrast. Multiplanar reformatted images are provided for review. Automated exposure control, iterative reconstruction, and/or weight based adjustment of the mA/kV was utilized to reduce the radiation dose to as low as reasonably achievable. COMPARISON: None. HISTORY: ORDERING SYSTEM PROVIDED HISTORY: Reason for Exam: pain FINDINGS: CT chest is also performed and is reported separately. Minor degenerative changes are noted in the spine. Metallic artifact emanates from a sacral stimulator and lead, and there is also prominent metallic artifact from a right hip prosthesis. Gastric bypass postoperative changes are noted. A small sliding hiatal hernia is visible. A cyst is noted at the central aspect of the liver. No other liver lesions seen. The spleen, and adrenal glands are unremarkable. There is a cystic area identified at the posterior head of the pancreas, 2.4 cm. No other pancreatic abnormality seen. Right renal cyst is evident. No other kidney finding. No adenopathy, free air or free fluid seen. The urinary bladder is grossly normal. There is moderately prominent diverticulosis of the sigmoid and distal left colon, with scattered diverticula elsewhere as well. No evidence for diverticulitis. No other GI tract abnormality seen. There is some subcutaneous air at the lower anterior abdominal wall. There are drains in place within the subcutaneous regions from the recent prior surgery. At the right lower flank, there is also some deep subcutaneous hyperdensity, compatible with hemorrhage/hematoma. This is over a length of approximately 14.8 cm, and the lesion is roughly 2 cm in thickness. No other fluid collection is identified. There is some hyperdensity at the central lower anterior pelvic wall, probably representing some blood in this area as well. Induration of the subcutaneous fat at the anterior pelvic wall is noted, considered postoperative. No additional contributory finding seen. IMPRESSION: 1. Postoperative changes at the lower anterior abdominal and pelvic wall with drains in place. 2. Right lower anterolateral flank deep subcutaneous hemorrhage/hematoma, with some extension to the more central and anterior pelvic wall. No other fluid collection seen, no definite evidence for abscess. 3. Diverticulosis without diverticulitis. 4. Cystic pancreatic head lesion, presumably low-grade or benign cystic neoplasm. Six-month follow-up dedicated pancreas MRI study recommended to reassess. Interpreted by: Wade Velasco MD Preliminary Report By: Wade Velasco MD Electronically signed By Wade Velasco MD Dictated Date: 11/27/2022 3:14:14 PM Prelim Date: 11/27/2022 3:28:39 PM Sign Date: 11/27/2022 3:28:39 PM Ordering Provider: [place] [address]21-07-2023 Note ORIGINAL EXAMINATION: ONE XRAY VIEW OF THE CHEST 11/27/2022 12:53 pm COMPARISON: X-ray ribs 02/28/2021 HISTORY: ORDERING SYSTEM PROVIDED HISTORY: Reason for Exam: SOB/cough/fever FINDINGS: Normal cardiomediastinal silhouette. Low lung volumes due to hypoventilation. No focal consolidation, large pleural effusion or pneumothorax. Tubes and lines project over the image. Safety pins projecting over the upper abdomen are presumably external to the patient. IMPRESSION: No acute radiographic cardiopulmonary findings. I have personally reviewed the images of this examination and agree with the resident's finding and interpretation. Interpreted by: Lindsey Sinclair MD Preliminary Report By: Jeff Simpson Electronically signed By Lindsey Sinclair MD Dictated Date: 11/27/2022 1:10:01 PM Prelim Date: 11/27/2022 1:17:32 PM Sign Date: 11/27/2022 1:17:32 PM [facility] NoteSinus rhythm Probable left ventricular hypertrophy Baseline wander in lead(s) V4 Electronic Signature: MD SEKOU WALKER MD 11/27/2022 13:02:38[facility] 09-06-2023 Hospital Discharge instructions Patient Education 11/26/2022 16:03:49 1-[facility] Discharge Instructions Template (12/2017) (CUSTOM) [place] SAME DAY SURGERY DISCHARGE INSTRUCTIONS PLEASE FOLLOW THE INSTRUCTIONS BELOW MARKED WITH AN X: __x_ Regular Diet: Start with clear liquids, then soup and crackers and gradually add other foods. __x_ Drink extra fluids. ___ Special Diet Instructions: ___ ACTIVITY: _x__ Avoid stress to suture line. Since you have had an anesthetic, it would be advisable not to drive, drink alcohol, or make major decisions over the next 24 hours. You may require more rest tonight and tomorrow. ___ May resume regular activity as tolerated. ___ Restrict activity as follows: ___ ___ Walk Only ___ ___ Do not go up and down stairs. ___ Do not ride in car until ___ ___ Do not drive car. ___ Do not have sexual intercourse. _x__ No heavy lifting, pushing or straining. _x__ Other: _Follow all of Dr. Egan's verbal and printed instrctions. __ BATHING/SHOWERING: ___ Sponge bathe until office visit. ___ Sitting in tub of warm water may relieve discomfort. ___ May tub bathe ___ May shower ___ On day after surgery sit in tub of warm water to soak off dressing. DRESSING: ___ Keep operative area dry and clean for ___ ___ Check the operative area for signs of bleeding. Apply pressure to the bleeding site if necessary and call your physician. ___ Change dressing as necessary using sterile dressing material or bandaid. ___ Reinforce dressing as necessary. ___ Change and care for wound as follows: ___ ___ Wear bra for ___ days following breast surgery for comfort. ___ Change drip pad as needed. ___ Wear scrotal support for comfort. WATCH FOR SIGNS OF INFECTION: (Usually appears 36-48 hours after surgery) Increased temperature (101 degrees Fahrenheit or higher) Redness or swelling Increased pain Foul odor or drainage. If you have any questions, please call your doctor at the number listed on your follow up instructions. Follow all instructions given to you by your physician. Please complete and return the survey you will be receiving in the mail to help us better serve our patients. Form: [id number] ([id number]) R: 06/2911/26/2022 16:02:50 Surgical Drain Home Care Surgical Drain Home Care Surgical drains are used to remove extra fluid that normally builds up in a surgical wound after surgery. A surgical drain helps to heal a surgical wound. Different kinds of surgical drains include: Active drains. These drains use suction to pull drainage away from the surgical wound. Drainage flows through a tube to a container outside of the body. With these drains, you need to keep the bulb or the drainage container flat (compressed) at all times, except while you empty it. Flattening the bulb or container creates suction. Passive drains. These drains allow fluid to drain naturally, by gravity. Drainage flows through a tube to a bandage (dressing) or a container outside of the body. Passive drains do not need to be emptied. A drain is placed during surgery. Right after surgery, drainage is usually bright red and a little thicker than water. The drainage may gradually turn yellow or pink and become thinner. It is likely that your health care provider will remove the drain when the drainage stops or when the amount decreases to 1 2 Tbsp (15 30 mL) during a 24-hour period. Supplies needed: Tape. Germ-free cleaning solution (sterile saline). Cotton swabs. Split gauze drain sponge: 4 x 4 inches (10 x 10 cm). Gauze square: 4 x 4 inches (10 x 10 cm). How to care for your surgical drain Care for your drain as told by your health care provider. This is important to help prevent infection. If your drain is placed at your back, or any other kjlu-es-aajsy area, ask another person to assist you in performing the following tasks: General care Keep the skin around the drain dry and covered with a dressing at all times. Check your drain area every day for signs of infection. Check for: ?Redness, swelling, or pain. ?Pus or a bad smell. ?Cloudy drainage. ?Tenderness or pressure at the drain exit site. Changing the dressing Follow instructions from your health care provider about how to change your dressing. Change your dressing at least once a day. Change it more often if needed to keep the dressing dry. Make sure you: 1.Gather your supplies. 2.Wash your hands with soap and water before you change your dressing. If soap and water are not available, use hand squad boss. 3.Remove the old dressing. Avoid using scissors to do that. 4.Wash your hands with soap and water again after removing the old dressing. 5.Use sterile saline to clean your skin around the drain. You may need to use a cotton swab to clean the skin. 6.Place the tube through the slit in a drain sponge. Place the drain sponge so that it covers your wound. 7.Place the gauze square or another drain sponge on top of the drain sponge that is on the wound. Make sure the tube is between those layers. 8.Tape the dressing to your skin. 9.Tape the drainage tube to your skin 1 2 inches (2.5 5 cm) below the place where the tube enters your body. Taping keeps the tube from pulling on any stitches (sutures) that you have. 10.Wash your hands with soap and water. 11.Write down the color of your drainage and how often you change your dressing. How to empty your active drain 1.Make sure that you have a measuring cup that you can empty your drainage into. 2.Wash your hands with soap and water. If soap and water are not available, use hand squad boss. 3.Loosen any pins or clips that hold the tube in place. 4.If your health care provider tells you to strip the tube to prevent clots and tube blockages: Hold the tube at the skin with one hand. Use your other hand to pinch the tubing with your thumb and first finger. Gently move your fingers down the tube while squeezing very lightly. This clears any drainage, clots, or tissue from the tube. You may need to do this several times each day to keep the tube clear. Do not pull on the tube. 5.Open the bulb cap or the drain plug. Do not touch the inside of the cap or the bottom of the plug. 6.Turn the device upside down and gently squeeze. 7.Empty all of the drainage into the measuring cup. 8.Compress the bulb or the container and replace the cap or the plug. To compress the bulb or the container, squeeze it firmly in the middle while you close the cap or plug the container. 9.Write down the amount of drainage that you have in each 24-hour period. If you have less than 2 Tbsp (30 mL) of drainage during 24 hours, contact your health care provider. 10.Flush the drainage down the toilet. 11.Wash your hands with soap and water. Contact a health care provider if: You have redness, swelling, or pain around your drain area. You have pus or a bad smell coming from your drain area. You have a fever or chills. The skin around your drain is warm to the touch. The amount of drainage that you have is increasing instead of decreasing. You have drainage that is cloudy. There is a sudden stop or a sudden decrease in the amount of drainage that you have. Your drain tube falls out. Your active drain does not stay compressed after you empty it. Summary Surgical drains are used to remove extra fluid that normally builds up in a surgical wound after surgery. Different kinds of surgical drains include active drains and passive drains. Active drains use suction to pull drainage away from the surgical wound, and passive drains allow fluid to drain naturally. It is important to care for your drain to prevent infection. If your drain is placed at your back, or any other xrlt-tg-isvwu area, ask another person to assist you. Contact your health care provider if you have redness, swelling, or pain around your drain area. This information is not intended to replace advice given to you by your health care provider. Make sure you discuss any questions you have with your health care provider. Document Released: 03/06/2001 Document Revised: 04/13/2019 Document Reviewed: 04/13/2019 [employer] Patient Education 2020 [employer] 11/26/2022 15:55:00 Panniculectomy, Care After Panniculectomy, Care After This sheet gives you information about how to care for yourself after your procedure. Your health care provider may also give you more specific instructions. If you have problems or questions, contact your health care provider. What can I expect after the procedure? After the procedure, it is common for you to have: Pain, swelling, and bruising around your incisions. Some drainage of fluid or blood from your incisions. Scarring. Follow these instructions at home: Incision care Follow instructions from your health care provider about how to take care of your incisions. Make sure you: ?Wash your hands with soap and water before you change your bandage (dressing). If soap and water are not available, use hand squad boss. ?Change your dressing as told by your health care provider. ?Leave stitches (sutures), skin glue, or adhesive strips in place. These skin closures may need to stay in place for 2 weeks or longer. If adhesive strip edges start to loosen and curl up, you may trim the loose edges. Do not remove adhesive strips completely unless your health care provider tells you to do that. Check your incision areas every day for signs of infection. Check for: ?More redness, swelling, or pain. ?More fluid or blood. ?Warmth. ?Pus or a bad smell. Medicines Take xuqx-pca-znpzsml and prescription medicines only as told by your health care provider. If you were prescribed antibiotic medicine, take your antibiotic as told by your health care provider. Do not stop taking the antibiotic even if you start to feel better. Driving Do not drive for 24 hours if you were given a medicine to help you relax (sedative). Do not drive or use heavy machinery while taking prescription pain medicine. Activity Do not lift anything that is heavier than 10 lb (4.5 kg), or the limit that your health care provider tells you, until he or she says that it is safe. Avoid activity that requires a lot of energy, such as exercise or sports, for at least 6 weeks or as told by your health care provider. Ask your health care provider what activities are safe for you. Avoid sexual activity until your health care provider says it is safe. Lifestyle Do not use any products that contain nicotine or tobacco, such as cigarettes and e-cigarettes. If you need help quitting, ask your health care provider. Avoid drinking alcohol. General instructions Follow instructions from your health care provider about how to take care of your drainage tubes. Do not remove your drainage tubes unless told by your health care provider. To prevent or treat constipation while you are taking prescription pain medicine, your health care provider may recommend that you: ?Drink enough fluid to keep your urine clear or pale yellow. ?Take ofnm-zoa-ealdrux or prescription medicines. ?Eat foods that are high in fiber, such as fresh fruits and vegetables, whole grains, and beans. ?Limit foods that are high in fat and processed sugars, such as fried and sweet foods. Do not take baths, shower, swim, or use a hot tub until your health care provider approves. You mayneed to take sponge baths. If you were given an abdominal binder or girdle, wear it at all times, except when bathing. This includes when you are sleeping. Wear your abdominal binder or girdle for as long as told by your health care provider. Keep all follow-up visits as told by your health care provider. This is important. Contact a health care provider if: You have more fluid or blood coming from an incision than normal. An incision feels warm to the touch. You have a fever. You have severe pain, and medicines do not help. Get help right away if: You have pus or a bad smell coming from an incision. You have more redness, swelling, or pain around an incision. An incision starts to break open. You have chest pain. You have problems with breathing. Summary After the panniculectomy, it is common for you to have pain, swelling, and bruising. Check your incision areas every day for signs of infection. Do not remove your drainage tubes unless told by your health care provider. This information is not intended to replace advice given to you by your health care provider. Make sure you discuss any questions you have with your health care provider. Document Released: 05/01/2017 Document Revised: 06/30/2019 Document Reviewed: 05/01/2017 [employer] Patient Education 2020 [employer] Follow Up Care 11/04/2022 15:21:09 With:RAFI EGAN MD, [facility] Address: [address] [facility] [place] [address] [phone] When: Unknown Comments:Follow-up as scheduled [facility] 09-06-2023 Summary of episode note Discharge Instructions Thank you for allowing [facility] to assist you with your healthcare needs. The following is importantdischarge information regarding your hospital visit. 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 No heavy lifting pushing or pulling, or strenuous activity. 2. Keep dressings clean dry and intact x24 hours. Keep compression garment on until seen in follow-up appointment. 3. In 24 hours, patient may remove garment as well as gauze, leave the Steri- Strips over the incision sites and okay to shower 24 hours after procedure. Pat dry and place compression garment back on. 4. Continue to milk drains 2-3X p/day and record drains until seen in follow up appt. 5. Call to schedule your follow-up appointment in 10 to 14 days for follow-up with either DERECK Dueñas or Dr. Egan. 6. You have been written for pain medication as well as antibiotic, please take as instructed. You may use ibuprofen, Aleve, Excedrin intermittently along with the pain medication. 7. DO NOT LIE FLAT. Only in reclining position. 8. Call if you have any other questions or concerns. Follow Up Appointments Follow Up with RAFI EGAN MD, [facility] When Why: Follow-up as scheduled Where: [address] [facility] [place] [address]- [phone] The Following Activity and Diet Have Been Ordered for You Discharge Activity - Ordered -- Follow the post-operative/post-procedure activity instructions provided by your physician's office., 11/26/22 14:11:00 EDT Discharge Diet - Ordered -- Follow the post-operative/post-procedure diet instructions provided by your physician's office.,11/26/22 14:11:00 EDT The Following Equipment Has Been Ordered for You Discharge Home Equipment Discharge Wound Care - Ordered -- Follow the post-operative/post-procedure wound care instructions provided by your physician's office., 11/26/22 14:11:00 EDT Allergies Vicodin (Itching) Medications Please ask your primary doctor or pharmacist before taking any other medication not listed, including over the counter drugs, herbal medications, vitamins and or supplements as they may interact withyour home medications. What How Much When Why Instructions Last Dose New acetaminophen-oxyCODONE (Percocet 5 mg-325 mg oral tablet) 1 tab(s) by mouth Every 6 hours as needed for Pain Postoperative pain Duration: 7 Days Pickup at [facility] Changed doxycycline (doxycycline hyclate 100 mg oral capsule) 1 cap by mouth Two (2) times a day Duration: 10 Days Pickup at [facility] Changed doxycycline (doxycycline hyclate 100 mg oral capsule) 1 cap by mouth Three (3) times a day Unchanged acetaminophen (Tylenol Extra Strength 500 mg oral tablet) 2 tab(s) by mouth Every 6 hours as needed for as needed for pain Unchanged albuterol (albuterol MDI (90 mcg/ inh) CFC free inhalation aerosol) 1 puff(s) by inhalation Every 4 hours as needed for as needed for wheezing Unchanged atorvastatin (atorvastatin 20 mg oral tablet) 1 tab(s) by mouth Daily at bedtime Unchanged buPROPion (buPROPion 300 mg/ 24 hours (XL) oral tablet, extended release) 1 tab(s) by mouth Every 24 hours Unchanged calcium citrate (calcium (as calcium citrate) 250 mg oral tablet) 1 tab(s) by mouth Once a day (in the morning) Unchanged dulaglutide (Trulicity Pen 0.75 mg/ 0.5 mL subcutaneous solution) 0.75 Milligram Subcutaneous Every Thursday Unchanged esomeprazole (esomeprazole 40 mg oral delayed release capsule) 1 cap by mouth Two (2) times a day Unchanged famotidine (famotidine 20 mg oral tablet) 1 tab(s) by mouth Two (2) times a day as needed for Heartburn Unchanged FLUoxetine (FLUoxetine 20 mg oral capsule) 3 cap by mouth Once a day (in the morning) TAKE THREE (3) CAPSULES BY MOUTH EVERY DAY Unchanged glimepiride (glimepiride 2 mg oral tablet) 0.5 tab(s) by mouth Once a day (in the morning) TAKE TWO TABLETS BY MOUTH DAILY with breakfast Unchanged herbal/ nutritional product (turmeric 500 mg oral capsule) 4 cap by mouth Once a day (in the morning) Unchanged levothyroxine (levothyroxine 100 mcg (0.1 mg) oral tablet) 1 tab(s) by mouth Once a day Unchanged lisinopril (lisinopril 10 mg oral tablet) 1 tab(s) by mouth Daily at bedtime Unchanged Misc Medication (Apple cider) 450 Nanograms by mouth Once a day (in the morning) Unchanged multivitamin (Multiple Vitamins oral capsule) 1 cap by mouth Every day Bariatric formula Unchanged multivitamin (Neuriva Brain performance Plus) 2 tab by mouth Once a day Unchanged mupirocin topical (mupirocin 2% topical ointment) 1 application Topical Two (2) times a day Bilateral intranasal application twice daily for 5 days prior to surgery &/ or as many days leading up to surgery as possible due to surgical urgency/ scheduling. Send to patient's preferred pharmacy. Unchanged ondansetron (ondansetron 8 mg oral tablet) 1 tab(s) by mouth Every 8 hours as needed for Nausea/Vomiting Unchanged oxyCODONE (oxyCODONE 5 mg oral tablet ( IMMEDIATE release )) 1 tab(s) by mouth Every 6 hours as needed for as needed for pain take 1 tablet by mouth every 8 hours if needed for pain Unchanged traZODone (traZODone 100 mg oral tablet) 2 tab by mouth Daily at bedtime TAKE TWO TABLETS BY MOUTH EVERY DAY AT BEDTIME Pharmacy Information [facility]: [address] [place] [address] [phone] Please take this list to your next doctor s visit. Bring all medications you take, including over the counter medications, herbals and other supplements with you to your doctor s visit. Patients and families are reminded to discard old lists and to update any records with all medication providers or retail pharmacies. Education Materials [facility] SAME DAY SURGERY DISCHARGE INSTRUCTIONS PLEASE FOLLOW THE INSTRUCTIONS BELOW MARKED WITH AN X: __x_ Regular Diet: Start with clear liquids, then soup and crackers and gradually add other foods. __x_ Drink extra fluids. ___ Special Diet Instructions: ___ ACTIVITY: _x__ Avoid stress to suture line. Since you have had an anesthetic, it would be advisable not to drive, drink alcohol, or make major decisions over the next 24 hours. You may require more rest tonight and tomorrow. ___ May resume regular activity as tolerated. ___ Restrict activity as follows: ___ ___ Walk Only ___ ___ Do not go up and down stairs. ___ Do not ride in car until ___ ___ Do not drive car. ___ Do not have sexual intercourse. _x__ No heavy lifting, pushing or straining. _x__ Other: _Follow all of Dr. Egan's verbal and printed instrctions. __ BATHING/SHOWERING: ___ Sponge bathe until office visit. ___ Sitting in tub of warm water may relieve discomfort. ___ May tub bathe ___ May shower ___ On day after surgery sit in tub of warm water to soak off dressing. DRESSING: ___ Keep operative area dry and clean for ___ ___ Check the operative area for signs of bleeding. Apply pressure to the bleeding site if necessary and call your physician. ___ Change dressing as necessary using sterile dressing material or bandaid. ___ Reinforce dressing as necessary. ___ Change and care for wound as follows: ___ ___ Wear bra for ___ days following breast surgery for comfort. ___ Change drip pad as needed. ___ Wear scrotal support for comfort. WATCH FOR SIGNS OF INFECTION: (Usually appears 36-48 hours after surgery) Increased temperature (101 degrees Fahrenheit or higher) Redness or swelling Increased pain Foul odor or drainage. If you have any questions, please call your doctor at the number listed on your follow up instructions. Follow all instructions given to you by your physician. Please complete and return the survey you will be receiving in the mail to help us better serve our patients. Form: [id number] ([id number]) R: 06/29 Surgical Drain Home Care Surgical drains are used to remove extra fluid that normally builds up in a surgical wound after surgery. A surgical drain helps to heal a surgical wound. Different kinds of surgical drains include: Active drains. These drains use suction to pull drainage away from the surgical wound. Drainage flows through a tube to a container outside of the body. With these drains, you need to keep the bulb or the drainage container flat (compressed) at all times, except while you empty it. Flattening the bulb or container creates suction. Passive drains. These drains allow fluid to drain naturally, by gravity. Drainage flows through a tube to a bandage (dressing) or a container outside of the body. Passive drains do not need to be emptied. A drain is placed during surgery. Right after surgery, drainage is usually bright red and a little thicker than water. The drainage may gradually turn yellow or pink and become thinner. It is likely that your health care provider will remove the drain when the drainage stops or when the amount decreases to 1 2 Tbsp (15 30 mL) during a 24-hour period. Supplies needed: Tape. Germ-free cleaning solution (sterile saline). Cotton swabs. Split gauze drain sponge: 4 x 4 inches (10 x 10 cm). Gauze square: 4 x 4 inches (10 x 10 cm). How to care for your surgical drain Care for your drain as told by your health care provider. This is important to help prevent infection. If your drain is placed at your back, or any other tyof-sa-ybrnq area, ask another person to assist you in performing the following tasks: General care Keep the skin around the drain dry and covered with a dressing at all times. Check your drain area every day for signs of infection. Check for: ? Redness, swelling, or pain. ? Pus or a bad smell. ? Cloudy drainage. ? Tenderness or pressure at the drain exit site. Changing the dressing Follow instructions from your health care provider about how to change your dressing. Change your dressing at least once a day. Change it more often if needed to keep the dressing dry. Make sure you: 1. Gather your supplies. 2. Wash your hands with soap and water before you change your dressing. If soap and water are not available, use hand squad boss. 3. Remove the old dressing. Avoid using scissors to do that. 4. Wash your hands with soap and water again after removing the old dressing. 5. Use sterile saline to clean your skin around the drain. You may need to use a cotton swab to clean the skin. 6. Place the tube through the slit in a drain sponge. Place the drain sponge so that it covers your wound. 7. Place the gauze square or another drain sponge on top of the drain sponge that is on the wound. Make sure the tube is between those layers. 8. Tape the dressing to your skin. 9. Tape the drainage tube to your skin 1 2 inches (2.5 5 cm) below the place where the tube enters your body. Taping keeps the tube from pulling on any stitches (sutures) that you have. 10. Wash your hands with soap and water. 11. Write down the color of your drainage and how often you change your dressing. How to empty your active drain 1. Make sure that you have a measuring cup that you can empty your drainage into. 2. Wash your hands with soap and water. If soap and water are not available, use hand squad boss. 3. Loosen any pins or clips that hold the tube in place. 4. If your health care provider tells you to strip the tube to prevent clots and tube blockages: Hold the tube at the skin with one hand. Use your other hand to pinch the tubing with your thumb and first finger. Gently move your fingers down the tube while squeezing very lightly. This clears any drainage, clots, or tissue from the tube. You may need to do this several times each day to keep the tube clear. Do not pull on the tube. 5. Open the bulb cap or the drain plug. Do not touch the inside of the cap or the bottom of the plug. 6. Turn the device upside down and gently squeeze. 7. Empty all of the drainage into the measuring cup. 8. Compress the bulb or the container and replace the cap or the plug. To compress the bulb or the container, squeeze it firmly in the middle while you close the cap or plug the container. 9. Write down the amount of drainage that you have in each 24-hour period. If you have less than 2 Tbsp (30 mL) of drainage during 24 hours, contact your health care provider. 10. Flush the drainage down the toilet. 11. Wash your hands with soap and water. Contact a health care provider if: You have redness, swelling, or pain around your drain area. You have pus or a bad smell coming from your drain area. You have a fever or chills. The skin around your drain is warm to the touch. The amount of drainage that you have is increasing instead of decreasing. You have drainage that is cloudy. There is a sudden stop or a sudden decrease in the amount of drainage that you have. Your drain tube falls out. Your active drain does not stay compressed after you empty it. Summary Surgical drains are used to remove extra fluid that normally builds up in a surgical wound after surgery. Different kinds of surgical drains include active drains and passive drains. Active drains use suction to pull drainage away from the surgical wound, and passive drains allow fluid to drain naturally. It is important to care for your drain to prevent infection. If your drain is placed at your back, or any other iwdf-se-wptpf area, ask another person to assist you. Contact your health care provider if you have redness, swelling, or pain around your drain area. This information is not intended to replace advice given to you by your health care provider. Make sure you discuss any questions you have with your health care provider. Document Released: 03/06/2001 Document Revised: 04/13/2019 Document Reviewed: 04/13/2019 [employer] Patient Education 2020 [employer] Panniculectomy, Care After This sheet gives you information about how to care for yourself after your procedure. Your health care provider may also give you more specific instructions. If you have problems or questions, contact your health care provider. What can I expect after the procedure? After the procedure, it is common for you to have: Pain, swelling, and bruising around your incisions. Some drainage of fluid or blood from your incisions. Scarring. Follow these instructions at home: Incision care Follow instructions from your health care provider about how to take care of your incisions. Make sure you: ? Wash your hands with soap and water before you change your bandage (dressing). If soap and water are not available, use hand squad boss. ? Change your dressing as told by your health care provider. ? Leave stitches (sutures), skin glue, or adhesive strips in place. These skin closures may need to stay in place for 2 weeks or longer. If adhesive strip edges start to loosen and curl up, you may trim the loose edges. Do not remove adhesive strips completely unless your health care provider tells you to do that. Check your incision areas every day for signs of infection. Check for: ? More redness, swelling, or pain. ? More fluid or blood. ? Warmth. ? Pus or a bad smell. Medicines Take wkpc-ilq-nntptxh and prescription medicines only as told by your health care provider. If you were prescribed antibiotic medicine, take your antibiotic as told by your health care provider. Do not stop taking the antibiotic even if you start to feel better. Driving Do not drive for 24 hours if you were given a medicine to help you relax (sedative). Do not drive or use heavy machinery while taking prescription pain medicine. Activity Do not lift anything that is heavier than 10 lb (4.5 kg), or the limit that your health care provider tells you, until he or she says that it is safe. Avoid activity that requires a lot of energy, such as exercise or sports, for at least 6 weeks or as told by your health care provider. Ask your health care provider what activities are safe for you. Avoid sexual activity until your health care provider says it is safe. Lifestyle Do not use any products that contain nicotine or tobacco, such as cigarettes and e-cigarettes. If you need help quitting, ask your health care provider. Avoid drinking alcohol. General instructions Follow instructions from your health care provider about how to take care of your drainage tubes. Do not remove your drainage tubes unless told by your health care provider. To prevent or treat constipation while you are taking prescription pain medicine, your health care provider may recommend that you: ? Drink enough fluid to keep your urine clear or pale yellow. ? Take rlxl-yhk-vqcnhfj or prescription medicines. ? Eat foods that are high in fiber, such as fresh fruits and vegetables, whole grains, and beans. ? Limit foods that are high in fat and processed sugars, such as fried and sweet foods. Do not take baths, shower, swim, or use a hot tub until your health care provider approves. You mayneed to take sponge baths. If you were given an abdominal binder or girdle, wear it at all times, except when bathing. This includes when you are sleeping. Wear your abdominal binder or girdle for as long as told by your health care provider. Keep all follow-up visits as told by your health care provider. This is important. Contact a health care provider if: You have more fluid or blood coming from an incision than normal. An incision feels warm to the touch. You have a fever. You have severe pain, and medicines do not help. Get help right away if: You have pus or a bad smell coming from an incision. You have more redness, swelling, or pain around an incision. An incision starts to break open. You have chest pain. You have problems with breathing. Summary After the panniculectomy, it is common for you to have pain, swelling, and bruising. Check your incision areas every day for signs of infection. Do not remove your drainage tubes unless told by your health care provider. This information is not intended to replace advice given to you by your health care provider. Make sure you discuss any questions you have with your health care provider. Document Released: 05/01/2017 Document Revised: 06/30/2019 Document Reviewed: 05/01/2017 Elsevier Patient Education 2020 [employer] Additional Information VACCINATE! IT SAVES LIVES! Members of the community who have not yet received the COVID-19 vaccine and would like to receive it can visit one of [facility] vaccine clinics. There are many vaccine clinic locations within the [facility]. For locations and available times, please visit https://gettheshot.coronavirus.[place].gov/. It is important to note that some COVID mobile vaccine clinics are held outdoors and may be canceled in rainy or stormy conditions. To learn more about pediatric vaccinations (ages 5-11), we invite you to visit the [facility] webpage. https://www.[email or web address].org/pages/[email or web address]-Oipif-Tyxayjanwgu-Ofcvlwcwwy-Jdzca-Yyp stions.htmlTo learn more about the COVID-19 vaccine, we invite you to visit the CDC website for a list of frequently asked questions.https://www.cdc.gov/coronavirus/2019-ncov/vaccines/faq.html [employer] Patient Portal Access Instructions: Stay connected with your healthcare team and access your personal medical information anytime with the [employer] Patient Portal. Please follow the directions below to create your [employer] account: 1.Access the email account you provided upon registration to the hospital/physician office.2.Look for an invitation email from [facility].3.Open the email and access the invitation link: AcceptInvitation to [employer].4.Fill in the required carlton to create your account. To access your account, visit [employer]. Click the blue button labeled Access Patient Portal and then log in with the username and password that you created in the steps above. You will be able to view your test results, lab results, a summary of your visits, upcoming appointments and more. There is also a convenient messaging option where you can send secure messages to your p rovider. In addition, you will have the ability to download any documents or summaries to your computer and/or send the information securely to a physician. Remember that your healthcare information is confidential, so carefully consider who you will allowto register on the [facility] Patient Portal for access to your information. You can also access [facility] on the [facility] manjinder. Simply click on Patient Portal and then log into your account. If you would like to receive a full copy of your medical records, please contact the [facility] Medical Records Department by calling [phone], Thursday through Thursday between 8 a.m. and 4:30 p.m. HOW TO SAFELY DISPOSE OF PRESCRIPTION MEDICATIONS Please use one of the following methods to safely dispose of your unused medications. 1.Use a drug disposal kit: the drug disposal pouch allows you to safely discard your old and unuseddrugs. Ask your nurse to give you one when you are discharged.2.Visit a local take-back location: Many local pharmacies and police departments have programs that collect old and unwanted prescriptiondrugs. Call your local pharmacy or go to http://[employer].NVELO/9S3Ph0v to find one close to you.3.Make use of household items: Use cat litter or old coffee grounds to dispose medications if other options arenot available. Mix your drugs with these household products, seal them in an airtight container andthrow it into the garbage. Call [facility]: [phone] to be sure your drugs can be disposed of in this way. Some medicines may require a different approach.4.Never flush your medications down the toilet. IF YOU HAVE BEEN PRESCRIBED AN OPIOID FOR PAIN If you have been prescribed an opioid (such as hydrocodone, oxycodone or morphine), it is critical to understand the possible side effects and risks of opioid pain medications. Even when taken as directed, opioids can have several side effects including: Tolerance, meaning you might need to take more of a medication for the same pain relief. Nausea, vomiting and/or constipation. Sleepiness, dizziness, dry mouth, confusion, depression or itching. Physical dependence, meaning you have withdrawal symptoms when a medication is stopped, can develop within a few days. KNOW YOUR RESPONSIBILITIES It is important to know exactly how much and how often to take the opioid pain medications you are prescribed. Never take opioids in higher amounts or more often than prescribed. Do not combine opioids with alcohol or other drugs that cause drowsiness, such as benzodiazepines, also known as benzos, including diazepam and alprazolam, muscle relaxants or sleep aids. Never sell or share prescription opioids. This is illegal. Store opioids in a secure place and out of reach of others (including children, family, friends and visitors). The last page of this document has been signed and retained as a CHART COPY. Signatures Patient Education Materials 1-SDS Discharge Instructions Template (12/2017) (CUSTOM) [facility] Panniculectomy, Care After Medication Leaflets My discharge plan and instructions have been reviewed and explained to me and I,MARY JANE DE PAZ understand my current condition and have read and understand these discharge instructions. I have received a written copy of the plan/instructions. If I have questions, I am aware that I should contact my doctor. 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 Anesthesiology Consult note Patient: MARY JANE DE PAZ Age: 72 years Sex: Female : 1950 Associated Diagnoses: None Author: ABHISHEK HARRINGTON MD Postoperative Information Patient has been doing well in the PACU. They have been hemodynamically stable, oxygenating well, the pain and nausea are under control. Patients hydration status appears to be adequate and at baseline. Given the patient's stability, I feel they are appropriately recovered from anesthesia and in a stable condition to be discharged from PACU. This is a late entry documentation due to involvement patient care and inability to document prior to discharge from PACU. Patient was evaluated prior to discharge, and the note followed. Assessment Postanesthesia assessment Vitals: Vital signs from flowsheet : Vital Signs 11/26/2022 15:23 EDT Heart Rate Monitored 76 bpm Respiratory Rate 20 br/min Systolic Blood Pressure Non-Invasive 124 mmHg Diastolic Blood Pressure Non-Invasive 79 mmHg Mean Arterial Pressure (NBP) 95 mmHg 11/26/2022 15:08 EDT Temperature Temporal Artery 36.1 DegC Heart Rate Monitored 70 bpm Respiratory Rate 20 br/min Systolic Blood Pressure Non-Invasive 142 mmHg HI Diastolic Blood Pressure Non-Invasive 65 mmHg Mean Arterial Pressure (NBP) 88 mmHg 11/26/2022 14:53 EDT Heart Rate Monitored 69 bpm Respiratory Rate 20 br/min Systolic Blood Pressure Non-Invasive 151 mmHg HI Diastolic Blood Pressure Non-Invasive 60 mmHg Mean Arterial Pressure (NBP) 88 mmHg 11/26/2022 14:39 EDT Heart Rate Monitored 69 bpm Respiratory Rate 18 br/min Systolic Blood Pressure Non-Invasive 159 mmHg HI Diastolic Blood Pressure Non-Invasive 66 mmHg Mean Arterial Pressure (NBP) 93 mmHg 11/26/2022 14:23 EDT Heart Rate Monitored 75 bpm Respiratory Rate 16 br/min Systolic Blood Pressure Non-Invasive 149 mmHg HI Diastolic Blood Pressure Non-Invasive 86 mmHg Mean Arterial Pressure (NBP) 105 mmHg 11/26/2022 14:08 EDT Temperature Temporal Artery 35.7 DegC Heart Rate Monitored 80 bpm Respiratory Rate 16 br/min Systolic Blood Pressure Non-Invasive 152 mmHg HI Diastolic Blood Pressure Non-Invasive 75 mmHg Mean Arterial Pressure (NBP) 94 mmHg 11/26/2022 14:05 EDT Respiratory Rate - Anes 0 br/min br/min 11/26/2022 14:00 EDT Respiratory Rate - Anes 0 br/min br/min 11/26/2022 13:58 EDT Systolic Blood Pressure Non-Invasive 183 mmHg mmHg Diastolic Blood Pressure Non-Invasive 88 mmHg mmHg 11/26/2022 13:55 EDT Heart Rate Monitored 71 bpm bpm Respiratory Rate - Anes 9 br/min br/min Systolic Blood Pressure Non-Invasive 171 mmHg mmHg Diastolic Blood Pressure Non-Invasive 94 mmHg mmHg 11/26/2022 13:50 EDT Heart Rate Monitored 72 bpm bpm Respiratory Rate - Anes 8 br/min br/min Systolic Blood Pressure Non-Invasive 171 mmHg mmHg Diastolic Blood Pressure Non-Invasive 94 mmHg mmHg 11/26/2022 13:46 EDT Systolic Blood Pressure Non-Invasive 132 mmHg mmHg Diastolic Blood Pressure Non-Invasive 66 mmHg mmHg 11/26/2022 13:45 EDT Temperature (Route Not Specified) 35.14 DegC DegC Heart Rate Monitored 64 bpm bpm Respiratory Rate - Anes 10 br/min br/min Systolic Blood Pressure Non-Invasive 155 mmHg mmHg Diastolic Blood Pressure Non-Invasive 68 mmHg mmHg 11/26/2022 13:43 EDT Systolic Blood Pressure Non-Invasive 146 mmHg mmHg Diastolic Blood Pressure Non-Invasive 67 mmHg mmHg 11/26/2022 13:40 EDT Temperature (Route Not Specified) 35.2 DegC DegC Heart Rate Monitored 65 bpm bpm Respiratory Rate - Anes 10 br/min br/min Systolic Blood Pressure Non-Invasive 139 mmHg mmHg Diastolic Blood Pressure Non-Invasive 65 mmHg mmHg 11/26/2022 13:37 EDT Systolic Blood Pressure Non-Invasive 148 mmHg mmHg Diastolic Blood Pressure Non-Invasive 69 mmHg mmHg 11/26/2022 13:35 EDT Temperature (Route Not Specified) 35.15 DegC DegC Heart Rate Monitored 67 bpm bpm Respiratory Rate - Anes 10 br/min br/min 11/26/2022 13:33 EDT Systolic Blood Pressure Non-Invasive 136 mmHg mmHg Diastolic Blood Pressure Non-Invasive 67 mmHg mmHg 11/26/2022 13:31 EDT Systolic Blood Pressure Non-Invasive 129 mmHg mmHg Diastolic Blood Pressure Non-Invasive 64 mmHg mmHg 11/26/2022 13:30 EDT Temperature (Route Not Specified) 35.16 DegC DegC Heart Rate Monitored 66 bpm bpm Respiratory Rate - Anes 8 br/min br/min 11/26/2022 13:28 EDT Systolic Blood Pressure Non-Invasive 141 mmHg mmHg Diastolic Blood Pressure Non-Invasive 62 mmHg mmHg 11/26/2022 13:25 EDT Temperature (Route Not Specified) 35.15 DegC DegC Heart Rate Monitored 67 bpm bpm Respiratory Rate - Anes 8 br/min br/min 11/26/2022 13:24 EDT Systolic Blood Pressure Non-Invasive 136 mmHg mmHg Diastolic Blood Pressure Non-Invasive 66 mmHg mmHg 11/26/2022 13:22 EDT Systolic Blood Pressure Non-Invasive 140 mmHg mmHg Diastolic Blood Pressure Non-Invasive 70 mmHg mmHg 11/26/2022 13:20 EDT Temperature (Route Not Specified) 35.13 DegC DegC Heart Rate Monitored 65 bpm bpm Respiratory Rate - Anes 8 br/min br/min 11/26/2022 13:19 EDT Systolic Blood Pressure Non-Invasive 156 mmHg mmHg Diastolic Blood Pressure Non-Invasive 80 mmHg mmHg 11/26/2022 13:16 EDT Systolic Blood Pressure Non-Invasive 146 mmHg mmHg Diastolic Blood Pressure Non-Invasive 64 mmHg mmHg 11/26/2022 13:15 EDT Temperature (Route Not Specified) 35.17 DegC DegC Heart Rate Monitored 65 bpm bpm Respiratory Rate - Anes 8 br/min br/min 11/26/2022 13:12 EDT Systolic Blood Pressure Non-Invasive 149 mmHg mmHg Diastolic Blood Pressure Non-Invasive 74 mmHg mmHg 11/26/2022 13:10 EDT Temperature (Route Not Specified) 35.19 DegC DegC Heart Rate Monitored 69 bpm bpm Respiratory Rate - Anes 10 br/min br/min 11/26/2022 13:09 EDT Systolic Blood Pressure Non-Invasive 134 mmHg mmHg Diastolic Blood Pressure Non-Invasive 68 mmHg mmHg 11/26/2022 13:07 EDT Systolic Blood Pressure Non-Invasive 130 mmHg mmHg Diastolic Blood Pressure Non-Invasive 67 mmHg mmHg 11/26/2022 13:05 EDT Temperature (Route Not Specified) 35.23 DegC DegC Heart Rate Monitored 66 bpm bpm Respiratory Rate - Anes 10 br/min br/min 11/26/2022 13:03 EDT Systolic Blood Pressure Non-Invasive 125 mmHg mmHg Diastolic Blood Pressure Non-Invasive 67 mmHg mmHg 11/26/2022 13:00 EDT Temperature (Route Not Specified) 35.32 DegC DegC Heart Rate Monitored 69 bpm bpm Respiratory Rate - Anes 10 br/min br/min Systolic Blood Pressure Non-Invasive 125 mmHg mmHg Diastolic Blood Pressure Non-Invasive 71 mmHg mmHg 11/26/2022 12:57 EDT Systolic Blood Pressure Non-Invasive 125 mmHg mmHg Diastolic Blood Pressure Non-Invasive 70 mmHg mmHg 11/26/2022 12:55 EDT Temperature (Route Not Specified) 35.44 DegC DegC Heart Rate Monitored 68 bpm bpm Respiratory Rate - Anes 14 br/min br/min Systolic Blood Pressure Non-Invasive 124 mmHg mmHg Diastolic Blood Pressure Non-Invasive 70 mmHg mmHg 11/26/2022 12:51 EDT Systolic Blood Pressure Non-Invasive 150 mmHg mmHg Diastolic Blood Pressure Non-Invasive 82 mmHg mmHg 11/26/2022 12:50 EDT Temperature (Route Not Specified) 35.53 DegC DegC Heart Rate Monitored 68 bpm bpm Respiratory Rate - Anes 14 br/min br/min 11/26/2022 12:48 EDT Systolic Blood Pressure Non-Invasive 109 mmHg mmHg Diastolic Blood Pressure Non-Invasive 64 mmHg mmHg 11/26/2022 12:45 EDT Temperature (Route Not Specified) 35.6 DegC DegC Heart Rate Monitored 66 bpm bpm Respiratory Rate - Anes 14 br/min br/min Systolic Blood Pressure Non-Invasive 105 mmHg mmHg Diastolic Blood Pressure Non-Invasive 67 mmHg mmHg 11/26/2022 12:42 EDT Systolic Blood Pressure Non-Invasive 112 mmHg mmHg Diastolic Blood Pressure Non-Invasive 63 mmHg mmHg 11/26/2022 12:40 EDT Temperature (Route Not Specified) 35.64 DegC DegC Heart Rate Monitored 66 bpm bpm Respiratory Rate - Anes 14 br/min br/min 11/26/2022 12:39 EDT Systolic Blood Pressure Non-Invasive 132 mmHg mmHg Diastolic Blood Pressure Non-Invasive 71 mmHg mmHg 11/26/2022 12:37 EDT Systolic Blood Pressure Non-Invasive 152 mmHg mmHg Diastolic Blood Pressure Non-Invasive 74 mmHg mmHg 11/26/2022 12:35 EDT Temperature (Route Not Specified) 35.65 DegC DegC Heart Rate Monitored 74 bpm bpm Respiratory Rate - Anes 14 br/min br/min 11/26/2022 12:34 EDT Systolic Blood Pressure Non-Invasive 169 mmHg mmHg Diastolic Blood Pressure Non-Invasive 86 mmHg mmHg 11/26/2022 12:30 EDT Temperature (Route Not Specified) 35.7 DegC DegC Heart Rate Monitored 69 bpm bpm Respiratory Rate - Anes 14 br/min br/min Systolic Blood Pressure Non-Invasive 139 mmHg mmHg Diastolic Blood Pressure Non-Invasive 72 mmHg mmHg 11/26/2022 12:27 EDT Systolic Blood Pressure Non-Invasive 96 mmHg mmHg Diastolic Blood Pressure Non-Invasive 61 mmHg mmHg 11/26/2022 12:25 EDT Temperature (Route Not Specified) 35.75 DegC DegC Heart Rate Monitored 67 bpm bpm Respiratory Rate - Anes 14 br/min br/min 11/26/2022 12:24 EDT Systolic Blood Pressure Non-Invasive 93 mmHg mmHg Diastolic Blood Pressure Non-Invasive 62 mmHg mmHg 11/26/2022 12:21 EDT Systolic Blood Pressure Non-Invasive 96 mmHg mmHg Diastolic Blood Pressure Non-Invasive 60 mmHg mmHg 11/26/2022 12:20 EDT Temperature (Route Not Specified) 35.82 DegC DegC Heart Rate Monitored 64 bpm bpm Respiratory Rate - Anes 14 br/min br/min 11/26/2022 12:18 EDT Systolic Blood Pressure Non-Invasive 115 mmHg mmHg Diastolic Blood Pressure Non-Invasive 64 mmHg mmHg 11/26/2022 12:15 EDT Temperature (Route Not Specified) 35.85 DegC DegC Heart Rate Monitored 65 bpm bpm Respiratory Rate - Anes 14 br/min br/min Systolic Blood Pressure Non-Invasive 114 mmHg mmHg Diastolic Blood Pressure Non-Invasive 68 mmHg mmHg 11/26/2022 12:12 EDT Systolic Blood Pressure Non-Invasive 134 mmHg mmHg Diastolic Blood Pressure Non-Invasive 72 mmHg mmHg 11/26/2022 12:10 EDT Temperature (Route Not Specified) 35.88 DegC DegC Heart Rate Monitored 69 bpm bpm Respiratory Rate - Anes 14 br/min br/min 11/26/2022 12:09 EDT Systolic Blood Pressure Non-Invasive 139 mmHg mmHg Diastolic Blood Pressure Non-Invasive 76 mmHg mmHg 11/26/2022 12:06 EDT Systolic Blood Pressure Non-Invasive 131 mmHg mmHg Diastolic Blood Pressure Non-Invasive 72 mmHg mmHg 11/26/2022 12:05 EDT Temperature (Route Not Specified) 35.9 DegC DegC Heart Rate Monitored 66 bpm bpm Respiratory Rate - Anes 14 br/min br/min 11/26/2022 12:03 EDT Systolic Blood Pressure Non-Invasive 141 mmHg mmHg Diastolic Blood Pressure Non-Invasive 67 mmHg mmHg 11/26/2022 12:00 EDT Temperature (Route Not Specified) 36.02 DegC DegC Heart Rate Monitored 82 bpm bpm Respiratory Rate - Anes 14 br/min br/min Systolic Blood Pressure Non-Invasive 161 mmHg mmHg Diastolic Blood Pressure Non-Invasive 85 mmHg mmHg 11/26/2022 11:57 EDT Systolic Blood Pressure Non-Invasive 124 mmHg mmHg Diastolic Blood Pressure Non-Invasive 70 mmHg mmHg 11/26/2022 11:55 EDT Temperature (Route Not Specified) 36.06 DegC DegC Heart Rate Monitored 70 bpm bpm Respiratory Rate - Anes 14 br/min br/min 11/26/2022 11:54 EDT Systolic Blood Pressure Non-Invasive 148 mmHg mmHg Diastolic Blood Pressure Non-Invasive 75 mmHg mmHg 11/26/2022 11:51 EDT Systolic Blood Pressure Non-Invasive 140 mmHg mmHg Diastolic Blood Pressure Non-Invasive 88 mmHg mmHg 11/26/2022 11:50 EDT Temperature (Route Not Specified) 36.03 DegC DegC Heart Rate Monitored 65 bpm bpm Respiratory Rate - Anes 14 br/min br/min 11/26/2022 11:48 EDT Systolic Blood Pressure Non-Invasive 129 mmHg mmHg Diastolic Blood Pressure Non-Invasive 77 mmHg mmHg 11/26/2022 11:45 EDT Temperature (Route Not Specified) 36.15 DegC DegC Heart Rate Monitored 68 bpm bpm Respiratory Rate - Anes 14 br/min br/min Systolic Blood Pressure Non-Invasive 119 mmHg mmHg Diastolic Blood Pressure Non-Invasive 69 mmHg mmHg 11/26/2022 11:42 EDT Systolic Blood Pressure Non-Invasive 133 mmHg mmHg Diastolic Blood Pressure Non-Invasive 73 mmHg mmHg 11/26/2022 11:40 EDT Temperature (Route Not Specified) 36.19 DegC DegC Heart Rate Monitored 78 bpm bpm Respiratory Rate - Anes 10 br/min br/min 11/26/2022 11:39 EDT Systolic Blood Pressure Non-Invasive 152 mmHg mmHg Diastolic Blood Pressure Non-Invasive 84 mmHg mmHg 11/26/2022 11:36 EDT Systolic Blood Pressure Non-Invasive 138 mmHg mmHg Diastolic Blood Pressure Non-Invasive 82 mmHg mmHg 11/26/2022 11:35 EDT Temperature (Route Not Specified) 36.35 DegC DegC Heart Rate Monitored 83 bpm bpm Respiratory Rate - Anes 10 br/min br/min 11/26/2022 11:34 EDT Systolic Blood Pressure Non-Invasive 125 mmHg mmHg Diastolic Blood Pressure Non-Invasive 80 mmHg mmHg 11/26/2022 11:30 EDT Temperature (Route Not Specified) 36.22 DegC DegC Heart Rate Monitored 89 bpm bpm Respiratory Rate - Anes 10 br/min br/min Systolic Blood Pressure Non-Invasive 133 mmHg mmHg Diastolic Blood Pressure Non-Invasive 90 mmHg mmHg 11/26/2022 11:27 EDT Systolic Blood Pressure Non-Invasive 154 mmHg mmHg Diastolic Blood Pressure Non-Invasive 98 mmHg mmHg 11/26/2022 11:25 EDT Heart Rate Monitored 69 bpm bpm Respiratory Rate - Anes 14 br/min br/min 11/26/2022 11:24 EDT Systolic Blood Pressure Non-Invasive 113 mmHg mmHg Diastolic Blood Pressure Non-Invasive 71 mmHg mmHg 11/26/2022 11:21 EDT Systolic Blood Pressure Non-Invasive 140 mmHg mmHg Diastolic Blood Pressure Non-Invasive 51 mmHg mmHg 11/26/2022 11:20 EDT Heart Rate Monitored 66 bpm bpm Respiratory Rate - Anes 8 br/min br/min 11/26/2022 11:19 EDT Systolic Blood Pressure Non-Invasive 131 mmHg mmHg Diastolic Blood Pressure Non-Invasive 70 mmHg mmHg 11/26/2022 11:15 EDT Respiratory Rate - Anes 3 br/min br/min 11/26/2022 9:21 EDT Temperature Temporal Artery 36.2 DegC Peripheral Pulse Rate 77 bpm Respiratory Rate 16 br/min Systolic Blood Pressure Non-Invasive 105 mmHg Diastolic Blood Pressure Non-Invasive 66 mmHg . Digitally Signed by ABHISHEK HARRINGTON MD on 11/26/2022 03:[address] [id number] Discharge summary Date of Service 11/26/2022 Discharge Diagnosis Panniculus Hospital Course Patient here for panniculectomy with diastases recti repair, subsequent discharge same day Allergies Vicodin (Itching) Procedures Patient here for panniculectomy with diastases recti repair Consults No qualifying data available. Physical Exam Vitals and Measurements T: 35.14 C TMIN: 35.13 C TMAX: 36.35 C HR: 71(Monitored) RR: 16 BP: 183/88 SpO2: 100% HT: 157.5 cm WT: 64.1 kg Weight Dosing Weight: 64.1 kg (11/26/22) Code Status No qualifying data available. Admission Date 11/26/2022 Discharge Date 11/26/2022 Patient Instructions 1. No heavy lifting pushing or pulling, or strenuous activity. 2. Keep dressings clean dry and intact x24 hours. Keep compression garment on until seen in follow-up appointment. 3. In 24 hours, patient may remove garment as well as gauze, leave the Steri- Strips over the incision sites and okay to shower 24 hours after procedure. Pat dry and place compression garment back on. 4. Continue to milk drains 2-3X p/day and record drains until seen in follow up appt. 5. Call to schedule your follow-up appointment in 10 to 14 days for follow-up with either DERECK Dueñas or Dr. Egan. 6. You have been written for pain medication as well as antibiotic, please take as instructed. You may use ibuprofen, Aleve, Excedrin intermittently along with the pain medication. 7. DO NOT LIE FLAT. Only in reclining position. 8. Call if you have any other questions or concerns. Medications Unchanged acetaminophen (Tylenol Extra Strength 500 mg oral tablet)2 tab(s) by mouth every 6 hours as needed as needed for pain. albuterol (albuterol MDI (90 mcg/inh) CFC free inhalation aerosol)1 puff(s) by inhalation every 4 hours as needed as needed for wheezing. atorvastatin (atorvastatin 20 mg oral tablet)1 tab(s) by mouth daily at bedtime. buPROPion (buPROPion 300 mg/24 hours (XL) oral tablet, extended release)1 tab(s) by mouth every 24 hours. calcium citrate (calcium (as calcium citrate) 250 mg oral tablet)1 tab(s) by mouth once a day (in the morning). doxycycline (doxycycline hyclate 100 mg oral capsule)1 cap by mouth three (3) times a day. dulaglutide (Trulicity Pen 0.75 mg/0.5 mL subcutaneous solution)0.75 Milligram Subcutaneous every Thursday. esomeprazole (esomeprazole 40 mg oral delayed release capsule)1 cap by mouth two (2) times a day. famotidine (famotidine 20 mg oral tablet)1 tab(s) by mouth two (2) times a day as needed Heartburn. FLUoxetine (FLUoxetine 20 mg oral capsule)3 cap by mouth once a day (in the morning). TAKE THREE (3) CAPSULES BY MOUTH EVERY DAY. glimepiride (glimepiride 2 mg oral tablet)0.5 tab(s) by mouth once a day (in the morning). TAKE TWOTABLETS BY MOUTH DAILY with breakfast. herbal/nutritional product (turmeric 500 mg oral capsule)4 cap by mouth once a day (in the morning). levothyroxine (levothyroxine 100 mcg (0.1 mg) oral tablet)1 tab(s) by mouth once a day. lisinopril (lisinopril 10 mg oral tablet)1 tab(s) by mouth daily at bedtime. Misc Medication (Apple cider)450 Nanograms by mouth once a day (in the morning). multivitamin (Multiple Vitamins oral capsule)1 cap by mouth every day. Bariatric formula. multivitamin (Neuriva Brain performance Plus)2 tab by mouth once a day. mupirocin topical (mupirocin 2% topical ointment)1 application Topical two (2) times a day. Bilateral intranasal application twice daily for 5 days prior to surgery &/or as many days leading up to surgery as possible due to surgical urgency/scheduling. Send to patient's preferred pharmacy.. Refills: 0. ondansetron (ondansetron 8 mg oral tablet)1 tab(s) by mouth every 8 hours as needed Nausea/Vomiting. oxyCODONE (oxyCODONE 5 mg oral tablet ( IMMEDIATE release ))1 tab(s) by mouth every 6 hours as needed as needed for pain. take 1 tablet by mouth every 8 hours if needed for pain. traZODone (traZODone 100 mg oral tablet)2 tab by mouth daily at bedtime. TAKE TWO TABLETS BY MOUTH EVERY DAY AT BEDTIME. Follow Up Appointments No qualifying data available. Follow Up Labs/Studies Discharge Labs No Follow-up Labs Discharge Studies No Follow-up Studies Discharge Diet No qualifying data available. Discharge Activity No qualifying data available. Condition on Discharge Stable Discharge Disposition To home Digitally Signed by FOX DUEÑAS PA-C on 11/26/2022 02:10 PM Digitally Signed by FOX DUEÑAS PA-C on 11/26/2022 02:[address] [id number] Anesthesiology Consult note Patient: MARY JANE DE PAZ Age: 72 years Sex: Female : 1950 Associated Diagnoses: None Author: YURIY LEON DO Preoperative Information Time of last food or liquid consumption: 11/26/2022 00:00:00 Anesthesia history Patient's history: negative. Family's history: negative. History of Present Illness Please refer to most recent H and P / daily progress note / consultation note for further details gastric bypass (2019), hypertension, hypothyroidism, hyperlipidemia, oiz-azlfakz-evtnstlsf diabetesmellitus type 2, GERD (asymptomatic with medication), Anemia, anxiety, arthritis, asthma, CKD stageIII, depression, sphincter stimulator in place, diverticular disease, heart murmur, memory impairment, neuropathy, recurrent falls, sleep apnea (noncompliant with CPAP), and hypothyroidism pt states active at baseline >4mets Health Status Allergies: Allergic Reactions (Selected) Severity Not Documented Vicodin- Itching., Allergies (1) ActiveReaction VicodinItching Current medications: (Selected) Inpatient Medications Ordered Kefzol: 2 gram(s), 20 mL, 240 mL/hr, IV Push (INT), PREOP pharm LR 1,000 mL: 20 mL/hr, Intravenous, Stop: 11/26/22 22:59:00 EDT lidocaine 1% preservative-free injectable solution: 2.5 mg, 0.25 mL, Intradermal, prep pharm Prescriptions Prescribed mupirocin 2% topical ointment: 1 manjinder, Topical, BID, Bilateral intranasal application twice daily for 5 days prior to surgery &/or as many days leading up to surgery as possible due to surgical urgency/scheduling. Send to patient's preferred pharmacy., 22 gram(s), 0 Refill(s) Documented Medications Documented Apple cider: 450 ng, Oral, qAM, 0 Refill(s) FLUoxetine 20 mg oral capsule: 60 mg, 3 cap(s), Oral, qAM, TAKE THREE (3) CAPSULES BY MOUTH EVERY DAY Multiple Vitamins oral capsule: 1 cap(s), Oral, Daily, Bariatric formula, 0 Refill(s) Neuriva Brain performance Plus: 2 tab, Oral, qDay, 0 Refill(s) Trulicity Pen 0.75 mg/0.5 mL subcutaneous solution: 0.75 mg, Subcutaneous, Thursday, 0 Refill(s) Tylenol Extra Strength 500 mg oral tablet: 1,000 mg, 2 tab(s), Oral, q6hr, PRN: as needed for pain,0 Refill(s) albuterol MDI (90 mcg/inh) CFC free inhalation aerosol: 1 puff(s), Inhalation, q4h, PRN: as needed for wheezing, 18 gram(s), 0 Refill(s) atorvastatin 20 mg oral tablet: 20 mg, 1 tab(s), Oral, qHS, 0 Refill(s) buPROPion 300 mg/24 hours (XL) oral tablet, extended release: 300 mg, 1 tab(s), Oral, q24h, 0 Refill(s) calcium (as calcium citrate) 250 mg oral tablet: 250 mg, 1 tab(s), Oral, qAM, 60 tab(s), 0 Refill(s) doxycycline hyclate 100 mg oral capsule: 100 mg, 1 cap(s), Oral, TID, 0 Refill(s) esomeprazole 40 mg oral delayed release capsule: 40 mg, 1 cap(s), Oral, BID, 0 Refill(s) famotidine 20 mg oral tablet: 20 mg, 1 tab(s), Oral, BID, PRN: Heartburn, 0 Refill(s) glimepiride 2 mg oral tablet: 1 mg, 0.5 tab(s), Oral, qAM, TAKE TWO TABLETS BY MOUTH DAILY with breakfast levothyroxine 100 mcg (0.1 mg) oral tablet: 100 mcg, 1 tab(s), Oral, qDay, 30 tab(s), 0 Refill(s) lisinopril 10 mg oral tablet: 10 mg, 1 tab(s), Oral, qHS, 0 Refill(s) ondansetron 8 mg oral tablet: 8 mg, 1 tab(s), Oral, q8h, PRN: Nausea/Vomiting, 0 Refill(s) oxyCODONE 5 mg oral tablet ( IMMEDIATE release ): 5 mg, 1 tab(s), Oral, q6hr, take 1 tablet by mouth every 8 hours if needed for pain, PRN: as needed for pain, 0 Refill(s) traZODone 100 mg oral tablet: 2 tab, Oral, qHS, TAKE TWO TABLETS BY MOUTH EVERY DAY AT BEDTIME turmeric 500 mg oral capsule: 4 cap(s), Oral, qAM, 0 Refill(s), Medications (3) Active Scheduled: (2) ceFAZolin syringe 2 gram(s) 20 mL, IV Push (INT), PREOP pharm lidocaine 1% (MPF) 2 mL vial pf 2.5 mg 0.25 mL, Intradermal, prep pharm Continuous: (1) Lactated Ringers 1,000 mL 1,000 mL, Intravenous, 20 mL/hr PRN: (0) Problem list: Medical Diabetes mellitus / SNOMED CT 500982487 / Confirmed GERD - Gastro-esophageal reflux disease / SNOMED CT 0095577689 / Confirmed Hypertension / SNOMED CT 95219907 / Confirmed Thyroid / SNOMED CT 911665454 / Confirmed, Active Problems (21) Anal disorder Anemia Anxiety Arthritis Asthma CKD (chronic kidney disease) stage 3, GFR 30-59 ml/min Constipation Depression Diabetes mellitus Diverticulosis Falls frequently GERD - Gastro-esophageal reflux disease Glasses Hypercholesterolemia Hypertension Hypothyroidism Memory problem Murmur, cardiac Neuropathy Sleep apnea Thyroid Histories Past Medical History: No active or resolved past medical history items have been selected or recorded. Family History: Malignant tumor of pancreas Brother Thyroid cancer Sister Malignant tumor of kidney Brother Cancer Father Polio Mother Procedure history: Knee replacement ([id number]) in the month of 08/2022 at 72 Years. Hip replacement ([id number]) in the month of 06/2022 at 72 Years. Colonoscopy ([id number]) in 2022 at 72 Years. EGD (esophagogastroduodenoscopy) and closure of duodenal fistula ([id number]) in 2022 at 72 Years. Gastric bypass ([id number]) in 2019 at 68 Years. Total knee replacement ([id number]) in 2012 at 62 Years. Comments: 11/12/2022 14:18 Sonam Ta RN left ORIF - Open reduction and internal fixation of fracture ([id number]) in 2010 at 60 Years. Comments: 11/12/2022 14:19 Sonam Ta RN left Hysterectomy ([id number]) in 1989 at 39 Years. Finger ([id number]). Comments: 11/12/2022 14:20 Sonam Ta RN pins in first two fingers both hands Social History Social & Psychosocial Habits Alcohol 11/26/2022 Use: Current Type: Liquor Frequency: 1-2 times per month Substance Abuse 11/26/2022 Use: Never Tobacco 11/26/2022 Tobacco Use: Former smoker, quit more Started at age: 16 Years Stopped at age: 46 Years Home/Environment 11/26/2022 Domestic Concerns None Living situation: Home with assistance Lives In Single level home Current Home Treatments ice machine for knee Special Services and Community Resources None Marital Status of Patient if Patient Independent Adult: Nutrition/Health 11/26/2022 Type of diet: Regular Sexual 11/26/2022 Sexually active: Yes . Physical Examination Vital Signs 11/26/2022 9:21 EDT Temperature Temporal Artery 36.2 DegC Peripheral Pulse Rate 77 bpm Respiratory Rate 16 br/min Systolic Blood Pressure Non-Invasive 105 mmHg Diastolic Blood Pressure Non-Invasive 66 mmHg Vital Signs(last 24 hrs) Last Charted Resp Rate 16 br/min (NOV 26 09:21) TPN823 mmHg (NOV 26 09:21) DBP66 mmHg (NOV 26:) Measurements from flowsheet : Measurements 11/26/2022 9:21 EDT Height 157.5 cm Height in inches 62 inch(es) Admission Weight 64.1 kg Weight Lbs 141 lb Weight Method Actual [place] Body Weight 50.12 kg Admission Body Mass Index 25.84 m2 Pain assessment: Pain Assessment 11/26/2022 9:21 EDT Primary Pain Intensity 0 Pain Scale Type 0-10 Pain scale . General: Alert and oriented. Airway: Mallampati classification: I (soft palate, fauces, uvula, pillars visible). Dentition Evaluation: Own teeth, Denies loose/chipped teeth. Respiratory: Respirations are non-labored. Neurologic: Alert, Oriented. Review / Management Results review: No qualifying data available , Lab results 11/26/2022 9:25 EDT SN - Preop - CTm Pt Ready for OR/Proced 11/26/2022 9:25 11/26/2022 9:21 EDT Blood Glucose, Capillary 132 mg/dL HI Height 157.5 cm Height in inches 62 inch(es) Admission Weight 64.1 kg Weight Lbs 141 lb Weight Method Actual [place] Body Weight 50.12 kg Admission Body Mass Index 25.84 m2 Temperature Temporal Artery 36.2 DegC Peripheral Pulse Rate 77 bpm Respiratory Rate 16 br/min Systolic Blood Pressure Non-Invasive 105 mmHg Diastolic Blood Pressure Non-Invasive 66 mmHg Primary Pain Intensity 0 Pain Scale Type 0-10 Pain scale Nail Bed Color [place] Capillary Refill < 2 seconds Heart Rhythm Regular Dorsalis Pedis Pulse, Left 2+ Normal Dorsalis Pedis Pulse, Right 2+ Normal Respirations Unlabored Respiratory Pattern Regular Breath Sounds Auscultated Anterior only All Lobes Breath Sounds Clear Oxygen Therapy Room air Oxygen Saturation 97 % Abdomen Description Non-distended, Soft Abdomen Palpation Non-Tender Bowel Movement Last Date 11/25/2022 Bowel Sounds All Quadrants Present Urinary Elimination Voiding, no difficulties All Extremity Description [place] Skin Temperature Warm Temperature All Extremities Warm Skin Description Normal for ethnicity Skin Integrity Intact Mucous Membrane Color [place] Skin Moisture General Dry Neurological Symptoms Patient denies Extremity Movement Equal Characteristics of Speech Clear Level of Consciousness Alert HARRIETT Yes Strength All Extremities Strong Tone All Extremities Normal Sensation All Extremities Intact Affect/Behavior Appropriate, Calm, Cooperative Orientation Oriented x 4 Orientation Assessment Oriented x 4 Pt./Caregiver Remote Cont.Visual Monitor Verbalizes/Nonverbally indicates understanding Assistive Device None Activity Status ADL Awake Standard Safety ID band on, Allergy Band on, Call device within reach, Bed in low position, Wheels locked, Upper/Half-Length side-rails up, Phone within reach, personal items within reach 11/26/2022 9:20 EDT Antecubital Left 11/26/2022 20 gauge Peripheral IV Activity: Insert new site Peripheral IV Dressing Condition: Clean, Dry, Intact Peripheral IV Dressing Activity: Applied Peripheral IV Line Status/Patency: Continuous infusion Peripheral IV Site Condition: No complications Peripheral IV Equipment: Manual Peripheral IV Number of Attempts: 1 Individuals Taught Patient Learning Readiness Willing to learn Barriers to Learning None evident Teaching Method Explanation, Printed materials Preferred Spoken Language Icelandic Preferred Written Language Icelandic Disease Process General Education Signs/Symptoms of complications Discharge Planning Education Importance of follow up appt w/physician Pain Medication Education Pain scale Safety Measures Education Call light use 11/26/2022 9:18 EDT SN - Preop - CTm Pt in SDS Room 11/26/2022 9:18 11/26/2022 9:13 EDT Lactated Ringers Injection Begin Bag 1,000 mL mL 11/26/2022 9:08 EDT Designated Person #1 We May Share PHI [phone] Designated Person #1 Relationship Spouse Designated Person #2 We May Share PHI Addie [phone] Designated Person #2 Relationship Daughter Privacy Restrictions Requested None Status N/A Sensory Deficits None Diagnosed With Sleep Apnea Yes Advanced Directives Yes Advance Directive Type [facility] Power of Scoop Operator for [facility] [place] Declaration (Living Will) Advance Directive Location Unable to obtain copy Infectious Disease Symptoms Patient states no symptoms Infectious Disease Recent Exposure No Alcohol and Drug Use No Employee of Institutional Living No Health Care Employee No History of Exposure to TB No History of Positive Chest X-Ray for TB No History of Positive TB Skin Test No Homeless No Known Immunosuppression No Recent Immigrant No Resident of Institutional Living No Bloody Sputum No Fatigue No Fever No Loss of Appetite No Night Sweats No Persistent Cough > 3 Weeks No Weight Loss No Surgery Scheduled On Date/Time 11/26/2022 10:50 Patient Aware Date/Time Of Surgery Yes Arrival Time the Day of Surgery 11/26/2022 8:50 Patient Aware of Arrival Time Yes Pre-Op Patient Education NPO after midnight, No smoking after midnight, No makeup, No jewelry, Responsible Republican, Aware of surgery location, Pre-op education done, 2 bottles CHG wash with instructions given, Instructed to take ordered medications, Instructed to bring home medications, VTE prevention handout given, SSI prevention handout given, MRSA protocol education provided SN - Preprocedure Comments Spoke with patient, Verbalizes/Nonverbally indicates understanding Barriers to Learning Memory problems Teaching Method Electronic, Explanation, Printed materials, Teach-back, Video/Educational TV Preferred Spoken Language Icelandic Preferred Written Language Icelandic Teaching Evaluation Verbalizes/Nonverbally indicates understanding Safety Brochure Information Reviewed Yes [place] testbirds Video Viewed Yes Information Given by Patient Patient's Current Physicians Patient's Current Physicians Discharge To, Anticipated Home with family care Prev Test Positive/Diagnosis w/COVID-19 Yes Previous COVID-19 Positive Date 2020 Current Quarantine/Isolated any Illness No Any Contact with Sick Animals/Birds No Traveled Anywhere in Last 30 Days No Lost Weight Unintentionally Recently Yes, 2-13 lb weight loss Eat Poorly Due to Decreased Appetite No Total MST Score 1 N/A Personal Devices, Patient Valuables Glasses Anesthesia/Transfusions Prior anesthesia, Prior transfusion Admission Note-Nursing Same Day Patient History 11/25/2022 14:00 EDT Surgery Scheduled On Date/Time 11/26/2022 10:50 Patient Aware Date/Time Of Surgery Yes Arrival Time the Day of Surgery 11/26/2022 8:50 Patient Aware of Arrival Time Yes Pre-Op Patient Education NPO after midnight, No smoking after midnight, No makeup, No jewelry, Responsible Republican, Aware of surgery location, Pre-op education done, 2 bottles CHG wash with instructions given, Instructed to take ordered medications, Instructed to bring home medications, VTE prevention handout given, SSI prevention handout given, MRSA protocol education provided (Modified) SN - Preprocedure Comments Spoke with patient, Verbalizes/Nonverbally indicates understanding Admission Note-Nursing Patient History PreTest (Modified) . Assessment and Plan [place] [employer]esthesiologists (ASA) physical status classification: Class III. Anesthetic Preoperative Plan Premedication: intravenous. Anesthetic technique: General. Induction: intravenously. Maintenance airway: Oral endotracheal tube. Postoperative pain management: Per surgeon. Risks discussed: nausea, vomiting, headache, sore throat, dental injury, hypotension, allergic reaction, serious complications. Informed consent: signed by patient. Notes: Extensive time was spent discussing with the patient and/or POA the inherent risks of anesthesia including but not limited too sore throat, dental injuries to teeth and gums, corneal abrasions, risk of heart attack, stroke, end organ dysfunction, and . The patient and/or POA is aware ofthese risks, accepts them and wishes to proceed with anesthesia. gastric bypass (2019), hypertension, hypothyroidism, hyperlipidemia, tta-[id number]-[id number] diabetesmellitus type 2, GERD (asymptomatic with medication), Anemia, anxiety, arthritis, asthma, CKD stageIII, depression, sphincter stimulator in place, diverticular disease, heart murmur, memory impairment, neuropathy, recurrent falls, sleep apnea (noncompliant with CPAP), and hypothyroidism . Digitally Signed by YURIY LEON DO on 11/26/2022 10:[address] [id number] History of Present illness Narrative* Radha Jaramillo, BIZTALK CONSULTANT - 11/25/2022 1:19 PM EDT Episode Visit Count: 9 Therapist That Will Accept/Oversee The Plan Of Care: Erum copeland PT, DPT Start of Care Date: 10/08/22 Onset Date: 09/15/22 Plan of Care Certification Date: 11/05/22 Next Certification Due Date: 12/31/22 Patient Identified by Name and Date of : Yes REHABILITATION AND SPORTS THERAPY PHYSICAL THERAPY TREATMENT NOTE ASSESSMENT: Mary Jane De Paz tolerated the session with patient's blood sugar decreasing to 59while on shuttle so held on stepper and provided patient a snack of pretzels, peanut butter, and water to assist. Patient declined juice and BS increased to 60 prior to her leaving and she reported that she would be fine. She demonstrated good tolerance to exercises. Did not progress patient to resisted ambulation this date as she wore flip flop sandals to therapy. The patient will continue to benefit from ongoing skilled physical therapy to progress toward set goals although will be having surgery tomorrow for skin removal and is not sure how long she will have restrictions. PLAN FOR NEXT VISIT: Progress as allowed after surgery SUBJECTIVE: Patient reported that she has pain with walking and she does not sleep well due to not being able to get comfortable. Pain: Pain Pain Level: 4 Pain Location: Knee - Right Description: Sharp, Burning Frequency: Walking Post Treatment Pain Post Treatment Pain Level: No Change OBJECTIVE MEASURES WITH LEVEL OF FUNCTION: TREATMENT: Therapeutic Exercise: 1: Quad set w/ towel at ankle 2 x 15 reps w/ 3 sec hold 2: SAQ 2 x 15 reps w/ 3 sec hold 3: Heel slides 2 x 15 reps w/ 3 sec hold 4: SLR 2 x 15 reps 5: IT Band Stretch 3x 15 seconds 6: Seated heel slides x 10 reps w/ 5 sec hold in flexion 7: Seated LAQ 2 x 15 reps 8: Seated resisted knee flexion 2 x 15 reps w/ orange band 9: Shuttle w/ wedge bilateral 25# 2 x 15 reps 10: Shuttle w/ wedge right LE 12# 2 x 10 reps 11: Spirit stepper manual L1 x10 minutes (not billed) (Not performed this date due to low blood sugar) Skilled Intervention: Patient was educated in proper exercise technique and purpose for exercises. Skilled judgment was provided in selection of appropriate interventions. Therapeutic Activity: 1: Forward step through 6 2 x 15 reps 2: Reciprocating steps x 5 reps Skilled Intervention: Proper patient guarding to prevent falls/increase patient safety with supervision to assist patient while performing steps Billing Therapeutic Exercise Treatment Minutes: 45 Therapeutic Activity Treatment Minutes: 5 Skilled Treatment Time Minutes (timed and untimed codes): 50 Total Session Time (minutes): 62 Session Start Time : 1315 Session Stop Time : 1417 Cold pack applied to right knee with patient in supine with right LE elevated on lengthwise pillow for 10 minutes at the end of the session. Cold pack time not included in billed treatment time. Radha Jaramillo PTA documented in this encounterK[facility]23 History of Present illness Narrative* Radha Jaramillo PTA - 11/21/2022 1:19 PM EDT Episode Visit Count: 8 Therapist That Will Accept/Oversee The Plan Of Care: Erum copeland PT, DPT Start of Care Date: 10/08/22 Onset Date: 09/15/22 Plan of Care Certification Date: 11/05/22 Next Certification Due Date: 12/31/22 Patient Identified by Name and Date of : Yes REHABILITATION AND SPORTS THERAPY PHYSICAL THERAPY TREATMENT NOTE ASSESSMENT: Mary Jane De Paz tolerated the session with patient reporting pain at times throughout treatment especially with deep bending on shuttle. Patient ambulating with stiff leg requiring cues for correcting. She demonstrated tolerance to addition of single leg shuttle this date. The patient will continue to benefit from ongoing skilled physical therapy to progress toward set goals. PLAN FOR NEXT VISIT: Add resisted ambulation as tolerated SUBJECTIVE: Patient reported that she has been having burning on her lateral knee and reported thatshe went into [employer] and barely made it to the door and was having increased burning. Pain: Pain Pain Level: 8 Pain Location: Knee - Right Description: Burning Post Treatment Pain Post Treatment Pain Level: 6 OBJECTIVE MEASURES WITH LEVEL OF FUNCTION: TREATMENT: Therapeutic Exercise: 1: Quad set w/ towel at ankle 2 x 15 reps w/ 3 sec hold 2: SAQ 2 x 15 reps w/ 3 sec hold 3: Heel slides 2 x 15 reps w/ 3 sec hold 4: SLR 2 x 15 reps 5: IT Band Stretch 3x 15 seconds 6: Seated heel slides x 10 reps w/ 5 sec hold in flexion 7: Seated LAQ 2 x 15 reps 8: Seated resisted knee flexion 2 x 15 reps w/ orange band 9: Shuttle w/ wedge bilateral 25# 2 x 15 reps 10: Shuttle w/ wedge right LE 12# 2 x 10 reps 11: Spirit stepper manual L1 x10 minutes (not billed) Skilled Intervention: Patient was educated in proper exercise technique and purpose for exercises. Skilled judgment was provided in selection of appropriate interventions. Therapeutic Activity: 1: Forward step through 6 2 x 15 reps (Added step through) 2: Reciprocating steps x 4 reps Skilled Intervention: Proper patient guarding to prevent falls/increase patient safety with stand by assist to assist patient while performing steps Billing Therapeutic Exercise Treatment Minutes: 45 Therapeutic Activity Treatment Minutes: 5 Skilled Treatment Time Minutes (timed and untimed codes): 50 Total Session Time (minutes): 64 Session Start Time : 1315 Session Stop Time : 1419 Time spent on recumbent stepper not included in billed treatment time. Cold pack applied to right knee with patient in supine with right LE elevated on lengthwise pillow for 10 minutes at the end of the session. Cold pack time not included in billed treatment time. Radha Jaramillo PTA documented in this encounterK[facility]08-30-2023 History of Present illness Narrative* Erum Copeland PT, DPT - 11/19/2022 3:13 PM EDT Episode Visit Count: 7 Therapist That Will Accept/Oversee The Plan Of Care: Erum copeland PT, DPT Start of Care Date: 10/08/22 Onset Date: 09/15/22 Plan of Care Certification Date: 11/05/22 Next Certification Due Date: 12/31/22 Patient Identified by Name and Date of : Yes REHABILITATION AND SPORTS THERAPY PHYSICAL THERAPY TREATMENT NOTE ASSESSMENT: Mary Jane De Paz tolerated the session with no issues. She demonstrated improvements in symptoms doing the exercises during today's session. The patient will continue to benefit fromongoing skilled physical therapy to progress toward set goals. PLAN FOR NEXT VISIT: Progress patient to do resisted ambulation SUBJECTIVE: Patient reported that she had an increase in pain yesterday Pain: Pain Pain Level: 6 Pain Location: Knee - Right Description: Aching, Sharp Post Treatment Pain Post Treatment Pain Level: 4 Post Treatment Pain Location: Knee - Right TREATMENT: Therapeutic Exercise: 1: Quad set w/ towel at ankle 2 x 15 reps w/ 3 sec hold 2: SAQ 2 x 15 reps w/ 3 sec hold 3: Heel slides 2 x 15 reps w/ 3 sec hold 4: SLR 2 x 15 reps 5: Seated LAQ 2 x 15 reps 6: Seated resisted knee flexion 2 x 15 reps w/ orange band 7: Seated heel slides x 10 reps w/ 5 sec hold in flexion 8: Shuttle w/ wedge bilateral 25# 2 x 15 reps 9: *IT Band Stretch 3x 15 seconds 10: Spirit stepper manual L1 x10 minutes (not billed) Skilled Intervention: Patient was educated in proper exercise technique and purpose for exercises. Skilled judgment was provided in selection of appropriate interventions. Provided written instruction for home exercise program to facilitate proper performance and compliance. Correct performance of therapeutic exercises was facilitated with verbal, visual, and tactile cuing. Therapeutic Activity: 1: Forward step ups 6 2 x 15 reps 2: Reciprocating steps x 4 reps Skilled Intervention: Educated on proper/safe technique for activities performed today. Home Exercise Program Assigned: 1: IT Band Stretch 3x 15 seconds Billing Therapeutic Exercise Treatment Minutes: 50 Therapeutic Activity Treatment Minutes: 10 Total Treatment Time Minutes (timed/untimed): 60 Session Start Time : 1400 Session Stop Time : 1526 Time spent on spirit stepper not included in billed treatment time. Cold pack applied to R knee with patient in supine for 10 minutes at the end of the session. Cold pack time not included in billed treatment time. Erum Copeland PT, DPT documented in this encounterK[facility]08-28-2023 History and physical note * Christine Morgan APRN.CD REACTOR OPERATOR - 11/17/2022 2:27 PM EDT HISTORY AND PHYSICAL EXAMINATION SUBJECTIVE 72 year old female is here for consult to determine preoperative surgical clearance requested by Dr. Egan for anticipated surgery: panniculectomy, scheduled for 11/26/22 at [place] [facility] [place]. Pt had hip surgery - June, Knee surgery - August,. Patient's history of surgical problem: no, other than lower blood pressure. Hx of previous anesthesia problems: No. Family hx of anesthesia problems: No. Current signs of infection: No. Chest pain/ hx Cardiac complications: No. Shortness of breath: just with some activity. Hx sleep apnea: hx of MARIBEL, but hasn't needed CPAP since bariatric surgery. Hx of clotting issues: No. Current bleeding or bruising tendencies: always has bruised easily. Hx GERD Yes. On anticoagulant medication: No. Should be noted that patient did call/message in last week with several complaints, however, not new complaint for her. She reports some issues with balance (denies dizziness). Stating sometimes she just missteps. She continues in physical therapy. She also has chronic tremors and was previously diagnosed with essential tremors by neurology. She denies any new/worsening complaints. We did also decrease glimepiride recently d/t some overnight low blood sugars, and she reports thathis improved her symptoms. HISTORIES FAMILY HISTORY Problem Relation Age of Onset other (polio) Mother Diabetes Father other (Squamous cell ca) Father other (renal cell ca) Father 1999 other (htn) Father other (Thyroid Cancer) Sister other (thyroid disease) Sister ca other (renal cell ca) Brother 2010 Obesity Paternal Grandmother Obesity Daughter Thyroid Daughter Diabetes Daughter Anesthesia Problems No Family History PAST MEDICAL HISTORY Diagnosis Date Allergic rhinitis Arthritis [facility], knee Asthma CKD (chronic kidney disease) 11/01/2018 Class 3 severe obesity with serious comorbidity and body mass index (BMI) of 40.0 to 44.9 in adult (HCC) 08/19/2018 Coronary artery disease 10/28/[address] Salazar Fracture of right hip ([facility]) GERD (gastroesophageal reflux disease) History of transfusion HTN (hypertension) Hypothyroidism Mixed hyperlipidemia NIDDM (non-insulin dependent 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) MARIBEL on CPAP CPAP 9Cm Osteoarthritis of hip Renal lesion 01/15/2015 Suggest renal US every 1-2 years per PCP or nephro. Snoring Type 2 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 with hyperglycemia, with long-term current use of insulin ([facility]) 1999 PAST SURGICAL HISTORY Procedure Laterality Date ABDOMINAL SURGERY HX COLONOSCOPY 11/05/2016 Tammi- divertiuclosis, internal hemorrhoids, repeat in 5 years COLONOSCOPY 04/02/2022 repeat in 5 years due to reported prior history of polyps COSMETIC ASSESSMENT EGD 11/05/2016 Tammi- gastritis EGD 09/08/2018 /Gastritis EGD 04/02/2020 EGD 04/02/2022 EYE SURGERY HX Bilateral cataract extraction 2009's GASTRECTOMY,PART DISTAL;W/GASTRODUODENOSTO GASTRIC BYPASS HX 12/13/2018 Laparoscopic Samina-en-Y gastric bypass HIP SURGERY HX Screws replaced JOINT REPLACEMENT HX OOPHORECTOMY PARTIAL OR TOTAL PAST SURGICAL HISTORY OF 2009 hemmroidectomy/sphincterectomy - Dr Nichole PAST SURGICAL HISTORY OF 2008 total left knee replacement PAST SURGICAL HISTORY OF 2003 partial right knee replacement PAST SURGICAL HISTORY OF 1990 total hysterectomy PAST SURGICAL HISTORY OF 2010 lDr Mansoor - [place] elbow fracture - traumatic. radial head replacement PAST SURGICAL HISTORY OF Bilateral 2016 hand surgery PAST SURGICAL HISTORY OF Left RELEASE CONTRACTURE DEQUERVAINS S INSERT PINN METAL NTRL HIP Right 11/17/2021 SKIN BIOPSY HX TOTAL HIP REPLACEMENT Right TOTAL KNEE REPLACEMENT Right 09/15/2022 TUBAL LIGATION HX VAGINAL HYSTERECTOMY Social History Tobacco Use Smoking status: Former Packs/day: 1.50 Years: 22.00 Additional pack years: 0.00 Total pack years: 33.00 Types: Cigarettes Quit date: 1989 Years since quittin.6 Smokeless tobacco: Never Vaping Use Vaping Use: Never used Substance Use Topics Alcohol use: Yes Comment: few times a year. mixed drinls/marcelino. 3 in sitting. 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 Hypertensive kidney disease with stage 3 chronic kidney disease (HCC) De Quervain's Tenosynovitis, Left Joint Stiffness of Hand, Left Metacarpophalangeal Joint Pain of Left Hand Finger Pain, Left Asthma Stage 3 Chronic Kidney Disease (Hcc) S/P Gastric Bypass Closed Displaced Fracture of Right Femoral Neck ([facility]) Hyponatremia Hip Fracture Requiring Operative Repair, Right, Closed, Initial Encounter ([facility]) Type 2 Diabetes Mellitus ([facility]) Renal Lesion History of Total Hip Replacement, Right History of Total Knee Replacement, Left Coronary Artery Disease Involving [place] Coronary Artery of [place] Heart Without Angina Pectoris Uti (Urinary Tract Infection) S/P Total Knee Arthroplasty, Right Stiffness of Right Knee Acute Pain of Right Knee Difficulty Walking Localized Edema Current Outpatient Medications Medication Sig Dispense Refill oxyCODONE IR (ROXICODONE) 5 mg immediate release tablet Take 1 tablet by mouth every 8 hours as needed for pain for up to 7 days. 21 tablet 0 methylPREDNISolone (MEDROL, KONRAD,) 4 mg Dose-Pack As Instructed per package 21 tablet 0 glimepiride (AMARYL) 2 mg tablet Take 0.5 tablets by mouth daily with breakfast. 90 tablet 1 famotidine (PEPCID) 20 mg tablet Take 1 tablet by mouth twice daily as needed (GERD). 180 tablet 1 ondansetron (ZOFRAN) 8 mg tablet Take 1 tablet by mouth every 8 hours as needed for nausea/vomiting. 20 tablet 1 acetaminophen (TYLENOL) 500 mg tablet Take 2 tablets by mouth every 8 hours as needed for pain. 90 tablet 0 ascorbic acid, vitamin C, (VITAMIN C) 500 mg tablet Take 1 tablet by mouth twice daily with meals for 28 doses. 28 tablet 0 aspirin, enteric coated (ASPIRIN, ENTERIC COATED) 81 mg EC tablet Take 1 tablet by mouth twice daily for 28 days. 56 tablet 0 Blood-Glucose Sensor (FREESTYLE JAUN 3 SENSOR) guido 1 Each as directed. 10 Each 3 FLUTICASONE PROPIONATE NASAL Inhale 1 Gay as instructed once daily as needed (allergies). coffee xt/phosphatidyl serine (NEURIVA ORIGINAL ORAL) Take 2 tablets by mouth once daily. lisinopril (ZESTRIL) 10 mg tablet Take 1 tablet by mouth once daily. 90 tablet 3 diclofenac (VOLTAREN) 1 % topical gel Apply 4 g to affected area four times daily. 500 g 0 levothyroxine (SYNTHROID) 100 mcg tablet Take 1 tablet by mouth once daily. 90 tablet 3 traZODone (DESYREL) 100 mg tablet Take 2 tablets by mouth daily at bedtime. 180 tablet 1 esomeprazole (NEXIUM) 40 mg capsule TAKE ONE CAPSULE BY MOUTH twice daily. 180 capsule 1 buPROPion XL (WELLBUTRIN XL) 300 mg 24 hr tablet Take 1 tablet by mouth once daily. 90 tablet 1 atorvastatin (LIPITOR) 20 mg tablet Take 1 tablet by mouth daily at bedtime. For cholesterol. 90 tablet 1 dulaglutide (TRULICITY) 0.75 mg/0.5 mL pen injector Inject 0.75 mg subcutaneously one time a week. Inject dose once per week. Discard Pen After 12 Each 3 FLUoxetine (PROZAC) 20 mg capsule Take 3 capsules by mouth once daily. 270 capsule 3 APPLE CIDER VINEGAR ORAL Take 1 capsule by mouth once daily. 450 mg capsule OTC NUTRITIONAL SUPPLEMENT Take 1 capsule by mouth once daily. Tumeric - 2000 mg capsule dicyclomine (BENTYL) 20 mg tablet Take 1 tablet by mouth before meals and at bedtime. 360 tablet 1 MULTI-VITAMIN ORAL Take 1 tablet by mouth once daily. Takes bariatric multivitamin daily No current facility-administered medications for this visit. Allergies: Vicodin [Hydrocodon* Itching Comment:Pt not sure if she has an allergy but states she wants it documented. REVIEW OF SYSTEMS: General: No weight loss, malaise or fevers. Neuro: Denies: No Hx of stroke or seizures Respiratory: No history of current cough or dyspnea, or pneumonia in the past 6 weeks. No history of respiratory/pulmonary symptoms or problems. Hx of MARIBEL, but hasn't needed cpap since bariatric surgery. Cardiovascular: no Hx of MD, DVT/PE, CHF, arrhythmia. Hx of HTN and hyperlipidemia. GI: + GERD. Rare ETOH use. : No history of UTI in past 6 weeks. No history of renal failure. Not currently on or requiring dialysis. No history of symptoms or problems. 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 : Denies Endocrine: diabetes -- on oral and trulicity. On steroids 1 month ago. Hematology: No history of bleeding or clotting disorder. Pt is not taking anti- coagulation or platelet medications. No history of hematological symptoms or problems. Oncology: No history of CA metastasis, chemo within 30 days, or radiotherapy within 90 days. Has not lost 10% of body wt in 6 months. No history of oncological symptoms or problems. Psych: controlled anxiety. Musculoskeletal: some right knee pain. Skin: Negative for lesions, rash and itching. PHYSICAL EXAM: VITALS: BP 129/84 Pulse 85 Resp 16 Wt 65.3 kg (144 lb) SpO2 95% BMI 26.34 kg/m General Appearance: Well appearing, alert, in no acute distress, well-hydrated, well nourished.. Skin: Skin color, texture, turgor normal, no suspicious rashes or lesions. Head: Normocephalic, no masses, lesions, tenderness or abnormalities. Eyes: Anicteric sclera. Pupils are equally round and reactive to light. Extraocular movements are intact. . Ears: External ears normal, canals clear. Oropharynx: Lips, mucosa, and tongue normal, teeth and gums normal, oropharynx normal. Neck: Supple, no adenopathy; thyroid symmetric, normal size, no bruits. Lungs: Lungs clear to auscultation. No wheezing, rhonchi, rales.. Heart: RRR without murmur, gallop, or rubs. No ectopy. Abdomen: Abdomen soft, non-tender. Bowel sounds normal. No masses, organomegaly. Extremities: No deformities, edema, skin discoloration, clubbing or cyanosis. Good capillary refill. . Neurologic: Gait normal. Diagnostic tests reviewed for today's visit: Most recent labs Most recent EKG: normal sinus rhythm, normal axis, normal intervals, reviewed by myself. Clinical Risk Factors for Possible Cardiac Complications: None Patient is scheduled for a intermediate-risk procedure. FUNCTIONAL STATUS: Climb a flight of stairs or walk up a hill (5.50 METs) Functional Class (NYHA): II VAZQUEZ CARDIAC RISK CALCULATOR - 0.2 ASSESSMENT/PLAN: 1. Preoperative clearance - ICD9: V72.84, ICD10: Z01.818 (primary diagnosis) Pt has already had pre-admission testing complete. Diabetes - Well controlled Hold trulicity for 1 week prior to surgery. HTN - Well controlled Hyperlipidemia GERD - continue PPI and pepcid. Hold trulicity the week prior to surgery. CONSULTS: Patient does not require consults for optimization at this time. Pt is acceptable risk to proceed with planned procedure. Will fax note and forms to Dr. Egan's office, as requested. Thank you for allowing us to participate in Mary Jane's care. Please let us know if we can be of further assistance. 2. Excessive skin and subcutaneous tissue - ICD9: 701.9, ICD10: L98.7 Per plastic surgery. Christine Morgan APRN.CD REACTOR OPERATOR documented in this encounterK[facility]08-24-2023 History of Present illness Narrative* Radha Jaramillo, BIZTALK CONSULTANT - 11/13/2022 2:49 PM EDT Episode Visit Count: 6 Therapist That Will Accept/Oversee The Plan Of Care: Erum copeland PT, DPT Start of Care Date: 10/08/22 Onset Date: 09/15/22 Plan of Care Certification Date: 11/05/22 Next Certification Due Date: 12/31/22 Patient Identified by Name and Date of : Yes REHABILITATION AND SPORTS THERAPY PHYSICAL THERAPY TREATMENT NOTE ASSESSMENT: Mary Jane De Paz tolerated the session with no issues. She demonstrated tolerance to increased reps w/ heel slides and SAQ. Patient also tolerated increased step height with reciprocating steps. The patient will continue to benefit from ongoing skilled physical therapy to progress toward set goals. PLAN FOR NEXT VISIT: Progress exercises and increase ROM as tolerated SUBJECTIVE: Patient reported that she is having increased pain for over a week so she put a messageout to her surgeon. She reported that they called her in another steroid and also another prescription of pain medication. She reported that she does not want to take the steroid as she is scheduled to have skin removal surgery on 11/26/2022 and is not sure if this will interfere with the surgery. She made a follow up with the surgeon on 12/02/2022. She reported that she took 2 pain pills prior to therapy and her pain is 6/10. Pain: Pain Pain Level: 6 Pain Location: Knee - Right Description: Aching, Sharp Post Treatment Pain Post Treatment Pain Level: 4 Post Treatment Pain Location: Knee - Right OBJECTIVE MEASURES WITH LEVEL OF FUNCTION: TREATMENT: Therapeutic Exercise: 1: Quad set w/ towel at ankle 2 x 15 reps w/ 3 sec hold 2: SAQ 2 x 15 reps w/ 3 sec hold (Increased reps) 3: Heel slides 2 x 15 reps w/ 3 sec hold (Increased reps) 4: SLR 2 x 15 reps 5: Seated LAQ 2 x 15 reps 6: Seated resisted knee flexion 2 x 15 reps w/ orange band 7: Seated heel slides x 10 reps w/ 5 sec hold in flexion (Not performed this date) 8: Shuttle w/ wedge bilateral 25# 2 x 15 reps 9: Spirit stepper manual L1 x 10 minutes 10: Recumbent stepper manual L1 x 10 minutes (not billed) (Not performed this date) Skilled Intervention: Patient was educated in proper exercise technique and purpose for exercises. Skilled judgment was provided in selection of appropriate interventions. Therapeutic Activity: 1: Forward step ups 6 2 x 15 reps (Increased reps) 2: Reciprocating steps x 4 reps (Added 6 steps this date) Skilled Intervention: Proper patient guarding to prevent falls/increase patient safety with stand by assist to assist patient while performing steps Billing Therapeutic Exercise Treatment Minutes: 50 Therapeutic Activity Treatment Minutes: 5 Total Treatment Time Minutes (timed/untimed): 55 Session Start Time : 1450 Session Stop Time : 1548 Time spent on recumbent stepper not included in billed treatment time. Radha Jaramillo PTA documented in this encounterKet[facility]08-24-2023 Miscellaneous Notes* Telephone Encounter - Cindy Parrish - 11/13/2022 11:04 AM EDT Called and scheduled patient for next available with Anthony. * Telephone Encounter - Rafi Fox APRN.CNP - 11/13/2022 8:14 AM EDT Please contact for an appointment. Rafi Fox APRN.CNP November 13, 2022 8:17 AM documented in this encounterKettering [facility]08-23-2023 Miscellaneous Notes* Telephone Encounter - Ramo Russo LPN - 11/12/2022 11:33 AM EDT Pt notified. She verbalized understanding. Ramo Russo LPN * Telephone Encounter - Christine Morgan APRN.CNP - 11/12/2022 11:18 AM EDT Noted. If any worsening symptoms or recurrence of numbness -- she should proceed to ER to be checked. Christine Morgan APRN.CNP * Telephone Encounter - Melissa Morse RN - 11/12/2022 8:55 AM EDT Triage protocol recommends; ER or PCP Triage. Please advise patient. Sooner appt offered to patient and she prefers to see only Christine. Appt kept for 11/17 until advised by provider. Thank you. Reason for Disposition [1] Numbness (i.e., loss of sensation) of the face, arm / hand, or leg / foot on one side of the body AND [2] sudden onset AND [3] brief (now gone) Answer Assessment - Initial Assessment Questions Patient contacted for further triage of stated sx's: shaking, dizziness, equilibrium issues, off balance. Pt self-scheduled appt with Christine Morgan CNP for 11/17. Symptoms: -Reports over last year and a half has noticed more shaking in hands and whole body shakiness or quivering -reports hand shaking more pronounced and shakey all the time, shaking when doing tasks involvinghands or when trying to make pinching movement with fingers -feels dizzy when standing, has to stand upright for a moment before walking -bumping into things more ,tripping on things more, dropping things -occasional episodes of blurry vision-wears glasses, last eye exam about 8 months ago -some occasional numbness in a finger or foot-she is not sure if numbness occurs on one side of body or not-not having it now -has diabetes, uses Jaun CGM, sugars have been normal-states was getting low readings but reports Christine adjusted glimepiride to half dose about 2 weeks ago and BS readings are not as low as theywere but no improvement in her overall body shakiness and balance issues -reports slightly SOB with activity ever since right hip surgery-Ortho aware -occasional caffeine intake-minimal Denies: chest pain, palpitations, feeling like passing out, recent cold sx's, N/V/D, fever 1. DESCRIPTION: as above 2. LIGHTHEADED: not now-see above 3. VERTIGO: denies 4. SEVERITY: moderate at times 5. ONSET: dizziness over last couple of weeks 6. AGGRAVATING FACTORS:standing 7. HEART RATE: not completed 8. CAUSE: Pt unsure 9. RECURRENT SYMPTOM: no 10. OTHER SYMPTOMS: as above 11. : postmenopausal Protocols used: Dizziness - [id number] documented in this encounterKet[facility]08-23-2023 Miscellaneous Notes* Telephone Encounter - Melissa Morse RN - 11/12/2022 9:31 AM EDT See triage encounter 11/12/22. Will close this encounter. documented in this encounterKettering Health [facility]08-14-2023 Miscellaneous Notes* Addendum Note - Christine Morgan APRN.JOSEFINA - 11/03/2022 5:00 PM EDTAddended by: CHRISTINE MORGAN on: 11/03/2022 05:00 PM Modules accepted: Orders documented in this encounterKettering [facility]08-14-2023 History of Present illness Narrative* Christine Morgan APRN.CNP - 11/03/2022 4:56 PM EDT Can please check with patient. If she is having low sugars, and her last A1C was very good, I thinkwe should back off some of the diabetic medication. I would be more apt to decrease the glimepirideto 1/2 tablet once daily. Please update me with sugars in 2 weeks. Maybe we would be able to completely remove the glimepiride for now. 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 Regularly dropping to the 50s around 3-4:00am time frame; the Jaun alarm wakens her; does also occasionally have low readings during the day where pt will feel Hot, sweaty, shaky, a little spacey Also, pt in need of refill for Jaun sensor. Explained that script sent in on 07/29/22 was given 3 refills. Pt states [facility] didn't send it and wasn't sure what company they come from. Recommended [facility] to see how they sent the original script to in order to find out how to get next refill. If anyone in office knows how to do this, please have them call pt directly. Discussed mychart encounter from 10/30/22; pt did not wish to schedule w/ GI yet. Would like to continue w/ current medications and see if it gets better. PLEASE HAVE YOUR STAFF REACH OUT TO THE PATIENT WITH FURTHER ORDERS/INSTRUCTIONS. Thank you, Jase Dumont veneer matcherWanigan Clerk Contacted for: Routine Telephonic Outreach Contact made with patient: Yes Patient identified by name and date of . Discussed care with patient Are you experiencing any new or worsening symptoms you need to talk about today? No Disease Specific Do you check your blood pressure at home? Yes, Enter readings: 110s-120s/70s blood sugars running 50s in the early AM hours, can occasionally feel Hot, sweaty, shaky, a little spacey Do you have new or worsening shortness of breath with activity? No Do you feel like you are dehydrated for any reason, including not being able to eat or drink normally, or having less urine/much darker urine than normal for you? No Based on payroll director, the following disposition is advised: No symptoms or symptoms present, not severe. Routed to: No Action Needed VIDA Education Provided this Outreach: No Jase Dumont RN November 03, 2022 4:31 PM documented in this encounterKettering [facility]08-10-2023 History of Present illness Narrative* Donavon Patricia MD - 10/30/2022 1:58 PM EDT Post-op Office Visit Mary Jane De Paz 72 year old October 30, 2022 1:58 PM Surgery Date: 09/15/22 History: Mary Jane De Paz Is now 6 weeks out from right TKA. Post-operative course has been 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. No readmission/complications Subjective: Patient reports improving pain. Overall is doing well. weaning ambulatory aid weaning opioid pain medication Objective: Ambulates with slight limp Incision well-approximated, no drainage, normal lazaro-incisional erythema ROM 0 - 110 Distally DP/PT palpable Distally S/S/SP/DP/T intact at baseline Distally DF/EHL/PF intact at baseline Negative emma/calf tenderness Xrays: No new today Assessment and Plan: Mary Jane De Paz Is here for a second post-op appointment, overall doing well -continued ice, rest, and use of non-narcotic analgesia as needed -discussed home exercises -WBAT on operative extremity -continue ankle pumps and dvt ppx through 4 weeks -will see back at 1 year post-op for repeat exam and xrays--can see sooner if needed -discussed red flag symptoms of acutely increasing pain, new erythema, new swelling, drainage, shortness of breath Donavon Patricia MD Orthopaedic Surgery documented in this encounterK[facility]08-08-2023 History of Present illness Narrative* Radha Jaramillo, BIZTALK CONSULTANT - 10/28/2022 2:05 PM EDT Episode Visit Count: 4 Therapist That Will Accept/Oversee The Plan Of Care: Erum copeland PT, DPT Start of Care Date: 10/08/22 Onset Date: 09/15/22 Plan of Care Certification Date: 10/08/22 Next Certification Due Date: 12/31/22 Patient Identified by Name and Date of : Yes REHABILITATION AND SPORTS THERAPY PHYSICAL THERAPY TREATMENT NOTE ASSESSMENT: Mary Jane De Paz tolerated the session with no issues. She demonstrated tolerance to progression of reps and increased height of step ups this date. The patient will continue to benefit from ongoing skilled physical therapy to progress toward set goals. PLAN FOR NEXT VISIT: SUBJECTIVE: Patient reported that at the end of last week she was really sore but she is feeling some better. She reported that she got a refill of her pain pills and takes them PRN. She reported that her thinks that she can go without her cane but she feels more steady with it. Pain: Pain Pain Level: 1 Pain Location: Knee - Right Description: Aching Post Treatment Pain Post Treatment Pain Level: 2 OBJECTIVE MEASURES WITH LEVEL OF FUNCTION: LE AROM R Knee Flexion: 115 Degrees (Performed with strap) TREATMENT: Therapeutic Exercise: 1: Quad set w/ towel at ankle 2 x 15 reps w/ 3 sec hold 2: SAQ 2 x 10 reps w/ 3 sec hold 3: Heel slides 2 x 10 reps w/ 3 sec hold 4: SLR 3 x 10 reps 5: Seated LAQ 2 x 15 reps (Increased reps) 6: Seated resisted knee flexion 2 x 15 reps w/ orange band (Increased reps) 7: Seated heel slides x 10 reps w/ 5 sec hold in flexion 8: Shuttle w/ wedge bilateral 25# 2 x 15 reps 9: Recumbent stepper manual L1 x 10 minutes (Increased time on stepper) Skilled Intervention: Patient was educated in proper exercise technique and purpose for exercises. Skilled judgment was provided in selection of appropriate interventions. Therapeutic Activity: 1: Forward step ups 6 2 x 10 reps (Increased height) 2: Reciprocating steps 4 x 3 reps Skilled Intervention: Railing use for steps Billing Therapeutic Exercise Treatment Minutes: 40 Therapeutic Activity Treatment Minutes: 5 Total Treatment Time Minutes (timed/untimed): 45 Session Start Time : 1400 Session Stop Time : 1505 Time spent on recumbent stepper not included in billed treatment time. Cold pack applied to right knee with one towel layer with patient in supine with right LE elevated on lengthwise pillow for 10 minutes at the end of the session. Cold pack time not included in billedtreatment time. Radha Jaramillo PTA documented in this encounterK[facility]08-02-2023 History of Present illness Narrative* Radha Jaramillo PTA - 10/22/2022 1:16 PM EDT Episode Visit Count: 3 Therapist That Will Accept/Oversee The Plan Of Care: Erum copeland PT, DPT Start of Care Date: 10/08/22 Onset Date: 09/15/22 Plan of Care Certification Date: 10/08/22 Next Certification Due Date: 12/31/22 Patient Identified by Name and Date of : Yes REHABILITATION AND SPORTS THERAPY PHYSICAL THERAPY TREATMENT NOTE ASSESSMENT: Mary Jane De Paz tolerated the session with expected muscle soreness. She demonstrated better tolerance this date with exercises and ability to progress. Patient tolerated addition of step ups, reciprocating steps, and bilateral shuttle The patient will continue to benefit from ongoing skilled physical therapy to progress toward set goals. PLAN FOR NEXT VISIT: Progress exercises and increase ROM as tolerated SUBJECTIVE: Subjective: Patient reported that she has performed her exercises once daily the last week but has not been performing them twice due to having increased pain. She reported that she has been taking her pain medication at night and PRN during the day. Patient also reported that she called her surgeon's office after last visit and they started her on a medrol dose pack and gabapentin. Pain: Pain Pain Level: 3 Pain Location: Knee - Right Description: Aching Post Treatment Pain Post Treatment Pain Level: 4 OBJECTIVE MEASURES WITH LEVEL OF FUNCTION: LE AROM R Knee Flexion: 110 Degrees (In supine with strap for increased flexion) TREATMENT: Therapeutic Exercise: 1: Quad set w/ towel at ankle 2 x 10 reps w/ 3 sec hold 2: SAQ 2 x 10 reps w/ 3 sec hold 3: Heel slides 2 x 10 reps w/ 3 sec hold 4: SLR 2 x 10 reps 5: Seated LAQ 2 x 10 reps 6: Seated resisted knee flexion 2 x 10 reps w/ orange band 7: Seated heel slides x 10 reps w/ 5 sec hold in flexion 8: Shuttle w/ wedge bilateral 25# 2 x 15 reps 9: Recumbent stepper manual L1 x 5 minutes Skilled Intervention: Patient was educated in proper exercise technique and purpose for exercises. Skilled judgment was provided in selection of appropriate interventions. Therapeutic Activity: 1: Forward step ups 4 2 x 10 reps 2: Reciprocating steps 4 x 3 reps Skilled Intervention: Railing use for step negotiation. Billing Therapeutic Exercise Treatment Minutes: 40 Therapeutic Activity Treatment Minutes: 5 Total Treatment Time Minutes (timed/untimed): 45 Session Start Time : 1315 Session Stop Time : 1415 Time spent on recumbent stepper not included in billed treatment time. Cold pack applied to right knee with patient in supine with right LE elevated on lengthwise pillow x 10 minutes with one towel layer for 10 minutes at the end of the session. Cold pack time not included in billed treatment time. Radha Jaramillo PTA documented in this encounterKettering [facility]07-27-2023 Miscellaneous Notes* Telephone Encounter - Fox Rutledge RN - 10/16/2022 9:22 AM EDT Spoke with patient to let her know below, she verbalized understanding. * Telephone Encounter - Rafi Fxo APRN.CNP - 10/16/2022 8:46 AM EDT We can trial a medrol dose pack and Gabapentin to see if we can get some improvement in symptoms. Rafi Fox APRN.CNP October 16, 2022 8:47 AM * Telephone Encounter - Fox Rutledge RN - 10/16/2022 8:29 AM EDT Pt calling. . [phone] S/p R TKA conversion from uni to total Stating she is having a sharp, stabbing pain in her leg. Feels like an intense leg cramp, on either side of her knee and shots down her foot and up her thigh. If she moves a certain way, it causes the pain. Please advise. documented in this encounterKettering [facility]07-19-2023 History of Present illness Narrative* Jase Dumont RN - 10/08/2022 4:10 PM EDT CDM Telephonic Outreach Provider Action/FYI -ckd, htn, dm 2nd attempt, LVM Contacted for: Routine Telephonic Outreach Contact made with patient: No, left message. Jase Dumont RN October 08, 2022 4:11 PM * Jase Dumont RN - 10/08/2022 2:19 PM EDT CDM Telephonic Outreach Provider Action/FYI -- ckd, dm, htn Contacted for: Routine Telephonic Outreach Contact made with patient: No, left message. Pt currently shopping at [employer] requesting call back later today Jase Dumont RN October 08, 2022 2:20 PM documented in this encounterKet[facility]07-19-2023 History of Past illness Narrative* Problem Noted Date Diagnosed Date Resolved Date Stiffness of right knee 10/08/2022 11/0 03/2022 Acute pain of right knee 10/08/202203/2022 Difficulty walking 10/08/2022 Localized edema 10/08/2022 01/21/2023 S/P total knee arthroplasty, right 09/16/2022 01/21/2023 Osteoarthritis of right hip, unspecified osteoarthritis type 07/09/2022 07/09/2022 Obesity, Class II, BMI 35-39.9 12/17/2018 08/30/2020 Obesity 12/14/2018 08/30/2020 Class 3 severe obesity with serious comorbidity and body mass index (BMI) of 40.0 to 44.9 in adult 08/19/2018 08/30/2020 Post-operative state 05/26/2018 021 Coronary artery disease 10/28/201704/24 Contusion of leg, left, sequela 04/30/2017 08/30/2020 Pain of foot 11/27/2016 08/30/2020 Encounter for screening colonoscopy 10/09/2016 08/30/2020 Overview: Added automatically from request for surgery [id number] Diarrhea 09/01/2013 08/30/2020 HTN (hypertension) 12/05/2011 5 documented as of this encounter (statuses as of 01/21/2023) [facility] of Past illness Narrative* Problem Noted Date Diagnosed Date Resolved Date Stiffness of right knee 10/08/2022 11/0 03/2022 Acute pain of right knee 10/08/202203/2022 Difficulty walking 10/08/2022 3 Localized edema 10/08/2022 01/21/2023 S/P total knee arthroplasty, right 09/16/2022 01/21/2023 Osteoarthritis of right hip, unspecified osteoarthritis type 07/09/2022 07/09/2022 Obesity, Class II, BMI 35-39.9 12/17/2018 08/30/2020 Obesity 12/14/2018 08/30/2020 Class 3 severe obesity with serious comorbidity and body mass index (BMI) of 40.0 to 44.9 in adult 08/19/2018 08/30/2020 Post-operative state 05/26/2018 021 Coronary artery disease 10/28/201704/24 Contusion of leg, left, sequela 04/30/2017 08/30/2020 Pain of foot 11/27/2016 08/30/2020 Encounter for screening colonoscopy 10/09/2016 08/30/2020 Overview: Added automatically from request for surgery [id number] Diarrhea 09/01/2013 08/30/2020 HTN (hypertension) 12/05/2011 5 documented as of this encounter (statuses as of 01/28/2023) [facility] of Past illness Narrative* Problem Noted Date Diagnosed Date Resolved Date Stiffness of right knee 10/08/2022 11/0 03/2022 Acute pain of right knee 10/08/202203/2022 Difficulty walking 10/08/2022 3 Localized edema 10/08/2022 01/21/2023 S/P total knee arthroplasty, right 09/16/2022 01/21/2023 Osteoarthritis of right hip, unspecified osteoarthritis type 07/09/2022 07/09/2022 Obesity, Class II, BMI 35-39.9 12/17/2018 08/30/2020 Obesity 12/14/2018 08/30/2020 Class 3 severe obesity with serious comorbidity and body mass index (BMI) of 40.0 to 44.9 in adult 08/19/2018 08/30/2020 Post-operative state 05/26/2018 021 Coronary artery disease 10/28/201704/24 Contusion of leg, left, sequela 04/30/2017 08/30/2020 Pain of foot 11/27/2016 08/30/2020 Encounter for screening colonoscopy 10/09/2016 08/30/2020 Overview: Added automatically from request for surgery [id number] Diarrhea 09/01/2013 08/30/2020 HTN (hypertension) 12/05/2011 5 documented as of this encounter (statuses as of 02/04/2023) [facility] of Past illness Narrative* Problem Noted Date Diagnosed Date Resolved Date Stiffness of right knee 10/08/2022 1103/2022 Acute pain of right knee 10/08/202203/2022 Difficulty walking 10/08/2022 Localized edema 10/08/2022 01/21/2023 S/P total knee arthroplasty, right 09/16/2022 01/21/2023 Osteoarthritis of right hip, unspecified osteoarthritis type 07/09/2022 07/09/2022 Obesity, Class II, BMI 35-39.9 12/17/2018 08/30/2020 Obesity 12/14/2018 08/30/2020 Class 3 severe obesity with serious comorbidity and body mass index (BMI) of 40.0 to 44.9 in adult 08/19/2018 08/30/2020 Post-operative state 05/26/2018 021 Coronary artery disease 10/28/201704/24 Contusion of leg, left, sequela 04/30/2017 08/30/2020 Pain of foot 11/27/2016 08/30/2020 Encounter for screening colonoscopy 10/09/2016 08/30/2020 Overview: Added automatically from request for surgery [id number] Diarrhea 09/01/2013 08/30/2020 HTN (hypertension) 12/05/2011 5 documented as of this encounter (statuses as of 02/10/2023) [facility] illness Narrative* Problem Noted Date Diagnosed Date Resolved Date Stiffness of right knee 10/08/2022 11/0 03/2022 Acute pain of right knee 10/08/202203/2022 Difficulty walking 10/08/2022 3 Localized edema 10/08/2022 01/21/2023 S/P total knee arthroplasty, right 09/16/2022 01/21/2023 Osteoarthritis of right hip, unspecified osteoarthritis type 07/09/2022 07/09/2022 Obesity, Class II, BMI 35-39.9 12/17/2018 08/30/2020 Obesity 12/14/2018 08/30/2020 Class 3 severe obesity with serious comorbidity and body mass index (BMI) of 40.0 to 44.9 in adult 08/19/2018 08/30/2020 Post-operative state 05/26/2018 021 Coronary artery disease 10/28/201704/24 Contusion of leg, left, sequela 04/30/2017 08/30/2020 Pain of foot 11/27/2016 08/30/2020 Encounter for screening colonoscopy 10/09/2016 08/30/2020 Overview: Added automatically from request for surgery [id number] Diarrhea 09/01/2013 08/30/2020 HTN (hypertension) 12/05/2011 5 documented as of this encounter (statuses as of 02/11/2023) [facility] illness Narrative* Problem Noted Date Diagnosed Date Resolved Date Stiffness of right knee 10/08/2022 1103/2022 Acute pain of right knee 10/08/202203/2022 Difficulty walking 10/08/2022 3 Localized edema 10/08/2022 01/21/2023 S/P total knee arthroplasty, right 09/16/2022 01/21/2023 Osteoarthritis of right hip, unspecified osteoarthritis type 07/09/2022 07/09/2022 Obesity, Class II, BMI 35-39.9 12/17/2018 08/30/2020 Obesity 12/14/2018 08/30/2020 Class 3 severe obesity with serious comorbidity and body mass index (BMI) of 40.0 to 44.9 in adult 08/19/2018 08/30/2020 Post-operative state 05/26/2018 021 Coronary artery disease 10/28/201704/24 Contusion of leg, left, sequela 04/30/2017 08/30/2020 Pain of foot 11/27/2016 08/30/2020 Encounter for screening colonoscopy 10/09/2016 08/30/2020 Overview: Added automatically from request for surgery [id number] Diarrhea 09/01/2013 08/30/2020 HTN (hypertension) 12/05/2011 5 documented as of this encounter (statuses as of 03/16/2023) [facility] Narrative* Problem Noted Date Diagnosed Date Resolved Date Stiffness of right knee 10/08/2022 1103/2022 Acute pain of right knee 10/08/202203/2022 Difficulty walking 10/08/2022 Localized edema 10/08/2022 01/21/2023 S/P total knee arthroplasty, right 09/16/2022 01/21/2023 Osteoarthritis of right hip, unspecified osteoarthritis type 07/09/2022 07/09/2022 Obesity, Class II, BMI 35-39.9 12/17/2018 08/30/2020 Obesity 12/14/2018 08/30/2020 Class 3 severe obesity with serious comorbidity and body mass index (BMI) of 40.0 to 44.9 in adult 08/19/2018 08/30/2020 Post-operative state 05/26/2018 021 Coronary artery disease 10/28/201704/24 Contusion of leg, left, sequela 04/30/2017 08/30/2020 Pain of foot 11/27/2016 08/30/2020 Encounter for screening colonoscopy 10/09/2016 08/30/2020 Overview: Added automatically from request for surgery [id number] Diarrhea 09/01/2013 08/30/2020 HTN (hypertension) 12/05/2011 5 documented as of this encounter (statuses as of 05/01/2023) [facility] illness Narrative* Problem Noted Date Diagnosed Date Resolved Date Stiffness of right knee 10/08/2022 11/0 03/2022 Acute pain of right knee 10/08/202203/2022 Difficulty walking 10/08/2022 3 Localized edema 10/08/2022 01/21/2023 S/P total knee arthroplasty, right 09/16/2022 01/21/2023 Osteoarthritis of right hip, unspecified osteoarthritis type 07/09/2022 07/09/2022 Obesity, Class II, BMI 35-39.9 12/17/2018 08/30/2020 Obesity 12/14/2018 08/30/2020 Class 3 severe obesity with serious comorbidity and body mass index (BMI) of 40.0 to 44.9 in adult 08/19/2018 08/30/2020 Post-operative state 05/26/2018 021 Coronary artery disease 10/28/201704/24 Contusion of leg, left, sequela 04/30/2017 08/30/2020 Pain of foot 11/27/2016 08/30/2020 Encounter for screening colonoscopy 10/09/2016 08/30/2020 Overview: Added automatically from request for surgery [id number] Diarrhea 09/01/2013 08/30/2020 HTN (hypertension) 12/05/2011 5 documented as of this encounter (statuses as of 05/20/2023) [facility] of [facility] illness Narrative* Problem Noted Date Diagnosed Date Resolved Date Stiffness of right knee 10/08/2022 110 03/2022 Acute pain of right knee 10/08/202203/2022 Difficulty walking 10/08/2022 3 Localized edema 10/08/2022 01/21/2023 S/P total knee arthroplasty, right 09/16/2022 01/21/2023 Osteoarthritis of right hip, unspecified osteoarthritis type 07/09/2022 07/09/2022 Obesity, Class II, BMI 35-39.9 12/17/2018 08/30/2020 Obesity 12/14/2018 08/30/2020 Class 3 severe obesity with serious comorbidity and body mass index (BMI) of 40.0 to 44.9 in adult 08/19/2018 08/30/2020 Post-operative state 05/26/2018 021 Coronary artery disease 10/28/201704/24 Contusion of leg, left, sequela 04/30/2017 08/30/2020 Pain of foot 11/27/2016 08/30/2020 Encounter for screening colonoscopy 10/09/2016 08/30/2020 Overview: Added automatically from request for surgery [id number] Diarrhea 09/01/2013 08/30/2020 HTN (hypertension) 12/05/2011 5 documented as of this encounter (statuses as of 06/15/2023) [facility] History of Past illness Narrative* Problem Noted Date Diagnosed Date Resolved Date Stiffness of right knee 10/08/2022 11/0 03/2022 Acute pain of right knee 10/08/202203/2022 Difficulty walking 10/08/2022 Localized edema 10/08/2022 01/21/2023 S/P total knee arthroplasty, right 09/16/2022 01/21/2023 Osteoarthritis of right hip, unspecified osteoarthritis type 07/09/2022 07/09/2022 Obesity, Class II, BMI 35-39.9 12/17/2018 08/30/2020 Obesity 12/14/2018 08/30/2020 Class 3 severe obesity with serious comorbidity and body mass index (BMI) of 40.0 to 44.9 in adult 08/19/2018 08/30/2020 Post-operative state 05/26/2018 021 Coronary artery disease 10/28/201704/24 Contusion of leg, left, sequela 04/30/2017 08/30/2020 Pain of foot 11/27/2016 08/30/2020 Encounter for screening colonoscopy 10/09/2016 08/30/2020 Overview: Added automatically from request for surgery [id number] Diarrhea 09/01/2013 08/30/2020 HTN (hypertension) 12/05/2011 5 documented as of this encounter (statuses as of 06/15/2023) [facility] History of Past illness Narrative* Problem Noted Date Diagnosed Date Resolved Date Stiffness of right knee 10/08/2022 11/0 03/2022 Acute pain of right knee 10/08/202203/2022 Difficulty walking 10/08/2022 3 Localized edema 10/08/2022 01/21/2023 S/P total knee arthroplasty, right 09/16/2022 01/21/2023 Osteoarthritis of right hip, unspecified osteoarthritis type 07/09/2022 07/09/2022 Obesity, Class II, BMI 35-39.9 12/17/2018 08/30/2020 Obesity 12/14/2018 08/30/2020 Class 3 severe obesity with serious comorbidity and body mass index (BMI) of 40.0 to 44.9 in adult 08/19/2018 08/30/2020 Post-operative state 05/26/2018 021 Coronary artery disease 10/28/201704/24 Contusion of leg, left, sequela 04/30/2017 08/30/2020 Pain of foot 11/27/2016 08/30/2020 Encounter for screening colonoscopy 10/09/2016 08/30/2020 Overview: Added automatically from request for surgery [id number] Diarrhea 09/01/2013 08/30/2020 HTN (hypertension) 12/05/2011 5 documented as of this encounter (statuses as of 06/23/2023) [facility] History of Past illness Narrative* Problem Noted Date Diagnosed Date Resolved Date Stiffness of right knee 10/08/2022 11/0 03/2022 Acute pain of right knee 10/08/202203/2022 Difficulty walking 10/08/2022 3 Localized edema 10/08/2022 01/21/2023 S/P total knee arthroplasty, right 09/16/2022 01/21/2023 Osteoarthritis of right hip, unspecified osteoarthritis type 07/09/2022 07/09/2022 Obesity, Class II, BMI 35-39.9 12/17/2018 08/30/2020 Obesity 12/14/2018 08/30/2020 Class 3 severe obesity with serious comorbidity and body mass index (BMI) of 40.0 to 44.9 in adult 08/19/2018 08/30/2020 Post-operative state 05/26/2018 021 Coronary artery disease 10/28/201704/24 Contusion of leg, left, sequela 04/30/2017 08/30/2020 Pain of foot 11/27/2016 08/30/2020 Encounter for screening colonoscopy 10/09/2016 08/30/2020 Overview: Added automatically from request for surgery [id number] Diarrhea 09/01/2013 08/30/2020 HTN (hypertension) 12/05/2011 5 documented as of this encounter (statuses as of 07/03/2023) [facility] History of Present illness Narrative* Erum Copeland, PT - 10/08/2022 1:05 PM EDT Episode Visit Count: 1 Therapist That Will Accept/Oversee The Plan Of Care: Erum copeland PT, DPT Start of Care Date: 10/08/22 Onset Date: 09/15/22 Plan of Care Certification Date: 10/08/22 Next Certification Due Date: 12/31/22 Patient Identified by Name and Date of : Yes REHABILITATION AND SPORTS THERAPY PHYSICAL THERAPY EVALUATION PLAN OF CARE: Assessment: Mary Jane De Paz presents with diagnosis of status post right TKA performed on 09/15/2022 that interferes with standing, walking, stair negotiation, cleaning, physical activities, rising from a chair, sleeping . She presents with impairments in ADL's, gait, overall function, range of motion, and strength. Patient did not complete the PROMIS (Patient Reported Outcome Measures Information System). Prognosis for therapy is Excellent due to: current objective clinical presentation, good overall health status, acuteness of condition, good support system/ coping skills . She will benefit from skilled therapy services to meet the goals established for this plan of care as noted below. Goals for Episode of Care: created on 10/08/22 through 12/31/22 [place] in home exercise program. Patient will decrease pain to 0/10 at rest and with functional activities to allow patient to improve ambulation, transfers, and standing tolerance for ADLs. Patient will increase active ROM of right knee to 0 to 120 degrees to allow pt to to improve gait mechanics / gait pattern . Patient will demonstrate increase in bilateral lower extremity strength to 5/5 during manual muscletesting in order to improve function for prior functional tasks. Normal gait. Reciprocal stair negotiation. Patient Goals: Return to my PLOF Planned Interventions, Frequency, and Duration: Current Frequency: 1x/week (patient with a $40 co-pay) Duration: 12 weeks Total Number of Visits Planned: 12 Planned Treatment Interventions: Therapeutic exercise (92105), Neuromuscular re- education (51563), Manual therapy (37575), Therapeutic activities (76985), Self- intermediate management (71827), Gait Training (67806) (hot and cold modalities prn) PLAN FOR NEXT VISIT: HEP review and progress activity as tolerated Patient demonstrates good understanding of plan of care and treatment. The above goals and plan of care were discussed and agreed upon by patient/family. SUBJECTIVE: Mary Jane De Paz is a 72 year old female seen today for s/p right TKA performed [facility] at 09/15/2022. Patient had a two week follow up with Dr. Patricia after the surgery. Patient did have 5 visits with home health PT. She states her last session was 10/02. She states she was prescribed exercises to improve strength including AP, supine hip abduction, quad sets, leg lifts. Patient Goals: Return to my PLOF Functional Limitations: standing, walking, stair negotiation, cleaning, physical activities, risingfrom a chair, sleeping Prior Level of Function: Independent without limitations Relevant History Past Relevant Medical Conditions: Diabetes, Hypertension, Thyroid Disease Past Relevant Surgical Conditions: Total Hip Replacement-Right, Total Knee Replacement-Right, TotalKnee Replacement-Left (Partial knee replacement right, right hiip ORIF, pinning in left arm, two knuckles replaced on each hand) Hobbies / Interests: crafting (patient makes Greeting cards) Home Environment Patient Lives With: Spouse Assistance Available: 24-Hour Home Type: [place] Entry To Home: Stairs, Without Rail Number Of Stairs Into Home: 1 Tub/Shower Type: walk in shower Laundry: main level Equipment Owned: Sock Aid, Shower Chair, Walker- Wheeled, Commode- Raised, Human Services Manager, Elevated ToiletSeat, Grab Bars- Toilet, Lift Chair, Walker Bag/Basket Intake Information: Prescription present Previous Treatment: Surgery , Physical Therapy , Home Therapy , Pain meds , Ice Pain: Pain Pain Level: 7 Pain Location: Knee - Right Description: Sharp, Aching, Throbbing Frequency: Standing, Walking, Continuous Post Treatment Pain Post Treatment Pain Level: Better OBJECTIVE MEASURES WITH LEVEL OF FUNCTION: Knee Observations R Circumference 6 inches above mid-patella (inches): 17 inches R Circumference mid patella (inches): 14.5 inches R Circumference 6 inches below mid-patella (inches): 11.75 inches L Circumference 6 inches above mid-patella (inches): 16.25 inches L Circumference mid patella (inches): 13.5 inches L Circumference 6 inches below mid-patella (inches): 12.5 inches LE AROM R Knee Extension: -5 Degrees R Knee Flexion: 80 Degrees L Knee Extension: 0 Degrees L Knee Flexion: 130 Degrees LE PROM R Knee Flexion: 110 Degrees LE Strength R Hip Flexion (L2): 4-/5 R Hip ABduction: 4/5 R Hip ADduction: 4/5 R Knee Extension (L3): 4+/5 (pain right knee) R Knee Flexion: 4+/5 R Ankle Dorsiflexion (L4): 5/5 L Hip Flexion (L2): 4+/5 L Hip ABduction: 4+/5 L Hip ADduction: 4+/5 L Knee Extension (L3): 4+/5 L Knee Flexion: 4+/5 L Ankle Dorsiflexion (L4): 5/5 Gait Weight Bearing Status: WBAT Gait: Modified Independent Gait Distance (feet): 20 Gait Device: Wheeled Walker Gait Deviations: Right Lower Extremity Gait Deviations Right Lower Extremity: Foot clearance decreased, Heel strike during initial stance decreased, Knee flexion during stance increased, Push off during terminal stance decreased, Stance time decreased Education: Education Learning Preferences: Demonstration, Explanation, Performance, Printed Materials Barriers: None Learning/educational needs: Home exercise program, Plan of Care, Changes in Plan of Care, Gait Training Education Provided: Yes, see treatment interventions for education provided Education Provided To: Patient Education Mode/Type: Demonstration, Explanation/Discussion, Literature/Printed Materials, Performance Response to Education/Teach Back: States/Identifies, Return Demonstration TREATMENT: PT Treatment Interventions: Self-Senior Living Management Evaluation Evaluation Self-Senior Living Management: 1: HEP instruction with patient demonstrating 2-3 reps of each exercise Skilled Intervention: Skilled judgment in the selection of proper modification for activity of daily living/home management based on clinical presentation, deficits, and needs. Provided written instruction for activities of daily living techniques to facilitate proper performance and compliance. Home Exercise Program Assigned: 1: Quad sets with towel roll under knee 2 x 10, 5 second hold 2: Heel slides 2 x 10, 2 second hold 3: Passive knee extension stretch with towel roll under ankle x 3 minutes 4: SLR 2 x 10 5: LAQ 2 x 10, 2 second hold 6: Hamstring curls 2 x 10, pink Billing * Evaluation Low Complexity: 1 Unit Self-Care/Home Management Treatment Minutes: 10 Total Treatment Time Minutes (timed/untimed): 45 Session Start Time : 1300 Session Stop Time : 1345 Erum Copeland PT documented in this encounterK[facility] Miscellaneous Notes* HH PT DISCHARGE - Saniya Martínez PT - 10/02/2022 3:10 PM EDT SITUATION spouse present during today's visit. patient reports the following since the last homecare visit: medications/allergies--no changes, no fall. patient reports that her appt went well with the ortho. She is set up for OP PT next week Pt reports that she finally had a bowel movement yesterday and is feeling much better BACKGROUND: Diagnoses (reason for Home Care): revision R TKR Weight Bearing/Precaution Changes: no changes ASSESSMENT: Focus of visit: reassessment, discharge ROM R knee 0-105* Physical therapy discharged: goals achieved. Functional performance at discharge - bed mobility independent, transfers independent, ambulation independent and stairs independent. Plan of care, goals, and discharge reviewed and agreed upon with patient and/or caregiver. RECOMMENDATION: Patient discharged from home health services. Instructions to include:begin outpatient therapy on 10/02/22 See intervention summary for intervention/education details. documented in this encounterK[facility] History of Present illness Narrative* Rafi Fox APRN.CNP - 09/30/2022 3:34 PM EDT Post-op Office Visit Mary Jane De Paz 72 year old September 30, 2022 3:34 PM Surgery Date: 09/15/22 History: Mary Jane De Paz Is now 2.5 weeks out from S/P Right knee revision (conversion uni to total). Post-operative course has been 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. No readmission/complications Subjective: Patient reports continued but improving pain. Overall is doing well. Walker and wheelchair ambulatory aid Oxycodone opioid pain medication She is reporting some constipation issues She reported calf pain last week and sent for US DVT (negative) Objective: Ambulates with walker Incision well-approximated, no drainage, normal lazaro-incisional erythema ROM 0 - 94 (last PT session) Distally DP/PT palpable Distally S/S/SP/DP/T intact at baseline Distally DF/EHL/PF intact at baseline Negative emma/calf tenderness Xrays: Well-positioned total knee replacement in appropriate alignment with no evidence of loosening Assessment and Plan: Mary Jane De Paz Is here for a first post-op appointment, overall doing well -continued ice, rest, and use of non-narcotic analgesia as needed -wean off ambulatory aids -discussed home exercises and therapy -WBAT on operative extremity -continue ankle pumps and dvt ppx through 4 weeks -discussed driving requirement: 4 weeks post-op, off narcotic pain medication, adequate brake time -will see back at 6 week appointment for clinical exam -discussed red flag symptoms of acutely increasing pain, new erythema, new swelling, drainage, shortness of breath Rafi Fox APRN.JOSEFINA Orthopaedic Surgery documented in this encounterK[facility] History of Present illness Narrative* Afsaneh Fuentes Tech - 09/30/2022 1:40 PM EDT Radiology Service Progress Note PATIENT NAME: Mary Jane De Paz DATE OF SERVICE: September 30, 2022 TIME: 2:12 PM PATIENT IDENTITY VERIFICATION COMPLETED USING TWO (2) IDENTIFIERS: Name and Date of confirmedby patient verbally. FALL SCREENING: Has the patient had 2 falls in the last year or 1 fall with injury or currently using an Ambulatory Assistive Device (Walker, Cane, Wheelchair, Crutches, etc.)? No PATIENT GENDER DATA: Female. status: : No status: NO. PATIENT RELEVANT IMPLANT DATA REVIEWED: Not Applicable RADIOLOGY DEPARTMENT: General X-ray: Exam(s) Completed: Lower Extremity X- Ray(s): Knee, AP / Lat / Merchant Right and Wt. Bearing PERIPHERAL IV DATA: Not applicable SIGNED BY: Yadi Burrows September 30, 2022 2:12 PM documented in this encounterK[facility]-2023 Miscellaneous Notes* Addendum Note - Rafi Fox APRN.CNP - 09/29/2022 2:00 PM EDTAddended by: RAFI FOX on: 09/29/2022 02:00 PM Modules accepted: Orders documented in this encounterK[facility]-2023 Miscellaneous Notes* PT ROUTINE/REASSESSMENT/RECERT/CASE MGMT - Saniya Martínez, PT - 09/29/2022 12:31 PM EDT SITUATION spouse present during today's visit. patient reports the following since the last homecare visit: medications/allergies--no changes, no fall. patient reports she spoke with Dr Whitman office today as she is still feeling SOB with mobility. Pt has leg elevated with ice on my arrival. Reports that she was in terrible pain this morning but had gone 9 hours without a pain pill . Advised that she set a timer to take a pill to avoid this. Pt also reports constipation . Advised to take her miralax and docusate daily unitl she is able to go as ordered Requested order for OP PT and instructed pt to decide where she wants to go so we can get her scheduled for next week NOTE- no SOB noted throughout todays session BACKGROUND: Diagnoses (reason for Home Care): revision R TKR Weight Bearing/Precaution Changes: no changes ASSESSMENT: Focus of visit HEP progression, gait, pain and symptom mngmt. PROM R knee 0-94*. No SOBthroughout session. Plan of care, goals, and visit frequency reviewed and agreed upon with patient and/or caregiver. Current Discharge Plan: outpatient rehab Anticipate discharge by 10/04/22 RECOMMENDATION: Next visit to focus on HEP progression/ROM, gait progression, pain and symptom mngmt. See intervention summary for intervention/education details. documented in this encounterK[facility]23 Miscellaneous Notes* Telephone Encounter - Fox Rutledge RN - 09/29/2022 10:16 AM EDT Spoke with pt. Alert was for the pain, also because she is still feeling short of breath, very fatigued, a lot of pain. Shower took her an hour and a half as opposed to half an hour, SOB when walking to the bathroom. C/o constipation and poor appetite. Told pt to increase water intake, she stated she has but it's not as much as she should. Currently taking Miralax and Colace, tried MOM. Went over other interventions for constipation: -increase fiber in diet, eating foods high in fiber include beans, broccoli, whole grains, and apples -metamucil -Dulcolax, Senna,. -Magnesium Citrate -glycerin suppositories, enema Pt verbalized understanding, but asked for info to be send to her, will send [employer] message. Reminded to come early for x-ray appointment tomorrow prior to post op appt, verbalized understanding. * Telephone Encounter - Gely Saldaña - 09/29/2022 9:00 AM EDT Received a red alert from [place] regarding this patient. I called Mary Jane to see how she was doing. She reports that the pain is not getting any better but she also reports not taking the pain medication as consistent as she should be. She does maybe take 1 during the day and maybe 2 sometimes to help her sleep at night. She said she just doesn't feel well at all. She also reports being constipated and not really having an appetite and not really drinking as much fluids I.e. water as she should be. She is taking the medication prescribed at the time of discharge but has also tried milk of magnesia, MiraLax as well. She also reports that she is doing her exercises and that she only has a few left and then will be discharged to outpatient. She would like a call back from the office. She can be reached at [phone]. Gely Rojas documented in this encounterK[facility]-2023 Miscellaneous Notes* PT ROUTINE/REASSESSMENT/RECERT/CASE MGMT - Mary Jane Montgomery PTA - 09/27/2022 11:43 AM EDT SITUATION spouse present during today's visit. patient reports the following since the last homecare visit: medications/allergies--no changes, no fall. patient reports she went into [facility] yesterday to get checked for blood clot due to pt feeling that knee was warmer and she felt SOB whenever walking. No clot was found. Pt stated she is ambulating about every hour and performing AP frequently throughout the day and taking aspirin as instructed. BACKGROUND: Diagnoses (reason for Home Care): revision R TKR Weight Bearing/Precaution Changes: no changes ASSESSMENT: Focus of visit HEP progression, gait, pain and symptom mngmt. AROM R knee seated HS 86*. AROM R knee supine 2-82*. No SOB throughout session. Plan of care, goals, and visit frequency reviewed and agreed upon with patient and/or caregiver. Current Discharge Plan: outpatient rehab Anticipate discharge by 10/04/22 RECOMMENDATION: Next visit to focus on HEP progression/ROM, gait progression, pain and symptom mngmt. See intervention summary for intervention/education details. documented in this encounterK[facility]-2023 Miscellaneous Notes* CARE COORDINATION - Saniya Martínez PT - 09/26/2022 3:32 PM EDT pt called to cancel PT routine visit for this afternoon as the MD office called and instructed her to come in for an US due to calf pain Able to get pt rescheduled for a Thursday visit documented in this encounterKet[facility]07-[facility]-2023 History of Present illness Narrative* Afsaneh Bauman RDMS - 09/26/2022 2:30 PM EDT Radiology Service Progress Note PATIENT NAME: Mary Jane De Paz DATE OF SERVICE: September 26, 2022 TIME: 3:48 PM PATIENT IDENTITY VERIFICATION COMPLETED USING TWO (2) IDENTIFIERS: Name and Date of confirmedby patient verbally. FALL SCREENING: Has the patient had 2 falls in the last year or 1 fall with injury or currently using an Ambulatory Assistive Device (Walker, Cane, Wheelchair, Crutches, etc.)? No PATIENT GENDER DATA: Female. status: : No status: NO. PATIENT RELEVANT IMPLANT DATA REVIEWED: Not Applicable RADIOLOGY DEPARTMENT: Ultrasound PERIPHERAL IV DATA: Not applicable SIGNED BY: Afsaneh Bauman RDMS RVT September 26, 2022 3:48 PM documented in this encounterK[facility]07-[facility]-2023 Miscellaneous Notes* Telephone Encounter - Cindy Parrish - 09/26/2022 12:57 PM EDT [facility] just called me back, they will be able to do her US today at 2:30. * Telephone Encounter - Cindy Parrish - 09/26/2022 12:15 PM EDT Only location that has something available today is [facility]. Patient declined [facility] as it is too far and she doesn't feel good. I called [facility] to see if they could squeeze her in for her STAT US (she lives in [place]) .. [facility] will call us back within the next 5-10ish minutes when they get reach their US tech. Mary Jane has home therapy coming today from 2-3pm if she doesn't answer - ok to leave a message. Patient stated at end of call, she if [facility] had something, she would be ok with coming here.. PSS if [facility] doesn't have anything can we see if they can do it in [facility]?? Please call her and let her know - Mary Jane Thank you!! * Telephone Encounter - Fox Rutledge RN - 09/26/2022 11:28 AM EDT Spoke with Anthony. Will order a stat ultrasound to rule out DVT. Spoke with pt and updated her, she verbalized understanding. Please assist pt in scheduling a STAT ultrasound of right lower extremity. * Telephone Encounter - Fox Rutledge RN - 09/26/2022 10:38 AM EDT [employer] look triggered an alert for calf pain without SOB. Spoke with patient. Pain is not as bad today, feels like a cramp that goes all the way up to back of thigh Pain was waking her up in the middle of the night. Calf is warm, not hot, not red. Having some SOB, made pt exhausted, started today. Please advise. documented in this encounterK[facility]-2023 Miscellaneous Notes* PT ROUTINE/REASSESSMENT/RECERT/CASE MGMT - Saniya Martínez, PT - 09/24/2022 3:06 PM EDT SITUATION: spouse present during today's visit. patient reports the following since the last homecare visit: medications/allergies--no changes, no fall. patient reports she took 2 pain pills prior toPT. Pt reports that her swelling is way down but last night and today she has really been hurting although presently she is at a 1/10 BACKGROUND: Diagnoses (reason for Home Care): revision R TKR Weight Bearing/Precaution Changes: no changes ASSESSMENT: Focus of visit progressive ROM and strengthing ex's , ROM 5-85*. Plan of care, goals, and visit frequency reviewed and agreed upon with patient and/or caregiver. Current Discharge Plan: outpatient rehab Anticipate discharge by 10/04/22. Will need OP set up. RECOMMENDATION: Next visit to focus on progressive ROM (flexion), monitoring healing. Need measurement of incision length. See intervention summary for intervention/education details documented in this encounterK[facility]07[facility]-2023 Miscellaneous Notes* PT ROUTINE/REASSESSMENT/RECERT/CASE MGMT - King Byrd, PT - 09/22/2022 11:51 AM EDT SITUATION: spouse present during today's visit. patient reports the following since the last homecare visit: medications/allergies--no changes, no fall. patient reports she took 2 pain pills prior to PT. Has not been elevating properly. Ice machine disconnected and water on floor. (instructed in safe usage/fall prevention) BACKGROUND: Diagnoses (reason for Home Care): revision R TKR Weight Bearing/Precaution Changes: no changes ASSESSMENT: Focus of visit progressive ROM and strengthening R knee dressing removed today. There were 2 dressings- the primary incision dressing and a second square dressing distal to primary dressing- these dressings were overlapped and both removed. The distal dressing was covering what appears to be 2 small skin tears. Clean ABD's placed over wounds and secured with light lor wrap (paper tape would not hold dressings in place). Patient has 2 dogs that are not well managed during the visit- coming out of the room and hopping up on/near patient. Advised on keeping covered to keep clean. Telephone encounter sent. PT unable to establish connection to upload photo due to poor journalism intern. MD/team notified that photo not uploaded. Patient has her own photo on her phone if needed. Plan of care, goals, and visit frequency reviewed and agreed upon with patient and/or caregiver. Current Discharge Plan: outpatient rehab Anticipate discharge by 10/04/22. Will need OP set up. RECOMMENDATION: Next visit to focus on progressive ROM (flexion), monitoring healing. See intervention summary for intervention/education details. documented in this encounterK[facility]-2023 Miscellaneous Notes* PT ROUTINE/REASSESSMENT/RECERT/CASE MGMT - Mari Chu PTA - 09/20/2022 11:02 AM EDT SITUATION: spouse present during today's visit. patient reports the following since the last homecare visit: medications/allergies--no changes, no fall. patient reports 05/30 pain right knee Diagnoses (reason for Home Care): R TKA Weight Bearing/Precaution Changes: no changes ASSESSMENT: Focus of visit ROM and measures 75 degrees of right knee rom. Gait training with min verbal cues for knee felxion in swing phase of gait. Plan of care, goals, and visit frequency reviewed and agreed upon with patient and/or caregiver. Current Discharge Plan: outpatient rehab or I with HEP Anticipate discharge by10/01 RECOMMENDATION: Next visit to focus on bandage removval 09/22 See intervention summary for intervention/education details. documented in this encounterK[facility]06-30-2023 Miscellaneous Notes* CARE COORDINATION - Bertin Dickinson RN - 09/19/2022 2:50 PM EDT Medication review completed. Severe interaction noted. Telephone encounter sent to PCP. documented in this encounterKettering [facility]06-29-2023 Miscellaneous Notes* PT SOC/PATRICIA/FOLLOW UP/OTHER - Rangel Barajas PT - 09/18/2022 11:07 AM EDT SITUATION: spouse present during today's visit. patient reports agreeable to home PT. 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, right 09/15/22 Past Medical History: Any one of the comorbidities from the list below may have a deleterious effect on the primary home care diagnosis.- ACTIVE PROBLEM LIST Type 2 Diabetes Mellitus With Stage 3 Chronic Kidney Disease, Without Long-Term Current Use of Insulin ([facility]) Blepharochalasis Hyperlipidemia Hypothyroid Generalized Postprandial Abdominal Pain Ibs (Irritable Bowel Syndrome) Moderate Episode of Recurrent Major Depressive Disorder ([facility]) Essential Hypertension Maribel (Obst ructive Sleep Apnea) Cognitive Decline Other Symbolic Dysfunction Actinic Keratoses Gerd Without Esophagitis 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 Hypertensive kidney disease with stage 3 chronic kidney disease ([facility]) De Quervain's Tenosynovitis, Left Joint Stiffness of Hand, Left Metacarpophalangeal Joint Pain of Left Hand Finger Pain, Left Asthma Stage 3 Chronic Kidney Disease ([facility]) S/P Gastric Bypass Shyla sed Displaced Fracture of Right Femoral Neck ([facility]) Hyponatremia Hip Fracture Requiring Operative Repair, Right, Closed, Initial Encounter ([facility]) Type 2 Diabetes Mellitus ([facility]) Renal Lesion History of Total Hip Replacement, Right History of Total Knee Replacement, Left Coronary Artery Disease Involving [place] Coronary Artery of [place] Heart Without Angina Pectoris Uti (Urinary Tract Infection) S/P Total Knee Arthroplast y, Right Weight Bearing or Surgical Precautions: Wbat per d/c instructions. ASSESSMENT: [facility]. Reviewed and explained homecare services. Plan of care, goals, and visit frequency developed, reviewed, and agreed upon with patient and/or caregiver. PT to be 2w1, 3w1, 2w1. Dressing removal scheduled for 09/22/22. Mat be removed POD 7-10. F/u with ortho on 09/30/22. Patient Goal: Walk without pain. Patient will benefit from continued physical therapy to address the following deficits: strength, balance, gait, endurance, right knee joint ROM, transfers, stair negotiation, aerobic capacity and bed mobility. Current Discharge Plan: outpatient rehab. Anticipate discharge by 10/04/22. RECOMMENDATION: Next visit to focus on Working toward achieving goals of independence with gait, bed mobility, transfers and understanding and performance of HEP. Agreeable to PT; declining n/a. See intervention summary for intervention/education details. documented in this encounterK[facility]06-27-2023 Miscellaneous Notes* Telephone Encounter - FELISHA Lowe - 09/16/2022 2:36 PM EDT Welcome Home Call: a. Date and Time: 2:36 PM 09/16/2022 b. Contact name/relationship: Patient, Mary Jane hernández. Have you been active with any Home Care company in the last 60 days(such as help with bathing, filling medications, checking your blood pressure) ? Yes, [facility] last visit 07/31/22 d. [facility] will be providing your care, are you agreeable to starting these services? YES (yes or no) e. Do you have any upcoming appointments in the next few days, or restrictions to your schedule? NO f. Caregiver: Patient is able to manage care independently g. Confirmed Visited Location and preferred #: YES Please keep our your medications both over the counter and prescribed out for the home care to review, your hospital discharge instructions and write down any questions you might have. In order to maintain a safe environment for our caregivers, [facility] requires anyanimals or weapons present in the home be located in a secured location. Our clinicians will call you the night before or the morning of the appointment. Their # may come up restricted but they'll leave a VM for you. In case you have any questions or concerns in the meantime, our # is [phone], option [phone] Thank you for your time and have a great day. Radha Aburto, PSS documented in this encounterKettering [facility]06-27-2023 History of Past illness Narrative* Problem Noted Date Diagnosed Date Resolved Date S/P total knee arthroplasty, right 09/16/2022 01/21/2023 Osteoarthritis of right hip, unspecified osteoarthritis type 07/09/2022 07/09/2022 Obesity, Class II, BMI 35-39.9 12/17/2018 08/30/2020 Obesity 12/14/2018 08/30/2020 Class 3 severe obesity with serious comorbidity and body mass index (BMI) of 40.0 to 44.9 in adult 08/19/2018 08/30/2020 Post-operative state 05/26/2018 021 Coronary artery disease 10/28/201704/24 Contusion of leg, left, sequela 04/30/2017 08/30/2020 Pain of foot 11/27/2016 08/30/2020 Encounter for screening colonoscopy 10/09/2016 08/30/2020 Overview: Added automatically from request for surgery [id number] Diarrhea 09/01/2013 08/30/2020 HTN (hypertension) 12/05/2011 5 documented as of this encounter (statuses as of 01/25/2023) [facility] Miscellaneous Notes* Telephone Encounter - FELISHA Daniel - 08/21/2022 6:49 AM EDT TOTAL JOINT COMPLETE CARE PROGRAM PRE-OPERATIVE TEACHING Service Date: 08/21/2022 Service Time: Date of : 1950 Gender: female Date of Surgery: 09/15/22 Procedure: Right Total Knee Replacement Complete Care Program was discussed with the patient: Derivatives Trader Identification: Patient identified a outdoor emergency care technician to help when discharged to home: Home Environment: Home Layout: Ranch, Entry Steps: 1, Bedroom Location: 1st floor, Bathroom Location: 1st floor, and walk in shower. Pt owns walker, cane, shower chair and raised toilet seat. Discussed with patient importance of attending joint education class and provided date and times ofclass: YES declined, had partial TKA in past Patient received Joint Education Binder: Yes Patient plans discharge home PT. SIGNATURE: FELISHA Daniel PATIENT NAME: Mary Jane De Paz DATE: August 21, 2022 TIME: 6:49 AM documented in this encounterK[facility]05-30-2023 Miscellaneous Notes* Allied Health - ANGELA Thomas - 08/19/2022 1:15 PM EDT Radiology Service Progress Note PATIENT NAME: aMry Jane De Paz DATE OF SERVICE: August 19, 2022 TIME: 1:17 PM PATIENT IDENTITY VERIFICATION COMPLETED USING TWO (2) IDENTIFIERS: Name and Date of confirmedby patient verbally and Name and Date of confirmed by identification band. FALL SCREENING: Has the patient had 2 falls in the last year or 1 fall with injury or currently using an Ambulatory Assistive Device (Walker, Cane, Wheelchair, Crutches, etc.)? No PATIENT GENDER DATA: Female. status: : No status: NO. PATIENT RELEVANT IMPLANT DATA REVIEWED: Not Applicable RADIOLOGY DEPARTMENT: CT; Exam(s) Completed: rt napoleon knee PERIPHERAL IV DATA: Not applicable SIGNED BY: ANGELA Thomas August 19, 2022 1:17 PM documented in this encounterKettering [facility]05-30-2023 History of Present illness Narrative* Bere Ferrer RN - 08/19/2022 11:37 AM EDT CDM ENROLLMENT Provider Action / FYI: - ckd, dm, htn Contact Made with Patient: Yes The patient was identified by Name and Date of . Discussed Care with: patient Patient enrolled via: Telephonic Are you experiencing any new or worsening symptoms that you need to talk about today? No Bere Ferrer RN August 19, 2022 12:53 PM documented in this encounterKettering [facility]05-11-2023 Miscellaneous Notes* PT DISCHARGE - Saniya Martínez, PT - 07/31/2022 11:01 AM EDT SITUATION: only patient present during today's visit. patient reports the following since the last homecare visit: medications/allergies--no changes, no fall. patient reports she has been doing more walking and it is going well. Pt is eager for R TKR in a few months BACKGROUND: Diagnoses (reason for Home Care): RTHR Weight Bearing/Precaution Changes: posterior ASSESSMENT: Focus of visit: reassessment /discharge Physical therapy discharged: goals achieved. Functional performance at discharge - bed mobility independent, transfers independent, ambulation independent and stairs independent. Plan of care, goals, and discharge reviewed and agreed upon with patient and/or caregiver. RECOMMENDATION: Patient discharged from home health services. Instructions to include:home exercise program as directed See intervention summary for intervention/education details. documented in this encounterK[facility]05-11-2023 Miscellaneous Notes* Telephone Encounter - Mary Braxton LPN - 07/31/2022 8:39 AM EDT Spoke with pt and information listed below given. Pt verbalizes understanding. Mary Braxton LPN * Telephone Encounter - Dionna Vicente RN - 07/31/2022 8:32 AM EDT Called and left a voicemail for the Patient to call back and ask for a nurse to receive the providers message. Dionna Vicente RN * Telephone Encounter - Christine Morgan APRN.CNP - 07/30/2022 4:58 PM EDT Can please let patient know that I received the lab results. Everything looks normal/stable, excepther platelets were elevated. This may be due to the recent anemia she had after surgery, however, I would like to recheck this in a couple of weeks to ensure that it is stable. The order is in for the recheck -- she should be able to stop in at her convenience to complete. Christine Morgan APRN.JOSEFINA documented in this encounterK[facility]05-09-2023 Instructions* Patient Instructions* Christine Morgan APRN.CNP - 07/29/2022 11:40 AM EDT Continue the same medications. Get the labs. Let me know if the jaun was covered. documented in this encounterK[facility]05-09-2023 History of Present illness Narrative* Christine Morgan APRN.CNP - 07/29/2022 11:01 AM EDT This is a 72 year old female who presents today with: Patient presents with: Recheck 6 Month Exam HISTORY OF PRESENT ILLNESS: Mary Jane De Paz is a 72 year old female. Patient presents with: Recheck 6 Month Exam Pt presents today for follow-up. Refers that she had her right hip replaced. Awaiting the right knee replacement. Also being scheduled for skin removal surgery soon. Recovering well from the hip. GERD: Has been worse. Taking nexium twice daily. Refers that she will take as needed maalox chews. DM: Reports overall feeling well. Medication side effects: No. Home sugar checks: no. Interested in CGM. Hypoglycemic spells: yes -- over the past weekend. Watching diet: Yes. Unexpected weight loss: No. Polyuria, polydipsia: No. Vision Changes: No. Foot lesions or numbness or pain: a little bit intermittently. HTN: Patient is compliant with meds Yes Monitors bp at home: No. Denies side effects: Yes. Chest pain: No. Dyspnea: a little bit with activity. Edema: No. Palpitations: No. Syncope: No. Headache: No. Dizziness: a little dizzy. HYPERLIPIDEMIA: Patient is taking medications: Yes. Patient is watching diet: Yes. Patient denies myalgias: Yes. Patient denies gi upset: Yes Mood: Has been good. Depression/anxiety controlled. PAST MEDICAL HISTORY: PAST MEDICAL HISTORY Diagnosis Date Allergic rhinitis Arthritis [facility], knee Asthma CKD (chronic kidney disease) 11/01/2018 Class 3 severe obesity with serious comorbidity and body mass index (BMI) of 40.0 to 44.9 in adult (HCC) 08/19/2018 Coronary artery disease 10/28/[address] Salazar Fracture of right hip ([facility]) GERD (gastroesophageal reflux disease) History of transfusion HTN (hypertension) Hypothyroidism Mixed hyperlipidemia NIDDM (non-insulin dependent 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) MARIBEL on CPAP CPAP 9Cm Osteoarthritis of hip Renal lesion 01/15/2015 Suggest renal US every 1-2 years per PCP or nephro. Snoring Type 2 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 with hyperglycemia, with long-term current use of insulin (HCC) 1999 PAST SURGICAL HISTORY Procedure Laterality Date ABDOMINAL SURGERY HX COLONOSCOPY 11/05/2016 Tammi- divertiuclosis, internal hemorrhoids, repeat in 5 years COLONOSCOPY 04/02/2022 repeat in 5 years due to reported prior history of polyps COSMETIC ASSESSMENT EGD 11/05/2016 Tammi- gastritis EGD 09/08/2018 /Gastritis EGD 04/02/2020 EGD 04/02/2022 EYE SURGERY HX Bilateral cataract extraction 2009' GASTRECTOMY,PART DISTAL;W/GASTRODUODENOSTO GASTRIC BYPASS HX 12/13/2018 Laparoscopic Samina-en-Y gastric bypass JOINT REPLACEMENT HX OOPHORECTOMY PARTIAL OR TOTAL PAST SURGICAL HISTORY OF 2009 hemmroidectomy/sphincterectomy - Dr Nichole PAST SURGICAL HISTORY OF 2008 total left knee replacement PAST SURGICAL HISTORY OF 2003 partial right knee replacement PAST SURGICAL HISTORY OF 1990 total hysterectomy PAST SURGICAL HISTORY OF 2010 lDr Mansoor - [place] elbow fracture - traumatic. radial head replacement PAST SURGICAL HISTORY OF Bilateral 2016 hand surgery PAST SURGICAL HISTORY OF Left RELEASE CONTRACTURE DEQUERVAINS S INSERT PINN METAL NTRL HIP Right 11/17/2021 SKIN BIOPSY HX TUBAL LIGATION HX VAGINAL HYSTERECTOMY ALLERGIES Vicodin [Hydrocodone-Acetaminophen] MEDICATIONS Current Outpatient Medications Medication Sig ascorbic acid, vitamin C, (VITAMIN C) 500 mg tablet Take 500 mg by mouth once daily. FLUTICASONE PROPIONATE NASAL Inhale 1 Gay as instructed once daily as needed (allergies). coffee xt/phosphatidyl serine (NEURIVA ORIGINAL ORAL) Take 2 tablets by mouth once daily. lisinopril (ZESTRIL) 10 mg tablet Take 1 tablet by mouth once daily. ferrous sulfate 325 mg (65 mg iron) tablet Take 1 tablet by mouth daily with lunch. acetaminophen (TYLENOL) 500 mg tablet Take 2 tablets by mouth every 8 hours as needed for pain. ascorbic acid, vitamin C, (VITAMIN C) 500 mg tablet Take 1 tablet by mouth twice daily with meals for 28 doses. aspirin, enteric coated (ASPIRIN, ENTERIC COATED) 81 mg EC tablet Take 1 tablet by mouth twice daily for 28 days. docusate sodium (COLACE) 100 mg capsule Take 1 capsule by mouth twice daily as needed for constipation. oxyCODONE IR (ROXICODONE) 5 mg immediate release tablet Take 1-2 tablets by mouth every 6 hours as needed for pain. diclofenac (VOLTAREN) 1 % topical gel Apply 4 g to affected area four times daily. levothyroxine (SYNTHROID) 100 mcg tablet Take 1 tablet by mouth once daily. traZODone (DESYREL) 100 mg tablet Take 2 tablets by mouth daily at bedtime. esomeprazole (NEXIUM) 40 mg capsule TAKE ONE CAPSULE BY MOUTH twice daily. glimepiride (AMARYL) 2 mg tablet Take 1 tablet by mouth daily with breakfast. buPROPion XL (WELLBUTRIN XL) 300 mg 24 hr tablet Take 1 tablet by mouth once daily. atorvastatin (LIPITOR) 20 mg tablet Take 1 tablet by mouth daily at bedtime. For cholesterol. dulaglutide (TRULICITY) 0.75 mg/0.5 mL pen injector Inject 0.75 mg subcutaneously one time a week. Inject dose once per week. Discard Pen After FLUoxetine (PROZAC) 20 mg capsule Take 3 capsules by mouth once daily. APPLE CIDER VINEGAR ORAL Take 1 capsule by mouth once daily. 450 mg capsule OTC NUTRITIONAL SUPPLEMENT Take 1 capsule by mouth once daily. Tumeric - 2000 mg capsule dicyclomine (BENTYL) 20 mg tablet Take 1 tablet by mouth before meals and at bedtime. calcium citrate/vitamin D3 (CALCIUM CITRATE + D ORAL) Take 1 tablet by mouth twice daily. MULTI-VITAMIN ORAL Take 1 tablet by mouth once daily. Takes bariatric multivitamin daily No current facility-administered medications for this visit. FAMILY HISTORY Problem Relation Age of Onset Diabetes Father other (Squamous cell ca) Father other (renal cell ca) Father 1999 other (htn) Father other (polio) Mother other (renal cell ca) Brother 2010 other (Thyroid Cancer) Sister other (thyroid disease) Sister ca Obesity Paternal Grandmother Obesity Daughter Thyroid Daughter Anesthesia Problems No Family History Social History Tobacco Use Smoking status: Former Packs/day: 1.50 Years: 22.00 Pack years: 33.00 Types: Cigarettes Quit date: 1989 Years since quittin.3 Smokeless tobacco: Never Vaping Use Vaping Use: Never used Substance Use Topics Alcohol use: Yes Comment: few times a year. mixed drinls/marcelino. 3 in sitting. Drug use: No Comment: denies tx for drug/alcohol abuse in the past. EXAM: BP 118/76 Pulse 91 Resp 18 Wt 69.9 kg (154 lb) SpO2 97% BMI 28.17 kg/m PHYSICAL EXAM: General Appearance: Well appearing, alert, in no acute distress, well-hydrated, well nourished.. Skin: Skin color, texture, turgor normal, no suspicious rashes or lesions. Head: Normocephalic, no masses, lesions, tenderness or abnormalities. Eyes: Anicteric sclera. Extraocular movements are intact. . Neck: Supple, no adenopathy; thyroid symmetric, normal size, no bruits. Lungs: Lungs clear to auscultation. No wheezing, rhonchi, rales.. Heart: RRR without murmur, gallop, or rubs. No ectopy. Extremities: No deformities, edema, skin discoloration, clubbing or cyanosis. Good capillary refill. Neurologic: Gait normal. ASSESSMENT/PLAN: 1. Type 2 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 with stage 3 chronic kidney disease, without long- term current use of insulin, unspecified whether stage 3a or 3b CKD (HCC) - ICD9: 250.40, 585.3, ICD10: E11.22, N18.30 (primary diagnosis) - Controlled - Continue current medications Reports symptoms of hypoglycemia over the weekend. She is not checking home sugars. Interested in jaun. - FREESTYLE JAUN 3 SENSOR DEVICE - HGB A1C 2. Anemia, unspecified type - ICD9: 285.9, ICD10: D64.9 Anemic after hip surgery. Has not been rechecked. - CBC + DIFF 3. Hyponatremia - ICD9: 276.1, ICD10: E87.1 - COMP METABOLIC PANEL 4. Mixed hyperlipidemia - ICD9: 272.2, ICD10: E78.2 - good control - Continue current medication. - LIPID PANEL, NONFASTING 5. Hypothyroidism, unspecified type - ICD9: 244.9, ICD10: E03.9 Surveillance. - TSH BLD - T4 FREE/FREE THYROX 6. Gastroesophageal reflux disease, unspecified whether esophagitis present - ICD9: 530.81, ICD10: K21.9 Not controlled. Will add pepcid. Take twice daily until controlled, then decrease to once daily at bedtime. - FAMOTIDINE 20 MG TABLET - MAGNESIUM BLD 7. Moderate episode of recurrent major depressive disorder (HCC) - ICD9: 296.32, ICD10: F33.1 Has been controlled on current medication. 8. Hypertensive kidney disease with stage 3a chronic kidney disease (HCC) - ICD9: 403.90, 585.3, ICD10: I12.9, N18.31 - good control - Continue current medication(s) - Recommended regular aerobic exercise. - Recommend home blood pressure monitoring, to bring results in on next visit - Goal of BP <130/80 - eGFR: Stable - Statin therapy: Yes - ACEi/ARB prescribed: Yes - Counseled on avoiding regular use of NSAIDs, adequate hydration, potential risk of IV dye - Recommend maintaining blood pressure under 130/80 - COMP METABOLIC PANEL Discussed treatment plan and patient voices understanding. Patient's questions answered appropriately. Medications and potential side effects were discussed and patient voices understanding. Return to the office as scheduled or as needed for worsening/no improvement. Christine Morgan APRN.CD REACTOR OPERATOR documented in this encounterK[facility]05-09-2023 Evaluation note* Diagnosis Type 2 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 with stage 3 chronic kidney disease, without long-term current use of insulin, unspecified whether stage 3a or 3b CKD (HCC)- Primary Anemia, unspecified type Hyponatremia Hyposmolality and/or hyponatremia Mixed hyperlipidemia Hypothyroidism, unspecified type Gastroesophageal reflux disease, unspecified whether esophagitis present Moderate episode of recurrent major depressive disorder (HCC) Hypertensive kidney disease with stage 3a chronic kidney disease (HCC) documented in this encounter [facility]-08-2023 Miscellaneous Notes* PT ROUTINE/REASSESSMENT/RECERT/CASE MGMT - Esperanza Basurto PTA - 07/28/2022 3:30 PM EDT SITUATION: only patient present during today's visit. patient reports the following since the last homecare visit: medications/allergies--no changes, no fall. patient reports she has been using cane all weekend. Doing ok. Very anxious to get a date for her R TKR due to knee pain keeping her awake at night. BACKGROUND: Diagnoses (reason for Home Care): RTHR Weight Bearing/Precaution Changes: posterior ASSESSMENT: Focus of visit Issued NOMNC. cane gait training outdoors including curb stepping and slight incline/decline. Ann standing exercises Plan of care, goals, and visit frequency reviewed and agreed upon with patient and/or caregiver. Current Discharge Plan: independent with home exercise program Anticipate discharge by 07/31/22 RECOMMENDATION: Next visit to focus on PT to see for DC See intervention summary for intervention/education details. documented in this encounterK[facility]05-04-2023 Miscellaneous Notes* PT ROUTINE/REASSESSMENT/RECERT/CASE MGMT - Esperanza Basurto PTA - 07/24/2022 2:15 PM EDT SITUATION: spouse present during today's visit. patient reports the following since the last homecare visit: medications/allergies--no changes, no fall. patient reports she is now able to progress to WBAT and use cane. was pleased with healing. BACKGROUND: Diagnoses (reason for Home Care): RTHR Weight Bearing/Precaution Changes: notified care team WBAT ASSESSMENT: Focus of visit progressed standing exercises due to WBAT. cane training including stair training Plan of care, goals, and visit frequency reviewed and agreed upon with patient and/or caregiver. Current Discharge Plan: independent with home exercise program Anticipate discharge by 07/31/22 RECOMMENDATION: Next visit to focus on outdoor ambulation w/ cane if weather permits See intervention summary for intervention/education details. documented in this encounterK[facility]05-03-2023 History of Present illness Narrative* Rafi Fox APRN.CD REACTOR OPERATOR - 07/23/2022 7:13 AM EDT Post-op Office Visit Mary Jane De Paz 72 year old July 23, 2022 7:13 AM Surgery Date: 07/07/22 History: Mary Jane De Paz Is now 2 weeks out from S/P Robotically assisted right posterior based REID. Post-operative course has been 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. No readmission/complications Subjective: Patient reports continued but improving pain. Overall is doing well. Walker ambulatory aid Oxycodone opioid pain medication Objective: Ambulates with walker Incision well-approximated, no drainage, normal lazaro-incisional erythema Full ROM not tested do to early post-operative period, but smaller arcs of motion fluid and comfortable Distally DP/PT palpable Distally S/S/SP/DP/T intact at baseline Distally DF/EHL/PF intact at baseline Negative emma/calf tenderness Xrays: Well aligned total hip replacement in appropriate position with no evidence of loosening Assessment and Plan: Mary Jane De Paz Is here for a first post-op appointment, overall doing well -continued ice, rest, and use of non-narcotic analgesia as needed -wean off ambulatory aids -discussed home exercises and therapy -WBAT on operative extremity -reinforced posterior precautions through 8 weeks: avoid extremes of flexion, internal rotation, and adduction -continue ankle pumps and dvt ppx through 4 weeks -discussed driving requirement: 4 weeks post-op, off narcotic pain medication, adequate brake time -will see back at 6 week appointment for clinical exam -discussed red flag symptoms of acutely increasing pain, new erythema, new swelling, drainage, shortness of breath Rafi Fox APRN.CNP Orthopaedic Surgery documented in this encounterK[facility]23 Miscellaneous Notes* Allied Health - Homa Vizcarra RT(R) - 07/22/2022 1:40 PM EDT Radiology Service Progress Note PATIENT NAME: Mary Jane De Paz DATE OF SERVICE: July 22, 2022 TIME: 1:47 PM PATIENT IDENTITY VERIFICATION COMPLETED USING TWO (2) IDENTIFIERS: Name and Date of confirmedby patient verbally. FALL SCREENING: Has the patient had 2 falls in the last year or 1 fall with injury or currently using an Ambulatory Assistive Device (Walker, Cane, Wheelchair, Crutches, etc.)? No PATIENT GENDER DATA: Female. status: : No status: NO. PATIENT RELEVANT IMPLANT DATA REVIEWED: Not Applicable RADIOLOGY DEPARTMENT: General X-ray: Exam(s) Completed: Pelvis X-Ray: Pelvis with Hip Right PERIPHERAL IV DATA: Not applicable SIGNED BY: RT Fidencio(R) July 22, 2022 1:47 PM documented in this encounterK[facility]05-02-2023 Progress note* Allied [facility] - Homa Vizcarra RT(R) - 07/22/2022 1:40 PM EDT Radiology Service Progress Note PATIENT NAME: Mary Jane De Paz DATE OF SERVICE: July 22, 2022 TIME: 1:47 PM PATIENT IDENTITY VERIFICATION COMPLETED USING TWO (2) IDENTIFIERS: Name and Date of confirmedby patient verbally. FALL SCREENING: Has the patient had 2 falls in the last year or 1 fall with injury or currently using an Ambulatory Assistive Device (Walker, Cane, Wheelchair, Crutches, etc.)? No PATIENT GENDER DATA: Female. status: : No status: NO. PATIENT RELEVANT IMPLANT DATA REVIEWED: Not Applicable RADIOLOGY DEPARTMENT: General X-ray: Exam(s) Completed: Pelvis X-Ray: Pelvis with Hip Right PERIPHERAL IV DATA: Not applicable SIGNED BY: RT Fidencio(R) July 22, 2022 1:47 PM [facility] Miscellaneous Notes* PT ROUTINE/REASSESSMENT/RECERT/CASE MGMT - Esperanza BENITEZ Basurto - 07/21/2022 12:16 PM EDT SITUATION: spouse present during today's visit. patient reports the following since the last homecare visit: medications/allergies--no changes, no fall. patient reports her right knee has been pretty sore. Plans to discuss TKR w/ dr tomorrow at appointment. BACKGROUND: Diagnoses (reason for Home Care): RTHR Weight Bearing/Precaution Changes: no changes posterior, PWB ASSESSMENT: Focus of visit performed supine and standing, RLE only, exercises for HEP. Denies increased pain w exercises. Gait training w/ww and cues for PWB. good recall of hip precautions Plan of care, goals, and visit frequency reviewed and agreed upon with patient and/or caregiver. Current Discharge Plan: independent with home exercise program Anticipate discharge by 07/31/22 RECOMMENDATION: Next visit to focus on progression of WB if approved by Dr See intervention summary for intervention/education details. documented in this encounterK[facility]04-27-2023 Miscellaneous Notes* PT ROUTINE/REASSESSMENT/RECERT/CASE MGMT - Esperanza Basurto, BENITEZ - 07/17/2022 11:45 AM EDT SITUATION: only patient present during today's visit. patient reports the following since the last homecare visit: medications/allergies--no changes, no fall. patient reports she did not sleep well last night. Did not take anything for pain before bed and thinks that is why she did not sleep. BACKGROUND: Diagnoses (reason for Home Care): RTHR Weight Bearing/Precaution Changes: no changes ASSESSMENT: Focus of visit performed and progressed exercises for HEP. Good recall of hip precautions. Gait training w/ww Plan of care, goals, and visit frequency reviewed and agreed upon with patient and/or caregiver. Current Discharge Plan: independent with home exercise program Anticipate discharge by 07/31/22 RECOMMENDATION: Next visit to focus on add standing hip abd See intervention summary for intervention/education details. documented in this encounterK[facility]04-24-2023 Miscellaneous Notes* Telephone Encounter - Esperanza Basurto PTA - 07/14/2022 4:26 PM EDT Removed surgical bandage today. No concerns with healing at this time. documented in this encounterK[facility]04-24-2023 Miscellaneous Notes* PT ROUTINE/REASSESSMENT/RECERT/CASE STEPHANIE - Esperanza Basurto, BENITEZ - 07/14/2022 3:16 PM EDT SITUATION: spouse present during today's visit. patient reports the following since the last homecare visit: medications/allergies--no changes, no fall. patient reports she is not having a good day, nauseated. BACKGROUND: Diagnoses (reason for Home Care): RTHR Weight Bearing/Precaution Changes: posterior 50% WB ASSESSMENT: Focus of visit bandage removal. performed supine exercises for HEP. Gait training w/ww. Good recallof surgical precautions Plan of care, goals, and visit frequency reviewed and agreed upon with patient and/or caregiver. Current Discharge Plan: independent with home exercise program Anticipate discharge by 07/31/22 RECOMMENDATION: Next visit to focus on add standing RLE hamstring curls See intervention summary for intervention/education details. documented in this encounterK[facility]04-21-2023 Miscellaneous Notes* PT SOC/PATRICIA/FOLLOW UP/OTHER - Saniya Martínez, PT - 07/11/2022 10:46 AM EDT SITUATION: spouse present during today's visit. patient reports this hurts a little more than last time ( ORIF R femur 2021 ) . BACKGROUND: Diagnoses (reason for Home Care): 07/07/22 to 07/09/2022: Primary osteoarthritis right hip S/P R hip conversion to REID 07/07/22 -ACTIVE PROBLEM LIST Type 2 Diabetes Mellitus With Stage 3 Chronic Kidney Disease, Without Long-Term Current Use of Insulin (Hcc) Blepharochalasis Hyperlipidemia Hypothyroid Generalized Postprandial Abdominal Pain Ibs (Irritable Bowel Syndrome) Moderate Episode of Recurrent Major Depressive Disorder (Hcc) Essential Hypertension Maribel (Obs tructive Sleep Apnea) Cognitive Decline Other Symbolic Dysfunction Actinic Keratoses Gerd Without Esophagitis 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 Hypertensive kidney disease with stage 3 chronic kidney disease (HCC) De Quervain's Tenosynovitis, Left Joint Stiffness of Hand, Left Metacarpophalangeal Joint Pain of Left Hand Finger Pain, Left Asthma Stage 3 Chronic Kidney Disease (Hcc) S/P Gastric Bypass C losed Displaced Fracture of Right Femoral Neck (Hcc) Hyponatremia Hip Fracture Requiring Operative Repair, Right, Closed, Initial Encounter ([facility]) Type 2 Diabetes Mellitus (Hcc) Renal Lesion Weight bearing status: 50% Partial weight bearing RLE , posterior precautions Wound location: R Hip, Wound care: Silver impregnated dressing to remain on for 7 days ASSESSMENT: [facility]. Reviewed and explained homecare services. Plan of care, goals, and visit frequency developed, reviewed, and agreed upon with patient and/or caregiver. Patient Goal: walk without pain Patient will benefit from continued physical therapy to address the following deficits: strength, balance, gait, transfers, stair negotiation and bed mobility. Current Discharge Plan: independent with home exercise program. Anticipate discharge by 08/02/22. RECOMMENDATION: Next visit to focus on review Hep and precaitions , gait, transfers Agreeable to PT See intervention summary for intervention/education details. documented in this encounterK[facility]04-19-2023 History of Past illness Narrative* Problem Noted Date Resolved Date Osteoarthritis of right hip, unspecified osteoar thritis type 07/09/2022 07/09/2022 Obesity, Class II, BMI 35-39.9 12/17/2018 0 08/30/2020 Obesity 12/14/2018 08/30/2020 Class 3 severe obesity with serious comorbidity and body mass index (BMI) of 40.0 to 44.9 in adult 08/19/2018 08/30/2020 Post-operative state 05/26/2018 08/30/2020 Coronary artery disease 10/28/2017 05/12/19 23 Contusion of leg, left, sequela 04/30/2017 08/30/2020 Pain of foot 11/27/2016 08/30/2020 Encounter for screening colonoscopy 10/09/2016 08/30/2020 Overview: Added automatically from request for surgery [id number] Diarrhea 09/01/2013 08/30/2020 HTN (hypertension) 12/05/2011 10/14/2014 documented as of this encounter (statuses as of 07/12/2022) [facility] of Past illness Narrative* Problem Noted Date Resolved Date Osteoarthritis of right hip, unspecified osteoar thritis type 07/09/2022 07/09/2022 Obesity, Class II, BMI 35-39.9 12/17/2018 0 08/30/2020 Obesity 12/14/2018 08/30/2020 Class 3 severe obesity with serious comorbidity and body mass index (BMI) of 40.0 to 44.9 in adult 08/19/2018 08/30/2020 Post-operative state 05/26/2018 08/30/2020 Coronary artery disease 10/28/2017 05/12/19 23 Contusion of leg, left, sequela 04/30/2017 08/30/2020 Pain of foot 11/27/2016 08/30/2020 Encounter for screening colonoscopy 10/09/2016 08/30/2020 Overview: Added automatically from request for surgery [id number] Diarrhea 09/01/2013 08/30/2020 HTN (hypertension) 12/05/2011 10/14/2014 documented as of this encounter (statuses as of 07/12/2022) [facility] of Past illness Narrative* Problem Noted Date Resolved Date Osteoarthritis of right hip, unspecified osteoar thritis type 07/09/2022 07/09/2022 Obesity, Class II, BMI 35-39.9 12/17/2018 0 08/30/2020 Obesity 12/14/2018 08/30/2020 Class 3 severe obesity with serious comorbidity and body mass index (BMI) of 40.0 to 44.9 in adult 08/19/2018 08/30/2020 Post-operative state 05/26/2018 08/30/2020 Coronary artery disease 10/28/2017 05/12/19 23 Contusion of leg, left, sequela 04/30/2017 08/30/2020 Pain of foot 11/27/2016 08/30/2020 Encounter for screening colonoscopy 10/09/2016 08/30/2020 Overview: Added automatically from request for surgery [id number] Diarrhea 09/01/2013 08/30/2020 HTN (hypertension) 12/05/2011 10/14/2014 documented as of this encounter (statuses as of 07/15/2022) [facility] of Past illness Narrative* Problem Noted Date Resolved Date Osteoarthritis of right hip, unspecified osteoar thritis type 07/09/2022 07/09/2022 Obesity, Class II, BMI 35-39.9 12/17/2018 0 08/30/2020 Obesity 12/14/2018 08/30/2020 Class 3 severe obesity with serious comorbidity and body mass index (BMI) of 40.0 to 44.9 in adult 08/19/2018 08/30/2020 Post-operative state 05/26/2018 08/30/2020 Coronary artery disease 10/28/2017 05/12/19 23 Contusion of leg, left, sequela 04/30/2017 08/30/2020 Pain of foot 11/27/2016 08/30/2020 Encounter for screening colonoscopy 10/09/2016 08/30/2020 Overview: Added automatically from request for surgery [id number] Diarrhea 09/01/2013 08/30/2020 HTN (hypertension) 12/05/2011 10/14/2014 documented as of this encounter (statuses as of 07/15/2022) [facility] of Past illness Narrative* Problem Noted Date Resolved Date Osteoarthritis of right hip, unspecified osteoar thritis type 07/09/2022 07/09/2022 Obesity, Class II, BMI 35-39.9 12/17/2018 0 08/30/2020 Obesity 12/14/2018 08/30/2020 Class 3 severe obesity with serious comorbidity and body mass index (BMI) of 40.0 to 44.9 in adult 08/19/2018 08/30/2020 Post-operative state 05/26/2018 08/30/2020 Coronary artery disease 10/28/2017 05/12/19 23 Contusion of leg, left, sequela 04/30/2017 08/30/2020 Pain of foot 11/27/2016 08/30/2020 Encounter for screening colonoscopy 10/09/2016 08/30/2020 Overview: Added automatically from request for surgery [id number] Diarrhea 09/01/2013 08/30/2020 HTN (hypertension) 12/05/2011 10/14/2014 documented as of this encounter (statuses as of 07/15/2022) [facility] of Past illness Narrative* Problem Noted Date Resolved Date Osteoarthritis of right hip, unspecified osteoar thritis type 07/09/2022 07/09/2022 Obesity, Class II, BMI 35-39.9 12/17/2018 0 08/30/2020 Obesity 12/14/2018 08/30/2020 Class 3 severe obesity with serious comorbidity and body mass index (BMI) of 40.0 to 44.9 in adult 08/19/2018 08/30/2020 Post-operative state 05/26/2018 08/30/2020 Coronary artery disease 10/28/2017 05/12/19 23 Contusion of leg, left, sequela 04/30/2017 08/30/2020 Pain of foot 11/27/2016 08/30/2020 Encounter for screening colonoscopy 10/09/2016 08/30/2020 Overview: Added automatically from request for surgery [id number] Diarrhea 09/01/2013 08/30/2020 HTN (hypertension) 12/05/2011 10/14/2014 documented as of this encounter (statuses as of 07/17/2022) [facility] Narrative* Problem Noted Date Resolved Date Osteoarthritis of right hip, unspecified osteoar thritis type 07/09/2022 07/09/2022 Obesity, Class II, BMI 35-39.9 12/17/2018 0 08/30/2020 Obesity 12/14/2018 08/30/2020 Class 3 severe obesity with serious comorbidity and body mass index (BMI) of 40.0 to 44.9 in adult 08/19/2018 08/30/2020 Post-operative state 05/26/2018 08/30/2020 Coronary artery disease 10/28/2017 05/12/19 23 Contusion of leg, left, sequela 04/30/2017 08/30/2020 Pain of foot 11/27/2016 08/30/2020 Encounter for screening colonoscopy 10/09/2016 08/30/2020 Overview: Added automatically from request for surgery [id number] Diarrhea 09/01/2013 08/30/2020 HTN (hypertension) 12/05/2011 10/14/2014 documented as of this encounter (statuses as of 07/22/2022) [facility] Narrative* Problem Noted Date Resolved Date Osteoarthritis of right hip, unspecified osteoar thritis type 07/09/2022 07/09/2022 Obesity, Class II, BMI 35-39.9 12/17/2018 0 08/30/2020 Obesity 12/14/2018 08/30/2020 Class 3 severe obesity with serious comorbidity and body mass index (BMI) of 40.0 to 44.9 in adult 08/19/2018 08/30/2020 Post-operative state 05/26/2018 08/30/2020 Coronary artery disease 10/28/2017 05/12/19 23 Contusion of leg, left, sequela 04/30/2017 08/30/2020 Pain of foot 11/27/2016 08/30/2020 Encounter for screening colonoscopy 10/09/2016 08/30/2020 Overview: Added automatically from request for surgery [id number] Diarrhea 09/01/2013 08/30/2020 HTN (hypertension) 12/05/2011 10/14/2014 documented as of this encounter (statuses as of 07/23/2022) [facility] Narrative* Problem Noted Date Resolved Date Osteoarthritis of right hip, unspecified osteoar thritis type 07/09/2022 07/09/2022 Obesity, Class II, BMI 35-39.9 12/17/2018 0 08/30/2020 Obesity 12/14/2018 08/30/2020 Class 3 severe obesity with serious comorbidity and body mass index (BMI) of 40.0 to 44.9 in adult 08/19/2018 08/30/2020 Post-operative state 05/26/2018 08/30/2020 Coronary artery disease 10/28/2017 05/12/19 23 Contusion of leg, left, sequela 04/30/2017 08/30/2020 Pain of foot 11/27/2016 08/30/2020 Encounter for screening colonoscopy 10/09/2016 08/30/2020 Overview: Added automatically from request for surgery [id number] Diarrhea 09/01/2013 08/30/2020 HTN (hypertension) 12/05/2011 10/14/2014 documented as of this encounter (statuses as of 07/25/2022) [facility] of Past illness Narrative* Problem Noted Date Resolved Date Osteoarthritis of right hip, unspecified osteoar thritis type 07/09/2022 07/09/2022 Obesity, Class II, BMI 35-39.9 12/17/2018 0 08/30/2020 Obesity 12/14/2018 08/30/2020 Class 3 severe obesity with serious comorbidity and body mass index (BMI) of 40.0 to 44.9 in adult 08/19/2018 08/30/2020 Post-operative state 05/26/2018 08/30/2020 Coronary artery disease 10/28/2017 05/12/19 23 Contusion of leg, left, sequela 04/30/2017 08/30/2020 Pain of foot 11/27/2016 08/30/2020 Encounter for screening colonoscopy 10/09/2016 08/30/2020 Overview: Added automatically from request for surgery [id number] Diarrhea 09/01/2013 08/30/2020 HTN (hypertension) 12/05/2011 10/14/2014 documented as of this encounter (statuses as of 07/29/2022) [facility] of [facility] Narrative* Problem Noted Date Resolved Date Osteoarthritis of right hip, unspecified osteoar thritis type 07/09/2022 07/09/2022 Obesity, Class II, BMI 35-39.9 12/17/2018 0 08/30/2020 Obesity 12/14/2018 08/30/2020 Class 3 severe obesity with serious comorbidity and body mass index (BMI) of 40.0 to 44.9 in adult 08/19/2018 08/30/2020 Post-operative state 05/26/2018 08/30/2020 Coronary artery disease 10/28/2017 05/12/19 23 Contusion of leg, left, sequela 04/30/2017 08/30/2020 Pain of foot 11/27/2016 08/30/2020 Encounter for screening colonoscopy 10/09/2016 08/30/2020 Overview: Added automatically from request for surgery [id number] Diarrhea 09/01/2013 08/30/2020 HTN (hypertension) 12/05/2011 10/14/2014 documented as of this encounter (statuses as of 07/29/2022) [facility] illness Narrative* Problem Noted Date Resolved Date Osteoarthritis of right hip, unspecified osteoar thritis type 07/09/2022 07/09/2022 Obesity, Class II, BMI 35-39.9 12/17/2018 0 08/30/2020 Obesity 12/14/2018 08/30/2020 Class 3 severe obesity with serious comorbidity and body mass index (BMI) of 40.0 to 44.9 in adult 08/19/2018 08/30/2020 Post-operative state 05/26/2018 08/30/2020 Coronary artery disease 10/28/2017 05/12/19 23 Contusion of leg, left, sequela 04/30/2017 08/30/2020 Pain of foot 11/27/2016 08/30/2020 Encounter for screening colonoscopy 10/09/2016 08/30/2020 Overview: Added automatically from request for surgery [id number] Diarrhea 09/01/2013 08/30/2020 HTN (hypertension) 12/05/2011 10/14/2014 documented as of this encounter (statuses as of 07/31/2022) [facility] of Past illness Narrative* Problem Noted Date Resolved Date Osteoarthritis of right hip, unspecified osteoar thritis type 07/09/2022 07/09/2022 Obesity, Class II, BMI 35-39.9 12/17/2018 0 08/30/2020 Obesity 12/14/2018 08/30/2020 Class 3 severe obesity with serious comorbidity and body mass index (BMI) of 40.0 to 44.9 in adult 08/19/2018 08/30/2020 Post-operative state 05/26/2018 08/30/2020 Coronary artery disease 10/28/2017 05/12/19 23 Contusion of leg, left, sequela 04/30/2017 08/30/2020 Pain of foot 11/27/2016 08/30/2020 Encounter for screening colonoscopy 10/09/2016 08/30/2020 Overview: Added automatically from request for surgery [id number] Diarrhea 09/01/2013 08/30/2020 HTN (hypertension) 12/05/2011 10/14/2014 documented as of this encounter (statuses as of 07/31/2022) [facility] of Past illness Narrative* Problem Noted Date Resolved Date Osteoarthritis of right hip, unspecified osteoar thritis type 07/09/2022 07/09/2022 Obesity, Class II, BMI 35-39.9 12/17/2018 0 08/30/2020 Obesity 12/14/2018 08/30/2020 Class 3 severe obesity with serious comorbidity and body mass index (BMI) of 40.0 to 44.9 in adult 08/19/2018 08/30/2020 Post-operative state 05/26/2018 08/30/2020 Coronary artery disease 10/28/2017 05/12/19 23 Contusion of leg, left, sequela 04/30/2017 08/30/2020 Pain of foot 11/27/2016 08/30/2020 Encounter for screening colonoscopy 10/09/2016 08/30/2020 Overview: Added automatically from request for surgery [id number] [facility] 09/01/2013 08/30/2020 HTN (hypertension) 12/05/2011 10/14/2014 documented as of this encounter (statuses as of 08/19/2022) [facility] of Past illness Narrative* Problem Noted Date Resolved Date Osteoarthritis of right hip, unspecified osteoar thritis type 07/09/2022 07/09/2022 Obesity, Class II, BMI 35-39.9 12/17/2018 0 08/30/2020 Obesity 12/14/2018 08/30/2020 Class 3 severe obesity with serious comorbidity and body mass index (BMI) of 40.0 to 44.9 in adult 08/19/2018 08/30/2020 Post-operative state 05/26/2018 08/30/2020 Coronary artery disease 10/28/2017 05/12/19 23 Contusion of leg, left, sequela 04/30/2017 08/30/2020 Pain of foot 11/27/2016 08/30/2020 Encounter for screening colonoscopy 10/09/2016 08/30/2020 Overview: Added automatically from request for surgery [id number] Diarrhea 09/01/2013 08/30/2020 HTN (hypertension) 12/05/2011 10/14/2014 documented as of this encounter (statuses as of 08/20/2022) [facility] of Past illness Narrative* Problem Noted Date Resolved Date Osteoarthritis of right hip, unspecified osteoar thritis type 07/09/2022 07/09/2022 Obesity, Class II, BMI 35-39.9 12/17/2018 0 08/30/2020 Obesity 12/14/2018 08/30/2020 Class 3 severe obesity with serious comorbidity and body mass index (BMI) of 40.0 to 44.9 in adult 08/19/2018 08/30/2020 Post-operative state 05/26/2018 08/30/2020 Coronary artery disease 10/28/2017 05/12/19 23 Contusion of leg, left, sequela 04/30/2017 08/30/2020 Pain of foot 11/27/2016 08/30/2020 Encounter for screening colonoscopy 10/09/2016 08/30/2020 Overview: Added automatically from request for surgery [id number] Diarrhea 09/01/2013 08/30/2020 HTN (hypertension) 12/05/2011 10/14/2014 documented as of this encounter (statuses as of 08/21/2022) [facility] of Past illness Narrative* Problem Noted Date Resolved Date Osteoarthritis of right hip, unspecified osteoar thritis type 07/09/2022 07/09/2022 Obesity, Class II, BMI 35-39.9 12/17/2018 0 08/30/2020 Obesity 12/14/2018 08/30/2020 Class 3 severe obesity with serious comorbidity and body mass index (BMI) of 40.0 to 44.9 in adult 08/19/2018 08/30/2020 Post-operative state 05/26/2018 08/30/2020 Coronary artery disease 10/28/2017 05/12/19 23 Contusion of leg, left, sequela 04/30/2017 08/30/2020 Pain of foot 11/27/2016 08/30/2020 Encounter for screening colonoscopy 10/09/2016 08/30/2020 Overview: Added automatically from request for surgery [id number] Diarrhea 09/01/2013 08/30/2020 HTN (hypertension) 12/05/2011 10/14/2014 documented as of this encounter (statuses as of 09/17/2022) [facility] Past illness Narrative* Problem Noted Date Resolved Date Osteoarthritis of right hip, unspecified osteoar thritis type 07/09/2022 07/09/2022 Obesity, Class II, BMI 35-39.9 12/17/2018 0 08/30/2020 Obesity 12/14/2018 08/30/2020 Class 3 severe obesity with serious comorbidity and body mass index (BMI) of 40.0 to 44.9 in adult 08/19/2018 08/30/2020 Post-operative state 05/26/2018 08/30/2020 Coronary artery disease 10/28/2017 05/12/19 23 Contusion of leg, left, sequela 04/30/2017 08/30/2020 Pain of foot 11/27/2016 08/30/2020 Encounter for screening colonoscopy 10/09/2016 08/30/2020 Overview: Added automatically from request for surgery [id number] Diarrhea 09/01/2013 08/30/2020 HTN (hypertension) 12/05/2011 10/14/2014 documented as of this encounter (statuses as of 09/19/2022) [facility] Narrative* Problem Noted Date Resolved Date Osteoarthritis of right hip, unspecified osteoar thritis type 07/09/2022 07/09/2022 Obesity, Class II, BMI 35-39.9 12/17/2018 0 08/30/2020 Obesity 12/14/2018 08/30/2020 Class 3 severe obesity with serious comorbidity and body mass index (BMI) of 40.0 to 44.9 in adult 08/19/2018 08/30/2020 Post-operative state 05/26/2018 08/30/2020 Coronary artery disease 10/28/2017 05/12/19 23 Contusion of leg, left, sequela 04/30/2017 08/30/2020 Pain of foot 11/27/2016 08/30/2020 Encounter for screening colonoscopy 10/09/2016 08/30/2020 Overview: Added automatically from request for surgery [id number] Diarrhea 09/01/2013 08/30/2020 HTN (hypertension) 12/05/2011 10/14/2014 documented as of this encounter (statuses as of 09/19/2022) [facility] of Past illness Narrative* Problem Noted Date Resolved Date Osteoarthritis of right hip, unspecified osteoar thritis type 07/09/2022 07/09/2022 Obesity, Class II, BMI 35-39.9 12/17/2018 0 08/30/2020 Obesity 12/14/2018 08/30/2020 Class 3 severe obesity with serious comorbidity and body mass index (BMI) of 40.0 to 44.9 in adult 08/19/2018 08/30/2020 Post-operative state 05/26/2018 08/30/2020 Coronary artery disease 10/28/2017 05/12/19 23 Contusion of leg, left, sequela 04/30/2017 08/30/2020 Pain of foot 11/27/2016 08/30/2020 Encounter for screening colonoscopy 10/09/2016 08/30/2020 Overview: Added automatically from request for surgery [id number] Diarrhea 09/01/2013 08/30/2020 HTN (hypertension) 12/05/2011 10/14/2014 documented as of this encounter (statuses as of 09/20/2022) [facility]-19-2023 History of Past illness Narrative* Problem Noted Date Resolved Date Osteoarthritis of right hip, unspecified osteoar thritis type 07/09/2022 07/09/2022 Obesity, Class II, BMI 35-39.9 12/17/2018 0 08/30/2020 Obesity 12/14/2018 08/30/2020 Class 3 severe obesity with serious comorbidity and body mass index (BMI) of 40.0 to 44.9 in adult 08/19/2018 08/30/2020 Post-operative state 05/26/2018 08/30/2020 Coronary artery disease 10/28/2017 05/12/19 23 Contusion of leg, left, sequela 04/30/2017 08/30/2020 Pain of foot 11/27/2016 08/30/2020 Encounter for screening colonoscopy 10/09/2016 08/30/2020 Overview: Added automatically from request for surgery [id number] Diarrhea 09/01/2013 08/30/2020 HTN (hypertension) 12/05/2011 10/14/2014 documented as of this encounter (statuses as of 09/23/2022) [facility]2023 History of Past illness Narrative* Problem Noted Date Resolved Date Osteoarthritis of right hip, unspecified osteoar thritis type 07/09/2022 07/09/2022 Obesity, Class II, BMI 35-39.9 12/17/2018 0 08/30/2020 Obesity 12/14/2018 08/30/2020 Class 3 severe obesity with serious comorbidity and body mass index (BMI) of 40.0 to 44.9 in adult 08/19/2018 08/30/2020 Post-operative state 05/26/2018 08/30/2020 Coronary artery disease 10/28/2017 05/12/19 23 Contusion of leg, left, sequela 04/30/2017 08/30/2020 Pain of foot 11/27/2016 08/30/2020 Encounter for screening colonoscopy 10/09/2016 08/30/2020 Overview: Added automatically from request for surgery [id number] Diarrhea 09/01/2013 08/30/2020 HTN (hypertension) 12/05/2011 10/14/2014 documented as of this encounter (statuses as of 09/25/2022) [address]19-2023 History of Past illness Narrative* Problem Noted Date Resolved Date Osteoarthritis of right hip, unspecified osteoar thritis type 07/09/2022 07/09/2022 Obesity, Class II, BMI 35-39.9 12/17/2018 0 08/30/2020 Obesity 12/14/2018 08/30/2020 Class 3 severe obesity with serious comorbidity and body mass index (BMI) of 40.0 to 44.9 in adult 08/19/2018 08/30/2020 Post-operative state 05/26/2018 08/30/2020 Coronary artery disease 10/28/2017 05/12/19 23 Contusion of leg, left, sequela 04/30/2017 08/30/2020 Pain of foot 11/27/2016 08/30/2020 Encounter for screening colonoscopy 10/09/2016 08/30/2020 Overview: Added automatically from request for surgery [id number] Diarrhea 09/01/2013 08/30/2020 HTN (hypertension) 12/05/2011 10/14/2014 documented as of this encounter (statuses as of 09/25/2022) [facility]2023 History of Past illness Narrative* Problem Noted Date Resolved Date Osteoarthritis of right hip, unspecified osteoar thritis type 07/09/2022 07/09/2022 Obesity, Class II, BMI 35-39.9 12/17/2018 0 08/30/2020 Obesity 12/14/2018 08/30/2020 Class 3 severe obesity with serious comorbidity and body mass index (BMI) of 40.0 to 44.9 in adult 08/19/2018 08/30/2020 Post-operative state 05/26/2018 08/30/2020 Coronary artery disease 10/28/2017 05/12/19 Contusion of leg, left, sequela 04/30/2017 08/30/2020 Pain of foot 11/27/2016 08/30/2020 Encounter for screening colonoscopy 10/09/2016 08/30/2020 Overview: Added automatically from request for surgery [id number] Diarrhea 09/01/2013 08/30/2020 HTN (hypertension) 12/05/2011 10/14/2014 documented as of this encounter (statuses as of 09/26/2022) [place] [address]-19-2023 History of Past illness Narrative* Problem Noted Date Diagnosed Date Resolved Date Osteoarthritis of right hip, unspecified osteoarthritis type 07/09/2022 07/09/2022 Obesity, Class II, BMI 35-39.9 12/17/2018 08/30/2020 Obesity 12/14/2018 08/30/2020 Class 3 severe obesity with serious comorbidity and body mass index (BMI) of 40.0 to 44.9 in adult 08/19/2018 08/30/2020 Post-operative state 05/26/2018 021 Coronary artery disease 10/28/201704/24 Contusion of leg, left, sequela 04/30/2017 08/30/2020 Pain of foot 11/27/2016 08/30/2020 Encounter for screening colonoscopy 10/09/2016 08/30/2020 Overview: Added automatically from request for surgery [id number] Diarrhea 09/01/2013 08/30/2020 HTN (hypertension) 12/05/2011 5 documented as of this encounter (statuses as of 09/27/2022) [facility]2023 History of Past illness Narrative* Problem Noted Date Diagnosed Date Resolved Date Osteoarthritis of right hip, unspecified osteoarthritis type 07/09/2022 07/09/2022 Obesity, Class II, BMI 35-39.9 12/17/2018 08/30/2020 Obesity 12/14/2018 08/30/2020 Class 3 severe obesity with serious comorbidity and body mass index (BMI) of 40.0 to 44.9 in adult 08/19/2018 08/30/2020 Post-operative state 05/26/2018 021 Coronary artery disease 10/28/201704/24 Contusion of leg, left, sequela 04/30/2017 08/30/2020 Pain of foot 11/27/2016 08/30/2020 Encounter for screening colonoscopy 10/09/2016 08/30/2020 Overview: Added automatically from request for surgery [id number] Diarrhea 09/01/2013 08/30/2020 HTN (hypertension) 12/05/2011 5 documented as of this encounter (statuses as of 09/28/2022) [facility]2023 History of Past illness Narrative* Problem Noted Date Diagnosed Date Resolved Date Osteoarthritis of right hip, unspecified osteoarthritis type 07/09/2022 07/09/2022 Obesity, Class II, BMI 35-39.9 12/17/2018 08/30/2020 Obesity 12/14/2018 08/30/2020 Class 3 severe obesity with serious comorbidity and body mass index (BMI) of 40.0 to 44.9 in adult 08/19/2018 08/30/2020 Post-operative state 05/26/2018 021 Coronary artery disease 10/28/201704/24 Contusion of leg, left, sequela 04/30/2017 08/30/2020 Pain of foot 11/27/2016 08/30/2020 Encounter for screening colonoscopy 10/09/2016 08/30/2020 Overview: Added automatically from request for surgery [id number] Diarrhea 09/01/2013 08/30/2020 HTN (hypertension) 12/05/2011 5 documented as of this encounter (statuses as of 09/29/2022) [facility]2023 History of Past illness Narrative* Problem Noted Date Diagnosed Date Resolved Date Osteoarthritis of right hip, unspecified osteoarthritis type 07/09/2022 07/09/2022 Obesity, Class II, BMI 35-39.9 12/17/2018 08/30/2020 Obesity 12/14/2018 08/30/2020 Class 3 severe obesity with serious comorbidity and body mass index (BMI) of 40.0 to 44.9 in adult 08/19/2018 08/30/2020 Post-operative state 05/26/2018 021 Coronary artery disease 10/28/201704/24 Contusion of leg, left, sequela 04/30/2017 08/30/2020 Pain of foot 11/27/2016 08/30/2020 Encounter for screening colonoscopy 10/09/2016 08/30/2020 Overview: Added automatically from request for surgery [id number] Diarrhea 09/01/2013 08/30/2020 HTN (hypertension) 12/05/2011 5 documented as of this encounter (statuses as of 09/29/2022) [facility]19[facility]2023 History of Past illness Narrative* Problem Noted Date Diagnosed Date Resolved Date Osteoarthritis of right hip, unspecified osteoarthritis type 07/09/2022 07/09/2022 Obesity, Class II, BMI 35-39.9 12/17/2018 08/30/2020 Obesity 12/14/2018 08/30/2020 Class 3 severe obesity with serious comorbidity and body mass index (BMI) of 40.0 to 44.9 in adult 08/19/2018 08/30/2020 Post-operative state 05/26/2018 021 Coronary artery disease 10/28/201704/24 Contusion of leg, left, sequela 04/30/2017 08/30/2020 Pain of foot 11/27/2016 08/30/2020 Encounter for screening colonoscopy 10/09/2016 08/30/2020 Overview: Added automatically from request for surgery [id number] Diarrhea 09/01/2013 08/30/2020 HTN (hypertension) 12/05/2011 5 documented as of this encounter (statuses as of 09/30/2022) [facility]2023 History of Past illness Narrative* Problem Noted Date Diagnosed Date Resolved Date Osteoarthritis of right hip, unspecified osteoarthritis type 07/09/2022 07/09/2022 Obesity, Class II, BMI 35-39.9 12/17/2018 08/30/2020 Obesity 12/14/2018 08/30/2020 Class 3 severe obesity with serious comorbidity and body mass index (BMI) of 40.0 to 44.9 in adult 08/19/2018 08/30/2020 Post-operative state 05/26/2018 021 Coronary artery disease 10/28/201704/24 Contusion of leg, left, sequela 04/30/2017 08/30/2020 Pain of foot 11/27/2016 08/30/2020 Encounter for screening colonoscopy 10/09/2016 08/30/2020 Overview: Added automatically from request for surgery [id number] Diarrhea 09/01/2013 08/30/2020 HTN (hypertension) 12/05/2011 5 documented as of this encounter (statuses as of 10/01/2022) [facility]2023 History of Past illness Narrative* Problem Noted Date Diagnosed Date Resolved Date Osteoarthritis of right hip, unspecified osteoarthritis type 07/09/2022 07/09/2022 Obesity, Class II, BMI 35-39.9 12/17/2018 08/30/2020 Obesity 12/14/2018 08/30/2020 Class 3 severe obesity with serious comorbidity and body mass index (BMI) of 40.0 to 44.9 in adult 08/19/2018 08/30/2020 Post-operative state 05/26/2018 021 Coronary artery disease 10/28/201704/24 Contusion of leg, left, sequela 04/30/2017 08/30/2020 Pain of foot 11/27/2016 08/30/2020 Encounter for screening colonoscopy 10/09/2016 08/30/2020 Overview: Added automatically from request for surgery [id number] Diarrhea 09/01/2013 08/30/2020 HTN (hypertension) 12/05/2011 5 documented as of this encounter (statuses as of 10/01/2022) [facility]2023 History of Past illness Narrative* Problem Noted Date Diagnosed Date Resolved Date Osteoarthritis of right hip, unspecified osteoarthritis type 07/09/2022 07/09/2022 Obesity, Class II, BMI 35-39.9 12/17/2018 08/30/2020 Obesity 12/14/2018 08/30/2020 Class 3 severe obesity with serious comorbidity and body mass index (BMI) of 40.0 to 44.9 in adult 08/19/2018 08/30/2020 Post-operative state 05/26/2018 021 Coronary artery disease 10/28/2017 02/2 Contusion of leg, left, sequela 04/30/2017 08/30/2020 Pain of foot 11/27/2016 08/30/2020 Encounter for screening colonoscopy 10/09/2016 08/30/2020 Overview: Added automatically from request for surgery [id number] Diarrhea 09/01/2013 08/30/2020 HTN (hypertension) 12/05/2011 5 documented as of this encounter (statuses as of 10/03/2022) [facility]2023 History of Past illness Narrative* Problem Noted Date Diagnosed Date Resolved Date Osteoarthritis of right hip, unspecified osteoarthritis type 07/09/2022 07/09/2022 Obesity, Class II, BMI 35-39.9 12/17/2018 08/30/2020 Obesity 12/14/2018 08/30/2020 Class 3 severe obesity with serious comorbidity and body mass index (BMI) of 40.0 to 44.9 in adult 08/19/2018 08/30/2020 Post-operative state 05/26/2018 021 Coronary artery disease 10/28/201704/24 Contusion of leg, left, sequela 04/30/2017 08/30/2020 Pain of foot 11/27/2016 08/30/2020 Encounter for screening colonoscopy 10/09/2016 08/30/2020 Overview: Added automatically from request for surgery [id number] Diarrhea 09/01/2013 08/30/2020 HTN (hypertension) 12/05/2011 5 documented as of this encounter (statuses as of 10/09/2022) [facility]2023 History of Past illness Narrative* Problem Noted Date Diagnosed Date Resolved Date Osteoarthritis of right hip, unspecified osteoarthritis type 07/09/2022 07/09/2022 Obesity, Class II, BMI 35-39.9 12/17/2018 08/30/2020 Obesity 12/14/2018 08/30/2020 Class 3 severe obesity with serious comorbidity and body mass index (BMI) of 40.0 to 44.9 in adult 08/19/2018 08/30/2020 Post-operative state 05/26/2018 021 Coronary artery disease 10/28/201704/24 Contusion of leg, left, sequela 04/30/2017 08/30/2020 Pain of foot 11/27/2016 08/30/2020 Encounter for screening colonoscopy 10/09/2016 08/30/2020 Overview: Added automatically from request for surgery [id number] Diarrhea 09/01/2013 08/30/2020 HTN (hypertension) 12/05/2011 5 documented as of this encounter (statuses as of 10/09/2022) [facility]2023 History of Past illness Narrative* Problem Noted Date Diagnosed Date Resolved Date Osteoarthritis of right hip, unspecified osteoarthritis type 07/09/2022 07/09/2022 Obesity, Class II, BMI 35-39.9 12/17/2018 08/30/2020 Obesity 12/14/2018 08/30/2020 Class 3 severe obesity with serious comorbidity and body mass index (BMI) of 40.0 to 44.9 in adult 08/19/2018 08/30/2020 Post-operative state 05/26/2018 021 Coronary artery disease 10/28/201704/24 Contusion of leg, left, sequela 04/30/2017 08/30/2020 Pain of foot 11/27/2016 08/30/2020 Encounter for screening colonoscopy 10/09/2016 08/30/2020 Overview: Added automatically from request for surgery [id number] Diarrhea 09/01/2013 08/30/2020 HTN (hypertension) 12/05/2011 5 documented as of this encounter (statuses as of 10/16/2022) [facility]2023 History of Past illness Narrative* Problem Noted Date Diagnosed Date Resolved Date Osteoarthritis of right hip, unspecified osteoarthritis type 07/09/2022 07/09/2022 Obesity, Class II, BMI 35-39.9 12/17/2018 08/30/2020 Obesity 12/14/2018 08/30/2020 Class 3 severe obesity with serious comorbidity and body mass index (BMI) of 40.0 to 44.9 in adult 08/19/2018 08/30/2020 Post-operative state 05/26/2018 021 Coronary artery disease 10/28/201704/24 Contusion of leg, left, sequela 04/30/2017 08/30/2020 Pain of foot 11/27/2016 08/30/2020 Encounter for screening colonoscopy 10/09/2016 08/30/2020 Overview: Added automatically from request for surgery [id number] Diarrhea 09/01/2013 08/30/2020 HTN (hypertension) 12/05/2011 5 documented as of this encounter (statuses as of 10/23/2022) [facility]2023 History of Past illness Narrative* Problem Noted Date Diagnosed Date Resolved Date Osteoarthritis of right hip, unspecified osteoarthritis type 07/09/2022 07/09/2022 Obesity, Class II, BMI 35-39.9 12/17/2018 08/30/2020 Obesity 12/14/2018 08/30/2020 Class 3 severe obesity with serious comorbidity and body mass index (BMI) of 40.0 to 44.9 in adult 08/19/2018 08/30/2020 Post-operative state 05/26/2018 021 Coronary artery disease 10/28/201704/24 Contusion of leg, left, sequela 04/30/2017 08/30/2020 Pain of foot 11/27/2016 08/30/2020 Encounter for screening colonoscopy 10/09/2016 08/30/2020 Overview: Added automatically from request for surgery [id number] Diarrhea 09/01/2013 08/30/2020 HTN (hypertension) 12/05/2011 5 documented as of this encounter (statuses as of 10/29/2022) [facility]2023 History of Past illness Narrative* Problem Noted Date Diagnosed Date Resolved Date Osteoarthritis of right hip, unspecified osteoarthritis type 07/09/2022 07/09/2022 Obesity, Class II, BMI 35-39.9 12/17/2018 08/30/2020 Obesity 12/14/2018 08/30/2020 Class 3 severe obesity with serious comorbidity and body mass index (BMI) of 40.0 to 44.9 in adult 08/19/2018 08/30/2020 Post-operative state 05/26/2018 021 Coronary artery disease 10/28/201704/24 Contusion of leg, left, sequela 04/30/2017 08/30/2020 Pain of foot 11/27/2016 08/30/2020 Encounter for screening colonoscopy 10/09/2016 08/30/2020 Overview: Added automatically from request for surgery [id number] Diarrhea 09/01/2013 08/30/2020 HTN (hypertension) 12/05/2011 5 documented as of this encounter (statuses as of 11/01/2022) [facility]2023 History of Past illness Narrative* Problem Noted Date Diagnosed Date Resolved Date Osteoarthritis of right hip, unspecified osteoarthritis type 07/09/2022 07/09/2022 Obesity, Class II, BMI 35-39.9 12/17/2018 08/30/2020 Obesity 12/14/2018 08/30/2020 Class 3 severe obesity with serious comorbidity and body mass index (BMI) of 40.0 to 44.9 in adult 08/19/2018 08/30/2020 Post-operative state 05/26/2018 021 Coronary artery disease 10/28/201704/24 Contusion of leg, left, sequela 04/30/2017 08/30/2020 Pain of foot 11/27/2016 08/30/2020 Encounter for screening colonoscopy 10/09/2016 08/30/2020 Overview: Added automatically from request for surgery [id number] Diarrhea 09/01/2013 08/30/2020 HTN (hypertension) 12/05/2011 5 documented as of this encounter (statuses as of 11/04/2022) [facility] History of Past illness Narrative* Problem Noted Date Diagnosed Date Resolved Date Osteoarthritis of right hip, unspecified osteoarthritis type 07/09/2022 07/09/2022 Obesity, Class II, BMI 35-39.9 12/17/2018 08/30/2020 Obesity 12/14/2018 08/30/2020 Class 3 severe obesity with serious comorbidity and body mass index (BMI) of 40.0 to 44.9 in adult 08/19/2018 08/30/2020 Post-operative state 05/26/2018 021 Coronary artery disease 10/28/201704/24 Contusion of leg, left, sequela 04/30/2017 08/30/2020 Pain of foot 11/27/2016 08/30/2020 Encounter for screening colonoscopy 10/09/2016 08/30/2020 Overview: Added automatically from request for surgery [id number] Diarrhea 09/01/2013 08/30/2020 HTN (hypertension) 12/05/2011 5 documented as of this encounter (statuses as of 11/12/2022) [facility] History of Past illness Narrative* Problem Noted Date Diagnosed Date Resolved Date Osteoarthritis of right hip, unspecified osteoarthritis type 07/09/2022 07/09/2022 Obesity, Class II, BMI 35-39.9 12/17/2018 08/30/2020 Obesity 12/14/2018 08/30/2020 Class 3 severe obesity with serious comorbidity and body mass index (BMI) of 40.0 to 44.9 in adult 08/19/2018 08/30/2020 Post-operative state 05/26/2018 021 Coronary artery disease 10/28/201704/24 Contusion of leg, left, sequela 04/30/2017 08/30/2020 Pain of foot 11/27/2016 08/30/2020 Encounter for screening colonoscopy 10/09/2016 08/30/2020 Overview: Added automatically from request for surgery [id number] [facility] 09/01/2013 08/30/2020 HTN (hypertension) 12/05/2011 5 documented as of this encounter (statuses as of 11/13/2022) [facility] History of Past illness Narrative* Problem Noted Date Diagnosed Date Resolved Date Osteoarthritis of right hip, unspecified osteoarthritis type 07/09/2022 07/09/2022 Obesity, Class II, BMI 35-39.9 12/17/2018 08/30/2020 Obesity 12/14/2018 08/30/2020 Class 3 severe obesity with serious comorbidity and body mass index (BMI) of 40.0 to 44.9 in adult 08/19/2018 08/30/2020 Post-operative state 05/26/2018 021 Coronary artery disease 10/28/201704/24 Contusion of leg, left, sequela 04/30/2017 08/30/2020 Pain of foot 11/27/2016 08/30/2020 Encounter for screening colonoscopy 10/09/2016 08/30/2020 Overview: Added automatically from request for surgery [id number] [facility] 09/01/2013 08/30/2020 HTN (hypertension) 12/05/2011 5 documented as of this encounter (statuses as of 11/14/2022) [facility] History of Past illness Narrative* Problem Noted Date Diagnosed Date Resolved Date Osteoarthritis of right hip, unspecified osteoarthritis type 07/09/2022 07/09/2022 Obesity, Class II, BMI 35-39.9 12/17/2018 08/30/2020 Obesity 12/14/2018 08/30/2020 Class 3 severe obesity with serious comorbidity and body mass index (BMI) of 40.0 to 44.9 in adult 08/19/2018 08/30/2020 Post-operative state 05/26/2018 021 Coronary artery disease 10/28/201704/24 Contusion of leg, left, sequela 04/30/2017 08/30/2020 Pain of foot 11/27/2016 08/30/2020 Encounter for screening colonoscopy 10/09/2016 08/30/2020 Overview: Added automatically from request for surgery [id number] Diarrhea 09/01/2013 08/30/2020 HTN (hypertension) 12/05/2011 5 documented as of this encounter (statuses as of 11/18/2022) [facility] History of Past illness Narrative* Problem Noted Date Diagnosed Date Resolved Date Osteoarthritis of right hip, unspecified osteoarthritis type 07/09/2022 07/09/2022 Obesity, Class II, BMI 35-39.9 12/17/2018 08/30/2020 Obesity 12/14/2018 08/30/2020 Class 3 severe obesity with serious comorbidity and body mass index (BMI) of 40.0 to 44.9 in adult 08/19/2018 08/30/2020 Post-operative state 05/26/2018 021 Coronary artery disease 10/28/201704/24 Contusion of leg, left, sequela 04/30/2017 08/30/2020 Pain of foot 11/27/2016 08/30/2020 Encounter for screening colonoscopy 10/09/2016 08/30/2020 Overview: Added automatically from request for surgery [id number] Diarrhea 09/01/2013 08/30/2020 HTN (hypertension) 12/05/2011 5 documented as of this encounter (statuses as of 11/18/2022) [facility] History of Past illness Narrative* Problem Noted Date Diagnosed Date Resolved Date Osteoarthritis of right hip, unspecified osteoarthritis type 07/09/2022 07/09/2022 Obesity, Class II, BMI 35-39.9 12/17/2018 08/30/2020 Obesity 12/14/2018 08/30/2020 Class 3 severe obesity with serious comorbidity and body mass index (BMI) of 40.0 to 44.9 in adult 08/19/2018 08/30/2020 Post-operative state 05/26/2018 021 Coronary artery disease 10/28/201704/24 Contusion of leg, left, sequela 04/30/2017 08/30/2020 Pain of foot 11/27/2016 08/30/2020 Encounter for screening colonoscopy 10/09/2016 08/30/2020 Overview: Added automatically from request for surgery [id number] Diarrhea 09/01/2013 08/30/2020 HTN (hypertension) 12/05/2011 5 documented as of this encounter (statuses as of 11/20/2022) [facility] History of Past illness Narrative* Problem Noted Date Diagnosed Date Resolved Date Osteoarthritis of right hip, unspecified osteoarthritis type 07/09/2022 07/09/2022 Obesity, Class II, BMI 35-39.9 12/17/2018 08/30/2020 Obesity 12/14/2018 08/30/2020 Class 3 severe obesity with serious comorbidity and body mass index (BMI) of 40.0 to 44.9 in adult 08/19/2018 08/30/2020 Post-operative state 05/26/2018 021 Coronary artery disease 10/28/201704/24 Contusion of leg, left, sequela 04/30/2017 08/30/2020 Pain of foot 11/27/2016 08/30/2020 Encounter for screening colonoscopy 10/09/2016 08/30/2020 Overview: Added automatically from request for surgery [id number] Diarrhea 09/01/2013 08/30/2020 HTN (hypertension) 12/05/2011 5 documented as of this encounter (statuses as of 11/21/2022) [facility] History of Past illness Narrative* Problem Noted Date Diagnosed Date Resolved Date Osteoarthritis of right hip, unspecified osteoarthritis type 07/09/2022 07/09/2022 Obesity, Class II, BMI 35-39.9 12/17/2018 08/30/2020 Obesity 12/14/2018 08/30/2020 Class 3 severe obesity with serious comorbidity and body mass index (BMI) of 40.0 to 44.9 in adult 08/19/2018 08/30/2020 Post-operative state 05/26/2018 021 Coronary artery disease 10/28/201704/24 Contusion of leg, left, sequela 04/30/2017 08/30/2020 Pain of foot 11/27/2016 08/30/2020 Encounter for screening colonoscopy 10/09/2016 08/30/2020 Overview: Added automatically from request for surgery [id number] Diarrhea 09/01/2013 08/30/2020 HTN (hypertension) 12/05/2011 5 documented as of this encounter (statuses as of 11/26/2022) [facility] History of Past illness Narrative* Problem Noted Date Diagnosed Date Resolved Date Osteoarthritis of right hip, unspecified osteoarthritis type 07/09/2022 07/09/2022 Obesity, Class II, BMI 35-39.9 12/17/2018 08/30/2020 Obesity 12/14/2018 08/30/2020 Class 3 severe obesity with serious comorbidity and body mass index (BMI) of 40.0 to 44.9 in adult 08/19/2018 08/30/2020 Post-operative state 05/26/2018 021 Coronary artery disease 10/28/201704/24 Contusion of leg, left, sequela 04/30/2017 08/30/2020 Pain of foot 11/27/2016 08/30/2020 Encounter for screening colonoscopy 10/09/2016 08/30/2020 Overview: Added automatically from request for surgery [id number] Diarrhea 09/01/2013 08/30/2020 HTN (hypertension) 12/05/2011 5 documented as of this encounter (statuses as of 12/04/2022) [facility] History of Past illness Narrative* Problem Noted Date Diagnosed Date Resolved Date Osteoarthritis of right hip, unspecified osteoarthritis type 07/09/2022 07/09/2022 Obesity, Class II, BMI 35-39.9 12/17/2018 08/30/2020 Obesity 12/14/2018 08/30/2020 Class 3 severe obesity with serious comorbidity and body mass index (BMI) of 40.0 to 44.9 in adult 08/19/2018 08/30/2020 Post-operative state 05/26/2018 021 Coronary artery disease 10/28/201704/24 Contusion of leg, left, sequela 04/30/2017 08/30/2020 Pain of foot 11/27/2016 08/30/2020 Encounter for screening colonoscopy 10/09/2016 08/30/2020 Overview: Added automatically from request for surgery [id number] [facility] 09/01/2013 08/30/2020 HTN (hypertension) 12/05/2011 5 documented as of this encounter (statuses as of 12/20/2022) [facility] History of Past illness Narrative* Problem Noted Date Diagnosed Date Resolved Date Osteoarthritis of right hip, unspecified osteoarthritis type 07/09/2022 07/09/2022 Obesity, Class II, BMI 35-39.9 12/17/2018 08/30/2020 Obesity 12/14/2018 08/30/2020 Class 3 severe obesity with serious comorbidity and body mass index (BMI) of 40.0 to 44.9 in adult 08/19/2018 08/30/2020 Post-operative state 05/26/2018 021 Coronary artery disease 10/28/201704/24 Contusion of leg, left, sequela 04/30/2017 08/30/2020 Pain of foot 11/27/2016 08/30/2020 Encounter for screening colonoscopy 10/09/2016 08/30/2020 Overview: Added automatically from request for surgery [id number] [facility] 09/01/2013 08/30/2020 HTN (hypertension) 12/05/2011 5 documented as of this encounter (statuses as of 12/30/2022) [facility]04-19-2023 History of Past illness Narrative* Problem Noted Date Diagnosed Date Resolved Date Osteoarthritis of right hip, unspecified osteoarthritis type 07/09/2022 07/09/2022 Obesity, Class II, BMI 35-39.9 12/17/2018 08/30/2020 Obesity 12/14/2018 08/30/2020 Class 3 severe obesity with serious comorbidity and body mass index (BMI) of 40.0 to 44.9 in adult 08/19/2018 08/30/2020 Post-operative state 05/26/2018 021 Coronary artery disease 10/28/201704/24 Contusion of leg, left, sequela 04/30/2017 08/30/2020 Pain of foot 11/27/2016 08/30/2020 Encounter for screening colonoscopy 10/09/2016 08/30/2020 Overview: Added automatically from request for surgery [id number] [facility] 09/01/2013 08/30/2020 HTN (hypertension) 12/05/2011 5 documented as of this encounter (statuses as of 12/31/2022) [facility]20[facility] History of Past illness Narrative* Problem Noted Date Diagnosed Date Resolved Date Osteoarthritis of right hip, unspecified osteoarthritis type 07/09/2022 07/09/2022 Obesity, Class II, BMI 35-39.9 12/17/2018 08/30/2020 Obesity 12/14/2018 08/30/2020 Class 3 severe obesity with serious comorbidity and body mass index (BMI) of 40.0 to 44.9 in adult 08/19/2018 08/30/2020 Post-operative state 05/26/2018 021 Coronary artery disease 10/28/201704/24 Contusion of leg, left, sequela 04/30/2017 08/30/2020 Pain of foot 11/27/2016 08/30/2020 Encounter for screening colonoscopy 10/09/2016 08/30/2020 Overview: Added automatically from request for surgery [id number] [facility] 09/01/2013 08/30/2020 HTN (hypertension) 12/05/2011 5 documented as of this encounter (statuses as of 01/01/2023) [facility] History of Past illness Narrative* Problem Noted Date Diagnosed Date Resolved Date Osteoarthritis of right hip, unspecified osteoarthritis type 07/09/2022 07/09/2022 Obesity, Class II, BMI 35-39.9 12/17/2018 08/30/2020 Obesity 12/14/2018 08/30/2020 Class 3 severe obesity with serious comorbidity and body mass index (BMI) of 40.0 to 44.9 in adult 08/19/2018 08/30/2020 Post-operative state 05/26/2018 021 Coronary artery disease 10/28/201704/24 Contusion of leg, left, sequela 04/30/2017 08/30/2020 Pain of foot 11/27/2016 08/30/2020 Encounter for screening colonoscopy 10/09/2016 08/30/2020 Overview: Added automatically from request for surgery [id number] [facility] 09/01/2013 08/30/2020 HTN (hypertension) 12/05/2011 5 documented as of this encounter (statuses as of 01/01/2023) [facility] History of Past illness Narrative* Problem Noted Date Diagnosed Date Resolved Date Osteoarthritis of right hip, unspecified osteoarthritis type 07/09/2022 07/09/2022 Obesity, Class II, BMI 35-39.9 12/17/2018 08/30/2020 Obesity 12/14/2018 08/30/2020 Class 3 severe obesity with serious comorbidity and body mass index (BMI) of 40.0 to 44.9 in adult 08/19/2018 08/30/2020 Post-operative state 05/26/2018 021 Coronary artery disease 10/28/201704/24 Contusion of leg, left, sequela 04/30/2017 08/30/2020 Pain of foot 11/27/2016 08/30/2020 Encounter for screening colonoscopy 10/09/2016 08/30/2020 Overview: Added automatically from request for surgery [id number] Diarrhea 09/01/2013 08/30/2020 HTN (hypertension) 12/05/2011 5 documented as of this encounter (statuses as of 01/06/2023) [facility] History of Past illness Narrative* Problem Noted Date Diagnosed Date Resolved Date Osteoarthritis of right hip, unspecified osteoarthritis type 07/09/2022 07/09/2022 Obesity, Class II, BMI 35-39.9 12/17/2018 08/30/2020 Obesity 12/14/2018 08/30/2020 Class 3 severe obesity with serious comorbidity and body mass index (BMI) of 40.0 to 44.9 in adult 08/19/2018 08/30/2020 Post-operative state 05/26/2018 021 Coronary artery disease 10/28/201704/24 Contusion of leg, left, sequela 04/30/2017 08/30/2020 Pain of foot 11/27/2016 08/30/2020 Encounter for screening colonoscopy 10/09/2016 08/30/2020 Overview: Added automatically from request for surgery [id number] Diarrhea 09/01/2013 08/30/2020 HTN (hypertension) 12/05/2011 5 documented as of this encounter (statuses as of 01/06/2023) [facility] History of Past illness Narrative* Problem Noted Date Diagnosed Date Resolved Date Osteoarthritis of right hip, unspecified osteoarthritis type 07/09/2022 07/09/2022 Obesity, Class II, BMI 35-39.9 12/17/2018 08/30/2020 Obesity 12/14/2018 08/30/2020 Class 3 severe obesity with serious comorbidity and body mass index (BMI) of 40.0 to 44.9 in adult 08/19/2018 08/30/2020 Post-operative state 05/26/2018 021 Coronary artery disease 10/28/201704/24 Contusion of leg, left, sequela 04/30/2017 08/30/2020 Pain of foot 11/27/2016 08/30/2020 Encounter for screening colonoscopy 10/09/2016 08/30/2020 Overview: Added automatically from request for surgery [id number] Diarrhea 09/01/2013 08/30/2020 HTN (hypertension) 12/05/2011 5 documented as of this encounter (statuses as of 01/12/2023) [facility]20[facility] History of Past illness Narrative* Problem Noted Date Diagnosed Date Resolved Date Osteoarthritis of right hip, unspecified osteoarthritis type 07/09/2022 07/09/2022 Obesity, Class II, BMI 35-39.9 12/17/2018 08/30/2020 Obesity 12/14/2018 08/30/2020 Class 3 severe obesity with serious comorbidity and body mass index (BMI) of 40.0 to 44.9 in adult 08/19/2018 08/30/2020 Post-operative state 05/26/2018 021 Coronary artery disease 10/28/201704/24 Contusion of leg, left, sequela 04/30/2017 08/30/2020 Pain of foot 11/27/2016 08/30/2020 Encounter for screening colonoscopy 10/09/2016 08/30/2020 Overview: Added automatically from request for surgery [id number] Diarrhea 09/01/2013 08/30/2020 HTN (hypertension) 12/05/2011 5 documented as of this encounter (statuses as of 01/13/2023) [facility] History of Past illness Narrative* Problem Noted Date Diagnosed Date Resolved Date Osteoarthritis of right hip, unspecified osteoarthritis type 07/09/2022 07/09/2022 Obesity, Class II, BMI 35-39.9 12/17/2018 08/30/2020 Obesity 12/14/2018 08/30/2020 Class 3 severe obesity with serious comorbidity and body mass index (BMI) of 40.0 to 44.9 in adult 08/19/2018 08/30/2020 Post-operative state 05/26/2018 021 Coronary artery disease 10/28/201704/24 Contusion of leg, left, sequela 04/30/2017 08/30/2020 Pain of foot 11/27/2016 08/30/2020 Encounter for screening colonoscopy 10/09/2016 08/30/2020 Overview: Added automatically from request for surgery [id number] Diarrhea 09/01/2013 08/30/2020 HTN (hypertension) 12/05/2011 5 documented as of this encounter (statuses as of 01/15/2023) [facility] History of Past illness Narrative* Problem Noted Date Diagnosed Date Resolved Date Osteoarthritis of right hip, unspecified osteoarthritis type 07/09/2022 07/09/2022 Obesity, Class II, BMI 35-39.9 12/17/2018 08/30/2020 Obesity 12/14/2018 08/30/2020 Class 3 severe obesity with serious comorbidity and body mass index (BMI) of 40.0 to 44.9 in adult 08/19/2018 08/30/2020 Post-operative state 05/26/2018 021 Coronary artery disease 10/28/201704/24 Contusion of leg, left, sequela 04/30/2017 08/30/2020 Pain of foot 11/27/2016 08/30/2020 Encounter for screening colonoscopy 10/09/2016 08/30/2020 Overview: Added automatically from request for surgery [id number] Diarrhea 09/01/2013 08/30/2020 HTN (hypertension) 12/05/2011 5 documented as of this encounter (statuses as of 01/15/2023) [facility]-04[facility]2023 Instructions* Patient Instructions* Carolina Davila PA-C - 06/24/2022 8:07 PM EDT PATIENT PREOPERATIVE INSTRUCTIONS Donavon Patricia MD has scheduled you for your procedure at this surgery center: [facility]: [phone] -- [address] [place] [id number]. Please read below carefully for your personalized instructions. Dietary Restrictions: - No solid food after midnight. - You may have 12 ounces of clear liquids (water, clear juices such as apple juice or gatorade, carbonated beverages, clear tea, black coffee, jello) until 2 hours before scheduled arrival at facility. Medications: Unless instructed differently below, stay on all of your medications until your surgery. Approved medications to take the morning of surgery with a sip of water: Mupirocin ointment, Synthroid, Nexium, Wellbutrin, Prozac DO NOT TAKE YOUR Lisinopril THE NIGHT BEFORE OR MORNING OF SURGERY. - No diabetic medication the morning of surgery. If you start any new medications after today's visit, please contact the surgeon's office. Blood Thinning Medications: - Stop NSAIDS (Ibuprofen, Advil, Aleve, Motrin, Celebrex, Mobic, etc.) 7 days before surgery, as directed by your surgeon. - Stop Aspirin 7 days before surgery, as directed by your surgeon. - Stop Vitamin E, ALL multi-vitamins, herbals and dietary supplements 7 days before surgery. - You may take Tylenol (Acetaminophen) or any of your pain medications that do not contain aspirin or NSAIDS as needed. Important Reminders: - Candy, mints, and tobacco products are NOT permitted the morning of surgery. - Hearing aids, dentures and glasses may be worn the morning of surgery. - NO jewelry, body piercings, makeup, hairpins or contacts are to be worn the day of surgery. If you develop symptoms such as a fever, cold, or flu, or have other changes to your health within TWO DAYS of scheduled surgery or the morning of surgery, please contact the surgery center above. Personal Belongings: -Please have photo ID and insurance cards. -If you do not have a copy of advance directives on file with us, please bring a copy with you on the day of surgery. - Leave ALL valuables and money at home or with family members. For Outpatient Procedures: - YOU MUST HAVE A RESPONSIBLE SALES ADMINISTRATOR TAKE YOU HOME. A LIP CUTTER OR SAFE DEPOSIT BOX RENTAL CLERK CANNOT BE MADE A RESPONSIBLE SALES ADMINISTRATOR. - We recommend that a responsible person stays with you overnight to take care of you. - You cannot stay in a hotel alone after outpatient surgery. You will not be permitted to have yoursurgery, if you do not have someone to take care of you. Arrival Time for Surgery: - The Surgery Center or hospital where you are having surgery will call the afternoon before surgery (or Thursday for Thursday surgery) with a scheduled arrival time. - If you have not heard by 4 pm, please contact the surgery center above. Please be aware that emergency situations arise, which may delay or change your surgical time. If this happens, we will notify you as soon as possible and regret any inconvenience. If you already have an Advance Directive, please fax a copy to [phone] or email to for it to be added to your chart. If you do not have an Advance Directive, you can find the appropriate form and more information at [email or web address]. We recommend that youcomplete the Advance Directive form found on the website and bring it with you the day of your surgery. It can be witnessed and scanned into your chart that day. Carolina Davila PA-C [facility] History and physical note * Carolina Davila PA-C - 06/24/2022 7:30 PM EDT PREANESTHESIA CONSULT CLINIC TELEHEALTH VISIT Patient has been identified by name and date of : Yes This is a virtual visit using YouWeb video visit. It require patient-provider interaction for the medical decision making as documented below. Reason for contact: PACC visit Accompanied by: Self I have communicated my name and active licensure. The patient's identity and physical location wereverified at the time of this visit. Either the patient or their legal student services representative has been informed of the risks and benefits of and alternatives to treatment through a remote evaluation and consents to proceed with the evaluation remotely. Scheduled Surgery: ROBOTIC ASSISTED TOTAL HIP ARTHROPLASTY RIGHT 07/07/2022 Subjective CHIEF COMPLAINT: Patient presents with: Pre-Op Exam HPI: This is a 72 year old female who presents with OA of her right hip. She fractured this hip 10/2021 and underwent a closed reduction of the femoral neck with three cannulated screw fixation. She developed pain in this hip ~ 3 months ago that is intermittent, sharp and burning in nature, radiates to her right groin, and worsens with twisting motions, rolling over in bed, getting out of a car. Rest helps to alleviate the pain. She denies decreased ROM, recent trauma or injury. Ct from 06/17/2022 revealed: IMPRESSION: Right hip osteoarthritis, preoperative [place] CT protocol for robotic assisted total joint replacement. 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 Hypertensive kidney disease with stage 3 chronic kidney disease ([facility]) De Quervain's Tenosynovitis, Left Joint Stiffness of Hand, Left Metacarpophalangeal Joint Pain of Left Hand Finger Pain, Left Asthma Stage 3 Chronic Kidney Disease ([facility]) S/P Gastric Bypass Closed Displaced Fracture of Right Femoral Neck ([facility]) Hyponatremia Hip Fracture Requiring Operative Repair, Right, Closed, Initial Encounter ([facility]) Type 2 Diabetes Mellitus ([facility]) Renal Lesion PAST MEDICAL HISTORY Diagnosis Date Allergic rhinitis Arthritis [facility] orthopedics, knee Asthma CKD (chronic kidney disease) 11/01/2018 Class 3 severe obesity with serious comorbidity and body mass index (BMI) of 40.0 to 44.9 in adult ([facility]) 08/19/2018 Coronary artery disease 10/28/[address] Salazar Fracture of right hip ([facility]) GERD (gastroesophageal reflux disease) History of transfusion HTN (hypertension) Hypothyroidism Mixed hyperlipidemia NIDDM (non-insulin dependent 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) MARIBEL on CPAP CPAP 9Cm Osteoarthritis of hip Renal lesion 01/15/2015 Suggest renal US every 1-2 years per PCP or nephro. Snoring Type 2 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 with hyperglycemia, with long-term current use of insulin ([facility]) 1999 PAST SURGICAL HISTORY Procedure Laterality Date ABDOMINAL SURGERY HX COLONOSCOPY 11/05/2016 Tammi- divertiuclosis, internal hemorrhoids, repeat in 5 years COLONOSCOPY 04/02/2022 repeat in 5 years due to reported prior history of polyps COSMETIC ASSESSMENT EGD 11/05/2016 Tammi- gastritis EGD 09/08/2018 /Gastritis EGD 04/02/2020 EGD 04/02/2022 EYE SURGERY HX Bilateral cataract extraction 2009's GASTRECTOMY,PART DISTAL;W/GASTRODUODENOSTO GASTRIC BYPASS HX 12/13/2018 Laparoscopic Samina-en-Y gastric bypass JOINT REPLACEMENT HX OOPHORECTOMY PARTIAL OR TOTAL PAST SURGICAL HISTORY OF 2009 hemmroidectomy/sphincterectomy - Dr Nichole PAST SURGICAL HISTORY OF 2008 total left knee replacement PAST SURGICAL HISTORY OF 2003 partial right knee replacement PAST SURGICAL HISTORY OF 1990 total hysterectomy PAST SURGICAL HISTORY OF 2010 lDr Mansoor - [place] elbow fracture - traumatic. radial head replacement PAST SURGICAL HISTORY OF Bilateral 2016 hand surgery PAST SURGICAL HISTORY OF Left RELEASE CONTRACTURE DEQUERVAINS S INSERT PINN METAL NTRL HIP Right 11/17/2021 SKIN BIOPSY HX TUBAL LIGATION HX VAGINAL HYSTERECTOMY FAMILY HISTORY Problem Relation Age of Onset Diabetes Father other (Squamous cell ca) Father other (renal cell ca) Father 1999 other (htn) Father other (polio) Mother other (renal cell ca) Brother 2010 other (Thyroid Cancer) Sister other (thyroid disease) Sister ca Obesity Paternal Grandmother Obesity Daughter Thyroid Daughter Anesthesia Problems No Family History Social History Tobacco Use Smoking status: Former Packs/day: 1.50 Years: 22.00 Pack years: 33.00 Types: Cigarettes Quit date: 1989 Years since quittin.2 Smokeless tobacco: Never Vaping Use Vaping Use: Never used Substance Use Topics Alcohol use: Yes Comment: few times a year. mixed drinls/marcelino. 3 in sitting. Drug use: No Comment: denies tx for drug/alcohol abuse in the past. ALLERGIES Allergen Reactions Vicodin [Hydrocodon* Itching Pt not sure if she has an allergy but states she wants it documented. MEDICATIONS: Current Outpatient Medications Medication Sig diclofenac (VOLTAREN) 1 % topical gel Apply 4 g to affected area four times daily. levothyroxine (SYNTHROID) 100 mcg tablet Take 1 tablet by mouth once daily. traZODone (DESYREL) 100 mg tablet Take 2 tablets by mouth daily at bedtime. esomeprazole (NEXIUM) 40 mg capsule TAKE ONE CAPSULE BY MOUTH twice daily. glimepiride (AMARYL) 2 mg tablet Take 1 tablet by mouth daily with breakfast. buPROPion XL (WELLBUTRIN XL) 300 mg 24 hr tablet Take 1 tablet by mouth once daily. atorvastatin (LIPITOR) 20 mg tablet Take 1 tablet by mouth daily at bedtime. For cholesterol. dulaglutide (TRULICITY) 0.75 mg/0.5 mL pen injector Inject 0.75 mg subcutaneously one time a week. Inject dose once per week. Discard Pen After FLUoxetine (PROZAC) 20 mg capsule Take 3 capsules by mouth once daily. APPLE CIDER VINEGAR ORAL Take 1 capsule by mouth once daily. 450 mg capsule OTC NUTRITIONAL SUPPLEMENT Take 1 capsule by mouth once daily. Tumeric - 2000 mg capsule lisinopril (ZESTRIL, PRINIVIL) 10 mg tablet Take 1 tablet by mouth once daily. dicyclomine (BENTYL) 20 mg tablet Take 1 tablet by mouth before meals and at bedtime. calcium citrate/vitamin D3 (CALCIUM CITRATE + D ORAL) Take 1 tablet by mouth twice daily. MULTI-VITAMIN ORAL Take 1 tablet by mouth once daily. Takes bariatric multivitamin daily tiZANidine (ZANAFLEX) 4 mg tablet Take 1 tablet by mouth once daily. (Patient not taking: Reported on 06/24/2022) No current facility-administered medications for this visit. COVID VACCINATION STATUS: Fully vaccinated REVIEW OF SYSTEMS: Pain Assessment: General: No weight loss, malaise or fevers. 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 No neurological symptoms or problems. Respiratory: No current cough or dyspnea, or pneumonia in the past 6 weeks. +asthma- last used rescue inhaler ~ 3 months ago +former smoker +MARIBEL Cardiovascular: No angina, CHF, MD, cardiac surgery or stents. Denies rest pain, gangrene or revascularization/amputation for PVD. +HTN +hyperlipidemia +non obstructive CAD GI: No history of esophageal varices, recent ascites, or ETOH greater than 2 drinks per day. 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 : N/A, No LMP recorded. Patient has had a hysterectomy. Endocrine: Has not taken steroids within the past 30 days. +DM x 23 years +hypothyroid Hematology: No history of bleeding or clotting disorder. Pt is not taking anti- coagulation or platelet medications. No history of hematological symptoms or problems. Oncology: No history of CA metastasis, chemo within 30 days, or radiotherapy within 90 days. Has not lost 10% of body wt in 6 months. +h/o skin cancer Psych: +depression/ anxiety Musculoskeletal: Negative for back pain or muscle pain. +right knee pain +OA right hip- see HPI Skin: Negative for lesions, rash and itching. +recent rash right groin- patient treating with Nystatin cream and noted the rash has resolved Objective PHYSICAL EXAM: Ht 5' 2 (1.58m) Wt 160 lb (72.6kg) BMI 29.26 kg/(m^2). VIDEO EXAM: (if completed, performed via video enabled technology) GENERAL: alert and appropriate, in no distress, well-hydrated, well nourished, and happy, smiling, interactive SKIN: no rash noted HEAD: normocephalic, no abnormality or lesion noted EYES: no injection and visual acuity is grossly normal EARS: hearing grossly normal NOSE: external nose normal without rhinorrhea OROPHARYNX: moist mucus membranes NECK: full ROM, no cervical LNs noted RESPIRATORY: breathing non-labored CHEST: equal chest rise with normal respiratory effort HEART: regular rhythm per patient counting method EXTREMITIES: no patient reported lower extremity edema NEUROLOGIC: no obvious deficit Diagnostic tests reviewed for today's visit: Lab Value Units Date High Low HB 13.0 g/dL 05/29/2022 15.5 11.5 HCT 38.8 % 05/29/2022 46.0 36.0 WBC 8.11 k/uL 05/29/2022 11.00 3.70 PLT 413 k/uL 05/29/2022 400 150 NA 136 mmol/L 05/29/2022 144 136 K 4.5 mmol/L 05/29/2022 5.1 3.7 GLUC 86 mg/dL 05/29/2022 99 74 BUN 12 mg/dL 05/29/2022 21 7 CREAT 1.07 mg/dL 05/29/2022 0.96 0.58 PTSEC No results within date range. INR No results within date range. APTT No results within date range. ALT 38 U/L 01/29/2022 38 7 AST 39 U/L 01/29/2022 35 13 TBILI 0.2 mg/dL 01/29/2022 1.3 0.2 TSH 2.640 mIU/L 04/22/2022 4.200 0.270 Lab Value Units Date High Low HCGQT No results within date range. UHCG No results within date range. HCG, BODY* No results within date range. Lab Value Units Date High Low ABORHD No results within date range. ABSCREEN No results within date range. Hemoglobin A1C (%) Date Value 04/22/2022 6.0 01/29/2022 5.8 09/30/2021 6.1 07/29/2021 6.2 02/27/2021 6.6 10/19/2020 7.5 09/05/2020 7.4 01/24/2020 6.3 01/24/2020 6.3 Most recent labs Most recent imaging Most recent EKG 11/17/2021 in [facility]: Diagnosis: NORMAL SINUS RHYTHM NORMAL ECG NO PREVIOUS ECGS AVAILABLE Confirmed by MD DOSS GREGORY () on 11/18/2021 Most recent Echo from 2018 in [facility]: CONCLUSIONS: - Exam indication: Murmur - The left ventricle is normal in size. Left ventricular systolic function is normal. EF = 63 5% (2D biplane) Normal left ventricular diastolic function. - The right ventricle is normal in size. Right ventricular systolic function is normal. Aortic sclerosis without any evidence of stenosis. - The patient has not had a prior [facility] echocardiographic exam for comparison. Most recent stress test from 2020 in [facility]: CONCLUSIONS: 1. SPECT Perfusion Study: Normal. 2. There is no scintigraphic evidence for inducible ischemia. 3. No evidence of scarred myocardium. 4. Left ventricle is normal in size. The left ventricle systolic function is normal. 5. Right ventricle is normal in size. 6. This is a low risk scan. LVEF % 65 Impression/Recommendations ASSESSMENT: Hyperlipidemia Assessment: managed with Lipitor Moderate episode of recurrent major depressive disorder (HCC) Assessment: managed with Wellbutrin, Prozac IBS (irritable bowel syndrome) Assessment: managed with Bentyl Type 2 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 (HCC) Assessment: managed with Trulicity, Glimepiride Hemoglobin A1C (%) Date Value 04/22/2022 6.0 01/29/2022 5.8 Essential hypertension Assessment: managed with Lisinopril MARIBEL (obstructive sleep apnea) Assessment: no longer using CPAP s/p bariatric surgery in 2019 Hypothyroid Assessment: managed with Synthroid Stage 3 chronic kidney disease (HCC) Assessment: Creatinine Date Value Ref Range Status 05/29/2022 1.07 (H) 0.58 - 0.96 mg/dL Final BUN Date Value Ref Range Status 05/29/2022 12 7 - 21 mg/dL Final GERD without esophagitis Assessment: managed with Nexium Renal lesion Assessment: US from 2019: IMPRESSION: Subcentimeter hyperechoic cortical lesion at mid to lower anterior right kidney is not significantly changed, favors benign lipoma or angiomyolipoma. S/P gastric bypass Assessment: s/p laparoscopic Samina-en-Y gastric bypass 2018 Asthma Assessment: managed with Albuterol inhaler prn- last used ~ 3 months ago METS: Climb a flight of stairs or walk up a hill (5.50 METs) Patient denies any chest pain or undue shortness of breath with the above physical activity. ASA Class: 3 ANESTHESIA FINDINGS: Intubation History: No history of difficult intubation Significant Anesthesia Considerations: None Airway Exam: General: Normal appearance Mallampati Score is CLASS I ULBT: Class I - Lower incisors can bite the upper lip above the ilene line Neck: Normal appearance and function, Distance from hyoid to mentum during neck extension is at least 3 finger breaths Mouth: Normal tongue size and Mouth opening greater than 2 finger breaths Dentition: Intact, Caps/crowns, and Implants +2 missing Airway History: No abnormal airway history STOP BANG Score: MARIBEL does not use CPAP/BiPAP after bariatric surgery PLAN: This patient is optimally prepared for surgery pending LABS. Patient has Mupirocin ointment from previous [facility] appointment- reiterated to use BID 5 days prior and morning of surgery. CONSULTS: Patient does not require consults for optimization at this time. The Following Tests/Procedures Have Been Initiated: Orders Placed This Encounter Type and Screen, 30 day Standing Status: Future Standing Expiration Date: 08/31/2022 CBC w/ diff, BMP from 05/29/2022, HgA1C, Iron, Ferritin, TIBC from 04/22/2022, ECG from 02/27/2022 and Chest x-ray from 03/21/2022 in [facility] Planned Anesthetic: Per anesthesia choice Instructions Given to Patient: Patient given verbal instructions and voices comprehension and compliance. Copy sent electronically via My Chart, email, or mobile device. I spent more than 21-40 minutes ykoh-oy-cyql with the patient and over half the time was devoted tocounseling and/or coordination of care. This is a virtual visit. It required patient-provider interaction for the medical decision making as documented above. SIGNATURE: Carolina Davila PA-C PATIENT NAME: Mary Jane De Paz DATE: June 24, 2022 TIME: 7:38 PM PAGER/CONTACT #: documented in this encounterK[facility]2023 Miscellaneous Notes* Telephone Encounter - Cindy Parrish - 06/13/2022 2:05 PM EDT Called and rescheduled patients CT. * Telephone Encounter - Rafi Fox APRN.CNP - 06/13/2022 7:23 AM EDT Order placed. Rafi Fox APRN.CNP June 13, 2022 7:23 AM * Telephone Encounter - Gely Hernandez Sedc - 06/12/2022 3:43 PM EDT Anthony- Please place new CT [place] scan order for hip. Katerine said it didn't pass. She will need rescanned. Thetop of the pelvis was clipped out of the images, and they won t plan it even if the smallest portion is clipped. Sorry for the late notice. I didn t see it because it was such a small portion. PSS- Please give this patient a call and get her CT scan rescheduled. Surgery date is 06-20-2022 so it needs done sooner than later. Thank you. Gely Tabares Med Sedc documented in this encounterK[facility]03-22-2023 Miscellaneous Notes* Telephone Encounter - Ramo Russo LPN - 06/11/2022 10:58 AM EDT Ok, to close encounter. Received statement stating pt is enrolled through end 2022. Ramo Russo LPN * Telephone Encounter - KHUSHBOO Brown - 06/11/2022 9:15 AM EDT Can Sw close this note, or is more assistance needed with [facility] PAP. * Telephone Encounter - Ramo Russo LPN - 06/05/2022 10:30 AM EDT Income portion faxed again. (Income portion was 1st faxed on 04/28/22 and it included both portions- 1 for Trulicity and 1 for Prozac that were filled out by pt.) Ramo Russo LPN * Telephone Encounter - KHUSHBOO Brown - 06/05/2022 10:16 AM EDT Sw called [employer] in regards to patient application for Prozac and Trulicity. [employer] rep states patient application was approved for Trulicity on 05/30/22. Rep notes that they sent letter to patient letting her know this information. [employer] rep states that they need proof of income faxed to [facility] again to see if patient will be approved for Prozac. [employer] Rep states that the does not see the income for that JULI King officefaxed them earlier this month. [facility] fax#[phone] Sw asked as to how Trulicity could be approved but Prozac is still pending. [employer] rep notes that patient income is right at the guideline amount. Company states that they want to review income statement to see if patient will meet guideline for approval. Trulicity has different guideline, so patient written income is within guideline limit. [employer] rep notes that patient has been mailed a letter regarding Trulicity approval and medication is pending shipping. documented in this encounterKettering [facility]03-20-2023 History of Present illness Narrative* Diana Barclay RT(R) - 06/09/2022 4:40 PM EDT Radiology Service Progress Note PATIENT NAME: Mary Jane De Paz DATE OF SERVICE: June 09, 2022 TIME: 4:38 PM PATIENT IDENTITY VERIFICATION COMPLETED USING TWO (2) IDENTIFIERS: Name and Date of confirmedby patient verbally. FALL SCREENING: Has the patient had 2 falls in the last year or 1 fall with injury or currently using an Ambulatory Assistive Device (Walker, Cane, Wheelchair, Crutches, etc.)? No PATIENT GENDER DATA: Female. status: : No status: NO. PATIENT RELEVANT IMPLANT DATA REVIEWED: Not Applicable RADIOLOGY DEPARTMENT: General X-ray: Exam(s) Completed: Upper Extremity X- Ray(s): Shoulder, AP / TRUE AP / AXILLARY right PERIPHERAL IV DATA: Not applicable SIGNED BY: RT Bharati(R) June 09, 2022 4:38 PM documented in this encounterKettering [facility]03-20-2023 History of Present illness Narrative* Willow Resendiz APRN.JOSEFINA - 06/09/2022 4:30 PM EDT Images from the original note were not included. Subjective She came in with complaints of right shoulder pain. Patient said she had some alcohol and tripped and fell onto that right shoulder. Patient says it is extremely painful hurts worse today than it didyesterday when she fell. Patient does have a Lidoderm pain patch on it. Patient denies any loss of feeling radiating down her arm. Patient denies any bruising or swelling. Patient says range of motion is hard to do. The history is provided by the patient. No speech language assistant was used. Shoulder Injury Review of Systems Constitutional: Negative. Skin: Negative. Objective Physical Exam Constitutional: Appearance: Normal appearance. Pulmonary: Effort: Pulmonary effort is normal. Musculoskeletal: Arms: Comments: Patient is tender in the areas marked above when palpated. Patient's range of motion is limited due to pain. Patient failed the scratch test patient passed the empty can test. Neurological: Mental Status: She is alert. PAST MEDICAL HISTORY Diagnosis Date Allergic rhinitis Arthritis [facility] orthopedics, knee Asthma CKD (chronic kidney disease) 11/01/2018 Class 3 severe obesity with serious comorbidity and body mass index (BMI) of 40.0 to 44.9 in adult ([facility]) 08/19/2018 Coronary artery disease 10/28/[address] Salazar GERD (gastroesophageal reflux disease) History of transfusion HTN (hypertension) Hypothyroidism Mixed hyperlipidemia NIDDM (non-insulin dependent 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) MARIBEL on CPAP CPAP 9Cm Renal lesion 01/15/2015 Suggest renal US every 1-2 years per PCP or nephro. Snoring Type 2 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 with hyperglycemia, with long-term current use of insulin ([facility]) 02/27/2001 PAST SURGICAL HISTORY Procedure Laterality Date ABDOMINAL SURGERY HX COLONOSCOPY 11/05/2016 Tammi- divertiuclosis, internal hemorrhoids, repeat in 5 years COLONOSCOPY 04/02/2022 repeat in 5 years due to reported prior history of polyps COSMETIC ASSESSMENT EGD 11/05/2016 Tammi- gastritis EGD 09/08/2018 /Gastritis EGD 04/02/2020 EGD 04/02/2022 EYE SURGERY HX FRACTURE SURGERY GASTRECTOMY,PART DISTAL;W/GASTRODUODENOSTO GASTRIC BYPASS HX 12/13/2018 HYSTERECTOMY JOINT REPLACEMENT HX OOPHORECTOMY PARTIAL OR TOTAL PAST SURGICAL HISTORY OF 2009 hemmroidectomy/sphincterectomy - Dr Nichole PAST SURGICAL HISTORY OF 2008 total left knee replacement PAST SURGICAL HISTORY OF 2003 partial right knee replacement PAST SURGICAL HISTORY OF 1990 total hysterectomy PAST SURGICAL HISTORY OF 2010 lDr Mansoor - Parmaeft elbow fracture - traumatic. radial head replacement PAST SURGICAL HISTORY OF Bilateral 2016 hand surgery PAST SURGICAL HISTORY OF Left RELEASE CONTRACTURE DEQUERVAINS S INSERT PINN METAL NTRL HIP Right 11/17/2021 SKIN BIOPSY HX TUBAL LIGATION HX VAGINAL HYSTERECTOMY ALLERGIES Vicodin [Hydrocodone-Acetaminophen] MEDICATIONS levothyroxine (SYNTHROID) 100 mcg tablet Take 1 tablet by mouth once daily. traZODone (DESYREL) 100 mg tablet Take 2 tablets by mouth daily at bedtime. FLUoxetine (PROZAC) 20 mg capsule Take 3 capsules by mouth once daily. esomeprazole (NEXIUM) 40 mg capsule TAKE ONE CAPSULE BY MOUTH twice daily. glimepiride (AMARYL) 2 mg tablet Take 1 tablet by mouth daily with breakfast. buPROPion XL (WELLBUTRIN XL) 300 mg 24 hr tablet Take 1 tablet by mouth once daily. atorvastatin (LIPITOR) 20 mg tablet Take 1 tablet by mouth daily at bedtime. For cholesterol. mupirocin (BACTROBAN) 2 % ointment Apply 0.5 inch with cotton swab (Q-tip) to each nostril in the morning and evening for 5 days prior to and including day of surgery. albuterol HFA (PROVENTIL HFA, VENTOLIN HFA) 90 mcg/actuation inhaler Inhale 2 Puffs as instructed as needed for wheezing/shortness of breath. dulaglutide (TRULICITY) 0.75 mg/0.5 mL pen injector Inject 0.75 mg subcutaneously one time a week. Inject dose once per week. Discard Pen After FLUoxetine (PROZAC) 20 mg capsule Take 3 capsules by mouth once daily. APPLE CIDER VINEGAR ORAL Take 1 capsule by mouth once daily. 450 mg capsule OTC NUTRITIONAL SUPPLEMENT Take 1 capsule by mouth once daily. Tumeric - 2000 mg capsule lisinopril (ZESTRIL, PRINIVIL) 10 mg tablet Take 1 tablet by mouth once daily. calcium citrate/vitamin D3 (CALCIUM CITRATE + D ORAL) Take 1 tablet by mouth twice daily. MULTI-VITAMIN ORAL Take 1 tablet by mouth once daily. Takes bariatric multivitamin daily scopolamine (TRANSDERM-SCOP) patch 1.5 mg/72 hr (delivers 1 mg over 3 days) Apply 1 Patch as directed every 72 hours. Apply one patch behind the ear every 3 days (Patient not taking: Reported on 05/29/2022) [DISCONTINUED] lactose-reduced food (ADULT NUTRITIONAL SUPPLEMENT ORAL) Take 1 capsule by mouth once daily. Tumeric - 2000mg capsule dicyclomine (BENTYL) 20 mg tablet Take 1 tablet by mouth before meals and at bedtime. (Patient not taking: Reported on 05/29/2022) FAMILY HISTORY Problem Relation Age of Onset Diabetes Father other (Squamous cell ca) Father other (renal cell ca) Father 1999 other (htn) Father other (polio) Mother other (renal cell ca) Brother 2010 other (Thyroid Cancer) Sister other (thyroid disease) Sister ca Obesity Paternal Grandmother Obesity Daughter Thyroid Daughter Anesthesia Problems No Family History Social History Tobacco Use Smoking status: Former Packs/day: 1.50 Years: 22.00 Pack years: 33.00 Types: Cigarettes Quit date: 1989 Years since quittin.2 Smokeless tobacco: Never Vaping Use Vaping Use: Never used Substance Use Topics Alcohol use: Yes Comment: few times a year. mixed drinls/marcelino. 3 in sitting. Drug use: No Comment: denies tx for drug/alcohol abuse in the past. ASSESSMENT/PLAN: 1. Fall, initial encounter - ICD9: E888.9, ICD10: W19.XXXA - XR SHOULDER GENERAL 3V OR MORE AP/TRUE AP/OTHER RIGHT * * * * Physician Interpretation * * * * EXAM TITLE: XR SHLDR >/=3V AP/REGINA AP/OTHR RT EXAM DATE/TIME: 06/09/2022 4:48 PM COMPARISON: None. CLINICAL INDICATION/HISTORY: Fall. TECHNIQUE: AP, true AP and axillary views of the right shoulder are presented FINDINGS: No acute fractures seen. There is questionable subluxation of the acromioclavicular joint, with osteophyte formation. The glenohumeral joint space is maintained, with minimal osteophyte formation. Normal acromiohumeral interval. The mineralization of the bones is normal. There is no significant soft tissue swelling. IMPRESSION IMPRESSION: Questionable subluxation of the acromioclavicular joint. No acute fracture seen. Degenerative changes as described above. Senior Laboratory Technician: SEFERINO Transcribe Date/Time: Jun 09 2022 4:55P Dictated by : DONA DOHERTY MD Does not want her arm placed in sling at this time. Patient has a follow-up appointment with orthopedics in the morning to see if she can get some relief from the pain. Patient has Lidoderm pain patches at this time does not want a muscle relaxer. Does not want 800 mg ibuprofen. Patient was okay with this care plan will follow-up with orthopedics in the morning. Willow Resendiz APRN.JOSEFINA documented in this encounterK[facility]03-20-2023 Evaluation note* Diagnosis Type 2 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 with stage 3 chronic kidney disease, without long-term current use of insulin, unspecified whether stage 3a or 3b CKD (HCC)- Primary Moderate episode of recurrent major depressive disorder (HCC) Generalized postprandial abdominal pain Abdominal pain, generalized Other specified hypothyroidism Encounter for screening for COVID-19 Chronic pain of right hip Primary osteoarthritis of right hip Primary localized osteoarthrosis, pelvic region and thigh documented in this encounter [facility]03-[facility]23 History of Present illness Narrative* Dionna Ball PA-C - 05/29/2022 9:38 PM EST Lab Value Units Date High Low HB 13.0 g/dL 05/29/2022 15.5 11.5 HCT 38.8 % 05/29/2022 46.0 36.0 WBC 8.11 k/uL 05/29/2022 11.00 3.70 PLT 413 k/uL 05/29/2022 400 150 NA 136 mmol/L 05/29/2022 144 136 K 4.5 mmol/L 05/29/2022 5.1 3.7 GLUC 86 mg/dL 05/29/2022 99 74 BUN 12 mg/dL 05/29/2022 21 7 CREAT 1.07 mg/dL 05/29/2022 0.96 0.58 PTSEC No results within date range. INR No results within date range. APTT No results within date range. ALT 38 U/L 01/29/2022 38 7 AST 39 U/L 01/29/2022 35 13 TBILI 0.2 mg/dL 01/29/2022 1.3 0.2 TSH 2.640 mIU/L 04/22/2022 4.200 0.270 Lab Value Units Date High Low HCGQT No results within date range. UHCG No results within date range. HCG, BODY* No results within date range. Lab Value Units Date High Low ABORHD No results within date range. ABSCREEN No results within date range. Hemoglobin A1C (%) Date Value 04/22/2022 6.0 01/29/2022 5.8 09/30/2021 6.1 07/29/2021 6.2 02/27/2021 6.6 10/19/2020 7.5 09/05/2020 7.4 01/24/2020 6.3 01/24/2020 6.3 Labs reviewed and accepted. Pt is optimally prepared for surgery. Dionna Ball PA-C 05/29/2022 9:38 PM documented in this encounterK[facility]03-09-2023 Instructions* Patient Instructions* Dionna Ball PA-C - 05/29/2022 2:43 PM EST PATIENT PREOPERATIVE INSTRUCTIONS [facility]: [phone] -- [address] [facility] [address] [address]. Please read below carefully for your personalized instructions. Dietary Restrictions: - No solid food after midnight. - You may have 12 ounces of clear liquids (water, clear juices such as apple juice or gatorade, carbonated beverages, clear tea, black coffee, jello) until 2 hours before scheduled arrival at facility. Medications: Unless instructed differently below, stay on all of your medications until your surgery. Approved medications to take the morning of surgery with a sip of water: bupropion, esomeprazole, fluoxetine, levothyroxine. DO NOT TAKE YOUR LISINOPRIL THE NIGHT BEFORE OR MORNING OF SURGERY. - No diabetic medication the morning of surgery. If you start any new medications after today's visit, please contact the surgeon's office. Blood Thinning Medications: - Stop NSAIDS (Ibuprofen, Advil, Aleve, Motrin, Celebrex, Mobic, etc.) 7 days before surgery, as directed by your surgeon. - Stop Aspirin 7 days before surgery, as directed by your surgeon. - Stop Vitamin E, ALL multi-vitamins, herbals and dietary supplements 7 days before surgery. - You may take Tylenol (Acetaminophen) or any of your pain medications that do not contain aspirin or NSAIDS as needed. Important Reminders: - If you are prescribed inhalers for breathing, continue using them. Bring your inhalers with you. - Candy, mints, and tobacco products are NOT permitted the morning of surgery. - Hearing aids, dentures and glasses may be worn the morning of surgery. - NO jewelry, body piercings, makeup, hairpins or contacts are to be worn the day of surgery. If you develop symptoms such as a fever, cold, or flu, or have other changes to your health within TWO DAYS of scheduled surgery or the morning of surgery, please contact the surgery center above. Personal Belongings: -Please have photo ID and insurance cards. -If you do not have a copy of advance directives on file with us, please bring a copy with you on the day of surgery. - Leave ALL valuables and money at home or with family members. Arrival Time for Surgery: - The Surgery Center or hospital where you are having surgery will call the afternoon before surgery (or Thursday for Thursday surgery) with a scheduled arrival time. - If you have not heard by 4 pm, please contact the surgery center above. Please be aware that emergency situations arise, which may delay or change your surgical time. If this happens, we will notify you as soon as possible and regret any inconvenience. If you already have an Advance Directive, please fax a copy to [phone] or email to for it to be added to your chart. If you do not have an Advance Directive, you can find the appropriate form and more information at [email or web address]. We recommend that youcomplete the Advance Directive form found on the website and bring it with you the day of your surgery. It can be witnessed and scanned into your chart that day. documented in this encounterK[facility]03-09-2023 History and physical note * Dionna Ball PA-C - 05/29/2022 2:20 PM EST HISTORY AND PHYSICAL EXAMINATION SERVICE DATE: 05/29/2022 SERVICE TIME: 2:28 PM PRIMARY CARE PHYSICIAN: Christine Morgan APRN.CNP REASON FOR VISIT: Mary Jane De Paz is a 72 year old female who is scheduled for R REID at the request of Dr. Donavon Patricia for consultation. My final recommendation will be communicated back to the requesting physician by way of shared medical record or letter. Subjective The patient has the following: ACTIVE PROBLEM LIST Type 2 Diabetes Mellitus With Stage 3 Chronic Kidney Disease, Without Long-Term Current Use of Insulin (Hcc) Blepharochalasis Hyperlipidemia Hypothyroid Generalized Postprandial Abdominal Pain Ibs (Irritable Bowel Syndrome) Moderate Episode of Recurrent Major Depressive Disorder (Hcc) Essential Hypertension Maribel (Obstructive Sleep Apnea) Cognitive Decline Other Symbolic Dysfunction Actinic Keratoses Gerd Without Esophagitis 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 Hypertensive kidney disease with stage 3 chronic kidney disease (HCC) De Quervain's Tenosynovitis, Left Joint Stiffness of Hand, Left Metacarpophalangeal Joint Pain of Left Hand Finger Pain, Left Asthma Stage 3 Chronic Kidney Disease (Hcc) S/P Gastric Bypass Closed Displaced Fracture of Right Femoral Neck (Hcc) Hyponatremia Hip Fracture Requiring Operative Repair, Right, Closed, Initial Encounter ([facility]) COVID-19 Immunization Status COVID-19 VACCINE (Series Information) Completed 01/29/2022 Imm Admin: COVID-19 booster vaccine, age 12+ yr, bivalent (PFIZER-BIONTECH) 08/08/2021 Imm Admin: COVID-19 original vaccine, age 12+ yr, monovalent (PFIZER- BIONTECH - MENDIOLA TOP) 03/10/2021 Imm Admin: COVID-19 original vaccine, age 12+ yr, monovalent (PFIZER- BIONTECH - PURPLE TOP) Only the first 3 history entries have been loaded, but more history exists. CHIEF COMPLAINT: right hip pain HPI: Mary Jane De Paz is a 72 year old female presenting for pre-anesthesia consultation. Pt has history of right hip fracture s/p percutaneous screw fixation in 10/2021. Pt reports that she now has persistent hip pain. Pain radiates into right groin. She also reports frequent falls. Above procedure recommended to manage symptoms. Procedure scheduled on 06/20/2022 at [place]. REVIEW OF SYSTEMS: General: No weight loss, malaise or fevers. Neurological: No history of TIA's, stroke, [employer] tumor, impaired sensorium, hemiplegia, paraplegia orquadraplegia. No neurological symptoms or problems. Respiratory: Positive for: asthma (albuterol PRN, uses ~1x per week), tobacco use (former smoker), obstructive sleep apnea and CPAP/BiPAP noncompliant. Negative for: bronchitis, COPD, current cough, home oxygen and URI < 2 weeks. Cardiovascular: Positive for: hyperlipidemia and hypertension Negative for: arrhythmia, atrial fibrillation, CHF, DVT/PE, recent MD and murmur/valvular heart disease. GI: +S/p bariatric surgery - 2019, lost 70 lbs. Positive for: GERD and irritable bowel syndrome (diarrhea and constipation, has anal sphincter incontinence s/p stimulator (had battery changed in 04/2022)) Negative for: hepatitis, inflammatory bowel disease, liver disease and ETOH >2 drinks/day. : +R kidney cyst - monitored with US Positive for: renal failure. Patient's renal failure is chronic. Negative for: dysuria and hematuria. Endocrine: Positive for: 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 (on glimepiride and Trulicity (on Fridays), A1C 6.0 in 03/2022) and hypothyroidism. Negative for: steroid for chronic problem. Hematology: No history of bleeding or clotting disorder. Patient is not taking anti-coagulation or platelet medications. No history of hematological symptoms or problems. Oncology: No history of CA metastasis, chemo within 30 days, or radiotherapy within 90 days. No history of oncological symptoms or problems. Psych: No history of psychiatric symptoms or problems. Musculoskeletal: See HPI. Skin: Negative for lesions, rash and itching. PAST MEDICAL HISTORY Diagnosis Date Allergic rhinitis [facility], knee Asthma CKD (chronic kidney disease) 11/01/2018 Class 3 severe obesity with serious comorbidity and body mass index (BMI) of 40.0 to 44.9 in adult ([facility]) 08/19/2018 Coronary artery disease 10/28/[address] Salazar GERD (gastroesophageal reflux disease) History of transfusion HTN (hypertension) Hypothyroidism Mixed hyperlipidemia NIDDM (non-insulin dependent 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) MARIBEL on CPAP CPAP 9Cm Renal lesion 01/15/2015 Suggest renal US every 1-2 years per PCP or nephro. Snoring Type 2 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 with hyperglycemia, with long-term current use of insulin ([facility]) 02/27/2001 PAST SURGICAL HISTORY Procedure Laterality Date ABDOMINAL SURGERY HX COLONOSCOPY 11/05/2016 Tammi- divertiuclosis, internal hemorrhoids, repeat in 5 years COLONOSCOPY 04/02/2022 repeat in 5 years due to reported prior history of polyps COSMETIC ASSESSMENT EGD 11/05/2016 Tammi- gastritis EGD 09/08/2018 /Gastritis EGD 04/02/2020 EGD 04/02/2022 EYE SURGERY HX FRACTURE SURGERY GASTRECTOMY,PART DISTAL;W/GASTRODUODENOSTO GASTRIC BYPASS HX 12/13/2018 HYSTERECTOMY JOINT REPLACEMENT HX OOPHORECTOMY PARTIAL OR TOTAL PAST SURGICAL HISTORY OF 2009 hemmroidectomy/sphincterectomy - Dr Nichole PAST SURGICAL HISTORY OF 2008 total left knee replacement PAST SURGICAL HISTORY OF 2003 partial right knee replacement PAST SURGICAL HISTORY OF 1990 total hysterectomy PAST SURGICAL HISTORY OF 2010 lDr Mansoor - Parmaeft elbow fracture - traumatic. radial head replacement PAST SURGICAL HISTORY OF Bilateral 2016 hand surgery PAST SURGICAL HISTORY OF Left RELEASE CONTRACTURE DEQUERVAINS S INSERT PINN METAL NTRL HIP Right 11/17/2021 SKIN BIOPSY HX TUBAL LIGATION HX VAGINAL HYSTERECTOMY FAMILY HISTORY Problem Relation Age of Onset Diabetes Father other (Squamous cell ca) Father other (renal cell ca) Father 1999 other (htn) Father other (polio) Mother other (renal cell ca) Brother 2010 other (Thyroid Cancer) Sister other (thyroid disease) Sister ca Obesity Paternal Grandmother Obesity Daughter Thyroid Daughter Anesthesia Problems No Family History Social History Tobacco Use Smoking status: Former Packs/day: 1.50 Years: 22.00 Pack years: 33.00 Types: Cigarettes Quit date: 1989 Years since quittin.2 Smokeless tobacco: Never Vaping Use Vaping Use: Never used Substance Use Topics Alcohol use: Yes Comment: few times a year. mixed drinls/marcelino. 3 in sitting. Drug use: No Comment: denies tx for drug/alcohol abuse in the past. Prior to Admission medications as of 05/29/22 1436 Medication Sig Last Dose Taking albuterol HFA (PROAIR HFA) 90 mcg/actuation inhaler Inhale 2 Puffs as instructed as needed for wheezing/shortness of breath. Taking Yes traZODone (DESYREL) 100 mg tablet Take 200 mg by mouth daily at bedtime. Taking Yes dulaglutide (TRULICITY) 0.75 mg/0.5 mL pen injector Inject 0.75 mg subcutaneously one time a week. Inject dose once per week. Discard Pen After Taking Yes FLUoxetine (PROZAC) 20 mg capsule Take 3 capsules by mouth once daily. Taking Yes esomeprazole (NEXIUM) 40 mg capsule TAKE ONE CAPSULE BY MOUTH twice daily. Taking Yes glimepiride (AMARYL) 2 mg tablet Take 1 tablet by mouth daily with breakfast. Taking Yes atorvastatin (LIPITOR) 20 mg tablet Take 1 tablet by mouth daily at bedtime. For cholesterol. Taking Yes APPLE CIDER VINEGAR ORAL Take 1 capsule by mouth once daily. 450 mg capsule Taking Yes OTC NUTRITIONAL SUPPLEMENT Take 1 capsule by mouth once daily. Tumeric - 2000 mg capsule Taking Yes levothyroxine (SYNTHROID) 100 mcg tablet Take 1 tablet by mouth once daily. Taking Yes buPROPion XL (WELLBUTRIN XL) 300 mg 24 hr tablet Take 1 tablet by mouth once daily. Taking Yes lisinopril (ZESTRIL, PRINIVIL) 10 mg tablet Take 1 tablet by mouth once daily. Taking Yes calcium citrate/vitamin D3 (CALCIUM CITRATE + D ORAL) Take 1 tablet by mouth twice daily. Taking Yes MULTI-VITAMIN ORAL Take 1 tablet by mouth once daily. Takes bariatric multivitamin daily Taking Yes mupirocin (BACTROBAN) 2 % ointment Apply 0.5 inch with cotton swab (Q-tip) to each nostril in the morning and evening for 5 days prior to and including day of surgery. scopolamine (TRANSDERM-SCOP) patch 1.5 mg/72 hr (delivers 1 mg over 3 days) Apply 1 Patch as directed every 72 hours. Apply one patch behind the ear every 3 days Patient not taking: Reported on 05/29/2022 Not Taking lactose-reduced food (ADULT NUTRITIONAL SUPPLEMENT ORAL) Take 1 capsule by mouth once daily. Tumeric - 2000mg capsule dicyclomine (BENTYL) 20 mg tablet Take 1 tablet by mouth before meals and at bedtime. Patient not taking: Reported on 05/29/2022 Not Taking Medication Comments documented by Uzma Boyer PT on 11/22/2021 at 1102. Severe Interaction - Trazadone and Prozac ALLERGIES Allergen Reactions Vicodin [Hydrocodon* Itching Pt not sure if she has an allergy but states she wants it documented. Objective PHYSICAL EXAM: General: alert and oriented and healthy appearance. Pertinent negatives noted - not distressed. Skin: normal color, no rash or lesions. HEENT: EOM intact and pupils equal round. Pertinent negatives noted - no carotid bruit. Cardiovascular: regular rate and rhythm, normal S1 and S2, no rub, murmurs, or gallop. Pulse characterized as regular.No radial pulse abnormalities. Respiratory: normal breath sounds, no wheezes or crackles. Abdomen: Not examined. Extremities: Pertinent negatives noted - no cellulitis, no clubbing, no deformity, no edema and no ulcer. Neurological: normal cognition and motor skills. Pertinent negatives noted - no abnormal gait. PAIN ASSESSMENT: VITALS: BP 115/69 Pulse 77 Temp (Src) 98.2 (Temporal) Resp 16 Ht 5' 2.5 (1.59m) Wt 158 lb (71.7kg) SpO2 98% BMI 28.42 kg/(m^2). Diagnostic tests reviewed for today's visit: Lab Value Units Date High Low HB 13.9 g/dL 04/22/2022 15.5 11.5 HCT 41.7 % 04/22/2022 46.0 36.0 WBC 10.54 k/uL 04/22/2022 11.00 3.70 PLT 442 k/uL 04/22/2022 400 150 NA 138 mmol/L 01/29/2022 144 136 K 4.5 mmol/L 01/29/2022 5.1 3.7 GLUC 109 mg/dL 01/29/2022 99 74 BUN 11 mg/dL 01/29/2022 21 7 CREAT 1.10 mg/dL 01/29/2022 0.96 0.58 PTSEC No results within date range. INR No results within date range. APTT No results within date range. ALT 38 U/L 01/29/2022 38 7 AST 39 U/L 01/29/2022 35 13 TBILI 0.2 mg/dL 01/29/2022 1.3 0.2 TSH 2.640 mIU/L 04/22/2022 4.200 0.270 Lab Value Units Date High Low HCGQT No results within date range. UHCG No results within date range. HCG, BODY* No results within date range. Lab Value Units Date High Low ABORHD No results within date range. ABSCREEN No results within date range. Hemoglobin A1C (%) Date Value 04/22/2022 6.0 01/29/2022 5.8 09/30/2021 6.1 07/29/2021 6.2 02/27/2021 6.6 10/19/2020 7.5 09/05/2020 7.4 01/24/2020 6.3 01/24/2020 6.3 Recent Results (from the past 8760 hour(s)) ECG COMPLETE Collection Time: 11/17/21 12:32 PM Result Value Ventricular Rate 65 Atrial Rate 65 P-R Interval 198 QRS Duration 100 QT Interval 442 QTC Calculation (Bazett) 459 Calculated P Newport 42 Calculated R Newport 2 Calculated T Newport 35 Impression NORMAL SINUS RHYTHM NORMAL ECG NO PREVIOUS ECGS AVAILABLE Confirmed by MD DOSS GREGORY () on 11/18/2021 9:09:47 AM Stress test 09/13/2020 CONCLUSIONS: 1. SPECT Perfusion Study: Normal. 2. There is no scintigraphic evidence for inducible ischemia. 3. No evidence of scarred myocardium. 4. Left ventricle is normal in size. The left ventricle systolic function is normal. 5. Right ventricle is normal in size. 6. This is a low risk scan. 1 LVEF % 65 Assessment Patient has the following medical conditions which may affect lazaro-operative course: Essential hypertension Assessment: Stable, on RX. BP today 115/69. Hyperlipidemia Assessment: Stable, on RX. MARIBEL (obstructive sleep apnea) Assessment: No longer using CPAP, has not used CPAP since weight loss s/p bariatric surgery in 2019. Asthma Assessment: Stable, albuterol PRN (uses ~1x per week). GERD without esophagitis Assessment: Stable, sx managed on Nexium. S/P gastric bypass Assessment: 2019, has lost 70 lbs. Stage 3 chronic kidney disease (HCC) Assessment: eGFR 51, Cr 1.10 in 01/2022. BMP pending. Hypothyroid Assessment: Stable, on RX. Type 2 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 with stage 3 chronic kidney disease, without long-term current use of insulin (HCC) Assessment: Controlled on glimepiride and Trulicity (on Fridays), A1C 6.0% in 03/2022. Moderate episode of recurrent major depressive disorder (HCC) Assessment: Stable, on RX. [place] Activity Status Index: METS: Climb a flight of stairs or walk up a hill (5.50 METs) DASI Score: 5.5 Patient denies any chest pain or undue shortness of breath with the above physical activity. Clinical Frailty Scale: 3. Well, with treated comorbid disease STOP-Bang Score: STOP-Bang Score: (+MARIBEL - has not used CPAP since weight loss following bariatric surgery in 2019.) [id number] Score: Hypertension history: Yes Diabetes history: Yes [id number] Score: 2 ASA Class: 3 ANESTHESIA FINDINGS: Intubation History: No history of difficult intubation. No abnormal airway history Significant Anesthesia Considerations: none Airway History: No history of difficult airway No abnormal airway history I - PHYSICAL EVALUATION AIRWAY Patient intubated: No. Tracheostomy tube not present Mallampati: I. TM distance: >3 FB. Neck ROM: full ROM without neurological symptoms. Mouth opening: adequate. Short neck: no. Thick neck: no DENTAL Dental findings: teeth intact. Additional comments: +Crowns, implants. II - ANESTHESIA PLAN ASA Score: 3 Anesthetic Plan: other Anesthetic plan additional comments: *PACC/TCI - anesthesia choice. Beta Manny Monitoring Plan Post Procedure Analgesic Plan Prepared for Surgery: optimally prepared for surgery, pending [see comment]. LABS. CONSULTS: Patient does not require consults for optimization at this time Planned Anesthetic: other anesthesia choice The Following Tests/Procedures Have Been Initiated: Orders Placed This Encounter CBC with Differential Standing Status: Future Number of Occurrences: 1 Standing Expiration Date: 07/29/2022 BMP Standing Status: Future Number of Occurrences: 1 Standing Expiration Date: 07/29/2022 Type and Screen, 30 day Standing Status: Future Number of Occurrences: 1 Standing Expiration Date: 07/29/2022 mupirocin (BACTROBAN) 2 % ointment Sig: Apply 0.5 inch with cotton swab (Q-tip) to each nostril in the morning and evening for 5 days prior to and including day of surgery. Dispense: 22 g Refill: 0 albuterol HFA (PROAIR HFA) 90 mcg/actuation inhaler Sig: Inhale 2 Puffs as instructed as needed for wheezing/shortness of breath. Instructions Given to Patient: Instructions located in the after visit summary. Patient given verbal and written preop instructions and voices comprehension and compliance. SIGNATURE: Dionna Ball PA-C PATIENT NAME: Mary Jane De Paz DATE: May 28, 2022 TIME: 4:32 PM PAGER/CONTACT #: documented in this encounterK[facility]03-07-2023 Miscellaneous Notes* Telephone Encounter - Ramo Russo LPN - 05/27/2022 4:28 PM EST Trulicity rx refaxed. Ramo Russo LPN * Telephone Encounter - KHUSHBOO Brown - 05/27/2022 3:24 PM EST [facility] and trulicity. Rep notes that prozac is pending approval. [employer] rep notes that they do not have the trulicity prescription that had been faxed to company recently from [place]ULI [place] office. Ramo/Christine, Could you refax Trulicity prescription to [facility] [phone]? Ananya documented in this encounterK[facility]03-02-2023 Miscellaneous Notes* Telephone Encounter - KHUSHBOO Brown - 05/22/2022 10:55 AM EST [facility]. Rep notes that he is sending message to collection supervisor to see about expediting application determination. Rep notes this Sw can call back Thursday to see if determination has been made on application for prozac and trulicity. Miriam will send patient [employer] message with above information. * Telephone Encounter - KHUSHBOO Brown - 05/22/2022 8:18 AM EST Miriam will call [employer] and check on status of application for prozac and trulicity. * Telephone Encounter - Jean Pierre Joy Ma - 05/21/2022 4:36 PM EST Ananya is there anyway you can check on this? We faxed application and additional information requested Jean Pierre Joy Ma * Telephone Encounter - Christine Morgan APRN.CNP - 05/12/2022 4:48 PM EST Scripts printed. Christine Morgan APRN.JOSEFINA * Telephone Encounter - Ramo Russo LPN - 05/12/2022 4:31 PM EST Received fax from [employer]. They are requesting written rx from provider and documentation to verify annual household income from patient. Pt notified via [employer] message. Ramo Russo LPN * Telephone Encounter - KHUSHBOO Brown - 05/12/2022 2:44 PM EST SW will call [employer] to check on status of patient application for patient assistance. * Telephone Encounter - Ramo Russo LPN - 05/12/2022 1:29 PM EST See TE from 04/22/22. Forms was faxed on 04/28/22. documented in this encounterK[facility]02-28-2023 Miscellaneous Notes* Telephone Encounter - FELISHA Daniel - 05/20/2022 2:51 PM EST TOTAL JOINT COMPLETE CARE PROGRAM PRE-OPERATIVE TEACHING Service Date: 05/26/2022 Service Time: 9:40 AM Date of : 1950 Gender: female Date of Surgery: 06/20/22 Procedure: Right Total Hip Replacement Complete Care Program was discussed with the patient: Derivatives Trader Identification: Patient identified a outdoor emergency care technician to help when discharged to home: Home Environment: Home Layout: Ranch, Entry Steps: 1, Bedroom Location: 1st floor, Bathroom Location: 1st floor, and walk in. Pt has cane, walker with wheels, shower chair, toilet riser. Discussed with patient importance of attending joint education class and provided date and times ofclass: YES decided Patient received Joint Education Binder: Yes Patient would like home therapy at discharge. SIGNATURE: FELISHA Daniel PATIENT NAME: Mary Jane De Paz DATE: May 20, 2022 TIME: 2:51 PM documented in this encounterKettering [facility]02-24-2023 Miscellaneous Notes* Telephone Encounter - Eleni ESPARZA - 05/16/2022 9:15 AM EST I switched the orders for her already scheduled CT appt.. Thanks * Telephone Encounter - Rafi Fox APRN.CNP - 05/16/2022 8:59 AM EST Please assist in scheduling CT right hip Rafi Fox APRN.CNP May 16, 2022 9:00 AM documented in this encounterK[facility]02-21-2023 Miscellaneous Notes* Telephone Encounter - Ramo Russo LPN - 05/13/2022 11:09 AM EST Rx's were printed and faxed to [employer] today. (See [facility] message from 05/12 and TE from 04/22/22). Ramo Russo LPN * Telephone Encounter - KHUSHBOO Brown - 05/13/2022 10:45 AM EST [employer] Rep requesting copy of income from patient. Rep notes that they are unable to verify patient income on their end, so need copy of income. [employer] rep also notes that trulicity dose needs verified/addressed on application and max dose per day needs addressed. Sw will send patient [employer] message to let her know that come is requesting copy of income for household. Please review [employer] manjinder and address Trulicity dose and max dose per day. * Telephone Encounter - KHUSHBOO Brown - 05/12/2022 3:44 PM EST Miriam called [employer] [facility] to enquire on status of patient assistance application. Miriam waited on hold no answer.Miriam will try call again later. documented in this encounterKet[facility]02-20-2023 Instructions* Patient Instructions* Linh Dickinson PA-C - 05/12/2022 2:19 PM EST PATIENT PREOPERATIVE INSTRUCTIONS Sindy Mcgregor MD has scheduled you for your procedure at this surgery center: [facility] Scheduling Office: [phone] [address] [id number]. Please read below carefully for your personalized instructions. Dietary Restrictions: - No solid food after midnight. - You may have 12 ounces of clear liquids (water, clear juices such as apple juice or gatorade, carbonated beverages, clear tea, black coffee, jello) until 2 hours before scheduled arrival at facility. Medications: Unless instructed differently below, stay on all of your medications until your surgery. Approved medications to take the morning of surgery with a sip of water: Bupropion (Wellbutrin), Esomeprazole (Nexium), Fluoxetine (Prozac), Levothyroxine (Synthroid) Hold Lisinopril the night before surgery. If you start any new medications after today's visit, please contact the surgeon's office. Blood Thinning Medications: - Stop NSAIDS (Ibuprofen, Advil, Aleve, Motrin, Celebrex, Mobic, etc.) 7 days before surgery, as directed by your surgeon. - Stop Aspirin 7 days before surgery, as directed by your surgeon. - Stop Vitamin E, ALL multi-vitamins, herbals and dietary supplements 7 days before surgery. - You may take Tylenol (Acetaminophen) or any of your pain medications that do not contain aspirin or NSAIDS as needed. Important Reminders: - Candy, mints, and tobacco products are NOT permitted the morning of surgery. - Hearing aids, dentures and glasses may be worn the morning of surgery. - NO jewelry, body piercings, makeup, hairpins or contacts are to be worn the day of surgery. If you develop symptoms such as a fever, cold, or flu, or have other changes to your health within TWO DAYS of scheduled surgery or the morning of surgery, please contact the surgery center above. Personal Belongings: -Please have photo ID and insurance cards. -If you do not have a copy of advance directives on file with us, please bring a copy with you on the day of surgery. - Leave ALL valuables and money at home or with family members. For Outpatient Procedures: - YOU MUST HAVE A RESPONSIBLE SALES ADMINISTRATOR TAKE YOU HOME. A LIP CUTTER OR SAFE DEPOSIT BOX RENTAL CLERK CANNOT BE MADE A RESPONSIBLE SALES ADMINISTRATOR. - We recommend that a responsible person stays with you overnight to take care of you. - You cannot stay in a hotel alone after outpatient surgery. You will not be permitted to have yoursurgery, if you do not have someone to take care of you. Arrival Time for Surgery: - To obtain your arrival time for surgery, call your physician's office the day before your surgery. - If your surgery is scheduled for Thursday, call the Thursday before. Your surgeon s induction coordination engineer will tell you what time to call the office. - If you have not reached the departmental induction coordination engineer by 5 P.M., call [phone] after 5 P.M. the day before your surgery. Please be aware that emergency situations arise, which may delay or change your surgical time. If this happens, we will notify you as soon as possible and regret any inconvenience. If you already have an Advance Directive, please fax a copy to [phone] or email to for it to be added to your chart. If you do not have an Advance Directive, you can find the appropriate form and more information at [email or web address]. We recommend that youcomplete the Advance Directive form found on the website and bring it with you the day of your surgery. It can be witnessed and scanned into your chart that day. Linh Dickinson PA-C documented in this encounterK[facility]02-20-2023 History and physical note * Linh Dickinson PA-C - 05/12/2022 2:10 PM EST PREANESTHESIA CONSULT CLINIC TELEHEALTH VISIT Patient has been identified by name and date of : Yes This is a virtual visit using [employer] video visit. It require patient-provider interaction for the medical decision making as documented below. Reason for contact: PACC visit Accompanied by: Self Scheduled Surgery: REPLACEMENT PERIPHERAL NEUROSTIMULATOR PULSE GENERATOR/ Battery change Subjective CHIEF COMPLAINT: Anal sphincter incontinence HPI: This is a 72 year old female who presents for preop evaluation. Patient has been having fecal incontinence for the past few years. She underwent a RYGB in 2019. She also complains of rectal fullness and diarrhea. She is on Bentyl as needed. She denies fever, chills, SOB and chest pain. 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 Hypertensive kidney disease with stage 3 chronic kidney disease ([facility]) De Quervain's Tenosynovitis, Left Joint Stiffness of Hand, Left Metacarpophalangeal Joint Pain of Left Hand Finger Pain, Left Asthma Stage 3 Chronic Kidney Disease ([facility]) S/P Gastric Bypass Closed Displaced Fracture of Right Femoral Neck ([facility]) Hyponatremia Hip Fracture Requiring Operative Repair, Right, Closed, Initial Encounter ([facility]) PAST MEDICAL HISTORY Diagnosis Date Allergic rhinitis Arthritis [facility], knee Asthma CKD (chronic kidney disease) 11/01/2018 Class 3 severe obesity with serious comorbidity and body mass index (BMI) of 40.0 to 44.9 in adult ([facility]) 08/19/2018 Coronary artery disease 10/28/[address] Salazar GERD (gastroesophageal reflux disease) History of transfusion HTN (hypertension) Hypothyroidism Mixed hyperlipidemia NIDDM (non-insulin dependent 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) MARIBEL on CPAP CPAP 9Cm Renal lesion 01/15/2015 Suggest renal US every 1-2 years per PCP or nephro. Snoring Type 2 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 with hyperglycemia, with long-term current use of insulin ([facility]) 02/27/2001 PAST SURGICAL HISTORY Procedure Laterality Date ABDOMINAL SURGERY HX COLONOSCOPY 11/05/2016 Tammi- divertiuclosis, internal hemorrhoids, repeat in 5 years COLONOSCOPY 04/02/2022 repeat in 5 years due to reported prior history of polyps COSMETIC ASSESSMENT EGD 11/05/2016 Tammi- gastritis EGD 09/08/2018 /Gastritis EGD 04/02/2020 EGD 04/02/2022 EYE SURGERY HX FRACTURE SURGERY GASTRECTOMY,PART DISTAL;W/GASTRODUODENOSTO GASTRIC BYPASS HX 12/13/2018 HYSTERECTOMY JOINT REPLACEMENT HX OOPHORECTOMY PARTIAL OR TOTAL PAST SURGICAL HISTORY OF 2009 hemmroidectomy/sphincterectomy - Dr Nichole PAST SURGICAL HISTORY OF 2008 total left knee replacement PAST SURGICAL HISTORY OF 2003 partial right knee replacement PAST SURGICAL HISTORY OF 1990 total hysterectomy PAST SURGICAL HISTORY OF 2010 lDr Mansoor - [place] elbow fracture - traumatic. radial head replacement PAST SURGICAL HISTORY OF Bilateral 2016 hand surgery PAST SURGICAL HISTORY OF Left RELEASE CONTRACTURE DEQUERVAINS S INSERT PINN METAL NTRL HIP Right 11/17/2021 SKIN BIOPSY HX TUBAL LIGATION HX VAGINAL HYSTERECTOMY FAMILY HISTORY Problem Relation Age of Onset Diabetes Father other (Squamous cell ca) Father other (renal cell ca) Father 1999 other (htn) Father other (polio) Mother other (renal cell ca) Brother 2010 other (Thyroid Cancer) Sister other (thyroid disease) Sister ca Obesity Paternal Grandmother Obesity Daughter Thyroid Daughter Anesthesia Problems No Family History Social History Tobacco Use Smoking status: Former Packs/day: 1.50 Years: 22.00 Pack years: 33.00 Types: Cigarettes Quit date: 1989 Years since quittin.1 Smokeless tobacco: Never Vaping Use Vaping Use: Never used Substance Use Topics Alcohol use: Yes Comment: few times a year. mixed drinls/marcelino. 3 in sitting. Drug use: No Comment: denies tx for drug/alcohol abuse in the past. ALLERGIES Allergen Reactions Vicodin [Hydrocodon* Itching Pt not sure if she has an allergy but states she wants it documented. MEDICATIONS: Current Outpatient Medications Medication Sig scopolamine (TRANSDERM-SCOP) patch 1.5 mg/72 hr (delivers 1 mg over 3 days) Apply 1 Patch as directed every 72 hours. Apply one patch behind the ear every 3 days esomeprazole (NEXIUM) 40 mg capsule TAKE ONE CAPSULE BY MOUTH twice daily. glimepiride (AMARYL) 2 mg tablet Take 1 tablet by mouth daily with breakfast. atorvastatin (LIPITOR) 20 mg tablet Take 1 tablet by mouth daily at bedtime. For cholesterol. APPLE CIDER VINEGAR ORAL Take 1 capsule by mouth once daily. 450 mg capsule OTC NUTRITIONAL SUPPLEMENT Take 1 capsule by mouth once daily. Tumeric - 2000 mg capsule levothyroxine (SYNTHROID) 100 mcg tablet Take 1 tablet by mouth once daily. buPROPion XL (WELLBUTRIN XL) 300 mg 24 hr tablet Take 1 tablet by mouth once daily. lisinopril (ZESTRIL, PRINIVIL) 10 mg tablet Take 1 tablet by mouth once daily. dicyclomine (BENTYL) 20 mg tablet Take 1 tablet by mouth before meals and at bedtime. (Patient taking differently: Take 20 mg by mouth twice daily before meals (0600/1600).) dulaglutide (TRULICITY) 0.75 mg/0.5 mL pen injector Inject 0.75 mg subcutaneously one time a week. Inject dose once per week. Discard Pen After FLUoxetine (PROZAC) 20 mg capsule Take 3 capsules by mouth once daily. (Patient taking differently:Take 60 mg by mouth once daily. Pt takes all 3 capsules in the morning) MULTI-VITAMIN ORAL Take 1 tablet by mouth once daily. Takes bariatric multivitamin daily albuterol HFA (PROVENTIL HFA, VENTOLIN HFA) 90 mcg/actuation inhaler Inhale 2 Puffs as instructed every 6 hours as needed for wheezing/shortness of breath. (Patient not taking: Reported on 05/12/2022) calcium citrate/vitamin D3 (CALCIUM CITRATE + D ORAL) Take 1 tablet by mouth twice daily. (Patient not taking: Reported on 05/12/2022) No current facility-administered medications for this visit. COVID VACCINATION STATUS: Fully vaccinated REVIEW OF SYSTEMS: Pain Assessment: General: No weight loss, malaise or fevers. 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 No neurological symptoms or problems. Respiratory: Negative for COPD, Current cough, Dyspnea, Pneumonia within 6 weeks (date) +MARIBEL, +asthma Cardiovascular: Negative for Recent MD, Angina, Arrhythmia, CAD, Chest Pain, CHF, PVD, Valvular Heart Disease, DVT/PE +HLD, +HTN GI: Negative for Nausea, Vomiting, Abdominal pain, Liver disease, ETOH > 2 drinks / day +IBS, +GERD : Negative for dysuria, frequency, incontinence, and hematuria +CKD - stage 3 [employer]: Negative for abnormal vaginal bleeding, abnormal vaginal discharge. : Denies, No LMP recorded. Patient has had a hysterectomy. Endocrine: Has not taken steroids within the past 30 days. +T2DM on Glipizide and Trulicty, last A1c 6.0% on 04/22/22, FBS ~110, +hypothyroidism Hematology: No history of bleeding or clotting disorder. Pt is not taking anti- coagulation or platelet medications. No history of hematological symptoms or problems. Oncology: No history of CA metastasis, chemo within 30 days, or radiotherapy within 90 days. Has not lost 10% of body wt in 6 months. No history of oncological symptoms or problems. Psych: No history of psychiatric symptoms or problems. Musculoskeletal: +chronic right knee pain Skin: Negative for lesions, rash and itching. Objective PHYSICAL EXAM: Ht 5' 2 (1.58m) Wt 155 lb (70.3kg) BMI 28.34 kg/(m^2). VIDEO EXAM: (if completed, performed via video enabled technology) GENERAL: alert and appropriate, in no distress, well-hydrated, well nourished, and happy, smiling, interactive SKIN: no rash noted HEAD: normocephalic, no abnormality or lesion noted EYES: no injection, wearing glasses OROPHARYNX: moist mucus membranes NECK: full ROM, no cervical LNs noted RESPIRATORY: breathing non-labored CHEST: equal chest rise with normal respiratory effort HEART: Radial pulse palpated by patient and when counted out loud it was normal. NEUROLOGIC: no obvious deficit Diagnostic tests reviewed for today's visit: Lab Value Units Date High Low HB 13.9 g/dL 04/22/2022 15.5 11.5 HCT 41.7 % 04/22/2022 46.0 36.0 WBC 10.54 k/uL 04/22/2022 11.00 3.70 PLT 442 k/uL 04/22/2022 400 150 NA 138 mmol/L 01/29/2022 144 136 K 4.5 mmol/L 01/29/2022 5.1 3.7 GLUC 109 mg/dL 01/29/2022 99 74 BUN 11 mg/dL 01/29/2022 21 7 CREAT 1.10 mg/dL 01/29/2022 0.96 0.58 PTSEC No results within date range. INR No results within date range. APTT No results within date range. ALT 38 U/L 01/29/2022 38 7 AST 39 U/L 01/29/2022 35 13 TBILI 0.2 mg/dL 01/29/2022 1.3 0.2 TSH 2.640 mIU/L 04/22/2022 4.200 0.270 Lab Value Units Date High Low HCGQT No results within date range. UHCG No results within date range. HCG, BODY* No results within date range. Lab Value Units Date High Low ABORHD No results within date range. ABSCREEN No results within date range. Hemoglobin A1C (%) Date Value 04/22/2022 6.0 01/29/2022 5.8 09/30/2021 6.1 07/29/2021 6.2 02/27/2021 6.6 10/19/2020 7.5 09/05/2020 7.4 01/24/2020 6.3 01/24/2020 6.3 Most recent labs in [facility] reviewed Most recent EKG 11/17/21 Diagnosis: NORMAL SINUS RHYTHM NORMAL ECG NO PREVIOUS ECGS AVAILABLE Confirmed by MD DOSS GREGORY () on 11/18/2021 9:09:47 AM Most recent stress test 09/13/20 CONCLUSIONS: 1. SPECT Perfusion Study: Normal. 2. There is no scintigraphic evidence for inducible ischemia. 3. No evidence of scarred myocardium. 4. Left ventricle is normal in size. The left ventricle systolic function is normal. 5. Right ventricle is normal in size. 6. This is a low risk scan. LVEF % 65 Impression/Recommendations ASSESSMENT: Essential hypertension -on Lisinopril -BP not measured today, but BP at last office visit 04/02/22 was 160/78 MARIBEL (obstructive sleep apnea) -hasn't used CPAP since she lost weight after bariatric surgery Asthma -only uses Albuterol inhaler when she has a respiratory illness, hasn't used in over a month -denies new or worsened SOB, cough or wheezing Hypothyroid -stable on Synthroid Type 2 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 with stage 3 chronic kidney disease, without long-term current use of insulin (HCC) -on Glipizide and Trulicity -last A1c 6.0% on 04/22/22 -FBS ~110 Stage 3 chronic kidney disease (HCC) -last eGFR 54 on 01/29/22 METS: Walk a block or two on level ground (2.75 METs) Patient denies any chest pain or undue shortness of breath with the above physical activity. ASA Class: 3 ANESTHESIA FINDINGS: Intubation History: No history of difficult intubation Significant Anesthesia Considerations: None Airway Exam: General: Normal appearance Mallampati Score is CLASS I ULBT: Class I - Lower incisors can bite the upper lip above the ilene line Neck: Normal appearance and function, Distance from hyoid to mentum during neck extension is at least 3 finger breaths Mouth: Normal tongue size and Mouth opening greater than 2 finger breaths Dentition: Intact Airway History: No abnormal airway history STOP BANG Score: MARIBEL does not use CPAP/BiPAP PLAN: This patient is optimally prepared for surgery. CONSULTS: Patient does not require consults for optimization at this time. The Following Tests/Procedures Have Been Initiated: Labs not indicated per [facility] protocol, EKG not indicated per [facility] protocol Planned Anesthetic: Per anesthesia choice Instructions Given to Patient: Patient given verbal instructions and voices comprehension and compliance. Copy sent electronically via My Chart, email, or mobile device. I spent more than 0-20 minutes [id number] with the patient and over half the time was devoted to counseling and/or coordination of care. This is a virtual visit. It required patient-provider interaction for the medical decision making as documented above. SIGNATURE: Linh Dickinson PA-C PATIENT NAME: Mary Jane De Paz DATE: 05/12/22 TIME: 2:15 PM PAGER/CONTACT #: documented in this encounterK[facility]-2023 Miscellaneous Notes* Telephone Encounter - Lindsey Stewart - 05/12/2022 9:01 AM EST The Patient is returning a call back from nursing. She stated that it's pertaining to her surgery for tomorrow. Please Call [phone] documented in this encounterK[facility]02-10-2023 Miscellaneous Notes* Telephone Encounter - Estela Diaz APRN.CNP - 05/02/2022 8:33 AM EST Patient was scheduled for virtual [facility] appt at 8:10 am today. Patient did not check in for visit. Called patient at 8:15 am to see if they needed any assistance logging in and left voicemail. This message routed to [facility] schedulers to contact patient to reschedule [facility] appt. DOS 05/13/22. Thanks, Estela Diaz APRN.CNP documented in this encounterK[facility]02-06-2023 Miscellaneous Notes* Telephone Encounter - Ramo Russo LPN - 04/28/2022 1:04 PM EST Unable to fax form on 04/25 d/t no computer/fax/phones. Form faxed today. Ramo Russo LPN * Telephone Encounter - Christine Morgan APRN.CNP - 04/25/2022 1:27 PM EST Forms complete. Can please fax in as requested. Christine Morgan APRN.CNP * Telephone Encounter - Ramo Russo LPN - 04/22/2022 2:40 PM EST Patient has been identified by name and date of : Yes, Provider Christine Morgan CNP Date 04/22/22 Time 2:40pm Type of form: Prescription Assistance Form received via: Walk in When form is completed, fax form to fax number provided. Form has been forwarded to: Provider's desk. Provider name: JOSEFINA Browne LPN documented in this encounterK[facility]01-31-2023 History of Present illness Narrative* Donavon Patricia MD - 04/22/2022 4:30 PM EST Orthopaedic Office Note: April 22, 2022 4:35 PM Mary Jane De Paz 72 year old History: Please see my previous notes for Mary Jane. She has a failed partial knee replacement that is very symptomatic. She also had percutaneous screw fixation of a right femoral neck fracture. We plan for repeat visit and a repeat Medrol Dosepak, as that helped her last time, to assist in anupcoming anniversary trip with her . In the interim her right hip started to bother her. Subjective: Right knee greater than right hip pain New right groin pain with certain internal rotation and flexion motions Updated ROS: No changes Updated Exam: Right lower Extremity Unchanged knee exam In regards to right hip: Denies pain with flexion internal rotation and adduction Updated Imaging: Updated imaging of the hip reveals some subchondral collapse around the screws by the femoral head Assessment and Plan: We had a long discussion today about her hip and her knee. Her knee still remains more symptomatic item. She has a failed unicompartmental replacement. The brace and the Medrol Dosepak did help and she would like another Medrol Dosepak for her upcoming trip which I prescribed. We discussed risks and benefits of conversion to total knee replacement length today again. She understands these and wishes to proceed. An informed consent was signed. We will plan to do this robotically assisted in June. A CT scan was ordered as it is needed for this robotic revision conversion. Regarding her right hip I do believe she has some collapse of the subchondral surface of the femoral head. This is likely contributing to her groin pain. We discussed a total hip replacement conversion for this. Currently it is not symptomatic enough for her to consider this before her knee. We cancontinue to monitor her symptoms and imaging in this regard. I spent a total of approximately 15 minutes on the date of the service which included preparing to see the patient, [id number] patient care, completing clinical documentation, obtaining and/or reviewing separately obtained history, performing a medically appropriate examination, counseling and educating the patient/family/caregiver, and care coordination (not separately reported). Donavon Patricia MD Orthopaedic Surgery documented in this encounterK[facility]01-31-2023 History of Present illness Narrative* Julieth James RT(R) - 04/22/2022 3:50 PM EST Radiology Service Progress Note PATIENT NAME: Mary Jane De Paz DATE OF SERVICE: April 22, 2022 TIME: 4:17 PM PATIENT IDENTITY VERIFICATION COMPLETED USING TWO (2) IDENTIFIERS: Name and Date of confirmedby patient verbally. FALL SCREENING: Has the patient had 2 falls in the last year or 1 fall with injury or currently using an Ambulatory Assistive Device (Walker, Cane, Wheelchair, Crutches, etc.)? No PATIENT GENDER DATA: Female. status: : No status: N/A PATIENT RELEVANT IMPLANT DATA REVIEWED: Not Applicable RADIOLOGY DEPARTMENT: General X-ray: Exam(s) Completed: Pelvis X-Ray: Pelvis with Hip Right PERIPHERAL IV DATA: Not applicable SIGNED BY: trae Rangel April 22, 2022 4:17 PM documented in this encounterK[facility]01-24-2023 History of Present illness Narrative* Dionna Fong PA-C - 04/15/2022 10:56 AM EST In lieu of an in-person visit due to COVID-19 concerns, a distance health visit was performed on the patient. Patient is aware that I am not fully able to assess symptoms and do a full physical examination including vital signs assessment at this time. Patient consents to this encounter. FOLLOW UP VISIT - ENDOSCOPY NAME: Mary Jane De Paz [facility] NO.: [id number] DATE OF SERVICE: 04/15/2022 : 1950 REFERRING PHYSICIAN: Christine Morgan APRN.JOSEFINA Gray is a patient I am following for history of colon polyps and need for surveillance colonoscopy. Patient had also noted some belching as well as history of gastritis and anemia, for which EGDwas recommended at same setting as colonoscopy. Dr. Toscano performed upper and lower endoscopy on 04/02/22. The patient was found to have erythematous mucosa of the gastric body/pouch, and irregular Z-line. Perianal scar tissue and diverticulosis were found on colonoscopy. Pathology demonstrated: FINAL DIAGNOSIS A. Stomach, antrum, biopsy: - Gastric oxyntic mucosa with changes consistent with proton pump inhibitor effect. - No morphological evidence of Helicobacter pylori organisms. B. Esophagogastric junction, biopsy: - Squamous epithelium with no significant diagnostic alteration. - Inflamed gastric cardia-type mucosa. - No evidence of intestinal metaplasia or dysplasia. The patient notes no complaints since the procedure. Assessment IMPRESSION: s/p EGD and colonoscopy, no evidence of GI bleeding. GERD. History of colon polyps-prior pathology reports not available for review PLAN: The operative findings and pathology report were reviewed with the patient, and the patient has hadthe opportunity to ask questions and have questions answered. If the patient notes any problems or changes in bowel function, the patient should contact me immediately. Otherwise I recommend follow up colonoscopy in 5 years for surveillance due to history of colon polyps. HM updated and recall letter generated. Follow ip with PCP for anemia. If this persists and any concern for GI source of bleeding remains, would recommend seeing GI for capsule endoscopy Patient verbalized understanding of all above and agreed with the plan Diagnoses: (Z86.010) History of colonic polyps (primary encounter diagnosis) (K21.9) GERD without esophagitis I spent a total of 22 minutes on the date of the service which included preparing to see the patient, completing clinical documentation, obtaining and/or reviewing separately obtained history, performing a medically appropriate examination, counseling and educating the patient/family/caregiver, inde pendently interpreting results (not separately reported), and communicating results to the patient/family/caregiver. Dionna Fong PA-C documented in this encounterK[facility]01-20-2023 Miscellaneous Notes* Telephone Encounter - Christine Morgan APRN.[facility] - 04/11/2022 11:19 AM EST Script sent. Christine Morgan APRN.JOSEFINA * Telephone Encounter - Jean Pierre Joy Ma - 04/11/2022 11:07 AM EST Trip is 7 days Jean Pierre Joy Ma * Telephone Encounter - Melissa Morse RN - 04/10/2022 4:01 PM EST Patient calling and states she and her will be going on a cruise. Pt asking for scopolomine patch prescription, if provider agreeable. Script pended for review. Please call pt with update. Thank you. Patient has been identified by name and date of : Yes Patient phones for refill(s): Requested Prescriptions Pending Prescriptions Disp Refills scopolamine (TRANSDERM-SCOP) patch 1.5 mg/72 hr (delivers 1 mg over 3 days) 5 Patch 1 Sig: Apply 1 Patch as directed every 72 hours. Apply one patch behind the ear every 3 days Date of last office visit in primary care: 01/29/22 Last 2 Encounter Wt Readings: Date: Wt: 03/21/2022 73.2 kg (161 lb 6.4 oz) 02/25/2022 73.8 kg (162 lb 12.8 oz) Thank you. Melissa Morse RN documented in this encounterK[facility]01-11-2023 Nurse Note* Kaitlin Nava RN - 04/02/2022 8:21 AM EST Arrived in phase II via cart. Left lateral position. Sedated, but responds to verbal stimuli. Colornormal; skin warm and dry. Respirations wnl and unlabored. Abdomen soft and with + bowel sounds in quads X 4. Patient resting comfortably. Family at bedside. Kaitlin Nava RN documented in this encounterKet[facility]01-11-2023 History and physical note * Keke Toscano MD - 04/02/2022 7:30 AM EST UPDATED PROCEDURAL SEDATION HISTORY AND PHYSICAL EXAMINATION SERVICE DATE: 04/02/2022 SERVICE TIME: 6:47 PHYSICAL EXAM MUST BE COMPLETED ON ADMISSION PROCEDURE: EGD and colonoscopy, possible biopsies Procedure Indications: history of colon polyps, anemia, heartburn The History and Physical (completed in the past 30 days) has been reviewed and the patient has beenexamined. The contents accurately reflect the patient's condition with the following additions or revisions since the H&P was completed. ASA Class: ASA Class:: Patient with mild systemic disease Examination indicates no changes. AIRWAY: Airway Visualization of Uvula: Yes Mouth opening greater than 2 fingerbreadths: Yes Neck Full Range of Motion: Yes LUNGS: Lungs clear to auscultation CARDIAC: Regular rhythm,Regular rate Provisional Diagnosis/Treatment Plan: EGD and colonoscopy, possible biopsies SEDATION GOAL: Moderate This H&P can be found in the Electronic Medical Record. SIGNATURE: Keke Toscano MD PATIENT NAME: Mary Jane De Paz DATE: April 02, 2022 TIME: 7:34 AM Source Note - Keke Toscano MD - 04/02/2022 7:30 AM EST HISTORY AND PHYSICAL Mary Jane Lawson Baldev 1950 REFERRING PHYSICIAN: Christine Morgan APRN.C* CHIEF COMPLAINT: Consult (colonoscopy) HPI: The patient is a 71 year old female referred for endoscopy. Mary Jane notes a history of colonpolyps and is due for surveillance colonoscopy. Patient denies any weight changes, blood in stools,black tarry stools or abdominal pain. Denies family history of colon issues. 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 States at one point years ago saw someone who discussed possible botox injections, but did not pursue at that time. Notes issues are getting worse and interestedin possible treatment. Denies any recent follow-up with colorectal surgery. The patient notes no upper GI complaints. Mary Jane has undergone prior endoscopy. Most recent colonoscopy 11/05/16. No concerning findings, repeat colonoscopy recommended in 5 years due to history of polyps. Denies problems with sedation in the past PAST MEDICAL HISTORY PAST MEDICAL HISTORY Diagnosis Date Allergic rhinitis Arthritis [facility], knee Asthma CKD (chronic kidney disease) 11/01/2018 Class 3 severe obesity with serious comorbidity and body mass index (BMI) of 40.0 to 44.9 in adult ([facility]) 08/19/[address] Salazar GERD (gastroesophageal reflux disease) HTN (hypertension) Hypothyroidism Mixed hyperlipidemia NIDDM (non-insulin dependent 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) MARIBEL on CPAP CPAP 9Cm Renal lesion 01/15/2015 Suggest renal US every 1-2 years per PCP or nephro. Snoring Type 2 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 with hyperglycemia, with long-term current use of insulin ([facility]) 02/27/2001 PAST SURGICAL HISTORY PAST SURGICAL HISTORY Procedure Laterality Date COLONOSCOPY 11/05/2016 Tammi- divertiuclosis, internal hemorrhoids, repeat in 5 years COSMETIC ASSESSMENT EGD 11/05/2016 Tammi- gastritis EGD 09/08/2018 /Gastritis EGD 04/02/2020 EYE SURGERY HX FRACTURE SURGERY GASTRIC BYPASS HX 12/13/2018 HYSTERECTOMY JOINT REPLACEMENT HX OOPHORECTOMY PARTIAL OR TOTAL PAST SURGICAL HISTORY OF 2009 hemmroidectomy/sphincterectomy - Dr Nichole PAST SURGICAL HISTORY OF 2008 total left knee replacement PAST SURGICAL HISTORY OF 2003 partial right knee replacement PAST SURGICAL HISTORY OF 1990 total hysterectomy PAST SURGICAL HISTORY OF 2010 lDr Mansoor - [place] elbow fracture - traumatic. radial head replacement PAST SURGICAL HISTORY OF Bilateral 2016 hand surgery PAST SURGICAL HISTORY OF Left RELEASE CONTRACTURE DEQUERVAINS S INSERT PINN METAL NTRL HIP Right 11/17/2021 SKIN BIOPSY HX TUBAL LIGATION HX VAGINAL HYSTERECTOMY CURRENT MEDICATIONS Current Outpatient Medications Medication Sig glimepiride (AMARYL) 2 mg tablet Take 1 tablet by mouth daily with breakfast. atorvastatin (LIPITOR) 20 mg tablet Take 1 tablet by mouth daily at bedtime. For cholesterol. APPLE CIDER VINEGAR ORAL Take 1 capsule by mouth once daily. 450 mg capsule OTC NUTRITIONAL SUPPLEMENT Take 1 capsule by mouth once daily. Tumeric - 2000 mg capsule esomeprazole (NEXIUM) 40 mg capsule TAKE ONE CAPSULE BY MOUTH twice daily. levothyroxine (SYNTHROID) 100 mcg tablet Take 1 tablet by mouth once daily. buPROPion XL (WELLBUTRIN XL) 300 mg 24 hr tablet Take 1 tablet by mouth once daily. traZODone (DESYREL) 100 mg tablet Take 2 tablets by mouth daily at bedtime. lisinopril (ZESTRIL, PRINIVIL) 10 mg tablet Take 1 tablet by mouth once daily. dicyclomine (BENTYL) 20 mg tablet Take 1 tablet by mouth before meals and at bedtime. (Patient taking differently: Take 20 mg by mouth twice daily before meals (0600/1600).) dulaglutide (TRULICITY) 0.75 mg/0.5 mL pen injector Inject 0.75 mg subcutaneously one time a week. Inject dose once per week. Discard Pen After FLUoxetine (PROZAC) 20 mg capsule Take 3 capsules by mouth once daily. (Patient taking differently:Take 60 mg by mouth once daily. Pt takes all 3 capsules in the morning) calcium citrate/vitamin D3 (CALCIUM CITRATE + D ORAL) Take 1 tablet by mouth twice daily. MULTI-VITAMIN ORAL Take 1 tablet by mouth once daily. Takes bariatric multivitamin daily No current facility-administered medications for this visit. ALLERGIES: Vicodin [Hydrocodone-Acetaminophen] PERSONAL HISTORY: SOCIAL HISTORY Social History Tobacco Use Smoking status: Former Packs/day: 1.50 Years: 22.00 Pack years: 33.00 Types: Cigarettes Quit date: 1989 Years since quittin.9 Smokeless tobacco: Never Vaping Use Vaping Use: Never used Substance Use Topics Alcohol use: Yes Comment: few times a year. mixed drinls/marcelino. 3 in sitting. Drug use: No Comment: denies tx for drug/alcohol abuse in the past. FAMILY HISTORY: FAMILY HISTORY FAMILY HISTORY Problem Relation Age of Onset other (polio) Mother Diabetes Father other (Squamous cell ca) Father other (renal cell ca) Father 1999 other (htn) Father other (Thyroid Cancer) Sister other (thyroid disease) Sister ca other (renal cell ca) Brother 2010 Obesity Paternal Grandmother Obesity Daughter Thyroid Daughter REVIEW OF SYMPTOMS: The review of systems data was entered by the nurse and reviewed by me Nursing Notes: Leyla Kincaid LPN 02/12/2022 2:05 PM Signed REVIEW OF SYSTEMS: General: The patient NOTES fatigue, denies weight loss, denies weight gain, NOTES feeling hot, and denies feelings of cold. Eyes: The patient denies glaucoma, denies eye injury/surgery, does not wear glasses or contacts. Ear/Nose/Throat: The patient denies allergies, denies hayfever, denies ear infections, and denies bloody noses. Cardiovascular: The patient denies chest pain, denies heart disease, NOTES high blood pressure,denies cardiac stent, denies prior heart attack, denies irregular heart beat, NOTES high cholesterol, denies poor circulation, denies heart failure, other cardiac issues, denies claudication, NOTES cold feet, denies peripheral arterial stent. Respiratory: The patient denies tuberculosis, NOTES pneumonia, denies frequent cough, denies pulmonary embolism, NOTES shortness of breath, and denies coughing up blood. Gastrointestinal: The patient NOTES difficulty swallowing, NOTES acid reflux, NOTES ulcers, denies vomiting, denies jaundice/hepatitis, denies gallbladder problems, denies black or tarry stools, notes hemorrhoids, denies bleeding from rectum, notes diverticulitis, NOTES constipation, NOTES diarrhea, NOTES loss of stool control, and denies hernias. Kidney/Bladder: The patient denies kidney stones, NOTES urine infections, and denies bloody urine. Skin: The patient denies a history of skin cancer, denies bleeding/changing moles, and denies a history of skin rash. Neurologic: The patient denies a history of epilepsy/convulsions, denies headaches, denies head/spinal injuries, and denies stroke/TIA. Psychiatric: The patient NOTES psychiatric medications, NOTES depression, and denies voices, deniessubstance abuse. Endocrine: The patient NOTES thyroid disorders, NOTES diabetes, and denies hormonal problems. Hematologic: The patient denies a history of bruising, denies bleeding, and NOTES anemia, denies blood clots. Infections: The patient NOTES a history of measles and mumps, denies rheumatic fever, and denies sexually transmitted diseases. Musculoskeletal: The patient NOTES back pain/injury, denies back problems, NOTES sciatica, NOTES knee/foot trouble, NOTES arthritis, or NOTES gout. When was patient's last Mammogram screening? 2021 Last Colonoscopy: 2016 Leyla Kincaid LPN I have confirmed and edited as necessary, the PFSH and ROS obtained by others. Dionna Fong PA-C PHYSICAL EXAMINATION: General: The patient is 71 year old female, well nourished, well hydrated in no acute distress. Thepatient is oriented to time, place, and person. VITALS: Blood pressure 128/78, pulse 105, temperature 36.3 C (97.4 F), height 157.5 cm (5' 2), weight 73.6 kg (162 lb 3.2 oz), SpO2 96 %. Body mass index is 29.67 kg/m . HEENT: Normal cephalic, ataumatic, pupils are equally round, sclera are anicteric, mucous membranesare moist, oropharynx is clear. Neck has no masses, asymmetry or lymphadenopathy. Respiratory: Clear to auscultation and percussion. Normal respiratory excursion and pattern. Cardiac: Examination is regular rate and rhythm. Normal S1/S2 Abdominal exam: Soft, nontender, with no palpable masses. No hepatosplenomegaly. No palpable hernias. Extremities: no clubbing, cyanosis or edema. No adenopathy. LABORATORY VALUES: As Noted RADIOLOGIC STUDIES: As Noted Assessment IMPRESSION: encounter for surveillance colonoscopy, history of colon polyps. Belching, history of gastritis and anemia-recommend EGD in addition to colonoscopy. History of anal sphincter/incontinenceissues-recommend consult to colorectal PLAN: I have reviewed my findings with the surgeon. Will plan for upper and lower endoscopy. We discussed the risks and benefits of the planned endoscopy. I have informed the patient that complications can occur including failure to complete the endoscopy and perforation. The patient had the opportunity to ask questions concerning the planned endoscopy. My staff has also explained the procedure to the patient in understandable terms and has given the patient printed material concerning the procedure. The patient freely consents to surgery. The patient was offered a surgery/procedure at a [facility] facility. I have counseled the patient regarding the risk of exposure to and/or potential harm posed by the COVID-19 virus with having a surgery/procedure at this time versus the risk of delaying the surgery/procedure. It is not possible to know either the risk of delaying the surgery or procedure or chance of getting an infection with perfect accuracy, but a joint decision was made between the patient and myself to proceed at this time with endoscopy. I plan to use miralax bowel preparation I have explained to the patient the difference between IV conscious sedation and MAC anesthesia - and I have offered either, according to the patient's wishes. I have explained that with IV conscioussedation there is no anesthesia provider available and therefore there is a limitation of the amount of IV medications that can be given and that the patient may wake up in the middle of the procedure and/or experience pain/discomfort during the procedure. Further discussion was done and the patient was given the opportunity to ask questions and all questions were answered. The patient chooses IVconscious sedation Diagnoses: (Z86.2) History of anemia (primary encounter diagnosis) (Z12.11) Screening for colon cancer (Z87.19) History of gastritis (R15.9) Anal sphincter incontinence * Keke Toscano MD - 04/02/2022 7:30 AM EST HISTORY AND PHYSICAL Mary Jane De Paz 1950 REFERRING PHYSICIAN: Christine Morgan APRN.C* CHIEF COMPLAINT: Consult (colonoscopy) HPI: The patient is a 71 year old female referred for endoscopy. Mary Jane notes a history of colonpolyps and is due for surveillance colonoscopy. Patient denies any weight changes, blood in stools,black tarry stools or abdominal pain. Denies family history of colon issues. 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 States at one point years ago saw someone who discussed possible botox injections, but did not pursue at that time. Notes issues are getting worse and interestedin possible treatment. Denies any recent follow-up with colorectal surgery. The patient notes no upper GI complaints. Mary Jane has undergone prior endoscopy. Most recent colonoscopy 11/05/16. No concerning findings, repeat colonoscopy recommended in 5 years due to history of polyps. Denies problems with sedation in the past PAST MEDICAL HISTORY PAST MEDICAL HISTORY Diagnosis Date Allergic rhinitis Arthritis [facility], knee Asthma CKD (chronic kidney disease) 11/01/2018 Class 3 severe obesity with serious comorbidity and body mass index (BMI) of 40.0 to 44.9 in adult (HCC) 08/19/[address] Salazar GERD (gastroesophageal reflux disease) HTN (hypertension) Hypothyroidism Mixed hyperlipidemia NIDDM (non-insulin dependent 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) MARIBEL on CPAP CPAP 9Cm Renal lesion 01/15/2015 Suggest renal US every 1-2 years per PCP or nephro. Snoring Type 2 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 with hyperglycemia, with long-term current use of insulin (HCC) 02/27/2001 PAST SURGICAL HISTORY PAST SURGICAL HISTORY Procedure Laterality Date COLONOSCOPY 11/05/2016 Tammi- divertiuclosis, internal hemorrhoids, repeat in 5 years COSMETIC ASSESSMENT EGD 11/05/2016 Tammi- gastritis EGD 09/08/2018 /Gastritis EGD 04/02/2020 EYE SURGERY HX FRACTURE SURGERY GASTRIC BYPASS HX 12/13/2018 HYSTERECTOMY JOINT REPLACEMENT HX OOPHORECTOMY PARTIAL OR TOTAL PAST SURGICAL HISTORY OF 2009 hemmroidectomy/sphincterectomy - Dr Nichole PAST SURGICAL HISTORY OF 2008 total left knee replacement PAST SURGICAL HISTORY OF 2003 partial right knee replacement PAST SURGICAL HISTORY OF 1990 total hysterectomy PAST SURGICAL HISTORY OF 2010 lDr Mansoor - Parmaeft elbow fracture - traumatic. radial head replacement PAST SURGICAL HISTORY OF Bilateral 2016 hand surgery PAST SURGICAL HISTORY OF Left RELEASE CONTRACTURE DEQUERVAINS S INSERT PINN METAL NTRL HIP Right 11/17/2021 SKIN BIOPSY HX TUBAL LIGATION HX VAGINAL HYSTERECTOMY CURRENT MEDICATIONS Current Outpatient Medications Medication Sig glimepiride (AMARYL) 2 mg tablet Take 1 tablet by mouth daily with breakfast. atorvastatin (LIPITOR) 20 mg tablet Take 1 tablet by mouth daily at bedtime. For cholesterol. APPLE CIDER VINEGAR ORAL Take 1 capsule by mouth once daily. 450 mg capsule OTC NUTRITIONAL SUPPLEMENT Take 1 capsule by mouth once daily. Tumeric - 2000 mg capsule esomeprazole (NEXIUM) 40 mg capsule TAKE ONE CAPSULE BY MOUTH twice daily. levothyroxine (SYNTHROID) 100 mcg tablet Take 1 tablet by mouth once daily. buPROPion XL (WELLBUTRIN XL) 300 mg 24 hr tablet Take 1 tablet by mouth once daily. traZODone (DESYREL) 100 mg tablet Take 2 tablets by mouth daily at bedtime. lisinopril (ZESTRIL, PRINIVIL) 10 mg tablet Take 1 tablet by mouth once daily. dicyclomine (BENTYL) 20 mg tablet Take 1 tablet by mouth before meals and at bedtime. (Patient taking differently: Take 20 mg by mouth twice daily before meals (0600/1600).) dulaglutide (TRULICITY) 0.75 mg/0.5 mL pen injector Inject 0.75 mg subcutaneously one time a week. Inject dose once per week. Discard Pen After FLUoxetine (PROZAC) 20 mg capsule Take 3 capsules by mouth once daily. (Patient taking differently:Take 60 mg by mouth once daily. Pt takes all 3 capsules in the morning) calcium citrate/vitamin D3 (CALCIUM CITRATE + D ORAL) Take 1 tablet by mouth twice daily. MULTI-VITAMIN ORAL Take 1 tablet by mouth once daily. Takes bariatric multivitamin daily No current facility-administered medications for this visit. ALLERGIES: Vicodin [Hydrocodone-Acetaminophen] PERSONAL HISTORY: SOCIAL HISTORY Social History Tobacco Use Smoking status: Former Packs/day: 1.50 Years: 22.00 Pack years: 33.00 Types: Cigarettes Quit date: 1989 Years since quittin.9 Smokeless tobacco: Never Vaping Use Vaping Use: Never used Substance Use Topics Alcohol use: Yes Comment: few times a year. mixed drinls/marcelino. 3 in sitting. Drug use: No Comment: denies tx for drug/alcohol abuse in the past. FAMILY HISTORY: FAMILY HISTORY FAMILY HISTORY Problem Relation Age of Onset other (polio) Mother Diabetes Father other (Squamous cell ca) Father other (renal cell ca) Father 1999 other (htn) Father other (Thyroid Cancer) Sister other (thyroid disease) Sister ca other (renal cell ca) Brother 2010 Obesity Paternal Grandmother Obesity Daughter Thyroid Daughter REVIEW OF SYMPTOMS: The review of systems data was entered by the nurse and reviewed by ut Nursing Notes: Leyla Kincaid LPN 02/12/2022 2:05 PM Signed REVIEW OF SYSTEMS: General: The patient NOTES fatigue, denies weight loss, denies weight gain, NOTES feeling hot, and denies feelings of cold. Eyes: The patient denies glaucoma, denies eye injury/surgery, does not wear glasses or contacts. Ear/Nose/Throat: The patient denies allergies, denies hayfever, denies ear infections, and denies bloody noses. Cardiovascular: The patient denies chest pain, denies heart disease, NOTES high blood pressure,denies cardiac stent, denies prior heart attack, denies irregular heart beat, NOTES high cholesterol, denies poor circulation, denies heart failure, other cardiac issues, denies claudication, NOTES cold feet, denies peripheral arterial stent. Respiratory: The patient denies tuberculosis, NOTES pneumonia, denies frequent cough, denies pulmonary embolism, NOTES shortness of breath, and denies coughing up blood. Gastrointestinal: The patient NOTES difficulty swallowing, NOTES acid reflux, NOTES ulcers, denies vomiting, denies jaundice/hepatitis, denies gallbladder problems, denies black or tarry stools, notes hemorrhoids, denies bleeding from rectum, notes diverticulitis, NOTES constipation, NOTES diarrhea, NOTES loss of stool control, and denies hernias. Kidney/Bladder: The patient denies kidney stones, NOTES urine infections, and denies bloody urine. Skin: The patient denies a history of skin cancer, denies bleeding/changing moles, and denies a history of skin rash. Neurologic: The patient denies a history of epilepsy/convulsions, denies headaches, denies head/spinal injuries, and denies stroke/TIA. Psychiatric: The patient NOTES psychiatric medications, NOTES depression, and denies voices, deniessubstance abuse. Endocrine: The patient NOTES thyroid disorders, NOTES diabetes, and denies hormonal problems. Hematologic: The patient denies a history of bruising, denies bleeding, and NOTES anemia, denies blood clots. Infections: The patient NOTES a history of measles and mumps, denies rheumatic fever, and denies sexually transmitted diseases. Musculoskeletal: The patient NOTES back pain/injury, denies back problems, NOTES sciatica, NOTES knee/foot trouble, NOTES arthritis, or NOTES gout. When was patient's last Mammogram screening? 2021 Last Colonoscopy: 2016 Leyla Kincaid LPN I have confirmed and edited as necessary, the PFSH and ROS obtained by others. Dionna Fong PA-C PHYSICAL EXAMINATION: General: The patient is 71 year old female, well nourished, well hydrated in no acute distress. Thepatient is oriented to time, place, and person. VITALS: Blood pressure 128/78, pulse 105, temperature 36.3 C (97.4 F), height 157.5 cm (5' 2), weight 73.6 kg (162 lb 3.2 oz), SpO2 96 %. Body mass index is 29.67 kg/m . HEENT: Normal cephalic, ataumatic, pupils are equally round, sclera are anicteric, mucous membranesare moist, oropharynx is clear. Neck has no masses, asymmetry or lymphadenopathy. Respiratory: Clear to auscultation and percussion. Normal respiratory excursion and pattern. Cardiac: Examination is regular rate and rhythm. Normal S1/S2 Abdominal exam: Soft, nontender, with no palpable masses. No hepatosplenomegaly. No palpable hernias. Extremities: no clubbing, cyanosis or edema. No adenopathy. LABORATORY VALUES: As Noted RADIOLOGIC STUDIES: As Noted Assessment IMPRESSION: encounter for surveillance colonoscopy, history of colon polyps. Belching, history of gastritis and anemia-recommend EGD in addition to colonoscopy. History of anal sphincter/incontinenceissues-recommend consult to colorectal PLAN: I have reviewed my findings with the surgeon. Will plan for upper and lower endoscopy. We discussed the risks and benefits of the planned endoscopy. I have informed the patient that complications can occur including failure to complete the endoscopy and perforation. The patient had the opportunity to ask questions concerning the planned endoscopy. My staff has also explained the procedure to the patient in understandable terms and has given the patient printed material concerning the procedure. The patient freely consents to surgery. The patient was offered a surgery/procedure at a [facility] facility. I have counseled the patient regarding the risk of exposure to and/or potential harm posed by the COVID-19 virus with having a surgery/procedure at this time versus the risk of delaying the surgery/procedure. It is not possible to know either the risk of delaying the surgery or procedure or chance of getting an infection with perfect accuracy, but a joint decision was made between the patient and myself to proceed at this time with endoscopy. I plan to use miralax bowel preparation I have explained to the patient the difference between IV conscious sedation and MAC anesthesia - and I have offered either, according to the patient's wishes. I have explained that with IV conscioussedation there is no anesthesia provider available and therefore there is a limitation of the amount of IV medications that can be given and that the patient may wake up in the middle of the procedure and/or experience pain/discomfort during the procedure. Further discussion was done and the patient was given the opportunity to ask questions and all questions were answered. The patient chooses IVconscious sedation Diagnoses: (Z86.2) History of anemia (primary encounter diagnosis) (Z12.11) Screening for colon cancer (Z87.19) History of gastritis (R15.9) Anal sphincter incontinence [facility] History of Present illness Narrative* Willow Resendiz APRN.CD REACTOR OPERATOR - 03/21/2022 9:12 AM EST CC: Patient presents with: Cough: Cough and SOB x 5 days HPI: Mary Jane De Paz is a 71 year old female who presents to the office with complaint of head congestion, cough, nonproductive, and wheezing for 5 days. Symptoms are worsening Associated symptoms includes wheezing and dyspnea. Denies headache, body aches, nausea, vomiting , and diarrhea. Treatments tried include nothing so far. with no relief of symptoms. Sick contacts: unknown. History of asthma, frequent episodes of bronchitis, chronic bronchitis, bronchiectasis or COPD: No Smoker: No Seasonal/environmental allergies: No The ROS is otherwise negative. The patient's pmh, medications, allergies, and past visits are reviewed. PHYSICAL EXAM: BP 118/82 Pulse 89 Temp 37 C (98.6 F) (Tympanic) Resp 18 Wt 73.2 kg (161 lb 6.4 oz) SpO2 98% BMI 29.52 kg/m General appearance: alert, cooperative, pleasant, in no acute distress Head: Normocephalic Eyes: EOM's intact, conjunctiva pink and moist, no icterus, sclera white, non-injected Ears: Right ear: External ear/canal- Normal, TM - clear with good landmarks. Left ear: External ear/canal- Normal, TM - clear with good landmarks Oropharynx:moist without lesions, No erythema, exudates or tonsillar hypertrophy. Heart: Negative. RRR without obvious murmur, gallop, or rubs. No ectopy. Lungs: clear to auscultation, without rales or wheeze, good air exchange PAST MEDICAL HISTORY Diagnosis Date Allergic rhinitis Arthritis [facility], knee Asthma CKD (chronic kidney disease) 11/01/2018 Class 3 severe obesity with serious comorbidity and body mass index (BMI) of 40.0 to 44.9 in adult (HCC) 08/19/[address] Salazar GERD (gastroesophageal reflux disease) HTN (hypertension) Hypothyroidism Mixed hyperlipidemia NIDDM (non-insulin dependent 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) MARIBEL on CPAP CPAP 9Cm Renal lesion 01/15/2015 Suggest renal US every 1-2 years per PCP or nephro. Snoring Type 2 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 with hyperglycemia, with long-term current use of insulin (HCC) 02/27/2001 PAST SURGICAL HISTORY Procedure Laterality Date COLONOSCOPY 11/05/2016 Tammi- divertiuclosis, internal hemorrhoids, repeat in 5 years COSMETIC ASSESSMENT EGD 11/05/2016 Tammi- gastritis EGD 09/08/2018 /Gastritis EGD 04/02/2020 EYE SURGERY HX FRACTURE SURGERY GASTRIC BYPASS HX 12/13/2018 HYSTERECTOMY JOINT REPLACEMENT HX OOPHORECTOMY PARTIAL OR TOTAL PAST SURGICAL HISTORY OF 2009 hemmroidectomy/sphincterectomy - Dr Nichole PAST SURGICAL HISTORY OF 2008 total left knee replacement PAST SURGICAL HISTORY OF 2003 partial right knee replacement PAST SURGICAL HISTORY OF 1990 total hysterectomy PAST SURGICAL HISTORY OF 2010 lDr Mansoor - Parmaeft elbow fracture - traumatic. radial head replacement PAST SURGICAL HISTORY OF Bilateral 2016 hand surgery PAST SURGICAL HISTORY OF Left RELEASE CONTRACTURE DEQUERVAINS S INSERT PINN METAL NTRL HIP Right 11/17/2021 SKIN BIOPSY HX TUBAL LIGATION HX VAGINAL HYSTERECTOMY ALLERGIES Vicodin [Hydrocodone-Acetaminophen] MEDICATIONS glimepiride (AMARYL) 2 mg tablet Take 1 tablet by mouth daily with breakfast. atorvastatin (LIPITOR) 20 mg tablet Take 1 tablet by mouth daily at bedtime. For cholesterol. APPLE CIDER VINEGAR ORAL Take 1 capsule by mouth once daily. 450 mg capsule OTC NUTRITIONAL SUPPLEMENT Take 1 capsule by mouth once daily. Tumeric - 2000 mg capsule esomeprazole (NEXIUM) 40 mg capsule TAKE ONE CAPSULE BY MOUTH twice daily. levothyroxine (SYNTHROID) 100 mcg tablet Take 1 tablet by mouth once daily. buPROPion XL (WELLBUTRIN XL) 300 mg 24 hr tablet Take 1 tablet by mouth once daily. traZODone (DESYREL) 100 mg tablet Take 2 tablets by mouth daily at bedtime. lisinopril (ZESTRIL, PRINIVIL) 10 mg tablet Take 1 tablet by mouth once daily. dicyclomine (BENTYL) 20 mg tablet Take 1 tablet by mouth before meals and at bedtime. (Patient taking differently: Take 20 mg by mouth twice daily before meals (0600/1600).) dulaglutide (TRULICITY) 0.75 mg/0.5 mL pen injector Inject 0.75 mg subcutaneously one time a week. Inject dose once per week. Discard Pen After FLUoxetine (PROZAC) 20 mg capsule Take 3 capsules by mouth once daily. (Patient taking differently:Take 60 mg by mouth once daily. Pt takes all 3 capsules in the morning) calcium citrate/vitamin D3 (CALCIUM CITRATE + D ORAL) Take 1 tablet by mouth twice daily. MULTI-VITAMIN ORAL Take 1 tablet by mouth once daily. Takes bariatric multivitamin daily [DISCONTINUED] lactose-reduced food (ADULT NUTRITIONAL SUPPLEMENT ORAL) Take 1 capsule by mouth once daily. Tumeric - 2000mg capsule FAMILY HISTORY Problem Relation Age of Onset other (polio) Mother Diabetes Father other (Squamous cell ca) Father other (renal cell ca) Father 1999 other (htn) Father other (Thyroid Cancer) Sister other (thyroid disease) Sister ca other (renal cell ca) Brother 2010 Obesity Paternal Grandmother Obesity Daughter Thyroid Daughter Social History Tobacco Use Smoking status: Former Packs/day: 1.50 Years: 22.00 Pack years: 33.00 Types: Cigarettes Quit date: 1989 Years since quittin.0 Smokeless tobacco: Never Vaping Use Vaping Use: Never used Substance Use Topics Alcohol use: Yes Comment: few times a year. mixed drinls/marcelino. 3 in sitting. Drug use: No Comment: denies tx for drug/alcohol abuse in the past. ASSESSMENT/PLAN: 1. Acute cough - ICD9: 786.2, ICD10: R05.1 - XR CHEST 2V FRONTAL/LAT * * * * Physician Interpretation * * * * EXAMINATION: CHEST RADIOGRAPH (2 VIEW FRONTAL & LATERAL) CLINICAL HISTORY: Acute cough MQ: [id number] EXAM DATE/TIME: 03/21/2022 9:23 AM COMPARISON: Chest x-ray 11/17/2021 RESULT: Lines, tubes, and devices: None. Lungs and pleura: No consolidation. No lung mass. No pleural effusion. No pneumothorax. Cardiomediastinal silhouette: Normal cardiomediastinal silhouette. Bones and soft tissues: Unremarkable. IMPRESSION IMPRESSION: No acute radiographic abnormality. Senior Laboratory Technician: SEFERINO Transcribe Date/Time: Mar 21 2022 9:33A Dictated by : SAIMA BARROSO MD Prednisone 9 day taper and albuterol PRN. Tessalon pearls for cough. Prescription instructions reviewed with patient as applicable. Potential red flag symptoms discussed with the patient. Reviewed appropriate action plan to take if red flag symptoms or changing and worsening of symptoms occur patient will go to the ER. Patient agreeable to treatment plan. Willow Resendiz APRN.CD REACTOR OPERATOR documented in this [facility]12-30-2022 History of Present illness Narrative* Diana Barclay RT(R) - 03/21/2022 9:10 AM EST Radiology Service Progress Note PATIENT NAME: Mary Jane De Paz DATE OF SERVICE: March 21, 2022 TIME: 9:16 AM PATIENT IDENTITY VERIFICATION COMPLETED USING TWO (2) IDENTIFIERS: Name and Date of confirmedby patient verbally. FALL SCREENING: Has the patient had 2 falls in the last year or 1 fall with injury or currently using an Ambulatory Assistive Device (Walker, Cane, Wheelchair, Crutches, etc.)? No PATIENT GENDER DATA: Female. status: : No status: NO. PATIENT RELEVANT IMPLANT DATA REVIEWED: Not Applicable RADIOLOGY DEPARTMENT: General X-ray: Exam(s) Completed: Chest X-Ray PERIPHERAL IV DATA: Not applicable SIGNED BY: RT Bharati(R) March 21, 2022 9:16 AM [facility] History of Present illness Narrative* Aston Gomez Mammo Yadi - 03/19/2022 2:30 PM EST Radiology Service Progress Note PATIENT NAME: Mary Jane De Paz DATE OF SERVICE: March 19, 2022 TIME: 2:12 PM PATIENT IDENTITY VERIFICATION COMPLETED USING TWO (2) IDENTIFIERS: Name and Date of confirmedby patient verbally. FALL SCREENING: Has the patient had 2 falls in the last year or 1 fall with injury or currently using an Ambulatory Assistive Device (Walker, Cane, Wheelchair, Crutches, etc.)? No PATIENT GENDER DATA: Female. status: : No status: NO. PATIENT RELEVANT IMPLANT DATA REVIEWED: Not Applicable RADIOLOGY DEPARTMENT: Mammography PERIPHERAL IV DATA: Not applicable SIGNED BY: Aston Gomez Mammo Tech March 19, 2022 2:12 PM [facility] this [facility] Instructions* Patient Instructions* Sindy Mcgregor MD - 02/25/2022 12:36 PM EST - Request all colorectal clinic notes and operative reports (Dr. Nichole) - Start a fiber supplement - start with 1 tsp daily for 1 week then increase to 1 tbs daily - Drink 64 oz water (try flavor added - True Lemon, cirkul) - Avoid fake sugars - Will confirm function of interstim - Squatty potty - Follow up in 4 weeks (can be virtual) documented in this [facility] History and physical note * Sindy Mcgregor MD - 02/25/2022 11:00 AM EST COLORECTAL SURGERY New Patient Visit February 20, 2022 Chief Complaint: fecal incontinence History of Present Illness: Mary Jane De Paz is a 71 year old year old female with a history of asthma, CKD, GERD, HTN, hypothyroidism, HLD, NIDDM, MARIBEL on CPAP (resolved since RYGB in 2019) who presents with fecal incontinence. She went to see Dr. Will Cardenas in the late 1999s for symptomatic hemorrhoids. Almost immediatelyshe starting having problems with incontinence - she can feel rectal fullness but then cannot control it. She went to see Dr. Nichole who recommended bentyl or botox and she opted for the bentyl. Sheis supposed to be taking 4 times daily but can only manage 2-3 times a day. She subsequently had a SNS placed (Dr. Mesa) that has not helped. She has up to 5-6 bowel movements daily and is watery or very very very loose. She also has solidbowel movements which float and are very soft daily. She has tried fiber (benefiber 1 scoop daily) and was zoroastrianism with it around 2019 and has not seen a big improvement. She wears a pad and she always notices some fecal leakage in his bowel movement. She has a bad day at least twice a week. She had 2 accidents overnight last month. This had never happened before. She hasn't worked with the [facility] in a while. We believe that Dr. Nichole performed a sphincteroplasty in 2014 at . She will work on getting those records. She has had 2 vaginal deliveries without significant tear. 12.21.18 CT A/P: IMPRESSION: 1. Questionable inflammation surrounding the mid to distal descending colon, could be seen with very mild diverticulitis 2. Mild inflammation surrounding a single loop of small bowel in the midabdomen, could reflect mild enteritis. 3. Trace free fluid in the pelvis. 4. 3.2 cm right ovarian cyst. 5. 1.4 cm hypodensity in the liver, attenuation slightly higher than simple fluid. Indeterminant but could reflect a complex cyst or hemangioma. A nonemergent MRI of the liver could be obtained. 12.14.18 Surgery: 1. Laparoscopic Samina-en-Y gastric bypass. 2. Intraoperative EGD and provoked leak test. 3. Bilateral TAP block. 06.15.18 Surgery: Intersti Stage 1 06.29.18 Surgery: [facility] Stage [address] Tylor Mesa ([facility]): 68-year-old female status post rectum surgery and that resulted in fecal incontinence due to sphincter being cut. She had a procedure in [address] Nichole that sounds like a sphincteroplasty. Shenot have any relief from this. She reports daily leakage as well as one very bad episode every week. She has tried medication such as fiber and Imodium without improvement in symptoms. Anorectal: External exam reveals anterior scar consistent with sphincteroplasty. Digital rectal exam and bimanual exam reveals very thin rectovaginal septum, weak squeeze 8.16.17 Colonoscopy: Findings: The perianal and digital rectal examinations were normal. Multiple small and large-mouthed diverticula were found in the sigmoid colon and descending colon, with scattered diverticulosis in the ascending and transverse colon. Internal hemorrhoids were found during retroflexion. The hemorrhoids were mild and Grade I (internal hemorrhoids that do not prolapse). The exam was otherwise without abnormality. PAST MEDICAL HISTORY Diagnosis Date Allergic rhinitis Arthritis [facility], knee Asthma CKD (chronic kidney disease) 11/01/2018 Class 3 severe obesity with serious comorbidity and body mass index (BMI) of 40.0 to 44.9 in adult ([facility]) 08/19/[address] Salazar GERD (gastroesophageal reflux disease) HTN (hypertension) Hypothyroidism Mixed hyperlipidemia NIDDM (non-insulin dependent 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) MARIBEL on CPAP CPAP 9Cm Renal lesion 01/15/2015 Suggest renal US every 1-2 years per PCP or nephro. Snoring Type 2 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 with hyperglycemia, with long-term current use of insulin ([facility]) 02/27/2001 PAST SURGICAL HISTORY Procedure Laterality Date COLONOSCOPY 11/05/2016 Tammi- divertiuclosis, internal hemorrhoids, repeat in 5 years COSMETIC ASSESSMENT EGD 11/05/2016 Tammi- gastritis EGD 09/08/2018 /Gastritis EGD 04/02/2020 EYE SURGERY HX FRACTURE SURGERY GASTRIC BYPASS HX 12/13/2018 HYSTERECTOMY JOINT REPLACEMENT HX OOPHORECTOMY PARTIAL OR TOTAL PAST SURGICAL HISTORY OF 2009 hemmroidectomy/sphincterectomy - Dr Nichole PAST SURGICAL HISTORY OF 2008 total left knee replacement PAST SURGICAL HISTORY OF 2003 partial right knee replacement PAST SURGICAL HISTORY OF 1990 total hysterectomy PAST SURGICAL HISTORY OF 2010 lDr Mansoor - Par[place] elbow fracture - traumatic. radial head replacement PAST SURGICAL HISTORY OF Bilateral 2016 hand surgery PAST SURGICAL HISTORY OF Left RELEASE CONTRACTURE DEQUERVAINS S INSERT PINN METAL NTRL HIP Right 11/17/2021 SKIN BIOPSY HX TUBAL LIGATION HX VAGINAL HYSTERECTOMY Current Outpatient Medications Medication Sig Dispense Refill glimepiride (AMARYL) 2 mg tablet Take 1 tablet by mouth daily with breakfast. 180 tablet 1 atorvastatin (LIPITOR) 20 mg tablet Take 1 tablet by mouth daily at bedtime. For cholesterol. 90 tablet 1 APPLE CIDER VINEGAR ORAL Take 1 capsule by mouth once daily. 450 mg capsule OTC NUTRITIONAL SUPPLEMENT Take 1 capsule by mouth once daily. Tumeric - 2000 mg capsule esomeprazole (NEXIUM) 40 mg capsule TAKE ONE CAPSULE BY MOUTH twice daily. 180 capsule 1 levothyroxine (SYNTHROID) 100 mcg tablet Take 1 tablet by mouth once daily. 90 tablet 1 buPROPion XL (WELLBUTRIN XL) 300 mg 24 hr tablet Take 1 tablet by mouth once daily. 90 tablet 1 traZODone (DESYREL) 100 mg tablet Take 2 tablets by mouth daily at bedtime. 180 tablet 1 lisinopril (ZESTRIL, PRINIVIL) 10 mg tablet Take 1 tablet by mouth once daily. 90 tablet 3 dicyclomine (BENTYL) 20 mg tablet Take 1 tablet by mouth before meals and at bedtime. (Patient taking differently: Take 20 mg by mouth twice daily before meals (0600/1600).) 360 tablet 1 dulaglutide (TRULICITY) 0.75 mg/0.5 mL pen injector Inject 0.75 mg subcutaneously one time a week. Inject dose once per week. Discard Pen After 12 Each 3 FLUoxetine (PROZAC) 20 mg capsule Take 3 capsules by mouth once daily. (Patient taking differently:Take 60 mg by mouth once daily. Pt takes all 3 capsules in the morning) 270 capsule 1 calcium citrate/vitamin D3 (CALCIUM CITRATE + D ORAL) Take 1 tablet by mouth twice daily. MULTI-VITAMIN ORAL Take 1 tablet by mouth once daily. Takes bariatric multivitamin daily No current facility-administered medications for this visit. ALLERGIES Allergen Reactions Vicodin [Hydrocodon* Itching Pt not sure if she has an allergy but states she wants it documented. Review of Systems / PACC screen: Do you have difficulty climbing a full flight of stairs without feeling short of breath? No, per chart history of asthma Do you require oxygen for your breathing or have your gone to an emergency department because of breathing problems? no Are you on dialysis or have you been told that your kidneys do not work well as they should? No, per chart history of CKD Do have an implanted cardiac device (pacemaker, defibrillator etc.) that has not been checked in the last 6 months? no Have you had an organ transplant? no Have you been told that you had excessive bleeding during surgical procedures or do you take blood thinning medications other than aspirin? no Have you ever had a heart attack, heart stents/surgery, valve problems, or other heart problems? yes HTN,hyperlipidemia Have you had a stroke, seizures, or unexplained loss of consciousness? no Do you have a neurologic condition like Parkinson's disease or multiple sclerosis? no Have you or a blood relative had a life-threatening reaction to anesthesia? no Do you have cirrhosis of the liver or other liver disease? no Have you had a blood clot within the past year? no Do you take insulin or other injections for diabetes? Yes, trulicity Do you have sleep apnea or have you been told you may have sleep apnea? No does have a history of MARIBEL Do you have other implanted devices (deep brain stimulator, spinal cord stimulator, etc.)? No interstim for incontinence Physical Exam: BP 147/73 Pulse 84 Temp 36.6 C (97.8 F) (Temporal) Ht 157.5 cm (5' 2) Wt 73.8 kg (162 lb 12.8 oz) SpO2 98% BMI 29.78 kg/m General Appearance: Well appearing, alert, in no acute distress, well-hydrated, well nourished. Lungs: Unlabored on room air Abdomen: Soft, nondistended, nontender to palpation. Well healed lower midline incision. Anorectal: Perianal skin is intact. No erythema, induration or excoriation. There is a well healed left sided perianal incision. On MATILDE she has weak resting tone but good squeeze. Relaxation with valsalva and descent. Digital Rectal Exam: Anus: closed Resting tone: WEAK Squeeze tone: NORMAL Newborn Photographer present: Yes Assessment Medical Decision Making: Assessment & Diagnosis: Mary Jane De Paz is a 71 year old female with a history of asthma, CKD, GERD, HTN, hypothyroidism, HLD, NIDDM, MARIBEL on CPAP (resolved since RYGB in 2019) who presents with fecal incontinence. Shehas already had an interstim placed but has not done any troubleshooting on it. On exam she has good external sphincter control and I believe if we were able to bulk up her stools she would have better control. She will start on fiber supplementation and avoidance of face sugars (her RYGB is likelyalso contributing to the loose stools). She will also reach out to [employer] to test the battery and modify the settings on her interstim. I will follow up with her in 4 weeks to see if she has had any improvement. She is in agreement with this plan. Data Reviewed: Tests & Documents Reviewed/ordered: Review of prior notes from clinic Review of prior operative reports Review of Imaging: CT Abdomen, CT Pelvis Review of Procedures / Tests: Colonoscopy I have independently interpreted: N/A I have discussed Mary Jane De Paz's treatment plan and/or results with the patient . Treatment plan: - Request all colorectal clinic notes and operative reports (Dr. Nichole) - Start a fiber supplement - start with 1 tsp daily for 1 week then increase to 1 tbs daily - Drink 64 oz water (try flavor added - True Lemon, cirkul) - Avoid fake sugars - Will confirm function of interstim - Squatty potty - Follow up in 4 weeks (can be virtual) Sindy Mcgregor MD Colorectal Surgery I spent a total of 60 minutes on the date of the service which included preparing to see the patient, [id number] patient care, completing clinical documentation, obtaining and/or reviewing separately obtained history, performing a medically appropriate examination, counseling and educating the pat ient/family/caregiver, ordering medications, tests, or procedures, and care coordination (not separately reported). documented in this [facility]-2022 Miscellaneous Notes* Telephone Encounter - Radha Hawkins LPN - 02/20/2022 10:27 AM EST Application and attached information faxed to the number on application . Originals remain on provider's nurse desk. * Telephone Encounter - Christine Morgan APRN.CNP - 02/19/2022 5:56 PM EST Pt [facility] form complete (for trulicity). It is in Ramo's box. documented in this encounterK[facility]11-29-2022 Miscellaneous Notes* Telephone Encounter - KHUSHBOO Brown - 02/18/2022 10:17 AM EST Miriam spoke with patient regarding [facility] yearly re-enrollment for Trulicity and Prozac. Patient notes that her spouse took in her yearly application to JULI King office today for her to work on forms and send to [facility] once complete. documented in this encounterK[facility]11-23-2022 Miscellaneous Notes* Telephone Encounter - Jean Pierre Smith - 02/12/2022 3:40 PM EST 04/02/[address] Toscano at the [facility] with Miralax/Dulcolax prep documented in this encounterK[facility]11-23-2022 Nurse Note* Leyla Kincaid, HAMLET - 02/12/2022 1:59 PM EST REVIEW OF SYSTEMS: General: The patient NOTES fatigue, denies weight loss, denies weight gain, NOTES feeling hot, and denies feelings of cold. Eyes: The patient denies glaucoma, denies eye injury/surgery, does not wear glasses or contacts. Ear/Nose/Throat: The patient denies allergies, denies hayfever, denies ear infections, and denies bloody noses. Cardiovascular: The patient denies chest pain, denies heart disease, NOTES high blood pressure,denies cardiac stent, denies prior heart attack, denies irregular heart beat, NOTES high cholesterol, denies poor circulation, denies heart failure, other cardiac issues, denies claudication, NOTES cold feet, denies peripheral arterial stent. Respiratory: The patient denies tuberculosis, NOTES pneumonia, denies frequent cough, denies pulmonary embolism, NOTES shortness of breath, and denies coughing up blood. Gastrointestinal: The patient NOTES difficulty swallowing, NOTES acid reflux, NOTES ulcers, denies vomiting, denies jaundice/hepatitis, denies gallbladder problems, denies black or tarry stools, notes hemorrhoids, denies bleeding from rectum, notes diverticulitis, NOTES constipation, NOTES diarrhea, NOTES loss of stool control, and denies hernias. Kidney/Bladder: The patient denies kidney stones, NOTES urine infections, and denies bloody urine. Skin: The patient denies a history of skin cancer, denies bleeding/changing moles, and denies a history of skin rash. Neurologic: The patient denies a history of epilepsy/convulsions, denies headaches, denies head/spinal injuries, and denies stroke/TIA. Psychiatric: The patient NOTES psychiatric medications, NOTES depression, and denies voices, deniessubstance abuse. Endocrine: The patient NOTES thyroid disorders, NOTES diabetes, and denies hormonal problems. Hematologic: The patient denies a history of bruising, denies bleeding, and NOTES anemia, denies blood clots. Infections: The patient NOTES a history of measles and mumps, denies rheumatic fever, and denies sexually transmitted diseases. Musculoskeletal: The patient NOTES back pain/injury, denies back problems, NOTES sciatica, NOTES knee/foot trouble, NOTES arthritis, or NOTES gout. When was patient's last Mammogram screening? 2021 Last Colonoscopy: 2016 Leyla Kincaid LPN documented in this encounterK[facility]11-23-2022 History of Present illness Narrative* Dionna Fong PA-C - 02/12/2022 1:13 PM EST HISTORY AND PHYSICAL Mary Jane Renny De Paz 1950 REFERRING PHYSICIAN: Christine Morgan APRN.Betty* CHIEF COMPLAINT: Consult (colonoscopy) HPI: The patient is a 71 year old female referred for endoscopy. Mary Jane notes a history of colonpolyps and is due for surveillance colonoscopy. Patient denies any weight changes, blood in stools,black tarry stools or abdominal pain. Denies family history of colon issues. 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 States at one point years ago saw someone who discussed possible botox injections, but did not pursue at that time. Notes issues are getting worse and interestedin possible treatment. Denies any recent follow-up with colorectal surgery. The patient notes no upper GI complaints. Mary Jane has undergone prior endoscopy. Most recent colonoscopy 11/05/16. No concerning findings, repeat colonoscopy recommended in 5 years due to history of polyps. Denies problems with sedation in the past PAST MEDICAL HISTORY Diagnosis Date Allergic rhinitis Arthritis [facility], knee Asthma CKD (chronic kidney disease) 11/01/2018 Class 3 severe obesity with serious comorbidity and body mass index (BMI) of 40.0 to 44.9 in adult ([facility]) 08/19/[address] Salazar GERD (gastroesophageal reflux disease) HTN (hypertension) Hypothyroidism Mixed hyperlipidemia NIDDM (non-insulin dependent 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) MARIBEL on CPAP CPAP 9Cm Renal lesion 01/15/2015 Suggest renal US every 1-2 years per PCP or nephro. Snoring Type 2 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 with hyperglycemia, with long-term current use of insulin ([facility]) 02/27/2001 PAST SURGICAL HISTORY Procedure Laterality Date COLONOSCOPY 11/05/2016 Tammi- divertiuclosis, internal hemorrhoids, repeat in 5 years COSMETIC ASSESSMENT EGD 11/05/2016 Tammi- gastritis EGD 09/08/2018 /Gastritis EGD 04/02/2020 EYE SURGERY HX FRACTURE SURGERY GASTRIC BYPASS HX 12/13/2018 HYSTERECTOMY JOINT REPLACEMENT HX OOPHORECTOMY PARTIAL OR TOTAL PAST SURGICAL HISTORY OF 2009 hemmroidectomy/sphincterectomy - Dr Nichole PAST SURGICAL HISTORY OF 2008 total left knee replacement PAST SURGICAL HISTORY OF 2003 partial right knee replacement PAST SURGICAL HISTORY OF 1990 total hysterectomy PAST SURGICAL HISTORY OF 2010 lDr Mansoor - [place] elbow fracture - traumatic. radial head replacement PAST SURGICAL HISTORY OF Bilateral 2016 hand surgery PAST SURGICAL HISTORY OF Left RELEASE CONTRACTURE DEQUERVAINS S INSERT PINN METAL NTRL HIP Right 11/17/2021 SKIN BIOPSY HX TUBAL LIGATION HX VAGINAL HYSTERECTOMY Current Outpatient Medications Medication Sig glimepiride (AMARYL) 2 mg tablet Take 1 tablet by mouth daily with breakfast. atorvastatin (LIPITOR) 20 mg tablet Take 1 tablet by mouth daily at bedtime. For cholesterol. APPLE CIDER VINEGAR ORAL Take 1 capsule by mouth once daily. 450 mg capsule OTC NUTRITIONAL SUPPLEMENT Take 1 capsule by mouth once daily. Tumeric - 2000 mg capsule esomeprazole (NEXIUM) 40 mg capsule TAKE ONE CAPSULE BY MOUTH twice daily. levothyroxine (SYNTHROID) 100 mcg tablet Take 1 tablet by mouth once daily. buPROPion XL (WELLBUTRIN XL) 300 mg 24 hr tablet Take 1 tablet by mouth once daily. traZODone (DESYREL) 100 mg tablet Take 2 tablets by mouth daily at bedtime. lisinopril (ZESTRIL, PRINIVIL) 10 mg tablet Take 1 tablet by mouth once daily. dicyclomine (BENTYL) 20 mg tablet Take 1 tablet by mouth before meals and at bedtime. (Patient taking differently: Take 20 mg by mouth twice daily before meals (0600/1600).) dulaglutide (TRULICITY) 0.75 mg/0.5 mL pen injector Inject 0.75 mg subcutaneously one time a week. Inject dose once per week. Discard Pen After FLUoxetine (PROZAC) 20 mg capsule Take 3 capsules by mouth once daily. (Patient taking differently:Take 60 mg by mouth once daily. Pt takes all 3 capsules in the morning) calcium citrate/vitamin D3 (CALCIUM CITRATE + D ORAL) Take 1 tablet by mouth twice daily. MULTI-VITAMIN ORAL Take 1 tablet by mouth once daily. Takes bariatric multivitamin daily No current facility-administered medications for this visit. ALLERGIES: Vicodin [Hydrocodone-Acetaminophen] PERSONAL HISTORY: Social History Tobacco Use Smoking status: Former Packs/day: 1.50 Years: 22.00 Pack years: 33.00 Types: Cigarettes Quit date: 1989 Years since quittin.9 Smokeless tobacco: Never Vaping Use Vaping Use: Never used Substance Use Topics Alcohol use: Yes Comment: few times a year. mixed drinls/marcelino. 3 in sitting. Drug use: No Comment: denies tx for drug/alcohol abuse in the past. FAMILY HISTORY: FAMILY HISTORY Problem Relation Age of Onset other (polio) Mother Diabetes Father other (Squamous cell ca) Father other (renal cell ca) Father 1999 other (htn) Father other (Thyroid Cancer) Sister other (thyroid disease) Sister ca other (renal cell ca) Brother 2010 Obesity Paternal Grandmother Obesity Daughter Thyroid Daughter REVIEW OF SYMPTOMS: The review of systems data was entered by the nurse and reviewed by ut Nursing Notes: Leyla Kincaid LPN 02/12/2022 2:05 PM Signed REVIEW OF SYSTEMS: General: The patient NOTES fatigue, denies weight loss, denies weight gain, NOTES feeling hot, and denies feelings of cold. Eyes: The patient denies glaucoma, denies eye injury/surgery, does not wear glasses or contacts. Ear/Nose/Throat: The patient denies allergies, denies hayfever, denies ear infections, and denies bloody noses. Cardiovascular: The patient denies chest pain, denies heart disease, NOTES high blood pressure,denies cardiac stent, denies prior heart attack, denies irregular heart beat, NOTES high cholesterol, denies poor circulation, denies heart failure, other cardiac issues, denies claudication, NOTES cold feet, denies peripheral arterial stent. Respiratory: The patient denies tuberculosis, NOTES pneumonia, denies frequent cough, denies pulmonary embolism, NOTES shortness of breath, and denies coughing up blood. Gastrointestinal: The patient NOTES difficulty swallowing, NOTES acid reflux, NOTES ulcers, denies vomiting, denies jaundice/hepatitis, denies gallbladder problems, denies black or tarry stools, notes hemorrhoids, denies bleeding from rectum, notes diverticulitis, NOTES constipation, NOTES diarrhea, NOTES loss of stool control, and denies hernias. Kidney/Bladder: The patient denies kidney stones, NOTES urine infections, and denies bloody urine. Skin: The patient denies a history of skin cancer, denies bleeding/changing moles, and denies a history of skin rash. Neurologic: The patient denies a history of epilepsy/convulsions, denies headaches, denies head/spinal injuries, and denies stroke/TIA. Psychiatric: The patient NOTES psychiatric medications, NOTES depression, and denies voices, deniessubstance abuse. Endocrine: The patient NOTES thyroid disorders, NOTES diabetes, and denies hormonal problems. Hematologic: The patient denies a history of bruising, denies bleeding, and NOTES anemia, denies blood clots. Infections: The patient NOTES a history of measles and mumps, denies rheumatic fever, and denies sexually transmitted diseases. Musculoskeletal: The patient NOTES back pain/injury, denies back problems, NOTES sciatica, NOTES knee/foot trouble, NOTES arthritis, or NOTES gout. When was patient's last Mammogram screening? 2021 Last Colonoscopy: 2016 Leyla Kincaid LPN I have confirmed and edited as necessary, the PFSH and ROS obtained by others. Dionna Fong PA-C PHYSICAL EXAMINATION: General: The patient is 71 year old female, well nourished, well hydrated in no acute distress. Thepatient is oriented to time, place, and person. VITALS: Blood pressure 128/78, pulse 105, temperature 36.3 C (97.4 F), height 157.5 cm (5' 2), weight 73.6 kg (162 lb 3.2 oz), SpO2 96 %. Body mass index is 29.67 kg/m . HEENT: Normal cephalic, ataumatic, pupils are equally round, sclera are anicteric, mucous membranesare moist, oropharynx is clear. Neck has no masses, asymmetry or lymphadenopathy. Respiratory: Clear to auscultation and percussion. Normal respiratory excursion and pattern. Cardiac: Examination is regular rate and rhythm. Normal S1/S2 Abdominal exam: Soft, nontender, with no palpable masses. No hepatosplenomegaly. No palpable hernias. Extremities: no clubbing, cyanosis or edema. No adenopathy. LABORATORY VALUES: As Noted RADIOLOGIC STUDIES: As Noted Assessment IMPRESSION: encounter for surveillance colonoscopy, history of colon polyps. Belching, history of gastritis and anemia-recommend EGD in addition to colonoscopy. History of anal sphincter/incontinenceissues-recommend consult to colorectal PLAN: I have reviewed my findings with the surgeon. Will plan for upper and lower endoscopy. We discussed the risks and benefits of the planned endoscopy. I have informed the patient that complications can occur including failure to complete the endoscopy and perforation. The patient had the opportunity to ask questions concerning the planned endoscopy. My staff has also explained the procedure to the patient in understandable terms and has given the patient printed material concerning the procedure. The patient freely consents to surgery. The patient was offered a surgery/procedure at a [facility] facility. I have counseled the patient regarding the risk of exposure to and/or potential harm posed by the COVID-19 virus with having a surgery/procedure at this time versus the risk of delaying the surgery/procedure. It is not possible to know either the risk of delaying the surgery or procedure or chance of getting an infection with perfect accuracy, but a joint decision was made between the patient and myself to proceed at this time with endoscopy. I plan to use miralax bowel preparation I have explained to the patient the difference between IV conscious sedation and MAC anesthesia - and I have offered either, according to the patient's wishes. I have explained that with IV conscioussedation there is no anesthesia provider available and therefore there is a limitation of the amount of IV medications that can be given and that the patient may wake up in the middle of the procedure and/or experience pain/discomfort during the procedure. Further discussion was done and the patient was given the opportunity to ask questions and all questions were answered. The patient chooses IVconscious sedation Diagnoses: (Z86.2) History of anemia (primary encounter diagnosis) (Z12.11) Screening for colon cancer (Z87.19) History of gastritis (R15.9) Anal sphincter incontinence Consultation requested by Christine Morgan CNP for an opinion regarding screening colonoscopy. My final recommendations will be communicated back to the requesting physician by way of shared Medical record or letter to requesting physician via US mail. Dionna Fong PA-C documented in this encounterK[facility]11-22-2022 Miscellaneous Notes* Telephone Encounter - Jannette Lemus LPN - 02/11/2022 7:54 AM EST Patient phones requesting refills as follows: Patient comment: Send to [facility] instead of [facility] Requested Prescriptions Pending Prescriptions Disp Refills glimepiride (AMARYL) 2 mg tablet 180 tablet 1 Sig: Take 1 tablet by mouth daily with breakfast. GLADYS-01/29/22 Labs-01/29/22 NOV-07/29/22 med filled 08/05/21 Please review and advise. Jannette Lemus LPN documented in this encounterK[facility]11-21-2022 Miscellaneous Notes* Telephone Encounter - Mleina Hull Pss - 02/10/2022 9:48 AM EST Patient is scheduled. * Telephone Encounter - Haily Gibson - 02/08/2022 12:44 PM EST Call patient [facility] to call breast center at [phone] to schedule ultrasound and mammogram. * Telephone Encounter - Christine Morgan APRN.CNP - 02/07/2022 4:06 PM EST Orders placed for diagnostic mammo and ultrasound. Please help schedule. Christine Morgan APRN.CNP * Telephone Encounter - Melissa Morse RN - 02/07/2022 9:11 AM EST Patient reports she received a letter in the mail stating she needs a diagnostic mammogram. Asking if provider would place order this morning. Will send message to Marin Dubose per pt request due to Christine Morgan out of office this morning. Please call pt once order is placed. Thank you. documented in this encounterK[facility]11-16-2022 Miscellaneous Notes* Letter - Mammography Coordinator - 02/05/2022 1:48 PM EST February 06, 2022 PID: [id number] Mary Jane De Paz [address] [place] [address] [place] [id number] Dear Ms. De Paz, Your recent breast imaging exam on 02/05/2022 showed a possible finding that requires additional imaging studies for a complete evaluation. Most such findings are probably benign (not cancer). If you have a healthcare provider who ordered/prescribed your screening mammogram: Please call [phone] or [phone] to schedule an appointment for your additional imaging (if youhave not already done so). If you DO NOT have a healthcare provider (ie you did not have an order/prescription for your screening mammogram): Please call to schedule an appointment for your additional imaging (if you have not already done so). You must have an order/prescription from your physician when calling to schedule your appointment. If your order/prescription is not electronic, you must bring the hard copy with you on the day of your exam to avoid delays. Your imaging studies and reports are kept on file at [facility] as part of your permanent medical record, and are available for your continuing care. Thank you for allowing us to help in meeting your health care needs. Sincerely, Dr. Naranjo Interpreting Radiologist [facility] (Additional imaging) documented in this encounterK[facility]11-16-2022 History of Present illness Narrative* Aston Gomez, Mammo Tech - 02/05/2022 1:10 PM EST Radiology Service Progress Note PATIENT NAME: Mary Jane De Paz DATE OF SERVICE: February 05, 2022 TIME: 1:14 PM PATIENT IDENTITY VERIFICATION COMPLETED USING TWO (2) IDENTIFIERS: Name and Date of confirmedby patient verbally. FALL SCREENING: Has the patient had 2 falls in the last year or 1 fall with injury or currently using an Ambulatory Assistive Device (Walker, Cane, Wheelchair, Crutches, etc.)? No PATIENT GENDER DATA: Female. status: : No status: NO. PATIENT RELEVANT IMPLANT DATA REVIEWED: Not Applicable RADIOLOGY DEPARTMENT: Mammography PERIPHERAL IV DATA: Not applicable SIGNED BY: Aston Gomez [employer] February 05, 2022 1:14 PM documented in this encounterK[facility]11-09-2022 Instructions* Patient Instructions* Christine Morgan APRN.CNP - 01/29/2022 11:53 AM EST Get labwork. Schedule mammo Schedule colonoscopy (gen surg). Schedule w/ dermatology Recheck in 6 months. documented in this encounterK[facility]11-09-2022 History of Present illness Narrative* Christine Morgan APRN.CNP - 01/29/2022 11:15 AM EST This is a 71 year old female who presents today with: Patient presents with: 6 Month Exam HISTORY OF PRESENT ILLNESS: Mary Jane De Paz is a 71 year old female. Patient presents with: 6 Month Exam Pt presents today for recheck. HYPERLIPIDEMIA: Patient is taking medications: Yes. Patient is watching diet: No. Patient denies myalgias: No. Patient denies gi upset: No' HYPOTHYROID: Patient is compliant with medications: Yes Patient has changes in energy: a little more tired. Patient has changes in hair or skin: No Patient has temperature intolerance: Yes -- cold Patient has weight changes: No Mood Stable. DM: Reports overall feeling well. Medication side effects: No. Home sugar checks: not really Hypoglycemic spells: Yes. -- when she hasn't eaten enough. Watching diet: Yes. Unexpected weight loss: No. Polyuria, polydipsia: Yes. More thirsty. Dry mouth. Vision Changes: recently got new glasses. . Foot lesions or numbness or pain: once in a while. . Skin irritation. Refers recurrently getting some skin irritation in the skin folds. Problems with clothing rubbing. She has tried different skin care. PAST MEDICAL HISTORY: PAST MEDICAL HISTORY Diagnosis Date Allergic rhinitis Arthritis [facility], knee Asthma CKD (chronic kidney disease) 11/01/2018 Class 3 severe obesity with serious comorbidity and body mass index (BMI) of 40.0 to 44.9 in adult ([facility]) 08/19/[address] Salazar Environmental allergies GERD (gastroesophageal reflux disease) HTN (hypertension) Hypothyroidism Mixed hyperlipidemia NIDDM (non-insulin dependent 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) MARIBEL on CPAP CPAP 9Cm Renal lesion 01/15/15 Suggest renal US every 1-2 years per PCP or nephro. Snoring Type 2 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 with hyperglycemia, with long-term current use of insulin ([facility]) 02/27/2001 PAST SURGICAL HISTORY Procedure Laterality Date COLONOSCOPY 11/05/2016 Tammi- divertiuclosis, internal hemorrhoids, repeat in 5 years COSMETIC ASSESSMENT EGD 11/05/2016 Tammi- gastritis EGD 09/08/2018 /Gastritis EGD 04/02/2020 EYE SURGERY HX FRACTURE SURGERY GASTRIC BYPASS HX 12/13/2018 HYSTERECTOMY JOINT REPLACEMENT HX OOPHORECTOMY PARTIAL OR TOTAL PAST SURGICAL HISTORY OF 2009 hemmroidectomy/sphincterectomy - Dr Nichole PAST SURGICAL HISTORY OF 2008 total left knee replacement PAST SURGICAL HISTORY OF 2003 partial right knee replacement PAST SURGICAL HISTORY OF 1990 total hysterectomy PAST SURGICAL HISTORY OF 2010 lDr Mansoor - [place] elbow fracture - traumatic. radial head replacement PAST SURGICAL HISTORY OF Bilateral 2016 hand surgery PAST SURGICAL HISTORY OF Left RELEASE CONTRACTURE DEQUERVAINS SKIN BIOPSY HX TUBAL LIGATION HX VAGINAL HYSTERECTOMY ALLERGIES Vicodin [Hydrocodone-Acetaminophen] MEDICATIONS Current Outpatient Medications Medication Sig atorvastatin (LIPITOR) 20 mg tablet Take 1 tablet by mouth daily at bedtime. For cholesterol. APPLE CIDER VINEGAR ORAL Take 1 capsule by mouth once daily. 450 mg capsule OTC NUTRITIONAL SUPPLEMENT Take 1 capsule by mouth once daily. Tumeric - 2000 mg capsule acetaminophen (TYLENOL) 500 mg tablet Take 2 tablets by mouth every 8 hours as needed for pain. ascorbic acid, vitamin C, (VITAMIN C) 500 mg tablet Take 1 tablet by mouth twice daily with meals for 25 doses. esomeprazole (NEXIUM) 40 mg capsule TAKE ONE CAPSULE BY MOUTH twice daily. levothyroxine (SYNTHROID) 100 mcg tablet Take 1 tablet by mouth once daily. buPROPion XL (WELLBUTRIN XL) 300 mg 24 hr tablet Take 1 tablet by mouth once daily. traZODone (DESYREL) 100 mg tablet Take 2 tablets by mouth daily at bedtime. glimepiride (AMARYL) 2 mg tablet Take 1 tablet by mouth daily with breakfast. (Patient taking differently: Take 4 mg by mouth daily with breakfast.) lisinopril (ZESTRIL, PRINIVIL) 10 mg tablet Take 1 tablet by mouth once daily. dicyclomine (BENTYL) 20 mg tablet Take 1 tablet by mouth before meals and at bedtime. (Patient taking differently: Take 20 mg by mouth twice daily before meals (0600/1600).) dulaglutide (TRULICITY) 0.75 mg/0.5 mL pen injector Inject 0.75 mg subcutaneously one time a week. Inject dose once per week. Discard Pen After FLUoxetine (PROZAC) 20 mg capsule Take 3 capsules by mouth once daily. (Patient taking differently:Take 60 mg by mouth once daily. Pt takes all 3 capsules in the morning) calcium citrate/vitamin D3 (CALCIUM CITRATE + D ORAL) Take 1 tablet by mouth twice daily. MULTI-VITAMIN ORAL Take 1 tablet by mouth once daily. Takes bariatric multivitamin daily methylPREDNISolone (MEDROL, KONRAD,) 4 mg Dose-Pack Take 1 tablet by mouth as directed. As directed onpackage (Patient not taking: Reported on 01/02/2022) oxyCODONE IR (ROXICODONE) 5 mg immediate release tablet Take 1-2 tablets by mouth every 6 hours as needed for pain. (Patient not taking: Reported on 01/02/2022) No current facility-administered medications for this visit. FAMILY HISTORY Problem Relation Age of Onset other (polio) Mother Diabetes Father other (Squamous cell ca) Father other (renal cell ca) Father 1999 other (htn) Father other (renal cell ca) Brother 2010 other (Thyroid Cancer) Sister other (thyroid disease) Sister ca Obesity Paternal Grandmother Obesity Daughter Social History Tobacco Use Smoking status: Former Packs/day: 1.50 Years: 22.00 Pack years: 33.00 Types: Cigarettes Quit date: 1989 Years since quittin.8 Smokeless tobacco: Never Substance Use Topics Alcohol use: Yes Comment: few times a year. mixed drinls/marcelino. 3 in sitting. Drug use: No Comment: denies tx for drug/alcohol abuse in the past. EXAM: BP 128/88 Pulse 85 Resp 18 Wt 73.5 kg (162 lb) SpO2 97% BMI 29.63 kg/m PHYSICAL EXAM: General Appearance: Well appearing, alert, in no acute distress, well-hydrated, well nourished.. Skin: Skin color, texture, turgor normal, no suspicious rashes or lesions. Several skin tags and SKs in the upper chest/neck. Head: Normocephalic, no masses, lesions, tenderness or abnormalities. Eyes: Anicteric sclera. Extraocular movements are intact. . Neck: Supple, no adenopathy; thyroid symmetric, normal size, no bruits. Lungs: Lungs clear to auscultation. No wheezing, rhonchi, rales.. Heart: RRR without murmur, gallop, or rubs. No ectopy. Abdomen: Abdomen soft, non-tender. Bowel sounds normal. No masses, organomegaly. Extremities: No deformities, edema, skin discoloration, clubbing or cyanosis. Good capillary refill. . Neurologic: Gait normal. Feet:Shoes and socks removed, No deformities, ulcers, calluses, normal distal pulses, and sensitiveto 10 gm monofilament ASSESSMENT/PLAN: 1. Type 2 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 with stage 3 chronic kidney disease, without long- term current use of insulin, unspecified whether stage 3a or 3b CKD (HCC) - ICD9: 250.40, 585.3, ICD10: E11.22, N18.30 (primary diagnosis) Continue current medications. Due for labwork. - HGB A1C - COMP METABOLIC PANEL - ALBUMIN/CREAT RATIO RND UR 2. Skin lesion - ICD9: 709.9, ICD10: L98.9 - CONSULT TO DERMATOLOGY 3. Encounter for immunization - ICD9: V03.89, ICD10: Z23 - INFLUENZA SEASONAL QUADRIVALENT HIGH DOSE AGE 65+ - [employer] COVID-19 BIVALENT BOOSTER VACCINE, AGE 12+ YR 4. Anemia, unspecified type - ICD9: 285.9, ICD10: D64.9 recheck - CBC + DIFF 5. Hyponatremia - ICD9: 276.1, ICD10: E87.1 Recheck. Refers that she stopped the previous sodium, as it was making her feel ill. 6. Hypothyroidism, unspecified type - ICD9: 244.9, ICD10: E03.9 Recheck. - TSH BLD 7. Mixed hyperlipidemia - ICD9: 272.2, ICD10: E78.2 - LIPID PANEL, NONFASTING 8. Encounter for screening mammogram for breast cancer - ICD9: V76.12, ICD10: Z12.31 - Set up for mammogram, yearly mammogram recommended - TONY SCREENING 9. Screening for colon cancer - ICD9: V76.51, ICD10: Z12.11 Due for surveillance. - CONSULT TO GENERAL SURGERY 10. Intertrigo - ICD9: 695.89, ICD10: L30.4 She continues to frequently self-treat intertrigo at home. Discussed treatment plan and patient voices understanding. Patient's questions answered appropriately. Medications and potential side effects were discussed and patient voices understanding. Return to the office as scheduled or as needed for worsening/no improvement. Christine Morgan APRN.CD REACTOR OPERATOR The patient indicates understanding of these issues and agrees with the plan. documented in this encounterK[facility]11-[facility]-2022 Evaluation note* Diagnosis Type 2 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 with stage 3 chronic kidney disease, without long-term current use of insulin, unspecified whether stage 3a or 3b CKD (HCC)- Primary Skin lesion Unspecified disorder of skin and subcutaneous tissue Encounter for immunization Need for other specified prophylactic vaccination against single bacterial disease Anemia, unspecified type Hyponatremia Hyposmolality and/or hyponatremia Hypothyroidism, unspecified type Mixed hyperlipidemia Encounter for screening mammogram for breast cancer Screening for colon cancer Special screening for malignant neoplasms, colon Intertrigo Other specified erythematous condition documented in this encounter [facility]10-13-20[facility] History of Present illness Narrative* Kaylen Lindsey, - 01/02/2022 2:09 PM EDT Follow Up Visit Chief Complaint Mary Jane De Paz is a 71 year old female who presents today for follow up office visit. Patient presents with: Right Hip - Established Patient, Post Op, Pain History of Present Illness PAIN EVALUATION 01/02/2022 1342 Pain Level: 10 Pain Location: Hip-Right Description: Sharp Duration Amount of Time: 2 Duration Units: Weeks Frequency: Intermittent Intervention/Comfort measure: Reposition;Relaxation;Heat;Exercise HPI: Mary Jane De Paz is a 71 year old female for a follow up visit right hip pain. Pain history is noted as above. Denies calf pain, numbness, tingling, fever, chills or other constitutional symptoms. Right hip pain occasionally sharp at times while ambulating. Has seen my partner for workup for right knee, lateral delimber operator brace, will be having right tka coveriosn from initial partial replacementin the new year. Is there any overall improvement in your condition? Yes, Any new injury, since being seen last: No REVIEW OF SYMPTOMS: Patient did not have, and does not currently have, any weight loss, malaise, fever, chills, headache, chest pain, chest pressure, palpitations, cough, shortness of breath, orthopnea, paroxsymal nocturnal dyspnea, nausea, vomiting, diarrhea, constipation, melena, hematochezia, urinary difficulties, prolonged bleeding, easily bruising, heat or cold intolerance, new onset joint pain or swelling, newonset extremity weakness or numbness, new onset auditory or visual disturbances, lightheadedness, dizziness, partial loss of consciousness or full loss of consciousness. Current Outpatient Medications Medication Sig APPLE CIDER VINEGAR ORAL Take 1 capsule by mouth once daily. 450 mg capsule OTC NUTRITIONAL SUPPLEMENT Take 1 capsule by mouth once daily. Tumeric - 2000 mg capsule acetaminophen (TYLENOL) 500 mg tablet Take 2 tablets by mouth every 8 hours as needed for pain. esomeprazole (NEXIUM) 40 mg capsule TAKE ONE CAPSULE BY MOUTH twice daily. levothyroxine (SYNTHROID) 100 mcg tablet Take 1 tablet by mouth once daily. buPROPion XL (WELLBUTRIN XL) 300 mg 24 hr tablet Take 1 tablet by mouth once daily. traZODone (DESYREL) 100 mg tablet Take 2 tablets by mouth daily at bedtime. glimepiride (AMARYL) 2 mg tablet Take 1 tablet by mouth daily with breakfast. (Patient taking differently: Take 4 mg by mouth daily with breakfast.) lisinopril (ZESTRIL, PRINIVIL) 10 mg tablet Take 1 tablet by mouth once daily. atorvastatin (LIPITOR) 20 mg tablet Take 1 tablet by mouth daily at bedtime. For cholesterol. dicyclomine (BENTYL) 20 mg tablet Take 1 tablet by mouth before meals and at bedtime. (Patient taking differently: Take 20 mg by mouth twice daily before meals (0600/1600).) dulaglutide (TRULICITY) 0.75 mg/0.5 mL pen injector Inject 0.75 mg subcutaneously one time a week. Inject dose once per week. Discard Pen After FLUoxetine (PROZAC) 20 mg capsule Take 3 capsules by mouth once daily. (Patient taking differently:Take 60 mg by mouth once daily. Pt takes all 3 capsules in the morning) MULTI-VITAMIN ORAL Take 1 tablet by mouth once daily. Takes bariatric multivitamin daily methylPREDNISolone (MEDROL, KONRAD,) 4 mg Dose-Pack Take 1 tablet by mouth as directed. As directed onpackage (Patient not taking: Reported on 01/02/2022) ascorbic acid, vitamin C, (VITAMIN C) 500 mg tablet Take 1 tablet by mouth twice daily with meals for 25 doses. oxyCODONE IR (ROXICODONE) 5 mg immediate release tablet Take 1-2 tablets by mouth every 6 hours as needed for pain. (Patient not taking: Reported on 01/02/2022) calcium citrate/vitamin D3 (CALCIUM CITRATE + D ORAL) Take 1 tablet by mouth twice daily. (Patient not taking: Reported on 01/02/2022) No current facility-administered medications for this visit. Physical Exam Vitals: There were no vitals taken for this visit. Psych: Pleasant, good affect and mood General Appearance: Well appearing, alert, in no acute distress, well-hydrated, well nourished.. Skin: Skin color, texture, turgor normal, no suspicious rashes or lesions. Peripheral Pulses: Normal. Neurologic: Gait normal. Reflexes normal and symmetric. Sensation grossly intact.. Lymph Nodes: No cervical lymphadenopathy, No supraclavicular lymphadenopathy, No axillary lymphadenopathy., and No inguinal lymphadenopathy.. Respiratory: No recent pulmonary infection, hemoptysis, chronic cough, or shortness of breath at rest Rheumatologic: Joint deformities: right hip pain Right Hip Exam Tenderness The patient is experiencing no tenderness. Range of Motion Internal rotation: abnormal Muscle Strength The patient has normal right hip strength. Other Erythema: absent Sensation: normal Pulse: present Comments: Decreased IR right hip, neg heel strike Left Hip Exam Left hip exam is normal. Tenderness The patient is experiencing no tenderness. Range of Motion The patient has normal left hip ROM. Muscle Strength The patient has normal left hip strength. Other Erythema: absent Sensation: normal Pulse: present Assessment and Plan Radiographs: I have reviewed the images with the patient and family. Last XR Hip/Pelvis - Impression Only XR HIP GENERAL 3V PELV/AP/LAT RIGHT Exam End: 01/02/2022 1:41 PM (In process) Impression: Encounter Diagnosis ICD-10-CM 1. Closed displaced fracture of right femoral neck ([facility]) S72.001A 2. Hip fracture requiring operative repair, right, closed, initial encounter ([facility]) S72.001A Today, in detail, through a thorough evaluation, we discussed possible etiologies of pain and our plans for further diagnostic and therapeutic interventions. We discussed strategies for decreasing pain and improving strength, stability and motion. Patient's questions were answered in detailed. Patient verbalizes understanding and agrees with the treatment plan as discussed. Doing well, discussed right reid as advancing oa but no signs of avn on xray today Cont HEP Lateral delimber operator brace No concerns today Follow up with repeat xrays in 6 weeks Patient aware and in agreement of plan. All questions answered. Kaylen Lindsey DO * Penelope Cedeno LPN - 01/02/2022 1:42 PM EDT AMB ROOMING INTAKE FLOWSHEET DATA Pain Pain Level: 10 Pain Location: Hip-Right Description: Sharp Duration Amount of Time: 2 Duration Units: Weeks Frequency: Intermittent Intervention/Comfort measure: Reposition, Relaxation, Heat, Exercise Patient presents with: Right Hip - Established Patient, Post Op, Pain Patient present to office 6 weeks 4 days post op Right hip closed reduction femoral neck with cannulated screw fixation. Patient reports pain in groin rating 10/10. Penelope Cedeno LPN documented in this [facility]10-[facility] History of Present illness Narrative* RT Smiley(R) - 01/02/2022 1:30 PM EDT Radiology Service Progress Note PATIENT NAME: Mary Jane De Paz DATE OF SERVICE: January 02, 2022 TIME: 1:25 PM PATIENT IDENTITY VERIFICATION COMPLETED USING TWO (2) IDENTIFIERS: Name and Date of confirmedby patient verbally. FALL SCREENING: Has the patient had 2 falls in the last year or 1 fall with injury or currently using an Ambulatory Assistive Device (Walker, Cane, Wheelchair, Crutches, etc.)? No PATIENT GENDER DATA: Female. status: : No status: NO. PATIENT RELEVANT IMPLANT DATA REVIEWED: Not Applicable RADIOLOGY DEPARTMENT: General X-ray: Exam(s) Completed: Pelvis X-Ray: Pelvis with Hip Right PERIPHERAL IV DATA: Not applicable SIGNED BY: RT Smiley(R) January 02, 2022 1:25 PM documented in this encounterK[facility]09-30-2022 Miscellaneous Notes* Telephone Encounter - Adelaida Pham - 12/20/2021 1:13 PM EDT Called and spoke to Abebe SAUNDERS and relayed the information below to him. He stated understanding and will call us if he has any more questions. Adelaida Pham * Telephone Encounter - Sonja Parr RN - 12/20/2021 1:04 PM EDT Seth PT with [facility] calling Asking about PT protocol and hip precautions [phone] fax number is [phone]. [address] Cortes: Wbat Advance strengthening and ROM as tolerated (No need for post hip precautions as not a replacement) Thanks- Kaylen Lindsey DO documented in this [facility]09-30-2022 Miscellaneous Notes* Telephone Encounter - Adelaida Pham - 12/20/2021 1:11 PM EDT Patient would like to schedule a knee replacement in Apr with Dr. Patricia. Thank you! Adelaida Pham documented in this encounterK[facility]09-29-2022 History of Present illness Narrative* Donavon Patricia MD - 12/19/2021 3:44 PM EDT Orthopaedic Office Note: December 19, 2021 8:38 PM Mary Jane De Paz 71 year old History: Mary Jane is a 71-year-old woman referred to me by my partner Dr. Lindsey for her right knee. Approximately 1 month ago she sustained a right proximal femoral neck fracture, now appropriately treated with cannulated screw fixation by the above partner. She has done very well from that. Unfortunately when she fell she also injured her right knee. She has a remote history of a partial knee replacement on that side. She was starting to have some discomfort in that knee before the fall, but now became much worse after the fall. The pain is predominantly patellofemoral and lateral. Subjective: See above patellofemoral and lateral knee pain on the right side Updated ROS: No changes Updated Exam: Right lower Extremity Well-healed surgical incision over the knee Moderate effusion No erythema Tender palpation directly over the lateral proximal tibia, lateral femoral condyle, and lateral joint line Does have gapping with varus and valgus force Painful patellar grind Painless arcs of motion at the hip Updated Imaging: Adjacent compartment disease in the right knee with subchondral sclerosis, osteophyte formation, and tibial subluxation Assessment and Plan: Mary Jane is a 71-year-old status post hip fracture screw fixation. 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 She has substantial pain there. She still has a bruise from a fall over the lateraljoint line. I do believe that this point she would benefit from conversion to a total knee replacement. I wouldplan to do this robotically. I explained to her that from a revision standpoint I am booked into 2022 currently. She has an anniversary trip planned in mid April, and I do not think that she will be fully recovered from her revision if we do this in March. For this reason, we will plan to do the revision surgery when she returns. I would like to see her again in early April before her trip. I have provided a Medrol Dosepak today to help with her inflammation. We are getting get her into a off calcine furnace loader brace to offload the lateral compartment in the interim. All questions answered today. Focused examination of Right knee, patient has mild laxity and slight joint space opening LATERAL with varus stress. I spent a total of approximately 25 minutes on the date of the service which included preparing to see the patient, [id number] patient care, completing clinical documentation, obtaining and/or reviewing separately obtained history, performing a medically appropriate examination, counseling and educating the patient/family/caregiver, ordering medications, tests, or procedures, independently interpreting results (not separately reported), communicating results to the patient/family/caregiver, and care coordination (not separately reported). Donavon Patricia MD Orthopaedic Surgery documented in this encounterK[facility]09-27-2022 History of Present illness Narrative* Homa Douglas RN - 12/17/2021 1:52 PM EDT Images from the original note were not included. TRANSITION CARE MANAGEMENT (TCM) FOLLOW-UP NOTE Provider Action/FYI Patient identified by name and date of : NO Spoke to patient Summary: Pt discharged from [facility] on 11/19/21 Admitted for: closed right hip fracture, hyponatremia Concerns: None at this time Chaperon plan for next outreach: No further follow up needed at this time Signature Homa Douglas RN December 17, 2021 documented in this encounterK[facility]09-26-2022 Miscellaneous Notes* Telephone Encounter - Eugenia Valenzuela - 12/16/2021 1:32 PM EDT Patient called back and scheduled * Telephone Encounter - Eugenia Valenzuela - 12/16/2021 1:03 PM EDT Left VM for patient offering appointment day and time. Asked her to please call back to confirm if she can make this appointment. If patient calls back please schedule as appointment time is on hold. * Telephone Encounter - Gely Hernandez Ankush - 12/16/2021 12:01 PM EDT Please call patient and offer her an appointment with Dr. Patricia on , December 19, 2021 at3:40 pm. This would be for right knee pain. (Please confirm) Gely Hernandez [facility] documented in this encounterK[facility]22 History of Present illness Narrative* Homa Douglas RN - 12/11/2021 4:13 PM EDT TRANSITION CARE MANAGEMENT (TCM) FOLLOW-UP NOTE Provider Action/FYI Ortho 01/02/2022 PCP 01/29/2022 Patient identified by name and date of : YES Spoke to patient Summary: Pt discharged from [facility] on 11/19/21 Admitted for: closed right hip fracture, hyponatremia Concerns: Patient has worsened Right new pain. Has had knee replacement in the past. States she was recommended to see Dr. Patricia but he is booked out until February. She would like to know if you would be able to get into a surgeon who does knee revisions/replacements sooner as she has a vacation in April. She has a follow up with Dr. Lindsey but she does not do knee revisions. Chaperon plan for next outreach: Will follow up 1 week. Signature Homa Douglas RN December 11, 2021 documented in this encounterK[facility]09-15-2022 Miscellaneous Notes* PT DISCHARGE - Saniya Martínez, PT - 12/05/2021 3:01 PM EDT SITUATION: spouse present during today's visit. patient reports the following since the last homecare visit: medications/allergies--no changes, no fall. patient reports she is doing well. Pt reports a good appt with Dr Hernández. She has rx to [facility] but wants to go to the same PT as her spouse so there will be a delay BACKGROUND: Diagnoses (reason for Home Care): R closed displaced femoral neck fx with closed reduction and nailing 11/17/[address] Grossman Weight Bearing/Precaution Changes: no changes ASSESSMENT: Focus of visit: reaassessment /discharge Physical therapy discharged: goals achieved. Functional performance at discharge - bed mobility independent, transfers independent, ambulation independent and stairs independent. Plan of care, goals, and discharge reviewed and agreed upon with patient and/or caregiver. RECOMMENDATION: Patient discharged from home health services. Instructions to include:begin outpatient therapy on next week See intervention summary for intervention/education details. documented in this encounterK[facility]09-14-2022 History of Present illness Narrative* Kaylen Lindsey, DO - 12/04/2021 11:06 AM EDT Images from the original note were not included. Follow Up Visit Chief Complaint Mary Jane De Paz is a 71 year old female who presents today for follow up office visit. Patient presents with: Right Hip - Post Op, Pain, Established Patient History of Present Illness PAIN EVALUATION 12/04/2021 1102 Pain Level: 3 Pain Location: Hip-Right Description: Sharp;Aching Duration Amount of Time: 17 DOS 11/17/2021 Frequency: Intermittent Intervention/Comfort measure: Relaxation;Reposition;Positioning;Medication;Cold Oxycodone, Tylenol HPI: Mary Jane De Paz is a 71 year old female for a follow up visit S/P Right Hip Nailing. Pain history is noted as above. Denies calf pain, numbness, tingling, fever, chills or other constitutional symptoms. Is there any overall improvement in your condition? No Any new injury, since being seen last: No REVIEW OF SYMPTOMS: Patient did not have, and does not currently have, any weight loss, malaise, fever, chills, headache, chest pain, chest pressure, palpitations, cough, shortness of breath, orthopnea, paroxsymal nocturnal dyspnea, nausea, vomiting, diarrhea, constipation, melena, hematochezia, urinary difficulties, prolonged bleeding, easily bruising, heat or cold intolerance, new onset joint pain or swelling, newonset extremity weakness or numbness, new onset auditory or visual disturbances, lightheadedness, dizziness, partial loss of consciousness or full loss of consciousness. Current Outpatient Medications Medication Sig APPLE CIDER VINEGAR ORAL Take 1 capsule by mouth once daily. 450 mg capsule OTC NUTRITIONAL SUPPLEMENT Take 1 capsule by mouth once daily. Tumeric - 2000 mg capsule acetaminophen (TYLENOL) 500 mg tablet Take 2 tablets by mouth every 8 hours as needed for pain. ascorbic acid, vitamin C, (VITAMIN C) 500 mg tablet Take 1 tablet by mouth twice daily with meals for 25 doses. docusate sodium (COLACE) 100 mg capsule Take 1 capsule by mouth twice daily as needed for constipation. oxyCODONE IR (ROXICODONE) 5 mg immediate release tablet Take 1-2 tablets by mouth every 6 hours as needed for pain. esomeprazole (NEXIUM) 40 mg capsule TAKE ONE CAPSULE BY MOUTH twice daily. levothyroxine (SYNTHROID) 100 mcg tablet Take 1 tablet by mouth once daily. buPROPion XL (WELLBUTRIN XL) 300 mg 24 hr tablet Take 1 tablet by mouth once daily. traZODone (DESYREL) 100 mg tablet Take 2 tablets by mouth daily at bedtime. glimepiride (AMARYL) 2 mg tablet Take 1 tablet by mouth daily with breakfast. (Patient taking differently: Take 4 mg by mouth daily with breakfast.) lisinopril (ZESTRIL, PRINIVIL) 10 mg tablet Take 1 tablet by mouth once daily. atorvastatin (LIPITOR) 20 mg tablet Take 1 tablet by mouth daily at bedtime. For cholesterol. dicyclomine (BENTYL) 20 mg tablet Take 1 tablet by mouth before meals and at bedtime. (Patient taking differently: Take 20 mg by mouth twice daily before meals (0600/1600).) dulaglutide (TRULICITY) 0.75 mg/0.5 mL pen injector Inject 0.75 mg subcutaneously one time a week. Inject dose once per week. Discard Pen After FLUoxetine (PROZAC) 20 mg capsule Take 3 capsules by mouth once daily. (Patient taking differently:Take 60 mg by mouth once daily. Pt takes all 3 capsules in the morning) calcium citrate/vitamin D3 (CALCIUM CITRATE + D ORAL) Take 1 tablet by mouth twice daily. MULTI-VITAMIN ORAL Take 1 tablet by mouth once daily. Takes bariatric multivitamin daily sodium chloride 1 gram tab Take 1 tablet by mouth twice daily. (Patient not taking: Reported on 12/04/2021) No current facility-administered medications for this visit. Physical Exam Vitals: There were no vitals taken for this visit. Psych: Pleasant, good affect and mood General Appearance: Well appearing, alert, in no acute distress, well-hydrated, well nourished.. Skin: Skin color, texture, turgor normal, no suspicious rashes or lesions. Peripheral Pulses: Normal. Neurologic: Gait normal. Reflexes normal and symmetric. Sensation grossly intact.. Lymph Nodes: No cervical lymphadenopathy, No supraclavicular lymphadenopathy, No axillary lymphadenopathy., and No inguinal lymphadenopathy.. Respiratory: No recent pulmonary infection, hemoptysis, chronic cough, or shortness of breath at rest Rheumatologic: Joint deformities: Right hip pain/follow up Right Knee Exam Tenderness The patient is experiencing tenderness in the patella. Range of Motion Extension: normal Flexion: normal Tests Clarke: Anterior - negative Posterior - negative Drawer: Anterior - negative Posterior - negative Other Erythema: absent Sensation: normal Pulse: present Swelling: mild Comments: Pf pain and crepitus No warmth, no signs of infection, no erythema Left Knee Exam Left knee exam is normal. Muscle Strength The patient has normal left knee strength. Tenderness The patient is experiencing no tenderness. Range of Motion Extension: normal Flexion: normal Tests Clarke: Anterior - negative Posterior - negative Drawer: Anterior - negative Posterior - negative Other Erythema: absent Sensation: normal Pulse: present Swelling: none Comments: Neg homans bilaterally Right Hip Exam Tenderness The patient is experiencing tenderness in the greater trochanter. Muscle Strength The patient has normal right hip strength. Other Erythema: absent Scars: present Sensation: normal Pulse: present Left Hip Exam Left hip exam is normal. Tenderness The patient is experiencing no tenderness. Range of Motion The patient has normal left hip ROM. Muscle Strength The patient has normal left hip strength. Other Erythema: absent Sensation: normal Pulse: present Last XR Hip/Pelvis - Impression Only XR HIP GENERAL 3V PELV/AP/LAT RIGHT Exam End: 12/04/2021 10:15 AM (Final result) Impression: IMPRESSION: 1. Stable internally fixated right femoral neck fracture 2. No acute abnormality in the right knee. Senior Laboratory Technician: PSCCristobal Transcribe Date/Time: Dec 04 2021 3:05P... Last XR Knee - Impression Only XR KNEE GENERAL 4V AP BOTH/PA BOTH/LAT/MERC RIGHT Exam End: 12/04/2021 11:38 AM (Final result) Impression: IMPRESSION: 1. Stable internally fixated right femoral neck fracture 2. No acute abnormality in the right knee. Senior Laboratory Technician: SEFERINO Transcribe Date/Time: Dec 04 2021 3:05P... Assessment and Plan Radiographs: I have independently reviewed films and my findings are the same. and I have reviewed the images with the patient and family. Last XR Hip/Pelvis - Impression Only XR HIP GENERAL 3V PELV/AP/LAT RIGHT Exam End: 12/04/2021 10:15 AM (Final result) Impression: IMPRESSION: 1. Stable internally fixated right femoral neck fracture 2. No acute abnormality in the right knee. Senior Laboratory Technician: [facility] Transcribe Date/Time: Dec 04 2021 3:05P... Impression: Encounter Diagnosis ICD-10-CM 1. Chronic pain of right knee M25.561 XR KNEE GENERAL 4V AP BOTH/PA BOTH/LAT/MERC RIGHT G89.29 2. Hip fracture requiring operative repair, right, closed, initial encounter ([facility]) S72.001A 3. Closed displaced fracture of right femoral neck ([facility]) S72.001A Today, in detail, through a thorough evaluation, we discussed possible etiologies of pain and our plans for further diagnostic and therapeutic interventions. We discussed strategies for decreasing pain and improving strength, stability and motion. Patient's questions were answered in detailed. Patient verbalizes understanding and agrees with the treatment plan as discussed. D/w patient regarding dr patricia vs dr kerr regarding patient follow up for tka right knee discussion as patient would prefer to see dr kerr as he is closer but we did discuss that this was a revision that dr kerr did not do, not sure if she would prefer a second opinion closer to home which she is more than welcome to do so, not sure who is in her insurance network however so best for patient to look into it Will follow up in 6 weeks for right hip, xrays and discussed no signs of avn today but what we are looking for with xrays Will f/u in 6 weeks with both of us- dr patricia and myself on a Thursday As now with pf pain and right med uka that is 20-25 years out and discussion w dr patricia regarding options Patient aware and in agreement of plan. All questions answered. documented in this encounterK[facility]09-14-2022 History of Present illness Narrative* ANGELA Steele - 12/04/2021 10:00 AM EDT Radiology Service Progress Note PATIENT NAME: Mary Jane De Paz DATE OF SERVICE: December 04, 2021 TIME: 10:16 AM PATIENT IDENTITY VERIFICATION COMPLETED USING TWO (2) IDENTIFIERS: Name and Date of confirmedby patient verbally. FALL SCREENING: Has the patient had 2 falls in the last year or 1 fall with injury or currently using an Ambulatory Assistive Device (Walker, Cane, Wheelchair, Crutches, etc.)? Yes, Patient High Riskfor Falls What interventions were put in place to prevent falls during this visit? Offered Assistance with Transfers/Clothing and Increased Observations by Caregivers PATIENT GENDER DATA: Female. status: : No status: NO. PATIENT RELEVANT IMPLANT DATA REVIEWED: Not Applicable RADIOLOGY DEPARTMENT: General X-ray: Exam(s) Completed: Pelvis X-Ray: Pelvis with Hip Right and Wt.Bearing PERIPHERAL IV DATA: Not applicable SIGNED BY: ANGELA Steele December 04, 2021 10:16 AM * ANGELA Steele - 12/04/2021 10:00 AM EDT Radiology Service Progress Note PATIENT NAME: Mary Jane De Paz DATE OF SERVICE: December 04, 2021 TIME: 11:39 AM PATIENT IDENTITY VERIFICATION COMPLETED USING TWO (2) IDENTIFIERS: Name and Date of confirmedby patient verbally. FALL SCREENING: Has the patient had 2 falls in the last year or 1 fall with injury or currently using an Ambulatory Assistive Device (Walker, Cane, Wheelchair, Crutches, etc.)? Yes, Patient High Riskfor Falls What interventions were put in place to prevent falls during this visit? Offered Assistance with Transfers/Clothing and Increased Observations by Caregivers PATIENT GENDER DATA: Female. status: : No status: NO. PATIENT RELEVANT IMPLANT DATA REVIEWED: Not Applicable RADIOLOGY DEPARTMENT: General X-ray: Exam(s) Completed: Lower Extremity X- Ray(s): Knee, AP / Lat / Tunne / Merchant Right and Wt. Bearing PERIPHERAL IV DATA: Not applicable SIGNED BY: ANGELA Steele December 04, 2021 11:39 AM documented in this encounterK[facility]09-13-2022 Miscellaneous Notes* PT ROUTINE/REASSESSMENT/RECERT/CASE MGMT - Esperanza Basurto PTA - 12/03/2021 3:56 PM EDT SITUATION: spouse present during today's visit. patient reports the following since the last homecare visit: medications/allergies--no changes, no fall. patient reports she is doing well. Anxious to see Dr tomorrow. BACKGROUND: Diagnoses (reason for Home Care): R closed displaced femoral neck fx with closed reduction and nailing 11/17/[address] Grossman Weight Bearing/Precaution Changes: no changes ASSESSMENT: Focus of visit progression to bilateral standing exercises for HEP and cane traning including outdoors, level surfaces Issued NOMNC Plan of care, goals, and visit frequency reviewed and agreed upon with patient and/or caregiver. Current Discharge Plan: independent with home exercise program Anticipate discharge by 12/05/21 RECOMMENDATION: Next visit to focus on PT to see for possible DC See intervention summary for intervention/education details. documented in this encounterK[facility]09-13-2022 History of Present illness Narrative* Homa Douglas RN - 12/03/2021 3:28 PM EDT TRANSITION CARE MANAGEMENT (TCM) FOLLOW-UP NOTE Provider Action/FYI Ortho 12/04/2021 [facility] Patient identified by name and date of : YES Spoke to patient Summary: Pt discharged from [facility] on 11/19/21 Admitted for: closed right hip fracture, hyponatremia Minimal pain Mobility increasing No neef for medication refills at this time Concerns: None Chaperon plan for next outreach: Will follow up 1 week. Signature Homa Douglas RN December 03, 2021 documented in this encounterK[facility]09-08-2022 Miscellaneous Notes* PT ROUTINE/REASSESSMENT/RECERT/CASE MGMT - Esperanza Basurto PTA - 11/28/2021 4:00 PM EDT SITUATION: spouse present during today's visit. patient reports the following since the last homecare visit: medications/allergies--no changes, no fall. patient reports she is feeling better every day but did not sleep well last night. could not get comfortable on her side . BACKGROUND: Diagnoses (reason for Home Care): fall w/ fractured femur which required surgical nailing Weight Bearing/Precaution Changes: no changes ASSESSMENT: Focus of visit progression of exercises for HEP. trial gait traiinng w/ quad cane. patient did ok but cane is older and unsteady. Patient stated she ordered a standard cane that should arrive next week. Patient to continue w/ ww at this time for safety and to decrease fall risk. Will try standard cane when it arrives Plan of care, goals, and visit frequency reviewed and agreed upon with patient and/or caregiver. Current Discharge Plan: independent with home exercise program Anticipate discharge by 12/05/21 RECOMMENDATION: Next visit to focus on cane training including stairs. NOMNC See intervention summary for intervention/education details. documented in this encounterK[facility]09-07-2022 History of Present illness Narrative* Christine Morgan APRN.CD REACTOR OPERATOR - 11/27/2021 1:06 PM EDT Chief Complaint Patient presents with: Telemedicine Patient was offered a virtual/telemedicine appointment in lieu of an office visit due to recommendations to reduce patient exposure to COVID-19. Video was used for evaluation of this patient. Patient is aware of limitations of performing the visit without a face to face visit in the office setting and agrees. Patient agrees to the visit: Yes Patient Location: [facility] [place] Mary Jane De Paz is a 71 year old female who is contacted today for a virtual visit This is anestablished patient of Dr. Christine Morgan APRN.CD REACTOR OPERATOR Reports: hospital follow-up. Copied from discharge summary. HOSPITAL COURSE: Patient admitted to the hospital with right hip fracture. She underwent surgery with orthopedics team with reduction and operative fixation. 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 She has been started on sodium chloride tablets at a low-dose. She will plan for discharge home with home health with pain control and DVT prophylaxis as per orthopedics team. Outpatient follow-up is also being set up by them. She is recommended outpatient follow-up with BMP in 2 weeks with PCP to monitor sodium levels. Went to the ER on 11/16/21. Pt refers that she broke her hip. [place] She [place] moving furniture and mowing and fell and broke her hip. She initially presented to [place] via private vehicle and then was transferred to [place]. She had broken the right hip. She had surgery the next afternoon. Refers that she had three pins and screws in. Discharged to home on 11/19/21. She is getting physical therapy at home. No visiting nurses. She has follow-up scheduled w/ ortho in a week. Reports that the prescribed blood thinners were too expensive. Lovenox was also too expensive. She is taking ASA twice devries. She is using a walker to ambulate. Pain is nearly absent when she is sitting. Refers that when she is up, more pain. Refers pain in the thigh when she is getting up and down or tries to move it in bed. She is trying to avoid opioid. Breathing has been okay. Appetite -- small meals. No CP/palpitations/SOB. Refers that she will get the sensation of a baby turning in her chest/ribs. Refers that doesn't hurt. Can happen 1-2 times daily -- will be very brief in nature. Takes me right back to my days. She is moving bowels. She is taking the laxative and miralax. No hematochezia/melena. Urinating okay. No fevers/chills. Hyponatremia. Had hyponatremia in the hospital Did start sodium. Plans to recheck labs next week when she goes to [place] to follow-up w/ surgeon. Past medical history, appointments, medications, allergies reviewed 11/27/2021 Previous Medical History PAST MEDICAL HISTORY Diagnosis Date Allergic rhinitis Arthritis [facility], knee Asthma CKD (chronic kidney disease) 11/01/2018 Class 3 severe obesity with serious comorbidity and body mass index (BMI) of 40.0 to 44.9 in adult ([facility]) 08/19/[address] Salazar Environmental allergies GERD (gastroesophageal reflux disease) HTN (hypertension) Hypothyroidism Mixed hyperlipidemia NIDDM (non-insulin dependent 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) MARIBEL on CPAP CPAP 9Cm Renal lesion 01/15/15 Suggest renal US every 1-2 years per PCP or nephro. Snoring Type 2 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 with hyperglycemia, with long-term current use of insulin ([facility]) 02/27/2001 Previous Surgical History PAST SURGICAL HISTORY Procedure Laterality Date COLONOSCOPY 11/05/2016 Tammi- divertiuclosis, internal hemorrhoids, repeat in 5 years COSMETIC ASSESSMENT EGD 11/05/2016 Tammi- gastritis EGD 09/08/2018 /Gastritis EGD 04/02/2020 EYE SURGERY HX FRACTURE SURGERY GASTRIC BYPASS HX 12/13/2018 HYSTERECTOMY JOINT REPLACEMENT HX OOPHORECTOMY PARTIAL OR TOTAL PAST SURGICAL HISTORY OF 2009 hemmroidectomy/sphincterectomy - Dr Nichole PAST SURGICAL HISTORY OF 2008 total left knee replacement PAST SURGICAL HISTORY OF 2003 partial right knee replacement PAST SURGICAL HISTORY OF 1990 total hysterectomy PAST SURGICAL HISTORY OF 2010 lDr Mansoor - [place] elbow fracture - traumatic. radial head replacement PAST SURGICAL HISTORY OF Bilateral 2016 hand surgery PAST SURGICAL HISTORY OF Left RELEASE CONTRACTURE DEQUERVAINS SKIN BIOPSY HX TUBAL LIGATION HX VAGINAL HYSTERECTOMY Family History FAMILY HISTORY Problem Relation Age of Onset other (polio) Mother Diabetes Father other (Squamous cell ca) Father other (renal cell ca) Father 1999 other (htn) Father other (renal cell ca) Brother 2010 other (Thyroid Cancer) Sister other (thyroid disease) Sister ca Obesity Paternal Grandmother Obesity Daughter Patient Allergies ALLERGIES Allergen Reactions Vicodin [Hydrocodon* Itching Pt not sure if she has an allergy but states she wants it documented. Current Medications Current Outpatient Medications on File Prior to Visit Medication Sig APPLE CIDER VINEGAR ORAL Take 1 capsule by mouth once daily. 450 mg capsule OTC NUTRITIONAL SUPPLEMENT Take 1 capsule by mouth once daily. Tumeric - 2000 mg capsule [DISCONTINUED] lactose-reduced food (ADULT NUTRITIONAL SUPPLEMENT ORAL) Take 1 capsule by mouth once daily. Tumeric - 2000mg capsule acetaminophen (TYLENOL) 500 mg tablet Take 2 tablets by mouth every 8 hours as needed for pain. ascorbic acid, vitamin C, (VITAMIN C) 500 mg tablet Take 1 tablet by mouth twice daily with meals for 25 doses. docusate sodium (COLACE) 100 mg capsule Take 1 capsule by mouth twice daily as needed for constipation. oxyCODONE IR (ROXICODONE) 5 mg immediate release tablet Take 1-2 tablets by mouth every 6 hours as needed for pain. sodium chloride 1 gram tab Take 1 tablet by mouth twice daily. esomeprazole (NEXIUM) 40 mg capsule TAKE ONE CAPSULE BY MOUTH twice daily. levothyroxine (SYNTHROID) 100 mcg tablet Take 1 tablet by mouth once daily. buPROPion XL (WELLBUTRIN XL) 300 mg 24 hr tablet Take 1 tablet by mouth once daily. traZODone (DESYREL) 100 mg tablet Take 2 tablets by mouth daily at bedtime. glimepiride (AMARYL) 2 mg tablet Take 1 tablet by mouth daily with breakfast. (Patient taking differently: Take 4 mg by mouth daily with breakfast.) lisinopril (ZESTRIL, PRINIVIL) 10 mg tablet Take 1 tablet by mouth once daily. atorvastatin (LIPITOR) 20 mg tablet Take 1 tablet by mouth daily at bedtime. For cholesterol. dicyclomine (BENTYL) 20 mg tablet Take 1 tablet by mouth before meals and at bedtime. (Patient taking differently: Take 20 mg by mouth twice daily before meals (0600/1600).) dulaglutide (TRULICITY) 0.75 mg/0.5 mL pen injector Inject 0.75 mg subcutaneously one time a week. Inject dose once per week. Discard Pen After FLUoxetine (PROZAC) 20 mg capsule Take 3 capsules by mouth once daily. (Patient taking differently:Take 60 mg by mouth once daily. Pt takes all 3 capsules in the morning) calcium citrate/vitamin D3 (CALCIUM CITRATE + D ORAL) Take 1 tablet by mouth twice daily. MULTI-VITAMIN ORAL Take 1 tablet by mouth once daily. Takes bariatric multivitamin daily No current facility-administered medications on file prior to visit. Social History Social History Tobacco Use Smoking status: Former Packs/day: 1.50 Years: 22.00 Pack years: 33.00 Types: Cigarettes Quit date: 1989 Years since quittin.7 Smokeless tobacco: Never Substance Use Topics Alcohol use: Yes Comment: few times a year. mixed drinls/marcelino. 3 in sitting. Drug use: No Comment: denies tx for drug/alcohol abuse in the past. EXAM: There were no vitals taken for this visit. Limited exam as visit was completed over the virtual platform. Virtual visit completed using video, limited exam completed. Patient sounds or appears ill: No General Appearance: Well appearing, alert, in no acute distress, well-hydrated, well nourished. Skin: Skin color normal Head: Normocephalic. No facial swelling or redness. EENT: Eyes nonreddened. No discharge. External ears nonreddened and no swelling. Neck: No mass or lesions. No swelling. FROM Patient is unable to speak in complete sentences: No Patient has labored breathing: No. Patient is audibly coughing: No Psych: Attitude - cooperative, easily engaged in conversation Affect - Euthymic, normal mood Mental status: Alert. Speech is clear and fluent with good repetition, comprehension Appearance - Normal hygiene and grooming appropriate Coordination: No abnormal or extraneous movements. Gait/Stance: Posture is normal. Health Maintenance List BP CONTROLLED (<130/80) Never done SHINGRIX VACCINE(3 of 3) due on 01/20/2019 DILATED RETINAL EXAM due on 10/09/2020 DIABETIC FOOT EXAM due on 02/07/2021 ADVANCE DIRECTIVE DISCUSSION Never done COLORECTAL CANCER SCREENING due on 11/05/2021 INFLUENZA(1) due on 11/21/2021 MAMMOGRAM due on 01/14/2022 URINE ALBUMIN:CREATININE RATIO due on 02/27/2022 HBA1C due on 04/02/2022 LDL CHOLESTEROL due on 07/29/2022 ANNUAL PCP TEAM CHRONIC DISEASE VISIT due on 10/11/2022 SERUM CREATININE due on 11/19/2022 DTAP,TDAP,TD(2 - Td or Tdap) due on 02/19/2028 BONE DENSITY Completed SPIROMETRY Completed HEPATITIS C SCREENING Completed COVID-19 VACCINE Completed PNEUMOCOCCAL: 65+ Completed Data reviewed Last 5 Encounter BP Readings: Date: BP: 11/26/2021 146/74 11/24/2021 134/70 11/23/2021 128/78 11/21/2021 124/74 11/17/2021 129/79 BMI Readings from Last 5 Encounters: 11/17/21 : 30.44 kg/m 11/16/21 : 29.26 kg/m 10/23/21 : 29.81 kg/m 10/11/21 : 29.45 kg/m 07/29/21 : 29.81 kg/m Last 5 Encounter Wt Readings: Date: Wt: 11/17/2021 75.5 kg (166 lb 7.2 oz) 11/16/2021 72.6 kg (160 lb) 10/23/2021 73.9 kg (163 lb) 10/11/2021 73 kg (161 lb) 07/29/2021 73.9 kg (163 lb) Medication and allergy list reviewed, reconciled and updated 11/27/2021 ASSESSMENT/PLAN: 1. Hip fracture requiring operative repair, right, sequela - ICD9: 905.3, ICD10: S72.001S (primary diagnosis) Doing well from info that can be ascertained via virtual visit. She is up moving around. Pain controlled. Having home PT. Has follow-up w/ ortho next week. Discussed s/s of VTE and aware to proceed to ER if develops. 2. Anemia, unspecified type - ICD9: 285.9, ICD10: D64.9 - CBC + DIFF 3. Hyponatremia - ICD9: 276.1, ICD10: E87.1 Continue salt tabs. Recheck level next week. Discussed treatment plan and patient voices understanding. Patient's questions answered appropriately. Medications and potential side effects were discussed and patient voices understanding. Return to the office as scheduled or as needed for worsening/no improvement. Christine Morgan APRN.JOSEFINA documented in this encounterK[facility]-2022 Miscellaneous Notes* PT ROUTINE/REASSESSMENT/RECERT/CASE MGMT - Saniya Martínez, PT - 11/26/2021 3:21 PM EDT SITUATION: spouse present during today's visit. patient reports the following since the last homecare visit: medications/allergies--no changes, no fall. patient reports the pain is so much better today Reports that she has not had a narcotic pain pill today BACKGROUND: Diagnoses (reason for Home Care): R closed displaced femoral neck fx with closed reduction and nailing 11/17/[address] Grossman Weight Bearing/Precaution Changes: no changes ASSESSMENT: Focus of visit patiet/caregvier educated on home safety, verified frequency and duration of visits along with goals and discharge plan. Educated on HEP along with compliance and understanding as per handouts with patient return cues and demo for compliance/understanding. Reviewed pain/edema managemnt per prescribed pain meds/ice/elevation/postioning. Plan of care, goals, and visit frequency reviewed and agreed upon with patient and/or caregiver. Current Discharge Plan: family support Anticipate discharge by 12/07/21 RECOMMENDATION: Next visit to focus on gait/HEP compliance See intervention summary for intervention/education details. documented in this encounterK[facility]09-02-2022 History of Present illness Narrative* Ramo Russo LPN - 11/22/2021 3:50 PM EDT TC to pt, notified of provider response. Pt verbalized understanding. Ramo Russo LPN * Christine Morgan APRN.CNP - 11/22/2021 3:22 PM EDT Can please then advise, per Dr. Lindsey, can use ASA 325 mg twice daily for the next 6 weeks. Christine Morgan APRN.JOSEFINA * Ramo Russo LPN - 11/22/2021 2:22 PM EDT TC to pt, notified of provider response. Pt checked cost while on the phone with this nurse. Pt states it will still be over $60 for 12 syringes and not willing to pay cost of lovenox. Ramo Russo LPN * Christine Morgan APRN.CD REACTOR OPERATOR - 11/22/2021 1:37 PM EDT Can we please see if patient would be able to do daily Lovenox injections? Yes- she needs to be on at minimum asa 325 bid, or lovenox 40mg SQ daily for 6 weeks Thanks Kaylen Lindsey DO * Christine Morgan APRN.JOSEFINA - 11/22/2021 1:[address] Lindsey, Please see below note. Patient did not fill xeralto d/t costs. Do you want her on another prophylactic anticoagulant? Christine Morgan APRN.JOSEFINA * Homa Douglas RN - 11/21/2021 10:07 AM EDT TRANSITIONAL CARE MANAGEMENT (TCM) COMMUNITY MONITORING PROGRAM Provider Action/FYI: Patient is TCM eligible through 12/03/2021 Routed to PCP: Patient not taking xarelto due to cost Please sign pended BMP order PCP 11/27/2021 Video Ortho 12/04/2021 TRANSITIONS OF CARE CRITICAL ISSUES: BORGES MEDICATION CHANGES: Patient started on DVT prophylaxis with Xarelto, pain control with Tylenol and oxycodone per orthopedics team. These are all short- term medications related to postoperative state START taking these medications: acetaminophen (TYLENOL) 1,000 mg Take 1,000 mg by mouth every 8 hours as needed for pain. ascorbic acid (vitamin C) (VITAMIN C) 500 mg Take 500 mg by mouth twice daily with meals. rivaroxaban (XARELTO) 10 mg Not taking due to cost Take 10 mg by mouth once daily. docusate sodium (COLACE) 100 mg Take 100 mg by mouth twice daily as needed for constipation. polyethylene glycol 3350 (MIRALAX, GLYCOLAX) 17 g Take 17 g by mouth once daily as needed for constipation. oxyCODONE IR (ROXICODONE) 5-10 mg Take 5-10 mg by mouth every 6 hours as needed for pain. sodium chloride 1 g Take 1 g by mouth twice daily. LAB MONITORING NEEDED: Test BMP When 2 weeks Has not had bowel movement since discharge Instructed on potential side effect of constipation with narcotics Encourage to take Colace and Miralax prn Pain 0/10 at rest, increases to 8/10 with activity You may remove your dressing on POD #7 (7 days after surgery). Instructed on s/sx of incision infection. Advised to notify PCP for recurring, new/worsening symptoms. Verbalized understanding. [facility] Has not started services yet SUMMARY: Pt discharged from [facility] on 11/19/21 Admitted for: closed right hip fracture, hyponatremia Contact made with patient: Yes Hi my name is Homa Douglas RN and I am calling from the [facility] on behalf of your PCP, Christine Morgan APRN.CD REACTOR OPERATOR I understand you were recently in the hospital so I am calling to check in with you to ensure you are feeling well now that you're home. May I ask you a few questions related to your hospital stay and well-being? Yes Contact with patient post discharge, spoke to patient. Patient identified by name and . Do you feel your health is BETTER, WORSE, or the SAME since leaving the hospital? Better ACTION TAKEN: Patient indicated symptoms are better or same, no action required. Continue outreach. MEDICATIONS: Many patients have questions or concerns about their medications once they are home. Do you have any questions about taking your medications or which medication you should be on? No Do you need any medication refills at this time, including any of the medications you might take only when needed? No ACTION TAKEN: No action required For RNs or Pharmacy completing outreach ONLY, was a medication review completed? Yes SOCIAL: We would like to make sure you have what you need so that your basics needs are met - including your personal safety, food, housing and medications. Would you like to speak with a social work team guide to help give you support for any of these needs? No It can be normal to feel anxious or down during a time like this. Would you like to talk to a mental health professional about how you have been feeling? No ACTION TAKEN: No action taken DISCHARGE INTRUCTIONS: Your discharge instructions / After Visit Summary (AVS) are important in guiding you through the recovery process. Do you have any questions related to your discharge instructions? No Do you have all the necessary equipment and supplies at home? Yes ACTION TAKEN: No action required I would like to help you schedule a hospital follow-up virtual or telephone visit with your PCP. This is a great way for you to connect with your provider to ensure you have safely transitioned home.If you are agreeable, I will send your request to a induction coordination engineer who will contact and assist you with that appointment. This will give you an opportunity to ask any questions or address any concerns youmay have with your PCP. Inform the patient that if they have any questions or concerns prior to that appointment, to call their PCP's office right away. ACTION TAKEN: No action required, patient already has an appointment scheduled. Your doctor would like us to remind you of the recommendations regarding the coronavirus (Covid19) outbreak: Avoid public places as much as possible. Avoid close contact (within 6 feet) with others you don t live with, especially if they are sick. Stay home if you are sick. Wash your hands regularly for at least 20 seconds with soap and water. Wear a cloth mask in public places to help reduce community spread. Do not go to your Doctor s office unless instructed to do so. For any non- emergency symptoms, call your Doctor s office to get instructions on how to manage (we might recommend a telephone or virtualvisit). For emergency symptoms, proceed to Emergency Department as usual but inform them of cough and fever symptoms NILE if present (or call on the way if possible). Pamela LANDAVERDE., veneer matcher Funeral Planning Counselor [facility] [phone] * Homa Douglas RN - 11/20/2021 11:04 AM EDT TRANSITIONAL CARE MANAGEMENT (TCM) COMMUNITY MONITORING PROGRAM Provider Action/FYI: Patient is TCM eligible through 12/03/2021 Attempted outreach to patient for hospital discharge initial outreach. No answer, left a voicemail to return my call at [phone]. Will attempt to outreach to patient again later today or tomorrrow if no return call from patient. SUMMARY: Pt discharged from [facility] on 11/19/21 Admitted for: closed right hip fracture, hyponatremia Contact made with patient: No - next outreach attempt will be on next day Outreach ended Pamela SANCHEZ, veneer matcher Funeral Planning Counselor [facility] [phone] * Homa Douglas RN - 11/20/2021 11:02 AM EDT TCM Home Visit Referral Source of Stratification: [facility] Admission Status: Discharged Readmission Risk Score: 25 ISAIAS Score: 7 Program referral criteria met: Does not meet referral criteria Patient does not qualify for High Risk TCM Home Visit program due to: Does not meet referral criteria Patient does not quality for High Risk TCM Home Visit Program due to: Does not meet referral criteria Preferred contact number: na Is patient staying somewhere other than the listed home address: No Dialysis Patient: No documented in this encounterK[facility]09-02-2022 Miscellaneous Notes* Telephone Encounter - Uzma Boyer PT - 11/22/2021 12:[address] Rosalia Campos. PT SOC was completed 11/21/21. Pt doing well overall with anticipated PT POC 2w1; 3w1; 2w1. Two items that need follow-up were identified: Pt's dressing removal is currently scheduled for POD 7 - which is Thursday. Can we remove dressing onPOD 8 (Thursday?) Pt is not taking xarelto due to cost. If you would pt to take alternate anti- coagulant regimen - please contact pt directly as I cannot take medication orders. Thank you for allowing us to participate in the care of you patient. Please don't hesitate to reachout to me directly with any questions, concerns, or further recommendations. Uzma Stone, PT [phone] documented in this encounterK[facility]09-01-2022 Miscellaneous Notes* HH PT SOC/PATRICIA/FOLLOW UP/OTHER - Uzma Boyer PT - 11/21/2021 12:57 PM EDT SITUATION: spouse present during today's visit. patient reports she is very anxious about being at home following surgery as her is unable to physically assist much and feels she came home too soon. Pt denies falls since DC home and does report satisfaction with pain control. I reviewed and explained Patient Consent/Acknowledgement Form and reviewed the admission booklet. The patient understands theinformation presented and agreed to home care services. An electronic signed informed consent obtained. I reviewed all medications with patient/caregiver and there is a medication sheet(s) in home. Patient/caregiver stated understanding regarding recommendations to comply and communicate medicationconcerns and/or changes with MD. I instructed to call 911 as per guidance from [facility] Booklet, Fall, or a Change in your condition and also instructed patient on agency's 24 hours log pond worker informatics manager service that can be used in nonemergency situations. BACKGROUND: Diagnoses (reason for Home Care): R closed displaced femoral neck fx with closed reduction and nailing 11/17/[address] Grossman Past Medical History: DM type 2; Major depressive disorder, Stage 3 CKD; HLD; hypothyroidism, IBS, HTN, MARIBEL, cognitive decline, other symbolic dysfunction; GERD, OA of foot, joint pain - multiple sites, asthma, s/p gastric bypass Weight Bearing or Surgical Precautions: WBAT RLE ASSESSMENT: [facility]. Reviewed and explainedhomecare services. Plan of care, goals, and visit frequency developed, reviewed, and agreed upon with patient and/or caregiver. Pt initially anxious about being at home - citing spouse's limited ability to assist and multiple mentions of her failing cognition. Pt reports she is being tested for early onset demential/Alzheimers and is concerned about managing. Following visit after adjustment of pt's walker to proper height and cueing/assist for mobility and initiation of HEP, pt reports she is feeling mroe at ease and confident. Pt mobilizing with cga/min A overall with use of FWW. Spouse is willing to assist but does require cues to initiate. Patient Goal: To regain independence Patient will benefit from continued physical therapy to address the following deficits: strength, balance, gait, transfers, stair negotiation and bed mobility. Current Discharge Plan: outpatient rehab. Anticipate discharge by 12/07/21. RECOMMENDATION: Next visit to focus on review of supine HEP, progress HEP to include seated as tolerated and progress gait and transfers wtih focus on reducing compensatory movements/postures Agreeable to PT; declining OT. See intervention summary for intervention/education details. Following this visit, pt's POC will be followed by Saniya Martínez PT documented in this encounterK[facility]08-31-2022 History of Present illness Narrative* Ping Simmsover, [facility] - 11/20/2021 10:49 AM EDT TRANSITION CARE MANAGEMENT (TCM) PHARMACY CONTACT Provider Action/FYI: Unable to reach patient after unsuccessful outreach attempt. Left voicemail for patient including call back number to TCM pharmacist. TCM medication reconciliation incomplete at this time Noted per discharge summary plans for Test BMP When 2 weeks, however labs were not ordered at discharge. -- Routing to PCP to review and consider ordering labs. NOV 11/27 Patient unable to be reached after unsuccessful outreach attempt(s). No further attempts to contactpatient will be made. SUMMARY: -Pt discharged from [facility] on 11/19/21. -Follow up appointment on 11/27. -Medication review not done -Admitted for Fall with right hip fracture History of Present Illness: The following content has been copied and pasted from patient's discharge summary. If discharge summary unavailable, After Visit Summary or last pertinent inpatient notes are copied and pasted. TRANSITIONS OF CARE CRITICAL ISSUES: BORGES MEDICATION CHANGES: Patient started on DVT prophylaxis with Xarelto, pain control with Tylenol and oxycodone per orthopedics team. These are all short- term medications related to postoperative state LAB MONITORING NEEDED: Test BMP When 2 weeks IMAGING FOLLOW-UP: Not applicable LABS AND PROCEDURES PENDING AT DISCHARGE: FOLLOW UP: The appointment has been scheduled.with orthopedics team REASON FOR HOSPITALIZATION: Fall with right hip fracture PRINCIPAL DIAGNOSIS: Right hip fracture s/p reduction with operative fixation SECONDARY DIAGNOSIS: Principal Problem: Closed displaced fracture of right femoral neck ([facility]) POA: Yes Active Problems: Type 2 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 with stage 3 chronic kidney disease, without long-term current use of insulin ([facility]) POA: Yes Hyperlipidemia POA: Yes Hypothyroid POA: Yes Essential hypertension POA: Yes MARIBEL (obstructive sleep apnea) POA: Yes GERD without esophagitis POA: Yes Stage 3 chronic kidney disease ([facility]) POA: Yes Hyponatremia POA: Yes Hip fracture requiring operative repair, right, closed, initial encounter ([facility]) POA: Yes Resolved Problems: * No resolved hospital problems. * HOSPITAL COURSE: Patient admitted to the hospital with right hip fracture. She underwent surgery with orthopedics team with reduction and operative fixation. 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 She has been started on sodium chloride tablets at a low-dose. She will plan for discharge home with home health with pain control and DVT prophylaxis as per orthopedics team. Outpatient follow-up is also being set up by them. She is recommended outpatient follow-up with BMP in 2 weeks with PCP to monitor sodium levels. Medication Reconciliation: Legend: Stopped, New, Changed, Added to list Medication List Medication Directions Comments Action/Plan acetaminophen (TYLENOL) 500 mg tablet Take 2 tablets by mouth every 8 hours as needed for pain. E-rx to [facility] Discontinued: 11/17/2021 3:31 AM Hx med added 201911/17/21 0331 Discontinue for Admission Beck Soto APRN.JOSEFINA ascorbic acid, vitamin C, (VITAMIN C) 500 mg tablet Take 1 tablet by mouth twice daily with meals for 25 doses. E-rx to [facility] atorvastatin (LIPITOR) 20 mg tablet Take 1 tablet by mouth daily at bedtime. For cholesterol. buPROPion XL (WELLBUTRIN XL) 300 mg 24 hr tablet Take 1 tablet by mouth once daily. calcium citrate/vitamin D3 (CALCIUM CITRATE + D ORAL) Take 1 tablet by mouth twice daily. Discontinued: 11/19/2021 12:15 PM Stop per AVS dicyclomine (BENTYL) 20 mg tablet Take 1 tablet by mouth before meals and at bedtime. Patient taking differently: Take 20 mg by mouth twice daily before meals (0600/1600). Per AVS: You are taking this medication differently than prescribed. If you have questions about this medication, ask the prescribing provider: Christine Morgan APRN.CNP. docusate sodium (COLACE) 100 mg capsule Take 1 capsule by mouth twice daily as needed for constipation. E-rx to [facility] dulaglutide (TRULICITY) 0.75 mg/0.5 mL pen injector Inject 0.75 mg subcutaneously one time a week. Inject dose once per week. Discard Pen After esomeprazole (NEXIUM) 40 mg capsule TAKE ONE CAPSULE BY MOUTH twice daily. FLUoxetine (PROZAC) 20 mg capsule Take 3 capsules by mouth once daily. glimepiride (AMARYL) 2 mg tablet Take 1 tablet by mouth daily with breakfast. Patient taking differently: Take 4 mg by mouth daily with breakfast. Per AVS: You are taking this medication differently than prescribed. If you have questions about this medication, ask the prescribing provider: Christine Morgan APRN.CNP. levothyroxine (SYNTHROID) 100 mcg tablet Take 1 tablet by mouth once daily. lisinopril (ZESTRIL, PRINIVIL) 10 mg tablet Take 1 tablet by mouth once daily. MULTI-VITAMIN ORAL Take 1 tablet by mouth once daily. Takes bariatric multivitamin daily Discontinued: 11/19/2021 12:15 PM Stop per AVS oxyCODONE IR (ROXICODONE) 5 mg immediate release tablet Take 1-2 tablets by mouth every 6 hours as needed for pain. E-rx to [facility] polyethylene glycol 3350 (MIRALAX) 17 gram/dose powder Take 17 g by mouth once daily as needed for constipation for up to 10 days. Dissolve dose in 4 - 8 ounces of liquid and take as directed. OTC rivaroxaban (XARELTO) 10 mg tablet Take 1 tablet by mouth once daily. E-rx to [facility] #[id number] Per discharge summary: Patient started on DVT prophylaxis with Xarelto Per AVS: HOMEGOING BLOOD CLOT (DVT) PREVENTION: Xarelto as prescribed You are not allowed to take Ibuprofen, Advil, Aleve (any NSAIDs) while on a blood thinner sodium chloride 1 gram tab Take 1 tablet by mouth twice daily. E-rx to [facility] Per discharge summary: She is recommended outpatient follow-up with BMP in 2 weeks with PCP to monitor sodium levels. traZODone (DESYREL) 100 mg tablet Take 2 tablets by mouth daily at bedtime. Discontinued: 11/17/2021 3:31 AM Discontinued: 11/17/2021 3:31 AM Preferred pharmacy: [id number] [place] [address] - [address] [facility] - [phone] [id number] [address] [facility] [id number] Estimated Creatinine Clearance: 49.8 mL/min (A) (based on SCr of 1 mg/dL (H)). Estimated Glomerular Filtration Rate (mL/min/1.73m ) Date Value 11/19/2021 61 eGFR- (no units) Date Value 02/27/2021 60 ALLERGIES Allergen Reactions Vicodin [Hydrocodon* Itching Pt not sure if she has an allergy but states she wants it documented. PAST MEDICAL HISTORY Diagnosis Date Allergic rhinitis Arthritis [facility], knee Asthma CKD (chronic kidney disease) 11/01/2018 Class 3 severe obesity with serious comorbidity and body mass index (BMI) of 40.0 to 44.9 in adult ([facility]) 08/19/[address] Salazar Environmental allergies GERD (gastroesophageal reflux disease) HTN (hypertension) Hypothyroidism Mixed hyperlipidemia NIDDM (non-insulin dependent 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) MARIBEL on CPAP CPAP 9Cm Renal lesion 01/15/15 Suggest renal US every 1-2 years per PCP or nephro. Snoring Type 2 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 with hyperglycemia, with long-term current use of insulin ([facility]) 02/27/2001 Social History Tobacco Use Smoking status: Former Packs/day: 1.50 Years: 22.00 Pack years: 33.00 Types: Cigarettes Quit date: 1989 Years since quittin.6 Smokeless tobacco: Never Substance Use Topics Alcohol use: Yes Comment: few times a year. mixed drinls/marcelino. 3 in sitting. Drug use: No Comment: denies tx for drug/alcohol abuse in the past. Immunization History Administered Date(s) Administered COVID-19 vaccine, age 12+ yr (PFIZER-BIONTECH - MENDIOLA TOP) 08/08/2021 COVID-19 vaccine, age 12+ yr (PFIZER-BIONTECH - PURPLE TOP) 06/01/2020 06/22/2020 03/10/2021 Influenza 12/25/2015 Influenza Seasonal - High Dose - Age 65+ 01/20/2017 12/15/2018 Influenza Seasonal Inj Age 3+ 01/07/2014 01/22/2015 Influenza Seasonal Inj Quad Age 6 Mo - 64 Yrs 12/25/2015 Influenza Vaccine, Split-Non Spec 12/17/2011 01/07/2013 01/16/2018 Influenza Vaccine, Whole 12/26/2010 Novel Influenza H1N1, preservative free 03/06/2009 Pneumococcal-13 Vac Conjugate 06/05/2016 Pneumovax 12/21/2010 01/27/2014 01/27/2019 Tdap (Age 7+) 02/18/2018 Zostavax 03/25/2014 Zoster Recombinant (Shingrix) 11/25/2018 influenza, high-dose, quadrivalent vaccine (FLUZONE HIGH DOSE QUADRIVALENT) 02/08/2020 01/14/2021 Additional follow up: Appointments for Next 60 Days Date Time Provider Location Dept Phone 11/21/2021 4:00 AM HOME CARE, PT [facility] [phone] 11/22/2021 6:30 AM HOME CARE, OT [facility] [phone] 11/27/2021 1:00 PM [facility]ST[facility] MORGAN [facility] [phone] 12/04/2021 10:00 AM [facility] 12/04/2021 10:30 AM KAYLEN LINDSEY [facility] [phone] Interventions Made: None Pharmacist Recommendations Made Lab request/Therapeutic drug monitoring Care Coordination: None at this time Time spent on patient: 15-30 minutes Ping Haney RPh November 20, 2021 10:50 AM documented in this encounterK[facility]08-29-2022 Miscellaneous Notes* Telephone Encounter - FELISHA Cano - 11/18/2021 2:54 PM EDT Lindsey from Dr. Lindsey's called to say the doctor will follow patient for [facility]. Mary 11/18/2021 1:05 PM FELISHA Cano. 11/18/2021 2:55 PM * Telephone Encounter - FELISHA Cano - 11/18/2021 11:37 AM EDT Please advise if you are agreeable to signing and following for [facility] services? Our Clinicians will be sending the Plan of Care to you for review and approval. They will reach out for any appropriate orders required to provide home care services for the patient. We are not able to initiate HHC services without a following provider. Home care clinicians may also obtain orders from [facility] Providers Thank you and we would be happy to answer any questions In case you have any questions or concerns in the meantime, our # is [phone], option 1 Thank you for your time and have a great day. FELISHA Cano Date and Time: 11:38 AM 11/18/2021 documented in this encounterKet[facility]08-29-2022 Miscellaneous Notes* Telephone Encounter - Sonja Parr RN - 11/18/2021 12:54 PM EDT Arsalan calling from [facility] They area asking if Dr Cortes would follow for [facility] orders [phone] press option one Gave VO that Dr Cortes would follow documented in this encounterK[facility]08-29-2022 Miscellaneous Notes* Telephone Encounter - FELISHA Cano - 11/18/2021 11:59 AM EDT Welcome Home Call: a. Date and Time: 11:59 AM 11/18/2021 b. Contact name/relationship:Patient c. Have you been active with any Home Care company in the last 60 days(such as help with bathing, filling medications, checking your blood pressure) ? No. d. [facility] will be providing your care, are you agreeable to starting these services? Yes (yes or no) e. Do you have any upcoming appointments in the next few days, or restrictions to your schedule? No We would come to see you in 24-48* from your discharge today; Are you agreeable to a visit in that time frame? yes (Yes/ No (if no, when would you like to be seen?)) f. Caregiver: Patient is able to manage care independently Please keep our your medications both over the counter and prescribed out for the home care to review, your hospital discharge instructions and write down any questions you might have. In order to maintain a safe environment for our caregivers, [facility] requires anyanimals or weapons present in the home be located in a secured location. Our clinicians will call you the night before or the morning of the appointment. Their # may come up restricted but they'll leave a VM for you. In case you have any questions or concerns in the meantime, our # is [phone], option 1 Thank you for your time and have a great day. FELISHA Cano documented in this encounterKettering [facility]08-28-2022 History of Present illness Narrative* RT Gege(R) - 11/17/2021 5:45 AM EDT Radiology Service Progress Note PATIENT NAME: Mary Jane De Paz DATE OF SERVICE: November 17, 2021 TIME: 5:45 AM PATIENT IDENTITY VERIFICATION COMPLETED USING TWO (2) IDENTIFIERS: Name and Date of confirmedby patient verbally. FALL SCREENING: Has the patient had 2 falls in the last year or 1 fall with injury or currently using an Ambulatory Assistive Device (Walker, Cane, Wheelchair, Crutches, etc.)? Inpatient: Screened onfloor PATIENT GENDER DATA: Female. status: : No status: NO. PATIENT RELEVANT IMPLANT DATA REVIEWED: Not Applicable RADIOLOGY DEPARTMENT: General X-ray: Exam(s) Completed: Chest X-Ray Lower Extremity X-Ray(s): Knee, AP / LAT Right PERIPHERAL IV DATA: Not applicable SIGNED BY: RT Gege(R) November 17, 2021 5:45 AM documented in this encounterKettering [facility]08-03-2022 History of Present illness Narrative* Ham Wu MD - 10/23/2021 2:01 PM EDT Patient presents with: Neck Pain: headache x 1 day HPI: Head and neck pain: Duration: Insidious onset yesterday afternoon Location: neck Character: sharp Radiation: Left shoulder sometimes Aggravating: Unable to rotate or flex/extend neck, swallowing hurts her neck Relieving: Pain relievers: Percocet x 2 did not help Associated: Had sweats last night, occipital headache radiating over the top of the head, transientpinky numbness recently but cannot recall details, baseline diarrhea yesterday Pertinent negatives: Denies rash, fever, body aches, sore throat, nausea, vomiting, injury Had 4th dose of Thinkature COVID-19 vaccine in July. PAST MEDICAL HISTORY Diagnosis Date Allergic rhinitis [facility]ritis [facility], knee Asthma CKD (chronic kidney disease) 11/01/2018 Class 3 severe obesity with serious comorbidity and body mass index (BMI) of 40.0 to 44.9 in adult ([facility]) 08/19/[address] Salazar Environmental allergies GERD (gastroesophageal reflux disease) HTN (hypertension) Hypothyroidism Mixed hyperlipidemia NIDDM (non-insulin dependent 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) MARIBEL on CPAP CPAP 9Cm Renal lesion 01/15/15 Suggest renal US every 1-2 years per PCP or nephro. Snoring Type 2 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 with hyperglycemia, with long-term current use of insulin ([facility]) 02/27/2001 MEDICATIONS: esomeprazole (NEXIUM) 40 mg capsule TAKE ONE CAPSULE BY MOUTH twice daily. levothyroxine (SYNTHROID) 100 mcg tablet Take 1 tablet by mouth once daily. buPROPion XL (WELLBUTRIN XL) 300 mg 24 hr tablet Take 1 tablet by mouth once daily. traZODone (DESYREL) 100 mg tablet Take 2 tablets by mouth daily at bedtime. glimepiride (AMARYL) 2 mg tablet Take 1 tablet by mouth daily with breakfast. lisinopril (ZESTRIL, PRINIVIL) 10 mg tablet Take 1 tablet by mouth once daily. atorvastatin (LIPITOR) 20 mg tablet Take 1 tablet by mouth daily at bedtime. For cholesterol. dicyclomine (BENTYL) 20 mg tablet Take 1 tablet by mouth before meals and at bedtime. ondansetron (ZOFRAN) 8 mg tablet Take 1 tablet by mouth every 8 hours as needed for nausea/vomiting. dulaglutide (TRULICITY) 0.75 mg/0.5 mL pen injector Inject 0.75 mg subcutaneously one time a week. Inject dose once per week. Discard Pen After FLUoxetine (PROZAC) 20 mg capsule Take 3 capsules by mouth once daily. Ascorbic Acid (VITAMIN C) chew Take 1,000 mg by mouth once daily. Vit B Cmplx 3-FA-Vit C-Biotin tablet Take 1 tablet by mouth once daily. calcium citrate/vitamin D3 (CALCIUM CITRATE + D ORAL) Take 1 tablet by mouth twice daily. MULTI-VITAMIN ORAL Take 1 tablet by mouth once daily. Takes bariatric multivitamin daily cyclobenzaprine (FLEXERIL) 10 mg tablet Take 1 tablet by mouth twice daily as needed for muscle spasm. zoster vaccine, recombinant, adjuvanted, (SHINGRIX, PF,) 50 mcg/0.5 mL injection Inject 0.5 mL intramuscularly now and repeat 2nd dose in 2-6 months ALLERGIES: ALLERGIES Allergen Reactions Vicodin [Hydrocodon* Itching Pt not sure if she has an allergy but states she wants it documented. VITALS: BP 168/92 Pulse 82 Temp 36.7 C (98 F) Resp 18 Wt 73.9 kg (163 lb) SpO2 96% BMI 29.81 kg/m PHYSICAL EXAM: GEN: pleasant, alert, sitting with head held in neutral position HEENT: PERRL, EOMI, MMM NECK: no lymphadenopathy, no thyromegaly. Bilateral paraspinal spasm. No midline tenderness. Limitsmovement in all directions because of pain. HEART: regular rate, regular rhythm, no murmurs LUNGS: clear to auscultation, no wheezes or crackles, no increased WOB EXT: no clubbing, no cyanosis, no edema. Normal strength in hand vacuum worker, pincer grasp, and finger abduction. NEURO: Alert and oriented to person, place, and time. CN II-XII intact. Normal strength. Normal gait. No tremor. ASSESSMENT/PLAN: 1. Acute muscle stiffness of neck - ICD9: 723.1, ICD10: M43.6 Mechanical neck pain. Treat with ice, heat, range of motion, and muscle relaxer. - CYCLOBENZAPRINE 10 MG TABLET -discussed drowsiness side effect. Seek emergency evaluation for progressive pain, fever, numbness, weakness, vision change, nausea/vomiting, or rash. Ham Wu MD documented in this encounterK[facility]07-28-2022 History of Present illness Narrative* RT Jillian(R) - 10/17/2021 4:10 PM EDT Radiology Service Progress Note PATIENT NAME: Mary Jane De Paz DATE OF SERVICE: October 17, 2021 TIME: 4:18 PM PATIENT IDENTITY VERIFICATION COMPLETED USING TWO (2) IDENTIFIERS: Name and Date of confirmedby patient verbally. FALL SCREENING: Has the patient had 2 falls in the last year or 1 fall with injury or currently using an Ambulatory Assistive Device (Walker, Cane, Wheelchair, Crutches, etc.)? No PATIENT GENDER DATA: Female. status: : No status: NO. PATIENT RELEVANT IMPLANT DATA REVIEWED: Yes RADIOLOGY DEPARTMENT: General X-ray: Exam(s) Completed: Lower Extremity X- Ray(s): Knee, AP / Lat / Tunne / Merchant Right and Wt. Bearing PERIPHERAL IV DATA: Not applicable SIGNED BY: RT Jillian(R) October 17, 2021 4:18 PM documented in this encounterK[facility]tering [facility]07-28-2022 History of Present illness Narrative* Delfin Kerr MD - 10/17/2021 3:18 PM EDT Patient presents with: Right Hand - Established Patient, Pain Left Hand - Established Patient, Pain Delfin Kerr MD Department of Orthopaedics Orthopaedics [address] [facility] [address] Dept: [phone] Dept October 17, 2021 Consultation requested by Christine Morgan CNP for an opinion regarding bilateral hand and knee pain. My final recommendations will be communicated back to the requesting physician by way of shared Medical record or letter to requesting physician via US mail. CHIEF COMPLAINT: Established Patient and Pain of the Right Hand and Established Patient and Pain ofthe Left Hand HPI Patient has a long history of problems with both hands with multiple surgeries on multiple joints including replacements. She been having more achy problems and pain at some of the fingertip joints. Furthermore, she is status post bilateral knee replacements with a partial on the 1 side. She has not had these evaluated in quite some time. AMB ROOMING INTAKE FLOWSHEET DATA Risk Screening Do you have concerns about personal safety or safety in the home?: No Pt states bilateral hand pain worse with weather changes. ASSESSMENT: M25.561, G89.29 Chronic pain of right knee (primary encounter diagnosis) M19.241, M19.242 Other secondary osteoarthritis of both hands M79.641 Pain of right hand M79.642 Pain of left hand PLAN: Stable hands unfortunately with severe arthritis. Any further surgeries would be at the patient's discretion. We will get some plain films of the knees today to make sure things look well. FOLLOW UP INSTRUCTIONS: As needed Ms. Mary Jane De Paz was advised as to contrast therapies and/or to take analgesics/anti-inflammatories as needed and all contraindications were reviewed. OBJECTIVE: Ms. Mary Jane De Paz is a pleasant 71 year old in no apparent distress. Gen:There were no vitals taken for this visit. nl development, non obese, no deformities ENT: Normocephalic, normal hearing, moist mucosa CV: Pulses:Radial= 2+ and symmetric, capillary refill < 2 secs, no peripheral edema/varicosities Skin: no rash, bruising or lesions. Good turgor. Psych: cooperative and appropriate, alert and oriented x 3, good mood and affect. Musculoskeletal: Prior surgical incisions over bilateral index and middle metacarpals as well as the left index DIP joint which is fused. Severe arthritic changes throughout multiple remaining joints. IMAGING: IMPRESSION: No acute fracture. Degenerative disease of bilateral hands. Senior Laboratory Technician: SEFERINO Transcribe Date/Time: Oct 18 2021 4:04P Dictated by : SAIMA BARROSO MD This examination was interpreted and the report reviewed and electronically signed by: SAIMA BARROSO MD on Oct 18 2021 4:07PM EST Results-Findings * * *Final Report* * * DATE OF EXAM: Oct 17 2021 3:09PM [id number] - XR HAND 3V PA/LAT/OBL ANN / PROCEDURE REASON: multiple diagnoses * * * * Physician Interpretation * * * * EXAMINATION: XR HAND 3V PA/LAT/OBL ANN CLINICAL HISTORY: Bilateral hand pain Technique: XR HAND 3V PA/LAT/OBL ANN -- BILATERAL with 3 views on 3 images Comparison: None RESULT: There are postoperative changes from bilateral second and third metacarpophalangeal arthroplasties. There is a screw transfixing the DIP joint of the left second digit. No acute fracture or destructive osseous lesion. Narrowing of the left first carpometacarpal joint. Narrowing of bilateral first metacarpophalangeal joints. Narrowing of multiple interphalangeal joints bilaterally with marginal osteophytes. No periarticular erosions. Supporting Subjective Information Below: Past Medical History: PAST MEDICAL HISTORY Diagnosis Date Allergic rhinitis Arthritis [facility], knee Asthma CKD (chronic kidney disease) 11/01/2018 Class 3 severe obesity with serious comorbidity and body mass index (BMI) of 40.0 to 44.9 in adult ([facility]) 08/19/[address] Salazar Environmental allergies GERD (gastroesophageal reflux disease) HTN (hypertension) Hypothyroidism Mixed hyperlipidemia NIDDM (non-insulin dependent 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) MARIBEL on CPAP CPAP 9Cm Renal lesion 01/15/15 Suggest renal US every 1-2 years per PCP or nephro. Snoring Type 2 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 with hyperglycemia, with long-term current use of insulin ([facility]) 02/27/2001 Past Surgical History: PAST SURGICAL HISTORY Procedure Laterality Date COLONOSCOPY 11/05/2016 Tammi- divertiuclosis, internal hemorrhoids, repeat in 5 years COSMETIC ASSESSMENT EGD 11/05/2016 Tammi- gastritis EGD 09/08/2018 /Gastritis EGD 04/02/2020 EYE SURGERY HX FRACTURE SURGERY GASTRIC BYPASS HX 12/13/2018 HYSTERECTOMY JOINT REPLACEMENT HX OOPHORECTOMY PARTIAL OR TOTAL PAST SURGICAL HISTORY OF 2009 hemmroidectomy/sphincterectomy - Dr Nichole PAST SURGICAL HISTORY OF 2008 total left knee replacement PAST SURGICAL HISTORY OF 2003 partial right knee replacement PAST SURGICAL HISTORY OF 1990 total hysterectomy PAST SURGICAL HISTORY OF 2010 lDr Mansoor - [place] elbow fracture - traumatic. radial head replacement PAST SURGICAL HISTORY OF Bilateral 2016 hand surgery PAST SURGICAL HISTORY OF Left RELEASE CONTRACTURE DEQUERVAINS SKIN BIOPSY HX TUBAL LIGATION HX VAGINAL HYSTERECTOMY Family History: FAMILY HISTORY Problem Relation Age of Onset other (polio) Mother Diabetes Father other (Squamous cell ca) Father other (renal cell ca) Father 1999 other (htn) Father other (renal cell ca) Brother 2010 other (Thyroid Cancer) Sister other (thyroid disease) Sister ca Obesity Paternal Grandmother Obesity Daughter Social History: Social History Tobacco Use Smoking status: Former Packs/day: 1.50 Years: 22.00 Pack years: 33.00 Types: Cigarettes Quit date: 1989 Years since quittin.6 Smokeless tobacco: Never Substance Use Topics Alcohol use: Yes Comment: few times a year. mixed drinls/marcelino. 3 in sitting. Drug use: No Comment: denies tx for drug/alcohol abuse in the past. Medications: Current Outpatient Medications Medication Sig esomeprazole (NEXIUM) 40 mg capsule TAKE ONE CAPSULE BY MOUTH twice daily. levothyroxine (SYNTHROID) 100 mcg tablet Take 1 tablet by mouth once daily. buPROPion XL (WELLBUTRIN XL) 300 mg 24 hr tablet Take 1 tablet by mouth once daily. traZODone (DESYREL) 100 mg tablet Take 2 tablets by mouth daily at bedtime. glimepiride (AMARYL) 2 mg tablet Take 1 tablet by mouth daily with breakfast. lisinopril (ZESTRIL, PRINIVIL) 10 mg tablet Take 1 tablet by mouth once daily. atorvastatin (LIPITOR) 20 mg tablet Take 1 tablet by mouth daily at bedtime. For cholesterol. dicyclomine (BENTYL) 20 mg tablet Take 1 tablet by mouth before meals and at bedtime. ondansetron (ZOFRAN) 8 mg tablet Take 1 tablet by mouth every 8 hours as needed for nausea/vomiting. dulaglutide (TRULICITY) 0.75 mg/0.5 mL pen injector Inject 0.75 mg subcutaneously one time a week. Inject dose once per week. Discard Pen After Ascorbic Acid (VITAMIN C) chew Take 1,000 mg by mouth once daily. Vit B Cmplx 3-FA-Vit C-Biotin tablet Take 1 tablet by mouth once daily. calcium citrate/vitamin D3 (CALCIUM CITRATE + D ORAL) Take 1 tablet by mouth twice daily. MULTI-VITAMIN ORAL Take 1 tablet by mouth once daily. Takes bariatric multivitamin daily cyclobenzaprine (FLEXERIL) 10 mg tablet Take 1 tablet by mouth three times daily as needed for muscle spasm. FLUoxetine (PROZAC) 20 mg capsule Take 3 capsules by mouth once daily. zoster vaccine, recombinant, adjuvanted, (SHINGRIX, PF,) 50 mcg/0.5 mL injection Inject 0.5 mL intramuscularly now and repeat 2nd dose in 2-6 months No current facility-administered medications for this visit. Allergies: Vicodin [Hydrocodone-Acetaminophen] ROS: General (negative for fatigue, malaise, weight loss/gain) HEENT (negative for headache, earache, recent vision changes, sinus pain, sore throat) Respiratory (no recent shortness of breath, hemoptysis) CV (negative for chest tightness, palpitations) Musculoskeletal (see HPI) Psych (no depression, anxiety) REFERRING PHYSICIAN: Ms. Mary Jane De Paz was referred to me for consultation by the followingphysician. This consultation note will be sent to the following physician by either mail or electronic medical record. Christine Morgan [address] [facility] [address] Delfin Kerr MD documented in this encounterK[facility]07-22-2022 Instructions* Patient Instructions* Christine Morgan APRN.CNP - 10/11/2021 10:48 AM EDT 1. Keep the area clean and dry. 2. Try the OTC clotrimazole cream (twice daily for a week longer than it takes for the rash to go away). 3. Schedule with plastic surgery. 4. Let me know if you need anything. documented in this encounterKettering [facility]07-22-2022 History of Present illness Narrative* Christine Morgan APRN.CNP - 10/11/2021 10:35 AM EDT This is a 71 year old female who presents today with: Patient presents with: Established Patient: loose skin with yeast infection possible x 1 year HISTORY OF PRESENT ILLNESS: Mary Jane De Paz is a 71 year old female. Patient presents with: Established Patient: loose skin with yeast infection possible x 1 year Pt presents today with complaint of loose skin. She has a hx of bariatric surgery and has excess skin. Notices under the abdomen. Notices that she will get chafing, pain, and odor. Hx of yeast. She is interested in treatment for this. Tries to keep the area clean and dry. Gets embarrassed by the odor. Becomes painful. PAST MEDICAL HISTORY: PAST MEDICAL HISTORY Diagnosis Date Allergic rhinitis [facility]ritis [facility], knee Asthma CKD (chronic kidney disease) 11/01/2018 Class 3 severe obesity with serious comorbidity and body mass index (BMI) of 40.0 to 44.9 in adult ([facility]) 08/19/[address] Salazar Environmental allergies GERD (gastroesophageal reflux disease) HTN (hypertension) Hypothyroidism Mixed hyperlipidemia NIDDM (non-insulin dependent 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) MARIBEL on CPAP CPAP 9Cm Renal lesion 01/15/15 Suggest renal US every 1-2 years per PCP or nephro. Snoring Type 2 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 with hyperglycemia, with long-term current use of insulin ([facility]) 02/27/2001 PAST SURGICAL HISTORY Procedure Laterality Date COLONOSCOPY 11/05/2016 Tammi- divertiuclosis, internal hemorrhoids, repeat in 5 years COSMETIC ASSESSMENT EGD 11/05/2016 Tammi- gastritis EGD 09/08/2018 /Gastritis EGD 04/02/2020 EYE SURGERY HX FRACTURE SURGERY GASTRIC BYPASS HX 12/13/2018 HYSTERECTOMY JOINT REPLACEMENT HX OOPHORECTOMY PARTIAL OR TOTAL PAST SURGICAL HISTORY OF 2009 hemmroidectomy/sphincterectomy - Dr Nichole PAST SURGICAL HISTORY OF 2008 total left knee replacement PAST SURGICAL HISTORY OF 2003 partial right knee replacement PAST SURGICAL HISTORY OF 1990 total hysterectomy PAST SURGICAL HISTORY OF 2010 lDr Mansoor - [place] elbow fracture - traumatic. radial head replacement PAST SURGICAL HISTORY OF Bilateral 2016 hand surgery PAST SURGICAL HISTORY OF Left RELEASE CONTRACTURE DEQUERVAINS SKIN BIOPSY HX TUBAL LIGATION HX VAGINAL HYSTERECTOMY ALLERGIES Vicodin [Hydrocodone-Acetaminophen] MEDICATIONS Current Outpatient Medications Medication Sig glimepiride (AMARYL) 2 mg tablet Take 1 tablet by mouth daily with breakfast. lisinopril (ZESTRIL, PRINIVIL) 10 mg tablet Take 1 tablet by mouth once daily. cyclobenzaprine (FLEXERIL) 10 mg tablet Take 1 tablet by mouth twice daily as needed for muscle spasm. atorvastatin (LIPITOR) 20 mg tablet Take 1 tablet by mouth daily at bedtime. For cholesterol. levothyroxine (SYNTHROID) 100 mcg tablet Take 1 tablet by mouth once daily. dicyclomine (BENTYL) 20 mg tablet Take 1 tablet by mouth before meals and at bedtime. buPROPion XL (WELLBUTRIN XL) 300 mg 24 hr tablet Take 1 tablet by mouth once daily. esomeprazole (NEXIUM) 40 mg capsule TAKE ONE CAPSULE BY MOUTH twice daily. traZODone (DESYREL) 100 mg tablet Take 2 tablets by mouth daily at bedtime. oxyCODONE-acetaminophen (PERCOCET) 5-325 mg tablet Take 1 tablet by mouth every 8 hours as needed for pain. ondansetron (ZOFRAN) 8 mg tablet Take 1 tablet by mouth every 8 hours as needed for nausea/vomiting. dulaglutide (TRULICITY) 0.75 mg/0.5 mL pen injector Inject 0.75 mg subcutaneously one time a week. Inject dose once per week. Discard Pen After FLUoxetine (PROZAC) 20 mg capsule Take 3 capsules by mouth once daily. zoster vaccine, recombinant, adjuvanted, (SHINGRIX, PF,) 50 mcg/0.5 mL injection Inject 0.5 mL intramuscularly now and repeat 2nd dose in 2-6 months Ascorbic Acid (VITAMIN C) chew Take 1,000 mg by mouth once daily. Vit B Cmplx 3-FA-Vit C-Biotin tablet Take 1 tablet by mouth once daily. calcium citrate/vitamin D3 (CALCIUM CITRATE + D ORAL) Take 1 tablet by mouth twice daily. MULTI-VITAMIN ORAL Take 1 tablet by mouth once daily. Takes bariatric multivitamin daily No current facility-administered medications for this visit. FAMILY HISTORY Problem Relation Age of Onset other (polio) Mother Diabetes Father other (Squamous cell ca) Father other (renal cell ca) Father 1999 other (htn) Father other (renal cell ca) Brother 2010 other (Thyroid Cancer) Sister other (thyroid disease) Sister ca Obesity Paternal Grandmother Obesity Daughter Social History Tobacco Use Smoking status: Former Smoker Packs/day: 1.50 Years: 22.00 Pack years: 33.00 Types: Cigarettes Quit date: 1989 Years since quittin.5 Smokeless tobacco: Never Used Substance Use Topics Alcohol use: Yes Comment: few times a year. mixed drinls/marcelino. 3 in sitting. Drug use: No Comment: denies tx for drug/alcohol abuse in the past. EXAM: BP 124/68 (BP Site: Left Arm, BP Position: Sitting, BP Cuff Size: Large Adult) Pulse 73 Temp 36.6 C (97.9 F) Resp 12 Ht 157.5 cm (5' 2) Wt 73 kg (161 lb) SpO2 98% BMI 29.45 kg/m General Appearance: Well appearing, alert, in no acute distress, well-hydrated, well nourished.. Skin: Skin color, texture, turgor normal, no suspicious rashes or lesions. Some moisture and redness under the abdominal pannus. Head: Normocephalic, no masses, lesions, tenderness or abnormalities. Eyes: Anicteric sclera. Extraocular movements are intact. . Lungs: Lungs clear to auscultation. No wheezing, rhonchi, rales. Heart: RRR without murmur, gallop, or rubs. No ectopy. Neurologic: Gait normal. ASSESSMENT/PLAN: 1. Intertrigo - ICD9: 695.89, ICD10: L30.4 (primary diagnosis) Discussed keeping the area clean and dry. Discussed using [id number] clotrimazole as needed for yeast. - CONSULT TO PLASTIC SURGERY 2. Generalized postprandial abdominal pain - ICD9: 789.07, ICD10: R10.84 Refill: - ESOMEPRAZOLE MAGNESIUM 40 MG CAPSULE,DELAYED RELEASE 3. Other specified hypothyroidism - ICD9: 244.8, ICD10: E03.8 Refill: - LEVOTHYROXINE 100 MCG TABLET 4. Moderate episode of recurrent major depressive disorder (HCC) - ICD9: 296.32, ICD10: F33.1 Refill: - BUPROPION XL 300 MG 24 HR TAB Discussed treatment plan and patient voices understanding. Patient's questions answered appropriately. Medications and potential side effects were discussed and patient voices understanding. Return to the office as scheduled or as needed for worsening/no improvement. Christine Morgan APRN.JOSEFINA This note was partially generated using [employer] recognition system. Note was reviewed for accuracy. There may be minor misspellings or grammar miscues with [email or web address] voice recognition. documented in this encounterChristopher Ville [id number] Miscellaneous Notes* Telephone Encounter - Tonja Cazares RN - 09/09/2021 12:23 PM EDT Called pt. to further assess right knee, and explained that Dr. Kerr will only see her for her hands, as he does not have time to assess knee in the same visit. Asked when her last xray of nika was? She said not for years . She states she has been having worsening pain in knee that hadUNI partial revision 15 years ago, but provider no longer in practice, and she has had no f/u. She denies redness, edema or fever. Explained that does not do knee revisions, and offered to transfer her to [facility] to schedule in [place] or with first available, but she declines. She states she has too much going on right now. Pt. instructed that if she begins having fever or redness or increased pain of knee that she should go to ER. She states her is having valve replacement of heart on09-13-21 and she has too much going on. * Telephone Encounter - Melissa Esparza - 09/06/2021 4:18 PM EDT Patient is schedule for 09/30 for ann hand pain due to gas prices and having open heart [place] [facility] she is requesting to also be seen for a previous rt knee replacement done about 15-20 years ago in [place] by a Dr Abebe Peraza who she will not be returning to due to some issues this provider got himself into.Please advise patient if willing to se for Rt Knee issue. documented in this encounterK[facility] Evaluation note* Diagnosis Type 2 diabetes mellitus with stage 3 chronic kidney disease, without long-term current use of insulin, unspecified whether stage 3a or 3b CKD (HCC)- Primary documented [facility] encounter [facility] Miscellaneous Notes* Telephone Encounter - Jannette Lemus LPN - 08/05/2021 1:29 PM EDT Patient notified of results, verbalizes understanding of instructions. Jannette Lemus LPN * Telephone Encounter - Christine Morgan APRN.CNP - 08/05/2021 12:49 PM EDT Can please let patient know that I received your lab results. The urine culture did not show any infection. The urine sodium and osmolality was normal. The kidney function is stable. I did notice that her sugar was a little low on both of the recent blood draws. Is she checking sugars at home? Lets decrease her glimepiride to just one tablet daily w/ breakfast. Lets recheck an A1C in 3 months. Christine Morgan APRN.JOSEFINA documented in this encounterK[facility]-10-2022 Miscellaneous Notes* Telephone Encounter - Christine Morgan APRN.CNP - 07/30/2021 5:32 PM EDT Noted. Christine Morgan APRN.CNP * Telephone Encounter - Dionna Vicente RN - 07/30/2021 11:08 AM EDT Pt called and is notified of providers results and instructions. Pt voices understanding. Pt deniesany urinary symptoms. She states it is hard for her to do a clean catch since they cut her rectal sphincter when she had hemorrhoid surgery. Pt is put through to scheduling to set up appointment for US. Dionna Vicente RN * Telephone Encounter - Christine Morgan APRN.CNP - 07/30/2021 9:33 AM EDT Can please let patient know that I started to receive her lab results back. Her urine actually looks like she may have a urinary tract infection. Can she please return to giveanother urine sample for culture. Is she having any urinary symptoms? Her A1c is stable at 6.2. Her thyroid function was normal. Her cholesterol panels were normal. Her liver function was minimally elevated. It looks like her last liver ultrasound was approximately 3 years ago. Lets have her go ahead and repeat this just for surveillance. Her kidney function was within normal/stable. Her sodium was a little low. She has a history of this. Lets have her repeat this bloodwork next week. The order is in. I also ordered some additional urine studies for that as well. Christine Morgan APRN.JOSEFINA documented in this encounterK[facility]-2022 Instructions* Patient Instructions* Christine Morgan APRN.CNP - 07/29/2021 1:49 PM EDT 1. Get labs. 2. Schedule w/ ortho. 3. You can try the flexeril -- it can make you tired, so be cautious. 4. Recheck in 6 months. documented in this encounterK[facility]05-09-2022 History of Present illness Narrative* Christine Morgan APRN.CNP - 07/29/2021 1:13 PM EDT This is a 71 year old female who presents today with: Patient presents with: Multiple Concerns: hair loss, back pain, referral to Ortho for injection in knuckle HISTORY OF PRESENT ILLNESS: Mary Jane De Paz is a 71 year old female. Patient presents with: Multiple Concerns: hair loss, back pain, referral to Ortho for injection in knuckle Left 3rd finger PIP knuckle pain. Interested in getting an injection into that knuckle. Taking apple cider vinegar and tumeric. No redness/swelling. Right handed. Was having some troubles with falls. Refers that she has fallen three times. Struggles getting up and down. Hasn't noticed anything for the last month or two. Thought that maybe she had fluid in her ear that was throwing off her balance. Improved now, though. Refers that she losing hair and eyelashes. chucking machine set up operator told her. Has been going on the last 2-3 months. No recent sickness. Right lower back pain. Was getting camper ready. No new loss of bowel/bladder. Tender right lower back. Concerned about possible dehydration. Able to drink. Refers that she just is recognizing the symptoms of dehydration from in the past when she required IVF. Refers that her lips are dry and cracked. Requesting IVF. PAST MEDICAL HISTORY: PAST MEDICAL HISTORY Diagnosis Date Allergic rhinitis Arthritis [facility] orthopedics, knee Asthma CKD (chronic kidney disease) 11/01/2018 Class 3 severe obesity with serious comorbidity and body mass index (BMI) of 40.0 to 44.9 in adult ([facility]) 08/19/[address] Salazar Environmental allergies GERD (gastroesophageal reflux disease) HTN (hypertension) Hypothyroidism Mixed hyperlipidemia NIDDM (non-insulin dependent diabetes mellitus) MARIBEL on CPAP CPAP 9Cm Renal lesion 01/15/15 Suggest renal US every 1-2 years per PCP or nephro. Snoring Type 2 diabetes mellitus with hyperglycemia, with long-term current use of insulin ([facility]) 02/27/2001 PAST SURGICAL HISTORY Procedure Laterality Date COLONOSCOPY 11/05/2016 Tammi- divertiuclosis, internal hemorrhoids, repeat in 5 years COSMETIC ASSESSMENT EGD 11/05/2016 Tammi- gastritis EGD 09/08/2018 /Gastritis EGD 04/02/2020 EYE SURGERY HX FRACTURE SURGERY GASTRIC BYPASS HX 12/13/2018 HYSTERECTOMY JOINT REPLACEMENT HX OOPHORECTOMY PARTIAL OR TOTAL PAST SURGICAL HISTORY OF 2009 hemmroidectomy/sphincterectomy - Dr Nichole PAST SURGICAL HISTORY OF 2008 total left knee replacement PAST SURGICAL HISTORY OF 2003 partial right knee replacement PAST SURGICAL HISTORY OF 1990 total hysterectomy PAST SURGICAL HISTORY OF 2010 lDr Mansoor - [place] elbow fracture - traumatic. radial head replacement PAST SURGICAL HISTORY OF Bilateral 2016 hand surgery PAST SURGICAL HISTORY OF Left RELEASE CONTRACTURE DEQUERVAINS SKIN BIOPSY HX TUBAL LIGATION HX VAGINAL HYSTERECTOMY ALLERGIES Vicodin [Hydrocodone-Acetaminophen] MEDICATIONS Current Outpatient Medications Medication Sig atorvastatin (LIPITOR) 20 mg tablet Take 1 tablet by mouth daily at bedtime. For cholesterol. levothyroxine (SYNTHROID) 100 mcg tablet Take 1 tablet by mouth once daily. dicyclomine (BENTYL) 20 mg tablet Take 1 tablet by mouth before meals and at bedtime. buPROPion XL (WELLBUTRIN XL) 300 mg 24 hr tablet Take 1 tablet by mouth once daily. lisinopril (ZESTRIL, PRINIVIL) 20 mg tablet Take 0.5 tablets by mouth once daily. esomeprazole (NEXIUM) 40 mg capsule TAKE ONE CAPSULE BY MOUTH twice daily. traZODone (DESYREL) 100 mg tablet Take 2 tablets by mouth daily at bedtime. glimepiride (AMARYL) 2 mg tablet Take 2 tablets by mouth daily with breakfast. oxyCODONE-acetaminophen (PERCOCET) 5-325 mg tablet Take 1 tablet by mouth every 8 hours as needed for pain. dulaglutide (TRULICITY) 0.75 mg/0.5 mL pen injector Inject 0.75 mg subcutaneously one time a week. Inject dose once per week. Discard Pen After MULTI-VITAMIN ORAL Take 1 tablet by mouth once daily. Takes bariatric multivitamin daily ondansetron (ZOFRAN) 8 mg tablet Take 1 tablet by mouth every 8 hours as needed for nausea/vomiting. FLUoxetine (PROZAC) 20 mg capsule Take 3 capsules by mouth once daily. zoster vaccine, recombinant, adjuvanted, (SHINGRIX, PF,) 50 mcg/0.5 mL injection Inject 0.5 mL intramuscularly now and repeat 2nd dose in 2-6 months Ascorbic Acid (VITAMIN C) chew Take 1,000 mg by mouth once daily. Vit B Cmplx 3-FA-Vit C-Biotin tablet Take 1 tablet by mouth once daily. calcium citrate/vitamin D3 (CALCIUM CITRATE + D ORAL) Take 1 tablet by mouth twice daily. No current facility-administered medications for this visit. FAMILY HISTORY Problem Relation Age of Onset other (polio) Mother Diabetes Father other (Squamous cell ca) Father other (renal cell ca) Father 1999 other (htn) Father other (renal cell ca) Brother 2010 other (Thyroid Cancer) Sister other (thyroid disease) Sister ca Obesity Paternal Grandmother Obesity Daughter Social History Tobacco Use Smoking status: Former Smoker Packs/day: 1.50 Years: 22.00 Pack years: 33.00 Types: Cigarettes Quit date: 1989 Years since quittin.3 Smokeless tobacco: Never Used Substance Use Topics Alcohol use: Yes Comment: few times a year. mixed drinls/marcelino. 3 in sitting. Drug use: No Comment: denies tx for drug/alcohol abuse in the past. EXAM: BP 126/80 Pulse 75 Resp 18 Wt 73.9 kg (163 lb) SpO2 98% BMI 29.81 kg/m PHYSICAL EXAM: General Appearance: Well appearing, alert, in no acute distress, well-hydrated, well nourished.. Skin: Skin color, texture, turgor normal, no suspicious rashes or lesions. Head: Normocephalic, no masses, lesions, tenderness or abnormalities. Eyes: Anicteric sclera. Pupils are equally round and reactive to light. Extraocular movements are intact. Ears: External ears normal, canals clear. Oropharynx: Lips, mucosa, and tongue normal, teeth and gums normal, oropharynx normal. Neck: Supple, no adenopathy; thyroid symmetric, normal size, no bruits. Lungs: Lungs clear to auscultation. No wheezing, rhonchi, rales.. Heart: RRR without murmur, gallop, or rubs. No ectopy. Abdomen: Abdomen soft, non-tender. Bowel sounds normal. No masses, organomegaly. Extremities: No deformities, edema, skin discoloration, clubbing or cyanosis. Good capillary refill. Neurologic: Gait normal. Reflexes normal and symmetric. Sensation grossly intact. Neg SLR. = strength of LE. ASSESSMENT/PLAN: 1. Essential hypertension - ICD9: 401.9, ICD10: I10 (primary diagnosis) - good control - Continue current medication(s) - Recommended regular aerobic exercise. - Recommend home blood pressure monitoring, to bring results in on next visit - Goal of BP <130/80 - COMP METABOLIC PANEL - LISINOPRIL 10 MG TABLET 2. Type 2 diabetes mellitus with stage 3 chronic kidney disease, without long- term current use of insulin, unspecified whether stage 3a or 3b CKD (HCC) - ICD9: 250.40, 585.3, ICD10: E11.22, N18.30 - HGB A1C - COMP METABOLIC PANEL 3. Hypothyroidism, unspecified type - ICD9: 244.9, ICD10: E03.9 - TSH BLD - T4 FREE/FREE THYROX 4. Mixed hyperlipidemia - ICD9: 272.2, ICD10: E78.2 - LIPID PANEL, NONFASTING - COMP METABOLIC PANEL 5. Pain of finger of left hand - ICD9: 729.5, ICD10: M79.645 - CONSULT TO ORTHOPAEDICS 6. Cracked lips - ICD9: 528.5, ICD10: K13.0 Get labs. Increase oral fluids. - VITAMIN B12 BLOOD 7. Gastroesophageal reflux disease, unspecified whether esophagitis present - ICD9: 530.81, ICD10: K21.9 - MAGNESIUM BLD 8. Anemia, unspecified type - ICD9: 285.9, ICD10: D64.9 - CBC + DIFF - URINALYSIS, WITH MICROSCOPIC 9. Chronic right-sided low back pain without sciatica - ICD9: 724.2, 338.29, ICD10: M54.50, G89.29 Will try flexeril. Discussed potential side effects of ordered medications. Patient voices understanding. Declines PT at this time. - CYCLOBENZAPRINE 10 MG TABLET Discussed treatment plan and patient voices understanding. Patient's questions answered appropriately. Medications and potential side effects were discussed and patient voices understanding. Return to the office as scheduled or as needed for worsening/no improvement. Christine Morgan APRN.CD REACTOR OPERATOR The patient indicates understanding of these issues and agrees with the plan. This note was partially generated using [email or web address] voice recognition system. Note was reviewed for accuracy. There may be minor misspellings or grammar miscues with Quik[employer]io voice recognition. documented in this encounterK[facility]11-[facility]-2021 History of Present illness Narrative* Diana Barclay RT(R) - 02/04/2021 12:30 PM EST Radiology Service Progress Note PATIENT NAME: Mary Jane De Paz DATE OF SERVICE: February 04, 2021 TIME: 12:49 PM PATIENT IDENTITY VERIFICATION COMPLETED USING TWO (2) IDENTIFIERS: Name and Date of confirmedby patient verbally. FALL SCREENING: Has the patient had 2 falls in the last year or 1 fall with injury or currently using an Ambulatory Assistive Device (Walker, Cane, Wheelchair, Crutches, etc.)? No PATIENT GENDER DATA: Female. status: : No status: NO. PATIENT RELEVANT IMPLANT DATA REVIEWED: Not Applicable RADIOLOGY DEPARTMENT: General X-ray: Exam(s) Completed: Rib X-Ray: Left PERIPHERAL IV DATA: Not applicable SIGNED BY: Diana Barclay RT(R) February 04, 2021 12:49 PM documented in this encounterKet[facility]09-27-2019 History of Past illness Narrative* Problem Noted Date Resolved Date Obesity, Class II, BMI 35-39.9 12/17/2018 0 08/30/2020 Obesity 12/14/2018 08/30/2020 Class 3 severe obesity with serious comorbidity and body mass index (BMI) of 40.0 to 44.9 in adult 08/19/2018 08/30/2020 Post-operative state 05/26/2018 08/30/2020 Contusion of leg, left, sequela 04/30/2017 08/30/2020 Pain of foot 11/27/2016 08/30/2020 Encounter for screening colonoscopy 10/09/2016 08/30/2020 Overview: Added automatically from request for surgery [id number] Diarrhea 09/01/2013 08/30/2020 HTN (hypertension) 12/05/2011 10/14/2014 documented as of this encounter (statuses as of 07/29/2021) [facility] of [facility] illness Narrative* Problem Noted Date Resolved Date Obesity, Class II, BMI 35-39.9 12/17/2018 0 08/30/2020 Obesity 12/14/2018 08/30/2020 Class 3 severe obesity with serious comorbidity and body mass index (BMI) of 40.0 to 44.9 in adult 08/19/2018 08/30/2020 Post-operative state 05/26/2018 08/30/2020 Contusion of leg, left, sequela 04/30/2017 08/30/2020 Pain of foot 11/27/2016 08/30/2020 Encounter for screening colonoscopy 10/09/2016 08/30/2020 Overview: Added automatically from request for surgery [id number] Diarrhea 09/01/2013 08/30/2020 HTN (hypertension) 12/05/2011 10/14/2014 documented as of this encounter (statuses as of 07/30/2021) [facility] of [facility] illness Narrative* Problem Noted Date Resolved Date Obesity, Class II, BMI 35-39.9 12/17/2018 0 08/30/2020 Obesity 12/14/2018 08/30/2020 Class 3 severe obesity with serious comorbidity and body mass index (BMI) of 40.0 to 44.9 in adult 08/19/2018 08/30/2020 Post-operative state 05/26/2018 08/30/2020 Contusion of leg, left, sequela 04/30/2017 08/30/2020 Pain of foot 11/27/2016 08/30/2020 Encounter for screening colonoscopy 10/09/2016 08/30/2020 Overview: Added automatically from request for surgery [id number] Diarrhea 09/01/2013 08/30/2020 HTN (hypertension) 12/05/2011 10/14/2014 documented as of this encounter (statuses as of 08/02/2021) [facility] Narrative* Problem Noted Date Resolved Date Obesity, Class II, BMI 35-39.9 12/17/2018 0 08/30/2020 Obesity 12/14/2018 08/30/2020 Class 3 severe obesity with serious comorbidity and body mass index (BMI) of 40.0 to 44.9 in adult 08/19/2018 08/30/2020 Post-operative state 05/26/2018 08/30/2020 Contusion of leg, left, sequela 04/30/2017 08/30/2020 Pain of foot 11/27/2016 08/30/2020 Encounter for screening colonoscopy 10/09/2016 08/30/2020 Overview: Added automatically from request for surgery [id number] Diarrhea 09/01/2013 08/30/2020 HTN (hypertension) 12/05/2011 10/14/2014 documented as of this encounter (statuses as of 08/16/2021) [facility] Narrative* Problem Noted Date Resolved Date Obesity, Class II, BMI 35-39.9 12/17/2018 0 08/30/2020 Obesity 12/14/2018 08/30/2020 Class 3 severe obesity with serious comorbidity and body mass index (BMI) of 40.0 to 44.9 in adult 08/19/2018 08/30/2020 Post-operative state 05/26/2018 08/30/2020 Contusion of leg, left, sequela 04/30/2017 08/30/2020 Pain of foot 11/27/2016 08/30/2020 Encounter for screening colonoscopy 10/09/2016 08/30/2020 Overview: Added automatically from request for surgery [id number] Diarrhea 09/01/2013 08/30/2020 HTN (hypertension) 12/05/2011 10/14/2014 documented as of this encounter (statuses as of 09/09/2021) [facility] Narrative* Problem Noted Date Resolved Date Obesity, Class II, BMI 35-39.9 12/17/2018 0 08/30/2020 Obesity 12/14/2018 08/30/2020 Class 3 severe obesity with serious comorbidity and body mass index (BMI) of 40.0 to 44.9 in adult 08/19/2018 08/30/2020 Post-operative state 05/26/2018 08/30/2020 Contusion of leg, left, sequela 04/30/2017 08/30/2020 Pain of foot 11/27/2016 08/30/2020 Encounter for screening colonoscopy 10/09/2016 08/30/2020 Overview: Added automatically from request for surgery [id number] Diarrhea 09/01/2013 08/30/2020 HTN (hypertension) 12/05/2011 10/14/2014 documented as of this encounter (statuses as of 10/11/2021) [facility] Narrative* Problem Noted Date Resolved Date Obesity, Class II, BMI 35-39.9 12/17/2018 0 08/30/2020 Obesity 12/14/2018 08/30/2020 Class 3 severe obesity with serious comorbidity and body mass index (BMI) of 40.0 to 44.9 in adult 08/19/2018 08/30/2020 Post-operative state 05/26/2018 08/30/2020 Contusion of leg, left, sequela 04/30/2017 08/30/2020 Pain of foot 11/27/2016 08/30/2020 Encounter for screening colonoscopy 10/09/2016 08/30/2020 Overview: Added automatically from request for surgery [id number] Diarrhea 09/01/2013 08/30/2020 HTN (hypertension) 12/05/2011 10/14/2014 documented as of this encounter (statuses as of 10/18/2021) [facility] Narrative* Problem Noted Date Resolved Date Obesity, Class II, BMI 35-39.9 12/17/2018 0 08/30/2020 Obesity 12/14/2018 08/30/2020 Class 3 severe obesity with serious comorbidity and body mass index (BMI) of 40.0 to 44.9 in adult 08/19/2018 08/30/2020 Post-operative state 05/26/2018 08/30/2020 Contusion of leg, left, sequela 04/30/2017 08/30/2020 Pain of foot 11/27/2016 08/30/2020 Encounter for screening colonoscopy 10/09/2016 08/30/2020 Overview: Added automatically from request for surgery [id number] Diarrhea 09/01/2013 08/30/2020 HTN (hypertension) 12/05/2011 10/14/2014 documented as of this encounter (statuses as of 10/23/2021) [facility] Narrative* Problem Noted Date Resolved Date Obesity, Class II, BMI 35-39.9 12/17/2018 0 08/30/2020 Obesity 12/14/2018 08/30/2020 Class 3 severe obesity with serious comorbidity and body mass index (BMI) of 40.0 to 44.9 in adult 08/19/2018 08/30/2020 Post-operative state 05/26/2018 08/30/2020 Contusion of leg, left, sequela 04/30/2017 08/30/2020 Pain of foot 11/27/2016 08/30/2020 Encounter for screening colonoscopy 10/09/2016 08/30/2020 Overview: Added automatically from request for surgery [id number] Diarrhea 09/01/2013 08/30/2020 HTN (hypertension) 12/05/2011 10/14/2014 documented as of this encounter (statuses as of 10/29/2021) [facility] Narrative* Problem Noted Date Resolved Date Obesity, Class II, BMI 35-39.9 12/17/2018 0 08/30/2020 Obesity 12/14/2018 08/30/2020 Class 3 severe obesity with serious comorbidity and body mass index (BMI) of 40.0 to 44.9 in adult 08/19/2018 08/30/2020 Post-operative state 05/26/2018 08/30/2020 Contusion of leg, left, sequela 04/30/2017 08/30/2020 Pain of foot 11/27/2016 08/30/2020 Encounter for screening colonoscopy 10/09/2016 08/30/2020 Overview: Added automatically from request for surgery [id number] Diarrhea 09/01/2013 08/30/2020 HTN (hypertension) 12/05/2011 10/14/2014 documented as of this encounter (statuses as of 11/17/2021) [facility] Narrative* Problem Noted Date Resolved Date Obesity, Class II, BMI 35-39.9 12/17/2018 0 08/30/2020 Obesity 12/14/2018 08/30/2020 Class 3 severe obesity with serious comorbidity and body mass index (BMI) of 40.0 to 44.9 in adult 08/19/2018 08/30/2020 Post-operative state 05/26/2018 08/30/2020 Contusion of leg, left, sequela 04/30/2017 08/30/2020 Pain of foot 11/27/2016 08/30/2020 Encounter for screening colonoscopy 10/09/2016 08/30/2020 Overview: Added automatically from request for surgery [id number] Diarrhea 09/01/2013 08/30/2020 HTN (hypertension) 12/05/2011 10/14/2014 documented as of this encounter (statuses as of 11/18/2021) [facility] Narrative* Problem Noted Date Resolved Date Obesity, Class II, BMI 35-39.9 12/17/2018 0 08/30/2020 Obesity 12/14/2018 08/30/2020 Class 3 severe obesity with serious comorbidity and body mass index (BMI) of 40.0 to 44.9 in adult 08/19/2018 08/30/2020 Post-operative state 05/26/2018 08/30/2020 Contusion of leg, left, sequela 04/30/2017 08/30/2020 Pain of foot 11/27/2016 08/30/2020 Encounter for screening colonoscopy 10/09/2016 08/30/2020 Overview: Added automatically from request for surgery [id number] Diarrhea 09/01/2013 08/30/2020 HTN (hypertension) 12/05/2011 10/14/2014 documented as of this encounter (statuses as of 11/22/2021) [facility] Narrative* Problem Noted Date Resolved Date Obesity, Class II, BMI 35-39.9 12/17/2018 0 08/30/2020 Obesity 12/14/2018 08/30/2020 Class 3 severe obesity with serious comorbidity and body mass index (BMI) of 40.0 to 44.9 in adult 08/19/2018 08/30/2020 Post-operative state 05/26/2018 08/30/2020 Contusion of leg, left, sequela 04/30/2017 08/30/2020 Pain of foot 11/27/2016 08/30/2020 Encounter for screening colonoscopy 10/09/2016 08/30/2020 Overview: Added automatically from request for surgery [id number] Diarrhea 09/01/2013 08/30/2020 HTN (hypertension) 12/05/2011 10/14/2014 documented as of this encounter (statuses as of 11/22/2021) [facility] Narrative* Problem Noted Date Resolved Date Obesity, Class II, BMI 35-39.9 12/17/2018 0 08/30/2020 Obesity 12/14/2018 08/30/2020 Class 3 severe obesity with serious comorbidity and body mass index (BMI) of 40.0 to 44.9 in adult 08/19/2018 08/30/2020 Post-operative state 05/26/2018 08/30/2020 Contusion of leg, left, sequela 04/30/2017 08/30/2020 Pain of foot 11/27/2016 08/30/2020 Encounter for screening colonoscopy 10/09/2016 08/30/2020 Overview: Added automatically from request for surgery [id number] Diarrhea 09/01/2013 08/30/2020 HTN (hypertension) 12/05/2011 10/14/2014 documented as of this encounter (statuses as of 11/22/2021) [facility] Narrative* Problem Noted Date Resolved Date Obesity, Class II, BMI 35-39.9 12/17/2018 0 08/30/2020 Obesity 12/14/2018 08/30/2020 Class 3 severe obesity with serious comorbidity and body mass index (BMI) of 40.0 to 44.9 in adult 08/19/2018 08/30/2020 Post-operative state 05/26/2018 08/30/2020 Contusion of leg, left, sequela 04/30/2017 08/30/2020 Pain of foot 11/27/2016 08/30/2020 Encounter for screening colonoscopy 10/09/2016 08/30/2020 Overview: Added automatically from request for surgery [id number] Diarrhea 09/01/2013 08/30/2020 HTN (hypertension) 12/05/2011 10/14/2014 documented as of this encounter (statuses as of 11/24/2021) [facility] Narrative* Problem Noted Date Resolved Date Obesity, Class II, BMI 35-39.9 12/17/2018 0 08/30/2020 Obesity 12/14/2018 08/30/2020 Class 3 severe obesity with serious comorbidity and body mass index (BMI) of 40.0 to 44.9 in adult 08/19/2018 08/30/2020 Post-operative state 05/26/2018 08/30/2020 Contusion of leg, left, sequela 04/30/2017 08/30/2020 Pain of foot 11/27/2016 08/30/2020 Encounter for screening colonoscopy 10/09/2016 08/30/2020 Overview: Added automatically from request for surgery [id number] Diarrhea 09/01/2013 08/30/2020 HTN (hypertension) 12/05/2011 10/14/2014 documented as of this encounter (statuses as of 11/26/2021) [facility]2019 History of Past illness Narrative* Problem Noted Date Resolved Date Obesity, Class II, BMI 35-39.9 12/17/2018 0 08/30/2020 Obesity 12/14/2018 08/30/2020 Class 3 severe obesity with serious comorbidity and body mass index (BMI) of 40.0 to 44.9 in adult 08/19/2018 08/30/2020 Post-operative state 05/26/2018 08/30/2020 Contusion of leg, left, sequela 04/30/2017 08/30/2020 Pain of foot 11/27/2016 08/30/2020 Encounter for screening colonoscopy 10/09/2016 08/30/2020 Overview: Added automatically from request for surgery [id number] Diarrhea 09/01/2013 08/30/2020 HTN (hypertension) 12/05/2011 10/14/2014 documented as of this encounter (statuses as of 11/27/2021) [facility] History of Past illness Narrative* Problem Noted Date Resolved Date Obesity, Class II, BMI 35-39.9 12/17/2018 0 08/30/2020 Obesity 12/14/2018 08/30/2020 Class 3 severe obesity with serious comorbidity and body mass index (BMI) of 40.0 to 44.9 in adult 08/19/2018 08/30/2020 Post-operative state 05/26/2018 08/30/2020 Contusion of leg, left, sequela 04/30/2017 08/30/2020 Pain of foot 11/27/2016 08/30/2020 Encounter for screening colonoscopy 10/09/2016 08/30/2020 Overview: Added automatically from request for surgery [id number] Diarrhea 09/01/2013 08/30/2020 HTN (hypertension) 12/05/2011 10/14/2014 documented as of this encounter (statuses as of 11/28/2021) [facility] History of Past illness Narrative* Problem Noted Date Resolved Date Obesity, Class II, BMI 35-39.9 12/17/2018 0 08/30/2020 Obesity 12/14/2018 08/30/2020 Class 3 severe obesity with serious comorbidity and body mass index (BMI) of 40.0 to 44.9 in adult 08/19/2018 08/30/2020 Post-operative state 05/26/2018 08/30/2020 Contusion of leg, left, sequela 04/30/2017 08/30/2020 Pain of foot 11/27/2016 08/30/2020 Encounter for screening colonoscopy 10/09/2016 08/30/2020 Overview: Added automatically from request for surgery [id number] Diarrhea 09/01/2013 08/30/2020 HTN (hypertension) 12/05/2011 10/14/2014 documented as of this encounter (statuses as of 11/29/2021) [facility] History of Past illness Narrative* Problem Noted Date Resolved Date Obesity, Class II, BMI 35-39.9 12/17/2018 0 08/30/2020 Obesity 12/14/2018 08/30/2020 Class 3 severe obesity with serious comorbidity and body mass index (BMI) of 40.0 to 44.9 in adult 08/19/2018 08/30/2020 Post-operative state 05/26/2018 08/30/2020 Contusion of leg, left, sequela 04/30/2017 08/30/2020 Pain of foot 11/27/2016 08/30/2020 Encounter for screening colonoscopy 10/09/2016 08/30/2020 Overview: Added automatically from request for surgery [id number] Diarrhea 09/01/2013 08/30/2020 HTN (hypertension) 12/05/2011 10/14/2014 documented as of this encounter (statuses as of 12/03/2021) [facility] History of Past illness Narrative* Problem Noted Date Resolved Date Obesity, Class II, BMI 35-39.9 12/17/2018 0 08/30/2020 Obesity 12/14/2018 08/30/2020 Class 3 severe obesity with serious comorbidity and body mass index (BMI) of 40.0 to 44.9 in adult 08/19/2018 08/30/2020 Post-operative state 05/26/2018 08/30/2020 Contusion of leg, left, sequela 04/30/2017 08/30/2020 Pain of foot 11/27/2016 08/30/2020 Encounter for screening colonoscopy 10/09/2016 08/30/2020 Overview: Added automatically from request for surgery [id number] Diarrhea 09/01/2013 08/30/2020 HTN (hypertension) 12/05/2011 10/14/2014 documented as of this encounter (statuses as of 12/03/2021) [facility] History of Past illness Narrative* Problem Noted Date Resolved Date Obesity, Class II, BMI 35-39.9 12/17/2018 0 08/30/2020 Obesity 12/14/2018 08/30/2020 Class 3 severe obesity with serious comorbidity and body mass index (BMI) of 40.0 to 44.9 in adult 08/19/2018 08/30/2020 Post-operative state 05/26/2018 08/30/2020 Contusion of leg, left, sequela 04/30/2017 08/30/2020 Pain of foot 11/27/2016 08/30/2020 Encounter for screening colonoscopy 10/09/2016 08/30/2020 Overview: Added automatically from request for surgery [id number] Diarrhea 09/01/2013 08/30/2020 HTN (hypertension) 12/05/2011 10/14/2014 documented as of this encounter (statuses as of 12/05/2021) [facility] History of Past illness Narrative* Problem Noted Date Resolved Date Obesity, Class II, BMI 35-39.9 12/17/2018 0 08/30/2020 Obesity 12/14/2018 08/30/2020 Class 3 severe obesity with serious comorbidity and body mass index (BMI) of 40.0 to 44.9 in adult 08/19/2018 08/30/2020 Post-operative state 05/26/2018 08/30/2020 Contusion of leg, left, sequela 04/30/2017 08/30/2020 Pain of foot 11/27/2016 08/30/2020 Encounter for screening colonoscopy 10/09/2016 08/30/2020 Overview: Added automatically from request for surgery [id number] Diarrhea 09/01/2013 08/30/2020 HTN (hypertension) 12/05/2011 10/14/2014 documented as of this encounter (statuses as of 12/05/2021) [facility] History of Past illness Narrative* Problem Noted Date Resolved Date Obesity, Class II, BMI 35-39.9 12/17/2018 0 08/30/2020 Obesity 12/14/2018 08/30/2020 Class 3 severe obesity with serious comorbidity and body mass index (BMI) of 40.0 to 44.9 in adult 08/19/2018 08/30/2020 Post-operative state 05/26/2018 08/30/2020 Contusion of leg, left, sequela 04/30/2017 08/30/2020 Pain of foot 11/27/2016 08/30/2020 Encounter for screening colonoscopy 10/09/2016 08/30/2020 Overview: Added automatically from request for surgery [id number] Diarrhea 09/01/2013 08/30/2020 HTN (hypertension) 12/05/2011 10/14/2014 documented as of this encounter (statuses as of 12/09/2021) [facility] History of Past illness Narrative* Problem Noted Date Resolved Date Obesity, Class II, BMI 35-39.9 12/17/2018 0 08/30/2020 Obesity 12/14/2018 08/30/2020 Class 3 severe obesity with serious comorbidity and body mass index (BMI) of 40.0 to 44.9 in adult 08/19/2018 08/30/2020 Post-operative state 05/26/2018 08/30/2020 Contusion of leg, left, sequela 04/30/2017 08/30/2020 Pain of foot 11/27/2016 08/30/2020 Encounter for screening colonoscopy 10/09/2016 08/30/2020 Overview: Added automatically from request for surgery [id number] Diarrhea 09/01/2013 08/30/2020 HTN (hypertension) 12/05/2011 10/14/2014 documented as of this encounter (statuses as of 12/10/2021) [facility] History of Past illness Narrative* Problem Noted Date Resolved Date Obesity, Class II, BMI 35-39.9 12/17/2018 0 08/30/2020 Obesity 12/14/2018 08/30/2020 Class 3 severe obesity with serious comorbidity and body mass index (BMI) of 40.0 to 44.9 in adult 08/19/2018 08/30/2020 Post-operative state 05/26/2018 08/30/2020 Contusion of leg, left, sequela 04/30/2017 08/30/2020 Pain of foot 11/27/2016 08/30/2020 Encounter for screening colonoscopy 10/09/2016 08/30/2020 Overview: Added automatically from request for surgery [id number] Diarrhea 09/01/2013 08/30/2020 HTN (hypertension) 12/05/2011 10/14/2014 documented as of this encounter (statuses as of 12/11/2021) [facility] History of Past illness Narrative* Problem Noted Date Resolved Date Obesity, Class II, BMI 35-39.9 12/17/2018 0 08/30/2020 Obesity 12/14/2018 08/30/2020 Class 3 severe obesity with serious comorbidity and body mass index (BMI) of 40.0 to 44.9 in adult 08/19/2018 08/30/2020 Post-operative state 05/26/2018 08/30/2020 Contusion of leg, left, sequela 04/30/2017 08/30/2020 Pain of foot 11/27/2016 08/30/2020 Encounter for screening colonoscopy 10/09/2016 08/30/2020 Overview: Added automatically from request for surgery [id number] Diarrhea 09/01/2013 08/30/2020 HTN (hypertension) 12/05/2011 10/14/2014 documented as of this encounter (statuses as of 12/11/2021) [facility] History of Past illness Narrative* Problem Noted Date Resolved Date Obesity, Class II, BMI 35-39.9 12/17/2018 0 08/30/2020 Obesity 12/14/2018 08/30/2020 Class 3 severe obesity with serious comorbidity and body mass index (BMI) of 40.0 to 44.9 in adult 08/19/2018 08/30/2020 Post-operative state 05/26/2018 08/30/2020 Contusion of leg, left, sequela 04/30/2017 08/30/2020 Pain of foot 11/27/2016 08/30/2020 Encounter for screening colonoscopy 10/09/2016 08/30/2020 Overview: Added automatically from request for surgery [id number] Diarrhea 09/01/2013 08/30/2020 HTN (hypertension) 12/05/2011 10/14/2014 documented as of this encounter (statuses as of 12/16/2021) [facility] History of Past illness Narrative* Problem Noted Date Resolved Date Obesity, Class II, BMI 35-39.9 12/17/2018 0 08/30/2020 Obesity 12/14/2018 08/30/2020 Class 3 severe obesity with serious comorbidity and body mass index (BMI) of 40.0 to 44.9 in adult 08/19/2018 08/30/2020 Post-operative state 05/26/2018 08/30/2020 Contusion of leg, left, sequela 04/30/2017 08/30/2020 Pain of foot 11/27/2016 08/30/2020 Encounter for screening colonoscopy 10/09/2016 08/30/2020 Overview: Added automatically from request for surgery [id number] Diarrhea 09/01/2013 08/30/2020 HTN (hypertension) 12/05/2011 10/14/2014 documented as of this encounter (statuses as of 12/17/2021) [facility] History of Past illness Narrative* Problem Noted Date Resolved Date Obesity, Class II, BMI 35-39.9 12/17/2018 0 08/30/2020 Obesity 12/14/2018 08/30/2020 Class 3 severe obesity with serious comorbidity and body mass index (BMI) of 40.0 to 44.9 in adult 08/19/2018 08/30/2020 Post-operative state 05/26/2018 08/30/2020 Contusion of leg, left, sequela 04/30/2017 08/30/2020 Pain of foot 11/27/2016 08/30/2020 Encounter for screening colonoscopy 10/09/2016 08/30/2020 Overview: Added automatically from request for surgery [id number] Diarrhea 09/01/2013 08/30/2020 HTN (hypertension) 12/05/2011 10/14/2014 documented as of this encounter (statuses as of 12/20/2021) [facility] History of Past illness Narrative* Problem Noted Date Resolved Date Obesity, Class II, BMI 35-39.9 12/17/2018 0 08/30/2020 Obesity 12/14/2018 08/30/2020 Class 3 severe obesity with serious comorbidity and body mass index (BMI) of 40.0 to 44.9 in adult 08/19/2018 08/30/2020 Post-operative state 05/26/2018 08/30/2020 Contusion of leg, left, sequela 04/30/2017 08/30/2020 Pain of foot 11/27/2016 08/30/2020 Encounter for screening colonoscopy 10/09/2016 08/30/2020 Overview: Added automatically from request for surgery [id number] Diarrhea 09/01/2013 08/30/2020 HTN (hypertension) 12/05/2011 10/14/2014 documented as of this encounter (statuses as of 12/20/2021) [facility] History of Past illness Narrative* Problem Noted Date Resolved Date Obesity, Class II, BMI 35-39.9 12/17/2018 0 08/30/2020 Obesity 12/14/2018 08/30/2020 Class 3 severe obesity with serious comorbidity and body mass index (BMI) of 40.0 to 44.9 in adult 08/19/2018 08/30/2020 Post-operative state 05/26/2018 08/30/2020 Contusion of leg, left, sequela 04/30/2017 08/30/2020 Pain of foot 11/27/2016 08/30/2020 Encounter for screening colonoscopy 10/09/2016 08/30/2020 Overview: Added automatically from request for surgery [id number] Diarrhea 09/01/2013 08/30/2020 HTN (hypertension) 12/05/2011 10/14/2014 documented as of this encounter (statuses as of 12/25/2021) [facility] History of Past illness Narrative* Problem Noted Date Resolved Date Obesity, Class II, BMI 35-39.9 12/17/2018 0 08/30/2020 Obesity 12/14/2018 08/30/2020 Class 3 severe obesity with serious comorbidity and body mass index (BMI) of 40.0 to 44.9 in adult 08/19/2018 08/30/2020 Post-operative state 05/26/2018 08/30/2020 Contusion of leg, left, sequela 04/30/2017 08/30/2020 Pain of foot 11/27/2016 08/30/2020 Encounter for screening colonoscopy 10/09/2016 08/30/2020 Overview: Added automatically from request for surgery [id number] Diarrhea 09/01/2013 08/30/2020 HTN (hypertension) 12/05/2011 10/14/2014 documented as of this encounter (statuses as of 01/02/2022) [facility] History of Past illness Narrative* Problem Noted Date Resolved Date Obesity, Class II, BMI 35-39.9 12/17/2018 0 08/30/2020 Obesity 12/14/2018 08/30/2020 Class 3 severe obesity with serious comorbidity and body mass index (BMI) of 40.0 to 44.9 in adult 08/19/2018 08/30/2020 Post-operative state 05/26/2018 08/30/2020 Contusion of leg, left, sequela 04/30/2017 08/30/2020 Pain of foot 11/27/2016 08/30/2020 Encounter for screening colonoscopy 10/09/2016 08/30/2020 Overview: Added automatically from request for surgery [id number] Diarrhea 09/01/2013 08/30/2020 HTN (hypertension) 12/05/2011 10/14/2014 documented as of this encounter (statuses as of 01/03/2022) [facility] History of Past illness Narrative* Problem Noted Date Resolved Date Obesity, Class II, BMI 35-39.9 12/17/2018 0 08/30/2020 Obesity 12/14/2018 08/30/2020 Class 3 severe obesity with serious comorbidity and body mass index (BMI) of 40.0 to 44.9 in adult 08/19/2018 08/30/2020 Post-operative state 05/26/2018 08/30/2020 Contusion of leg, left, sequela 04/30/2017 08/30/2020 Pain of foot 11/27/2016 08/30/2020 Encounter for screening colonoscopy 10/09/2016 08/30/2020 Overview: Added automatically from request for surgery [id number] Diarrhea 09/01/2013 08/30/2020 HTN (hypertension) 12/05/2011 10/14/2014 documented as of this encounter (statuses as of 01/29/2022) [facility] History of Past illness Narrative* Problem Noted Date Resolved Date Obesity, Class II, BMI 35-39.9 12/17/2018 0 08/30/2020 Obesity 12/14/2018 08/30/2020 Class 3 severe obesity with serious comorbidity and body mass index (BMI) of 40.0 to 44.9 in adult 08/19/2018 08/30/2020 Post-operative state 05/26/2018 08/30/2020 Contusion of leg, left, sequela 04/30/2017 08/30/2020 Pain of foot 11/27/2016 08/30/2020 Encounter for screening colonoscopy 10/09/2016 08/30/2020 Overview: Added automatically from request for surgery [id number] Diarrhea 09/01/2013 08/30/2020 HTN (hypertension) 12/05/2011 10/14/2014 documented as of this encounter (statuses as of 02/08/2022) [facility] History of Past illness Narrative* Problem Noted Date Resolved Date Obesity, Class II, BMI 35-39.9 12/17/2018 0 08/30/2020 Obesity 12/14/2018 08/30/2020 Class 3 severe obesity with serious comorbidity and body mass index (BMI) of 40.0 to 44.9 in adult 08/19/2018 08/30/2020 Post-operative state 05/26/2018 08/30/2020 Contusion of leg, left, sequela 04/30/2017 08/30/2020 Pain of foot 11/27/2016 08/30/2020 Encounter for screening colonoscopy 10/09/2016 08/30/2020 Overview: Added automatically from request for surgery [id number] Diarrhea 09/01/2013 08/30/2020 HTN (hypertension) 12/05/2011 10/14/2014 documented as of this encounter (statuses as of 02/10/2022) [place] [facility]-27-2019 History of Past illness Narrative* Problem Noted Date Resolved Date Obesity, Class II, BMI 35-39.9 12/17/2018 0 08/30/2020 Obesity 12/14/2018 08/30/2020 Class 3 severe obesity with serious comorbidity and body mass index (BMI) of 40.0 to 44.9 in adult 08/19/2018 08/30/2020 Post-operative state 05/26/2018 08/30/2020 Contusion of leg, left, sequela 04/30/2017 08/30/2020 Pain of foot 11/27/2016 08/30/2020 Encounter for screening colonoscopy 10/09/2016 08/30/2020 Overview: Added automatically from request for surgery [id number] Diarrhea 09/01/2013 08/30/2020 HTN (hypertension) 12/05/2011 10/14/2014 documented as of this encounter (statuses as of 02/11/2022) [facility] History of Past illness Narrative* Problem Noted Date Resolved Date Obesity, Class II, BMI 35-39.9 12/17/2018 0 08/30/2020 Obesity 12/14/2018 08/30/2020 Class 3 severe obesity with serious comorbidity and body mass index (BMI) of 40.0 to 44.9 in adult 08/19/2018 08/30/2020 Post-operative state 05/26/2018 08/30/2020 Contusion of leg, left, sequela 04/30/2017 08/30/2020 Pain of foot 11/27/2016 08/30/2020 Encounter for screening colonoscopy 10/09/2016 08/30/2020 Overview: Added automatically from request for surgery [id number] Diarrhea 09/01/2013 08/30/2020 HTN (hypertension) 12/05/2011 10/14/2014 documented as of this encounter (statuses as of 02/17/2022) [facility] History of Past illness Narrative* Problem Noted Date Resolved Date Obesity, Class II, BMI 35-39.9 12/17/2018 0 08/30/2020 Obesity 12/14/2018 08/30/2020 Class 3 severe obesity with serious comorbidity and body mass index (BMI) of 40.0 to 44.9 in adult 08/19/2018 08/30/2020 Post-operative state 05/26/2018 08/30/2020 Contusion of leg, left, sequela 04/30/2017 08/30/2020 Pain of foot 11/27/2016 08/30/2020 Encounter for screening colonoscopy 10/09/2016 08/30/2020 Overview: Added automatically from request for surgery [id number] Diarrhea 09/01/2013 08/30/2020 HTN (hypertension) 12/05/2011 10/14/2014 documented as of this encounter (statuses as of 02/18/2022) [facility] History of Past illness Narrative* Problem Noted Date Resolved Date Obesity, Class II, BMI 35-39.9 12/17/2018 0 08/30/2020 Obesity 12/14/2018 08/30/2020 Class 3 severe obesity with serious comorbidity and body mass index (BMI) of 40.0 to 44.9 in adult 08/19/2018 08/30/2020 Post-operative state 05/26/2018 08/30/2020 Contusion of leg, left, sequela 04/30/2017 08/30/2020 Pain of foot 11/27/2016 08/30/2020 Encounter for screening colonoscopy 10/09/2016 08/30/2020 Overview: Added automatically from request for surgery [id number] Diarrhea 09/01/2013 08/30/2020 HTN (hypertension) 12/05/2011 10/14/2014 documented as of this encounter (statuses as of 02/20/2022) [facility] History of Past illness Narrative* Problem Noted Date Resolved Date Obesity, Class II, BMI 35-39.9 12/17/2018 0 08/30/2020 Obesity 12/14/2018 08/30/2020 Class 3 severe obesity with serious comorbidity and body mass index (BMI) of 40.0 to 44.9 in adult 08/19/2018 08/30/2020 Post-operative state 05/26/2018 08/30/2020 Contusion of leg, left, sequela 04/30/2017 08/30/2020 Pain of foot 11/27/2016 08/30/2020 Encounter for screening colonoscopy 10/09/2016 08/30/2020 Overview: Added automatically from request for surgery [id number] Diarrhea 09/01/2013 08/30/2020 HTN (hypertension) 12/05/2011 10/14/2014 documented as of this encounter (statuses as of 02/21/2022) [facility] History of Past illness Narrative* Problem Noted Date Resolved Date Obesity, Class II, BMI 35-39.9 12/17/2018 0 08/30/2020 Obesity 12/14/2018 08/30/2020 Class 3 severe obesity with serious comorbidity and body mass index (BMI) of 40.0 to 44.9 in adult 08/19/2018 08/30/2020 Post-operative state 05/26/2018 08/30/2020 Contusion of leg, left, sequela 04/30/2017 08/30/2020 Pain of foot 11/27/2016 08/30/2020 Encounter for screening colonoscopy 10/09/2016 08/30/2020 Overview: Added automatically from request for surgery [id number] Diarrhea 09/01/2013 08/30/2020 HTN (hypertension) 12/05/2011 10/14/2014 documented as of this encounter (statuses as of 02/27/2022) [facility] History of Past illness Narrative* Problem Noted Date Resolved Date Obesity, Class II, BMI 35-39.9 12/17/2018 0 08/30/2020 Obesity 12/14/2018 08/30/2020 Class 3 severe obesity with serious comorbidity and body mass index (BMI) of 40.0 to 44.9 in adult 08/19/2018 08/30/2020 Post-operative state 05/26/2018 08/30/2020 Contusion of leg, left, sequela 04/30/2017 08/30/2020 Pain of foot 11/27/2016 08/30/2020 Encounter for screening colonoscopy 10/09/2016 08/30/2020 Overview: Added automatically from request for surgery [id number] Diarrhea 09/01/2013 08/30/2020 HTN (hypertension) 12/05/2011 10/14/2014 documented as of this encounter (statuses as of 03/04/2022) [facility] History of Past illness Narrative* Problem Noted Date Resolved Date Obesity, Class II, BMI 35-39.9 12/17/2018 0 08/30/2020 Obesity 12/14/2018 08/30/2020 Class 3 severe obesity with serious comorbidity and body mass index (BMI) of 40.0 to 44.9 in adult 08/19/2018 08/30/2020 Post-operative state 05/26/2018 08/30/2020 Contusion of leg, left, sequela 04/30/2017 08/30/2020 Pain of foot 11/27/2016 08/30/2020 Encounter for screening colonoscopy 10/09/2016 08/30/2020 Overview: Added automatically from request for surgery [id number] Diarrhea 09/01/2013 08/30/2020 HTN (hypertension) 12/05/2011 10/14/2014 documented as of this encounter (statuses as of 03/26/2022) [facility] History of Past illness Narrative* Problem Noted Date Resolved Date Obesity, Class II, BMI 35-39.9 12/17/2018 0 08/30/2020 Obesity 12/14/2018 08/30/2020 Class 3 severe obesity with serious comorbidity and body mass index (BMI) of 40.0 to 44.9 in adult 08/19/2018 08/30/2020 Post-operative state 05/26/2018 08/30/2020 Contusion of leg, left, sequela 04/30/2017 08/30/2020 Pain of foot 11/27/2016 08/30/2020 Encounter for screening colonoscopy 10/09/2016 08/30/2020 Overview: Added automatically from request for surgery [id number] Diarrhea 09/01/2013 08/30/2020 HTN (hypertension) 12/05/2011 10/14/2014 documented as of this encounter (statuses as of 04/11/2022) [facility] History of Past illness Narrative* Problem Noted Date Resolved Date Obesity, Class II, BMI 35-39.9 12/17/2018 0 08/30/2020 Obesity 12/14/2018 08/30/2020 Class 3 severe obesity with serious comorbidity and body mass index (BMI) of 40.0 to 44.9 in adult 08/19/2018 08/30/2020 Post-operative state 05/26/2018 08/30/2020 Contusion of leg, left, sequela 04/30/2017 08/30/2020 Pain of foot 11/27/2016 08/30/2020 Encounter for screening colonoscopy 10/09/2016 08/30/2020 Overview: Added automatically from request for surgery [id number] Diarrhea 09/01/2013 08/30/2020 HTN (hypertension) 12/05/2011 10/14/2014 documented as of this encounter (statuses as of 04/17/2022) [facility] History of Past illness Narrative* Problem Noted Date Resolved Date Obesity, Class II, BMI 35-39.9 12/17/2018 0 08/30/2020 Obesity 12/14/2018 08/30/2020 Class 3 severe obesity with serious comorbidity and body mass index (BMI) of 40.0 to 44.9 in adult 08/19/2018 08/30/2020 Post-operative state 05/26/2018 08/30/2020 Contusion of leg, left, sequela 04/30/2017 08/30/2020 Pain of foot 11/27/2016 08/30/2020 Encounter for screening colonoscopy 10/09/2016 08/30/2020 Overview: Added automatically from request for surgery [id number] Diarrhea 09/01/2013 08/30/2020 HTN (hypertension) 12/05/2011 10/14/2014 documented as of this encounter (statuses as of 04/18/2022) [facility] History of Past illness Narrative* Problem Noted Date Resolved Date Obesity, Class II, BMI 35-39.9 12/17/2018 0 08/30/2020 Obesity 12/14/2018 08/30/2020 Class 3 severe obesity with serious comorbidity and body mass index (BMI) of 40.0 to 44.9 in adult 08/19/2018 08/30/2020 Post-operative state 05/26/2018 08/30/2020 Contusion of leg, left, sequela 04/30/2017 08/30/2020 Pain of foot 11/27/2016 08/30/2020 Encounter for screening colonoscopy 10/09/2016 08/30/2020 Overview: Added automatically from request for surgery [id number] Diarrhea 09/01/2013 08/30/2020 HTN (hypertension) 12/05/2011 10/14/2014 documented as of this encounter (statuses as of 04/23/2022) [facility] History of Past illness Narrative* Problem Noted Date Resolved Date Obesity, Class II, BMI 35-39.9 12/17/2018 0 08/30/2020 Obesity 12/14/2018 08/30/2020 Class 3 severe obesity with serious comorbidity and body mass index (BMI) of 40.0 to 44.9 in adult 08/19/2018 08/30/2020 Post-operative state 05/26/2018 08/30/2020 Contusion of leg, left, sequela 04/30/2017 08/30/2020 Pain of foot 11/27/2016 08/30/2020 Encounter for screening colonoscopy 10/09/2016 08/30/2020 Overview: Added automatically from request for surgery [id number] Diarrhea 09/01/2013 08/30/2020 HTN (hypertension) 12/05/2011 10/14/2014 documented as of this encounter (statuses as of 04/23/2022) [facility] of Past illness Narrative* Problem Noted Date Resolved Date Obesity, Class II, BMI 35-39.9 12/17/2018 0 08/30/2020 Obesity 12/14/2018 08/30/2020 Class 3 severe obesity with serious comorbidity and body mass index (BMI) of 40.0 to 44.9 in adult 08/19/2018 08/30/2020 Post-operative state 05/26/2018 08/30/2020 Contusion of leg, left, sequela 04/30/2017 08/30/2020 Pain of foot 11/27/2016 08/30/2020 Encounter for screening colonoscopy 10/09/2016 08/30/2020 Overview: Added automatically from request for surgery [id number] Diarrhea 09/01/2013 08/30/2020 HTN (hypertension) 12/05/2011 10/14/2014 documented as of this encounter (statuses as of 04/28/2022) [facility] History of Past illness Narrative* Problem Noted Date Resolved Date Obesity, Class II, BMI 35-39.9 12/17/2018 0 08/30/2020 Obesity 12/14/2018 08/30/2020 Class 3 severe obesity with serious comorbidity and body mass index (BMI) of 40.0 to 44.9 in adult 08/19/2018 08/30/2020 Post-operative state 05/26/2018 08/30/2020 Contusion of leg, left, sequela 04/30/2017 08/30/2020 Pain of foot 11/27/2016 08/30/2020 Encounter for screening colonoscopy 10/09/2016 08/30/2020 Overview: Added automatically from request for surgery [id number] Diarrhea 09/01/2013 08/30/2020 HTN (hypertension) 12/05/2011 10/14/2014 documented as of this encounter (statuses as of 05/02/2022) [facility] History of Past illness Narrative* Problem Noted Date Resolved Date Obesity, Class II, BMI 35-39.9 12/17/2018 0 08/30/2020 Obesity 12/14/2018 08/30/2020 Class 3 severe obesity with serious comorbidity and body mass index (BMI) of 40.0 to 44.9 in adult 08/19/2018 08/30/2020 Post-operative state 05/26/2018 08/30/2020 Contusion of leg, left, sequela 04/30/2017 08/30/2020 Pain of foot 11/27/2016 08/30/2020 Encounter for screening colonoscopy 10/09/2016 08/30/2020 Overview: Added automatically from request for surgery [id number] Diarrhea 09/01/2013 08/30/2020 HTN (hypertension) 12/05/2011 10/14/2014 documented as of this encounter (statuses as of 05/12/2022) [facility] History of Past illness Narrative* Problem Noted Date Resolved Date Obesity, Class II, BMI 35-39.9 12/17/2018 0 08/30/2020 Obesity 12/14/2018 08/30/2020 Class 3 severe obesity with serious comorbidity and body mass index (BMI) of 40.0 to 44.9 in adult 08/19/2018 08/30/2020 Post-operative state 05/26/2018 08/30/2020 Coronary artery disease 10/28/2017 05/12/19 Contusion of leg, left, sequela 04/30/2017 08/30/2020 Pain of foot 11/27/2016 08/30/2020 Encounter for screening colonoscopy 10/09/2016 08/30/2020 Overview: Added automatically from request for surgery [id number] Diarrhea 09/01/2013 08/30/2020 HTN (hypertension) 12/05/2011 10/14/2014 documented as of this encounter (statuses as of 05/12/2022) [facility] History of Past illness Narrative* Problem Noted Date Resolved Date Obesity, Class II, BMI 35-39.9 12/17/2018 0 08/30/2020 Obesity 12/14/2018 08/30/2020 Class 3 severe obesity with serious comorbidity and body mass index (BMI) of 40.0 to 44.9 in adult 08/19/2018 08/30/2020 Post-operative state 05/26/2018 08/30/2020 Coronary artery disease 10/28/2017 05/12/19 23 Contusion of leg, left, sequela 04/30/2017 08/30/2020 Pain of foot 11/27/2016 08/30/2020 Encounter for screening colonoscopy 10/09/2016 08/30/2020 Overview: Added automatically from request for surgery [id number] Diarrhea 09/01/2013 08/30/2020 HTN (hypertension) 12/05/2011 10/14/2014 documented as of this encounter (statuses as of 05/13/2022) [facility] History of Past illness Narrative* Problem Noted Date Resolved Date Obesity, Class II, BMI 35-39.9 12/17/2018 0 08/30/2020 Obesity 12/14/2018 08/30/2020 Class 3 severe obesity with serious comorbidity and body mass index (BMI) of 40.0 to 44.9 in adult 08/19/2018 08/30/2020 Post-operative state 05/26/2018 08/30/2020 Coronary artery disease 10/28/2017 05/12/19 23 Contusion of leg, left, sequela 04/30/2017 08/30/2020 Pain of foot 11/27/2016 08/30/2020 Encounter for screening colonoscopy 10/09/2016 08/30/2020 Overview: Added automatically from request for surgery [id number] Diarrhea 09/01/2013 08/30/2020 HTN (hypertension) 12/05/2011 10/14/2014 documented as of this encounter (statuses as of 05/27/2022) [facility] History of Past illness Narrative* Problem Noted Date Resolved Date Obesity, Class II, BMI 35-39.9 12/17/2018 0 08/30/2020 Obesity 12/14/2018 08/30/2020 Class 3 severe obesity with serious comorbidity and body mass index (BMI) of 40.0 to 44.9 in adult 08/19/2018 08/30/2020 Post-operative state 05/26/2018 08/30/2020 Coronary artery disease 10/28/2017 05/12/19 23 Contusion of leg, left, sequela 04/30/2017 08/30/2020 Pain of foot 11/27/2016 08/30/2020 Encounter for screening colonoscopy 10/09/2016 08/30/2020 Overview: Added automatically from request for surgery [id number] Diarrhea 09/01/2013 08/30/2020 HTN (hypertension) 12/05/2011 10/14/2014 documented as of this encounter (statuses as of 05/28/2022) [facility] History of Past illness Narrative* Problem Noted Date Resolved Date Obesity, Class II, BMI 35-39.9 12/17/2018 0 08/30/2020 Obesity 12/14/2018 08/30/2020 Class 3 severe obesity with serious comorbidity and body mass index (BMI) of 40.0 to 44.9 in adult 08/19/2018 08/30/2020 Post-operative state 05/26/2018 08/30/2020 Coronary artery disease 10/28/2017 05/12/19 23 Contusion of leg, left, sequela 04/30/2017 08/30/2020 Pain of foot 11/27/2016 08/30/2020 Encounter for screening colonoscopy 10/09/2016 08/30/2020 Overview: Added automatically from request for surgery [id number] Diarrhea 09/01/2013 08/30/2020 HTN (hypertension) 12/05/2011 10/14/2014 documented as of this encounter (statuses as of 05/29/2022) [facility] History of Past illness Narrative* Problem Noted Date Resolved Date Obesity, Class II, BMI 35-39.9 12/17/2018 0 08/30/2020 Obesity 12/14/2018 08/30/2020 Class 3 severe obesity with serious comorbidity and body mass index (BMI) of 40.0 to 44.9 in adult 08/19/2018 08/30/2020 Post-operative state 05/26/2018 08/30/2020 Coronary artery disease 10/28/2017 05/12/19 23 Contusion of leg, left, sequela 04/30/2017 08/30/2020 Pain of foot 11/27/2016 08/30/2020 Encounter for screening colonoscopy 10/09/2016 08/30/2020 Overview: Added automatically from request for surgery [id number] Diarrhea 09/01/2013 08/30/2020 HTN (hypertension) 12/05/2011 10/14/2014 documented as of this encounter (statuses as of 05/30/2022) [facility] History of Past illness Narrative* Problem Noted Date Resolved Date Obesity, Class II, BMI 35-39.9 12/17/2018 0 08/30/2020 Obesity 12/14/2018 08/30/2020 Class 3 severe obesity with serious comorbidity and body mass index (BMI) of 40.0 to 44.9 in adult 08/19/2018 08/30/2020 Post-operative state 05/26/2018 08/30/2020 Coronary artery disease 10/28/2017 05/12/19 23 Contusion of leg, left, sequela 04/30/2017 08/30/2020 Pain of foot 11/27/2016 08/30/2020 Encounter for screening colonoscopy 10/09/2016 08/30/2020 Overview: Added automatically from request for surgery [id number] Diarrhea 09/01/2013 08/30/2020 HTN (hypertension) 12/05/2011 10/14/2014 documented as of this encounter (statuses as of 06/03/2022) [facility] History of Past illness Narrative* Problem Noted Date Resolved Date Obesity, Class II, BMI 35-39.9 12/17/2018 0 08/30/2020 Obesity 12/14/2018 08/30/2020 Class 3 severe obesity with serious comorbidity and body mass index (BMI) of 40.0 to 44.9 in adult 08/19/2018 08/30/2020 Post-operative state 05/26/2018 08/30/2020 Coronary artery disease 10/28/2017 05/12/19 23 Contusion of leg, left, sequela 04/30/2017 08/30/2020 Pain of foot 11/27/2016 08/30/2020 Encounter for screening colonoscopy 10/09/2016 08/30/2020 Overview: Added automatically from request for surgery [id number] Diarrhea 09/01/2013 08/30/2020 HTN (hypertension) 12/05/2011 10/14/2014 documented as of this encounter (statuses as of 06/09/2022) [facility] History of Past illness Narrative* Problem Noted Date Resolved Date Obesity, Class II, BMI 35-39.9 12/17/2018 0 08/30/2020 Obesity 12/14/2018 08/30/2020 Class 3 severe obesity with serious comorbidity and body mass index (BMI) of 40.0 to 44.9 in adult 08/19/2018 08/30/2020 Post-operative state 05/26/2018 08/30/2020 Coronary artery disease 10/28/2017 05/12/19 23 Contusion of leg, left, sequela 04/30/2017 08/30/2020 Pain of foot 11/27/2016 08/30/2020 Encounter for screening colonoscopy 10/09/2016 08/30/2020 Overview: Added automatically from request for surgery [id number] Diarrhea 09/01/2013 08/30/2020 HTN (hypertension) 12/05/2011 10/14/2014 documented as of this encounter (statuses as of 06/10/2022) [facility] History of Past illness Narrative* Problem Noted Date Resolved Date Obesity, Class II, BMI 35-39.9 12/17/2018 0 08/30/2020 Obesity 12/14/2018 08/30/2020 Class 3 severe obesity with serious comorbidity and body mass index (BMI) of 40.0 to 44.9 in adult 08/19/2018 08/30/2020 Post-operative state 05/26/2018 08/30/2020 Coronary artery disease 10/28/2017 05/12/19 23 Contusion of leg, left, sequela 04/30/2017 08/30/2020 Pain of foot 11/27/2016 08/30/2020 Encounter for screening colonoscopy 10/09/2016 08/30/2020 Overview: Added automatically from request for surgery [id number] Diarrhea 09/01/2013 08/30/2020 HTN (hypertension) 12/05/2011 10/14/2014 documented as of this encounter (statuses as of 06/11/2022) [facility] History of Past illness Narrative* Problem Noted Date Resolved Date Obesity, Class II, BMI 35-39.9 12/17/2018 0 08/30/2020 Obesity 12/14/2018 08/30/2020 Class 3 severe obesity with serious comorbidity and body mass index (BMI) of 40.0 to 44.9 in adult 08/19/2018 08/30/2020 Post-operative state 05/26/2018 08/30/2020 Coronary artery disease 10/28/2017 05/12/19 23 Contusion of leg, left, sequela 04/30/2017 08/30/2020 Pain of foot 11/27/2016 08/30/2020 Encounter for screening colonoscopy 10/09/2016 08/30/2020 Overview: Added automatically from request for surgery [id number] Diarrhea 09/01/2013 08/30/2020 HTN (hypertension) 12/05/2011 10/14/2014 documented as of this encounter (statuses as of 06/13/2022) [facility] History of Past illness Narrative* Problem Noted Date Resolved Date Obesity, Class II, BMI 35-39.9 12/17/2018 0 08/30/2020 Obesity 12/14/2018 08/30/2020 Class 3 severe obesity with serious comorbidity and body mass index (BMI) of 40.0 to 44.9 in adult 08/19/2018 08/30/2020 Post-operative state 05/26/2018 08/30/2020 Coronary artery disease 10/28/2017 05/12/19 23 Contusion of leg, left, sequela 04/30/2017 08/30/2020 Pain of foot 11/27/2016 08/30/2020 Encounter for screening colonoscopy 10/09/2016 08/30/2020 Overview: Added automatically from request for surgery [id number] Diarrhea 09/01/2013 08/30/2020 HTN (hypertension) 12/05/2011 10/14/2014 documented as of this encounter (statuses as of 06/18/2022) [facility] History of Past illness Narrative* Problem Noted Date Resolved Date Obesity, Class II, BMI 35-39.9 12/17/2018 0 08/30/2020 Obesity 12/14/2018 08/30/2020 Class 3 severe obesity with serious comorbidity and body mass index (BMI) of 40.0 to 44.9 in adult 08/19/2018 08/30/2020 Post-operative state 05/26/2018 08/30/2020 Coronary artery disease 10/28/2017 05/12/19 23 Contusion of leg, left, sequela 04/30/2017 08/30/2020 Pain of foot 11/27/2016 08/30/2020 Encounter for screening colonoscopy 10/09/2016 08/30/2020 Overview: Added automatically from request for surgery [id number] Diarrhea 09/01/2013 08/30/2020 HTN (hypertension) 12/05/2011 10/14/2014 documented as of this encounter (statuses as of 06/23/2022) [facility] History of Past illness Narrative* Problem Noted Date Resolved Date Obesity, Class II, BMI 35-39.9 12/17/2018 0 08/30/2020 Obesity 12/14/2018 08/30/2020 Class 3 severe obesity with serious comorbidity and body mass index (BMI) of 40.0 to 44.9 in adult 08/19/2018 08/30/2020 Post-operative state 05/26/2018 08/30/2020 Coronary artery disease 10/28/2017 05/12/19 23 Contusion of leg, left, sequela 04/30/2017 08/30/2020 Pain of foot 11/27/2016 08/30/2020 Encounter for screening colonoscopy 10/09/2016 08/30/2020 Overview: Added automatically from request for surgery [id number] Diarrhea 09/01/2013 08/30/2020 HTN (hypertension) 12/05/2011 10/14/2014 documented as of this encounter (statuses as of 06/25/2022) [facility] History of Past illness Narrative* Problem Noted Date Diagnosed Date Resolved Date Obesity, Class II, BMI 35-39.9 12/17/2018 08/30/2020 Obesity 12/14/2018 08/30/2020 Class 3 severe obesity with serious comorbidity and body mass index (BMI) of 40.0 to 44.9 in adult 08/19/2018 08/30/2020 Post-operative state 05/26/2018 021 Coronary artery disease 10/28/201704/24 Contusion of leg, left, sequela 04/30/2017 08/30/2020 Pain of foot 11/27/2016 08/30/2020 Encounter for screening colonoscopy 10/09/2016 08/30/2020 Overview: Added automatically from request for surgery [id number] Diarrhea 09/01/2013 08/30/2020 HTN (hypertension) 12/05/2011 5 documented as of this encounter (statuses as of 01/25/2023) [facility] History of Past illness Narrative* Problem Noted Date Diagnosed Date Resolved Date Obesity, Class II, BMI 35-39.9 12/17/2018 08/30/2020 Obesity 12/14/2018 08/30/2020 Class 3 severe obesity with serious comorbidity and body mass index (BMI) of 40.0 to 44.9 in adult 08/19/2018 08/30/2020 Post-operative state 05/26/2018 021 Coronary artery disease 10/28/201704/24 Contusion of leg, left, sequela 04/30/2017 08/30/2020 Pain of foot 11/27/2016 08/30/2020 Encounter for screening colonoscopy 10/09/2016 08/30/2020 Overview: Added automatically from request for surgery [id number] Diarrhea 09/01/2013 08/30/2020 HTN (hypertension) 12/05/2011 5 documented as of this encounter (statuses as of 01/25/2023) [facility] History of Past illness Narrative* Problem Noted Date Diagnosed Date Resolved Date Obesity, Class II, BMI 35-39.9 12/17/2018 08/30/2020 Obesity 12/14/2018 08/30/2020 Class 3 severe obesity with serious comorbidity and body mass index (BMI) of 40.0 to 44.9 in adult 08/19/2018 08/30/2020 Post-operative state 05/26/2018 021 Coronary artery disease 10/28/201704/24 Contusion of leg, left, sequela 04/30/2017 08/30/2020 Pain of foot 11/27/2016 08/30/2020 Encounter for screening colonoscopy 10/09/2016 08/30/2020 Overview: Added automatically from request for surgery [id number] Diarrhea 09/01/2013 08/30/2020 HTN (hypertension) 12/05/2011 5 documented as of this encounter (statuses as of 01/25/2023) [facility] Evaluation + Plan note Future Appointments Appointment Date:04/14/2023 02:30:00 PM Scheduled Provider:RAFI EGAN MD Location:PLASTICS Appointment Type:PS OV Post Op [facility] Surgery Evaluation note* Diagnosis Essential hypertension- Primary Unspecified essential hypertension Type 2 diabetes mellitus with stage 3 chronic kidney disease, without long-term current use of insulin, unspecified whether stage 3a or 3b CKD (HCC) Hypothyroidism, unspecified type Mixed hyperlipidemia Pain of finger of left hand Pain in limb Cracked lips Diseases of lips Gastroesophageal reflux disease, unspecified whether esophagitis present Anemia, unspecified type Chronic right-sided low back pain without sciatica documented in this encounter [facility] note* Diagnosis Hyponatremia- Primary Hyposmolality and/or hyponatremia Elevated liver enzymes Other nonspecific abnormal serum enzyme levels [facility] Diagnosis Elevated liver enzymes Other nonspecific abnormal serum enzyme levels [facility] Diagnosis Intertrigo- Primary Other specified erythematous condition Generalized postprandial abdominal pain Abdominal pain, generalized Other specified hypothyroidism Moderate episode of recurrent major depressive disorder (HCC) [facility] Diagnosis Chronic pain of right knee [facility] Diagnosis Acute muscle stiffness of neck- Primary [facility] Diagnosis Chronic pain of right knee- Primary Other secondary osteoarthritis of both hands Pain of right hand Pain in limb Pain of left hand Pain in limb [facility] Diagnosis Hyponatremia- Primary Hyposmolality and/or hyponatremia [facility] Diagnosis Hip fracture requiring operative repair, right, sequela- Primary Anemia, unspecified type Hyponatremia Hyposmolality and/or hyponatremia [facility] Diagnosis Pain Generalized pain Chronic pain of right knee [facility] Diagnosis Chronic pain of right knee- Primary Hip fracture requiring operative repair, right, closed, initial encounter (HCC) Closed displaced fracture of right femoral neck (HCC) [facility] Diagnosis History of partial knee replacement- Primary [facility] Diagnosis Closed displaced fracture of right femoral neck (HCC)- Primary Hip fracture requiring operative repair, right, closed, initial encounter (HCC) [facility]* Diagnosis Hip fracture requiring operative repair, right, closed, initial encounter (HCC) [facility]* Diagnosis Inconclusive mammogram- Primary [facility]* Diagnosis History of colonic polyps- Primary Personal history of colonic polyps History of anemia Personal history of diseases of blood and blood-forming organs Gastritis without bleeding, unspecified chronicity, unspecified gastritis type [facility] Diagnosis History of anemia- Primary Personal history of diseases of blood and blood-forming organs Screening for colon cancer Special screening for malignant neoplasms, colon History of gastritis Personal history of other diseases of digestive system 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 [facility] Diagnosis 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 [facility] Diagnosis 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 Bariatric surgery status 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 [facility] Diagnosis Acute cough- Primary 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 [facility] Diagnosis Nausea Nausea alone 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 [facility] Diagnosis History of colonic polyps- Primary Personal history of colonic polyps GERD without esophagitis Esophageal reflux 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 [facility]* Diagnosis Fatigue, unspecified type- Primary 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 [facility] Diagnosis Hip fracture requiring operative repair, right, closed, initial encounter ([facility])- Primary 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 Encounter for screening for COVID-19 documented [facility] Diagnosis Chronic pain of right knee- Primary 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 Encounter for screening for COVID-19 Chronic pain of right knee History of partial knee replacement [facility] Diagnosis Preop examination- Primary Preoperative examination, unspecified Essential hypertension Unspecified essential hypertension MARIBEL (obstructive sleep apnea) Obstructive sleep apnea (adult) (pediatric) Mild intermittent asthma 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 Unspecified asthma Hypothyroidism, unspecified type Type 2 diabetes mellitus with stage 3 chronic kidney disease, without long-term current use of insulin, unspecified whether stage 3a or 3b CKD (HCC) Stage 3 chronic kidney disease, unspecified whether stage 3a or 3b CKD (HCC) 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 Encounter for screening for COVID-19 Chronic pain of right knee History of partial knee replacement [facility] Diagnosis Preoperative examination- Primary Preoperative examination, unspecified Essential hypertension Unspecified essential hypertension Mixed hyperlipidemia MARIBEL (obstructive sleep apnea) Obstructive sleep apnea (adult) (pediatric) Mild intermittent asthma 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 Unspecified asthma GERD without esophagitis Esophageal reflux S/P gastric bypass Bariatric surgery status Stage 3 chronic kidney disease, unspecified whether stage 3a or 3b CKD (HCC) Hypothyroidism, unspecified type Type 2 diabetes mellitus with stage 3 chronic kidney disease, without long-term current use of insulin, unspecified whether stage 3a or 3b CKD (HCC) Moderate episode of recurrent major depressive disorder ([facility]) Encounter for screening for COVID-19 Chronic pain of right knee History of partial knee replacement documented in this encounter [facility] note* Diagnosis Presence of right artificial hip joint Hip joint replacement by other means Post-traumatic osteoarthritis of right hip Secondary localized osteoarthrosis, pelvic region and thigh Encounter for screening for COVID-19 Chronic pain of right knee History of partial knee replacement [facility] Diagnosis Presence of right artificial hip joint- Primary Hip joint replacement by other means Post-traumatic osteoarthritis of right hip Secondary localized osteoarthrosis, pelvic region and thigh Encounter for screening for COVID-19 Chronic pain of right hip Primary osteoarthritis of right hip Primary localized osteoarthrosis, pelvic region and thigh [facility], initial encounter- Primary Encounter for screening for COVID-19 Chronic pain of right hip Primary osteoarthritis of right hip Primary localized osteoarthrosis, pelvic region and thigh [facility] Diagnosis Presence of right artificial hip joint- Primary Hip joint replacement by other means Encounter for screening for COVID-19 Chronic pain of right hip Primary osteoarthritis of right hip Primary localized osteoarthrosis, pelvic region and thigh [facility] Diagnosis Presence of right artificial hip joint Hip joint replacement by other means Chronic pain of right hip Primary osteoarthritis of right hip Primary localized osteoarthrosis, pelvic region and thigh documented in this encounter [facility] [facility]* Diagnosis Preoperative examination- Primary Preoperative examination, unspecified 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, unspecified whether longterm insulin use ([facility]) Essential hypertension Unspecified essential hypertension Mixed hyperlipidemia Mild intermittent asthma 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 Unspecified asthma MARIBEL (obstructive sleep apnea) Obstructive sleep apnea (adult) (pediatric) Irritable bowel syndrome with diarrhea Irritable bowel syndrome GERD without esophagitis Esophageal reflux S/P gastric bypass Bariatric surgery status Stage 3 chronic kidney disease, unspecified whether stage 3a or 3b CKD ([facility]) Renal lesion Unspecified disorder of kidney and ureter Hypothyroidism, unspecified type Moderate episode of recurrent major depressive disorder ([facility]) Primary osteoarthritis of right hip Primary localized osteoarthrosis, pelvic region and thigh [facility] Diagnosis Pain in right hip- Primary Pain in joint, pelvic region and thigh [facility] Diagnosis Status post right hip replacement- Primary Hip joint replacement by other means [facility] Diagnosis Elevated platelet count- Primary Essential thrombocythemia [facility] History of partial knee replacement History of partial knee replacement Chronic pain of right knee Primary osteoarthritis of right knee Primary localized osteoarthrosis, lower leg documented in this encounter [facility]* Diagnosis Chronic pain of right knee- Primary [facility]* Diagnosis Right calf pain- Primary Status post right knee replacement [facility]* Diagnosis Stiffness of right knee- Primary [facility]* Diagnosis S/P total knee arthroplasty, right [facility]* Diagnosis Acute pain of right knee- Primary Stiffness of right knee Difficulty walking Difficulty in walking Localized edema Edema [facility]* Diagnosis Allodynia- Primary Disturbance of skin sensation documented in this encounter [facility] note* Diagnosis Acute pain of right knee- Primary Stiffness of right knee Difficulty walking Difficulty in walking Localized edema Edema [facility]* Diagnosis Acute pain of right knee- Primary Stiffness of right knee Difficulty walking Difficulty in walking Localized edema Edema [facility]* Diagnosis S/P total knee arthroplasty, right- Primary [facility]* Diagnosis S/P total knee arthroplasty, right [facility]* Diagnosis Acute pain of right knee- Primary Stiffness of right knee Difficulty walking Difficulty in walking Localized edema Edema [facility]* Diagnosis Preoperative clearance- Primary Preoperative examination, unspecified Excessive skin and subcutaneous tissue [facility]* Diagnosis Chronic pain of right knee- Primary [facility]* Diagnosis Acute pain of right knee- Primary Stiffness of right knee Difficulty walking Difficulty in walking Localized edema Edema [facility]* Diagnosis Anemia, unspecified type- Primary Hyponatremia Hyposmolality and/or hyponatremia [facility] Diagnosis Essential hypertension Unspecified essential hypertension [facility]* Diagnosis Stiffness of right knee- Primary Status post right knee replacement [facility]* Diagnosis Acute pain of right knee- Primary Stiffness of right knee Difficulty walking Difficulty in walking Localized edema Edema [facility]* Diagnosis Gastroesophageal reflux disease, unspecified whether esophagitis present [facility]* Diagnosis Encounter for screening mammogram for breast cancer [facility]* Diagnosis Right calf pain Status post right knee replacement documented in this encounter [facility] note* Diagnosis Screening for colon cancer- Primary Special screening for malignant neoplasms, colon History of anemia Personal history of diseases of blood and blood-forming organs Gastritis without bleeding, unspecified chronicity, unspecified gastritis type History of colonic polyps Personal history of colonic polyps documented in this encounter [facility] note* Diagnosis Inconclusive mammogram documented in this encounter [facility] note* Diagnosis Radicular pain Neuralgia, neuritis, and radiculitis, unspecified documented in this encounter [facility] note* Diagnosis Pain in right wrist- Primary Pain in joint, forearm documented in this encounter [facility] note* Diagnosis Pain in right wrist Pain in joint, forearm [facility]* Diagnosis Pain of ulnar side of wrist- Primary 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 documented in this encounter [facility] note* Diagnosis Encounter for screening mammogram for breast cancer documented in this encounter [facility] note* Diagnosis Renal insufficiency- Primary Unspecified disorder of kidney and ureter documented in this encounter [facility] note* Diagnosis Generalized postprandial abdominal pain Abdominal pain, generalized documented in this encounter [facility] note* Diagnosis OPENED IN ERROR- Primary To allow closing an encounter opened in error (used in Smart[employer]) documented in this encounter [facility] note* Diagnosis Pain of ulnar side of wrist- Primary documented in this encounter [facility] note* Diagnosis SBO (small bowel obstruction) (HCC)- Primary Unspecified intestinal obstruction Acute cystitis without hematuria Acute cystitis Pancreatic cyst Cyst and pseudocyst of pancreas Moderate episode of recurrent major depressive disorder (HCC) Type 2 diabetes mellitus with stage 3 chronic kidney disease, without long-term current use of insulin, unspecified whether stage 3a or 3b CKD (HCC) * Assessment & Plan Note - Christine Morgan APRN.CNP - 08/05/2023 5:27 PM EDT Associated Problem(s): Moderate episode of recurrent major depressive disorder (HCC) Stable based upon symptoms and exam. Continue current treatment plan and follow up at least yearly. * Assessment & Plan Note - Christine Morgan APRN.CNP - 08/05/2023 5:27 PM EDT Associated Problem(s): Type 2 diabetes mellitus with stage 3 chronic kidney disease, without long-term current use of insulin (HCC) Stable based upon symptoms and exam. Continue current treatment plan and follow up at least yearly. [facility]* Diagnosis S/P laparoscopy with lysis of adhesions- Primary Internal hernia Hernia of other specified sites of abdominal cavity without mention of obstruction or gangrene Hx SBO Personal history of other diseases of digestive system [facility]* Diagnosis Pain of ulnar side of wrist- Primary [facility]* Diagnosis Right wrist pain- Primary Pain in joint, forearm Ulnar impaction syndrome, right Controlled type 2 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, without long-term current use of insulin (HCC)- Primary [facility]* Diagnosis Controlled type 2 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, without long-term current use of insulin (HCC)- Primary Type 2 diabetes mellitus with stage 3 chronic kidney disease, without long-term current use of insulin, unspecified whether stage 3a or 3b CKD (HCC) [facility]* Diagnosis Other specified hypothyroidism Gastroesophageal reflux disease, unspecified whether esophagitis present Essential hypertension Unspecified essential hypertension [facility] this [facility]* Diagnosis Closed nondisplaced fracture of proximal phalanx of lesser toe of right foot, initial encounter- Primary Contusion of fifth toe documented in this encounter [facility]* Diagnosis Moderate episode of recurrent major depressive disorder (HCC) Generalized postprandial abdominal pain Abdominal pain, generalized [facility]* Diagnosis Fall, initial encounter- Primary Pain of right hip Rib pain on right side Chest pain, unspecified Fall, initial encounter Rib pain on right side Chest pain, unspecified Pain of right hip documented [facility] this [facility]* Diagnosis Controlled type 2 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, without long-term current use of insulin (HCC)- Primary [facility]* Diagnosis Pain of ulnar side of wrist- Primary [facility] this [facility]* Diagnosis 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 Pelvic pain documented in this encounter [facility] note* Diagnosis Preop examination- Primary Preoperative examination, unspecified Essential hypertension Unspecified essential hypertension MARIBEL (obstructive sleep apnea) Obstructive sleep apnea (adult) (pediatric) Mild intermittent asthma 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 Unspecified asthma Hypothyroidism, unspecified type Type 2 diabetes mellitus with stage 3 chronic kidney disease, without long-term current use of insulin, unspecified whether stage 3a or 3b CKD (HCC) Stage 3 chronic kidney disease, unspecified whether stage 3a or 3b CKD (HCC) Preoperative examination- Primary Preoperative examination, unspecified Essential hypertension Unspecified essential hypertension Mixed hyperlipidemia MARIBEL (obstructive sleep apnea) Obstructive sleep apnea (adult) (pediatric) Mild intermittent asthma 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 Unspecified asthma GERD without esophagitis Esophageal reflux S/P gastric bypass Bariatric surgery status Stage 3 chronic kidney disease, unspecified whether stage 3a or 3b CKD (HCC) Hypothyroidism, unspecified type Type 2 diabetes mellitus with stage 3 chronic kidney disease, without long-term current use of insulin, unspecified whether stage 3a or 3b CKD (HCC) Moderate episode of recurrent major depressive disorder (HCC) Preoperative examination- Primary Preoperative examination, unspecified 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, 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) Essential hypertension Unspecified essential hypertension Mixed hyperlipidemia Mild intermittent asthma 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 Unspecified asthma MARIBEL (obstructive sleep apnea) Obstructive sleep apnea (adult) (pediatric) Irritable bowel syndrome with diarrhea Irritable bowel syndrome GERD without esophagitis Esophageal reflux S/P gastric bypass Bariatric surgery status Stage 3 chronic kidney disease, unspecified whether stage 3a or 3b CKD (HCC) Renal lesion Unspecified disorder of kidney and ureter Hypothyroidism, unspecified type Moderate episode of recurrent major depressive disorder (HCC) Pre-operative examination- Primary Preoperative examination, unspecified Mild intermittent asthma 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 Unspecified asthma Essential hypertension Unspecified essential hypertension GERD without esophagitis Esophageal reflux Mixed hyperlipidemia Hypothyroidism, unspecified type Irritable bowel syndrome with diarrhea Irritable bowel syndrome Moderate episode of recurrent major depressive disorder (HCC) MARIBEL (obstructive sleep apnea) Obstructive sleep apnea (adult) (pediatric) S/P gastric bypass Bariatric surgery status Renal lesion Unspecified disorder of kidney and ureter Stage 3 chronic kidney disease, unspecified whether stage 3a or 3b CKD (HCC) 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, unspecified whether longterm insulin use (HCC) Hyponatremia Hyposmolality and/or hyponatremia History of total hip replacement, right History of total knee replacement, left Coronary artery disease involving blackfeet coronary artery of blackfeet heart without angina pectoris Urinary tract infection without hematuria, site unspecified SBO (small bowel obstruction) (HCC)- Primary Unspecified intestinal obstruction Acute cystitis without hematuria Acute cystitis Pancreatic cyst Cyst and pseudocyst of pancreas Moderate episode of recurrent major depressive disorder (HCC) Type 2 diabetes mellitus with stage 3 chronic kidney disease, without long-term current use of insulin, unspecified whether stage 3a or 3b CKD (HCC) Moderate episode of recurrent major depressive disorder (HCC) documented [facility]* Diagnosis Preop examination- Primary Preoperative examination, unspecified Essential hypertension Unspecified essential hypertension MARIBEL (obstructive sleep apnea) Obstructive sleep apnea (adult) (pediatric) Mild intermittent asthma 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 Unspecified asthma Hypothyroidism, unspecified type Type 2 diabetes mellitus with stage 3 chronic kidney disease, without long-term current use of insulin, unspecified whether stage 3a or 3b CKD (HCC) Stage 3 chronic kidney disease, unspecified whether stage 3a or 3b CKD (HCC) Preoperative examination- Primary Preoperative examination, unspecified Essential hypertension Unspecified essential hypertension Mixed hyperlipidemia MARIBEL (obstructive sleep apnea) Obstructive sleep apnea (adult) (pediatric) Mild intermittent asthma 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 Unspecified asthma GERD without esophagitis Esophageal reflux S/P gastric bypass Bariatric surgery status Stage 3 chronic kidney disease, unspecified whether stage 3a or 3b CKD (HCC) Hypothyroidism, unspecified type Type 2 diabetes mellitus with stage 3 chronic kidney disease, without long-term current use of insulin, unspecified whether stage 3a or 3b CKD (HCC) Moderate episode of recurrent major depressive disorder (HCC) Preoperative examination- Primary Preoperative examination, unspecified 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, unspecified whether longterm insulin use (HCC) Essential hypertension Unspecified essential hypertension Mixed hyperlipidemia Mild intermittent asthma 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 Unspecified asthma MARIBEL (obstructive sleep apnea) Obstructive sleep apnea (adult) (pediatric) Irritable bowel syndrome with diarrhea Irritable bowel syndrome GERD without esophagitis Esophageal reflux S/P gastric bypass Bariatric surgery status Stage 3 chronic kidney disease, unspecified whether stage 3a or 3b CKD (HCC) Renal lesion Unspecified disorder of kidney and ureter Hypothyroidism, unspecified type Moderate episode of recurrent major depressive disorder (HCC) Pre-operative examination- Primary Preoperative examination, unspecified Mild intermittent asthma 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 Unspecified asthma Essential hypertension Unspecified essential hypertension GERD without esophagitis Esophageal reflux Mixed hyperlipidemia Hypothyroidism, unspecified type Irritable bowel syndrome with diarrhea Irritable bowel syndrome Moderate episode of recurrent major depressive disorder (HCC) MARIBEL (obstructive sleep apnea) Obstructive sleep apnea (adult) (pediatric) S/P gastric bypass Bariatric surgery status Renal lesion Unspecified disorder of kidney and ureter Stage 3 chronic kidney disease, unspecified whether stage 3a or 3b CKD (HCC) 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, unspecified whether longterm insulin use (HCC) Hyponatremia Hyposmolality and/or hyponatremia History of total hip replacement, right History of total knee replacement, left Coronary artery disease involving blackfeet coronary artery of blackfeet heart without angina pectoris Urinary tract infection without hematuria, site unspecified SBO (small bowel obstruction) ([facility])- Primary Unspecified intestinal obstruction Acute cystitis without hematuria Acute cystitis Pancreatic cyst Cyst and pseudocyst of pancreas Moderate episode of recurrent major depressive disorder (HCC) Type 2 diabetes mellitus with stage 3 chronic kidney disease, without long-term current use of insulin, unspecified whether stage 3a or 3b CKD (HCC) Contusion of fifth toe [facility]* Diagnosis Preop examination- Primary Preoperative examination, unspecified Essential hypertension Unspecified essential hypertension MARIBEL (obstructive sleep apnea) Obstructive sleep apnea (adult) (pediatric) Mild intermittent asthma 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 Unspecified asthma Hypothyroidism, unspecified type Type 2 diabetes mellitus with stage 3 chronic kidney disease, without long-term current use of insulin, unspecified whether stage 3a or 3b CKD (HCC) Stage 3 chronic kidney disease, unspecified whether stage 3a or 3b CKD (HCC) Preoperative examination- Primary Preoperative examination, unspecified Essential hypertension Unspecified essential hypertension Mixed hyperlipidemia MARIBEL (obstructive sleep apnea) Obstructive sleep apnea (adult) (pediatric) Mild intermittent asthma 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 Unspecified asthma GERD without esophagitis Esophageal reflux S/P gastric bypass Bariatric surgery status Stage 3 chronic kidney disease, unspecified whether stage 3a or 3b CKD (HCC) Hypothyroidism, unspecified type Type 2 diabetes mellitus with stage 3 chronic kidney disease, without long-term current use of insulin, unspecified whether stage 3a or 3b CKD (HCC) Moderate episode of recurrent major depressive disorder (HCC) Preoperative examination- Primary Preoperative examination, unspecified 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, unspecified whether longterm insulin use (HCC) Essential hypertension Unspecified essential hypertension Mixed hyperlipidemia Mild intermittent asthma 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 Unspecified asthma MARIBEL (obstructive sleep apnea) Obstructive sleep apnea (adult) (pediatric) Irritable bowel syndrome with diarrhea Irritable bowel syndrome GERD without esophagitis Esophageal reflux S/P gastric bypass Bariatric surgery status Stage 3 chronic kidney disease, unspecified whether stage 3a or 3b CKD (HCC) Renal lesion Unspecified disorder of kidney and ureter Hypothyroidism, unspecified type Moderate episode of recurrent major depressive disorder (HCC) Pre-operative examination- Primary Preoperative examination, unspecified Mild intermittent asthma 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 Unspecified asthma Essential hypertension Unspecified essential hypertension GERD without esophagitis Esophageal reflux Mixed hyperlipidemia Hypothyroidism, unspecified type Irritable bowel syndrome with diarrhea Irritable bowel syndrome Moderate episode of recurrent major depressive disorder (HCC) MARIBEL (obstructive sleep apnea) Obstructive sleep apnea (adult) (pediatric) S/P gastric bypass Bariatric surgery status Renal lesion Unspecified disorder of kidney and ureter Stage 3 chronic kidney disease, unspecified whether stage 3a or 3b CKD (HCC) 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, unspecified whether longterm insulin use ([facility]) Hyponatremia Hyposmolality and/or hyponatremia History of total hip replacement, right History of total knee replacement, left Coronary artery disease involving blackfeet coronary artery of blackfeet heart without angina pectoris Urinary tract infection without hematuria, site unspecified SBO (small bowel obstruction) ([facility])- Primary Unspecified intestinal obstruction Acute cystitis without hematuria Acute cystitis Pancreatic cyst Cyst and pseudocyst of pancreas Moderate episode of recurrent major depressive disorder (HCC) Type 2 diabetes mellitus with stage 3 chronic kidney disease, without long-term current use of insulin, unspecified whether stage 3a or 3b CKD (HCC) Fall, initial encounter Rib pain on right side Chest pain, unspecified Pain of right hip [facility]* Diagnosis Preop examination- Primary Preoperative examination, unspecified Essential hypertension Unspecified essential hypertension MARIBEL (obstructive sleep apnea) Obstructive sleep apnea (adult) (pediatric) Mild intermittent asthma 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 Unspecified asthma Hypothyroidism, unspecified type Type 2 diabetes mellitus with stage 3 chronic kidney disease, without long-term current use of insulin, unspecified whether stage 3a or 3b CKD (HCC) Stage 3 chronic kidney disease, unspecified whether stage 3a or 3b CKD (HCC) Preoperative examination- Primary Preoperative examination, unspecified Essential hypertension Unspecified essential hypertension Mixed hyperlipidemia MARIBEL (obstructive sleep apnea) Obstructive sleep apnea (adult) (pediatric) Mild intermittent asthma 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 Unspecified asthma GERD without esophagitis Esophageal reflux S/P gastric bypass Bariatric surgery status Stage 3 chronic kidney disease, unspecified whether stage 3a or 3b CKD (HCC) Hypothyroidism, unspecified type Type 2 diabetes mellitus with stage 3 chronic kidney disease, without long-term current use of insulin, unspecified whether stage 3a or 3b CKD (HCC) Moderate episode of recurrent major depressive disorder (HCC) Preoperative examination- Primary Preoperative examination, unspecified 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, unspecified whether longterm insulin use (HCC) Essential hypertension Unspecified essential hypertension Mixed hyperlipidemia Mild intermittent asthma 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 Unspecified asthma MARIBEL (obstructive sleep apnea) Obstructive sleep apnea (adult) (pediatric) Irritable bowel syndrome with diarrhea Irritable bowel syndrome GERD without esophagitis Esophageal reflux S/P gastric bypass Bariatric surgery status Stage 3 chronic kidney disease, unspecified whether stage 3a or 3b CKD (HCC) Renal lesion Unspecified disorder of kidney and ureter Hypothyroidism, unspecified type Moderate episode of recurrent major depressive disorder (HCC) Pre-operative examination- Primary Preoperative examination, unspecified Mild intermittent asthma 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 Unspecified asthma Essential hypertension Unspecified essential hypertension GERD without esophagitis Esophageal reflux Mixed hyperlipidemia Hypothyroidism, unspecified type Irritable bowel syndrome with diarrhea Irritable bowel syndrome Moderate episode of recurrent major depressive disorder (HCC) MARIBEL (obstructive sleep apnea) Obstructive sleep apnea (adult) (pediatric) S/P gastric bypass Bariatric surgery status Renal lesion Unspecified disorder of kidney and ureter Stage 3 chronic kidney disease, unspecified whether stage 3a or 3b CKD (HCC) 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, unspecified whether longterm insulin use (HCC) Hyponatremia Hyposmolality and/or hyponatremia History of total hip replacement, right History of total knee replacement, left Coronary artery disease involving blackfeet coronary artery of blackfeet heart without angina pectoris Urinary tract infection without hematuria, site unspecified Chronic pain of right knee SBO (small bowel obstruction) (HCC)- Primary Unspecified intestinal obstruction Acute cystitis without hematuria Acute cystitis Pancreatic cyst Cyst and pseudocyst of pancreas Moderate episode of recurrent major depressive disorder (HCC) Type 2 diabetes mellitus with stage 3 chronic kidney disease, without long-term current use of insulin, unspecified whether stage 3a or 3b CKD (HCC) [facility] Diagnosis Preop examination- Primary Preoperative examination, unspecified Essential hypertension Unspecified essential hypertension MARIBEL (obstructive sleep apnea) Obstructive sleep apnea (adult) (pediatric) Mild intermittent asthma 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 Unspecified asthma Hypothyroidism, unspecified type Type 2 diabetes mellitus with stage 3 chronic kidney disease, without long-term current use of insulin, unspecified whether stage 3a or 3b CKD (HCC) Stage 3 chronic kidney disease, unspecified whether stage 3a or 3b CKD (HCC) Preoperative examination- Primary Preoperative examination, unspecified Essential hypertension Unspecified essential hypertension Mixed hyperlipidemia MARIBEL (obstructive sleep apnea) Obstructive sleep apnea (adult) (pediatric) Mild intermittent asthma 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 Unspecified asthma GERD without esophagitis Esophageal reflux S/P gastric bypass Bariatric surgery status Stage 3 chronic kidney disease, unspecified whether stage 3a or 3b CKD (HCC) Hypothyroidism, unspecified type Type 2 diabetes mellitus with stage 3 chronic kidney disease, without long-term current use of insulin, unspecified whether stage 3a or 3b CKD (HCC) Moderate episode of recurrent major depressive disorder (HCC) Preoperative examination- Primary Preoperative examination, unspecified 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, 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) Essential hypertension Unspecified essential hypertension Mixed hyperlipidemia Mild intermittent asthma 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 Unspecified asthma MARIBEL (obstructive sleep apnea) Obstructive sleep apnea (adult) (pediatric) Irritable bowel syndrome with diarrhea Irritable bowel syndrome GERD without esophagitis Esophageal reflux S/P gastric bypass Bariatric surgery status Stage 3 chronic kidney disease, unspecified whether stage 3a or 3b CKD (HCC) Renal lesion Unspecified disorder of kidney and ureter Hypothyroidism, unspecified type Moderate episode of recurrent major depressive disorder (HCC) Pre-operative examination- Primary Preoperative examination, unspecified Mild intermittent asthma 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 Unspecified asthma Essential hypertension Unspecified essential hypertension GERD without esophagitis Esophageal reflux Mixed hyperlipidemia Hypothyroidism, unspecified type Irritable bowel syndrome with diarrhea Irritable bowel syndrome Moderate episode of recurrent major depressive disorder (HCC) MARIBEL (obstructive sleep apnea) Obstructive sleep apnea (adult) (pediatric) S/P gastric bypass Bariatric surgery status Renal lesion Unspecified disorder of kidney and ureter Stage 3 chronic kidney disease, unspecified whether stage 3a or 3b CKD (HCC) 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, unspecified whether longterm insulin use ([facility]) Hyponatremia Hyposmolality and/or hyponatremia History of total hip replacement, right History of total knee replacement, left Coronary artery disease involving blackfeet coronary artery of blackfeet heart without angina pectoris Urinary tract infection without hematuria, site unspecified Chronic pain of right knee SBO (small bowel obstruction) ([facility])- Primary Unspecified intestinal obstruction Acute cystitis without hematuria Acute cystitis Pancreatic cyst Cyst and pseudocyst of pancreas Moderate episode of recurrent major depressive disorder (HCC) Type 2 diabetes mellitus with stage 3 chronic kidney disease, without long-term current use of insulin, unspecified whether stage 3a or 3b CKD (HCC) [facility] Preop examination- Primary Preoperative examination, unspecified Essential hypertension Unspecified essential hypertension MARIBEL (obstructive sleep apnea) Obstructive sleep apnea (adult) (pediatric) Mild intermittent asthma 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 Unspecified asthma Hypothyroidism, unspecified type Type 2 diabetes mellitus with stage 3 chronic kidney disease, without long-term current use of insulin, unspecified whether stage 3a or 3b CKD (HCC) Stage 3 chronic kidney disease, unspecified whether stage 3a or 3b CKD (HCC) Preoperative examination- Primary Preoperative examination, unspecified Essential hypertension Unspecified essential hypertension Mixed hyperlipidemia MARIBEL (obstructive sleep apnea) Obstructive sleep apnea (adult) (pediatric) Mild intermittent asthma 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 Unspecified asthma GERD without esophagitis Esophageal reflux S/P gastric bypass Bariatric surgery status Stage 3 chronic kidney disease, unspecified whether stage 3a or 3b CKD (HCC) Hypothyroidism, unspecified type Type 2 diabetes mellitus with stage 3 chronic kidney disease, without long-term current use of insulin, unspecified whether stage 3a or 3b CKD (HCC) Moderate episode of recurrent major depressive disorder (HCC) Preoperative examination- Primary Preoperative examination, unspecified 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, 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) Essential hypertension Unspecified essential hypertension Mixed hyperlipidemia Mild intermittent asthma 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 Unspecified asthma MARIBEL (obstructive sleep apnea) Obstructive sleep apnea (adult) (pediatric) Irritable bowel syndrome with diarrhea Irritable bowel syndrome GERD without esophagitis Esophageal reflux S/P gastric bypass Bariatric surgery status Stage 3 chronic kidney disease, unspecified whether stage 3a or 3b CKD (HCC) Renal lesion Unspecified disorder of kidney and ureter Hypothyroidism, unspecified type Moderate episode of recurrent major depressive disorder (HCC) Pain in right hip Pain in joint, pelvic region and thigh Pre-operative examination- Primary Preoperative examination, unspecified Mild intermittent asthma 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 Unspecified asthma Essential hypertension Unspecified essential hypertension GERD without esophagitis Esophageal reflux Mixed hyperlipidemia Hypothyroidism, unspecified type Irritable bowel syndrome with diarrhea Irritable bowel syndrome Moderate episode of recurrent major depressive disorder (HCC) MARIBEL (obstructive sleep apnea) Obstructive sleep apnea (adult) (pediatric) S/P gastric bypass Bariatric surgery status Renal lesion Unspecified disorder of kidney and ureter Stage 3 chronic kidney disease, unspecified whether stage 3a or 3b CKD (HCC) 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, 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) Hyponatremia Hyposmolality and/or hyponatremia History of total hip replacement, right History of total knee replacement, left Coronary artery disease involving blackfeet coronary artery of blackfeet heart without angina pectoris Urinary tract infection without hematuria, site unspecified SBO (small bowel obstruction) (HCC)- Primary Unspecified intestinal obstruction Acute cystitis without hematuria Acute cystitis Pancreatic cyst Cyst and pseudocyst of pancreas Moderate episode of recurrent major depressive disorder (HCC) Type 2 diabetes mellitus with stage 3 chronic kidney disease, without long-term current use of insulin, unspecified whether stage 3a or 3b CKD (HCC) documented in this encounter [facility] note* Diagnosis Preop examination- Primary Preoperative examination, unspecified Essential hypertension Unspecified essential hypertension MARIBEL (obstructive sleep apnea) Obstructive sleep apnea (adult) (pediatric) Mild intermittent asthma 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 Unspecified asthma Hypothyroidism, unspecified type Type 2 diabetes mellitus with stage 3 chronic kidney disease, without long-term current use of insulin, unspecified whether stage 3a or 3b CKD (HCC) Stage 3 chronic kidney disease, unspecified whether stage 3a or 3b CKD (HCC) Preoperative examination- Primary Preoperative examination, unspecified Essential hypertension Unspecified essential hypertension Mixed hyperlipidemia MARIBEL (obstructive sleep apnea) Obstructive sleep apnea (adult) (pediatric) Mild intermittent asthma 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 Unspecified asthma GERD without esophagitis Esophageal reflux S/P gastric bypass Bariatric surgery status Stage 3 chronic kidney disease, unspecified whether stage 3a or 3b CKD (HCC) Hypothyroidism, unspecified type Type 2 diabetes mellitus with stage 3 chronic kidney disease, without long-term current use of insulin, unspecified whether stage 3a or 3b CKD (HCC) Moderate episode of recurrent major depressive disorder (HCC) Preoperative examination- Primary Preoperative examination, unspecified 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, unspecified whether longterm insulin use (HCC) Essential hypertension Unspecified essential hypertension Mixed hyperlipidemia Mild intermittent asthma 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 Unspecified asthma MARIBEL (obstructive sleep apnea) Obstructive sleep apnea (adult) (pediatric) Irritable bowel syndrome with diarrhea Irritable bowel syndrome GERD without esophagitis Esophageal reflux S/P gastric bypass Bariatric surgery status Stage 3 chronic kidney disease, unspecified whether stage 3a or 3b CKD (HCC) Renal lesion Unspecified disorder of kidney and ureter Hypothyroidism, unspecified type Moderate episode of recurrent major depressive disorder (HCC) Pre-operative examination- Primary Preoperative examination, unspecified Mild intermittent asthma 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 Unspecified asthma Essential hypertension Unspecified essential hypertension GERD without esophagitis Esophageal reflux Mixed hyperlipidemia Hypothyroidism, unspecified type Irritable bowel syndrome with diarrhea Irritable bowel syndrome Moderate episode of recurrent major depressive disorder (HCC) MARIBEL (obstructive sleep apnea) Obstructive sleep apnea (adult) (pediatric) S/P gastric bypass Bariatric surgery status Renal lesion Unspecified disorder of kidney and ureter Stage 3 chronic kidney disease, unspecified whether stage 3a or 3b CKD (HCC) 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, unspecified whether longterm insulin use ([facility]) Hyponatremia Hyposmolality and/or hyponatremia History of total hip replacement, right History of total knee replacement, left Coronary artery disease involving blackfeet coronary artery of blackfeet heart without angina pectoris Urinary tract infection without hematuria, site unspecified SBO (small bowel obstruction) ([facility])- Primary Unspecified intestinal obstruction Acute cystitis without hematuria Acute cystitis Pancreatic cyst Cyst and pseudocyst of pancreas Moderate episode of recurrent major depressive disorder (HCC) Type 2 diabetes mellitus with stage 3 chronic kidney disease, without long-term current use of insulin, unspecified whether stage 3a or 3b CKD ([facility]) Closed fracture of right foot with routine healing, subsequent encounter- Primary Hypothyroidism, unspecified type Encounter for immunization Need for other specified prophylactic vaccination against single bacterial disease Moderate episode of recurrent major depressive disorder ([facility]) Pancreatic cyst Cyst and pseudocyst of pancreas Essential hypertension Unspecified essential hypertension Mixed hyperlipidemia 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, unspecified whether longterm insulin use ([facility]) [facility] Diagnosis Hip fracture requiring operative repair, right, closed, initial encounter ([facility]) Preop examination- Primary Preoperative examination, unspecified Essential hypertension Unspecified essential hypertension MARIBEL (obstructive sleep apnea) Obstructive sleep apnea (adult) (pediatric) Mild intermittent asthma 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 Unspecified asthma Hypothyroidism, unspecified type Type 2 diabetes mellitus with stage 3 chronic kidney disease, without long-term current use of insulin, unspecified whether stage 3a or 3b CKD (HCC) Stage 3 chronic kidney disease, unspecified whether stage 3a or 3b CKD ([facility]) Preoperative examination- Primary Preoperative examination, unspecified Essential hypertension Unspecified essential hypertension Mixed hyperlipidemia MARIBEL (obstructive sleep apnea) Obstructive sleep apnea (adult) (pediatric) Mild intermittent asthma 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 Unspecified asthma GERD without esophagitis Esophageal reflux S/P gastric bypass Bariatric surgery status Stage 3 chronic kidney disease, unspecified whether stage 3a or 3b CKD (HCC) Hypothyroidism, unspecified type Type 2 diabetes mellitus with stage 3 chronic kidney disease, without long-term current use of insulin, unspecified whether stage 3a or 3b CKD (HCC) Moderate episode of recurrent major depressive disorder (HCC) Preoperative examination- Primary Preoperative examination, unspecified 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, 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) Essential hypertension Unspecified essential hypertension Mixed hyperlipidemia Mild intermittent asthma 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 Unspecified asthma MARIBEL (obstructive sleep apnea) Obstructive sleep apnea (adult) (pediatric) Irritable bowel syndrome with diarrhea Irritable bowel syndrome GERD without esophagitis Esophageal reflux S/P gastric bypass Bariatric surgery status Stage 3 chronic kidney disease, unspecified whether stage 3a or 3b CKD (HCC) Renal lesion Unspecified disorder of kidney and ureter Hypothyroidism, unspecified type Moderate episode of recurrent major depressive disorder (HCC) Pre-operative examination- Primary Preoperative examination, unspecified Mild intermittent asthma 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 Unspecified asthma Essential hypertension Unspecified essential hypertension GERD without esophagitis Esophageal reflux Mixed hyperlipidemia Hypothyroidism, unspecified type Irritable bowel syndrome with diarrhea Irritable bowel syndrome Moderate episode of recurrent major depressive disorder (HCC) MARIBEL (obstructive sleep apnea) Obstructive sleep apnea (adult) (pediatric) S/P gastric bypass Bariatric surgery status Renal lesion Unspecified disorder of kidney and ureter Stage 3 chronic kidney disease, unspecified whether stage 3a or 3b CKD (HCC) 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, 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) Hyponatremia Hyposmolality and/or hyponatremia History of total hip replacement, right History of total knee replacement, left Coronary artery disease involving blackfeet coronary artery of blackfeet heart without angina pectoris Urinary tract infection without hematuria, site unspecified SBO (small bowel obstruction) (HCC)- Primary Unspecified intestinal obstruction Acute cystitis without hematuria Acute cystitis Pancreatic cyst Cyst and pseudocyst of pancreas Moderate episode of recurrent major depressive disorder (HCC) Type 2 diabetes mellitus with stage 3 chronic kidney disease, without long-term current use of insulin, unspecified whether stage 3a or 3b CKD (HCC) [facility] Acute cough Preop examination- Primary Preoperative examination, unspecified Essential hypertension Unspecified essential hypertension MARIBEL (obstructive sleep apnea) Obstructive sleep apnea (adult) (pediatric) Mild intermittent asthma 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 Unspecified asthma Hypothyroidism, unspecified type Type 2 diabetes mellitus with stage 3 chronic kidney disease, without long-term current use of insulin, unspecified whether stage 3a or 3b CKD (HCC) Stage 3 chronic kidney disease, unspecified whether stage 3a or 3b CKD (HCC) Preoperative examination- Primary Preoperative examination, unspecified Essential hypertension Unspecified essential hypertension Mixed hyperlipidemia MARIBEL (obstructive sleep apnea) Obstructive sleep apnea (adult) (pediatric) Mild intermittent asthma 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 Unspecified asthma GERD without esophagitis Esophageal reflux S/P gastric bypass Bariatric surgery status Stage 3 chronic kidney disease, unspecified whether stage 3a or 3b CKD (HCC) Hypothyroidism, unspecified type Type 2 diabetes mellitus with stage 3 chronic kidney disease, without long-term current use of insulin, unspecified whether stage 3a or 3b CKD (HCC) Moderate episode of recurrent major depressive disorder (HCC) Preoperative examination- Primary Preoperative examination, unspecified 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, 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) Essential hypertension Unspecified essential hypertension Mixed hyperlipidemia Mild intermittent asthma 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 Unspecified asthma MARIBEL (obstructive sleep apnea) Obstructive sleep apnea (adult) (pediatric) Irritable bowel syndrome with diarrhea Irritable bowel syndrome GERD without esophagitis Esophageal reflux S/P gastric bypass Bariatric surgery status Stage 3 chronic kidney disease, unspecified whether stage 3a or 3b CKD (HCC) Renal lesion Unspecified disorder of kidney and ureter Hypothyroidism, unspecified type Moderate episode of recurrent major depressive disorder (HCC) Pre-operative examination- Primary Preoperative examination, unspecified Mild intermittent asthma 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 Unspecified asthma Essential hypertension Unspecified essential hypertension GERD without esophagitis Esophageal reflux Mixed hyperlipidemia Hypothyroidism, unspecified type Irritable bowel syndrome with diarrhea Irritable bowel syndrome Moderate episode of recurrent major depressive disorder (HCC) MARIBEL (obstructive sleep apnea) Obstructive sleep apnea (adult) (pediatric) S/P gastric bypass Bariatric surgery status Renal lesion Unspecified disorder of kidney and ureter Stage 3 chronic kidney disease, unspecified whether stage 3a or 3b CKD (HCC) 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, 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) Hyponatremia Hyposmolality and/or hyponatremia History of total hip replacement, right History of total knee replacement, left Coronary artery disease involving blackfeet coronary artery of blackfeet heart without angina pectoris Urinary tract infection without hematuria, site unspecified SBO (small bowel obstruction) (HCC)- Primary Unspecified intestinal obstruction Acute cystitis without hematuria Acute cystitis Pancreatic cyst Cyst and pseudocyst of pancreas Moderate episode of recurrent major depressive disorder (HCC) Type 2 diabetes mellitus with stage 3 chronic kidney disease, without long-term current use of insulin, unspecified whether stage 3a or 3b CKD (HCC) [facility]- Primary Preoperative examination, unspecified Essential hypertension Unspecified essential hypertension MARIBEL (obstructive sleep apnea) Obstructive sleep apnea (adult) (pediatric) Mild intermittent asthma 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 Unspecified asthma Hypothyroidism, unspecified type Type 2 diabetes mellitus with stage 3 chronic kidney disease, without long-term current use of insulin, unspecified whether stage 3a or 3b CKD (HCC) Stage 3 chronic kidney disease, unspecified whether stage 3a or 3b CKD (HCC) Preoperative examination- Primary Preoperative examination, unspecified Essential hypertension Unspecified essential hypertension Mixed hyperlipidemia MARIBEL (obstructive sleep apnea) Obstructive sleep apnea (adult) (pediatric) Mild intermittent asthma 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 Unspecified asthma GERD without esophagitis Esophageal reflux S/P gastric bypass Bariatric surgery status Stage 3 chronic kidney disease, unspecified whether stage 3a or 3b CKD (HCC) Hypothyroidism, unspecified type Type 2 diabetes mellitus with stage 3 chronic kidney disease, without long-term current use of insulin, unspecified whether stage 3a or 3b CKD (HCC) Moderate episode of recurrent major depressive disorder (HCC) Fall, initial encounter Preoperative examination- Primary Preoperative examination, unspecified 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, unspecified whether longterm insulin use (HCC) Essential hypertension Unspecified essential hypertension Mixed hyperlipidemia Mild intermittent asthma 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 Unspecified asthma MARIBEL (obstructive sleep apnea) Obstructive sleep apnea (adult) (pediatric) Irritable bowel syndrome with diarrhea Irritable bowel syndrome GERD without esophagitis Esophageal reflux S/P gastric bypass Bariatric surgery status Stage 3 chronic kidney disease, unspecified whether stage 3a or 3b CKD (HCC) Renal lesion Unspecified disorder of kidney and ureter Hypothyroidism, unspecified type Moderate episode of recurrent major depressive disorder (HCC) Pre-operative examination- Primary Preoperative examination, unspecified Mild intermittent asthma 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 Unspecified asthma Essential hypertension Unspecified essential hypertension GERD without esophagitis Esophageal reflux Mixed hyperlipidemia Hypothyroidism, unspecified type Irritable bowel syndrome with diarrhea Irritable bowel syndrome Moderate episode of recurrent major depressive disorder (HCC) MARIBEL (obstructive sleep apnea) Obstructive sleep apnea (adult) (pediatric) S/P gastric bypass Bariatric surgery status Renal lesion Unspecified disorder of kidney and ureter Stage 3 chronic kidney disease, unspecified whether stage 3a or 3b CKD (HCC) 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, unspecified whether longterm insulin use (HCC) Hyponatremia Hyposmolality and/or hyponatremia History of total hip replacement, right History of total knee replacement, left Coronary artery disease involving blackfeet coronary artery of blackfeet heart without angina pectoris Urinary tract infection without hematuria, site unspecified SBO (small bowel obstruction) (HCC)- Primary Unspecified intestinal obstruction Acute cystitis without hematuria Acute cystitis Pancreatic cyst Cyst and pseudocyst of pancreas Moderate episode of recurrent major depressive disorder (HCC) Type 2 diabetes mellitus with stage 3 chronic kidney disease, without long-term current use of insulin, unspecified whether stage 3a or 3b CKD (HCC) documented in this encounter [facility] note* Diagnosis Preop examination- Primary Preoperative examination, unspecified Essential hypertension Unspecified essential hypertension MARIBEL (obstructive sleep apnea) Obstructive sleep apnea (adult) (pediatric) Mild intermittent asthma 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 Unspecified asthma Hypothyroidism, unspecified type Type 2 diabetes mellitus with stage 3 chronic kidney disease, without long-term current use of insulin, unspecified whether stage 3a or 3b CKD (HCC) Stage 3 chronic kidney disease, unspecified whether stage 3a or 3b CKD (HCC) Preoperative examination- Primary Preoperative examination, unspecified Essential hypertension Unspecified essential hypertension Mixed hyperlipidemia MARIBEL (obstructive sleep apnea) Obstructive sleep apnea (adult) (pediatric) Mild intermittent asthma 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 Unspecified asthma GERD without esophagitis Esophageal reflux S/P gastric bypass Bariatric surgery status Stage 3 chronic kidney disease, unspecified whether stage 3a or 3b CKD (HCC) Hypothyroidism, unspecified type Type 2 diabetes mellitus with stage 3 chronic kidney disease, without long-term current use of insulin, unspecified whether stage 3a or 3b CKD (HCC) Moderate episode of recurrent major depressive disorder (HCC) Preoperative examination- Primary Preoperative examination, unspecified 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, unspecified whether longterm insulin use (HCC) Essential hypertension Unspecified essential hypertension Mixed hyperlipidemia Mild intermittent asthma 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 Unspecified asthma MARIBEL (obstructive sleep apnea) Obstructive sleep apnea (adult) (pediatric) Irritable bowel syndrome with diarrhea Irritable bowel syndrome GERD without esophagitis Esophageal reflux S/P gastric bypass Bariatric surgery status Stage 3 chronic kidney disease, unspecified whether stage 3a or 3b CKD (HCC) Renal lesion Unspecified disorder of kidney and ureter Hypothyroidism, unspecified type Moderate episode of recurrent major depressive disorder (HCC) Pre-operative examination- Primary Preoperative examination, unspecified Mild intermittent asthma 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 Unspecified asthma Essential hypertension Unspecified essential hypertension GERD without esophagitis Esophageal reflux Mixed hyperlipidemia Hypothyroidism, unspecified type Irritable bowel syndrome with diarrhea Irritable bowel syndrome Moderate episode of recurrent major depressive disorder (HCC) MARIBEL (obstructive sleep apnea) Obstructive sleep apnea (adult) (pediatric) S/P gastric bypass Bariatric surgery status Renal lesion Unspecified disorder of kidney and ureter Stage 3 chronic kidney disease, unspecified whether stage 3a or 3b CKD (HCC) 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, unspecified whether longterm insulin use (HCC) Hyponatremia Hyposmolality and/or hyponatremia History of total hip replacement, right History of total knee replacement, left Coronary artery disease involving blackfeet coronary artery of blackfeet heart without angina pectoris Urinary tract infection without hematuria, site unspecified SBO (small bowel obstruction) (HCC)- Primary Unspecified intestinal obstruction Acute cystitis without hematuria Acute cystitis Pancreatic cyst Cyst and pseudocyst of pancreas Moderate episode of recurrent major depressive disorder (HCC) Type 2 diabetes mellitus with stage 3 chronic kidney disease, without long-term current use of insulin, unspecified whether stage 3a or 3b CKD (HCC) Pancreatic cyst Cyst and pseudocyst of [facility] Preop examination- Primary Preoperative examination, unspecified Essential hypertension Unspecified essential hypertension MARIBEL (obstructive sleep apnea) Obstructive sleep apnea (adult) (pediatric) Mild intermittent asthma 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 Unspecified asthma Hypothyroidism, unspecified type Type 2 diabetes mellitus with stage 3 chronic kidney disease, without long-term current use of insulin, unspecified whether stage 3a or 3b CKD (HCC) Stage 3 chronic kidney disease, unspecified whether stage 3a or 3b CKD (HCC) Preoperative examination- Primary Preoperative examination, unspecified Essential hypertension Unspecified essential hypertension Mixed hyperlipidemia MARIBEL (obstructive sleep apnea) Obstructive sleep apnea (adult) (pediatric) Mild intermittent asthma 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 Unspecified asthma GERD without esophagitis Esophageal reflux S/P gastric bypass Bariatric surgery status Stage 3 chronic kidney disease, unspecified whether stage 3a or 3b CKD (HCC) Hypothyroidism, unspecified type Type 2 diabetes mellitus with stage 3 chronic kidney disease, without long-term current use of insulin, unspecified whether stage 3a or 3b CKD (HCC) Moderate episode of recurrent major depressive disorder (HCC) Preoperative examination- Primary Preoperative examination, unspecified 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, 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) Essential hypertension Unspecified essential hypertension Mixed hyperlipidemia Mild intermittent asthma 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 Unspecified asthma MARIBEL (obstructive sleep apnea) Obstructive sleep apnea (adult) (pediatric) Irritable bowel syndrome with diarrhea Irritable bowel syndrome GERD without esophagitis Esophageal reflux S/P gastric bypass Bariatric surgery status Stage 3 chronic kidney disease, unspecified whether stage 3a or 3b CKD (HCC) Renal lesion Unspecified disorder of kidney and ureter Hypothyroidism, unspecified type Moderate episode of recurrent major depressive disorder (HCC) Pre-operative examination- Primary Preoperative examination, unspecified Mild intermittent asthma 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 Unspecified asthma Essential hypertension Unspecified essential hypertension GERD without esophagitis Esophageal reflux Mixed hyperlipidemia Hypothyroidism, unspecified type Irritable bowel syndrome with diarrhea Irritable bowel syndrome Moderate episode of recurrent major depressive disorder (HCC) MARIBEL (obstructive sleep apnea) Obstructive sleep apnea (adult) (pediatric) S/P gastric bypass Bariatric surgery status Renal lesion Unspecified disorder of kidney and ureter Stage 3 chronic kidney disease, unspecified whether stage 3a or 3b CKD (HCC) 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, 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) Hyponatremia Hyposmolality and/or hyponatremia History of total hip replacement, right History of total knee replacement, left Coronary artery disease involving blackfeet coronary artery of blackfeet heart without angina pectoris Urinary tract infection without hematuria, site unspecified SBO (small bowel obstruction) (HCC)- Primary Unspecified intestinal obstruction Acute cystitis without hematuria Acute cystitis Pancreatic cyst Cyst and pseudocyst of pancreas Moderate episode of recurrent major depressive disorder (HCC) Type 2 diabetes mellitus with stage 3 chronic kidney disease, without long-term current use of insulin, unspecified whether stage 3a or 3b CKD (HCC) Pancreatic cyst- Primary Cyst and pseudocyst of pancreas [facility] Preop examination- Primary Preoperative examination, unspecified Essential hypertension Unspecified essential hypertension MARIBEL (obstructive sleep apnea) Obstructive sleep apnea (adult) (pediatric) Mild intermittent asthma 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 Unspecified asthma Hypothyroidism, unspecified type Type 2 diabetes mellitus with stage 3 chronic kidney disease, without long-term current use of insulin, unspecified whether stage 3a or 3b CKD (HCC) Stage 3 chronic kidney disease, unspecified whether stage 3a or 3b CKD (HCC) Preoperative examination- Primary Preoperative examination, unspecified Essential hypertension Unspecified essential hypertension Mixed hyperlipidemia MARIBEL (obstructive sleep apnea) Obstructive sleep apnea (adult) (pediatric) Mild intermittent asthma 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 Unspecified asthma GERD without esophagitis Esophageal reflux S/P gastric bypass Bariatric surgery status Stage 3 chronic kidney disease, unspecified whether stage 3a or 3b CKD (HCC) Hypothyroidism, unspecified type Type 2 diabetes mellitus with stage 3 chronic kidney disease, without long-term current use of insulin, unspecified whether stage 3a or 3b CKD (HCC) Moderate episode of recurrent major depressive disorder (HCC) Preoperative examination- Primary Preoperative examination, unspecified 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, unspecified whether longterm insulin use (HCC) Essential hypertension Unspecified essential hypertension Mixed hyperlipidemia Mild intermittent asthma 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 Unspecified asthma MARIBEL (obstructive sleep apnea) Obstructive sleep apnea (adult) (pediatric) Irritable bowel syndrome with diarrhea Irritable bowel syndrome GERD without esophagitis Esophageal reflux S/P gastric bypass Bariatric surgery status Stage 3 chronic kidney disease, unspecified whether stage 3a or 3b CKD (HCC) Renal lesion Unspecified disorder of kidney and ureter Hypothyroidism, unspecified type Moderate episode of recurrent major depressive disorder (HCC) Pre-operative examination- Primary Preoperative examination, unspecified Mild intermittent asthma 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 Unspecified asthma Essential hypertension Unspecified essential hypertension GERD without esophagitis Esophageal reflux Mixed hyperlipidemia Hypothyroidism, unspecified type Irritable bowel syndrome with diarrhea Irritable bowel syndrome Moderate episode of recurrent major depressive disorder (HCC) MARIBEL (obstructive sleep apnea) Obstructive sleep apnea (adult) (pediatric) S/P gastric bypass Bariatric surgery status Renal lesion Unspecified disorder of kidney and ureter Stage 3 chronic kidney disease, unspecified whether stage 3a or 3b CKD (HCC) 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, 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) Hyponatremia Hyposmolality and/or hyponatremia History of total hip replacement, right History of total knee replacement, left Coronary artery disease involving blackfeet coronary artery of blackfeet heart without angina pectoris Urinary tract infection without hematuria, site unspecified SBO (small bowel obstruction) (HCC)- Primary Unspecified intestinal obstruction Acute cystitis without hematuria Acute cystitis Pancreatic cyst Cyst and pseudocyst of pancreas Moderate episode of recurrent major depressive disorder (HCC) Type 2 diabetes mellitus with stage 3 chronic kidney disease, without long-term current use of insulin, unspecified whether stage 3a or 3b CKD (HCC) Moderate episode of recurrent major depressive disorder (HCC)- Primary Encounter for immunization Need for other specified prophylactic vaccination against single bacterial disease Pain in both hands Falls Unspecified fall [facility] Diagnosis Preop examination- Primary Preoperative examination, unspecified Essential hypertension Unspecified essential hypertension MARIBEL (obstructive sleep apnea) Obstructive sleep apnea (adult) (pediatric) Mild intermittent asthma 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 Unspecified asthma Hypothyroidism, unspecified type Type 2 diabetes mellitus with stage 3 chronic kidney disease, without long-term current use of insulin, unspecified whether stage 3a or 3b CKD (HCC) Stage 3 chronic kidney disease, unspecified whether stage 3a or 3b CKD (HCC) Preoperative examination- Primary Preoperative examination, unspecified Essential hypertension Unspecified essential hypertension Mixed hyperlipidemia MARIBEL (obstructive sleep apnea) Obstructive sleep apnea (adult) (pediatric) Mild intermittent asthma 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 Unspecified asthma GERD without esophagitis Esophageal reflux S/P gastric bypass Bariatric surgery status Stage 3 chronic kidney disease, unspecified whether stage 3a or 3b CKD (HCC) Hypothyroidism, unspecified type Type 2 diabetes mellitus with stage 3 chronic kidney disease, without long-term current use of insulin, unspecified whether stage 3a or 3b CKD (HCC) Moderate episode of recurrent major depressive disorder (HCC) Preoperative examination- Primary Preoperative examination, unspecified 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, unspecified whether longterm insulin use (HCC) Essential hypertension Unspecified essential hypertension Mixed hyperlipidemia Mild intermittent asthma 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 Unspecified asthma MARIBEL (obstructive sleep apnea) Obstructive sleep apnea (adult) (pediatric) Irritable bowel syndrome with diarrhea Irritable bowel syndrome GERD without esophagitis Esophageal reflux S/P gastric bypass Bariatric surgery status Stage 3 chronic kidney disease, unspecified whether stage 3a or 3b CKD (HCC) Renal lesion Unspecified disorder of kidney and ureter Hypothyroidism, unspecified type Moderate episode of recurrent major depressive disorder (HCC) Pre-operative examination- Primary Preoperative examination, unspecified Mild intermittent asthma 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 Unspecified asthma Essential hypertension Unspecified essential hypertension GERD without esophagitis Esophageal reflux Mixed hyperlipidemia Hypothyroidism, unspecified type Irritable bowel syndrome with diarrhea Irritable bowel syndrome Moderate episode of recurrent major depressive disorder (HCC) MARIBEL (obstructive sleep apnea) Obstructive sleep apnea (adult) (pediatric) S/P gastric bypass Bariatric surgery status Renal lesion Unspecified disorder of kidney and ureter Stage 3 chronic kidney disease, unspecified whether stage 3a or 3b CKD (HCC) 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, unspecified whether longterm insulin use ([facility]) Hyponatremia Hyposmolality and/or hyponatremia History of total hip replacement, right History of total knee replacement, left Coronary artery disease involving blackfeet coronary artery of blackfeet heart without angina pectoris Urinary tract infection without hematuria, site unspecified SBO (small bowel obstruction) ([facility])- Primary Unspecified intestinal obstruction Acute cystitis without hematuria Acute cystitis Pancreatic cyst Cyst and pseudocyst of pancreas Moderate episode of recurrent major depressive disorder (HCC) Type 2 diabetes mellitus with stage 3 chronic kidney disease, without long-term current use of insulin, unspecified whether stage 3a or 3b CKD (HCC) Hypothyroidism, unspecified type- Primary [facility] Diagnosis Preop examination- Primary Preoperative examination, unspecified Essential hypertension Unspecified essential hypertension MARIBEL (obstructive sleep apnea) Obstructive sleep apnea (adult) (pediatric) Mild intermittent asthma 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 Unspecified asthma Hypothyroidism, unspecified type Type 2 diabetes mellitus with stage 3 chronic kidney disease, without long-term current use of insulin, unspecified whether stage 3a or 3b CKD (HCC) Stage 3 chronic kidney disease, unspecified whether stage 3a or 3b CKD (HCC) Preoperative examination- Primary Preoperative examination, unspecified Essential hypertension Unspecified essential hypertension Mixed hyperlipidemia MARIBEL (obstructive sleep apnea) Obstructive sleep apnea (adult) (pediatric) Mild intermittent asthma 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 Unspecified asthma GERD without esophagitis Esophageal reflux S/P gastric bypass Bariatric surgery status Stage 3 chronic kidney disease, unspecified whether stage 3a or 3b CKD (HCC) Hypothyroidism, unspecified type Type 2 diabetes mellitus with stage 3 chronic kidney disease, without long-term current use of insulin, unspecified whether stage 3a or 3b CKD (HCC) Moderate episode of recurrent major depressive disorder (HCC) Preoperative examination- Primary Preoperative examination, unspecified 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, 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) Essential hypertension Unspecified essential hypertension Mixed hyperlipidemia Mild intermittent asthma 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 Unspecified asthma MARIBEL (obstructive sleep apnea) Obstructive sleep apnea (adult) (pediatric) Irritable bowel syndrome with diarrhea Irritable bowel syndrome GERD without esophagitis Esophageal reflux S/P gastric bypass Bariatric surgery status Stage 3 chronic kidney disease, unspecified whether stage 3a or 3b CKD (HCC) Renal lesion Unspecified disorder of kidney and ureter Hypothyroidism, unspecified type Moderate episode of recurrent major depressive disorder (HCC) Pre-operative examination- Primary Preoperative examination, unspecified Mild intermittent asthma 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 Unspecified asthma Essential hypertension Unspecified essential hypertension GERD without esophagitis Esophageal reflux Mixed hyperlipidemia Hypothyroidism, unspecified type Irritable bowel syndrome with diarrhea Irritable bowel syndrome Moderate episode of recurrent major depressive disorder (HCC) MARIBEL (obstructive sleep apnea) Obstructive sleep apnea (adult) (pediatric) S/P gastric bypass Bariatric surgery status Renal lesion Unspecified disorder of kidney and ureter Stage 3 chronic kidney disease, unspecified whether stage 3a or 3b CKD (HCC) 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, 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) Hyponatremia Hyposmolality and/or hyponatremia History of total hip replacement, right History of total knee replacement, left Coronary artery disease involving blackfeet coronary artery of blackfeet heart without angina pectoris Urinary tract infection without hematuria, site unspecified SBO (small bowel obstruction) (HCC)- Primary Unspecified intestinal obstruction Acute cystitis without hematuria Acute cystitis Pancreatic cyst Cyst and pseudocyst of pancreas Moderate episode of recurrent major depressive disorder (HCC) Type 2 diabetes mellitus with stage 3 chronic kidney disease, without long-term current use of insulin, unspecified whether stage 3a or 3b CKD (HCC) Pain Generalized [facility] Diagnosis Preop examination- Primary Preoperative examination, unspecified Essential hypertension Unspecified essential hypertension MARIBEL (obstructive sleep apnea) Obstructive sleep apnea (adult) (pediatric) Mild intermittent asthma 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 Unspecified asthma Hypothyroidism, unspecified type Type 2 diabetes mellitus with stage 3 chronic kidney disease, without long-term current use of insulin, unspecified whether stage 3a or 3b CKD (HCC) Stage 3 chronic kidney disease, unspecified whether stage 3a or 3b CKD (HCC) Preoperative examination- Primary Preoperative examination, unspecified Essential hypertension Unspecified essential hypertension Mixed hyperlipidemia MARIBEL (obstructive sleep apnea) Obstructive sleep apnea (adult) (pediatric) Mild intermittent asthma 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 Unspecified asthma GERD without esophagitis Esophageal reflux S/P gastric bypass Bariatric surgery status Stage 3 chronic kidney disease, unspecified whether stage 3a or 3b CKD (HCC) Hypothyroidism, unspecified type Type 2 diabetes mellitus with stage 3 chronic kidney disease, without long-term current use of insulin, unspecified whether stage 3a or 3b CKD (HCC) Moderate episode of recurrent major depressive disorder (HCC) Preoperative examination- Primary Preoperative examination, unspecified 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, 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) Essential hypertension Unspecified essential hypertension Mixed hyperlipidemia Mild intermittent asthma 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 Unspecified asthma MARIBEL (obstructive sleep apnea) Obstructive sleep apnea (adult) (pediatric) Irritable bowel syndrome with diarrhea Irritable bowel syndrome GERD without esophagitis Esophageal reflux S/P gastric bypass Bariatric surgery status Stage 3 chronic kidney disease, unspecified whether stage 3a or 3b CKD (HCC) Renal lesion Unspecified disorder of kidney and ureter Hypothyroidism, unspecified type Moderate episode of recurrent major depressive disorder (HCC) Pre-operative examination- Primary Preoperative examination, unspecified Mild intermittent asthma 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 Unspecified asthma Essential hypertension Unspecified essential hypertension GERD without esophagitis Esophageal reflux Mixed hyperlipidemia Hypothyroidism, unspecified type Irritable bowel syndrome with diarrhea Irritable bowel syndrome Moderate episode of recurrent major depressive disorder (HCC) MARIBEL (obstructive sleep apnea) Obstructive sleep apnea (adult) (pediatric) S/P gastric bypass Bariatric surgery status Renal lesion Unspecified disorder of kidney and ureter Stage 3 chronic kidney disease, unspecified whether stage 3a or 3b CKD (HCC) 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, unspecified whether longterm insulin use (HCC) Hyponatremia Hyposmolality and/or hyponatremia History of total hip replacement, right History of total knee replacement, left Coronary artery disease involving blackfeet coronary artery of blackfeet heart without angina pectoris Urinary tract infection without hematuria, site unspecified SBO (small bowel obstruction) (HCC)- Primary Unspecified intestinal obstruction Acute cystitis without hematuria Acute cystitis Pancreatic cyst Cyst and pseudocyst of pancreas Moderate episode of recurrent major depressive disorder (HCC) Type 2 diabetes mellitus with stage 3 chronic kidney disease, without long-term current use of insulin, unspecified whether stage 3a or 3b CKD (HCC) Encounter for screening mammogram for breast cancer [facility] Diagnosis Preop examination- Primary Preoperative examination, unspecified Essential hypertension Unspecified essential hypertension MARIBEL (obstructive sleep apnea) Obstructive sleep apnea (adult) (pediatric) Mild intermittent asthma 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 Unspecified asthma Hypothyroidism, unspecified type Type 2 diabetes mellitus with stage 3 chronic kidney disease, without long-term current use of insulin, unspecified whether stage 3a or 3b CKD (HCC) Stage 3 chronic kidney disease, unspecified whether stage 3a or 3b CKD (HCC) Preoperative examination- Primary Preoperative examination, unspecified Essential hypertension Unspecified essential hypertension Mixed hyperlipidemia MARIBEL (obstructive sleep apnea) Obstructive sleep apnea (adult) (pediatric) Mild intermittent asthma 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 Unspecified asthma GERD without esophagitis Esophageal reflux S/P gastric bypass Bariatric surgery status Stage 3 chronic kidney disease, unspecified whether stage 3a or 3b CKD (HCC) Hypothyroidism, unspecified type Type 2 diabetes mellitus with stage 3 chronic kidney disease, without long-term current use of insulin, unspecified whether stage 3a or 3b CKD (HCC) Moderate episode of recurrent major depressive disorder (HCC) Preoperative examination- Primary Preoperative examination, unspecified 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, unspecified whether longterm insulin use (HCC) Essential hypertension Unspecified essential hypertension Mixed hyperlipidemia Mild intermittent asthma 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 Unspecified asthma MARIBEL (obstructive sleep apnea) Obstructive sleep apnea (adult) (pediatric) Irritable bowel syndrome with diarrhea Irritable bowel syndrome GERD without esophagitis Esophageal reflux S/P gastric bypass Bariatric surgery status Stage 3 chronic kidney disease, unspecified whether stage 3a or 3b CKD (HCC) Renal lesion Unspecified disorder of kidney and ureter Hypothyroidism, unspecified type Moderate episode of recurrent major depressive disorder (HCC) Pre-operative examination- Primary Preoperative examination, unspecified Mild intermittent asthma 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 Unspecified asthma Essential hypertension Unspecified essential hypertension GERD without esophagitis Esophageal reflux Mixed hyperlipidemia Hypothyroidism, unspecified type Irritable bowel syndrome with diarrhea Irritable bowel syndrome Moderate episode of recurrent major depressive disorder (HCC) MARIBEL (obstructive sleep apnea) Obstructive sleep apnea (adult) (pediatric) S/P gastric bypass Bariatric surgery status Renal lesion Unspecified disorder of kidney and ureter Stage 3 chronic kidney disease, unspecified whether stage 3a or 3b CKD (HCC) 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, unspecified whether longterm insulin use (HCC) Hyponatremia Hyposmolality and/or hyponatremia History of total hip replacement, right History of total knee replacement, left Coronary artery disease involving blackfeet coronary artery of blackfeet heart without angina pectoris Urinary tract infection without hematuria, site unspecified SBO (small bowel obstruction) ([facility])- Primary Unspecified intestinal obstruction Acute cystitis without hematuria Acute cystitis Pancreatic cyst Cyst and pseudocyst of pancreas Moderate episode of recurrent major depressive disorder (HCC) Type 2 diabetes mellitus with stage 3 chronic kidney disease, without long-term current use of insulin, unspecified whether stage 3a or 3b CKD (HCC) Closed fracture of base of fifth metatarsal bone of right foot, initial encounter- Primary documented in this encounter [facility] note* Diagnosis Preop examination- Primary Preoperative examination, unspecified Essential hypertension Unspecified essential hypertension MARIBEL (obstructive sleep apnea) Obstructive sleep apnea (adult) (pediatric) Mild intermittent asthma 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 Unspecified asthma Hypothyroidism, unspecified type Type 2 diabetes mellitus with stage 3 chronic kidney disease, without long-term current use of insulin, unspecified whether stage 3a or 3b CKD (HCC) Stage 3 chronic kidney disease, unspecified whether stage 3a or 3b CKD (HCC) Preoperative examination- Primary Preoperative examination, unspecified Essential hypertension Unspecified essential hypertension Mixed hyperlipidemia MARIBEL (obstructive sleep apnea) Obstructive sleep apnea (adult) (pediatric) Mild intermittent asthma 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 Unspecified asthma GERD without esophagitis Esophageal reflux S/P gastric bypass Bariatric surgery status Stage 3 chronic kidney disease, unspecified whether stage 3a or 3b CKD (HCC) Hypothyroidism, unspecified type Type 2 diabetes mellitus with stage 3 chronic kidney disease, without long-term current use of insulin, unspecified whether stage 3a or 3b CKD (HCC) Moderate episode of recurrent major depressive disorder (HCC) Preoperative examination- Primary Preoperative examination, unspecified 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, unspecified whether longterm insulin use (HCC) Essential hypertension Unspecified essential hypertension Mixed hyperlipidemia Mild intermittent asthma 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 Unspecified asthma MARIBEL (obstructive sleep apnea) Obstructive sleep apnea (adult) (pediatric) Irritable bowel syndrome with diarrhea Irritable bowel syndrome GERD without esophagitis Esophageal reflux S/P gastric bypass Bariatric surgery status Stage 3 chronic kidney disease, unspecified whether stage 3a or 3b CKD (HCC) Renal lesion Unspecified disorder of kidney and ureter Hypothyroidism, unspecified type Moderate episode of recurrent major depressive disorder (HCC) Pre-operative examination- Primary Preoperative examination, unspecified Mild intermittent asthma 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 Unspecified asthma Essential hypertension Unspecified essential hypertension GERD without esophagitis Esophageal reflux Mixed hyperlipidemia Hypothyroidism, unspecified type Irritable bowel syndrome with diarrhea Irritable bowel syndrome Moderate episode of recurrent major depressive disorder (HCC) MARIBEL (obstructive sleep apnea) Obstructive sleep apnea (adult) (pediatric) S/P gastric bypass Bariatric surgery status Renal lesion Unspecified disorder of kidney and ureter Stage 3 chronic kidney disease, unspecified whether stage 3a or 3b CKD (HCC) 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, 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) Hyponatremia Hyposmolality and/or hyponatremia History of total hip replacement, right History of total knee replacement, left Coronary artery disease involving blackfeet coronary artery of blackfeet heart without angina pectoris Urinary tract infection without hematuria, site unspecified SBO (small bowel obstruction) (HCC)- Primary Unspecified intestinal obstruction Acute cystitis without hematuria Acute cystitis Pancreatic cyst Cyst and pseudocyst of pancreas Moderate episode of recurrent major depressive disorder (HCC) Type 2 diabetes mellitus with stage 3 chronic kidney disease, without long-term current use of insulin, unspecified whether stage 3a or 3b CKD (HCC) Generalized postprandial abdominal pain Abdominal pain, generalized [facility] Diagnosis Preop examination- Primary Preoperative examination, unspecified Essential hypertension Unspecified essential hypertension MARIBEL (obstructive sleep apnea) Obstructive sleep apnea (adult) (pediatric) Mild intermittent asthma 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 Unspecified asthma Hypothyroidism, unspecified type Type 2 diabetes mellitus with stage 3 chronic kidney disease, without long-term current use of insulin, unspecified whether stage 3a or 3b CKD (HCC) Stage 3 chronic kidney disease, unspecified whether stage 3a or 3b CKD (HCC) Preoperative examination- Primary Preoperative examination, unspecified Essential hypertension Unspecified essential hypertension Mixed hyperlipidemia MARIBEL (obstructive sleep apnea) Obstructive sleep apnea (adult) (pediatric) Mild intermittent asthma 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 Unspecified asthma GERD without esophagitis Esophageal reflux S/P gastric bypass Bariatric surgery status Stage 3 chronic kidney disease, unspecified whether stage 3a or 3b CKD (HCC) Hypothyroidism, unspecified type Type 2 diabetes mellitus with stage 3 chronic kidney disease, without long-term current use of insulin, unspecified whether stage 3a or 3b CKD (HCC) Moderate episode of recurrent major depressive disorder (HCC) Preoperative examination- Primary Preoperative examination, unspecified 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, unspecified whether longterm insulin use ([facility]) Essential hypertension Unspecified essential hypertension Mixed hyperlipidemia Mild intermittent asthma 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 Unspecified asthma MARIBEL (obstructive sleep apnea) Obstructive sleep apnea (adult) (pediatric) Irritable bowel syndrome with diarrhea Irritable bowel syndrome GERD without esophagitis Esophageal reflux S/P gastric bypass Bariatric surgery status Stage 3 chronic kidney disease, unspecified whether stage 3a or 3b CKD (HCC) Renal lesion Unspecified disorder of kidney and ureter Hypothyroidism, unspecified type Moderate episode of recurrent major depressive disorder ([facility]) Pre-operative examination- Primary Preoperative examination, unspecified Mild intermittent asthma 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 Unspecified asthma Essential hypertension Unspecified essential hypertension GERD without esophagitis Esophageal reflux Mixed hyperlipidemia Hypothyroidism, unspecified type Irritable bowel syndrome with diarrhea Irritable bowel syndrome Moderate episode of recurrent major depressive disorder (HCC) MARIBEL (obstructive sleep apnea) Obstructive sleep apnea (adult) (pediatric) S/P gastric bypass Bariatric surgery status Renal lesion Unspecified disorder of kidney and ureter Stage 3 chronic kidney disease, unspecified whether stage 3a or 3b CKD (HCC) 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, unspecified whether longterm insulin use ([facility]) Hyponatremia Hyposmolality and/or hyponatremia History of total hip replacement, right History of total knee replacement, left Coronary artery disease involving blackfeet coronary artery of blackfeet heart without angina pectoris Urinary tract infection without hematuria, site unspecified SBO (small bowel obstruction) ([facility])- Primary Unspecified intestinal obstruction Acute cystitis without hematuria Acute cystitis Pancreatic cyst Cyst and pseudocyst of pancreas Moderate episode of recurrent major depressive disorder ([facility]) Type 2 diabetes mellitus with stage 3 chronic kidney disease, without long-term current use of insulin, unspecified whether stage 3a or 3b CKD ([facility]) Right shoulder pain, unspecified chronicity- Primary [facility]* Diagnosis Preop examination- Primary Preoperative examination, unspecified Essential hypertension Unspecified essential hypertension MARIBEL (obstructive sleep apnea) Obstructive sleep apnea (adult) (pediatric) Mild intermittent asthma 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 Unspecified asthma Hypothyroidism, unspecified type Type 2 diabetes mellitus with stage 3 chronic kidney disease, without long-term current use of insulin, unspecified whether stage 3a or 3b CKD (HCC) Stage 3 chronic kidney disease, unspecified whether stage 3a or 3b CKD (HCC) Preoperative examination- Primary Preoperative examination, unspecified Essential hypertension Unspecified essential hypertension Mixed hyperlipidemia MARIBEL (obstructive sleep apnea) Obstructive sleep apnea (adult) (pediatric) Mild intermittent asthma 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 Unspecified asthma GERD without esophagitis Esophageal reflux S/P gastric bypass Bariatric surgery status Stage 3 chronic kidney disease, unspecified whether stage 3a or 3b CKD (HCC) Hypothyroidism, unspecified type Type 2 diabetes mellitus with stage 3 chronic kidney disease, without long-term current use of insulin, unspecified whether stage 3a or 3b CKD (HCC) Moderate episode of recurrent major depressive disorder (HCC) Preoperative examination- Primary Preoperative examination, unspecified 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, unspecified whether longterm insulin use (HCC) Essential hypertension Unspecified essential hypertension Mixed hyperlipidemia Mild intermittent asthma 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 Unspecified asthma MARIBEL (obstructive sleep apnea) Obstructive sleep apnea (adult) (pediatric) Irritable bowel syndrome with diarrhea Irritable bowel syndrome GERD without esophagitis Esophageal reflux S/P gastric bypass Bariatric surgery status Stage 3 chronic kidney disease, unspecified whether stage 3a or 3b CKD (HCC) Renal lesion Unspecified disorder of kidney and ureter Hypothyroidism, unspecified type Moderate episode of recurrent major depressive disorder (HCC) Pre-operative examination- Primary Preoperative examination, unspecified Mild intermittent asthma 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 Unspecified asthma Essential hypertension Unspecified essential hypertension GERD without esophagitis Esophageal reflux Mixed hyperlipidemia Hypothyroidism, unspecified type Irritable bowel syndrome with diarrhea Irritable bowel syndrome Moderate episode of recurrent major depressive disorder (HCC) MARIBEL (obstructive sleep apnea) Obstructive sleep apnea (adult) (pediatric) S/P gastric bypass Bariatric surgery status Renal lesion Unspecified disorder of kidney and ureter Stage 3 chronic kidney disease, unspecified whether stage 3a or 3b CKD (HCC) 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, unspecified whether longterm insulin use (HCC) Hyponatremia Hyposmolality and/or hyponatremia History of total hip replacement, right History of total knee replacement, left Coronary artery disease involving blackfeet coronary artery of blackfeet heart without angina pectoris Urinary tract infection without hematuria, site unspecified SBO (small bowel obstruction) (HCC)- Primary Unspecified intestinal obstruction Acute cystitis without hematuria Acute cystitis Pancreatic cyst Cyst and pseudocyst of pancreas Moderate episode of recurrent major depressive disorder (HCC) Type 2 diabetes mellitus with stage 3 chronic kidney disease, without long-term current use of insulin, unspecified whether stage 3a or 3b CKD (HCC) Falls- Primary Unspecified fall [facility]* Diagnosis Preop examination- Primary Preoperative examination, unspecified Essential hypertension Unspecified essential hypertension MARIBEL (obstructive sleep apnea) Obstructive sleep apnea (adult) (pediatric) Mild intermittent asthma 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 Unspecified asthma Hypothyroidism, unspecified type Type 2 diabetes mellitus with stage 3 chronic kidney disease, without long-term current use of insulin, unspecified whether stage 3a or 3b CKD (HCC) Stage 3 chronic kidney disease, unspecified whether stage 3a or 3b CKD (HCC) Preoperative examination- Primary Preoperative examination, unspecified Essential hypertension Unspecified essential hypertension Mixed hyperlipidemia AMRIBEL (obstructive sleep apnea) Obstructive sleep apnea (adult) (pediatric) Mild intermittent asthma 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 Unspecified asthma GERD without esophagitis Esophageal reflux S/P gastric bypass Bariatric surgery status Stage 3 chronic kidney disease, unspecified whether stage 3a or 3b CKD (HCC) Hypothyroidism, unspecified type Type 2 diabetes mellitus with stage 3 chronic kidney disease, without long-term current use of insulin, unspecified whether stage 3a or 3b CKD (HCC) Moderate episode of recurrent major depressive disorder (HCC) Preoperative examination- Primary Preoperative examination, unspecified 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, unspecified whether longterm insulin use (HCC) Essential hypertension Unspecified essential hypertension Mixed hyperlipidemia Mild intermittent asthma 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 Unspecified asthma MARIBEL (obstructive sleep apnea) Obstructive sleep apnea (adult) (pediatric) Irritable bowel syndrome with diarrhea Irritable bowel syndrome GERD without esophagitis Esophageal reflux S/P gastric bypass Bariatric surgery status Stage 3 chronic kidney disease, unspecified whether stage 3a or 3b CKD (HCC) Renal lesion Unspecified disorder of kidney and ureter Hypothyroidism, unspecified type Moderate episode of recurrent major depressive disorder (HCC) Pre-operative examination- Primary Preoperative examination, unspecified Mild intermittent asthma 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 Unspecified asthma Essential hypertension Unspecified essential hypertension GERD without esophagitis Esophageal reflux Mixed hyperlipidemia Hypothyroidism, unspecified type Irritable bowel syndrome with diarrhea Irritable bowel syndrome Moderate episode of recurrent major depressive disorder (HCC) MARIBEL (obstructive sleep apnea) Obstructive sleep apnea (adult) (pediatric) S/P gastric bypass Bariatric surgery status Renal lesion Unspecified disorder of kidney and ureter Stage 3 chronic kidney disease, unspecified whether stage 3a or 3b CKD (HCC) 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, unspecified whether longterm insulin use (HCC) Hyponatremia Hyposmolality and/or hyponatremia History of total hip replacement, right History of total knee replacement, left Coronary artery disease involving blackfeet coronary artery of blackfeet heart without angina pectoris Urinary tract infection without hematuria, site unspecified SBO (small bowel obstruction) (HCC)- Primary Unspecified intestinal obstruction Acute cystitis without hematuria Acute cystitis Pancreatic cyst Cyst and pseudocyst of pancreas Moderate episode of recurrent major depressive disorder (HCC) Type 2 diabetes mellitus with stage 3 chronic kidney disease, without long-term current use of insulin, unspecified whether stage 3a or 3b CKD (HCC) Right shoulder pain, unspecified chronicity [facility] Diagnosis Preop examination- Primary Preoperative examination, unspecified Essential hypertension Unspecified essential hypertension MARIBEL (obstructive sleep apnea) Obstructive sleep apnea (adult) (pediatric) Mild intermittent asthma 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 Unspecified asthma Hypothyroidism, unspecified type Type 2 diabetes mellitus with stage 3 chronic kidney disease, without long-term current use of insulin, unspecified whether stage 3a or 3b CKD (HCC) Stage 3 chronic kidney disease, unspecified whether stage 3a or 3b CKD (HCC) Preoperative examination- Primary Preoperative examination, unspecified Essential hypertension Unspecified essential hypertension Mixed hyperlipidemia MARIBEL (obstructive sleep apnea) Obstructive sleep apnea (adult) (pediatric) Mild intermittent asthma 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 Unspecified asthma GERD without esophagitis Esophageal reflux S/P gastric bypass Bariatric surgery status Stage 3 chronic kidney disease, unspecified whether stage 3a or 3b CKD (HCC) Hypothyroidism, unspecified type Type 2 diabetes mellitus with stage 3 chronic kidney disease, without long-term current use of insulin, unspecified whether stage 3a or 3b CKD (HCC) Moderate episode of recurrent major depressive disorder (HCC) Preoperative examination- Primary Preoperative examination, unspecified 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, 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) Essential hypertension Unspecified essential hypertension Mixed hyperlipidemia Mild intermittent asthma 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 Unspecified asthma MARIBEL (obstructive sleep apnea) Obstructive sleep apnea (adult) (pediatric) Irritable bowel syndrome with diarrhea Irritable bowel syndrome GERD without esophagitis Esophageal reflux S/P gastric bypass Bariatric surgery status Stage 3 chronic kidney disease, unspecified whether stage 3a or 3b CKD (HCC) Renal lesion Unspecified disorder of kidney and ureter Hypothyroidism, unspecified type Moderate episode of recurrent major depressive disorder (HCC) Pre-operative examination- Primary Preoperative examination, unspecified Mild intermittent asthma 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 Unspecified asthma Essential hypertension Unspecified essential hypertension GERD without esophagitis Esophageal reflux Mixed hyperlipidemia Hypothyroidism, unspecified type Irritable bowel syndrome with diarrhea Irritable bowel syndrome Moderate episode of recurrent major depressive disorder (HCC) MARIBEL (obstructive sleep apnea) Obstructive sleep apnea (adult) (pediatric) S/P gastric bypass Bariatric surgery status Renal lesion Unspecified disorder of kidney and ureter Stage 3 chronic kidney disease, unspecified whether stage 3a or 3b CKD (HCC) 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, 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 ([facility]) Hyponatremia Hyposmolality and/or hyponatremia History of total hip replacement, right History of total knee replacement, left Coronary artery disease involving blackfeet coronary artery of blackfeet heart without angina pectoris Urinary tract infection without hematuria, site unspecified SBO (small bowel obstruction) ([facility])- Primary Unspecified intestinal obstruction Acute cystitis without hematuria Acute cystitis Pancreatic cyst Cyst and pseudocyst of pancreas Moderate episode of recurrent major depressive disorder (HCC) Type 2 diabetes mellitus with stage 3 chronic kidney disease, without long-term current use of insulin, unspecified whether stage 3a or 3b CKD (HCC) Shoulder impingement- Primary Other affections of shoulder region, not elsewhere classified Chronic right shoulder pain Pain in joint, shoulder region [facility]* Diagnosis Preop examination- Primary Preoperative examination, unspecified Essential hypertension Unspecified essential hypertension MARIBEL (obstructive sleep apnea) Obstructive sleep apnea (adult) (pediatric) Mild intermittent asthma 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 Unspecified asthma Hypothyroidism, unspecified type Type 2 diabetes mellitus with stage 3 chronic kidney disease, without long-term current use of insulin, unspecified whether stage 3a or 3b CKD (HCC) Stage 3 chronic kidney disease, unspecified whether stage 3a or 3b CKD (HCC) Preoperative examination- Primary Preoperative examination, unspecified Essential hypertension Unspecified essential hypertension Mixed hyperlipidemia MARIBEL (obstructive sleep apnea) Obstructive sleep apnea (adult) (pediatric) Mild intermittent asthma 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 Unspecified asthma GERD without esophagitis Esophageal reflux S/P gastric bypass Bariatric surgery status Stage 3 chronic kidney disease, unspecified whether stage 3a or 3b CKD (HCC) Hypothyroidism, unspecified type Type 2 diabetes mellitus with stage 3 chronic kidney disease, without long-term current use of insulin, unspecified whether stage 3a or 3b CKD (HCC) Moderate episode of recurrent major depressive disorder (HCC) Preoperative examination- Primary Preoperative examination, unspecified 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, 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) Essential hypertension Unspecified essential hypertension Mixed hyperlipidemia Mild intermittent asthma 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 Unspecified asthma MARIBEL (obstructive sleep apnea) Obstructive sleep apnea (adult) (pediatric) Irritable bowel syndrome with diarrhea Irritable bowel syndrome GERD without esophagitis Esophageal reflux S/P gastric bypass Bariatric surgery status Stage 3 chronic kidney disease, unspecified whether stage 3a or 3b CKD (HCC) Renal lesion Unspecified disorder of kidney and ureter Hypothyroidism, unspecified type Moderate episode of recurrent major depressive disorder (HCC) Pre-operative examination- Primary Preoperative examination, unspecified Mild intermittent asthma 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 Unspecified asthma Essential hypertension Unspecified essential hypertension GERD without esophagitis Esophageal reflux Mixed hyperlipidemia Hypothyroidism, unspecified type Irritable bowel syndrome with diarrhea Irritable bowel syndrome Moderate episode of recurrent major depressive disorder (HCC) MARIBEL (obstructive sleep apnea) Obstructive sleep apnea (adult) (pediatric) S/P gastric bypass Bariatric surgery status Renal lesion Unspecified disorder of kidney and ureter Stage 3 chronic kidney disease, unspecified whether stage 3a or 3b CKD (HCC) 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, 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) Hyponatremia Hyposmolality and/or hyponatremia History of total hip replacement, right History of total knee replacement, left Coronary artery disease involving blackfeet coronary artery of blackfeet heart without angina pectoris Urinary tract infection without hematuria, site unspecified SBO (small bowel obstruction) (HCC)- Primary Unspecified intestinal obstruction Acute cystitis without hematuria Acute cystitis Pancreatic cyst Cyst and pseudocyst of pancreas Moderate episode of recurrent major depressive disorder (HCC) Type 2 diabetes mellitus with stage 3 chronic kidney disease, without long-term current use of insulin, unspecified whether stage 3a or 3b CKD (HCC) Pain of ulnar side of wrist- Primary [facility]* Diagnosis Preop examination- Primary Preoperative examination, unspecified Essential hypertension Unspecified essential hypertension MARIBEL (obstructive sleep apnea) Obstructive sleep apnea (adult) (pediatric) Mild intermittent asthma 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 Unspecified asthma Hypothyroidism, unspecified type Type 2 diabetes mellitus with stage 3 chronic kidney disease, without long-term current use of insulin, unspecified whether stage 3a or 3b CKD (HCC) Stage 3 chronic kidney disease, unspecified whether stage 3a or 3b CKD (HCC) Preoperative examination- Primary Preoperative examination, unspecified Essential hypertension Unspecified essential hypertension Mixed hyperlipidemia MARIBEL (obstructive sleep apnea) Obstructive sleep apnea (adult) (pediatric) Mild intermittent asthma 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 Unspecified asthma GERD without esophagitis Esophageal reflux S/P gastric bypass Bariatric surgery status Stage 3 chronic kidney disease, unspecified whether stage 3a or 3b CKD (HCC) Hypothyroidism, unspecified type Type 2 diabetes mellitus with stage 3 chronic kidney disease, without long-term current use of insulin, unspecified whether stage 3a or 3b CKD (HCC) Moderate episode of recurrent major depressive disorder (HCC) Preoperative examination- Primary Preoperative examination, unspecified 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, unspecified whether longterm insulin use (HCC) Essential hypertension Unspecified essential hypertension Mixed hyperlipidemia Mild intermittent asthma 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 Unspecified asthma MARIBEL (obstructive sleep apnea) Obstructive sleep apnea (adult) (pediatric) Irritable bowel syndrome with diarrhea Irritable bowel syndrome GERD without esophagitis Esophageal reflux S/P gastric bypass Bariatric surgery status Stage 3 chronic kidney disease, unspecified whether stage 3a or 3b CKD (HCC) Renal lesion Unspecified disorder of kidney and ureter Hypothyroidism, unspecified type Moderate episode of recurrent major depressive disorder (HCC) Pre-operative examination- Primary Preoperative examination, unspecified Mild intermittent asthma 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 Unspecified asthma Essential hypertension Unspecified essential hypertension GERD without esophagitis Esophageal reflux Mixed hyperlipidemia Hypothyroidism, unspecified type Irritable bowel syndrome with diarrhea Irritable bowel syndrome Moderate episode of recurrent major depressive disorder (HCC) MARIBEL (obstructive sleep apnea) Obstructive sleep apnea (adult) (pediatric) S/P gastric bypass Bariatric surgery status Renal lesion Unspecified disorder of kidney and ureter Stage 3 chronic kidney disease, unspecified whether stage 3a or 3b CKD (HCC) 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, 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 ([facility]) Hyponatremia Hyposmolality and/or hyponatremia History of total hip replacement, right History of total knee replacement, left Coronary artery disease involving blackfeet coronary artery of blackfeet heart without angina pectoris Urinary tract infection without hematuria, site unspecified SBO (small bowel obstruction) ([facility])- Primary Unspecified intestinal obstruction Acute cystitis without hematuria Acute cystitis Pancreatic cyst Cyst and pseudocyst of pancreas Moderate episode of recurrent major depressive disorder (HCC) Type 2 diabetes mellitus with stage 3 chronic kidney disease, without long-term current use of insulin, unspecified whether stage 3a or 3b CKD (HCC) Gastroesophageal reflux disease, unspecified whether esophagitis present [facility] Diagnosis Preop examination- Primary Preoperative examination, unspecified Essential hypertension Unspecified essential hypertension MARIBEL (obstructive sleep apnea) Obstructive sleep apnea (adult) (pediatric) Mild intermittent asthma 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 Unspecified asthma Hypothyroidism, unspecified type Type 2 diabetes mellitus with stage 3 chronic kidney disease, without long-term current use of insulin, unspecified whether stage 3a or 3b CKD (HCC) Stage 3 chronic kidney disease, unspecified whether stage 3a or 3b CKD (HCC) Preoperative examination- Primary Preoperative examination, unspecified Essential hypertension Unspecified essential hypertension Mixed hyperlipidemia MARIBEL (obstructive sleep apnea) Obstructive sleep apnea (adult) (pediatric) Mild intermittent asthma 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 Unspecified asthma GERD without esophagitis Esophageal reflux S/P gastric bypass Bariatric surgery status Stage 3 chronic kidney disease, unspecified whether stage 3a or 3b CKD (HCC) Hypothyroidism, unspecified type Type 2 diabetes mellitus with stage 3 chronic kidney disease, without long-term current use of insulin, unspecified whether stage 3a or 3b CKD (HCC) Moderate episode of recurrent major depressive disorder (HCC) Preoperative examination- Primary Preoperative examination, unspecified 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, unspecified whether longterm insulin use (HCC) Essential hypertension Unspecified essential hypertension Mixed hyperlipidemia Mild intermittent asthma 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 Unspecified asthma MARIBEL (obstructive sleep apnea) Obstructive sleep apnea (adult) (pediatric) Irritable bowel syndrome with diarrhea Irritable bowel syndrome GERD without esophagitis Esophageal reflux S/P gastric bypass Bariatric surgery status Stage 3 chronic kidney disease, unspecified whether stage 3a or 3b CKD (HCC) Renal lesion Unspecified disorder of kidney and ureter Hypothyroidism, unspecified type Moderate episode of recurrent major depressive disorder (HCC) Pre-operative examination- Primary Preoperative examination, unspecified Mild intermittent asthma 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 Unspecified asthma Essential hypertension Unspecified essential hypertension GERD without esophagitis Esophageal reflux Mixed hyperlipidemia Hypothyroidism, unspecified type Irritable bowel syndrome with diarrhea Irritable bowel syndrome Moderate episode of recurrent major depressive disorder (HCC) MARIBEL (obstructive sleep apnea) Obstructive sleep apnea (adult) (pediatric) S/P gastric bypass Bariatric surgery status Renal lesion Unspecified disorder of kidney and ureter Stage 3 chronic kidney disease, unspecified whether stage 3a or 3b CKD (HCC) 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, unspecified whether longterm insulin use (HCC) Hyponatremia Hyposmolality and/or hyponatremia History of total hip replacement, right History of total knee replacement, left Coronary artery disease involving blackfeet coronary artery of blackfeet heart without angina pectoris Urinary tract infection without hematuria, site unspecified SBO (small bowel obstruction) (HCC)- Primary Unspecified intestinal obstruction Acute cystitis without hematuria Acute cystitis Pancreatic cyst Cyst and pseudocyst of pancreas Moderate episode of recurrent major depressive disorder (HCC) Type 2 diabetes mellitus with stage 3 chronic kidney disease, without long-term current use of insulin, unspecified whether stage 3a or 3b CKD (HCC) Controlled type 2 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, without long-term current use of insulin (HCC)- Primary [facility] Diagnosis Preop examination- Primary Preoperative examination, unspecified Essential hypertension Unspecified essential hypertension MARIBEL (obstructive sleep apnea) Obstructive sleep apnea (adult) (pediatric) Mild intermittent asthma 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 Unspecified asthma Hypothyroidism, unspecified type Type 2 diabetes mellitus with stage 3 chronic kidney disease, without long-term current use of insulin, unspecified whether stage 3a or 3b CKD (HCC) Stage 3 chronic kidney disease, unspecified whether stage 3a or 3b CKD (HCC) Preoperative examination- Primary Preoperative examination, unspecified Essential hypertension Unspecified essential hypertension Mixed hyperlipidemia MARIBEL (obstructive sleep apnea) Obstructive sleep apnea (adult) (pediatric) Mild intermittent asthma 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 Unspecified asthma GERD without esophagitis Esophageal reflux S/P gastric bypass Bariatric surgery status Stage 3 chronic kidney disease, unspecified whether stage 3a or 3b CKD (HCC) Hypothyroidism, unspecified type Type 2 diabetes mellitus with stage 3 chronic kidney disease, without long-term current use of insulin, unspecified whether stage 3a or 3b CKD (HCC) Moderate episode of recurrent major depressive disorder (HCC) Preoperative examination- Primary Preoperative examination, unspecified 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, unspecified whether longterm insulin use (HCC) Essential hypertension Unspecified essential hypertension Mixed hyperlipidemia Mild intermittent asthma 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 Unspecified asthma MARIBEL (obstructive sleep apnea) Obstructive sleep apnea (adult) (pediatric) Irritable bowel syndrome with diarrhea Irritable bowel syndrome GERD without esophagitis Esophageal reflux S/P gastric bypass Bariatric surgery status Stage 3 chronic kidney disease, unspecified whether stage 3a or 3b CKD (HCC) Renal lesion Unspecified disorder of kidney and ureter Hypothyroidism, unspecified type Moderate episode of recurrent major depressive disorder (HCC) Pre-operative examination- Primary Preoperative examination, unspecified Mild intermittent asthma 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 Unspecified asthma Essential hypertension Unspecified essential hypertension GERD without esophagitis Esophageal reflux Mixed hyperlipidemia Hypothyroidism, unspecified type Irritable bowel syndrome with diarrhea Irritable bowel syndrome Moderate episode of recurrent major depressive disorder (HCC) MARIBEL (obstructive sleep apnea) Obstructive sleep apnea (adult) (pediatric) S/P gastric bypass Bariatric surgery status Renal lesion Unspecified disorder of kidney and ureter Stage 3 chronic kidney disease, unspecified whether stage 3a or 3b CKD (HCC) 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, unspecified whether longterm insulin use ([facility]) Hyponatremia Hyposmolality and/or hyponatremia History of total hip replacement, right History of total knee replacement, left Coronary artery disease involving blackfeet coronary artery of blackfeet heart without angina pectoris Urinary tract infection without hematuria, site unspecified SBO (small bowel obstruction) ([facility])- Primary Unspecified intestinal obstruction Acute cystitis without hematuria Acute cystitis Pancreatic cyst Cyst and pseudocyst of pancreas Moderate episode of recurrent major depressive disorder (HCC) Type 2 diabetes mellitus with stage 3 chronic kidney disease, without long-term current use of insulin, unspecified whether stage 3a or 3b CKD (HCC) Gastroesophageal reflux disease, unspecified whether esophagitis present Essential hypertension Unspecified essential hypertension [facility]* Diagnosis Preop examination- Primary Preoperative examination, unspecified Essential hypertension Unspecified essential hypertension MARIBEL (obstructive sleep apnea) Obstructive sleep apnea (adult) (pediatric) Mild intermittent asthma without complication Unspecified asthma Hypothyroidism, unspecified type Type 2 diabetes mellitus with stage 3 chronic kidney disease, without long-term current use of insulin, unspecified whether stage 3a or 3b CKD (HCC) Stage 3 chronic kidney disease, unspecified whether stage 3a or 3b CKD (HCC) Preoperative examination- Primary Preoperative examination, unspecified Essential hypertension Unspecified essential hypertension Mixed hyperlipidemia MARIBEL (obstructive sleep apnea) Obstructive sleep apnea (adult) (pediatric) Mild intermittent asthma without complication Unspecified asthma GERD without esophagitis Esophageal reflux S/P gastric bypass Bariatric surgery status Stage 3 chronic kidney disease, unspecified whether stage 3a or 3b CKD (HCC) Hypothyroidism, unspecified type Type 2 diabetes mellitus with stage 3 chronic kidney disease, without long-term current use of insulin, unspecified whether stage 3a or 3b CKD (HCC) Moderate episode of recurrent major depressive disorder (HCC) Preoperative examination- Primary Preoperative examination, unspecified 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, unspecified whether longterm insulin use ([facility]) Essential hypertension Unspecified essential hypertension Mixed hyperlipidemia Mild intermittent asthma without complication Unspecified asthma MARIBEL (obstructive sleep apnea) Obstructive sleep apnea (adult) (pediatric) Irritable bowel syndrome with diarrhea Irritable bowel syndrome GERD without esophagitis Esophageal reflux S/P gastric bypass Bariatric surgery status Stage 3 chronic kidney disease, unspecified whether stage 3a or 3b CKD (HCC) Renal lesion Unspecified disorder of kidney and ureter Hypothyroidism, unspecified type Moderate episode of recurrent major depressive disorder (HCC) Pre-operative examination- Primary Preoperative examination, unspecified Mild intermittent asthma without complication Unspecified asthma Essential hypertension Unspecified essential hypertension GERD without esophagitis Esophageal reflux Mixed hyperlipidemia Hypothyroidism, unspecified type Irritable bowel syndrome with diarrhea Irritable bowel syndrome Moderate episode of recurrent major depressive disorder (HCC) MARIBEL (obstructive sleep apnea) Obstructive sleep apnea (adult) (pediatric) S/P gastric bypass Bariatric surgery status Renal lesion Unspecified disorder of kidney and ureter Stage 3 chronic kidney disease, unspecified whether stage 3a or 3b CKD (HCC) 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, 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) Hyponatremia Hyposmolality and/or hyponatremia History of total hip replacement, right History of total knee replacement, left Coronary artery disease involving blackfeet coronary artery of blackfeet heart without angina pectoris Urinary tract infection without hematuria, site unspecified SBO (small bowel obstruction) (HCC)- Primary Unspecified intestinal obstruction Acute cystitis without hematuria Acute cystitis Pancreatic cyst Cyst and pseudocyst of pancreas Moderate episode of recurrent major depressive disorder (HCC) Type 2 diabetes mellitus with stage 3 chronic kidney disease, without long-term current use of insulin, unspecified whether stage 3a or 3b CKD (HCC) Asymptomatic postmenopausal state- Primary Closed fracture of right foot with routine healing, subsequent encounter [facility]* Diagnosis Preop examination- Primary Preoperative examination, unspecified Essential hypertension Unspecified essential hypertension MARIBEL (obstructive sleep apnea) Obstructive sleep apnea (adult) (pediatric) Mild intermittent asthma without complication (HCC) Unspecified asthma Hypothyroidism, unspecified type Type 2 diabetes mellitus with stage 3 chronic kidney disease, without long-term current use of insulin, unspecified whether stage 3a or 3b CKD (HCC) Stage 3 chronic kidney disease, unspecified whether stage 3a or 3b CKD (HCC) Preoperative examination- Primary Preoperative examination, unspecified Essential hypertension Unspecified essential hypertension Mixed hyperlipidemia MARIBEL (obstructive sleep apnea) Obstructive sleep apnea (adult) (pediatric) Mild intermittent asthma without complication (HCC) Unspecified asthma GERD without esophagitis Esophageal reflux S/P gastric bypass Bariatric surgery status Stage 3 chronic kidney disease, unspecified whether stage 3a or 3b CKD (HCC) Hypothyroidism, unspecified type Type 2 diabetes mellitus with stage 3 chronic kidney disease, without long-term current use of insulin, unspecified whether stage 3a or 3b CKD (HCC) Moderate episode of recurrent major depressive disorder (HCC) Preoperative examination- Primary Preoperative examination, unspecified 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, unspecified whether longterm insulin use (HCC) Essential hypertension Unspecified essential hypertension Mixed hyperlipidemia Mild intermittent asthma without complication (HCC) Unspecified asthma MARIBEL (obstructive sleep apnea) Obstructive sleep apnea (adult) (pediatric) Irritable bowel syndrome with diarrhea Irritable bowel syndrome GERD without esophagitis Esophageal reflux S/P gastric bypass Bariatric surgery status Stage 3 chronic kidney disease, unspecified whether stage 3a or 3b CKD (HCC) Renal lesion Unspecified disorder of kidney and ureter Hypothyroidism, unspecified type Moderate episode of recurrent major depressive disorder (HCC) Pre-operative examination- Primary Preoperative examination, unspecified Mild intermittent asthma without complication (HCC) Unspecified asthma Essential hypertension Unspecified essential hypertension GERD without esophagitis Esophageal reflux Mixed hyperlipidemia Hypothyroidism, unspecified type Irritable bowel syndrome with diarrhea Irritable bowel syndrome Moderate episode of recurrent major depressive disorder (HCC) MARIBEL (obstructive sleep apnea) Obstructive sleep apnea (adult) (pediatric) S/P gastric bypass Bariatric surgery status Renal lesion Unspecified disorder of kidney and ureter Stage 3 chronic kidney disease, unspecified whether stage 3a or 3b CKD (HCC) 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, unspecified whether longterm insulin use (HCC) Hyponatremia Hyposmolality and/or hyponatremia History of total hip replacement, right History of total knee replacement, left Coronary artery disease involving blackfeet coronary artery of blackfeet heart without angina pectoris Urinary tract infection without hematuria, site unspecified SBO (small bowel obstruction) (HCC)- Primary Unspecified intestinal obstruction Acute cystitis without hematuria Acute cystitis Pancreatic cyst (HCC) Cyst and pseudocyst of pancreas Moderate episode of recurrent major depressive disorder (HCC) Type 2 diabetes mellitus with stage 3 chronic kidney disease, without long-term current use of insulin, unspecified whether stage 3a or 3b CKD (HCC) Other specified hypothyroidism [facility]* Diagnosis Preop examination- Primary Preoperative examination, unspecified Essential hypertension Unspecified essential hypertension MARIBEL (obstructive sleep apnea) Obstructive sleep apnea (adult) (pediatric) Mild intermittent asthma without complication (HCC) Unspecified asthma Hypothyroidism, unspecified type Type 2 diabetes mellitus with stage 3 chronic kidney disease, without long-term current use of insulin, unspecified whether stage 3a or 3b CKD (HCC) Stage 3 chronic kidney disease, unspecified whether stage 3a or 3b CKD (HCC) Preoperative examination- Primary Preoperative examination, unspecified Essential hypertension Unspecified essential hypertension Mixed hyperlipidemia MARIBEL (obstructive sleep apnea) Obstructive sleep apnea (adult) (pediatric) Mild intermittent asthma without complication (HCC) Unspecified asthma GERD without esophagitis Esophageal reflux S/P gastric bypass Bariatric surgery status Stage 3 chronic kidney disease, unspecified whether stage 3a or 3b CKD (HCC) Hypothyroidism, unspecified type Type 2 diabetes mellitus with stage 3 chronic kidney disease, without long-term current use of insulin, unspecified whether stage 3a or 3b CKD (HCC) Moderate episode of recurrent major depressive disorder (HCC) Preoperative examination- Primary Preoperative examination, unspecified 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, unspecified whether longterm insulin use (HCC) Essential hypertension Unspecified essential hypertension Mixed hyperlipidemia Mild intermittent asthma without complication (HCC) Unspecified asthma MARIBEL (obstructive sleep apnea) Obstructive sleep apnea (adult) (pediatric) Irritable bowel syndrome with diarrhea Irritable bowel syndrome GERD without esophagitis Esophageal reflux S/P gastric bypass Bariatric surgery status Stage 3 chronic kidney disease, unspecified whether stage 3a or 3b CKD (HCC) Renal lesion Unspecified disorder of kidney and ureter Hypothyroidism, unspecified type Moderate episode of recurrent major depressive disorder (HCC) Pre-operative examination- Primary Preoperative examination, unspecified Mild intermittent asthma without complication (HCC) Unspecified asthma Essential hypertension Unspecified essential hypertension GERD without esophagitis Esophageal reflux Mixed hyperlipidemia Hypothyroidism, unspecified type Irritable bowel syndrome with diarrhea Irritable bowel syndrome Moderate episode of recurrent major depressive disorder (HCC) MARIBEL (obstructive sleep apnea) Obstructive sleep apnea (adult) (pediatric) S/P gastric bypass Bariatric surgery status Renal lesion Unspecified disorder of kidney and ureter Stage 3 chronic kidney disease, unspecified whether stage 3a or 3b CKD (HCC) 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, unspecified whether longterm insulin use (HCC) Hyponatremia Hyposmolality and/or hyponatremia History of total hip replacement, right History of total knee replacement, left Coronary artery disease involving blackfeet coronary artery of blackfeet heart without angina pectoris Urinary tract infection without hematuria, site unspecified SBO (small bowel obstruction) ([facility])- Primary Unspecified intestinal obstruction Acute cystitis without hematuria Acute cystitis Pancreatic cyst (HCC) Cyst and pseudocyst of pancreas Moderate episode of recurrent major depressive disorder (HCC) Type 2 diabetes mellitus with stage 3 chronic kidney disease, without long-term current use of insulin, unspecified whether stage 3a or 3b CKD (HCC) Encounter for screening mammogram for breast cancer documented in this encounter [facility] note* Diagnosis Preop examination- Primary Preoperative examination, unspecified Essential hypertension Unspecified essential hypertension MARIBEL (obstructive sleep apnea) Obstructive sleep apnea (adult) (pediatric) Mild intermittent asthma without complication (HCC) Unspecified asthma Hypothyroidism, unspecified type Type 2 diabetes mellitus with stage 3 chronic kidney disease, without long-term current use of insulin, unspecified whether stage 3a or 3b CKD (HCC) Stage 3 chronic kidney disease, unspecified whether stage 3a or 3b CKD (HCC) Preoperative examination- Primary Preoperative examination, unspecified Essential hypertension Unspecified essential hypertension Mixed hyperlipidemia MARIBEL (obstructive sleep apnea) Obstructive sleep apnea (adult) (pediatric) Mild intermittent asthma without complication (HCC) Unspecified asthma GERD without esophagitis Esophageal reflux S/P gastric bypass Bariatric surgery status Stage 3 chronic kidney disease, unspecified whether stage 3a or 3b CKD (HCC) Hypothyroidism, unspecified type Type 2 diabetes mellitus with stage 3 chronic kidney disease, without long-term current use of insulin, unspecified whether stage 3a or 3b CKD (HCC) Moderate episode of recurrent major depressive disorder (HCC) Preoperative examination- Primary Preoperative examination, unspecified 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, 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) Essential hypertension Unspecified essential hypertension Mixed hyperlipidemia Mild intermittent asthma without complication (HCC) Unspecified asthma MARIBEL (obstructive sleep apnea) Obstructive sleep apnea (adult) (pediatric) Irritable bowel syndrome with diarrhea Irritable bowel syndrome GERD without esophagitis Esophageal reflux S/P gastric bypass Bariatric surgery status Stage 3 chronic kidney disease, unspecified whether stage 3a or 3b CKD (HCC) Renal lesion Unspecified disorder of kidney and ureter Hypothyroidism, unspecified type Moderate episode of recurrent major depressive disorder (HCC) Pre-operative examination- Primary Preoperative examination, unspecified Mild intermittent asthma without complication (HCC) Unspecified asthma Essential hypertension Unspecified essential hypertension GERD without esophagitis Esophageal reflux Mixed hyperlipidemia Hypothyroidism, unspecified type Irritable bowel syndrome with diarrhea Irritable bowel syndrome Moderate episode of recurrent major depressive disorder (HCC) MARIBEL (obstructive sleep apnea) Obstructive sleep apnea (adult) (pediatric) S/P gastric bypass Bariatric surgery status Renal lesion Unspecified disorder of kidney and ureter Stage 3 chronic kidney disease, unspecified whether stage 3a or 3b CKD (HCC) 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, unspecified whether longterm insulin use (HCC) Hyponatremia Hyposmolality and/or hyponatremia History of total hip replacement, right History of total knee replacement, left Coronary artery disease involving blackfeet coronary artery of blackfeet heart without angina pectoris Urinary tract infection without hematuria, site unspecified SBO (small bowel obstruction) (HCC)- Primary Unspecified intestinal obstruction Acute cystitis without hematuria Acute cystitis Pancreatic cyst (HCC) Cyst and pseudocyst of pancreas Moderate episode of recurrent major depressive disorder (HCC) Type 2 diabetes mellitus with stage 3 chronic kidney disease, without long-term current use of insulin, unspecified whether stage 3a or 3b CKD (HCC) Pes anserinus bursitis of right knee- Primary Pes anserinus tendinitis or bursitis It band syndrome, right Status post right [facility] Diagnosis Preop examination- Primary Preoperative examination, unspecified Essential hypertension Unspecified essential hypertension MARIBEL (obstructive sleep apnea) Obstructive sleep apnea (adult) (pediatric) Mild intermittent asthma without complication (HCC) Unspecified asthma Hypothyroidism, unspecified type Type 2 diabetes mellitus with stage 3 chronic kidney disease, without long-term current use of insulin, unspecified whether stage 3a or 3b CKD (HCC) Stage 3 chronic kidney disease, unspecified whether stage 3a or 3b CKD (HCC) Preoperative examination- Primary Preoperative examination, unspecified Essential hypertension Unspecified essential hypertension Mixed hyperlipidemia MARIBEL (obstructive sleep apnea) Obstructive sleep apnea (adult) (pediatric) Mild intermittent asthma without complication (HCC) Unspecified asthma GERD without esophagitis Esophageal reflux S/P gastric bypass Bariatric surgery status Stage 3 chronic kidney disease, unspecified whether stage 3a or 3b CKD (HCC) Hypothyroidism, unspecified type Type 2 diabetes mellitus with stage 3 chronic kidney disease, without long-term current use of insulin, unspecified whether stage 3a or 3b CKD (HCC) Moderate episode of recurrent major depressive disorder (HCC) Preoperative examination- Primary Preoperative examination, unspecified 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, 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) Essential hypertension Unspecified essential hypertension Mixed hyperlipidemia Mild intermittent asthma without complication (HCC) Unspecified asthma MARIBEL (obstructive sleep apnea) Obstructive sleep apnea (adult) (pediatric) Irritable bowel syndrome with diarrhea Irritable bowel syndrome GERD without esophagitis Esophageal reflux S/P gastric bypass Bariatric surgery status Stage 3 chronic kidney disease, unspecified whether stage 3a or 3b CKD (HCC) Renal lesion Unspecified disorder of kidney and ureter Hypothyroidism, unspecified type Moderate episode of recurrent major depressive disorder (HCC) Pre-operative examination- Primary Preoperative examination, unspecified Mild intermittent asthma without complication (HCC) Unspecified asthma Essential hypertension Unspecified essential hypertension GERD without esophagitis Esophageal reflux Mixed hyperlipidemia Hypothyroidism, unspecified type Irritable bowel syndrome with diarrhea Irritable bowel syndrome Moderate episode of recurrent major depressive disorder (HCC) MARIBEL (obstructive sleep apnea) Obstructive sleep apnea (adult) (pediatric) S/P gastric bypass Bariatric surgery status Renal lesion Unspecified disorder of kidney and ureter Stage 3 chronic kidney disease, unspecified whether stage 3a or 3b CKD (HCC) 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, 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) Hyponatremia Hyposmolality and/or hyponatremia History of total hip replacement, right History of total knee replacement, left Coronary artery disease involving blackfeet coronary artery of blackfeet heart without angina pectoris Urinary tract infection without hematuria, site unspecified SBO (small bowel obstruction) (HCC)- Primary Unspecified intestinal obstruction Acute cystitis without hematuria Acute cystitis Pancreatic cyst (HCC) Cyst and pseudocyst of pancreas Moderate episode of recurrent major depressive disorder (HCC) Type 2 diabetes mellitus with stage 3 chronic kidney disease, without long-term current use of insulin, unspecified whether stage 3a or 3b CKD (HCC) Right knee pain, unspecified chronicity [facility] Diagnosis Preop examination- Primary Preoperative examination, unspecified Essential hypertension Unspecified essential hypertension MARIBEL (obstructive sleep apnea) Obstructive sleep apnea (adult) (pediatric) Mild intermittent asthma without complication (HCC) Unspecified asthma Hypothyroidism, unspecified type Type 2 diabetes mellitus with stage 3 chronic kidney disease, without long-term current use of insulin, unspecified whether stage 3a or 3b CKD (HCC) Stage 3 chronic kidney disease, unspecified whether stage 3a or 3b CKD (HCC) Preoperative examination- Primary Preoperative examination, unspecified Essential hypertension Unspecified essential hypertension Mixed hyperlipidemia MARIBEL (obstructive sleep apnea) Obstructive sleep apnea (adult) (pediatric) Mild intermittent asthma without complication (HCC) Unspecified asthma GERD without esophagitis Esophageal reflux S/P gastric bypass Bariatric surgery status Stage 3 chronic kidney disease, unspecified whether stage 3a or 3b CKD (HCC) Hypothyroidism, unspecified type Type 2 diabetes mellitus with stage 3 chronic kidney disease, without long-term current use of insulin, unspecified whether stage 3a or 3b CKD (HCC) Moderate episode of recurrent major depressive disorder (HCC) Preoperative examination- Primary Preoperative examination, unspecified 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, unspecified whether longterm insulin use (HCC) Essential hypertension Unspecified essential hypertension Mixed hyperlipidemia Mild intermittent asthma without complication (HCC) Unspecified asthma MARIBEL (obstructive sleep apnea) Obstructive sleep apnea (adult) (pediatric) Irritable bowel syndrome with diarrhea Irritable bowel syndrome GERD without esophagitis Esophageal reflux S/P gastric bypass Bariatric surgery status Stage 3 chronic kidney disease, unspecified whether stage 3a or 3b CKD (HCC) Renal lesion Unspecified disorder of kidney and ureter Hypothyroidism, unspecified type Moderate episode of recurrent major depressive disorder (HCC) Pre-operative examination- Primary Preoperative examination, unspecified Mild intermittent asthma without complication (HCC) Unspecified asthma Essential hypertension Unspecified essential hypertension GERD without esophagitis Esophageal reflux Mixed hyperlipidemia Hypothyroidism, unspecified type Irritable bowel syndrome with diarrhea Irritable bowel syndrome Moderate episode of recurrent major depressive disorder (HCC) MARIBEL (obstructive sleep apnea) Obstructive sleep apnea (adult) (pediatric) S/P gastric bypass Bariatric surgery status Renal lesion Unspecified disorder of kidney and ureter Stage 3 chronic kidney disease, unspecified whether stage 3a or 3b CKD (HCC) 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, 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) Hyponatremia Hyposmolality and/or hyponatremia History of total hip replacement, right History of total knee replacement, left Coronary artery disease involving blackfeet coronary artery of blackfeet heart without angina pectoris Urinary tract infection without hematuria, site unspecified SBO (small bowel obstruction) (HCC)- Primary Unspecified intestinal obstruction Acute cystitis without hematuria Acute cystitis Pancreatic cyst (HCC) Cyst and pseudocyst of pancreas Moderate episode of recurrent major depressive disorder (HCC) Type 2 diabetes mellitus with stage 3 chronic kidney disease, without long-term current use of insulin, unspecified whether stage 3a or 3b CKD (HCC) Moderate episode of recurrent major depressive disorder (HCC) [facility] Diagnosis Preop examination- Primary Preoperative examination, unspecified Essential hypertension Unspecified essential hypertension MARIBEL (obstructive sleep apnea) Obstructive sleep apnea (adult) (pediatric) Mild intermittent asthma without complication (HCC) Unspecified asthma Hypothyroidism, unspecified type Type 2 diabetes mellitus with stage 3 chronic kidney disease, without long-term current use of insulin, unspecified whether stage 3a or 3b CKD (HCC) Stage 3 chronic kidney disease, unspecified whether stage 3a or 3b CKD (HCC) Preoperative examination- Primary Preoperative examination, unspecified Essential hypertension Unspecified essential hypertension Mixed hyperlipidemia MARIBEL (obstructive sleep apnea) Obstructive sleep apnea (adult) (pediatric) Mild intermittent asthma without complication (HCC) Unspecified asthma GERD without esophagitis Esophageal reflux S/P gastric bypass Bariatric surgery status Stage 3 chronic kidney disease, unspecified whether stage 3a or 3b CKD (HCC) Hypothyroidism, unspecified type Type 2 diabetes mellitus with stage 3 chronic kidney disease, without long-term current use of insulin, unspecified whether stage 3a or 3b CKD (HCC) Moderate episode of recurrent major depressive disorder (HCC) Preoperative examination- Primary Preoperative examination, unspecified 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, unspecified whether longterm insulin use (HCC) Essential hypertension Unspecified essential hypertension Mixed hyperlipidemia Mild intermittent asthma without complication (HCC) Unspecified asthma MARIBEL (obstructive sleep apnea) Obstructive sleep apnea (adult) (pediatric) Irritable bowel syndrome with diarrhea Irritable bowel syndrome GERD without esophagitis Esophageal reflux S/P gastric bypass Bariatric surgery status Stage 3 chronic kidney disease, unspecified whether stage 3a or 3b CKD (HCC) Renal lesion Unspecified disorder of kidney and ureter Hypothyroidism, unspecified type Moderate episode of recurrent major depressive disorder (HCC) Pre-operative examination- Primary Preoperative examination, unspecified Mild intermittent asthma without complication (HCC) Unspecified asthma Essential hypertension Unspecified essential hypertension GERD without esophagitis Esophageal reflux Mixed hyperlipidemia Hypothyroidism, unspecified type Irritable bowel syndrome with diarrhea Irritable bowel syndrome Moderate episode of recurrent major depressive disorder (HCC) MARIBEL (obstructive sleep apnea) Obstructive sleep apnea (adult) (pediatric) S/P gastric bypass Bariatric surgery status Renal lesion Unspecified disorder of kidney and ureter Stage 3 chronic kidney disease, unspecified whether stage 3a or 3b CKD (HCC) 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, 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 ([facility]) Hyponatremia Hyposmolality and/or hyponatremia History of total hip replacement, right History of total knee replacement, left Coronary artery disease involving blackfeet coronary artery of blackfeet heart without angina pectoris Urinary tract infection without hematuria, site unspecified SBO (small bowel obstruction) ([facility])- Primary Unspecified intestinal obstruction Acute cystitis without hematuria Acute cystitis Pancreatic cyst ([facility]) Cyst and pseudocyst of pancreas Moderate episode of recurrent major depressive disorder (HCC) Type 2 diabetes mellitus with stage 3 chronic kidney disease, without long-term current use of insulin, unspecified whether stage 3a or 3b CKD (HCC) Other specified hypothyroidism [facility]* Diagnosis Preop examination- Primary Preoperative examination, unspecified Essential hypertension Unspecified essential hypertension MARIBEL (obstructive sleep apnea) Obstructive sleep apnea (adult) (pediatric) Mild intermittent asthma without complication (HCC) Unspecified asthma Hypothyroidism, unspecified type Type 2 diabetes mellitus with stage 3 chronic kidney disease, without long-term current use of insulin, unspecified whether stage 3a or 3b CKD (HCC) Stage 3 chronic kidney disease, unspecified whether stage 3a or 3b CKD (HCC) Preoperative examination- Primary Preoperative examination, unspecified Essential hypertension Unspecified essential hypertension Mixed hyperlipidemia MARIBEL (obstructive sleep apnea) Obstructive sleep apnea (adult) (pediatric) Mild intermittent asthma without complication (HCC) Unspecified asthma GERD without esophagitis Esophageal reflux S/P gastric bypass Bariatric surgery status Stage 3 chronic kidney disease, unspecified whether stage 3a or 3b CKD (HCC) Hypothyroidism, unspecified type Type 2 diabetes mellitus with stage 3 chronic kidney disease, without long-term current use of insulin, unspecified whether stage 3a or 3b CKD (HCC) Moderate episode of recurrent major depressive disorder (HCC) Preoperative examination- Primary Preoperative examination, unspecified 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, unspecified whether longterm insulin use (HCC) Essential hypertension Unspecified essential hypertension Mixed hyperlipidemia Mild intermittent asthma without complication (HCC) Unspecified asthma MARIBEL (obstructive sleep apnea) Obstructive sleep apnea (adult) (pediatric) Irritable bowel syndrome with diarrhea Irritable bowel syndrome GERD without esophagitis Esophageal reflux S/P gastric bypass Bariatric surgery status Stage 3 chronic kidney disease, unspecified whether stage 3a or 3b CKD (HCC) Renal lesion Unspecified disorder of kidney and ureter Hypothyroidism, unspecified type Moderate episode of recurrent major depressive disorder (HCC) Pre-operative examination- Primary Preoperative examination, unspecified Mild intermittent asthma without complication (HCC) Unspecified asthma Essential hypertension Unspecified essential hypertension GERD without esophagitis Esophageal reflux Mixed hyperlipidemia Hypothyroidism, unspecified type Irritable bowel syndrome with diarrhea Irritable bowel syndrome Moderate episode of recurrent major depressive disorder (HCC) MARIBEL (obstructive sleep apnea) Obstructive sleep apnea (adult) (pediatric) S/P gastric bypass Bariatric surgery status Renal lesion Unspecified disorder of kidney and ureter Stage 3 chronic kidney disease, unspecified whether stage 3a or 3b CKD (HCC) 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, unspecified whether longterm insulin use (HCC) Hyponatremia Hyposmolality and/or hyponatremia History of total hip replacement, right History of total knee replacement, left Coronary artery disease involving blackfeet coronary artery of blackfeet heart without angina pectoris Urinary tract infection without hematuria, site unspecified SBO (small bowel obstruction) ([facility])- Primary Unspecified intestinal obstruction Acute cystitis without hematuria Acute cystitis Pancreatic cyst (HCC) Cyst and pseudocyst of pancreas Moderate episode of recurrent major depressive disorder (HCC) Type 2 diabetes mellitus with stage 3 chronic kidney disease, without long-term current use of insulin, unspecified whether stage 3a or 3b CKD (HCC) Impaired strength of lower extremity- Primary Impingement syndrome of right shoulder Other affections of shoulder region, not elsewhere classified Rotator cuff strain, right, subsequent encounter Balance disorder Other symptoms involving nervous and musculoskeletal systems Iliotibial band syndrome of right side Other disorder of muscle, ligament, and fascia [facility]* Diagnosis Preop examination- Primary Preoperative examination, unspecified Essential hypertension Unspecified essential hypertension MARIBEL (obstructive sleep apnea) Obstructive sleep apnea (adult) (pediatric) Mild intermittent asthma without complication (HCC) Unspecified asthma Hypothyroidism, unspecified type Type 2 diabetes mellitus with stage 3 chronic kidney disease, without long-term current use of insulin, unspecified whether stage 3a or 3b CKD (HCC) Stage 3 chronic kidney disease, unspecified whether stage 3a or 3b CKD (HCC) Preoperative examination- Primary Preoperative examination, unspecified Essential hypertension Unspecified essential hypertension Mixed hyperlipidemia MARIBEL (obstructive sleep apnea) Obstructive sleep apnea (adult) (pediatric) Mild intermittent asthma without complication (HCC) Unspecified asthma GERD without esophagitis Esophageal reflux S/P gastric bypass Bariatric surgery status Stage 3 chronic kidney disease, unspecified whether stage 3a or 3b CKD (HCC) Hypothyroidism, unspecified type Type 2 diabetes mellitus with stage 3 chronic kidney disease, without long-term current use of insulin, unspecified whether stage 3a or 3b CKD (HCC) Moderate episode of recurrent major depressive disorder (HCC) Preoperative examination- Primary Preoperative examination, unspecified 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, 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) Essential hypertension Unspecified essential hypertension Mixed hyperlipidemia Mild intermittent asthma without complication (HCC) Unspecified asthma MARIBEL (obstructive sleep apnea) Obstructive sleep apnea (adult) (pediatric) Irritable bowel syndrome with diarrhea Irritable bowel syndrome GERD without esophagitis Esophageal reflux S/P gastric bypass Bariatric surgery status Stage 3 chronic kidney disease, unspecified whether stage 3a or 3b CKD (HCC) Renal lesion Unspecified disorder of kidney and ureter Hypothyroidism, unspecified type Moderate episode of recurrent major depressive disorder (HCC) Pre-operative examination- Primary Preoperative examination, unspecified Mild intermittent asthma without complication (HCC) Unspecified asthma Essential hypertension Unspecified essential hypertension GERD without esophagitis Esophageal reflux Mixed hyperlipidemia Hypothyroidism, unspecified type Irritable bowel syndrome with diarrhea Irritable bowel syndrome Moderate episode of recurrent major depressive disorder (HCC) MARIBEL (obstructive sleep apnea) Obstructive sleep apnea (adult) (pediatric) S/P gastric bypass Bariatric surgery status Renal lesion Unspecified disorder of kidney and ureter Stage 3 chronic kidney disease, unspecified whether stage 3a or 3b CKD (HCC) 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, unspecified whether longterm insulin use (HCC) Hyponatremia Hyposmolality and/or hyponatremia History of total hip replacement, right History of total knee replacement, left Coronary artery disease involving blackfeet coronary artery of blackfeet heart without angina pectoris Urinary tract infection without hematuria, site unspecified SBO (small bowel obstruction) (HCC)- Primary Unspecified intestinal obstruction Acute cystitis without hematuria Acute cystitis Pancreatic cyst (HCC) Cyst and pseudocyst of pancreas Moderate episode of recurrent major depressive disorder (HCC) Type 2 diabetes mellitus with stage 3 chronic kidney disease, without long-term current use of insulin, unspecified whether stage 3a or 3b CKD (HCC) Impingement syndrome of right shoulder- Primary Other affections of shoulder region, not elsewhere classified Rotator cuff strain, right, subsequent [facility] Diagnosis Preop examination- Primary Preoperative examination, unspecified Essential hypertension Unspecified essential hypertension MARIBEL (obstructive sleep apnea) Obstructive sleep apnea (adult) (pediatric) Mild intermittent asthma without complication (HCC) Unspecified asthma Hypothyroidism, unspecified type Type 2 diabetes mellitus with stage 3 chronic kidney disease, without long-term current use of insulin, unspecified whether stage 3a or 3b CKD (HCC) Stage 3 chronic kidney disease, unspecified whether stage 3a or 3b CKD (HCC) Preoperative examination- Primary Preoperative examination, unspecified Essential hypertension Unspecified essential hypertension Mixed hyperlipidemia MARIBEL (obstructive sleep apnea) Obstructive sleep apnea (adult) (pediatric) Mild intermittent asthma without complication (HCC) Unspecified asthma GERD without esophagitis Esophageal reflux S/P gastric bypass Bariatric surgery status Stage 3 chronic kidney disease, unspecified whether stage 3a or 3b CKD (HCC) Hypothyroidism, unspecified type Type 2 diabetes mellitus with stage 3 chronic kidney disease, without long-term current use of insulin, unspecified whether stage 3a or 3b CKD (HCC) Moderate episode of recurrent major depressive disorder (HCC) Preoperative examination- Primary Preoperative examination, unspecified 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, unspecified whether longterm insulin use (HCC) Essential hypertension Unspecified essential hypertension Mixed hyperlipidemia Mild intermittent asthma without complication (HCC) Unspecified asthma MARIBEL (obstructive sleep apnea) Obstructive sleep apnea (adult) (pediatric) Irritable bowel syndrome with diarrhea Irritable bowel syndrome GERD without esophagitis Esophageal reflux S/P gastric bypass Bariatric surgery status Stage 3 chronic kidney disease, unspecified whether stage 3a or 3b CKD (HCC) Renal lesion Unspecified disorder of kidney and ureter Hypothyroidism, unspecified type Moderate episode of recurrent major depressive disorder (HCC) Pre-operative examination- Primary Preoperative examination, unspecified Mild intermittent asthma without complication (HCC) Unspecified asthma Essential hypertension Unspecified essential hypertension GERD without esophagitis Esophageal reflux Mixed hyperlipidemia Hypothyroidism, unspecified type Irritable bowel syndrome with diarrhea Irritable bowel syndrome Moderate episode of recurrent major depressive disorder (HCC) MARIBEL (obstructive sleep apnea) Obstructive sleep apnea (adult) (pediatric) S/P gastric bypass Bariatric surgery status Renal lesion Unspecified disorder of kidney and ureter Stage 3 chronic kidney disease, unspecified whether stage 3a or 3b CKD (HCC) 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, unspecified whether longterm insulin use (HCC) Hyponatremia Hyposmolality and/or hyponatremia History of total hip replacement, right History of total knee replacement, left Coronary artery disease involving blackfeet coronary artery of blackfeet heart without angina pectoris Urinary tract infection without hematuria, site unspecified SBO (small bowel obstruction) (HCC)- Primary Unspecified intestinal obstruction Acute cystitis without hematuria Acute cystitis Pancreatic cyst (HCC) Cyst and pseudocyst of pancreas Moderate episode of recurrent major depressive disorder (HCC) Type 2 diabetes mellitus with stage 3 chronic kidney disease, without long-term current use of insulin, unspecified whether stage 3a or 3b CKD (HCC) Impingement syndrome of right shoulder Other affections of shoulder region, not elsewhere classified Rotator cuff strain, right, subsequent encounter [facility]* Diagnosis Preop examination- Primary Preoperative examination, unspecified Essential hypertension Unspecified essential hypertension MARIBEL (obstructive sleep apnea) Obstructive sleep apnea (adult) (pediatric) Mild intermittent asthma without complication (HCC) Unspecified asthma Hypothyroidism, unspecified type Type 2 diabetes mellitus with stage 3 chronic kidney disease, without long-term current use of insulin, unspecified whether stage 3a or 3b CKD (HCC) Stage 3 chronic kidney disease, unspecified whether stage 3a or 3b CKD (HCC) Preoperative examination- Primary Preoperative examination, unspecified Essential hypertension Unspecified essential hypertension Mixed hyperlipidemia MARIBEL (obstructive sleep apnea) Obstructive sleep apnea (adult) (pediatric) Mild intermittent asthma without complication (HCC) Unspecified asthma GERD without esophagitis Esophageal reflux S/P gastric bypass Bariatric surgery status Stage 3 chronic kidney disease, unspecified whether stage 3a or 3b CKD (HCC) Hypothyroidism, unspecified type Type 2 diabetes mellitus with stage 3 chronic kidney disease, without long-term current use of insulin, unspecified whether stage 3a or 3b CKD (HCC) Moderate episode of recurrent major depressive disorder (HCC) Preoperative examination- Primary Preoperative examination, unspecified 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, unspecified whether longterm insulin use (HCC) Essential hypertension Unspecified essential hypertension Mixed hyperlipidemia Mild intermittent asthma without complication (HCC) Unspecified asthma MARIBEL (obstructive sleep apnea) Obstructive sleep apnea (adult) (pediatric) Irritable bowel syndrome with diarrhea Irritable bowel syndrome GERD without esophagitis Esophageal reflux S/P gastric bypass Bariatric surgery status Stage 3 chronic kidney disease, unspecified whether stage 3a or 3b CKD (HCC) Renal lesion Unspecified disorder of kidney and ureter Hypothyroidism, unspecified type Moderate episode of recurrent major depressive disorder (HCC) Pre-operative examination- Primary Preoperative examination, unspecified Mild intermittent asthma without complication (HCC) Unspecified asthma Essential hypertension Unspecified essential hypertension GERD without esophagitis Esophageal reflux Mixed hyperlipidemia Hypothyroidism, unspecified type Irritable bowel syndrome with diarrhea Irritable bowel syndrome Moderate episode of recurrent major depressive disorder (HCC) MARIBEL (obstructive sleep apnea) Obstructive sleep apnea (adult) (pediatric) S/P gastric bypass Bariatric surgery status Renal lesion Unspecified disorder of kidney and ureter Stage 3 chronic kidney disease, unspecified whether stage 3a or 3b CKD (HCC) 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, 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) Hyponatremia Hyposmolality and/or hyponatremia History of total hip replacement, right History of total knee replacement, left Coronary artery disease involving blackfeet coronary artery of blackfeet heart without angina pectoris Urinary tract infection without hematuria, site unspecified SBO (small bowel obstruction) (HCC)- Primary Unspecified intestinal obstruction Acute cystitis without hematuria Acute cystitis Pancreatic cyst (HCC) Cyst and pseudocyst of pancreas Moderate episode of recurrent major depressive disorder (HCC) Type 2 diabetes mellitus with stage 3 chronic kidney disease, without long-term current use of insulin, unspecified whether stage 3a or 3b CKD (HCC) Impaired strength of lower extremity- Primary Balance disorder Other symptoms involving nervous and musculoskeletal systems Iliotibial band syndrome of right side Other disorder of muscle, ligament, and fascia [facility] Diagnosis Preop examination- Primary Preoperative examination, unspecified Essential hypertension Unspecified essential hypertension MARIBEL (obstructive sleep apnea) Obstructive sleep apnea (adult) (pediatric) Mild intermittent asthma without complication (HCC) Unspecified asthma Hypothyroidism, unspecified type Type 2 diabetes mellitus with stage 3 chronic kidney disease, without long-term current use of insulin, unspecified whether stage 3a or 3b CKD (HCC) Stage 3 chronic kidney disease, unspecified whether stage 3a or 3b CKD (HCC) Preoperative examination- Primary Preoperative examination, unspecified Essential hypertension Unspecified essential hypertension Mixed hyperlipidemia MARIBEL (obstructive sleep apnea) Obstructive sleep apnea (adult) (pediatric) Mild intermittent asthma without complication (HCC) Unspecified asthma GERD without esophagitis Esophageal reflux S/P gastric bypass Bariatric surgery status Stage 3 chronic kidney disease, unspecified whether stage 3a or 3b CKD (HCC) Hypothyroidism, unspecified type Type 2 diabetes mellitus with stage 3 chronic kidney disease, without long-term current use of insulin, unspecified whether stage 3a or 3b CKD (HCC) Moderate episode of recurrent major depressive disorder (HCC) Preoperative examination- Primary Preoperative examination, unspecified 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, 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) Essential hypertension Unspecified essential hypertension Mixed hyperlipidemia Mild intermittent asthma without complication (HCC) Unspecified asthma MARIBEL (obstructive sleep apnea) Obstructive sleep apnea (adult) (pediatric) Irritable bowel syndrome with diarrhea Irritable bowel syndrome GERD without esophagitis Esophageal reflux S/P gastric bypass Bariatric surgery status Stage 3 chronic kidney disease, unspecified whether stage 3a or 3b CKD (HCC) Renal lesion Unspecified disorder of kidney and ureter Hypothyroidism, unspecified type Moderate episode of recurrent major depressive disorder (HCC) Pre-operative examination- Primary Preoperative examination, unspecified Mild intermittent asthma without complication (HCC) Unspecified asthma Essential hypertension Unspecified essential hypertension GERD without esophagitis Esophageal reflux Mixed hyperlipidemia Hypothyroidism, unspecified type Irritable bowel syndrome with diarrhea Irritable bowel syndrome Moderate episode of recurrent major depressive disorder (HCC) MARIBEL (obstructive sleep apnea) Obstructive sleep apnea (adult) (pediatric) S/P gastric bypass Bariatric surgery status Renal lesion Unspecified disorder of kidney and ureter Stage 3 chronic kidney disease, unspecified whether stage 3a or 3b CKD (HCC) 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, unspecified whether longterm insulin use (HCC) Hyponatremia Hyposmolality and/or hyponatremia History of total hip replacement, right History of total knee replacement, left Coronary artery disease involving blackfeet coronary artery of blackfeet heart without angina pectoris Urinary tract infection without hematuria, site unspecified SBO (small bowel obstruction) ([facility])- Primary Unspecified intestinal obstruction Acute cystitis without hematuria Acute cystitis Pancreatic cyst (HCC) Cyst and pseudocyst of pancreas Moderate episode of recurrent major depressive disorder (HCC) Type 2 diabetes mellitus with stage 3 chronic kidney disease, without long-term current use of insulin, unspecified whether stage 3a or 3b CKD (HCC) Impaired strength of lower extremity- Primary Balance disorder Other symptoms involving nervous and musculoskeletal systems Iliotibial band syndrome of right side Other disorder of muscle, ligament, and fascia [facility] Diagnosis Preop examination- Primary Preoperative examination, unspecified Essential hypertension Unspecified essential hypertension MARIBEL (obstructive sleep apnea) Obstructive sleep apnea (adult) (pediatric) Mild intermittent asthma without complication (HCC) Unspecified asthma Hypothyroidism, unspecified type Type 2 diabetes mellitus with stage 3 chronic kidney disease, without long-term current use of insulin, unspecified whether stage 3a or 3b CKD (HCC) Stage 3 chronic kidney disease, unspecified whether stage 3a or 3b CKD (HCC) Preoperative examination- Primary Preoperative examination, unspecified Essential hypertension Unspecified essential hypertension Mixed hyperlipidemia MARIBEL (obstructive sleep apnea) Obstructive sleep apnea (adult) (pediatric) Mild intermittent asthma without complication (HCC) Unspecified asthma GERD without esophagitis Esophageal reflux S/P gastric bypass Bariatric surgery status Stage 3 chronic kidney disease, unspecified whether stage 3a or 3b CKD (HCC) Hypothyroidism, unspecified type Type 2 diabetes mellitus with stage 3 chronic kidney disease, without long-term current use of insulin, unspecified whether stage 3a or 3b CKD (HCC) Moderate episode of recurrent major depressive disorder (HCC) Preoperative examination- Primary Preoperative examination, unspecified 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, 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) Essential hypertension Unspecified essential hypertension Mixed hyperlipidemia Mild intermittent asthma without complication (HCC) Unspecified asthma MARIBEL (obstructive sleep apnea) Obstructive sleep apnea (adult) (pediatric) Irritable bowel syndrome with diarrhea Irritable bowel syndrome GERD without esophagitis Esophageal reflux S/P gastric bypass Bariatric surgery status Stage 3 chronic kidney disease, unspecified whether stage 3a or 3b CKD (HCC) Renal lesion Unspecified disorder of kidney and ureter Hypothyroidism, unspecified type Moderate episode of recurrent major depressive disorder (HCC) Pre-operative examination- Primary Preoperative examination, unspecified Mild intermittent asthma without complication (HCC) Unspecified asthma Essential hypertension Unspecified essential hypertension GERD without esophagitis Esophageal reflux Mixed hyperlipidemia Hypothyroidism, unspecified type Irritable bowel syndrome with diarrhea Irritable bowel syndrome Moderate episode of recurrent major depressive disorder (HCC) MARIBEL (obstructive sleep apnea) Obstructive sleep apnea (adult) (pediatric) S/P gastric bypass Bariatric surgery status Renal lesion Unspecified disorder of kidney and ureter Stage 3 chronic kidney disease, unspecified whether stage 3a or 3b CKD (HCC) 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, unspecified whether longterm insulin use (HCC) Hyponatremia Hyposmolality and/or hyponatremia History of total hip replacement, right History of total knee replacement, left Coronary artery disease involving blackfeet coronary artery of blackfeet heart without angina pectoris Urinary tract infection without hematuria, site unspecified SBO (small bowel obstruction) (HCC)- Primary Unspecified intestinal obstruction Acute cystitis without hematuria Acute cystitis Pancreatic cyst (HCC) Cyst and pseudocyst of pancreas Moderate episode of recurrent major depressive disorder (HCC) Type 2 diabetes mellitus with stage 3 chronic kidney disease, without long-term current use of insulin, unspecified whether stage 3a or 3b CKD (HCC) 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 [facility] Diagnosis Preop examination- Primary Preoperative examination, unspecified Essential hypertension Unspecified essential hypertension MARIBEL (obstructive sleep apnea) Obstructive sleep apnea (adult) (pediatric) Mild intermittent asthma without complication (HCC) Unspecified asthma Hypothyroidism, unspecified type Type 2 diabetes mellitus with stage 3 chronic kidney disease, without long-term current use of insulin, unspecified whether stage 3a or 3b CKD (HCC) Stage 3 chronic kidney disease, unspecified whether stage 3a or 3b CKD (HCC) Preoperative examination- Primary Preoperative examination, unspecified Essential hypertension Unspecified essential hypertension Mixed hyperlipidemia MARIBEL (obstructive sleep apnea) Obstructive sleep apnea (adult) (pediatric) Mild intermittent asthma without complication (HCC) Unspecified asthma GERD without esophagitis Esophageal reflux S/P gastric bypass Bariatric surgery status Stage 3 chronic kidney disease, unspecified whether stage 3a or 3b CKD (HCC) Hypothyroidism, unspecified type Type 2 diabetes mellitus with stage 3 chronic kidney disease, without long-term current use of insulin, unspecified whether stage 3a or 3b CKD (HCC) Moderate episode of recurrent major depressive disorder (HCC) Preoperative examination- Primary Preoperative examination, unspecified 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, unspecified whether longterm insulin use (HCC) Essential hypertension Unspecified essential hypertension Mixed hyperlipidemia Mild intermittent asthma without complication (HCC) Unspecified asthma MARIBEL (obstructive sleep apnea) Obstructive sleep apnea (adult) (pediatric) Irritable bowel syndrome with diarrhea Irritable bowel syndrome GERD without esophagitis Esophageal reflux S/P gastric bypass Bariatric surgery status Stage 3 chronic kidney disease, unspecified whether stage 3a or 3b CKD (HCC) Renal lesion Unspecified disorder of kidney and ureter Hypothyroidism, unspecified type Moderate episode of recurrent major depressive disorder (HCC) Pre-operative examination- Primary Preoperative examination, unspecified Mild intermittent asthma without complication (HCC) Unspecified asthma Essential hypertension Unspecified essential hypertension GERD without esophagitis Esophageal reflux Mixed hyperlipidemia Hypothyroidism, unspecified type Irritable bowel syndrome with diarrhea Irritable bowel syndrome Moderate episode of recurrent major depressive disorder (HCC) MARIBEL (obstructive sleep apnea) Obstructive sleep apnea (adult) (pediatric) S/P gastric bypass Bariatric surgery status Renal lesion Unspecified disorder of kidney and ureter Stage 3 chronic kidney disease, unspecified whether stage 3a or 3b CKD (HCC) 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, 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) Hyponatremia Hyposmolality and/or hyponatremia History of total hip replacement, right History of total knee replacement, left Coronary artery disease involving blackfeet coronary artery of blackfeet heart without angina pectoris Urinary tract infection without hematuria, site unspecified SBO (small bowel obstruction) (HCC)- Primary Unspecified intestinal obstruction Acute cystitis without hematuria Acute cystitis Pancreatic cyst (HCC) Cyst and pseudocyst of pancreas Moderate episode of recurrent major depressive disorder (HCC) Type 2 diabetes mellitus with stage 3 chronic kidney disease, without long-term current use of insulin, unspecified whether stage 3a or 3b CKD (HCC) 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 [facility] Diagnosis Preop examination- Primary Preoperative examination, unspecified Essential hypertension Unspecified essential hypertension MARIBEL (obstructive sleep apnea) Obstructive sleep apnea (adult) (pediatric) Mild intermittent asthma without complication (HCC) Unspecified asthma Hypothyroidism, unspecified type Type 2 diabetes mellitus with stage 3 chronic kidney disease, without long-term current use of insulin, unspecified whether stage 3a or 3b CKD (HCC) Stage 3 chronic kidney disease, unspecified whether stage 3a or 3b CKD (HCC) Preoperative examination- Primary Preoperative examination, unspecified Essential hypertension Unspecified essential hypertension Mixed hyperlipidemia MARIBEL (obstructive sleep apnea) Obstructive sleep apnea (adult) (pediatric) Mild intermittent asthma without complication (HCC) Unspecified asthma GERD without esophagitis Esophageal reflux S/P gastric bypass Bariatric surgery status Stage 3 chronic kidney disease, unspecified whether stage 3a or 3b CKD (HCC) Hypothyroidism, unspecified type Type 2 diabetes mellitus with stage 3 chronic kidney disease, without long-term current use of insulin, unspecified whether stage 3a or 3b CKD (HCC) Moderate episode of recurrent major depressive disorder (HCC) Preoperative examination- Primary Preoperative examination, unspecified 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, 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) Essential hypertension Unspecified essential hypertension Mixed hyperlipidemia Mild intermittent asthma without complication (HCC) Unspecified asthma MARIBEL (obstructive sleep apnea) Obstructive sleep apnea (adult) (pediatric) Irritable bowel syndrome with diarrhea Irritable bowel syndrome GERD without esophagitis Esophageal reflux S/P gastric bypass Bariatric surgery status Stage 3 chronic kidney disease, unspecified whether stage 3a or 3b CKD (HCC) Renal lesion Unspecified disorder of kidney and ureter Hypothyroidism, unspecified type Moderate episode of recurrent major depressive disorder (HCC) Pre-operative examination- Primary Preoperative examination, unspecified Mild intermittent asthma without complication (HCC) Unspecified asthma Essential hypertension Unspecified essential hypertension GERD without esophagitis Esophageal reflux Mixed hyperlipidemia Hypothyroidism, unspecified type Irritable bowel syndrome with diarrhea Irritable bowel syndrome Moderate episode of recurrent major depressive disorder (HCC) MARIBEL (obstructive sleep apnea) Obstructive sleep apnea (adult) (pediatric) S/P gastric bypass Bariatric surgery status Renal lesion Unspecified disorder of kidney and ureter Stage 3 chronic kidney disease, unspecified whether stage 3a or 3b CKD (HCC) 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, 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) Hyponatremia Hyposmolality and/or hyponatremia History of total hip replacement, right History of total knee replacement, left Coronary artery disease involving blackfeet coronary artery of blackfeet heart without angina pectoris Urinary tract infection without hematuria, site unspecified SBO (small bowel obstruction) (HCC)- Primary Unspecified intestinal obstruction Acute cystitis without hematuria Acute cystitis Pancreatic cyst (HCC) Cyst and pseudocyst of pancreas Moderate episode of recurrent major depressive disorder (HCC) Type 2 diabetes mellitus with stage 3 chronic kidney disease, without long-term current use of insulin, unspecified whether stage 3a or 3b CKD (HCC) Memory loss- Primary Essential hypertension Unspecified essential hypertension Mixed hyperlipidemia 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, 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) Insomnia, unspecified type GERD without esophagitis Esophageal reflux Ulnar abutment syndrome of right wrist [facility] Diagnosis Preop examination- Primary Preoperative examination, unspecified Essential hypertension Unspecified essential hypertension MARIBEL (obstructive sleep apnea) Obstructive sleep apnea (adult) (pediatric) Mild intermittent asthma without complication (HCC) Unspecified asthma Hypothyroidism, unspecified type Type 2 diabetes mellitus with stage 3 chronic kidney disease, without long-term current use of insulin, unspecified whether stage 3a or 3b CKD (HCC) Stage 3 chronic kidney disease, unspecified whether stage 3a or 3b CKD (HCC) Preoperative examination- Primary Preoperative examination, unspecified Essential hypertension Unspecified essential hypertension Mixed hyperlipidemia MARIBEL (obstructive sleep apnea) Obstructive sleep apnea (adult) (pediatric) Mild intermittent asthma without complication (HCC) Unspecified asthma GERD without esophagitis Esophageal reflux S/P gastric bypass Bariatric surgery status Stage 3 chronic kidney disease, unspecified whether stage 3a or 3b CKD (HCC) Hypothyroidism, unspecified type Type 2 diabetes mellitus with stage 3 chronic kidney disease, without long-term current use of insulin, unspecified whether stage 3a or 3b CKD (HCC) Moderate episode of recurrent major depressive disorder (HCC) Preoperative examination- Primary Preoperative examination, unspecified 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, unspecified whether longterm insulin use (HCC) Essential hypertension Unspecified essential hypertension Mixed hyperlipidemia Mild intermittent asthma without complication (HCC) Unspecified asthma MARIBEL (obstructive sleep apnea) Obstructive sleep apnea (adult) (pediatric) Irritable bowel syndrome with diarrhea Irritable bowel syndrome GERD without esophagitis Esophageal reflux S/P gastric bypass Bariatric surgery status Stage 3 chronic kidney disease, unspecified whether stage 3a or 3b CKD (HCC) Renal lesion Unspecified disorder of kidney and ureter Hypothyroidism, unspecified type Moderate episode of recurrent major depressive disorder (HCC) Pre-operative examination- Primary Preoperative examination, unspecified Mild intermittent asthma without complication (HCC) Unspecified asthma Essential hypertension Unspecified essential hypertension GERD without esophagitis Esophageal reflux Mixed hyperlipidemia Hypothyroidism, unspecified type Irritable bowel syndrome with diarrhea Irritable bowel syndrome Moderate episode of recurrent major depressive disorder (HCC) MARIBEL (obstructive sleep apnea) Obstructive sleep apnea (adult) (pediatric) S/P gastric bypass Bariatric surgery status Renal lesion Unspecified disorder of kidney and ureter Stage 3 chronic kidney disease, unspecified whether stage 3a or 3b CKD (HCC) 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, 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) Hyponatremia Hyposmolality and/or hyponatremia History of total hip replacement, right History of total knee replacement, left Coronary artery disease involving blackfeet coronary artery of blackfeet heart without angina pectoris Urinary tract infection without hematuria, site unspecified SBO (small bowel obstruction) ([facility])- Primary Unspecified intestinal obstruction Acute cystitis without hematuria Acute cystitis Pancreatic cyst (HCC) Cyst and pseudocyst of pancreas Moderate episode of recurrent major depressive disorder (HCC) Type 2 diabetes mellitus with stage 3 chronic kidney disease, without long-term current use of insulin, unspecified whether stage 3a or 3b CKD (HCC) Elevated liver enzymes- Primary Other nonspecific abnormal serum enzyme levels Controlled type 2 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, without long-term current use of insulin (HCC)- Primary Ulnar abutment syndrome of right wrist [facility] Diagnosis Preop examination- Primary Preoperative examination, unspecified Essential hypertension Unspecified essential hypertension MARIBEL (obstructive sleep apnea) Obstructive sleep apnea (adult) (pediatric) Mild intermittent asthma without complication (HCC) Unspecified asthma Hypothyroidism, unspecified type Type 2 diabetes mellitus with stage 3 chronic kidney disease, without long-term current use of insulin, unspecified whether stage 3a or 3b CKD (HCC) Stage 3 chronic kidney disease, unspecified whether stage 3a or 3b CKD (HCC) Preoperative examination- Primary Preoperative examination, unspecified Essential hypertension Unspecified essential hypertension Mixed hyperlipidemia MARIBEL (obstructive sleep apnea) Obstructive sleep apnea (adult) (pediatric) Mild intermittent asthma without complication (HCC) Unspecified asthma GERD without esophagitis Esophageal reflux S/P gastric bypass Bariatric surgery status Stage 3 chronic kidney disease, unspecified whether stage 3a or 3b CKD (HCC) Hypothyroidism, unspecified type Type 2 diabetes mellitus with stage 3 chronic kidney disease, without long-term current use of insulin, unspecified whether stage 3a or 3b CKD (HCC) Moderate episode of recurrent major depressive disorder (HCC) Preoperative examination- Primary Preoperative examination, unspecified 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, 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) Essential hypertension Unspecified essential hypertension Mixed hyperlipidemia Mild intermittent asthma without complication (HCC) Unspecified asthma MARIBEL (obstructive sleep apnea) Obstructive sleep apnea (adult) (pediatric) Irritable bowel syndrome with diarrhea Irritable bowel syndrome GERD without esophagitis Esophageal reflux S/P gastric bypass Bariatric surgery status Stage 3 chronic kidney disease, unspecified whether stage 3a or 3b CKD (HCC) Renal lesion Unspecified disorder of kidney and ureter Hypothyroidism, unspecified type Moderate episode of recurrent major depressive disorder (HCC) Pre-operative examination- Primary Preoperative examination, unspecified Mild intermittent asthma without complication (HCC) Unspecified asthma Essential hypertension Unspecified essential hypertension GERD without esophagitis Esophageal reflux Mixed hyperlipidemia Hypothyroidism, unspecified type Irritable bowel syndrome with diarrhea Irritable bowel syndrome Moderate episode of recurrent major depressive disorder (HCC) MARIBEL (obstructive sleep apnea) Obstructive sleep apnea (adult) (pediatric) S/P gastric bypass Bariatric surgery status Renal lesion Unspecified disorder of kidney and ureter Stage 3 chronic kidney disease, unspecified whether stage 3a or 3b CKD (HCC) 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, unspecified whether longterm insulin use (HCC) Hyponatremia Hyposmolality and/or hyponatremia History of total hip replacement, right History of total knee replacement, left Coronary artery disease involving blackfeet coronary artery of blackfeet heart without angina pectoris Urinary tract infection without hematuria, site unspecified SBO (small bowel obstruction) (HCC)- Primary Unspecified intestinal obstruction Acute cystitis without hematuria Acute cystitis Pancreatic cyst (HCC) Cyst and pseudocyst of pancreas Moderate episode of recurrent major depressive disorder (HCC) Type 2 diabetes mellitus with stage 3 chronic kidney disease, without long-term current use of insulin, unspecified whether stage 3a or 3b CKD (HCC) Pain of ulnar side of wrist- Primary Controlled type 2 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, without long-term current use of insulin (HCC)- Primary Ulnar abutment syndrome of right wrist [facility] Diagnosis Preop examination- Primary Preoperative examination, unspecified Essential hypertension Unspecified essential hypertension MARIBEL (obstructive sleep apnea) Obstructive sleep apnea (adult) (pediatric) Mild intermittent asthma without complication (HCC) Unspecified asthma Hypothyroidism, unspecified type Type 2 diabetes mellitus with stage 3 chronic kidney disease, without long-term current use of insulin, unspecified whether stage 3a or 3b CKD (HCC) Stage 3 chronic kidney disease, unspecified whether stage 3a or 3b CKD (HCC) Preoperative examination- Primary Preoperative examination, unspecified Essential hypertension Unspecified essential hypertension Mixed hyperlipidemia MARIBEL (obstructive sleep apnea) Obstructive sleep apnea (adult) (pediatric) Mild intermittent asthma without complication (HCC) Unspecified asthma GERD without esophagitis Esophageal reflux S/P gastric bypass Bariatric surgery status Stage 3 chronic kidney disease, unspecified whether stage 3a or 3b CKD (HCC) Hypothyroidism, unspecified type Type 2 diabetes mellitus with stage 3 chronic kidney disease, without long-term current use of insulin, unspecified whether stage 3a or 3b CKD (HCC) Moderate episode of recurrent major depressive disorder (HCC) Preoperative examination- Primary Preoperative examination, unspecified 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, unspecified whether longterm insulin use (HCC) Essential hypertension Unspecified essential hypertension Mixed hyperlipidemia Mild intermittent asthma without complication (HCC) Unspecified asthma MARIBEL (obstructive sleep apnea) Obstructive sleep apnea (adult) (pediatric) Irritable bowel syndrome with diarrhea Irritable bowel syndrome GERD without esophagitis Esophageal reflux S/P gastric bypass Bariatric surgery status Stage 3 chronic kidney disease, unspecified whether stage 3a or 3b CKD (HCC) Renal lesion Unspecified disorder of kidney and ureter Hypothyroidism, unspecified type Moderate episode of recurrent major depressive disorder (HCC) Pre-operative examination- Primary Preoperative examination, unspecified Mild intermittent asthma without complication (HCC) Unspecified asthma Essential hypertension Unspecified essential hypertension GERD without esophagitis Esophageal reflux Mixed hyperlipidemia Hypothyroidism, unspecified type Irritable bowel syndrome with diarrhea Irritable bowel syndrome Moderate episode of recurrent major depressive disorder (HCC) MARIBEL (obstructive sleep apnea) Obstructive sleep apnea (adult) (pediatric) S/P gastric bypass Bariatric surgery status Renal lesion Unspecified disorder of kidney and ureter Stage 3 chronic kidney disease, unspecified whether stage 3a or 3b CKD (HCC) 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, 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 ([facility]) Hyponatremia Hyposmolality and/or hyponatremia History of total hip replacement, right History of total knee replacement, left Coronary artery disease involving blackfeet coronary artery of blackfeet heart without angina pectoris Urinary tract infection without hematuria, site unspecified SBO (small bowel obstruction) ([facility])- Primary Unspecified intestinal obstruction Acute cystitis without hematuria Acute cystitis Pancreatic cyst ([facility]) Cyst and pseudocyst of pancreas Moderate episode of recurrent major depressive disorder (HCC) Type 2 diabetes mellitus with stage 3 chronic kidney disease, without long-term current use of insulin, unspecified whether stage 3a or 3b CKD (HCC) Controlled type 2 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, without long-term current use of insulin (HCC)- Primary Ulnar abutment syndrome of right wrist [facility] Diagnosis Preop examination- Primary Preoperative examination, unspecified Essential hypertension Unspecified essential hypertension MARIBEL (obstructive sleep apnea) Obstructive sleep apnea (adult) (pediatric) Mild intermittent asthma without complication (HCC) Unspecified asthma Hypothyroidism, unspecified type Type 2 diabetes mellitus with stage 3 chronic kidney disease, without long-term current use of insulin, unspecified whether stage 3a or 3b CKD (HCC) Stage 3 chronic kidney disease, unspecified whether stage 3a or 3b CKD (HCC) Preoperative examination- Primary Preoperative examination, unspecified Essential hypertension Unspecified essential hypertension Mixed hyperlipidemia MARIBEL (obstructive sleep apnea) Obstructive sleep apnea (adult) (pediatric) Mild intermittent asthma without complication (HCC) Unspecified asthma GERD without esophagitis Esophageal reflux S/P gastric bypass Bariatric surgery status Stage 3 chronic kidney disease, unspecified whether stage 3a or 3b CKD (HCC) Hypothyroidism, unspecified type Type 2 diabetes mellitus with stage 3 chronic kidney disease, without long-term current use of insulin, unspecified whether stage 3a or 3b CKD (HCC) Moderate episode of recurrent major depressive disorder (HCC) Preoperative examination- Primary Preoperative examination, unspecified 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, unspecified whether longterm insulin use (HCC) Essential hypertension Unspecified essential hypertension Mixed hyperlipidemia Mild intermittent asthma without complication (HCC) Unspecified asthma MARIBEL (obstructive sleep apnea) Obstructive sleep apnea (adult) (pediatric) Irritable bowel syndrome with diarrhea Irritable bowel syndrome GERD without esophagitis Esophageal reflux S/P gastric bypass Bariatric surgery status Stage 3 chronic kidney disease, unspecified whether stage 3a or 3b CKD (HCC) Renal lesion Unspecified disorder of kidney and ureter Hypothyroidism, unspecified type Moderate episode of recurrent major depressive disorder (HCC) Pre-operative examination- Primary Preoperative examination, unspecified Mild intermittent asthma without complication (HCC) Unspecified asthma Essential hypertension Unspecified essential hypertension GERD without esophagitis Esophageal reflux Mixed hyperlipidemia Hypothyroidism, unspecified type Irritable bowel syndrome with diarrhea Irritable bowel syndrome Moderate episode of recurrent major depressive disorder (HCC) MARIBEL (obstructive sleep apnea) Obstructive sleep apnea (adult) (pediatric) S/P gastric bypass Bariatric surgery status Renal lesion Unspecified disorder of kidney and ureter Stage 3 chronic kidney disease, unspecified whether stage 3a or 3b CKD (HCC) 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, unspecified whether longterm insulin use (HCC) Hyponatremia Hyposmolality and/or hyponatremia History of total hip replacement, right History of total knee replacement, left Coronary artery disease involving blackfeet coronary artery of blackfeet heart without angina pectoris Urinary tract infection without hematuria, site unspecified SBO (small bowel obstruction) (HCC)- Primary Unspecified intestinal obstruction Acute cystitis without hematuria Acute cystitis Pancreatic cyst (HCC) Cyst and pseudocyst of pancreas Moderate episode of recurrent major depressive disorder (HCC) Type 2 diabetes mellitus with stage 3 chronic kidney disease, without long-term current use of insulin, unspecified whether stage 3a or 3b CKD (HCC) Attention deficit hyperactivity disorder (ADHD), combined type- Primary Memory loss Major depressive disorder, remission status unspecified, unspecified whether recurrent Ulnar abutment syndrome of right wrist [facility] Diagnosis Preop examination- Primary Preoperative examination, unspecified Essential hypertension Unspecified essential hypertension MARIBEL (obstructive sleep apnea) Obstructive sleep apnea (adult) (pediatric) Mild intermittent asthma without complication (HCC) Unspecified asthma Hypothyroidism, unspecified type Type 2 diabetes mellitus with stage 3 chronic kidney disease, without long-term current use of insulin, unspecified whether stage 3a or 3b CKD (HCC) Stage 3 chronic kidney disease, unspecified whether stage 3a or 3b CKD (HCC) Preoperative examination- Primary Preoperative examination, unspecified Essential hypertension Unspecified essential hypertension Mixed hyperlipidemia MARIBEL (obstructive sleep apnea) Obstructive sleep apnea (adult) (pediatric) Mild intermittent asthma without complication (HCC) Unspecified asthma GERD without esophagitis Esophageal reflux S/P gastric bypass Bariatric surgery status Stage 3 chronic kidney disease, unspecified whether stage 3a or 3b CKD (HCC) Hypothyroidism, unspecified type Type 2 diabetes mellitus with stage 3 chronic kidney disease, without long-term current use of insulin, unspecified whether stage 3a or 3b CKD (HCC) Moderate episode of recurrent major depressive disorder (HCC) Preoperative examination- Primary Preoperative examination, unspecified 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, unspecified whether longterm insulin use (HCC) Essential hypertension Unspecified essential hypertension Mixed hyperlipidemia Mild intermittent asthma without complication (HCC) Unspecified asthma MARIBEL (obstructive sleep apnea) Obstructive sleep apnea (adult) (pediatric) Irritable bowel syndrome with diarrhea Irritable bowel syndrome GERD without esophagitis Esophageal reflux S/P gastric bypass Bariatric surgery status Stage 3 chronic kidney disease, unspecified whether stage 3a or 3b CKD (HCC) Renal lesion Unspecified disorder of kidney and ureter Hypothyroidism, unspecified type Moderate episode of recurrent major depressive disorder (HCC) Pre-operative examination- Primary Preoperative examination, unspecified Mild intermittent asthma without complication (HCC) Unspecified asthma Essential hypertension Unspecified essential hypertension GERD without esophagitis Esophageal reflux Mixed hyperlipidemia Hypothyroidism, unspecified type Irritable bowel syndrome with diarrhea Irritable bowel syndrome Moderate episode of recurrent major depressive disorder (HCC) MARIBEL (obstructive sleep apnea) Obstructive sleep apnea (adult) (pediatric) S/P gastric bypass Bariatric surgery status Renal lesion Unspecified disorder of kidney and ureter Stage 3 chronic kidney disease, unspecified whether stage 3a or 3b CKD (HCC) 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, unspecified whether longterm insulin use (HCC) Hyponatremia Hyposmolality and/or hyponatremia History of total hip replacement, right History of total knee replacement, left Coronary artery disease involving blackfeet coronary artery of blackfeet heart without angina pectoris Urinary tract infection without hematuria, site unspecified SBO (small bowel obstruction) (HCC)- Primary Unspecified intestinal obstruction Acute cystitis without hematuria Acute cystitis Pancreatic cyst (HCC) Cyst and pseudocyst of pancreas Moderate episode of recurrent major depressive disorder (HCC) Type 2 diabetes mellitus with stage 3 chronic kidney disease, without long-term current use of insulin, unspecified whether stage 3a or 3b CKD (HCC) Pancreatic cyst (HCC) Cyst and pseudocyst of pancreas Ulnar abutment syndrome of right wrist [facility] Diagnosis Preop examination- Primary Preoperative examination, unspecified Essential hypertension Unspecified essential hypertension MARIBEL (obstructive sleep apnea) Obstructive sleep apnea (adult) (pediatric) Mild intermittent asthma without complication (HCC) Unspecified asthma Hypothyroidism, unspecified type Type 2 diabetes mellitus with stage 3 chronic kidney disease, without long-term current use of insulin, unspecified whether stage 3a or 3b CKD (HCC) Stage 3 chronic kidney disease, unspecified whether stage 3a or 3b CKD (HCC) Preoperative examination- Primary Preoperative examination, unspecified Essential hypertension Unspecified essential hypertension Mixed hyperlipidemia MARIBEL (obstructive sleep apnea) Obstructive sleep apnea (adult) (pediatric) Mild intermittent asthma without complication (HCC) Unspecified asthma GERD without esophagitis Esophageal reflux S/P gastric bypass Bariatric surgery status Stage 3 chronic kidney disease, unspecified whether stage 3a or 3b CKD (HCC) Hypothyroidism, unspecified type Type 2 diabetes mellitus with stage 3 chronic kidney disease, without long-term current use of insulin, unspecified whether stage 3a or 3b CKD (HCC) Moderate episode of recurrent major depressive disorder (HCC) Preoperative examination- Primary Preoperative examination, unspecified 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, 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) Essential hypertension Unspecified essential hypertension Mixed hyperlipidemia Mild intermittent asthma without complication (HCC) Unspecified asthma MARIBEL (obstructive sleep apnea) Obstructive sleep apnea (adult) (pediatric) Irritable bowel syndrome with diarrhea Irritable bowel syndrome GERD without esophagitis Esophageal reflux S/P gastric bypass Bariatric surgery status Stage 3 chronic kidney disease, unspecified whether stage 3a or 3b CKD (HCC) Renal lesion Unspecified disorder of kidney and ureter Hypothyroidism, unspecified type Moderate episode of recurrent major depressive disorder (HCC) Pre-operative examination- Primary Preoperative examination, unspecified Mild intermittent asthma without complication (HCC) Unspecified asthma Essential hypertension Unspecified essential hypertension GERD without esophagitis Esophageal reflux Mixed hyperlipidemia Hypothyroidism, unspecified type Irritable bowel syndrome with diarrhea Irritable bowel syndrome Moderate episode of recurrent major depressive disorder (HCC) MARIBEL (obstructive sleep apnea) Obstructive sleep apnea (adult) (pediatric) S/P gastric bypass Bariatric surgery status Renal lesion Unspecified disorder of kidney and ureter Stage 3 chronic kidney disease, unspecified whether stage 3a or 3b CKD (HCC) 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, unspecified whether longterm insulin use (HCC) Hyponatremia Hyposmolality and/or hyponatremia History of total hip replacement, right History of total knee replacement, left Coronary artery disease involving blackfeet coronary artery of blackfeet heart without angina pectoris Urinary tract infection without hematuria, site unspecified SBO (small bowel obstruction) (HCC)- Primary Unspecified intestinal obstruction Acute cystitis without hematuria Acute cystitis Pancreatic cyst (HCC) Cyst and pseudocyst of pancreas Moderate episode of recurrent major depressive disorder (HCC) Type 2 diabetes mellitus with stage 3 chronic kidney disease, without long-term current use of insulin, unspecified whether stage 3a or 3b CKD (HCC) Memory loss Ulnar abutment syndrome of right wrist [facility]* Diagnosis Preop examination- Primary Preoperative examination, unspecified Essential hypertension Unspecified essential hypertension MARIBEL (obstructive sleep apnea) Obstructive sleep apnea (adult) (pediatric) Mild intermittent asthma without complication (HCC) Unspecified asthma Hypothyroidism, unspecified type Type 2 diabetes mellitus with stage 3 chronic kidney disease, without long-term current use of insulin, unspecified whether stage 3a or 3b CKD (HCC) Stage 3 chronic kidney disease, unspecified whether stage 3a or 3b CKD (HCC) Preoperative examination- Primary Preoperative examination, unspecified Essential hypertension Unspecified essential hypertension Mixed hyperlipidemia MARIBEL (obstructive sleep apnea) Obstructive sleep apnea (adult) (pediatric) Mild intermittent asthma without complication (HCC) Unspecified asthma GERD without esophagitis Esophageal reflux S/P gastric bypass Bariatric surgery status Stage 3 chronic kidney disease, unspecified whether stage 3a or 3b CKD (HCC) Hypothyroidism, unspecified type Type 2 diabetes mellitus with stage 3 chronic kidney disease, without long-term current use of insulin, unspecified whether stage 3a or 3b CKD (HCC) Moderate episode of recurrent major depressive disorder (HCC) Preoperative examination- Primary Preoperative examination, unspecified 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, 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 ([facility]) Essential hypertension Unspecified essential hypertension Mixed hyperlipidemia Mild intermittent asthma without complication ([facility]) Unspecified asthma MARIBEL (obstructive sleep apnea) Obstructive sleep apnea (adult) (pediatric) Irritable bowel syndrome with diarrhea Irritable bowel syndrome GERD without esophagitis Esophageal reflux S/P gastric bypass Bariatric surgery status Stage 3 chronic kidney disease, unspecified whether stage 3a or 3b CKD ([facility]) Renal lesion Unspecified disorder of kidney and ureter Hypothyroidism, unspecified type Moderate episode of recurrent major depressive disorder (HCC) Pre-operative examination- Primary Preoperative examination, unspecified Mild intermittent asthma without complication (HCC) Unspecified asthma Essential hypertension Unspecified essential hypertension GERD without esophagitis Esophageal reflux Mixed hyperlipidemia Hypothyroidism, unspecified type Irritable bowel syndrome with diarrhea Irritable bowel syndrome Moderate episode of recurrent major depressive disorder (HCC) MARIBEL (obstructive sleep apnea) Obstructive sleep apnea (adult) (pediatric) S/P gastric bypass Bariatric surgery status Renal lesion Unspecified disorder of kidney and ureter Stage 3 chronic kidney disease, unspecified whether stage 3a or 3b CKD ([facility]) 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, 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 ([facility]) Hyponatremia Hyposmolality and/or hyponatremia History of total hip replacement, right History of total knee replacement, left Coronary artery disease involving blackfeet coronary artery of blackfeet heart without angina pectoris Urinary tract infection without hematuria, site unspecified SBO (small bowel obstruction) ([facility])- Primary Unspecified intestinal obstruction Acute cystitis without hematuria Acute cystitis Pancreatic cyst (HCC) Cyst and pseudocyst of pancreas Moderate episode of recurrent major depressive disorder (HCC) Type 2 diabetes mellitus with stage 3 chronic kidney disease, without long-term current use of insulin, unspecified whether stage 3a or 3b CKD (HCC) Mixed hyperlipidemia- Primary Essential hypertension Unspecified essential hypertension Coronary artery disease involving blackfeet coronary artery of blackfeet heart without angina pectoris MARIBEL (obstructive sleep apnea) Obstructive sleep apnea (adult) (pediatric) Mild intermittent asthma without complication (HCC) Unspecified asthma Irritable bowel syndrome with diarrhea Irritable bowel syndrome GERD without esophagitis Esophageal reflux Renal lesion Unspecified disorder of kidney and ureter Stage 3 chronic kidney disease, unspecified whether stage 3a or 3b CKD (HCC) 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, unspecified whether longterm insulin use (HCC) Pancreatic cyst (HCC) Cyst and pseudocyst of pancreas Hypothyroidism, unspecified type Moderate episode of recurrent major depressive disorder (HCC) H/O gastric bypass Bariatric surgery status Headaches Falls Unspecified fall Post-operative nausea and vomiting Nausea with vomiting Loss of control of rectal sphincter Full incontinence of feces Attention-deficit hyperactivity disorder, predominantly inattentive type Attention deficit disorder without mention of hyperactivity Ulnar abutment syndrome of right wrist [facility] Diagnosis Preop examination- Primary Preoperative examination, unspecified Essential hypertension Unspecified essential hypertension MARIBEL (obstructive sleep apnea) Obstructive sleep apnea (adult) (pediatric) Mild intermittent asthma without complication (HCC) Unspecified asthma Hypothyroidism, unspecified type Type 2 diabetes mellitus with stage 3 chronic kidney disease, without long-term current use of insulin, unspecified whether stage 3a or 3b CKD (HCC) Stage 3 chronic kidney disease, unspecified whether stage 3a or 3b CKD (HCC) Preoperative examination- Primary Preoperative examination, unspecified Essential hypertension Unspecified essential hypertension Mixed hyperlipidemia MARIBEL (obstructive sleep apnea) Obstructive sleep apnea (adult) (pediatric) Mild intermittent asthma without complication (HCC) Unspecified asthma GERD without esophagitis Esophageal reflux S/P gastric bypass Bariatric surgery status Stage 3 chronic kidney disease, unspecified whether stage 3a or 3b CKD (HCC) Hypothyroidism, unspecified type Type 2 diabetes mellitus with stage 3 chronic kidney disease, without long-term current use of insulin, unspecified whether stage 3a or 3b CKD (HCC) Moderate episode of recurrent major depressive disorder (HCC) Preoperative examination- Primary Preoperative examination, unspecified 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, 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) Essential hypertension Unspecified essential hypertension Mixed hyperlipidemia Mild intermittent asthma without complication (HCC) Unspecified asthma MARIBEL (obstructive sleep apnea) Obstructive sleep apnea (adult) (pediatric) Irritable bowel syndrome with diarrhea Irritable bowel syndrome GERD without esophagitis Esophageal reflux S/P gastric bypass Bariatric surgery status Stage 3 chronic kidney disease, unspecified whether stage 3a or 3b CKD (HCC) Renal lesion Unspecified disorder of kidney and ureter Hypothyroidism, unspecified type Moderate episode of recurrent major depressive disorder (HCC) Pre-operative examination- Primary Preoperative examination, unspecified Mild intermittent asthma without complication (HCC) Unspecified asthma Essential hypertension Unspecified essential hypertension GERD without esophagitis Esophageal reflux Mixed hyperlipidemia Hypothyroidism, unspecified type Irritable bowel syndrome with diarrhea Irritable bowel syndrome Moderate episode of recurrent major depressive disorder (HCC) MARIBEL (obstructive sleep apnea) Obstructive sleep apnea (adult) (pediatric) S/P gastric bypass Bariatric surgery status Renal lesion Unspecified disorder of kidney and ureter Stage 3 chronic kidney disease, unspecified whether stage 3a or 3b CKD (HCC) 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, unspecified whether longterm insulin use ([facility]) Hyponatremia Hyposmolality and/or hyponatremia History of total hip replacement, right History of total knee replacement, left Coronary artery disease involving blackfeet coronary artery of blackfeet heart without angina pectoris Urinary tract infection without hematuria, site unspecified SBO (small bowel obstruction) ([facility])- Primary Unspecified intestinal obstruction Acute cystitis without hematuria Acute cystitis Pancreatic cyst (HCC) Cyst and pseudocyst of pancreas Moderate episode of recurrent major depressive disorder (HCC) Type 2 diabetes mellitus with stage 3 chronic kidney disease, without long-term current use of insulin, unspecified whether stage 3a or 3b CKD (HCC) Weight loss- Primary Loss of weight Nausea Nausea alone Other complicated headache syndrome Attention deficit Attention or concentration deficit Decreased appetite Anorexia Other insomnia Ulnar abutment syndrome of right wrist documented in this encounter [facility] course Narrative No data available for this section [facility] Discharge instructions No data available for this section [facility] Patient's home Plan of care note* Visit Details Visit Type -PT SOC Discipline -Physical Therapy Problems Problem Description Start Date Status Goals Interve ntions Medication Education Disciplines: Skilled Services 11/21/2021 Active 1 goal linked to scheduled/document ed intervention 1 goal intervention scheduled/documen angelica in this visit Mental Health Disciplines: Skilled Services 11/21/2021 Active 1 goal linked to scheduled/document ed intervention 2 goal interventions scheduled/documen angelica in this visit Sepsis Disciplines: Skilled Services 11/21/2021 Active 1 goal linked to scheduled/document ed intervention 1 goal intervention scheduled/documen angelica in this visit Declined Referral Disciplines: Skilled Services 11/21/2021 Active 1 goal linked to scheduled/document ed intervention 1 goal intervention scheduled/documen angelica in this visit Physician Specific Parameters Disciplines: Skilled Services 11/21/2021 Active 1 goal linked to scheduled/document ed intervention 1 goal intervention scheduled/documen angelica in this visit Risk for Falls Disciplines: Skilled Services 11/21/2021 Active 1 goal linked to scheduled/document ed intervention 1 goal intervention scheduled/documen angelica in this visit Pain Disciplines: Skilled Services 11/21/2021 Active 1 goal linked to scheduled/document ed intervention 1 goal intervention scheduled/documen angelica in this visit Diabetic Foot Care Disciplines: Skilled Services 11/21/2021 Active 1 goal linked to scheduled/document ed intervention 1 goal intervention scheduled/documen angelica in this visit High Risk Medications Disciplines: Skilled Services 11/21/2021 Active 1 goal linked to scheduled/document ed intervention 1 goal intervention scheduled/documen angelica in this visit Discharge Disciplines: Skilled Services 11/21/2021 Active 1 goal linked to scheduled/document ed intervention 1 goal intervention scheduled/documen angelica in this visit Advance Directives Disciplines: Skilled Services 11/21/2021 Active 1 goal linked to scheduled/document ed intervention 1 goal intervention scheduled/documen angelica in this visit PT Impaired muscle performance and/or ROM Disciplines: PT 11/21/2021 Active 1 goal linked to scheduled/document ed intervention 1 goal intervention scheduled/documen angleica in this visit PT Impaired mobility Disciplines: PT 11/21/2021 Active 2 goals linked to scheduled/document ed interventions 2 goal interventions scheduled/documen angelica in this visit PT Impaired gait Disciplines: PT 11/21/2021 Active 2 goals linked to scheduled/document ed interventions 2 goal interventions scheduled/documen angelica in this visit PT Impaired balance Disciplines: PT 11/21/2021 Active 1 goal linked to scheduled/document ed intervention 1 goal intervention scheduled/documen angelica in this visit PT Orthopedic Condition Disciplines: PT 11/21/2021 Active 1 goal linked to scheduled/document ed intervention 3 goal interventions scheduled/documen angelica in this visit PT Learning Assessment Disciplines: PT 11/21/2021 Active 1 goal linked to scheduled/document ed intervention 1 goal intervention scheduled/documen angelica in this visit PT Cardiovascular Disease Disciplines: PT 11/21/2021 Active 1 goal linked to scheduled/document ed intervention 1 goal intervention scheduled/documen angelica in this visit PT Pulmonary Disease Disciplines: PT 11/21/2021 Active 1 goal linked to scheduled/document ed intervention 1 goal intervention scheduled/documen angelica in this visit Goals Goal Associated Problem Outcome Goal Met? Visit Notes Patient/caregiver will demonstrate ability to obtain, store, identify and administer ordered medications, keep accurate medication list in home, and adhere to medication schedule Description: Patient/caregiver will demonstrate ability to obtain, store, identify and administer ordered medications, keep accurate medication list in home, and adhere to medication schedule by 12/07/21. Medication Education No Improved management of mental health condition(s) Description: Patient/caregiver will teach back mental health symptom identification and management techniques by 12/07/21. Mental Health No Patient/caregiver will be able to identify and report symptoms of sepsis Description: Patient/caregiver will be able to identify signs/symptoms of sepsis infection and will verbalize actions to take if suspected by 12/07/21. Sepsis No Patient has declined referred services Declined Referral Completed Yes 11/21/21 - pt declines OT Patient to maintain parameters within physician-specified ranges throughout certification period Physician Specific Parameters No Manage Risk for falls Description: Patient/caregiver will verbalize knowledge of individualized fall prevention strategies by 12/07/21. Risk for Falls No Manage Pain Description: Patient/caregiver will verbalize knowledge and understanding of appropriate techniques to control pain, including pain medication and non-pharmacological techniques. Patient will verbalize or demonstrate an acceptable level of pain as evidenced by a pain score of 2/10 or less and improvement in ability to perform activities of daily living to be achieved by 12/07/21. Pain No Manage diabetic foot care Description: Patient/caregiver will demonstrate basic understanding of and compliance with diabetic self-care management as evidenced by verbalizing purpose of daily foot care and assessment by 12/07/21. Diabetic Foot Care No Patient/caregiver will teach back high risk medication side effect and precaution education High Risk Medications No Manage discharge planning Description: Patient/caregiver will verbalize understanding of ongoing discharge plan provided related to disease management, arrangements for outpatient and/or community services, obtaining medications, supplies, and DME, as needed throughout certification period. Discharge No Patient/caregiver will make healthcare providers aware of and any changes to Advance Directives throughout certification period Advance Directives Completed Yes 11/21/21- goal resolved. Improved Muscle Performance and/or ROM Description: LTG: Patient and/or caregiver will verbalize/demonstrate independence with home exercise program, to improve functional mobility, to be achieved by 12/07/21. PT Impaired muscle performance and/or ROM No Improved Transfers Description: STG: Patient will demonstrate safe transfers to/from bed, chair, toilet and couch independently, to be achieved by 11/30/21. LTG: Patient will demonstrate safe transfers to/from shower/tub and car independently, to be achieved by 12/07/21. PT Impaired mobility No Improved Bed Mobility Description: STG: Patient will demonstrate improved bed mobility and supine <> sit independently to be achieved by 11/30/21. PT Impaired mobility No Improved Stair Climbing Description: STG:: Patient will demonstrate improved stair negotiation as evidenced by ascend/descend threshold/curbs steps without railing independently, to be achieved by 11/30/10. LTG: Patient will demonstrate improved stair negotiation as evidenced by ascend/descend 12 basement steps with railing independently, to safely access all areas of the home, access community and exit home, to be achieved by 12/07/21. PT Impaired gait No Improved Gait Description: STG: Patient will demonstrate improved gait ability as evidenced by ambulation 100 feet with front wheeled walker with supervision, in order to perform household mobility, to be achieved by 11/30/21. LTG: Patient will demonstrate improved gait ability as evidenced by ambulation 150+ feet with single point cane independently, to return to safe household and community ambulation, in order to perform limited community mobility, to be achieved by 12/07/21. PT Impaired gait No Improved Balance Description: LTG: Patient will demonstrate improved standing balance to meet functional goals as evidenced by TUG score of <13 to be achieved by 12/07/21. PT Impaired balance No Manage Orthopedic Condition Description: Improve patient and/or caregiver understanding of post surgical and/or non-surgical orthopedic intervention management as evidenced by patient and/or caregiver able to verbalize, demonstrate, and teach back instruction, to be achieved by 12/07/21. PT Orthopedic Condition No Demonstrate understanding of education Description: Patient and/or caregiver will understand educational instruction to be achieved by 12/07/21. PT Learning Assessment No Manage Secondary Cardiovascular disease Description: Improve patient and/or caregiver understanding of secondary cardiovascular disease management as evidenced by patient and/or caregiver able to verbalize, demonstrate, and teach back instruction, to be achieved by 12/07/21. PT Cardiovascular Disease No Manage Secondary Pulmonary Disease Description: Improve patient and/or caregiver understanding of secondary pulmonary disease management as evidenced by patient and/or caregiver able to verbalize, demonstrate, and teach back instruction, to be achieved by 12/07/21. PT Pulmonary Disease No Interventions Intervention Associated Problem/Goal Status Variance Visit Notes Medication Education Description: Evaluate/instruct patient/caregiver on obtaining, storing, identifying and administering ordered medications as well as keeping accurate medication list in the home and adhereing to medication schedule Problem:Medication Education Goal:Patient/caregi aleyda will demonstrate ability to obtain, store, identify and administer ordered medications, keep accurate medication list in home, and adhere to medication schedule Completed Patient instructed on importance of keeping accurate medication list in home, adhering to medication schedule, proper storage of medications, med maintenance planner set up and use of sharps container for injectable medications - pt notes they do fit properly - so recommended milk jug/carton with lid. Patient/caregiver will teach back mental health symptom identification and management strategies Problem:Mental Health Goal:Improved management of mental health condition(s) Completed Patient instructed on the following: signs and symptoms of increased anxiety and when to report to physician, importance of medication adherence, coping skills and techniques, use of relaxation techniques, use of diversional activities and seeking support from family/friends. Instruct on depression symptoms and management Description: PHQ-2 score: below 3; Takes medication d/t hx of depression Problem:Mental Health Goal:Improved management of mental health condition(s) Completed Patient instructed on the following: signs of depression and when to report symptoms to physician, importance of medication adherence, record symptoms to assist with ongoing monitoring, develop awareness of stressors, verbalize feelings, the importance of activity, goal planning and schedules , the benefits of adequate nutrition and hydration and seeking support from family/friends. Risk of Sepsis Description: Patient is at risk for sepsis. Monitor closely for s/s of sepsis. Problem:Sepsis Goal:Patient/caregi laeyda will be able to identify and report symptoms of sepsis Completed Patient/caregiver declined OT services Problem:Declined Referral Goal:Patient has declined referred services Completed SPO2 Description: Notify Dr. Lindsey if pulse ox is <92% at rest. Problem:Physician Specific Parameters Goal:Patient to maintain parameters within physician-specified ranges throughout certification period Completed Instruct on individual fall risk factors and strategies to prevent falls and injuries caused by falls. Problem:Risk for Falls Goal:Manage Risk for falls Completed PT: Patient instructed on Eliminating Environmental Hazards: Keep pathways clear, Keep pets out of pathways, Remove unsafe rugs, Move furniture from pathways, Keep rooms and walkways well lit, Install hand rails/grab bars, Wear supportive shoes or non-skid socks and Keep frequently used items within reach Managing Impaired Functional Mobility: Modification of current activities: pacing, use of FWW or all tasks, Use assistive device(s): front wheeled walker and Caregiver to provide assist with: Steps and ADL/IADLs Managing Pain Instruct on pain and instruct on strategies to control pain Problem:Pain Goal:Manage Pain Completed patient instructed on techniques to control pain including Pharmacological measures and Non-Pharmacological measures; rest, positioning/elevatio n, mobility/therapeutic exercise, distraction, breathing/relaxation , use of DME/assistive devices and use of thermal modalities, apply ice to affected area for the following prescribed frequency: cold pack to be applied indirectly over area x 15-20 minutes; off for at least 20 minutes to be repeated as needed for pain. Monitor lower extremities for skin lesions and educate on proper foot care Problem:Diabetic Foot Care Goal:Manage diabetic foot care Completed patient instructed on diabetic foot care including daily skin inspection, wearing proper footwear/avoiding going barefoot, wash/dry feet thoroughly, applying moisturizer, avoiding between toes, toenail care, advise follow up with PCP/fiscal manager, assist patient in finding fiscal manager and available further educational resources. Opioids- Instruct on high risk medication Problem:High Risk Medications Goal:Patient/jammie aleyda will teach back high risk medication side effect and precaution education Completed patient instructed on the following: Possible side effects of opioid medication including sedation, decreased rate of breathing, and constipation. Instructed on reporting over sedation to prescribing physician, practice deep breathing techniques every hour while awake, and prevention of constipation by increasing water and fiber intake, increase activity as tolerated, and use stool softener as prescribed. Only take opioids as prescribed, do not share your medications, and take proper precautions in storing and properly disposing of opioids once no longer needed. Follow providers guidelines for driving and weaning from prescribed opioid. Instruct on ongoing discharge plan Problem:Discharge Goal:Manage discharge planning Completed Ongoing Discharge plan: Discharge plan discussed with patient including frequency and duration for home PT and plan for transition to: outpatient therapy. Determine patient's Advance Directive Status Description: Patient does have advance directives. Patient's Advance Directives determined to be available in Home Healthcare DPOA and Living Will. Problem:Advance Directives Goal:Patient/caregi aleyda will make healthcare providers aware of and any changes to Advance Directives throughout certification period Completed Discussed Advance Directives with Patient and/or Caregiver. Referred patient to Home Care handbook for further information on Healthcare DPOA & Living Will. Physical Therapy Therapeutic Exercises Problem:PT Impaired muscle performance and/or ROM Goal:Improved Muscle Performance and/or ROM Completed Developed, implemented, and instructed patient on strengthening exercises: post hip fx/pinning anti-embolic and mobility exercises: supine ankle pumps, glut sets, quad sets, SAQ and heel slides and hip abduction x 10 reps as tolerated and as able to perform correctly. Cues to perform with control and to maintain neutral LE alignment avoiding IR. Recommend pt ambulate every 1-2 hours when awake with FWW as tolerated and perform HEP 3x/day. Physical Therapy Transfer Training Problem:PT Impaired mobility Goal:Improved Transfers Completed Transfer training and instruction to patient on safe transfers to and from bed, chair, toilet and couch with contact guard assist and verbal, tactile and visual cues for proper hand/foot placement; maintaining midline postural alignment, use of UE's to assist with eccentric control and maintaining symmetrical weight bearing as tolerated Physical Therapy Bed Mobility Training Problem:PT Impaired mobility Goal:Improved Bed Mobility Completed Bed mobility training and instruction on safe positioning to patient on supine<>sit with min assistance and verbal and tactile cues for task segmentation including scooting as far as able onto bed before initiating sit to supine; maintaining neutral LE alignment, and assistance bringing LE into/out of bed, proper foot placement on step-stool and placement of walker for stability Physical Therapy Stair Training Problem:PT Impaired gait Goal:Improved Stair Climbing Deferred with variance Patient requested to defer to next visit Physical Therapy Gait Training Problem:PT Impaired gait Goal:Improved Gait Completed Gait training and instruction to patient on safe ambulation with front wheeled walker for 50 feet with contact guard assist, with verbal, tactile and visual cues for corrections of gait deviations including antalgic gait RLE; decreased weight acceptance and stance time RLE; discontinuous steps. Cues for head neutral posture with cues for heel-toe gait with step-through gait pattern. Physical Therapy Balance Training Problem:PT Impaired balance Goal:Improved Balance Completed Developed, implemented, and instructed patient on standing balance exercises including : Timed Up and Go Test (TUG) Score/Time: 37.2 Walking Device Required: FWW Modifications: arms of chair Instructions to the patient: When I say 'go' I want you to stand up and walk to the line, turn and then walk back to the chair and sit down again. Walk at your normal pace. Older adults (age 65+) who took 13.5 seconds or longer to perform the TUG were classified as fallers with an overall correct prediction rate of 90% Scoring Ranges (HHQI) <10 Seconds = High Mobility 10-19 Seconds = Typical Mobility 20-29 Seconds = Slower Mobility 30+ Seconds = Diminished Mobility . Instruct on orthopedic precautions and weight bearing restrictions Description: Pt s/p R hip closed reduction, pinning - no precautions Weight bearing restrictions include: WBAT of involved extremity. Problem:PT Orthopedic Condition Goal:Manage Orthopedic Condition Completed patient instructed on orthopedic precautions and weight bearing restrictions. Instruct on management of edema Problem:PT Orthopedic Condition Goal:Manage Orthopedic Condition Completed Instruct patient on management of edema including elevation of RLE above the level of the heart, ice and benefits of activity. Instruct on self-management of post surgical and/or non-surgical orthopedic intervention Problem:PT Orthopedic Condition Goal:Manage Orthopedic Condition Completed patient instructed on managagement of orthopedic condition, measures to avoid skin breakdown, staying well hydrated, eating foods with high protein, signs and symptoms of infection, signs and symptoms of DVT/PE, follow provider guidance for showering , instructed on when to call provider and instructed on when to call 911. Instruct and educate on knowledge deficits Problem:PT Learning Assessment Goal:Demonstrate understanding of education Completed patient verbalize and/or demonstrate understanding of physical therapy education including cardiac disease management, pulmonary disease management, diabetic care management, orthopedic condition management, weight bearing precautions, surgical precautions, pain management, fall prevention strategies, home safety, integumentary and incision/wound care management, functional activity and home exercise program. Education methods include: verbal cues, tactile cues, written instructions, visual cues and teach back. Further education required to improve knowledge and compliance with cardiac disease management, pulmonary disease management, diabetic care management, orthopedic condition management, weight bearing precautions, surgical precautions, pain management, fall prevention strategies, home safety, integumentary and incision/wound care management and functional activity. Instruct on signs, symptoms, and management of secondary cardiovascular disease Problem:PT Cardiovascular Disease Goal:Manage Secondary Cardiovascular disease Completed Instructed patient on diagnosis of HTN, energy conservation and exercise and activity guidelines. Instruct on signs, symptoms, and management of secondary pulmonary disease Problem:PT Pulmonary Disease Goal:Manage Secondary Pulmonary Disease Completed patient instructed on diagnosis of asthma, signs and symptoms of pulmonary exacerbation and energy conservation. documented in this encounter [facility]'s home Plan of care note* Visit Details Visit Type -PT ROUTINE Discipline -Physical Therapy Problems Problem Description Start Date Status Goals Interve ntions Medication Education Disciplines: Skilled Services 11/21/2021 Active 1 goal linked to scheduled/document ed intervention 1 goal intervention scheduled/document ed in this visit Sepsis Disciplines: Skilled Services 11/21/2021 Active 1 goal linked to scheduled/document ed intervention 1 goal intervention scheduled/document ed in this visit Physician Specific Parameters Disciplines: Skilled Services 11/21/2021 Active 1 goal linked to scheduled/document ed intervention 1 goal intervention scheduled/document ed in this visit Risk for Falls Disciplines: Skilled Services 11/21/2021 Active 1 goal linked to scheduled/document ed intervention 1 goal intervention scheduled/document ed in this visit Pain Disciplines: Skilled Services 11/21/2021 Active 1 goal linked to scheduled/document ed intervention 1 goal intervention scheduled/document ed in this visit Diabetic Foot Care Disciplines: Skilled Services 11/21/2021 Active 1 goal linked to scheduled/document ed intervention 1 goal intervention scheduled/document ed in this visit High Risk Medications Disciplines: Skilled Services 11/21/2021 Active 1 goal linked to scheduled/document ed intervention 1 goal intervention scheduled/document ed in this visit PT Impaired muscle performance and/or ROM Disciplines: PT 11/21/2021 Active 1 goal linked to scheduled/document ed intervention 1 goal intervention scheduled/document ed in this visit PT Impaired mobility Disciplines: PT 11/21/2021 Active 2 goals linked to scheduled/document ed interventions 2 goal interventions scheduled/document ed in this visit PT Impaired gait Disciplines: PT 11/21/2021 Active 2 goals linked to scheduled/document ed interventions 2 goal interventions scheduled/document ed in this visit PT Orthopedic Condition Disciplines: PT 11/21/2021 Active 1 goal linked to scheduled/document ed intervention 3 goal interventions scheduled/document ed in this visit PT Learning Assessment Disciplines: PT 11/21/2021 Active 1 goal linked to scheduled/document ed intervention 1 goal intervention scheduled/document ed in this visit Goals Goal Associated Problem Outcome Goal Met? Visit Notes Patient/caregiver will demonstrate ability to obtain, store, identify and administer ordered medications, keep accurate medication list in home, and adhere to medication schedule Description: Patient/caregiver will demonstrate ability to obtain, store, identify and administer ordered medications, keep accurate medication list in home, and adhere to medication schedule by 12/07/21. Medication Education No Patient/caregiver will be able to identify and report symptoms of sepsis Description: Patient/caregiver will be able to identify signs/symptoms of sepsis infection and will verbalize actions to take if suspected by 12/07/21. Sepsis No Patient to maintain parameters within physician-specified ranges throughout certification period Physician Specific Parameters No Manage Risk for falls Description: Patient/caregiver will verbalize knowledge of individualized fall prevention strategies by 12/07/21. Risk for Falls No Manage Pain Description: Patient/caregiver will verbalize knowledge and understanding of appropriate techniques to control pain, including pain medication and non-pharmacological techniques. Patient will verbalize or demonstrate an acceptable level of pain as evidenced by a pain score of 2/10 or less and improvement in ability to perform activities of daily living to be achieved by 12/07/21. Pain No Manage diabetic foot care Description: Patient/caregiver will demonstrate basic understanding of and compliance with diabetic self-care management as evidenced by verbalizing purpose of daily foot care and assessment by 12/07/21. Diabetic Foot Care No Patient/caregiver will teach back high risk medication side effect and precaution education High Risk Medications No Improved Muscle Performance and/or ROM Description: LTG: Patient and/or caregiver will verbalize/demonstrate independence with home exercise program, to improve functional mobility, to be achieved by 12/07/21. PT Impaired muscle performance and/or ROM No Improved Transfers Description: STG: Patient will demonstrate safe transfers to/from bed, chair, toilet and couch independently, to be achieved by 11/30/21. LTG: Patient will demonstrate safe transfers to/from shower/tub and car independently, to be achieved by 12/07/21. PT Impaired mobility No Improved Bed Mobility Description: STG: Patient will demonstrate improved bed mobility and supine <> sit independently to be achieved by 11/30/21. PT Impaired mobility No Improved Stair Climbing Description: STG:: Patient will demonstrate improved stair negotiation as evidenced by ascend/descend threshold/curbs steps without railing independently, to be achieved by 11/30/10. LTG: Patient will demonstrate improved stair negotiation as evidenced by ascend/descend 12 basement steps with railing independently, to safely access all areas of the home, access community and exit home, to be achieved by 12/07/21. PT Impaired gait No Improved Gait Description: STG: Patient will demonstrate improved gait ability as evidenced by ambulation 100 feet with front wheeled walker with supervision, in order to perform household mobility, to be achieved by 11/30/21. LTG: Patient will demonstrate improved gait ability as evidenced by ambulation 150+ feet with single point cane independently, to return to safe household and community ambulation, in order to perform limited community mobility, to be achieved by 12/07/21. PT Impaired gait No Manage Orthopedic Condition Description: Improve patient and/or caregiver understanding of post surgical and/or non-surgical orthopedic intervention management as evidenced by patient and/or caregiver able to verbalize, demonstrate, and teach back instruction, to be achieved by 12/07/21. PT Orthopedic Condition No Demonstrate understanding of education Description: Patient and/or caregiver will understand educational instruction to be achieved by 12/07/21. PT Learning Assessment No Interventions Intervention Associated Problem/Goal Status Variance Visit Notes Medication Education Description: Evaluate/instruct patient/caregiver on obtaining, storing, identifying and administering ordered medications as well as keeping accurate medication list in the home and adhereing to medication schedule Problem:Medication Education Goal:Patient/caregive r will demonstrate ability to obtain, store, identify and administer ordered medications, keep accurate medication list in home, and adhere to medication schedule Completed Patient instructed on importance of keeping accurate medication list in home and adhering to medication schedule. Risk of Sepsis Description: Patient is at risk for sepsis. Monitor closely for s/s of sepsis. Problem:Sepsis Goal:Patient/caregive r will be able to identify and report symptoms of sepsis Completed SPO2 Description: Notify Dr. Lindsey if pulse ox is <92% at rest. Problem:Physician Specific Parameters Goal:Patient to maintain parameters within physician-specified ranges throughout certification period Completed Instruct on individual fall risk factors and strategies to prevent falls and injuries caused by falls. Problem:Risk for Falls Goal:Manage Risk for falls Completed PT: Patient instructed on Eliminating Environmental Hazards: Keep pathways clear, Remove unsafe rugs and Move furniture from pathways Managing Impaired Functional Mobility: Use assistive device(s): front wheeled walker Managing Pain Instruct on pain and instruct on strategies to control pain Problem:Pain Goal:Manage Pain Completed patient instructed on techniques to control pain including Pharmacological measures and Non-Pharmacological measures; rest and positioning/elevation. Monitor lower extremities for skin lesions and educate on proper foot care Problem:Diabetic Foot Care Goal:Manage diabetic foot care Completed patient instructed on diabetic foot care including daily skin inspection and wearing proper footwear/avoiding going barefoot. Opioids- Instruct on high risk medication Problem:High Risk Medications Goal:Patient/caregive r will teach back high risk medication side effect and precaution education Completed patient instructed on the following: Possible side effects of opioid medication including sedation, decreased rate of breathing, and constipation. Instructed on reporting over sedation to prescribing physician, practice deep breathing techniques every hour while awake, and prevention of constipation by increasing water and fiber intake, increase activity as tolerated, and use stool softener as prescribed. Only take opioids as prescribed, do not share your medications, and take proper precautions in storing and properly disposing of opioids once no longer needed. Follow providers guidelines for driving and weaning from prescribed opioid. Physical Therapy Therapeutic Exercises Problem:PT Impaired muscle performance and/or ROM Goal:Improved Muscle Performance and/or ROM Completed patient instructed on strengthening exercises including supine AP/QS/GS/SAQ/heel slides and hip abd x 10 with verbal and tactile cues for follow through and completion. patient instructed to perform home exercise program three times a day which included per handouts. Physical Therapy Transfer Training Problem:PT Impaired mobility Goal:Improved Transfers Completed Transfer training and instruction to patient on safe transfers to and from bed and chair with supervision and verbal cues for technique . { Physical Therapy Bed Mobility Training Problem:PT Impaired mobility Goal:Improved Bed Mobility Completed Bed mobility training and instruction to patient, including rolling and repositioning self with stand by assist and verbal cues for technique . { Physical Therapy Stair Training Problem:PT Impaired gait Goal:Improved Stair Climbing Completed pt asking questions about steps but does not want to try them today Physical Therapy Gait Training Problem:PT Impaired gait Goal:Improved Gait Completed Gait training and instruction to patient on safe ambulation with front wheeled walker for 40' x 2 feet with supervision, with verbal cues for corrections of gait deviations including heel toe pattern . Instruct on orthopedic precautions and weight bearing restrictions Description: Pt s/p R hip closed reduction, pinning - no precautions Weight bearing restrictions include: WBAT of involved extremity. Problem:PT Orthopedic Condition Goal:Manage Orthopedic Condition Completed patient instructed on orthopedic precautions. Instruct on management of edema Problem:PT Orthopedic Condition Goal:Manage Orthopedic Condition Completed Instruct patient on management of edema including elevation of RLE above the level of the heart and ice. Instruct on self-management of post surgical and/or non-surgical orthopedic intervention Problem:PT Orthopedic Condition Goal:Manage Orthopedic Condition Completed patient instructed on managagement of orthopedic condition, signs and symptoms of infection, signs and symptoms of DVT/PE, follow provider guidance for showering and instructed on when to call provider. Instruct and educate on knowledge deficits Problem:PT Learning Assessment Goal:Demonstrate understanding of education Completed patient verbalize and/or demonstrate understanding of physical therapy education including orthopedic condition management, weight bearing precautions, surgical precautions and pain management. Education methods include: verbal cues. Further education required to improve knowledge and compliance with home safety, functional activity and home exercise program. 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 ROUTINE Discipline -Physical Therapy Problems Problem Description Start Date Status Goals Interve ntions Medication Education Disciplines: Skilled Services 11/21/2021 Active 1 goal linked to scheduled/document ed intervention 1 goal intervention scheduled/document ed in this visit Sepsis Disciplines: Skilled Services 11/21/2021 Active 1 goal linked to scheduled/document ed intervention 1 goal intervention scheduled/document ed in this visit Risk for skin breakdown Disciplines: Skilled Services 11/21/2021 Active 1 goal linked to scheduled/document ed intervention 1 goal intervention scheduled/document ed in this visit Physician Specific Parameters Disciplines: Skilled Services 11/21/2021 Active 1 goal linked to scheduled/document ed intervention 1 goal intervention scheduled/document ed in this visit Risk for Falls Disciplines: Skilled Services 11/21/2021 Active 1 goal linked to scheduled/document ed intervention 1 goal intervention scheduled/document ed in this visit Pain Disciplines: Skilled Services 11/21/2021 Active 1 goal linked to scheduled/document ed intervention 1 goal intervention scheduled/document ed in this visit Discharge Disciplines: Skilled Services 11/21/2021 Active 1 goal linked to scheduled/document ed intervention 1 goal intervention scheduled/document ed in this visit PT Impaired muscle performance and/or ROM Disciplines: PT 11/21/2021 Active 1 goal linked to scheduled/document ed intervention 1 goal intervention scheduled/document ed in this visit PT Impaired mobility Disciplines: PT 11/21/2021 Active 1 goal linked to scheduled/document ed intervention 1 goal intervention scheduled/document ed in this visit PT Impaired gait Disciplines: PT 11/21/2021 Active 1 goal linked to scheduled/document ed intervention 1 goal intervention scheduled/document ed in this visit PT Orthopedic Condition Disciplines: PT 11/21/2021 Active 1 goal linked to scheduled/document ed intervention 3 goal interventions scheduled/document ed in this visit PT Learning Assessment Disciplines: PT 11/21/2021 Active 1 goal linked to scheduled/document ed intervention 1 goal intervention scheduled/document ed in this visit Goals Goal Associated Problem Outcome Goal Met? Visit Notes Patient/caregiver will demonstrate ability to obtain, store, identify and administer ordered medications, keep accurate medication list in home, and adhere to medication schedule Description: Patient/caregiver will demonstrate ability to obtain, store, identify and administer ordered medications, keep accurate medication list in home, and adhere to medication schedule by 12/07/21. Medication Education No Patient/caregiver will be able to identify and report symptoms of sepsis Description: Patient/caregiver will be able to identify signs/symptoms of sepsis infection and will verbalize actions to take if suspected by 12/07/21. Sepsis No Manage risk for skin breakdown Description: Patient/caregiver will verbalize and demonstrate understanding of the risks and measures to be taken to monitor and prevent skin breakdown by 12/07/21. Risk for skin breakdown No Patient to maintain parameters within physician-specified ranges throughout certification period Physician Specific Parameters No Manage Risk for falls Description: Patient/caregiver will verbalize knowledge of individualized fall prevention strategies by 12/07/21. Risk for Falls No Manage Pain Description: Patient/caregiver will verbalize knowledge and understanding of appropriate techniques to control pain, including pain medication and non-pharmacological techniques. Patient will verbalize or demonstrate an acceptable level of pain as evidenced by a pain score of 2/10 or less and improvement in ability to perform activities of daily living to be achieved by 12/07/21. Pain No Manage discharge planning Description: Patient/caregiver will verbalize understanding of ongoing discharge plan provided related to disease management, arrangements for outpatient and/or community services, obtaining medications, supplies, and DME, as needed throughout certification period. Discharge No Improved Muscle Performance and/or ROM Description: LTG: Patient and/or caregiver will verbalize/demonstrate independence with home exercise program, to improve functional mobility, to be achieved by 12/07/21. PT Impaired muscle performance and/or ROM No Improved Bed Mobility Description: STG: Patient will demonstrate improved bed mobility and supine <> sit independently to be achieved by 11/30/21. PT Impaired mobility No Improved Gait Description: STG: Patient will demonstrate improved gait ability as evidenced by ambulation 100 feet with front wheeled walker with supervision, in order to perform household mobility, to be achieved by 11/30/21. LTG: Patient will demonstrate improved gait ability as evidenced by ambulation 150+ feet with single point cane independently, to return to safe household and community ambulation, in order to perform limited community mobility, to be achieved by 12/07/21. PT Impaired gait No Manage Orthopedic Condition Description: Improve patient and/or caregiver understanding of post surgical and/or non-surgical orthopedic intervention management as evidenced by patient and/or caregiver able to verbalize, demonstrate, and teach back instruction, to be achieved by 12/07/21. PT Orthopedic Condition No Demonstrate understanding of education Description: Patient and/or caregiver will understand educational instruction to be achieved by 12/07/21. PT Learning Assessment No Interventions Intervention Associated Problem/Goal Status Variance Visit Notes Medication Education Description: Evaluate/instruct patient/caregiver on obtaining, storing, identifying and administering ordered medications as well as keeping accurate medication list in the home and adhereing to medication schedule Problem:Medication Education Goal:Patient/caregive r will demonstrate ability to obtain, store, identify and administer ordered medications, keep accurate medication list in home, and adhere to medication schedule Completed Patient instructed on importance of keeping accurate medication list in home. Risk of Sepsis Description: Patient is at risk for sepsis. Monitor closely for s/s of sepsis. Problem:Sepsis Goal:Patient/caregive r will be able to identify and report symptoms of sepsis Completed Instruct on the risks and measures to be taken to prevent skin breakdown Description: Patient's Rashard Score is: 18. A Rashard score <= to 18 indicates risk for skin breakdown. Problem:Risk for skin breakdown Goal:Manage risk for skin breakdown Completed patient instructed on maintaining skin integrity including: The need for every 1-2 hour turns, position changes, and maintaining activity as tolerated SPO2 Description: Notify Dr. Lindsey if pulse ox is <92% at rest. Problem:Physician Specific Parameters Goal:Patient to maintain parameters within physician-specified ranges throughout certification period Completed Instruct on individual fall risk factors and strategies to prevent falls and injuries caused by falls. Problem:Risk for Falls Goal:Manage Risk for falls Completed PT: Patient instructed on Managing Impaired Functional Mobility: Use assistive device(s): front wheeled walker Instruct on pain and instruct on strategies to control pain Problem:Pain Goal:Manage Pain Completed patient instructed on techniques to control pain including Pharmacological measures and Non-Pharmacological measures; positioning/elevation and use of thermal modalities, apply ice to affected area for the following prescribed frequency: prn. Instruct on ongoing discharge plan Problem:Discharge Goal:Manage discharge planning Completed Ongoing Discharge plan: Discharge plan discussed with patient including frequency and duration for home PT and plan for transition to: live independently at home without ongoing services. Physical Therapy Therapeutic Exercises Problem:PT Impaired muscle performance and/or ROM Goal:Improved Muscle Performance and/or ROM Completed patient instructed on strengthening exercises including ankle pumps, quad and glut sets, hip abd and adduction, saq and hewel slides x's 10 each. standing heel raises and hamstring curls x's 10 each with verbal, visual and written cues for correct form. patient instructed to perform home exercise program twice a day which included above exercises. Physical Therapy Bed Mobility Training Problem:PT Impaired mobility Goal:Improved Bed Mobility Completed Bed mobility training and instruction to patient, including supine<>sit with independent Physical Therapy Gait Training Problem:PT Impaired gait Goal:Improved Gait Completed Gait training and instruction to patient on safe ambulation with front wheeled walker and quad cane for x's 40 feet and 20feet with supervision, with verbal and visual cues for corrections of gait deviations including correct step pattern and use of cane. Instruct on orthopedic precautions and weight bearing restrictions Description: Pt s/p R hip closed reduction, pinning - no precautions Weight bearing restrictions include: WBAT of involved extremity. Problem:PT Orthopedic Condition Goal:Manage Orthopedic Condition Completed patient instructed on orthopedic precautions. Instruct on management of edema Problem:PT Orthopedic Condition Goal:Manage Orthopedic Condition Completed Instruct patient on management of edema including elevation of RLE above the level of the heart and ice. Instruct on self-management of post surgical and/or non-surgical orthopedic intervention Problem:PT Orthopedic Condition Goal:Manage Orthopedic Condition Completed patient instructed on signs and symptoms of infection, signs and symptoms of DVT/PE, instructed on when to call provider and instructed on when to call 911. Instruct and educate on knowledge deficits Problem:PT Learning Assessment Goal:Demonstrate understanding of education Completed patient verbalize and/or demonstrate understanding of physical therapy education including home exercise program. Education methods include: verbal cues. Further education required to improve knowledge and compliance with home exercise program. [facility] Visit Details Visit Type -[facility] [employer]SULTANT ROUTINE Discipline -Physical Therapy Problems Problem Description Start Date Status Goals Interve ntions Medication Education Disciplines: Skilled Services 11/21/2021 Active 1 goal linked to scheduled/document ed intervention 1 goal intervention scheduled/document ed in this visit Mental Health Disciplines: Skilled Services 11/21/2021 Active 1 goal linked to scheduled/document ed intervention 2 goal interventions scheduled/document ed in this visit Sepsis Disciplines: Skilled Services 11/21/2021 Active 1 goal linked to scheduled/document ed intervention 1 goal intervention scheduled/document ed in this visit Risk for skin breakdown Disciplines: Skilled Services 11/21/2021 Active 1 goal linked to scheduled/document ed intervention 1 goal intervention scheduled/document ed in this visit Physician Specific Parameters Disciplines: Skilled Services 11/21/2021 Active 1 goal linked to scheduled/document ed intervention 1 goal intervention scheduled/document ed in this visit Risk for Falls Disciplines: Skilled Services 11/21/2021 Active 1 goal linked to scheduled/document ed intervention 1 goal intervention scheduled/document ed in this visit Pain Disciplines: Skilled Services 11/21/2021 Active 1 goal linked to scheduled/document ed intervention 1 goal intervention scheduled/document ed in this visit Diabetic Foot Care Disciplines: Skilled Services 11/21/2021 Active 1 goal linked to scheduled/document ed intervention 1 goal intervention scheduled/document ed in this visit Discharge Disciplines: Skilled Services 11/21/2021 Active 1 goal linked to scheduled/document ed intervention 1 goal intervention scheduled/document ed in this visit PT Impaired muscle performance and/or ROM Disciplines: PT 11/21/2021 Active 1 goal linked to scheduled/document ed intervention 1 goal intervention scheduled/document ed in this visit PT Impaired mobility Disciplines: PT 11/21/2021 Active 1 goal linked to scheduled/document ed intervention 1 goal intervention scheduled/document ed in this visit PT Impaired gait Disciplines: PT 11/21/2021 Active 2 goals linked to scheduled/document ed interventions 2 goal interventions scheduled/document ed in this visit PT Impaired balance Disciplines: PT 11/21/2021 Active 1 goal linked to scheduled/document ed intervention 1 goal intervention scheduled/document ed in this visit PT Orthopedic Condition Disciplines: PT 11/21/2021 Active 1 goal linked to scheduled/document ed intervention 2 goal interventions scheduled/document ed in this visit PT Learning Assessment Disciplines: PT 11/21/2021 Active 1 goal linked to scheduled/document ed intervention 1 goal intervention scheduled/document ed in this visit Discharge Disciplines: Skilled Services 11/21/2021 Active 1 goal linked to scheduled/document ed intervention 1 goal intervention scheduled/document ed in this visit Goals Goal Associated Problem Outcome Goal Met? Visit Notes Patient/caregiver will demonstrate ability to obtain, store, identify and administer ordered medications, keep accurate medication list in home, and adhere to medication schedule Description: Patient/caregiver will demonstrate ability to obtain, store, identify and administer ordered medications, keep accurate medication list in home, and adhere to medication schedule by 12/07/21. Medication Education No Improved management of mental health condition(s) Description: Patient/caregiver will teach back mental health symptom identification and management techniques by 12/07/21. Mental Health No Patient/caregiver will be able to identify and report symptoms of sepsis Description: Patient/caregiver will be able to identify signs/symptoms of sepsis infection and will verbalize actions to take if suspected by 12/07/21. Sepsis No Manage risk for skin breakdown Description: Patient/caregiver will verbalize and demonstrate understanding of the risks and measures to be taken to monitor and prevent skin breakdown by 12/07/21. Risk for skin breakdown No Patient to maintain parameters within physician-specified ranges throughout certification period Physician Specific Parameters No Manage Risk for falls Description: Patient/caregiver will verbalize knowledge of individualized fall prevention strategies by 12/07/21. Risk for Falls No Manage Pain Description: Patient/caregiver will verbalize knowledge and understanding of appropriate techniques to control pain, including pain medication and non-pharmacological techniques. Patient will verbalize or demonstrate an acceptable level of pain as evidenced by a pain score of 2/10 or less and improvement in ability to perform activities of daily living to be achieved by 12/07/21. Pain No Manage diabetic foot care Description: Patient/caregiver will demonstrate basic understanding of and compliance with diabetic self-care management as evidenced by verbalizing purpose of daily foot care and assessment by 12/07/21. Diabetic Foot Care No Manage discharge planning Description: Patient/caregiver will verbalize understanding of ongoing discharge plan provided related to disease management, arrangements for outpatient and/or community services, obtaining medications, supplies, and DME, as needed throughout certification period. Discharge No Improved Muscle Performance and/or ROM Description: LTG: Patient and/or caregiver will verbalize/demonstrate independence with home exercise program, to improve functional mobility, to be achieved by 12/07/21. PT Impaired muscle performance and/or ROM No Improved Transfers Description: STG: Patient will demonstrate safe transfers to/from bed, chair, toilet and couch independently, to be achieved by 11/30/21. LTG: Patient will demonstrate safe transfers to/from shower/tub and car independently, to be achieved by 12/07/21. PT Impaired mobility No Improved Stair Climbing Description: STG:: Patient will demonstrate improved stair negotiation as evidenced by ascend/descend threshold/curbs steps without railing independently, to be achieved by 11/30/10. LTG: Patient will demonstrate improved stair negotiation as evidenced by ascend/descend 12 basement steps with railing independently, to safely access all areas of the home, access community and exit home, to be achieved by 12/07/21. PT Impaired gait No Improved Gait Description: STG: Patient will demonstrate improved gait ability as evidenced by ambulation 100 feet with front wheeled walker with supervision, in order to perform household mobility, to be achieved by 11/30/21. LTG: Patient will demonstrate improved gait ability as evidenced by ambulation 150+ feet with single point cane independently, to return to safe household and community ambulation, in order to perform limited community mobility, to be achieved by 12/07/21. PT Impaired gait No Improved Balance Description: LTG: Patient will demonstrate improved standing balance to meet functional goals as evidenced by TUG score of <13 to be achieved by 12/07/21. PT Impaired balance No Manage Orthopedic Condition Description: Improve patient and/or caregiver understanding of post surgical and/or non-surgical orthopedic intervention management as evidenced by patient and/or caregiver able to verbalize, demonstrate, and teach back instruction, to be achieved by 12/07/21. PT Orthopedic Condition No Demonstrate understanding of education Description: Patient and/or caregiver will understand educational instruction to be achieved by 12/07/21. PT Learning Assessment No Manage discharge planning Description: Patient/caregiver will verbalize understanding of ongoing discharge plan provided related to disease management, arrangements for outpatient and/or community services, obtaining medications, supplies, and DME, as needed throughout certification period. Discharge No Interventions Intervention Associated Problem/Goal Status Variance Visit Notes Medication Education Description: Evaluate/instruct patient/caregiver on obtaining, storing, identifying and administering ordered medications as well as keeping accurate medication list in the home and adhereing to medication schedule Problem:Medication Education Goal:Patient/caregiv er will demonstrate ability to obtain, store, identify and administer ordered medications, keep accurate medication list in home, and adhere to medication schedule Completed Patient instructed on importance of keeping accurate medication list in home. Patient/caregiver will teach back mental health symptom identification and management strategies Problem:Mental Health Goal:Improved management of mental health condition(s) Completed Patient instructed on the following: signs and symptoms of increased anxiety and when to report to physician. Instruct on depression symptoms and management Description: PHQ-2 score: below 3; Takes medication d/t hx of depression Problem:Mental Health Goal:Improved management of mental health condition(s) Completed Patient instructed on the following: signs of depression and when to report symptoms to physician. Risk of Sepsis Description: Patient is at risk for sepsis. Monitor closely for s/s of sepsis. Problem:Sepsis Goal:Patient/caregiv er will be able to identify and report symptoms of sepsis Completed Instruct on the risks and measures to be taken to prevent skin breakdown Description: Patient's Rashard Score is: 18. A Rashard score <= to 18 indicates risk for skin breakdown. Problem:Risk for skin breakdown Goal:Manage risk for skin breakdown Completed patient instructed on maintaining skin integrity including: The need for every 1-2 hour turns, position changes, and maintaining activity as tolerated SPO2 Description: Notify Dr. Lindsey if pulse ox is <92% at rest. Problem:Physician Specific Parameters Goal:Patient to maintain parameters within physician-specified ranges throughout certification period Completed Instruct on individual fall risk factors and strategies to prevent falls and injuries caused by falls. Problem:Risk for Falls Goal:Manage Risk for falls Completed PT: Patient instructed on Managing Impaired Functional Mobility: Use assistive device(s): front wheeled walker Instruct on pain and instruct on strategies to control pain Problem:Pain Goal:Manage Pain Completed patient instructed on techniques to control pain including Pharmacological measures and Non-Pharmacological measures; positioning/elevation and use of thermal modalities, apply ice to affected area for the following prescribed frequency: prn. Monitor lower extremities for skin lesions and educate on proper foot care Problem:Diabetic Foot Care Goal:Manage diabetic foot care Completed patient instructed on diabetic foot care including wearing proper footwear/avoiding going barefoot. Instruct on ongoing discharge plan Problem:Discharge Goal:Manage discharge planning Completed Ongoing Discharge plan: Discharge plan discussed with patient including frequency and duration for home PT and plan for transition to: live independently at home without ongoing services. Physical Therapy Therapeutic Exercises Problem:PT Impaired muscle performance and/or ROM Goal:Improved Muscle Performance and/or ROM Completed patient instructed on strengthening exercises including ann standing : heel raises, hip abd and flexion, hamstring curls and mini sits x's 10 each with verbal, visual and written cues for correct form and pace. patient instructed to perform home exercise program twice a day which included ann standing exercises. Physical Therapy Transfer Training Problem:PT Impaired mobility Goal:Improved Transfers Completed Transfer training and instruction to patient on safe transfers to and from bed and chair with independent Physical Therapy Stair Training Problem:PT Impaired gait Goal:Improved Stair Climbing Completed Stair training and instruction to patient on safe stair climbing, ascend/descend 1 steps, without railing and with cane with supervision and verbal cues for safety. Physical Therapy Gait Training Problem:PT Impaired gait Goal:Improved Gait Completed Gait training and instruction to patient on safe ambulation with front wheeled walker x's 100 feet and single point cane for 80 and 40 feet with stand by assist, with verbal cues for corrections of gait deviations including correct cane use.. Physical Therapy Balance Training Problem:PT Impaired balance Goal:Improved Balance Completed Developed, implemented, and instructed patient on standing balance exercises including standing exercises and cane training. Instruct on orthopedic precautions and weight bearing restrictions Description: Pt s/p R hip closed reduction, pinning - no precautions Weight bearing restrictions include: WBAT of involved extremity. Problem:PT Orthopedic Condition Goal:Manage Orthopedic Condition Completed patient instructed on orthopedic precautions. Instruct on management of edema Problem:PT Orthopedic Condition Goal:Manage Orthopedic Condition Completed Instruct patient on management of edema including elevation of RLE above the level of the heart and ice. Instruct and educate on knowledge deficits Problem:PT Learning Assessment Goal:Demonstrate understanding of education Completed patient verbalize and/or demonstrate understanding of physical therapy education including home exercise program. Education methods include: verbal cues. Further education required to improve knowledge and compliance with home exercise program. Deliver [facility] Problem:Discharge Goal:Manage discharge planning Completed Delivered [facility] on 12/03/21 for discharge date of 12/05/21. Patient denies questions/concerns with form. [facility] Visit Details Visit Type -PT AGENCY DC W V ISIT Discipline -Physical Therapy Problems Problem Description Start Date Status Goals Interve ntions Medication Education Disciplines: Skilled Services 11/21/2021 Resolved on 12/05/2021 1 goal linked to scheduled/[facility] intervention 1 goal intervention scheduled/documen angelica in this visit Mental Health Disciplines: Skilled Services 11/21/2021 Resolved on 12/05/2021 1 goal linked to scheduled/documen angelica intervention 2 goal interventions scheduled/documen angeilca in this visit Sepsis Disciplines: Skilled Services 11/21/2021 Resolved on 12/05/2021 1 goal linked to scheduled/documen angelica intervention 1 goal intervention scheduled/documen angelica in this visit Risk for skin breakdown Disciplines: Skilled Services 11/21/2021 Resolved on 12/05/2021 1 goal linked to scheduled/documen angelica intervention 1 goal intervention scheduled/documen angelica in this visit Physician Specific Parameters Disciplines: Skilled Services 11/21/2021 Resolved on 12/05/2021 1 goal linked to scheduled/documen angelica intervention 1 goal intervention scheduled/documen angelica in this visit Risk for Falls Disciplines: Skilled Services 11/21/2021 Resolved on 12/05/2021 1 goal linked to scheduled/documen angelica intervention 1 goal intervention scheduled/documen angelica in this visit Pain Disciplines: Skilled Services 11/21/2021 Resolved on 12/05/2021 1 goal linked to scheduled/documen angelica intervention 1 goal intervention scheduled/documen angelica in this visit Diabetic Foot Care Disciplines: Skilled Services 11/21/2021 Resolved on 12/05/2021 1 goal linked to scheduled/documen angelica intervention 1 goal intervention scheduled/documen angelica in this visit High Risk Medications Disciplines: Skilled Services 11/21/2021 Resolved on 12/05/2021 1 goal linked to scheduled/documen angelica intervention 1 goal intervention scheduled/documen angelica in this visit Discharge Disciplines: Skilled Services 11/21/2021 Resolved on 12/05/2021 1 goal linked to scheduled/documen angelica intervention 1 goal intervention scheduled/documen angelica in this visit PT Impaired muscle performance and/or ROM Disciplines: PT 11/21/2021 Resolved on 12/05/2021 1 goal linked to scheduled/documen angelica intervention 1 goal intervention scheduled/documen angelica in this visit PT Impaired mobility Disciplines: PT 11/21/2021 Resolved on 12/05/2021 2 goals linked to scheduled/documen angelica interventions 2 goal interventions scheduled/documen angelica in this visit PT Impaired gait Disciplines: PT 11/21/2021 Resolved on 12/05/2021 2 goals linked to scheduled/documen angelica interventions 2 goal interventions scheduled/documen angelica in this visit PT Impaired balance Disciplines: PT 11/21/2021 Resolved on 12/05/2021 1 goal linked to scheduled/documen angelica intervention 1 goal intervention scheduled/documen angelica in this visit PT Orthopedic Condition Disciplines: PT 11/21/2021 Resolved on 12/05/2021 1 goal linked to scheduled/documen angelica intervention 3 goal interventions scheduled/documen angelica in this visit PT Learning Assessment Disciplines: PT 11/21/2021 Resolved on 12/05/2021 1 goal linked to scheduled/documen angelica intervention 1 goal intervention scheduled/documen angelica in this visit PT Cardiovascular Disease Disciplines: PT 11/21/2021 Resolved on 12/05/2021 1 goal linked to scheduled/documen angelica intervention 1 goal intervention scheduled/documen angelica in this visit PT Pulmonary Disease Disciplines: PT 11/21/2021 Resolved on 12/05/2021 1 goal linked to scheduled/documen angelica intervention 1 goal intervention scheduled/documen angelica in this visit Discharge Disciplines: Skilled Services 11/21/2021 Resolved on 12/05/2021 1 goal linked to scheduled/documen angelica intervention Goals Goal Associated Problem Outcome Goal Met? Visit Notes Patient/caregiver will demonstrate ability to obtain, store, identify and administer ordered medications, keep accurate medication list in home, and adhere to medication schedule Description: Patient/caregiver will demonstrate ability to obtain, store, identify and administer ordered medications, keep accurate medication list in home, and adhere to medication schedule by 12/07/21. Medication Education Completed Yes Improved management of mental health condition(s) Description: Patient/caregiver will teach back mental health symptom identification and management techniques by 12/07/21. Mental Health Completed Yes Patient/caregiver will be able to identify and report symptoms of sepsis Description: Patient/caregiver will be able to identify signs/symptoms of sepsis infection and will verbalize actions to take if suspected by 12/07/21. Sepsis Completed Yes Manage risk for skin breakdown Description: Patient/caregiver will verbalize and demonstrate understanding of the risks and measures to be taken to monitor and prevent skin breakdown by 12/07/21. Risk for skin breakdown Completed Yes Patient to maintain parameters within physician-specified ranges throughout certification period Physician Specific Parameters Completed Yes Manage Risk for falls Description: Patient/caregiver will verbalize knowledge of individualized fall prevention strategies by 12/07/21. Risk for Falls Completed Yes Manage Pain Description: Patient/caregiver will verbalize knowledge and understanding of appropriate techniques to control pain, including pain medication and non-pharmacological techniques. Patient will verbalize or demonstrate an acceptable level of pain as evidenced by a pain score of 2/10 or less and improvement in ability to perform activities of daily living to be achieved by 12/07/21. Pain Completed Yes Manage diabetic foot care Description: Patient/caregiver will demonstrate basic understanding of and compliance with diabetic self-care management as evidenced by verbalizing purpose of daily foot care and assessment by 12/07/21. Diabetic Foot Care Completed Yes Patient/caregiver will teach back high risk medication side effect and precaution education High Risk Medications Completed Yes Manage discharge planning Description: Patient/caregiver will verbalize understanding of ongoing discharge plan provided related to disease management, arrangements for outpatient and/or community services, obtaining medications, supplies, and DME, as needed throughout certification period. Discharge Completed Yes Improved Muscle Performance and/or ROM Description: LTG: Patient and/or caregiver will verbalize/demonstrate independence with home exercise program, to improve functional mobility, to be achieved by 12/07/21. PT Impaired muscle performance and/or ROM Completed Yes Improved Transfers Description: STG: Patient will demonstrate safe transfers to/from bed, chair, toilet and couch independently, to be achieved by 11/30/21. LTG: Patient will demonstrate safe transfers to/from shower/tub and car independently, to be achieved by 12/07/21. PT Impaired mobility Completed Yes Improved Bed Mobility Description: STG: Patient will demonstrate improved bed mobility and supine <> sit independently to be achieved by 11/30/21. PT Impaired mobility Completed Yes Improved Stair Climbing Description: STG:: Patient will demonstrate improved stair negotiation as evidenced by ascend/descend threshold/curbs steps without railing independently, to be achieved by 11/30/10. LTG: Patient will demonstrate improved stair negotiation as evidenced by ascend/descend 12 basement steps with railing independently, to safely access all areas of the home, access community and exit home, to be achieved by 12/07/21. PT Impaired gait Completed Yes Improved Gait Description: STG: Patient will demonstrate improved gait ability as evidenced by ambulation 100 feet with front wheeled walker with supervision, in order to perform household mobility, to be achieved by 11/30/21. LTG: Patient will demonstrate improved gait ability as evidenced by ambulation 150+ feet with single point cane independently, to return to safe household and community ambulation, in order to perform limited community mobility, to be achieved by 12/07/21. PT Impaired gait Completed Yes Improved Balance Description: LTG: Patient will demonstrate improved standing balance to meet functional goals as evidenced by TUG score of <13 to be achieved by 12/07/21. PT Impaired balance Completed Yes Manage Orthopedic Condition Description: Improve patient and/or caregiver understanding of post surgical and/or non-surgical orthopedic intervention management as evidenced by patient and/or caregiver able to verbalize, demonstrate, and teach back instruction, to be achieved by 12/07/21. PT Orthopedic Condition Completed Yes Demonstrate understanding of education Description: Patient and/or caregiver will understand educational instruction to be achieved by 12/07/21. PT Learning Assessment Completed Yes Manage Secondary Cardiovascular disease Description: Improve patient and/or caregiver understanding of secondary cardiovascular disease management as evidenced by patient and/or caregiver able to verbalize, demonstrate, and teach back instruction, to be achieved by 12/07/21. PT Cardiovascular Disease Completed Yes Manage Secondary Pulmonary Disease Description: Improve patient and/or caregiver understanding of secondary pulmonary disease management as evidenced by patient and/or caregiver able to verbalize, demonstrate, and teach back instruction, to be achieved by 12/07/21. PT Pulmonary Disease Completed Yes Manage discharge planning Description: Patient/caregiver will verbalize understanding of ongoing discharge plan provided related to disease management, arrangements for outpatient and/or community services, obtaining medications, supplies, and DME, as needed throughout certification period. Discharge Completed Yes Interventions Intervention Associated Problem/Goal Status Variance Visit Notes Medication Education Description: Evaluate/instruct patient/caregiver on obtaining, storing, identifying and administering ordered medications as well as keeping accurate medication list in the home and adhereing to medication schedule Problem:Medication Education Goal:Patient/caregive r will demonstrate ability to obtain, store, identify and administer ordered medications, keep accurate medication list in home, and adhere to medication schedule Completed Patient instructed on importance of keeping accurate medication list in home and adhering to medication schedule. Patient/caregiver will teach back mental health symptom identification and management strategies Problem:Mental Health Goal:Improved management of mental health condition(s) Completed Patient instructed on the following: signs and symptoms of increased anxiety and when to report to physician and importance of medication adherence. Instruct on depression symptoms and management Description: PHQ-2 score: below 3; Takes medication d/t hx of depression Problem:Mental Health Goal:Improved management of mental health condition(s) Completed Patient instructed on the following: signs of depression and when to report symptoms to physician. Risk of Sepsis Description: Patient is at risk for sepsis. Monitor closely for s/s of sepsis. Problem:Sepsis Goal:Patient/caregive r will be able to identify and report symptoms of sepsis Completed Instruct on the risks and measures to be taken to prevent skin breakdown Description: Patient's Rashard Score is: 18. A Rashard score <= to 18 indicates risk for skin breakdown. Problem:Risk for skin breakdown Goal:Manage risk for skin breakdown Completed patient instructed on maintaining skin integrity including: Routine skin care and Notifying [facility] clinician of changes to skin integrity Evaluation for pressure reduction surfaces completed for bed. SPO2 Description: Notify Dr. Lindsey if pulse ox is <92% at rest. Problem:Physician Specific Parameters Goal:Patient to maintain parameters within physician-specified ranges throughout certification period Completed Instruct on individual fall risk factors and strategies to prevent falls and injuries caused by falls. Problem:Risk for Falls Goal:Manage Risk for falls Completed PT: Patient instructed on Eliminating Environmental Hazards: Keep pathways clear, Keep pets out of pathways and Move furniture from pathways Managing Impaired Functional Mobility: Use assistive device(s): single point cane Managing Pain Instruct on pain and instruct on strategies to control pain Problem:Pain Goal:Manage Pain Completed patient instructed on techniques to control pain including Pharmacological measures and Non-Pharmacological measures; rest and positioning/elevation. Monitor lower extremities for skin lesions and educate on proper foot care Problem:Diabetic Foot Care Goal:Manage diabetic foot care Completed patient instructed on diabetic foot care including daily skin inspection and wearing proper footwear/avoiding going barefoot. Opioids- Instruct on high risk medication Problem:High Risk Medications Goal:Patient/caregive r will teach back high risk medication side effect and precaution education Completed patient instructed on the following: Possible side effects of opioid medication including sedation, decreased rate of breathing, and constipation. Instructed on reporting over sedation to prescribing physician, practice deep breathing techniques every hour while awake, and prevention of constipation by increasing water and fiber intake, increase activity as tolerated, and use stool softener as prescribed. Only take opioids as prescribed, do not share your medications, and take proper precautions in storing and properly disposing of opioids once no longer needed. Follow providers guidelines for driving and weaning from prescribed opioid. Instruct on final discharge plan and deliver discharge instructions Problem:Discharge Goal:Manage discharge planning Completed Delivered Discharge plan: Discharge plan discussed with patient for plan for transition to: outpatient therapy Physical Therapy Therapeutic Exercises Problem:PT Impaired muscle performance and/or ROM Goal:Improved Muscle Performance and/or ROM Completed patient instructed on strengthening exercises including ann standing : heel raises, hip abd and flexion, hamstring curls and mini sits x's 10 each with verbal, visual and written cues for correct form and pace. patient instructed to perform home exercise program twice a day which included ann standing exercises. Physical Therapy Transfer Training Problem:PT Impaired mobility Goal:Improved Transfers Completed [place] transfers with safe /proepr technique Physical Therapy Bed Mobility Training Problem:PT Impaired mobility Goal:Improved Bed Mobility Completed EDISON bed mobility Physical Therapy Stair Training Problem:PT Impaired gait Goal:Improved Stair Climbing Completed up and down 1 flight with rial + cane with step together sequence Physical Therapy Gait Training Problem:PT Impaired gait Goal:Improved Gait Completed Indep amb with st cnae with steady recip pattern x 150' Physical Therapy Balance Training Problem:PT Impaired balance Goal:Improved Balance Completed pt demonstartes improved dynamic standing balanec as evidenced by a tug of 14 Instruct on orthopedic precautions and weight bearing restrictions Description: Pt s/p R hip closed reduction, pinning - no precautions Weight bearing restrictions include: WBAT of involved extremity. Problem:PT Orthopedic Condition Goal:Manage Orthopedic Condition Completed patient instructed on orthopedic precautions. Instruct on management of edema Problem:PT Orthopedic Condition Goal:Manage Orthopedic Condition Completed Instruct patient on management of edema including elevation of RLE above the level of the heart and ice. Instruct on self-management of post surgical and/or non-surgical orthopedic intervention Problem:PT Orthopedic Condition Goal:Manage Orthopedic Condition Completed patient instructed on managagement of orthopedic condition, signs and symptoms of infection, signs and symptoms of DVT/PE, follow provider guidance for showering and instructed on when to call provider. Instruct and educate on knowledge deficits Problem:PT Learning Assessment Goal:Demonstrate understanding of education Completed patient verbalize and/or demonstrate understanding of physical therapy education including home exercise program. Education methods include: verbal cues. Further education required to improve knowledge and compliance with home exercise program. Instruct on signs, symptoms, and management of secondary cardiovascular disease Problem:PT Cardiovascular Disease Goal:Manage Secondary Cardiovascular disease Completed Instructed patient on instructed on when to call provider. Instruct on signs, symptoms, and management of secondary pulmonary disease Problem:PT Pulmonary Disease Goal:Manage Secondary Pulmonary Disease Completed patient instructed on instructed on when to call provider. [facility] Visit Details Visit Type -PT SOC Discipline -Physical Therapy Problems Problem Description Start Date Status Goals Interve ntions PT Impaired muscle performance and/or ROM Disciplines: PT 07/11/2022 Active 1 goal linked to scheduled/document ed intervention 1 goal intervention scheduled/document ed in this visit PT Orthopedic Condition Disciplines: PT 07/11/2022 Active 1 goal linked to scheduled/document ed intervention 3 goal interventions scheduled/document ed in this visit PT Learning Assessment Disciplines: PT 07/11/2022 Active 1 goal linked to scheduled/document ed intervention 1 goal intervention scheduled/document ed in this visit Medication Education Disciplines: Skilled Services 07/11/2022 Active 1 goal linked to scheduled/document ed intervention 1 goal intervention scheduled/document ed in this visit Physician Specific Parameters Disciplines: Skilled Services 07/11/2022 Active 1 goal linked to scheduled/document ed intervention 1 goal intervention scheduled/document ed in this visit Risk for Falls Disciplines: Skilled Services 07/11/2022 Active 1 goal linked to scheduled/document ed intervention 1 goal intervention scheduled/document ed in this visit Pain Disciplines: Skilled Services 07/11/2022 Active 1 goal linked to scheduled/document ed intervention 1 goal intervention scheduled/document ed in this visit Diabetic Foot Care Disciplines: Skilled Services 07/11/2022 Active 1 goal linked to scheduled/document ed intervention 1 goal intervention scheduled/document ed in this visit High Risk Medications Disciplines: Skilled Services 07/11/2022 Active 1 goal linked to scheduled/document ed intervention 4 goal interventions scheduled/document ed in this visit Advance Directives Disciplines: Skilled Services 07/11/2022 Active 1 goal linked to scheduled/document ed intervention 1 goal intervention scheduled/document ed in this visit Goals Goal Associated Problem Outcome Goal Met? Visit Notes Improved Muscle Performance and/or ROM Description: LTG: Patient will demonstrate improved muscle performance to meet functional goals as evidenced by ability to tolerate 10 minutes of stadning activity, to be achieved by 08/02/22 . STG: Patient and/or caregiver will verbalize/demonstrate independence with home exercise program, to improve functional mobility, to be achieved by 07/19/22. PT Impaired muscle performance and/or ROM No Manage Orthopedic Condition Description: Improve patient and/or caregiver understanding of post surgical and/or non-surgical orthopedic intervention management as evidenced by patient and/or caregiver able to verbalize, demonstrate, and teach back instruction, to be achieved by 09/08/22. . PT Orthopedic Condition No Demonstrate understanding of education Description: Patient and/or caregiver will understand educational instruction to be achieved by 08/02/22 . PT Learning Assessment No Patient/caregiver will demonstrate ability to obtain, store, identify and administer ordered medications, keep accurate medication list in home, and adhere to medication schedule Description: Patient/caregiver will demonstrate ability to obtain, store, identify and administer ordered medications, keep accurate medication list in home, and adhere to medication schedule by 09/08/22. . Medication Education No Patient to maintain parameters within physician-specified ranges throughout certification period Physician Specific Parameters No Manage Risk for falls Description: Patient/caregiver will verbalize knowledge of individualized fall prevention strategies by 09/08/22. . Risk for Falls No Manage Pain Description: Patient/caregiver will verbalize knowledge and understanding of appropriate techniques to control pain, including pain medication and non-pharmacological techniques. Patient will verbalize or demonstrate an acceptable level of pain as evidenced by a pain score of <5/10 and improvement in ability to perform activities of daily living to be achieved by 09/08/22. . Pain No Manage diabetic foot care Description: Patient/caregiver will demonstrate basic understanding of and compliance with diabetic self-care management as evidenced by verbalizing purpose of daily foot care and assessment by 09/08/22. Diabetic Foot Care No Patient/caregiver will teach back high risk medication side effect and precaution education High Risk Medications No Patient/caregiver will make healthcare providers aware of and any changes to Advance Directives throughout certification period Advance Directives No Interventions Intervention Associated Problem/Goal Status Variance Visit Notes Physical Therapy Therapeutic Exercises Problem:PT Impaired muscle performance and/or ROM Goal:Improved Muscle Performance and/or ROM Completed patient instructed on strengthening exercises including Supine : GS,QS,HS, HIPADD, HIP ABD, HEEL SLIDES, SAQ, X 10 with verbal, tactile and written cues for technique/reps. patient instructed to perform home exercise program twice a day which included hourly ambulation . Instruct on orthopedic precautions and weight bearing restrictions Description: Orthopedic precautions including right posterior hip: no hip flexion > 90 degrees, no adduction and no ir/er rotation of involved extermity. Weight bearing restrictions include: 50% PWB of involved extremity. Problem:PT Orthopedic Condition Goal:Manage Orthopedic Condition Completed patient instructed on orthopedic precautions and weight bearing restrictions. Instruct on management of edema Problem:PT Orthopedic Condition Goal:Manage Orthopedic Condition Completed Instruct patient on management of edema including elevation of RLE above the level of the heart and ice. Instruct on self-management of post surgical and/or non-surgical orthopedic intervention Problem:PT Orthopedic Condition Goal:Manage Orthopedic Condition Completed patient instructed on managagement of orthopedic condition, eating foods with high protein, signs and symptoms of infection, signs and symptoms of DVT/PE and instructed on when to call provider. Instruct and educate on knowledge deficits Problem:PT Learning Assessment Goal:Demonstrate understanding of education Completed patient verbalize and/or demonstrate understanding of physical therapy education including orthopedic condition management, weight bearing precautions, surgical precautions, pain management, fall prevention strategies, home safety, functional activity and home exercise program. Education methods include: verbal cues and written instructions. Further education required to improve knowledge and compliance with orthopedic condition management, weight bearing precautions, surgical precautions, pain management, fall prevention strategies, home safety, functional activity and home exercise program. Medication Education Description: Evaluate/instruct patient/caregiver on obtaining, storing, identifying and administering ordered medications as well as keeping accurate medication list in the home and adhereing to medication schedule Problem:Medication Education Goal:Patient/caregive r will demonstrate ability to obtain, store, identify and administer ordered medications, keep accurate medication list in home, and adhere to medication schedule Completed Patient instructed on importance of keeping accurate medication list in home and adhering to medication schedule. SPO2 Description: Notify Dr. Patricia if pulse ox is <92% at rest. Problem:Physician Specific Parameters Goal:Patient to maintain parameters within physician-specified ranges throughout certification period Completed Instruct on individual fall risk factors and strategies to prevent falls and injuries caused by falls. Problem:Risk for Falls Goal:Manage Risk for falls Completed PT: Patient instructed on Eliminating Environmental Hazards: Keep pathways clear, Keep pets out of pathways, Remove unsafe rugs and Move furniture from pathways Managing Impaired Functional Mobility: Use assistive device(s): front wheeled walker Managing Pain Instruct on pain and instruct on strategies to control pain Problem:Pain Goal:Manage Pain Completed patient instructed on techniques to control pain including Pharmacological measures and Non-Pharmacological measures; rest, positioning/elevation and use of thermal modalities, apply ice to affected area. Monitor lower extremities for skin lesions and educate on proper foot care Problem:Diabetic Foot Care Goal:Manage diabetic foot care Completed patient instructed on diabetic foot care including daily skin inspection and wearing proper footwear/avoiding going barefoot. Opioids- educated on high risk medication Problem:High Risk Medications Goal:Patient/caregive r will teach back high risk medication side effect and precaution education Completed patient educated on taking medication(s) as prescribed by provider. Do not stop medication or alter doses without speaking with your provider. Discuss medication effectiveness or side effect concerns with your provider and home care team. Only take opioids as prescribed, do not share your medications, and take proper precautions in storing and properly disposing of opioids once no longer needed. Possible side effects of opioid medication including sedation, decreased rate of breathing, and constipation. Report over sedation to prescribing provider and practice deep breathing techniques every hour while awake. Prevent constipation by increasing water and fiber intake, increasing activity as tolerated, and use stool softener(s) as prescribed. Hypoglycemic (including insulin)- educated on high risk medication Problem:High Risk Medications Goal:Patient/caregive r will teach back high risk medication side effect and precaution education Completed patient educated on taking medication(s) as prescribed by provider. Do not stop medication or skip/alter doses without speaking with your provider. Discuss medication effectiveness or side effect concerns with your provider and home care team. Check blood sugars and keep log as ordered by provider. Monitor for side effects of hypoglycemia such as increased weakness or shaking, moist skin, sweating, fast heartbeat, dizziness, sudden hunger, confusion, pale skin, numbness in mouth or tongue, irritability, nervousness, unsteadiness, nightmares, bad dreams, and restless sleep. Checking your blood sugar routinely and eating a consistent diabetic diet can help regulate blood sugars and reduce side effects. Antiplatelet- educated on high risk medication Problem:High Risk Medications Goal:Patient/caregive r will teach back high risk medication side effect and precaution education Completed patient educated on taking medication(s) as prescribed by provider. Do not stop medication or alter doses without speaking with your provider. Discuss medication effectiveness or side effect concerns with your provider and home care team. Discuss all medications you are taking, even [id number] medicines, with your provider and pharmacist since many drugs can interact with antiplatelet medications. If you forget to take a dose, DO NOT take a double dose. Take the missed dose as soon as possible on the same day. DO NOT take a double dose the next day to make up for the missed dose. Watch for signs of abnormal or excessive bleeding and bruising (refer to Bleeding Precautions education). Call your health care provider right away if you suspect something is wrong. Antibiotic- educated on high risk medication Problem:High Risk Medications Goal:Patient/caregive r will teach back high risk medication side effect and precaution education Completed patient educated on taking medication(s) as prescribed by provider. Do not stop medication or alter doses without speaking with your provider. Discuss medication effectiveness or side effect concerns with your provider and home care team. Take the full dispensed amount even if you start feeling better, as bacteria can become resistant to antibiotic treatment if you do not finish your prescription. Common side effects are upset stomach and diarrhea. Take your antibiotics with food unless otherwise indicated to help with indigestion. Taking an [id number] probiotic or eating yogurt with live and active cultures three times a day can help prevent antibiotic-associated diarrhea. Call your provider immediately if you develop rashes or hives as this could be a delayed allergic reaction. Seek emergency treatment if you develop severe allergic reaction symptoms such as mouth or tongue swelling. Determine patient's Advance Directive Status Description: Patient does have advance directives. Patient's Advance Directives determined to be available in Home and EMR Healthcare DPOA and Living Will. Problem:Advance Directives Goal:Patient/caregive r will make healthcare providers aware of and any changes to Advance Directives throughout certification period Completed Discussed Advance Directives with Patient and/or Caregiver. Referred patient to Home Care handbook for further information on Healthcare DPOA & Living Will. 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 ROUTINE Discipline -Physical Therapy Problems Problem Description Start Date Status Goals Interve ntions PT Impaired muscle performance and/or ROM Disciplines: PT 07/11/2022 Active 1 goal linked to scheduled/document ed intervention 1 goal intervention scheduled/document ed in this visit PT Impaired mobility Disciplines: PT 07/11/2022 Active 2 goals linked to scheduled/document ed interventions 2 goal interventions scheduled/document ed in this visit PT Impaired gait Disciplines: PT 07/11/2022 Active 1 goal linked to scheduled/document ed intervention 1 goal intervention scheduled/document ed in this visit PT Orthopedic Condition Disciplines: PT 07/11/2022 Active 1 goal linked to scheduled/document ed intervention 4 goal interventions scheduled/document ed in this visit PT Learning Assessment Disciplines: PT 07/11/2022 Active 1 goal linked to scheduled/document ed intervention 1 goal intervention scheduled/document ed in this visit Medication Education Disciplines: Skilled Services 07/11/2022 Active 1 goal linked to scheduled/document ed intervention 1 goal intervention scheduled/document ed in this visit Physician Specific Parameters Disciplines: Skilled Services 07/11/2022 Active 1 goal linked to scheduled/document ed intervention 1 goal intervention scheduled/document ed in this visit Risk for Falls Disciplines: Skilled Services 07/11/2022 Active 1 goal linked to scheduled/document ed intervention 1 goal intervention scheduled/document ed in this visit Pain Disciplines: Skilled Services 07/11/2022 Active 1 goal linked to scheduled/document ed intervention 1 goal intervention scheduled/document ed in this visit High Risk Medications Disciplines: Skilled Services 07/11/2022 Active 1 goal linked to scheduled/document ed intervention 2 goal interventions scheduled/document ed in this visit Discharge Disciplines: Skilled Services 07/11/2022 Active 1 goal linked to scheduled/document ed intervention 1 goal intervention scheduled/document ed in this visit Goals Goal Associated Problem Outcome Goal Met? Visit Notes Improved Muscle Performance and/or ROM Description: LTG: Patient will demonstrate improved muscle performance to meet functional goals as evidenced by ability to tolerate 10 minutes of stadning activity, to be achieved by 08/02/22 . STG: Patient and/or caregiver will verbalize/demonstrate independence with home exercise program, to improve functional mobility, to be achieved by 07/19/22. PT Impaired muscle performance and/or ROM No Improved Transfers Description: LTG: Patient will demonstrate safe transfers to/from bed, chair, toilet, couch, shower/tub and car independently with AD, to be achieved by 08/02/22 . PT Impaired mobility No Improved Bed Mobility Description: STG: Patient will demonstrate improved bed mobility, ability to position self and supine <> sit independently to be achieved by 07/26/22. PT Impaired mobility No Improved Gait Description: STG: Patient will demonstrate improved gait ability as evidenced by ambulation 150 feet with front wheeled walker independently with AD, in order to Manuever throughout home , to be achieved by 07/22/22. LTG: Patient will demonstrate improved gait ability as evidenced by ambulation 150 feet with single point cane independently with AD, to return to safe household and community ambulation, , to be achieved by 08/02/22 . PT Impaired gait No Manage Orthopedic Condition Description: Improve patient and/or caregiver understanding of post surgical and/or non-surgical orthopedic intervention management as evidenced by patient and/or caregiver able to verbalize, demonstrate, and teach back instruction, to be achieved by 09/08/22. . PT Orthopedic Condition No Demonstrate understanding of education Description: Patient and/or caregiver will understand educational instruction to be achieved by 08/02/22 . PT Learning Assessment No Patient/caregiver will demonstrate ability to obtain, store, identify and administer ordered medications, keep accurate medication list in home, and adhere to medication schedule Description: Patient/caregiver will demonstrate ability to obtain, store, identify and administer ordered medications, keep accurate medication list in home, and adhere to medication schedule by 09/08/22. . Medication Education No Patient to maintain parameters within physician-specified ranges throughout certification period Physician Specific Parameters No Manage Risk for falls Description: Patient/caregiver will verbalize knowledge of individualized fall prevention strategies by 09/08/22. . Risk for Falls No Manage Pain Description: Patient/caregiver will verbalize knowledge and understanding of appropriate techniques to control pain, including pain medication and non-pharmacological techniques. Patient will verbalize or demonstrate an acceptable level of pain as evidenced by a pain score of <5/10 and improvement in ability to perform activities of daily living to be achieved by 09/08/22. . Pain No Patient/caregiver will teach back high risk medication side effect and precaution education High Risk Medications No Manage discharge planning Description: Patient/caregiver will verbalize understanding of ongoing discharge plan provided related to disease management, arrangements for outpatient and/or community services, obtaining medications, supplies, and DME, as needed throughout certification period. Discharge No Interventions Intervention Associated Problem/Goal Status Variance Visit Notes Physical Therapy Therapeutic Exercises Problem:PT Impaired muscle performance and/or ROM Goal:Improved Muscle Performance and/or ROM Completed patient instructed on strengthening exercises including ankle pumps, quad and glut sets, hip abd and add. saq and heel slides x's 10 each with verbal, visual and written cues for correct form. patient instructed to perform home exercise program twice a day which included above exercises. Physical Therapy Transfer Training Problem:PT Impaired mobility Goal:Improved Transfers Completed Transfer training and instruction to patient on safe transfers to and from bed and couch with stand by assist and verbal cues for maintaining precautions Physical Therapy Bed Mobility Training Problem:PT Impaired mobility Goal:Improved Bed Mobility Completed Bed mobility training and instruction to patient, including supine<>sit with minimal assist and verbal cues for safety. 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 Physical Therapy Gait Training Problem:PT Impaired gait Goal:Improved Gait Completed Gait training and instruction to patient on safe ambulation with front wheeled walker for 3x's 3-30 feet with stand by assist, with verbal cues for corrections of gait deviations including PWB. Instruct on orthopedic precautions and weight bearing restrictions Description: Orthopedic precautions including right posterior hip: no hip flexion > 90 degrees, no adduction and no ir/er rotation of involved extermity. Weight bearing restrictions include: 50% PWB of involved extremity. Problem:PT Orthopedic Condition Goal:Manage Orthopedic Condition Completed patient and caregiver instructed on orthopedic precautions and weight bearing restrictions. Instruct on management of edema Problem:PT Orthopedic Condition Goal:Manage Orthopedic Condition Completed Instruct patient on management of edema including elevation of RLE above the level of the heart and ice. Physical therapy to perform surgical incision/wound management Description: Removal of post-op dressing on POD 7 - 07/14/22. If no drainage is present, leave open to air; if drainage is present, cover with clean dressing and contact provider. Problem:PT Orthopedic Condition Goal:Manage Orthopedic Condition Completed Intervention completed this date. No concerns. Picture uploaded to chart Instruct on self-management of post surgical and/or non-surgical orthopedic intervention Problem:PT Orthopedic Condition Goal:Manage Orthopedic Condition Completed patient and caregiver instructed on incision care: no lotions.creams or rubbing, signs and symptoms of infection, signs and symptoms of DVT/PE, instructed on when to call provider and instructed on when to call 911. Instruct and educate on knowledge deficits Problem:PT Learning Assessment Goal:Demonstrate understanding of education Completed patient verbalize and/or demonstrate understanding of physical therapy education including weight bearing precautions, surgical precautions, pain management and home exercise program. Education methods include: verbal cues. Further education required to improve knowledge and compliance with home exercise program. Medication Education Description: Evaluate/instruct patient/caregiver on obtaining, storing, identifying and administering ordered medications as well as keeping accurate medication list in the home and adhereing to medication schedule Problem:Medication Education Goal:Patient/caregive r will demonstrate ability to obtain, store, identify and administer ordered medications, keep accurate medication list in home, and adhere to medication schedule Completed Patient and Caregiver instructed on importance of keeping accurate medication list in home, adhering to medication schedule and how to order refills. SPO2 Description: Notify Dr. Patricia if pulse ox is <92% at rest. Problem:Physician Specific Parameters Goal:Patient to maintain parameters within physician-specified ranges throughout certification period Completed Instruct on individual fall risk factors and strategies to prevent falls and injuries caused by falls. Problem:Risk for Falls Goal:Manage Risk for falls Completed PT: Patient instructed on Managing Impaired Functional Mobility: Use assistive device(s): front wheeled walker Instruct on pain and instruct on strategies to control pain Problem:Pain Goal:Manage Pain Completed patient instructed on techniques to control pain including Pharmacological measures and Non-Pharmacological measures; positioning/elevation and use of thermal modalities, apply ice to affected area for the following prescribed frequency: prn. Opioids- educated on high risk medication Problem:High Risk Medications Goal:Patient/caregive r will teach back high risk medication side effect and precaution education Completed patient educated on taking medication(s) as prescribed by provider. Do not stop medication or alter doses without speaking with your provider. Discuss medication effectiveness or side effect concerns with your provider and home care team. Only take opioids as prescribed, do not share your medications, and take proper precautions in storing and properly disposing of opioids once no longer needed. Possible side effects of opioid medication including sedation, decreased rate of breathing, and constipation. Report over sedation to prescribing provider and practice deep breathing techniques every hour while awake. Prevent constipation by increasing water and fiber intake, increasing activity as tolerated, and use stool softener(s) as prescribed. Antiplatelet- educated on high risk medication Problem:High Risk Medications Goal:Patient/caregive r will teach back high risk medication side effect and precaution education Completed patient and caregiver educated on taking medication(s) as prescribed by provider. Do not stop medication or alter doses without speaking with your provider. Discuss medication effectiveness or side effect concerns with your provider and home care team. Discuss all medications you are taking, even [id number] medicines, with your provider and pharmacist since many drugs can interact with antiplatelet medications. If you forget to take a dose, DO NOT take a double dose. Take the missed dose as soon as possible on the same day. DO NOT take a double dose the next day to make up for the missed dose. Watch for signs of abnormal or excessive bleeding and bruising (refer to Bleeding Precautions education). Call your health care provider right away if you suspect something is wrong. Instruct on ongoing discharge plan Problem:Discharge Goal:Manage discharge planning Completed Ongoing Discharge plan: Discharge plan discussed with patient including frequency and duration for home PT and plan for transition to: live independently at home without ongoing services. 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 ROUTINE Discipline -Physical Therapy Problems Problem Description Start Date Status Goals Interve ntions PT Impaired muscle performance and/or ROM Disciplines: PT 07/11/2022 Active 1 goal linked to scheduled/document ed intervention 1 goal intervention scheduled/document ed in this visit PT Impaired mobility Disciplines: PT 07/11/2022 Active 1 goal linked to scheduled/document ed intervention 1 goal intervention scheduled/document ed in this visit PT Impaired gait Disciplines: PT 07/11/2022 Active 1 goal linked to scheduled/document ed intervention 1 goal intervention scheduled/document ed in this visit PT Impaired balance Disciplines: PT 07/11/2022 Active 1 goal linked to scheduled/document ed intervention 1 goal intervention scheduled/document ed in this visit PT Orthopedic Condition Disciplines: PT 07/11/2022 Active 1 goal linked to scheduled/document ed intervention 3 goal interventions scheduled/document ed in this visit PT Learning Assessment Disciplines: PT 07/11/2022 Active 1 goal linked to scheduled/document ed intervention 1 goal intervention scheduled/document ed in this visit Medication Education Disciplines: Skilled Services 07/11/2022 Active 1 goal linked to scheduled/document ed intervention 1 goal intervention scheduled/document ed in this visit Physician Specific Parameters Disciplines: Skilled Services 07/11/2022 Active 1 goal linked to scheduled/document ed intervention 1 goal intervention scheduled/document ed in this visit Risk for Falls Disciplines: Skilled Services 07/11/2022 Active 1 goal linked to scheduled/document ed intervention 1 goal intervention scheduled/document ed in this visit Pain Disciplines: Skilled Services 07/11/2022 Active 1 goal linked to scheduled/document ed intervention 1 goal intervention scheduled/document ed in this visit Discharge Disciplines: Skilled Services 07/11/2022 Active 1 goal linked to scheduled/document ed intervention 1 goal intervention scheduled/document ed in this visit Goals Goal Associated Problem Outcome Goal Met? Visit Notes Improved Muscle Performance and/or ROM Description: LTG: Patient will demonstrate improved muscle performance to meet functional goals as evidenced by ability to tolerate 10 minutes of stadning activity, to be achieved by 08/02/22 . STG: Patient and/or caregiver will verbalize/demonstrate independence with home exercise program, to improve functional mobility, to be achieved by 07/19/22. PT Impaired muscle performance and/or ROM No Improved Transfers Description: LTG: Patient will demonstrate safe transfers to/from bed, chair, toilet, couch, shower/tub and car independently with AD, to be achieved by 08/02/22 . PT Impaired mobility No Improved Gait Description: STG: Patient will demonstrate improved gait ability as evidenced by ambulation 150 feet with front wheeled walker independently with AD, in order to Manuever throughout home , to be achieved by 07/22/22. LTG: Patient will demonstrate improved gait ability as evidenced by ambulation 150 feet with single point cane independently with AD, to return to safe household and community ambulation, , to be achieved by 08/02/22 . PT Impaired gait No Improved Balance Description: LTG: Patient will demonstrate improved standing balance to meet functional goals as evidenced by TUG score of <25 to be achieved by 08/02/22. PT Impaired balance No Manage Orthopedic Condition Description: Improve patient and/or caregiver understanding of post surgical and/or non-surgical orthopedic intervention management as evidenced by patient and/or caregiver able to verbalize, demonstrate, and teach back instruction, to be achieved by 09/08/22. . PT Orthopedic Condition No Demonstrate understanding of education Description: Patient and/or caregiver will understand educational instruction to be achieved by 08/02/22 . PT Learning Assessment No Patient/caregiver will demonstrate ability to obtain, store, identify and administer ordered medications, keep accurate medication list in home, and adhere to medication schedule Description: Patient/caregiver will demonstrate ability to obtain, store, identify and administer ordered medications, keep accurate medication list in home, and adhere to medication schedule by 09/08/22. . Medication Education No Patient to maintain parameters within physician-specified ranges throughout certification period Physician Specific Parameters No Manage Risk for falls Description: Patient/caregiver will verbalize knowledge of individualized fall prevention strategies by 09/08/22. . Risk for Falls No Manage Pain Description: Patient/caregiver will verbalize knowledge and understanding of appropriate techniques to control pain, including pain medication and non-pharmacological techniques. Patient will verbalize or demonstrate an acceptable level of pain as evidenced by a pain score of <5/10 and improvement in ability to perform activities of daily living to be achieved by 09/08/22. . Pain No Manage discharge planning Description: Patient/caregiver will verbalize understanding of ongoing discharge plan provided related to disease management, arrangements for outpatient and/or community services, obtaining medications, supplies, and DME, as needed throughout certification period. Discharge No Interventions Intervention Associated Problem/Goal Status Variance Visit Notes Physical Therapy Therapeutic Exercises Problem:PT Impaired muscle performance and/or ROM Goal:Improved Muscle Performance and/or ROM Completed patient instructed on strengthening exercises including ankle pumps quad and glut sets, hip abd and add, saq and heel slides x's 10 each standing RLE hamstring curls x's 10 with verbal and visual cues for correct form and pace. patient instructed to perform home exercise program twice a day which included above exercises. Physical Therapy Transfer Training Problem:PT Impaired mobility Goal:Improved Transfers Completed Transfer training and instruction to patient on safe transfers to and from bed and couch with supervision and verbal cues for safety. Physical Therapy Gait Training Problem:PT Impaired gait Goal:Improved Gait Completed Gait training and instruction to patient on safe ambulation with front wheeled walker for 3x's 25 feet with supervision, with verbal cues for corrections of gait deviations including PWB. Physical Therapy Balance Training Problem:PT Impaired balance Goal:Improved Balance Completed Developed, implemented, and instructed patient on standing balance exercises including standing exercises. Instruct on orthopedic precautions and weight bearing restrictions Description: Orthopedic precautions including right posterior hip: no hip flexion > 90 degrees, no adduction and no ir/er rotation of involved extermity. Weight bearing restrictions include: 50% PWB of involved extremity. Problem:PT Orthopedic Condition Goal:Manage Orthopedic Condition Completed patient instructed on orthopedic precautions and weight bearing restrictions. Instruct on management of edema Problem:PT Orthopedic Condition Goal:Manage Orthopedic Condition Completed Instruct patient on management of edema including elevation of RLE above the level of the heart and ice. Instruct on self-management of post surgical and/or non-surgical orthopedic intervention Problem:PT Orthopedic Condition Goal:Manage Orthopedic Condition Completed patient instructed on signs and symptoms of infection, signs and symptoms of DVT/PE, instructed on when to call provider and instructed on when to call 911. Instruct and educate on knowledge deficits Problem:PT Learning Assessment Goal:Demonstrate understanding of education Completed patient verbalize and/or demonstrate understanding of physical therapy education including orthopedic condition management, weight bearing precautions, surgical precautions, pain management and home exercise program. Education methods include: verbal cues. Further education required to improve knowledge and compliance with home exercise program. Medication Education Description: Evaluate/instruct patient/caregiver on obtaining, storing, identifying and administering ordered medications as well as keeping accurate medication list in the home and adhereing to medication schedule Problem:Medication Education Goal:Patient/caregive r will demonstrate ability to obtain, store, identify and administer ordered medications, keep accurate medication list in home, and adhere to medication schedule Completed Patient instructed on importance of keeping accurate medication list in home, adhering to medication schedule and how to order refills. SPO2 Description: Notify Dr. Patricia if pulse ox is <92% at rest. Problem:Physician Specific Parameters Goal:Patient to maintain parameters within physician-specified ranges throughout certification period Completed Instruct on individual fall risk factors and strategies to prevent falls and injuries caused by falls. Problem:Risk for Falls Goal:Manage Risk for falls Completed PT: Patient instructed on Managing Impaired Functional Mobility: Use assistive device(s): front wheeled walker Instruct on pain and instruct on strategies to control pain Problem:Pain Goal:Manage Pain Completed patient instructed on techniques to control pain including Pharmacological measures and Non-Pharmacological measures; positioning/elevation and use of thermal modalities, apply ice to affected area for the following prescribed frequency: prn. Instruct on ongoing discharge plan Problem:Discharge Goal:Manage discharge planning Completed Ongoing Discharge plan: Discharge plan discussed with patient including frequency and duration for home PT and plan for transition to: live independently at home without ongoing services. [facility] Visit Details Visit Type -BI[facility]T[employer] CONSULTANT ROUTINE Discipline -Physical Therapy Problems Problem Description Start Date Status Goals Interve ntions PT Impaired muscle performance and/or ROM Disciplines: PT 07/11/2022 Active 1 goal linked to scheduled/document ed intervention 1 goal intervention scheduled/document ed in this visit PT Impaired gait Disciplines: PT 07/11/2022 Active 1 goal linked to scheduled/document ed intervention 1 goal intervention scheduled/document ed in this visit PT Impaired balance Disciplines: PT 07/11/2022 Active 1 goal linked to scheduled/document ed intervention 1 goal intervention scheduled/document ed in this visit PT Orthopedic Condition Disciplines: PT 07/11/2022 Active 1 goal linked to scheduled/document ed intervention 3 goal interventions scheduled/document ed in this visit PT Learning Assessment Disciplines: PT 07/11/2022 Active 1 goal linked to scheduled/document ed intervention 1 goal intervention scheduled/document ed in this visit Physician Specific Parameters Disciplines: Skilled Services 07/11/2022 Active 1 goal linked to scheduled/document ed intervention 1 goal intervention scheduled/document ed in this visit Risk for Falls Disciplines: Skilled Services 07/11/2022 Active 1 goal linked to scheduled/document ed intervention 1 goal intervention scheduled/document ed in this visit Pain Disciplines: Skilled Services 07/11/2022 Active 1 goal linked to scheduled/document ed intervention 1 goal intervention scheduled/document ed in this visit High Risk Medications Disciplines: Skilled Services 07/11/2022 Active 1 goal linked to scheduled/document ed intervention 2 goal interventions scheduled/document ed in this visit Discharge Disciplines: Skilled Services 07/11/2022 Active 1 goal linked to scheduled/document ed intervention 1 goal intervention scheduled/document ed in this visit Goals Goal Associated Problem Outcome Goal Met? Visit Notes Improved Muscle Performance and/or ROM Description: LTG: Patient will demonstrate improved muscle performance to meet functional goals as evidenced by ability to tolerate 10 minutes of stadning activity, to be achieved by 08/02/22 . STG: Patient and/or caregiver will verbalize/demonstrate independence with home exercise program, to improve functional mobility, to be achieved by 07/19/22. PT Impaired muscle performance and/or ROM No Improved Gait Description: STG: Patient will demonstrate improved gait ability as evidenced by ambulation 150 feet with front wheeled walker independently with AD, in order to Manuever throughout home , to be achieved by 07/22/22. LTG: Patient will demonstrate improved gait ability as evidenced by ambulation 150 feet with single point cane independently with AD, to return to safe household and community ambulation, , to be achieved by 08/02/22 . PT Impaired gait No Improved Balance Description: LTG: Patient will demonstrate improved standing balance to meet functional goals as evidenced by TUG score of <25 to be achieved by 08/02/22. PT Impaired balance No Manage Orthopedic Condition Description: Improve patient and/or caregiver understanding of post surgical and/or non-surgical orthopedic intervention management as evidenced by patient and/or caregiver able to verbalize, demonstrate, and teach back instruction, to be achieved by 09/08/22. . PT Orthopedic Condition No Demonstrate understanding of education Description: Patient and/or caregiver will understand educational instruction to be achieved by 08/02/22 . PT Learning Assessment No Patient to maintain parameters within physician-specified ranges throughout certification period Physician Specific Parameters No Manage Risk for falls Description: Patient/caregiver will verbalize knowledge of individualized fall prevention strategies by 09/08/22. . Risk for Falls No Manage Pain Description: Patient/caregiver will verbalize knowledge and understanding of appropriate techniques to control pain, including pain medication and non-pharmacological techniques. Patient will verbalize or demonstrate an acceptable level of pain as evidenced by a pain score of <5/10 and improvement in ability to perform activities of daily living to be achieved by 09/08/22. . Pain No Patient/caregiver will teach back high risk medication side effect and precaution education High Risk Medications No Manage discharge planning Description: Patient/caregiver will verbalize understanding of ongoing discharge plan provided related to disease management, arrangements for outpatient and/or community services, obtaining medications, supplies, and DME, as needed throughout certification period. Discharge No Interventions Intervention Associated Problem/Goal Status Variance Visit Notes Physical Therapy Therapeutic Exercises Problem:PT Impaired muscle performance and/or ROM Goal:Improved Muscle Performance and/or ROM Completed patient instructed on strengthening exercises including supine ankle pumps, quad and glut sets, hip abd and adduction, saq and heel slides x's 12 each. standing RLE hip abd and hamstring curls x's 10 each with verbal and written cues for correct form. patient instructed to perform home exercise program twice a day which included above exercises. Physical Therapy Gait Training Problem:PT Impaired gait Goal:Improved Gait Completed Gait training and instruction to patient on safe ambulation with front wheeled walker for 2x's 25 feet with supervision, with verbal cues for corrections of gait deviations including PWB. Physical Therapy Balance Training Problem:PT Impaired balance Goal:Improved Balance Completed Developed, implemented, and instructed patient on standing balance exercises including standing exercises. Instruct on orthopedic precautions and weight bearing restrictions Description: Orthopedic precautions including right posterior hip: no hip flexion > 90 degrees, no adduction and no ir/er rotation of involved extermity. Weight bearing restrictions include: 50% PWB of involved extremity. Problem:PT Orthopedic Condition Goal:Manage Orthopedic Condition Completed patient instructed on orthopedic precautions and weight bearing restrictions. Instruct on management of edema Problem:PT Orthopedic Condition Goal:Manage Orthopedic Condition Completed Instruct patient on management of edema including elevation of RLE above the level of the heart and ice. Instruct on self-management of post surgical and/or non-surgical orthopedic intervention Problem:PT Orthopedic Condition Goal:Manage Orthopedic Condition Completed patient instructed on signs and symptoms of infection, signs and symptoms of DVT/PE, instructed on when to call provider and instructed on when to call 911. Instruct and educate on knowledge deficits Problem:PT Learning Assessment Goal:Demonstrate understanding of education Completed patient verbalize and/or demonstrate understanding of physical therapy education including weight bearing precautions, surgical precautions, pain management and home exercise program. Education methods include: verbal cues. Further education required to improve knowledge and compliance with home exercise program. SPO2 Description: Notify Dr. Patricia if pulse ox is <92% at rest. Problem:Physician Specific Parameters Goal:Patient to maintain parameters within physician-specified ranges throughout certification period Completed Instruct on individual fall risk factors and strategies to prevent falls and injuries caused by falls. Problem:Risk for Falls Goal:Manage Risk for falls Completed PT: Patient instructed on Managing Impaired Functional Mobility: Use assistive device(s): front wheeled walker Instruct on pain and instruct on strategies to control pain Problem:Pain Goal:Manage Pain Completed patient instructed on techniques to control pain including Pharmacological measures and Non-Pharmacological measures; positioning/elevation and use of thermal modalities, apply ice to affected area for the following prescribed frequency: prn. Opioids- educated on high risk medication Problem:High Risk Medications Goal:Patient/caregive r will teach back high risk medication side effect and precaution education Completed patient educated on taking medication(s) as prescribed by provider. Do not stop medication or alter doses without speaking with your provider. Discuss medication effectiveness or side effect concerns with your provider and home care team. Only take opioids as prescribed, do not share your medications, and take proper precautions in storing and properly disposing of opioids once no longer needed. Possible side effects of opioid medication including sedation, decreased rate of breathing, and constipation. Report over sedation to prescribing provider and practice deep breathing techniques every hour while awake. Prevent constipation by increasing water and fiber intake, increasing activity as tolerated, and use stool softener(s) as prescribed. Antibiotic- educated on high risk medication Problem:High Risk Medications Goal:Patient/caregive r will teach back high risk medication side effect and precaution education Completed patient educated on taking medication(s) as prescribed by provider. Do not stop medication or alter doses without speaking with your provider. Discuss medication effectiveness or side effect concerns with your provider and home care team. Take the full dispensed amount even if you start feeling better, as bacteria can become resistant to antibiotic treatment if you do not finish your prescription. Common side effects are upset stomach and diarrhea. Take your antibiotics with food unless otherwise indicated to help with indigestion. Taking an [id number] probiotic or eating yogurt with live and active cultures three times a day can help prevent antibiotic-associated diarrhea. Call your provider immediately if you develop rashes or hives as this could be a delayed allergic reaction. Seek emergency treatment if you develop severe allergic reaction symptoms such as mouth or tongue swelling. Instruct on ongoing discharge plan Problem:Discharge Goal:Manage discharge planning Completed Ongoing Discharge plan: Discharge plan discussed with patient including frequency and duration for home PT and plan for transition to: live independently at home without ongoing services. 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 ROUTINE Discipline -Physical Therapy Problems Problem Description Start Date Status Goals Interve ntions PT Impaired muscle performance and/or ROM Disciplines: PT 07/11/2022 Active 1 goal linked to scheduled/document ed intervention 1 goal intervention scheduled/document ed in this visit PT Impaired mobility Disciplines: PT 07/11/2022 Active 1 goal linked to scheduled/document ed intervention 1 goal intervention scheduled/document ed in this visit PT Impaired gait Disciplines: PT 07/11/2022 Active 2 goals linked to scheduled/document ed interventions 2 goal interventions scheduled/document ed in this visit PT Impaired balance Disciplines: PT 07/11/2022 Active 1 goal linked to scheduled/document ed intervention 1 goal intervention scheduled/document ed in this visit PT Orthopedic Condition Disciplines: PT 07/11/2022 Active 1 goal linked to scheduled/document ed intervention 3 goal interventions scheduled/document ed in this visit PT Learning Assessment Disciplines: PT 07/11/2022 Active 1 goal linked to scheduled/document ed intervention 1 goal intervention scheduled/document ed in this visit Medication Education Disciplines: Skilled Services 07/11/2022 Active 1 goal linked to scheduled/document ed intervention 1 goal intervention scheduled/document ed in this visit Physician Specific Parameters Disciplines: Skilled Services 07/11/2022 Active 1 goal linked to scheduled/document ed intervention 1 goal intervention scheduled/document ed in this visit Risk for Falls Disciplines: Skilled Services 07/11/2022 Active 1 goal linked to scheduled/document ed intervention 1 goal intervention scheduled/document ed in this visit Pain Disciplines: Skilled Services 07/11/2022 Active 1 goal linked to scheduled/document ed intervention 1 goal intervention scheduled/document ed in this visit Discharge Disciplines: Skilled Services 07/11/2022 Active 1 goal linked to scheduled/document ed intervention 1 goal intervention scheduled/document ed in this visit Sepsis Disciplines: Skilled Services 07/11/2022 Active 1 goal linked to scheduled/document ed intervention 1 goal intervention scheduled/document ed in this visit Goals Goal Associated Problem Outcome Goal Met? Visit Notes Improved Muscle Performance and/or ROM Description: LTG: Patient will demonstrate improved muscle performance to meet functional goals as evidenced by ability to tolerate 10 minutes of stadning activity, to be achieved by 08/02/22 . STG: Patient and/or caregiver will verbalize/demonstrate independence with home exercise program, to improve functional mobility, to be achieved by 07/19/22. PT Impaired muscle performance and/or ROM No Improved Bed Mobility Description: STG: Patient will demonstrate improved bed mobility, ability to position self and supine <> sit independently to be achieved by 07/26/22. PT Impaired mobility No Improved Stair Climbing Description: LTG: Patient will demonstrate improved stair negotiation as evidenced by ascend/descend 12 steps to basementwith railing and with cane independently, to safely access all areas of the home, to be achieved by 08/02/22 . PT Impaired gait No Improved Gait Description: STG: Patient will demonstrate improved gait ability as evidenced by ambulation 150 feet with front wheeled walker independently with AD, in order to Manuever throughout home , to be achieved by 07/22/22. LTG: Patient will demonstrate improved gait ability as evidenced by ambulation 150 feet with single point cane independently with AD, to return to safe household and community ambulation, , to be achieved by 08/02/22 . PT Impaired gait No Improved Balance Description: LTG: Patient will demonstrate improved standing balance to meet functional goals as evidenced by TUG score of <25 to be achieved by 08/02/22. PT Impaired balance No Manage Orthopedic Condition Description: Improve patient and/or caregiver understanding of post surgical and/or non-surgical orthopedic intervention management as evidenced by patient and/or caregiver able to verbalize, demonstrate, and teach back instruction, to be achieved by 09/08/22. . PT Orthopedic Condition No Demonstrate understanding of education Description: Patient and/or caregiver will understand educational instruction to be achieved by 08/02/22 . PT Learning Assessment No Patient/caregiver will demonstrate ability to obtain, store, identify and administer ordered medications, keep accurate medication list in home, and adhere to medication schedule Description: Patient/caregiver will demonstrate ability to obtain, store, identify and administer ordered medications, keep accurate medication list in home, and adhere to medication schedule by 09/08/22. . Medication Education No Patient to maintain parameters within physician-specified ranges throughout certification period Physician Specific Parameters No Manage Risk for falls Description: Patient/caregiver will verbalize knowledge of individualized fall prevention strategies by 09/08/22. . Risk for Falls No Manage Pain Description: Patient/caregiver will verbalize knowledge and understanding of appropriate techniques to control pain, including pain medication and non-pharmacological techniques. Patient will verbalize or demonstrate an acceptable level of pain as evidenced by a pain score of <5/10 and improvement in ability to perform activities of daily living to be achieved by 09/08/22. . Pain No Manage discharge planning Description: Patient/caregiver will verbalize understanding of ongoing discharge plan provided related to disease management, arrangements for outpatient and/or community services, obtaining medications, supplies, and DME, as needed throughout certification period. Discharge No Patient/caregiver will be able to identify and report symptoms of sepsis Description: Patient/caregiver will be able to identify signs/symptoms of sepsis infection and will verbalize actions to take if suspected by 09/08/22. Sepsis No Interventions Intervention Associated Problem/Goal Status Variance Visit Notes Physical Therapy Therapeutic Exercises Problem:PT Impaired muscle performance and/or ROM Goal:Improved Muscle Performance and/or ROM Completed patient instructed on strengthening exercises including ann standing heel raises, hip abd and flexion, hamstring curls and mini squats x's 10 each with verbal, visual and written cues for correct form and pace. patient instructed to perform home exercise program twice a day which included above exercises. Physical Therapy Bed Mobility Training Problem:PT Impaired mobility Goal:Improved Bed Mobility Completed Bed mobility training and instruction to patient, including supine<>sit with independent Physical Therapy Stair Training Problem:PT Impaired gait Goal:Improved Stair Climbing Completed Stair training and instruction to patient on safe stair climbing, ascend/descend 13 steps, with railing and with cane with stand by assist and verbal cues for correct step pattern and cane placement. Physical Therapy Gait Training Problem:PT Impaired gait Goal:Improved Gait Completed Gait training and instruction to patient on safe ambulation with single point cane for 2x's 30 feet with supervision and stand by assist, with verbal cues for corrections of gait deviations including correct sequencing. Physical Therapy Balance Training Problem:PT Impaired balance Goal:Improved Balance Completed Developed, implemented, and instructed patient on standing balance exercises including ann standing exercises and cane training. Instruct on orthopedic precautions and weight bearing restrictions Description: Orthopedic precautions including right posterior hip: no hip flexion > 90 degrees, no adduction and no ir/er rotation of involved extermity. Weight bearing restrictions include: 50% PWB of involved extremity. Problem:PT Orthopedic Condition Goal:Manage Orthopedic Condition Completed patient instructed on orthopedic precautions and weight bearing restrictions. Instruct on management of edema Problem:PT Orthopedic Condition Goal:Manage Orthopedic Condition Completed Instruct patient on management of edema including ice. Instruct on self-management of post surgical and/or non-surgical orthopedic intervention Problem:PT Orthopedic Condition Goal:Manage Orthopedic Condition Completed patient instructed on signs and symptoms of infection, signs and symptoms of DVT/PE, instructed on when to call provider and instructed on when to call 911. Instruct and educate on knowledge deficits Problem:PT Learning Assessment Goal:Demonstrate understanding of education Completed patient verbalize and/or demonstrate understanding of physical therapy education including weight bearing precautions, surgical precautions and home exercise program. Education methods include: verbal cues. Further education required to improve knowledge and compliance with home exercise program. Medication Education Description: Evaluate/instruct patient/caregiver on obtaining, storing, identifying and administering ordered medications as well as keeping accurate medication list in the home and adhereing to medication schedule Problem:Medication Education Goal:Patient/caregive r will demonstrate ability to obtain, store, identify and administer ordered medications, keep accurate medication list in home, and adhere to medication schedule Completed Patient instructed on importance of keeping accurate medication list in home. SPO2 Description: Notify Dr. Patricia if pulse ox is <92% at rest. Problem:Physician Specific Parameters Goal:Patient to maintain parameters within physician-specified ranges throughout certification period Completed Instruct on individual fall risk factors and strategies to prevent falls and injuries caused by falls. Problem:Risk for Falls Goal:Manage Risk for falls Completed PT: Patient instructed on Managing Impaired Functional Mobility: Use assistive device(s): front wheeled walker and single point cane Instruct on pain and instruct on strategies to control pain Problem:Pain Goal:Manage Pain Completed patient instructed on techniques to control pain including Pharmacological measures and Non-Pharmacological measures; positioning/elevation and use of thermal modalities, apply ice to affected area for the following prescribed frequency: prn. Instruct on ongoing discharge plan Problem:Discharge Goal:Manage discharge planning Completed Ongoing Discharge plan: Discharge plan discussed with patient including frequency and duration for home PT and plan for transition to: live independently at home without ongoing services. Risk of Sepsis Description: Patient is at risk for sepsis. Monitor closely for s/s of sepsis. Problem:Sepsis Goal:Patient/caregive r will be able to identify and report symptoms of sepsis [facility] Visit Details Visit Type -[facility] ROUTINE Discipline -Physical Therapy Problems Problem Description Start Date Status Goals Interve ntions PT Impaired muscle performance and/or ROM Disciplines: PT 07/11/2022 Active 1 goal linked to scheduled/document ed intervention 1 goal intervention scheduled/document ed in this visit PT Impaired gait Disciplines: PT 07/11/2022 Active 2 goals linked to scheduled/document ed interventions 2 goal interventions scheduled/document ed in this visit PT Impaired balance Disciplines: PT 07/11/2022 Active 1 goal linked to scheduled/document ed intervention 1 goal intervention scheduled/document ed in this visit PT Orthopedic Condition Disciplines: PT 07/11/2022 Active 1 goal linked to scheduled/document ed intervention 2 goal interventions scheduled/document ed in this visit Medication Education Disciplines: Skilled Services 07/11/2022 Active 1 goal linked to scheduled/document ed intervention 1 goal intervention scheduled/document ed in this visit Physician Specific Parameters Disciplines: Skilled Services 07/11/2022 Active 1 goal linked to scheduled/document ed intervention 1 goal intervention scheduled/document ed in this visit Risk for Falls Disciplines: Skilled Services 07/11/2022 Active 1 goal linked to scheduled/document ed intervention 1 goal intervention scheduled/document ed in this visit Pain Disciplines: Skilled Services 07/11/2022 Active 1 goal linked to scheduled/document ed intervention 1 goal intervention scheduled/document ed in this visit Discharge Disciplines: Skilled Services 07/11/2022 Active 1 goal linked to scheduled/document ed intervention 2 goal interventions scheduled/document ed in this visit Sepsis Disciplines: Skilled Services 07/11/2022 Active 1 goal linked to scheduled/document ed intervention 1 goal intervention scheduled/document ed in this visit Goals Goal Associated Problem Outcome Goal Met? Visit Notes Improved Muscle Performance and/or ROM Description: LTG: Patient will demonstrate improved muscle performance to meet functional goals as evidenced by ability to tolerate 10 minutes of stadning activity, to be achieved by 08/02/22 . STG: Patient and/or caregiver will verbalize/demonstrate independence with home exercise program, to improve functional mobility, to be achieved by 07/19/22. PT Impaired muscle performance and/or ROM No Improved Stair Climbing Description: LTG: Patient will demonstrate improved stair negotiation as evidenced by ascend/descend 12 steps to basementwith railing and with cane independently, to safely access all areas of the home, to be achieved by 08/02/22 . PT Impaired gait No Improved Gait Description: STG: Patient will demonstrate improved gait ability as evidenced by ambulation 150 feet with front wheeled walker independently with AD, in order to Manuever throughout home , to be achieved by 07/22/22. LTG: Patient will demonstrate improved gait ability as evidenced by ambulation 150 feet with single point cane independently with AD, to return to safe household and community ambulation, , to be achieved by 08/02/22 . PT Impaired gait No Improved Balance Description: LTG: Patient will demonstrate improved standing balance to meet functional goals as evidenced by TUG score of <25 to be achieved by 08/02/22. PT Impaired balance No Manage Orthopedic Condition Description: Improve patient and/or caregiver understanding of post surgical and/or non-surgical orthopedic intervention management as evidenced by patient and/or caregiver able to verbalize, demonstrate, and teach back instruction, to be achieved by 09/08/22. . PT Orthopedic Condition No Patient/caregiver will demonstrate ability to obtain, store, identify and administer ordered medications, keep accurate medication list in home, and adhere to medication schedule Description: Patient/caregiver will demonstrate ability to obtain, store, identify and administer ordered medications, keep accurate medication list in home, and adhere to medication schedule by 09/08/22. . Medication Education No Patient to maintain parameters within physician-specified ranges throughout certification period Physician Specific Parameters No Manage Risk for falls Description: Patient/caregiver will verbalize knowledge of individualized fall prevention strategies by 09/08/22. . Risk for Falls No Manage Pain Description: Patient/caregiver will verbalize knowledge and understanding of appropriate techniques to control pain, including pain medication and non-pharmacological techniques. Patient will verbalize or demonstrate an acceptable level of pain as evidenced by a pain score of <5/10 and improvement in ability to perform activities of daily living to be achieved by 09/08/22. . Pain No Manage discharge planning Description: Patient/caregiver will verbalize understanding of ongoing discharge plan provided related to disease management, arrangements for outpatient and/or community services, obtaining medications, supplies, and DME, as needed throughout certification period. Discharge No Patient/caregiver will be able to identify and report symptoms of sepsis Description: Patient/caregiver will be able to identify signs/symptoms of sepsis infection and will verbalize actions to take if suspected by 09/08/22. Sepsis No Interventions Intervention Associated Problem/Goal Status Variance Visit Notes Physical Therapy Therapeutic Exercises Problem:PT Impaired muscle performance and/or ROM Goal:Improved Muscle Performance and/or ROM Completed patient instructed on strengthening exercises including ann standing heel raises, hip abd and flexion, hamstring curl s and mini sits x's 15 each. with verbal cues for slower pace. patient instructed to perform home exercise program twice a day which included above exercises. Physical Therapy Stair Training Problem:PT Impaired gait Goal:Improved Stair Climbing Completed Stair training and instruction to patient on safe stair climbing, ascend/descend 1 curb without railing and with cane with supervision and verbal cues for safety. Physical Therapy Gait Training Problem:PT Impaired gait Goal:Improved Gait Completed Gait training and instruction to patient on safe ambulation with single point cane for x's 100 feet with supervision, with verbal cues for corrections of gait deviations including safety outdoors. Physical Therapy Balance Training Problem:PT Impaired balance Goal:Improved Balance Completed Developed, implemented, and instructed patient on standing balance exercises including ann standing exercises and outdoor cane ambulation. Instruct on orthopedic precautions and weight bearing restrictions Description: Orthopedic precautions including right posterior hip: no hip flexion > 90 degrees, no adduction and no ir/er rotation of involved extermity. Weight bearing restrictions include: 50% PWB of involved extremity. Problem:PT Orthopedic Condition Goal:Manage Orthopedic Condition Completed patient instructed on orthopedic precautions. Instruct on management of edema Problem:PT Orthopedic Condition Goal:Manage Orthopedic Condition Completed Instruct patient on management of edema including elevation of RLE above the level of the heart and ice. Medication Education Description: Evaluate/instruct patient/caregiver on obtaining, storing, identifying and administering ordered medications as well as keeping accurate medication list in the home and adhereing to medication schedule Problem:Medication Education Goal:Patient/caregive r will demonstrate ability to obtain, store, identify and administer ordered medications, keep accurate medication list in home, and adhere to medication schedule Completed Patient instructed on importance of keeping accurate medication list in home and adhering to medication schedule. SPO2 Description: Notify Dr. Patricia if pulse ox is <92% at rest. Problem:Physician Specific Parameters Goal:Patient to maintain parameters within physician-specified ranges throughout certification period Completed Instruct on individual fall risk factors and strategies to prevent falls and injuries caused by falls. Problem:Risk for Falls Goal:Manage Risk for falls Completed PT: Patient instructed on Managing Impaired Functional Mobility: Use assistive device(s): single point cane Instruct on pain and instruct on strategies to control pain Problem:Pain Goal:Manage Pain Completed patient instructed on techniques to control pain including Pharmacological measures and Non-Pharmacological measures; positioning/elevation and use of thermal modalities, apply ice to affected area for the following prescribed frequency: prn. Deliver [facility] Problem:Discharge Goal:Manage discharge planning Completed Delivered [facility] on 07/28/22 for discharge date of 07/31/22. Patient denies questions/concerns with form. Instruct on ongoing discharge plan Problem:Discharge Goal:Manage discharge planning Completed Ongoing Discharge plan: Discharge plan discussed with patient including frequency and duration for home PT and plan for transition to: live independently at home without ongoing services. Risk of Sepsis Description: Patient is at risk for sepsis. Monitor closely for s/s of sepsis. Problem:Sepsis Goal:Patient/caregive r will be able to identify and report symptoms of sepsis [facility] Visit Details Visit Type -PT AGENCY DC W V ISIT Discipline -Physical Therapy Problems Problem Description Start Date Status Goals Interve ntions PT Impaired muscle performance and/or ROM Disciplines: PT 07/11/2022 Resolved on 07/31/2022 1 goal linked to scheduled/document ed intervention 1 goal intervention scheduled/document ed in this visit PT Impaired mobility Disciplines: PT 07/11/2022 Resolved on 07/31/2022 2 goals linked to scheduled/document ed interventions 2 goal interventions scheduled/document ed in this visit PT Impaired gait Disciplines: PT 07/11/2022 Resolved on 07/31/2022 2 goals linked to scheduled/document ed interventions 2 goal interventions scheduled/document ed in this visit PT Impaired balance Disciplines: PT 07/11/2022 Resolved on 07/31/2022 1 goal linked to scheduled/document ed intervention 1 goal intervention scheduled/document ed in this visit PT Orthopedic Condition Disciplines: PT 07/11/2022 Resolved on 07/31/2022 1 goal linked to scheduled/document ed intervention 3 goal interventions scheduled/document ed in this visit PT Learning Assessment Disciplines: PT 07/11/2022 Resolved on 07/31/2022 1 goal linked to scheduled/document ed intervention 1 goal intervention scheduled/document ed in this visit Medication Education Disciplines: Skilled Services 07/11/2022 Resolved on 07/31/2022 1 goal linked to scheduled/document ed intervention Physician Specific Parameters Disciplines: Skilled Services 07/11/2022 Resolved on 07/31/2022 1 goal linked to scheduled/document ed intervention 1 goal intervention scheduled/document ed in this visit Risk for Falls Disciplines: Skilled Services 07/11/2022 Resolved on 07/31/2022 1 goal linked to scheduled/document ed intervention 1 goal intervention scheduled/document ed in this visit Pain Disciplines: Skilled Services 07/11/2022 Resolved on 07/31/2022 1 goal linked to scheduled/document ed intervention 1 goal intervention scheduled/document ed in this visit Diabetic Foot Care Disciplines: Skilled Services 07/11/2022 Resolved on 07/31/2022 1 goal linked to scheduled/document ed intervention 1 goal intervention scheduled/document ed in this visit High Risk Medications Disciplines: Skilled Services 07/11/2022 Resolved on 07/31/2022 1 goal linked to scheduled/document ed intervention Discharge Disciplines: Skilled Services 07/11/2022 Resolved on 07/31/2022 1 goal linked to scheduled/document ed intervention 1 goal intervention scheduled/document ed in this visit Advance Directives Disciplines: Skilled Services 07/11/2022 Resolved on 07/31/2022 1 goal linked to scheduled/document ed intervention Sepsis Disciplines: Skilled Services 07/11/2022 Resolved on 07/31/2022 1 goal linked to scheduled/document ed intervention 1 goal intervention scheduled/document ed in this visit Goals Goal Associated Problem Outcome Goal Met? Visit Notes Improved Muscle Performance and/or ROM Description: LTG: Patient will demonstrate improved muscle performance to meet functional goals as evidenced by ability to tolerate 10 minutes of stadning activity, to be achieved by 08/02/22 . STG: Patient and/or caregiver will verbalize/demonstrate independence with home exercise program, to improve functional mobility, to be achieved by 07/19/22. PT Impaired muscle performance and/or ROM Completed Yes Improved Transfers Description: LTG: Patient will demonstrate safe transfers to/from bed, chair, toilet, couch, shower/tub and car independently with AD, to be achieved by 08/02/22 . PT Impaired mobility Completed Yes Improved Bed Mobility Description: STG: Patient will demonstrate improved bed mobility, ability to position self and supine <> sit independently to be achieved by 07/26/22. PT Impaired mobility Completed Yes Improved Stair Climbing Description: LTG: Patient will demonstrate improved stair negotiation as evidenced by ascend/descend 12 steps to basementwith railing and with cane independently, to safely access all areas of the home, to be achieved by 08/02/22 . PT Impaired gait Completed Yes Improved Gait Description: STG: Patient will demonstrate improved gait ability as evidenced by ambulation 150 feet with front wheeled walker independently with AD, in order to Manuever throughout home , to be achieved by 07/22/22. LTG: Patient will demonstrate improved gait ability as evidenced by ambulation 150 feet with single point cane independently with AD, to return to safe household and community ambulation, , to be achieved by 08/02/22 . PT Impaired gait Completed Yes Improved Balance Description: LTG: Patient will demonstrate improved standing balance to meet functional goals as evidenced by TUG score of <25 to be achieved by 08/02/22. PT Impaired balance Completed Yes Manage Orthopedic Condition Description: Improve patient and/or caregiver understanding of post surgical and/or non-surgical orthopedic intervention management as evidenced by patient and/or caregiver able to verbalize, demonstrate, and teach back instruction, to be achieved by 09/08/22. . PT Orthopedic Condition Completed Yes Demonstrate understanding of education Description: Patient and/or caregiver will understand educational instruction to be achieved by 08/02/22 . PT Learning Assessment Completed Yes Patient/caregiver will demonstrate ability to obtain, store, identify and administer ordered medications, keep accurate medication list in home, and adhere to medication schedule Description: Patient/caregiver will demonstrate ability to obtain, store, identify and administer ordered medications, keep accurate medication list in home, and adhere to medication schedule by 09/08/22. . Medication Education Completed Yes Patient to maintain parameters within physician-specified ranges throughout certification period Physician Specific Parameters Completed Yes Manage Risk for falls Description: Patient/caregiver will verbalize knowledge of individualized fall prevention strategies by 09/08/22. . Risk for Falls Completed Yes Manage Pain Description: Patient/caregiver will verbalize knowledge and understanding of appropriate techniques to control pain, including pain medication and non-pharmacological techniques. Patient will verbalize or demonstrate an acceptable level of pain as evidenced by a pain score of <5/10 and improvement in ability to perform activities of daily living to be achieved by 09/08/22. . Pain Completed Yes Manage diabetic foot care Description: Patient/caregiver will demonstrate basic understanding of and compliance with diabetic self-care management as evidenced by verbalizing purpose of daily foot care and assessment by 09/08/22. Diabetic Foot Care Completed Yes Patient/caregiver will teach back high risk medication side effect and precaution education High Risk Medications Completed Yes Manage discharge planning Description: Patient/caregiver will verbalize understanding of ongoing discharge plan provided related to disease management, arrangements for outpatient and/or community services, obtaining medications, supplies, and DME, as needed throughout certification period. Discharge Completed Yes Patient/caregiver will make healthcare providers aware of and any changes to Advance Directives throughout certification period Advance Directives Completed Yes Patient/caregiver will be able to identify and report symptoms of sepsis Description: Patient/caregiver will be able to identify signs/symptoms of sepsis infection and will verbalize actions to take if suspected by 09/08/22. Sepsis Completed Yes Interventions Intervention Associated Problem/Goal Status Variance Visit Notes Physical Therapy Therapeutic Exercises Problem:PT Impaired muscle performance and/or ROM Goal:Improved Muscle Performance and/or ROM Completed patient instructed on strengthening exercises including ann standing heel raises, hip abd and flexion, hamstring curl s and mini sits x's 15 each. with verbal cues for slower pace. patient instructed to perform home exercise program twice a day which included above exercises. Physical Therapy Transfer Training Problem:PT Impaired mobility Goal:Improved Transfers Completed EDISON transfers with safe/proper technique Physical Therapy Bed Mobility Training Problem:PT Impaired mobility Goal:Improved Bed Mobility Completed EDISON bed mobility Physical Therapy Stair Training Problem:PT Impaired gait Goal:Improved Stair Climbing Completed up an down steps with rail + cane with step together sequence Physical Therapy Gait Training Problem:PT Impaired gait Goal:Improved Gait Completed INdep amb with st cane with steady recip pattern x 300' Physical Therapy Balance Training Problem:PT Impaired balance Goal:Improved Balance Completed pt demonstrates improved dynamic standing balance as evidenced by a tug of 10 Instruct on orthopedic precautions and weight bearing restrictions Description: Orthopedic precautions including right posterior hip: no hip flexion > 90 degrees, no adduction and no ir/er rotation of involved extermity. Weight bearing restrictions include: 50% PWB of involved extremity. Problem:PT Orthopedic Condition Goal:Manage Orthopedic Condition Completed patient instructed on orthopedic precautions. Instruct on management of edema Problem:PT Orthopedic Condition Goal:Manage Orthopedic Condition Completed Instruct patient on management of edema including elevation of RLE above the level of the heart and ice. Instruct on self-management of post surgical and/or non-surgical orthopedic intervention Problem:PT Orthopedic Condition Goal:Manage Orthopedic Condition Completed patient instructed on managagement of orthopedic condition, signs and symptoms of infection, signs and symptoms of DVT/PE and instructed on when to call provider. Instruct and educate on knowledge deficits Problem:PT Learning Assessment Goal:Demonstrate understanding of education Completed patient verbalize and/or demonstrate understanding of physical therapy education including orthopedic condition management, weight bearing precautions, surgical precautions, pain management, fall prevention strategies, home safety, functional activity and home exercise program. Education methods include: verbal cues. SPO2 Description: Notify Dr. Patricia if pulse ox is <92% at rest. Problem:Physician Specific Parameters Goal:Patient to maintain parameters within physician-specified ranges throughout certification period Completed Instruct on individual fall risk factors and strategies to prevent falls and injuries caused by falls. Problem:Risk for Falls Goal:Manage Risk for falls Completed PT: Patient instructed on Eliminating Environmental Hazards: Keep pathways clear, Keep pets out of pathways, Remove unsafe rugs and Move furniture from pathways Managing Impaired Functional Mobility: Use assistive device(s): single point cane Managing Pain Instruct on pain and instruct on strategies to control pain Problem:Pain Goal:Manage Pain Completed patient instructed on techniques to control pain including Pharmacological measures and Non-Pharmacological measures; rest, positioning/elevation and use of thermal modalities, apply ice to affected area . Monitor lower extremities for skin lesions and educate on proper foot care Problem:Diabetic Foot Care Goal:Manage diabetic foot care Completed patient instructed on diabetic foot care including daily skin inspection and wearing proper footwear/avoiding going barefoot. Instruct on final discharge plan and deliver discharge instructions Problem:Discharge Goal:Manage discharge planning Completed Delivered Discharge plan: Discharge plan discussed with patient for plan for transition to: live independently at home without ongoing services Risk of Sepsis Description: Patient is at risk for sepsis. Monitor closely for s/s of sepsis. Problem:Sepsis Goal:Patient/caregive r will be able to identify and report symptoms of sepsis [facility] Visit Details Visit Type -PT SOC Discipline -Physical Therapy Problems Problem Description Start Date Status Goals Interve ntions Medication Education Disciplines: Skilled Services 09/18/2022 Active 1 goal linked to scheduled/doc[facility] intervention 1 goal intervention scheduled/document ed in this visit Sepsis Disciplines: Skilled Services 09/18/2022 Active 1 goal linked to scheduled/documen angelica intervention 1 goal intervention scheduled/document ed in this visit Physician Specific Parameters Disciplines: Skilled Services 09/18/2022 Active 1 goal linked to scheduled/documen angelica intervention 1 goal intervention scheduled/document ed in this visit Risk for Falls Disciplines: Skilled Services 09/18/2022 Active 1 goal linked to scheduled/documen angelica intervention 1 goal intervention scheduled/document ed in this visit Pain Disciplines: Skilled Services 09/18/2022 Active 1 goal linked to scheduled/documen angelica intervention 1 goal intervention scheduled/document ed in this visit High Risk Medications Disciplines: Skilled Services 09/18/2022 Active 1 goal linked to scheduled/documen angelica intervention 5 goal interventions scheduled/document ed in this visit Discharge Disciplines: Skilled Services 09/18/2022 Active 1 goal linked to scheduled/documen angelica intervention 1 goal intervention scheduled/document ed in this visit Advance Directives Disciplines: Skilled Services 09/18/2022 Resolved on 09/18/2022 1 goal linked to scheduled/doc[facility] angelica intervention 1 goal intervention scheduled/document ed in this visit PT Impaired Aerobic Capacity Disciplines: PT 09/18/2022 Active 1 goal linked to scheduled/documen angelica intervention 1 goal intervention scheduled/document ed in this visit PT Impaired mobility Disciplines: PT 09/18/2022 Active 1 goal linked to scheduled/documen angelica intervention 1 goal intervention scheduled/document ed in this visit PT Impaired gait Disciplines: PT 09/18/2022 Active 1 goal linked to scheduled/documen angelica intervention 1 goal intervention scheduled/document ed in this visit PT Impaired balance Disciplines: PT 09/18/2022 Active 1 goal linked to scheduled/documen angelica intervention 1 goal intervention scheduled/document ed in this visit PT Orthopedic Condition Disciplines: PT 09/18/2022 Active 1 goal linked to scheduled/documen angelica intervention 2 goal interventions scheduled/document ed in this visit PT Learning Assessment Disciplines: PT 09/18/2022 Active 1 goal linked to scheduled/documen angelica intervention 1 goal intervention scheduled/document ed in this visit Goals Goal Associated Problem Outcome Goal Met? Visit Notes Patient/caregiver will demonstrate ability to obtain, store, identify and administer ordered medications, keep accurate medication list in home, and adhere to medication schedule Description: Patient/caregiver will demonstrate ability to obtain, store, identify and administer ordered medications, keep accurate medication list in home, and adhere to medication schedule by 11/16/22. Medication Education No Patient/caregiver will be able to identify and report symptoms of sepsis Description: Patient/caregiver will be able to identify signs/symptoms of sepsis infection and will verbalize actions to take if suspected by 11/16/22. Sepsis No Patient to maintain parameters within physician-specified ranges throughout certification period Physician Specific Parameters No Manage Risk for falls Description: Patient/caregiver will verbalize knowledge of individualized fall prevention strategies by 11/16/22. Risk for Falls No Manage Pain Description: Patient/caregiver will verbalize knowledge and understanding of appropriate techniques to control pain, including pain medication and non-pharmacological techniques. Patient will verbalize or demonstrate an acceptable level of pain as evidenced by a pain score of 3/10 and improvement in ability to perform activities of daily living to be achieved by 11/16/22. Pain No Patient/caregiver will teach back high risk medication side effect and precaution education High Risk Medications No Manage discharge planning Description: Patient/caregiver will verbalize understanding of ongoing discharge plan provided related to disease management, arrangements for outpatient and/or community services, obtaining medications, supplies, and DME, as needed throughout certification period. Discharge No Patient/caregiver will make healthcare providers aware of and any changes to Advance Directives throughout certification period Advance Directives Completed Yes Goal met Improved Aerobic Capacity Description: LTG: Patient will demonstrate improved aerobic capacity to meet functional goals as evidenced by Rate of Percieved Exertion (RPE) of 2/10 during stair negotiation, to be achieved by 10/04/21. PT Impaired Aerobic Capacity No Improved Transfers Description: STG: Patient will demonstrate safe transfers to/from bed, chair, toilet and couch independently, to be achieved by 10/04/21. LTG: Patient will demonstrate safe transfers to/from shower/tub and car independently, to be achieved by 10/04/21. PT Impaired mobility No Improved Gait Description: LTG: Patient will demonstrate improved gait ability as evidenced by ambulation 250 feet with single point cane independently, to return to safe community ambulation, in order to safely walk into medical appointments, to be achieved by 10/04/21. PT Impaired gait No Improved Balance Description: LTG: Patient will demonstrate improved standing balance to meet functional goals as evidenced by TUG score of 14 sec to be achieved by 10/04/21. PT Impaired balance No Manage Orthopedic Condition Description: Improve patient and/or caregiver understanding of post surgical and/or non-surgical orthopedic intervention management as evidenced by patient and/or caregiver able to verbalize, demonstrate, and teach back instruction, to be achieved by 10/04/21. PT Orthopedic Condition No Demonstrate understanding of education Description: Patient and/or caregiver will understand educational instruction to be achieved by 10/04/21. PT Learning Assessment No Interventions Intervention Associated Problem/Goal Status Variance Visit Notes Medication Education Description: Evaluate/instruct patient/caregiver on obtaining, storing, identifying and administering ordered medications as well as keeping accurate medication list in the home and adhereing to medication schedule Problem:Medication Education Goal:Patient/caregive r will demonstrate ability to obtain, store, identify and administer ordered medications, keep accurate medication list in home, and adhere to medication schedule Completed Patient instructed on importance of keeping accurate medication list in home, adhering to medication schedule and proper storage of medications. Risk of Sepsis Description: Patient is at risk for sepsis. Monitor closely for s/s of sepsis. Problem:Sepsis Goal:Patient/caregive r will be able to identify and report symptoms of sepsis Completed SPO2 Description: Notify Dr. Patricia if pulse ox is <92% at rest. Problem:Physician Specific Parameters Goal:Patient to maintain parameters within physician-specified ranges throughout certification period Completed Instruct on individual fall risk factors and strategies to prevent falls and injuries caused by falls. Problem:Risk for Falls Goal:Manage Risk for falls Completed PT: Patient instructed on Eliminating Environmental Hazards: Keep pathways clear, Move furniture from pathways, Keep rooms and walkways well lit, Wear supportive shoes or non-skid socks and Keep frequently used items within reach Instruct on pain and instruct on strategies to control pain Problem:Pain Goal:Manage Pain Completed Patient and caregiver instructed on techniques to control pain including Pharmacological measures and Non-Pharmacological measures; rest, positioning/elevation, mobility/therapeutic exercise, use ofDME/assistive devices and use of thermal modalities, apply ice to affected area for the following prescribed frequency: 4 times a day x 20 min. Opioids- educated on high risk medication Problem:High Risk Medications Goal:Patient/caregive r will teach back high risk medication side effect and precaution education Completed patient educated on taking medication(s) as prescribed by provider. Do not stop medication or alter doses without speaking with your provider. Discuss medication effectiveness or side effect concerns with your provider and home care team. Only take opioids as prescribed, do not share your medications, and take proper precautions in storing and properly disposing of opioids once no longer needed. Possible side effects of opioid medication including sedation, decreased rate of breathing, and constipation. Report over sedation to prescribing provider and practice deep breathing techniques every hour while awake. Prevent constipation by increasing water and fiber intake, increasing activity as tolerated, and use stool softener(s) as prescribed. Hypoglycemic (including insulin)- educated on high risk medication Problem:High Risk Medications Goal:Patient/caregive r will teach back high risk medication side effect and precaution education Completed patient educated on taking medication(s) as prescribed by provider. Do not stop medication or skip/alter doses without speaking with your provider. Discuss medication effectiveness or side effect concerns with your provider and home care team. Check blood sugars and keep log as ordered by provider. Monitor for side effects of hypoglycemia such as increased weakness or shaking, moist skin, sweating, fast heartbeat, dizziness, sudden hunger, confusion, pale skin, numbness in mouth or tongue, irritability, nervousness, unsteadiness, nightmares, bad dreams, and restless sleep. Checking your blood sugar routinely and eating a consistent diabetic diet can help regulate blood sugars and reduce side effects. Antiplatelet- educated on high risk medication Problem:High Risk Medications Goal:Patient/caregive r will teach back high risk medication side effect and precaution education Completed patient educated on taking medication(s) as prescribed by provider. Do not stop medication or alter doses without speaking with your provider. Discuss medication effectiveness or side effect concerns with your provider and home care team. Discuss all medications you are taking, even esbo-afi-gferckk medicines, with your provider and pharmacist since many drugs can interact with antiplatelet medications. If you forget to take a dose, DO NOT take a double dose. Take the missed dose as soon as possible on the same day. DO NOT take a double dose the next day to make up for the missed dose. Watch for signs of abnormal or excessive bleeding and bruising (refer to Bleeding Precautions education). Call your health care provider right away if you suspect something is wrong. Antibiotic- educated on high risk medication Problem:High Risk Medications Goal:Patient/caregive r will teach back high risk medication side effect and precaution education Completed patient educated on taking medication(s) as prescribed by provider. Do not stop medication or alter doses without speaking with your provider. Discuss medication effectiveness or side effect concerns with your provider and home care team. Take the full dispensed amount even if you start feeling better, as bacteria can become resistant to antibiotic treatment if you do not finish your prescription. Common side effects are upset stomach and diarrhea. Take your antibiotics with food unless otherwise indicated to help with indigestion. Taking an dxrp-iff-diyvojy probiotic or eating yogurt with live and active cultures three times a day can help prevent antibiotic-associated diarrhea. Call your provider immediately if you develop rashes or hives as this could be a delayed allergic reaction. Seek emergency treatment if you develop severe allergic reaction symptoms such as mouth or tongue swelling. Antipsychotic- educated on high risk medication Problem:High Risk Medications Goal:Patient/caregive r will teach back high risk medication side effect and precaution education Completed patient educated on taking medication(s) as prescribed by provider. Do not stop medication or skip/alter doses without speaking with your provider. Discuss medication effectiveness or side effect concerns with your provider and home care team. There is a risk for weight gain and diabetes. Getting regular checkups and medical care as well as eating a nutritious diet, exercising regularly and getting enough sleep can help reduce this side effect. Other common side effects are dry mouth, dizziness, blurred vision, agitation or sedation (feeling tired or wired). Monitor for involuntary muscle movements such as tremors, muscle stiffness, or tics and report these to your prescribing provider. Seek emergency treatment if you develop seizures or a fever, muscle stiffness and delirium as this could be a sign of a rare but serious side effect. Instruct on ongoing discharge plan Problem:Discharge Goal:Manage discharge planning Completed Ongoing Discharge plan: Discharge plan discussed with patient and caregiver including frequency and duration for home PT and plan for transition to: outpatient therapy. Determine patient's Advance Directive Status Description: Patient does not have advance directives. Patient/Caregiver declined Advance Directive information. Problem:Advance Directives Goal:Patient/caregive r will make healthcare providers aware of and any changes to Advance Directives throughout certification period Completed Discussed Advance Directives with Patient and/or Caregiver. Referred patient to Home Care handbook for further information on Healthcare DPOA & Living Will. Physical Therapy Aerobic Capacity Training Problem:PT Impaired Aerobic Capacity Goal:Improved Aerobic Capacity Completed patient instructed on utilization of the Rate of Percieved Exertion (RPE) scale, to not exceed 3-6/10 indicating moderate to heavy intensity of activity. Developed, implemented, and instructed patient on physical therapy interventions completing 30 minutes of paced and physiologically monitored activity. Reported 5/10 with HEP today. Physical Therapy Transfer Training Problem:PT Impaired mobility Goal:Improved Transfers Completed Transfer training and instruction to patient on safe transfers to and from chair with supervision and verbal cues for hand placement and positioning to edge of surface prior to standing. Physical Therapy Gait Training Problem:PT Impaired gait Goal:Improved Gait Completed Gait training and instruction to patient on safe ambulation with front wheeled walker for 25 feet with supervision, with verbal cues for corrections of gait deviations including even steps and heel to toe gait. Physical Therapy Balance Training Problem:PT Impaired balance Goal:Improved Balance Completed Developed, implemented, and instructed patient on standing balance exercises including TUG of 37 sec. Instruct on orthopedic precautions and weight bearing restrictions Description: Orthopedic precautions including right total knee: no crossing legs, no knee flexed over pillow at rest, no kneeling, no squatting and no twisting. Weight bearing restrictions include: WBAT of involved extremity. Problem:PT Orthopedic Condition Goal:Manage Orthopedic Condition Completed patient instructed on orthopedic precautions including right total knee: no crossing legs, no knee flexed over pillow at rest, no kneeling, no squatting and no twisting. Weight bearing restrictions include: WBAT of involved extremity. Instruct on management of edema Problem:PT Orthopedic Condition Goal:Manage Orthopedic Condition Completed Instruct patient on management of edema including elevation of right LE above the level of the heart, ice, medication adherence strategies and benefits of activity. Instruct and educate on knowledge deficits Problem:PT Learning Assessment Goal:Demonstrate understanding of education Completed patient verbalize and/or demonstrate understanding of physical therapy education including diabetic care management, orthopedic condition management, weight bearing precautions, surgical precautions, pain management, nutrition, fall prevention strategies, home safety, integumentary and incision/wound care management, infection control precautions, functional activity and home exercise program. Education methods include: verbal cues. Further education required to improve knowledge and compliance with diabetic care management, orthopedic condition management, weight bearing precautions, surgical precautions, pain management, nutrition, fall prevention strategies, home safety, integumentary and incision/wound care management, infection control precautions, functional activity and home exercise program. [facility] Visit Details Visit Type -[facility] ROUTINE Discipline -Physical Therapy Problems Problem Description Start Date Status Goals Interve ntions Sepsis Disciplines: Skilled Services 09/18/2022 Active 1 goal linked to scheduled/document ed intervention 1 goal intervention scheduled/document ed in this visit Physician Specific Parameters Disciplines: Skilled Services 09/18/2022 Active 1 goal linked to scheduled/document ed intervention 1 goal intervention scheduled/document ed in this visit Risk for Falls Disciplines: Skilled Services 09/18/2022 Active 1 goal linked to scheduled/document ed intervention 1 goal intervention scheduled/document ed in this visit Pain Disciplines: Skilled Services 09/18/2022 Active 1 goal linked to scheduled/document ed intervention 1 goal intervention scheduled/document ed in this visit Diabetic Foot Care Disciplines: Skilled Services 09/18/2022 Active 1 goal linked to scheduled/document ed intervention 1 goal intervention scheduled/document ed in this visit Discharge Disciplines: Skilled Services 09/18/2022 Active 1 goal linked to scheduled/document ed intervention 1 goal intervention scheduled/document ed in this visit PT Impaired Aerobic Capacity Disciplines: PT 09/18/2022 Active 1 goal linked to scheduled/document ed intervention 1 goal intervention scheduled/document ed in this visit PT Impaired muscle performance and/or ROM Disciplines: PT 09/18/2022 Active 1 goal linked to scheduled/document ed intervention 1 goal intervention scheduled/document ed in this visit PT Impaired mobility Disciplines: PT 09/18/2022 Active 1 goal linked to scheduled/document ed intervention 1 goal intervention scheduled/document ed in this visit PT Impaired gait Disciplines: PT 09/18/2022 Active 1 goal linked to scheduled/document ed intervention 1 goal intervention scheduled/document ed in this visit PT Orthopedic Condition Disciplines: PT 09/18/2022 Active 1 goal linked to scheduled/document ed intervention 3 goal interventions scheduled/document ed in this visit PT Learning Assessment Disciplines: PT 09/18/2022 Active 1 goal linked to scheduled/document ed intervention 1 goal intervention scheduled/document ed in this visit Goals Goal Associated Problem Outcome Goal Met? Visit Notes Patient/caregiver will be able to identify and report symptoms of sepsis Description: Patient/caregiver will be able to identify signs/symptoms of sepsis infection and will verbalize actions to take if suspected by 11/16/22. Sepsis No Patient to maintain parameters within physician-specified ranges throughout certification period Physician Specific Parameters No Manage Risk for falls Description: Patient/caregiver will verbalize knowledge of individualized fall prevention strategies by 11/16/22. Risk for Falls No Manage Pain Description: Patient/caregiver will verbalize knowledge and understanding of appropriate techniques to control pain, including pain medication and non-pharmacological techniques. Patient will verbalize or demonstrate an acceptable level of pain as evidenced by a pain score of 3/10 and improvement in ability to perform activities of daily living to be achieved by 11/16/22. Pain No Manage diabetic foot care Description: Patient/caregiver will demonstrate basic understanding of and compliance with diabetic self-care management as evidenced by verbalizing purpose of daily foot care and assessment by 11/16/22. Diabetic Foot Care No Manage discharge planning Description: Patient/caregiver will verbalize understanding of ongoing discharge plan provided related to disease management, arrangements for outpatient and/or community services, obtaining medications, supplies, and DME, as needed throughout certification period. Discharge No Improved Aerobic Capacity Description: LTG: Patient will demonstrate improved aerobic capacity to meet functional goals as evidenced by Rate of Percieved Exertion (RPE) of 2/10 during stair negotiation, to be achieved by 10/04/21. PT Impaired Aerobic Capacity No Improved Muscle Performance and/or ROM Description: LTG: Patient will demonstrate improved muscle performance to meet functional goals as evidenced by ability to tolerate 15 reps of each ex with HEP in order to have needed strength for negotiating home entry steps. To be achieved by 10/04/22 LTG: Patient and/or caregiver will verbalize/demonstrate independence with home exercise program, to improve functional mobility, to be achieved by 10/04/22 PT Impaired muscle performance and/or ROM No Improved Transfers Description: STG: Patient will demonstrate safe transfers to/from bed, chair, toilet and couch independently, to be achieved by 10/04/21. LTG: Patient will demonstrate safe transfers to/from shower/tub and car independently, to be achieved by 10/04/21. PT Impaired mobility No Improved Gait Description: LTG: Patient will demonstrate improved gait ability as evidenced by ambulation 250 feet with single point cane independently, to return to safe community ambulation, in order to safely walk into medical appointments, to be achieved by 10/04/21. PT Impaired gait No Manage Orthopedic Condition Description: Improve patient and/or caregiver understanding of post surgical and/or non-surgical orthopedic intervention management as evidenced by patient and/or caregiver able to verbalize, demonstrate, and teach back instruction, to be achieved by 10/04/21. PT Orthopedic Condition No Demonstrate understanding of education Description: Patient and/or caregiver will understand educational instruction to be achieved by 10/04/21. PT Learning Assessment No Interventions Intervention Associated Problem/Goal Status Variance Visit Notes Risk of Sepsis Description: Patient is at risk for sepsis. Monitor closely for s/s of sepsis. Problem:Sepsis Goal:Patient/caregive r will be able to identify and report symptoms of sepsis Completed SPO2 Description: Notify Dr. Patricia if pulse ox is <92% at rest. Problem:Physician Specific Parameters Goal:Patient to maintain parameters within physician-specified ranges throughout certification period Completed Instruct on individual fall risk factors and strategies to prevent falls and injuries caused by falls. Problem:Risk for Falls Goal:Manage Risk for falls Completed PT: Patient instructed on Managing Impaired Functional Mobility: Use assistive device(s): front wheeled walker Instruct on pain and instruct on strategies to control pain Problem:Pain Goal:Manage Pain Completed patient instructed on techniques to control pain including Pharmacological measures and Non-Pharmacological measures; rest, positioning/elevation and distraction. Monitor lower extremities for skin lesions and educate on proper foot care Problem:Diabetic Foot Care Goal:Manage diabetic foot care Completed patient instructed on diabetic foot care including daily skin inspection, wearing proper footwear/avoiding going barefoot, wash/dry feet thoroughly and applying moisturizer, avoiding between toes. Instruct on ongoing discharge plan Problem:Discharge Goal:Manage discharge planning Completed Ongoing Discharge plan: Discharge plan discussed with patient including frequency and duration for home PT and plan for transition to: outpatient therapy or I with [facility] Physical Therapy Aerobic Capacity Training Problem:PT Impaired Aerobic Capacity Goal:Improved Aerobic Capacity Completed patient instructed on utilization of the Rate of Percieved Exertion (RPE) scale, to not exceed 3-6/10 indicating moderate to heavy intensity of activity. Developed, implemented, and instructed patient on physical therapy interventions completing 20 minutes of paced and physiologically monitored activity. Physical Therapy Therapeutic Exercises Problem:PT Impaired muscle performance and/or ROM Goal:Improved Muscle Performance and/or ROM Completed patient instructed on strengthening and range of motion exercises including supine: saq, qs, ankle pumps, hip abduction x 10 reps and seated heel slides and measures 75 degrees of seated aarom with verbal and written cues for correct technique. patient instructed to perform home exercise program twice a day which included above. Physical Therapy Transfer Training Problem:PT Impaired mobility Goal:Improved Transfers Completed Transfer training and instruction to patient on safe transfers to and from couch with independent Physical Therapy Gait Training Problem:PT Impaired gait Goal:Improved Gait Completed Gait training and instruction to patient on safe ambulation with front wheeled walker for 150 feet with independent, with verbal cues for corrections of gait deviations including knee flexion in swing phase of gait. . Instruct on orthopedic precautions and weight bearing restrictions Description: Orthopedic precautions including right total knee: no crossing legs, no knee flexed over pillow at rest, no kneeling, no squatting and no twisting. Weight bearing restrictions include: WBAT of involved extremity. Problem:PT Orthopedic Condition Goal:Manage Orthopedic Condition Completed patient instructed on orthopedic precautions and weight bearing restrictions. Instruct on management of edema Problem:PT Orthopedic Condition Goal:Manage Orthopedic Condition Completed Instruct patient on management of edema including elevation of right knee above the level of the heart, ice, medication adherence strategies and benefits of activity. Instruct on self-management of post surgical and/or non-surgical orthopedic intervention Problem:PT Orthopedic Condition Goal:Manage Orthopedic Condition Completed patient instructed on incision care: right knee, signs and symptoms of infection, signs and symptoms of DVT/PE, instructed on when to call provider and instructed on when to call 911. Instruct and educate on knowledge deficits Problem:PT Learning Assessment Goal:Demonstrate understanding of education Completed patient verbalize and/or demonstrate understanding of physical therapy education including infection control precautions, functional activity and home exercise program. Education methods include: verbal cues and written instructions. Further education required to improve knowledge and compliance with infection control precautions, functional activity and home exercise program. documented in this encounter [facility]'s home Plan of care note* Visit Details Visit Type -PT ROUTINE Discipline -Physical Therapy Problems Problem Description Start Date Status Goals Interve ntions Physician Specific Parameters Disciplines: Skilled Services 09/18/2022 Active 1 goal linked to scheduled/document ed intervention 1 goal intervention scheduled/document ed in this visit Risk for Falls Disciplines: Skilled Services 09/18/2022 Active 1 goal linked to scheduled/document ed intervention 1 goal intervention scheduled/document ed in this visit Pain Disciplines: Skilled Services 09/18/2022 Active 1 goal linked to scheduled/document ed intervention 1 goal intervention scheduled/document ed in this visit Diabetic Foot Care Disciplines: Skilled Services 09/18/2022 Active 1 goal linked to scheduled/document ed intervention 1 goal intervention scheduled/document ed in this visit Discharge Disciplines: Skilled Services 09/18/2022 Active 1 goal linked to scheduled/document ed intervention 1 goal intervention scheduled/document ed in this visit PT Impaired muscle performance and/or ROM Disciplines: PT 09/18/2022 Active 1 goal linked to scheduled/document ed intervention 1 goal intervention scheduled/document ed in this visit PT Impaired mobility Disciplines: PT 09/18/2022 Active 1 goal linked to scheduled/document ed intervention 1 goal intervention scheduled/document ed in this visit PT Impaired gait Disciplines: PT 09/18/2022 Active 1 goal linked to scheduled/document ed intervention 1 goal intervention scheduled/document ed in this visit PT Orthopedic Condition Disciplines: PT 09/18/2022 Active 1 goal linked to scheduled/document ed intervention 2 goal interventions scheduled/document ed in this visit PT Learning Assessment Disciplines: PT 09/18/2022 Active 1 goal linked to scheduled/document ed intervention 1 goal intervention scheduled/document ed in this visit Goals Goal Associated Problem Outcome Goal Met? Visit Notes Patient to maintain parameters within physician-specified ranges throughout certification period Physician Specific Parameters No Manage Risk for falls Description: Patient/caregiver will verbalize knowledge of individualized fall prevention strategies by 11/16/22. Risk for Falls No Manage Pain Description: Patient/caregiver will verbalize knowledge and understanding of appropriate techniques to control pain, including pain medication and non-pharmacological techniques. Patient will verbalize or demonstrate an acceptable level of pain as evidenced by a pain score of 3/10 and improvement in ability to perform activities of daily living to be achieved by 11/16/22. Pain No Manage diabetic foot care Description: Patient/caregiver will demonstrate basic understanding of and compliance with diabetic self-care management as evidenced by verbalizing purpose of daily foot care and assessment by 11/16/22. Diabetic Foot Care No Manage discharge planning Description: Patient/caregiver will verbalize understanding of ongoing discharge plan provided related to disease management, arrangements for outpatient and/or community services, obtaining medications, supplies, and DME, as needed throughout certification period. Discharge No Improved Muscle Performance and/or ROM Description: LTG: Patient will demonstrate improved muscle performance to meet functional goals as evidenced by ability to tolerate 15 reps of each ex with HEP in order to have needed strength for negotiating home entry steps. To be achieved by 10/04/22 LTG: Patient and/or caregiver will verbalize/demonstrate independence with home exercise program, to improve functional mobility, to be achieved by 10/04/22 PT Impaired muscle performance and/or ROM No Improved Bed Mobility Description: STG: Patient will demonstrate improved bed mobility independently to be achieved by 09/27/22. PT Impaired mobility No Improved Gait Description: LTG: Patient will demonstrate improved gait ability as evidenced by ambulation 250 feet with single point cane independently, to return to safe community ambulation, in order to safely walk into medical appointments, to be achieved by 10/04/21. PT Impaired gait No Manage Orthopedic Condition Description: Improve patient and/or caregiver understanding of post surgical and/or non-surgical orthopedic intervention management as evidenced by patient and/or caregiver able to verbalize, demonstrate, and teach back instruction, to be achieved by 10/04/21. PT Orthopedic Condition No Demonstrate understanding of education Description: Patient and/or caregiver will understand educational instruction to be achieved by 10/04/21. PT Learning Assessment No Interventions Intervention Associated Problem/Goal Status Variance Visit Notes SPO2 Description: Notify Dr. Patricia if pulse ox is <92% at rest. Problem:Physician Specific Parameters Goal:Patient to maintain parameters within physician-specified ranges throughout certification period Completed Instruct on individual fall risk factors and strategies to prevent falls and injuries caused by falls. Problem:Risk for Falls Goal:Manage Risk for falls Completed PT: Patient instructed on Eliminating Environmental Hazards: Keep pathways clear- multiple dog toys Managing Impaired Functional Mobility: Use assistive device(s): front wheeled walker. Walker raised 1 level for improved fit. Managing Pain Instruct on pain and instruct on strategies to control pain Problem:Pain Goal:Manage Pain Completed patient instructed on techniques to control pain including Pharmacological measures and Non-Pharmacological measures; rest, positioning/elevation, use of DME/assistive devices and use of thermal modalities, apply ice to affected area for the following prescribed frequency: ice machine as tolerated. Assisted to proper elevation- patient reported it was very comfortable. Monitor lower extremities for skin lesions and educate on proper foot care Problem:Diabetic Foot Care Goal:Manage diabetic foot care Completed patient instructed on diabetic foot care including wearing proper footwear/avoiding going barefoot. Instruct on ongoing discharge plan Problem:Discharge Goal:Manage discharge planning Completed Ongoing Discharge plan: Discharge plan discussed with patient including frequency and duration for home PT and plan for transition to: outpatient therapy. Physical Therapy Therapeutic Exercises Problem:PT Impaired muscle performance and/or ROM Goal:Improved Muscle Performance and/or ROM Completed Patient and caregiver instructed on strengthening and range of motion exercises including BLE ankle pumps, quad set, glut set x10; RLE SAQ, hip abd, heelslides x10 ea with verbal, tactile, visual and written cues for safety and technique. patient and caregiver instructed to perform home exercise program three times a day which included all above ex's as tolerated. Ankle pumps hourly, walking every 1-2 hours with walker and assistance. Handouts updated. Also performed standing heel/toe raise and RLE may x8 each. Physical Therapy Bed Mobility Training Problem:PT Impaired mobility Goal:Improved Bed Mobility Completed Bed mobility training and instruction to patient, including supine<>sit and repositioning self with stand by assist and verbal and visual cues for use of UE's to avoid strain to LE. Physical Therapy Gait Training Problem:PT Impaired gait Goal:Improved Gait Completed Gait training and instruction to patient on safe ambulation with front wheeled walker for 80 feet with stand by assist, with verbal and visual cues for corrections of gait deviations including hip/knee flexion, heelstrike, walker placement; natural knee flexion as tolerated. Instruct on management of edema Problem:PT Orthopedic Condition Goal:Manage Orthopedic Condition Completed Instruct patient on management of edema including elevation of RLE above the level of the heart. Physical therapy to perform surgical incision/wound management Description: Removal of post-op dressing on 09/22/22. If no drainage is present, leave open to air; if drainage is present, cover with clean dressing and contact provider and PT employment evaluator/case manager. Problem:PT Orthopedic Condition Goal:Manage Orthopedic Condition Completed Intervention completed this date. See SBAR for detail Instruct and educate on knowledge deficits Problem:PT Learning Assessment Goal:Demonstrate understanding of education Completed patient verbalize and/or demonstrate understanding of physical therapy education including orthopedic condition management, pain management, fall prevention strategies, home safety, integumentary and incision/wound care management, infection control precautions, functional activity and home exercise program. Education methods include: verbal cues, tactile cues, written instructions, visual cues and teach back. Further reinforcement of education required to improve knowledge and compliance with all above documented in this encounter [facility] home Plan of care note* Visit Details Visit Type -PT ROUTINE Discipline -Physical Therapy Problems Problem Description Start Date Status Goals Interve ntions Sepsis Disciplines: Skilled Services 09/18/2022 Active 1 goal linked to scheduled/document ed intervention 1 goal intervention scheduled/document ed in this visit Physician Specific Parameters Disciplines: Skilled Services 09/18/2022 Active 1 goal linked to scheduled/document ed intervention 1 goal intervention scheduled/document ed in this visit Risk for Falls Disciplines: Skilled Services 09/18/2022 Active 1 goal linked to scheduled/document ed intervention 1 goal intervention scheduled/document ed in this visit Pain Disciplines: Skilled Services 09/18/2022 Active 1 goal linked to scheduled/document ed intervention 1 goal intervention scheduled/document ed in this visit Diabetic Foot Care Disciplines: Skilled Services 09/18/2022 Active 1 goal linked to scheduled/document ed intervention 1 goal intervention scheduled/document ed in this visit PT Impaired muscle performance and/or ROM Disciplines: PT 09/18/2022 Active 1 goal linked to scheduled/document ed intervention 1 goal intervention scheduled/document ed in this visit PT Impaired mobility Disciplines: PT 09/18/2022 Active 2 goals linked to scheduled/document ed interventions 2 goal interventions scheduled/document ed in this visit PT Impaired gait Disciplines: PT 09/18/2022 Active 1 goal linked to scheduled/document ed intervention 1 goal intervention scheduled/document ed in this visit PT Orthopedic Condition Disciplines: PT 09/18/2022 Active 1 goal linked to scheduled/document ed intervention 3 goal interventions scheduled/document ed in this visit PT Learning Assessment Disciplines: PT 09/18/2022 Active 1 goal linked to scheduled/document ed intervention 1 goal intervention scheduled/document ed in this visit Goals Goal Associated Problem Outcome Goal Met? Visit Notes Patient/caregiver will be able to identify and report symptoms of sepsis Description: Patient/caregiver will be able to identify signs/symptoms of sepsis infection and will verbalize actions to take if suspected by 11/16/22. Sepsis No Patient to maintain parameters within physician-specified ranges throughout certification period Physician Specific Parameters No Manage Risk for falls Description: Patient/caregiver will verbalize knowledge of individualized fall prevention strategies by 11/16/22. Risk for Falls No Manage Pain Description: Patient/caregiver will verbalize knowledge and understanding of appropriate techniques to control pain, including pain medication and non-pharmacological techniques. Patient will verbalize or demonstrate an acceptable level of pain as evidenced by a pain score of 3/10 and improvement in ability to perform activities of daily living to be achieved by 11/16/22. Pain No Manage diabetic foot care Description: Patient/caregiver will demonstrate basic understanding of and compliance with diabetic self-care management as evidenced by verbalizing purpose of daily foot care and assessment by 11/16/22. Diabetic Foot Care No Improved Muscle Performance and/or ROM Description: LTG: Patient will demonstrate improved muscle performance to meet functional goals as evidenced by ability to tolerate 15 reps of each ex with HEP in order to have needed strength for negotiating home entry steps. To be achieved by 10/04/22 LTG: Patient and/or caregiver will verbalize/demonstrate independence with home exercise program, to improve functional mobility, to be achieved by 10/04/22 PT Impaired muscle performance and/or ROM No Improved Transfers Description: STG: Patient will demonstrate safe transfers to/from bed, chair, toilet and couch independently, to be achieved by 10/04/21. LTG: Patient will demonstrate safe transfers to/from shower/tub and car independently, to be achieved by 10/04/21. PT Impaired mobility No Improved Bed Mobility Description: STG: Patient will demonstrate improved bed mobility independently to be achieved by 09/27/22. PT Impaired mobility No Improved Gait Description: LTG: Patient will demonstrate improved gait ability as evidenced by ambulation 250 feet with single point cane independently, to return to safe community ambulation, in order to safely walk into medical appointments, to be achieved by 10/04/21. PT Impaired gait No Manage Orthopedic Condition Description: Improve patient and/or caregiver understanding of post surgical and/or non-surgical orthopedic intervention management as evidenced by patient and/or caregiver able to verbalize, demonstrate, and teach back instruction, to be achieved by 10/04/21. PT Orthopedic Condition No Demonstrate understanding of education Description: Patient and/or caregiver will understand educational instruction to be achieved by 10/04/21. PT Learning Assessment No Interventions Intervention Associated Problem/Goal Status Variance Visit Notes Risk of Sepsis Description: Patient is at risk for sepsis. Monitor closely for s/s of sepsis. Problem:Sepsis Goal:Patient/caregive r will be able to identify and report symptoms of sepsis Completed SPO2 Description: Notify Dr. Patricia if pulse ox is <92% at rest. Problem:Physician Specific Parameters Goal:Patient to maintain parameters within physician-specified ranges throughout certification period Completed Instruct on individual fall risk factors and strategies to prevent falls and injuries caused by falls. Problem:Risk for Falls Goal:Manage Risk for falls Completed PT: Patient instructed on Eliminating Environmental Hazards: Keep pathways clear, Keep pets out of pathways, Remove unsafe rugs and Move furniture from pathways Managing Impaired Functional Mobility: Use assistive device(s): front wheeled walker Managing Pain Instruct on pain and instruct on strategies to control pain Problem:Pain Goal:Manage Pain Completed patient instructed on techniques to control pain including Pharmacological measures and Non-Pharmacological measures; rest and positioning/elevation. Monitor lower extremities for skin lesions and educate on proper foot care Problem:Diabetic Foot Care Goal:Manage diabetic foot care Completed patient instructed on diabetic foot care including daily skin inspection and wearing proper footwear/avoiding going barefoot. Physical Therapy Therapeutic Exercises Problem:PT Impaired muscle performance and/or ROM Goal:Improved Muscle Performance and/or ROM Completed Patient and caregiver instructed on strengthening and range of motion exercises including BLE ankle pumps, quad set, glut set x10; RLE SAQ, hip abd, heelslides x10 ea with verbal, tactile, visual and written cues for safety and technique. patient and caregiver instructed to perform home exercise program three times a day which included all above ex's as tolerated. Ankle pumps hourly, walking every 1-2 hours with walker and assistance. Handouts updated. Also performed standing heel/toe raise and RLE may x8 each. seated knee flexion to 85* Physical Therapy Transfer Training Problem:PT Impaired mobility Goal:Improved Transfers Completed Transfer training and instruction to patient on safe transfers to and from chair with supervision and verbal cues for technique . Physical Therapy Bed Mobility Training Problem:PT Impaired mobility Goal:Improved Bed Mobility Completed SBA bed mobility Physical Therapy Gait Training Problem:PT Impaired gait Goal:Improved Gait Completed Gait training and instruction to patient on safe ambulation with front wheeled walker for 30' x 4 feet with supervision, with verbal cues for corrections of gait deviations including development of heel toe pattern Instruct on orthopedic precautions and weight bearing restrictions Description: Orthopedic precautions including right total knee: no crossing legs, no knee flexed over pillow at rest, no kneeling, no squatting and no twisting. Weight bearing restrictions include: WBAT of involved extremity. Problem:PT Orthopedic Condition Goal:Manage Orthopedic Condition Completed patient instructed on orthopedic precautions. Instruct on management of edema Problem:PT Orthopedic Condition Goal:Manage Orthopedic Condition Completed Instruct patient on management of edema including elevation of RLE above the level of the heart and ice. Instruct on self-management of post surgical and/or non-surgical orthopedic intervention Problem:PT Orthopedic Condition Goal:Manage Orthopedic Condition Completed patient instructed on managagement of orthopedic condition, eating foods with high protein, signs and symptoms of infection, signs and symptoms of DVT/PE and instructed on when to call provider. Instruct and educate on knowledge deficits Problem:PT Learning Assessment Goal:Demonstrate understanding of education Completed patient verbalize and/or demonstrate understanding of physical therapy education including orthopedic condition management, surgical precautions, pain management, fall prevention strategies, home safety, functional activity and home exercise program. Education methods include: verbal cues. Further education required to improve knowledge and compliance with surgical precautions, pain management, fall prevention strategies, home safety, functional activity and home exercise program. [facility] Visit Details Visit Type -[facility] [employer] ROUTINE Discipline -Physical Therapy Problems Problem Description Start Date Status Goals Interve ntions Medication Education Disciplines: Skilled Services 09/18/2022 Active 1 goal linked to scheduled/document ed intervention 1 goal intervention scheduled/document ed in this visit Physician Specific Parameters Disciplines: Skilled Services 09/18/2022 Active 1 goal linked to scheduled/document ed intervention 1 goal intervention scheduled/document ed in this visit Risk for Falls Disciplines: Skilled Services 09/18/2022 Active 1 goal linked to scheduled/document ed intervention 1 goal intervention scheduled/document ed in this visit Pain Disciplines: Skilled Services 09/18/2022 Active 1 goal linked to scheduled/document ed intervention 1 goal intervention scheduled/document ed in this visit High Risk Medications Disciplines: Skilled Services 09/18/2022 Active 1 goal linked to scheduled/document ed intervention 1 goal intervention scheduled/document ed in this visit Discharge Disciplines: Skilled Services 09/18/2022 Active 1 goal linked to scheduled/document ed intervention 1 goal intervention scheduled/document ed in this visit PT Impaired Aerobic Capacity Disciplines: PT 09/18/2022 Active 1 goal linked to scheduled/document ed intervention 1 goal intervention scheduled/document ed in this visit PT Impaired muscle performance and/or ROM Disciplines: PT 09/18/2022 Active 1 goal linked to scheduled/document ed intervention 1 goal intervention scheduled/document ed in this visit PT Impaired mobility Disciplines: PT 09/18/2022 Active 2 goals linked to scheduled/document ed interventions 2 goal interventions scheduled/document ed in this visit PT Impaired gait Disciplines: PT 09/18/2022 Active 1 goal linked to scheduled/document ed intervention 1 goal intervention scheduled/document ed in this visit PT Orthopedic Condition Disciplines: PT 09/18/2022 Active 1 goal linked to scheduled/document ed intervention 3 goal interventions scheduled/document ed in this visit PT Learning Assessment Disciplines: PT 09/18/2022 Active 1 goal linked to scheduled/document ed intervention 1 goal intervention scheduled/document ed in this visit Goals Goal Associated Problem Outcome Goal Met? Visit Notes Patient/caregiver will demonstrate ability to obtain, store, identify and administer ordered medications, keep accurate medication list in home, and adhere to medication schedule Description: Patient/caregiver will demonstrate ability to obtain, store, identify and administer ordered medications, keep accurate medication list in home, and adhere to medication schedule by 11/16/22. Medication Education No Patient to maintain parameters within physician-specified ranges throughout certification period Physician Specific Parameters No Manage Risk for falls Description: Patient/caregiver will verbalize knowledge of individualized fall prevention strategies by 11/16/22. Risk for Falls No Manage Pain Description: Patient/caregiver will verbalize knowledge and understanding of appropriate techniques to control pain, including pain medication and non-pharmacological techniques. Patient will verbalize or demonstrate an acceptable level of pain as evidenced by a pain score of 3/10 and improvement in ability to perform activities of daily living to be achieved by 11/16/22. Pain No Patient/caregiver will teach back high risk medication side effect and precaution education High Risk Medications No Manage discharge planning Description: Patient/caregiver will verbalize understanding of ongoing discharge plan provided related to disease management, arrangements for outpatient and/or community services, obtaining medications, supplies, and DME, as needed throughout certification period. Discharge No Improved Aerobic Capacity Description: LTG: Patient will demonstrate improved aerobic capacity to meet functional goals as evidenced by Rate of Percieved Exertion (RPE) of 2/10 during stair negotiation, to be achieved by 10/04/21. PT Impaired Aerobic Capacity No Improved Muscle Performance and/or ROM Description: LTG: Patient will demonstrate improved muscle performance to meet functional goals as evidenced by ability to tolerate 15 reps of each ex with HEP in order to have needed strength for negotiating home entry steps. To be achieved by 10/04/22 LTG: Patient and/or caregiver will verbalize/demonstrate independence with home exercise program, to improve functional mobility, to be achieved by 10/04/22 PT Impaired muscle performance and/or ROM No Improved Transfers Description: STG: Patient will demonstrate safe transfers to/from bed, chair, toilet and couch independently, to be achieved by 10/04/21. LTG: Patient will demonstrate safe transfers to/from shower/tub and car independently, to be achieved by 10/04/21. PT Impaired mobility No Improved Bed Mobility Description: STG: Patient will demonstrate improved bed mobility independently to be achieved by 09/27/22. PT Impaired mobility No Improved Gait Description: LTG: Patient will demonstrate improved gait ability as evidenced by ambulation 250 feet with single point cane independently, to return to safe community ambulation, in order to safely walk into medical appointments, to be achieved by 10/04/21. PT Impaired gait No Manage Orthopedic Condition Description: Improve patient and/or caregiver understanding of post surgical and/or non-surgical orthopedic intervention management as evidenced by patient and/or caregiver able to verbalize, demonstrate, and teach back instruction, to be achieved by 10/04/21. PT Orthopedic Condition No Demonstrate understanding of education Description: Patient and/or caregiver will understand educational instruction to be achieved by 10/04/21. PT Learning Assessment No Interventions Intervention Associated Problem/Goal Status Variance Visit Notes Medication Education Description: Evaluate/instruct patient/caregiver on obtaining, storing, identifying and administering ordered medications as well as keeping accurate medication list in the home and adhereing to medication schedule Problem:Medication Education Goal:Patient/caregive r will demonstrate ability to obtain, store, identify and administer ordered medications, keep accurate medication list in home, and adhere to medication schedule Completed Patient instructed on importance of keeping accurate medication list in home, adhering to medication schedule and med diary and reminders. SPO2 Description: Notify Dr. Patricia if pulse ox is <92% at rest. Problem:Physician Specific Parameters Goal:Patient to maintain parameters within physician-specified ranges throughout certification period Completed Instruct on individual fall risk factors and strategies to prevent falls and injuries caused by falls. Problem:Risk for Falls Goal:Manage Risk for falls Completed PT: Patient instructed on Eliminating Environmental Hazards: Wear supportive shoes or non-skid socks and Keep frequently used items within reach Managing Impaired Functional Mobility: Use assistive device(s): front wheeled walker Managing Pain Instruct on pain and instruct on strategies to control pain Problem:Pain Goal:Manage Pain Completed patient instructed on techniques to control pain including Pharmacological measures and Non-Pharmacological measures; rest, positioning/elevation, mobility/therapeutic exercise, use of DME/assistive devices and use of thermal modalities, apply ice to affected area for the following prescribed frequency: 20 min on/off. Opioids- educated on high risk medication Problem:High Risk Medications Goal:Patient/caregive r will teach back high risk medication side effect and precaution education Completed patient educated on taking medication(s) as prescribed by provider. Do not stop medication or alter doses without speaking with your provider. Discuss medication effectiveness or side effect concerns with your provider and home care team. Only take opioids as prescribed, do not share your medications, and take proper precautions in storing and properly disposing of opioids once no longer needed. Possible side effects of opioid medication including sedation, decreased rate of breathing, and constipation. Report over sedation to prescribing provider and practice deep breathing techniques every hour while awake. Prevent constipation by increasing water and fiber intake, increasing activity as tolerated, and use stool softener(s) as prescribed. Instruct on ongoing discharge plan Problem:Discharge Goal:Manage discharge planning Completed Ongoing Discharge plan: Discharge plan discussed with patient including frequency and duration for home PT and plan for transition to: outpatient therapy. Physical Therapy Aerobic Capacity Training Problem:PT Impaired Aerobic Capacity Goal:Improved Aerobic Capacity Completed patient instructed on utilization of the Rate of Percieved Exertion (RPE) scale, to not exceed 3-6/10 indicating moderate to heavy intensity of activity. Developed, implemented, and instructed patient on physical therapy interventions completing 20 minutes of paced and physiologically monitored activity. Physical Therapy Therapeutic Exercises Problem:PT Impaired muscle performance and/or ROM Goal:Improved Muscle Performance and/or ROM Completed patient instructed on strengthening and range of motion exercises including AP, QS, GS, supine HS, SAQ, supine hip abd added in SLR, seated HS, and LAQ with verbal, visual and written cues for proper technique, breathing and pacing. patient instructed to perform home exercise program 3-4x/day which included above. Physical Therapy Transfer Training Problem:PT Impaired mobility Goal:Improved Transfers Completed Transfer training and instruction to patient on safe transfers to and from bed, chair and couch with supervision and verbal cues for proper hand placement to safely assist. Physical Therapy Bed Mobility Training Problem:PT Impaired mobility Goal:Improved Bed Mobility Completed Supervision bed mobility. Physical Therapy Gait Training Problem:PT Impaired gait Goal:Improved Gait Completed Gait training and instruction to patient on safe ambulation with front wheeled walker for 120 feet with supervision, with verbal cues for corrections of gait deviations including posture and unequal step length. Instruct on orthopedic precautions and weight bearing restrictions Description: Orthopedic precautions including right total knee: no crossing legs, no knee flexed over pillow at rest, no kneeling, no squatting and no twisting. Weight bearing restrictions include: WBAT of involved extremity. Problem:PT Orthopedic Condition Goal:Manage Orthopedic Condition Completed patient instructed on orthopedic precautions. Instruct on management of edema Problem:PT Orthopedic Condition Goal:Manage Orthopedic Condition Completed Instruct patient on management of edema including elevation of RLE above the level of the heart, ice and benefits of activity. Instruct on self-management of post surgical and/or non-surgical orthopedic intervention Problem:PT Orthopedic Condition Goal:Manage Orthopedic Condition Completed patient instructed on managagement of orthopedic condition, eating foods with high protein, signs and symptoms of infection, signs and symptoms of DVT/PE and instructed on when to call provider. Instruct and educate on knowledge deficits Problem:PT Learning Assessment Goal:Demonstrate understanding of education Completed patient verbalize and/or demonstrate understanding of physical therapy education including orthopedic condition management, surgical precautions, pain management, nutrition, fall prevention strategies, functional activity and home exercise program. Education methods include: verbal cues, written instructions and teach back. Further education required to improve knowledge and compliance with orthopedic condition management, surgical precautions, pain management, nutrition, fall prevention strategies, functional activity and home exercise program. [facility] Visit Details Visit Type -PT ROUTINE Discipline -Physical Therapy Problems Problem Description Start Date Status Goals Interve ntions Sepsis Disciplines: Skilled Services 09/18/2022 Active 1 goal linked to scheduled/document ed intervention 1 goal intervention scheduled/document ed in this visit Physician Specific Parameters Disciplines: Skilled Services 09/18/2022 Active 1 goal linked to scheduled/document ed intervention 1 goal intervention scheduled/document ed in this visit Risk for Falls Disciplines: Skilled Services 09/18/2022 Active 1 goal linked to scheduled/document ed intervention 1 goal intervention scheduled/document ed in this visit Pain Disciplines: Skilled Services 09/18/2022 Active 1 goal linked to scheduled/document ed intervention 1 goal intervention scheduled/document ed in this visit Diabetic Foot Care Disciplines: Skilled Services 09/18/2022 Active 1 goal linked to scheduled/document ed intervention 1 goal intervention scheduled/document ed in this visit Discharge Disciplines: Skilled Services 09/18/2022 Active 1 goal linked to scheduled/document ed intervention 1 goal intervention scheduled/document ed in this visit PT Impaired muscle performance and/or ROM Disciplines: PT 09/18/2022 Active 1 goal linked to scheduled/document ed intervention 1 goal intervention scheduled/document ed in this visit PT Impaired mobility Disciplines: PT 09/18/2022 Active 2 goals linked to scheduled/document ed interventions 2 goal interventions scheduled/document ed in this visit PT Impaired gait Disciplines: PT 09/18/2022 Active 1 goal linked to scheduled/document ed intervention 1 goal intervention scheduled/document ed in this visit PT Impaired balance Disciplines: PT 09/18/2022 Active 1 goal linked to scheduled/document ed intervention 1 goal intervention scheduled/document ed in this visit PT Orthopedic Condition Disciplines: PT 09/18/2022 Active 1 goal linked to scheduled/document ed intervention 2 goal interventions scheduled/document ed in this visit PT Learning Assessment Disciplines: PT 09/18/2022 Active 1 goal linked to scheduled/document ed intervention 1 goal intervention scheduled/document ed in this visit Goals Goal Associated Problem Outcome Goal Met? Visit Notes Patient/caregiver will be able to identify and report symptoms of sepsis Description: Patient/caregiver will be able to identify signs/symptoms of sepsis infection and will verbalize actions to take if suspected by 11/16/22. Sepsis No Patient to maintain parameters within physician-specified ranges throughout certification period Physician Specific Parameters No Manage Risk for falls Description: Patient/caregiver will verbalize knowledge of individualized fall prevention strategies by 11/16/22. Risk for Falls No Manage Pain Description: Patient/caregiver will verbalize knowledge and understanding of appropriate techniques to control pain, including pain medication and non-pharmacological techniques. Patient will verbalize or demonstrate an acceptable level of pain as evidenced by a pain score of 3/10 and improvement in ability to perform activities of daily living to be achieved by 11/16/22. Pain No Manage diabetic foot care Description: Patient/caregiver will demonstrate basic understanding of and compliance with diabetic self-care management as evidenced by verbalizing purpose of daily foot care and assessment by 11/16/22. Diabetic Foot Care No Manage discharge planning Description: Patient/caregiver will verbalize understanding of ongoing discharge plan provided related to disease management, arrangements for outpatient and/or community services, obtaining medications, supplies, and DME, as needed throughout certification period. Discharge No Improved Muscle Performance and/or ROM Description: LTG: Patient will demonstrate improved muscle performance to meet functional goals as evidenced by ability to tolerate 15 reps of each ex with HEP in order to have needed strength for negotiating home entry steps. To be achieved by 10/04/22 LTG: Patient and/or caregiver will verbalize/demonstrate independence with home exercise program, to improve functional mobility, to be achieved by 10/04/22 PT Impaired muscle performance and/or ROM No Improved Transfers Description: STG: Patient will demonstrate safe transfers to/from bed, chair, toilet and couch independently, to be achieved by 10/04/21. LTG: Patient will demonstrate safe transfers to/from shower/tub and car independently, to be achieved by 10/04/21. PT Impaired mobility No Improved Bed Mobility Description: STG: Patient will demonstrate improved bed mobility independently to be achieved by 09/27/22. PT Impaired mobility No Improved Gait Description: LTG: Patient will demonstrate improved gait ability as evidenced by ambulation 250 feet with single point cane independently, to return to safe community ambulation, in order to safely walk into medical appointments, to be achieved by 10/04/21. PT Impaired gait No Improved Balance Description: LTG: Patient will demonstrate improved standing balance to meet functional goals as evidenced by TUG score of 14 sec to be achieved by 10/04/21. PT Impaired balance No Manage Orthopedic Condition Description: Improve patient and/or caregiver understanding of post surgical and/or non-surgical orthopedic intervention management as evidenced by patient and/or caregiver able to verbalize, demonstrate, and teach back instruction, to be achieved by 10/04/21. PT Orthopedic Condition No Demonstrate understanding of education Description: Patient and/or caregiver will understand educational instruction to be achieved by 10/04/21. PT Learning Assessment No Interventions Intervention Associated Problem/Goal Status Variance Visit Notes Risk of Sepsis Description: Patient is at risk for sepsis. Monitor closely for s/s of sepsis. Problem:Sepsis Goal:Patient/caregive r will be able to identify and report symptoms of sepsis Completed SPO2 Description: Notify Dr. Patricia if pulse ox is <92% at rest. Problem:Physician Specific Parameters Goal:Patient to maintain parameters within physician-specified ranges throughout certification period Completed Instruct on individual fall risk factors and strategies to prevent falls and injuries caused by falls. Problem:Risk for Falls Goal:Manage Risk for falls Completed PT: Patient instructed on Eliminating Environmental Hazards: Keep pathways clear, Keep pets out of pathways, Remove unsafe rugs and Move furniture from pathways Managing Impaired Functional Mobility: Use assistive device(s): front wheeled walker Managing Pain Instruct on pain and instruct on strategies to control pain Problem:Pain Goal:Manage Pain Completed patient instructed on techniques to control pain including Pharmacological measures and Non-Pharmacological measures; rest, positioning/elevation and use of thermal modalities, apply ice to affected area. Monitor lower extremities for skin lesions and educate on proper foot care Problem:Diabetic Foot Care Goal:Manage diabetic foot care Completed patient instructed on diabetic foot care including daily skin inspection and wearing proper footwear/avoiding going barefoot. Instruct on ongoing discharge plan Problem:Discharge Goal:Manage discharge planning Completed Ongoing Discharge plan: Discharge plan discussed with patient including frequency and duration for home PT and plan for transition to: outpatient therapy. Physical Therapy Therapeutic Exercises Problem:PT Impaired muscle performance and/or ROM Goal:Improved Muscle Performance and/or ROM Completed patient instructed on strengthening and range of motion exercises including AP, QS, GS, supine HS, SAQ, supine hip abd added in SLR, seated HS, and LAQ with verbal, visual and written cues for proper technique, breathing and pacing. patient instructed to perform home exercise program 3-4x/day which included above. Physical Therapy Transfer Training Problem:PT Impaired mobility Goal:Improved Transfers Completed Transfer training and instruction to patient on safe transfers to and from bed, chair, toilet and couch with supervision and verbal cues for technique . Physical Therapy Bed Mobility Training Problem:PT Impaired mobility Goal:Improved Bed Mobility Completed Bed mobility training and instruction to patient, including supine<>sit with supervision and verbal cues for technique . { Physical Therapy Gait Training Problem:PT Impaired gait Goal:Improved Gait Completed Gait training and instruction to patient on safe ambulation with front wheeled walker for 40' x 4 feet with supervision, with verbal cues for corrections of gait deviations including technique . Physical Therapy Balance Training Problem:PT Impaired balance Goal:Improved Balance Completed Developed, implemented, and instructed patient on standing balance exercises including side stepping. Instruct on management of edema Problem:PT Orthopedic Condition Goal:Manage Orthopedic Condition Completed Instruct patient on management of edema including elevation of RLE above the level of the heart and ice. Instruct on self-management of post surgical and/or non-surgical orthopedic intervention Problem:PT Orthopedic Condition Goal:Manage Orthopedic Condition Completed patient instructed on managagement of orthopedic condition, staying well hydrated, eating foods with high protein, signs and symptoms of infection, signs and symptoms of DVT/PE, follow provider guidance for showering and instructed on when to call provider. Instruct and educate on knowledge deficits Problem:PT Learning Assessment Goal:Demonstrate understanding of education Completed patient verbalize and/or demonstrate understanding of physical therapy education including orthopedic condition management, surgical precautions, pain management, fall prevention strategies, home safety, functional activity and home exercise program. Education methods include: verbal cues. Further education required to improve knowledge and compliance with fall prevention strategies, home safety, functional activity and home exercise program. [facility] Visit Details Visit Type -PT AGENCY DC W V ISIT Discipline -Physical Therapy Problems Problem Description Start Date Status Goals Interve ntions Medication Education Disciplines: Skilled Services 09/18/2022 Resolved on 10/02/2022 1 goal linked to scheduled/document ed intervention Mental Health Disciplines: Skilled Services 09/18/2022 Resolved on 10/02/2022 1 goal linked to scheduled/document ed intervention Sepsis Disciplines: Skilled Services 09/18/2022 Resolved on 10/02/2022 1 goal linked to scheduled/document ed intervention 1 goal intervention scheduled/document ed in this visit Physician Specific Parameters Disciplines: Skilled Services 09/18/2022 Resolved on 10/02/2022 1 goal linked to scheduled/document ed intervention 1 goal intervention scheduled/document ed in this visit Risk for Falls Disciplines: Skilled Services 09/18/2022 Resolved on 10/02/2022 1 goal linked to scheduled/document ed intervention 1 goal intervention scheduled/document ed in this visit Pain Disciplines: Skilled Services 09/18/2022 Resolved on 10/02/2022 1 goal linked to scheduled/document ed intervention 1 goal intervention scheduled/document ed in this visit Diabetic Foot Care Disciplines: Skilled Services 09/18/2022 Resolved on 10/02/2022 1 goal linked to scheduled/document ed intervention 1 goal intervention scheduled/document ed in this visit High Risk Medications Disciplines: Skilled Services 09/18/2022 Resolved on 10/02/2022 1 goal linked to scheduled/document ed intervention Discharge Disciplines: Skilled Services 09/18/2022 Resolved on 10/02/2022 1 goal linked to scheduled/document ed intervention 1 goal intervention scheduled/document ed in this visit PT Impaired Aerobic Capacity Disciplines: PT 09/18/2022 Resolved on 10/02/2022 1 goal linked to scheduled/document ed intervention 1 goal intervention scheduled/document ed in this visit PT Impaired muscle performance and/or ROM Disciplines: PT 09/18/2022 Resolved on 10/02/2022 1 goal linked to scheduled/document ed intervention 1 goal intervention scheduled/document ed in this visit PT Impaired mobility Disciplines: PT 09/18/2022 Resolved on 10/02/2022 2 goals linked to scheduled/document ed interventions 2 goal interventions scheduled/document ed in this visit PT Impaired gait Disciplines: PT 09/18/2022 Resolved on 10/02/2022 2 goals linked to scheduled/document ed interventions 2 goal interventions scheduled/document ed in this visit PT Impaired balance Disciplines: PT 09/18/2022 Resolved on 10/02/2022 1 goal linked to scheduled/document ed intervention 1 goal intervention scheduled/document ed in this visit PT Orthopedic Condition Disciplines: PT 09/18/2022 Resolved on 10/02/2022 1 goal linked to scheduled/document ed intervention 3 goal interventions scheduled/document ed in this visit PT Learning Assessment Disciplines: PT 09/18/2022 Resolved on 10/02/2022 1 goal linked to scheduled/document ed intervention 1 goal intervention scheduled/document ed in this visit Goals Goal Associated Problem Outcome Goal Met? Visit Notes Patient/caregiver will demonstrate ability to obtain, store, identify and administer ordered medications, keep accurate medication list in home, and adhere to medication schedule Description: Patient/caregiver will demonstrate ability to obtain, store, identify and administer ordered medications, keep accurate medication list in home, and adhere to medication schedule by 11/16/22. Medication Education Completed Yes Improved management of mental health condition(s) Description: Patient/caregiver will teach back mental health symptom identification and management techniques by 11/16/22. Mental Health Completed Yes Patient/caregiver will be able to identify and report symptoms of sepsis Description: Patient/caregiver will be able to identify signs/symptoms of sepsis infection and will verbalize actions to take if suspected by 11/16/22. Sepsis Completed Yes Patient to maintain parameters within physician-specified ranges throughout certification period Physician Specific Parameters Completed Yes Manage Risk for falls Description: Patient/caregiver will verbalize knowledge of individualized fall prevention strategies by 11/16/22. Risk for Falls Completed Yes Manage Pain Description: Patient/caregiver will verbalize knowledge and understanding of appropriate techniques to control pain, including pain medication and non-pharmacological techniques. Patient will verbalize or demonstrate an acceptable level of pain as evidenced by a pain score of 3/10 and improvement in ability to perform activities of daily living to be achieved by 11/16/22. Pain Completed Yes Manage diabetic foot care Description: Patient/caregiver will demonstrate basic understanding of and compliance with diabetic self-care management as evidenced by verbalizing purpose of daily foot care and assessment by 11/16/22. Diabetic Foot Care Completed Yes Patient/caregiver will teach back high risk medication side effect and precaution education High Risk Medications Completed Yes Manage discharge planning Description: Patient/caregiver will verbalize understanding of ongoing discharge plan provided related to disease management, arrangements for outpatient and/or community services, obtaining medications, supplies, and DME, as needed throughout certification period. Discharge Completed Yes Improved Aerobic Capacity Description: LTG: Patient will demonstrate improved aerobic capacity to meet functional goals as evidenced by Rate of Percieved Exertion (RPE) of 2/10 during stair negotiation, to be achieved by 10/04/21. PT Impaired Aerobic Capacity Completed Yes Improved Muscle Performance and/or ROM Description: LTG: Patient will demonstrate improved muscle performance to meet functional goals as evidenced by ability to tolerate 15 reps of each ex with HEP in order to have needed strength for negotiating home entry steps. To be achieved by 10/04/22 LTG: Patient and/or caregiver will verbalize/demonstrate independence with home exercise program, to improve functional mobility, to be achieved by 10/04/22 PT Impaired muscle performance and/or ROM Completed Yes Improved Transfers Description: STG: Patient will demonstrate safe transfers to/from bed, chair, toilet and couch independently, to be achieved by 10/04/21. LTG: Patient will demonstrate safe transfers to/from shower/tub and car independently, to be achieved by 10/04/21. PT Impaired mobility Completed Yes Improved Bed Mobility Description: STG: Patient will demonstrate improved bed mobility independently to be achieved by 09/27/22. PT Impaired mobility Completed Yes Improved Stair Climbing Description: LTG: Patient will demonstrate improved stair negotiation as evidenced by ascend/descend 1 step in garage with cane independently, to safely exit home, to be achieved by 10/04/21. PT Impaired gait Completed Yes Improved Gait Description: LTG: Patient will demonstrate improved gait ability as evidenced by ambulation 250 feet with single point cane independently, to return to safe community ambulation, in order to safely walk into medical appointments, to be achieved by 10/04/21. PT Impaired gait Completed Yes Improved Balance Description: LTG: Patient will demonstrate improved standing balance to meet functional goals as evidenced by TUG score of 14 sec to be achieved by 10/04/21. PT Impaired balance Completed Yes Manage Orthopedic Condition Description: Improve patient and/or caregiver understanding of post surgical and/or non-surgical orthopedic intervention management as evidenced by patient and/or caregiver able to verbalize, demonstrate, and teach back instruction, to be achieved by 10/04/21. PT Orthopedic Condition Completed Yes Demonstrate understanding of education Description: Patient and/or caregiver will understand educational instruction to be achieved by 10/04/21. PT Learning Assessment Completed Yes Interventions Intervention Associated Problem/Goal Status Variance Visit Notes Risk of Sepsis Description: Patient is at risk for sepsis. Monitor closely for s/s of sepsis. Problem:Sepsis Goal:Patient/caregive r will be able to identify and report symptoms of sepsis Completed SPO2 Description: Notify Dr. Patricia if pulse ox is <92% at rest. Problem:Physician Specific Parameters Goal:Patient to maintain parameters within physician-specified ranges throughout certification period Completed Instruct on individual fall risk factors and strategies to prevent falls and injuries caused by falls. Problem:Risk for Falls Goal:Manage Risk for falls Completed PT: Patient instructed on Eliminating Environmental Hazards: Keep pathways clear, Keep pets out of pathways, Remove unsafe rugs and Move furniture from pathways Managing Impaired Functional Mobility: Use assistive device(s): front wheeled walker Managing Pain Instruct on pain and instruct on strategies to control pain Problem:Pain Goal:Manage Pain Completed patient instructed on techniques to control pain including Pharmacological measures and Non-Pharmacological measures; rest, positioning/elevation and use of thermal modalities, apply ice to affected area. Monitor lower extremities for skin lesions and educate on proper foot care Problem:Diabetic Foot Care Goal:Manage diabetic foot care Completed patient instructed on diabetic foot care including daily skin inspection and wearing proper footwear/avoiding going barefoot. Instruct on final discharge plan and deliver discharge instructions Problem:Discharge Goal:Manage discharge planning Completed Delivered Discharge plan: Discharge plan discussed with patient for plan for transition to: outpatient therapy Physical Therapy Aerobic Capacity Training Problem:PT Impaired Aerobic Capacity Goal:Improved Aerobic Capacity Completed patient instructed on utilization of the Rate of Percieved Exertion (RPE) scale, to not exceed 3-6/10 indicating moderate to heavy intensity of activity. Developed, implemented, and instructed patient on physical therapy interventions completing 5 minutes of continuous and paced activity. Physical Therapy Therapeutic Exercises Problem:PT Impaired muscle performance and/or ROM Goal:Improved Muscle Performance and/or ROM Completed patient instructed on strengthening and range of motion exercises including Supine : GS,QS,HS, HIPADD, HIP BD, HEEL SLIDES, SAQ, X 15 STANDING : HEEL RAISES, TOE RAISES , KNEE FLEX, HIP FLEX,X 10 supine passive knee ext x 3 min seated knee flexion to 105* with verbal cues for technique. patient instructed to perform home exercise program twice a day which included hourly ambulation . Physical Therapy Transfer Training Problem:PT Impaired mobility Goal:Improved Transfers Completed EDISON transfers with safe/proper technique Physical Therapy Bed Mobility Training Problem:PT Impaired mobility Goal:Improved Bed Mobility Completed EDISON bed mobility Physical Therapy Stair Training Problem:PT Impaired gait Goal:Improved Stair Climbing Completed up and down 1 flight with rail + cane with step together sequence Physical Therapy Gait Training Problem:PT Impaired gait Goal:Improved Gait Completed Indep amb with WW with steady recip pattern Physical Therapy Balance Training Problem:PT Impaired balance Goal:Improved Balance Completed Pt demonstrates improved dynamic standing balance as evidenced by a tug of 26 Instruct on orthopedic precautions and weight bearing restrictions Description: Orthopedic precautions including right total knee: no crossing legs, no knee flexed over pillow at rest, no kneeling, no squatting and no twisting. Weight bearing restrictions include: WBAT of involved extremity. Problem:PT Orthopedic Condition Goal:Manage Orthopedic Condition Completed patient instructed on orthopedic precautions. Instruct on management of edema Problem:PT Orthopedic Condition Goal:Manage Orthopedic Condition Completed Instruct patient on management of edema including elevation of RLE above the level of the heart and ice. Instruct on self-management of post surgical and/or non-surgical orthopedic intervention Problem:PT Orthopedic Condition Goal:Manage Orthopedic Condition Completed patient instructed on managagement of orthopedic condition, staying well hydrated, eating foods with high protein, signs and symptoms of infection, signs and symptoms of DVT/PE, follow provider guidance for showering and instructed on when to call provider. Instruct and educate on knowledge deficits Problem:PT Learning Assessment Goal:Demonstrate understanding of education Completed patient verbalize and/or demonstrate understanding of physical therapy education including orthopedic condition management, surgical precautions, pain management, fall prevention strategies, home safety, functional activity and home exercise program. Education methods include: verbal cues. [facility] No data available for this section [facility] Reason for referral (narrative)* Diagnostic Procedure Only (Routine) - Authorized Specialty Diagnoses / Procedures Referred By Contac t Referred To Contact US IMAGING Diagnoses Elevated liver enzymes Procedures US ABD RT UPPER QUADRANT US ABDOMINAL REAL TIME W/IMAGE LIMITED Christine Morgan APRN.CD REACTOR OPERATOR [address] [place] [address] Us Imaging Referral ID Status Reason Start Date Expiration Date Visits Requested Visits Authorized [id number] Authorized Auto-Generat ed Referral 07/30/2021 08/29/2022 1 1 [facility] for referral (narrative)* Diagnostic Procedure Only (Routine) - Closed Specialty Diagnoses / Procedures Referred By Contac t Referred To Contact US IMAGING Diagnoses Elevated liver enzymes Procedures US ABD RT UPPER QUADRANT US ABDOMINAL REAL TIME W/IMAGE LIMITED Christine Morgan APRN.CNP [address] [place] [address] Us Imaging Referral ID Status Reason Start Date Expiration Date V isits Requested Visits Authorized [id number] Closed Auto-Generate d Referral 07/30/2021 08/29/2022 1 1 [facility] for referral (narrative)* Diagnostic Procedure Only (Routine) - Closed Specialty Diagnoses / Procedures Referred By Contac t Referred To Contact XR IMAGING Diagnoses Chronic pain of right knee Procedures XR KNEE GENERAL 4V AP BOTH/PA BOTH/LAT/MERC RIGHT RADIOLOGIC EXAM KNEE COMPLETE 4/MORE VIEWS Delfin Kerr MD [address] [place] [address] Xr Imaging Referral ID Status Reason Start Date Expiration Date V isits Requested Visits Authorized [id number] Closed Auto-Generate d Referral 10/17/2021 11/16/2022 1 1 [facility] for referral (narrative)* Diagnostic Procedure Only (Routine) - Closed Specialty Diagnoses / Procedures Referred By Contac t Referred To Contact XR IMAGING Diagnoses Chronic pain of right knee Procedures XR KNEE GENERAL 4V AP BOTH/PA BOTH/LAT/MERC RIGHT RADIOLOGIC EXAM KNEE COMPLETE 4/MORE VIEWS Delfin Kerr MD [address] [place] [address] Xr Imaging Referral ID Status Reason Start Date Expiration Date V isits Requested Visits Authorized [id number] Closed Auto-Generate d Referral 10/17/2021 11/16/2022 1 1 [facility] for referral (narrative)* Diagnostic Procedure Only (Routine) - Closed Specialty Diagnoses / Procedures Referred By Contac t Referred To Contact XR IMAGING Diagnoses Chronic pain of right knee Procedures XR KNEE GENERAL 4V AP BOTH/PA BOTH/LAT/MERC RIGHT RADIOLOGIC EXAM KNEE COMPLETE 4/MORE VIEWS Kaylen Lindsey DO [address] [place] [address] Xr Imaging Referral ID Status Reason Start Date Expiration Date V isits Requested Visits Authorized [id number] Closed Auto-Generate d Referral 12/04/2021 01/03/2023 1 1 * Diagnostic Procedure Only (Routine) - Closed Specialty Diagnoses / Procedures Referred By Contac t Referred To Contact XR IMAGING Diagnoses Pain Procedures XR HIP GENERAL 3V PELV/AP/LAT RIGHT RADEX HIP UNILATERAL WITH PELVIS 2-3 VIEWS Kaylen Lindsey, [address] [place] [address] Xr Imaging Referral ID Status Reason Start Date Expiration Date V isits Requested Visits Authorized [id number] Closed Auto-Generate d Referral 11/19/2021 12/19/2022 1 1 [facility] for referral (narrative)* Diagnostic Procedure Only (Routine) - Closed Specialty Diagnoses / Procedures Referred By Contac t Referred To Contact XR IMAGING Diagnoses Hip fracture requiring operative repair, right, closed, initial encounter (HCC) Procedures XR HIP GENERAL 3V PELV/AP/LAT RIGHT RADEX HIP UNILATERAL WITH PELVIS 2-3 VIEWS Kaylen Lindsey DO [address] [place] [address] Xr Imaging Referral ID Status Reason Start Date Expiration Date V isits Requested Visits Authorized [id number] Closed Auto-Generate d Referral 12/26/2021 01/25/2023 1 1 [facility] for referral (narrative)* Diagnostic Procedure Only (Routine) - Authorized Specialty Diagnoses / Procedures Referred By Contac t Referred To Contact BR IMAGING Diagnoses Inconclusive mammogram Procedures US BREAST LTD RT US BREAST UNI REAL TIME WITH IMAGE LIMITED Christine Morgan, KULWANT.CD REACTOR OPERATOR [address] [place] [address] Br Imaging [address] [place] [address] Referral ID Status Reason Start Date Expiration Date Visits Requested Visits Authorized [id number] Authorized Auto-Generat ed Referral 03/09/2023 1 1 * Diagnostic Procedure Only (Routine) - Authorized Specialty Diagnoses / Procedures [facility] Diagnoses Inconclusive mammogram Procedures TONY DIAGNOSTIC LT DIAGNOSTIC MAMMOGRAPHY COMPUTER-AIDED DETCJ [facility] Christine Morgan APRN.CNP [address] [place] [address] Br Imaging [address] [place] [address] Referral ID Status Reason Start Date Expiration Date Visits Requested Visits Authorized [id number] Authorized Auto-Generat ed Referral 2 03/09/2023 1 1 [facility] for referral (narrative)* Outpatient Procedure (Routine) - Authorized Specialty Diagnoses / Procedures Referred By [facility] t Referred To Contact [facility] Diagnoses History of colonic polyps Procedures COLONOSCOPY SCREENING COLONOSCOPY FLX DX W/COLLJ SPEC WHEN PFRMD Dionna Fong PA-C [address] [place] [address] [facility] [address] [place] [id number] Referral ID Status Reason Start Date Expiration Date Visits Requested Visits Authorized [id number] Authorized Auto-Generat ed Referral 2 02/12/2023 1 1 * Outpatient Procedure (Routine) - Authorized Specialty Diagnoses / Procedures Referred By [facility] t Referred To Contact [facility] Diagnoses History of anemia Gastritis without bleeding, unspecified chronicity, unspecified gastritis type Procedures EGD DIAGNOSTIC ESOPHAGOGASTRODUODENOSC OPY TRANSORAL DIAGNOSTIC Dionna Fong PA-C [address] [place] [address] [facility] [address] [place] [id number] Referral ID Status Reason Start Date Expiration Date Visits Requested Visits Authorized [id number] Authorized Auto-Generat ed Referral 11/23/02/12/2023 1 1 [facility] for referral (narrative)* Diagnostic Procedure Only (Routine) - Pending Review Specialty Diagnoses / Procedures Referred By Contac t Referred To Contact XR IMAGING Diagnoses Pain in right hip Procedures XR HIP 2V AP/LAT RIGHT (AK,FL,ME) RADEX HIP UNILATERAL WITH PELVIS 2-3 VIEWS Rafi Fox APRN.CNP [address] [place] [address] Xr Imaging Referral ID Status Reason Start Date Expiration Date Visits Requested Visits Authorized [id number] Pending Review Auto-Generat ed Referral 07/15/2022 08/13/2023 1 1 [facility] for referral (narrative)* Diagnostic Procedure Only (Routine) - Authorized Specialty Diagnoses / Procedures Referred By Contac t Referred To Contact XR IMAGING Diagnoses Chronic pain of right knee Procedures XR KNEE POST OP 3V AP/LAT/MERCHANT RIGHT RADIOLOGIC EXAMINATION KNEE 3 VIEWS Rafi Fox APRN.CD REACTOR OPERATOR [address] [place] [address] Xr Imaging Referral ID Status Reason Start Date Expiration Date Visits Requested Visits Authorized [id number] Authorized Auto-Generat ed Referral 09/25/2022 10/25/2023 1 1 [facility] for referral (narrative)* Diagnostic Procedure Only (Urgent) - Closed Specialty Diagnoses / Procedures Referred By Contac t Referred To Contact US IMAGING Diagnoses Right calf pain Status post right knee replacement Procedures US DVT LOWER RIGHT DUP-SCAN XTR VEINS UNILATERAL/LIMITED STUDY Rafi Fox APRN.CNP [address] [place] [address] Us Imaging Referral ID Status Reason Start Date Expiration Date V isits Requested Visits Authorized [id number] Closed Auto-Generate d Referral 09/26/2022 10/26/2023 1 1 [facility] for referral (narrative)* Diagnostic Procedure Only (Routine) - Pending Review Specialty Diagnoses / Procedures Referred By Contac t Referred To Contact XR IMAGING Diagnoses Chronic pain of right knee Procedures XR KNEE POST OP 3V AP/LAT/MERCHANT RIGHT RADIOLOGIC EXAMINATION KNEE 3 VIEWS Rafi Fox APRN.CD REACTOR OPERATOR [address] [address] [place] [address] Referral ID Status Reason Start Date Expiration Date Visits Requested Visits Authorized [id number] Pending Review Auto-Generat ed Referral 11/17/2022 12/17/2023 1 1 [facility] for referral (narrative)* Diagnostic Procedure Only (Routine) - Closed Specialty Diagnoses / Procedures Referred By Contac t Referred To Contact BR IMAGING Diagnoses Encounter for screening mammogram for breast cancer Procedures TONY SCREENING SCREENING MAMMOGRAPHY BI 2-VIEW BREAST INC CAD Christine Morgan APRN.CD REACTOR OPERATOR [address] [place] [address] [facility] [address] [place] [address] Referral ID Status Reason Start Date Expiration Date V isits Requested Visits Authorized [id number] Closed Auto-Generate d Referral 01/29/2022 02/28/2023 1 1 [facility] for referral (narrative)* Diagnostic Procedure Only (Urgent) - Closed Specialty Diagnoses / Procedures Referred By Contac t Referred To Contact US IMAGING Diagnoses Right calf pain Status post right knee replacement Procedures US DVT LOWER RIGHT DUP-SCAN XTR VEINS UNILATERAL/LIMITED STUDY Rafi Fox APRN.CD REACTOR OPERATOR [address] [address] [place] [address] Referral ID Status Reason Start Date Expiration Date V isits Requested Visits Authorized [id number] Closed Auto-Generate d Referral 09/26/2022 10/26/2023 1 1 [facility] for referral (narrative)* Outpatient Procedure (Routine) - Closed Specialty Diagnoses / Procedures Referred By Venessa t Referred To Contact [facility] Diagnoses History of anemia Gastritis without bleeding, unspecified chronicity, unspecified gastritis type Procedures EGD DIAGNOSTIC ESOPHAGOGASTRODUODENOSC OPY TRANSORAL DIAGNOSTIC Dionna Fong PA-C [address] [place] [address] [facility] [address] [place] [address] Referral ID Status Reason Start Date Expiration Date V isits Requested Visits Authorized [id number] Closed Auto-Generate d Referral 02/12/2022 02/12/2023 1 1 [facility] for referral (narrative)* Diagnostic Procedure Only (Routine) - Pending Review Specialty Diagnoses / Procedures Referred By Venessa bryant Referred To Contact [facility] Diagnoses Pain in right wrist Procedures XR WRIST GENERAL 3V PA/LAT/OBL RIGHT RADEX WRIST COMPLETE MINIMUM 3 VIEWS Nicole Coronado PA-C [address] [place] [address] [place] [address] Referral ID Status Reason Start Date Expiration Date Visits Requested Visits Authorized [id number] Pending Review Auto-Generat ed Referral 3 03/05/2024 1 1 [facility] for referral (narrative)* Diagnostic Procedure Only (Routine) - Pending Review Specialty Diagnoses / Procedures Referred By Venessa t Referred To Contact [facility] Diagnoses Encounter for screening mammogram for breast cancer Procedures TONY SCREENING SCREENING MAMMOGRAPHY BI 2-VIEW BREAST INC CAD Christine Morgan, OLVIN [address] [place] [address] [facility] [address] [place] [address] Referral ID Status Reason Start Date Expiration Date Visits Requested Visits Authorized [id number] Pending Review Auto-Generat ed Referral 04/09/2024 1 1 [facility] for referral (narrative)* Diagnostic Procedure Only (Routine) - Closed Specialty Diagnoses / Procedures Referred By Contac t Referred To Contact XR IMAGING Diagnoses Contusion of fifth toe Procedures XR TOE AP/LAT/OBL RIGHT RADEX TOE MINIMUM 2 VIEWS Gely Sandoval, DO [address] [place] [address] [place] [address] Referral ID Status Reason Start Date Expiration Date V isits Requested Visits Authorized [id number] Closed Auto-Generate d Referral 09/12/2023 10/11/2024 1 1 [facility] for referral (narrative)* Diagnostic Procedure Only (Routine) - Closed Specialty Diagnoses / Procedures Referred By Contac t Referred To Contact XR IMAGING Diagnoses Fall, initial encounter Pain of right hip Procedures XR HIP GENERAL 3V PELV/AP/LAT RIGHT RADEX HIP UNILATERAL WITH PELVIS 2-3 VIEWS Katerine Rodas Jr., PHOTOGRAPHIC INTELLIGENCE OFFICER.CD REACTOR OPERATOR [address] [place] [address] [place] [address] Referral ID Status Reason Start Date Expiration Date V isits Requested Visits Authorized [id number] Closed Auto-Generate d Referral 10/11/2023 11/09/2024 1 1 * Diagnostic Procedure Only (Routine) - Closed Specialty Diagnoses / Procedures Referred By Contac t Referred To Contact XR IMAGING Diagnoses Fall, initial encounter Rib pain on right side Procedures XR RIBS/CHEST 3V AP RIB/OBLS/CXR RIGHT RADEX RIBS UNI W/POSTEROANT CH MINIMUM 3 VIEWS Katerine Rodas Jr., PHOTOGRAPHIC INTELLIGENCE OFFICER.CD REACTOR OPERATOR [address] [place] [address] [place] [address] Referral ID Status Reason Start Date Expiration Date V isits Requested Visits Authorized [id number] Closed Auto-Generate d Referral 10/11/2023 11/09/2024 1 1 [facility] for referral (narrative)* Diagnostic Procedure Only (Routine) - New Request Specialty Diagnoses / Procedures Referred By Contac t Referred To Contact XR IMAGING Diagnoses Pelvic pain Procedures XR PELVIS 1V LATERAL RADIOLOGIC EXAMINATION PELVIS 1/2 VIEWS Sindy Mcgregor MD [address] [place] [address] [place] [address] Referral ID Status Reason Start Date Expiration Date Visits Requested Visits Authorized [id number] New Request Auto-Generat ed Referral 10/06/2023 11/04/2024 1 1 * Diagnostic Procedure Only (Routine) - New Request Specialty Diagnoses / Procedures Referred By Contac t Referred To Contact XR IMAGING Diagnoses Pelvic pain Procedures XR PELVIS 1V AP RADIOLOGIC EXAMINATION PELVIS 1/2 VIEWS Sindy Mcgregor MD [address] [place] [address] [place] [address] Referral ID Status Reason Start Date Expiration Date Visits Requested Visits Authorized [id number] New Request Auto-Generat ed Referral 10/06/2023 11/04/2024 1 1 [facility] for referral (narrative)* Diagnostic Procedure Only (Routine) - Closed Specialty Diagnoses / Procedures Referred By Contac t Referred To Contact XR IMAGING Diagnoses Contusion of fifth toe Procedures XR TOE AP/LAT/OBL RIGHT RADEX TOE MINIMUM 2 VIEWS Gely Sandoval, DO [address] [place] [address] [place] [address] Referral ID Status Reason Start Date Expiration Date V isits Requested Visits Authorized [id number] Closed Auto-Generate d Referral 09/12/2023 10/11/2024 1 1 [facility] for referral (narrative)* Diagnostic Procedure Only (Routine) - Closed Specialty Diagnoses / Procedures Referred By Contac t Referred To Contact XR IMAGING Diagnoses Fall, initial encounter Pain of right hip Procedures XR HIP GENERAL 3V PELV/AP/LAT RIGHT RADEX HIP UNILATERAL WITH PELVIS 2-3 VIEWS Katerine Rodas Jr., PHOTOGRAPHIC INTELLIGENCE OFFICER.CD REACTOR OPERATOR [address] [place] [address] [place] [address] Referral ID Status Reason Start Date Expiration Date V isits Requested Visits Authorized [id number] Closed Auto-Generate d Referral 10/11/2023 11/09/2024 1 1 Electronically signed by Katerine Rodas Jr., PHOTOGRAPHIC INTELLIGENCE OFFICER.CD REACTOR OPERATOR at 10/11/2023 5:14 PM EDT * Diagnostic Procedure Only (Routine) - Closed Specialty Diagnoses / Procedures Referred By Contac t Referred To Contact XR IMAGING Diagnoses Fall, initial encounter Rib pain on right side Procedures XR RIBS/CHEST 3V AP RIB/OBLS/CXR RIGHT RADEX RIBS UNI W/POSTEROANT CH MINIMUM 3 VIEWS Katerine Rodas Jr., PHOTOGRAPHIC INTELLIGENCE OFFICER.CD REACTOR OPERATOR [address] [place] [address] [place] [address] Referral ID Status Reason Start Date Expiration Date V isits Requested Visits Authorized [id number] Closed Auto-Generate d Referral 10/11/2023 11/09/2024 1 1 Electronically signed by Katerine Rodas Jr. PHOTOGRAPHIC INTELLIGENCE OFFICER.CD REACTOR OPERATOR at 10/11/2023 5:14 PM EDT [facility] for referral (narrative)* Diagnostic Procedure Only (Routine) - Closed Specialty Diagnoses / Procedures Referred By Contac t Referred To Contact XR IMAGING Diagnoses Chronic pain of right knee Procedures XR KNEE POST OP 3V AP/LAT/MERCHANT RIGHT RADIOLOGIC EXAMINATION KNEE 3 VIEWS Rafi Fox, PHOTOGRAPHIC INTELLIGENCE OFFICER.CD REACTOR OPERATOR [address] [place] [address] [place] [address] Referral ID Status Reason Start Date Expiration Date V isits Requested Visits Authorized [id number] Closed Auto-Generate d Referral 11/17/2022 12/17/2023 1 1 [facility] for referral (narrative)* Diagnostic Procedure Only (Routine) - Closed Specialty Diagnoses / Procedures Referred By Contac t Referred To Contact XR IMAGING Diagnoses Chronic pain of right knee Procedures XR KNEE POST OP 3V AP/LAT/MERCHANT RIGHT RADIOLOGIC EXAMINATION KNEE 3 VIEWS Rafi Fox APRN.CNP [address] [place] [address] [place] [address] Referral ID Status Reason Start Date Expiration Date V isits Requested Visits Authorized [id number] Closed Auto-Generate d Referral 09/25/2022 10/25/2023 1 1 [facility] for referral (narrative)* Diagnostic Procedure Only (Routine) - Closed Specialty Diagnoses / Procedures Referred By Contac t Referred To Contact XR IMAGING Diagnoses Pain in right hip Procedures XR HIP 2V AP/LAT RIGHT (AK,FL,ME) RADEX HIP UNILATERAL WITH PELVIS 2-3 VIEWS Rafi Fox APRN.CNP [address] [place] [address] [place] [address] Referral ID Status Reason Start Date Expiration Date V isits Requested Visits Authorized [id number] Closed Auto-Generate d Referral 07/15/2022 08/13/2023 1 1 [facility] for referral (narrative)* Diagnostic Procedure Only (Routine) - Closed Specialty Diagnoses / Procedures Referred By Contac t Referred To Contact XR IMAGING Diagnoses Hip fracture requiring operative repair, right, closed, initial encounter (HCC) Procedures XR HIP GENERAL 3V PELV/AP/LAT RIGHT RADEX HIP UNILATERAL WITH PELVIS 2-3 VIEWS Donavon Patricia MD [address] [address] [place] [address] Referral ID Status Reason Start Date Expiration Date V isits Requested Visits Authorized [id number] Closed Auto-Generate d Referral 04/22/2022 05/22/2023 1 1 [facility] for referral (narrative)* Diagnostic Procedure Only (Urgent) - Closed Specialty Diagnoses / Procedures Referred By Contac t Referred To Contact XR IMAGING Diagnoses Fall, initial encounter Procedures XR SHOULDER GENERAL 3V OR MORE AP/TRUE AP/OTHER RIGHT RADEX SHOULDER COMPLETE MINIMUM 2 VIEWS Willow Resendiz APRN.CD REACTOR OPERATOR [address] [place] [address] [place] [address] Referral ID Status Reason Start Date Expiration Date V isits Requested Visits Authorized [id number] Closed Auto-Generate d Referral 06/09/2022 07/09/2023 1 1 [facility] for referral (narrative)* Diagnostic Procedure Only (Routine) - New Request Specialty Diagnoses / Procedures Referred By Venessa t Referred To Contact [facility] Diagnoses Encounter for screening mammogram for breast cancer Procedures TONY SCREENING W PELON SCREENING DIGITAL BREAST TOMOSYNTHESIS BI SCREENING MAMMOGRAPHY BI 2-VIEW BREAST INC CAD Christine Morgan APRN.CD REACTOR OPERATOR [address] [place] [address] [facility] [address] [place] [address] Referral ID Status Reason Start Date Expiration Date Visits Requested Visits Authorized [id number] New Request Auto-Generat ed Referral 02/24/2024 03/25/2025 1 1 [facility] for referral (narrative)* Diagnostic Procedure Only (Routine) - Authorized Specialty Diagnoses / Procedures Referred By Contac t Referred To Contact XR IMAGING Diagnoses Right shoulder pain, unspecified chronicity Procedures XR SHOULDER GENERAL 3V OR MORE AP/TRUE AP/OTHER RIGHT RADEX SHOULDER COMPLETE MINIMUM 2 VIEWS Delfin Kerr MD [address] [place] [address] [place] [address] Referral ID Status Reason Start Date Expiration Date Visits Requested Visits Authorized [id number] Authorized Auto-Generat ed Referral 04/14/2025 1 1 [facility] for referral (narrative)* Diagnostic Procedure Only (Routine) - Closed Specialty Diagnoses / Procedures Referred By Contac t Referred To Contact XR IMAGING Diagnoses Right shoulder pain, unspecified chronicity Procedures XR SHOULDER GENERAL 3V OR MORE AP/TRUE AP/OTHER RIGHT RADEX SHOULDER COMPLETE MINIMUM 2 VIEWS Delfin Kerr MD [address] [place] [address] [place] [address] Referral ID Status Reason Start Date Expiration Date V isits Requested Visits Authorized [id number] Closed Auto-Generate d Referral 03/15/2024 04/14/2025 1 1 [facility] for referral (narrative)* Diagnostic Procedure Only (Routine) - New Request Specialty Diagnoses / Procedures Referred By Contac t Referred To Contact XR IMAGING Diagnoses Pain of ulnar side of wrist Procedures XR WRIST GENERAL 3V PA/LAT/OBL RIGHT RADEX WRIST COMPLETE MINIMUM 3 [place] [address] [place] [address] [place] [address] Referral ID Status Reason Start Date Expiration Date Visits Requested Visits Authorized [id number] New Request Auto-Generat ed Referral 04/14/2024 05/14/2025 1 1 [facility] for visit Narrative* Diagnostic Procedure Only (Routine) - Closed Specialty Diagnoses / Procedures Referred By Contac t Referred To Contact [facility] Diagnoses Elevated liver enzymes Procedures US ABD RT UPPER QUADRANT US ABDOMINAL REAL TIME W/IMAGE LIMITED Toi Morgany, PHOTOGRAPHIC INTELLIGENCE OFFICER.CD REACTOR OPERATOR [address] [place] [address] [facility] Referral ID Status Reason Start Date Expiration Date V isits Requested Visits Authorized [id number] Closed Auto-Generate d Referral 07/30/2021 08/29/2022 1 1 [facility] for visit Narrative* Diagnostic Procedure Only (Routine) - Closed Specialty Diagnoses / Procedures Referred By Contac t Referred To Contact XR IMAGING Diagnoses Chronic pain of right knee Procedures XR KNEE GENERAL 4V AP BOTH/PA BOTH/LAT/MERC RIGHT RADIOLOGIC EXAM KNEE COMPLETE 4/MORE VIEWS Delfin Kerr MD [address] [place] [address] X[facility] Imaging Referral ID Status Reason Start Date Expiration Date V isits Requested Visits Authorized [id number] Closed Auto-Generate d Referral 10/17/2021 11/16/2022 1 1 [facility] for visit Narrative* Diagnostic Procedure Only (Routine) - Closed Specialty Diagnoses / Procedures Referred By Contac t Referred To Contact XR IMAGING Diagnoses Pain Procedures XR HIP GENERAL 3V PELV/AP/LAT RIGHT RADEX HIP UNILATERAL WITH PELVIS 2-3 VIEWS Kaylen Lindsey DO [address] [place] [address] [facility] Referral ID Status Reason Start Date Expiration Date V isits Requested Visits Authorized [id number] Closed Auto-Generate d Referral 11/19/2021 12/19/2022 1 1 [facility] for visit Narrative* Diagnostic Procedure Only (Routine) - Closed Specialty Diagnoses / Procedures Referred By Contac t Referred To Contact XR IMAGING Diagnoses Hip fracture requiring operative repair, right, closed, initial encounter (HCC) Procedures XR HIP GENERAL 3V PELV/AP/LAT RIGHT RADEX HIP UNILATERAL WITH PELVIS 2-3 VIEWS Kaylen Lindsey DO [address] [place] [address] [facility] Referral ID Status Reason Start Date Expiration Date V isits Requested Visits Authorized [id number] Closed Auto-Generate d Referral 12/26/2021 01/25/2023 1 1 [facility] for visit Narrative* Diagnostic Procedure Only (Routine) - Closed Specialty Diagnoses / Procedures Referred By Mary Kayac t Referred To Contact [facility] Diagnoses Encounter for screening mammogram for breast cancer Procedures TONY SCREENING SCREENING MAMMOGRAPHY BI 2-VIEW BREAST INC CAD Christine Morgan, PHOTOGRAPHIC INTELLIGENCE OFFICER.CD REACTOR OPERATOR [address] [place] [address] [facility] [address] [place] [address] Referral ID Status Reason Start Date Expiration Date V isits Requested Visits Authorized [id number] Closed Auto-Generate d Referral 01/29/2022 02/28/2023 1 1 [facility] for visit Narrative* Outpatient Procedure (Routine) - Closed Specialty Diagnoses / Procedures Referred By Venessa t Referred To Contact [facility] Diagnoses History of colonic polyps Procedures COLONOSCOPY SCREENING COLONOSCOPY FLX DX W/COLLJ SPEC WHEN PFRMD Dionna Fong PA-C [address] [place] [address] [facility] [address] [place] [address] Referral ID Status Reason Start Date Expiration Date V isits Requested Visits Authorized [id number] Closed Auto-Generate d Referral 02/12/2022 02/12/2023 1 1 [facility] for visit Narrative* Diagnostic Procedure Only (Routine) - Closed Specialty Diagnoses / Procedures Referred By Venessa t Referred To Contact [facility] Diagnoses Inconclusive mammogram Procedures TONY DIAGNOSTIC LT DIAGNOSTIC MAMMOGRAPHY COMPUTER-AIDED DETCJ UNI Christine Morgan, PHOTOGRAPHIC INTELLIGENCE OFFICER.CD REACTOR OPERATOR [address] [place] [address] [facility] [address] [place] [address] Referral ID Status Reason Start Date Expiration Date V isits Requested Visits Authorized [id number] Closed Auto-Generate d Referral 02/07/2022 03/09/2023 1 1 [facility] for visit Narrative* Diagnostic Procedure Only (Routine) - Closed Specialty Diagnoses / Procedures Referred By Venessa t Referred To Contact XR IMAGING Diagnoses Pain in right wrist Procedures XR WRIST GENERAL 3V PA/LAT/OBL RIGHT RADEX WRIST COMPLETE MINIMUM 3 VIEWS Nicole Coronado PA-C [address] [place] [address] [place] [address] Referral ID Status Reason Start Date Expiration Date V isits Requested Visits Authorized [id number] Closed Auto-Generate d Referral 02/04/2023 03/05/2024 1 1 [facility] for visit Narrative* Diagnostic Procedure Only (Routine) - Closed Specialty Diagnoses / Procedures Referred By Contac t Referred To Contact XR IMAGING Diagnoses Contusion of fifth toe Procedures XR TOE AP/LAT/OBL RIGHT RADEX TOE MINIMUM 2 VIEWS Gely Sandoval, DO [address] [place] [address] [place] [address] Referral ID Status Reason Start Date Expiration Date V isits Requested Visits Authorized [id number] Closed Auto-Generate d Referral 09/12/2023 10/11/2024 1 1 [facility] for visit Narrative* Diagnostic Procedure Only (Routine) - Closed Specialty Diagnoses / Procedures Referred By Contac t Referred To Contact XR IMAGING Diagnoses Fall, initial encounter Pain of right hip Procedures XR HIP GENERAL 3V PELV/AP/LAT RIGHT RADEX HIP UNILATERAL WITH PELVIS 2-3 VIEWS Katerine Rodas Jr., PHOTOGRAPHIC INTELLIGENCE OFFICER.CD REACTOR OPERATOR [address] [place] [address] [place] [address] Referral ID Status Reason Start Date Expiration Date V isits Requested Visits Authorized [id number] Closed Auto-Generate d Referral 10/11/2023 11/09/2024 1 1 [facility] for visit Narrative* Diagnostic Procedure Only (Routine) - Closed Specialty Diagnoses / Procedures Referred By Contac t Referred To Contact XR IMAGING Diagnoses Chronic pain of right knee Procedures XR KNEE POST OP 3V AP/LAT/MERCHANT RIGHT RADIOLOGIC EXAMINATION KNEE 3 VIEWS Rafi Fox, PHOTOGRAPHIC INTELLIGENCE OFFICER.CD REACTOR OPERATOR [address] [address] [place] [address] Referral ID Status Reason Start Date Expiration Date V isits Requested Visits Authorized [id number] Closed Auto-Generate d Referral 11/17/2022 12/17/2023 1 1 [facility] for visit Narrative* Diagnostic Procedure Only (Routine) - Closed Specialty Diagnoses / Procedures Referred By Contac t Referred To Contact XR IMAGING Diagnoses Chronic pain of right knee Procedures XR KNEE POST OP 3V AP/LAT/MERCHANT RIGHT RADIOLOGIC EXAMINATION KNEE 3 VIEWS Rafi Fox APRN.CD REACTOR OPERATOR [address] [place] [address] [place] [address] Referral ID Status Reason Start Date Expiration Date V isits Requested Visits Authorized [id number] Closed Auto-Generate d Referral 09/25/2022 10/25/2023 1 1 [facility] for visit Narrative* Diagnostic Procedure Only (Routine) - Closed Specialty Diagnoses / Procedures Referred By Contac t Referred To Contact XR IMAGING Diagnoses Pain in right hip Procedures XR HIP 2V AP/LAT RIGHT (AK,FL,ME) RADEX HIP UNILATERAL WITH PELVIS 2-3 VIEWS Rafi Fox APRN.CD REACTOR OPERATOR [address] [place] [address] [place] [address] Referral ID Status Reason Start Date Expiration Date V isits Requested Visits Authorized [id number] Closed Auto-Generate d Referral 07/15/2022 08/13/2023 1 1 [facility] for visit Narrative* Diagnostic Procedure Only (Routine) - Closed Specialty Diagnoses / Procedures Referred By Contac t Referred To Contact XR IMAGING Diagnoses Hip fracture requiring operative repair, right, closed, initial encounter (HCC) Procedures XR HIP GENERAL 3V PELV/AP/LAT RIGHT RADEX HIP UNILATERAL WITH PELVIS 2-3 VIEWS Donavon Patricia MD [address] [address] [place] [address] Referral ID Status Reason Start Date Expiration Date V isits Requested Visits Authorized [id number] Closed Auto-Generate d Referral 04/22/2022 05/22/2023 1 1 [facility] for visit Narrative* Diagnostic Procedure Only (Urgent) - Closed Specialty Diagnoses / Procedures Referred By Contac t Referred To Contact XR IMAGING Diagnoses Fall, initial encounter Procedures XR SHOULDER GENERAL 3V OR MORE AP/TRUE AP/OTHER RIGHT RADEX SHOULDER COMPLETE MINIMUM 2 VIEWS Willow Resendiz APRN.CD REACTOR OPERATOR [address] [place] [address] [place] [address] Referral ID Status Reason Start Date Expiration Date V isits Requested Visits Authorized [id number] Closed Auto-Generate d Referral 06/09/2022 07/09/2023 1 1 [facility] for visit Narrative* Diagnostic Procedure Only (Urgent) - Closed Specialty Diagnoses / Procedures Referred By Contac t Referred To Contact XR IMAGING Diagnoses Rib pain on left side Status post fall Procedures XR RIBS/CHEST 3V AP RIB/OBLS/CXR LT X-RAY RIBS, CHEST 3+ VW Jada Patrick, DERECK [address] [place] [address] [place] [address] Referral ID Status Reason Start Date Expiration Date V isits Requested Visits Authorized [id number] Closed Auto-Generate d Referral 02/04/2021 03/06/2022 1 1 [facility] for visit Narrative* Diagnostic Procedure Only (Routine) - Closed Specialty Diagnoses / Procedures Referred By Contac t Referred To Contact XR IMAGING Diagnoses Pain Procedures XR FOOT GENERAL 3V AP/LAT/OBL RIGHT RADEX FOOT COMPLETE MINIMUM 3 VIEWS Anthony Abraham PA-C [address] [place] [address] [place] [address] Referral ID Status Reason Start Date Expiration Date V isits Requested Visits Authorized [id number] Closed Auto-Generate d Referral 01/08/2024 02/05/2025 1 1 [facility] for visit Narrative* Diagnostic Procedure Only (Routine) - Closed Specialty Diagnoses / Procedures Referred By Contac t Referred To Contact XR IMAGING Diagnoses Right shoulder pain, unspecified chronicity Procedures XR SHOULDER GENERAL 3V OR MORE AP/TRUE AP/OTHER RIGHT RADEX SHOULDER COMPLETE MINIMUM 2 VIEWS Delfin Kerr MD [address] [place] [address] [place] [address] Referral ID Status Reason Start Date Expiration Date V isits Requested Visits Authorized [id number] Closed Auto-Generate d Referral 03/15/2024 04/14/2025 1 1 [facility] for visit Narrative* Diagnostic Procedure Only (Routine) - Closed Specialty Diagnoses / Procedures Referred By Venessa bryant Referred To Contact [facility] Diagnoses Encounter for screening mammogram for breast cancer Procedures TONY SCREENING W PELON SCREENING DIGITAL BREAST TOMOSYNTHESIS BI SCREENING MAMMOGRAPHY BI 2-VIEW BREAST INC CAD Christine Morgan, PHOTOGRAPHIC INTELLIGENCE OFFICER.CD REACTOR OPERATOR [address] [place] [address] Phone: tel: fax: [facility] [address] [place] [address] Referral ID Status Reason Start Date Expiration Date V isits Requested Visits Authorized [id number] Closed Auto-Generate d Referral 02/24/2024 03/25/2025 1 1 [facility] for visit Narrative* Diagnostic Procedure Only (Routine) - Closed Specialty Diagnoses / Procedures Referred By Venessa bryant Referred To Contact XR IMAGING Diagnoses Right knee pain, unspecified chronicity Procedures XR KNEE POST OP 3V AP/LAT/MERCHANT RIGHT RADIOLOGIC EXAMINATION KNEE 3 VIEWS Rafi Fox, PHOTOGRAPHIC INTELLIGENCE OFFICER.CD REACTOR OPERATOR [address] [place] [address] Phone: tel: fax: [place] [address] Referral ID Status Reason Start Date Expiration Date V isits Requested Visits Authorized [id number] Closed Auto-Generate d Referral 08/10/2024 09/09/2025 1 1 [facility] for visit Narrative* Diagnostic Procedure Only (Routine) - Closed Specialty Diagnoses / Procedures Referred By Venessa bryant Referred To Contact [facility] Diagnoses Impingement syndrome of right shoulder Rotator cuff strain, right, subsequent encounter Procedures US SHOULDER RIGHT US COMPL JOINT R-T W/IMAGE DOCUMENTATION Delfin Kerr MD [address] [place] [address] Phone: tel: fax: [place] [address] Referral ID Status Reason Start Date Expiration Date V isits Requested Visits Authorized [id number] Closed Auto-Generate d Referral 08/02/2024 09/01/2025 1 1 [facility] for visit Narrative* MRI/CT (Routine) - Closed Specialty Diagnoses / Procedures Referred By Contac t Referred To Contact CT IMAGING Diagnoses Pancreatic cyst (HCC) Procedures CT PANCREAS W IVCON CT ABDOMEN W/CONTRAST Christine Morgan APRN.CNP [address] [place] [address] Phone: tel: fax: [place] [address] Referral ID Status Reason Start Date Expiration Date V isits Requested Visits Authorized [id number] Closed Auto-Generate d Referral 10/10/2024 03/22/2025 1 1 [facility] for visit Narrative* MRI/CT (Routine) - Closed Specialty Diagnoses / Procedures Referred By Contac t Referred To Contact CT IMAGING Diagnoses Memory loss Procedures CT BRAIN W IVCON CT HEAD/BRAIN W/CONTRAST MATERIAL [place] Stratton MD [address] [place] [address] Phone: tel: fax: [place] [address] Referral ID Status Reason Start Date Expiration Date V isits Requested Visits Authorized [id number] Closed Auto-Generate d Referral 10/14/2024 11/28/2024 1 1 [facility] Summary Purpose Family History No Family History Records FoundNo Family History Records FoundNo Family History Records FoundNo Family History Records FoundNo Family History Records Found No data available for this section No data available for this section No data available for this section No data available for this section No data available for this section No Family History Records FoundNo Family History Records FoundNo Family History Records FoundNo Family History Records FoundNo Family History Records FoundNo Family History Records FoundNo Family History Records Found Advance Directives No Advanced Directives Records FoundDocuments on File Type Date Recorded 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 Advance Directive(s) 12/14/2018 9:26 AM Date Activated Date Inactivated Comments 09/18/2022 8:33 PM Date Activated Date Inactivated Comments 07/11/2022 4:09 PM 09/15/2022 11:40 AM Date Activated Date Inactivated Comments 11/21/2021 1:21 PM 05/13/2022 9:16 AM Date Activated Date Inactivated Comments 11/17/2021 3:23 AM 11/19/2021 5:28 PM Question Answer Comments Full Code Order Discussed With: Patient Documents on File Type Date Recorded 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 Advance Directive(s) 04/02/2020 8:33 AM Advance Directive(s) 12/21/2018 6:37 PM Advance Directive(s) 12/14/2018 9:27 AM Advance Directive(s) 12/14/2018 9:26 AM Advance Directive(s) 12/01/2018 4:08 PM Advance Directive(s) 09/08/2018 6:54 AM Advance Directive(s) 06/29/2018 7:25 AM Advance Directive(s) 06/15/2018 10:47 AM Advance Directive(s) 05/21/2018 7:53 AM Advance Directive(s) 04/18/2018 2:37 PM Advance Directive(s) 11/05/2016 7:30 AM Advance Directive(s) 10/21/2015 8:37 PM Advance Directive(s) 10/21/2015 8:39 PM Documents on File Type Date Recorded 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 Advance Directive(s) 04/02/2020 8:33 AM Advance Directive(s) 12/21/2018 6:37 PM Advance Directive(s) 12/14/2018 9:27 AM Advance Directive(s) 12/14/2018 9:26 AM Advance Directive(s) 12/01/2018 4:08 PM Advance Directive(s) 09/08/2018 6:54 AM Advance Directive(s) 06/29/2018 7:25 AM Advance Directive(s) 06/15/2018 10:47 AM Advance Directive(s) 05/21/2018 7:53 AM Advance Directive(s) 04/18/2018 2:37 PM Advance Directive(s) 11/05/2016 7:30 AM Advance Directive(s) 10/21/2015 8:37 PM Advance Directive(s) 10/21/2015 8:39 PM Documents on File Type Date Recorded 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 Advance Directive(s) 12/14/2018 9:26 AM Latest Code Status on File Code Status Date Activated Date Inactivated Comments Full Code 11/17/2021 3:23 AM Full Code Order Discussed With: Patient Latest Code Status on File Code Status Date Activated Date Inactivated Comments Full Code 11/21/2021 1:21 PM Full Code 11/17/2021 3:23 AM 11/19/2021 5:28 PM Latest Code Status on File Code Status Date Activated Date Inactivated Comments Full Code 11/21/2021 1:21 PM Full Code 11/17/2021 3:23 AM 11/19/2021 5:28 PM Latest Code Status on File Code Status Date Activated Date Inactivated Comments Full Code 11/21/2021 1:21 PM 05/13/2022 9:16 AM Latest Code Status on File Code Status Date Activated Date Inactivated Comments Full Code 11/21/2021 1:21 PM 05/13/2022 9:16 AM Latest Code Status on File Code Status Date Activated Date Inactivated Comments Full Code 07/11/2022 4:09 PM Full Code 11/21/2021 1:21 PM 05/13/2022 9:16 AM Latest Code Status on File Code Status Date Activated Date Inactivated Comments Full Code 07/11/2022 4:09 PM Full Code 11/21/2021 1:21 PM 05/13/2022 9:16 AM Latest Code Status on File Code Status Date Activated Date Inactivated Comments Full Code 07/11/2022 4:09 PM 09/15/2022 11:40 AM Latest Code Status on File Code Status Date Activated Date Inactivated Comments Full Code 09/18/2022 8:33 PM Full Code 07/11/2022 4:09 PM 09/15/2022 11:40 AM Latest Code Status on File Code Status Date Activated Date Inactivated Comments Full Code 09/18/2022 8:33 PM Full Code 07/11/2022 4:09 PM 09/15/2022 11:40 AM Latest Code Status on File Code Status Date Activated Date Inactivated Comments Full Code 09/18/2022 8:33 PM Code Status History Code Status Date Activated Date Inactivated Comments Full Code 07/11/2022 4:09 PM 09/15/2022 11:40 AM Full Code 11/21/2021 1:21 PM 05/13/2022 9:16 AM Full Code 11/17/2021 3:23 AM 11/19/2021 5:28 PM Question Answer Comments Full Code Order Discussed With: Patient Latest Code Status on File Code Status Date Activated Date Inactivated Comments Full Code 09/18/2022 8:33 PM Code Status History Code Status Date Activated Date Inactivated Comments Full Code 07/11/2022 4:09 PM 09/15/2022 11:40 AM Full Code 11/21/2021 1:21 PM 05/13/2022 9:16 AM Full Code 11/17/2021 3:23 AM 11/19/2021 5:28 PM Question Answer Comments Full Code Order Discussed With: Patient Code Status History Code Status Date Activated Date Inactivated Comments Full Code 07/11/2022 4:09 PM 09/15/2022 11:40 AM Full Code 11/21/2021 1:21 PM 05/13/2022 9:16 AM Full Code 11/17/2021 3:23 AM 11/19/2021 5:28 PM Question Answer Comments Full Code Order Discussed With: Patient Date Activated Date Inactivated Comments 09/18/2022 8:33 PM Date Activated Date Inactivated Comments 07/11/2022 4:09 PM 09/15/2022 11:40 AM Date Activated Date Inactivated Comments 11/21/2021 1:21 PM 05/13/2022 9:16 AM Date Activated Date Inactivated Comments 11/17/2021 3:23 AM 11/19/2021 5:28 PM Question Answer Comments Full Code Order Discussed With: Patient Date Activated Date Inactivated Comments 07/27/2023 3:45 PM 07/28/2023 4:47 PM Question Answer Comments Full Code Order Discussed With: Patient Date Activated Date Inactivated Comments 09/18/2022 8:33 PM 07/26/2023 8:24 AM Date Activated Date Inactivated Comments 07/11/2022 4:09 PM 09/15/2022 11:40 AM Date Activated Date Inactivated Comments 11/21/2021 1:21 PM 05/13/2022 9:16 AM Date Activated Date Inactivated Comments 11/17/2021 3:23 AM 11/19/2021 5:28 PM Question Answer Comments Full Code Order Discussed With: Patient Date Activated Date Inactivated Comments 07/27/2023 3:45 PM 07/28/2023 4:47 PM Question Answer Comments Full Code Order Discussed With: Patient Date Activated Date Inactivated Comments 09/18/2022 8:33 PM 07/26/2023 8:24 AM Date Activated Date Inactivated Comments 07/11/2022 4:09 PM 09/15/2022 11:40 AM Date Activated Date Inactivated Comments 11/21/2021 1:21 PM 05/13/2022 9:16 AM Date Activated Date Inactivated Comments 11/17/2021 3:23 AM 11/19/2021 5:28 PM Question Answer Comments Full Code Order Discussed With: Patient Procedure Findings Note Post Operative Note: PreOp D iagnosis: arthritis, left handPost-Procedure Diagnosis: sameProcedure: 1. Left index MP pyrocarbon arthroplasty2. Left long MP pyrocarbon arthroplasty3. Left index finger DIP fusion Surgeon: Dr. DelgadoResident/Fellow/Other Industrial/Organizational Psychologist: Jeannette [id number]: General via LMAI.V. Fluids: 500 cc LREstimated Blood Loss (mL): 5Blood Replacement: noneSpecimen: noComplications: none immediateFindings: MCP joints, DIP joint with eburnationPatient Returned To/Condition: PACU/stableTourniquet Times: 105 minutesImplants: Integra # 30 implants, Synthes 2.4 headless screwAdditional Details: [facility] left handregular diet, initiate clears and advance as toleratedmaintain splintfollow up with Dr. Delgado Operative Report Dictated:Dictation: yesDictated by: DannyDate of Dictation: 28-Oct-2017 Signature/Cosignature/Attestation:Attending AttestationI was present for the entire procedure Electronic Signatures:Aspen Delgado (more content not included)... Note HNO ID: [id number] Author: Eduardo Khan Service: Orthopaedic Surgery Author Type: Physician Type: Operative Report Filed: 05/22/2018 3:22 PM Note Text: Operative Note Patient name: Mary Jane De Paz SURGERY/PROCEDURE DATE: 05/21/2018 INCISION/PROCEDURE START TIME: 9:10 AM INCISION CLOSE/PROCEDURE END TIME: 9:57 AM SURGEON(S)/PROCEDURALIST(S) AND BOOTH OPERATOR(S): Surgeon(s) and Role: * Beto Khan - Primary Physician Industrial/Organizational Psychologist: Loreta Kennedy (Pa) SURGERY/PROCEDURE(S): Left first dorsal compartment release ANESTHESIA: General FINDINGS: Extremely thickened extensor retinaculum overlying first dorsal compartment, multiple slips of APL. There was instability of the tendons after release and so first dorsal compartment was z-lengthed and and closed loosely. After this, there was stability of the tendons but complete decompression. Superficial radial nerve protected throughout the case. ESTIMATED BLOOD LOSS: 0 ml SPECIMENS: None COMPLICATIONS: None PRE-OP/PRE-PROCE (more content not included)... Note HNO ID: [id number] Author: Eduardo Khan Service: Orthopaedic Surgery Author Type: Physician Type: Brief Op Note Filed: 05/21/2018 10:18 AM Note Text: BRIEF OPERATIVE / PROCEDURE NOTE LOG ID: [id number] SURGERY/PROCEDURE DATE: 05/21/2018 INCISION/PROCEDURE START TIME: 9:10 AM INCISION CLOSE/PROCEDURE END TIME: 9:57 AM SURGEON(S)/PROCEDURALIST(S) AND BOOTH OPERATOR(S): Surgeon(s) and Role: * Beto Khan - Primary Physician Industrial/Organizational Psychologist: Loreta Kennedy (Pa) SURGERY/PROCEDURE(S): Left first dorsal compartment release ANESTHESIA: General FINDINGS: Extremely thickened extensor retinaculum overlying first dorsal compartment, multiple slips of APL. There was instability of the tendons after release and so first dorsal compartment was the length and and closed loosely. After this there was stability of the tendons but complete decompression. Superficial radial nerve protected throughout the case. ESTIMATED BLOOD LOSS: 0 ml SPECIMENS: None COMPLICATIONS: None PRE-OP/PRE-PROCEDURE DIAGNOSIS: De Quervain's tenosyno (more content not included)... Note HNO ID: [id number] Author: Jame Zhou) Tateab Service: Colorectal Author Type: Fellow Type: Brief Op Note Filed: 06/15/2018 1:16 PM Note Text: BRIEF OPERATIVE NOTE - COLORECTAL SURGERY Log ID: [id number] Surgery/Procedure Date: 06/15/2018 Incision/Procedure Start Time: 12:20 PM Incision Close/Procedure End Time: 1:03 PM Surgeon(s) and Industrial/Organizational Psychologist(s): Surgeon(s) and Role: * Tylor Mesa - Primary * Ashly Zhou) Hassab - Fellow No Additional Staff Procedures and Anesthesia: Procedure(s) and Anesthesia Type: * TRANSFORAMINAL PLCMNT VIA INCISION NEUROSTIM ELECTRODES SACRAL - Monitored Anesthesia Care * FLUOROSCOPY UP TO 1 HOUR PHYSCIAN OR OTHER QUAL PROF TIME,SEPARATE PROCEDURE - Monitored Anesthesia Care Implantation of SNS (1st stage) Stoma Type: N/A Findings: excellent billows and toe twitch in all 4 leads Estimated Blood Loss: Minimal Specimens: None Diagnosis Code(s): Pre-Op Diagnosis Codes: * Fecal 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] Postop Diagnosis: same Drains: None Wound Classification: Class 1, operat (more content not included)... Note HNO ID: [id number] Author: Jame suarez (Elmer) Hassab Service: Colorectal Author Type: Fellow Type: Brief Op Note Filed: 06/29/2018 9:17 AM Note Text: BRIEF OPERATIVE NOTE - COLORECTAL SURGERY Log ID: [id number] Surgery/Procedure Date: 06/29/2018 Incision/Procedure Start Time: 8:55 AM Incision Close/Procedure End Time: 9:14 AM Surgeon(s) and Industrial/Organizational Psychologist(s): Surgeon(s) and Role: * Tylor Mesa - Primary No Additional Staff Procedures and Anesthesia: Procedure(s) and Anesthesia Type: * INSERTION STIMULATOR GENERATOR BLADDER - Monitored Anesthesia Care * ELECTRONIC ANALYSIS IMPLANTED NEUROSTIMULATOR SIMPLE SPINAL CORD OR PERIPHERAL NERVE W/PROGRAMMING - Monitored Anesthesia Care Stoma Type: N/A Findings: all leads were working well Estimated Blood Loss: 1cc Specimens: None Diagnosis Code(s): Pre-Op Diagnosis Codes: * Fecal 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] Postop Diagnosis: same Drains: None Wound Classification: Class 1, operative wound clean, non-traumatic, with no inflammation encountered, no break in technique, ga (more content not included)... Reason for Referral Specialty Diagnoses / Procedures Referred By Contac t Referred To Contact Diagnoses Chronic right-sided low back pain without sciatica Christine Morgan, PHOTOGRAPHIC INTELLIGENCE OFFICER.CD REACTOR OPERATOR [address] [place] [address] Referral ID Status Reason Start Date Expiration Date V isits Requested Visits Authorized [id number] Pending Review 1 1 Specialty Diagnoses / Procedures Referred By Contac t Referred To Contact Orthopedics Diagnoses Pain of finger of left hand Procedures CONSULT TO ORTHOPAEDICS OFFICE/OUTPATIENT [facility] 60-74 MINUTES Christine Morgan, PHOTOGRAPHIC INTELLIGENCE OFFICER.CD REACTOR OPERATOR [address] [place] [address] Referral ID Status Reason Start Date Expiration Date Visits Requested Visits Authorized [id number] Authorized PCP Requested Referral 07/29/2021 07/29/2022 1 1 Specialty Diagnoses / Procedures Referred By Contac t Referred To Contact Plastic Surgery Diagnoses Intertrigo Procedures CONSULT TO PLASTIC SURGERY OFFICE/OUTPATIENT [facility] MDM 60-74 MINUTES Christine Morgan APRN.CD REACTOR OPERATOR [address] [place] [address] Referral ID Status Reason Start Date Expiration Date Visits Requested Visits Authorized [id number] Authorized PCP Requested Referral 10/11/2021 10/11/2022 1 1 Specialty Diagnoses / Procedures Referred By Contac t Referred To Contact [facility] Diagnoses Chronic pain of right knee Hip fracture requiring operative repair, right, closed, initial encounter (HCC) Closed displaced fracture of right femoral neck (HCC) Procedures CONSULT TO PHYSICAL THERAPY PHYSICAL THERAPY EVALUATION HIGH COMPLEX 45 MINS Kaylen Lindsey DO [facility] [place] [address] [facility] [address] [place] [address] Referral ID Status Reason Start Date Expiration Date Visits Requested Visits Authorized [id number] Pending Review Auto-Generat ed Referral 12/09/2021 12/04/2022 1 1 Specialty Diagnoses / Procedures Referred By Contac t Referred To Contact XR IMAGING Diagnoses Chronic pain of right knee Procedures XR KNEE GENERAL 4V AP BOTH/PA BOTH/LAT/MERC RIGHT RADIOLOGIC EXAM KNEE COMPLETE 4/MORE VIEWS Kaylen Lindsey DO [facility] [place] [address] Xr Imaging Referral ID Status Reason Start Date Expiration Date V isits Requested Visits Authorized [id number] Closed Auto-Generate d Referral 12/04/2021 01/03/2023 1 1 Specialty Diagnoses / Procedures Referred By Contac t Referred To Contact General Surgery Diagnoses Screening for colon cancer Procedures CONSULT TO GENERAL SURGERY OFFICE/OUTPATIENT [facility] MDM 60-74 MINUTES Christine Morgan APRN.CD REACTOR OPERATOR [address] [place] [address] Referral ID Status Reason Start Date Expiration Date Visits Requested Visits Authorized [id number] Authorized PCP Requested Referral 01/29/2022 01/29/2023 1 1 Specialty Diagnoses / Procedures Referred By Contac t Referred To Contact [facility] Diagnoses Encounter for screening mammogram for breast cancer Procedures [facility] SCREENING SCREENING MAMMOGRAPHY BI 2-VIEW BREAST INC CAD Christine Morgan, PHOTOGRAPHIC INTELLIGENCE OFFICER.CD REACTOR OPERATOR [address] [place] [address] [facility] [address] [place] [address] Referral ID Status Reason Start Date Expiration Date Visits Requested Visits Authorized [id number] Authorized Auto-Generat ed Referral 01/29/2022 02/28/2023 1 1 Specialty Diagnoses / Procedures Referred By Contac t Referred To Contact Dermatology Diagnoses Skin lesion Procedures CONSULT TO DERMATOLOGY Christine Morgan, PHOTOGRAPHIC INTELLIGENCE OFFICER.CD REACTOR OPERATOR [address] [place] [address] Referral ID Status Reason Start Date Expiration Date Visits Requested Visits Authorized [id number] Ref Not Required PCP Requested Referral 01/29/2022 01/29/2023 1 1 Specialty Diagnoses / Procedures Referred By Contac t Referred To Contact Colon and Rectal Surgery Diagnoses Anal sphincter incontinence Procedures CONSULT TO COLO-RECTAL SURGERY OFFICE/OUTPATIENT [facility] 60-74 MINUTES Dionna Fong PA-C [address] [place] [address] Referral ID Status Reason Start Date Expiration Date Visits Requested Visits Authorized [id number] Authorized PCP Requested Referral 02/12/2023 1 1 Specialty Diagnoses / Procedures Referred By Contac t Referred To Contact Diagnoses Anal sphincter incontinence Procedures VIRTUAL CONSULT TO PACC Sindy Mcgregor MD [address] [place] [address] Referral ID Status Reason Start Date Expiration Date Visits Requested Visits Authorized [id number] Ref Not Required PCP Requested Referral 02/27/2022 05/28/2022 1 1 Specialty Diagnoses / Procedures Referred By Contac t Referred To Contact [facility] Diagnoses Anal sphincter incontinence Procedures ECG COMPLETE ECG ROUTINE ECG W/LEAST 12 LDS W/I&R Sindy Mcgregor MD [address] [place] [address] [facility] [address] [place] [id number] Referral ID Status Reason Start Date Expiration Date Visits Requested Visits Authorized [id number] Pending Review Auto-Generat ed Referral 02/27/2022 02/27/2023 1 1 Specialty Diagnoses / Procedures Referred By Contac t Referred To Contact CT IMAGING Diagnoses History of partial knee replacement Procedures CT KNEE WO IVCON RT CT LOWER EXTREMITY W/O CONTRAST MATERIAL Donavon Patricia MD [address] [address] [address] Referral ID Status Reason Start Date Expiration Date Visits Requested Visits Authorized [id number] Authorized Auto-Generat ed Referral 04/22/2022 05/22/2023 1 1 Specialty Diagnoses / Procedures Referred By Contac t Referred To Contact XR IMAGING Diagnoses Hip fracture requiring operative repair, right, closed, initial encounter (HCC) Procedures XR HIP GENERAL 3V PELV/AP/LAT RIGHT RADEX HIP UNILATERAL WITH PELVIS 2-3 VIEWS Donavon Patricia MD [address] [place] [address] Xr Imaging Referral ID Status Reason Start Date Expiration Date V isits Requested Visits Authorized [id number] Closed Auto-Generate d Referral 04/22/2022 05/22/2023 1 1 Specialty Diagnoses / Procedures Referred By Contac t Referred To Contact CT IMAGING Diagnoses Presence of right artificial hip joint Post-traumatic osteoarthritis of right hip Procedures CT HIP WO IVCON RT CT LOWER EXTREMITY W/O CONTRAST MATERIAL Rafi Fox APRN.CD REACTOR OPERATOR [address] [address] [address] Imaging Referral ID Status Reason Start Date Expiration Date V isits Requested Visits Authorized [id number] Closed Auto-Generate d Referral 05/16/2022 06/15/2023 1 1 Specialty Diagnoses / Procedures Referred By Contac t Referred To Contact Orthopedics Diagnoses Fall, initial encounter Procedures CONSULT TO ORTHOPAEDICS OFFICE/OUTPATIENT [facility] 60-74 MINUTES Willow Resendiz, PHOTOGRAPHIC INTELLIGENCE OFFICER.CD REACTOR OPERATOR [address] [place] [address] Referral ID Status Reason Start Date Expiration Date Visits Requested Visits Authorized [id number] Pending Review PCP Requested Referral 06/09/2022 06/09/2023 1 1 Specialty Diagnoses / Procedures Referred By Contac t Referred To Contact XR IMAGING Diagnoses Fall, initial encounter Procedures XR SHOULDER GENERAL 3V OR MORE AP/TRUE AP/OTHER RIGHT RADEX SHOULDER COMPLETE MINIMUM 2 VIEWS Willow Resendiz APRN.CD REACTOR OPERATOR [address] [place] [address] Xr Imaging Referral ID Status Reason Start Date Expiration Date V isits Requested Visits Authorized [id number] Closed Auto-Generate d Referral 06/09/2022 07/09/2023 1 1 Specialty Diagnoses / Procedures Referred By Contac t Referred To Contact CT IMAGING Diagnoses Presence of right artificial hip joint Procedures CT HIP WO IVCON RIGHT CT LOWER EXTREMITY W/O CONTRAST MATERIAL Rafi Fox APRN.CD REACTOR OPERATOR [address] [address] [address] Imaging Referral ID Status Reason Start Date Expiration Date Visits Requested Visits Authorized [id number] Authorized Auto-Generat ed Referral 06/13/2022 07/13/2023 1 1 Referral ID Status Reason Start Date Expiration Date V isits Requested Visits Authorized [id number] Closed Auto-Generate d Referral 06/13/2022 07/13/2023 1 1 Referral ID Status Reason Start Date Expiration Date V isits Requested Visits Authorized [id number] Closed Auto-Generate d Referral 04/22/2022 05/22/2023 1 1 Specialty Diagnoses / Procedures Referred By Contac t Referred To Contact [facility] Diagnoses Stiffness of right knee Procedures CONSULT TO PHYSICAL THERAPY PHYSICAL THERAPY EVALUATION HIGH COMPLEX 45 MINS Rafi Fox APRN.CD REACTOR OPERATOR [address] [address] [facility] [address] [address] Referral ID Status Reason Start Date Expiration Date Visits Requested Visits Authorized [id number] Pending Review Auto-Generat ed Referral 09/29/2022 09/29/2023 1 1 Specialty Diagnoses / Procedures Referred By Contac t Referred To Contact [facility] Diagnoses Stiffness of right knee Acute pain of right knee Difficulty walking Localized edema Procedures PT REHAB FOLLOW UP ORDER THERAPEUTIC EXERCISES RE, EA 15 MIN. Pt Timothy [address] [place] [address] [facility] [address] [place] [address] Referral ID Status Reason Start Date Expiration Date Visits Requested Visits Authorized [id number] Pending Review PCP Requested Referral Auto-Generate d Referral 10/08/2022 01/06/2023 1 1 Specialty Diagnoses / Procedures Referred By Contac t Referred To Contact Physical Therapy / PHYSICAL THERAPY Diagnoses Stiffness of right knee Procedures CONSULT TO PHYSICAL THERAPY PHYSICAL THERAPY EVALUATION [facility] 45 MINS Rafi Fox, PHOTOGRAPHIC INTELLIGENCE OFFICER.CD REACTOR OPERATOR [address] [address] Aston Koo, PT Referral ID Status Reason Start Date Expiration Date Visits Requested Visits Authorized [id number] Authorized Auto-Generat ed Referral 03/23/2022 03/22/2023 99 99 Specialty Diagnoses / Procedures Referred By Contac t Referred To Contact Endocrinology / ENDOCRINOLOGY Diagnoses Type 2 diabetes mellitus with stage 3 chronic kidney disease, without long-term current use of insulin, unspecified whether stage 3a or 3b CKD (HCC) Procedures CONSULT TO ENDOCRINOLOGY OFFICE/OUTPATIENT [facility] 60 MINUTES Christine Morgan, PHOTOGRAPHIC INTELLIGENCE OFFICER.CD REACTOR OPERATOR [address] [place] [address] Marimar Wilcox, PHOTOGRAPHIC INTELLIGENCE OFFICER.CD REACTOR OPERATOR [address] [place] [address] Referral ID Status Reason Start Date Expiration Date Visits Requested Visits Authorized [id number] Authorized PCP Requested Referral 07/09/2023 03/22/2024 1 1 Specialty Diagnoses / Procedures Referred By Contac t Referred To Contact MR IMAGING Diagnoses Right wrist pain Ulnar impaction syndrome, right Procedures MRI WRIST WO IVCON RIGHT MRI ANY JT UPPER EXTREMITY W/O CONTRAST Delfin Kelsey MD [address] [place] [address] [place] [address] Referral ID Status Reason Start Date Expiration Date Visits Requested Visits Authorized [id number] Pending Review Auto-Generat ed Referral 08/16/2023 09/14/2024 1 1 Specialty Diagnoses / Procedures Referred By Contac t Referred To Contact Marimar Wilcox APRN.CD REACTOR OPERATOR [address] [place] [address] Referral ID Status Reason Start Date Expiration Date V isits Requested Visits Authorized [id number] Authorized 03/23/2023 03/22/2024 1 1 Referral ID Status Reason Start Date Expiration Date Visits Re quested Visits Authorized [id number] Closed 1 1 Specialty Diagnoses / Procedures Referred By Contac t Referred To Contact CT IMAGING Diagnoses Pancreatic cyst Procedures CT PANCREAS W IVCON CT ABDOMEN W/CONTRAST Christine Morgna APRN.CD REACTOR OPERATOR [address] [place] [address] [place] [address] Referral ID Status Reason Start Date Expiration Date Visits Requested Visits Authorized [id number] Authorized Auto-Generat ed Referral 12/15/2023 01/13/2025 1 1 Specialty Diagnoses / Procedures Referred By Contac t Referred To Contact Podiatry Diagnoses Closed fracture of right foot with routine healing, subsequent encounter Procedures CONSULT TO PODIATRY OFFICE/OUTPATIENT NEW HIGH MDM 60 MINUTES Christine Morgan APRN.CD REACTOR OPERATOR [address] [place] [address] Referral ID Status Reason Start Date Expiration Date Visits Requested Visits Authorized [id number] Pending Review PCP Requested Referral 12/15/2023 12/14/2024 1 1 Referral ID Status Reason Start Date Expiration Date Visits Requested Visits Authorized [id number] New Request Auto-Generat ed Referral 07/08/2024 02/06/2025 1 1 Specialty Diagnoses / Procedures Referred By Contac t Referred To Contact [facility] Diagnoses Falls Procedures CONSULT TO PHYSICAL THERAPY PHYSICAL THERAPY EVALUATION HIGH COMPLEX 45 MINS Christine Morgan APRN.CD REACTOR OPERATOR [address] [place] [address] [facility] [address] [place] [address] Referral ID Status Reason Start Date Expiration Date Visits Requested Visits Authorized [id number] Pending Review Auto-Generat ed Referral 4 01/14/2025 1 1 Specialty Diagnoses / Procedures Referred By Venessa bryant Referred To Contact [facility] Diagnoses Pain in both hands Procedures CONSULT TO DIRECTOR OF PUBLIC HEALTH OCCUPATIONAL THERAPY EVAL HIGH COMPLEX 60 MINS Christine Morgan, KULWANT.CD REACTOR OPERATOR [address] [place] [address] [facility] [address] [place] [address] Referral ID Status Reason Start Date Expiration Date Visits Requested Visits Authorized [id number] Pending Review Auto-Generat ed Referral 4 01/14/2025 1 1 Health Concerns Infection Onset Date Last Indicated Resolved Time COVID-19 Rule-Out 11/16/2021 11/16/2021 11/17/2021 12:30 AM EDT Infection Onset Date Last Indicated Resolved Time COVID-19 Rule-Out 07/19/2022 07/19/2022 Infection Onset Date Last Indicated Resolved Time COVID-19 Rule-Out 07/19/2022 07/19/2022 Infection Onset Date Last Indicated Resolved Time COVID-19 Rule-Out 07/19/2022 07/19/2022 07/29/2022 8:51 PM EDT Problem Noted Date Total Knee Replacement Rehabilitation Attendant Problem Noted Date Total Knee Replacement Rehabilitation Attendant Problem Noted Date Total Knee Replacement Rehabilitation Attendant Problem Noted Date Total Knee Replacement Rehabilitation Attendant Problem Noted Date Total Knee Replacement Rehabilitation Attendant Problem Noted Date Total Knee Replacement Rehabilitation Attendant Problem Noted Date Total Knee Replacement Rehabilitation Attendant Problem Noted Date Total Knee Replacement Rehabilitation Attendant Problem Noted Date Total Knee Replacement Rehabilitation Attendant Problem Noted Date Diagnosed Date Total Knee Replacement Rehabilitation Attendant 08/11/2022 Problem Noted Date Diagnosed Date Total Knee Replacement Rehabilitation Attendant 08/11/2022 Problem Noted Date Diagnosed Date Total Knee Replacement Rehabilitation Attendant 08/11/2022 Problem Noted Date Diagnosed Date Total Knee Replacement Rehabilitation Attendant 08/11/2022 Problem Noted Date Diagnosed Date Total Knee Replacement Rehabilitation Attendant 08/11/2022 Problem Noted Date Diagnosed Date Total Knee Replacement Rehabilitation Attendant 08/11/2022 Problem Noted Date Diagnosed Date Total Knee Replacement Rehabilitation Attendant 08/11/2022 Problem Noted Date Diagnosed Date Total Knee Replacement Rehabilitation Attendant 08/11/2022 Problem Noted Date Diagnosed Date Total Knee Replacement Rehabilitation Attendant 08/11/2022 Problem Noted Date Diagnosed Date Total Knee Replacement Rehabilitation Attendant 08/11/2022 Problem Noted Date Diagnosed Date Total Knee Replacement Rehabilitation Attendant 08/11/2022 Problem Noted Date Diagnosed Date Total Knee Replacement Rehabilitation Attendant 08/11/2022 Problem Noted Date Diagnosed Date Total Knee Replacement Rehabilitation Attendant 08/11/2022 Problem Noted Date Diagnosed Date Total Knee Replacement Rehabilitation Attendant 08/11/2022 Problem Noted Date Diagnosed Date Total Knee Replacement Rehabilitation Attendant 08/11/2022 Problem Noted Date Diagnosed Date Total Knee Replacement Rehabilitation Attendant 08/11/2022 Medications Administered Section Inactive Administered Medications - up to 3 most recent administrations Medication Order MAR Action Action Date Dose Rate Site benzocaine 20% 1 Gay (TOPEX) 1 Gay, TOPICAL, DIRECTED, Starting on Thu04/02/22 at 0800, Until Thu04/02/22 at 1159, DOSING DIRECTED BY PHYSICIAN FOR PROCEDURAL SEDATION ONLY - Pharmaceutical Waste: Aerosol -, Intraprocedure Given 04/02/2022 7:35 AM EST 5 Sprays diphenhydrAMINE 12.5-50 mg injection (BENADRYL) 12.5-50 mg, INTRAVENOUS, DIRECTED, Starting on Thu04/02/22 at 0800, Until Thu04/02/22 at 1159, DOSING DIRECTED BY PHYSICIAN FOR PROCEDURAL SEDATION ONLY, Intraprocedure Given 04/02/2022 7:38 AM EST 50 mg fentaNYL 50 mcg/mL 25-100 mcg injection (SUBLIMAZE) 25-100 mcg, INTRAVENOUS, DIRECTED, Starting on Thu04/02/22 at 0800, Until Thu04/02/22 at 1159, DOSING DIRECTED BY PHYSICIAN FOR PROCEDURAL SEDATION ONLY, Intraprocedure Given 04/02/2022 8:07 AM EST 50 mcg Given 04/02/2022 8:03 AM EST 50 mcg Given 04/02/2022 7:36 AM EST 50 mcg lactated ringers iv infusion 75 mL/hr, INTRAVENOUS, CONTINUOUS, Starting on Thu04/02/22 at 0700, Until Thu04/02/22 at 0822, Preprocedure New Bag/Syringe/Bottle 04/02/2022 8:12 AM EST 75 mL/hr 75 mL/hr New Bag/Syringe/Bottle 04/02/2022 7:20 AM EST 75 mL/hr 7 5 mL/hr midazolam 1-5 mg injection (VERSED) 1-5 mg, INTRAVENOUS, DIRECTED, Starting on Thu04/02/22 at 0800, Until Thu04/02/22 at 1159, DOSING DIRECTED BY PHYSICIAN FOR PROCEDURAL SEDATION ONLY, Intraprocedure Given 04/02/2022 7:56 AM EST 2 mg Given 04/02/2022 7:40 AM EST 2 mg Given 04/02/2022 7:36 AM EST 3 mg Inactive Administered Medications - up to 3 most recent administrations Medication Order MAR Action Action Date Dose Rate Site betamethasone acetate-betamethasone sodium phosphate 3 mg injection (CELESTONE) 3 mg, Injection - FOR ORTHO USE ONLY, ONCE, 1 dose, Starting on Thu02/09/23 at 1419, Until Thu02/09/23 at 1419 Given 02/09/2023 2:19 PM EST 3 mg Wrist , Right lidocaine (PF) 10 mg/mL (1 %) 0.5 mL injection (XYLOCAINE) 0.5 mL, Injection - FOR ORTHO USE ONLY, ONCE, 1 dose, Starting on Thu02/09/23 at 1419, Until Thu02/09/23 at 1419 Given 02/09/2023 2:19 PM EST 0.5 mL W rist, Right Additional Source Comments INFORMATION SOURCE (unrecogn ized section and content) DATE CREATED AUTHOR 11/17/2017 [facility] DATE CREATED AUTHOR AUTHOR'S ORGANIZ ATION 03/09/2018 [employer] DATE CREATED AUTHOR AUTHOR'S ORGANIZ ATION 03/15/2018 [facility] DATE CREATED AUTHOR AUTHOR'S ORGANIZ ATION 12/23/2018 [facility] DATE CREATED AUTHOR AUTHOR'S ORGANIZ ATION 04/22/2022 [facility] DATE CREATED AUTHOR AUTHOR'S ORGANIZ ATION 07/31/2023 [facility] DATE CREATED AUTHOR AUTHOR'S ORGANIZ ATION 01/19/2024 [facility] DATE CREATED AUTHOR AUTHOR'S ORGANIZ ATION 10/20/2024 [facility] DATE CREATED AUTHOR AUTHOR'S ORGANIZ ATION 11/15/2024 [facility] DATE CREATED AUTHOR AUTHOR'S ORGANIZ ATION 01/18/2025 [facility] DATE CREATED AUTHOR AUTHOR'S ORGANIZ ATION 01/26/2025 [facility] DATE CREATED AUTHOR AUTHOR'S ORGANIZ ATION 01/28/2025 [facility] Source Comments (unrecognize d section and content) In the event this informatio n is protected by the Federal Confidentiality of Alcohol and Drug Abuse Patient Records regulations: The Federal rules restrict any use of the information to criminally investigate or prosecute any alcohol or drug abuse patient.[facility]In the event this information is protected by the Federal Confidentiality of Alcohol and Drug Abuse Patient Records regulations: The Federal rules restrict any use of the information to criminally investigate or prosecute any alcohol or drug abuse patient.[facility] TroyIn the event this information is protected by the Federal Confidentiality of Alcohol and Drug Abuse Patient Records regulations: The Federal rules restrict any use of the information to criminally investigate or prosecute any alcohol or drug abuse patient.[facility] TroyIn the event this information is protected by the Federal Confidentiality of Alcohol and Drug Abuse Patient Records regulations: The Federal rules restrict any use of the information to criminally investigate or prosecute any alcohol or drug abuse patient.[facility] TroyIn the event this information is protected by the Federal Confidentiality of Alcohol and Drug Abuse Patient Records regulations: The Federal rules restrict any use of the information to criminally investigate or prosecute any alcohol or drug abuse patient.[facility] TroyIn the event this information is protected by the Federal Confidentiality of Alcohol and Drug Abuse Patient Records regulations: The Federal rules restrict any use of the information to criminally investigate or prosecute any alcohol or drug abuse patient.[facility] TroyIn the event this information is protected by the Federal Confidentiality of Alcohol and Drug Abuse Patient Records regulations: The Federal rules restrict any use of the information to criminally investigate or prosecute any alcohol or drug abuse patient.[facility] TroyIn the event this information is protected by the Federal Confidentiality of Alcohol and Drug Abuse Patient Records regulations: The Federal rules restrict any use of the information to criminally investigate or prosecute any alcohol or drug abuse patient.[facility] TroyIn the event this information is protected by the Federal Confidentiality of Alcohol and Drug Abuse Patient Records regulations: The Federal rules restrict any use of the information to criminally investigate or prosecute any alcohol or drug abuse patient.[facility] TroyIn the event this information is protected by the Federal Confidentiality of Alcohol and Drug Abuse Patient Records regulations: The Federal rules restrict any use of the information to criminally investigate or prosecute any alcohol or drug abuse patient.[facility] TroyIn the event this information is protected by the Federal Confidentiality of Alcohol and Drug Abuse Patient Records regulations: The Federal rules restrict any use of the information to criminally investigate or prosecute any alcohol or drug abuse patient.[facility] TroyIn the event this information is protected by the Federal Confidentiality of Alcohol and Drug Abuse Patient Records regulations: The Federal rules restrict any use of the information to criminally investigate or prosecute any alcohol or drug abuse patient.[facility] TroyIn the event this information is protected by the Federal Confidentiality of Alcohol and Drug Abuse Patient Records regulations: The Federal rules restrict any use of the information to criminally investigate or prosecute any alcohol or drug abuse patient.[facility] TroyIn the event this information is protected by the Federal Confidentiality of Alcohol and Drug Abuse Patient Records regulations: The Federal rules restrict any use of the information to criminally investigate or prosecute any alcohol or drug abuse patient.[facility] TroyIn the event this information is protected by the Federal Confidentiality of Alcohol and Drug Abuse Patient Records regulations: The Federal rules restrict any use of the information to criminally investigate or prosecute any alcohol or drug abuse patient.[facility] TroyIn the event this information is protected by the Federal Confidentiality of Alcohol and Drug Abuse Patient Records regulations: The Federal rules restrict any use of the information to criminally investigate or prosecute any alcohol or drug abuse patient.[facility] TroyIn the event this information is protected by the Federal Confidentiality of Alcohol and Drug Abuse Patient Records regulations: The Federal rules restrict any use of the information to criminally investigate or prosecute any alcohol or drug abuse patient.[facility] TroyIn the event this information is protected by the Federal Confidentiality of Alcohol and Drug Abuse Patient Records regulations: The Federal rules restrict any use of the information to criminally investigate or prosecute any alcohol or drug abuse patient.[facility] TroyIn the event this information is protected by the Federal Confidentiality of Alcohol and Drug Abuse Patient Records regulations: The Federal rules restrict any use of the information to criminally investigate or prosecute any alcohol or drug abuse patient.[facility] TroyIn the event this information is protected by the Federal Confidentiality of Alcohol and Drug Abuse Patient Records regulations: The Federal rules restrict any use of the information to criminally investigate or prosecute any alcohol or drug abuse patient.[facility] TroyIn the event this information is protected by the Federal Confidentiality of Alcohol and Drug Abuse Patient Records regulations: The Federal rules restrict any use of the information to criminally investigate or prosecute any alcohol or drug abuse patient.[facility] TroyIn the event this information is protected by the Federal Confidentiality of Alcohol and Drug Abuse Patient Records regulations: The Federal rules restrict any use of the information to criminally investigate or prosecute any alcohol or drug abuse patient.[facility] TroyIn the event this information is protected by the Federal Confidentiality of Alcohol and Drug Abuse Patient Records regulations: The Federal rules restrict any use of the information to criminally investigate or prosecute any alcohol or drug abuse patient.[facility] TroyIn the event this information is protected by the Federal Confidentiality of Alcohol and Drug Abuse Patient Records regulations: The Federal rules restrict any use of the information to criminally investigate or prosecute any alcohol or drug abuse patient.[facility] TroyIn the event this information is protected by the Federal Confidentiality of Alcohol and Drug Abuse Patient Records regulations: The Federal rules restrict any use of the information to criminally investigate or prosecute any alcohol or drug abuse patient.[facility] TroyIn the event this information is protected by the Federal Confidentiality of Alcohol and Drug Abuse Patient Records regulations: The Federal rules restrict any use of the information to criminally investigate or prosecute any alcohol or drug abuse patient.[facility] TroyIn the event this information is protected by the Federal Confidentiality of Alcohol and Drug Abuse Patient Records regulations: The Federal rules restrict any use of the information to criminally investigate or prosecute any alcohol or drug abuse patient.[facility] TroyIn the event this information is protected by the Federal Confidentiality of Alcohol and Drug Abuse Patient Records regulations: The Federal rules restrict any use of the information to criminally investigate or prosecute any alcohol or drug abuse patient.[facility] TroyIn the event this information is protected by the Federal Confidentiality of Alcohol and Drug Abuse Patient Records regulations: The Federal rules restrict any use of the information to criminally investigate or prosecute any alcohol or drug abuse patient.[facility] TroyIn the event this information is protected by the Federal Confidentiality of Alcohol and Drug Abuse Patient Records regulations: The Federal rules restrict any use of the information to criminally investigate or prosecute any alcohol or drug abuse patient.[facility] TroyIn the event this information is protected by the Federal Confidentiality of Alcohol and Drug Abuse Patient Records regulations: The Federal rules restrict any use of the information to criminally investigate or prosecute any alcohol or drug abuse patient.[facility] TroyIn the event this information is protected by the Federal Confidentiality of Alcohol and Drug Abuse Patient Records regulations: The Federal rules restrict any use of the information to criminally investigate or prosecute any alcohol or drug abuse patient.[facility] TroyIn the event this information is protected by the Federal Confidentiality of Alcohol and Drug Abuse Patient Records regulations: The Federal rules restrict any use of the information to criminally investigate or prosecute any alcohol or drug abuse patient.[facility] TroyIn the event this information is protected by the Federal Confidentiality of Alcohol and Drug Abuse Patient Records regulations: The Federal rules restrict any use of the information to criminally investigate or prosecute any alcohol or drug abuse patient.[facility] TroyIn the event this information is protected by the Federal Confidentiality of Alcohol and Drug Abuse Patient Records regulations: The Federal rules restrict any use of the information to criminally investigate or prosecute any alcohol or drug abuse patient.[facility] TroyIn the event this information is protected by the Federal Confidentiality of Alcohol and Drug Abuse Patient Records regulations: The Federal rules restrict any use of the information to criminally investigate or prosecute any alcohol or drug abuse patient.[facility] TroyIn the event this information is protected by the Federal Confidentiality of Alcohol and Drug Abuse Patient Records regulations: The Federal rules restrict any use of the information to criminally investigate or prosecute any alcohol or drug abuse patient.[facility] TroyIn the event this information is protected by the Federal Confidentiality of Alcohol and Drug Abuse Patient Records regulations: The Federal rules restrict any use of the information to criminally investigate or prosecute any alcohol or drug abuse patient.[facility] TroyIn the event this information is protected by the Federal Confidentiality of Alcohol and Drug Abuse Patient Records regulations: The Federal rules restrict any use of the information to criminally investigate or prosecute any alcohol or drug abuse patient.[facility] TroyIn the event this information is protected by the Federal Confidentiality of Alcohol and Drug Abuse Patient Records regulations: The Federal rules restrict any use of the information to criminally investigate or prosecute any alcohol or drug abuse patient.[facility] TroyIn the event this information is protected by the Federal Confidentiality of Alcohol and Drug Abuse Patient Records regulations: The Federal rules restrict any use of the information to criminally investigate or prosecute any alcohol or drug abuse patient.[facility] TroyIn the event this information is protected by the Federal Confidentiality of Alcohol and Drug Abuse Patient Records regulations: The Federal rules restrict any use of the information to criminally investigate or prosecute any alcohol or drug abuse patient.[facility] TroyIn the event this information is protected by the Federal Confidentiality of Alcohol and Drug Abuse Patient Records regulations: The Federal rules restrict any use of the information to criminally investigate or prosecute any alcohol or drug abuse patient.[facility] TroyIn the event this information is protected by the Federal Confidentiality of Alcohol and Drug Abuse Patient Records regulations: The Federal rules restrict any use of the information to criminally investigate or prosecute any alcohol or drug abuse patient.[facility] TroyIn the event this information is protected by the Federal Confidentiality of Alcohol and Drug Abuse Patient Records regulations: The Federal rules restrict any use of the information to criminally investigate or prosecute any alcohol or drug abuse patient.[facility] TroyIn the event this information is protected by the Federal Confidentiality of Alcohol and Drug Abuse Patient Records regulations: The Federal rules restrict any use of the information to criminally investigate or prosecute any alcohol or drug abuse patient.[facility] TroyIn the event this information is protected by the Federal Confidentiality of Alcohol and Drug Abuse Patient Records regulations: The Federal rules restrict any use of the information to criminally investigate or prosecute any alcohol or drug abuse patient.[facility] TroyIn the event this information is protected by the Federal Confidentiality of Alcohol and Drug Abuse Patient Records regulations: The Federal rules restrict any use of the information to criminally investigate or prosecute any alcohol or drug abuse patient.[facility] TroyIn the event this information is protected by the Federal Confidentiality of Alcohol and Drug Abuse Patient Records regulations: The Federal rules restrict any use of the information to criminally investigate or prosecute any alcohol or drug abuse patient.[facility] TroyIn the event this information is protected by the Federal Confidentiality of Alcohol and Drug Abuse Patient Records regulations: The Federal rules restrict any use of the information to criminally investigate or prosecute any alcohol or drug abuse patient.[facility] TroyIn the event this information is protected by the Federal Confidentiality of Alcohol and Drug Abuse Patient Records regulations: The Federal rules restrict any use of the information to criminally investigate or prosecute any alcohol or drug abuse patient.[facility] TroyIn the event this information is protected by the Federal Confidentiality of Alcohol and Drug Abuse Patient Records regulations: The Federal rules restrict any use of the information to criminally investigate or prosecute any alcohol or drug abuse patient.[facility] TroyIn the event this information is protected by the Federal Confidentiality of Alcohol and Drug Abuse Patient Records regulations: The Federal rules restrict any use of the information to criminally investigate or prosecute any alcohol or drug abuse patient.[facility] TroyIn the event this information is protected by the Federal Confidentiality of Alcohol and Drug Abuse Patient Records regulations: The Federal rules restrict any use of the information to criminally investigate or prosecute any alcohol or drug abuse patient.[facility] TroyIn the event this information is protected by the Federal Confidentiality of Alcohol and Drug Abuse Patient Records regulations: The Federal rules restrict any use of the information to criminally investigate or prosecute any alcohol or drug abuse patient.[facility] TroyIn the event this information is protected by the Federal Confidentiality of Alcohol and Drug Abuse Patient Records regulations: The Federal rules restrict any use of the information to criminally investigate or prosecute any alcohol or drug abuse patient.[facility] TroyIn the event this information is protected by the Federal Confidentiality of Alcohol and Drug Abuse Patient Records regulations: The Federal rules restrict any use of the information to criminally investigate or prosecute any alcohol or drug abuse patient.[facility] TroyIn the event this information is protected by the Federal Confidentiality of Alcohol and Drug Abuse Patient Records regulations: The Federal rules restrict any use of the information to criminally investigate or prosecute any alcohol or drug abuse patient.[facility] TroyIn the event this information is protected by the Federal Confidentiality of Alcohol and Drug Abuse Patient Records regulations: The Federal rules restrict any use of the information to criminally investigate or prosecute any alcohol or drug abuse patient.[facility] TroyIn the event this information is protected by the Federal Confidentiality of Alcohol and Drug Abuse Patient Records regulations: The Federal rules restrict any use of the information to criminally investigate or prosecute any alcohol or drug abuse patient.[facility] TroyIn the event this information is protected by the Federal Confidentiality of Alcohol and Drug Abuse Patient Records regulations: The Federal rules restrict any use of the information to criminally investigate or prosecute any alcohol or drug abuse patient.[facility] TroyIn the event this information is protected by the Federal Confidentiality of Alcohol and Drug Abuse Patient Records regulations: The Federal rules restrict any use of the information to criminally investigate or prosecute any alcohol or drug abuse patient.[facility] TroyIn the event this information is protected by the Federal Confidentiality of Alcohol and Drug Abuse Patient Records regulations: The Federal rules restrict any use of the information to criminally investigate or prosecute any alcohol or drug abuse patient.[facility] TroyIn the event this information is protected by the Federal Confidentiality of Alcohol and Drug Abuse Patient Records regulations: The Federal rules restrict any use of the information to criminally investigate or prosecute any alcohol or drug abuse patient.[facility] TroyIn the event this information is protected by the Federal Confidentiality of Alcohol and Drug Abuse Patient Records regulations: The Federal rules restrict any use of the information to criminally investigate or prosecute any alcohol or drug abuse patient.[facility] TroyIn the event this information is protected by the Federal Confidentiality of Alcohol and Drug Abuse Patient Records regulations: The Federal rules restrict any use of the information to criminally investigate or prosecute any alcohol or drug abuse patient.[facility] TroyIn the event this information is protected by the Federal Confidentiality of Alcohol and Drug Abuse Patient Records regulations: The Federal rules restrict any use of the information to criminally investigate or prosecute any alcohol or drug abuse patient.[facility] TroyIn the event this information is protected by the Federal Confidentiality of Alcohol and Drug Abuse Patient Records regulations: The Federal rules restrict any use of the information to criminally investigate or prosecute any alcohol or drug abuse patient.[facility] TroyIn the event this information is protected by the Federal Confidentiality of Alcohol and Drug Abuse Patient Records regulations: The Federal rules restrict any use of the information to criminally investigate or prosecute any alcohol or drug abuse patient.[facility] TroyIn the event this information is protected by the Federal Confidentiality of Alcohol and Drug Abuse Patient Records regulations: The Federal rules restrict any use of the information to criminally investigate or prosecute any alcohol or drug abuse patient.[facility] TroyIn the event this information is protected by the Federal Confidentiality of Alcohol and Drug Abuse Patient Records regulations: The Federal rules restrict any use of the information to criminally investigate or prosecute any alcohol or drug abuse patient.[facility] TroyIn the event this information is protected by the Federal Confidentiality of Alcohol and Drug Abuse Patient Records regulations: The Federal rules restrict any use of the information to criminally investigate or prosecute any alcohol or drug abuse patient.[facility] TroyIn the event this information is protected by the Federal Confidentiality of Alcohol and Drug Abuse Patient Records regulations: The Federal rules restrict any use of the information to criminally investigate or prosecute any alcohol or drug abuse patient.[facility] TroyIn the event this information is protected by the Federal Confidentiality of Alcohol and Drug Abuse Patient Records regulations: The Federal rules restrict any use of the information to criminally investigate or prosecute any alcohol or drug abuse patient.[facility] TroyIn the event this information is protected by the Federal Confidentiality of Alcohol and Drug Abuse Patient Records regulations: The Federal rules restrict any use of the information to criminally investigate or prosecute any alcohol or drug abuse patient.[facility] TroyIn the event this information is protected by the Federal Confidentiality of Alcohol and Drug Abuse Patient Records regulations: The Federal rules restrict any use of the information to criminally investigate or prosecute any alcohol or drug abuse patient.[facility] TroyIn the event this information is protected by the Federal Confidentiality of Alcohol and Drug Abuse Patient Records regulations: The Federal rules restrict any use of the information to criminally investigate or prosecute any alcohol or drug abuse patient.[facility] TroyIn the event this information is protected by the Federal Confidentiality of Alcohol and Drug Abuse Patient Records regulations: The Federal rules restrict any use of the information to criminally investigate or prosecute any alcohol or drug abuse patient.[facility] TroyIn the event this information is protected by the Federal Confidentiality of Alcohol and Drug Abuse Patient Records regulations: The Federal rules restrict any use of the information to criminally investigate or prosecute any alcohol or drug abuse patient.[facility] TroyIn the event this information is protected by the Federal Confidentiality of Alcohol and Drug Abuse Patient Records regulations: The Federal rules restrict any use of the information to criminally investigate or prosecute any alcohol or drug abuse patient.[facility] TroyIn the event this information is protected by the Federal Confidentiality of Alcohol and Drug Abuse Patient Records regulations: The Federal rules restrict any use of the information to criminally investigate or prosecute any alcohol or drug abuse patient.[facility] TroyIn the event this information is protected by the Federal Confidentiality of Alcohol and Drug Abuse Patient Records regulations: The Federal rules restrict any use of the information to criminally investigate or prosecute any alcohol or drug abuse patient.[facility] TroyIn the event this information is protected by the Federal Confidentiality of Alcohol and Drug Abuse Patient Records regulations: The Federal rules restrict any use of the information to criminally investigate or prosecute any alcohol or drug abuse patient.[facility] TroyIn the event this information is protected by the Federal Confidentiality of Alcohol and Drug Abuse Patient Records regulations: The Federal rules restrict any use of the information to criminally investigate or prosecute any alcohol or drug abuse patient.[facility] TroyIn the event this information is protected by the Federal Confidentiality of Alcohol and Drug Abuse Patient Records regulations: The Federal rules restrict any use of the information to criminally investigate or prosecute any alcohol or drug abuse patient.[facility] TroyIn the event this information is protected by the Federal Confidentiality of Alcohol and Drug Abuse Patient Records regulations: The Federal rules restrict any use of the information to criminally investigate or prosecute any alcohol or drug abuse patient.[facility] TroyIn the event this information is protected by the Federal Confidentiality of Alcohol and Drug Abuse Patient Records regulations: The Federal rules restrict any use of the information to criminally investigate or prosecute any alcohol or drug abuse patient.[facility] TroyIn the event this information is protected by the Federal Confidentiality of Alcohol and Drug Abuse Patient Records regulations: The Federal rules restrict any use of the information to criminally investigate or prosecute any alcohol or drug abuse patient.[facility] TroyIn the event this information is protected by the Federal Confidentiality of Alcohol and Drug Abuse Patient Records regulations: The Federal rules restrict any use of the information to criminally investigate or prosecute any alcohol or drug abuse patient.[facility] TroyIn the event this information is protected by the Federal Confidentiality of Alcohol and Drug Abuse Patient Records regulations: The Federal rules restrict any use of the information to criminally investigate or prosecute any alcohol or drug abuse patient.[facility] TroyIn the event this information is protected by the Federal Confidentiality of Alcohol and Drug Abuse Patient Records regulations: The Federal rules restrict any use of the information to criminally investigate or prosecute any alcohol or drug abuse patient.[facility] TroyIn the event this information is protected by the Federal Confidentiality of Alcohol and Drug Abuse Patient Records regulations: The Federal rules restrict any use of the information to criminally investigate or prosecute any alcohol or drug abuse patient.[facility] TroyIn the event this information is protected by the Federal Confidentiality of Alcohol and Drug Abuse Patient Records regulations: The Federal rules restrict any use of the information to criminally investigate or prosecute any alcohol or drug abuse patient.[facility] TroyIn the event this information is protected by the Federal Confidentiality of Alcohol and Drug Abuse Patient Records regulations: The Federal rules restrict any use of the information to criminally investigate or prosecute any alcohol or drug abuse patient.[facility] TroyIn the event this information is protected by the Federal Confidentiality of Alcohol and Drug Abuse Patient Records regulations: The Federal rules restrict any use of the information to criminally investigate or prosecute any alcohol or drug abuse patient.[facility] TroyIn the event this information is protected by the Federal Confidentiality of Alcohol and Drug Abuse Patient Records regulations: The Federal rules restrict any use of the information to criminally investigate or prosecute any alcohol or drug abuse patient.[facility] TroyIn the event this information is protected by the Federal Confidentiality of Alcohol and Drug Abuse Patient Records regulations: The Federal rules restrict any use of the information to criminally investigate or prosecute any alcohol or drug abuse patient.[facility] TroyIn the event this information is protected by the Federal Confidentiality of Alcohol and Drug Abuse Patient Records regulations: The Federal rules restrict any use of the information to criminally investigate or prosecute any alcohol or drug abuse patient.[facility] TroyIn the event this information is protected by the Federal Confidentiality of Alcohol and Drug Abuse Patient Records regulations: The Federal rules restrict any use of the information to criminally investigate or prosecute any alcohol or drug abuse patient.[facility] TroyIn the event this information is protected by the Federal Confidentiality of Alcohol and Drug Abuse Patient Records regulations: The Federal rules restrict any use of the information to criminally investigate or prosecute any alcohol or drug abuse patient.[facility] TroyIn the event this information is protected by the Federal Confidentiality of Alcohol and Drug Abuse Patient Records regulations: The Federal rules restrict any use of the information to criminally investigate or prosecute any alcohol or drug abuse patient.[facility] TroyIn the event this information is protected by the Federal Confidentiality of Alcohol and Drug Abuse Patient Records regulations: The Federal rules restrict any use of the information to criminally investigate or prosecute any alcohol or drug abuse patient.[facility] TroyIn the event this information is protected by the Federal Confidentiality of Alcohol and Drug Abuse Patient Records regulations: The Federal rules restrict any use of the information to criminally investigate or prosecute any alcohol or drug abuse patient.[facility] TroyIn the event this information is protected by the Federal Confidentiality of Alcohol and Drug Abuse Patient Records regulations: The Federal rules restrict any use of the information to criminally investigate or prosecute any alcohol or drug abuse patient.[facility] TroyIn the event this information is protected by the Federal Confidentiality of Alcohol and Drug Abuse Patient Records regulations: The Federal rules restrict any use of the information to criminally investigate or prosecute any alcohol or drug abuse patient.[facility] TroyIn the event this information is protected by the Federal Confidentiality of Alcohol and Drug Abuse Patient Records regulations: The Federal rules restrict any use of the information to criminally investigate or prosecute any alcohol or drug abuse patient.[facility] TroyIn the event this information is protected by the Federal Confidentiality of Alcohol and Drug Abuse Patient Records regulations: The Federal rules restrict any use of the information to criminally investigate or prosecute any alcohol or drug abuse patient.[facility] TroyIn the event this information is protected by the Federal Confidentiality of Alcohol and Drug Abuse Patient Records regulations: The Federal rules restrict any use of the information to criminally investigate or prosecute any alcohol or drug abuse patient.[facility] TroyIn the event this information is protected by the Federal Confidentiality of Alcohol and Drug Abuse Patient Records regulations: The Federal rules restrict any use of the information to criminally investigate or prosecute any alcohol or drug abuse patient.[facility] TroyIn the event this information is protected by the Federal Confidentiality of Alcohol and Drug Abuse Patient Records regulations: The Federal rules restrict any use of the information to criminally investigate or prosecute any alcohol or drug abuse patient.[facility] TroyIn the event this information is protected by the Federal Confidentiality of Alcohol and Drug Abuse Patient Records regulations: The Federal rules restrict any use of the information to criminally investigate or prosecute any alcohol or drug abuse patient.[facility] TroyIn the event this information is protected by the Federal Confidentiality of Alcohol and Drug Abuse Patient Records regulations: The Federal rules restrict any use of the information to criminally investigate or prosecute any alcohol or drug abuse patient.[facility] TroyIn the event this information is protected by the Federal Confidentiality of Alcohol and Drug Abuse Patient Records regulations: The Federal rules restrict any use of the information to criminally investigate or prosecute any alcohol or drug abuse patient.[facility] TroyIn the event this information is protected by the Federal Confidentiality of Alcohol and Drug Abuse Patient Records regulations: The Federal rules restrict any use of the information to criminally investigate or prosecute any alcohol or drug abuse patient.[facility] TroyIn the event this information is protected by the Federal Confidentiality of Alcohol and Drug Abuse Patient Records regulations: The Federal rules restrict any use of the information to criminally investigate or prosecute any alcohol or drug abuse patient.[facility] TroyIn the event this information is protected by the Federal Confidentiality of Alcohol and Drug Abuse Patient Records regulations: The Federal rules restrict any use of the information to criminally investigate or prosecute any alcohol or drug abuse patient.[facility] TroyIn the event this information is protected by the Federal Confidentiality of Alcohol and Drug Abuse Patient Records regulations: The Federal rules restrict any use of the information to criminally investigate or prosecute any alcohol or drug abuse patient.[facility] TroyIn the event this information is protected by the Federal Confidentiality of Alcohol and Drug Abuse Patient Records regulations: The Federal rules restrict any use of the information to criminally investigate or prosecute any alcohol or drug abuse patient.[facility] TroyIn the event this information is protected by the Federal Confidentiality of Alcohol and Drug Abuse Patient Records regulations: The Federal rules restrict any use of the information to criminally investigate or prosecute any alcohol or drug abuse patient.[facility] TroyIn the event this information is protected by the Federal Confidentiality of Alcohol and Drug Abuse Patient Records regulations: The Federal rules restrict any use of the information to criminally investigate or prosecute any alcohol or drug abuse patient.[facility] TroyIn the event this information is protected by the Federal Confidentiality of Alcohol and Drug Abuse Patient Records regulations: The Federal rules restrict any use of the information to criminally investigate or prosecute any alcohol or drug abuse patient.[facility] TroyIn the event this information is protected by the Federal Confidentiality of Alcohol and Drug Abuse Patient Records regulations: The Federal rules restrict any use of the information to criminally investigate or prosecute any alcohol or drug abuse patient.[facility] TroyIn the event this information is protected by the Federal Confidentiality of Alcohol and Drug Abuse Patient Records regulations: The Federal rules restrict any use of the information to criminally investigate or prosecute any alcohol or drug abuse patient.[facility] TroyIn the event this information is protected by the Federal Confidentiality of Alcohol and Drug Abuse Patient Records regulations: The Federal rules restrict any use of the information to criminally investigate or prosecute any alcohol or drug abuse patient.[facility] TroyIn the event this information is protected by the Federal Confidentiality of Alcohol and Drug Abuse Patient Records regulations: The Federal rules restrict any use of the information to criminally investigate or prosecute any alcohol or drug abuse patient.[facility] TroyIn the event this information is protected by the Federal Confidentiality of Alcohol and Drug Abuse Patient Records regulations: The Federal rules restrict any use of the information to criminally investigate or prosecute any alcohol or drug abuse patient.[facility] TroyIn the event this information is protected by the Federal Confidentiality of Alcohol and Drug Abuse Patient Records regulations: The Federal rules restrict any use of the information to criminally investigate or prosecute any alcohol or drug abuse patient.[facility] TroyIn the event this information is protected by the Federal Confidentiality of Alcohol and Drug Abuse Patient Records regulations: The Federal rules restrict any use of the information to criminally investigate or prosecute any alcohol or drug abuse patient.[facility] TroyIn the event this information is protected by the Federal Confidentiality of Alcohol and Drug Abuse Patient Records regulations: The Federal rules restrict any use of the information to criminally investigate or prosecute any alcohol or drug abuse patient.[facility] TroyIn the event this information is protected by the Federal Confidentiality of Alcohol and Drug Abuse Patient Records regulations: The Federal rules restrict any use of the information to criminally investigate or prosecute any alcohol or drug abuse patient.[facility] TroyIn the event this information is protected by the Federal Confidentiality of Alcohol and Drug Abuse Patient Records regulations: The Federal rules restrict any use of the information to criminally investigate or prosecute any alcohol or drug abuse patient.[facility] TroyIn the event this information is protected by the Federal Confidentiality of Alcohol and Drug Abuse Patient Records regulations: The Federal rules restrict any use of the information to criminally investigate or prosecute any alcohol or drug abuse patient.[facility] TroyIn the event this information is protected by the Federal Confidentiality of Alcohol and Drug Abuse Patient Records regulations: The Federal rules restrict any use of the information to criminally investigate or prosecute any alcohol or drug abuse patient.[facility] TroyIn the event this information is protected by the Federal Confidentiality of Alcohol and Drug Abuse Patient Records regulations: The Federal rules restrict any use of the information to criminally investigate or prosecute any alcohol or drug abuse patient.[facility] TroyIn the event this information is protected by the Federal Confidentiality of Alcohol and Drug Abuse Patient Records regulations: The Federal rules restrict any use of the information to criminally investigate or prosecute any alcohol or drug abuse patient.[facility] TroyIn the event this information is protected by the Federal Confidentiality of Alcohol and Drug Abuse Patient Records regulations: The Federal rules restrict any use of the information to criminally investigate or prosecute any alcohol or drug abuse patient.[facility] TroyIn the event this information is protected by the Federal Confidentiality of Alcohol and Drug Abuse Patient Records regulations: The Federal rules restrict any use of the information to criminally investigate or prosecute any alcohol or drug abuse patient.[facility] TroyIn the event this information is protected by the Federal Confidentiality of Alcohol and Drug Abuse Patient Records regulations: The Federal rules restrict any use of the information to criminally investigate or prosecute any alcohol or drug abuse patient.[facility] TroyIn the event this information is protected by the Federal Confidentiality of Alcohol and Drug Abuse Patient Records regulations: The Federal rules restrict any use of the information to criminally investigate or prosecute any alcohol or drug abuse patient.[facility] TroyIn the event this information is protected by the Federal Confidentiality of Alcohol and Drug Abuse Patient Records regulations: The Federal rules restrict any use of the information to criminally investigate or prosecute any alcohol or drug abuse patient.[facility] TroyIn the event this information is protected by the Federal Confidentiality of Alcohol and Drug Abuse Patient Records regulations: The Federal rules restrict any use of the information to criminally investigate or prosecute any alcohol or drug abuse patient.[facility] TroyIn the event this information is protected by the Federal Confidentiality of Alcohol and Drug Abuse Patient Records regulations: The Federal rules restrict any use of the information to criminally investigate or prosecute any alcohol or drug abuse patient.[facility] TroyIn the event this information is protected by the Federal Confidentiality of Alcohol and Drug Abuse Patient Records regulations: The Federal rules restrict any use of the information to criminally investigate or prosecute any alcohol or drug abuse patient.[facility] TroyIn the event this information is protected by the Federal Confidentiality of Alcohol and Drug Abuse Patient Records regulations: The Federal rules restrict any use of the information to criminally investigate or prosecute any alcohol or drug abuse patient.[facility] TroyIn the event this information is protected by the Federal Confidentiality of Alcohol and Drug Abuse Patient Records regulations: The Federal rules restrict any use of the information to criminally investigate or prosecute any alcohol or drug abuse patient.[facility] TroyIn the event this information is protected by the Federal Confidentiality of Alcohol and Drug Abuse Patient Records regulations: The Federal rules restrict any use of the information to criminally investigate or prosecute any alcohol or drug abuse patient.[facility] TroyIn the event this information is protected by the Federal Confidentiality of Alcohol and Drug Abuse Patient Records regulations: The Federal rules restrict any use of the information to criminally investigate or prosecute any alcohol or drug abuse patient.[facility] TroyIn the event this information is protected by the Federal Confidentiality of Alcohol and Drug Abuse Patient Records regulations: The Federal rules restrict any use of the information to criminally investigate or prosecute any alcohol or drug abuse patient.[facility] TroyIn the event this information is protected by the Federal Confidentiality of Alcohol and Drug Abuse Patient Records regulations: The Federal rules restrict any use of the information to criminally investigate or prosecute any alcohol or drug abuse patient.[facility] TroyIn the event this information is protected by the Federal Confidentiality of Alcohol and Drug Abuse Patient Records regulations: The Federal rules restrict any use of the information to criminally investigate or prosecute any alcohol or drug abuse patient.[facility] TroyIn the event this information is protected by the Federal Confidentiality of Alcohol and Drug Abuse Patient Records regulations: The Federal rules restrict any use of the information to criminally investigate or prosecute any alcohol or drug abuse patient.[facility] TroyIn the event this information is protected by the Federal Confidentiality of Alcohol and Drug Abuse Patient Records regulations: The Federal rules restrict any use of the information to criminally investigate or prosecute any alcohol or drug abuse patient.[facility] TroyIn the event this information is protected by the Federal Confidentiality of Alcohol and Drug Abuse Patient Records regulations: The Federal rules restrict any use of the information to criminally investigate or prosecute any alcohol or drug abuse patient.[facility] TroyIn the event this information is protected by the Federal Confidentiality of Alcohol and Drug Abuse Patient Records regulations: The Federal rules restrict any use of the information to criminally investigate or prosecute any alcohol or drug abuse patient.[facility] TroyIn the event this information is protected by the Federal Confidentiality of Alcohol and Drug Abuse Patient Records regulations: The Federal rules restrict any use of the information to criminally investigate or prosecute any alcohol or drug abuse patient.[facility] TroyIn the event this information is protected by the Federal Confidentiality of Alcohol and Drug Abuse Patient Records regulations: The Federal rules restrict any use of the information to criminally investigate or prosecute any alcohol or drug abuse patient.[facility] TroyIn the event this information is protected by the Federal Confidentiality of Alcohol and Drug Abuse Patient Records regulations: The Federal rules restrict any use of the information to criminally investigate or prosecute any alcohol or drug abuse patient.[facility] TroyIn the event this information is protected by the Federal Confidentiality of Alcohol and Drug Abuse Patient Records regulations: The Federal rules restrict any use of the information to criminally investigate or prosecute any alcohol or drug abuse patient.[facility] TroyIn the event this information is protected by the Federal Confidentiality of Alcohol and Drug Abuse Patient Records regulations: The Federal rules restrict any use of the information to criminally investigate or prosecute any alcohol or drug abuse patient.[facility] TroyIn the event this information is protected by the Federal Confidentiality of Alcohol and Drug Abuse Patient Records regulations: The Federal rules restrict any use of the information to criminally investigate or prosecute any alcohol or drug abuse patient.[facility] TroyIn the event this information is protected by the Federal Confidentiality of Alcohol and Drug Abuse Patient Records regulations: The Federal rules restrict any use of the information to criminally investigate or prosecute any alcohol or drug abuse patient.[facility] TroyIn the event this information is protected by the Federal Confidentiality of Alcohol and Drug Abuse Patient Records regulations: The Federal rules restrict any use of the information to criminally investigate or prosecute any alcohol or drug abuse patient.[facility] TroyIn the event this information is protected by the Federal Confidentiality of Alcohol and Drug Abuse Patient Records regulations: The Federal rules restrict any use of the information to criminally investigate or prosecute any alcohol or drug abuse patient.[facility] TroyIn the event this information is protected by the Federal Confidentiality of Alcohol and Drug Abuse Patient Records regulations: The Federal rules restrict any use of the information to criminally investigate or prosecute any alcohol or drug abuse patient.[facility] TroyIn the event this information is protected by the Federal Confidentiality of Alcohol and Drug Abuse Patient Records regulations: The Federal rules restrict any use of the information to criminally investigate or prosecute any alcohol or drug abuse patient.[facility] TroyIn the event this information is protected by the Federal Confidentiality of Alcohol and Drug Abuse Patient Records regulations: The Federal rules restrict any use of the information to criminally investigate or prosecute any alcohol or drug abuse patient.[facility] TroyIn the event this information is protected by the Federal Confidentiality of Alcohol and Drug Abuse Patient Records regulations: The Federal rules restrict any use of the information to criminally investigate or prosecute any alcohol or drug abuse patient.[facility] TroyIn the event this information is protected by the Federal Confidentiality of Alcohol and Drug Abuse Patient Records regulations: The Federal rules restrict any use of the information to criminally investigate or prosecute any alcohol or drug abuse patient.[facility] TroyIn the event this information is protected by the Federal Confidentiality of Alcohol and Drug Abuse Patient Records regulations: The Federal rules restrict any use of the information to criminally investigate or prosecute any alcohol or drug abuse patient.[facility] TroyIn the event this information is protected by the Federal Confidentiality of Alcohol and Drug Abuse Patient Records regulations: The Federal rules restrict any use of the information to criminally investigate or prosecute any alcohol or drug abuse patient.[facility] TroyIn the event this information is protected by the Federal Confidentiality of Alcohol and Drug Abuse Patient Records regulations: The Federal rules restrict any use of the information to criminally investigate or prosecute any alcohol or drug abuse patient.[facility] TroyIn the event this information is protected by the Federal Confidentiality of Alcohol and Drug Abuse Patient Records regulations: The Federal rules restrict any use of the information to criminally investigate or prosecute any alcohol or drug abuse patient.[facility] TroyIn the event this information is protected by the Federal Confidentiality of Alcohol and Drug Abuse Patient Records regulations: The Federal rules restrict any use of the information to criminally investigate or prosecute any alcohol or drug abuse patient.[facility] TroyIn the event this information is protected by the Federal Confidentiality of Alcohol and Drug Abuse Patient Records regulations: The Federal rules restrict any use of the information to criminally investigate or prosecute any alcohol or drug abuse patient.[facility] TroyIn the event this information is protected by the Federal Confidentiality of Alcohol and Drug Abuse Patient Records regulations: The Federal rules restrict any use of the information to criminally investigate or prosecute any alcohol or drug abuse patient.[facility] TroyIn the event this information is protected by the Federal Confidentiality of Alcohol and Drug Abuse Patient Records regulations: The Federal rules restrict any use of the information to criminally investigate or prosecute any alcohol or drug abuse patient.[facility] TroyIn the event this information is protected by the Federal Confidentiality of Alcohol and Drug Abuse Patient Records regulations: The Federal rules restrict any use of the information to criminally investigate or prosecute any alcohol or drug abuse patient.[facility] TroyIn the event this information is protected by the Federal Confidentiality of Alcohol and Drug Abuse Patient Records regulations: The Federal rules restrict any use of the information to criminally investigate or prosecute any alcohol or drug abuse patient.[facility] TroyIn the event this information is protected by the Federal Confidentiality of Alcohol and Drug Abuse Patient Records regulations: The Federal rules restrict any use of the information to criminally investigate or prosecute any alcohol or drug abuse patient.[facility] TroyIn the event this information is protected by the Federal Confidentiality of Alcohol and Drug Abuse Patient Records regulations: The Federal rules restrict any use of the information to criminally investigate or prosecute any alcohol or drug abuse patient.[facility] TroyIn the event this information is protected by the Federal Confidentiality of Alcohol and Drug Abuse Patient Records regulations: The Federal rules restrict any use of the information to criminally investigate or prosecute any alcohol or drug abuse patient.[facility] TroyIn the event this information is protected by the Federal Confidentiality of Alcohol and Drug Abuse Patient Records regulations: The Federal rules restrict any use of the information to criminally investigate or prosecute any alcohol or drug abuse patient.[facility] TroyIn the event this information is protected by the Federal Confidentiality of Alcohol and Drug Abuse Patient Records regulations: The Federal rules restrict any use of the information to criminally investigate or prosecute any alcohol or drug abuse patient.[facility] TroyIn the event this information is protected by the Federal Confidentiality of Alcohol and Drug Abuse Patient Records regulations: The Federal rules restrict any use of the information to criminally investigate or prosecute any alcohol or drug abuse patient.[facility] TroyIn the event this information is protected by the Federal Confidentiality of Alcohol and Drug Abuse Patient Records regulations: The Federal rules restrict any use of the information to criminally investigate or prosecute any alcohol or drug abuse patient.[facility] TroyIn the event this information is protected by the Federal Confidentiality of Alcohol and Drug Abuse Patient Records regulations: The Federal rules restrict any use of the information to criminally investigate or prosecute any alcohol or drug abuse patient.[facility] TroyIn the event this information is protected by the Federal Confidentiality of Alcohol and Drug Abuse Patient Records regulations: The Federal rules restrict any use of the information to criminally investigate or prosecute any alcohol or drug abuse patient.[facility] TroyIn the event this information is protected by the Federal Confidentiality of Alcohol and Drug Abuse Patient Records regulations: The Federal rules restrict any use of the information to criminally investigate or prosecute any alcohol or drug abuse patient.[facility] TroyIn the event this information is protected by the Federal Confidentiality of Alcohol and Drug Abuse Patient Records regulations: The Federal rules restrict any use of the information to criminally investigate or prosecute any alcohol or drug abuse patient.[facility] TroyIn the event this information is protected by the Federal Confidentiality of Alcohol and Drug Abuse Patient Records regulations: The Federal rules restrict any use of the information to criminally investigate or prosecute any alcohol or drug abuse patient.[facility] TroyIn the event this information is protected by the Federal Confidentiality of Alcohol and Drug Abuse Patient Records regulations: The Federal rules restrict any use of the information to criminally investigate or prosecute any alcohol or drug abuse patient.[facility] TroyIn the event this information is protected by the Federal Confidentiality of Alcohol and Drug Abuse Patient Records regulations: The Federal rules restrict any use of the information to criminally investigate or prosecute any alcohol or drug abuse patient.[facility] TroyIn the event this information is protected by the Federal Confidentiality of Alcohol and Drug Abuse Patient Records regulations: The Federal rules restrict any use of the information to criminally investigate or prosecute any alcohol or drug abuse patient.[facility] TroyIn the event this information is protected by the Federal Confidentiality of Alcohol and Drug Abuse Patient Records regulations: The Federal rules restrict any use of the information to criminally investigate or prosecute any alcohol or drug abuse patient.[facility] TroyIn the event this information is protected by the Federal Confidentiality of Alcohol and Drug Abuse Patient Records regulations: The Federal rules restrict any use of the information to criminally investigate or prosecute any alcohol or drug abuse patient.[facility] TroyIn the event this information is protected by the Federal Confidentiality of Alcohol and Drug Abuse Patient Records regulations: The Federal rules restrict any use of the information to criminally investigate or prosecute any alcohol or drug abuse patient.[facility] TroyIn the event this information is protected by the Federal Confidentiality of Alcohol and Drug Abuse Patient Records regulations: The Federal rules restrict any use of the information to criminally investigate or prosecute any alcohol or drug abuse patient.[facility] TroyIn the event this information is protected by the Federal Confidentiality of Alcohol and Drug Abuse Patient Records regulations: The Federal rules restrict any use of the information to criminally investigate or prosecute any alcohol or drug abuse patient.[facility] TroyIn the event this information is protected by the Federal Confidentiality of Alcohol and Drug Abuse Patient Records regulations: The Federal rules restrict any use of the information to criminally investigate or prosecute any alcohol or drug abuse patient.[facility] TroyIn the event this information is protected by the Federal Confidentiality of Alcohol and Drug Abuse Patient Records regulations: The Federal rules restrict any use of the information to criminally investigate or prosecute any alcohol or drug abuse patient.[facility] TroyIn the event this information is protected by the Federal Confidentiality of Alcohol and Drug Abuse Patient Records regulations: The Federal rules restrict any use of the information to criminally investigate or prosecute any alcohol or drug abuse patient.[facility] TroyIn the event this information is protected by the Federal Confidentiality of Alcohol and Drug Abuse Patient Records regulations: The Federal rules restrict any use of the information to criminally investigate or prosecute any alcohol or drug abuse patient.[facility] TroyIn the event this information is protected by the Federal Confidentiality of Alcohol and Drug Abuse Patient Records regulations: The Federal rules restrict any use of the information to criminally investigate or prosecute any alcohol or drug abuse patient.[facility] TroyIn the event this information is protected by the Federal Confidentiality of Alcohol and Drug Abuse Patient Records regulations: The Federal rules restrict any use of the information to criminally investigate or prosecute any alcohol or drug abuse patient.[facility] TroyIn the event this information is protected by the Federal Confidentiality of Alcohol and Drug Abuse Patient Records regulations: The Federal rules restrict any use of the information to criminally investigate or prosecute any alcohol or drug abuse patient.[facility] TroyIn the event this information is protected by the Federal Confidentiality of Alcohol and Drug Abuse Patient Records regulations: The Federal rules restrict any use of the information to criminally investigate or prosecute any alcohol or drug abuse patient.[facility] TroyIn the event this information is protected by the Federal Confidentiality of Alcohol and Drug Abuse Patient Records regulations: The Federal rules restrict any use of the information to criminally investigate or prosecute any alcohol or drug abuse patient.[facility] TroyIn the event this information is protected by the Federal Confidentiality of Alcohol and Drug Abuse Patient Records regulations: The Federal rules restrict any use of the information to criminally investigate or prosecute any alcohol or drug abuse patient.[facility] TroyIn the event this information is protected by the Federal Confidentiality of Alcohol and Drug Abuse Patient Records regulations: The Federal rules restrict any use of the information to criminally investigate or prosecute any alcohol or drug abuse patient.[facility] TroyIn the event this information is protected by the Federal Confidentiality of Alcohol and Drug Abuse Patient Records regulations: The Federal rules restrict any use of the information to criminally investigate or prosecute any alcohol or drug abuse patient.[facility] TroyIn the event this information is protected by the Federal Confidentiality of Alcohol and Drug Abuse Patient Records regulations: The Federal rules restrict any use of the information to criminally investigate or prosecute any alcohol or drug abuse patient.[facility] TroyIn the event this information is protected by the Federal Confidentiality of Alcohol and Drug Abuse Patient Records regulations: The Federal rules restrict any use of the information to criminally investigate or prosecute any alcohol or drug abuse patient.[facility] TroyIn the event this information is protected by the Federal Confidentiality of Alcohol and Drug Abuse Patient Records regulations: The Federal rules restrict any use of the information to criminally investigate or prosecute any alcohol or drug abuse patient.[facility] TroyIn the event this information is protected by the Federal Confidentiality of Alcohol and Drug Abuse Patient Records regulations: The Federal rules restrict any use of the information to criminally investigate or prosecute any alcohol or drug abuse patient.[facility] TroyIn the event this information is protected by the Federal Confidentiality of Alcohol and Drug Abuse Patient Records regulations: The Federal rules restrict any use of the information to criminally investigate or prosecute any alcohol or drug abuse patient.[facility] TroyIn the event this information is protected by the Federal Confidentiality of Alcohol and Drug Abuse Patient Records regulations: The Federal rules restrict any use of the information to criminally investigate or prosecute any alcohol or drug abuse patient.[facility] TroyIn the event this information is protected by the Federal Confidentiality of Alcohol and Drug Abuse Patient Records regulations: The Federal rules restrict any use of the information to criminally investigate or prosecute any alcohol or drug abuse patient.[facility] TroyIn the event this information is protected by the Federal Confidentiality of Alcohol and Drug Abuse Patient Records regulations: The Federal rules restrict any use of the information to criminally investigate or prosecute any alcohol or drug abuse patient.[facility] TroyIn the event this information is protected by the Federal Confidentiality of Alcohol and Drug Abuse Patient Records regulations: The Federal rules restrict any use of the information to criminally investigate or prosecute any alcohol or drug abuse patient.[facility] TroyIn the event this information is protected by the Federal Confidentiality of Alcohol and Drug Abuse Patient Records regulations: The Federal rules restrict any use of the information to criminally investigate or prosecute any alcohol or drug abuse patient.[facility] TroyIn the event this information is protected by the Federal Confidentiality of Alcohol and Drug Abuse Patient Records regulations: The Federal rules restrict any use of the information to criminally investigate or prosecute any alcohol or drug abuse patient.[facility] TroyIn the event this information is protected by the Federal Confidentiality of Alcohol and Drug Abuse Patient Records regulations: The Federal rules restrict any use of the information to criminally investigate or prosecute any alcohol or drug abuse patient.[facility] TroyIn the event this information is protected by the Federal Confidentiality of Alcohol and Drug Abuse Patient Records regulations: The Federal rules restrict any use of the information to criminally investigate or prosecute any alcohol or drug abuse patient.[facility] TroyIn the event this information is protected by the Federal Confidentiality of Alcohol and Drug Abuse Patient Records regulations: The Federal rules restrict any use of the information to criminally investigate or prosecute any alcohol or drug abuse patient.[facility] TroyIn the event this information is protected by the Federal Confidentiality of Alcohol and Drug Abuse Patient Records regulations: The Federal rules restrict any use of the information to criminally investigate or prosecute any alcohol or drug abuse patient.[facility] TroyIn the event this information is protected by the Federal Confidentiality of Alcohol and Drug Abuse Patient Records regulations: The Federal rules restrict any use of the information to criminally investigate or prosecute any alcohol or drug abuse patient.[facility] TroyIn the event this information is protected by the Federal Confidentiality of Alcohol and Drug Abuse Patient Records regulations: The Federal rules restrict any use of the information to criminally investigate or prosecute any alcohol or drug abuse patient.[facility] TroyIn the event this information is protected by the Federal Confidentiality of Alcohol and Drug Abuse Patient Records regulations: The Federal rules restrict any use of the information to criminally investigate or prosecute any alcohol or drug abuse patient.[facility] TroyIn the event this information is protected by the Federal Confidentiality of Alcohol and Drug Abuse Patient Records regulations: The Federal rules restrict any use of the information to criminally investigate or prosecute any alcohol or drug abuse patient.[facility] TroyIn the event this information is protected by the Federal Confidentiality of Alcohol and Drug Abuse Patient Records regulations: The Federal rules restrict any use of the information to criminally investigate or prosecute any alcohol or drug abuse patient.[facility] TroyIn the event this information is protected by the Federal Confidentiality of Alcohol and Drug Abuse Patient Records regulations: The Federal rules restrict any use of the information to criminally investigate or prosecute any alcohol or drug abuse patient.[facility] TroyIn the event this information is protected by the Federal Confidentiality of Alcohol and Drug Abuse Patient Records regulations: The Federal rules restrict any use of the information to criminally investigate or prosecute any alcohol or drug abuse patient.[facility] TroyIn the event this information is protected by the Federal Confidentiality of Alcohol and Drug Abuse Patient Records regulations: The Federal rules restrict any use of the information to criminally investigate or prosecute any alcohol or drug abuse patient.[facility] TroyIn the event this information is protected by the Federal Confidentiality of Alcohol and Drug Abuse Patient Records regulations: The Federal rules restrict any use of the information to criminally investigate or prosecute any alcohol or drug abuse patient.[facility] TroyIn the event this information is protected by the Federal Confidentiality of Alcohol and Drug Abuse Patient Records regulations: The Federal rules restrict any use of the information to criminally investigate or prosecute any alcohol or drug abuse patient.[facility] TroyIn the event this information is protected by the Federal Confidentiality of Alcohol and Drug Abuse Patient Records regulations: The Federal rules restrict any use of the information to criminally investigate or prosecute any alcohol or drug abuse patient.[facility] TroyIn the event this information is protected by the Federal Confidentiality of Alcohol and Drug Abuse Patient Records regulations: The Federal rules restrict any use of the information to criminally investigate or prosecute any alcohol or drug abuse patient.[facility] TroyIn the event this information is protected by the Federal Confidentiality of Alcohol and Drug Abuse Patient Records regulations: The Federal rules restrict any use of the information to criminally investigate or prosecute any alcohol or drug abuse patient.[facility] TroyIn the event this information is protected by the Federal Confidentiality of Alcohol and Drug Abuse Patient Records regulations: The Federal rules restrict any use of the information to criminally investigate or prosecute any alcohol or drug abuse patient.[facility] TroyIn the event this information is protected by the Federal Confidentiality of Alcohol and Drug Abuse Patient Records regulations: The Federal rules restrict any use of the information to criminally investigate or prosecute any alcohol or drug abuse patient.[facility] TroyIn the event this information is protected by the Federal Confidentiality of Alcohol and Drug Abuse Patient Records regulations: The Federal rules restrict any use of the information to criminally investigate or prosecute any alcohol or drug abuse patient.[facility] TroyIn the event this information is protected by the Federal Confidentiality of Alcohol and Drug Abuse Patient Records regulations: The Federal rules restrict any use of the information to criminally investigate or prosecute any alcohol or drug abuse patient.[facility] TroyIn the event this information is protected by the Federal Confidentiality of Alcohol and Drug Abuse Patient Records regulations: The Federal rules restrict any use of the information to criminally investigate or prosecute any alcohol or drug abuse patient.[facility] TroyIn the event this information is protected by the Federal Confidentiality of Alcohol and Drug Abuse Patient Records regulations: The Federal rules restrict any use of the information to criminally investigate or prosecute any alcohol or drug abuse patient.[facility] TroyIn the event this information is protected by the Federal Confidentiality of Alcohol and Drug Abuse Patient Records regulations: The Federal rules restrict any use of the information to criminally investigate or prosecute any alcohol or drug abuse patient.[facility] TroyIn the event this information is protected by the Federal Confidentiality of Alcohol and Drug Abuse Patient Records regulations: The Federal rules restrict any use of the information to criminally investigate or prosecute any alcohol or drug abuse patient.[facility] TroyIn the event this information is protected by the Federal Confidentiality of Alcohol and Drug Abuse Patient Records regulations: The Federal rules restrict any use of the information to criminally investigate or prosecute any alcohol or drug abuse patient.[facility] TroyIn the event this information is protected by the Federal Confidentiality of Alcohol and Drug Abuse Patient Records regulations: The Federal rules restrict any use of the information to criminally investigate or prosecute any alcohol or drug abuse patient.[facility] TroyIn the event this information is protected by the Federal Confidentiality of Alcohol and Drug Abuse Patient Records regulations: The Federal rules restrict any use of the information to criminally investigate or prosecute any alcohol or drug abuse patient.[facility] TroyIn the event this information is protected by the Federal Confidentiality of Alcohol and Drug Abuse Patient Records regulations: The Federal rules restrict any use of the information to criminally investigate or prosecute any alcohol or drug abuse patient.[facility] TroyIn the event this information is protected by the Federal Confidentiality of Alcohol and Drug Abuse Patient Records regulations: The Federal rules restrict any use of the information to criminally investigate or prosecute any alcohol or drug abuse patient.[facility] TroyIn the event this information is protected by the Federal Confidentiality of Alcohol and Drug Abuse Patient Records regulations: The Federal rules restrict any use of the information to criminally investigate or prosecute any alcohol or drug abuse patient.[facility] TroyIn the event this information is protected by the Federal Confidentiality of Alcohol and Drug Abuse Patient Records regulations: The Federal rules restrict any use of the information to criminally investigate or prosecute any alcohol or drug abuse patient.[facility] TroyIn the event this information is protected by the Federal Confidentiality of Alcohol and Drug Abuse Patient Records regulations: The Federal rules restrict any use of the information to criminally investigate or prosecute any alcohol or drug abuse patient.[facility] TroyIn the event this information is protected by the Federal Confidentiality of Alcohol and Drug Abuse Patient Records regulations: The Federal rules restrict any use of the information to criminally investigate or prosecute any alcohol or drug abuse patient.[facility] TroyIn the event this information is protected by the Federal Confidentiality of Alcohol and Drug Abuse Patient Records regulations: The Federal rules restrict any use of the information to criminally investigate or prosecute any alcohol or drug abuse patient.[facility] TroyIn the event this information is protected by the Federal Confidentiality of Alcohol and Drug Abuse Patient Records regulations: The Federal rules restrict any use of the information to criminally investigate or prosecute any alcohol or drug abuse patient.[facility] TroyIn the event this information is protected by the Federal Confidentiality of Alcohol and Drug Abuse Patient Records regulations: The Federal rules restrict any use of the information to criminally investigate or prosecute any alcohol or drug abuse patient.[facility] TroyIn the event this information is protected by the Federal Confidentiality of Alcohol and Drug Abuse Patient Records regulations: The Federal rules restrict any use of the information to criminally investigate or prosecute any alcohol or drug abuse patient.[facility] TroyIn the event this information is protected by the Federal Confidentiality of Alcohol and Drug Abuse Patient Records regulations: The Federal rules restrict any use of the information to criminally investigate or prosecute any alcohol or drug abuse patient.[facility] TroyIn the event this information is protected by the Federal Confidentiality of Alcohol and Drug Abuse Patient Records regulations: The Federal rules restrict any use of the information to criminally investigate or prosecute any alcohol or drug abuse patient.[facility] TroyIn the event this information is protected by the Federal Confidentiality of Alcohol and Drug Abuse Patient Records regulations: The Federal rules restrict any use of the information to criminally investigate or prosecute any alcohol or drug abuse patient.[facility] TroyIn the event this information is protected by the Federal Confidentiality of Alcohol and Drug Abuse Patient Records regulations: The Federal rules restrict any use of the information to criminally investigate or prosecute any alcohol or drug abuse patient.[facility] TroyIn the event this information is protected by the Federal Confidentiality of Alcohol and Drug Abuse Patient Records regulations: The Federal rules restrict any use of the information to criminally investigate or prosecute any alcohol or drug abuse patient.[facility] TroyIn the event this information is protected by the Federal Confidentiality of Alcohol and Drug Abuse Patient Records regulations: The Federal rules restrict any use of the information to criminally investigate or prosecute any alcohol or drug abuse patient.[facility] TroyIn the event this information is protected by the Federal Confidentiality of Alcohol and Drug Abuse Patient Records regulations: The Federal rules restrict any use of the information to criminally investigate or prosecute any alcohol or drug abuse patient.[facility] TroyIn the event this information is protected by the Federal Confidentiality of Alcohol and Drug Abuse Patient Records regulations: The Federal rules restrict any use of the information to criminally investigate or prosecute any alcohol or drug abuse patient.[facility] Reason for Visit (unrecogniz ed section and content) Reason Comments Physical Therapy Specialty Diagnoses / Procedures Referred By Venessa bryant Referred To Contact [facility] Diagnoses Pes anserinus bursitis of right knee It band syndrome, right Procedures CONSULT TO PHYSICAL THERAPY PHYSICAL THERAPY EVALUATION HIGH COMPLEX 45 MINS Donavon Patricia MD [address] [place] [address] Phone: tel: fax: [facility] [address] [place] [address] Referral ID Status Reason Start Date Expiration Date Visits Requested Visits Authorized [id number] Authorized Auto-Generat ed Referral 03/23/2024 03/22/2025 99 99 Reason Comments New Pain Specialty Diagnoses / Procedures Referred By Venessa t Referred To Contact Sports Medicine / ORTHOPAEDIC SURGERY Diagnoses Pain in right wrist RIGHT WRIST US GUIDED INJECTION Referred By Procedures OFFICE/OUTPATIENT NEW MODERATE MDM 45 MINUTES OFFICE/OUTPATIENT ESTABLISHED MOD MDM 30 MIN TY NEW NO ARMENAY Delfin Kerr MD [facility] [address] [place] [address] Juan Jose KeysDO [address] [place] [address] Referral ID Status Reason Start Date Expiration Date V isits Requested Visits Authorized [id number] Authorized 09/18/2023 03/22/2024 99 99 Specialty Diagnoses / Procedures Referred By Contac t Referred To Contact Physical Therapy / PHYSICAL THERAPY Diagnoses Stiffness of right knee Procedures CONSULT TO PHYSICAL THERAPY PHYSICAL THERAPY EVALUATION HIGH COMPLEX 45 MINS Rafi Fox APRN.CD REACTOR OPERATOR [address] [address] Aston Koo, PT Referral ID Status Reason Start Date Expiration Date Visits Requested Visits Authorized [id number] Authorized Auto-Generat ed Referral 03/23/2022 03/22/2023 99 99 Reason Comments Multiple Concerns hair loss, back pain , referral to Ortho for injection in knuckle Reason Comments Results Reason Comments Results Reason Comments appointment prep Reason Comments Established Patient loose skin with yeas t infection possible x 1 year Reason Comments Neck Pain headache x 1 day Reason Comments Established Patient Pain Reason Comments Radio Gen RMP Reason Comments Request for physicia n to follow for home care Reason Comments Home Care CONFIRMATION CALL Reason Comments Orders Reason Comments Home Care PT SOC-needs follow- up Reason Onset Date Comments Transition Of Care 11/20/2021 TCM Initial H ospital Discharge 11/19/2021 Reason Comments Home Care Reason Comments Telemedicine Reason Onset Date Comments Transition Of Care 11/20/2021 TCM Pharmacy- Hospital discharge 11/19/21 Reason Onset Date Comments Transition Of Care 12/03/2021 TCM Follow Up Reason Comments Post Op Pain Established Patient Reason Onset Date Comments Transition Of Care 12/11/2021 TCM Follow Up Reason Comments Appointment Reason Onset Date Comments Transition Of Care 12/17/2021 TCM Follow Up Reason Comments Patient Question Reason Comments Established Patient Post Op Pain Reason Comments 6 Month Exam Reason Comments Order Request Reason Onset Date Comments Refill Request 02/11/2022 Reason Comments 04/02/[address] Toscano Reason Comments Patient Assistance Reason Comments Consult colonoscopy Specialty Diagnoses / Procedures Referred By Contac t Referred To Contact General Surgery Diagnoses Screening for colon cancer Procedures CONSULT TO GENERAL SURGERY OFFICE/OUTPATIENT [facility] 60-74 MINUTES Christine Morgan APRN.CD REACTOR OPERATOR [address] [place] [address] Referral ID Status Reason Start Date Expiration Date V isits Requested Visits Authorized [id number] Closed PCP Requested Referral 01/29/2022 01/29/2023 1 1 Reason Comments Forms Reason Comments Consult Specialty Diagnoses / Procedures Referred By Contac t Referred To Contact Colon and Rectal Surgery Diagnoses Anal sphincter incontinence Procedures CONSULT TO COLO-RECTAL SURGERY OFFICE/OUTPATIENT [facility] 60-74 MINUTES Dionna Fong PA-C [address] [facility] [address] Referral ID Status Reason Start Date Expiration Date V isits Requested Visits Authorized [id number] Closed PCP Requested Referral 02/12/2022 02/12/2023 1 1 Reason Comments Cough Cough and SOB x 5 da ys Reason Onset Date Comments Refill Request 04/10/2022 Reason Comments Follow Up Reason Comments Follow Up Reason Comments No Show Reason Comments Chaperon - Other Reason Comments Pre-Op Teaching Reason Comments Anesthesia Consult Specialty Diagnoses / Procedures Referred By Contac t Referred To Contact CT IMAGING Diagnoses Presence of right artificial hip joint Post-traumatic osteoarthritis of right hip Procedures CT HIP WO IVCON RT CT LOWER EXTREMITY W/O CONTRAST MATERIAL Rafi Fox APRN.CD REACTOR OPERATOR [address] [address] [address] Imaging Referral ID Status Reason Start Date Expiration Date V isits Requested Visits Authorized [id number] Closed Auto-Generate d Referral 05/16/2022 06/15/2023 1 1 Reason Comments Shoulder Injury right after fall x 2 days Reason Comments Orders Appointment Specialty Diagnoses / Procedures Referred By Contac t Referred To Contact CT IMAGING Diagnoses Presence of right artificial hip joint Procedures CT HIP WO IVCON RIGHT CT LOWER EXTREMITY W/O CONTRAST MATERIAL Rafi Fox APRN.CD REACTOR OPERATOR [address] [address] [address] Imaging Referral ID Status Reason Start Date Expiration Date V isits Requested Visits Authorized [id number] Closed Auto-Generate d Referral 06/13/2022 07/13/2023 1 1 Reason Comments Pre-Op Exam Reason Comments Home Care Medication interacti on Specialty Diagnoses / Procedures Referred By Contac t Referred To Contact [facility] [address] [place] [address] Referral ID Status Reason Start Date Expiration Date Visits Re quested Visits Authorized [id number] 1 1 Reason Comments Home Care Bandage removal Reason Comments Established Patient Follow Up Post Op Hip Replacement Reason Comments Recheck 6 Month Exam Reason Onset Date Comments cdm 08/19/2022 enrollment Specialty Diagnoses / Procedures Referred By Contac t Referred To Contact CT IMAGING Diagnoses History of partial knee replacement Procedures CT KNEE WO IVCON RT CT LOWER EXTREMITY W/O CONTRAST MATERIAL Donavon Patricia MD [address] [place] [address] [id number] [address] Referral ID Status Reason Start Date Expiration Date V isits Requested Visits Authorized [id number] Closed Auto-Generate d Referral 04/22/2022 05/22/2023 1 1 Reason Comments Home Care Confirmation call Referral ID Status Reason Start Date Expiration Date Visits Re quested Visits Authorized [id number] 1 1 Reason Comments Patient Update Reason Comments Home Care OP PT orders Reason Comments Established Patient Follow Up Post Op Knee Replacement Reason Comments Patient Update Reason Comments PT Eval Specialty Diagnoses / Procedures Referred By Contac t Referred To Contact [facility] Diagnoses Stiffness of right knee Procedures CONSULT TO PHYSICAL THERAPY PHYSICAL THERAPY EVALUATION HIGH COMPLEX 45 MINS Rafi Fox, KULWANT.CD REACTOR OPERATOR [address] [address] [facility] [address] [address] Referral ID Status Reason Start Date Expiration Date Visits Requested Visits Authorized [id number] Authorized Auto-Generat ed Referral 03/23/2022 03/22/2023 99 99 Reason Onset Date Comments community monitoring outreach 10/08/2022 Mo nthly cdm call Specialty Diagnoses / Procedures Referred By Contac t Referred To Contact [facility] Diagnoses Stiffness of right knee Procedures CONSULT TO PHYSICAL THERAPY PHYSICAL THERAPY EVALUATION HIGH COMPLEX 45 MINS Rafi Fox APRN.[address] [address] [facility] [place] [address] [place] [address] Reason Comments Post Op Knee Replacement Reason Onset Date Comments community monitoring outreach 11/03/2022 Mo nthly cdm call Reason Comments Dizziness Reason Onset Date Comments Nurse Triage Call 11/12/2022 Reason Comments Pre-Op Visit Panniculectomy on 11/26/22 @ [facility] Dizziness See triage note Reason Comments OT Plan of Care Reason Onset Date Comments communiyt monitoring outreach 12/30/2022 Mo nthly cdm call Reason Onset Date Comments Refill Request 12/30/2022 Reason Onset Date Comments Refill Request 01/05/2023 Reason Comments Established Patient Follow Up Knee Pain Post Op Specialty Diagnoses / Procedures Referred By Contact Referred To Contact Orthopedics / ORTHOPAEDIC SURGERY Diagnoses R-TKA 09/15/22, pain in R knee Procedures TY ESTABLISH Rafi Fox APRN.[address] [address] Rafi Fox APRN[address] [address] Referral ID Status Reason Start Date Expiration Date Visits Re quested Visits Authorized [id number] Closed 01/01/2023 03/22/2023 1 1 Reason Onset Date Comments community monitoring outreach 01/14/2023 Bi monthly cdm call Reason Comments Radiology US Specialty Diagnoses / Procedures Referred By Contac t Referred To Contact US IMAGING Diagnoses Right calf pain Status post right knee replacement Procedures US DVT LOWER RIGHT DUP-SCAN XTR VEINS UNILATERAL/LIMITED STUDY Rafi Fox APRN.[address] [address] [facility] [place] [address] Referral ID Status Reason Start Date Expiration Date V isits Requested Visits Authorized [id number] Closed Auto-Generate d Referral 09/26/2022 10/26/2023 1 1 Reason Comments Established Patient Pain Last seen 10/17/21 by BP chronic right kn ee and hand pain Specialty Diagnoses / Procedures Referred By Contact Referred To Contact Orthopedics / ORTHOPAEDIC SURGERY Diagnoses Right wrist pain right wrist pain, requesting cortisone inj Procedures TY NEW ORTH/SPORTS Christine Morgan, KULWANT.CD REACTOR OPERATOR [address] [place] [address] Nicole Coronado PA-C [address] [place] [address] Referral ID Status Reason Start Date Expiration Date Visits Re quested Visits Authorized [id number] Closed 01/28/2023 03/22/2023 1 1 Reason Onset Date Comments community monitoring outreach 05/19/2023 Mo nthly cdm call Reason Onset Date Comments Refill Request 06/14/2023 Reason Onset Date Comments community monitoring outreach 06/15/2023 Mo nthly cdm call Reason Comments CGM Specialty Diagnoses / Procedures Referred By Contac t Referred To Contact Orthopedics / ORTHOPAEDIC SURGERY Diagnoses Right wrist pain Right wrist pain/requesting cortisone injection Procedures OFFICE/OUTPATIENT ESTABLISHED HIGH MDM 40 MIN TY ESTABLISH Nicole Coronado PA-C [address] [place] [address] Nicloe Coronado PA-C [address] [place] [address] Referral ID Status Reason Start Date Expiration Date V isits Requested Visits Authorized [id number] Authorized 06/15/2023 03/22/2024 99 99 Reason Onset Date Comments community monitoring outreach 07/14/2023 Mo nthly cdm call Reason Onset Date Comments Transition Of Care 08/03/2023 TCM Reason Comments Established Patient Pain Specialty Diagnoses / Procedures Referred By Contac t Referred To Contact Orthopedics / ORTHOPAEDIC SURGERY Diagnoses Right wrist pain Right wrist pain/requesting cortisone injection Procedures OFFICE/OUTPATIENT ESTABLISHED HIGH MDM 40 MIN TY ESTABLISH Nicole Coronado PA-C [address] [place] [address] Nicole Coronado PA-C [address] [place] [address] Reason Comments Recheck Follow up Hospital Follow Up [facility] dx :SBO Reason Comments Post Op Follow Up 07/26/23 SBO Reason Onset Date Comments [facility] LIOR RN 08/18/2023 Adan Utilizat ion Review per Payer Request. Reason Comments type 2 diabetes Not checking sugars for past several weeks Specialty Diagnoses / Procedures Referred By Contcatie t Referred To Contact Endocrinology / ENDOCRINOLOGY Diagnoses Type 2 diabetes mellitus with stage 3 chronic kidney disease, without long-term current use of insulin, unspecified whether stage 3a or 3b CKD (HCC) Procedures CONSULT TO ENDOCRINOLOGY OFFICE/OUTPATIENT [facility] 60 MINUTES Christine Morgan, PHOTOGRAPHIC INTELLIGENCE OFFICER.CD REACTOR OPERATOR [address] [place] [phone] Marimar Wilcox, PHOTOGRAPHIC INTELLIGENCE OFFICER.CD REACTOR OPERATOR [address] [place] [id number] Referral ID Status Reason Start Date Expiration Date V isits Requested Visits Authorized [id number] Closed PCP Requested Referral 07/09/2023 03/22/2024 1 1 Reason Comments Insurance Authorization Trulicity Reason Onset Date Comments Refill Request 08/27/2023 Reason Comments Patient Update Marilin Carejolynn applicat ion Reason Comments Radiology MRI Reason Onset Date Comments community monitoring outreach 09/08/2023 Mo nthly cdm call Reason Comments Pain (foot) Right Yesterday 5pm Patient states she jammed her foot into some furniture (love seat) patient states she was walking to fast and wasn't paying attention At home. Reason Onset Date Comments Refill Request 09/26/2023 Reason Onset Date Comments community monitoring outreach 10/05/2023 Mo nthly cdm call Reason Comments Fall Fell yesterday rt hp pain - had a hip replacement 03/2022Rt rib pain Reason Onset Date Comments Refill Request 10/09/2023 Reason Comments Established Patient Specialty Diagnoses / Procedures Referred By Contcatie t Referred To Contact Colon and Rectal Surgery / COLORECTAL SURGERY Diagnoses : Anal sphincter 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]--[employer]AC[employer] 2019 Procedures EST DDI PATIENT Self Sindy Mcgregor MD [address] [place] [address] Referral ID Status Reason Start Date Expiration Date Visits Re quested Visits Authorized [id number] Closed 10/06/2023 03/22/2024 1 1 Reason Onset Date Comments community monitoring outreach 11/03/2023 Mo nthly cdm call Reason Onset Date Comments community monitoring outreach 12/01/2023 Mo nthly cdm call Reason Comments 6 Month Exam ER F/U [facility] 12/13 dx: foot pa in Reason Comments fax order to [facility] Reason Onset Date Comments community monitoring outreach 12/25/2023 Mo nthly cdm call Reason Comments Radiology CT Specialty Diagnoses / Procedures Referred By Contac t Referred To Contact CT IMAGING Diagnoses Pancreatic cyst Procedures CT PANCREAS W IVCON CT ABDOMEN W/CONTRAST Christine Morgan, KULWANT.CD REACTOR OPERATOR [address] [place] [address] Ct Imaging [place] [address] Referral ID Status Reason Start Date Expiration Date V isits Requested Visits Authorized [id number] Closed Auto-Generate d Referral 12/15/2023 01/13/2025 1 1 Reason Comments Recheck 1 month follow up Reason Onset Date Comments community monitoring outreach 02/23/2024 Mo nthly cdm call Reason Comments ED Follow Up New Specialty Diagnoses / Procedures Referred By Contac t Referred To Contact Orthopedics / ORTHOPAEDIC SURGERY Diagnoses Follow-up exam ER FU right foot fx of 5th metarcal, and another fx by toes. Prescription given and is not working, cannot sleep, cannot walk. Patient fell 2x in one day. Seen at [facility] no imaging available Procedures OFFICE/OUTPATIENT NEW SF MDM 15 MINUTES OFFICE/OUTPATIENT NEW LOW MDM 30 MINUTES OFFICE/OUTPATIENT NEW MODERATE MDM 45 MINUTES OFFICE/OUTPATIENT NEW HIGH MDM 60 MINUTES TY NEW FRACTURE Self Curtis Ferguson MD [address] [address] Referral ID Status Reason Start Date Expiration Date V isits Requested Visits Authorized [id number] Closed OON/Self Pay Override 01/18/2024 03/22/2024 1 1 Reason Onset Date Comments Refill Request 03/03/2024 Reason Onset Date Comments Refill Request 03/07/2024 Reason Comments PT Eval Specialty Diagnoses / Procedures Referred By Contac t Referred To Contact PHYSICAL THERAPY Diagnoses Falls Procedures CONSULT TO PHYSICAL THERAPY PHYSICAL THERAPY EVALUATION HIGH COMPLEX 45 MINS Christine Morgan, KULWANT.CD REACTOR OPERATOR [address] [place] [address] [facility] [address] [address] [place] [address] Referral ID Status Reason Start Date Expiration Date Visits Requested Visits Authorized [id number] Authorized Auto-Generat ed Referral 03/23/2023 03/22/2024 99 99 Specialty Diagnoses / Procedures Referred By Venessa t Referred To Contact Orthopedics / ORTHOPAEDIC SURGERY Diagnoses Right shoulder pain Procedures [facility]/SPOR[facility] Delfin Kerr MD [address] [facility] [place] [address] Delfin Kerr MD [address] [place] [address] Referral ID Status Reason Start Date Expiration Date V isits Requested Visits Authorized [id number] New Request 03/29/2024 06/27/2024 1 1 Reason Comments Wrist Pain Reason Onset Date Comments Refill Request 05/05/2024 Reason Comments Type 2 Diabetes Reason Comments Updated OV Notes to DME Reason Onset Date Comments Refill Request 05/18/2024 Reason Onset Date Comments Population Health Navigation Outreach 06/27/2024 [facility] Reason Onset Date Comments Results 07/19/2024 Reason Onset Date Comments Care Coordination 07/27/2024 [facility] Telephonic Outreach Reason Comments Post Op Knee Replacement Knee Pain Reason Onset Date Comments Refill Request 08/17/2024 Reason Comments Established Patient Pain Reason Comments [facility] - Other [place] Patient Assistance application Reason Comments New Reason Comments Follow Up Reason Onset Date Comments Results 09/28/2024 Reason Comments Pain New Reason Comments Non-insulin Dependent Diabetes Mellitus Reason Comments Geriatrics Consults Geriatrics Specialty Diagnoses / Procedures Referred By Contac t Referred To Contact Gerontology Diagnoses Memory loss Procedures CONSULT TO GERIATRICS OFFICE/OUTPATIENT CARE ONE AT [facility] 60 MINUTES Christine Morgan, PHOTOGRAPHIC INTELLIGENCE OFFICER.CD REACTOR OPERATOR [address] [place] [address] Phone: tel: fax: Referral ID Status Reason Start Date Expiration Date V isits Requested Visits Authorized [id number] Closed PCP Requested Referral 09/21/2024 09/21/2025 1 1 Reason Comments Orders need order changed Reason Comments Consult surgery at [facility] on 12/06/24 Reason Comments Established [facility] Care Teams (unrecognized sec tion and content) Caustic Room Attendant Relationship Specialty Start Date End Date Christine Morgan, PHOTOGRAPHIC INTELLIGENCE OFFICER.CD REACTOR OPERATOR [address] [place], [place] [address] PCP - General Family Practice 02/10/20 Caustic Room Attendant Relationship Specialty Start Date End Date Christine Morgan, PHOTOGRAPHIC INTELLIGENCE OFFICER.CD REACTOR OPERATOR [address] [place] [address] PCP - General Family Practice 02/10/20 Caustic Room Attendant Relationship Specialty Start Date End Date Christine Morgan, PHOTOGRAPHIC INTELLIGENCE OFFICER.CD REACTOR OPERATOR [address] [place] [address] PCP - General Family Practice 02/10/20 Caustic Room Attendant Relationship Specialty Start Date End Date Christine Morgan, PHOTOGRAPHIC INTELLIGENCE OFFICER.CD REACTOR OPERATOR [address] [place] [address] PCP - General Family Practice 02/10/20 Caustic Room Attendant Relationship Specialty Start Date End Date Christine Morgan, PHOTOGRAPHIC INTELLIGENCE OFFICER.CD REACTOR OPERATOR [address] [place] [address] PCP - General Family Practice 02/10/20 Caustic Room Attendant Relationship Specialty Start Date End Date Christine Morgan, PHOTOGRAPHIC INTELLIGENCE OFFICER.CD REACTOR OPERATOR [address] [place] [address] PCP - General Family Practice 02/10/20 Caustic Room Attendant Relationship Specialty Start Date End Date Christine Morgan, PHOTOGRAPHIC INTELLIGENCE OFFICER.CD REACTOR OPERATOR [address] [facility] [place] [address] PCP - General Family Practice 02/10/20 Caustic Room Attendant Relationship Specialty Start Date End Date Christine Morgan, PHOTOGRAPHIC INTELLIGENCE OFFICER.CD REACTOR OPERATOR [address] [place] [address] PCP - General Family Practice 02/10/20 Caustic Room Attendant Relationship Specialty Start Date End Date Christine Morgan, PHOTOGRAPHIC INTELLIGENCE OFFICER.CD REACTOR OPERATOR [address] [place] [address] PCP - General Family Practice 02/10/20 Caustic Room Attendant Relationship Specialty Start Date End Date Christine Morgan, PHOTOGRAPHIC INTELLIGENCE OFFICER.CD REACTOR OPERATOR [address] [place] [address] PCP - General Family Practice 02/10/20 Caustic Room Attendant Relationship Specialty Start Date End Date Christine Morgan, PHOTOGRAPHIC INTELLIGENCE OFFICER.CD REACTOR OPERATOR [address] [place] [address] PCP - General Family Practice 02/10/20 Kaylen Lindsey DO [facility] [place] [address] Home Care Physician Orthopedics 11/18/21 Caustic Room Attendant Relationship Specialty Start Date End Date Christine Morgan, PHOTOGRAPHIC INTELLIGENCE OFFICER.CD REACTOR OPERATOR [address] [place] [address] PCP - General Family Practice 02/10/20 Kaylen Lindsey DO [facility] [place] [address] Home Care Physician Orthopedics 11/18/21 Caustic Room Attendant Relationship Specialty Start Date End Date Christine Morgan, PHOTOGRAPHIC INTELLIGENCE OFFICER.CD REACTOR OPERATOR [address] [place] [address] PCP - General Family Practice 02/10/20 Kaylen Lindsey, DO [address] [place] [address] Home Care Physician Orthopedics 11/18/21 Kurt Eli MD [address] [place] [address] Referring Internal Medicine 11/19/21 Saniya Martínez, PT [address] [place] [address] Family Dinner Service Specialist Post Acute Care 11/19/21 Homa Hernandez, RN [address] [place], [place] [id number] Primary Care Funeral Planning Counselor 11/20/21 12/18/21 Caustic Room Attendant Relationship Specialty Start Date End Date Christine Morgan, PHOTOGRAPHIC INTELLIGENCE OFFICER.CD REACTOR OPERATOR [address] [place] [address] PCP - General Family Practice 02/10/20 Kaylen Lindsey DO [address] [place] [address] Home Care Physician Orthopedics 11/18/21 Kurt Eli MD [address] [place] [address] Referring Internal Medicine 11/19/21 Saniya Martínez, PT [address] [place] [address] Family Dinner Service Specialist Post Acute Care 11/19/21 Homa Hernandez, GRACE [address] [place], [place] [id number] Primary Care Funeral Planning Counselor 11/20/21 12/18/21 Caustic Room Attendant Relationship Specialty Start Date End Date Christine Morgan, PHOTOGRAPHIC INTELLIGENCE OFFICER.CD REACTOR OPERATOR [address] [place] [address] PCP - General Family Practice 02/10/20 Kaylen Lindsey, DO [address] [place] [address] Home Care Physician Orthopedics 11/18/21 Kurt Eli MD [address] [place] [address] Referring Internal Medicine 11/19/21 Saniya Martínez, PT [address] [place] [address] Family Dinner Service Specialist Post Acute Care 11/19/21 Homa Hernandez, RN [address] [place] [address] Primary Care Funeral Planning Counselor 11/20/21 12/18/21 Caustic Room Attendant Relationship Specialty Start Date End Date Christine Morgan, KULWANT.CD REACTOR OPERATOR [address] [place] [address] PCP - General Family Practice 02/10/20 Kaylen Lindsey, DO [facility] [place] [address] Home Care Physician Orthopedics 11/18/21 Kurt Eli MD [address] [place] [address] Referring Internal Medicine 11/19/21 Saniya Martínez, PT [address] [place] [address] Family Dinner Service Specialist Post Acute Care 11/19/21 Homa Hernandez, GRACE [address] [place] [address] Primary Care Funeral Planning Counselor 11/20/21 12/18/21 Caustic Room Attendant Relationship Specialty Start Date End Date Christine Morgan, PHOTOGRAPHIC INTELLIGENCE OFFICER.CD REACTOR OPERATOR [address] [place] [address] PCP - General Family Practice 02/10/20 Kaylen Lindsey, DO [address] [place] [address] Home Care Physician Orthopedics 11/18/21 Kurt Eli MD [address] [place] [address] Referring Internal Medicine 11/19/21 Saniya Martínez, PT [address] [place] [address] Family Dinner Service Specialist Post Acute Care 11/19/21 Homa Hernandez, RN [address] [place] [address] Primary Care Funeral Planning Counselor 11/20/21 12/18/21 Caustic Room Attendant Relationship Specialty Start Date End Date Christine Morgan APRN.CD REACTOR OPERATOR [address] [place], [place] [address]15[address] PCP - General Family Practice 02/10/20 Kaylen Lindsey DO [facility] [place] [address] Home Care Physician Orthopedics 11/18/21 Kurt Eli MD [address] [place] [address] Referring Internal Medicine 11/19/21 Saniya Martínez, PT [address] [place] [address] Family Dinner Service Specialist Post Acute Care 11/19/21 Homa Hernandez, GRACE [address] [place] [address] Primary Care Funeral Planning Counselor 11/20/21 12/18/21 Caustic Room Attendant Relationship Specialty Start Date End Date Christine Morgan APRN.CD REACTOR OPERATOR [address] [place] [address] PCP - General Family Practice 02/10/20 Kaylen Lindsey DO [facility] [place] [address] Home Care Physician Orthopedics 11/18/21 Kurt Eli MD [address] [place] [address] Referring Internal Medicine 11/19/21 Saniya Martínez, PT [address] [place] [address] Family Dinner Service Specialist Post Acute Care 11/19/21 Homa Hernandez, GRACE [address] [place] [address] Primary Care Funeral Planning Counselor 11/20/21 12/18/21 Caustic Room Attendant Relationship Specialty Start Date End Date Christine Morgan APRN.CD REACTOR OPERATOR [address] [place], [place] [address]6091 PCP - General Family Practice 02/10/20 Kaylen Lindsey, [facility] [place] [address] Home Care Provider Orthopedics 11/18/21 Kurt Eli MD [address] [place] [address] Referring Internal Medicine 11/19/21 Saniya Martínez, PT [address] [place] [address] Family Dinner Service Specialist Post Acute Care 11/19/21 Homa Hernandez RN [address] [place] [address] Primary Care Funeral Planning Counselor 11/20/21 12/18/21 Caustic Room Attendant Relationship Specialty Start Date End Date Christine Morgan APRN.CD REACTOR OPERATOR [address] [place], [place] [address] PCP - General Family Practice 02/10/20 Kaylen Lindsey [facility] [place] [address] Home Care Provider Orthopedics 11/18/21 Kurt Eli MD [address] [place] [address] Referring Internal Medicine 11/19/21 Saniya Martínez, PT [address] [place] [address] Family Dinner Service Specialist Post Acute Care 11/19/21 Homa Hernandez RN [address] [place] [address] Primary Care Funeral Planning Counselor 11/20/21 12/18/21 Caustic Room Attendant Relationship Specialty Start Date End Date Christine Morgan, KULWANT.CD REACTOR OPERATOR [address] [place], [place] 520181 PCP - General Family Medicine 02/10/20 Kaylen Lindsey, [facility] [place] [address] Home Care Provider Orthopedics 11/18/21 Kurt Eli MD [address] [place] [address] Referring Internal Medicine 11/19/21 Saniya Martínez, PT [address] [place] [address] Family Dinner Service Specialist Post Acute Care 11/19/21 Homa Hernandez RN [address] [place] [address] Primary Care Funeral Planning Counselor 11/20/21 12/18/21 Caustic Room Attendant Relationship Specialty Start Date End Date Christine Morgan, PHOTOGRAPHIC INTELLIGENCE OFFICER.CD REACTOR OPERATOR [address] [place] [address] PCP - General Family Medicine 02/10/20 Kaylen Lindsey, [facility] [place] [address] Home Care Provider Orthopedics 11/18/21 Kurt Eli MD [address] [place] [address] Referring Internal Medicine 11/19/21 Saniya Martínez, PT [address] [place] [address] Family Dinner Service Specialist Post Acute Care 11/19/21 Homa Hernandez, GRACE [address] [place] [address] Primary Care Funeral Planning Counselor 11/20/21 12/18/21 Caustic Room Attendant Relationship Specialty Start Date End Date Christine Morgan, PHOTOGRAPHIC INTELLIGENCE OFFICER.CD REACTOR OPERATOR [address] [place], [place] [address]20[address] PCP - General Family Medicine 02/10/20 Kaylen Lindsey, [facility] [place] [address] Home Care Provider Orthopedics 11/18/21 Kurt Eli MD [address] [place] [address] Referring Internal Medicine 11/19/21 Saniya Martínez, PT [address] [place] [address] Family Dinner Service Specialist Post Acute Care 11/19/21 Homa Hernandez RN [address] [place] [address] Primary Care Funeral Planning Counselor 11/20/21 12/18/21 Caustic Room Attendant Relationship Specialty Start Date End Date Christine Morgan, PHOTOGRAPHIC INTELLIGENCE OFFICER.CD REACTOR OPERATOR [address] [place], [place] [address] PCP - General Family Medicine 02/10/20 Kyalen Lindsey [facility] [place] [address] Home Care Provider Orthopedics 11/18/21 Kurt Eli MD [address] [place] [address] Referring Internal Medicine 11/19/21 Saniya Martínez, PT [address] [place] [address] Family Dinner Service Specialist Post Acute Care 11/19/21 Homa Hernandez, RN [address] [place] [address] Primary Care Funeral Planning Counselor 11/20/21 12/18/21 Caustic Room Attendant Relationship Specialty Start Date End Date Christine Morgan, PHOTOGRAPHIC INTELLIGENCE OFFICER.CD REACTOR OPERATOR [address] [place] [address] PCP - General Family Medicine 02/10/20 Kaylen Linsdey [facility] [place] [address] Home Care Provider Orthopedics 11/18/21 Kurt Eli MD [address] [place] [address] Referring Internal Medicine 11/19/21 Saniya Martínez, PT [address] [place] [address] Family Dinner Service Specialist Post Acute Care 11/19/21 Caustic Room Attendant Relationship Specialty Start Date End Date Christine Morgan, PHOTOGRAPHIC INTELLIGENCE OFFICER.CD REACTOR OPERATOR [address] [place] [address] PCP - General Family Medicine 02/10/20 Kaylen Lindsey [facility] [place] [address] Home Care Provider Orthopedics 11/18/21 Kurt Eli MD [address] [place] [address] Referring Internal Medicine 11/19/21 Saniya Martínez, PT [address] [place] [address] Family Dinner Service Specialist Post Acute Care 11/19/21 Caustic Room Attendant Relationship Specialty Start Date End Date Christine Morgan, PHOTOGRAPHIC INTELLIGENCE OFFICER.CD REACTOR OPERATOR [address] [place] [address] PCP - General Family Medicine 02/10/20 Kaylen Lindsey DO [address] [place] [address] Home Care Provider Orthopedics 11/18/21 Kurt Eli MD [address] [place] [address] Referring Internal Medicine 11/19/21 Saniya Martínez, PT [address] [place] [address] Family Dinner Service Specialist Post Acute Care 11/19/21 Caustic Room Attendant Relationship Specialty Start Date End Date Christine Morgan, PHOTOGRAPHIC INTELLIGENCE OFFICER.CD REACTOR OPERATOR [address] [place] [address] PCP - General Family Medicine 02/10/20 Kaylen Lindsey, DO [address] [place] [address] Home Care Provider Orthopedics 11/18/21 Kurt Eli MD [address] [place] [address] Referring Internal Medicine 11/19/21 Saniya Martínez, PT [address] [place] [address] Family Dinner Service Specialist Post Acute Care 11/19/21 Caustic Room Attendant Relationship Specialty Start Date End Date Christine Morgan, PHOTOGRAPHIC INTELLIGENCE OFFICER.CD REACTOR OPERATOR [address] [place] [address] PCP - General Family Medicine 02/10/20 Kaylen Lindsey DO [address] [place] [address] Home Care Provider Orthopedics 11/18/21 Kurt Eli MD [address] [place] [address] Referring Internal Medicine 11/19/21 Saniya Martínez, PT [address] [place] [address] Family Dinner Service Specialist Post Acute Care 11/19/21 Caustic Room Attendant Relationship Specialty Start Date End Date Christine Morgan, PHOTOGRAPHIC INTELLIGENCE OFFICER.CD REACTOR OPERATOR [address] [place] [address] PCP - General Family Medicine 02/10/20 Kaylen Lindsey [facility] [place] [address] Home Care Provider Orthopedics 11/18/21 Kurt Eli MD [address] [place] [address] Referring Internal Medicine 11/19/21 Saniya Martínez, PT [address] [place] [address] Family Dinner Service Specialist Post Acute Care 11/19/21 Caustic Room Attendant Relationship Specialty Start Date End Date Christine Morgan, PHOTOGRAPHIC INTELLIGENCE OFFICER.CD REACTOR OPERATOR [address] [place] [address] PCP - General Family Medicine 02/10/20 Kaylen Lindsey [facility] [place] [address] Home Care Provider Orthopedics 11/18/21 Kutr Eli MD [address] [place] [address] Referring Internal Medicine 11/19/21 Saniya Martínez, PT [address] [place] [address] Family Dinner Service Specialist Post Acute Care 11/19/21 Caustic Room Attendant Relationship Specialty Start Date End Date Christine Morgan, PHOTOGRAPHIC INTELLIGENCE OFFICER.CD REACTOR OPERATOR [address] [place] [address] PCP - General Family Medicine 02/10/20 Kaylen Lindsey DO [address] [place] [address] Home Care Provider Orthopedics 11/18/21 Kurt Eli MD [address] [place] [address] Referring Internal Medicine 11/19/21 Saniya Martínez, PT [address] [place] [address] Family Dinner Service Specialist Post Acute Care 11/19/21 Caustic Room Attendant Relationship Specialty Start Date End Date Christine Morgan, PHOTOGRAPHIC INTELLIGENCE OFFICER.CD REACTOR OPERATOR [address] [place] [address] PCP - General Family Medicine 02/10/20 Kaylen Lindsey DO [facility] [place] [address] Home Care Provider Orthopedics 11/18/21 Kurt Eli MD [address] [place] [address] Referring Internal Medicine 11/19/21 Saniya Martínez, PT [address] [place] [address] Family Dinner Service Specialist Post Acute Care 11/19/21 Caustic Room Attendant Relationship Specialty Start Date End Date Christine Morgan, PHOTOGRAPHIC INTELLIGENCE OFFICER.CD REACTOR OPERATOR [address] [place] [address] PCP - General Family Medicine 02/10/20 Kaylen Lindsey DO [address] [place] [address] Home Care Provider Orthopedics 11/18/21 Kurt Eli MD [address] [place] [address] Referring Internal Medicine 11/19/21 Saniya Martínez, PT [address] [place] [address] Family Dinner Service Specialist Post Acute Care 11/19/21 Caustic Room Attendant Relationship Specialty Start Date End Date Christine Morgan, PHOTOGRAPHIC INTELLIGENCE OFFICER.CD REACTOR OPERATOR [address] [place] [address] PCP - General Family Medicine 02/10/20 Kaylen Lindsey [facility] [place] [address] Home Care Provider Orthopedics 11/18/21 Kurt Eli MD [address] [place] [address] Referring Internal Medicine 11/19/21 Saniya Martínez, PT [address] [place] [address] Family Dinner Service Specialist Post Acute Care 11/19/21 Caustic Room Attendant Relationship Specialty Start Date End Date Christine Morgan, PHOTOGRAPHIC INTELLIGENCE OFFICER.CD REACTOR OPERATOR [address] [place] [address] PCP - General Family Medicine 02/10/20 Kaylen Lindsey DO [facility] [place] [address] Home Care Provider Orthopedics 11/18/21 Kurt Eli MD [address] [place] [address] Referring Internal Medicine 11/19/21 Saniya Martínez, PT [address] [place] [address] Family Dinner Service Specialist Post Acute Care 11/19/21 Caustic Room Attendant Relationship Specialty Start Date End Date Christine Morgan, PHOTOGRAPHIC INTELLIGENCE OFFICER.CD REACTOR OPERATOR [address] [place] [address] PCP - General Family Medicine 02/10/20 Kaylen Lindsey, DO [facility] [place] [address] Home Care Provider Orthopedics 11/18/21 Kurt Eli MD [address] [place] [address] Referring Internal Medicine 11/19/21 Saniya Martínez, PT [address] [place] [address] Family Dinner Service Specialist Post Acute Care 11/19/21 Caustic Room Attendant Relationship Specialty Start Date End Date Christine Morgan, PHOTOGRAPHIC INTELLIGENCE OFFICER.CD REACTOR OPERATOR [address] [place] [address] PCP - General Family Medicine 02/10/20 Kaylen Lindsey, [facility] [place] [address] Home Care Provider Orthopedics 11/18/21 Kurt Eli MD [address] [place] [address] Referring Internal Medicine 11/19/21 Saniya Martínez, PT [address] [place] [address] Family Dinner Service Specialist Post Acute Care 11/19/21 Caustic Room Attendant Relationship Specialty Start Date End Date Christine Morgan, PHOTOGRAPHIC INTELLIGENCE OFFICER.CD REACTOR OPERATOR [address] [place] [address] PCP - General Family Medicine 02/10/20 Kaylen Lindsey, DO [address] [place] [address] Home Care Provider Orthopedics 11/18/21 Kurt Eli MD [address] [place] [address] Referring Internal Medicine 11/19/21 Saniya Martínez, PT [address] [place] [address] Family Dinner Service Specialist Post Acute Care 11/19/21 Caustic Room Attendant Relationship Specialty Start Date End Date Christine Morgan, PHOTOGRAPHIC INTELLIGENCE OFFICER.CD REACTOR OPERATOR [address] [place] [address] PCP - General Family Medicine 02/10/20 Kaylen Lindsey, [facility] [place] [address] Home Care Provider Orthopedics 11/18/21 Kurt Eli MD [address] [place] [address] Referring Internal Medicine 11/19/21 Saniya Martínez, PT [address] [place] [address] Family Dinner Service Specialist Post Acute Care 11/19/21 Boby Gonsalez [facility] [address] [place] [address] Specialty [facility] Orthopedics 04/23/22 07/25/22 Caustic Room Attendant Relationship Specialty Start Date End Date Christine Morgan, PHOTOGRAPHIC INTELLIGENCE OFFICER.CD REACTOR OPERATOR [address] [place] [address] PCP - General Family Medicine 02/10/20 Kaylen Lindsey DO [address] [place] [address] Home Care Provider Orthopedics 11/18/21 Kurt Eli MD [address] [place] [address] Referring Internal Medicine 11/19/21 Saniya Martínez, PT [address] [place] [address] Family Dinner Service Specialist Post Acute Care 11/19/21 Boby Gonsalez [facility] [address] [place] [address] Specialty [facility] Orthopedics 04/23/22 07/25/22 Caustic Room Attendant Relationship Specialty Start Date End Date Christine Morgan, PHOTOGRAPHIC INTELLIGENCE OFFICER.CD REACTOR OPERATOR [address] [place] [address] PCP - General Family Medicine 02/10/20 Kaylen Lindsey, DO [address] [place] [address] Home Care Provider Orthopedics 11/18/21 Kurt Eli MD [address] [place] [address] Referring Internal Medicine 11/19/21 Saniya Martínez, PT [address] [place] [address] Family Dinner Service Specialist Post Acute Care 11/19/21 Boby Gonsalez, [facility] [address] [place] [address] Specialty [facility] Orthopedics 04/23/22 07/25/22 Caustic Room Attendant Relationship Specialty Start Date End Date Christine Morgan, PHOTOGRAPHIC INTELLIGENCE OFFICER.CD REACTOR OPERATOR [address] [place] [address] PCP - General Family Medicine 02/10/20 Kaylen Lindsey, DO [address] [place] [address] Home Care Provider Orthopedics 11/18/21 Kurt Eli MD [address] [place] [address] Referring Internal Medicine 11/19/21 Saniya Martínez, PT [address] [place] [address] Family Dinner Service Specialist Post Acute Care 11/19/21 Boby Gonsalez, [facility] [address] [place] [address] Specialty [facility] Orthopedics 04/23/22 07/25/22 Caustic Room Attendant Relationship Specialty Start Date End Date Christine Morgan APRN.CD REACTOR OPERATOR [address] [place] [address] PCP - General Family Medicine 02/10/20 Kaylen Lindsey DO [address] [place] [address] Home Care Provider Orthopedics 11/18/21 Kurt Eli MD [address] [place] [address] Referring Internal Medicine 11/19/21 Saniya Martínez, PT [address] [place] [address] Family Dinner Service Specialist Post Acute Care 11/19/21 Boby Gonsalez, [facility] [address] [place] [address] Specialty [facility] Orthopedics 04/23/22 07/25/22 Caustic Room Attendant Relationship Specialty Start Date End Date Christine Morgan, KULWANT.CD REACTOR OPERATOR [address] [place] [address] PCP - General Family Medicine 02/10/20 Kaylen Lindsey DO [address] [place] [address] Home Care Provider Orthopedics 11/18/21 Kurt Eli MD [address] [place] [address] Referring Internal Medicine 11/19/21 Saniya Martínez, PT [address] [place] [address] Family Dinner Service Specialist Post Acute Care 11/19/21 Boby Gonsalez, [facility] [address] [place] [address] Specialty [facility] Orthopedics 04/23/22 07/25/22 Caustic Room Attendant Relationship Specialty Start Date End Date Christine Morgan, PHOTOGRAPHIC INTELLIGENCE OFFICER.CD REACTOR OPERATOR [address] [place] [address] PCP - General Family Medicine 02/10/20 Kaylen Lindsey, [address] [place] [address] Home Care Provider Orthopedics 11/18/21 Kurt Eli MD [address] [place] [address] Referring Internal Medicine 11/19/21 Saniya Martínez, PT [address] [place] [address] Family Dinner Service Specialist Post Acute Care 11/19/21 SisBoby collado, [facility] Re[facility] [address] [place] [address] [facility] 04/23/22 07/25/22 Caustic Room Attendant Relationship Specialty Start Date End Date Christine Morgan, PHOTOGRAPHIC INTELLIGENCE OFFICER.CD REACTOR OPERATOR [address] [place] [address] PCP - General Family Medicine 02/10/20 Kaylen Lindsey, [address] [place] [address] Home Care Provider Orthopedics 11/18/21 Kurt Eli MD [address] [place] [address] Referring Internal Medicine 11/19/21 Saniya Martínez, PT [address] [place] [address] Family Dinner Service Specialist Post Acute Care 11/19/21 SissenSánchezin, [facility] [address] [place] [address] [facility] 04/23/22 07/25/22 Caustic Room Attendant Relationship Specialty Start Date End Date Christine Morgan, PHOTOGRAPHIC INTELLIGENCE OFFICER.CD REACTOR OPERATOR [address] [place] [address] PCP - General Family Medicine 02/10/20 Kaylen Lindsey DO [address] [place] [address] Home Care Provider Orthopedics 11/18/21 Kurt Eli MD [address] [place] [address] Referring Internal Medicine 11/19/21 Saniya Martínez, PT [address] [place] [address] Family Dinner Service Specialist Post Acute Care 11/19/21 Boby Gonsalez, [facility] [address] [place] [address] [facility] 04/23/22 07/25/22 Caustic Room Attendant Relationship Specialty Start Date End Date Christine Morgan, PHOTOGRAPHIC INTELLIGENCE OFFICER.CD REACTOR OPERATOR [address] [place] [address] PCP - General Family Medicine 02/10/20 Kaylen Lindsey DO [address] [place] [address] Home Care Provider Orthopedics 11/18/21 Kurt Eli MD [address] [place] [address] Referring Internal Medicine 11/19/21 Saniya Martínez, PT [address] [place] [address] Family Dinner Service Specialist Post Acute Care 11/19/21 Boby Gonsalez, [facility] [address] [place] [address] [facility] 04/23/22 07/25/22 Caustic Room Attendant Relationship Specialty Start Date End Date Christine Morgan, PHOTOGRAPHIC INTELLIGENCE OFFICER.CD REACTOR OPERATOR [address] [place] [address] PCP - General Family Medicine 02/10/20 Kaylen Lindsey, DO [address] [place] [address] Home Care Provider Orthopedics 11/18/21 Kurt Eli MD [address] [place] [address] Referring Internal Medicine 11/19/21 Saniya Martínez, PT [address] [place] [address] Family Dinner Service Specialist Post Acute Care 11/19/21 Boby Gonsalez, [facility] [address] [place] [address] [facility] 04/23/22 07/25/22 Caustic Room Attendant Relationship Specialty Start Date End Date Christine Morgan, PHOTOGRAPHIC INTELLIGENCE OFFICER.CD REACTOR OPERATOR [address] [place], [place] [address]661 PCP - General Family Medicine 02/10/20 Kaylen Lindsey, DO [address] [place] [address] Home Care Provider Orthopedics 11/18/21 Kurt Eli MD [address] [place] [address] Referring Internal Medicine 11/19/21 Saniya Martínez, PT [address] [place] [address] Family Dinner Service Specialist Post Acute Care 11/19/21 Boby Gonsalez, [facility] [address] [place] [address] [facility] 04/23/22 07/25/22 Caustic Room Attendant Relationship Specialty Start Date End Date Christine Morgan, PHOTOGRAPHIC INTELLIGENCE OFFICER.CD REACTOR OPERATOR [address] [place] [address] PCP - General Family Medicine 02/10/20 Kaylen Lindsey DO [address] [place] [address] Home Care Provider Orthopedics 11/18/21 Kurt Eli MD [address] [place] [address] Referring Internal Medicine 11/19/21 Saniya Martínez, PT [address] [place] [address] Family Dinner Service Specialist Post Acute Care 11/19/21 Boby Gonsalez, [facility] [address] [place] [address] [facility] 04/23/22 07/25/22 Caustic Room Attendant Relationship Specialty Start Date End Date Christine Morgan, PHOTOGRAPHIC INTELLIGENCE OFFICER.CD REACTOR OPERATOR [address] [place] [address] PCP - General Family Medicine 02/10/20 Kaylen Lindsey DO [address] [place] [address] Home Care Provider Orthopedics 11/18/21 Kurt Eli MD [address] [place] [address] Referring Internal Medicine 11/19/21 Saniya Martínez, PT [address] [place] [address] Family Dinner Service Specialist Post Acute Care 11/19/21 Boby Gonsalez, [facility] [address] [place] [address] [facility] 04/23/22 08/14/22 Caustic Room Attendant Relationship Specialty Start Date End Date Christine Morgan, PHOTOGRAPHIC INTELLIGENCE OFFICER.CD REACTOR OPERATOR [address] [place] [address] PCP - General Family Medicine 02/10/20 Kaylen Lindsey DO [address] [place] [address] Home Care Provider Orthopedics 11/18/21 Kurt Eli MD [address] [place] [address] Referring Internal Medicine 11/19/21 Saniya Martínez, PT [address] [place] [address] Family Dinner Service Specialist Post Acute Care 11/19/21 Boby Gonsalez, [facility] [address] [place] [address] [facility] 04/23/22 08/14/22 Caustic Room Attendant Relationship Specialty Start Date End Date Christine Morgan, PHOTOGRAPHIC INTELLIGENCE OFFICER.CD REACTOR OPERATOR [address] [place], [place] [address]33191 PCP - General Family Medicine 02/10/20 Boby Gonsalez, [facility] [address] [place] [address] [facility] 04/23/22 08/14/22 Donavon Patricia MD [address] [address] Home Care Provider Orthopedics 07/08/22 Rafi Fox, PHOTOGRAPHIC INTELLIGENCE OFFICER.CD REACTOR OPERATOR [address] [address] Referring Orthopedics 07/08/22 Saniya Martínez, PT [address] [place] [address] Family Dinner Service Specialist Post Acute Care 07/09/22 Caustic Room Attendant Relationship Specialty Start Date End Date Christine Morgan, PHOTOGRAPHIC INTELLIGENCE OFFICER.CD REACTOR OPERATOR [address] [place] [address] PCP - General Family Medicine 02/10/20 Boby Gonsalez, [facility] [address] [place] [address] [facility] 04/23/22 08/14/22 Donavon Patricia MD [address] [address] Home Care Provider Orthopedics 07/08/22 Rafi Fox, PHOTOGRAPHIC INTELLIGENCE OFFICER.CD REACTOR OPERATOR [address] [address] Referring Orthopedics 07/08/22 Saniya Martínez, PT [address] [place] [address] Family Dinner Service Specialist Post Acute Care 07/09/22 Caustic Room Attendant Relationship Specialty Start Date End Date Christine Morgan, PHOTOGRAPHIC INTELLIGENCE OFFICER.CD REACTOR OPERATOR [address] [place] [address] PCP - General Family Medicine 02/10/20 Boby Gonsalez, [facility] [address] [place] [address] [facility] 04/23/22 08/14/22 Donavon Patricia MD [address] [address] Home Care Provider Orthopedics 07/08/22 Rafi Fox, PHOTOGRAPHIC INTELLIGENCE OFFICER.CD REACTOR OPERATOR [address] [address] Referring Orthopedics 07/08/22 Saniya Martínez, PT [address] [place] [address] Family Dinner Service Specialist Post Acute Care 07/09/22 Caustic Room Attendant Relationship Specialty Start Date End Date Christine Morgan APRN.CD REACTOR OPERATOR [address] [place] [address] PCP - General Family Medicine 02/10/20 Boby Gonsalez, [facility] [address] [place] [address] [facility] 04/23/22 08/14/22 Donavon Patricia MD [address] [address] Home Care Provider Orthopedics 07/08/22 Rafi Fox PHOTOGRAPHIC INTELLIGENCE OFFICER.CD REACTOR OPERATOR [address] [address] Referring Orthopedics 07/08/22 Saniya Martínez, PT [address] [place] [address] Family Dinner Service Specialist Post Acute Care 07/09/22 Caustic Room Attendant Relationship Specialty Start Date End Date Christine Morgan PHOTOGRAPHIC INTELLIGENCE OFFICER.CD REACTOR OPERATOR [address] [place] [address] PCP - General Family Medicine 02/10/20 Boby Gonsalez, [facility] [address] [place] [address] [facility] 04/23/22 08/14/22 Donavon Patricia MD [address] [place] [address] Home Care Provider Orthopedics 07/08/22 Rafi Fox APRN.CD REACTOR OPERATOR [address] [address] Referring Orthopedics 07/08/22 Saniya Martínez, PT [address] [place] [address] Family Dinner Service Specialist Post Acute Care 07/09/22 Caustic Room Attendant Relationship Specialty Start Date End Date Christine Morgan, PHOTOGRAPHIC INTELLIGENCE OFFICER.CD REACTOR OPERATOR [address] [place] [address] PCP - General Family Medicine 02/10/20 Boby Gonsalez, [facility] [address] [place] [address] [facility] 04/23/22 08/14/22 Donavon Patricia MD [address] [place] [address] Home Care Provider Orthopedics 07/08/22 Rafi Fox APRN.CD REACTOR OPERATOR [address] [address] Referring Orthopedics 07/08/22 Saniya Martínez, PT [address] [place] [address] Family Dinner Service Specialist Post Acute Care 07/09/22 Caustic Room Attendant Relationship Specialty Start Date End Date Christine Morgan, PHOTOGRAPHIC INTELLIGENCE OFFICER.CD REACTOR OPERATOR [address] [place], [place] [address]181 PCP - General Family Medicine 02/10/20 Boby Gonsalez, [facility] [address] [place] [address] [facility] 04/23/22 08/14/22 Donavon Patricia MD [address] [place] [address] Home Care Provider Orthopedics 07/08/22 Rafi Fox, PHOTOGRAPHIC INTELLIGENCE OFFICER.CD REACTOR OPERATOR [address] [place] [address] Referring Orthopedics 07/08/22 Saniya Martínez, PT [address] [place] [address] Family Dinner Service Specialist Post Acute Care 07/09/22 Caustic Room Attendant Relationship Specialty Start Date End Date Christine Morgan, PHOTOGRAPHIC INTELLIGENCE OFFICER.CD REACTOR OPERATOR [address] [place], [place] [address] PCP - General Family Medicine 02/10/20 Boby Gonsalez, [facility] [address] [place] [address] [facility] 04/23/22 08/14/22 Donavon Patricia MD [address] [place] [address] Home Care Provider Orthopedics 07/08/22 Rafi Fox, PHOTOGRAPHIC INTELLIGENCE OFFICER.CD REACTOR OPERATOR [address] [address] Referring Orthopedics 07/08/22 Saniya Martínez, PT [address] [place] [address] Family Dinner Service Specialist Post Acute Care 07/09/22 Caustic Room Attendant Relationship Specialty Start Date End Date Christine Morgan, PHOTOGRAPHIC INTELLIGENCE OFFICER.CD REACTOR OPERATOR [address] [place] [address] PCP - General Family Medicine 02/10/20 Boby Gonsalez, [facility] [address] [place] [address] Special[facility] 04/23/22 08/14/22 Donavon Patricia MD [address] [address] Home Care Provider Orthopedics 07/08/22 Rafi Fox APRN.CD REACTOR OPERATOR [address] [place] [address] Referring Orthopedics 07/08/22 Saniya Martínez, PT [address] [place] [address] Family Dinner Service Specialist Post Acute Care 07/09/22 Caustic Room Attendant Relationship Specialty Start Date End Date Christine Morgan APRN.CD REACTOR OPERATOR [address] [place] [address] PCP - General Family Medicine 02/10/20 Boby Gonsalez, [facility] [address] [place] [address] Special[facility] 04/23/22 08/14/22 Donavon Patricia MD [address] [address] Home Care Provider Orthopedics 07/08/22 Rafi Fox PHOTOGRAPHIC INTELLIGENCE OFFICER.CD REACTOR OPERATOR [address] [place] [address] Referring Orthopedics 07/08/22 Saniya Matrínez, PT [address] [place] [address] Family Dinner Service Specialist Post Acute Care 07/09/22 Caustic Room Attendant Relationship Specialty Start Date End Date Christine Morgan, PHOTOGRAPHIC INTELLIGENCE OFFICER.CD REACTOR OPERATOR [address] [place] [address] PCP - General Family Medicine 02/10/20 Boby Gonsalez, [facility] [address] [place] [address] [facility] 04/23/22 10/22/22 Donavon Patricia MD [address] [address] Home Care Provider Orthopedics 07/08/22 Rafi Fox APRN.CD REACTOR OPERATOR [address] [place] [address] Referring Orthopedics 07/08/22 Saniya Martínez, PT [address] [place] [address] Family Dinner Service Specialist Post Acute Care 07/09/22 Jase Dumont, RN [address] [place] [address] [place] Clerk 08/19/22 Caustic Room Attendant Relationship Specialty Start Date End Date Christine Morgan, PHOTOGRAPHIC INTELLIGENCE OFFICER.CD REACTOR OPERATOR [address] [place] [address] PCP - General Family Medicine 02/10/20 Boby Gonsalez, [facility] [address] [place] [address] Special[facility] 04/23/22 10/22/22 Donavon Patricia MD [address] [address] Home Care Provider Orthopedics 07/08/22 Rafi Fox APRN.CD REACTOR OPERATOR [address] [address] Referring Orthopedics 07/08/22 Saniya Martínez, PT [address] [place] [address] Family Dinner Service Specialist Post Acute Care 07/09/22 Jase Dumont, RN [address] [place] [address] [place] Clerk 08/19/22 Caustic Room Attendant Relationship Specialty Start Date End Date Christine Morgan, PHOTOGRAPHIC INTELLIGENCE OFFICER.CD REACTOR OPERATOR [address] [place], [place] 955291 PCP - General Family Medicine 02/10/20 Boby Gonsalez, [facility] [address] [place] [address] Specialty [facility] 04/23/22 10/22/22 Jase Dumont, GRACE [address] [place] [address] [place] Clerk 08/19/22 Donavon Patricia MD [address] [address] Home Care Provider Orthopedics 09/16/22 Rafi Fox, PHOTOGRAPHIC INTELLIGENCE OFFICER.CD REACTOR OPERATOR [address] [address] Referring Orthopedics 09/16/22 Caustic Room Attendant Relationship Specialty Start Date End Date Christine Morgan, PHOTOGRAPHIC INTELLIGENCE OFFICER.CD REACTOR OPERATOR [address] [place], [place] 122091 PCP - General Family Medicine 02/10/20 Boby Gonsalez, [facility] [address] [place] [address] Specialty [facility] 04/23/22 10/22/22 Jase Dumont, GRACE [address] [place] [address] [place] Clerk 08/19/22 Donavon Patricia MD [address] [address] Home Care Provider Orthopedics 09/16/22 Rafi Fox, PHOTOGRAPHIC INTELLIGENCE OFFICER.CD REACTOR OPERATOR [address] [address] Referring Orthopedics 09/16/22 Saniya Martínez, PT [address] [place] [address] Family Dinner Service Specialist Post Acute Care 09/17/22 Caustic Room Attendant Relationship Specialty Start Date End Date Christine Morgan, PHOTOGRAPHIC INTELLIGENCE OFFICER.CD REACTOR OPERATOR [address] [place], [place] 593831 PCP - General Family Medicine 02/10/20 Boby Gonsalez, [facility] [address] [place] [address] Specialty [facility] 04/23/22 10/22/22 Jase Dumont, RN [address] [place] [address] [place] Clerk 08/19/22 Donavon Patricia MD [address] [place] [address] Home Care Provider Orthopedics 09/16/22 Rafi Fox, PHOTOGRAPHIC INTELLIGENCE OFFICER.CD REACTOR OPERATOR [address] [address] Referring Orthopedics 09/16/22 Saniya Martínez, PT [address] [place] [address] Family Dinner Service Specialist Post Acute Care 09/17/22 Caustic Room Attendant Relationship Specialty Start Date End Date Christine Morgan, PHOTOGRAPHIC INTELLIGENCE OFFICER.CD REACTOR OPERATOR [address] [place] [address] PCP - General Family Medicine 02/10/20 Boby Gonsalez, [facility] [address] [place] [address] Special[facility] 04/23/22 10/22/22 Jase Dumont, RN [address] [place] [address] [place] Clerk 08/19/22 Donavon Patricia MD [address] [place] [address] Home Care Provider Orthopedics 09/16/22 Rafi Fox APRN.CD REACTOR OPERATOR [address] [address] Referring Orthopedics 09/16/22 Saniya Martínez, PT [address] [place] [address] Family Dinner Service Specialist Post Acute Care 09/17/22 Caustic Room Attendant Relationship Specialty Start Date End Date Christine Morgan, PHOTOGRAPHIC INTELLIGENCE OFFICER.CD REACTOR OPERATOR [address] [place], [place] 574611 PCP - General Family Medicine 02/10/20 Boby Gonsalez, [facility] [address] [place] [address] Special[facility] 04/23/22 10/22/22 Jase Dumont, RN [address] [place] [address] [place] Clerk 08/19/22 Donavon Patricia MD [address] [address] Home Care Provider Orthopedics 09/16/22 Rafi Fox APRN.CD REACTOR OPERATOR [address] [address] Referring Orthopedics 09/16/22 Saniya Martínez, PT [address] [place] [address] Family Dinner Service Specialist Post Acute Care 09/17/22 Caustic Room Attendant Relationship Specialty Start Date End Date Christine Morgan PHOTOGRAPHIC INTELLIGENCE OFFICER.CD REACTOR OPERATOR [address] [place], [place] [address]4761 PCP - General Family Medicine 02/10/20 Boby Gonsalez, [facility] [address] [place] [address] [facility] 04/23/22 10/22/22 Jase Dumont, GRACE [address] [place] [address] [place] Clerk 08/19/22 Donavon Patricia MD [address] [place] [address] Home Care Provider Orthopedics 09/16/22 Rafi Fox, PHOTOGRAPHIC INTELLIGENCE OFFICER.CD REACTOR OPERATOR [address] [place] [address] Referring Orthopedics 09/16/22 Saniya Martínez, PT [address] [place] [address] Family Dinner Service Specialist Post Acute Care 09/17/22 Caustic Room Attendant Relationship Specialty Start Date End Date Christine Morgan APRN.CD REACTOR OPERATOR [address] [place] [address] PCP - General Family Medicine 02/10/20 Boby Gonsalez [facility] [address] [place] [address] Specialty [facility] 04/23/22 10/22/22 Jase Dumont, GRACE [address] [place] [address] [place] Clerk 08/19/22 Donavon Patricia MD [address] [place] [address] Home Care Provider Orthopedics 09/16/22 Rafi Fox, PHOTOGRAPHIC INTELLIGENCE OFFICER.CD REACTOR OPERATOR [address] [place] [address] Referring Orthopedics 09/16/22 Saniya Martínez, PT [address] [place] [address] Family Dinner Service Specialist Post Acute Care 09/17/22 Caustic Room Attendant Relationship Specialty Start Date End Date Christine Morgan APRN.CD REACTOR OPERATOR [address] [place] [address] PCP - General Family Medicine 02/10/20 Boby Gonsalez, [facility] [address] [place] [address] Special[facility] 04/23/22 10/22/22 Jase Dumont, RN [address] [place] [address] [place] Clerk 08/19/22 Donavon Patricia MD [address] [place] [address] Home Care Provider Orthopedics 09/16/22 Rafi Fox, PHOTOGRAPHIC INTELLIGENCE OFFICER.CD REACTOR OPERATOR [address] [place] [address] Referring Orthopedics 09/16/22 Saniya Martínez, PT [address] [place] [address] Family Dinner Service Specialist Post Acute Care 09/17/22 Caustic Room Attendant Relationship Specialty Start Date End Date Christine Morgan APRN.CD REACTOR OPERATOR [address] [place] [address] PCP - General Family Medicine 02/10/20 Boby Gonsalez, [facility] [address] [place] [address] [facility] 04/23/22 10/22/22 Jase Dumont, RN [address] [place] [address] [place] Clerk 08/19/22 Donavon Patricia MD [address] [place] [address] Home Care Provider Orthopedics 09/16/22 Rafi Fox, PHOTOGRAPHIC INTELLIGENCE OFFICER.CD REACTOR OPERATOR [address] [place] [address] Referring Orthopedics 09/16/22 Saniya Martínez, PT [address] [place] [address] Family Dinner Service Specialist Post Acute Care 09/17/22 Caustic Room Attendant Relationship Specialty Start Date End Date Christine Morgan, PHOTOGRAPHIC INTELLIGENCE OFFICER.CD REACTOR OPERATOR [facility] [place] [address] PCP - General Family Medicine 02/10/20 Boby Gonsalez, [facility] [address] [place] [address] Special[facility] 04/23/22 10/22/22 Jase Dumont, GRACE [address] [place] [address] [place] Clerk 08/19/22 Donavon Patricia MD [address] [place] [address] Home Care Provider Orthopedics 09/16/22 Rafi Fox, PHOTOGRAPHIC INTELLIGENCE OFFICER.CD REACTOR OPERATOR [address] [place] [address] Referring Orthopedics 09/16/22 Saniya Martínez, PT [address] [place] [address] Family Dinner Service Specialist Post Acute Care 09/17/22 Caustic Room Attendant Relationship Specialty Start Date End Date Christine Morgan, PHOTOGRAPHIC INTELLIGENCE OFFICER.CD REACTOR OPERATOR [address] [place] [address] PCP - General Family Medicine 02/10/20 Boby Gonsalez, [facility] [address] [place] [address] [facility] 04/23/22 10/22/22 Jase Dumont, RN [address] [place] [address] [place] Clerk 08/19/22 Donavon Patricia MD [address] [place] [address] Home Care Provider Orthopedics 09/16/22 Rafi Fox APRN.CD REACTOR OPERATOR [address] [place] [address] Referring Orthopedics 09/16/22 Saniya Martínez, PT [address] [place] [address] Family Dinner Service Specialist Post Acute Care 09/17/22 Caustic Room Attendant Relationship Specialty Start Date End Date Christine Morgan APRN.CD REACTOR OPERATOR [address] [place] [address] PCP - General Family Medicine 02/10/20 Boby Gonsalez [facility] [address] [place] [address] Special[facility] 04/23/22 10/22/22 Jase Dumont, RN [address] [place] [address] [place] Clerk 08/19/22 Donavon Patricia MD [address] [place] [address] Home Care Provider Orthopedics 09/16/22 Rafi Fox APRN.CD REACTOR OPERATOR [address] [place] [address] Referring Orthopedics 09/16/22 Saniya Martínez, PT [address] [place] [address] Family Dinner Service Specialist Post Acute Care 09/17/22 Caustic Room Attendant Relationship Specialty Start Date End Date Christine Morgan APRN.CD REACTOR OPERATOR [address] [place] [address] PCP - General Family Medicine 02/10/20 Boby Gonsalez, [facility] [address] [place] [address] [facility] 04/23/22 10/22/22 Jase Dumont, RN [address] [place] [address] [place] Clerk 08/19/22 Donavon Patricia MD [address] [place] [address] Home Care Provider Orthopedics 09/16/22 Rafi Fox PHOTOGRAPHIC INTELLIGENCE OFFICER.CD REACTOR OPERATOR [address] [place] [address] Referring Orthopedics 09/16/22 Saniya Martínez, PT [address] [place] [address] Family Dinner Service Specialist Post Acute Care 09/17/22 Caustic Room Attendant Relationship Specialty Start Date End Date Christine Morgan APRN.CD REACTOR OPERATOR [address] [place] [address] PCP - General Family Medicine 02/10/20 Boby Gonsalez, [facility] [address] [place] [address] [facility] 04/23/22 10/22/22 Jase Dumont, GRACE [address] [place] [address] [place] Clerk 08/19/22 Donavon Patricia MD [address] [place] [address] Home Care Provider Orthopedics 09/16/22 Rafi Fox, PHOTOGRAPHIC INTELLIGENCE OFFICER.CD REACTOR OPERATOR [address] [place] [address] Referring Orthopedics 09/16/22 Saniya Martínez, PT [address] [place], [place] 2591231 Family Dinner Service Specialist Post Acute Care 09/17/22 Caustic Room Attendant Relationship Specialty Start Date End Date Christine Morgan, PHOTOGRAPHIC INTELLIGENCE OFFICER.CD REACTOR OPERATOR [address] [place] [address] PCP - General Family Medicine 02/10/20 Boby Gonsalez, [facility] [address] [place] [address] [facility] 04/23/22 10/22/22 Jase Dumont, RN [address] [place] [address] [place] Clerk 08/19/22 Donavon Patricia MD [address] [place] [address] Home Care Provider Orthopedics 09/16/22 Rafi Fox, PHOTOGRAPHIC INTELLIGENCE OFFICER.CD REACTOR OPERATOR [address] [place] [address] Referring Orthopedics 09/16/22 Saniya Martínez, PT [address] [place] [address] Family Dinner Service Specialist Post Acute Care 09/17/22 Caustic Room Attendant Relationship Specialty Start Date End Date Christine Morgan, PHOTOGRAPHIC INTELLIGENCE OFFICER.CD REACTOR OPERATOR [address] [place] [address] PCP - General Family Medicine 02/10/20 Boby Gonsalez, [facility] [address] [place] [address] [facility] 04/23/22 10/22/22 Jase Dumont, GRACE [address] [place] [address] [place] Clerk 08/19/22 Donavon Patricia MD [address] [place] [address] Home Care Provider Orthopedics 09/16/22 Rafi Fox APRN.CD REACTOR OPERATOR [address] [place] [address] Referring Orthopedics 09/16/22 Saniya Martínez, PT [address] [place] [address] Family Dinner Service Specialist Post Acute Care 09/17/22 Caustic Room Attendant Relationship Specialty Start Date End Date Christine Morgan APRN.CD REACTOR OPERATOR [facility] [place] [address] PCP - General Family Medicine 02/10/20 Jase Dumont RN [address] [place] [address] [place] Clerk 08/19/22 Donavon Patricia MD [address] [place] [address] Home Care Provider Orthopedics 09/16/22 Rafi Fox PHOTOGRAPHIC INTELLIGENCE OFFICER.CD REACTOR OPERATOR [address] [place] [address] Referring Orthopedics 09/16/22 Saniya Martínez, PT [address] [place] [address] Family Dinner Service Specialist Post Acute Care 09/17/22 Caustic Room Attendant Relationship Specialty Start Date End Date Christine Morgan APRN.CD REACTOR OPERATOR [facility] [facility] [place], [place] [id number] PCP - General Family Medicine 02/10/20 Jase Dumont RN [address] [place] [address] Wanigan Clerk 08/19/22 Donavon Patricia MD [address] [place] [address] [phone] Home Care Provider Orthopedics 09/16/22 Rafi Fox, PHOTOGRAPHIC INTELLIGENCE OFFICER.CD REACTOR OPERATOR [address] [place] [address] 79450 Referring Orthopedics 09/16/22 Saniya Martínez, PT [address] [place] [address] Family Dinner Service Specialist Post Acute Care 09/17/22 Caustic Room Attendant Relationship Specialty Start Date End Date Christine Morgan APRN.CD REACTOR OPERATOR [facility] [place] [address] PCP - General Family Medicine 02/10/20 Jase Dumont, GRACE [address] [place] [address] Wanigan Clerk 08/19/22 Donavon Patricia MD [address] [place] [address] 63580 Home Care Provider Orthopedics 09/16/22 Rafi Fox, PHOTOGRAPHIC INTELLIGENCE OFFICER.CD REACTOR OPERATOR [address] [place] [address] 39978 Referring Orthopedics 09/16/22 Saniya Martínez, PT [address] [place], [place] [phone] Family Dinner Service Specialist Post Acute Care 09/17/22 Caustic Room Attendant Relationship Specialty Start Date End Date Christine Morgan PHOTOGRAPHIC INTELLIGENCE OFFICER.CD REACTOR OPERATOR [address] [place] [address] PCP - General Family Medicine 02/10/20 Jase Dumont, RN [address] [place] [address] Wanigan Clerk 08/19/22 Donavon Patricia MD [address] [place] [address] 39120 Home Care Provider Orthopedics 09/16/22 Rafi Fox APRN.CD REACTOR OPERATOR [address] [place] [address] 36178 Referring Orthopedics 09/16/22 Saniya Martínez, PT [address] [place] [address] Family Dinner Service Specialist Post Acute Care 09/17/22 Caustic Room Attendant Relationship Specialty Start Date End Date Christine Morgan APRN.CD REACTOR OPERATOR [address] [place] [address] PCP - General Family Medicine 02/10/20 Jase Dumont RN [address] [place] [address] Wanigan Clerk 08/19/22 Donavon Patricia MD [address] [place] [address] 10399 Home Care Provider Orthopedics 09/16/22 Rafi Fox, PHOTOGRAPHIC INTELLIGENCE OFFICER.CD REACTOR OPERATOR [address] [place] [address] 47334 Referring Orthopedics 09/16/22 Caustic Room Attendant Relationship Specialty Start Date End Date Christine Morgan APRN.CD REACTOR OPERATOR [address] [place] [address] PCP - General Family Medicine 02/10/20 Jase Dumont, GRACE [address] [place] [address] Wanigan Clerk 08/19/22 Donavon Patricia MD [address] [place] [address] 50089 Home Care Provider Orthopedics 09/16/22 Rafi Fox, PHOTOGRAPHIC INTELLIGENCE OFFICER.CD REACTOR OPERATOR [address] [place] [address] 34759 Referring Orthopedics 09/16/22 Caustic Room Attendant Relationship Specialty Start Date End Date Christine Morgan PHOTOGRAPHIC INTELLIGENCE OFFICER.CD REACTOR OPERATOR [address] [place] [address] 75861 PCP - General Family Medicine 02/10/20 Jase Dumont RN [address] [place] [address] Wanigan Clerk 08/19/22 Donavon Patricia MD [address] [place] [address] 37870 Home Care Provider Orthopedics 09/16/22 Rafi Fox, PHOTOGRAPHIC INTELLIGENCE OFFICER.CD REACTOR OPERATOR [address] [place] [address] 24158 Referring Orthopedics 09/16/22 Caustic Room Attendant Relationship Specialty Start Date End Date hCristine Morgan PHOTOGRAPHIC INTELLIGENCE OFFICER.CD REACTOR OPERATOR [address] [place], [place] 619221 PCP - General Family Medicine 02/10/20 Jase Dumont RN [address] [place] [address] Wanigan Clerk 08/19/22 Donavon Patricia MD [address] [place] [address] 20250 Home Care Provider Orthopedics 09/16/22 Rafi Fox APRN.CD REACTOR OPERATOR [address] [place] [address] 47581 Referring Orthopedics 09/16/22 Caustic Room Attendant Relationship Specialty Start Date End Date Christine Morgan APRN.CD REACTOR OPERATOR [facility] [place], [place] 580901 PCP - General Family Medicine 02/10/20 Jase Dumont, GRACE [address] [place] [address] Wan[place] Clerk 08/19/22 Donavon Patricia MD [address] [place] [address] 24265 Home Care Provider Orthopedics 09/16/22 Rafi Fox, KULWANT.CD REACTOR OPERATOR [address] [place] [address] 70419 Referring Orthopedics 09/16/22 Caustic Room Attendant Relationship Specialty Start Date End Date Christine Morgan APRN.CD REACTOR OPERATOR [address] [place] [address] [phone] PCP - General Family Medicine 02/10/20 Jase Dumont, GRACE [address] [place] [address] Wanigan Clerk 08/19/22 Donavon Patricia MD [address] [place] [address] [phone] Home Care Provider Orthopedics 09/16/22 Rafi Fox APRN.CD REACTOR OPERATOR [address] [place] [address] 47261 Referring Orthopedics 09/16/22 Caustic Room Attendant Relationship Specialty Start Date End Date Christine Morgan APRN.CD REACTOR OPERATOR [address] [place] [address] PCP - General Family Medicine 02/10/20 Jase Dumont, RN [address] [place] [address] Wanigan Clerk 08/19/22 Donavon Patricia MD [address] [place] [address] [phone] Home Care Provider Orthopedics 09/16/22 Rafi Fox APRN.CD REACTOR OPERATOR [address] [place] [address] 19815 Referring Orthopedics 09/16/22 Caustic Room Attendant Relationship Specialty Start Date End Date Christine Morgan APRN.CD REACTOR OPERATOR [address] [place] [address] PCP - General Family Medicine 02/10/20 Jase Dumont, GRACE [address] [place] [address] Wanigan Clerk 08/19/22 Donavon Patricia MD [address] [place] [address] 79359 Home Care Provider Orthopedics 09/16/22 Rafi Fox PHOTOGRAPHIC INTELLIGENCE OFFICER.CD REACTOR OPERATOR [address] [place] [address] [phone] Referring Orthopedics 09/16/22 Caustic Room Attendant Relationship Specialty Start Date End Date Christine Morgan APRN.CD REACTOR OPERATOR [address] [place], [place] 906521 PCP - General Family Medicine 02/10/20 Jase Dumont, RN [address] [place] [address] Wanigan Clerk 08/19/22 Donavon Patricia MD [address] [place] [address] 92659 Home Care Provider Orthopedics 09/16/22 Rafi Fox, PHOTOGRAPHIC INTELLIGENCE OFFICER.CD REACTOR OPERATOR [address] [place] [address] 50610 Referring Orthopedics 09/16/22 Caustic Room Attendant Relationship Specialty Start Date End Date Christine Morgan APRN.CD REACTOR OPERATOR [address] [place] [address] PCP - General Family Medicine 02/10/20 Jase Dumont, GRACE [address] [place], [place] 6396731 Wan[place] Clerk 08/19/22 Donavon Patricia MD [address] [place] [address] 51139 Home Care Provider Orthopedics 09/16/22 Rafi Fox, PHOTOGRAPHIC INTELLIGENCE OFFICER.CD REACTOR OPERATOR [address] [place] [address] 60840 Referring Orthopedics 09/16/22 Caustic Room Attendant Relationship Specialty Start Date End Date Christine Morgan APRN.CD REACTOR OPERATOR [address] [place] [address] PCP - General Family Medicine 02/10/20 Jase Dumont, GRACE [address] [place], [place] 1312131 Wan[place] Clerk 08/19/22 Donavon Patricia MD [address] [place] [address] 72159 Home Care Provider Orthopedics 09/16/22 Rafi Fox APRN.CD REACTOR OPERATOR [address] [place] [address] 17829 Referring Orthopedics 09/16/22 Caustic Room Attendant Relationship Specialty Start Date End Date Christine Morgan APRN.CD REACTOR OPERATOR [address] [place] [address] [phone] PCP - General Family Medicine 02/10/20 Jase Dumont, RN [address] [place] [address] Wan[place] Clerk 08/19/22 Donavon Patricia MD [address] [place] [address] 42477 Home Care Provider Orthopedics 09/16/22 Rafi Fox APRN.CD REACTOR OPERATOR [address] [place] [address] 30811 Referring Orthopedics 09/16/22 Caustic Room Attendant Relationship Specialty Start Date End Date Christine Morgan APRN.CD REACTOR OPERATOR [address] [place] [address] 66939 PCP - General Family Medicine 02/10/20 Jase Dumont, RN [address] [place] [address] Wan[place] Clerk 08/19/22 Donavon Patricia MD [address] [place] [address] 16964 Home Care Provider Orthopedics 09/16/22 Rafi Fox APRN.CD REACTOR OPERATOR [address] [place] [address] 67689 Referring Orthopedics 09/16/22 Caustic Room Attendant Relationship Specialty Start Date End Date Christine Morgan APRN.CD REACTOR OPERATOR [address] [place] [address] PCP - General Family Medicine 02/10/20 Jase Dumont, RN [address] [place] [address] Wan[place] Clerk 08/19/22 Donavon Patricia MD [address] [place] [address] 94334 Home Care Provider Orthopedics 09/16/22 Rafi Fox APRN.CD REACTOR OPERATOR [address] [place] [address] 43396 Referring Orthopedics 09/16/22 Caustic Room Attendant Relationship Specialty Start Date End Date Christine Morgan APRN.CD REACTOR OPERATOR [facility] [place] [address] PCP - General Family Medicine 02/10/20 Jase Dumont, GRACE [address] [place] [address] Wan[place] Clerk 08/19/22 Donavon Patricia MD [address] [place] [address] 23766 Home Care Provider Orthopedics 09/16/22 Rafi oFx APRN.CD REACTOR OPERATOR [address] [place] [address] 93570 Referring Orthopedics 09/16/22 Caustic Room Attendant Relationship Specialty Start Date End Date Christine Morgan, PHOTOGRAPHIC INTELLIGENCE OFFICER.CD REACTOR OPERATOR [address] [place], [place] 007011 PCP - General Family Medicine 02/10/20 Jase Dumont, RN [address] [place] [address] Wanigan Clerk 08/19/22 Donavon Patricia MD [address] [place] [address] 49891 Home Care Provider Orthopedics 09/16/22 Rafi Fox, PHOTOGRAPHIC INTELLIGENCE OFFICER.CD REACTOR OPERATOR [address] [place] [address] 95983 Referring Orthopedics 09/16/22 Caustic Room Attendant Relationship Specialty Start Date End Date Christine Morgan, PHOTOGRAPHIC INTELLIGENCE OFFICER.CD REACTOR OPERATOR [address] [place] [address] PCP - General Family Medicine 02/10/20 Jase Dumont, GRACE [address] [place] [phone] Wanigan Clerk 08/19/22 Donavon Patricia MD [address] [place] [address] 42833 Home Care Provider Orthopedics 09/16/22 Rafi Fox, PHOTOGRAPHIC INTELLIGENCE OFFICER.CD REACTOR OPERATOR [address] [place] [address] 42948 Referring Orthopedics 09/16/22 Caustic Room Attendant Relationship Specialty Start Date End Date Christine Morgan, PHOTOGRAPHIC INTELLIGENCE OFFICER.CD REACTOR OPERATOR [address] [place], [place] 856451 PCP - General Family Medicine 02/10/20 Kaylen Lindsey DO [address] [place] [address] Home Care Provider Orthopedics 11/18/21 07/07/22 Kurt Eli MD [address] [place] [address] Referring Internal Medicine 11/19/21 07/07/22 Saniya Martínez, PT [address] [place] [address] Family Dinner Service Specialist Post Acute Care 11/19/21 07/07/22 Caustic Room Attendant Relationship Specialty Start Date End Date Christine Morgan, KULWANT.CD REACTOR OPERATOR [facility] [place] [address] PCP - General Family Medicine 02/10/20 Boby Gonsalez [facility] [address] [place] [address] Specialty [facility] 04/23/22 10/22/22 Jase Dumont, GRACE [address] [place] [phone] Wan[place] Clerk 08/19/22 Donavon Patricia MD [address] [place] [address] 03168 Home Care Provider Orthopedics 09/16/22 Rafi Fox APRN.CD REACTOR OPERATOR [address] [place] [address] 88336 Referring Orthopedics 09/16/22 Saniya Martínez, PT [address] [place] [address] Family Dinner Service Specialist Post Acute Care 09/17/22 11/11/22 Caustic Room Attendant Relationship Specialty Start Date End Date Christine Morgan, PHOTOGRAPHIC INTELLIGENCE OFFICER.CD REACTOR OPERATOR [address] [place] [address] PCP - General Family Medicine 02/10/20 Kaylen Lindsey DO [address] [place] [address] Home Care Provider Orthopedics 11/18/21 07/07/22 Kurt Eli MD [address] [place] [address] Referring Internal Medicine 11/19/21 07/07/22 Saniya Martínez, PT [address] [place] [address] Family Dinner Service Specialist Post Acute Care 11/19/21 07/07/22 Caustic Room Attendant Relationship Specialty Start Date End Date Christine Morgan APRN.CD REACTOR OPERATOR [address] [place] [address] PCP - General Family Medicine 02/10/20 Kaylen Lindsey DO [address] [place] [address] Home Care Provider Orthopedics 11/18/21 07/07/22 Kurt Eli MD [address] [place] [address] Referring Internal Medicine 11/19/21 07/07/22 Saniya Martínze, PT [address] [place] [address] Family Dinner Service Specialist Post Acute Care 11/19/21 07/07/22 Caustic Room Attendant Relationship Specialty Start Date End Date Christine Morgan APRN.CD REACTOR OPERATOR [address] [place] [address] PCP - General Family Medicine 02/10/20 Jase Dumont, RN [address] [place] [address] Wanigan Clerk 08/19/22 Donavon Patricia MD [address] [place] [address] 39582 Home Care Provider Orthopedics 09/16/22 Rafi Fox APRN.CD REACTOR OPERATOR [address] [place] [address] 65879 Referring Orthopedics 09/16/22 Caustic Room Attendant Relationship Specialty Start Date End Date Christine Morgan APRN.CD REACTOR OPERATOR [address] [place] [address] 16945 PCP - General Family Medicine 02/10/20 Jase Dumont RN [address] [place] [address] Wan[place] Clerk 08/19/22 Donavon Patricia MD [address] [place] [address] 38457 Home Care Provider Orthopedics 09/16/22 Rafi Fox PHOTOGRAPHIC INTELLIGENCE OFFICER.CD REACTOR OPERATOR [address] [place] [address] 36549 Referring Orthopedics 09/16/22 Caustic Room Attendant Relationship Specialty Start Date End Date Christine Morgan PHOTOGRAPHIC INTELLIGENCE OFFICER.CD REACTOR OPERATOR [address] [place] [address] PCP - General Family Medicine 02/10/20 Jase Dumont, RN [address] [place] [address] Wan[place] Clerk 08/19/22 Donavon Patricia MD [address] [place] [address] 30926 Home Care Provider Orthopedics 09/16/22 Rafi Fox APRN.CD REACTOR OPERATOR [address] [place] [address] 24466 Referring Orthopedics 09/16/22 Caustic Room Attendant Relationship Specialty Start Date End Date Christine Morgan APRN.CD REACTOR OPERATOR [address] [place] [address] 81157 PCP - General Family Medicine 02/10/20 Jase Dumont, GRACE [address] [place] [address] Wan[place] Clerk 08/19/22 Donavon Patricia MD [address] [place] [address] 50686 Home Care Provider Orthopedics 09/16/22 Rafi Fox PHOTOGRAPHIC INTELLIGENCE OFFICER.CD REACTOR OPERATOR [address] [place] [address] 62028 Referring Orthopedics 09/16/22 Caustic Room Attendant Relationship Specialty Start Date End Date Christine Morgan APRN.CD REACTOR OPERATOR [address] [place] [address] 39656 PCP - General Family Medicine 02/10/20 Jase Dumont, GRACE [address] [place] [address] Wan[place] Clerk 08/19/22 Donavon Patricia MD [address] [place] [address] 38462 Home Care Provider Orthopedics 09/16/22 Rafi Fox APRN.CD REACTOR OPERATOR [address] [place] [address] 52060 Referring Orthopedics 09/16/22 Caustic Room Attendant Relationship Specialty Start Date End Date Christine Morgan APRN.CD REACTOR OPERATOR [address] [place] [address] PCP - General Family Medicine 02/10/20 Jase Dumont, RN [address] [place] [address] Wan[place] Clerk 08/19/22 Donavon Patricia MD [address] [place] [address] [phone] Home Care Provider Orthopedics 09/16/22 Rafi Fox APRN.CD REACTOR OPERATOR [address] [place] [address] 37569 Referring Orthopedics 09/16/22 Caustic Room Attendant Relationship Specialty Start Date End Date Christine Morgan APRN.CD REACTOR OPERATOR [address] [place] [address] 84150 PCP - General Family Medicine 02/10/20 Jase Dumont, GRACE [address] [place] [phone] Wan[place] Clerk 08/19/22 Donavon Patricia MD [address] [place] [address] 68181 Home Care Provider Orthopedics 09/16/22 Rafi Fox APRN.CD REACTOR OPERATOR [address] [place] [address] 19541 Referring Orthopedics 09/16/22 Caustic Room Attendant Relationship Specialty Start Date End Date Christine Morgan APRN.CD REACTOR OPERATOR [address] [place] [address] PCP - General Family Medicine 02/10/20 Jase Dumont, RN [address] [place] [address] Wan[place] Clerk 08/19/22 Donavon Patricia MD [address] [place] [address] 67735 Home Care Provider Orthopedics 09/16/22 Rafi Fox, PHOTOGRAPHIC INTELLIGENCE OFFICER.CD REACTOR OPERATOR [address] [place] [address] 83379 Referring Orthopedics 09/16/22 Caustic Room Attendant Relationship Specialty Start Date End Date Christine Morgan APRN.CD REACTOR OPERATOR [address] [place] [address] 78812 PCP - General Family Medicine 02/10/20 Jase Dumont, GRACE [address] [place], [place] 5244031 [place] Clerk 08/19/22 Donavon Patricia MD [address] [place] [address] 99618 Home Care Provider Orthopedics 09/16/22 Rafi Fox PHOTOGRAPHIC INTELLIGENCE OFFICER.CD REACTOR OPERATOR [address] [place] [address] 82268 Referring Orthopedics 09/16/22 Caustic Room Attendant Relationship Specialty Start Date End Date Christine Morgan APRN.CD REACTOR OPERATOR [address] [place] [address] PCP - General Family Medicine 02/10/20 Jase Dumont, GRACE [address] [place] [address] Wan[place] Clerk 08/19/22 Donavon Patricia MD [address] [place] [address] 39768 Home Care Provider Orthopedics 09/16/22 Rafi Fox, PHOTOGRAPHIC INTELLIGENCE OFFICER.CD REACTOR OPERATOR [address] [place] [address] 70447 Referring Orthopedics 09/16/22 Caustic Room Attendant Relationship Specialty Start Date End Date Christine Morgan PHOTOGRAPHIC INTELLIGENCE OFFICER.CD REACTOR OPERATOR [address] [place] [address] 72104 PCP - General Family Medicine 02/10/20 Jase Dumont, GRACE [address] [place] [address] Wan[place] Clerk 08/19/22 Donavon Patricia MD [address] [place] [address] 30516 Home Care Provider Orthopedics 09/16/22 Rafi Fox, PHOTOGRAPHIC INTELLIGENCE OFFICER.CD REACTOR OPERATOR [address] [place] [address] 75174 Referring Orthopedics 09/16/22 Caustic Room Attendant Relationship Specialty Start Date End Date Christine Morgan PHOTOGRAPHIC INTELLIGENCE OFFICER.CD REACTOR OPERATOR [address] [place] [address] PCP - General Family Medicine 02/10/20 Jase Dumont, GRACE [address] [place] [address] Wan[place] Clerk 08/19/22 Donavon Patricia MD [address] [place] [address] 02440 Home Care Provider Orthopedics 09/16/22 Rafi Fox APRN.CD REACTOR OPERATOR [address] [place] [address] [phone] Referring Orthopedics 09/16/22 Caustic Room Attendant Relationship Specialty Start Date End Date Christine Morgan APRN.CD REACTOR OPERATOR [address] [place], [place] 246911 PCP - General Family Medicine 02/10/20 Jase Dumont, GRACE [address] [place], [place] 9777231 Wan[place] Clerk 08/19/22 Donavon Patricia MD [address] [place] [address] 86765 Home Care Provider Orthopedics 09/16/22 Rafi Fox APRN.CD REACTOR OPERATOR [address] [place] [address] 39658 Referring Orthopedics 09/16/22 Caustic Room Attendant Relationship Specialty Start Date End Date Christine Morgan APRN.CD REACTOR OPERATOR [facility] [place] [address] PCP - General Family Medicine 02/10/20 Jase Dumont, GRACE [address] [place] [address] Wan[place] Clerk 08/19/22 Donavon Patricia MD [address] [place] [address] [phone] Home Care Provider Orthopedics 09/16/22 Rafi Fox APRN.CD REACTOR OPERATOR [address] [place] [address] 96798 Referring Orthopedics 09/16/22 Caustic Room Attendant Relationship Specialty Start Date End Date Christine Morgan APRN.CD REACTOR OPERATOR [address] [place], [place] 087241 PCP - General Family Medicine 02/10/20 Jase Dumont, RN [address] [place] [address] Wan[place] Clerk 08/19/22 Donavon Patricia MD [address] [place] [address] [phone] Home Care Provider Orthopedics 09/16/22 Rafi Fox APRN.CD REACTOR OPERATOR [address] [place] [address] [phone] Referring Orthopedics 09/16/22 Caustic Room Attendant Relationship Specialty Start Date End Date Christine Morgan APRN.CD REACTOR OPERATOR [address] [place] [address] PCP - General Family Medicine 02/10/20 Jase Dumont, RN [address] [place] [address] Wanigan Clerk 08/19/22 Donavon Patricia MD [address] [place] [address] [phone] Home Care Provider Orthopedics 09/16/22 Rafi Fox PHOTOGRAPHIC INTELLIGENCE OFFICER.CD REACTOR OPERATOR [address] [place] [address] [phone] Referring Orthopedics 09/16/22 Caustic Room Attendant Relationship Specialty Start Date End Date Christine Morgan APRN.CD REACTOR OPERATOR [address] [place], [place] [id number] PCP - General Family Medicine 02/10/20 Jase Dumont, RN [address] [place] [address] Wanigan Clerk 08/19/22 Donavon Patricia MD [address] [place] [address] 24856 Home Care Provider Orthopedics 09/16/22 Rafi Fox APRN.CD REACTOR OPERATOR [address] [place] [address] 05616 Referring Orthopedics 09/16/22 Caustic Room Attendant Relationship Specialty Start Date End Date Christine Morgan APRN.CD REACTOR OPERATOR [address] [place] [address] 72189 PCP - General Family Medicine 02/10/20 Jase Dumont, GRACE [address] [place] [address] Wanigan Clerk 08/19/22 Donavon Patricia MD [address] [place] [address] 50776 Home Care Provider Orthopedics 09/16/22 Rafi Fox PHOTOGRAPHIC INTELLIGENCE OFFICER.CD REACTOR OPERATOR [address] [place] [address] 42654 Referring Orthopedics 09/16/22 Caustic Room Attendant Relationship Specialty Start Date End Date Christine Morgan APRN.CD REACTOR OPERATOR [address] [place] [address] PCP - General Family Medicine 02/10/20 Jase Dumont, GRACE [address] [place] [address] Wanigan Clerk 08/19/22 Donavon Patricia MD [address] [place] [address] 76026 Home Care Provider Orthopedics 09/16/22 Rafi Fox APRN.CD REACTOR OPERATOR [address] [place] [address] 94286 Referring Orthopedics 09/16/22 Caustic Room Attendant Relationship Specialty Start Date End Date Christine Morgan APRN.CD REACTOR OPERATOR [address] [place] [address] 71795 PCP - General Family Medicine 02/10/20 Jase Dumont, RN [address] [place] [address] Wanigan Clerk 08/19/22 Donavon Patricia MD [address] [place] [address] 61974 Home Care Provider Orthopedics 09/16/22 aRfi oFx APRN.CD REACTOR OPERATOR [address] [place] [address] 58491 Referring Orthopedics 09/16/22 Caustic Room Attendant Relationship Specialty Start Date End Date Christine Morgan APRN.CD REACTOR OPERATOR [address] [place] [address] 78896 PCP - General Family Medicine 02/10/20 Jase Duomnt, GRACE [address] [place] [address] Wanigan Clerk 08/19/22 Donavon Patricia MD [address] [place] [address] 34477 Home Care Provider Orthopedics 09/16/22 Rafi Fox APRN.CD REACTOR OPERATOR [address] [place] [address] 36334 Referring Orthopedics 09/16/22 Caustic Room Attendant Relationship Specialty Start Date End Date Christine Morgan APRN.CD REACTOR OPERATOR [address] [place] [address] PCP - General Family Medicine 02/10/20 aJse Dumont, GRACE [address] [place], [place] 4103731 [place] Clerk 08/19/22 Donavon Patricia MD [address] [place] [address] 57247 Home Care Provider Orthopedics 09/16/22 Rafi Fox PHOTOGRAPHIC INTELLIGENCE OFFICER.CD REACTOR OPERATOR [address] [place] [address] 63032 Referring Orthopedics 09/16/22 Caustic Room Attendant Relationship Specialty Start Date End Date Christine Morgan APRN.CD REACTOR OPERATOR [address] [place] [address] 77223 PCP - General Family Medicine 02/10/20 Boby Gonsalez [facility] [address] [place] [address] Specialty [facility] 04/23/22 10/22/22 Jase Dumont, GRACE [address] [place] [address] Wanigan Clerk 08/19/22 Donavon Patricia MD [address] [place] [address] 86643 Home Care Provider Orthopedics 09/16/22 Rafi Fox PHOTOGRAPHIC INTELLIGENCE OFFICER.CD REACTOR OPERATOR [address] [place] [address] 20350 Referring Orthopedics 09/16/22 Saniya Martínez, PT [address] [place] [address] Family Dinner Service Specialist Post Acute Care 09/17/22 11/11/22 Caustic Room Attendant Relationship Specialty Start Date End Date Christine Morgan, PHOTOGRAPHIC INTELLIGENCE OFFICER.CD REACTOR OPERATOR [address] [place] [address] PCP - General Family Medicine 02/10/20 Boby Gonsalez, [facility] [address] [place] [address] Specialty [facility] 04/23/22 10/22/22 Donavon Patricia MD [address] [place] [address] 26232 Home Care Provider Orthopedics 07/08/22 09/15/22 Rafi Fox, PHOTOGRAPHIC INTELLIGENCE OFFICER.CD REACTOR OPERATOR [address] [place] [address] 87551 Referring Orthopedics 07/08/22 09/15/22 Saniya Martínez, PT [address] [place] [address] Family Dinner Service Specialist Post Acute Care 07/09/22 09/15/22 Caustic Room Attendant Relationship Specialty Start Date End Date Christine Morgan PHOTOGRAPHIC INTELLIGENCE OFFICER.CD REACTOR OPERATOR [address] [place] [address] PCP - General Family Medicine 02/10/20 Jase Dumont, GRACE [address] [place] [address] [place] Clerk 08/19/22 Donavon Patricia MD [address] [place] [address] 69730 Home Care Provider Orthopedics 09/16/22 Rafi Fox, PHOTOGRAPHIC INTELLIGENCE OFFICER.CD REACTOR OPERATOR [address] [place] [address] 22030 Referring Orthopedics 09/16/22 Caustic Room Attendant Relationship Specialty Start Date End Date Christine Morgan APRN.CD REACTOR OPERATOR [address] [place], [place] [id number] PCP - General Family Medicine 02/10/20 Jase Dumont, GRACE [address] [place] [address] [place] Clerk 08/19/22 Donavon Patricia MD [address] [place] [address] 79013 Home Care Provider Orthopedics 09/16/22 Rafi Fox APRN.CD REACTOR OPERATOR [address] [place] [address] 95158 Referring Orthopedics 09/16/22 Caustic Room Attendant Relationship Specialty Start Date End Date Christine Mogran APRN.CD REACTOR OPERATOR [address] [place] [address] 91602 PCP - General Family Medicine 02/10/20 Kaylen Lindsey DO [address] [place] [address] 11700 Home Care Provider Orthopedics 11/18/21 07/07/22 Kurt Eli MD [address] [place] [address] 89302 Referring Internal Medicine 11/19/21 07/07/22 Saniya Martínez, PT [address] [place], [place] [phone] Family Dinner Service Specialist Post Acute Care 11/19/21 07/07/22 Caustic Room Attendant Relationship Specialty Start Date End Date Christine Morgan APRN.CD REACTOR OPERATOR [address] [place] [address] PCP - General Family Medicine 02/10/20 Kaylen Lindsey DO [address] [place] [address] Home Care Provider Orthopedics 11/18/21 07/07/22 Kurt Eli MD [address] [place] [address] Referring Internal Medicine 11/19/21 07/07/22 Saniya Martínez, PT [address] [place] [address] Family Dinner Service Specialist Post Acute Care 11/19/21 07/07/22 Caustic Room Attendant Relationship Specialty Start Date End Date Christine Morgan APRN.CD REACTOR OPERATOR [address] [place] [address] PCP - General Family Medicine 02/10/20 Kaylen Lindsey DO [address] [place] [address] Home Care Provider Orthopedics 11/18/21 07/07/22 Kurt Eli MD [address] [place] [address] Referring Internal Medicine 11/19/21 07/07/22 Saniya Martínez, PT [address] [place], [place] [phone] Family Dinner Service Specialist Post Acute Care 11/19/21 07/07/22 Boby Gonsalez, [facility] [address] [place] [address] Specialty [facility] 04/23/22 10/22/22 Caustic Room Attendant Relationship Specialty Start Date End Date Christine Morgan APRN.CD REACTOR OPERATOR [address] [place] [address] PCP - General Family Medicine 02/10/20 Jase Dumont, GRACE [address] [place] [address] Wan[place] Clerk 08/19/22 Donavon Patricia MD [address] [place] [address] 80500 Home Care Provider Orthopedics 09/16/22 Rafi Fox PHOTOGRAPHIC INTELLIGENCE OFFICER.CD REACTOR OPERATOR [address] [place] [address] 73219 Referring Orthopedics 09/16/22 Caustic Room Attendant Relationship Specialty Start Date End Date Christine Morgan PHOTOGRAPHIC INTELLIGENCE OFFICER.CD REACTOR OPERATOR [address] [place] [address] PCP - General Family Medicine 02/10/20 Caustic Room Attendant Relationship Specialty Start Date End Date Christine Morgan, PHOTOGRAPHIC INTELLIGENCE OFFICER.CD REACTOR OPERATOR [address] [place] [address] PCP - General Family Medicine 02/10/20 Jase Dumont, GRACE [address] [place] [address] [place] Clerk 08/19/22 Donavon Patricia MD [address] [place] [address] 62328 Home Care Provider Orthopedics 09/16/22 Rafi Fox PHOTOGRAPHIC INTELLIGENCE OFFICER.CD REACTOR OPERATOR [address] [place] [address] 20348 Referring Orthopedics 09/16/22 Caustic Room Attendant Relationship Specialty Start Date End Date Christine Morgan APRN.CD REACTOR OPERATOR [address] [place] [address] 15382 PCP - General Family Medicine 02/10/20 Jase Dumont, RN [address] [place] [address] [place] Clerk 08/19/22 Donavon Patricia MD [address] [place] [address] 64027 Home Care Provider Orthopedics 09/16/22 Rafi Fox APRN.CD REACTOR OPERATOR [address] [place] [address] 33737 Referring Orthopedics 09/16/22 Caustic Room Attendant Relationship Specialty Start Date End Date Christine Morgan APRN.CD REACTOR OPERATOR [address] [place] [address] 50683 PCP - General Family Medicine 02/10/20 Jase Dumont, GRACE [address] [place] [address] [place] Clerk 08/19/22 Donavon Patricia MD [address] [place] [address] 64335 Home Care Provider Orthopedics 09/16/22 Rafi Fox PHOTOGRAPHIC INTELLIGENCE OFFICER.CD REACTOR OPERATOR [address] [place] [address] 05959 Referring Orthopedics 09/16/22 Caustic Room Attendant Relationship Specialty Start Date End Date Christine Morgan APRN.CD REACTOR OPERATOR [address] [place] [address] PCP - General Family Medicine 02/10/20 Jase Dumont RN [address] [place] [address] [place] Clerk 08/19/22 Donavon Patricia MD [address] [place] [address] 99546 Home Care Provider Orthopedics 09/16/22 Rafi Fox APRN.CD REACTOR OPERATOR [address] [place] [address] 87965 Referring Orthopedics 09/16/22 Caustic Room Attendant Relationship Specialty Start Date End Date Christine Morgan APRN.CD REACTOR OPERATOR [facility] [place] [address] PCP - General Family Medicine 02/10/20 Jase Dumont RN [address] [place], [place] [phone] [place] Clerk 08/19/22 Donavon Patricia MD [address] [place] [address] 76889 Home Care Provider Orthopedics 09/16/22 Rafi Fox APRN.CD REACTOR OPERATOR [address] [place] [address] 32790 Referring Orthopedics 09/16/22 Caustic Room Attendant Relationship Specialty Start Date End Date Christine Morgan APRN.CD REACTOR OPERATOR [facility] [place] [address] PCP - General Family Medicine 02/10/20 Donavon Patricia MD [address] [place] [address] 20201 Home Care Provider Orthopedics 09/16/22 Rafi Fox APRN.CD REACTOR OPERATOR [address] [place] [address] 69467 Referring Orthopedics 09/16/22 Caustic Room Attendant Relationship Specialty Start Date End Date Christine Morgan APRN.CD REACTOR OPERATOR [address] [place], [place] 931151 PCP - General Family Medicine 02/10/20 Donavon Patricia MD [address] [place] [address] 84174 Home Care Provider Orthopedics 09/16/22 Rafi Fox PHOTOGRAPHIC INTELLIGENCE OFFICER.CD REACTOR OPERATOR [address] [place] [address] 10299 Referring Orthopedics 09/16/22 Christine Black PHOTOGRAPHIC INTELLIGENCE OFFICER.CD REACTOR OPERATOR [facility] [place], [place] 732441 Derivatives Trader Family Medicine 02/28/24 Dao Caraballo MD [facility] [place], [place] 808541 Derivatives Trader Family Medicine 02/28/24 Caustic Room Attendant Relationship Specialty Start Date End Date Christine Morgan PHOTOGRAPHIC INTELLIGENCE OFFICER.CD REACTOR OPERATOR [address] [place], [place] [id number] PCP - General Family Medicine 02/10/20 Jase Dumont, GRACE [address] [place] [address] [place] Clerk 08/19/2202/22/24 Donavon Patricia MD [address] [place] [address] 11140 Home Care Provider Orthopedics 09/16/22 Rafi Fox APRN.CD REACTOR OPERATOR [address] [place] [address] 32548 Referring Orthopedics 09/16/22 Caustic Room Attendant Relationship Specialty Start Date End Date Christine Morgan PHOTOGRAPHIC INTELLIGENCE OFFICER.CD REACTOR OPERATOR [facility] [place], [place] 064541 PCP - General Family Medicine 02/10/20 Donavon Patricia MD [address] [place] [address] 34036 Home Care Provider Orthopedics 09/16/22 Rafi Fox PHOTOGRAPHIC INTELLIGENCE OFFICER.CD REACTOR OPERATOR [address] [place] [address] 88613 Referring Orthopedics 09/16/22 Christine Black PHOTOGRAPHIC INTELLIGENCE OFFICER.CD REACTOR OPERATOR [address] [place], [place] 120811 Derivatives Trader Family Medicine 02/28/24 Dao Caraballo MD [address] [place], [place] 042041 Derivatives Trader Family Medicine 02/28/24 Caustic Room Attendant Relationship Specialty Start Date End Date Christine Morgan PHOTOGRAPHIC INTELLIGENCE OFFICER.CD REACTOR OPERATOR [address] [place], [place] 709111 PCP - General Family Medicine 02/10/20 Donavon Patricia MD [address] [place] [address] 23852 Home Care Provider Orthopedics 09/16/22 Rafi Fox APRN.CD REACTOR OPERATOR [address] [place] [address] 36003 Referring Orthopedics 09/16/22 Christine Black APRN.CD REACTOR OPERATOR [address] [place] [address] Derivatives Trader Family Medicine 02/28/24 Dao Caraballo MD [facility] [place], [place] 646341 Derivatives Trader Family Medicine 02/28/24 Caustic Room Attendant Relationship Specialty Start Date End Date Christine Morgan APRN.CD REACTOR OPERATOR [address] [place] [address] 86471 PCP - General Family Medicine 02/10/20 Donavon Patricia MD [address] [place] [address] 30233 Home Care Provider Orthopedics 09/16/22 Rafi Fox APRN.CD REACTOR OPERATOR [address] [place] [address] 99865 Referring Orthopedics 09/16/22 Christine Black PHOTOGRAPHIC INTELLIGENCE OFFICER.CD REACTOR OPERATOR [address] [place], [place] 065031 Derivatives Trader Family Medicine 02/28/24 Dao Caraballo MD [address] [place], [place] [id number] Derivatives Trader Family Medicine 02/28/24 Caustic Room Attendant Relationship Specialty Start Date End Date Christine Morgan APRN.CD REACTOR OPERATOR [address] [place], [place] 672891 PCP - General Family Medicine 02/10/20 Donavon Patricia MD [address] [place] [address] [phone] Home Care Provider Orthopedics 09/16/22 Rafi Fox, PHOTOGRAPHIC INTELLIGENCE OFFICER.CD REACTOR OPERATOR [address] [place] [address] [phone] Referring Orthopedics 09/16/22 Dao Caraballo MD [address] [place] [address] [facility] 02/[facility] Caustic Room Attendant Relationship Specialty Start Date End Date Christine Morgan PHOTOGRAPHIC INTELLIGENCE OFFICER.CD REACTOR OPERATOR [address] [place] [address] PCP - General Family Medicine 02/10/20 Donavon Patricia MD [address] [place] [address] 40926 Home Care Provider Orthopedics 09/16/22 Rafi Fox PHOTOGRAPHIC INTELLIGENCE OFFICER.CD REACTOR OPERATOR [address] [place] [address] 14261 Referring Orthopedics 09/16/22 Christine Black PHOTOGRAPHIC INTELLIGENCE OFFICER.CD REACTOR OPERATOR [address] [place] [address] Derivatives Trader Family Medicine 02/28/24 Dao Caraballo MD [address] [place] [address] Derivatives Trader Family Medicine 02/28/24 Caustic Room Attendant Relationship Specialty Start Date End Date Christine Morgan APRN.CD REACTOR OPERATOR [address] [place] [address] PCP - General Family Medicine 02/10/20 Donavon Patricia MD [address] [place] [address] [phone] Home Care Provider Orthopedics 09/16/22 Rafi Fox, PHOTOGRAPHIC INTELLIGENCE OFFICER.CD REACTOR OPERATOR [address] [place] [address] [phone] Referring Orthopedics 09/16/22 Christine Black, PHOTOGRAPHIC INTELLIGENCE OFFICER.CD REACTOR OPERATOR [address] [place] [address] Derivatives Trader Family Medicine 02/28/24 Dao Caraballo MD [address] [place] [address] Derivatives Trader Family Medicine 02/28/24 Caustic Room Attendant Relationship Specialty Start Date End Date Christine Morgan APRN.CD REACTOR OPERATOR [address] [place] [address] PCP - General Family Medicine 02/10/20 Donavon Patricia MD [address] [place] [address] [phone] Home Care Provider Orthopedics 09/16/22 Rafi Fox PHOTOGRAPHIC INTELLIGENCE OFFICER.CD REACTOR OPERATOR [address] [place] [address] 61705 Referring Orthopedics 09/16/22 Christine Black PHOTOGRAPHIC INTELLIGENCE OFFICER.CD REACTOR OPERATOR [address] [place] [address] Derivatives Trader Family Medicine 02/28/24 Dao Caraballo MD [address] [place] [address]991 Derivatives Trader Family Medicine 02/28/24 Caustic Room Attendant Relationship Specialty Start Date End Date Christine Morgan PHOTOGRAPHIC INTELLIGENCE OFFICER.CD REACTOR OPERATOR [address] [place] [address] PCP - General Family Medicine 02/10/20 Donavon Patricia MD [address] [place] [address] [address] [place] [address] Home Care Provider Orthopedics 09/16/22 Rafi Fox PHOTOGRAPHIC INTELLIGENCE OFFICER.CD REACTOR OPERATOR [address] [place] [address] 94655 Referring Orthopedics 09/16/22 Christine Black PHOTOGRAPHIC INTELLIGENCE OFFICER.CD REACTOR OPERATOR [address] [place] [address] Derivatives Trader Family Medicine 02/28/24 Dao Caraballo MD [address] [facility] [place] 99[address]71 Derivatives Trader Family Medicine 02/28/24 Caustic Room Attendant Relationship Specialty Start Date End Date Christine Morgan, PHOTOGRAPHIC INTELLIGENCE OFFICER.CD REACTOR OPERATOR [address] [facility] [place] [address] PCP - General Family Medicine 02/10/20 Donavon Patricia MD [address] [place] [address] 46071 Home Care Provider Orthopedics 09/16/22 Rafi Fox APRN.CD REACTOR OPERATOR [address] [place] [address] 44907 Referring Orthopedics 09/16/22 Christine Black PHOTOGRAPHIC INTELLIGENCE OFFICER.CD REACTOR OPERATOR [facility] [place], [place] 7[address] Derivatives Trader Family Medicine 02/28/24 Dao Caraballo MD [facility] [place], [place] 7337[address] Derivatives Trader Family Medicine 02/28/24 Caustic Room Attendant Relationship Specialty Start Date End Date Christine Morgan APRN.CD REACTOR OPERATOR [address] [place], [place] 057241 PCP - General Family Medicine 02/10/20 Donavon Patricia MD [address] [place] [address] 02771 Home Care Provider Orthopedics 09/16/22 Rafi Fox PHOTOGRAPHIC INTELLIGENCE OFFICER.CD REACTOR OPERATOR [address] [place] [address] 49530 Referring Orthopedics 09/16/22 Christine Black PHOTOGRAPHIC INTELLIGENCE OFFICER.CD REACTOR OPERATOR [address] [place] [address] Derivatives Trader Family Medicine 02/28/24 Dao Caraballo MD [address] [place] [address] Derivatives Trader Family Medicine 02/28/24 Caustic Room Attendant Relationship Specialty Start Date End Date Christine Morgan APRN.CD REACTOR OPERATOR [address] [place] [address] PCP - General Family Medicine 02/10/20 Donavon Patricia MD [address] [place] [address] 03103 Home Care Provider Orthopedics 09/16/22 Rafi Fox APRN.CD REACTOR OPERATOR [address] [place] [address] 68151 Referring Orthopedics 09/16/22 Christine Black APRN.CD REACTOR OPERATOR [address] [place] [address] Derivatives Trader Family Medicine 02/28/24 Dao Caraballo MD [address] [place] [address] Derivatives Trader Family Medicine 02/28/24 Caustic Room Attendant Relationship Specialty Start Date End Date Christine Morgan APRN.CD REACTOR OPERATOR [address] [place] [address] PCP - General Family Medicine 02/10/20 Donavon Patricia MD [address] [place] [address] 00320 Home Care Provider Orthopedics 09/16/22 Rafi Fox PHOTOGRAPHIC INTELLIGENCE OFFICER.CD REACTOR OPERATOR [address] [place] [address] [phone] Referring Orthopedics 09/16/22 Christine Black PHOTOGRAPHIC INTELLIGENCE OFFICER.CD REACTOR OPERATOR [address] [place], [place] 192991 Derivatives Trader Family Medicine 02/28/24 Dao Caraballo MD [address] [place], [place] 045401 Derivatives Trader Family Medicine 02/28/24 Caustic Room Attendant Relationship Specialty Start Date End Date Christine Morgan PHOTOGRAPHIC INTELLIGENCE OFFICER.CD REACTOR OPERATOR [address] [place], [place] 192061 PCP - General Family Medicine 02/10/20 Donavon Patricia MD [address] [place] [address] [phone] Home Care Provider Orthopedics 09/16/22 Rafi Fox, PHOTOGRAPHIC INTELLIGENCE OFFICER.CD REACTOR OPERATOR [address] [place] [address] [phone] Referring Orthopedics 09/16/22 Christine Black PHOTOGRAPHIC INTELLIGENCE OFFICER.CD REACTOR OPERATOR [address] [place] [address] Derivatives Trader Family Medicine 02/28/24 Doa Caraballo MD [address] [place], [place] 970621 Derivatives Trader Family Medicine 02/28/24 Caustic Room Attendant Relationship Specialty Start Date End Date Christine Morgan, PHOTOGRAPHIC INTELLIGENCE OFFICER.CD REACTOR OPERATOR [address] [place] [address] PCP - General Family Medicine 02/10/20 Donavon Patricia MD [address] [place] [address] 15269 Home Care Provider Orthopedics 09/16/22 Rafi Fox APRN.CD REACTOR OPERATOR [address] [place] [address] 38827 Referring Orthopedics 09/16/22 Caustic Room Attendant Relationship Specialty Start Date End Date Christine Morgan APRN.CD REACTOR OPERATOR [address] [place] [address] [phone] PCP - General Family Medicine 02/10/20 Donavon Patricia MD [address] [place] [address] 10685 Home Care Provider Orthopedics 09/16/22 Rafi Fox APRN.CD REACTOR OPERATOR [address] [place] [address] 68974 Referring Orthopedics 09/16/22 Lory Chan, RN [address] [place] [address] [place] Clerk 06/17/24 Caustic Room Attendant Relationship Specialty Start Date End Date Christine Morgan APRN.CD REACTOR OPERATOR [address] [place] [address] 53539 PCP - General Family Medicine 02/10/20 Donavon Patricia MD [address] [place] [address] 53331 Home Care Provider Orthopedics 09/16/22 Rafi Fox APRN.CD REACTOR OPERATOR [address] [place] [address] 62212 Referring Orthopedics 09/16/22 Lory Chan, GRACE [address] [place], [place] [phone] [place] Clerk 06/17/24 Caustic Room Attendant Relationship Specialty Start Date End Date Christine Morgan APRN.CD REACTOR OPERATOR [address] [place] [address] PCP - General Family Medicine 02/10/20 Donavon Patricia MD [address] [place] [address] [phone] Home Care Provider Orthopedics 09/16/22 Rafi Fox APRN.CD REACTOR OPERATOR [address] [place] [address] 36957 Referring Orthopedics 09/16/22 Lory Chan RN [address] [place], [place] [phone] [place] Clerk 06/17/24 Caustic Room Attendant Relationship Specialty Start Date End Date Christine Morgan APRN.CD REACTOR OPERATOR [address] [place] [address] PCP - General Family Medicine 02/10/20 Donavon Patricia MD [address] [place] [address] 85407 Home Care Provider Orthopedics 09/16/22 Rafi Fox PHOTOGRAPHIC INTELLIGENCE OFFICER.CD REACTOR OPERATOR [address] [place] [address] 34046 Referring Orthopedics 09/16/22 Lory Chan RN [address] [place] [address] Wan[place] Clerk 06/17/24 Caustic Room Attendant Relationship Specialty Start Date End Date Christine Morgan APRN.CD REACTOR OPERATOR [address] [place] [address] PCP - General Family Medicine 02/10/20 Donavon Patricia MD [address] [place] [address] 71209 Home Care Provider Orthopedics 09/16/22 Rafi Fox PHOTOGRAPHIC INTELLIGENCE OFFICER.CD REACTOR OPERATOR [address] [place] [address] 75958 Referring Orthopedics 09/16/22 Lory Chan RN [address] [place] [address] Wan[place] Clerk 06/17/24 Caustic Room Attendant Relationship Specialty Start Date End Date Christine Morgan APRN.CD REACTOR OPERATOR [address] [place] [address] PCP - General Family Medicine 02/10/20 Donavon Patricia MD [address] [place] [address] 27888 Home Care Provider Orthopedics 09/16/22 Rafi Fox PHOTOGRAPHIC INTELLIGENCE OFFICER.CD REACTOR OPERATOR [address] [place] [address] 10720 Referring Orthopedics 09/16/22 Lory Chan RN [address] [place] [address] Wanigan Clerk 06/17/24 Caustic Room Attendant Relationship Specialty Start Date End Date Christine Morgan APRN.CD REACTOR OPERATOR [address] [place] [address] PCP - General Family Medicine 02/10/20 Donavon Patricia MD [address] [place] [address] 78880 Home Care Provider Orthopedics 09/16/22 Rafi Fox APRN.CD REACTOR OPERATOR [address] [place] [address] 37985 Referring Orthopedics 09/16/22 Lory Chan RN [address] [place] [address] [place] Clerk 06/17/24 Caustic Room Attendant Relationship Specialty Start Date End Date Christine Morgan APRN.CD REACTOR OPERATOR [address] [place] [address] 36894 PCP - General Family Medicine 02/10/20 Donavon Patricia MD [address] [place] [address] 88219 Home Care Provider Orthopedics 09/16/22 Rafi Fox APRN.CD REACTOR OPERATOR [address] [place] [address] 67715 Referring Orthopedics 09/16/22 Lory Chan RN [address] [place] [address] Wanigan Clerk 06/17/24 Caustic Room Attendant Relationship Specialty Start Date End Date Christine Morgan APRN.CD REACTOR OPERATOR [address] [place], [place] 472421 PCP - General Family Medicine 02/10/20 Donavon Patricia MD [address] [place] [address] 57652 Home Care Provider Orthopedics 09/16/22 Rafi Fox APRN.CD REACTOR OPERATOR [address] [place] [address] 01716 Referring Orthopedics 09/16/22 Lory Chan RN [address] [place] [address] Wan[place] Clerk 06/17/24 Caustic Room Attendant Relationship Specialty Start Date End Date Christine Morgan, PHOTOGRAPHIC INTELLIGENCE OFFICER.CD REACTOR OPERATOR [address] [place], [place] 631931 PCP - General Family Medicine 02/10/20 Donavon Patricia MD [address] [place] [address] 18565 Home Care Provider Orthopedics 09/16/22 Rafi Fox, PHOTOGRAPHIC INTELLIGENCE OFFICER.CD REACTOR OPERATOR [address] [place] [address] 09075 Referring Orthopedics 09/16/22 Lory Chan RN [address] [place] [address] Wan[place] Clerk 06/17/24 Caustic Room Attendant Relationship Specialty Start Date End Date Christine Morgan, PHOTOGRAPHIC INTELLIGENCE OFFICER.CD REACTOR OPERATOR [address] [place] [address] PCP - General Family Medicine 02/10/20 Donavon Patricia MD [address] [place] [address] 15100 Home Care Provider Orthopedics 09/16/22 Rafi Fox PHOTOGRAPHIC INTELLIGENCE OFFICER.CD REACTOR OPERATOR [address] [place] [address] 20314 Referring Orthopedics 09/16/22 Lory Chan RN [address] [place], [place] [phone] [place] Clerk 06/17/24 Caustic Room Attendant Relationship Specialty Start Date End Date Christine Morgan APRN.CD REACTOR OPERATOR [address] [place] [address] PCP - General Family Medicine 02/10/20 Donavon Patricia MD [address] [place] [address] [phone] Home Care Provider Orthopedics 09/16/22 Rafi Fox, PHOTOGRAPHIC INTELLIGENCE OFFICER.CD REACTOR OPERATOR [address] [place] [address] [phone] Referring Orthopedics 09/16/22 Lory Chan RN [address] [place] [address] Wanigan Clerk 06/17/24 Caustic Room Attendant Relationship Specialty Start Date End Date Christine Morgan APRN.CD REACTOR OPERATOR [address] [place] [address] PCP - General Family Medicine 02/10/20 Donavon Patricia MD [address] [place] [address] 45370 Home Care Provider Orthopedics 09/16/22 Rafi Fox PHOTOGRAPHIC INTELLIGENCE OFFICER.CD REACTOR OPERATOR [address] [place] [address] 15463 Referring Orthopedics 09/16/22 Lory Chan RN [address] [place] [address] Wanigan Clerk 06/17/24 Caustic Room Attendant Relationship Specialty Start Date End Date Christine Morgan APRN.CD REACTOR OPERATOR [address] [place], [place] 130521 PCP - General Family Medicine 02/10/20 Donavon Patricia MD [address] [place] [address] 41184 Home Care Provider Orthopedics 09/16/22 Rafi Fox APRN.CD REACTOR OPERATOR [address] [place] [address] 35689 Referring Orthopedics 09/16/22 Lory Chan RN [address] [place] [address] [place] Clerk 06/17/24 Caustic Room Attendant Relationship Specialty Start Date End Date Christine Morgan APRN.CD REACTOR OPERATOR [facility] [place] [address] PCP - General Family Medicine 02/10/20 Donavon Patricia MD [address] [place] [address] 05506 Home Care Provider Orthopedics 09/16/22 Rafi Fox APRN.CD REACTOR OPERATOR [address] [place] [address] 53042 Referring Orthopedics 09/16/22 Lory Chan, GRACE [address] [place] [address] Wan[place] Clerk 06/17/24 Caustic Room Attendant Relationship Specialty Start Date End Date Christine Morgan APRN.CD REACTOR OPERATOR [address] [place] [address] PCP - General Family Medicine 02/10/20 Donavon Patricia MD [address] [place] [address] 44717 Home Care Provider Orthopedics 09/16/22 Rafi Fox, KULWANT.CD REACTOR OPERATOR [address] [place] [address] 62304 Referring Orthopedics 09/16/22 Lroy Chan RN [address] [place] [address] Wan[place] Clerk 06/17/24 Caustic Room Attendant Relationship Specialty Start Date End Date Christine Morgan APRN.CD REACTOR OPERATOR [address] [place] [address] [phone] PCP - General Family Medicine 02/10/20 Donavon Patricia MD [address] [place] [address] 59558 Home Care Provider Orthopedics 09/16/22 Rafi Fox APRN.CD REACTOR OPERATOR [address] [place] [address] 87970 Referring Orthopedics 09/16/22 Lory Chan, GRACE [address] [place] [address] [place] Clerk 06/17/24 Caustic Room Attendant Relationship Specialty Start Date End Date Christine Morgan APRN.CD REACTOR OPERATOR [address] [place] [address] 16065 PCP - General Family Medicine 02/10/20 Donavon Patricia MD [address] [place] [address] [phone] Home Care Provider Orthopedics 09/16/22 Rafi Fox APRN.CD REACTOR OPERATOR [address] [place] [address] [phone] Referring Orthopedics 09/16/22 Lory Chan RN [address] [place] [address] Wanigan Clerk 06/17/2409/27 Caustic Room Attendant Relationship Specialty Start Date End Date Christine Morgan APRN.CD REACTOR OPERATOR [address] [place] [address] PCP - General Family Medicine 02/10/20 Donavon Patricia MD [address] [place] [address] [phone] Home Care Provider Orthopedics 09/16/22 Rafi Fox APRN.CD REACTOR OPERATOR [address] [place] [address] [phone] Referring Orthopedics 09/16/22 Caustic Room Attendant Relationship Specialty Start Date End Date Christine Morgan APRN.CD REACTOR OPERATOR [address] [place], [place] 155451 PCP - General Family Medicine 02/10/20 Donavon Patricia MD [address] [place] [address] [phone] Home Care Provider Orthopedics 09/16/22 Rafi Fox APRN.CD REACTOR OPERATOR [address] [place] [address] [phone] Referring Orthopedics 09/16/22 Lory Chan RN [address] [place] [address] Wanigan Clerk 06/17/2409/27 Caustic Room Attendant Relationship Specialty Start Date End Date Christine Morgan APRN.CD REACTOR OPERATOR [address] [place], [place] [id number] PCP - General Family Medicine 02/10/20 Donavon Patricia MD [address] [place] [address] [phone] Home Care Provider Orthopedics 09/16/22 Rafi Fox APRN.CD REACTOR OPERATOR [address] [place] [address] [phone] Referring Orthopedics 09/16/22 Caustic Room Attendant Relationship Specialty Start Date End Date Christine Morgan APRN.CD REACTOR OPERATOR [address] [place] [address] [phone] PCP - General Family Medicine 02/10/20 Donavon Patricia MD [address] [place] [address] [phone] Home Care Provider Orthopedics 09/16/22 Rafi Fox APRN.CD REACTOR OPERATOR [address] [place] [address] [phone] Referring Orthopedics 09/16/22 Lory Chan, GRACE [address] [place] [address] Wanigan Clerk 06/17/2409/27 Caustic Room Attendant Relationship Specialty Start Date End Date Christine Morgan APRN.CD REACTOR OPERATOR [facility] [place] [address] PCP - General Family Medicine 02/10/20 Donavon Patricia MD [address] [place] [address] [phone] Home Care Provider Orthopedics 09/16/22 Rafi Fox APRN.CD REACTOR OPERATOR [address] [place] [address] [phone] Referring Orthopedics 09/16/22 Caustic Room Attendant Relationship Specialty Start Date End Date Christine Morgan APRN.CD REACTOR OPERATOR [address] [place] [address] PCP - General Family Medicine 02/10/20 Donavon Patricia MD [address] [place] [address] [phone] Home Care Provider Orthopedics 09/16/22 Rafi Fox APRN.CD REACTOR OPERATOR [address] [place] [address] [phone] Referring Orthopedics 09/16/22 Caustic Room Attendant Relationship Specialty Start Date End Date Christine Morgan APRN.CD REACTOR OPERATOR [address] [place] [address] [phone] PCP - General Family Medicine 02/10/20 Donavon Patricia MD [address] [place] [address] [phone] Home Care Provider Orthopedics 09/16/22 Rafi Fox APRN.CD REACTOR OPERATOR [address] [place] [address] [phone] Referring Orthopedics 09/16/22 Caustic Room Attendant Relationship Specialty Start Date End Date Christine Morgan APRN.CD REACTOR OPERATOR [address] [place] [address] PCP - General Family Medicine 02/10/20 Donavon Patricia MD [address] [place] [address] [phone] Home Care Provider Orthopedics 09/16/22 Rafi Fox APRN.CD REACTOR OPERATOR [address] [place] [address] [phone] Referring Orthopedics 09/16/22 Caustic Room Attendant Relationship Specialty Start Date End Date Christine Morgan APRN.CD REACTOR OPERATOR [address] [place], [place] 900471 PCP - General Family Medicine 02/10/20 Donavon Patricia MD [address] [place] [address] [phone] Home Care Provider Orthopedics 09/16/22 Rafi Fox APRN.CD REACTOR OPERATOR [address] [place] [address] [phone] Referring Orthopedics 09/16/22 Caustic Room Attendant Relationship Specialty Start Date End Date Christine Morgan APRN.CD REACTOR OPERATOR [address] [place], [place] [phone] PCP - General Family Medicine 02/10/20 Donavon Patricia MD [address] [place] [address] [phone] Home Care Provider Orthopedics 09/16/22 Rafi Fox APRN.CD REACTOR OPERATOR [address] [place] [address] [phone] Referring Orthopedics 09/16/22 FOR RECORDS PERTAINING TO PATIENTS WHO ARE OR HAVE BEEN ENROLLED IN A CHEMICAL DEPENDENCY/SUBSTANCEABUSE PROGRAM, SOME INFORMATION MAY BE OMITTED. This clinical summary was aggregated from multiple sources. Caution should be exercised in using it in the provision of clinical care. This summary normalizes information from multiple sources, and as a consequence, information in this document may materially change the coding, format and clinical context of patient data. In addition, data may be omitted in some cases. CLINICAL DECISIONS SHOULD BE BASED ON THE PRIMARY CLINICAL RECORDS. [facility]. provides no warranty or guarantee of the accuracy or completeness of information in this document.
[2025-01-28 17:57] LABS: Hematocrit 36.3 % (37-47); Hemoglobin 12.5 g/dL (12.0-15.0); Immature Granulocytes Count 0.090 X10^3/uL (0.0-0.0); Mean Corp Hgb Conc 34.4 g/dL (32-36); Mean Corpuscular Volume 91.0 fL (81-99); Mean Platelet Vol. 8.9 fl (6.2-12.0); NRBC Flagged by Analyzer 0 % (0-5); Platelet Count 374 K/mm3 (150-450); RBC Distribution Width CV 12.5 % (11.6-14.6); RBC Distribution Width SD 41.8 fl (35.1-43.9); Red Blood Count 3.99 M/mm3 (4.2-5.4); White Blood Count 7.5 K/mm3 (4.4-11.0)
[2025-01-28 18:00] VITALS: BMI 23.8
[2025-01-28] MEDS: 0.9% Normal Saline (1000mL) 1,000 ML 999 ML IV (18:00)
[2025-01-28 18:40] LABS: AST(SGOT) 35 U/L (<=31); Alanine Aminotransfer ALT/SGPT 22 U/L (<=34); Albumin, Serum 3.4 g/dL (3.4-4.8); Alkaline Phosphatase 96 U/L (35-104); Anion Gap 11 (5-15); BUN 14 mg/dL (4-19); BUN/Creat Ratio 13.0 RATIO (10-20); Bilirubin, Direct 0.21 mg/dL (0.00-0.30); Calcium,Total 8.6 mg/dL (7.6-11.0); Carbon Dioxide 22.8 mmol/L (21.0-32.0); Chloride 98 mmol/L (98-108); Estimated Creatinine Clearance 37.74 ml/min (50-250); Globulin 2.8 g/dL (2.2-4.2); Glucose 81 mg/dL (70-99); Lipase 10 U/L (13-75); Magnesium 1.7 mg/dL (1.5-2.2); Potassium 3.3 mmol/L (3.3-5.1)
--- NOTE | 2025-01-28 19:13 | EX.ED.DYSGE1 ---
HPI History of Present Illness Chief Complaint: General Illness Informant: patient and spouse/S.O. Narrative Narrative: Patient is a 74-year-old female with past medical history of hypertension and hypothyroidism. She states over the past 5 to 7 days she simply felt unwell. She states she has generalized fatigue with nausea and over the last 1 to 2 days is also now having bouts of loose stool/diarrhea. She denies any recent antibiotic use. She denies any recent travel outside the country. She denies any camping activity or livestock exposure. She also denies any known sick contact. She states that she went to the urgent care and they wanted to check laboratory values which they cannot do and therefore was sent to the ER for further evaluation. [facility] Medical History Diabetes type 2, controlled Depression Hypothyroid HTN (hypertension) MARIBEL (obstructive sleep apnea) Home Medications ?Medication ?Instructions ?Recorded ?Last Taken ?Type ondansetron 4 mg disintegrating 4 mg PO Q6H PRN nausea and 12/13/23 Unknown Rx tablet vomiting #14 tabs oxycodone-acetaminophen 5 mg-325 1 tab PO Q6H PRN pain 3 days #12 12/13/23 Unknown Rx mg tablet tabs dicyclomine 20 mg tablet 20 mg PO 4X/DAY PRN Abdominal 01/28/25 Unknown Rx pain/spasm #28 tabs Allergy/AdvReac Type Severity Reaction Status Date / Time No Known Allergies Allergy Verified 01/28/25 17:18 Social History Smoking Status: Never smoker [facility] ED Constitutional Constitutional ED: Reports other Details: Positive fatigue ; Denies chills or fever(s) ENT ENT ED: Denies rhinorrhea or sore throat Cardiovascular Cardiovascular: Denies chest pain Respiratory/Chest Respiratory/Chest: Denies cough or dyspnea Gastrointestinal Gastrointestinal: Reports abdominal pain, diarrhea and nausea; Denies vomiting Genitourinary Genitourinary ED: Denies dysuria Musculoskeletal Musculoskeletal: Reports myalgias Integumentary Denies rash Neurologic Neurologic: Reports weakness; Denies headache(s) or paresthesias Hematologic/Lymphatic Hematologic/Lymphatic: Denies easy bleeding or easy bruising EXAM Physical Exam Const Vital Signs: 01/28/25 17:17 Temperature 98 F Temperature Source Temporal Pulse Rate 90 Respiratory Rate 18 Blood Pressure 131/84 H Blood Pressure Mean 99 Pulse Ox 99 Oxygen Delivery Method Room Air Positive well nourished and well developed General Appearance ED: well developed; Negative for pallor HEENT Reports dry mucous membranes HEENT Narrative: Normocephalic atraumatic No tongue or lip swelling no oral lesions no airway edema or compromise No secondary findings in the posterior pharynx to suggest infection Mucous membranes are dry and tacky Mouth ED: Yes dry mucous membranes Mouth: dry mucous membranes Eyes PERRL and EOMs intact bilaterally General Eye ED: Negative for scleral icterus Neck supple Neck Narrative: No nuchal rigidity or meningeal signs noted Resp normal respiratory effort and clear to auscultation bilaterally Resp Narrative: Lungs are clear to auscultation throughout without nasal flaring retractions tachypnea or accessory muscle use. Cardio regular rate and regular rhythm Rate: other Other Details: Radial and carotid pulses are equal and symmetric GI non-distended and no masses GI Narrative: Abdomen is soft and nondistended with hyperactive bowel sounds. There is mild diffuse pain with palpation without voluntary guarding rigidity or pulsatile mass No peritoneal sign Auscultation: hyperactive bowel sounds Palpation: soft Back/Spine no CVA tenderness Extremity normal to inspection Extremity Narrative: No asymmetric edema no pitting edema negative Homans' sign bilaterally Neuro oriented x3, CN's II-XII intact bilaterally and no sensory deficits noted Sensorium / Orientation: alert Motor Exam: strength 5/5 throughout Psych mental status grossly normal Skin no rashes or lesions noted, no wounds and No skin turgor normal Skin Narrative: Skin turgor is increased General Skin Exam: Negative for jaundice or pallor MDM MDM MDM Narrative Medical decision making narrative: Patient arrived to the ER with stable vitals. She reported generalized fatigue with nausea and diarrhea. She denied any risk factors for infectious diarrhea such as Salmonella E. coli and C. difficile. However as she reported diarrhea with generalized fatigue I did elect to order a stool study. However patient states that the diarrhea has now stopped and cannot provide 1. She does have physical exam findings for dehydration and with concern for acute kidney injury or clinically significant electrolyte abnormality basic blood work was ordered. In order to assess for thyroid dysfunction TSH was obtained. In order to assess for biliary colic versus pancreatitis blood work was also ordered. Labs revealed no leukocytosis or left shift going against systemic infection. Creatinine is normal going against CHAVEZ. There is no clinically significant electrolyte abnormality. Liver enzymes are normal going against a biliary issue and lipase is normal going against pancreatitis. TSH was also within normal range going against a thyroid disorder. Therefore at this time her symptoms are most likely viral in nature and as her overall workup is negative and she has had improvement of symptoms with IV hydration and provided medication I do not feel the need for further intervention and she is otherwise safe for discharge History & Record Review Discussion w/independent historian: Patient and Significant other Lab Data Attestation: I reviewed the patient's lab results. Labs: Laboratory Results - last 24 hr 01/28/25 17:50 WBC 7.5 RBC 3.99 L Hgb 12.5 Hct 36.3 L MCV 91.0 MCH 31.3 MCHC 34.4 RDW Std Deviation 41.8 RDW Coeff of Abner 12.5 Plt Count 374 MPV 8.9 Immature Gran % (Auto) 1.200 H Neut % (Auto) 70.1 H Lymph % (Auto) 18.0 L [place] % (Auto) 8.3 Eos % (Auto) 1.3 Baso % (Auto) 1.1 H Absolute Neuts (auto) 5.3 Absolute Lymphs (auto) 1.35 Nucleated RBC % 0 Sodium 132 L Potassium 3.3 Chloride 98 Carbon Dioxide 22.8 Anion Gap 11 BUN 14 Creatinine 1.05 Estim Creat Clear Calc 37.74 L Est GFR (MDRD) Non-Af 56 L BUN/Creatinine Ratio 13.0 Glucose 81 Calcium 8.6 Magnesium 1.7 Total Bilirubin 0.36 Direct Bilirubin 0.21 AST 35 H ALT 22 Alkaline Phosphatase 96 Total Protein 6.2 Albumin 3.4 Globulin 2.8 Lipase 10 L TSH 3.070 Discharge Plan Triage Chief Complaint: General Illness ED Provider: Stephen Thapa Dx/Rx/DC Orders Clinical Impression: Viral syndrome, Dehydration, Hypertension, Hypothyroidism Instructions: ED Dehydration (Adult), ED Gastroenteritis, Viral (Adult) Prescriptions: New dicyclomine 20 mg tablet 20 mg PO 4X/DAY PRN (Reason: Abdominal pain/spasm) Qty: 28 0RF No Action oxycodone-acetaminophen 5-325 mg tablet 1 tab PO Q6H PRN (Reason: pain) 3 Days Qty: 12 0RF ondansetron 4 mg tablet,disintegrating 4 mg PO Q6H PRN (Reason: nausea and vomiting) Qty: 14 0RF Primary Care Provider: Christine Maria NP Referrals: Christine Maria NP, [employer] [Primary Care Provider, Medical] Activity Restrictions/Additional Instructions: Your workup today revealed no clinically significant findings. Your history and exam would indicate symptoms are related to a viral illness. This should resolve in the next 3 to 7 days. Keep yourself well-hydrated. If symptoms persist then you may need reevaluated in the ER or have a stool study to ensure that the diarrhea is not from an infectious source such as costume difficile or Salmonella. Print Language: Mexican Disposition Disposition: Home, Self Care Discharge Date/Time: 01/28/25 19:36
[2025-01-28 19:22] VITALS: BP 112/94; O2SAT 98
[2025-01-28 19:23] VITALS: BP 112/94; PULSE 74; RESP 16; TEMP 36.8; O2SAT 98
== END 2025-01-28 19:36 | disposition home or self-care (01) ==
PROVIDERS: Emergency Provider Emergency Medicine; PCP Registered Nurse; Visit Provider Emergency Medicine
DX: E11.9 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s (principal); I10 Essential (primary) hypertension; E03.9 Hypothyroidism, unspecified; B34.9 Viral infection, unspecified; E86.0 Dehydration; R19.7 Diarrhea, unspecified; R11.0 Nausea; R53.83 Other fatigue
CPT/HCPCS: 80048; 80076; 83690; 83735; 84443; 85025; 96360; 99283; A4216

== ENCOUNTER 2025-02-02 15:33 | Emergency (ER) | payer MEDICARE, SELFPAY ==
[2025-02-02 15:37] VITALS: BP 143/100; PULSE 92; RESP 18; TEMP 36.1; O2SAT 98; BMI 21.8
--- NOTE | 2025-02-02 15:54 | EDS_ITS ---
HPI History of Present Illness Chief Complaint: General Illness Narrative Narrative: Patient is a 74-year-old female presenting to the emergency department for multiple complaints. Patient has a past medical history of hypothyroidism, DM2, depression, MARIBEL and HTN. Patient was here on 01/28 for the same complaints. She was on her iPad of her complaints which include "nausea, insomnia, bitter taste, cannot eat, lost a lot of weight, lethargy, GERD is worse, explosive diarrhea lasting at least 3 days, sweaty especially at night, focus and memory, dizzy and shortness of breath". Patient states that the symptoms have been present for about a week and a half. Was started on methylphenidate about 6 weeks ago and she reports she is unsure if that is what is causing her symptoms. Denies any other new medications. Denies recent travel, hospitalizations. Denies any recent abx or new pets at home. Denies any sick contacts. Denies fever, chills, chest pain, sore throat, cough, dysuria or hematuria. Denies any vomiting. [facility] Medical History Diabetes type 2, controlled Depression Hypothyroid HTN (hypertension) MARIBEL (obstructive sleep apnea) Home Medications Medication Instructions Recorded Last Taken Type atorvastatin 20 mg tablet 20 mg PO DAILY cholesterol 1 04/04/24 02/01/25 History biotin 5 mg tablet 5 mg PO DAILY supplement 02/02/25 History bupropion HCl 300 mg 24 hr tablet, 300 mg PO DAILY dep ression 02/02/25 02/02/25 History extended release cephalexin 500 mg capsule 500 mg PO Q12 #14 CAPSULES 1 04/04/24 Unknown Rx esomeprazole magnesium 40 mg 40 mg PO BID gerd 5 02/02/25 History capsule,delayed release famotidine 20 mg tablet 20 mg PO BID gerd 02/02/25 1 04/04/24 History fluoxetine 40 mg capsule 40 mg PO BID depression 01/2102/02/25 History levothyroxine 100 mcg tablet 100 mcg PO DAILY thyroid 02/02/25 02/02/25 History (Synthroid) lisinopril 20 mg tablet 20 mg PO DAILY blood pressur e 02/02/25 02/01/25 History methylphenidate HCl 20 mg biphasic 20 mg PO DAILY focu s 02/02/25 02/01/25 History 50-50 capsule,extended release ondansetron 4 mg disintegrating 4 mg PO Q8H PRN PRN Na usea #10 tabs 02/02/25 Unknown Rx tablet scopolamine base 1 mg over 3 days 1 patch transdermal Q3D PRN nausea 02/02/25 02/02/25 History transdermal patch and vomiting trazodone 100 mg tablet 200 mg PO QHS PRN sleep 01/21 06/14 Unknown History Allergy/AdvReac Type Severity Reaction Status Date / Time No Known Allergies Allergy Verified 02/02/25 15:37 Social History Smoking Status: Never smoker ROS ROS ED ROS Narrative see HPI EXAM Physical Exam Narrative Exam Narrative: Vital signs: Reviewed General: Alert and oriented x 3. No acute distress. Well-appearing. HEENT: Head is normocephalic and atraumatic, sinuses nontender, pupils equal round and reactive. No scleral icterus. Nares are patent. Oropharynx and throat exams normal. Neck: Supple without lymphadenopathy nontender Cardiovascular: Regular rate and rhythm, no murmurs. No rubs or gallops. Normal S1 and S2 Respiratory: Clear to auscultation bilaterally. No wheezes, rales, rhonchi Abdominal: Soft and mildly tender to palpation in the suprapubic and left lower quadrant. Normal bowel sounds. No guarding or rebound. Nonsurgical abdomen Extremities: No lower extremity edema. No tenderness. No bruising. Normal range of motion. Normal sensation. Skin: No rash or redness. No jaundice. Neurological: Cranial nerves II through XII are grossly intact. Normal strength and sensation. Normal cerebellar function The rest of the physical exam is unremarkable Const Vital Signs: 02/02/25 15:37 02/02/25 16:11 02/02/25 17:36 Temperature 96.9 F L Temperature Source Temporal Pulse Rate 92 79 Respiratory Rate 18 Respiratory Pattern Normal Blood Pressure 143/100 H Blood Pressure Mean 114 Pulse Ox 98 99 Oxygen Delivery Method Room Air Room Air 02/02/25 18:48 02/02/25 19:52 Temperature 98.7 F 98.7 F Temperature Source Oral Pulse Rate 81 81 Respiratory Rate 18 18 Respiratory Pattern Blood Pressure 155/88 H 155/88 H Blood Pressure Mean 110 110 Pulse Ox 97 97 Oxygen Delivery Method Room Air MDM MDM MDM Narrative Medical decision making narrative: Patient is a 74-year-old female presenting to the emergency department for multiple complaints and can be seen in HPI. Patient was seen and examined. Vitals are stable. Patient resting in bed comfortably in no acute distress. Her visit from 01/28 were reviewed. Basic labs including CBC, CMP, lipase, TSH were obtained at that time and were unremarkable. Patient received fluids and was discharged home. CBC with a mild nonspecific leukocytosis of 12.6 and a normal hemoglobin of 12.3. Mild thrombocytosis, blood work appears hemoconcentrated, fluids are given. CMP with mildly elevated AST at 37 consistent and stable from 01/28 and a borderline elevated alk phos, no significant abnormalities. Lipase within normal limits. EKG shows NSR with LVH. No ischemic changes. No dysrhythmia. Prolonged QTc. Urinalysis with nitrates, leukocyte esterase, WBC and 3+ bacteria. Urine culture sent. Will treat for UTI. Viral swab negative. CT abd shows no acute findings in the abdomen or pelvis. Indeterminate cystic lesion in the pancreatic head measuring 2.7 x 1.9 x 1.9 cm. Small right hepatic cyst and right renal cysts. Partial gastrectomy with diffuse wall thickening of the stomach which may suggest gastritis. Bladder wall thickening may be due to underdistention or cystitis. Colonic diverticulosis without acute diverticulitis. Chest x-ray reviewed by myself, no opacities, pneumothorax or widened mediastinum. Radiology read in agreement with negative findings. I updated the patient on the lab and imaging findings. States that she is aware of the pancreatic cyst, hepatic cyst and renal cyst and follows up with her primary care doctor for these. She states that she is on Nexium and amantadine for her gastritis. It is recommended that she continue taking these as prescr ibed. Explained that I will prescribe her an antibiotic for home for her UTI. I also prescribed her Zofran to take as needed for nausea and vomiting. Patient discharged from the Emergency Department. I do not feel that the patient's evaluation reveals any acute reason for admission at this time. I instructed them to either follow-up with their primary care physician or promptly return to the Emergency Department for reevaluation should symptoms worsen or new symptoms develop. I explained what symptoms would indicate the need to return to the emergency department. Shared decision making was used. The patient voiced understanding of the treatment plan and is agreeable with it. Clinical impression Dehydration UTI Pancreatic cyst Hepatic cyst Renal cyst History & Record Review Discussion w/independent historian: Patient and Significant other Additional record(s) reviewed:: Prior ED visit and Prior labs Lab Data Attestation: I reviewed the patient's lab results. Labs: Laboratory Results - last 24 hr 02/02/25 02/02/25 16:15 17:35 WBC 12.6 H RBC 3.98 L Hgb 12.3 Hct 36.3 L MCV 91.2 MCH 30.9 MCHC 33.9 RDW Std Deviation 42.8 RDW Coeff of Abner 12.8 Plt Count 478 H MPV 8.7 Immature Gran % (Auto) 0.700 Neut % (Auto) 70.5 H Lymph % (Auto) 18.5 L [place] % (Auto) 8.7 Eos % (Auto) 0.8 Baso % (Auto) 0.8 Absolute Neuts (auto) 8.9 H Absolute Lymphs (auto) 2.32 Nucleated RBC % 0 Sodium 134 Potassium 3.7 Chloride 102 Carbon Dioxide 21.8 Anion Gap 10 BUN 18 Creatinine 0.91 Estim Creat Clear Calc 41.55 L Est GFR (MDRD) Non-Af 67 BUN/Creatinine Ratio 19.3 Glucose 115 H Calcium 8.7 Total Bilirubin 0.36 AST 37 H ALT 25 Alkaline Phosphatase 105 H Total Protein 6.3 Albumin 3.3 L Globulin 3.1 Albumin/Globulin Ratio 1.1 Lipase 16 Urine Color Yellow Urine Clarity Clear Urine pH 6.0 Ur Specific [place] 1.015 Urine Protein 15 H Urine Glucose (UA) Normal Urine Ketones Negative Urine Occult Blood Negative Urine Nitrite Positive H Urine Bilirubin Negative Urine Urobilinogen Normal Ur Leukocyte Esterase 25 H Urine RBC 0 SEEN Urine WBC 10-25 SEEN Ur Squamous Epith Cells 0-5 SEEN Urine Bacteria 3+ Urine Mucus 0 SEEN Radiography Diagnostic Testing: Clinical Impression(s) from Imaging Studies Abdomen/Pelvis CT 02/02/25 15:55 IMPRESSION: 1. No acute findings in the abdomen or pelvis. 2. Indeterminate cystic lesion in the pancreatic head measuring 2.7 x 1.9 x 1.9 cm. 3. Small right hepatic cyst and right renal cysts. 4. Partial gastrectomy with diffuse wall thickening of the stomach which may suggest gastritis. 5. Bladder wall thickening may be due to underdistention or cystitis. 6. Colonic diverticulosis without acute diverticulitis. Reading [facility] Chest X-Ray 02/02/25 17:44 IMPRESSION: NO ACUTE FINDINGS. Reading Location: [id number] Discharge Plan Triage Chief Complaint: General Illness ED Provider: Ashley Skinner Dx/Rx/DC Orders Clinical Impression: Gastritis, Acute UTI, Pancreatic cyst, Hepatic cyst, Renal cyst Instructions: UTIs, ED Gastritis (Adult) Prescriptions: New cephalexin 500 mg capsule 500 mg PO Q12 Qty: 14 0RF ondansetron 4 mg tablet,disintegrating 4 mg PO Q8H PRN PRN (Reason: Nausea) Qty: 10 0RF No Action fluoxetine 40 mg capsule 40 mg PO BID atorvastatin 20 mg tablet 20 mg PO DAILY lisinopril 20 mg tablet 20 mg PO DAILY levothyroxine [Synthroid] 100 mcg tablet 100 mcg PO DAILY famotidine 20 mg tablet 20 mg PO BID trazodone 100 mg tablet 200 mg PO QHS PRN esomeprazole magnesium 40 mg capsule,delayed release(DR/EC) 40 mg PO BID bupropion HCl 300 mg tablet extended release 24 hr 300 mg PO DAILY methylphenidate HCl 20 mg capsule,ER biphasic 50-50 20 mg PO DAILY biotin 5 mg tablet 5 mg PO DAILY scopolamine base 1 mg over 3 days patch 3 day 1 patch transdermal Q3D PRN (Reason: nausea and vomiting) Primary Care Provider: Christine Maria NP Referrals: Christine Maria NP, [employer]PA[employer] SUPERVISOR-[employer] [Primary Care Provider, Medical] - As soon as possible Activity Restrictions/Additional Instructions: Take antibiotics as prescribed. You can take the Zofran every 8 hours as needed for nausea and vomiting. Follow-up with your GI doctor including clinic for your gastritis. Follow-up with your primary care doctor for monitoring of your pancreatic, renal and hepatic cyst that were discussed and that you are aware of. Your evaluation in the Emergency Department did not reveal any acute reason for admission. However, I want to emphasize that you may be early in the course of a disease process or illness even if it is not present. For this reason you should follow-up within 24 hours for reevaluation with either your primary care physician or if necessary back here in the Emergency Department. You should return to the Emergency Department immediately if your symptoms worsen or new symptoms develop. Print Language: Turkish Disposition Disposition: Home, Self Care
--- NOTE | 2025-02-02 15:55 | EKG12_ITS ---
Test Reason : SOB Blood Pressure : */* mmHG Vent. Rate : 83 BPM Atrial Rate : 83 BPM P-R Int : 166 ms QRS Dur : 96 ms QT Int : 414 ms P-R-T Axes : 40 -9 -12 degrees QTcB Int : 486 ms Normal sinus rhythm Left ventricular hypertrophy with repolarization abnormality ( Home product ) QTcB >= 480 msec Abnormal ECG Confirmed by ABUNDIO MCGRATH, ALESSANDRA ([id number]), medical editor MASON FRYE ([id number]) on 02/06/2025 8:30:36 AM Referred By: Confirmed By: ALESSANDRA DEL CASTILLO MD
--- NOTE | 2025-02-02 15:55 | CT_ITS ---
PROCEDURE: ABDOMEN/PELVIS W IV CONT ONLY 02/02/2025 REASON FOR EXAM: N/V, DIARRHEA, WEIGHT LOSS TECHNIQUE: Procedure Code: [id number] Modality: CT Procedure: ABDOMEN/PELVIS W IV CONT ONLY Coronal and Sagittal reconstruction series were provided. CONTRAST: 100 cc of Isovue 370 One or more dose reduction techniques were used (e.g., Automated exposure control, adjustment of the mA and/or kV according to patient size, use of iterative reconstruction technique. COMPARISON: None available. FINDINGS: Lung bases: Unremarkable. Liver: Right hepatic cyst measures 1.3 x 1.1 x 0.7 cm. No obvious hepatic mass. Gallbladder: Unremarkable. No biliary ductal dilatation. Spleen: Normal size. Pancreas: Cystic lesion in the pancreatic head measures 2.7 x 1.9 x 1.9 cm. No surrounding inflammation or ductal dilatation. Adrenals: Unremarkable. Kidneys: Several right renal cysts, the largest measures 2.8 x 2.6 x 2.5 cm. No renal calculi or hydronephrosis. Bladder: Diffuse bladder wall thickening may be due to underdistention or cystitis. Reproductive Organs: Prior hysterectomy. Adnexal regions are unremarkable. Stomach/duodenum: Partial gastrectomy. Small hiatal hernia. Mild diffuse wall thickening of the remaining stomach may suggest gastritis. Fluid-filled duodenum. Bowel: Colonic diverticulosis without diverticulitis. No bowel obstruction. Appendix: The appendix is not identified. There is no inflammatory process identified in the right lower quadrant to suggest appendicitis. Lymph nodes: Unremarkable. Vasculature: The abdominal aorta and IVC are normal. Peritoneum / Retroperitoneum: No free fluid or air. Bones: Degenerative changes of the spine. No acute fractures. CT/Abdomen/Pelvis W IV Cont ONLY IMPRESSION: 1. No acute findings in the abdomen or pelvis. 2. Indeterminate cystic lesion in the pancreatic head measuring 2.7 x 1.9 x 1.9 cm. 3. Small right hepatic cyst and right renal cysts. 4. Partial gastrectomy with diffuse wall thickening of the stomach which may curry ggest gastritis. 5. Bladder wall thickening may be due to underdistention or cystitis. 6. Colonic diverticulosis without acute diverticulitis. Reading Location: [facility]
[2025-02-02] MEDS: 0.9% Normal Saline (1000mL) 1,000 ML 1000 ML IV (16:15)
[2025-02-02 16:26] LABS: Hematocrit 36.3 % (37-47); Hemoglobin 12.3 g/dL (12.0-15.0); Immature Granulocytes Count 0.090 X10^3/uL (0.0-0.0); Mean Corp Hgb Conc 33.9 g/dL (32-36); Mean Corpuscular Volume 91.2 fL (81-99); Mean Platelet Vol. 8.7 fl (6.2-12.0); NRBC Flagged by Analyzer 0 % (0-5); Platelet Count 478 K/mm3 (150-450); RBC Distribution Width CV 12.8 % (11.6-14.6); RBC Distribution Width SD 42.8 fl (35.1-43.9); Red Blood Count 3.98 M/mm3 (4.2-5.4); White Blood Count 12.6 K/mm3 (4.4-11.0)
[2025-02-02 17:34] LABS: AST(SGOT) 37 U/L (<=31); Alanine Aminotransfer ALT/SGPT 25 U/L (<=34); Albumin, Serum 3.3 g/dL (3.4-4.8); Alkaline Phosphatase 105 U/L (35-104); Anion Gap 10 (5-15); BUN 18 mg/dL (4-19); BUN/Creat Ratio 19.3 RATIO (10-20); Calcium,Total 8.7 mg/dL (7.6-11.0); Carbon Dioxide 21.8 mmol/L (21.0-32.0); Chloride 102 mmol/L (98-108); Estimated Creatinine Clearance 41.55 ml/min (50-250); Globulin 3.1 g/dL (2.2-4.2); Glucose 115 mg/dL (70-99); Lipase 16 U/L (13-75); Potassium 3.7 mmol/L (3.3-5.1)
[2025-02-02 17:36] VITALS: PULSE 79; O2SAT 99
[2025-02-02 17:40] LABS: Mucous, Urine 0 SEEN /hpf (<or=2+); Red Blood Cells-Urine 0 SEEN /hpf (0-5)
[2025-02-02 17:43] LABS: Color, Urine Yellow (Yellow); Glucose, Dipstick Normal (Normal); Ketone-Dipstick Negative (Negative); Leukocyte Esterase-Dipstick 25 /ul (Negative); Nitrite-Dipstick Positive (Negative); Occult Blood-Urine Negative /ul (Negative); Protein-Dipstick 15 mg/dl (Negative); Specific Gravity, Urine 1.015 (1.002-1.030); Urine Bilirubin Dipstick Negative (Negative)
--- NOTE | 2025-02-02 17:44 | RAD_ITS ---
PROCEDURE: CHEST PA AND LATERAL 02/02/2025 REASON FOR EXAM: SOB TECHNIQUE: Procedure Code: RADCXR Modality: DX Procedure: CHEST PA AND LATERAL COMPARISON: 12/13/2023. FINDINGS: The heart is normal in size. The lungs are clear. No acute osseous abnormalities. RAD/Chest PA and Lateral IMPRESSION: NO ACUTE FINDINGS. Reading Location: [id number]
[2025-02-02 17:51] LABS: Squamous Epithelial Cells - UA 0-5 SEEN /hpf (5-10)
[2025-02-02 18:48] VITALS: BP 155/88; PULSE 81; RESP 18; TEMP 37.1; O2SAT 97
[2025-02-02 19:52] VITALS: BP 155/88; PULSE 81; RESP 18; TEMP 37.1; O2SAT 97
== END 2025-02-02 19:56 | disposition home or self-care (01) ==
PROVIDERS: Emergency Provider Student in an Organized Health Care Education/Training Program; PCP Registered Nurse; Visit Provider Student in an Organized Health Care Education/Training Program
DX: N39.0 Urinary tract infection, site not specified (principal); E11.9 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s; E86.0 Dehydration; K86.2 Cyst of pancreas; I10 Essential (primary) hypertension; K29.70 Gastritis, unspecified, without bleeding; N28.1 Cyst of kidney, acquired; K76.89 Other specified diseases of liver; F32.A Depression, unspecified; Z79.899 Other long term (current) drug therapy; E03.9 Hypothyroidism, unspecified; Z79.890 Hormone replacement therapy; R06.02 Shortness of breath
CPT/HCPCS: 71046; 74177; 80053; 81001; 83690; 85025; 87077; 87086; 87088; 87186; 87631; 93005; 96361; 96365; 99284; Q9967; A4216